=== PATIENT | female | born 1950 | race Caucasian/White ===

== ENCOUNTER 2023-06-18 13:06 | Outpatient (OUT) | payer OTHER, SELFPAY ==
--- NOTE | 2023-06-18 13:13 | XR_ITS ---
[address] [address] Patient Name: KERMIT ALBERT MRN: [id number] date: 1950 Sex: F Assigned Patient Location: [facility] Current Patient Location: [facility] Accession/Order Number: [id number] Exam Date: 06/18/2023 14:21 Report Date: 06/18/2023 14:49 At the request of: AZAM CALDWELL Procedure: XR chest 2V EXAM: XR chest 2V HISTORY: CAD COMPARISON: None. TECHNIQUE: PA and lateral views of the chest. FINDINGS: The cardiomediastinal silhouette is normal. No focal consolidation is identified. There is no pneumothorax. No pleural effusion is noted. The osseous structures are intact. XR/XR chest 2V IMPRESSION: No acute cardiopulmonary process. Electronically authenticated by: ROEL DYER Date: 06/18/2023 14:49
--- NOTE | 2023-06-18 13:13 | ECG_ITS ---
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
[2023-06-18 14:29] LABS: Basophils Percent Auto 0.9 % (0.2-2.0); Eosinophils Absolute Auto 0.1 10^3/uL (0.0-0.7); Eosinophils Percent Auto 1.4 % (0.9-7.0); Hemoglobin 14.1 g/dL (12.0-16.0); Immature Granulocytes Abs Auto 0.01 10^3/uL (0.00-0.03); Immature Granulocytes Pct Auto 0.3 % (0.0-0.5); Lymphocytes Absolute Auto 1.2 10^3/uL (1.2-3.8); Lymphocytes Percent Auto 35.4 % (20.5-60.0); Mean Corpuscular HGB Conc 33.6 g/dL (29.9-35.2); Mean Corpuscular Hemoglobin 30.6 pg (26.7-34.0); Mean Corpuscular Volume 91.1 fL (81.0-99.0); Mean Platelet Volume 10.7 fL (9.5-13.5); Monocytes Absolute Auto 0.3 10^3/uL (0.3-0.8); Monocytes Percent Auto 7.8 % (1.7-12.0); Neutrophils Absolute Auto 1.9 10^3/uL (1.4-6.5); Neutrophils Percent Auto 54.2 % (43.0-75.0); Platelet Count 209 10^3/uL (150-450); Red Blood Count 4.61 10^6/uL (4.20-5.40); Red Cell Distribution Width 12.4 % (11.0-15.0); White Blood Count 3.5 10^3/uL (4.0-11.0)
[2023-06-18 15:29] LABS: INR 0.97; Partial Thromboplastin Time 29.1 sec (22.3-36.2); Prothrombin Time 10.3 sec (9.0-11.6)
[2023-06-18 15:46] LABS: BUN Creatinine Ratio 21.9; Carbon Dioxide 28.2 mmol/L (21.0-32.0); Chloride 106 mmol/L (98-107); Estimated GFR (African America >60 (>=60); Estimated GFR (Non-African Ame >60 (>=60); Glucose 87 mg/dL (74-106); Potassium 4.2 mmol/L (3.5-5.1); Sodium 142 mmol/L (136-145)
== END 2023-06-18 13:07 | disposition home or self-care (01) ==
LOC: PST 13:06
PROVIDERS: Visit Provider Obstetrics & Gynecology
DX: Z01.812 Encounter for preprocedural laboratory examination (principal); Z01.810 Encounter for preprocedural cardiovascular examination; Z01.811 Encounter for preprocedural respiratory examination; R93.89 Abnormal findings on diagnostic imaging of other specified body structures; I25.10 Atherosclerotic heart disease of native coronary artery without angina pectoris
CPT/HCPCS: 36415; 71046; 80048; 85025; 85610; 85730; 93005

== ENCOUNTER 2023-06-30 11:22 | Day surgery (SDC) | payer OTHER, SELFPAY ==
[2023-06-18 13:37] VITALS: BP 154/78; PULSE 64; RESP 18; TEMP 36.4; O2SAT 96; BMI 24.1
[2023-06-30] VITALS (9 sets, daily range): BP systolic 139–170; BP diastolic 71–91; PULSE 60–84; RESP 14–20; TEMP 36.1–36.6; O2SAT 94–96; BMI 23.7
[2023-06-30 12:31] LABS: Basophils Percent Auto 0.5 % (0.2-2.0); Eosinophils Absolute Auto 0.1 10^3/uL (0.0-0.7); Eosinophils Percent Auto 1.2 % (0.9-7.0); Hematocrit 43.1 % (36.0-48.0); Hemoglobin 14.4 g/dL (12.0-16.0); Immature Granulocytes Abs Auto 0.02 10^3/uL (0.00-0.03); Immature Granulocytes Pct Auto 0.5 % (0.0-0.5); Lymphocytes Absolute Auto 1.8 10^3/uL (1.2-3.8); Lymphocytes Percent Auto 41.4 % (20.5-60.0); Mean Corpuscular HGB Conc 33.4 g/dL (29.9-35.2); Mean Corpuscular Hemoglobin 30.4 pg (26.7-34.0); Mean Corpuscular Volume 90.9 fL (81.0-99.0); Mean Platelet Volume 11.2 fL (9.5-13.5); Monocytes Absolute Auto 0.4 10^3/uL (0.3-0.8); Monocytes Percent Auto 8.5 % (1.7-12.0); Neutrophils Percent Auto 47.9 % (43.0-75.0); Platelet Count 246 10^3/uL (150-450); Red Blood Count 4.74 10^6/uL (4.20-5.40); Red Cell Distribution Width 12.3 % (11.0-15.0); White Blood Count 4.2 10^3/uL (4.0-11.0)
[2023-06-30] MEDS: LACTATED RINGER'S SOLUTION 1,000 ML 50 ML IV (12:39)
[2023-06-30] MEDS: LACTATED RINGER'S SOLUTION 1,000 ML 150 ML IV (14:07)
--- NOTE | 2023-06-30 14:19 | PM.ONB ---
Brief Operative Note Date of procedure: 06/30/23 Pre-op diagnosis: thickend lining, pelvic pain, dyspareunia Post-op diagnosis: same Procedure: NAME OF PROCEDURE: [ D&c hysteroscopy with myosure, dx laparoscopy with dayami] PROCEDURE: The patient was taken back to the OR where she was prepped and draped in the normal sterile fashion after being placed in the dorsal lithotomy position, after being placed under general anesthesia without difficulty. a weighted speculum was then placed into the vagina. Pap and endometrial bx were performed without difficultyThe anterior lip was grasped with a single tooth tenaculum. The patient was then sounded to approximatley 9cm. The patient was gently sounded using Hegar dilators and the hysteroscope was passed through the cervix into the uterus where both ostia were seen.The myosure was used to obtain directly visualized endometrial tissue. Ecc was performed. all instruments were removed from the patients vagina. A wet sponge stick was placed into the patient's vagina. Attention was then turned to the patient's abdomen, where a scalpel was used to make a small infraumbilical incision. The S retractors were then used to dissect the underlying layers until the fascia could be seen. The fascia was then grasped with Dell clamps and tented up. A knife was then used to make a small incision to the fascia. The muscle was identified, at that time two sutures of #0 Vicryl on a GI needlewas then used and placed through the fascia. The peritoneum was then identified and entered bluntly. The 10-4 Inocencio was then placed into the patient's abdomen. This was confirmed with direct visualization of the bowel, using the laparoscope. The patient's abdomen was then insufflated using approximately 4 liters of CO2 gas. Survey of the patient's abdomen demonstrated normal appearing ovaries, uterus and tubes. A lt lateral port which was 5mm in size, was then placed laterally after incision was made in the skin under direct visualization. lysis of omental adhesion from anterior abdominal wall was performed, normal appearing ovaries uterus and evidence of bilateral tubal ligation. The abdomen was deinsufflated. All instruments were removed from the patient's abdomen. The fascia was closed using the #0 Vicryl on GI needle. The skin was closed using 4-0 Vicryl subcuticularly. All instruments were removed from the patient's vagina as well. The patient was taken out of the dorsal lithotomy position and placed in the supine position and taken to recovery in stable condition. Sponge, lap and needle counts were correct x2. ??? Anesthesia: BRANT Surgeon: Ryley Marinelli Squaring Shear Operator: Leatha Mendoza Estimated blood loss (mL): 5 Pathology: other (endometrial and endocervical currettings) Condition: stable Disposition: PACU
[2023-06-30] MEDS: HYDROMORPHONE HCL 0.5 MG/0.5 ML SYRINGE IV (14:31)
== END 2023-06-30 15:31 | disposition home or self-care (01) ==
PROVIDERS: Visit Provider Obstetrics & Gynecology
PROC: (CPT 49320; principal; 2023-06-30 12:30)
DX: N94.10 Unspecified dyspareunia (principal); R10.2 Pelvic and perineal pain; R93.89 Abnormal findings on diagnostic imaging of other specified body structures; F41.9 Anxiety disorder, unspecified; Z85.3 Personal history of malignant neoplasm of breast; K21.9 Gastro-esophageal reflux disease without esophagitis; I10 Essential (primary) hypertension; I25.10 Atherosclerotic heart disease of native coronary artery without angina pectoris; E55.9 Vitamin D deficiency, unspecified; Z79.899 Other long term (current) drug therapy
CPT/HCPCS: 49320; 58558; 36415; 85025; 88305; J1170; J2704

== ENCOUNTER 2023-08-11 11:13 | Outpatient (OUT) | payer OTHER, SELFPAY ==
--- NOTE | 2023-08-11 11:29 | XR_ITS ---
[address] [address] Patient Name: KERMIT ALBERT MRN: [id number] date: 1950 Sex: F Assigned Patient Location: [facility] Current Patient Location: [facility] Accession/Order Number: [id number] Exam Date: 08/11/2023 11:20 Report Date: 08/11/2023 16:59 At the request of: AZAM CALDWELL Procedure: XR DEXA axial skeleton EXAMINATION: XR DEXA axial skeleton, 08/11/2023 11:20 AM EDT HISTORY: Post Menopausal State Z78.0 COMPARISON: 2020 TECHNIQUE: Dual-energy X-ray absorptiometry (DEXA) bone density study performed for the axial skeleton. HISTORY: Post Menopausal State Z78.0 FINDINGS: Bone mineral density AP spine L2-L4 measures 0.747 g/sq cm. T score -3.8. WHO classification: Osteoporosis. Total femoral bone mineral density measures 0.678 g/sq cm. T score -2.6. WHO classification: Osteoporosis XR/XR DEXA axial skeleton IMPRESSION: Osteoporosis. High fracture risk Electronically authenticated by: HARMAN LEMONS Date: 08/11/2023 16:59
== END 2023-08-11 11:14 | disposition home or self-care (01) ==
LOC: RAD 11:13
PROVIDERS: Visit Provider Obstetrics & Gynecology
DX: Z78.0 Asymptomatic menopausal state (principal); M81.0 Age-related osteoporosis without current pathological fracture
CPT/HCPCS: 77080

== ENCOUNTER 2024-05-18 20:05 | Outpatient (REF) | payer OTHER, SELFPAY ==
[2024-05-22 11:10] LABS: Age Gdln ACOG Testing Note (.); Pap IG (Image Guided) Note (.)
== END 2024-05-18 20:06 | disposition home or self-care (01) ==
LOC: LAB 20:05
PROVIDERS: Visit Provider Obstetrics & Gynecology
DX: Z01.419 Encounter for gynecological examination (general) (routine) without abnormal findings (principal)
CPT/HCPCS: 88175

== ENCOUNTER 2024-07-12 09:52 | Outpatient (OUT) | payer OTHER, SELFPAY ==
--- NOTE | 2024-07-12 09:55 | US_ITS ---
[address] [address] Patient Name: KERMIT ALBERT MRN: [id number] date: 1950 Sex: F Assigned Patient Location: [place] Current Patient Location: Accession/Order Number: [id number] Exam Date: 07/12/2024 09:56 Report Date: 07/14/2024 05:03 At the request of: ELEONORA FREY Procedure: US pelvis w/ transvaginal EXAMINATION: US pelvis w/ transvaginal HISTORY: Menorrhagia With Regular Cycle N92.0 COMPARISON: No relevant comparison available. TECHNIQUE: Transabdominal and/or transvaginal sonographic examination was performed as indicated by examination type. FINDINGS: UTERUS: Rounded heterogeneous masslike area with a few peripheral calcifications within the cervix, 1.0 x 1.0 x 1.0 cm. No appreciable internal blood flow on color Doppler so this could represent a complex nabothian cyst. Uterus size: 4.4 x 2.5 x 3.6 cm ENDOMETRIUM: Abnormally thickened and slightly heterogeneous. Endometrial thickness: 16 mm RIGHT OVARY: Not seen. No suspicious adnexal findings. LEFT OVARY: Not seen. No suspicious adnexal findings. . CUL-DE-SAC: Unremarkable. No significant free fluid. BLADDER: Unremarkable. OTHER: None. US/US pelvis w/ transvaginal IMPRESSION: 1. Abnormal endometrial thickening; endometrial hyperplasia versus neoplasm. 2. Within the cervix is a 1.0 cm mass versus complex cyst. Appearance favors a mass. Electronically authenticated by: IDALIA GUEVARA Date: 07/14/2024 05:03
--- NOTE | 2024-07-12 10:00 | US_ITS ---
Patient Name: KERMIT ALBERT MR#: [id number] : 1950 Exam Date: 07/12/2024 Ordering Doctor: DIEGO Kebede . RADIOLOGY REPORT PROCEDURE: US BREAST BI COMPLETE COMPARISON: None. INDICATIONS: Breast Cancer Screening, Disorder Of Breast TECHNIQUE: Breast ultrasound was performed, with evaluation focusing only on specific areas of concern. FINDINGS: DIAGNOSTIC CATEGORY 0--INCOMPLETE: NEED ADDITIONAL IMAGING EVALUATION. Identified at the 10 o'clock position of the right breast is increase in size of ill-defined hypoechogenicity now measuring 1.0 x 0.4 x 0.5 cm with acoustic shadowing. Adjacent to this area is what appears to be a normal-size normal morphology lymph node measuring 4.1 mm. Mammogram follow-up is recommended Ultrasound of the left breast demonstrates no focal abnormality RECOMMENDATIONS: ADDITIONAL MAMMOGRAPHIC VIEWS REQUIRED: BILATERAL diagnostic mammogram PLEASE NOTE: A NORMAL ULTRASOUND EXAMINATION DOES NOT EXCLUDE THE POSSIBILITY OF BREAST CANCER. A CLINICALLY SUSPICIOUS PALPABLE LUMP SHOULD BE BIOPSIED. Dictated by: Riccardo Venegas MD on 07/12/2024 at 11:07 Approved by: Riccardo Venegas MD on 07/12/2024 at 11:10
[2024-07-12 11:38] LABS: Basophils Percent Auto 0.4 % (0.2-2.0); Eosinophils Absolute Auto 0.1 10^3/uL (0.0-0.7); Eosinophils Percent Auto 1.8 % (0.9-7.0); Hemoglobin 13.4 g/dL (12.0-16.0); Lymphocytes Absolute Auto 1.7 10^3/uL (1.2-3.8); Lymphocytes Percent Auto 37.5 % (20.5-60.0); Mean Corpuscular HGB Conc 33.5 g/dL (29.9-35.2); Mean Corpuscular Hemoglobin 30.6 pg (26.7-34.0); Mean Corpuscular Volume 91.3 fL (81.0-99.0); Mean Platelet Volume 10.5 fL (9.5-13.5); Monocytes Absolute Auto 0.3 10^3/uL (0.3-0.8); Monocytes Percent Auto 6.1 % (1.7-12.0); Neutrophils Absolute Auto 2.4 10^3/uL (1.4-6.5); Neutrophils Percent Auto 54.2 % (43.0-75.0); Platelet Count 217 10^3/uL (150-450); Red Blood Count 4.38 10^6/uL (4.20-5.40); Red Cell Distribution Width 12.4 % (11.0-15.0); White Blood Count 4.5 10^3/uL (4.0-11.0)
[2024-07-12 11:49] LABS: Estimated Average Glucose 105 mg/dL; Glycohemoglobin A1C 5.3 % (4.5-6.2)
[2024-07-12 12:00] LABS: Partial Thromboplastin Time 31.8 sec (22.3-36.2); Prothrombin Time 10.6 sec (9.0-11.6)
[2024-07-12 12:31] LABS: Free T4 0.81 ng/dL (0.76-1.46)
[2024-07-12 12:37] LABS: Thyroid Stimulating Hormone 2.668 uIU/mL (0.358-3.740)
[2024-07-12 12:40] LABS: HCG Quantitative <1 mIU/mL
== END 2024-07-12 09:53 | disposition home or self-care (01) ==
LOC: US 09:52
PROVIDERS: Visit Provider Physician Assistant
DX: N92.0 Excessive and frequent menstruation with regular cycle (principal); N93.0 Postcoital and contact bleeding; N64.9 Disorder of breast, unspecified; R19.00 Intra-abdominal and pelvic swelling, mass and lump, unspecified site
CPT/HCPCS: 36415; 76641; 76830; 76856; 83036; 84439; 84443; 84702; 85025; 85610; 85730; 86304

== ENCOUNTER 2024-09-10 10:48 | Outpatient (OUT) | payer OTHER, SELFPAY ==
--- NOTE | 2024-09-10 10:53 | XR_ITS ---
The [address] [address] Patient Name: KERMIT ALBERT MRN: [id number] date: 1950 Sex: F Assigned Patient Location: [facility] Current Patient Location: Accession/Order Number: [id number] Exam Date: 09/10/2024 11:38 Report Date: 09/12/2024 06:19 At the request of: AZAM CALDWELL Procedure: XR chest 2V EXAMINATION: XR chest 2V HISTORY: Preop exam COMPARISON: XR chest 06/18/2023 FINDINGS: LUNGS: No significant pulmonary parenchymal abnormalities. VASCULATURE: No increased pulmonary vasculature. PLEURA: No pneumothorax, effusion, or pleural thickening. CARDIAC: No cardiomegaly or cardiac silhouette abnormality. MEDIASTINUM: No visible mass or adenopathy. BONES: Kyphotic curvature thoracic spine. OTHER: Negative. XR/XR chest 2V IMPRESSION: 1. No acute cardiopulmonary process. Stable chest. Electronically authenticated by: IDALIA GUEVARA Date: 09/12/2024 06:19
--- NOTE | 2024-09-10 10:53 | ECG_ITS ---
The [facility] Test Date: 2024-09-10 Pat Name: KERMIT ALBERT Department: Room: - Gender: Female Rippler: : 1950 Requested By: AZAM CALDWELL Order Number: [id number] Reading MD: RAFAEL BUNCH Measurements Intervals [place] Rate: 59 P: 50 [place]: 171 QRS: 30 QRSD: 90 T: 55 QT: 420 QTc: 417 Interpretive Statements SINUS BRADYCARDIA Compared to ECG 06/18/2023 13:58:14 No significant changes Electronically Signed On 09-10-2024 18:34:23 EDT by RAFAEL BUNCH
--- OUTSIDE RECORDS SUMMARY | 2024-09-10 10:53 | XMS_ITS | CCD ---
Author Organization [facility] Care Team Providers Care Database Programmer Analyst Name Role Phone CRIS VALENZUELA Unavailable Unavailable CRIS VALENZUELA Unavailable Unavailable CRIS VALENZUELA Unavailable Unavailable Cristin Roblero Unavailable Unavailable Unavailable Malinda Rubio Primary Care Physician [phone] TYRELL ., DR DELGADO Consulting Unavailabl e KARASIK ., DR DELGADO Attending Unavailabl e KARASIK ., DR DELGADO Admitting Unavailabl e QUINCYK ., DR DELGADO Attending Unavailabl e QUINCYK ., DR DELGADO Admitting Unavailashish TODD, DR DANNY Murphy Primary Care Unavailable KARASIK ., DR DELGADO Consulting Unavailabl e KARBESSIEK ., DR DELGADO Attending Unavailabl e KARBESSIEK ., DR DELGADO Admitting Unavailashish TODD, DR DANNY Murphy Primary Care Unavailable PAOLA, DR IDALIA Smith Consulting Unavailable PEREZ, DR DANNY Murphy Consulting Unavailable KARASIK ., DR DELGADO Attending Unavailabl e KARBESSIEK ., DR DANNY Ericksonitting Unavailashish TODD, DR DANNY Murphy Primary Care Unavailable KARASIK ., DR DELGADO Consulting Unavailabl e PAOLA, DR IDALIA Smith Consulting Unavailable Osbaldo SEWELL Cristin M Primary Care Provider ANIKA De La Rosa Primary Care Provide r MD Jay Jay Mariscal Attending Provider Camryn De La Rosa Unavailable [phone] Ms. Camryn De La Rosa Primary Care Unava ilford Mariscal, Dr. Jay Jay Lewis Attending Kimberley vailable Davey, Dr. Jay Jay Lewis Referring Kimberley vailable Camryn De La Rosa Primary Care Physician Vilma Mcallister Primary Care Physician Ryley Marinelli Attending Provider aggieANIKA Camryn Murry Primary Care Provide r Camryn De La Rosa Primary Care Unavailab Ryley Kennedy Admitting Unavailable Ryley Marinelli Attending Unavailable Camryn De La Rosa Primary Care Unavailab Jay Jay Vicente Admitting Unavailable Jay Jay Mariscal Attending Unavailable Vilma Mcallister Attending Unavailable Shayla Mcallisterbeth Miguel Admitting Unavailable Shayla Mcallisterbetisha Rivera Attending Unavailable Esvin Vilma L Admitting Unavailable Esvin, Vilma L Admitting Unavailable Bhavna Mcallisterzabeth Miguel Attending Unavailable Bhavna Mcallisterzabeth L Attending Unavailable Esvin, Vilma L Admitting Unavailable Bhavna Mcallisterzabeth Miguel Attending Unavailable Esvin, Vilma L Admitting Unavailable Esvin, Vilma L Attending Unavailable TRACI De La Rosa Admitting Kimberley vailable TRACI De La Rosa Attending Kimberley vailable Shayla Mcallisterbeth Miguel Attending Unavailable Esvin, Vilma L Referring Unavailable Esvin, Vilma L Admitting Unavailable Esvin, Vilma L Attending Unavailable Esvin, Vilma L Referring Unavailable Esvin, Vilma L Admitting Unavailable Bhavna Mcallisterzabeth Miguel Attending Unavailable Esvin, Vilma L Attending Unavailable Esvin, Vilma L Attending Unavailable Esvin, Vilma L Referring Unavailable Esvin, Vilma L Admitting Unavailable Scott Tomas V. Attending UnavailTRACI Denny Attending Unav ailable Vilma Mcallister Attending Unavailable TRACI De La Rosa Attending Kimberley vailable TRACI De La Rosa Attending Kimberley vailable Shayla Mcallisterbeth L Attending Unavailable Bhavna Mcallisterzabeth Miguel Attending Unavailable Esvin, Vilma L Attending Unavailable Esvin, Vilma L Attending Unavailable Esvin, Vilma L Attending Unavailable Vilma Mcallister Attending Unavailable Vilma Mcallister Attending Unavailable Vilma Mcallister Attending Unavailable NORMA VARGAS Attending Unavailable RYLEY MARINELLI Attending Unavailable ELEONORA FRYE Attending Unavailable LAWRENCE ROQUE Attending Unavailable RYLEY MARINELLI Attending Unavailable NORMA VARGAS Attending Unavailable Allergies Allergy Classification Reported Allergen(s) Allergy Type Date of Onset Reaction(s) Facility Angiotensin Converting Enzyme (CARMELINA) Inhibitors (2 sources) Lisinopril; Translations: [lisinopril] Drug Allergy Unknown (qualifier value) [facility] Doxycycline (2 sources) Doxycycline; Translations: [doxycycline] Drug Allergy Mycosis (disorder) [facility] hydroCHLOROthiazide (2 sources) hydroCHLOROthiazide; Translations: [hydrochlorothiazide] Drug Allergy Disorder of electrolytes (disorder) [facility] Hydroflumethiazide (1 source) Hydroflumethiazide; Translations: [hydroflumethiazide] Drug Allergy [facility] Rep[facility] NSAIDs (4 sources) Diclofenac; Translations: [diclofenac] Drug Allergy Hypertensive disorder, systemic arterial (disorder) [facility] [place] Propranolol (2 sources) Propranolol; Translations: [propranolol] Drug Allergy hives [facility] Serotonin Reuptake Inhibitors (SSRIs) (4 sources) Citalopram; Translations: [citalopram] Drug Allergy Unknown (qualifier value) [facility] Unclassified (2 sources) No Known Medication Allergies; Translations: [No Known Medication Allergies] Propensity to adverse reactions (disorder) [facility] Repository (7 sources) atorvastatin; Translations: [atorvastatin] Drug Allergy [facility] [employer] 250 DO Work Phone: (20 sources) Citalopram; Translations: [CeleXA TABS] Drug Allergy 021 Unknown (qualifier value), Unknown [facility] [employer] 250 DO Work Phone: (20 sources) Diclofenac; Translations: [diclofenac] Drug Allergy Hypertensive disorder, [facility]: (20 sources) Doxycycline; Translations: [doxycycline] Drug Allergy Mycosis (disorder), Unknown [facility] [employer] 250 DO Work Phone: (20 sources) hydroCHLOROthiazide; Translations: [hydrochlorothiazide] Drug Allergy Disorder of electrolytes (disorder) [facility] [employer] 250 DO Work Phone: (20 sources) Lisinopril; Translations: [lisinopril] Drug Allergy Unknown (qualifier value), Intolerance [facility] [employer] 250 DO Work Phone: (20 sources) Propranolol; Translations: [propranolol] Drug Allergy hives, Unknown Reaction [facility] [employer] 250 DO Work Phone: (2 sources) Diclofenac; Translations: [diclofenac sodium] Drug Allergy Intolerance [facility] (1 source) Thiazides Propensity to adverse reactions to drug Unknown [facility] (3 sources) Citalopram; Translations: [citalopram] Drug Allergy Muscle Pain [facility] (1 source) hydroCHLOROthiazide Drug Allergy [facility] (1 source) Lisinopril Drug Allergy [facility] (1 source) Propranolol Drug Allergy [facility] (1 source) Citalopram; Translations: [Citalopram Hydrobromide] Drug Allergy [facility] Rep[facility] (1 source) Citalopram; Translations: [CeleXA] Drug Allergy [facility] (1 source) Diclofenac; Translations: [Voltaren Topical] Drug Allergy [facility] Rep[facility] (1 source) Hydroflumethiazide; Translations: [hydroflumethiazide] Drug Allergy [facility] Rep[facility] Medications Current Medications Medication Drug Class(es) Dates Sig (Normalized) Sig (Original) Albuterol (Eqv-Ventolin HFA) 90 mcg/inh inhalation aerosol (2 sources) Start: 09-04-2023 take 2 puff(s) by inhalation every six hours Albuterol (Eqv-Ventolin HFA) 90 mcg/inh inhalation aerosol 2 puff(s), Inhalation, q6hr, 18 gm, Refill(s) 0, [facility], 154, cm, 09/04/23 9:44:00 EDT, Height/Length Dosing, 56.1, kg, 09/04/23 9:44:00 EDT, Weight Dosing Start Date: 09/04/23 Status: Ordered ALPRAZolam 0.25 mg oral tablet (20 sources) Benzodiazepine Start: 09-26-2023 take 1 tablet by mouth once daily as needed alprazolam 0.25 mg Tab 0.25 mg = 1 tab(s), Oral, Daily, PRN for insomnia, # 12 tab(s), Refills(s) 0, Pharmacy: [facility], 154, cm, 09/26/23 9:41:00 EDT, Height/Length Dosing, 57.6, kg, 09/26/23 9:41:00 EDT, Weight Dosing Start Date: 09/26/23 Status: Ordered Start: 11-09-2020 End: 12-11-2022 take 1 tablet by mouth once daily as needed ALPRAZolam 0.25 MG Oral Tablet TAKE 1 TABLET DAILY NEEDED. Quantity: 0 Refills: 0 Ordered: 09-Nov-2020 DO Start : 09-Nov-2020 Active Start: 07-29-2019 End: 07-29-2019 take 0.5 mg by mouth three times daily Alprazolam Active 0.5 MG PO Three times daily 0 July 29, 2019 2:10pm Comment on above: Take 0.25 mg by mout h as needed. amLODIPine 5 mg oral tablet (2 sources) Dihydropyridine Calcium Channel Vishnu Start: 9 take 1 tablet by mouth once daily amLODIPine 5 mg Tab 5 mg = 1 tab(s), Oral, Daily, # 30 tab(s), Refills(s) 0, High blood pressure Start Date: 11/15/19 Status: Ordered aspirin 81 mg oral tablet (20 sources) Platelet Aggregation Inhibitor, Nonsteroidal Anti-inflammatory Drug Start: 9 take 1 tablet by mouth once daily aspirin 81 mg oral tablet = 1 tab(s), Oral, Daily, Refills(s) 0 Start Date: 01/26/21 Status: Ordered Aspirin 81 MG Or al Tablet Delayed Release 1 tablet Friday and Friday Quantity: 45 Refills: 3 Ordered: 15-Jul-2023 Jay Jay Mariscal MD Active fill if needed Comment on above: Take 81 mg by mouth once daily. azithromycin 250 mg oral tablet (1 source) Macrolide Antimicrobial Start: End: Zithromax 250 mg Tab = 1 packet(s), Oral, As Directed, as directed on package labeling, X 5 day(s), # 6 tab(s), Refills(s) 0, Pharmacy: [facility], 154, cm, 09/24/22 12:01:00 EDT, Height/Length Dosing, 56.5, kg, 09/24/22 12:01:00 EDT, Weight Dosing Start Date: 09/24/22 Stop Date: 09/29/22 Status: Ordered benzonatate 100 mg oral capsule (1 source) Non-narcotic Antitussive Start: End: take 1 capsule by mouth three times daily Tessalon 100 mg Cap 100 mg = 1 cap(s), Oral, TID, X 7 day(s), # 21 cap(s), Refills(s) 0, Pharmacy: [facility], 154, cm, 12/17/22 11:54:00 EST, Height/Length Dosing, 57, kg, 12/17/22 11:54:00 EST, Weight Dosing Start Date: 12/17/22 Stop Date: 12/24/22 Status: Ordered brompheniramine maleate 0.4 mg/ml / dextromethorphan hydrobromide 2 mg/ml / pseudoephedrine hydrochloride 6 mg/ml oral solution (20 sources) alpha-Adrenergic Agonist, Uncompetitive N-xbovqx-B-aspartate Receptor Antagonist, Sigma-1 Agonist Start: take 5 mL by mouth four times daily for cough and congestion Bromfed DM oral syrup 5 mL, Oral, QID for cough and congestion, 200 mL, Refill(s) 0, [facility], 154, cm, 04/14/24 9:52:00 EDT, Height/Length Dosing, 56, kg, 04/14/24 9:52:00 EDT, Weight Dosing Start Date: 04/14/24 Status: Ordered Elderberry Gummies with Vitamin C and Zinc (5 sources) Start: 024 Elderberry Gummies with Vitamin C and Zinc 1 tablet, Chewed, Daily, Refill(s) 0 Start Date: 05/12/24 Status: Ordered Elderberry preparation (7 sources) Start: 023 elderberry Refill(s) 0 Start Date: 10/30/23 Status: Ordered estradiol 0.1 mg/ml vaginal cream (2 sources) Estrogen Start: 021 Estrace 0.1 mg/g Cream See Instructions, 42.5 gm, Refill(s) 0, 0.5 to 1 gm Vaginal 1-2 x per week at bed time., [facility], 155, cm, 12/12/20 12:23:00 EST, Height/Length Dosing, 58.6, kg, 12/12/20 12:23:00 EST, Weight Dosing Start Date: 12/12/20 Status: Ordered Fish Oils (2 sources) Start: 019 take 1 capsule by mouth twice daily Fish Oil 1000 mg oral capsule 1,000 mg = 1 cap(s), Oral, BID, Refills(s) 0, Prophylaxis Start Date: 04/27/19 Status: Ordered fluconazole 100 mg oral tablet (2 sources) Azole Antifungal Start: 023 Diflucan 100 mg Tab 100 mg = 1 tab(s), Oral, Daily, take once if needed and may repeat if needed, # 2 tab(s), Refills(s) 0, Pharmacy: [facility], 154, cm, 09/04/23 9:44:00 EDT, Height/Length Dosing, 56.1, kg, 09/04/23 9:44:00 EDT, Weight Dosing Start Date: 09/04/23 Status: Ordered Garlic preparation (20 sources) Non-Standardized Food Allergenic Extract Start: 022 Garlic See Instructions, 1 tab daily OTC Start Date: 09/12/22 Status: Ordered H-HTP 100 mg (1 source) Start: H-HTP 100 mg H-HTP 100 mg, See Instructions, 5-HTP 100mg (Neurotransmitter Support). For Depression Start Date: 07/09/24 Status: Ordered hydrOXYzine hydrochloride 50 mg oral tablet (1 source) Antihistamine Start: take 1 tablet by mouth four times daily as needed for anxiety, then take 0.5 tablet by mouth every hour as needed for anxiety hydrOXYzine hydrochloride 50 mg oral tablet 50 mg = 1 tab(s), Oral, QID, PRN for anxiety, Can cut tab in half if needed Take 1 hr prior to bed, # 40 tab(s), Refills(s) 1, Pharmacy: [facility], 154, cm, 08/19/23 11:14:00 EDT, Height/Length Dosing, 58, kg, 08/19/23 11:14:00 EDT, Weigh... Start Date: 08/19/23 Status: Ordered ibuprofen 800 mg oral tablet (10 sources) Nonsteroidal Anti-inflammatory Drug Start: take 1 tablet by mouth three times daily as needed for pain ibuprofen 800 mg Tab 800 mg = 1 tab(s), Oral, TID, PRN for pain, # 90 tab(s), Refills(s) 0, Pharmacy: [facility] 1985 Start Date: 07/09/19 Status: Ordered Iodine (14 sources) Start: 023 iodine Refills(s) 0 Start Date: 10/30/23 Status: Ordered Ivermectin (9 sources) Antiparasitic, Pediculicide Start: take 12 mg by mouth once ivermectin 12 mg, Oral, Once, Refills(s) 0 Start Date: 04/14/24 Status: Ordered Start: 03-01-2021 take 3 tablets by mouth once i vermectin 3 mg oral tablet 9 mg = 3 tab(s), Oral, Once, # 3 tab(s), Refills(s) 0, Pharmacy: [facility] 1985, 154.9, cm, 02/19/21 14:27:00 EDT, Height/Length Dosing, 57, kg, 02/19/21 14:27:00 EDT, Weight Dosing Start Date: 03/01/21 Status: Ordered ketoconazole 10 mg/ml medicated shampoo (8 sources) Azole Antifungal Start: 09-12-2022 ketoconazole topical 1% shampoo 1 christiano, Topical, q3day, 210 mL, Refill(s) 1, [facility], 154, cm, 09/12/22 10:34:00 EDT, Height/Length Dosing, 56.4, kg, 09/12/22 10:34:00 EDT, Weight Dosing Start Date: 09/12/22 Status: Ordered levoFLOXacin 750 mg oral tablet (2 sources) Quinolone Antimicrobial Start: 05-06-2024 End: 05-13-2024 take 1 tablet by mouth once daily Levaquin 750 mg Tab 750 mg = 1 tab(s), Oral, Daily, X 7 day(s), # 7 tab(s), Refills(s) 0, Pharmacy: [facility] 1985, 154, cm, 05/06/24 15:09:00 EDT, Height/Length Dosing, 55.1, kg, 05/06/24 15:22:00 EDT, Weight Dosing Start Date: 05/06/24 Stop Date: 05/13/24 Status: Ordered levothyroxine sodium 0.075 mg oral tablet (2 sources) l-Thyroxine Start: 07-29-2019 take 75 ug by mouth once daily Levothyroxine Active 75 MCG PO Daily July 28, 2019 11:00pm losartan potassium 50 mg oral tablet (16 sources) Angiotensin 2 Receptor Vishnu Start: 10-06-2019 take 1 tablet by mouth twice daily losartan 50 mg Tab 50 mg = 1 tab(s), Oral, BID, # 60 tab(s), Refills(s) 5, Pharmacy: [facility] 1985 Start Date: 10/06/19 Status: Ordered Start: 07-29-2019 take 50 mg by mouth once daily Losartan Active 50 MG PO Daily July 28, 2019 11:00pm Comment on above: Take 50 mg by mouth once daily. magnesium amino acid chelate (16 sources) Start: 023 magnesium amino acids chelate Refills(s) 0 Start Date: 09/04/23 Status: Ordered meclizine hydrochloride 12.5 mg oral tablet (2 sources) Antiemetic Start: 021 take 1 tablet by mouth three times daily as needed for dizziness Antivert 12.5 mg Tab 12.5 mg = 1 tab(s), Oral, TID, PRN for dizziness, # 30 tab(s), Refills(s) 0, Pharmacy: [facility], 155, cm, 12/12/20 12:23:00 EST, Height/Length Dosing, 58.6, kg, 12/12/20 12:23:00 EST, Weight Dosing Start Date: 12/12/20 Status: Ordered methylPREDNISolone 4 mg oral tablet (2 sources) Corticosteroid Start: End: Medrol 4 mg Tab = 1 packet(s), Oral, As Directed, as directed on package labeling, X 6 day(s), # 21 tab(s), Refills(s) 0, Pharmacy: [facility], 154, cm, 04/14/24 9:52:00 EDT, Height/Length Dosing, 56, kg, 04/14/24 9:52:00 EDT, Weight Dosing Start Date: 04/14/24 Stop Date: 04/20/24 Status: Ordered Start: 09-17-2022 End: 09-23-2022 Medrol 4 mg Tab = 1 packet(s ), Oral, As Directed, as directed on package labeling, X 6 day(s), # 21 tab(s), Refills(s) 0, Pharmacy: [facility], 154, cm, 09/12/22 10:34:00 EDT, Height/Length Dosing, 56.4, kg, 09/12/22 10:34:00 EDT, Weight Dosing Start Date: 09/17/22 Stop Date: 09/23/22 Status: Ordered 24 hr metoprolol succinate 50 mg extended release oral tablet (20 sources) beta-Adrenergic Vishnu Start: 07-29-2019 take 1 tablet by mouth once daily metoprolol 50 mg ER Tab 50 mg = 1 tab(s), Oral, Daily, # 30 tab(s), Refills(s) 0, High blood pressure Start Date: 10/06/19 Status: Ordered Comment on above: Take 50 mg by mouth once daily. mupirocin 0.02 mg/mg topical ointment (11 sources) RNA Synthetase Inhibitor Antibacterial Start: 07-09-2024 mupirocin Top 2% Oint 1 christiano, Topical, BID Diabetic, 30 gram, Refill(s) 0, [facility], 154, cm, 07/09/24 9:47:00 EDT, Height/Length Dosing, 54.2, kg, 07/09/24 9:47:00 EDT, Weight Dosing Start Date: 07/09/24 Status: Ordered Start: 10-30-2023 mupirocin Top 2% Oint 1 christiano, Topical, TID, 30 gram, Refill(s) 1, [facility], 154, cm, 10/30/23 9:48:00 EST, Height/Length Dosing, 57.8, kg, 10/30/23 9:48:00 EST, Weight Dosing Start Date: 10/30/23 Status: Ordered Start: 03-22-2021 mupirocin Top 2% Oint 1 christiano, Topical, TID nasal sore., 15 gm, Refill(s) 0, [facility], 154.9, cm, 03/22/21 9:27:00 EDT, Height/Length Dosing, 57.7, kg, 03/22/21 9:27:00 EDT, Weight Dosing Start Date: 03/22/21 Status: Ordered NAC Detox Regulators (13 sources) Start: 01-15-2024 take 500 ug by mouth once daily NAC Detox Regulators NAC Detox Regulators, Oral, Daily, Selenium 500 mcg, Molybdenum 50 mcg, and N-Acetylcysteine 600 mg Start Date: 01/15/24 Status: Ordered nitroglycerin 0.4 mg sublingual tablet (6 sources) Nitrate Vasodilator Start: 07-29-2019 Nitroglycerin Active 0.4 MG SUBLINGUAL Q5M July 28, 2019 11:00pm until response; do not exceed 3 doses per episode omeprazole 40 mg delayed release oral capsule (2 sources) Proton Pump Inhibitor Start: 02-28-2020 take 1 capsule by mouth once daily omeprazole 40 mg Cap-DR 40 mg = 1 cap(s), Oral, Daily, # 30 cap(s), Refills(s) 2, Pharmacy: [facility], 155.2, cm, 02/07/20 13:54:00 EDT, Height/Length Measured, 60.7, kg, 02/07/20 13:54:00 EDT, Weight Measured Start Date: 02/28/20 Status: Ordered predniSONE 20 mg oral tablet (1 source) Start: 12-17-2022 End: 12-22-2022 take 2 tablets by mouth twice daily predniSONE 20 mg Tab 40 mg = 2 tab(s), Oral, BID, X 5 day(s), # 20 tab(s), Refills(s) 0, Pharmacy: [facility], 154, cm, 12/17/22 11:54:00 EST, Height/Length Dosing, 57, kg, 12/17/22 11:54:00 EST, Weight Dosing Start Date: 12/17/22 Stop Date: 12/22/22 Status: Ordered Promethazine (6 sources) Phenothiazine Start: 09-17-2022 take 5 mL by mouth every six hours for cough Promethazine DM oral syrup 5 mL, Oral, q6hr for cough, 120 mL, Refill(s) 0, [facility], 154, cm, 09/12/22 10:34:00 EDT, Height/Length Dosing, 56.4, kg, 09/12/22 10:34:00 EDT, Weight Dosing Start Date: 09/17/22 Status: Ordered raNITIdine 150 mg oral tablet (2 sources) Histamine-2 Receptor Antagonist Start: 07-29-2019 take 150 mg by mouth twice daily Ranitidine Hcl Active 150 MG PO Twice daily July 28, 2019 11:00pm sertraline 50 mg oral tablet (20 sources) Serotonin Reuptake Inhibitor Start: 12-04-2023 take 1 tablet by mouth once daily sertraline 50 mg Tab 50 mg = 1 tab(s), Oral, Daily, # 90 tab(s), Refills(s) 1, Pharmacy: [facility], 154, cm, 10/30/23 9:48:00 EST, Height/Length Dosing, 57.8, kg, 10/30/23 9:48:00 EST, Weight Dosing Start Date: 12/04/23 Status: Ordered Start: 10-10-2021 take 1 tablet by albert th once daily sertraline 50 mg Tab 50 mg = 1 tab(s), Oral, Daily, # 90 tab(s), Refills(s) 1, Pharmacy: [facility], 154, cm, 01/17/23 10:18:00 EST, Height/Length Dosing, 58.7, kg, 01/17/23 10:18:00 EST, Weight Dosing Start Date: 05/21/23 Status: Ordered Start: 07-29-2019 take 100 mg by mouth once daily Sertraline Active 100 MG PO Daily July 28, 2019 11:00pm Comment on above: Take 100 mg by mouth once daily. sodium chloride 0.111 meq/ml nasal spray (10 sources) Start: 01-25-2022 [place] Saline Mist 0.65% nasal spray 2 spray(s), Nasal, QID, 1 EA, Refill(s) 1, [facility], 154, cm, 01/25/22 11:10:00 EST, Height/Length Dosing, 57.2, kg, 01/25/22 11:10:00 EST, Weight Dosing Start Date: 01/25/22 Status: Ordered spacer (16 sources) Start: 09-04-2023 spacer spacer, See Instructions, 1 EA, 1, please dispense an adult mdi spacer chamber, [facility], Supply, 154, cm, 09/04/23 9:44:00 EDT, Height/Length Dosing, 56.1, kg, 09/04/23 9:44:00 EDT, Weight Dosing Start Date: 09/04/23 Status: Ordered thyroid (fdc) 30 mg oral tablet (20 sources) Start: 02-06-2024 take 1 tablet by mouth once daily [place] Thyroid 30 mg Tab 30 mg = 1 tab(s), Oral, Daily, no Generic substitutions please -, # 30 tab(s), Refills(s) 6, Pharmacy: [id number], 154, cm, 02/06/24 10:48:00 EST, Height/Length Dosing, 57.5, kg, 02/06/24 10:48:00 EST, Weight Dosing Start Date: 02/06/24 Status: Ordered Start: 09-26-2023 take 1 tablet by albert th once daily [place] Thyroid 30 mg Tab 30 mg = 1 tab(s), Oral, Daily, # 90 tab(s), Refills(s) 3, Pharmacy: [facility], 154, cm, 09/26/23 9:41:00 EDT, Height/Length Dosing, 57.6, kg, 09/26/23 9:41:00 EDT, Weight Dosing Start Date: 09/26/23 Status: Ordered Start: 11-09-2020 take 1 tablet by albert once daily [place] Thyroid 30 mg Tab 30 mg = 1 tab(s), Oral, Daily, # 30 tab(s), Refills(s) 5, Pharmacy: [facility], 154, cm, 01/17/23 10:18:00 EST, Height/Length Dosing, 58.7, kg, 01/17/23 10:18:00 EST, Weight Dosing Start Date: 05/12/23 Status: Ordered Comment on above: Take 30 mg by mouth once daily. Turmeric Curcumin Oral Capsule (2 sources) Start: 04-27-2019 take 1 capsule by mouth once daily Turmeric Curcumin Oral Capsule Turmeric Curcumin Oral Capsule, 1 tab, Oral, Daily Start Date: 04/27/19 Status: Ordered Ventolin HFA 90 mcg/inh Aerosol-Adpt (20 sources) Start: 12-17-2022 take 2 puff(s) by inhalation four times daily for wheezing Ventolin HFA 90 mcg/inh Aerosol-Adpt 2 puff(s), Inhalation, QID for wheezing, 18 gram, Refill(s) 0, [facility], 154, cm, 12/17/22 11:54:00 EST, Height/Length Dosing, 57, kg, 12/17/22 11:54:00 EST, Weight Dosing Start Date: 12/17/22 Status: Ordered Vitamin C 500 mg oral tablet, chewable (20 sources) Start: 04-27-2019 take 1 tablet by mouth once daily Vitamin C 500 mg oral tablet, chewable 500 mg = 1 tab(s), Chewed, Daily, Refills(s) 0, Prophylaxis Start Date: 04/27/19 Status: Ordered vitamin K2 (16 sources) Start: 09-04-2023 Vitamin K2 Refill(s) 0 Start Date: 09/04/23 Status: Ordered zinc acetate 50 mg oral capsule (20 sources) Start: 09-12-2022 take 1 capsule by mouth once daily zinc acetate 50 mg oral capsule 50 mg = 1 cap(s), Oral, Daily, on an empty stomach 1 hour before or 2 hours after eating Start Date: 09/12/22 Status: Ordered Completed/Discontinued Medications Medication Drug Class(es) Dates Sig (Normalized) Sig (Original) atorvastatin 10 mg oral tablet (5 sources) HMG-CoA Reductase Inhibitor Start: 10-11-2021 take 1 tablet by mouth at bedtime Atorvastatin Calcium 10 MG Oral Tablet TAKE 1 TABLET AT BEDTIME. Quantity: 90 Refills: 3 Ordered: 11-Oct-2021 Jay Jay Mariscal MD Start : 11-Oct-2021 Active Start: 07-29-2019 take 1 tablet by albert th once daily Atorvastatin (Lipitor) 40 mg tablet Active 40 MG PO Daily July 28, 2019 11:00pm famotidine 20 mg oral tablet (1 source) Histamine-2 Receptor Antagonist take 1 tablet by mouth twice daily famotidine (PEPCID) 20 mg tablet Take 20 mg by mouth twice daily. 0 Active Comment on above: Take 20 mg by mouth twice daily. Garlique 400 MG Oral Tablet Delayed Release (1 source) take 1 tablet by mouth once daily Garlique 400 MG Oral Tablet Delayed Release TAKE 1 TABLET DAILY. Quantity: 0 Refills: 0 Ordered: 16-Jul-2022 DO Active Nitric Oxide Foundation (13 sources) Start: 01-15-20 Nitric Oxide [facility] Nitric Oxide Foundation, 2 tab(s), Oral, Daily, Vitamin C 290 mg, Thiamin 90mg, B12 200 mcg, Magnesium 75 mg, Potassium 189 mg, 500mg (postassium nitrate, beet root extract and fermented beet root powder). For Circulatory Support Start Date: 01/15/24 Status: Ordered rosuvastatin calcium 10 mg oral tablet (3 sources) HMG-CoA Reductase Inhibitor Start: 07-15-20 23 take 1 tablet by mouth at bedtime Rosuvastatin Calcium 10 MG Oral Tablet TAKE 1 TABLET AT BEDTIME. Quantity: 90 Refills: 3 Ordered: 15-Jul-2023 Jay Jay Mariscal MD Start : 15-Jul-2023 Active new serratiopeptidase (13 sources) Start: 01-15-20 Serrapeptase 40,000 SPU Serrapeptase 40,000 SPU, Oral, Daily, Calcium 27 mg and Serrapeptase Enzyme 40,000 SPU. support healthy sinuses and breakdown unwanted proteins Start Date: 01/15/24 Status: Ordered ubidecarenone 100 mg / vitamin e 5 unt oral capsule (3 sources) Start: 07-15-20 take 1 capsule by mouth once daily Co Q 10 100 MG Oral Capsule TAKE 1 CAPSULE Daily Quantity: 90 Refills: 3 Ordered: 15-Jul-2023 Jay Jay Mariscal MD Start : 15-Jul-2023 Active valsartan 160 mg oral tablet (20 sources) Angiotensin 2 Receptor Vishnu Start: 02-13-20 take 1 tablet by mouth once daily valsartan 160 mg Tab 90 EA, TAKE 1 TABLET BY MOUTH ONCE DAILY, Refills(s) 0 Start Date: 06/29/23 Status: Ordered Vitamin D 50,000 intl units (1.25 mg) oral capsule (2 sources) Start: 09-17-20 End: 12-16-19 take 1 capsule by mouth every week Vitamin D 50,000 intl units (1.25 mg) oral capsule 50,000 International_Unit = 1 cap(s), Oral, qWeek, X 90 day(s), # 13 cap(s), Refills(s) 0, Pharmacy: [facility], 154, cm, 09/12/22 10:34:00 EDT, Height/Length Dosing, 56.4, kg, 09/12/22 10:34:00 EDT, Weight Dosing Start Date: 09/17/22 Stop Date: 12/16/22 Status: Ordered Vitamin D3 5000 intl units oral tab (4 sources) Start: 04-27-20 take 1 tablet by mouth once daily Vitamin D3 5000 intl units oral tab 5,000 International_Unit = 1 tab(s), Oral, Daily, Refills(s) 0, Prophylaxis Start Date: 04/27/19 Status: Ordered Problems Active Problems Problem Classification Problem Date Documented Date Episodic/Chronic Abdominal hernia (20 sources) Hernia of anterior abdominal wall Resolved: 04-27-2019 10-08-2019 Episodic Acute bronchitis (1 source) Acute infective bronchitis; Translations: [Acute bronchitis due to other specified organisms] Onset: 12-17-2022 Episodic Anxiety disorders (20 sources) Anxiety; Translations: [Anxiety disorder] Onset: 06-29-2023 02-07-2020 Chronic Cancer of breast (20 sources) Intraductal carcinoma in situ of breast; Translations: [Malignant neoplasm of upper-inner quadrant of female breast] Onset: 12-17-2022 01-19-2021 Chronic Cancer of breast (20 sources) History of malignant neoplasm of breast; Translations: [Personal history of malignant neoplasm of breast] Onset: 12-11-2022 01-17-2023 Episodic Chronic obstructive pulmonary disease and bronchiectasis (20 sources) Bronchitis; Translations: [Bronchitis, not specified as acute or chronic] Onset: 09-26-2023 Episodic Conditions associated with dizziness or vertigo (20 sources) Vertigo 12-12-2020 Episodic Coronary atherosclerosis and other heart disease (20 sources) Coronary arteriosclerosis; Translations: [Coronary atherosclerosis of unspecified type of vessel, [place] or graft] Onset: 05-26-2024 02-07-2020 Chronic Comment on above: 40% LAD, cardiac cat heterization 2018; Disorders of lipid metabolism (20 sources) Dyslipidemia; Translations: [Other and unspecified hyperlipidemia] Onset: 07-14-2023 Chronic E Codes: Fall (10 sources) Fall 08-17-2021 Esophageal disorders (10 sources) Gastroesophageal reflux disease 02-07-2020 Chronic Essential hypertension (20 sources) Essential hypertension; Translations: [Unspecified essential hypertension] Onset: 06-29-2023 02-07-2020 Chronic Fluid and electrolyte disorders (20 sources) Hypokalemia 04-27-2019 Episodic Genitourinary symptoms and ill-defined conditions (1 source) Dysuria; Translations: [Dysuria] Onset: 10-30-2023 Episodic Headache; including migraine (15 sources) Migraine without aura, not refractory ; Translations: [Migraine without aura, not intractable, without status migrainosus] Onset: 01-15-2024 Chronic Heart valve disorders (7 sources) Mitral valve regurgitation; Translations: [Mitral valve disorders] Chronic Comment on above: mild by echocardiogr am 2017; Immunizations and screening for infectious disease (6 sources) Encounter for screening for human papillomavirus (HPV); Translations: [Anti-nuclear factor positive] Onset: 04-09-2021 04-09-2021 Episodic Inflammation; infection of eye (except that caused by tuberculosis or sexually transmitteddisease) (10 sources) Allergic conjunctivitis 10-23-2020 Episodic Malaise and fatigue (16 sources) Fatigue; Translations: [Other fatigue] Onset: 05-12-2024 Resolved: 04-27-2019 04-28-2019 Episodic Menopausal disorders (20 sources) Atrophic vaginitis; Translations: [Atrophy of vagina] Onset: 03-05-2023 Resolved: 04-27-2019 04-28-2019 Chronic Miscellaneous mental health disorders (1 source) Insomnia; Translations: [Other insomnia not due to a substance or known physiological condition] Onset: 09-26-2023 Chronic Mood disorders (20 sources) Depression; Translations: [Depressive disorder] Onset: 08-19-2023 08-17-2017 Chronic Mycoses (4 sources) Candidal vulvovaginitis; Translations: [Acute candidiasis of vulva and vagina] Onset: 05-26-2024 Episodic Neoplasms of unspecified nature or uncertain behavior (10 sources) Neoplasm of uncertain behavior of right breast 01-09-2021 Episodic Nonmalignant breast conditions (12 sources) Fibrocystic disease of breast; Translations: [Diffuse cystic mastopathy of right breast] Onset: 01-28-2023 Resolved: 04-27-2019 10-08-2019 Chronic Nonspecific chest pain (3 sources) Chest pain; Translations: [Chest pain, unspecified] Episodic Nutritional deficiencies (20 sources) Vitamin D deficiency; Translations: [Vitamin D deficiency, unspecified] Onset: 12-17-2022 02-07-2020 Chronic Nutritional deficiencies (20 sources) Cobalamin deficiency; Translations: [Vitamin B deficiency] Onset: 01-15-2024 07-19-2019 Episodic Osteoarthritis (1 source) Degenerative joint disease involving multiple joints; Translations: [Secondary multiple arthritis] Onset: 04-09-2021 04-09-2021 Chronic Osteoporosis (20 sources) Osteoporosis; Translations: [Postmenopausal osteoporosis] Onset: 04-09-2021 02-07-2020 Chronic Other and unspecified benign neoplasm (8 sources) History of polyp of colon; Translations: [Personal history of colonic polyps] Onset: 04-14-2024 Episodic Other connective tissue disease (2 sources) Pain of bilateral hands; Translations: [Pain in right hand] Onset: 04-09-2021 04-09-2021 Episodic Other ear and sense organ disorders (1 source) Impacted cerumen of bilateral ears; Translations: [Impacted cerumen, bilateral] Onset: 08-19-2023 Episodic Other ear and sense organ disorders (1 source) Impacted cerumen 08-19-2023 Episodic Other endocrine disorders (10 sources) Disorder of endocrine system 02-07-2020 Episodic Other female genital disorders (1 source) Abnormal uterine bleeding; Translations: [Abnormal uterine and vaginal bleeding, unspecified] Onset: 10-30-2023 Chronic Other female genital disorders (14 sources) Vaginal bleeding 10-30-2023 Chronic Other injuries and conditions due to external causes (10 sources) Injury of coccyx 08-10-2021 Episodic Other lower respiratory disease (10 sources) Cough; Translations: [Cough, unspecified] Onset: 08-19-2023 Episodic Other lower respiratory disease (1 source) Chronic cough; Translations: [Chronic cough] Onset: 01-15-2024 Episodic Other lower respiratory disease (5 sources) Persistent cough 01-15-2024 Episodic Other nervous system disorders (1 source) Anesthesia of skin; Translations: [Anesthesia of skin] Onset: 01-15-2024 Episodic Other nervous system disorders (13 sources) Numbness of hand 01-15-2024 Episodic Other non-traumatic joint disorders (10 sources) Joint pain 11-09-2020 Episodic Other non-traumatic joint disorders (1 source) Pain of left shoulder joint; Translations: [Pain in left shoulder] Onset: 02-06-2024 Episodic Other screening for suspected conditions (not mental disorders or infectious disease) (19 sources) Thallium stress test abnormal; Translations: [Other nonspecific abnormal results of function study of cardiovascular system] Onset: 04-01-2023 Resolved: 04-27-2019 04-28-2019 Episodic Other skin disorders (8 sources) Loss of hair 09-12-2022 Episodic Other skin disorders (1 source) Non-scarring alopecia; Translations: [Nonscarring hair loss, unspecified] Onset: 09-12-2022 Episodic Other upper respiratory disease (10 sources) Allergic rhinitis 10-23-2020 Chronic Other upper respiratory disease (1 source) Disorder of the nose; Translations: [Abscess, furuncle and carbuncle of nose] Onset: 10-30-2023 Episodic Other upper respiratory disease (14 sources) Ulcer of nasal septum 10-30-2023 Episodic Other upper respiratory infections (20 sources) Chronic sinusitis; Translations: [Sinusitis] Onset: 05-12-2024 02-19-2021 Chronic Other upper respiratory infections (20 sources) Acute upper respiratory infection; Translations: [Acute upper respiratory infection, unspecified] Onset: 09-17-2022 Episodic Otitis media and related conditions (6 sources) Otitis media; Translations: [Otitis media, unspecified, left ear] Onset: 05-12-2024 Episodic Pneumonia (except that caused by tuberculosis or sexually transmitted disease) (8 sources) Pneumonia; Translations: [Pneumonia, unspecified organism] Onset: 05-06-2024 Episodic Residual codes; unclassified (14 sources) Body mass index 20-24 - normal; Translations: [Body Mass Index between 19-24, adult] Onset: 09-12-2022 Episodic Residual codes; unclassified (10 sources) Sleep disorder 08-17-2017 Episodic Residual codes; unclassified (1 source) Patient encounter status; Translations: [Other specified health status] Onset: 09-26-2023 Episodic Residual codes; unclassified (16 sources) Insomnia 09-26-2023 Episodic Residual codes; unclassified (1 source) Amnesia; Translations: [Other amnesia] Onset: 01-15-2024 Episodic Residual codes; unclassified (13 sources) Poor short-term memory 01-15-2024 Episodic Residual codes; unclassified (2 sources) Other general symptoms and signs; Translations: [Clinical finding (finding)] Onset: 04-14-2024 Episodic Skin and subcutaneous tissue infections (2 sources) Impetigo; Translations: [Impetigo, unspecified] Onset: 07-09-2024 Episodic Spondylosis; intervertebral disc disorders; other back problems (10 sources) Degeneration of cervical intervertebral disc; Translations: [Other cervical disc degeneration, unspecified cervical region] Onset: 02-06-2024 Chronic Spondylosis; intervertebral disc disorders; other back problems (20 sources) Cervico-occipital neuralgia; Translations: [Low back pain] Onset: 04-09-2021 Resolved: 04-27-2019 02-07-2020 Episodic Thyroid disorders (20 sources) Hypothyroidism; Translations: [Unspecified acquired hypothyroidism] Onset: 06-29-2023 02-07-2020 Chronic Unclassified (2 sources) Encounter for screening for cardiovascular disorders / Z13.6(ICD-9) Onset: 09-08-2017 Unclassified (20 sources) Patient encounter status Resolved: 04-27-2019 04-28-2019 Unclassified (3 sources) Body mass index 20-24 - normal 01-17-2023 Unclassified (9 sources) Pain of left shoulder region 02-06-2024 Unclassified (5 sources) Varicose vein of calf 05-12-2024 Varicose veins of lower extremity (1 source) Varicose veins of lower extremity; Translations: [Asymptomatic varicose veins of unspecified lower extremity] Onset: 05-12-2024 Episodic Viral infection (2 sources) Viral disease; Translations: [Viral infection, unspecified] Onset: 07-09-2024 Episodic Past or Other Problems Problem Classification Problem Date Documented Date Episodic/Chronic Abdominal pain (10 sources) Right lower quadrant pain Resolved: 04-27-2019 04-28-2019 Episodic Cardiac dysrhythmias (10 sources) Palpitations Resolved: 04-27-2019 04-28-2019 Episodic Deficiency and other anemia (10 sources) Anemia Resolved: 05-25-2019 10-08-2019 Episodic Deficiency and other anemia (10 sources) Iron deficiency anemia secondary to inadequate dietary iron intake Resolved: 04-27-2019 10-08-2019 Episodic Diseases of mouth; excluding dental (1 source) Xerostomia; Translations: [Dry mouth, unspecified] Onset: 04-09-2021 04-09-2021 Episodic Nonmalignant breast conditions (7 sources) Lump of upper outer quadrant of breast; Translations: [Mastodynia] Onset: 12-06-2022 01-17-2023 Episodic Other connective tissue disease (10 sources) Foot pain Resolved: 04-27-2019 04-28-2019 Episodic Other eye disorders (10 sources) Dry eyes Resolved: 04-27-2019 10-08-2019 Episodic Other eye disorders (1 source) Tear film insufficiency; Translations: [Dry eye syndrome of bilateral lacrimal glands] Onset: 04-09-2021 04-09-2021 Episodic Other hematologic conditions (1 source) ESR raised; Translations: [Elevated erythrocyte sedimentation rate] Onset: 04-09-2021 04-09-2021 Episodic Other nervous system disorders (11 sources) Paresthesia of hand ; Translations: [Anesthesia of skin] Onset: 04-09-2021 10-23-2020 Episodic Other nervous system disorders (1 source) Paresthesia of foot ; Translations: [Anesthesia of skin] Onset: 04-09-2021 04-09-2021 Episodic Other upper respiratory disease (10 sources) Seasonal allergy Resolved: 04-27-2019 04-28-2019 Chronic Residual codes; unclassified (10 sources) Postmenopausal state Resolved: 04-27-2019 04-28-2019 Episodic Residual codes; unclassified (4 sources) History of chest pain; Translations: [Personal history of other specified diseases] Resolved: 07-16-2022 Episodic Unclassified (1 source) Encounter for screening for cardiovascular disorders; Translations: [Encounter for screening for cardiovascular disorders] Onset: 09-08-2017 Unclassified (7 sources) Never smoked tobacco; Translations: [Never a smoker] Unclassified (20 sources) Onset: 07-13-1969 Resolved: 11-25-1977 08-11-2019 Results Test Name Value Interpretation Reference Range Facil ity Ambulatory Visit Summaryon 0 07-09-2024 Ambulatory Visit Summary Ambulatory Visit Summary KERMIT ROSEN :1950 Visit Date:07/09/2024 Ambulatory Visit Instructions Your Diagnosis Flu-like symptoms Mild recurrent major depression Impetigo Viral illness Your Care Team Attending Physician - Vilma John Primary Care Physician - Vilma John This Is Your Medications List mupirocin topical (mupirocin Top 2% Oint) Contact prescribing physician if questions or concerns Misc Prescription (spacer) Non-Formulary Medication (H-HTP 100 mg) Non-Formulary Medication (NAC Detox Regulators) Non-Formulary Medication (Nitric Oxide Foundation) Non-Formulary Medication (Serrapeptase 40,000 SPU) albuterol (Ventolin HFA 90 mcg/inh Aerosol-Adpt) alprazolam (alprazolam 0.25 mg Tab) ascorbic acid (Vitamin C 500 mg oral tablet, chewable) brompheniramine/dex tromethorphan/PSE (Bromfed DM oral syrup) garlic (Garlic) iodine ivermectin magnesium amino acids chelate menaquinone (Vitamin K2) metoprolol (metoprolol 50 mg ER Tab) multivitamin with minerals (Elderberry Gummies with Vitamin C and Zinc) thyroid desiccated ([place] Thyroid 30 mg Tab) valsartan (valsartan 160 mg Tab) zinc acetate (zinc acetate 50 mg oral capsule) [Image Removed: STOP]Stop taking these medications sertraline (sertraline 50 mg Tab) Procedures Performed Biopsy of breast (02/02/2021), Lumpectomy of right breast (02/02/2021), Dilation and curettage, Tonsillectomy, Tubal ligation, Ultrasonography guided biopsy of right breast. Discharge Vitals Temperature (Temporal Artery) 36.4 ?C Heart Rate (Peripheral) 65 Respiratory Rate 20 Blood Pressure 132/84 Height 154 cm Height 61 in Weight 54.2 kg Weight 119.24 lb BMI 22.85 What to do next Scheduled Follow-Up Appointments Friday 10:00 AM EDT With: Esvin AVILES, Vilma Rivera Where: [facility] [address], [facility] [place] [address]- Friday 2:30 PM EDT With: Where: [facility] [address], [place] [address]- Medications What How Much When Why Instructions New mupirocin topical (mupirocin Top 2% Oint) 1 Application Topical 2 times a day Diabetic Impetigo Pickup at [facility] 1985 Unchanged albuterol (Ventolin HFA 90 mcg/ inh Aerosol-Adpt) 2 Puffs Inhalation 4 times a day as needed for for wheezing Viral bronchitis Contact prescribing physician if questions or concerns Unchanged alprazolam (alprazolam 0.25 mg Tab) 1 Tablets By Mouth Every day as needed for for insomnia Situational insomnia Contact prescribing physician if questions or concerns Unchanged ascorbic acid (Vitamin C 500 mg oral tablet, chewable) 1 Tablets Chewed Every day Contact prescribing physician if questions or concerns Unchanged brompheniramine/ dextromethorphan/ PSE (Bromfed DM oral syrup) 5 Milliliter By Mouth 4 times a day as needed for for cough and congestion Bronchitis Flu-like symptoms Contact prescribing physician if questions or concerns Unchanged garlic (Garlic) See instructions 1 tab daily OTC Contact prescribing physician if questions or concerns Unchanged iodine Contact prescribing physician if questions or concerns Unchanged ivermectin 12 Milligram By Mouth Once Contact prescribing physician if questions or concerns Unchanged magnesium amino acids chelate Contact prescribing physician if questions or concerns Unchanged menaquinone (Vitamin K2) Contact prescribing physician if questions or concerns Unchanged metoprolol (metoprolol 50 mg ER Tab) 1 Tablets By Mouth Every day Contact prescribing physician if questions or concerns Unchanged Misc Prescription (spacer) See instructions Bronchitis Sinusitis BMI 23.0-23.9, adult please dispense an adult mdi spacer chamber Contact prescribing physician if questions or concerns Unchanged multivitamin with minerals (Elderberry Gummies with Vitamin C and Zinc) 1 tablet Chewed Every day Contact prescribing physician if questions or concerns Unchanged Non-Formulary Medication (H-HTP 100 mg) See instructions 5-HTP 100mg (Neurotransmitter Support). For Depression Contact prescribing physician if questions or concerns Unchanged Non-Formulary Medication (NAC Detox Regulators) By Mouth Every day Selenium 500 mcg, Molybdenum 50 mcg, and N-Acetylcysteine 600 mg Contact prescribing physician if questions or concerns Unchanged Non-Formulary Medication (Nitric Oxide Foundation) 2 Tablets By Mouth Every day Vitamin C 290 mg, Thiamin 90mg, B12 200 mcg, Magnesium 75 mg, Potassium 189 mg, 500mg (postassium nitrate, beet root extract and fermented beet root powder). For Circulatory Support Contact prescribing physician if questions or concerns Unchanged Non-Formulary Medication (Serrapeptase 40,000 SPU) By Mouth Every day Calcium 27 mg and Serrapeptase Enzyme 40,000 SPU. support healthy sinuses and breakdown unwanted (more content not included)... Normal [facility] Family Medicine Office/Clini c Noteon 07-09-2024 Family Medicine Office/Clinic Note Family Medicine Office/Clinic Note Chief Complaint Nausea, chills, cough, congestion HPI Staff Reason for visit: Nausea, Chills, Cough, Congestion Onset: 07/05/2024 Body aches: yes Chest congestion: no Chills: yes Cough: yes Ear complaints: yes Patient states she has fluid in her ears Eye itching/watering: yes Fever: no Headache: yes Patient states her scalp hurts Nasal congestion: yes Nasal discharge: yes Patient states she has sores in her nose and produces yellow snot Poor appetite: yes Reduced activity: no Sinus pain/pressure: no Sneezing: yes Sputum production: no Wheezing: no Ill contacts: Unknown Remedies tried: mixed cold/sinus preparations(flu medicine that does not raise your BP) History of Present Illness -I have reviewed and discussed the HPI (staff) with the patient today. -Information was verified and is correct. -Additional information provided if needed. [place] Hot, dry cough, sore throat, yellow crap blowing from nose. Started FRIDAY - aches are improving today, shoulders, sores in her nose. no bleeding,redness in nose. blood shot eyes. No clue who got her sick. NO CHEST PAIN< NO SOB< NO WHEEZING. Has been taking 5 HTP to help with her mood. Wants to take [place] to help with depression. she weaned off the sertraline Denies any suicidal homicidal ideation. Physical Exam Vitals & Measurements T: 36.4 ?C(Temporal Artery) HR: 65(Peripheral) RR: 20 BP: 132/84 SpO2: 100% HT: 61 in HT: 154 cm WT: 54.2 kg WT: 119.24 lb BMI: 22.85 General: alert, no acute distress, _well appearing, _pleasant ENMT: oral mucosa moist, no pharyngeal erythema or exudate, TM normal, no sinus tenderness to palpation , moist mucous membranes, erythema and edema distal nare right opening and injection septum, mild clear to yellow discharge Cardiovascular: regular rate and rhythm, normal peripheral perfusion, noedema Respiratory: no distress, Lungs CTA, respirations non labored Extremities: no deformity, no trauma Neurological: oriented x 4, LOC appropriate for age, CN II-XII intact, motor strength equal & normal bilaterally, sensation equal & normal bilaterally, speech normal Integumentary: intact, warm & dry, no rashes, no open sores Assessment/Plan 1. Flu-like symptoms (R68.89: Other general symptoms and signs) flu and covid tests are negative in office today. symptoms seem to be slowly improving Ordered: Influenza Type A&B POC 48560 Rapid COVID POC 11023 2. Mild recurrent major depression (F33.0: Major depressive disorder, recurrent, mild) no PHQ9 score today, has weaned off Sertatine 50 mg . taking supplements denies SI, HI. no need for therapy at this time patient continues breathing and music techniques. 3. Impetigo (L01.00: Impetigo, unspecified) Mild case will treat with nasal mupirocin topical ointment Monitor closely Ordered: mupirocin topical, 1 christiano, Topical, BID Diabetic, 30 gram, Refill(s) 0, [facility], 154, cm, 07/09/24 9:47:00 EDT, Height/Length Dosing, 54.2, kg, 07/09/24 9:47:00 EDT, Weight Dosing 4. Viral illness (B34.9: Viral infection, unspecified) OTC meds, increasing fluids, BRAT diet URI symptoms and mild diarrhea. worried about next week - first week of school on the [place]. Patient with history of developing pneumonia in the past. Considering antibiotics. If the patient calls on Friday or Friday- I will send in an antibiotic but for now we are going to watch and wait with out any antibiotics Portions of this record may have been created with voice recognition artificial intelligence software, specifically [employer] and or [employer]. Substitutions may have occurred due to the inherent limitations of voice recognition and artificial intelligence software. Total time spent preparing the chart, conducting of the encounter with the patient and family and time spent documenting, reviewing, and ordering tests was 25 minutes. Follow-up No qualifying data available Problem List/Past Medical History Ongoing Atypical migraine Benign essential hypertension Bulging of cervical intervertebral disc Cervical radiculitis Chronic sinusitis with recurrent bronchitis Fatigue Hand numbness Izzy's thyroiditis Hernia, ventral Hx of colonic polyp Hyperlipidemia, mild Hypothyroidism Impetigo Left shoulder pain Mild CAD Mild recurrent major depression Nasal septal ulcer Occipital neuralgia Osteoporosis Otitis media of left ear Personal history of breast cancer Positive YOSELIN (antinuclear antibody) Post-nasal drip Postmenopause atrophic vaginitis Short-term memory loss Situational insomnia Vaginal candidosis Varicose veins of calf Vertigo Viral illness Vitamin D deficiency Wellness examination Historical Anxiety B12 deficiency 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 Normal [facility] [facility] Comment on above: Result Comment: Elec tronically Signed By: Vilma John\.reg\Date and Time Signed: 07/09/24 10:37 EDT Family Medicine Office/Clini c Noteon 05-27-2024 Family Medicine Office/Clinic Note Family Medicine Office/Clinic Note Chief Complaint 6 month follow up-Dysuria, HTN, Hashimotos, Ear discomfort , and possible yeast infection HPI Staff Reason for Visit: 6 month follow up-Dysuria, HTN, Izzy's Note: Patient states she has a yeast infection and is self treating it with Monistat. Patient c/o vaginal itches and burning. Patient c/o bilateral ear discomfort Refills:Sertraline Patient is here for follow up on hypertension. How often are you checking your blood pressure? Couple times a week What are your average readings? Unknown Are you compliant with your diet? yes Do you exercise? yes Are you compliant with your medications or having difficulty affording your medications? no Have you had any ER visits or hospitalizations since last visit:No Have you had any recent cardiopulmonary testing: No Do you have side effects from the medication? None Do you have any of the following symptoms? Chest Pain? no Palpitations? no OSCAR/SOB? no Headache? no Peripheral Edema? no Patient states she had tingling and numbness in her hands this morning but it is not anything new. Light Headedness? yes Patient states she has positional vertigo CHRISTIANO: Deferred (done 14 days ago). PHQ9: Deferred (done 14 days ago). History of Present Illness I have reviewed and discussed the HPI (staff) with the patient today. Information was verified and is correct. Additional information provided if needed. AWV today - Kermit Rosen is a 74-year-old female who presents for follow-up. We just saw each other 14 days ago for her wellness follow-up. We discussed her thyroid issues and hypertension. She complained of a yeast infection and has been self-medicating with Monistat. History of yeast infection/Vaginal candidiasis. The patient has a history of yeast infection and has been experiencing it since her last visit. She self-medicated with Monistat 1-day suppository on 05/24/2024, which provided relief and applied Monistat cream due to experiencing pruritus and burning sensation in the area. She attributes her symptoms due to using antibiotics. She reports improvement in her condition. History of pneumonia. She was previously treated for pneumonia, which has since improved. Her cough and respiratory function have also improved. She suspects that her condition exacerbated in 05/2024 due to her not being treated with antibiotics in 03/2024. She experienced right lung pneumonia 2 times and believes that her right lung pneumonia was never resolved initially. Positive YOSELIN. She has a history of a positive autoimmune marker. She was previously under the care of a thyroid specialist, and she was told at that time that he could treat her arthritis; however, she declined treatment. She prefers not to take medication due to concerns about potential side effects and lack of efficacy. She prefers to self-manage her condition. Nerve-related symptoms/Vitamin B12 levels. She occasionally experiences a nerve shock-like sensation in her body. She has a history of torn cartilage in her ribs and currently experiences muscle spasms in her ribs, depending on her movement. She has received vitamin B12 injections in the past, but it was discontinued. She occasionally experiences fatigue. She experiences severe hand discomfort intermittently which typically resolves as the day progresses. Hypokalemia. She visited the ER in the past due to her potassium levels. She was taking her antihypertensive medication with a diuretic, which caused her hypokalemia. She is more symptomatic to subtle changes. She avoids taking diuretics. Otitis media of left ear. She continues to experience fluid in her left ear, which was previously more severe. She reports that Sudafed, which she used for 3 days has provided some relief. Hypothyroidism. She takes zinc, iodine, and selenium separately. She was not initially aware that her thyroid issues can cause brain fog. Depression. She does not take alprazolam often. She expresses a desire to discontinue her sertraline 50 mg. She discontinued it 2 times in the past and experiences emotional distress approximately a month after discontinuation. She discussed the [employer] program and is currently participating and listening in a musical to improve cognitive function using frequency and vibrations. She was taught how to wean off by her previous doctor. Additional information. She has had renal calculus in the past that caused her to visit the ER. She underwent colonoscopy and was revealed to have 1 polyp. She expresses a desire to strengthen her immune system. Review of Systems The pertinent positive and negative findings are as noted in the HPI. Physical Exam Vitals & Measurements T: 36.7 ?C(Temporal Artery) HR: 62(Peripheral) RR: 18 BP: 132/64 SpO2: 96% HT: 61 in HT: 154 cm WT: 55.0 kg WT: 121 lb BMI: 23.19 Vital Signs Blood pressure is 132/64 mmHg. General: The patient is elderly, pleasant, alert female evaluated (more content not included)... Normal [facility] Comment on above: Result Comment: Elec tronically Signed By: Vilma John\.br\Date and Time Signed: 05/27/24 09:49 EDT\.br\Electronically Co-Signed By: Courtney Rea\.br\Date and Time Co-Signed: 05/26/24 16:16 EDT Family Medicine Office/Clinic Note Family Medicine Office/Clinic Note Chief Complaint Medicare Wellness Visit Review of Systems PHQ Score Initial Depression Screen Score: 0 SCORE Physical Exam Vitals & Measurements HR: 62(Peripheral) RR: 16 BP: 132/64 SpO2: 96% HT: 154 cm HT: 61 in WT: 55 kg WT: 121 lb BMI: 23.19 Assessment/Plan 1. Annual visit for general adult medical examination without abnormal findings (Z00.00: Encounter for general adult medical examination without abnormal findings) Discussed all the current AHRQ USPSTF?s recommendations for preventative services and all current CDC recommended immunizations, relevant risk recommendations and the following patient brochures were given. Reviewed Medicare Prevention Services checklist. CDC-Falls Prevention and home safety screening reviewed. Patient denies any falls in last 12 months, voices no worry about falling. Exhibits no problems with sitting, standing or ambulation. Patient aware with keeping walk way area free of clutter to prevent tripping and/or falling. [place] Advance Directives reviewed. Documents remain at home and present in the chart. Patient denies any problems with ADL?s and Instrumental ADL?s. Cognitive screening completed with memory and clock face drawing. No deficits noted. Immunization record reviewed, discussed Shingrix vaccine with educational handout and availability. COVID vaccines have not been administered. Allergies and medications reviewed and up to date. No concerns with taking medication as prescribed. Reviewed OTC medications, medication list up to date. Blood tests were reviewed: Labs UTD. No concerns with bowel/ bladder. Colonoscopy last completed: 05/30/2020. Mammogram and Dexa Scans ordered per OBGYN Dr. Marley per patient. Reviewed pain symptoms : denies pain. Reviewed all outside providers that patient follows. Last visit summary notes available in chart and/or have been requested. Patient declines any signs or symptoms of depression at this time. 8 minutes spent with screening and documentation. PHQ2 screening score 0. Patient drinks alcohol weekly or less, 1 drink per episode, denies concerns. 12 minutes spent with screening and documentation. Audit score 2. Follow up scheduled with PCP, today. AWV has been scheduled, 05/25/25. Patient qualifies for Chronic Care Management- offered and declined. Medicare provides yearly screening for alcohol and depression concerns. This is completed during our Medicare wellness visit for those who do not have a current diagnosis of depression or concerns with alcohol use. I spent a total of 20 minutes on this date of service which included preparing to see the patient, face to face patient care, completing clinical documentation, obtaining and/or reviewing separately obtained history, counseling and educating the patient with handouts. Explanations were provided with reviewing questionnaires. AUDIT risk assessment screening completed, risk score (2) with patient denying concerns with use. Completed PHQ-2 risk assessment for depression with risk score (0), negative findings. Patient has been reminded to notify the provider if there would be a change or concerns with symptoms with fear, unable to sleep, worrying too much or feeling down and/or sad with lost of interest with daily activities. Will continue to monitor with screening yearly during Medicare wellness visits. 2. 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 Denies concerns, voices no suicidal ideations. Taking Sertraline daily, patient voices effectiveness with this medication. Educational handouts reviewed with signs and symptoms to monitor for and report to PCP. Medications managed with office visits, OPIOD risk with OARRS completed with PCP. 3. Benign essential hypertension (I10: Essential (primary) hypertension) Patient taking medications daily as directed. Important to keep BP <140/90 to prevent increased cardiovascular risks. DASH dietary handout reviewed with importance to lower salt intake, eat more chicken, fish and lean white meats. Follow up with PCP. 4. Hyperlipidemia, mild (E78.5: Hyperlipidemia, unspecified) Patient encouraged to eat a diet that is low in saturated fats. Stressed importance of maintaining a healthy BMI as being overweight does produce more lipids. Monitor alcohol intake and avoid smoking. Risks may also increase with a family history of hyperlipidemia. Patient voices understanding with healthy dietary choices to reduce risk factors associated with CVA. Treating with diet. Will continue to follow up with labs as directed. 5. Hypothyroidism (E03.9: Hypothyroidism, unspecified) Continues taking [place] Thyroid daily as ordered. Voices no sensitivity to cold, extreme hair loss or increased daytime fatigue. Labs and medications followed up with PCP as needed 6. Mild CAD (I25.10: Atherosclerotic heart disease of [place] coronary artery without angina pectoris) Patient follows with cardiolo (more content not included)... Normal [facility] Comment on above: Result Comment: Elec tronically Signed By: Vilma John\.br\Date and Time Signed: 05/27/24 09:46 EDT\.br\Electronically Co-Signed By: Marycarmen Mills LPN\.br\Date and Time Co-Signed: 05/26/24 15:44 EDT Ambulatory Visit Summaryon 0 05-26-2024 Ambulatory Visit Summary Ambulatory Visit Summary KERMIT ROSEN :1950 Visit Date:05/26/2024 Ambulatory Visit Instructions Your Diagnosis Annual visit for general adult medical examination without abnormal findings Mild recurrent major depression Benign essential hypertension Hyperlipidemia, mild Hypothyroidism Mild CAD Your Care Team Attending Physician - Vilma John Primary Care Physician - Vilma John This Is Your Medications List [facility] Prescription (spacer) Non-Formulary Medication (NAC Detox Regulators) Non-Formulary Medication (Nitric Oxide Foundation) Non-Formulary Medication (Serrapeptase 40,000 SPU) albuterol (Ventolin HFA 90 mcg/inh Aerosol-Adpt) alprazolam (alprazolam 0.25 mg Tab) ascorbic acid (Vitamin C 500 mg oral tablet, chewable) brompheniramine/dex tromethorphan/PSE (Bromfed DM oral syrup) garlic (Garlic) iodine ivermectin magnesium amino acids chelate menaquinone (Vitamin K2) metoprolol (metoprolol 50 mg ER Tab) multivitamin with minerals (Elderberry Gummies with Vitamin C and Zinc) sertraline (sertraline 50 mg Tab) thyroid desiccated ([place] Thyroid 30 mg Tab) valsartan (valsartan 160 mg Tab) zinc acetate (zinc acetate 50 mg oral capsule) Procedures Performed Biopsy of breast (02/02/2021), Lumpectomy of right breast (02/02/2021), Dilation and curettage, Tonsillectomy, Tubal ligation, Ultrasonography guided biopsy of right breast. Discharge Vitals Heart Rate (Peripheral) 62 Respiratory Rate 16 Blood Pressure 132/64 Height 154 cm Height 61 in Weight 55 kg Weight 121 lb BMI 23.19 What to do next Scheduled Follow-Up Appointments Friday 10:00 AM EDT With: Vilma John Where: [facility] [address] [place] [address]- \.br\ Medications\.br\ What How Much When Why Instructions\.br\ Changed brompheniramine/ dextromethorphan/ PSE (Bromfed DM oral syrup) 5 Milliliter By Mouth 4 times a day as needed for for cough and congestion Bronchitis Flu-like symptoms\.br\ Unchanged albuterol (Ventolin HFA 90 mcg/ inh Aerosol-Adpt) 2 Puffs Inhalation 4 times a day as needed for for wheezing Viral bronchitis\.br\ Unchanged alprazolam (alprazolam 0.25 mg Tab) 1 Tablets By Mouth Every day as needed for for insomnia Situational insomnia\.br\ Unchanged ascorbic acid (Vitamin C 500 mg oral tablet, chewable) 1 Tablets Chewed Every day\.br\ Unchanged garlic (Garlic) See instructions 1 tab daily OTC \.br\ Unchanged iodine\.br\ Unchanged ivermectin 12 Milligram By Mouth Once\.br\ Unchanged magnesium amino acids chelate\.br\ Unchanged menaquinone (Vitamin K2)\.br\ Unchanged metoprolol (metoprolol 50 mg ER Tab) 1 Tablets By Mouth Every day\.br\ Unchanged Misc Prescription (spacer) See instructions Bronchitis Sinusitis BMI 23.0-23.9, adult please dispense an adult mdi spacer chamber \.br\ Unchanged multivitamin with minerals (Elderberry Gummies with Vitamin C and Zinc) 1 tablet Chewed Every day\.br\ Unchanged Non-Formulary Medication (NAC Detox Regulators) By Mouth Every day Selenium 500 mcg, Molybdenum 50 mcg, and N-Acetylcysteine 600 mg \.br\ Unchanged Non-Formulary Medication (Nitric Oxide Foundation) 2 Tablets By Mouth Every day Vitamin C 290 mg, Thiamin 90mg, B12 200 mcg, Magnesium 75 mg, Potassium 189 mg, 500mg (postassium nitrate, beet root extract and fermented beet root powder). For Circulatory Support \.br\ Unchanged Non-Formulary Medication (Serrapeptase 40,000 SPU) By Mouth Every day Calcium 27 mg and Serrapeptase Enzyme 40,000 SPU. support healthy sinuses and breakdown unwanted proteins \.br\ Unchanged sertraline (sertraline 50 mg Tab) 1 Tablets By Mouth Every day\.br\ Unchanged thyroid desiccated ([place] Thyroid 30 mg Tab) 1 Tablets By Mouth Every day Hypothyroidism no Generic substitutions please - \.br\ Unchanged valsartan (valsartan 160 mg Tab) 90 EA, TAKE 1 TABLET BY MOUTH ONCE DAILY \.br\ Unchanged zinc acetate (zinc acetate 50 mg oral capsule) 1 Capsules By Mouth Every day on an empty stomach 1 hour before or 2 hours after eating \.br\ Allergies\.br\ Citalopram Hydrobromide (Unknown)\.br\ propranolol (hives)\.br\ diclofenac sodium (BP rises)\.br\ CeleXA (Unknown)\.br\ Voltaren Topical (Hypertension)\.br\ doxycycline (Yeast infection)\.br\ hydroCHLOROthiazide (Electrolyte disturbance)\.br\ lisinopril (Unknown)\.br\ Problems\.br\ Ongoing - Any problem that you are currently receiving treatment for.\.br\ Atypical migraine\.br\ Benign essential hypertension\.br\ Bulging of cervical intervertebral disc\.br\ Cervical radiculitis\.br\ Chronic sinusitis with recurrent bronchitis\.br\ Fatigue\.br\ Hand numbness\.br\ Izzy's thyroiditis\.br\ Hernia, ventral\.br\ Hx of colonic polyp\.br\ Hyperlipidemia, mild\.br\ Hypothyroidism\.br\ Left shoulder pain\.br\ Mild CAD\.br\ Mild recurrent major depression\.br\ Nasal septal ulcer\.br\ Occipital neuralgia\.br\ Osteoporosis\.br\ Otitis media of left ear\.br\ Personal history of breast cancer\.br\ Positive YOSELIN (antinuclear antibody)\.br\ Post-nasal drip\.br\ Postmenopause atrophic vaginitis\.br\ Short-term memory loss\.br\ Situational insomnia\.br\ Vaginal candidosis\.br\ Varicose veins of calf\.br\ Vertigo\.br\ Vitamin D deficiency\.br\ Wellness examination\.br\ Historical - Any problem that you are no longer receiving treatment for.\.br\ Anxiety\.br\ B12 deficiency\.br\ Breast cancer of upper-inner quadrant of right female breast\.br\ Bronchitis\.br\ 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 Please share your experience with us by completing your survey. We appreciate your feedback and thank you for choosing us for your care.\.br\ Education Materials\.br\ Fat and Cholesterol Restricted Eating Plan\.br\ Eating a diet that limits fat and cholesterol may help lower your risk for heart disease and other conditions. Your body needs fat and cholesterol for basic functions, but eating too much of these things can be harmful to your health.\.br\ Your health care provider may order lab tests to check your blood fat (lipid) and cholesterol levels. This helps your health care provider understand your risk for certain conditions and whether you need to make diet changes. Work with your health care provider or dietitian to make an eating plan that is right for you.\.br\ Your plan includes:\.br\ ? \.br\ Limit your fat intake to % or less of your total calories a day. This is g of fat per day.\.br\ ? \.br\ Limit your saturated fat intake to % or less of your total calories a day. This is g of saturated fat per day.\.br\ ? \.br\ Limit the amount of cholesterol in your diet to less than mg a day.\.br\ ? \.br\ Eat g of fiber a day.\.br\ What are tips for following this plan?\.br\ General guidelines\.br\ ? \.br\ If you are overweight, work with your health care provider to lose weight safely. Losing just 5?10% of your body weight can improve your overall health and help prevent diseases such as diabetes and heart disease.\.br\ ? \.br\ Avoid:\.br\ ? \.br\ Foods with added sugar.\.br\ ? \.br\ Fried foods.\.br\ ? \.br\ Foods that contain partially hydrogenated oils, including stick margarine, some tub margarines, cookies, crackers, and other baked goods.\.br\ ? \.br\ If you drink alcohol:\.br\ ? \.br\ Limit how much you have to:\.br\ ? \.br\ 0?1 drink a day for women who are not .\.br\ ? \.br\ 0?2 drinks a day for men.\.br\ ? \.br\ Know how much alcohol is in a drink. In the [place] one drink equals one 12 oz bottle of beer (355 mL), one 5 oz glass of wine (148 mL), or one 1? oz glass of hard liquor (44 mL).\.br\ Reading food labels\.br\ ? \.br\ Check food labels for:\.br\ ? \.br\ Trans fats or partially hydrogenated oils. Avoid foods that contain these.\.br\ ? \.br\ High amounts of saturated fat. Choose foods that are low in saturated fat (less than 2 g).\.br\ ? \.br\ The amount of cholesterol in each serving.\.br\ ? \.br\ The amount of fiber in each serving.\.br\ ? \.br\ Choose foods with healthy fats, such as:\.br\ ? \.br\ Monounsaturated and polyunsaturated fats. These include olive and canola oil, flaxseeds, walnuts, almonds, and seeds.\.br\ ? \.br\ Superior-3 fats. These are found in foods such as salmon, mackerel, sardines, tuna, flaxseed oil, and ground flaxseeds.\.br\ ? \.br\ Choose grain products that have whole grains. Look for the word whole as the first word in the ingredient list.\.br\ Cooking\.br\ ? \.br\ Cook foods using methods other than frying. Baking, boiling, grilling, and broiling are some healthy options.\.br\ ? \.br\ Eat more home-cooked food and less restaurant, buffet, and fast food.\.br\ ? \.br\ Avoid cooking using saturated fats.\.br\ ? \.br\ Animal sources of saturated fats include meats, butter, and cream.\.br\ ? \.br\ Plant sources of saturated fats include palm oil, palm kernel oil, and coconut oil.\.br\ [facility] Ambulatory Visit Summary KERMIT ROSEN :1950 Visit Date:05/26/2024 Ambulatory Visit Instructions Your Diagnosis Hypothyroidism Izzy's thyroiditis Vaginal candidosis Benign essential hypertension Hyperlipidemia, mild Vitamin D deficiency Positive YOSELIN (antinuclear antibody) Your Care Team Attending Physician - Vilma John Primary Care Physician - Vilma John This Is Your Medications List metoprolol (metoprolol 50 mg ER Tab) sertraline (sertraline 50 mg Tab) Contact prescribing physician if questions or concerns Misc Prescription (spacer) Non-Formulary Medication (NAC Detox Regulators) Non-Formulary Medication (Nitric Oxide Foundation) Non-Formulary Medication (Serrapeptase 40,000 SPU) albuterol (Ventolin HFA 90 mcg/inh Aerosol-Adpt) alprazolam (alprazolam 0.25 mg Tab) ascorbic acid (Vitamin C 500 mg oral tablet, chewable) brompheniramine/dex tromethorphan/PSE (Bromfed DM oral syrup) garlic (Garlic) iodine ivermectin magnesium amino acids chelate menaquinone (Vitamin K2) multivitamin with minerals (Elderberry Gummies with Vitamin C and Zinc) thyroid desiccated ([place] Thyroid 30 mg Tab) valsartan (valsartan 160 mg Tab) zinc acetate (zinc acetate 50 mg oral capsule) [Image Removed: STOP]Stop taking these medications brompheniramine/dex tromethorphan/PSE (Bromfed DM oral syrup) Procedures Performed Biopsy of breast (02/02/2021), Lumpectomy of right breast (02/02/2021), Dilation and curettage, Tonsillectomy, Tubal ligation, Ultrasonography guided biopsy of right breast. Discharge Vitals Temperature (Temporal Artery) 36.7 ?C Heart Rate (Peripheral) 62 Respiratory Rate 18 Blood Pressure 132/64 Height 154 cm Height 61 in Weight 55.0 kg Weight 121 lb BMI 23.19 What to do next Scheduled Follow-Up Appointments Friday 2:30 PM EDT Where: [facility] Patient Educationon 05-26-20 24 Patient Education Cardiovascular Hypertension, Adult Hypertension is another name for high blood pressure. High blood pressure forces your heart to work harder to pump blood. This can cause problems over time. There are two numbers in a blood pressure reading. There is a top number (systolic) over a bottom number (diastolic). It is best to have a blood pressure that is below 120/80. What are the causes? The cause of this condition is not known. Some other conditions can lead to high blood pressure. What increases the risk? Some lifestyle factors can make you more likely to develop high blood pressure: ? Smoking. ? Not getting enough exercise or physical activity. ? Being overweight. ? Having too much fat, sugar, calories, or salt (sodium) in your diet. ? Drinking too much alcohol. Other risk factors include: ? Having any of these conditions: ? Heart disease. ? Diabetes. ? High cholesterol. ? Kidney disease. ? Obstructive sleep apnea. ? Having a family history of high blood pressure and high cholesterol. ? Age. The risk increases with age. ? Stress. What are the signs or symptoms? High blood pressure may not cause symptoms. Very high blood pressure (hypertensive crisis) may cause: ? Headache. ? Fast or uneven heartbeats (palpitations). ? Shortness of breath. ? Nosebleed. ? Vomiting or feeling like you may vomit (nauseous). ? Changes in how you see. ? Very bad chest pain. ? Feeling dizzy. ? Seizures. How is this treated? ? This condition is treated by making healthy lifestyle changes, such as: ? Eating healthy foods. ? Exercising more. ? Drinking less alcohol. ? Your doctor may prescribe medicine if lifestyle changes do not help enough and if: ? Your top number is above 130. ? Your bottom number is above 80. ? Your personal target blood pressure may vary. Follow these instructions at home: Eating and drinking ? If told, follow the DASH eating plan. To follow this plan: ? Fill one half of your plate at each meal with fruits and vegetables. ? Fill one fourth of your plate at each meal with whole grains. Whole grains include whole-wheat pasta, brown rice, and whole-grain bread. ? Eat or drink low-fat dairy products, such as skim milk or low-fat yogurt. ? Fill one fourth of your plate at each meal with low-fat (lean) proteins. Low-fat proteins include fish, chicken without skin, eggs, beans, and tofu. ? Avoid fatty meat, cured and processed meat, or chicken with skin. ? Avoid pre-made or processed food. ? Limit the amount of salt in your diet to less than 1,500 mg each day. ? Do not drink alcohol if: ? Your doctor tells you not to drink. ? You are , may be , or are planning to become . ? If you drink alcohol: ? Limit how much you have to: ? 0?1 drink a day for women. ? 0?2 drinks a day for men. ? Know how much alcohol is in your drink. In the [place] one drink equals one 12 oz bottle of beer (355 mL), one 5 oz glass of wine (148 mL), or one 1? oz glass of hard liquor (44 mL). Lifestyle ? Work with your doctor to stay at a healthy weight or to lose weight. Ask your doctor what the best weight is for you. ? Get at least 30 minutes of exercise that causes your heart to beat faster (aerobic exercise) most days of the week. This may include walking, swimming, or biking. ? Get at least 30 minutes of exercise that strengthens your muscles (resistance exercise) at least 3 days a week. This may include lifting weights or doing Pilates. ? Do not smoke or use any products that contain nicotine or tobacco. If you need help quitting, ask your doctor. ? Check your blood pressure at home as told by your doctor. ? Keep all follow-up visits. Medicines ? Take [id number] and prescription medicines only as told by your doctor. Follow directions carefully. ? Do not skip doses of blood pressure medicine. The medicine does not work as well if you skip doses. Skipping doses also puts you at risk for problems. ? Ask your doctor about side effects or reactions to medicines that you should watch for. Contact a doctor if: ? You think you are having a reaction to the medicine you are taking. ? You have headaches that keep coming back. ? You feel dizzy. ? You have swelling in your ankles. ? You have trouble with your vision. Get help right away if: ? You get a very bad headache. ? You start to feel mixed up (confused). ? You feel weak or numb. ? You feel faint. ? You have very bad pain in your: ? Chest. ? Belly (abdomen). ? You vomit more than once. ? You have trouble breathing. These symptoms may be an emergency. Get help right away. Call 911. ? Do not wait to see if the symptoms will go away. ? Do not drive yourself to the hospital. Summary ? Hypertension is another name for high blood pressure. ? High blood pressure forces your heart to work harder to pump blood. ? For m (more content not included)... Normal [facility] Patient Education Dyslipidemia Dyslipidemia is an imbalance of waxy, fat-like substances (lipids) in the blood. The body needs lipids in small amounts. Dyslipidemia often involves a high level of cholesterol or triglycerides, which are types of lipids. Common forms of dyslipidemia include: ? High levels of LDL cholesterol. LDL is the type of cholesterol that causes fatty deposits (plaques) to build up in the blood vessels that carry blood away from the heart (arteries). ? Low levels of HDL cholesterol. HDL cholesterol is the type of cholesterol that protects against heart disease. High levels of HDL remove the LDL buildup from arteries. ? High levels of triglycerides. Triglycerides are a fatty substance in the blood that is linked to a buildup of plaques in the arteries. What are the causes? There are two main types of dyslipidemia: primary and secondary. Primary dyslipidemia is caused by changes (mutations) in genes that are passed down through families (inherited). These mutations cause several types of dyslipidemia. Secondary dyslipidemia may be caused by various risk factors that can lead to the disease, such as lifestyle choices and certain medical conditions. What increases the risk? You are more likely to develop this condition if you are an older man or if you are a woman who has gone through menopause. Other risk factors include: ? Having a family history of dyslipidemia. ? Taking certain medicines, including control pills, steroids, some diuretics, and beta-blockers. ? Eating a diet high in saturated fat. ? Smoking cigarettes or excessive alcohol intake. ? Having certain medical conditions such as diabetes, polycystic ovary syndrome (PCOS), kidney disease, liver disease, or hypothyroidism. ? Not exercising regularly. ? Being overweight or obese with too much belly fat. What are the signs or symptoms? In most cases, dyslipidemia does not usually cause any symptoms. In severe cases, very high lipid levels can cause: ? Fatty bumps under the skin (xanthomas). ? A white or ignacio ring around the black center (pupil) of the eye. Very high triglyceride levels can cause inflammation of the pancreas (pancreatitis). How is this diagnosed? Your health care provider may diagnose dyslipidemia based on a routine blood test (fasting blood test). Because most people do not have symptoms of the condition, this blood testing (lipid profile) is done on adults age 20 and older and is repeated every 4-6 years. This test checks: ? Total cholesterol. This measures the total amount of cholesterol in your blood, including LDL cholesterol, HDL cholesterol, and triglycerides. A healthy number is below 200 mg/dL (5.17 mmol/L). ? LDL cholesterol. The target number for LDL cholesterol is different for each person, depending on individual risk factors. A healthy number is usually below 100 mg/dL (2.59 mmol/L). Ask your health care provider what your LDL cholesterol should be. ? HDL cholesterol. An HDL level of 60 mg/dL (1.55 mmol/L) or higher is best because it helps to protect against heart disease. A number below 40 mg/dL (1.03 mmol/L) for men or below 50 mg/dL (1.29 mmol/L) for women increases the risk for heart disease. ? Triglycerides. A healthy triglyceride number is below 150 mg/dL (1.69 mmol/L). If your lipid profile is abnormal, your health care provider may do other blood tests. How is this treated? Treatment depends on the type of dyslipidemia that you have and your other risk factors for heart disease and stroke. Your health care provider will have a target range for your lipid levels based on this information. Treatment for dyslipidemia starts with lifestyle changes, such as diet and exercise. Your health care provider may recommend that you: ? Get regular exercise. ? Make changes to your diet. ? Quit smoking if you smoke. ? Limit your alcohol intake. If diet changes and exercise do not help you reach your goals, your health care provider may also prescribe medicine to lower lipids. The most commonly prescribed type of medicine lowers your LDL cholesterol (statin drug). If you have a high triglyceride level, your provider may prescribe another type of drug (fibrate) or an omega-3 fish oil supplement, or both. Follow these instructions at home: Eating and drinking ? Follow instructions from your health care provider or dietitian about eating or drinking restrictions. ? Eat a healthy diet as told by your health care provider. This can help you reach and maintain a healthy weight, lower your LDL cholesterol, and raise your HDL cholesterol. This may include: ? Limiting your calories, if you are overweight. ? Eating more fruits, vegetables, whole grains, fish, and lean meats. ? Limiting saturated fat, trans fat, and cholesterol. ? Do not drink alcohol if: ? Your health care provider tells you not to drink. ? You are , may be , or are planning to bec (more content not included)... Normal [facility] YOSELIN Individual Abson 024 Centromere protein B Ab Qn (S) <0.2 Invalid Interpretation Code 0.0-0.9 [facility] Comment on above: Performed By: #### 2 [id number] #### [facility] [address] [place] [address] Chromatin Ab Qn <0.2 Invalid Interpretation Code 0.0-0.9 [facility] Comment on above: Performed By: #### 2 [id number] #### [facility] [address] [place] [address] DNA double strand Ab Qn (S) [IU]/mL Invalid Interpretation Code 0-9 [facility] Comment on above: Result Comment: Nega tive <5 Equivocal 5 - 9 Positive >9 Performed By: #### 2 [id number] #### [facility] [address] [place] [address] Loretta-1 extractable nuclear Ab Qn (S) <0.2 Invalid Interpretation Code 0.0-0.9 [facility] Comment on above: Performed By: #### 2 [id number] #### [facility] [address] [place] [address] Ribonucleoprotein extractable nuclear Ab Qn (S) 1.1 AI High 0.0-0.9 [facility] Comment on above: Performed By: #### 2 [id number] #### [facility] [address] [place] [address] SCL-70 extractable nuclear Ab Qn (S) <0.2 Invalid Interpretation Code 0.0-0.9 [facility] Comment on above: Performed By: #### 2 [id number] #### [facility] [address] [place] [address] See below: Comment Invalid Interpretation Code [facility] Comment on above: Result Comment: Auto antibody Disease Association Condition Frequency --------- Antinuclear Antibody, SLE, mixed connective Direct (YOSELIN-D) tissue diseases --------- dsDNA SLE 40 - 60% --------- Chromatin Drug induced SLE 90% SLE 48 - 97% --------- SSA (Ro) SLE 25 - 35% Sjogren's Syndrome 40 - 70% Lupus 100% --------- SSB (La) SLE 10% Sjogren's Syndrome 30% --------- Sm (anti-Willis) SLE 15 - 30% --------- MICROFABRICATION ENGINEER MANAGER Mixed Connective Tissue Disease 95% (U1 nRNP, SLE 30 - 50% anti-ribonucleoprotein) Polymyositis and/or Dermatomyositis 20% --------- Scl-70 (antiDNA Scleroderma (diffuse) 20 - 35% topoisomerase) Crest 13% --------- Loretta-1 Polymyositis and/or Dermatomyositis 20 - 40% --------- Centromere B Scleroderma - Crest variant 80% Performed at: [facility] [address], [place] [id number] PhD Ramila Ackerman Performed By: #### 2 [id number] #### [facility] [address] [place] [address] Sjogrens syndrome-A extractable nuclear Ab Qn (S) <0.2 Invalid Interpretation Code 0.0-0.9 [facility] Comment on above: Performed By: #### 2 [id number] #### [facility] [address] [place] [address] Sjogrens syndrome-B extractable nuclear Ab Qn (S) <0.2 Invalid Interpretation Code 0.0-0.9 [facility] Comment on above: Performed By: #### 2 [id number] #### [facility] [address] [place] [address] Willis extractable nuclear Ab Qn (S) <0.2 Invalid Interpretation Code 0.0-0.9 [facility] Comment on above: Performed By: #### 2 [id number] #### [facility] [address] [place], [place] [id number] YOSELIN w/Reflex if POSon 2023 Nuclear Ab Ql (S) Positive Abnormal Negative [facility] Comment on above: Result Comment: Perf ormed at: [facility] [address] [id number] PhD Ramila Ackerman Performed By: #### 1 [id number] #### [facility] [address] [place], [place] [id number] CH50on 05-20-2024 Complement total hemolytic CH50 Qn >60 Invalid Interpretation Code >41 [facility] Comment on above: Result Comment: Age Male Female 1 - 30 days Not Estab. Not Estab. 31 days - 6 months >32 >20 7 months - 17 years >39 >39 >17 years >41 >41 NOTE: The adult ( >17 years ) reference interval range is used to flag abnormals on this report. If the patient is 17 years old or younger, use the table above to determine out of range values. Performed at: [facility] [address] [id number] PhD Ramila Ackerman Performed By: #### 1 [id number] #### [facility] [address] [place], [place] [address] [place] [address] Coding Summary.on 05-20-2024 Coding Summary. RSWCNved59FKv4sBm+P GhlYWQ+RZ9TDSGrH01y bCUwuH1fU3HPZEuAXld gQVBQTElOSyIgbmFtZT 1kaXNjZXJu IC8+VG3vTSThDpoiyCR lz5G7dSK4E43pij4vKT wnrLX1BMVgGtRbnosmh 9pelIp0UZktRxjjIcCm PCLaiE72JHT5lU53Ac3 4uARrvUQov7ebsPq7Xc BrEMGsFAK6sNqrGEnjt 4OnORHeA69rmJBfv0W9 IGNvbGxhcHNlOyBlbXB 7gH7gQQifzgrug0ixkb ywXra2ps84aMWcu7M8y LL0J4UazoC4QCCinHJz KijnsDVEkA1uewysz8e asduxTvRzQRAkHLc3PY e8SJIjvKlqSoOnQM76C WO8NZGdxkXvL1BgVRNl uTfxIsU1l4U8Os8JH3V SWqdiN2DBQSZZEIzynM Q+HH28yh43N8KjLihaV mq1KKAtDSX7lLG3hF4y HCIbLVjll6X9kBJ8W1U uoaPoyh2bp2yxOQOqGA lcB06ysHVmb9M1GPIgh CB6VARhsPktCxSnrC14 Oyc+DQJgnUaom8TqIdy ud6tsk1qgmBu5NvcyYD OoxrZbpVkoTWH3d6RaO k1uLVWjuBL9qBC8hZ5a BkAwYbU5QUjoC367GrZ rqLJdVvefM91fT4GcqK A+TYVpYhn7YOGrjYghC R3wE1PiMIAvxjochDWp rDdkTY3fLMEgxdweLCA ulC1qJOZnC9s9NcDpQn Z1YBhaN5IjBREaghueE w11eQ6wSwJeLxL3CXvz U9RhrwH3JQVbhOJbDBx oQWX9G31mq7A1OCCpCK ZiBMP0vQC6sH3ccAuup jogbGVmdDsgdmVydGlj TRceYYocU388YTSvlFi nPkNvZGluZyBEYXRlOi AgMDYvMjAvMjAyNDwvd GQ+YIPlXLC7nHjiFRMl jNZyFEgaDm6xuGedrDq cXZ0zMTPxactxBEQrkL 0iDWJkeMDffVzoJZ9nI SChldqby190PsGaZPS2 SZPufZUcZ4JabT1iSnF dDPDnPWFsQ1SitVChXV hkU939VKlaVkU3THIwi wCzI6HdKPJayEljUhW5 n1N1Wz3Hr4IlgbznT3U pxDVaTvHjDzavFBt7L2 RkPjwvdHI+OD85LUQfQ H50CWr1CJK5oWojEBbe UHMaA0WawH5hKwCxQPU kZGRkOyc+PHRhYmxlIH dpZHRoPScxMDAlJyBzd TeiRX3sJx3pYVLzKLCo yYcaiMRwEzQra6psVQX aMNevIY4ngHxvK0NijY H4BOFvx2q4Ol61B16iG 3JvdXA+DJZkwKG9wDH8 mL6zNwJlImE5NVddQ43 4FhKcaYHpNnqan8rvp4 bazDg0MkJ1LAPwekHkv IdcSKV8i7KxZv68U23g IHdpZHRoPSIxNSUiIHZ mxTwpbp5uhQ9eKi3+PG NcpQB9kNI5pN0xJzBfN oR4NXhoY628XpWovITz Jrebe6idx3fcbRm4YfB tJQCsxiCxyOdmGCD7y1 TwIr75E1WccOmps5FlT kw7ai94yXQvy6P0kWY1 U5CuSLIygskekTMjgXt iFH3uOPHuirgsSXAarZ 0xQHZtJ0j8DsExCgT0B CmsN5ApkhV8QHJpjQOa JYWybTPXuU9gawfwv1n jbqyaJjWeAQHpVWv3VE i2ADNftWcaToNpXXG0G pA4ELX5xARdqB5lsThn tmjrtK7tSft+CWT5tEZ dvQHJWC0pSthzqHZ+PH QwGLH8hWmwQZrfQHTxa H0wDONaA7m0CkUkGzS1 GBsoV1WmhhQ0KCWqhMQ nPVIbmMYOnH2qvcigm4 fvzmpiHgEmNHOwCDe4C Il6KNMalNqsOtJyJDB0 KxA0XAK4jSYjhW1eiZw tplillP7kXkh+QmlydG koZBL9XXz9T0BdUef4O JEskLodNT2zoWXnHDer Hw2ynUceiFtbPM1iOCM xylump658MzLfd7zmQE CufWKeUAsfHBA6M70ws 4W9YHYiGIKoMLP3kIC3 wG6shOrepcrfrPUjtMj gdmVydGljYWwtYWxpZ2 82PFWtgJpxUlAdNBl0V 1MkElv8MEDohJngAY7p hYVkHWhqNu0qhBwskKe mTZ2mCVLfkvmsw311Id Jhn9hdHLKqbQLkXFsrC FH8K98ea4V7SWRaDTOb WBI0qFI2xW4diJnppff gbGVmdDsgdmVydGljYW htVUviF881VXRxzErfM yZmeUn3V1OhAfa1EOZr bBhbNF9iaEFrFKubRg9 hlNovdIuiGF9iUGNtqb dzt033KtCcv9unUXOte AInWRgzGEN9B80wo0B8 OEBrGABtKVR1yGZ0zZ4 hbGlnbjogbGVmdDsgdm GjpCuaKHaaENtpJ487D HRvcDsnPlBhdGllbnQg SFiaVDt6U2UuZicseMX +VO87OANpRI59mITdhR Hec8gbmKe6IePzSXCnY MS6dLpbVXzcp2ZwOOFr G39dkGKpu7S5BQWymUo rtWYcTpMcwIH5jQ4qPR yqaozka5fohpjqPevqj 5wnef67oK70A62iIRnb ZHRoPSIzMCUiIHZhbGl qqn0cxX5tKp7+PGNvbC O5wPY2tW4iVJSwZaT2P GsyD742CsMzgBOwVuga g1whr1zhrRl3MfW9RLV oqoTjmSagIQJ2i0LvTv 78Y21dPHfpMSSpLPAnY AYyGXBxkXvird0eyI4r Ii8+TPJdwUE1bYP5lQ7 mKeXmJfG6TUfhF586Fd CokFRsTjocG09iW0Cbc XA+EZCqYmr1PIGucZzd SJ3luIIfPBydFa0lQAX 9PzBxBwPqDLdhW4QySC PihhechhezaOR8TZGvT OXhlW28Vj4aiFoaUYIo nKYEtV8cdxrwc5edmwu hPmDmDDNyOYx6FZi8TU EinGdjHsEvZRS1IjH5A PR7lOIdrS7gjRlwcqvg kG8zL3ToHHIvzkmaHb6 3yL0oNrWyRiV4DIbrEp c+UICRFObiN9PUHqxGN FQgTTwvdGQ+PHRkIHN0 cXgvJTbjGBRruG5lBZZ zY9g1IvTyBkR2EJavJ1 JoKRWmgnblYd80uU5vI oVmNbA9JTadC8KspeQ7 TJWyhMHxSMoxNXN1W57 dy6F7YFMqTFZzKDW6lA I4bU7ozCsteqzktIWii DsgdmVydGljYWwtYWxp F275WRKhyXwoHjMcHkZ aFyS9CBY1H9QrSqg4XF JvpZvmHG1ysDEhQVfiG m1xkDijzMeeEE2eIGPm yebaDBIkzE6lLARwlEP zfRduMC4lORXuhefnz9 64PvYyWLR4FUJsuKAlZ 1EcjU4yKrGhLGLcGIAn W2FshVQbAThkL169KUk iVbP1FDXpecXtQ0OeLL QejYhdFzH4e0S5Ut92C CBZZWFyczwvdGQ+PHRk PGY6rSufAQzbGZYfmC7 sQDTqU6a8FqKqNbF3RR nlT0SnUSOwgtiqVc24y V5vAnVeQxD8TMstJ0Cf yjC1EPQkmPZvKTfsADN 2T06sw2V6FUGoGZAwPL G3rRA2eI6jfNzlhgnoj GVmdDsgdmVydGljYWwt YFkjZ513KOQlkGiyWbK lbWFsZTwvdGQ+PHRkIH B5rDteGJkmNLFnqL6pX QTzJ0q8JnBmTsK7LYsc D6KuZTLdqwcyBi16cB9 xFvQyRiU0HKpqL4Wjda V2FVPuvGBoDQrbPDT0D 09um8G5MPZrXSKjLYA6 zEB0oL6adWyqypojbEF mdDsgdmVydGljYWwtYW fwV706NXQprUngZa48f SIxcXtqblR1F2OdUdas dHI+VG82YCSpDI15fDZ muWSjq4ocyLa1UzEdIQ HbSMZ5sWmmPWsom7TiV VLyT61anRXyq8K8TOLr nBhyfMUwPfEgqYK6zN4 oJOqglprub6gkekiuUv bfb4cani30kR29P10zE HdpZHRoPSIzMCUiIHZh pVusfg9vnK7uGd8+PGN yoSX7zVU5wQ1cXqMdXl L9UNoyO874QuRflXIfN mwcc1ifb3jwiQh3TpWh RLQykpNboGdtRLA0y2R lBj55L38aMJztENOuKQ IsGEZlXZFptVlfgy3ws G9wIi8+SI4ui9hogv72 iT61iZF+DXXsXBP9eBr aNMmwWMGzuW0xXZclXd H8OKWcIsBjpM46uNDsS NwrQj1wuNjzzFwtWW5x DAMvkljbe049MwUws7w tNSQkbJVzWNwiAWD4X0 0jd3B2XUTzJQEwPSP5l WY8tS3gnBizxtnuiCZw dDsgdmVydGljYWwtYWx zM627XOGeeJufUbVmuH BwL5pvmzNIQO0dZimrw GQ+NWZfBVC8jFheUWjr SDVdfR9gHCFxJ5q9YaK jWuG4YRboL9PrrcV9FT OhaGLmZGOlrQXKuS7ug grkc2eyskdfDnWcZAFo MVt5FCr2POLpyGgvMuC aFVX2VnP1DKU2vWSaeW 4jcXlbpnkmdA9sDuz+R klOOjwvdGQ+PHRkIHN0 sGbeSQsiOPJngU2xGQG hA2m9HfQtUlT8JJzuW8 DywmQ4WJZdjAFjAALod OJHkM1vetmnf1rjdtba OjJjAWBfCIr2UCy7YOM sfMflQyXkVTD0XnY7KQ O6zTLeuH7ruFjyghoaf G9wOyc+TVJOOjwvdGQ+ UHOfWLR1hUveDQfvESL nwA6nFNYqW4v3BkIgNq U0HLnnF9TtbsE5PNBjl EXyGSHqlBDDyQ6olnsz l4mindtuGqUvVBEkPOf 1PXl4LRCdsAzqTsVaKD N1DjE0IAJ7mVKpoG3oe AaufcapcC3jPtn+UGF5 NGP6TL80GS89W5UkRxu vdGFibGU+PHRhYmxlIH dpZHRoPScxMDAlJyBzd LpxBU5kMy2zSQBhGALi bGxhcHNlOiBjb (more content not included)... Normal [facility] IgA, Quant.on 05-20-2024 IgA [Mass/Vol] 252 mg/dL Invalid Interpretation Code 64422 [facility] Comment on above: Result Comment: Perf ormed at: [facility] [id number] PhD Ramila Ackerman Performed By: #### 1 [id number] #### [facility] [address] [place] [address] IgE, Quanton 05-20-2024 IgE Qn 30 International_Unit/ mL Invalid Interpretation Code 6495 [facility] Comment on above: Result Comment: Perf ormed at: [address] [id number] MD Zack David Performed By: #### 1 [id number] #### [facility] [address] [place] [address] IgG, Quant.on 05-20-2024 IgG [Mass/Vol] 1137 mg/dL Invalid Interpretation Code [id number] [facility] Comment on above: Result Comment: Perf ormed at: [facility] [address], [place] [id number] PhD Ramila Ackerman Performed By: #### 1 [id number] #### [facility] [address] [place] [address] IgM, Quanton 05-20-2024 IgM [Mass/Vol] 102 mg/dL Invalid Interpretation Code 26-217 [facility] Comment on above: Result Comment: Perf ormed at: [facility] [address] [id number] PhD Ramila Ackerman Performed By: #### 1 [id number] #### [facility] [address] [place] [address] Vitamin D 25 Hydroxyon 05-14 25-hydroxyvitamin D3 [Mass/Vol] 46.2 ng/mL Normal 30.0-100.0 [facility] Comment on above: Performed By: #### 5 [id number] #### [facility] [address] [place] [address] BMPon 05-13-2024 Anion gap [Moles/Vol] 12 mmol/L Normal 6-16 [facility] Comment on above: Performed By: #### 2 [id number] #### [facility] [address] [place] [address] Calcium [Mass/Vol] 9.8 mg/dL Normal 8.9-11.1 [facility] Comment on above: Performed By: #### 2 [id number] #### [facility] [address] [place] [address] Chloride [Moles/Vol] 104 mmol/L Normal 101-111 [facility] Comment on above: Performed By: #### 2 [id number] #### [facility] [address] [place] [address] CO2 [Moles/Vol] 25 mmol/L Normal 21-31 [facility] Comment on above: Performed By: #### 2 [id number] #### [facility] [address] [facility] [place] [address] Creatinine [Mass/Vol] 0.9 mg/dL Normal 0.5-1.3 [facility] Comment on above: Performed By: #### 2 [id number] #### [facility] [address] [place] [address] Glucose [Mass/Vol] 86 mg/dL Normal 55-199 [facility] Comment on above: Performed By: #### 2 [id number] #### [facility] [address] [place] [address] Potassium [Moles/Vol] 4.2 mmol/L Normal 3.5-5.3 [facility] Comment on above: Performed By: #### 2 [id number] #### [facility] [address] [place] [address] Sodium [Moles/Vol] 137 mmol/L Normal 135-145 [facility] Comment on above: Performed By: #### 2 [id number] #### [facility] [address] [place] [address] Urea nitrogen [Mass/Vol] 20 mg/dL Normal 5-21 [facility] Comment on above: Performed By: #### 2 [id number] #### [facility] [address] [place] [address] Urea nitrogen/Creatinine [Mass ratio] 22 No Units High 10-20 [facility] Comment on above: Performed By: #### 2 [id number] #### [facility] [address] [place] [address] CBC w/ Auto Diffon 4 Basophils/100 WBC (Bld) 0.4 % Normal 0.0-2.0 [facility] Comment on above: Performed By: #### 2 [id number] #### [facility] [address] [place] [address] Basophils/Leukocytes Auto (Bld) [Pure # fraction] 0.0 E9/L Normal 0.0-0.2 [facility] Comment on above: Performed By: #### 2 [id number] #### [facility] [address] [place] [address] Eosinophils (Bld) [#/Vol] 0.0 E9/L Normal 0.0-0.5 [facility] Comment on above: Performed By: #### 2 [id number] #### [facility] [address] [place] [address] Eosinophils/100 WBC (Bld) 0.7 % Normal 0.0-8.0 [facility] Comment on above: Performed By: #### 2 [id number] #### [facility] [address] [place] [address] Erythrocyte distribution width (RBC) [Ratio] 12.7 % Normal 10.9-14.2 [facility] Comment on above: Performed By: #### 2 [id number] #### [facility] [address] [place] [address] Hematocrit (Bld) [Volume fraction] 41.2 % Normal 34.0-46.0 [facility] Comment on above: Performed By: #### 2 [id number] #### [facility] [address] [place] [address] Hemoglobin (Bld) [Mass/Vol] 13.9 g/dL Normal 12.0-16.0 [facility] Comment on above: Performed By: #### 2 [id number] #### [facility] [address] [place] [address] Lymphocytes (Bld) [#/Vol] 1.6 E9/L Normal 1.0-4.0 [facility] Comment on above: Performed By: #### 2 [id number] #### [facility] [address] [place] [address] Lymphocytes/100 WBC (Bld) 22.8 % Normal 14.0-50.0 [facility] Comment on above: Performed By: #### 2 [id number] #### [facility] [address] [place] [address] MCH (RBC) [Entitic mass] 30.7 pg Normal 27.0-34.0 [facility] Comment on above: Performed By: #### 2 [id number] #### [facility] [address] [place] [address] MCHC (RBC) [Mass/Vol] 33.8 g/dL Normal 31.4-36.0 [facility] Comment on above: Performed By: #### 2 [id number] #### [facility] [address] [place] [address] MCV (RBC) [Entitic vol] 90.8 fL Normal 80.0-100.0 [facility] Comment on above: Performed By: #### 2 [id number] #### [facility] [address] [place] [address] Monocytes (Bld) [#/Vol] 0.4 E9/L Normal 0.2-1.0 [facility] Comment on above: Performed By: #### 2 [id number] #### [facility] [address] [place] [address] Neutrophils (Bld) [#/Vol] 5.0 E9/L Normal 2.0-7.5 [facility] Comment on above: Performed By: #### 2 [id number] #### [facility] [address] [place] [address] Neutrophils/100 WBC (Bld) 70.3 % Normal 36.0-75.0 [facility] Comment on above: Performed By: #### 2 [id number] #### [facility] [address] [place] [address] Platelet mean volume (Bld) [Entitic vol] 8.6 fL Normal 6.4-10.8 [facility] Comment on above: Performed By: #### 2 [id number] #### [facility] [address] [place] [address] Platelets (Bld) [#/Vol] 299.0 E9/L Normal 150.0-500.0 [facility] Comment on above: Performed By: #### 2 [id number] #### [facility] [address] [place] [address] RBC (Bld) [#/Vol] 4.5 E12/L Normal 4.3-5.9 [facility] Comment on above: Performed By: #### 2 [id number] #### [facility] [address] [place] [address] WBC corrected for nucl RBC Auto (Bld) [#/Vol] 7.1 E9/L Normal 4.0-11.0 [facility] Comment on above: Performed By: #### 2 [id number] #### [facility] [address] [place] [address] CHEMISTRYOrdered By: SYSTEM SYSTEM on 05-13-2024 Anion gap [Moles/Vol] 12 mmol/L Normal 6 - 16 mEq/L Remisol Chem Calcium [Mass/Vol] 9.8 mg/dL Normal 8.9 - 11.1 mg/dL Remisol Chem Chloride [Moles/Vol] 104 mmol/L Normal 101 - 111 mmol/ L Remisol Chem CO2 [Moles/Vol] 25 mmol/L Normal 21 - 31 mmol/L Remis ol Chem Creatinine [Mass/Vol] 0.9 mg/dL Normal 0.5 - 1.3 mg/dL Remisol Chem eGFR 67 mL/min/1.73 m2 Normal >=59mL/min/1.73 m2 Remisol Chem Glucose [Mass/Vol] 86 mg/dL Normal 55 - 199 mg/dL Re misol Chem Potassium [Moles/Vol] 4.2 mmol/L Normal 3.5 - 5.3 mmol/L Remisol Chem Sodium [Moles/Vol] 137 mmol/L Normal 135 - 145 mmol/L Remisol Chem TSH Qn 2.00 m[IU]/L Normal 0.34 - 5.60 mcIU/mL Rem isol Chem Urea nitrogen [Mass/Vol] 20 mg/dL Normal 5 - 21 mg/dL Remisol Chem Urea nitrogen/Creatinine [Mass ratio] 22 mg/mg High 10 - 20 Remisol Chem Consent for Treatmenton 05-01 Consent for Treatment [id number] Normal [facility] Family Medicine Office/Clini c Noteon 05-13-2024 Family Medicine Office/Clinic Note Chief Complaint Discuss Thyroid HPI Staff Reason for visit: Discuss thyroid. History of Present Illness Kermit Rosen is a 74-year-old female who is here to discuss the lack of energy and possible thyroid issues. Chart review. The patient was recently diagnosed with pneumonia and initiated on treatment with Levaquin approximately one week prior to this admission. Laboratory evaluations conducted during this period did not reveal any abnormalities indicative of ongoing infection or complications. She has not undergone a chest x-ray within a recent timeframe, relying instead on clinical assessment for diagnosis of pneumonia. A shoulder x-ray was performed on 03/12/2024, which did not identify any fractures or significant abnormalities. A DEXA scan obtained from [facility] revealed the presence of osteoporosis. Her fracture risk is significantly elevated, as evidenced by a T-score of -3.8, indicating severe bone mineral density loss. The primary reasons for the current hospital visit include the need for laboratory testing and evaluation of persistent fatigue. A comprehensive review of the patient's vital signs has been completed. Oxygenation levels are within normal limits. Chronic bronchitis and otitis media. She has been previously managed for bronchitis with corticosteroids. She experienced symptom exacerbation several weeks post-treatment. She is currently on summer break. Her current symptoms differ from her initial ones and include odynophagia, hoarseness, coughing, and headache. She continues to experience otalgia due to tympanic membrane effusion, a symptom absent from her initial diagnosis. She reports that she has one dose of Levaquin remaining in her treatment regimen. Her current condition is characterized by fatigue, hypersomnia, productive cough, and decreased food intake, contributing to weight loss. She denies experiencing nausea, diarrhea, or vomiting. She persists with complaints of chronic pharyngeal secretions and noticing ear popping when she blows her nose. She reports cough and mild wheezing with occasional use of her prescribed inhaler. She has a history of frequent respiratory infections, having had three in 2022 and the second one in 2023. Despite her symptoms, she maintains adequate sleep. Varicose veins. She reports increased visibility of venous structures in her lower extremities, characterized by a sensation of lumpiness. She has engaged in self-care measures such as massage in an attempt to mitigate discomfort associated with these symptoms. She notes that she has been experiencing spider veins since she was 30 years old without any associated discomfort. She maintains an active lifestyle. She also notes that nitric oxide supplementation is part of her regimen, as she believes it aids in arterial relaxation. 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 Review of Systems PHQ Score Initial Depression Screen Score: 0 SCORE The pertinent positive and negative findings are as noted in the HPI. Physical Exam Vitals & Measurements T: 36.7 ?C(Temporal Artery) HR: 65(Peripheral) RR: 18 BP: 130/78 SpO2: 98% HT: 61 in HT: 154 cm WT: 54.5 kg WT: 119.9 lb BMI: 22.98 Physical exam from 04/14/2024. ENMT: Some mild posterior oropharynx injection in uvula midline. Moist mucous membranes noted. Respiratory: Wheezing and rhonchi noted to the right of the lungs, but otherwise clear to auscultation. General: alert, no acute distress, well-appearing, _pleasant Skin: warm, dry, intact Neck: Trachea midline, no adenopathy, no tenderness Eye: normal conjunctiva, sclera clear, _PERRLA Cardiovascular: regular rate and rhythm, normal peripheral perfusion, no edema ENMT: Some mild posterior oropharynx injection in uvula midline. Moist mucous membranes noted. TMs are clear, normal dentition noted Respiratory: Wheezing and rhonchi noted to the right of the lungs, but otherwise clear to auscultation. Chest wall: no deformity, nontender Neurological: oriented x 4, LOC appropriate for age, CN II-XII intact, motor strength equal & normal bilaterally, sensation equal & normal bilaterally, speech normal General: The patient is a thin female. Skin: warm, dry, intact Head: no trauma, normocephalic Neck: Trachea midline, no adenopathy, no tenderness Eye: normal conjunctiva, sclera clear, _PERRLA ENMT: Injected uvula midline noted in the posterior pharynx. TMs are erythematous with some bulging noted, greater on the left than the right. Cardiovascular: regular rate and rhythm, normal peripheral perfusion, noedema Respiratory: Slight rhonchorous breath sounds on the right side of the lungs. No wheezing is present today. Chest wall: no deformity, nontender Gastrointestinal: soft, non distended, no tenderness, no guarding. Back: Mild kyphosis is noted to the upper thoracic spine and cervical (more content not included)... Normal [facility] Comment on above: Result Comment: Elec tronically Signed By: Vilma John\.br\Date and Time Signed: 05/13/24 17:15 EDT\.br\Electronically Co-Signed By: Tashi Madison\.br\Date and Time Co-Signed: 05/12/24 18:59 EDT HEMATOLOGYOrdered By: SYSTEM SYSTEM on 05-13-2024 Basophils/100 WBC (Bld) 0.4 % Normal 0.0 - 2.0 % Remisol Heme Basophils/Leukocytes Auto (Bld) [Pure # fraction] 0.0 E9/L Normal 0.0 - 0.2 E9/L Remisol Heme Eosinophils (Bld) [#/Vol] 0.0 E9/L Normal 0.0 - 0.5 E9/L Remisol Heme Eosinophils/100 WBC (Bld) 0.7 % Normal 0.0 - 8.0 % Remisol Heme Erythrocyte distribution width (RBC) [Ratio] 12.7 % Normal 10.9 - 14.2 % Remisol Heme Hematocrit (Bld) [Volume fraction] 41.2 % Normal 34.0 - 46.0 % Remisol Heme Hemoglobin (Bld) [Mass/Vol] 13.9 g/dL Normal 12.0 - 16.0 gm/dL Remisol Heme Lymphocytes (Bld) [#/Vol] 1.6 E9/L Normal 1.0 - 4.0 E9/L Remisol Heme Lymphocytes/100 WBC (Bld) 22.8 % Normal 14.0 - 50.0 % Remisol Heme MCH (RBC) [Entitic mass] 30.7 pg Normal 27.0 - 34.0 pg Remisol Heme MCHC (RBC) [Mass/Vol] 33.8 g/dL Normal 31.4 - 36.0 gm/dL Remisol Heme MCV (RBC) [Entitic vol] 90.8 fL Normal 80.0 - 100.0 fL Remisol Heme Monocytes (Bld) [#/Vol] 0.4 E9/L Normal 0.2 - 1.0 E9/L Remisol Heme Monocytes/100 WBC (Bld) 5.8 % Normal 4.0 - 14.0 % Remisol Heme Neutrophils (Bld) [#/Vol] 5.0 E9/L Normal 2.0 - 7.5 E9/L Remisol Heme Neutrophils/100 WBC (Bld) 70.3 % Normal 36.0 - 75.0 % Remisol Heme Platelet mean volume (Bld) [Entitic vol] 8.6 fL Normal 6.4 - 10.8 fL Remisol Heme Platelets (Bld) [#/Vol] 299.0 E9/L Normal 150.0 - 500.0 E9/L Remisol Heme RBC (Bld) [#/Vol] 4.5 E12/L Normal 4.3 - 5.9 E12/L Re misol Heme WBC corrected for nucl RBC Auto (Bld) [#/Vol] 7.1 E9/L Normal 4.0 - 11.0 E9/L Remisol Heme TSH With T4fr Reflexon 05-13 TSH Qn 2.00 m[IU]/L Normal 0.34-5.60 [facility] Comment on above: Performed By: #### 1 [id number] #### [facility] [address] [place] [address] eGFRon 05-13-2024 eGFR 67 mL/min/1.73 m2 Normal >=59 [facility] Comment on above: Order Comment: Order added by Discern Expert. Performed By: #### 1 [id number] #### [facility] [address] [place] [address] Ambulatory Visit Summaryon 0 05-12-2024 Ambulatory Visit Summary KERMIT ROSEN :1950 Visit Date:05/12/2024 Ambulatory Visit Instructions Your Diagnosis Pneumonia Fatigue Chronic sinusitis with recurrent bronchitis Varicose veins of calf Otitis media of left ear Bronchitis, not specified as acute or chronic Your Care Team Attending Physician - Vilma John Primary Care Physician - Vilma John This Is Your Medications List [facility] Prescription (spacer) Non-Formulary Medication (NAC Detox Regulators) Non-Formulary Medication (Nitric Oxide Foundation) Non-Formulary Medication (Serrapeptase 40,000 SPU) albuterol (Ventolin HFA 90 mcg/inh Aerosol-Adpt) alprazolam (alprazolam 0.25 mg Tab) ascorbic acid (Vitamin C 500 mg oral tablet, chewable) brompheniramine/dex tromethorphan/PSE (Bromfed DM oral syrup) brompheniramine/dex tromethorphan/PSE (Bromfed DM oral syrup) garlic (Garlic) iodine ivermectin levofloxacin (Levaquin 750 mg Tab) magnesium amino acids chelate menaquinone (Vitamin K2) metoprolol (metoprolol 50 mg ER Tab) multivitamin with minerals (Elderberry Gummies with Vitamin C and Zinc) sertraline (sertraline 50 mg Tab) thyroid desiccated ([place] Thyroid 30 mg Tab) valsartan (valsartan 160 mg Tab) zinc acetate (zinc acetate 50 mg oral capsule) Procedures Performed Biopsy of breast (02/02/2021), Lumpectomy of right breast (02/02/2021), Dilation and curettage, Tonsillectomy, Tubal ligation, Ultrasonography guided biopsy of right breast. Discharge Vitals Temperature (Temporal Artery) 36.7 ?C Heart Rate (Peripheral) 65 Respiratory Rate 18 Blood Pressure 130/78 Height 154 cm Height 61 in Weight 54.5 kg Weight 119.9 lb BMI 22.98 What to do next Scheduled Follow-Up Appointments Friday 11:20 AM EDT With: Vilma John Where: [facility] Invalid Interpretation Code [address], [place] [address]- \.br\ You Need to Complete the Following\.br\ YOSELIN w/Reflex if POS, Blood, Routine collect, 05/12/24, Order for future visit, Lab Collect, Chronic sinusitis with recurrent bronchitis [facility] Patient Educationon 05-12-20 Patient Education Cardiovascular Varicose Veins Varicose veins are veins that have become enlarged, bulged, and twisted. They most often appear in the legs. What are the causes? This condition is caused by damage to the valves in the vein. These valves help blood return to your heart. When they are damaged and they stop working properly, blood may flow backward and back up in the veins near the skin, causing the veins to get larger and appear twisted. The condition can result from any issue that causes blood to back up, like , prolonged standing, or obesity. What increases the risk? The following factors may make you more likely to develop this condition: ? Being on your feet a lot. ? Being . ? Being overweight. ? Smoking. ? Having had a previous deep vein thrombosis or having a thrombotic disorder. ? Aging. The risk increases with age. ? Having a condition called Klippel?Trenaunay syndrome. What are the signs or symptoms? Symptoms of this condition include: ? Bulging, twisted, and bluish veins. ? A feeling of heaviness in your legs. This may be worse at the end of the day. ? Leg pain. This may be worse at the end of the day. ? Swelling in the leg. ? Changes in skin color over the veins. Swelling or pain in the legs can limit your activities. Your symptoms may get worse when you sit or stand for long periods of time. How is this diagnosed? This condition may be diagnosed based on: ? Your symptoms, family history, activity levels, and lifestyle. ? A physical exam. You may also have tests, including an ultrasound or X-ray. How is this treated? Treatment for this condition may involve: ? Avoiding sitting or standing in one position for long periods of time. ? Wearing compression stockings. These stockings help to prevent blood clots and reduce swelling in the legs. ? Raising (elevating) the legs when resting. ? Losing weight. ? Exercising regularly. If you have persistent symptoms or want to improve the way your varicose veins look, you may choose to have a procedure to close the varicose veins off or to remove them. Nonsurgical treatments to close off the veins include: ? Sclerotherapy. In this treatment, a solution is injected into a vein to close it off. ? Laser treatment. The vein is heated with a laser to close it off. ? Radiofrequency vein ablation. An electrical current produced by radio waves is used to close off the vein. Surgical treatments to remove the veins include: ? Phlebectomy. In this procedure, the veins are removed through small incisions made over the veins. ? Vein ligation and stripping. In this procedure, incisions are made over the veins. The veins are then removed after being tied (ligated) with stitches (sutures). Follow these instructions at home: Medicines ? Take fowf-efr-uoptpab and prescription medicines only as told by your health care provider. ? If you were prescribed an antibiotic medicine, use it as told by your health care provider. Do not stop using the antibiotic even if you start to feel better. Activity ? Walk as much as possible. Walking increases blood flow. This helps blood return to the heart and takes pressure off your veins. ? Do not stand or sit in one position for a long period of time. ? Do not sit with your legs crossed. ? Avoid sitting for a long time without moving. Get up to take short walks every 1?2 hours. This is important to improve blood flow and breathing. Ask for help if you feel weak or unsteady. ? Return to your normal activities as told by your health care provider. Ask your health care provider what activities are safe for you. ? Do exercises as told by your health care provider. General instructions ? Follow any diet instructions given to you by your health care provider. ? Elevate your legs at night to above the level of your heart. ? If you get a cut in the skin over the varicose vein and the vein bleeds: ? Lie down with your leg raised. ? Apply firm pressure to the cut with a clean cloth until the bleeding stops. ? Place a bandage (dressing) on the cut. ? Drink enough fluid to keep your urine pale yellow. ? Do not use any products that contain nicotine or tobacco. These products include cigarettes, chewing tobacco, and vaping devices, such as e-cigarettes. If you need help quitting, ask your health care provider. ? Wear compression stockings as told by your health care provider. Do not wear other kinds of tight clothing around your legs, pelvis, or waist. ? Keep all follow-up visits. This is important. Contact a health care provider if: ? The skin around your varicose veins starts to break down. ? You have more pain, redness, tenderness, or hard swelling over a vein. ? You are uncomfortable because of pain. ? You get a cut in the skin over a varicose vein and it will not stop bleeding. Get help right away if: ? You have chest pain. ? You have trouble breathing. ? Y (more content not included)... Normal [facility] Ambulatory Visit Summaryon 0 05-06-2024 Ambulatory Visit Summary KERMIT ROSEN :1950 Visit Date:05/06/2024 Ambulatory Visit Instructions Your Diagnosis Pneumonia, Pneumonia BMI 23.0-23.9, adult Your Care Team Attending Physician - FABIOLA AVILES, ZHOU Primary Care Physician - Esvin AVILES, Vilma Rivera This Is Your Medications List [facility] Prescription (spacer) Non-Formulary Medication (NAC Detox Regulators) Non-Formulary Medication (Nitric Oxide Foundation) Non-Formulary Medication (Serrapeptase 40,000 SPU) albuterol (Ventolin HFA 90 mcg/inh Aerosol-Adpt) alprazolam (alprazolam 0.25 mg Tab) ascorbic acid (Vitamin C 500 mg oral tablet, chewable) brompheniramine/dex tromethorphan/PSE (Bromfed DM oral syrup) brompheniramine/dex tromethorphan/PSE (Bromfed DM oral syrup) garlic (Garlic) iodine ivermectin levofloxacin (Levaquin 750 mg Tab) magnesium amino acids chelate menaquinone (Vitamin K2) metoprolol (metoprolol 50 mg ER Tab) sertraline (sertraline 50 mg Tab) thyroid desiccated ([place] Thyroid 30 mg Tab) valsartan (valsartan 160 mg Tab) zinc acetate (zinc acetate 50 mg oral capsule) Procedures Performed Biopsy of breast (02/02/2021), Lumpectomy of right breast (02/02/2021), Dilation and curettage, Tonsillectomy, Tubal ligation, Ultrasonography guided biopsy of right breast. Discharge Vitals Temperature (Temporal Artery) 36.8 ?C Heart Rate (Peripheral) 83 Blood Pressure 126/72 Height 154 cm Height 61 in Weight 55.1 kg Weight 121.22 lb BMI 23.23 What to do next Scheduled Follow-Up Appointments Friday 2:40 PM EDT With: Vilma John Where: [facility] Invalid Interpretation Code [address], [place] [address]- \.br\ Friday 1:00 PM EDT \.br\ With:\.br\ Where: [facility] Family Medicine Office/Clini c Noteon 05-06-2024 Family Medicine Office/Clinic Note HPI Staff Kermit Lafleur presents today for acute visit for sore throat, hoarse voice running nose cough and congestion _Respiratory C/O: woke up Friday morning sore throat nose running hoarse voice Duration: _ last friday Body aches: no Chest congestion: no Chills: yes Cough: yes Ear complaints: no Eye itching/watering: no Fever: no Headache: yes Nasal congestion: no Nasal discharge: yes Poor appetite: yes slept alot Reduced activity: yes Sinus pain/pressure: yes Sneezing: no Sputum production: no Wheezing: no Ill contacts: no Remedies tried: _ _ _ does do a decongestant History of Present Illness Kermit is a 74 year old female who presents for an acute visit. She usually sees Venkat Mcallister and she was not available today. She reports she was told a few weeks ago by her PCP she had walking pneumonia. Kermit refused abx tx at that time, and only took a steroid. Today she reports she is no better. She is coughing, and generally feels sick. She reports she usually gets bronchitis a few times a year. I did offer her pulmonary rehab or a mining engineering technologist referral, but she is not yet interested. She has a follow up scheduled with her PCP for next week. The staff HPI was reviewed and is accurate. She is not interested in a chest xray. Strep negative today. Review of Systems PHQ Score Initial Depression Screen Score: 0 SCORE Physical Exam Vitals & Measurements T: 36.8 ?C(Temporal Artery) HR: 83(Peripheral) BP: 126/72 SpO2: 95% HT: 61 in HT: 154 cm WT: 55.1 kg WT: 121.22 lb BMI: 23.23 Lungs: diminished t/o posterior lung alves. Exp wheeze. Scant rhonchi RLL posteriorly. Throat: erythematous, no exudate General: alert, no acute distress ENMT: TM's clear, oral mucosa moist, no pharyngeal erythema or exudate Cardiovascular: regular rate and rhythm, normal peripheral perfusion Extremities: no deformity, no trauma Neurological: oriented x 4, LOC appropriate for age, CN II-XII intact, motor strength equal & normal bilaterally, sensation equal & normal bilaterally, speech normal Assessment/Plan 1. Pneumonia, (J18.9: Pneumonia, unspecified organism)Pneumonia levaquin as prescribed consider pulmonary rehab or pulmonary consult consider cxr if no improvement Ordered: levofloxacin, 750 mg = 1 tab(s), Oral, Daily, X 7 day(s), # 7 tab(s), Refills(s) 0, Pharmacy: [facility], 154, cm, 05/06/24 15:09:00 EDT, Height/Length Dosing, 55.1, kg, 05/06/24 15:22:00 EDT, Weight Dosing 2. BMI 23.0-23.9, adult (Z68.23: Body mass index [BMI] 23.0-23.9, adult) Continue to monitor Ordered: 1126F Pain severity quantified; no pain present Body Mass Index (BMI) documented 3008F Current tobacco non-user 1036F Depression Screening Negative 3352F Influenza immunization status assessed 1030F Most recent diastolic blood pressure <80 mm Hg 3078F Patient screen for fall risk: no falls in last year or 1 fall with no injury in last year 1101F Systolic BP <130 mm Hg (Most Recent) 3074F Follow-up No qualifying data available Problem List/Past Medical History Ongoing Atypical migraine B12 deficiency Benign essential hypertension Bronchitis Bulging of cervical intervertebral disc Cervical radiculitis Hand numbness Izzy's thyroiditis Hernia, ventral Hx of colonic polyp Hyperlipidemia, mild Hypokalemia Hypothyroidism Left shoulder pain Mild CAD Mild recurrent major depression Nasal septal ulcer Occipital neuralgia Osteoporosis Personal history of breast cancer Pneumonia Post-nasal drip Postmenopause atrophic vaginitis Short-term memory loss Situational insomnia Vaginal bleeding problems Vertigo Vitamin D deficiency Wellness examination Historical Anxiety Breast cancer of upper-inner quadrant of right female breast 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 Medications alprazolam 0.25 mg Tab, 0.25 mg= 1 tab(s), Oral, Daily, PRN [place] Thyroid 30 mg Tab, 30 mg= 1 tab(s), Oral, Daily, 6 refills Bromfed DM oral syrup, 5 mL, Oral, QID, PRN Bromfed DM oral syrup, 5 mL, Oral, QID, PRN Garlic, See Instructions iodine ivermectin, 12 mg, Oral, Once Levaquin 750 mg Tab, 750 mg= 1 tab(s), Oral, Daily magnesium amino acids chelate metoprolol 50 mg ER Tab, 50 mg= 1 tab(s), Oral, Daily NAC Detox Regulators, Oral, Daily Nitric Oxide Foundation, 2 tab(s), Oral, Daily Serrapeptase 40,000 SPU, Oral, Daily sertraline 50 mg Tab, 50 mg= 1 tab(s), Oral, Daily, 1 refills spacer, See Instructions, 1 refills valsartan 160 mg Tab Ventolin HFA 90 mcg/inh Aerosol-Adpt, 2 puff(s), Inhalation, QID, PRN Vitamin C 500 mg oral tablet, chewable, 500 mg= 1 tab(s), Chewed, Daily Vitamin K2 zinc (more content not included)... Normal [facility] Comment on above: Result Comment: Elec tronically Signed By: FABIOLA AVILES, ZHOU\.br\Date and Time Signed: 05/06/24 16:22 EDT Family Medicine Office/Clini c Noteon 04-16-2024 Family Medicine Office/Clinic Note Chief Complaint Cough/Wheezing/Enmanuel estion HPI Staff Reason for visit: Congestion, coughing, wheezing Signs and Symptoms Onset: 04/09/24 Body aches: no Chest congestion: yes Chills: yes Nausea: Yes Cough: yes Ear complaints: no Eye itching/watering: no Fever: yes Headache: no Nasal congestion: yes Nasal discharge: yes Poor appetite: yes Reduced activity: yesPatient states she has been kind of weak and tired Sinus pain/pressure: yes Sneezing: yes Sputum production: yes Wheezing: yes 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 The information was verified and is correct. Additional information provided if needed. Kermit Rosen is a 74-year-old female who presents for evaluation of multiple medical concerns. Her blood pressure is slightly elevated today. We are going to discuss that, but she is currently here for cough and congestion. Flu and COVID-19 were done today and were negative in the office. She is complaining of chest congestion and chills that started about 5 days ago. She does report fever, fatigue, poor appetite, nasal congestion, nasal drainage, productive. She is a patient of mine. Cough and Congestion The patient has been experiencing a persistent cough and congestion for the past 5 days. She has exhausted her supply of Elderberry and has been self-administering ivermectin, a medication she obtained from [facility]. This regimen includes daily intake of a zinc supplement and twice a day oil of oregano natural antibiotic supplement, which has significantly reduced her mucus production. She mentions that after taking it for a couple of days, she began to expel yellow drainage. She still has some clear drainage. She continues to experience chest tightness and has been using her inhaler intermittently. She is uncertain about her ears but reports an unusual sensation in her head. 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 She also reports intermittent nausea but denies any episodes of vomiting. Her swallowing function is normal. She has been off work throughout the week and is seeking a letter to excuse her for the remainder of the week. She has taken Tylenol or Motrin for her fever. She has a history of 3 episodes of pneumonia in 2022, with the second episode being diagnosed as bronchitis. A few days ago, she experienced a sudden onset of body heat, sweating, and chills, which resolved spontaneously. She attributes her symptoms to her cough and heaviness. Her strength is improving, but she continues to experience weakness and body aches. She has been sleeping more than usual and has lost 1 to 2 pounds due to a decreased appetite. She denies any diarrhea. She has been using an albuterol inhaler with a spacer, which has been beneficial for her lungs. She does not do better with coughing medication pill and has not been effective for her. Digestive Health The patient is overdue for a colonoscopy, having had one in the past due to a polyp. She reports fluctuating bowel movements. General Health She has a history of breast cancer. Her brother from colon cancer last summer. Most of her family seemed to have some form of cancer. Review of Systems The pertinent positive and negative findings are as noted in the HPI. Physical Exam Vitals & Measurements T: 36.5 ?C(Temporal Artery) HR: 60(Peripheral) RR: 18 BP: 120/80 SpO2: 97% HT: 61 in HT: 154 cm WT: 56.0 kg WT: 123.2 lb BMI: 23.61 ENMT: Some mild posterior oropharynx injection in uvula midline. Moist mucous membranes noted. Respiratory: Wheezing and rhonchi noted to the right of the lungs, but otherwise clear to auscultation. General: alert, no acute distress, wellappearing, _pleasant Skin: warm, dry, intact Neck: Trachea midline, no adenopathy, no tenderness Eye: normal conjunctiva, sclera clear, _PERRLA Cardiovascular: regular rate and rhythm, normal peripheral perfusion, noedema ENMT: Some mild posterior oropharynx injection in uvula midline. Moist mucous membranes noted. TMs are clear, normal dentition noted Respiratory: Wheezing and rhonchi noted to the right of the lungs, but otherwise clear to auscultation. Chest wall: no deformity, nontender Neurological: oriented x 4, LOC appropriate for age, CN II-XII intact, motor strength equal & normal bilaterally, sensation equal & normal bilaterally, speech normal Assessment/Plan 1. Bronchitis (J40: Bronchitis, not specified as acute or chronic) Reviewed with patient that physical exam and symptoms are consistent with a viral infection. Discussed antibiotics unfortunately do not treat viral illnesses, it will take time to run its course. The first 3-5 days of symptoms are typically the worst (fever, body aches, etc), with cold symptoms lasting 7-14 days. Encouraged fluids to keep secretion (more content not included)... Normal [facility] Comment on above: Result Comment: Elec tronically Signed By: Vilma John\.br\Date and Time Signed: 04/16/24 05:17 EDT\.br\Electronically Co-Signed By: Floridalma Soliman\.br\Date and Time Co-Signed: 04/14/24 12:24 EDT Ambulatory Visit Summaryon 0 04-14-2024 Ambulatory Visit Summary KERMIT ROSEN hSaw :1950 Visit Date:04/14/2024 Ambulatory Visit Instructions Your Diagnosis Bronchitis Hx of colonic polyp Flu-like symptoms Family hx of colon cancer Your Care Team Attending Physician - Vilma John Primary Care Physician - Vilma John This Is Your Medications List brompheniramine/dex tromethorphan/PSE (Bromfed DM oral syrup) methylPREDNISolone (Medrol 4 mg Tab) Contact prescribing physician if questions or concerns Misc Prescription (spacer) Non-Formulary Medication (NAC Detox Regulators) Non-Formulary Medication (Nitric Oxide Foundation) Non-Formulary Medication (Serrapeptase 40,000 SPU) albuterol (Ventolin HFA 90 mcg/inh Aerosol-Adpt) alprazolam (alprazolam 0.25 mg Tab) ascorbic acid (Vitamin C 500 mg oral tablet, chewable) brompheniramine/dex tromethorphan/PSE (Bromfed DM oral syrup) garlic (Garlic) iodine ivermectin magnesium amino acids chelate menaquinone (Vitamin K2) metoprolol (metoprolol 50 mg ER Tab) mupirocin topical (mupirocin Top 2% Oint) sertraline (sertraline 50 mg Tab) thyroid desiccated ([place] Thyroid 30 mg Tab) valsartan (valsartan 160 mg Tab) zinc acetate (zinc acetate 50 mg oral capsule) [Image Removed: STOP]Stop taking these medications aspirin (aspirin 81 mg oral tablet) elderberry Procedures Performed Biopsy of breast (02/02/2021), Lumpectomy of right breast (02/02/2021), Dilation and curettage, Tonsillectomy, Tubal ligation, Ultrasonography guided biopsy of right breast. Discharge Vitals Temperature (Temporal Artery) 36.5 ?C Heart Rate (Peripheral) 60 Respiratory Rate 18 Blood Pressure 140/68 Height 154 cm Height 61 in Weight 56.0 kg Weight 123.2 lb BMI 23.61 What to do next Scheduled Follow-Up Appointments Friday 11:20 AM EDT With: Vilma John Where: [facility] [address] [facility], [place] [address]- \.br\ Medications\.br\ What How Much When Why Instructions\.br\ New brompheniramine/ dextromethorphan/ PSE (Bromfed DM oral syrup) 5 Milliliter By Mouth 4 times a day as needed for for cough and congestion Bronchitis Flu-like symptoms Pickup at [facility]\.br\ New methylPREDNISolone (Medrol 4 mg Tab) 1 Packets By Mouth As Directed Bronchitis Flu-like symptoms Duration: 6 Days as directed on package labeling Pickup at [facility] 1985\.br\ Unchanged albuterol (Ventolin HFA 90 mcg/ inh Aerosol-Adpt) 2 Puffs Inhalation 4 times a day as needed for for wheezing Viral bronchitis Contact prescribing physician if questions or concerns \.br\ Unchanged alprazolam (alprazolam 0.25 mg Tab) 1 Tablets By Mouth Every day as needed for for insomnia Situational insomnia Contact prescribing physician if questions or concerns \.br\ Unchanged ascorbic acid (Vitamin C 500 mg oral tablet, chewable) 1 Tablets Chewed Every day Contact prescribing physician if questions or concerns \.br\ Unchanged brompheniramine/ dextromethorphan/ PSE (Bromfed DM oral syrup) 5 Milliliter By Mouth 4 times a day as needed for for cough and congestion Contact prescribing physician if questions or concerns \.br\ Unchanged garlic (Garlic) See instructions 1 tab daily OTC Contact prescribing physician if questions or concerns \.br\ Unchanged iodine Contact prescribing physician if questions or concerns \.br\ Unchanged ivermectin 12 Milligram By Mouth Once Contact prescribing physician if questions or concerns \.br\ Unchanged magnesium amino acids chelate Contact prescribing physician if questions or concerns \.br\ Unchanged menaquinone (Vitamin K2) Contact prescribing physician if questions or concerns \.br\ Unchanged metoprolol (metoprolol 50 mg ER Tab) 1 Tablets By Mouth Every day Contact prescribing physician if questions or concerns \.br\ Unchanged Misc Prescription (spacer) See instructions Bronchitis Sinusitis BMI 23.0-23.9, adult please dispense an adult mdi spacer chamber Contact prescribing physician if questions or concerns \.br\ Unchanged mupirocin topical (mupirocin Top 2% Oint) 1 Application Topical 3 times a day Nasal septal ulcer Contact prescribing physician if questions or concerns \.br\ Unchanged Non-Formulary Medication (NAC Detox Regulators) By Mouth Every day Selenium 500 mcg, Molybdenum 50 mcg, and N-Acetylcysteine 600 mg Contact prescribing physician if questions or concerns \.br\ Unchanged Non-Formulary Medication (Nitric Oxide Foundation) 2 Tablets By Mouth Every day Vitamin C 290 mg, Thiamin 90mg, B12 200 mcg, Magnesium 75 mg, Potassium 189 mg, 500mg (postassium nitrate, beet root extract and fermented beet root powder). For Circulatory Support Contact prescribing physician if questions or concerns \.br\ Unchanged Non-Formulary Medication (Serrapeptase 40,000 SPU) By Mouth Every day Calcium 27 mg and Serrapeptase Enzyme 40,000 SPU. support healthy sinuses and breakdown unwanted proteins Contact prescribing physician if questions or concerns \.br\ Unchanged sertraline (sertraline 50 mg Tab) 1 Tablets By Mouth Every day Contact prescribing physician if questions or concerns \.br\ Unchanged thyroid desiccated ([place] Thyroid 30 mg Tab) 1 Tablets By Mouth Every day Hypothyroidism no Generic substitutions please - Contact prescribing physician if questions or concerns \.br\ Unchanged valsartan (valsartan 160 mg Tab) 90 EA, TAKE 1 TABLET BY MOUTH ONCE DAILY Contact prescribing physician if questions or concerns \.br\ Unchanged zinc acetate (zinc acetate 50 mg oral capsule) 1 Capsules By Mouth Every day on an empty stomach 1 hour before or 2 hours after eating Contact prescribing physician if questions or concerns \.br\ Pharmacy Information\.br\ [facility]: [address] [place], [place] [id number] [phone]\.br\ \.br\ What How Much When Comments\.br\ Stop Taking aspirin (aspirin 81 mg oral tablet) 1 Tablets By Mouth Every day\.br\ Stop Taking elderberry\.br\ Allergies\.br\ Citalopram Hydrobromide (Unknown)\.br\ propranolol (hives)\.br\ diclofenac sodium (BP rises)\.br\ CeleXA (Unknown)\.br\ Voltaren Topical (Hypertension)\.br\ doxycycline (Yeast infection)\.br\ hydroCHLOROthiazide (Electrolyte disturbance)\.br\ lisinopril (Unknown)\.br\ Problems\.br\ Ongoing - Any problem that you are currently receiving treatment for.\.br\ Atypical migraine\.br\ B12 deficiency\.br\ Benign essential hypertension\.br\ Bronchitis\.br\ Bulging of cervical intervertebral disc\.br\ Cervical radiculitis\.br\ Hand numbness\.br\ Izzy's thyroiditis\.br\ Hernia, ventral\.br\ Hx of colonic polyp\.br\ Hyperlipidemia, mild\.br\ Hypokalemia\.br\ Hypothyroidism\.br\ Left shoulder pain\.br\ Mild CAD\.br\ Mild recurrent major depression\.br\ Nasal septal ulcer\.br\ Occipital neuralgia\.br\ Osteoporosis\.br\ Personal history of breast cancer\.br\ Post-nasal drip\.br\ Postmenopause atrophic vaginitis\.br\ Short-term memory loss\.br\ Situational insomnia\.br\ Vaginal bleeding problems\.br\ Vertigo\.br\ Vitamin D deficiency\.br\ Wellness examination\.br\ Historical - Any problem that you are no longer receiving treatment for.\.br\ Anxiety\.br\ Breast cancer of upper-inner quadrant of right female breast\.br\ 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 Please share your experience with us by completing your survey. We appreciate your feedback and thank you for choosing us for your care.\.br\ \.br\ [facility] Patient Educationon 04-14-20 Patient Education Infectious Disease Upper Respiratory Infection, Adult An upper respiratory infection (URI) is a common viral infection of the nose, throat, and upper air passages that lead to the lungs. The most common type of URI is the common cold. URIs usually get better on their own, without medical treatment. What are the causes? A URI is caused by a virus. You may catch a virus by: ? Breathing in droplets from an infected person's cough or sneeze. ? Touching something that has been exposed to the virus (is contaminated) and then touching your mouth, nose, or eyes. What increases the risk? You are more likely to get a URI if: ? You are very young or very old. ? You have close contact with others, such as at work, school, or a health care facility. ? You smoke. ? You have long-term (chronic) heart or lung disease. ? You have a weakened disease-fighting system (immune system). ? You have nasal allergies or asthma. ? You are experiencing a lot of stress. ? You have poor nutrition. What are the signs or symptoms? A URI usually involves some of the following symptoms: ? Runny or stuffy (congested) nose. ? Cough. ? Sneezing. ? Sore throat. ? Headache. ? Fatigue. ? Fever. ? Loss of appetite. ? Pain in your forehead, behind your eyes, and over your cheekbones (sinus pain). ? Muscle aches. ? Redness or irritation of the eyes. ? Pressure in the ears or face. How is this diagnosed? This condition may be diagnosed based on your medical history and symptoms, and a physical exam. Your health care provider may use a swab to take a mucus sample from your nose (nasal swab). This sample can be tested to determine what virus is causing the illness. How is this treated? URIs usually get better on their own within 7?10 days. Medicines cannot cure URIs, but your health care provider may recommend certain medicines to help relieve symptoms, such as: ? Kwzj-ztp-xpmuvji cold medicines. ? Cough suppressants. Coughing is a type of defense against infection that helps to clear the respiratory system, so take these medicines only as recommended by your health care provider. ? Fever-reducing medicines. Follow these instructions at home: Activity ? Rest as needed. ? If you have a fever, stay home from work or school until your fever is gone or until your health care provider says your URI cannot spread to other people (is no longer contagious). Your health care provider may have you wear a face mask to prevent your infection from spreading. Relieving symptoms ? Gargle with a mixture of salt and water 3?4 times a day or as needed. To make salt water, completely dissolve ??1 tsp (3?6 g) of salt in 1 cup (237 mL) of warm water. ? Use a cool-mist humidifier to add moisture to the air. This can help you breathe more easily. Eating and drinking ? Drink enough fluid to keep your urine pale yellow. ? Eat soups and other clear broths. General instructions ? Take ibqx-qtk-rjxbvhj and prescription medicines only as told by your health care provider. These include cold medicines, fever reducers, and cough suppressants. ? Do not use any products that contain nicotine or tobacco. These products include cigarettes, chewing tobacco, and vaping devices, such as e-cigarettes. If you need help quitting, ask your health care provider. ? Stay away from secondhand smoke. ? Stay up to date on all immunizations, including the yearly (annual) flu vaccine. ? Keep all follow-up visits. This is important. How to prevent the spread of infection to others URIs can be contagious. To prevent the infection from spreading: ? Wash your hands with soap and water for at least 20 seconds. If soap and water are not available, use hand internet assessor. ? Avoid touching your mouth, face, eyes, or nose. ? Cough or sneeze into a tissue or your sleeve or elbow instead of into your hand or into the air. Contact a health care provider if: ? You are getting worse instead of better. ? You have a fever or chills. ? Your mucus is brown or red. ? You have yellow or brown discharge coming from your nose. ? You have pain in your face, especially when you bend forward. ? You have swollen neck glands. ? You have pain while swallowing. ? You have white areas in the back of your throat. Get help right away if: ? You have shortness of breath that gets worse. ? You have severe or persistent: ? Headache. ? Ear pain. ? Sinus pain. ? Chest pain. ? You have chronic lung disease along with any of the following: ? Making high-pitched whistling sounds when you breathe, most often when you breathe out (wheezing). ? Prolonged cough (more than 14 days). ? Coughing up blood. ? A change in your usual mucus. ? You have a stiff neck. ? You have changes in your: ? Vision. ? Hearing. ? Thinking. ? Mood. These symptoms may be an emergency. Get help (more content not included)... Normal [facility] Provider Letteron 04-14-2024 Provider Letter April 14, 2024 KERMIT ROSEN [address] [place] [address] : 1950 To Whom It May Concern, Please excuse above patient from work. Date of Illness: From: 04/12/2024 To: 04/06/2024 May Return to Work On: 04/19/2024 Restrictions: None Comments: None Sincerely, [facility] [address] [place] [address], [place] [address] Normal [facility] XR Shoulder Complete Lefton 03-12-2024 XR Shoulder Complete Left Exam Date/Time: 03/10/2024 11:30 EDT Reason for Exam: M25.512;Pain, Non Traumatic Report IMPRESSION: No acute osseous findings. Degenerative changes. EXAMINATION/TECHNIQ UE: XR Shoulder Complete Left HISTORY: Left shoulder pain. COMPARISON: None RESULT: No evidence for acute fracture. No dislocation. Glenohumeral joint space maintained with small osteophytes. Mild degenerative changes of the acromioclavicular joint. Downsloping of the acromion. Visualized lung grossly clear. No other significant abnormality. Ordering Provider: Vilma Mcallister FINAL REPORT Dictated: 03/12/2024 3:17 pm Greg Tierney MD. Signed (Electronic Signature): 03/12/2024 3:17 pm Signed by: Greg Tierney MD Transcribed by: EL Technologist: MICHEL Technical Comments Radiation Dose: Ka,r in mGy = na DAP = na Normal [facility] Consent for Treatmenton 03-01 Consent for Treatment [id number] Normal [facility] Family Medicine Office/Clini c Noteon 02-09-2024 Family Medicine Office/Clinic Note Chief Complaint Discuss labs, MRI, and Thyroid medicaiton HPI Staff Reason for Visit: Patient here to discuss labs, thyroid medication, and MRI results Labs Done: February 03, 2024 Health Maintenance: Breast Cancer Screening Due History of Present Illness Kermit Rosen 74-year-old female who would like to discuss her laboratory results, thyroid medications, and MRI results. Cardiac health. 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 She expressed concerns about negative information she has read regarding statins. Her carotid artery MRI results were discussed today, 02/06/2024. She is currently taking low-dose aspirin and does not have any cardiac stents. She had a 40% blockage in her main artery, approximately 3 to 4 years ago. She frequently consumes potato chips. She purchases nitric oxide supplements when financially feasible. She is currently on statin medication. Hypothyroidism. She is currently taking [place] Thyroid 30 mg, which seems to be effective. She believes that iodine significantly benefits her thyroid function; however, she is experiencing hair loss, which she attributes to the use of generic medication. She was transitioned to the generic version at [facility]. She prefers the branded version. She expresses skepticism about the equivalence of generic and branded medications. Hormones. Her hormonal assays were performed, including progesterone, DHEA, estrogen, and testosterone levels. She is aware that her progesterone level had slightly decreased, prompting her to initiate using progesterone cream. She believes that progesterone overload is not possible. She is postmenopausal. She administers progesterone cream for 21 days, followed by a break of 7 days. Cervical spinal stenosis. She has mild arthritis in the spine, as confirmed by cervical spine MRI. She occasionally experiences hand numbness upon waking. She noted a deep spot on the lower spinal area sometimes bothers her, but today is asymptomatic. She has had neck arthritis in the past. Migraines. She suffers from severe migraines, which can be sporadic, sometimes occurring as frequently as 2 times in a single weekend. She experiences symptoms of cognitive impairment during these episodes, including difficulty with word retrieval and thought processes. She reports being distressed with her symptoms. She notes that the severity of these symptoms seems to have increased compared to previous migraine episodes. She is currently not interested in consulting a neurologist or receiving injectable treatments for her migraines; instead, she is exploring dietary supplements aimed at enhancing brain function and overall nutrition. Left shoulder pain. She reports increased pain in her left shoulder, suspecting it to be arthritis related. She experiences difficulty in lifting her arm due to pain, which subsides after a short period. She has a history of arthritis in her feet, knees, and hands. She is currently not taking any supplements such as chondroitin, due to her extensive medication regimen. She uses a topical analgesic cream she acquired from an Lutheran man, which provides pain relief when applied to her hands. She adheres to a diet believed to alleviate arthritis symptoms. Supplemental information. Her bowel movements are regular. Her ocular and auditory functions are normal, indicating overall good health. Results discussion. All laboratory results were reviewed and discussed during today's consultation. 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 Review of Systems PHQ Score Initial Depression Screen Score: 0 SCORE The pertinent positive and negative findings are as noted in the HPI. Physical Exam Vitals & Measurements T: 36.4 ?C(Temporal Artery) HR: 67(Peripheral) RR: 18 BP: 130/70 SpO2: 98% HT: 61 in HT: 154 cm WT: 57.5 kg WT: 126.5 lb BMI: 24.25 General: Older, pleasant female, thin, no distress. Skin: warm, dry, intact Head: no trauma, normocephalic Neck: Trachea midline, no adenopathy, no tenderness Eye: normal conjunctiva, sclera clear, _PERRLA ENMT: oral mucosa moist, no pharyngeal erythema or exudate, normaldentition Cardiovascular: regular rate and rhythm, normal peripheral perfusion, noedema Respiratory: Lungs CTA, respirations non labored Chest wall: no deformity, nontender Back: No tenderness, Normal ROM, Normal alignment. Extremities: no deformity, no trauma Neurological: oriented x 4, LOC appropriate for age, CN II-XII intact, motor strength equal & normal bilaterally, sensation equal & normal bilaterally, speech normal Psychiatric: cooperative? , affect appropriate for age? , normal? judgement, normal? psychiatric thoughts. Assessment/Plan 1. 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 She will continue sertraline 50 mg once daily. Discussed red flags/when to seek emergency care (more content not included)... Normal [facility] Comment on above: Result Comment: Elec tronically Signed By: Vilma John\.br\Date and Time Signed: 02/09/24 06:29 EDT\.br\Electronically Co-Signed By: Verenice Echols\.br\Date and Time Co-Signed: 02/06/24 14:44 EST Ambulatory Visit Summaryon 0 02-06-2024 Ambulatory Visit Summary KERMIT ROSEN :1950 Visit Date:02/06/2024 Ambulatory Visit Instructions Your Diagnosis Mild recurrent major depression Hypothyroidism Cervical spinal stenosis Bulging of cervical intervertebral disc Atypical migraine Left shoulder pain BMI 24.0-24.9, adult Your Care Team Attending Physician - Vilma John Primary Care Physician - Vilma John This Is Your Medications List thyroid desiccated ([place] Thyroid 30 mg Tab) Contact prescribing physician if questions or concerns Misc Prescription (spacer) Non-Formulary Medication (NAC Detox Regulators) Non-Formulary Medication (Nitric Oxide Foundation) Non-Formulary Medication (Serrapeptase 40,000 SPU) albuterol (Ventolin HFA 90 mcg/inh Aerosol-Adpt) alprazolam (alprazolam 0.25 mg Tab) ascorbic acid (Vitamin C 500 mg oral tablet, chewable) aspirin (aspirin 81 mg oral tablet) brompheniramine/dex tromethorphan/PSE (Bromfed DM oral syrup) elderberry garlic (Garlic) iodine magnesium amino acids chelate menaquinone (Vitamin K2) metoprolol (metoprolol 50 mg ER Tab) mupirocin topical (mupirocin Top 2% Oint) sertraline (sertraline 50 mg Tab) valsartan (valsartan 160 mg Tab) zinc acetate (zinc acetate 50 mg oral capsule) Procedures Performed Biopsy of breast (02/02/2021), Lumpectomy of right breast (02/02/2021), Dilation and curettage, Tonsillectomy, Tubal ligation, Ultrasonography guided biopsy of right breast. Discharge Vitals Temperature (Temporal Artery) 36.4 ?C Heart Rate (Peripheral) 67 Respiratory Rate 18 Blood Pressure 130/70 Height 154 cm Height 61 in Weight 57.5 kg Weight 126.5 lb BMI 24.25 What to do next Scheduled Follow-Up Appointments Friday 11:20 AM EDT With: Vilma John Where: [facility] [address], [address] [place] [address]- \.br\ Medications\.br\ What How Much When Why Instructions\.br\ Changed thyroid desiccated ([place] Thyroid 30 mg Tab) 1 Tablets By Mouth Every day Hypothyroidism no Generic substitutions please - Pickup at [id number]\.br\ Unchanged albuterol (Ventolin HFA 90 mcg/ inh Aerosol-Adpt) 2 Puffs Inhalation 4 times a day as needed for for wheezing Viral bronchitis Contact prescribing physician if questions or concerns \.br\ Unchanged alprazolam (alprazolam 0.25 mg Tab) 1 Tablets By Mouth Every day as needed for for insomnia Situational insomnia Contact prescribing physician if questions or concerns \.br\ Unchanged ascorbic acid (Vitamin C 500 mg oral tablet, chewable) 1 Tablets Chewed Every day Contact prescribing physician if questions or concerns \.br\ Unchanged aspirin (aspirin 81 mg oral tablet) 1 Tablets By Mouth Every day Contact prescribing physician if questions or concerns \.br\ Unchanged brompheniramine/ dextromethorphan/ PSE (Bromfed DM oral syrup) 5 Milliliter By Mouth 4 times a day as needed for for cough and congestion Contact prescribing physician if questions or concerns \.br\ Unchanged elderberry Contact prescribing physician if questions or concerns \.br\ Unchanged garlic (Garlic) See instructions 1 tab daily OTC Contact prescribing physician if questions or concerns \.br\ Unchanged iodine Contact prescribing physician if questions or concerns \.br\ Unchanged magnesium amino acids chelate Contact prescribing physician if questions or concerns \.br\ Unchanged menaquinone (Vitamin K2) Contact prescribing physician if questions or concerns \.br\ Unchanged metoprolol (metoprolol 50 mg ER Tab) 1 Tablets By Mouth Every day Contact prescribing physician if questions or concerns \.br\ Unchanged Misc Prescription (spacer) See instructions Bronchitis Sinusitis BMI 23.0-23.9, adult please dispense an adult mdi spacer chamber Contact prescribing physician if questions or concerns \.br\ Unchanged mupirocin topical (mupirocin Top 2% Oint) 1 Application Topical 3 times a day Nasal septal ulcer Contact prescribing physician if questions or concerns \.br\ Unchanged Non-Formulary Medication (NAC Detox Regulators) By Mouth Every day Selenium 500 mcg, Molybdenum 50 mcg, and N-Acetylcysteine 600 mg Contact prescribing physician if questions or concerns \.br\ Unchanged Non-Formulary Medication (Nitric Oxide Foundation) 2 Tablets By Mouth Every day Vitamin C 290 mg, Thiamin 90mg, B12 200 mcg, Magnesium 75 mg, Potassium 189 mg, 500mg (postassium nitrate, beet root extract and fermented beet root powder). For Circulatory Support Contact prescribing physician if questions or concerns \.br\ Unchanged Non-Formulary Medication (Serrapeptase 40,000 SPU) By Mouth Every day Calcium 27 mg and Serrapeptase Enzyme 40,000 SPU. support healthy sinuses and breakdown unwanted proteins Contact prescribing physician if questions or concerns \.br\ Unchanged sertraline (sertraline 50 mg Tab) 1 Tablets By Mouth Every day Contact prescribing physician if questions or concerns \.br\ Unchanged valsartan (valsartan 160 mg Tab) 90 EA, TAKE 1 TABLET BY MOUTH ONCE DAILY Contact prescribing physician if questions or concerns \.br\ Unchanged zinc acetate (zinc acetate 50 mg oral capsule) 1 Capsules By Mouth Every day on an empty stomach 1 hour before or 2 hours after eating Contact prescribing physician if questions or concerns \.br\ Pharmacy Information\.br\ [facility]: [id number] [place], [place] [id number] [phone]\.br\ Allergies\.br\ Citalopram Hydrobromide (Unknown)\.br\ propranolol (hives)\.br\ diclofenac sodium (BP rises)\.br\ CeleXA (Unknown)\.br\ Voltaren Topical (Hypertension)\.br\ doxycycline (Yeast infection)\.br\ hydroCHLOROthiazide (Electrolyte disturbance)\.br\ lisinopril (Unknown)\.br\ Problems\.br\ Ongoing - Any problem that you are currently receiving treatment for.\.br\ Atypical migraine\.br\ B12 deficiency\.br\ Benign essential hypertension\.br\ Bronchitis\.br\ Bulging of cervical intervertebral disc\.br\ Cervical radiculitis\.br\ Cervical spinal stenosis\.br\ Cough\.br\ Hand numbness\.br\ Izzy's thyroiditis\.br\ Hernia, ventral\.br\ Hyperlipidemia, mild\.br\ Hypokalemia\.br\ Hypothyroidism\.br\ Left shoulder pain\.br\ Mild CAD\.br\ Mild recurrent major depression\.br\ Nasal septal ulcer\.br\ Occipital neuralgia\.br\ Osteoporosis\.br\ Persistent cough\.br\ Personal history of breast cancer\.br\ Post-nasal drip\.br\ Postmenopause atrophic vaginitis\.br\ Short-term memory loss\.br\ Situational insomnia\.br\ Vaginal bleeding problems\.br\ Vertigo\.br\ Vitamin D deficiency\.br\ Wellness examination\.br\ Historical - Any problem that you are no longer receiving treatment for.\.br\ Anxiety\.br\ Breast cancer of upper-inner quadrant of right female breast\.br\ 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 Please share your experience with us by completing your survey. We appreciate your feedback and thank you for choosing us for your care.\.br\ \.br\ [facility] Patient Educationon 02-06-20 Patient Education Endocrinology Hypothyroidism Hypothyroidism is when the thyroid gland does not make enough of certain hormones. This is called an underactive thyroid. The thyroid gland is a small gland located in the lower front part of the neck, just in front of the windpipe (trachea). This gland makes hormones that help control how the body uses food for energy (metabolism) as well as how the heart and brain function. These hormones also play a role in keeping your bones strong. When the thyroid is underactive, it produces too little of the hormones thyroxine (T4) and triiodothyronine (T3). What are the causes? This condition may be caused by: ? Izzy's disease. This is a disease in which the body's disease-fighting system (immune system) attacks the thyroid gland. This is the most common cause. ? Viral infections. ? . ? Certain medicines. ? defects. ? Problems with a gland in the center of the brain (pituitary gland). ? Lack of enough iodine in the diet. Other causes may include: ? Past radiation treatments to the head or neck for cancer. ? Past treatment with radioactive iodine. ? Past exposure to radiation in the environment. ? Past surgical removal of part or all of the thyroid. What increases the risk? You are more likely to develop this condition if: ? You are female. ? You have a family history of thyroid conditions. ? You use a medicine called lithium. ? You take medicines that affect the immune system (immunosuppressants ). What are the signs or symptoms? Common symptoms of this condition include: ? Not being able to tolerate cold. ? Feeling as though you have no energy (lethargy). ? Lack of appetite. ? Constipation. ? Sadness or depression. ? Weight gain that is not explained by a change in diet or exercise habits. ? Menstrual irregularity. ? Dry skin, coarse hair, or brittle nails. Other symptoms may include: ? Muscle pain. ? Slowing of thought processes. ? Poor memory. How is this diagnosed? This condition may be diagnosed based on: ? Your symptoms, your medical history, and a physical exam. ? Blood tests. You may also have imaging tests, such as an ultrasound or MRI. How is this treated? This condition is treated with medicine that replaces the thyroid hormones that your body does not make. After you begin treatment, it may take several weeks for symptoms to go away. Follow these instructions at home: ? Take pnur-kim-kmphqpn and prescription medicines only as told by your health care provider. ? If you start taking any new medicines, tell your health care provider. ? Keep all follow-up visits as told by your health care provider. This is important. ? As your condition improves, your dosage of thyroid hormone medicine may change. ? You will need to have blood tests regularly so that your health care provider can monitor your condition. Contact a health care provider if: ? Your symptoms do not get better with treatment. ? You are taking thyroid hormone replacement medicine and you: ? Sweat a lot. ? Have tremors. ? Feel anxious. ? Lose weight rapidly. ? Cannot tolerate heat. ? Have emotional swings. ? Have diarrhea. ? Feel weak. Get help right away if: ? You have chest pain. ? You have an irregular heartbeat. ? You have a rapid heartbeat. ? You have difficulty breathing. These symptoms may be an emergency. Get help right away. Call 911. ? Do not wait to see if the symptoms will go away. ? Do not drive yourself to the hospital. Summary ? Hypothyroidism is when the thyroid gland does not make enough of certain hormones (it is underactive). ? When the thyroid is underactive, it produces too little of the hormones thyroxine (T4) and triiodothyronine (T3). ? The most common cause is Izzy's disease, a disease in which the body's disease-fighting system (immune system) attacks the thyroid gland. The condition can also be caused by viral infections, medicine, , or past radiation treatment to the head or neck. ? Symptoms may include weight gain, dry skin, constipation, feeling as though you do not have energy, and not being able to tolerate cold. ? This condition is treated with medicine to replace the thyroid hormones that your body does not make. This information is not intended to replace advice given to you by your health care provider. Make sure you discuss any questions you have with your health care provider. Document Revised: 11/19/2022 Document Reviewed: 11/19/2022 en[employer]volv Patient Education ? 2022 [employer]. Mental and Behavioral Health Major Depressive Disorder, Adult Major depressive disorder (MDD) is a mental health condition. It may also be called clinical depression or unipolar depression. MDD causes symptoms of sadness, hopelessness, and loss of interest in things. These symptoms last most of the day, almost every day, for 2 weeks. MDD can also cause physical symptoms. It can i (more content not included)... Normal [facility] CRPon 02-03-2024 CRP [Mass/Vol] mg/L Normal <=1.9 [facility] Comment on above: Performed By: #### 2 [id number], [id number], [id number] ####[facility] [address] [place] [address] Consent for Treatmenton Consent for Treatment [id number]#1.00TIFF Normal [facility] Free T4on 02-03-2024 Free T4 [Mass/Vol] 0.72 ng/dL Normal 0.58-1.64 [facility] Comment on above: Performed By: #### 2 [id number], [id number] #### [facility] [address] [place] [address] Sed Rate Automatedon 024 ESR (Bld) [Velocity] 10 mm/h Normal 0-34 [facility] Comment on above: Performed By: #### 2 [id number], [id number], [id number] ####[facility] [address] [place] [address] Vit B12on 02-03-2024 Cobalamin (Vitamin B12) [Mass/Vol] 318 pg/mL Normal 50-1500 [facility] Comment on above: Performed By: #### 2 [id number], [id number] ####[facility] [address] [place] [address] MRI Brain w/ + w/o Contrasto n 01-23-2024 MRI Brain w/ + w/o Contrast Exam Date/Time: 01/22/2024 18:43 EST Reason for Exam: Headache, new or worsening;Other (please specify) Report IMPRESSION: There are no acute intracranial changes. There are no areas of abnormal enhancement after IV contrast administration. EXAMINATION: MRI Brain w/ + w/o Contrast CLINICAL HISTORY: Headache, new or worsening COMPARISONS: None TECHNIQUE: Multiplanar multisequence images of the brain were obtained before and after IV administration of contrast. Diffusion perfusion imaging was obtained. BRAIN MRI FINDINGS: There are no extra-axial collections. There is no evidence of hemorrhage. There are no areas of perfusion diffusion signal abnormality to suggest ischemia. The susceptibility images do not demonstrate evidence of hemosiderin deposition within the brain parenchyma or the leptomeninges. There is preservation of the ignacio-white matter differentiation. There are numerous foci of T2/FLAIR hyperintensities in the subcortical and periventricular white matter in a symmetric distribution throughout both hemispheres. There are no areas of abnormal enhancement after IV contrast administration. The sulci and ventricles are within normal limits without evidence of hydrocephalus. The midline structures are intact, the corpus callosum is within normal limits. The region of the pineal gland and the sella turcica are unremarkable. There are no space-occupying lesions in the posterior fossa. The basilar cisterns are patent. The craniocervical junction is unremarkable. The visualized portions of the orbits are within normal limits, the globes are intact. The visualized portions of the paranasal sinuses are within normal limits. The calvarium and soft tissues are unremarkable. Report Ordering Provider: Vilma Mcallister FINAL REPORT Dictated: 01/23/2024 8:07 am Orville Mandujano MD, V. Signed (Electronic Signature): 01/23/2024 8:07 am Signed by: Orville Mandujano MD, V. Transcribed by: EL Technologist: SHAKIRA Technical Comments [employer] Contrast amount in ml's: 6 Normal [facility] Consent for Treatmenton 01-02 Consent for Treatment [id number]#1.00TIFF Normal [facility] MRA Neck w/o Contraston 01-02 MRA Neck w/o Contrast Exam Date/Time: 01/21/2024 11:54 EST Reason for Exam: Transient ischemic attack (TIA);Other (please specify) Report IMPRESSION: No evidence for significant stenosis. EXAMINATION: MRA Neck w/o Contrast HISTORY: Headaches, migraines. Possible TIA. TECHNIQUE: Routine MRA of the neck without contrast, with 3-D and 2-D bsky-zx-ctbzrm images. COMPARISON: None RESULT: MRA NECK: Some limitations from motion artifact. Carotid Stenosis: Right Common: No significant stenosis. Right Internal Plaque: Mild to moderate plaque at the bifurcation. Right Internal Carotid Stenosis (% by NASCET Criteria): Less than 50% Left Common: No significant stenosis. Left Internal Carotid Plaque: Mild plaque formation. Left Internal Carotid Stenosis (% by NASCET Criteria): Less than 50%. Cervical Vertebral Arteries: Patency: Bilateral Dominance: Left Ordering Provider: Vilma Mcallister FINAL REPORT Dictated: 01/22/2024 10:13 am Greg Tierney MD Signed (Electronic Signature): 01/22/2024 10:13 am Signed by: Greg Tierney MD Transcribed by: EL Technologist: DEYSI Technical Comments None Normal [facility] MRI Spine Cervical w/o Contr aramis 01-22-2024 MRI Spine Cervical w/o Contrast Exam Date/Time: 01/21/2024 11:55 EST Reason for Exam: Myelopathy, chronic, cervical spine;Other (please specify) Report [facility] [phone] IMPRESSION: Multilevel degenerative changes cervical spine as discussed. EXAMINATION: MRI Spine Cervical w/o Contrast HISTORY: Myelopathy, chronic, cervical spine. TECHNIQUE: Routine cervical spine MR protocol without gadolinium. COMPARISON: Radiographs 07/09/2019. RESULT: CERVICAL: Counting reference: Craniocervical junction. Anatomic Variants: None. Alignment: Exaggerated cervical lordosis. Craniocervical junction: Craniocervical junction is unremarkable. Cord: The cervical spinal cord is within normal limits of signal intensity and morphology. Bone marrow signal/fracture: No evidence for acute or chronic fracture. No destructive osseous process. Cervical soft tissues: The paraspinal soft tissues are unremarkable. C2-C3: Tiny disc bulge. Endplate osteophytes. No significant canal or foraminal narrowing. C3-C4: Broad-based disc bulge. Endplate osteophytes. Facet/uncovertebral degenerative changes. Mild canal narrowing. Mild bilateral foraminal narrowing. C4-C5: Broad-based disc bulge. Endplate osteophytes. Facet/uncovertebral degenerative changes. No significant canal narrowing. Moderate left foraminal narrowing and mild right foraminal narrowing. C5-C6: Broad-based disc bulge. Endplate osteophytes. Facet/uncovertebral degenerative Report changes. No significant canal narrowing. Moderate left foraminal narrowing and mild right foraminal narrowing. C6-C7: Broad-based disc bulge. Endplate osteophytes. Facet/uncovertebral degenerative changes. No significant canal narrowing. Mild bilateral foraminal narrowing. C7-T1: No significant canal or foraminal narrowing. Upper thoracic spine: Visualized upper thoracic canal and foramina without significant narrowing. Ordering Provider: Vilma Mcallister FINAL REPORT Dictated: 01/22/2024 10:24 am Greg Tierney MD Signed (Electronic Signature): 01/22/2024 10:24 am Signed by: Greg Tierney MD Transcribed by: EL Technologist: DEYSI Technical Comments None Normal [facility] RAD - MRI Screening Formon 0 01-22-2024 RAD - MRI Screening Form [id number]#1.00TIFF Normal [facility] CHEMISTRYOrdered By: SYSTEM SYSTEM on 01-21-2024 Creatinine [Mass/Vol] 0.7 mg/dL Normal 0.5 - 1.3 mg/dL Remisol Chem eGFR 91 mL/min/1.73 m2 Normal >=59mL/min/1.73 m2 Remisol Chem Consent for Treatmenton 01-02 Consent for Treatment [id number] 24#1.00TIFF Normal [facility] Creatinineon 01-21-2024 Creatinine [Mass/Vol] 0.7 mg/dL Normal 0.5-1.3 [facility] Comment on above: Performed By: #### 2 [id number], [id number] #### [facility] [address] [place] [address] Physician Orderon 01-21-2024 Physician Order [id number] 162#1.00TIFF Normal [facility] RAD - MRI Screening Formon 0 01-21-2024 RAD - MRI Screening Form [id number]#1.00TIFF Normal [facility] eGFRon 01-21-2024 eGFR 91 mL/min/1.73 m2 Normal >=59 [facility] Comment on above: Order Comment: Order added by Discern Expert. Performed By: #### 2 [id number], [id number] #### [facility] [address] [place] [address] Insurance Correspondenceon 0 01-16-2024 Insurance Correspondence [id number] 93#1.00TIFF Normal [facility] Family Medicine Office/Clini c Noteon 01-15-2024 Family Medicine Office/Clinic Note Chief Complaint Patient c/o migraines. Patient states her brain gets scrambled and she forgets names and does not know what triggers it. History of Present Illness 74-year-old female past medical history significant for coronary artery disease, hypertension, Izzy's thyroiditis, depression disorder, insomnia, anxiety, B12 deficiency, hypokalemia, occipital neuralgia, osteoporosis, vitamin D deficiency, breast cancer status postlumpectomy. Patient recently established care with me on October 30. In August she did have a round of Doxycycline and prednisone, also given not albuterol after previously getting azithromycin., She continued to have some sores in her nose and was given to mupirocin ointment . she had had elevated blood pressure reading back in August, she is on valsartan 160 once a day metoprolol 50 mg. She does follow with Dr. Locke with [facility], she does have history of coronary artery disease as well. She does not check her blood pressure at home she only checks it at the doctor's office or only if she feels bad. She recently had labs done which were unremarkable except for cholesterol was slightly high at 216. migraines started in age 60s - one eye vision changes- then pain follows, and hands go to sleep , typical pattern. has a CT scan years ago , she had gone to the ER. was diagnosed with migraines- never follow up with Neuro- started taking VANCQUISH for headaches, TODAY- headaches- friday or friday she called sister- brain felt scrambled- couldn't find the words and it caused frustration, confusion and forgetfulness has been occasionally happening for a few month, coughing - caused severe headache. then the headache resolved Patient had a natural nerve testing a few years back -it was reported that she had a weak heart reported. .- she had a workup in 2018, stress test and in 2020 additional testing-cardiologis t said that there was nothing wrong with her heart but it was only 40%? Sister had a stroke about 10 years ago. sister also has Carotid artery stenosis 100% right. persistent cough- every winter - bronchial cough- causes incont- seems like it never goes away. frequency recurrent bronchitis. No formal diagnosis of COPD or asthma, no smoking history, it is annoying her she denies any productive sputum or hemoptysis. No current fevers or chills just wanted to mention it -I have reviewed and discussed the HPI (staff) with the patient today. -Information was verified and is correct. -Additional information provided if needed. Review of Systems PHQ Score Initial Depression Screen Score: 0 SCORE Physical Exam Vitals & Measurements T: 36.6 ?C(Temporal Artery) HR: 63(Peripheral) BP: 138/80 SpO2: 961% HT: 61 in HT: 154 cm WT: 57.5 kg WT: 126.5 lb BMI: 24.25 General: alert, no acute distress, well appearing, _pleasant, elderly female, pleasant Skin: warm, dry, intact Head: no trauma, normocephalic Neck: Trachea midline, mild bilateral cervical anterior adenopathy, no tenderness Eye: normal conjunctiva, sclera clear, _PERRLA ENMT: , oral mucosa moist, no pharyngeal erythema or exudate, normal dentition Cardiovascular: regular rate and rhythm, normal peripheral perfusion, no edema Respiratory: Lungs MILD expiratory wheezes, respirations non labored Chest wall: no deformity, non tender Back: No tenderness, Normal ROM, Normal alignment. Extremities: no deformity, no trauma Neurological: oriented x 4, LOC appropriate for age, CN II-XII intact, motor strength equal & normal bilaterally, sensation equal & normal bilaterally, speech normalNIHHS 0 Psychiatric: cooperative? , affect appropriate for age? , normal? judgement, normal? psychiatric thoughts. + slightly anxious today Assessment/Plan 1. Atypical migraine (G43.009: Migraine without aura, not intractable, without status migrainosus) Patient has had typical migraines since the age of 60 after being evaluated by ER No formal neurological additional follow-up or testing. She reports only CAT scan that she states was reported to be normal Patient now having intermittent unilateral vision loss confusion and word finding difficulty that is been more persistent lately, family has encouraged her to follow-up, patient also complaining of pain that is worse with coughing MRI MRA of the head and neck along with cervical spine MRI has been ordered as well -will talk to radiology to clarify Offered medication, patient to continue her herbal supplements - which I have discussed are not on regulated by FDA and difficult to know side effects, Tylenol or Motrin advised Ordered: C-Reactive Protein MRA Neck w/o Contrast MRI Brain w/ + w/o Contrast Sedimentation Rate Automated 2. Short-term memory loss (R41.3: Other amnesia) Acute on chronic over the last 6 months is getting worse Word finding difficulty reported Considering neuro referral but will obtain imaging and follow-up with patient's prior to, As listed in #1, CRP sed ra (more content not included)... Normal [facility] Comment on above: Result Comment: Elec tronically Signed By: Vilma John\.reg\Date and Time Signed: 01/15/24 18:55 EST Patient Educationon 01-15-20 Patient Education ENT Cough, Adult Coughing is a reflex that clears your throat and your airways (respiratory system). Coughing helps to heal and protect your lungs. It is normal to cough occasionally, but a cough that happens with other symptoms or lasts a long time may be a sign of a condition that needs treatment. An acute cough may only last 2?3 weeks, while a chronic cough may last 8 or more weeks. Coughing is commonly caused by: ? Infection of the respiratory systemby viruses or bacteria. ? Breathing in substances that irritate your lungs. ? Allergies. ? Asthma. ? Mucus that runs down the back of your throat (postnasal drip). ? Smoking. ? Acid backing up from the stomach into the esophagus (gastroesophageal reflux). ? Certain medicines. ? Chronic lung problems. ? Other medical conditions such as heart failure or a blood clot in the lung (pulmonary embolism). Follow these instructions at home: Medicines ? Take fjiz-ava-awvgllc and prescription medicines only as told by your health care provider. ? Talk with your health care provider before you take a cough suppressant medicine. Lifestyle ? Avoid cigarette smoke. Do not use any products that contain nicotine or tobacco, such as cigarettes, e-cigarettes, and chewing tobacco. If you need help quitting, ask your health care provider. ? Drink enough fluid to keep your urine pale yellow. ? Avoid caffeine. ? Do not drink alcohol if your health care provider tells you not to drink. General instructions ? Pay close attention to changes in your cough. Tell your health care provider about them. ? Always cover your mouth when you cough. ? Avoid things that make you cough, such as perfume, candles, cleaning products, or campfire or tobacco smoke. ? If the air is dry, use a cool mist vaporizer or humidifier in your bedroom or your home to help loosen secretions. ? If your cough is worse at night, try to sleep in a semi-upright position. ? Rest as needed. ? Keep all follow-up visits as told by your health care provider. This is important. Contact a health care provider if you: ? Have new symptoms. ? Cough up pus. ? Have a cough that does not get better after 2?3 weeks or gets worse. ? Cannot control your cough with cough suppressant medicines and you are losing sleep. ? Have pain that gets worse or pain that is not helped with medicine. ? Have a fever. ? Have unexplained weight loss. ? Have night sweats. Get help right away if: ? You cough up blood. ? You have difficulty breathing. ? Your heartbeat is very fast. These symptoms may represent a serious problem that is an emergency. Do not wait to see if the symptoms will go away. Get medical help right away. Call your local emergency services (911 in the [place] Do not drive yourself to the hospital. Summary ? Coughing is a reflex that clears your throat and your airways. It is normal to cough occasionally, but a cough that happens with other symptoms or lasts a long time may be a sign of a condition that needs treatment. ? Take nqzz-jwz-intncja and prescription medicines only as told by your health care provider. ? Always cover your mouth when you cough. ? Contact a health care provider if you have new symptoms or a cough that does not get better after 2?3 weeks or gets worse. This information is not intended to replace advice given to you by your health care provider. Make sure you discuss any questions you have with your health care provider. Document Revised: 12/06/2019 Document Reviewed: 12/06/2019 [employer] Patient Education ? 2022 [employer]. Gastroenterology Vitamin B12 Deficiency Vitamin B12 deficiency occurs when the body does not have enough of this important vitamin. The body needs this vitamin: ? To make red blood cells. ? To make DNA. This is the genetic material inside cells. ? To help the nerves work properly so they can carry messages from the brain to the body. Vitamin B12 deficiency can cause health problems, such as not having enough red blood cells in the blood (anemia). This can lead to nerve damage if untreated. What are the causes? This condition may be caused by: ? Not eating enough foods that contain vitamin B12. ? Not having enough stomach acid and digestive fluids to properly absorb vitamin B12 from the food that you eat. ? Having certain diseases that make it hard to absorb vitamin B12. These diseases include Crohn's disease, chronic pancreatitis, and cystic fibrosis. ? An autoimmune disorder in which the body does not make enough of a protein (intrinsic factor) within the stomach, resulting in not enough absorption of vitamin B12. ? Having a surgery in which part of the stomach or small intestine is removed. ? Taking certain medicines that make it hard for the body to absorb vitamin B12. These include: ? Heartburn medicines, such as antacids and proton pump inhibitors. ? Some medicines that are used (more content not included)... Normal [facility] Creatinine (Bld) [Mass/Vol]O rdered By: Ryley Marinelli on 11-04-2023 Creatinine [Mass/Vol] 0.8 mg/dL 0.6-1.3 [facility] Comment on above: ER/ESD physician is notified/shown all ISTAT results.Critical values may be confirmed by laboratory testing ifdeemed necessary by ER attending doctor. ISTAT XRay CREon 11-04-2023 Creatinine [Mass/Vol] 0.8 mg/dL Normal 0.6-1.3 [facility] Comment on above: Result Comment: ER/E SD physician is notified/shown all ISTAT results. Critical values may be confirmed by laboratory testing if deemed necessary by ER attending doctor. Performed By: #### I SCRE #### [address] ISTAT GFR > 60.0 Normal [facility] Comment on above: Result Comment: PERF ORMED BY: [place] [address] PATHOLOGIST METAL SPRAYER [employer]OTECTIVE COATING BLAKE SMART M.D. Performed By: #### I SCRE #### [facility] [address] [place] [address] MR breast BI wo/w con CADon 11-04-2023 MR breast BI wo/w con CAD [facility] [place] [address] MRI Report Signed Patient: Kermit Rosen MR#: [id number] : 1950 Acct:[id number] Age/Sex: 73 / F ADM Date: 11/04/23 Loc: Room: [facility] Attending Dr: Ryley Marinelli Copies to: Ryley Marinelli DO Ordering Provider: Ryley Marinelli DO Date of Service: 11/04/23 MR/MR breast BI wo/w con CAD: Z85.3 BILATERAL BREAST MRI WITHOUT AND WITH INTRAVENOUS CONTRAST CLINICAL HISTORY: History of right-sided breast cancer status post lumpectomy in 2020. COMPARISON: Bilateral breast ultrasound performed at [facility] 12/26/2022 TECHNIQUE: Multisequence, multiplanar imaging of the breasts were obtained before and after the use of IV contrast. All imaged data was reviewed using the [employer] system. The postcontrast images were subtracted and CAD mapping of the enhancement kinetics was performed. Kinetic curves were generated. 2D and 3D MIP images were also reviewed. FINDINGS: The breasts are composed of scattered fibroglandular densities with minimal background parenchymal enhancement. Left breast: No suspicious masslike or nonmass-like enhancement. No chest wall abnormality. No suspicious intramammary or axillary lymph nodes. Right breast: A suspicious focus of enhancement is seen with possible angular margin measuring 4.7 mm in the AP, 1.5 mm in transverse and 4.3 mm in the craniocaudal dimensions at the approximately 10:00 position approximately 4 cm from the nipple. A intramammary lymph node is seen involving the lateral aspect of the right breast at the approximately 9:00 position measuring approximately 5 mm in greatest dimension. No chest wall abnormality is seen. No suspicious intramammary or axillary lymph nodes. MR/MR breast BI wo/w con CAD IMPRESSION: NO MRI EVIDENCE OF MALIGNANCY IS SEEN INVOLVING THE LEFT BREAST. A SUSPICIOUS FOCUS OF ENHANCEMENT IS SEEN WITH POSSIBLE ANGULAR MARGIN AT THE 10:00 POSITION OF THE RIGHT BREAST APPROXIMATELY 4 CM FROM THE NIPPLE MEASURING APPROXIMATELY 4.7 MM IN AP, 1.5 MM THE TRANSVERSE AND 4.3 MM IN THE CRANIOCAUDAL DIMENSIONS. FINDING MAY REPRESENT THE MASS SEEN ON ULTRASOUND. ULTRASOUND-GUIDED BIOPSY IS RECOMMENDED WITH MRI AFTER CLIP PLACEMENT TO CONFIRM THE ABNORMALITY ON MRI IS THE ABNORMALITY ON ULTRASOUND. NO MRI EVIDENCE OF LOCAL METASTATIC DISEASE. RESULT CODE: 4b Suspicious Abnormality - Biopsy Intermediate Suspicion FOLLOW UP: BIO Impression dictated by: Edgar Arellano Jr., D.O.11/04/2023 1:37 PM Dictation Location: [place] [address] Transcribed By: [facility] 11/04/23 1337 Dictated By: Edgar Arellano Jr, DO 11/04/23 1327 Signed By: 11/04/23 1337 Normal [facility] No Panel InformationOrdered By: Ryley Marinelli on 11-04-2023 Bedside Estimated GFR (eGFR) > 60.0 [facility] Ambulatory Visit Summaryon 1 12-30-2022 Ambulatory Visit Summary KERMIT ROSEN :1950 Visit Date:10/30/2023 Ambulatory Visit Instructions Your Diagnosis Dysuria Mild recurrent major depression Benign essential hypertension Izzy's thyroiditis Vitamin D deficiency Vaginal bleeding problems Nasal septal ulcer BMI 24.0-24.9, adult Tests Performed Urnls Dip Stick Auto w/o Microscopy POC 73444 Your Care Team Attending Physician - Vilma John Primary Care Physician - Vilma John This Is Your Medications List [facility] Prescription (spacer) albuterol (Ventolin HFA 90 mcg/inh Aerosol-Adpt) alprazolam (alprazolam 0.25 mg Tab) ascorbic acid (Vitamin C 500 mg oral tablet, chewable) aspirin (aspirin 81 mg oral tablet) brompheniramine/dex tromethorphan/PSE (Bromfed DM oral syrup) elderberry garlic (Garlic) iodine magnesium amino acids chelate menaquinone (Vitamin K2) metoprolol (metoprolol 50 mg ER Tab) mupirocin topical (mupirocin Top 2% Oint) sertraline (sertraline 50 mg Tab) thyroid desiccated ([place] Thyroid 30 mg Tab) valsartan (valsartan 160 mg Tab) zinc acetate (zinc acetate 50 mg oral capsule) [Image Removed: STOP]Stop taking these medications fluconazole (Diflucan 100 mg Tab) Procedures Performed Biopsy of breast (02/02/2021), Lumpectomy of right breast (02/02/2021), Dilation and curettage, Tonsillectomy, Tubal ligation, Ultrasonography guided biopsy of right breast. Discharge Vitals Heart Rate (Peripheral) 64 Respiratory Rate 18 Blood Pressure 136/84 Height 154 cm Height 61 in Weight 57.8 kg Weight 127.16 lb BMI 24.37 What to do next You Need to Complete the Following TSH With T4fr Reflex, Blood, Routine collect, 10/30/23, Order for future visit, Lab Collect, Izzy's thyroiditis, Print Label By Order Location Vitamin D 25 Hydroxy, Blood, Routine collect, 10/30/23, Order for future visit, Lab Collect, Vitamin D deficiency, Print Label By Order Location Medications What How Much When Why Instructions New mupirocin topical (mupirocin Top 2% Oint) 1 Application Topical 3 times a day Nasal septal ulcer Refills: 1 Pickup at [facility] Changed albuterol (Ventolin HFA 90 mcg/ inh Aerosol-Adpt) 2 Puffs Inhalation 4 times a day as needed for for wheezing Viral bronchitis Unchanged alprazolam (alprazolam 0.25 mg Tab) 1 Tablets By Mouth Every day as needed for for insomnia Situational insomnia Unchanged ascorbic acid (Vitamin C 500 mg oral tablet, chewable) 1 Tablets Chewed Every day Unchanged aspirin (aspirin 81 mg oral tablet) 1 Tablets By Mouth Every day Unchanged brompheniramine/ dextromethorphan/ PSE (Bromfed DM oral syrup) 5 Milliliter By Mouth 4 times a day as needed for for cough and congestion Unchanged elderberry Unchanged garlic (Garlic) See instructions 1 tab daily OTC Unchanged iodine Unchanged magnesium amino acids chelate Unchanged menaquinone (Vitamin K2) Unchanged metoprolol (metoprolol 50 mg ER Tab) 1 Tablets By Mouth Every day Unchanged Misc Prescription (spacer) See instructions Bronchitis Sinusitis BMI 23.0-23.9, adult please dispense an adult mdi spacer chamber Unchanged sertraline (sertraline 50 mg Tab) 1 Tablets By Mouth Every day Unchanged thyroid desiccated ([place] Thyroid 30 mg Tab) 1 Tablets By Mouth Every day Unchanged valsartan (valsartan 160 mg Tab) 90 EA, TAKE 1 TABLET BY MOUTH ONCE DAILY Unchanged zinc acetate (zinc acetate 50 mg oral capsule) 1 Capsules By Mouth Every day on an empty stomach 1 hour before or 2 hours after eating Pharmacy Information [facility] 1986: [address] [facility] [place], [place] [id number] [phone] What How Much When Why Comments Stop Taking fluconazole (Diflucan 100 mg Tab) 1 Tablets By Mouth Every day Sinusitis take once if needed and may repeat if needed Test Results Urnls Dip Stick Auto w/o Microscopy POC 99903 (10/30/2023) Bilirubin Urine Dipstick - Negative Blood Urine Dipstick - Negative Glucose Urine Dipstick - Negative Ketones Urine Dipstick - Negative Leukocytes Urine Dipstick - Negative Nitrite Urine Dipstick - Negative Protein Urine Dipstick - Negative Specific [place] Urine Dipstick - 1.010 Urine Appearance Urine Dipstick - Clear Urine Color Urine Dipstick - Yellow Urobilinogen Urine Dipstick - Normal 0.2-1 EU/dl pH Urine Dipstick - 7 Allergies Citalopram Hydrobromide (Unknown) propranolol (hives) diclofenac sodium (BP rises) CeleXA (Unknown) Voltaren Topical (Hypertension) doxycycline (Yeast infection) hydroCHLOROthiazide (Electrolyte disturbance) lisinopril (Unknown) Problems Ongoing - Any problem that you are currently receiving treatment for. B12 deficiency Benign essential hypertension Bronchitis Cough Izzy's thyroiditis Hernia, ventral Hypokalemia Hypothyroidism Mild CAD Mild recurrent major depression Nasal septal ulcer Occipital neuralgia Osteoporosis Personal history of b (more content not included)... Normal [facility] Family Medicine Office/Clini c Noteon 10-30-2023 Family Medicine Office/Clinic Note Chief Complaint 1 month f/u and establish care HPI Staff Reason for Visit: 1 month f/u for bronchitis. Pt comes in for 1 month f/u and establish care. Pt would like sores in nose. Pt was recommended mupirocin ointment for her nose. Pt does blow her nose a lot. Pt does not use an nasal sprays. Pt thinks she might have a UTI as well. Cough better/worse: Much Improvement with cough syrup: Yes Depression: PHQ9: 1 CHRISTIANO: N/A Last Labs done: 10/18/2023 Covid Vaccine: No Flu Vaccine: No Smoker: Non smoker Medicare wellness: Due colonoscopy/cologua rd (45-75yo): Due in 5 years Mammogram (qyr 45-54, q2yrs 55-85): Due DEXA (F>65, M>70): Due in 2 years Pt needs an establishing visit with Esvin if she is to continue to be her PCP History of Present Illness Patient is here today for evaluation and overall feeling better, f/u still mild cough, some nasal asking about mupirocin ointment- bloody nose frequently- using neti pot, finished doxy and prednisone and bromphed Medical History: 73 yr old female with a PMHx anxiety, breast cancer, Izzy's, CAD, MDD, osteoporosis, Vit D deficiency Here for follow up for HTN CAD 40%- goes to [facility]- Dr Burgos current medication: metoprolol, valsartan How often you check your blood pressure? just at dr office, only when feel bad- What are your average readings? does not usually check at home- OV look good. Have you had any ER visits or any hospitalizations since last visit? no Are you compliant with your medications and no difficulty affording your medications? yes Do you have side effects from the medication? no Are you compliant with your diet? yes Do you exercise? yes Do you have any of the following symptoms? Chest pain? no Palpitations? no OSCAR/SOB? no Orthopnea? no PND? no Edema? no Have you had any recent cardiopulmonary testing? 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 oral mucosa moist, no pharyngeal erythema or exudate, normal dentition Cardiovascular: regular rate and rhythm, normal peripheral perfusion, no edema Respiratory: Lungs expiratory wheezes and rhonchi, respirations non labored Extremities: no deformity, no trauma Neurological: oriented x 4, LOC appropriate for age, CN II-XII intact, motor strength equal & normal bilaterally, sensation equal & normal bilaterally, speech normal Psychiatric: cooperative? , affect appropriate for age? , normal? judgement, normal? psychiatric thoughts. Assessment/Plan 1. Dysuria (R30.0: Dysuria) UA in the office looks normal. negative for everything, SG 1.010, pH 7.0 encouraged increased water and acidic beverages. Ordered: Urnls Dip Stick Auto w/o Microscopy POC 40144 2. Mild recurrent major depression (F33.0: Major depressive disorder, recurrent, mild) PHQ-9 score:1 today Pt is stable on current dose of sertraline 50 mg once daily PRN BENZO rare use. for anxiety Discussed red flags/when to seek emergency care and suicide support hotlines. Pt verbalized understanding of resources and when to seek emergency care and denies SI/HI at this time. Pt declines therapy at this time. F/U 1 months and PRN. 3. Benign essential hypertension (I10: Essential (primary) hypertension) Medication management per Dr. Cottrell with [facility], BP is stable proved from last visit Counseled pt to continue to monitor BP at home, follow low salt/caffeine diet, increase physical activity as tolerated with goal 150mins/week. Discussed AHA BP guidelines Discussed HTN sx to report including but not limited to SOB, CP, VARGAS, numbness/tingling, vision changes. Pt verbalized understanding. Continue BP meds: aspirin 81 mg, valsartan 160, Milligrams and metoprolol 50 mg extended release once daily 4. 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 Continue [place] Thyroid 30 mg once daily Refill provided for 90 days F/u PRN Ordered: TSH With T4fr Reflex 5. Vitamin D deficiency (E55.9: Vitamin D deficiency, uns (more content not included)... Normal [facility] Comment on above: Result Comment: Elec tronically Signed By: Vilma John\.reg\Date and Time Signed: 10/30/23 11:26 EST Patient Educationon 10-30-20 23 Patient Education Mental and Behavioral Health Major Depressive Disorder, Adult Major depressive disorder (MDD) is a mental health condition. It may also be called clinical depression or unipolar depression. MDD causes symptoms of sadness, hopelessness, and loss of interest in things. These symptoms last most of the day, almost every day, for 2 weeks. MDD can also cause physical symptoms. It can interfere with relationships and with everyday activities, such as work, school, and activities that are usually pleasant. MDD may be mild, moderate, or severe. It may be single-episode MDD, which happens once, or recurrent MDD, which may occur multiple times. What are the causes? The exact cause of this condition is not known. MDD is most likely caused by a combination of things, which may include: ? Your personality traits. ? [place] or conditioned behaviors or thoughts or feelings that reinforce negativity. ? Any alcohol or substance misuse. ? Long-term (chronic) physical or mental health illness. ? Going through a traumatic experience or major life changes. What increases the risk? The following factors may make someone more likely to develop MDD: ? A family history of depression. ? Being a woman. ? Troubled family relationships. ? Abnormally low levels of certain brain chemicals. ? Traumatic or painful events in childhood, especially abuse or loss of a parent. ? A lot of stress from life experiences, such as poor living conditions or discrimination. ? Chronic physical illness or other mental health disorders. What are the signs or symptoms? The main symptoms of MDD usually include: ? Constant depressed or irritable mood. ? A loss of interest in things and activities. Other symptoms include: ? Sleeping or eating too much or too little. ? Unexplained weight gain or weight loss. ? Tiredness or low energy. ? Being agitated, restless, or weak. ? Feeling hopeless, worthless, or guilty. ? Trouble thinking clearly or making decisions. ? Thoughts of suicide or thoughts of harming others. ? Isolating oneself or avoiding other people or activities. ? Trouble completing tasks, work, or any normal obligations. Severe symptoms of this condition may include: ? Psychotic depression.This may include false beliefs, or delusions. It may also include seeing, hearing, tasting, smelling, or feeling things that are not real (hallucinations). ? Chronic depression or persistent depressive disorder. This is low-level depression that lasts for at least 2 years. ? Melancholic depression, or feeling extremely sad and hopeless. ? Catatonic depression, which includes trouble speaking and trouble moving. How is this diagnosed? This condition may be diagnosed based on: ? Your symptoms. ? Your medical and mental health history. You may be asked questions about your lifestyle, including any drug and alcohol use. ? A physical exam. ? Blood tests to rule out other conditions. MDD is confirmed if you have the following symptoms most of the day, nearly every day, in a 2-week period: ? Either a depressed mood or loss of interest. ? At least four other MDD symptoms. How is this treated? This condition is usually treated by mental health professionals, such as psychologists, psychiatrists, and clinical social workers. You may need more than one type of treatment. Treatment may include: ? Psychotherapy, also called talk therapy or counseling. Types of psychotherapy include: ? Cognitive behavioral therapy (CBT). This teaches you to recognize unhealthy feelings, thoughts, and behaviors, and replace them with positive thoughts and actions. ? Interpersonal therapy (IPT). This helps you to improve the way you communicate with others or relate to them. ? Family therapy. This treatment includes members of your family. ? Medicines to treat anxiety and depression. These medicines help to balance the brain chemicals that affect your emotions. ? Lifestyle changes. You may be asked to: ? Limit alcohol use and avoid drug use. ? Get regular exercise. ? Get plenty of sleep. ? Make healthy eating choices. ? Spend more time outdoors. ? Brain stimulation. This may be done if symptoms are very severe and other treatments have not worked. Examples of this treatment are electroconvulsive therapy and transcranial magnetic stimulation. Follow these instructions at home: Activity ? Exercise regularly and spend time outdoors. ? Find activities that you enjoy doing, and make time to do them. ? Find healthy ways to manage stress, such as: ? Meditation or deep breathing. ? Spending time in nature. ? Journaling. ? Return to your normal activities as told by your health care provider. Ask your health care provider what activities are safe for you. Alcohol and drug use ? If you drink alcohol: ? Limit how much you use to: ? 0?1 drink a day for women who are not . ? 0?2 drinks a day for men. ? Be aware of how much alcohol is in your drink. In the (more content not included)... Normal [facility] DHEAon 10-23-2023 DHEA [Mass/Vol] 103 ng/dL Invalid Interpretation Code 402 [facility] Comment on above: Result Comment: This test was developed and its performance characteristics determined by [employer]. It has not been cleared or approved by the Food and Drug Administration. Performed at: [address] [id number] MD Zack David Performed By: #### 2 [id number] ####[facility] [id number] [place] [address] Estrogens Totalon 10-23-2023 Estrogen [Mass/Vol] 64 pg/mL Invalid Interpretation Code 40244 [facility] Comment on above: Result Comment: Prep ubertal < 40 Female Cycle: 1-10 Days 16 - 328 11-20 Days 34 - 501 21-30 Days 48 - 350 Post-Menopausal Performed at: [facility] [id number] MD Zack David Performed By: #### 2 [id number] ####[facility] [id number] [place] [address] Testost Totalon 10-23-2023 Testosterone [Mass/Vol] 9 ng/dL Invalid Interpretation Code [facility] Comment on above: Result Comment: Perf ormed at: [facility] [id number] PhD Ramila Ackerman Performed By: #### 2 172325, 1668375, 29517714, 1504685, 42888439, 48023216, 0244757, 4756015, 4602216 ####[facility] [address] [place] [address] Progesteroneon 10-20-2023 Progesterone [Mass/Vol] 1.40 ng/mL Invalid Interpretation Code [facility] Comment on above: Result Comment: REFE RENCE RANGE Males 0.14-2.06 ng/mL Non- Females Follicular 0.10-0.60 ng/mL Luteal 3.00-17.5 ng/mL Midluteal 3.30-18.6 ng/mL Post-Menopausal 0.10-0.40 ng/mL First Trimester 8.30-66.5 ng/mL Second Trimester 18.9-66.1 ng/mL Third Trimester 35.8-312.4 ng/mL Performed By: #### 2 084483, 3872635, 62773908, 0346261, 45234475, 14387051, 2926760, 9403577, 3096589 ####[facility] [address] [place] [address] Auto Diffon 10-18-2023 Basophils/100 WBC (Bld) 0.6 % Normal 0.0-2.0 [facility] Comment on above: Order Comment: Order Added by Discern Expert. Performed By: #### 2 746043, 5083413, 32084784, 6141585, 96884819, 31403575, 6557771, 6110743, 6437480 ####[address] [place] [address] Basophils/Leukocytes Auto (Bld) [Pure # fraction] 0.0 E9/L Normal 0.0-0.2 [facility] Comment on above: Order Comment: Order Added by Discern Expert. Performed By: #### 2 694501, 9118660, 27761766, 2549574, 42039131, 88510068, 5802736, 8315677, 7505692 ####[address] [place] [address] Eosinophils/100 WBC (Bld) 1.3 % Normal 0.0-8.0 [facility] Comment on above: Order Comment: Order Added by Discern Expert. Performed By: #### 2 591633, 5886390, 10953159, 1184268, 55252361, 45975161, 0699605, 3770278, 9794245 ####[address] [place] [address] Eosinophils/Leukocyt es Auto (Bld) [Pure # fraction] 0.0 E9/L Normal 0.0-0.5 [facility] Comment on above: Order Comment: Order Added by Discern Expert. Performed By: #### 2 798421, 0767668, 71182448, 1619885, 11334339, 01492472, 8071769, 6015985, 3591852 ####[address] [place] [address] Lymphocytes/100 WBC (Bld) 45.5 % Normal 14.0-50.0 [facility] Comment on above: Order Comment: Order Added by Discern Expert. Performed By: #### 2 567934, 0545964, 99042355, 2648475, 06476346, 38591648, 7090520, 5841479, 9874077 ####[address] [place] [address] Lymphocytes/Leukocyt es Auto (Bld) [Pure # fraction] 1.6 E9/L Normal 1.0-4.0 [facility] Comment on above: Order Comment: Order Added by Discern Expert. Performed By: #### 2 828124, 9776853, 73588169, 5935440, 62860871, 79256952, 2866071, 8549864, 0991410 ####[address] [place] [address] Monocytes/100 WBC (Bld) 7.9 % Normal 4.0-14.0 [facility] Comment on above: Order Comment: Order Added by Discern Expert. Performed By: #### 2 124789, 2779254, 04190714, 3169277, 71315378, 63317366, 6089723, 4256221, 2030150 ####[address] [place] [address] Monocytes/Leukocytes Auto (Bld) [Pure # fraction] 0.3 E9/L Normal 0.2-1.0 [facility] Comment on above: Order Comment: Order Added by Discern Expert. Performed By: #### 2 790570, 9473611, 34524156, 0598936, 84579993, 48116434, 8948125, 9392164, 7656691 ####[address] [place] [address] Neutrophils/100 WBC (Bld) 44.7 % Normal 36.0-75.0 [facility] Comment on above: Order Comment: Order Added by Discern Expert. Performed By: #### 2 024645, 7545452, 54233724, 2645125, 40866161, 00372756, 8724603, 6538073, 5269461 ####[facility] [address] [place] [address] Neutrophils/Leukocyt es Auto (Bld) [Pure # fraction] 1.6 E9/L Low 2.0-7.5 [facility] Comment on above: Order Comment: Order Added by Discern Expert. Performed By: #### 2 498401, 8058904, 59226277, 9245644, 14615956, 72355209, 0181350, 6348203, 8881726 ####[address] [place] [address] CBC w/ Auto Diffon 3 Erythrocyte distribution width (RBC) [Ratio] 13.1 % Normal 10.9-14.2 [facility] Comment on above: Performed By: #### 2 417349, 2050533, 08356662, 1661197, 04220284, 54539158, 7621568, 1031378, 7166436 ####[facility] [address] [place] [address] Hematocrit (Bld) [Volume fraction] 43.4 % Normal 34.0-46.0 [facility] Comment on above: Performed By: #### 2 798347, 0199774, 15894216, 7679199, 96887414, 23225664, 3266611, 1831026, 2366567 ####[facility] [address] [place] [address] Hemoglobin (Bld) [Mass/Vol] 14.7 g/dL Normal 12.0-16.0 [facility] Comment on above: Performed By: #### 2 888469, 2294863, 17980678, 3302700, 78663988, 60019600, 4693803, 4071035, 5284079 ####[address] [place] [address] MCH (RBC) [Entitic mass] 30.5 pg Normal 27.0-34.0 [facility] Comment on above: Performed By: #### 2 557471, 2113406, 03856276, 1896359, 47732192, 61183516, 1401855, 2764466, 6283489 ####[address] [place] [address] MCHC (RBC) [Mass/Vol] 33.8 g/dL Normal 31.4-36.0 [facility] Comment on above: Performed By: #### 2 015778, 8590564, 29555145, 5244117, 23748841, 07789233, 5200220, 9059986, 6806485 ####[address] [address] MCV (RBC) [Entitic vol] 90.2 fL Normal 80.0-100.0 [facility] Comment on above: Performed By: #### 2 080161, 3889127, 91864973, 2679629, 66427933, 48225659, 9310557, 0294186, 0278170 ####[address] [address] Platelet mean volume (Bld) [Entitic vol] 9.8 fL Normal 6.4-10.8 [facility] Comment on above: Performed By: #### 2 638251, 2143240, 47563741, 2368289, 35479611, 85568274, 9850125, 0742099, 5766195 ####[address] [address] Platelets (Bld) [#/Vol] 222.0 E9/L Normal 150.0-500.0 [facility] Comment on above: Performed By: #### 2 172240, 3017426, 02562644, 7303658, 93066163, 15058767, 2294604, 5317121, 1142689 ####[address] [place] [address] RBC (Bld) [#/Vol] 4.8 E12/L Normal 4.3-5.9 [facility] Comment on above: Performed By: #### 2 831431, 7428891, 11774951, 3955870, 80700399, 81746915, 5351608, 2723561, 7312519 ####[facility] [address] [place] [address] WBC corrected for nucl RBC Auto (Bld) [#/Vol] 3.6 E9/L Low 4.0-11.0 [facility] Comment on above: Performed By: #### 2 449505, 9354092, 18298743, 8061340, 85769685, 72895312, 6915762, 8647695, 8163352 ####[facility] [address] [place] [address] CHEMISTRYOrdered By: SYSTEM SYSTEM on 10-18-2023 Albumin [Mass/Vol] 3.9 g/dL Normal 3.3 - 5.0 gm/dL F [facility] Remisol Albumin/Globulin [Mass ratio] 1.2 {ratio} Normal 1.1 - 2.2 [facility] ALP [Catalytic activity/Vol] 82 [iU]/d Normal 21 - 98 Int._Unit/L [facility] ALT No additional P-5'-P [Catalytic activity/Vol] 17 [iU]/d Normal 6 - 46 Int._Unit/L [facility] Anion gap [Moles/Vol] 10 mmol/L Normal 6 - 16 mEq/L [facility] AST [Catalytic activity/Vol] 24 [iU]/d Normal 5 - 43 Int._Unit/L [facility] Bilirubin [Mass/Vol] 0.7 mg/dL Normal 0.0 - 1.1 mg/dL [facility] Calcium [Mass/Vol] 9.4 mg/dL Normal 8.9 - 11.1 mg/dL [facility] Chloride [Moles/Vol] 108 mmol/L Normal 101 - 111 mmol/ L [facility] Cholesterol [Mass/Vol] 216 mg/dL High 120 - 200 mg/dL [facility] Cholesterol in HDL [Mass/Vol] 68 mg/dL Invalid Interpretation Code [facility] Comment on above: Interpretive Data: H DL > or equal to 60 mg/dL: Low cardiovascular risk HDL < 40 mg/dL : High cardiovascular risk Cholesterol in LDL [Mass/Vol] 125 mg/dL Normal <=129mg/dL [facility] Cholesterol in VLDL [Mass/Vol] 17 mg/dL Normal 7 - 40 mg/dL [facility] CO2 [Moles/Vol] 26 mmol/L Normal 21 - 31 mmol/L [facility] Creatinine [Mass/Vol] 0.8 mg/dL Normal 0.5 - 1.3 mg/dL [facility] GFR/1.73 sq M.predicted among non-blacks MDRD (S/P/Bld) [Vol rate/Area] 78 mL/min/1.73 m2 Normal >=59mL/min/1.73 m2 [facility] [place] [facility] S Comment on above: Interpretive Data: C hronic kidney disease could be indicated at eGFR's of less than 60 mL/min/1.73m2. Kidney failure is indicated at less than 15 mL/min/1.73m2. Globulin (S) [Mass/Vol] 3.4 g/dL Normal 1.4 - 4.0 gm/dL [facility] [place] Remisol Glucose [Mass/Vol] 101 mg/dL Normal 55 - 199 mg/dL [facility] Comment on above: Interpretive Data: I f this glucose result represents a fasting glucose, interpretation should refer to the following reference range: 55-99 mg/dL Potassium [Moles/Vol] 4.3 mmol/L Normal 3.5 - 5.3 mmol/L [facility] Protein [Mass/Vol] 7.3 g/dL Normal 6.0 - 7.8 gm/dL [facility] [place] Remisol Sodium [Moles/Vol] 140 mmol/L Normal 135 - 145 mmol/L [facility] Triglyceride [Mass/Vol] 83 mg/dL Normal <=149mg/dL [facility] Urea nitrogen [Mass/Vol] 22 mg/dL High 5 - 21 mg/dL [facility] Urea nitrogen/Creatinine [Mass ratio] 28 mg/mg High 10 - 20 [facility] CMPon 10-18-2023 Albumin [Mass/Vol] 3.9 g/dL Normal 3.3-5.0 [facility] Comment on above: Performed By: #### 2 846989, 1849670, 54021359, 5077032, 36202718, 90788920, 6340465, 2505268, 1375880 ####[facility] [address] [place] [address] Albumin/Globulin (S) [Mass conc ratio] 1.2 Normal 1.1-2.2 [facility] Comment on above: Performed By: #### 2 380105, 7636817, 70883349, 3984699, 17705284, 28545454, 2303224, 4065677, 6454104 ####[facility] [address] [place] [address] ALP [Catalytic activity/Vol] 82 Int._Unit/L Normal 21-98 [facility] Comment on above: Performed By: #### 2 861694, 2927347, 15263907, 8151111, 34006375, 14420887, 2341486, 0712901, 7139617 ####[facility] [address] [place] [address] ALT No additional P-5'-P [Catalytic activity/Vol] 17 Int._Unit/L Normal 6-46 [facility] Comment on above: Performed By: #### 2 320063, 9337153, 13981348, 8573482, 93187190, 00171429, 3811596, 0881941, 5601091 ####[facility] [address] [place] [address] Anion gap [Moles/Vol] 10 mmol/L Normal 6-16 [facility] Comment on above: Performed By: #### 2 396689, 6225712, 03868997, 7101746, 18382796, 69950703, 5402512, 8816616, 5034391 ####[facility] [address] [place] [address] AST [Catalytic activity/Vol] 24 Int._Unit/L Normal 5-43 [facility] Comment on above: Performed By: #### 2 138579, 5012988, 84988922, 6665766, 82053001, 89536260, 3674412, 9368827, 3659086 ####[facility] [address] [place] [address] Bilirubin [Mass/Vol] 0.7 mg/dL Normal 0.0-1.1 [facility] Comment on above: Performed By: #### 2 893932, 3762277, 76195568, 4079705, 65495556, 50961476, 3959565, 4389551, 6556377 ####[facility] [address] [place] [address] Calcium [Mass/Vol] 9.4 mg/dL Normal 8.9-11.1 [facility] Comment on above: Performed By: #### 2 360211, 0561148, 81844264, 2762120, 25318097, 71977497, 3407814, 6046172, 5508765 ####[facility] [address] [place] [address] Chloride [Moles/Vol] 108 mmol/L Normal 101-111 [facility] Comment on above: Performed By: #### 2 724310, 6199811, 79087707, 6951592, 81968779, 80898529, 5907013, 1317510, 4460793 ####[facility] [address] [place] [address] CO2 [Moles/Vol] 26 mmol/L Normal 21-31 [facility] Comment on above: Performed By: #### 2 589722, 9371793, 70841328, 4112800, 36260529, 52092590, 9595852, 5173070, 9794357 ####[facility] [address] [place] [address] Creatinine [Mass/Vol] 0.8 mg/dL Normal 0.5-1.3 [facility] Comment on above: Performed By: #### 2 679422, 5011132, 63731327, 3914105, 05934934, 48695019, 4149007, 9408387, 4770281 ####[facility] [address] [place] [address] Globulin (S) [Mass/Vol] 3.4 g/dL Normal 1.4-4.0 [facility] Comment on above: Performed By: #### 2 031557, 6778501, 12988507, 4708923, 41633607, 18404929, 8898923, 4894888, 0761297 ####[facility] [address] [place] [address] Glucose [Mass/Vol] 101 mg/dL Normal 55-199 [facility] Comment on above: Result Comment: If t his glucose result represents a fasting glucose, interpretation should refer to the following reference range: 55-99 mg/dL Performed By: #### 2 060547, 3374021, 14646603, 8644077, 33856118, 36469938, 6566323, 4466845, 1062582 ####[facility] [address] [place] [address] Potassium [Moles/Vol] 4.3 mmol/L Normal 3.5-5.3 [facility] Comment on above: Performed By: #### 2 572194, 2881102, 67654977, 4816257, 85831863, 41170005, 2796016, 9071104, 0662962 ####[facility] [address] [place] [address] Protein [Mass/Vol] 7.3 g/dL Normal 6.0-7.8 [facility] Comment on above: Performed By: #### 2 419754, 4779710, 01696392, 7730371, 32978111, 92411451, 6416336, 0724654, 2241209 ####[facility] [address] [place] [address] Sodium [Moles/Vol] 140 mmol/L Normal 135-145 [facility] Comment on above: Performed By: #### 2 746730, 4925043, 97585644, 9855630, 87231286, 55835213, 9831624, 6592866, 9316863 ####[facility] [address] [place] [address] Urea nitrogen [Mass/Vol] 22 mg/dL High 5-21 [facility] Comment on above: Performed By: #### 2 630077, 4511317, 72493796, 9405946, 99502307, 11494280, 2425034, 7263596, 8808059 ####[facility] [address] [place] [address] Urea nitrogen/Creatinine [Mass ratio] 28 No Units High 10-20 [facility] Comment on above: Performed By: #### 2 804941, 0923859, 02350520, 2659153, 04453357, 27312995, 4776125, 6545168, 9745217 ####[facility] [address] [place] [address] Consent for Treatmenton 10-01 Consent for Treatment [id number] C3#1.00TIFF Normal [facility] HEMATOLOGYOrdered By: SYSTEM SYSTEM on 10-18-2023 Basophils/100 WBC (Bld) 0.6 % Normal 0.0 - 2.0 % [facility] HemeAutoSS Basophils/Leukocytes Auto (Bld) [Pure # fraction] 0.0 E9/L Normal 0.0 - 0.2 E9/L [facility] HemeAutoSS Eosinophils/100 WBC (Bld) 1.3 % Normal 0.0 - 8.0 % [facility] HemeAutoSS Eosinophils/Leukocyt es Auto (Bld) [Pure # fraction] 0.0 E9/L Normal 0.0 - 0.5 E9/L [facility] HemeAutoSS Lymphocytes/100 WBC (Bld) 45.5 % Normal 14.0 - 50.0 % [facility] HemeAutoSS Lymphocytes/Leukocyt es Auto (Bld) [Pure # fraction] 1.6 E9/L Normal 1.0 - 4.0 E9/L [facility] HemeAutoSS Monocytes/100 WBC (Bld) 7.9 % Normal 4.0 - 14.0 % [facility] HemeAutoSS Monocytes/Leukocytes Auto (Bld) [Pure # fraction] 0.3 E9/L Normal 0.2 - 1.0 E9/L [facility] HemeAutoSS Neutrophils/100 WBC (Bld) 44.7 % Normal 36.0 - 75.0 % [facility] HemeAutoSS Neutrophils/Leukocyt es Auto (Bld) [Pure # fraction] 1.6 E9/L Low 2.0 - 7.5 E9/L [facility] HemeAutoSS HEMATOLOGYOrdered By: Oapl Castro on 10-18-2023 Erythrocyte distribution width (RBC) [Ratio] 13.1 % Normal 10.9 - 14.2 % [facility] HemeAutoSS Hematocrit (Bld) [Volume fraction] 43.4 % Normal 34.0 - 46.0 % [facility] HemeAutoSS Hemoglobin (Bld) [Mass/Vol] 14.7 g/dL Normal 12.0 - 16.0 gm/dL [facility] HemeAutoSS MCH (RBC) [Entitic mass] 30.5 pg Normal 27.0 - 34.0 pg [facility]eAutoSS MCHC (RBC) [Mass/Vol] 33.8 g/dL Normal 31.4 - 36.0 gm/dL [facility]eAutoSS MCV (RBC) [Entitic vol] 90.2 fL Normal 80.0 - 100.0 fL [facility]eAutoSS Platelet mean volume (Bld) [Entitic vol] 9.8 fL Normal 6.4 - 10.8 fL [facility] HemeAutoSS Platelets (Bld) [#/Vol] 222.0 E9/L Normal 150.0 - 500.0 E9/L [facility]eAutoSS RBC (Bld) [#/Vol] 4.8 E12/L Normal 4.3 - 5.9 E12/L [facility]eAutoSS WBC corrected for nucl RBC Auto (Bld) [#/Vol] 3.6 E9/L Low 4.0 - 11.0 E9/L [facility] HemeAutoSS Lipid Panelon 10-18-2023 Cholesterol [Mass/Vol] 216 mg/dL High 120-200 [facility] Comment on above: Performed By: #### 2 507884, 2822786, 47126312, 7488184, 02168338, 47528454, 3860975, 8046814, 0545692 ####[facility] [address] [place] [address] Cholesterol in HDL [Mass/Vol] 68 mg/dL Invalid Interpretation Code [facility] Comment on above: Result Comment: HDL > or equal to 60 mg/dL: Low cardiovascular risk HDL < 40 mg/dL : High cardiovascular risk Performed By: #### 2 151736, 3321909, 57020417, 3188159, 12104791, 15764045, 3544522, 0365881, 8640347 ####[facility] [address] [place] [address] Cholesterol in LDL [Mass/Vol] 125 mg/dL Normal <=129 [facility] Comment on above: Performed By: #### 2 224712, 6083681, 27248175, 8102507, 36471567, 46809156, 0059422, 0434894, 9416888 ####[facility] [address] [place] [address] Cholesterol in VLDL [Mass/Vol] 17 mg/dL Normal 7-40 [facility] Comment on above: Performed By: #### 2 169726, 9052002, 09977175, 2180665, 81094937, 69653192, 9061626, 0240600, 1857252 ####[facility] [address] [place] [address] Triglyceride [Mass/Vol] 83 mg/dL Normal <=149 [facility] Comment on above: Performed By: #### 2 292197, 3978316, 33644529, 3402970, 30370109, 20148116, 3014851, 1268171, 9969640 ####[facility] [address] [place] [address] eGFRon 10-18-2023 GFR/1.73 sq M.predicted among non-blacks MDRD (S/P/Bld) [Vol rate/Area] 78 mL/min/1.73 m2 Normal >=59 [facility] Comment on above: Order Comment: Order added by Discern Expert. Result Comment: Corporate Events Director sarah kidney disease could be indicated at eGFR's of less than 60 mL/min/1.73m2. Kidney failure is indicated at less than 15 mL/min/1.73m2. Performed By: #### 2 026934, 6536546, 52632624, 7799177, 63860859, 78238478, 4067861, 7506555, 9646437 ####[facility] [address] [place] [address] Ambulatory Visit Summaryon 1 Ambulatory Visit Summary KERMIT ROSEN :1950 Visit Date:09/26/2023 Ambulatory Visit Instructions Your Diagnosis Bronchitis Benign essential hypertension Mild recurrent major depression Izzy's thyroiditis BMI 24.0-24.9, adult Non-smoker Situational insomnia Wellness examination Your Care Team Attending Physician - Vilma John Primary Care Physician - Vilma John This Is Your Medications List alprazolam (alprazolam 0.25 mg Tab) brompheniramine/dex tromethorphan/PSE (Bromfed DM oral syrup) thyroid desiccated ([place] Thyroid 30 mg Tab) Contact prescribing physician if questions or concerns Misc Prescription (spacer) albuterol (Albuterol (Eqv-Ventolin HFA) 90 mcg/inh inhalation aerosol) albuterol (Ventolin HFA 90 mcg/inh Aerosol-Adpt) ascorbic acid (Vitamin C 500 mg oral tablet, chewable) aspirin (aspirin 81 mg oral tablet) fluconazole (Diflucan 100 mg Tab) garlic (Garlic) magnesium amino acids chelate menaquinone (Vitamin K2) metoprolol (metoprolol 50 mg ER Tab) sertraline (sertraline 50 mg Tab) valsartan (valsartan 160 mg Tab) zinc acetate (zinc acetate 50 mg oral capsule) [Image Removed: STOP]Stop taking these medications hydrOXYzine (hydrOXYzine hydrochloride 50 mg oral tablet) Procedures Performed Biopsy of breast (02/02/2021), Lumpectomy of right breast (02/02/2021), Dilation and curettage, Tonsillectomy, Tubal ligation, Ultrasonography guided biopsy of right breast. Discharge Vitals Heart Rate (Peripheral) 65 Blood Pressure 120/86 Height 154 cm Height 61 in Weight 57.6 kg Weight 126.72 lb BMI 24.29 What to do next You Need to Complete the Following CBC w/ Auto Diff, Blood, Routine collect, 09/26/23, Order for future visit, Lab Collect, Bronchitis Invalid Interpretation Code Mild recurrent major depression [facility] Medicine Office/Clini c Noteon 09-26-2023 Family Medicine Office/Clinic Note Chief Complaint follow up on bronchitis HPI Staff Patient here today for bronchitis follow up. Onset: 1 month Characteristics: developing a cough, OTC tried: doxycycline x7 days, prednisone x5 days, Zpack History of Present Illness Patient of Shannon De La Rosa NP MDD, osteoporosis, Vit D deficiency 73 yr old female with a PMHx anxiety, breast cancer, Izzy's, MDD, osteoporosis, Vit D deficiency, CAD 40%- goes to [facility]- Dr Burgos Patient here today for: follow up from bronchitis -I have reviewed and discussed the HPI (staff) with the patient today. -Information was verified and is correct. -Additional information provided if needed. 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 Patient is new to [place] Patient is here today for evaluation and overall feeling Medical History: Coronary artery disease, hypertension, Izzy thyroiditis, hypothyroidism, major depression disorder, mild, situational insomnia, mild anxiety, B12 deficiency, hormone deficiency, progesterone deficiency?, Hypokalemia, occipital neuralgia, osteoporosis, vitamin D deficiency, vasomotor symptoms and postmenopausal atrophic vaginitis Breast cancer Past Surgical History: Right breast biopsy sentinel node biopsy, lumpectomy, D&C , tonsillectomy, tubal ligation, EGD colonoscopy Past family History: Social History: 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 Mammogram (qyr 45-54, q2yrs 55-85): Lung CA LDCT (55-74 yo + 30 PYH): DEXA (F>65, M>70): not due yet _ OSTEOPORSIS AAA (>65 +100cigs/life or FHx): Specialists: Long Term: BHARGAV Dentist: BHARGAV Psychology/psychiat ry: none Cardiology: Loretta [facility] Review of Systems PHQ Score Initial Depression Screen Score: 0 Physical Exam Vitals & Measurements HR: 65(Peripheral) BP: 120/86 SpO2: 98% HT: 61 in HT: 154 cm WT: 57.6 kg WT: 126.72 lb BMI: 24.29 General: alert, no acute distress, well appearing, _pleasant, older female Skin: warm, dry, intact Head: no trauma, normocephalic Neck: Trachea midline, no adenopathy, no tenderness Eye: normal conjunctiva, sclera clear, _PERRLA ENMT: TM's retraction of the left TM with serous fluid present, no evidence of purulence or erythema, there is no additional sinus tenderness to palpation, oral mucosa moist, no pharyngeal erythema or exudate, normal dentition Cardiovascular: regular rate and rhythm, normal peripheral perfusion, no edema Respiratory: Lungs CTA and rhonchi, respirations non labored Chest wall: no deformity, non tender Back: No tenderness, Normal ROM, Normal alignment. Extremities: no deformity, no trauma Neurological: oriented x 4, LOC appropriate for age, CN II-XII intact, motor strength equal & normal bilaterally, sensation equal & normal bilaterally, speech normal Psychiatric: cooperative? , affect appropriate for age? , normal? judgement, normal? psychiatric thoughts. Assessment/Plan 1. 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 Benign essential hypertension (I10: Essential (primary) hypertension) Medication management per Dr. Cottrell with [facility], BP is stable proved from last visit Counseled pt to continue to monitor BP at home, follow low salt/caffeine diet, increase physical activity as tolerated with goal 150mins/week. Discussed AHA BP guidelines Discussed HTN sx to report including but not limited to SOB, CP, VARGAS, numbness/tingling, vision changes. Pt verbalized understanding. Continue BP meds: aspirin 81 mg, valsartan 160, Milligrams and metoprolol 50 mg extended release once daily Ordered: Body Mass Index (BMI) documented 3008F CBC w/ Auto Diff Comprehensive Metabolic Panel Current tobacco non-user 1036F Depression Screening Negative 3352F Estrogens Total Lipid Panel Mo (more content not included)... Normal [facility] Comment on above: Result Comment: Elec tronically Signed By: Vilma John\.br\Date and Time Signed: 09/26/23 10:45 EDT Medication Consenton 023 Medication Consent [id number] 7#1.00TIFF [facility] Medication Consent [id number] 54#1.00TIFF [facility] Patient Educationon 09-26-20 23 Patient Education Forms Blood Pressure Record Sheet To take your blood pressure, you will need a blood pressure machine. You may be prescribed one, or you can buy a blood pressure machine (blood pressure monitor) at your clinic, drug store, or online. When choosing one, look for these features: ? An automatic monitor that has an arm cuff. ? A cuff that wraps snugly, but not too tightly, around your upper arm. You should be able to fit only one finger between your arm and the cuff. ? A device that stores blood pressure reading results. ? Do not choose a monitor that measures your blood pressure from your wrist or finger. Follow your health care provider's instructions for how to take your blood pressure. To use this form: ? Get one reading in the morning (a.m.) before you take any medicines. ? Get one reading in the evening (p.m.) before supper. ? Take at least two readings with each blood pressure check. This makes sure the results are correct. Wait 1?2 minutes between measurements. ? Write down the results in the spaces on this form. ? Repeat this once a week, or as told by your health care provider. ? Make a follow-up appointment with your health care provider to discuss the results. Blood pressure log Date: ____ ? a.m. __(1st reading) __(2nd reading) ? p.m. __(1st reading) __(2nd reading) Date: ____ ? a.m. __(1st reading) __(2nd reading) ? p.m. __(1st reading) __(2nd reading) Date: ____ ? a.m. __(1st reading) __(2nd reading) ? p.m. __(1st reading) __(2nd reading) Date: ____ ? a.m. __(1st reading) __(2nd reading) ? p.m. __(1st reading) __(2nd reading) Date: ____ ? a.m. __(1st reading) __(2nd reading) ? p.m. __(1st reading) __(2nd reading) This information is not intended to replace advice given to you by your health care provider. Make sure you discuss any questions you have with your health care provider. Document Revised: 08/01/2022 Document Reviewed: 08/01/2022 Elsevier Patient Education ? 2022 [employer]vier Inc[employer] Mental and Behavioral Health Major Depressive Disorder, Adult Major depressive disorder (MDD) is a mental health condition. It may also be called clinical depression or unipolar depression. MDD causes symptoms of sadness, hopelessness, and loss of interest in things. These symptoms last most of the day, almost every day, for 2 weeks. MDD can also cause physical symptoms. It can interfere with relationships and with everyday activities, such as work, school, and activities that are usually pleasant. MDD may be mild, moderate, or severe. It may be single-episode MDD, which happens once, or recurrent MDD, which may occur multiple times. What are the causes? The exact cause of this condition is not known. MDD is most likely caused by a combination of things, which may include: ? Your personality traits. ? [place] or conditioned behaviors or thoughts or feelings that reinforce negativity. ? Any alcohol or substance misuse. ? Long-term (chronic) physical or mental health illness. ? Going through a traumatic experience or major life changes. What increases the risk? The following factors may make someone more likely to develop MDD: ? A family history of depression. ? Being a woman. ? Troubled family relationships. ? Abnormally low levels of certain brain chemicals. ? Traumatic or painful events in childhood, especially abuse or loss of a parent. ? A lot of stress from life experiences, such as poor living conditions or discrimination. ? Chronic physical illness or other mental health disorders. What are the signs or symptoms? The main symptoms of MDD usually include: ? Constant depressed or irritable mood. ? A loss of interest in things and activities. Other symptoms include: ? Sleeping or eating too much or too little. ? Unexplained weight gain or weight loss. ? Tiredness or low energy. ? Being agitated, restless, or weak. ? Feeling hopeless, worthless, or guilty. ? Trouble thinking clearly or making decisions. ? Thoughts of suicide or thoughts of harming others. ? Isolating oneself or avoiding other people or activities. ? Trouble completing tasks, work, or any normal obligations. Severe symptoms of this condition may include: ? Psychotic depression.This may include false beliefs, or delusions. It may also include seeing, hearing, tasting, smelling, or feeling things that are not real (hallucinations). ? Chronic depression or persistent depressive disorder. This is low-level depressio (more content not included)... Normal [facility] Patient Educationon 09-16-20 23 Patient Education Cardiovascular Hypertension, Adult High blood pressure (hypertension) is when the force of blood pumping through the arteries is too strong. The arteries are the blood vessels that carry blood from the heart throughout the body. Hypertension forces the heart to work harder to pump blood and may cause arteries to become narrow or stiff. Untreated or uncontrolled hypertension can lead to a heart attack, heart failure, a stroke, kidney disease, and other problems. A blood pressure reading consists of a higher number over a lower number. Ideally, your blood pressure should be below 120/80. The first ( top ) number is called the systolic pressure. It is a measure of the pressure in your arteries as your heart beats. The second ( bottom ) number is called the diastolic pressure. It is a measure of the pressure in your arteries as the heart relaxes. What are the causes? The exact cause of this condition is not known. There are some conditions that result in high blood pressure. What increases the risk? Certain factors may make you more likely to develop high blood pressure. Some of these risk factors are under your control, including: ? Smoking. ? Not getting enough exercise or physical activity. ? Being overweight. ? Having too much fat, sugar, calories, or salt (sodium) in your diet. ? Drinking too much alcohol. Other risk factors include: ? Having a personal history of heart disease, diabetes, high cholesterol, or kidney disease. ? Stress. ? Having a family history of high blood pressure and high cholesterol. ? Having obstructive sleep apnea. ? Age. The risk increases with age. What are the signs or symptoms? High blood pressure may not cause symptoms. Very high blood pressure (hypertensive crisis) may cause: ? Headache. ? Fast or irregular heartbeats (palpitations). ? Shortness of breath. ? Nosebleed. ? Nausea and vomiting. ? Vision changes. ? Severe chest pain, dizziness, and seizures. How is this diagnosed? This condition is diagnosed by measuring your blood pressure while you are seated, with your arm resting on a flat surface, your legs uncrossed, and your feet flat on the floor. The cuff of the blood pressure monitor will be placed directly against the skin of your upper arm at the level of your heart. Blood pressure should be measured at least twice using the same arm. Certain conditions can cause a difference in blood pressure between your right and left arms. If you have a high blood pressure reading during one visit or you have normal blood pressure with other risk factors, you may be asked to: ? Return on a different day to have your blood pressure checked again. ? Monitor your blood pressure at home for 1 week or longer. If you are diagnosed with hypertension, you may have other blood or imaging tests to help your health care provider understand your overall risk for other conditions. How is this treated? This condition is treated by making healthy lifestyle changes, such as eating healthy foods, exercising more, and reducing your alcohol intake. You may be referred for counseling on a healthy diet and physical activity. Your health care provider may prescribe medicine if lifestyle changes are not enough to get your blood pressure under control and if: ? Your systolic blood pressure is above 130. ? Your diastolic blood pressure is above 80. Your personal target blood pressure may vary depending on your medical conditions, your age, and other factors. Follow these instructions at home: Eating and drinking ? Eat a diet that is high in fiber and potassium, and low in sodium, added sugar, and fat. An example of this eating plan is called the DASH diet. DASH stands for Dietary Approaches to Stop Hypertension. To eat this way: ? Eat plenty of fresh fruits and vegetables. Try to fill one half of your plate at each meal with fruits and vegetables. ? Eat whole grains, such as whole-wheat pasta, brown rice, or whole-grain bread. Fill about one fourth of your plate with whole grains. ? Eat or drink low-fat dairy products, such as skim milk or low-fat yogurt. ? Avoid fatty cuts of meat, processed or cured meats, and poultry with skin. Fill about one fourth of your plate with lean proteins, such as fish, chicken without skin, beans, eggs, or tofu. ? Avoid pre-made and processed foods. These tend to be higher in sodium, added sugar, and fat. ? Reduce your daily sodium intake. Many people with hypertension should eat less than 1,500 mg of sodium a day. ? Do not drink alcohol if: ? Your health care provider tells you not to drink. ? You are , may be , or are planning to become . ? If you drink alcohol: ? Limit how much you have to: ? 0?1 drink a day for women. ? 0?2 drinks a day for men. ? Know how much alcohol is in your drink. In the [place] one drink equals one 12 oz bottle of beer (355 mL), one 5 oz glass of wine (148 mL), or one 1? oz glass (more content not included)... Normal [facility] Ambulatory Visit Summaryon 1 Ambulatory Visit Summary KERMIT ROSEN Shaw :1950 Visit Date:09/04/2023 Ambulatory Visit Instructions Your Diagnosis Bronchitis Sinusitis Benign essential hypertension BMI 23.0-23.9, adult Your Care Team Attending Physician - Vilma John Primary Care Physician - Rj AVILES, Camryn Murry This Is Your Medications List [facility] [place] Prescription (spacer) albuterol (Albuterol (Eqv-Ventolin HFA) 90 mcg/inh inhalation aerosol) albuterol (Ventolin HFA 90 mcg/inh Aerosol-Adpt) ascorbic acid (Vitamin C 500 mg oral tablet, chewable) aspirin (aspirin 81 mg oral tablet) doxycycline (doxycycline monohydrate 100 mg oral tablet) fluconazole (Diflucan 100 mg Tab) garlic (Garlic) hydrOXYzine (hydrOXYzine hydrochloride 50 mg oral tablet) magnesium amino acids chelate menaquinone (Vitamin K2) metoprolol (metoprolol 50 mg ER Tab) predniSONE (predniSONE 20 mg Tab) sertraline (sertraline 50 mg Tab) thyroid desiccated ([place] Thyroid 30 mg Tab) valsartan (valsartan 160 mg Tab) zinc acetate (zinc acetate 50 mg oral capsule) Procedures Performed Biopsy of breast (02/02/2021), Lumpectomy of right breast (02/02/2021), Dilation and curettage, Tonsillectomy, Tubal ligation, Ultrasonography guided biopsy of right breast. Discharge Vitals Heart Rate (Peripheral) 62 Respiratory Rate 18 Blood Pressure 160/88 Height 61 in Height 154 cm Weight 123.42 lb Weight 56.1 kg BMI 23.65 What to do next Scheduled Follow-Up Appointments Friday 11:00 AM EDT With: Camryn Alves Where: [facility] Normal [facility] Family Medicine Office/Clini c Noteon 09-04-2023 Family Medicine Office/Clinic Note Chief Complaint cold symptoms HPI Staff Reason for Visit: cold symptoms. One time visit. PCP Rj. Placed on ZPak. Pt finished the Zpak yesterday How Lon month Symptoms: Sinus congestions, sinus drainage, semi productive cough, chest congestion, wheezing, headache Pain: 0 Feels Like: N/A OTC meds: Butts leaf (herb), Cough drops, At home testing: Depression: PHQ9: 1 CHRISTIANO: 7 Last Labs done: 07/2022 Covid Vaccine: No Flu Vaccine: Refused Smoker: Non Smoker History of Present Illness Patient of Shannon De La Rosa NP 73 yr old female with a PMHx anxiety, breast cancer, Izzy's, CAD, MDD, osteoporosis, Vit D deficiency Patient here today for: cough, ear pressure -I have reviewed and discussed the HPI (staff) with the patient today. -Information was verified and is correct. -Additional information provided if needed. 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 Review of Systems PHQ Score Initial Depression Screen Score: 0 Constitutional: no fever, no chills, no sweats, no weakness Skin: no Jaundice, no rash, no lesions, nopetechiae ENMT: mild ear pain, mild sore throat, no congestion, no hoarseness Respiratory: mild shortness of breath, moderate cough, no orthopnea, moderate wheezing Cardiovascular: no chest pain, no palpitations, no edema Gastrointestinal: no nausea, no vomiting, no diarrhea, no GI bleeding Genitourinary: no dysuria, no hematuria, no discharge, no pain Musculoskeletal: no back pain, no trauma Neurologic: no headache, no dizziness, no numbness, no weakness Psychiatric: no sleeping problems, no irritability, no mood swings/depression. Heme/Lymph: no bleeding tendency, no bruising tendency, no petechiae, no swollen nodes Allergy/Immunologic : no seasonal allergies, no food allergies, no recurrent infections, no impaired immunity Additional ROS info: Except as noted in the above Review of Systems and in the History of Present Illness all other systems have been reviewed and are negative or noncontributory. Physical Exam Vitals & Measurements HR: 62(Peripheral) RR: 18 BP: 160/88 SpO2: 96% HT: 61 in HT: 154 cm WT: 56.1 kg WT: 123.42 lb BMI: 23.65 General: alert, no acute distress, well appearing, _pleasant Skin: warm, dry, intact Head: no trauma, normocephalic Neck: Trachea midline, no adenopathy, no tenderness Eye: normal conjunctiva, sclera clear, _PERRLA ENMT: TM's retraction of the left TM with serous fluid present, no evidence of purulence or erythema, there is sinus tenderness to palpation, oral mucosa moist, no pharyngeal erythema or exudate, normal dentition Cardiovascular: regular rate and rhythm, normal peripheral perfusion, no edema Respiratory: Lungs expiratory wheezes and rhonchi, respirations non labored Chest wall: no deformity, non tender Gastrointestinal: soft, non distended, no tenderness, no guarding. Back: No tenderness, Normal ROM, Normal alignment. Extremities: no deformity, no trauma Neurological: oriented x 4, LOC appropriate for age, CN II-XII intact, motor strength equal & normal bilaterally, sensation equal & normal bilaterally, speech normal Psychiatric: cooperative? , affect appropriate for age? , normal? judgement, normal? psychiatric thoughts. Assessment/Plan 1. Bronchitis (J40: Bronchitis, not specified as acute or chronic) will treat with doxycycline 100 mg BID x 7 days Prednisone x 5 DAYS Reviewed with patient that physical exam and symptoms are consistent with a viral infection. Discussed antibiotics unfortunately do not treat viral illnesses, it will take time to run its course. The first 3-5 days of symptoms are typically the worst (fever, body aches, etc), with cold symptoms lasting 7-14 days. Encouraged fluids to keep secretions thin. Rest. Take Tylenol/Ibuprofen for pain/fevers as needed, may need to alternate. May use Dayquil or similar for symptoms. Recommended using cool-mist humidifier in room, nettipot, coughing/sneezing into elbow, frequent and thorough hand hygiene. Encouraged to seek re-evaluation with PCP if symptoms persist beyond 14 days without any improvement, and if any fevers above 101 develop, as could have a secondary bacterial infection requiring antibiotics. Patient and/or parent verbalized understanding of treatment plan. Work/school note provided ? Congestion: o mucinex recommended ? Sinus pressure: o sudafed (pseudoephedrine)- avoid due to elevated BP ? antitussives otessalon perles (Benzonatate) 100mg TID x 10day orobitussin (Dextromethorphan) (Rx Bromfed cristina 2mg/10mg/30mg per 5 mL (10ml PO q6h PRN) Max: 40 mL/day; Info: do not exceed 24 mg/day brompheniramine, 120 mg/day dextromethorphan, 240 mg/day pseudoephedrine from all sources oMucinex DM (DM-guaifenesin) ER 60-1200mg (contains guaifenesin and dextromethophan) ? wheezing: oPred (more content not included)... Normal [facility] Comment on above: Result Comment: Elec tronically Signed By: Vilma John.reg\Date and Time Signed: 09/04/23 10:33 EDT Patient Educationon 09-04-20 Patient Education Cardiovascular Hypertension, Adult High blood pressure (hypertension) is when the force of blood pumping through the arteries is too strong. The arteries are the blood vessels that carry blood from the heart throughout the body. Hypertension forces the heart to work harder to pump blood and may cause arteries to become narrow or stiff. Untreated or uncontrolled hypertension can lead to a heart attack, heart failure, a stroke, kidney disease, and other problems. A blood pressure reading consists of a higher number over a lower number. Ideally, your blood pressure should be below 120/80. The first ( top ) number is called the systolic pressure. It is a measure of the pressure in your arteries as your heart beats. The second ( bottom ) number is called the diastolic pressure. It is a measure of the pressure in your arteries as the heart relaxes. What are the causes? The exact cause of this condition is not known. There are some conditions that result in high blood pressure. What increases the risk? Certain factors may make you more likely to develop high blood pressure. Some of these risk factors are under your control, including: ? Smoking. ? Not getting enough exercise or physical activity. ? Being overweight. ? Having too much fat, sugar, calories, or salt (sodium) in your diet. ? Drinking too much alcohol. Other risk factors include: ? Having a personal history of heart disease, diabetes, high cholesterol, or kidney disease. ? Stress. ? Having a family history of high blood pressure and high cholesterol. ? Having obstructive sleep apnea. ? Age. The risk increases with age. What are the signs or symptoms? High blood pressure may not cause symptoms. Very high blood pressure (hypertensive crisis) may cause: ? Headache. ? Fast or irregular heartbeats (palpitations). ? Shortness of breath. ? Nosebleed. ? Nausea and vomiting. ? Vision changes. ? Severe chest pain, dizziness, and seizures. How is this diagnosed? This condition is diagnosed by measuring your blood pressure while you are seated, with your arm resting on a flat surface, your legs uncrossed, and your feet flat on the floor. The cuff of the blood pressure monitor will be placed directly against the skin of your upper arm at the level of your heart. Blood pressure should be measured at least twice using the same arm. Certain conditions can cause a difference in blood pressure between your right and left arms. If you have a high blood pressure reading during one visit or you have normal blood pressure with other risk factors, you may be asked to: ? Return on a different day to have your blood pressure checked again. ? Monitor your blood pressure at home for 1 week or longer. If you are diagnosed with hypertension, you may have other blood or imaging tests to help your health care provider understand your overall risk for other conditions. How is this treated? This condition is treated by making healthy lifestyle changes, such as eating healthy foods, exercising more, and reducing your alcohol intake. You may be referred for counseling on a healthy diet and physical activity. Your health care provider may prescribe medicine if lifestyle changes are not enough to get your blood pressure under control and if: ? Your systolic blood pressure is above 130. ? Your diastolic blood pressure is above 80. Your personal target blood pressure may vary depending on your medical conditions, your age, and other factors. Follow these instructions at home: Eating and drinking ? Eat a diet that is high in fiber and potassium, and low in sodium, added sugar, and fat. An example of this eating plan is called the DASH diet. DASH stands for Dietary Approaches to Stop Hypertension. To eat this way: ? Eat plenty of fresh fruits and vegetables. Try to fill one half of your plate at each meal with fruits and vegetables. ? Eat whole grains, such as whole-wheat pasta, brown rice, or whole-grain bread. Fill about one fourth of your plate with whole grains. ? Eat or drink low-fat dairy products, such as skim milk or low-fat yogurt. ? Avoid fatty cuts of meat, processed or cured meats, and poultry with skin. Fill about one fourth of your plate with lean proteins, such as fish, chicken without skin, beans, eggs, or tofu. ? Avoid pre-made and processed foods. These tend to be higher in sodium, added sugar, and fat. ? Reduce your daily sodium intake. Many people with hypertension should eat less than 1,500 mg of sodium a day. ? Do not drink alcohol if: ? Your health care provider tells you not to drink. ? You are , may be , or are planning to become . ? If you drink alcohol: ? Limit how much you have to: ? 0?1 drink a day for women. ? 0?2 drinks a day for men. ? Know how much alcohol is in your drink. In the [place] one drink equals one 12 oz bottle of beer (355 mL), one 5 oz glass of wine (148 mL), or one 1? oz glass (more content not included)... Normal [facility] Consent for Treatmenton 08-02 Consent for Treatment [id number] Normal [facility] XR Chest 2 Viewson XR Chest 2 Views Exam Date/Time: 08/27/2023 12:14 EDT Reason for Exam: R05.9 cough, unspecified;Cough Report IMPRESSION: There are no acute cardiopulmonary changes. CLINICAL HISTORY: Cough, R05.9 cough, unspecified EXAMINATION: XR Chest 2 Views COMPARISON: Chest x-ray from 01/26/2021 FINDINGS: The cardiomediastinal silhouette is unremarkable. The lungs are free of infiltrates effusions or consolidations. There are no acute osseous changes. Ordering Provider: Camryn De La Rosa FINAL REPORT Dictated: 08/27/2023 12:58 pm Orville Mandujano MD, V. Signed (Electronic Signature): 08/27/2023 12:58 pm Signed by: Orville Mandujano MD, V. Transcribed by: EL Technologist: REGI Technical Comments Radiation Dose: Ka,r in mGy = na DAP = na Normal [facility] Family Medicine Office/Clini c Noteon 08-19-2023 Family Medicine Office/Clinic Note Chief Complaint pt here for new to me, 6 month f/u. concerns of cough, onset few weeks. HPI Staff Medicare wellness: due Last routine labs: 07/12/22 smoker status: never Mammogram (qyr 45-54, q2yrs 55-75): due- refused colonoscopy/cologua rd (45-75yo): utd DEXA (F>65, M>70): utd flu vaccine status: due dep- 7 christiano- 13 History of Present Illness Patient is 73-year-old female presenting today for 6-month follow-up of thyroid and vitamin D levels. Patient used to see Malinda Rubio CNP at [place] [facility]. Overall, pt reports feeling ongoing cough. This started about 2 weeks ago. Pt denies productive mucus, fever, SOB, wheezing, congestion, ear fullness. Pt has hx of bronchitis twice last winter. She was started on albuterol for this and keeps it on hand just in case. She has not used it recently. Medical history includes: Pt has hx of MDD and CHRISTIANO Current medications: Sertraline 50 mg once daily and alprazolam 0.25mg qhs PRN. Pt reports taking Xanas only when she's having trouble shutting down her thoughts to sleep. Pt is not in therapy at this time. Pt reports being well controlled and tolerating medication well at this time. Pt denies medication side effects (VARGAS, sexual dysfunction, increased weight, nausea, drowsiness). Pt denies increased fatigue/sleepiness, SI/HI, feelings of worthlessness, appetite changes, anhedonia, depressed mood, racing thoughts, insomnia, agitation, increased worrying, rapid heart rate, SOB at this time. Patient has high blood pressure. Patient denies any CP or SOB, acute injury/trauma, delirium, seizures, vision changes, nausea, vomiting, back pain, VARGAS, dizziness or irritation at this time. Pt denies recent use of tobacco, decongestants/sudaf ed, albuterol, NSAIDs. Pt is taking medications as prescribed and is tolerating well. No med side effects. Currently taking: Valsartan 160 mg once daily, metoprolol 50mg qd Hx of breast cancer (DCIS) of right breast - biopsy done a few months ago, follows by Dr. Ramos in oncology. Pt has MRI approved, [place] [facility] [place]. Patient is hypothyroid Izzy's thyroiditis Compliant with medication. Is taking on an empty stomach. Current medication dose: [place] Thyroid 30mg qd Pt denies sx of memory loss, increased weight, menorrhagia, skin/hair dryness, mental slowness, increased tiredness, intolerance to cold, raised BP, energy loss, depression, slow reflexes or constipation at this time. Osteoporosis?not currently medications. Last DEXA done at [facility]. Will be starting Calcium and Vit D supplements. Review of Systems PHQ Score Initial Depression Screen Score: 2 Physical Exam Vitals & Measurements T: 36.6 ?C(Oral) HR: 71(Peripheral) BP: 132/78 SpO2: 95% HT: 61 in HT: 154 cm WT: 58.0 kg WT: 127.6 lb BMI: 24.46 General: Well developed, well nourished, in no acute distress Eyes: Bilateral PERRLA, conjunctivae and sclerae wnl, EOMs intact, lids without stye, chalazion, ect/extropion, ptosis, xanthelasma, blepharitis. No discharge to inner canthi.Negative for corneal abrasion or foreign bodies. Ears: bilateral external canals intact , no discharge. Bilateral tympanic membrane pearly ignacio and intact, light reflex present. No pain with manipulation of tragus and pinna bilaterally. Hearing grossly normal to conversational speech. Nose: No deformity, discharge, inflammation, or lesions. No congestion, no erythema; pink & moist turbinates; clear rhinorrhea. Mouth: mucous membranes pink, moist and intact. [place] posterior oropharynx, no palatal inflammation, uvula midline, no cobble-stoning, no enlarged tonsils, no tonsillar exudate, no ulcers, no active post nasal drip. tongue midline and wnl. Good dentition. Neck: Neck supple. No lymphadenopathy. Trachea midline. No thyroid, masses, tenderness, or enlargement noted. No bruit. Lungs: Normal respiratory effort and clear to auscultation Cardio: Regular rate and rhythm, normal S1 and S2, no murmur, no rub Abdomen: soft/non-distended. BS normoactive in all 4 quadrants. No peristaltic waves/pulsations/or ganomegaly/suprapub ic bulge/tenderness/ma sses/guarding/rigid ity/bruits/dullness to percussion. Negative Thorpe's/McBurney's /Rovsing's/psoas signs/CVA tenderness. Musculoskeletal: No deformity or scoliosis noted. No vertebral tenderness. Normal range of motion. No vertebral point tenderness. Joints normal. No erythema, edema, effusion, crepitus, or ecchymosis. Straight leg raise negative Extremity: No clubbing, cyanosis, edema, or deformity. Normal ROM with upper and lower extremities, bilaterally. Neurologic: Cranial nerves II-XII grossly intact. motor strength equal & normal bilaterally, sensation equal & normal bilaterally. Gait normal. Skin: No rashes, ulcerations, or suspicious lesions Mental Status: Alert and oriented x3. Normal mood and affect Assessment/Plan 1. Mild recurrent major depression (F33.0: Major depressive disorder, recurrent, mild) PHQ-9 score: 7 continue Sertraline 50 (more content not included)... Normal [facility] Comment on above: Result Comment: Elec tronically Signed By: Rj AVILES, Camryn Murry\.br\Date and Time Signed: 08/19/23 11:47 EDT Pre-Certification Formon Pre-Certification Form [id number] 5E#1.00CD:127 Normal [facility] Dexa Scanson 08-12-2023 Dexa Scans [id number] C#1.00CD:127 Normal [facility] Office Visit (Cardiology)on 07-15-2023 Follow-up visit Diagnoses/Problems Assessed Coronary artery disease, non-occlusive (414.00) (I25.10) 40% LAD, cardiac catheterization 2019 Essential hypertension (401.9) (I10) Mitral valve insufficiency, unspecified etiology (424.0) (I34.0) mild by echocardiogram 2017 Dyslipidemia (272.4) (E78.5) Hypothyroidism (244.9) (E03.9) Body mass index (BMI) of 24.0 to 24.9 in adult (V85.1) (Z68.24) Never a smoker Orders Coronary artery disease, non-occlusive, Dyslipidemia Renew: Aspirin 81 MG Oral Tablet Delayed Release; 1 tablet Friday and Friday ALT - Alanine Aminotransferase, Serum; Status:Active - Retrospective Authorization; Requested for:13Oct2023; AST; Status:Active - Retrospective Authorization; Requested for:13Oct2023; Lipid Panel; Status:Active - Retrospective Authorization; Requested for:13Oct2023; Coronary artery disease, non-occlusive, Dyslipidemia, Essential hypertension, Mitral valve insufficiency, unspecified etiology ALT - Alanine Aminotransferase, Serum; Status:Active; Requested for:10Jul2023; AST; Status:Active; Requested for:10Jul2023; Basic Metabolic Panel; Status:Active; Requested for:10Jul2023; Complete Blood Count; Status:Active; Requested for:10Jul2023; Lipid Panel; Status:Active; Requested for:10Jul2023; Dyslipidemia Start: Co Q 10 100 MG Oral Capsule; TAKE 1 CAPSULE Daily Start: Rosuvastatin Calcium 10 MG Oral Tablet (Crestor); TAKE 1 TABLET AT BEDTIME Essential hypertension Renew: Metoprolol Succinate ER 50 MG Oral Tablet Extended Release 24 Hour; TAKE 1 TABLET DAILY SocHx: Never a smoker Tobacco Use Screening; Status:Complete; Done: [id number] Patient Instructions Please bring all medicines, vitamins, and herbal supplements with you when you come to the office. Prescriptions will not be filled unless you are compliant with your follow up appointments or have a follow up appointment scheduled as per instruction of your physician. Refills should be requested at the time of your visit. Follow up in 1 year. crestor 10 mg Patient will monitor b/p at home Blood Pressure Follow Up In 2 weeks Chief Complaint KERMIT ROSEN is being seen for an annual follow-up of. Patient is in the office for follow-up for the problems noted below. Recent lab data from yesterday were reviewed LDL is up to 35 mg/dL. Other labs were okay. Her pressure is quite elevated in the office today at 170 mmHg in both arms. She has taken valsartan this morning. She told me that she was other doctors office last week and her blood pressure was normal. The patient apparently he is not following low-salt diet. Apart from hypertension physical examination was normal. Assessment/recommen dations 1?mild coronary atherosclerosis with 40% mid anterior descending artery lesion, patient is asymptomatic and remains on aspirin, the patient was convinced today to go on statin therapy based on her recent lab data and she is agreeable to go on rosuvastatin 10 mg daily. 2?hypertension not under control., The patient will come back in few weeks and bring her blood pressure cuff from home to see how the readings are compared to her home readings which are reportedly normal. 3?hypothyroidism on replacement therapy. 4?hyperlipidemia, LDL recently 135 mg/dL. I convinced the patient to go on statin therapy given the fact that she has CAD in the LAD distribution. 10 mg of rosuvastatin was started. 5?mild and insignificant mitral regurgitation by echocardiogram 2018 Surgical History Problems History of Breast biopsy History of Cardiac catheterization 2019 40% LAD History of Complete colonoscopy Managed By: Brayden Guevara DO A History of Dilation and curettage History of Lumpectomy left History of Tonsillectomy History of Tubal ligation Past Medical History Problems History of chest pain (V13.89) (Z87.898) Resolved Date: 16 Jul 2022 Current Meds Medication NameInstruction ALPRAZolam 0.25 MG Oral TabletTAKE 1 TABLET DAILY NEEDED. [place] Thyroid 30 MG Oral TabletTAKE 1 TABLET BY MOUTH EVERY DAY Aspirin 81 MG Oral Tablet Delayed Release1 tablet Friday and Friday Metoprolol Succinate ER 50 MG Oral Tablet Extended Release 24 HourTAKE 1 TABLET DAILY. Nitroglycerin 0.4 MG Sublingual Tablet SublingualPLACE 1 TABLET UNDER THE TONGUE EVERY 5 MINUTES FOR UP TO 3 DOSES NEEDED FOR CHEST PAIN.CALL 911 IF PAIN PERSISTS. Sertraline HCl - 50 MG Oral TabletTAKE 1 TABLET DAILY. Valsartan 160 MG Oral TabletTAKE 1 TABLET DAILY. Allergies Medication diclofenac Adverse Reaction; Hypertension;; Recorded By: Sena Barr; 10/08/2021 8:24:19 AM Diclofenac Sodium TABS lisinopril Adverse Reaction; Cough; Recorded By: Sena Barr; 10/08/2021 8:24:19 AM atorvastatin Adverse Reaction; Recorded By: eSna Barr; 10/08/2021 8:24:19 AM CeleXA TABS Adverse Reaction; Recorded By: Sena Barr; 10/08/2021 8:24:19 AM Intolerance doxycycline Recorded By: Sena Barr; 10/08/2021 (more content not included)... Normal [facility] Tobacco Screening.on 023 Adult depression screening assessment No [facility] [address] DO Work Phone: Fall risk assessment a) No falls within the last year [facility] [address] DO Work Phone: Tobacco use status [facility] b) No [facility] [address] DO Work Phone: Alanine Aminotransferaseon 0 07-14-2023 ALT [Catalytic activity/Vol] 13 U/L Normal [facility] Comment on above: Order Comment: PT FA STED 12 HOURS Performed By: #### A LT, LIPID, CBC, AST, BMP #### [facility] [address] [place] [address] [place] Alanine aminotransferase [En zymatic activity/volume] in Serum or PlasmaOrdered By: Jay Jay Mariscal on 07-14-2023 ALT [Catalytic activity/Vol] 13 U/L [facility] Aspartate Amino Transferaseo n 07-14-2023 AST [Catalytic activity/Vol] 19 U/L Normal [facility] Comment on above: Order Comment: PT FA STED 12 HOURS Performed By: #### A LT, LIPID, CBC, AST, BMP #### [facility] [address] [place] [address] [place] Aspartate aminotransferase [ Enzymatic activity/volume] in Serum or PlasmaOrdered By: Jay Jay Mariscal on 07-14-2023 AST [Catalytic activity/Vol] 19 U/L [facility] Basic Metabolic Panelon 07-01 Anion gap [Moles/Vol] 8.8 mmol/L Normal 6.0-15.0 [facility] Comment on above: Order Comment: PT FA STED 12 HOURS Performed By: #### A LT, LIPID, CBC, AST, BMP #### [facility] [address] [place] [address] [place] Calcium [Mass/Vol] 9.4 mg/dL Normal 8.6-10.3 [facility] Comment on above: Order Comment: PT FA STED 12 HOURS Performed By: #### A LT, LIPID, CBC, AST, BMP #### [facility] [address] [place] [address] [place] Chloride [Moles/Vol] 108 mmol/L High 98-107 [facility] Comment on above: Order Comment: PT FA STED 12 HOURS Performed By: #### A LT, LIPID, CBC, AST, BMP #### [facility] [address] [place] [address] [place] CO2 [Moles/Vol] 28.8 mmol/L Normal 21.0-31.0 [facility] Comment on above: Order Comment: PT FA STED 12 HOURS Performed By: #### A LT, LIPID, CBC, AST, BMP #### [address] Creatinine [Mass/Vol] 0.73 mg/dL Normal 0.60-1.20 [facility] Comment on above: Order Comment: PT FA STED 12 HOURS Performed By: #### A LT, LIPID, CBC, AST, BMP #### [place] [address] [place] GFR/1.73 sq M.predicted MDRD (S/P/Bld) [Vol rate/Area] mL/min/{1.73_m2} Normal [facility] Comment on above: Order Comment: PT FA STED 12 HOURS Performed By: #### A LT, LIPID, CBC, AST, BMP #### [address] Glucose [Mass/Vol] 85 mg/dL Normal 70-100 [facility] Comment on above: Order Comment: PT FA STED 12 HOURS Result Comment: [facility] Glucose Reference Range is dependent on time and content of last meal. Glucose of more than 200 mg/dL in a nonstressed, ambulatory subject supports the diagnosis of Diabetes Mellitus. ADA recommended reference range Performed By: #### A LT, LIPID, CBC, AST, BMP #### [facility] [address] [place] [address] Potassium [Moles/Vol] 4.6 mmol/L Normal 3.5-5.1 [facility] Comment on above: Order Comment: PT FA STED 12 HOURS Performed By: #### A LT, LIPID, CBC, AST, BMP #### [facility] [address] [place] [address] Sodium [Moles/Vol] 141 mmol/L Normal 136-145 [facility] Comment on above: Order Comment: PT FA STED 12 HOURS Performed By: #### A LT, LIPID, CBC, AST, BMP #### [place] [address] [place] Urea nitrogen [Mass/Vol] 16 mg/dL Normal 7-25 [facility] Comment on above: Order Comment: PT FA STED 12 HOURS Performed By: #### A LT, LIPID, CBC, AST, BMP #### [facility] [address] Basophils Auto (Bld) [#/Vol] Ordered By: Jay Jay Mariscal on 07-14-2023 Basophils (Bld) [#/Vol] 0.0 10*3/uL 0.0-0.2 [facility] Basophils/100 WBC Auto (Bld) Ordered By: Jay Jay Mariscal on 07-14-2023 Basophils/100 WBC (Bld) 0.9 % . [facility] Calcium [Mass/volume] in Ser um or PlasmaOrdered By: Jay Jay Mariscal on 07-14-2023 Calcium [Mass/Vol] 9.4 mg/dL 8.6-10.3 [facility] Carbon dioxide, total [Moles /volume] in Serum or PlasmaOrdered By: Jay Jay Mariscal on 07-14-2023 CO2 [Moles/Vol] 28.8 mmol/L 21.0-31.0 [facility] Chloride [Moles/volume] in S rina or PlasmaOrdered By: Jay Jay Mariscal on 07-14-2023 Chloride [Moles/Vol] 108 mmol/L 98-107 [facility] Cholesterol [Mass/volume] in Serum or PlasmaOrdered By: Jay Jay Mariscal on 07-14-2023 Cholesterol [Mass/Vol] 220 mg/dL 140-200 [facility] Comment on above: Chol less than 200 m g/dl low riskChol 201-239 mg/dl borderline riskChol 240 mg/dl and greater high risk Cholesterol in LDL Calc [Mas s/Vol]Ordered By: Jay Jay Mariscal on 07-14-2023 Cholesterol in LDL [Mass/Vol] 135 mg/dL 0-100 [facility] Comment on above: LDL ATP III CLASSIFI CATIONLDL less than 100 mg/dL OptimalLDL 100-129 mg/dL Near or above optimalLDL 130-159 mg/dL Borderline highLDL 160-189 mg/dL HighLDL greater than 189 mg/dL Very high Cholesterol in VLDL Calc [Ma ss/Vol]Ordered By: Jay Jay Mariscal on 07-14-2023 Cholesterol in VLDL [Mass/Vol] 30 mg/dL [facility] Complete Blood Count Auto Di ffon 07-14-2023 Basophils (Bld) [#/Vol] 0.0 10*3/uL Normal 0.0-0.2 [facility] Comment on above: Result Comment: PERF ORMED BY: [place] [address] PATHOLOGIST [employer]KE SMART M.D. Performed By: #### A LT, LIPID, CBC, AST, BMP #### [address] Basophils/100 WBC (Bld) 0.9 % Normal . [facility] Comment on above: Performed By: #### A LT, LIPID, CBC, AST, BMP #### [address] Eosinophils (Bld) [#/Vol] 0.1 10*3/uL Normal 0.0-0.45 [facility] Comment on above: Performed By: #### A LT, LIPID, CBC, AST, BMP #### [address] Eosinophils/100 WBC (Bld) 2.0 % Normal . [facility] Comment on above: Performed By: #### A LT, LIPID, CBC, AST, BMP #### [address] Erythrocyte distribution width (RBC) [Ratio] 13.0 % Normal 11.9-15.3 [facility] Comment on above: Performed By: #### A LT, LIPID, CBC, AST, BMP #### [address] Hematocrit (Bld) [Volume fraction] 40.5 % Normal 34.0-46.4 [facility] Comment on above: Performed By: #### A LT, LIPID, CBC, AST, BMP #### [facility] [address] Hemoglobin (Bld) [Mass/Vol] 13.6 g/dL Normal 11.8-15.4 [facility] Comment on above: Performed By: #### A LT, LIPID, CBC, AST, BMP #### [address] Lymphocytes (Bld) [#/Vol] 1.5 10*3/uL Normal 1.00-4.8 [facility] Comment on above: Performed By: #### A LT, LIPID, CBC, AST, BMP #### [address] Lymphocytes/100 WBC (Bld) 34.3 % Normal . [facility] Comment on above: Performed By: #### A LT, LIPID, CBC, AST, BMP #### [address] MCH (RBC) [Entitic mass] 30.5 pg Normal 24.7-34.3 [facility] Comment on above: Performed By: #### A LT, LIPID, CBC, AST, BMP #### [address] MCV (RBC) [Entitic vol] 90.8 fL Normal 80-100 [facility] Comment on above: Performed By: #### A LT, LIPID, CBC, AST, BMP #### [address] Mean Corpuscular HGB Conc 33.6 g/dL Normal 32.0-35.0 [facility] Comment on above: Performed By: #### A LT, LIPID, CBC, AST, BMP #### [address] Monocytes (Bld) [#/Vol] 0.3 10*3/uL Normal 0.0-0.8 [facility] Comment on above: Performed By: #### A LT, LIPID, CBC, AST, BMP #### [address] Monocytes/100 WBC (Bld) 7.2 % Normal . [facility] Comment on above: Performed By: #### A LT, LIPID, CBC, AST, BMP #### [address] Neutrophils (Bld) [#/Vol] 2.4 10*3/uL Normal 1.8-7.7 [facility] Comment on above: Performed By: #### A LT, LIPID, CBC, AST, BMP #### [address] Neutrophils/100 WBC (Bld) 55.6 % Normal . [facility] Comment on above: Performed By: #### A LT, LIPID, CBC, AST, BMP #### [address] NRBC% 0.1 /100{WBC} Normal 0-0.5 [facility] Comment on above: Performed By: #### A LT, LIPID, CBC, AST, BMP #### [address] Platelet mean volume (Bld) [Entitic vol] 9.3 fL Normal 6.3-10.7 [facility] Comment on above: Performed By: #### A LT, LIPID, CBC, AST, BMP #### [place] [address] [place] Platelets (Bld) [#/Vol] 189 10*3/uL Normal 150-450 [facility] Comment on above: Performed By: #### A LT, LIPID, CBC, AST, BMP #### [place] [address] [place] RBC (Bld) [#/Vol] 4.46 10*6/uL Normal 3.60-5.00 [facility] Comment on above: Performed By: #### A LT, LIPID, CBC, AST, BMP #### [place] [address] [place] WBC (Bld) [#/Vol] 4.3 10*3/uL Normal 3.8-11.6 [facility] Comment on above: Performed By: #### A LT, LIPID, CBC, AST, BMP #### [facility] [address] Creatinine [Mass/volume] in Serum or PlasmaOrdered By: Jay Jay Mariscal on 07-14-2023 Creatinine [Mass/Vol] 0.73 mg/dL 0.60-1.20 [facility] Eosinophils Auto (Bld) [#/Vo l]Ordered By: Jay Jay Mariscal on 07-14-2023 Eosinophils (Bld) [#/Vol] 0.1 10*3/uL 0.0-0.45 [facility] Eosinophils/100 WBC Auto (Bl d)Ordered By: Jay Jay Farmerahim on 07-14-2023 Eosinophils/100 WBC (Bld) 2.0 % . [facility] Erythrocyte distribution wid th Auto (RBC) [Ratio]Ordered By: Goyal Mariscal on 07-14-2023 Erythrocyte distribution width (RBC) [Ratio] 13.0 % 11.9-15.3 [facility] Glucose [Mass/volume] in Ser um or PlasmaOrdered By: Jay Jay Mariscal on 07-14-2023 Glucose [Mass/Vol] 85 mg/dL 70-100 [facility] Comment on above: ADA recommended refe rence rangeRandom Glucose Reference Range is dependent on time and content of last meal. Glucose of more than 200 mg/dL in a nonstressed, ambulatory subject supports the diagnosis of Diabetes Mellitus. Hematocrit Auto (Bld) [Volum e fraction]Ordered By: Jay Jay Mariscal on 07-14-2023 Hematocrit (Bld) [Volume fraction] 40.5 % 34.0-46.4 [facility] Hemoglobin [Mass/volume] in BloodOrdered By: Jay Jay Mariscal on 07-14-2023 Hemoglobin (Bld) [Mass/Vol] 13.6 g/dL 11.8-15.4 [facility] Laboratory - Chemistry and C hemistry - challengeon 07-14-2023 Cholesterol [Mass/Vol] 220\S\220 above high threshold 140-200 [facility]ger 250 DO Work Phone: Comment on above: Chol less than 200 m g/dl low risk Chol 201-239 mg/dl borderline risk Chol 240 mg/dl and greater high risk Cholesterol in LDL [Mass/Vol] 135\S\135 above high threshold 0-100 [facility]u [facility]ger 250 DO Work Phone: Comment on above: LDL ATP III CLASSIFI CATION LDL less than 100 mg/dL Optimal LDL 100-129 mg/dL Near or above optimal LDL 130-159 mg/dL Borderline high LDL 160-189 mg/dL High LDL greater than 189 mg/dL Very high Leukocytes [#/volume] correc naheed for nucleated erythrocytes in Blood by Automated counOrdered By: Jay Jay Mariscal on 07-14-2023 WBC corrected for nucl RBC Auto (Bld) [#/Vol] 4.3 10*3/uL 3.8-11.6 [facility] Lipid Panelon 07-14-2023 Cholesterol [Mass/Vol] 220 mg/dL High 140-200 [facility] Comment on above: Order Comment: PT FA STED 12 HOURS Result Comment: Chol less than 200 mg/dl low risk Chol 201-239 mg/dl borderline risk Chol 240 mg/dl and greater high risk Performed By: #### A LT, LIPID, CBC, AST, BMP #### [facility] [address] [place] [id number] [place] Cholesterol in HDL [Mass/Vol] 54 mg/dL Normal 23-92 [facility] Comment on above: Order Comment: PT FA STED 12 HOURS Result Comment: HDL CHOL ATP-III CLASSIFICATION Cardiovascular Risk HDL > or equal to 60 mg/dL LOW HDL < 40 mg/dL HIGH Performed By: #### A LT, LIPID, CBC, AST, BMP #### [facility] [address] [place] [address] [place] Cholesterol.total/Ch olesterol in HDL [Mass ratio] 4.1 {ratio} Normal <5.0 [facility] Comment on above: Order Comment: PT FA STED 12 HOURS Result Comment: PERF ORMED BY: [place] [address] [place] [address] PATHOLOGIST [employer] BLAKE SMART M.D. Performed By: #### A LT, LIPID, CBC, AST, BMP #### [facility] [address] LDL Cholesterol,Calculat ed 135 mg/dL High 0-100 [facility] Comment on above: Order Comment: PT FA STED 12 HOURS Result Comment: LDL ATP III CLASSIFICATION LDL less than 100 mg/dL Optimal LDL 100-129 mg/dL Near or above optimal LDL 130-159 mg/dL Borderline high LDL 160-189 mg/dL High LDL greater than 189 mg/dL Very high Performed By: #### A LT, LIPID, CBC, AST, BMP #### [facility] [address] Triglyceride w/Reflex 153 mg/dL High 0-149 [facility] Comment on above: Order Comment: PT FA STED 12 HOURS Result Comment: TRIG ATP III CLASSIFICATION TRIG less than 150 mg/dL Normal TRIG 150-199 mg/dL Borderline high TRIG 200-500 mg/dL High TRIG greater than 500 mg/dL Very high Standard traceable to the Center for Disease Conrtrol and Prevention (CDC) test method. Performed By: #### A LT, LIPID, CBC, AST, BMP #### [facility] [address] VLDL CHOLESTEROL 30 mg/dL Normal [facility] Comment on above: Order Comment: PT FA STED 12 HOURS Performed By: #### A LT, LIPID, CBC, AST, BMP #### [facility] [address] Lymphocytes Auto (Bld) [#/Vo l]Ordered By: Jay Jay Mariscal on 07-14-2023 Lymphocytes (Bld) [#/Vol] 1.5 10*3/uL 1.00-4.8 [facility] Lymphocytes/100 WBC Auto (Bl d)Ordered By: Jay Jay Mariscal on 07-14-2023 Lymphocytes/100 WBC (Bld) 34.3 % . [facility] MCH Auto (RBC) [Entitic mass ]Ordered By: Jay Jay Mariscal on 07-14-2023 MCH (RBC) [Entitic mass] 30.5 pg 24.7-34.3 [facility] MCHC Auto (RBC) [Mass/Vol]Or dered By: Jay Jay Mariscal on 07-14-2023 MCHC (RBC) [Mass/Vol] 33.6 g/dL 32.0-35.0 [facility] MCV Auto (RBC) [Entitic vol] Ordered By: Jay Jay Mariscal on 07-14-2023 MCV (RBC) [Entitic vol] 90.8 fL 80-100 [facility] Monocytes Auto (Bld) [#/Vol] Ordered By: Jay Jay Mariscal on 07-14-2023 Monocytes (Bld) [#/Vol] 0.3 10*3/uL 0.0-0.8 [facility] Monocytes/100 WBC Auto (Bld) Ordered By: Jay Jay Mariscal on 07-14-2023 Monocytes/100 WBC (Bld) 7.2 % . [facility] Neutrophils Auto (Bld) [#/Vo l]Ordered By: Jay Jay Mariscal on 07-14-2023 Neutrophils (Bld) [#/Vol] 2.4 10*3/uL 1.8-7.7 [facility] Neutrophils/100 WBC Auto (Bl d)Ordered By: Jay Jay Mariscal on 07-14-2023 Neutrophils/100 WBC (Bld) 55.6 % . [facility] No Panel InformationOrdered By: Jay Jay Mariscal on 07-14-2023 Estimated GFR (CKD-EPI) > 60.0 mL/Min [facility] Creatinine Clearance (Chem N/A [facility] No Panel Informationon 07-14 55.6\S\55.6 Normal . -[facility] Kextil 250 DO Work Phone: 9.3\S\9.3 Normal 6.3-10.7 [facility] Kextil 250 DO Work Phone: [phone]\[phone] Normal 150-450 [facility] [place] 250 DO Work Phone: 13.0\S\13.0 Normal 11.9-15.3 [facility] [place] 250 DO Work Phone: 33.6\S\33.6 Normal 32.0-35.0 [facility] Heart-Sandu roger 250 DO Work Phone: [phone] 30.5\S\30.5 Normal 24.7-34.3 [facility] Heart-Sandu roger 250 DO Work Phone: [phone] 2.4\S\2.4 Normal 1.8-7.7 [facility] Heart-Sandu roger 250 DO Work Phone: [phone] 0.1\S\0.1 Normal 0.0-0.45 [facility] Heart-Sandu roger 250 DO Work Phone: [phone] 0.9\S\0.9 Normal . [facility]-Sandu roger 250 DO Work Phone: [phone] 2.0\S\2.0 Normal . [facility] Heart-Sandu roger 250 DO Work Phone: [phone] 7.2\S\7.2 Normal . [facility] Heart-Sandu roger 250 DO Work Phone: [phone] 34.3\S\34.3 Normal . [facility] Heart-Sandu roger 250 DO Work Phone: [phone] 0.0\S\0.0 Normal 0.0-0.2 [facility] Heart-Tishu roger 250 DO Work Phone: [phone] Comment on above: PERFORMED BY:[facility] [place], [place] [id number] MEDICAL DIRECTORBLAKE SMART M.D. 0.3\S\0.3 Normal 0.0-0.8 [facility] Heart-Sandu roger 250 DO Work Phone: [phone] 1.5\S\1.5 Normal 1.00-4.8 [facility] Heart-Sandu roger 250 DO Work Phone: [phone] 90.8\S\90.8 Normal 80-100 [facility] Heart-Sandu roger 250 DO Work Phone: [phone] 40.5\S\40.5 Normal 34.0-46.4 [facility] Heart-Sandu roger 250 DO Work Phone: [phone] 13.6\S\13.6 Normal 11.8-15.4 [facility] Heart-Sandu roger 250 DO Work Phone: [phone] 4.46\S\4.46 Normal 3.60-5.00 [facility] Heart-Sandu roger 250 DO Work Phone: [phone] 4.3\S\4.3 Normal 3.8-11.6 [facility] Heart-Sandu roger 250 DO Work Phone: [phone] > 60.0 Normal [facility]-HealthTeacher / GoNoodleu roger 250 DO Work Phone: [phone] 8.8\S\8.8 Normal 6.0-15.0 [facility]-HealthTeacher / GoNoodleu roger 250 DO Work Phone: [phone] 9.4\S\9.4 Normal 8.6-10.3 [facility]-HealthTeacher / GoNoodleu roger 250 DO Work Phone: [phone] 28.8\S\28.8 Normal 21.0-31.0 [facility]-HealthTeacher / GoNoodleu roger 250 DO Work Phone: [phone] 108\S\108 above high threshold 98-107 [facility]-HealthTeacher / GoNoodleu roger 250 DO Work Phone: [phone] 4.6\S\4.6 Normal 3.5-5.1 [facility]-HealthTeacher / GoNoodleu roger 250 DO Work Phone: [phone] 141\S\141 Normal 136-145 [facility] Heart-Sandu roger 250 DO Work Phone: [phone] 0.73\S\0.73 Normal 0.60-1.20 [facility]-HealthTeacher / GoNoodleu roger 250 DO Work Phone: [phone] 16\S\16 Normal 7-25 [facility] Heart-Sandu roger 250 DO Work Phone: [phone] 85\S\85 Normal 70-100 [facility] Heart-Sandu roger 250 DO Work Phone: Comment on above: Random Glucose Refer ence Range is dependent on time and content of last meal. Glucose of more than 200 mg/dL in a nonstressed, ambulatory subject supports the diagnosis of Diabetes Mellitus. ADA recommended reference range 19\S\19 Normal 13-39 [facility] CareEron duran 250 DO Work Phone: 13\S\13 Normal 7-52 [facility] CareEron roger 250 DO Work Phone: 4.1\S\4.1 Normal <5.0 [facility] CareEron roger 250 DO Work Phone: Comment on above: PERFORMED BY:[place] [address] [address] [place], [place] [phone] MEDICAL DIRECTORBLAKE SMART M.D. 30\S\30 Normal [facility] Dental CareTish roger Suarez DO Work Phone: [phone]\S\153 above high threshold 0-149 [facility] CareEssentia Healtheran rogermary Suarez DO Work Phone: Comment on above: TRIG ATP III CLASSIF ICATION TRIG less than 150 mg/dL Normal TRIG 150-199 mg/dL Borderline high TRIG 200-500 mg/dL High TRIG greater than 500 mg/dL Very high Standard traceable to the Center for Disease Conrtrol and Prevention (CDC) test method. 54\S\54 Normal 23-92 [facility] CareEron Suarez DO Work Phone: Comment on above: HDL CHOL ATP-III CLA SSIFICATION Cardiovascular Risk HDL > or equal to 60 mg/dL LOW HDL < 40 mg/dL HIGH Nucleated erythrocytes [Pres ence] in Blood by Automated countOrdered By: Jay Jay Mariscal on 07-14-2023 Nucleated RBC Auto Ql (Bld) 0.1 /100{WBC} 0-0.5 [facility] Platelet mean volume Auto (B ld) [Entitic vol]Ordered By: Jay Jay Mariscal on 07-14-2023 Platelet mean volume (Bld) [Entitic vol] 9.3 fL 6.3-10.7 [facility] Platelets Auto (Bld) [#/Vol] Ordered By: Jay Jay Mariscal on 07-14-2023 Platelets (Bld) [#/Vol] 189 10*3/uL 150-450 [facility] Potassium [Moles/volume] in Serum or PlasmaOrdered By: Jay Jay Mariscal on 07-14-2023 Potassium [Moles/Vol] 4.6 mmol/L 3.5-5.1 [facility] RBC Auto (Bld) [#/Vol]Ordere d By: Jay Jay Mariscal on 07-14-2023 RBC (Bld) [#/Vol] 4.46 10*6/uL 3.60-5.00 [facility] Serum or plasma anion gap de terminationOrdered By: Jay Jay Mariscal on 07-14-2023 Anion gap [Moles/Vol] 8.8 mmol/L 6.0-15.0 [facility] Serum or plasma high density lipoprotein (HDL) cholesterol measurementOrdered By: Jay Jay Mariscal on 07-14-2023 Cholesterol in HDL [Mass/Vol] 54 mg/dL 23-92 [facility] Comment on above: HDL CHOL ATP-III CLA SSIFICATION Cardiovascular RiskHDL > or equal to 60 mg/dL LOWHDL < 40 mg/dL HIGH Serum or plasma total choles terol/high density lipoprotein (HDL) cholesterol mass ratOrdered By: Jay Jay Mariscal on 07-14-2023 Cholesterol.total/Ch olesterol in HDL [Mass ratio] 4.1 {ratio} <5.0 [facility] Sodium [Moles/volume] in Ser um or PlasmaOrdered By: Jay Jay Mariscal on 07-14-2023 Sodium [Moles/Vol] 141 mmol/L 136-145 [facility] Triglyceride [Mass/volume] i n Serum or PlasmaOrdered By: Jay Jay Mariscal on 07-14-2023 Triglyceride [Mass/Vol] 153 mg/dL 0-149 [facility] Comment on above: TRIG ATP III CLASSIF ICATIONTRIG less than 150 mg/dL NormalTRIG 150-199 mg/dL Borderline highTRIG 200-500 mg/dL High TRIG greater than 500 mg/dL Very highStandard traceable to the Center for Disease Conrtrol and Prevention (CDC) test method. Urea nitrogen [Mass/volume] in Serum or PlasmaOrdered By: Jay Jay Mariscal on 07-14-2023 Urea nitrogen [Mass/Vol] 16 mg/dL 06-24 [facility] WBC Auto (Bld) [#/Vol]Ordere d By: Goyal Mariscal on 07-14-2023 WBC (Bld) [#/Vol] 4.3 10*3/uL 3.8-11.6 [facility] Pre-Certification Formon Pre-Certification Form [id number] Normal [facility] Patient Educationon 06-29-20 23 Patient Education Cardiovascular Hypertension, Adult High blood pressure (hypertension) is when the force of blood pumping through the arteries is too strong. The arteries are the blood vessels that carry blood from the heart throughout the body. Hypertension forces the heart to work harder to pump blood and may cause arteries to become narrow or stiff. Untreated or uncontrolled hypertension can lead to a heart attack, heart failure, a stroke, kidney disease, and other problems. A blood pressure reading consists of a higher number over a lower number. Ideally, your blood pressure should be below 120/80. The first ( top ) number is called the systolic pressure. It is a measure of the pressure in your arteries as your heart beats. The second ( bottom ) number is called the diastolic pressure. It is a measure of the pressure in your arteries as the heart relaxes. What are the causes? The exact cause of this condition is not known. There are some conditions that result in high blood pressure. What increases the risk? Certain factors may make you more likely to develop high blood pressure. Some of these risk factors are under your control, including: ? Smoking. ? Not getting enough exercise or physical activity. ? Being overweight. ? Having too much fat, sugar, calories, or salt (sodium) in your diet. ? Drinking too much alcohol. Other risk factors include: ? Having a personal history of heart disease, diabetes, high cholesterol, or kidney disease. ? Stress. ? Having a family history of high blood pressure and high cholesterol. ? Having obstructive sleep apnea. ? Age. The risk increases with age. What are the signs or symptoms? High blood pressure may not cause symptoms. Very high blood pressure (hypertensive crisis) may cause: ? Headache. ? Fast or irregular heartbeats (palpitations). ? Shortness of breath. ? Nosebleed. ? Nausea and vomiting. ? Vision changes. ? Severe chest pain, dizziness, and seizures. How is this diagnosed? This condition is diagnosed by measuring your blood pressure while you are seated, with your arm resting on a flat surface, your legs uncrossed, and your feet flat on the floor. The cuff of the blood pressure monitor will be placed directly against the skin of your upper arm at the level of your heart. Blood pressure should be measured at least twice using the same arm. Certain conditions can cause a difference in blood pressure between your right and left arms. If you have a high blood pressure reading during one visit or you have normal blood pressure with other risk factors, you may be asked to: ? Return on a different day to have your blood pressure checked again. ? Monitor your blood pressure at home for 1 week or longer. If you are diagnosed with hypertension, you may have other blood or imaging tests to help your health care provider understand your overall risk for other conditions. How is this treated? This condition is treated by making healthy lifestyle changes, such as eating healthy foods, exercising more, and reducing your alcohol intake. You may be referred for counseling on a healthy diet and physical activity. Your health care provider may prescribe medicine if lifestyle changes are not enough to get your blood pressure under control and if: ? Your systolic blood pressure is above 130. ? Your diastolic blood pressure is above 80. Your personal target blood pressure may vary depending on your medical conditions, your age, and other factors. Follow these instructions at home: Eating and drinking ? Eat a diet that is high in fiber and potassium, and low in sodium, added sugar, and fat. An example of this eating plan is called the DASH diet. DASH stands for Dietary Approaches to Stop Hypertension. To eat this way: ? Eat plenty of fresh fruits and vegetables. Try to fill one half of your plate at each meal with fruits and vegetables. ? Eat whole grains, such as whole-wheat pasta, brown rice, or whole-grain bread. Fill about one fourth of your plate with whole grains. ? Eat or drink low-fat dairy products, such as skim milk or low-fat yogurt. ? Avoid fatty cuts of meat, processed or cured meats, and poultry with skin. Fill about one fourth of your plate with lean proteins, such as fish, chicken without skin, beans, eggs, or tofu. ? Avoid pre-made and processed foods. These tend to be higher in sodium, added sugar, and fat. ? Reduce your daily sodium intake. Many people with hypertension should eat less than 1,500 mg of sodium a day. ? Do not drink alcohol if: ? Your health care provider tells you not to drink. ? You are , may be , or are planning to become . ? If you drink alcohol: ? Limit how much you have to: ? 0?1 drink a day for women. ? 0?2 drinks a day for men. ? Know how much alcohol is in your drink. In the [place] one drink equals one 12 oz bottle of beer (355 mL), one 5 oz glass of wine (148 mL), or one 1? oz glass (more content not included)... Normal [facility] PAP ACOG PANEL 2: 30 to 65on 04-10-2023 . . Normal [facility] Comment on above: Performed By: #### [id number] #### [facility] [address] [address] [address] Mal Cuenca Age Gdln ACOG Testing Comment [facility] Comment on above: Result Comment: <21 or >65 or no age provided Performed By: #### [id number] #### [facility] [address] [address] [address] Mal Cuenca DIAGNOSIS: Comment [facility] Comment on above: Result Comment: UNSA TISFACTORY FOR EVALUATION. Performed By: #### [id number] #### [facility] [address] [address] [address] Mal Cuenca Methodology: Comment [facility] Comment on above: Result Comment: This liquid based ThinPrep(R) pap test was screened with the use of an image guided system. Performed By: #### [id number] #### [facility] [address] [address] [address] Mal Cuenca Note: Comment [facility] Comment on above: Result Comment: The Pap smear is a screening test designed to aid in the detection of premalignant and malignant conditions of the uterine cervix. It is not a diagnostic procedure and should not be used as the sole means of detecting cervical cancer. Both false-positive and false-negative reports do occur. . Performed By: #### [id number] #### [facility] [address] [address] [address] Mal Cuenca Performed by: Comment Normal [facility] Comment on above: Result Comment: Odalis Cook, Buzzsaw Operator Helper (ASCP) Performed By: #### [id number] #### [facility] [address] [place] [address] Dr. Mal Cuenca QC reviewed by: Comment [facility] Comment on above: Result Comment: Marcelo Webb, Supervisory Buzzsaw Operator Helper (ASCP) Performed By: #### [id number] #### [facility] [address] [place] [address] Dr. Mal Cuenca Recommendation: Comment [facility] Comment on above: Result Comment: Sugg est follow up as clinically appropriate. Performed By: #### [id number] #### [facility] [address] [place] [address] Dr. Mal Cuenca Specimen adequacy: Comment [facility] Comment on above: Result Comment: Spec imen processed and examined, but unsatisfactory for evaluation of epithelial abnormality because of excessive lubricant. Performed By: #### [id number] #### [facility] [address] [place] [address] Dr. Mal Cuenca US PELVIS AND TRANSVAGon US PELVIS AND TRANSVAG EXAMINATION: US PELVIS AND TRANSVAG HISTORY: Postmenopausal bleeding COMPARISON: No relevant comparison available. TECHNIQUE: Transabdominal and transvaginal sonographic examination. FINDINGS: UTERUS: Heterogeneous poorly defined lower uterus and cervix. Uterus size: 6.8 x 2.0 x 3.4 cm ENDOMETRIUM: Mildly thickened. Endometrial thickness: 6 mm. RIGHT OVARY: Not seen. LEFT OVARY: Not seen. CUL-DE-SAC: Unremarkable. No significant free fluid. BLADDER: Unremarkable. OTHER: None. IMPRESSION: 1. Poorly defined heterogeneous soft tissue of the lower uterus and cervix without appreciable internal or well-defined external margins. Mass versus inflammatory changes? Electronically authenticated by: IDALIA GUEVARA Date: 2023-03-05 14:11 Normal [facility] CHEMISTRYOrdered By: SYSTEM SYSTEM on 2023 25-hydroxyvitamin D3 [Mass/Vol] 45.7 ng/mL Normal 30.0 - 100.0 ng/mL [facility] Remisol US BREAST ANDREW LIMITEDon - US BREAST ANDREW LIMITED Patient: KERMIT ROSEN Exam Date: 12/06/2022 : 1950 Gender:F Ordering : DR DANNY SANTILLAN . Admission #: [id number] Family : Order #: [id number] CLICK HERE TO VIEW EXAM RADIOLOGY REPORT PROCEDURE: US BREAST BILATERAL LIMITED COMPARISON: US BREAST RIGHT LIMITED, 04/02/2022. US BREAST ANDREW LIMITED, 08/09/2021. INDICATIONS: Pain of breast TECHNIQUE: Breast ultrasound was performed, with evaluation focusing only on specific areas of concern. FINDINGS: DIAGNOSTIC CATEGORY 4--SUSPICIOUS FOR MALIGNANCY. FINDING DOES NOT EXHIBIT CLASSIC FINDINGS OF BREAST CANCER: RIGHT BREAST: Oval, hypoechoic, slightly heterogeneous 6 x 5 x 4 mm nodule within the lateral right breast 10 o'clock, which is taller than it is wide. Color Doppler demonstrates internal blood flow. Given patient's history of right breast cancer, ultrasound-guided tissue sampling is recommended. LEFT BREAST: No significant suspicious finding. RECOMMENDATIONS: ULTRASOUND-GUIDED CORE BIOPSY: RIGHT BREAST PLEASE NOTE: A NORMAL ULTRASOUND EXAMINATION DOES NOT EXCLUDE THE POSSIBILITY OF BREAST CANCER. A CLINICALLY SUSPICIOUS PALPABLE LUMP SHOULD BE BIOPSIED. Dictated by: Idalia Guevara M.D. on 12/06/2022 at 14:38 Approved by: Idalia Guevara M.D. on 12/06/2022 at 14:43 Normal [facility] CHEMISTRYOrdered By: SYSTEM SYSTEM on 09-12-2022 25-hydroxyvitamin D3 [Mass/Vol] 29.5 ng/mL Low 30.0 - 100.0 ng/mL [facility] CHEMISTRYOrdered By: Wm beaulieu on 09-12-2022 Cobalamin (Vitamin B12) [Mass/Vol] pg/mL Normal 50 - 1500 pg/mL [facility] CHEMISTRYOrdered By: SYSTEM SYSTEM on 09-07-2022 TSH Qn 2.20 m[IU]/L Normal 0.34 - 5.60 mcIU/mL [facility] Remisol CHEMISTRYOrdered By: SYSTEM SYSTEM on 07-12-2022 ALT No additional P-5'-P [Catalytic activity/Vol] 17 [iU]/d Normal 6 - 46 Int._Unit/L [facility] Anion gap [Moles/Vol] 9 mmol/L Normal 6 - 16 mEq/L [facility] AST [Catalytic activity/Vol] 21 [iU]/d Normal 5 - 43 Int._Unit/L [facility] Calcium [Mass/Vol] 9.5 mg/dL Normal 8.9 - 11.1 mg/dL [facility] Chloride [Moles/Vol] 103 mmol/L Normal 101 - 111 mmol/ L [facility] Cholesterol in HDL [Mass/Vol] 55 mg/dL Invalid Interpretation Code [facility] Cholesterol in LDL [Mass/Vol] 129 mg/dL Normal <=129mg/dL [facility] Cholesterol in VLDL [Mass/Vol] 31 mg/dL Normal 7 - 40 mg/dL [facility] Creatinine [Mass/Vol] 0.8 mg/dL Normal 0.5 - 1.3 mg/dL [facility] GFR/1.73 sq M.predicted among blacks MDRD (S/P/Bld) [Vol rate/Area] mL/min/1.73 m2 Normal >=59mL/min/1.73 m2 FT Chem S GFR/1.73 sq M.predicted among non-blacks MDRD (S/P/Bld) [Vol rate/Area] mL/min/1.73 m2 Normal >=59mL/min/1.73 m2 FT Chem S Glucose [Mass/Vol] 101 mg/dL Normal 55 - 199 mg/dL [facility] Potassium [Moles/Vol] 4.1 mmol/L Normal 3.5 - 5.3 mmol/L [facility] Sodium [Moles/Vol] 138 mmol/L Normal 135 - 145 mmol/L [facility] Triglyceride [Mass/Vol] 157 mg/dL High <=149mg/dL [facility] Urea nitrogen [Mass/Vol] 19 mg/dL Normal 5 - 21 mg/dL [facility] Urea nitrogen/Creatinine [Mass ratio] 24 mg/mg High 10 - 20 [facility] HEMATOLOGYOrdered By: Opal Castro on 07-12-2022 Hemoglobin (Bld) [Mass/Vol] 14.3 g/dL Normal 12.0 - 16.0 gm/dL FT HemeAutoSS MCH (RBC) [Entitic mass] 31.4 pg Normal 27.0 - 34.0 pg [facility] HemeAutoSS MCHC (RBC) [Mass/Vol] 34.8 g/dL Normal 31.4 - 36.0 gm/dL [facility] HemeAutoSS MCV (RBC) [Entitic vol] 90.3 fL Normal 80.0 - 100.0 fL FT HemeAutoSS Platelets (Bld) [#/Vol] 207.0 E9/L Normal 150.0 - 500.0 E9/L FT HemeAutoSS RBC (Bld) [#/Vol] 4.6 E12/L Normal 4.3 - 5.9 E12/L FT HemeAutoSS WBC corrected for nucl RBC Auto (Bld) [#/Vol] 3.7 E9/L Low 4.0 - 11.0 E9/L FT HemeAutoSS Laboratory - Chemistry and C hemistry - challengeon 07-12-2022 Cholesterol [Mass/Vol] 129 mg/dL Normal <=129 [facility] 600 DO Work Phone: Cholesterol in LDL [Mass/Vol] 31 mg/dL Normal 7-40 [facility] 600 DO Work Phone: Laboratory - Chemistry and C hemistry - challengeOrdered By: SYSTEM SYSTEM on 07-12-2022 Cholesterol [Mass/Vol] 205 mg/dL High 120 - 200 mg/dL [facility] Remisol CO2 [Moles/Vol] 30 mmol/L Normal 21 - 31 mmol/L [facility] Laboratory - Hematology and Cell countsOrdered By: Opal Castro on 07-12-2022 Erythrocyte distribution width (RBC) [Ratio] 13.1 % Normal 10.9 - 14.2 % [facility] HemeAutoSS Hematocrit (Bld) [Volume fraction] 41.1 % Normal 34.0 - 46.0 % [facility] [place] [facility] Platelet mean volume (Bld) [Entitic vol] 8.9 fL Normal 6.4 - 10.8 fL [facility] [place] [facility] No Panel Informationon 07-12 207.0 {E9/L} Normal 150.0-500.0 [facility] 600 DO Work Phone: [phone] 90.3 fL Normal 80.0-100.0 [facility] 600 DO Work Phone: 34.8 {gm/dL} Normal 31.4-36.0 [facility] 600 DO Work Phone: 31.4 pg Normal 27.0-34.0 [facility] julee 600 DO Work Phone: 14.3 {gm/dL} Normal 12.0-16.0 [facility] julee 600 DO Work Phone: 4.6 {E12/L} Normal 4.3-5.9 [facility] 600 DO Work Phone: 3.7 {E9/L} below low threshold 4.0-11.0 [facility] julee 600 DO Work Phone: 9 {mEq/L} Normal 6-16 [facility] julee 600 DO Work Phone: 103 mmol/L Normal 101-111 [facility] 600 DO Work Phone: 4.1 mmol/L Normal 3.5-5.3 [facility] 600 DO Work Phone: 138 mmol/L Normal 135-145 [facility] julee 600 DO Work Phone: 9.5 mg/dL Normal 8.9-11.1 [facility] julee 600 DO Work Phone: [phone] 24 {No_Units} above high threshold 10-20 [facility] 600 DO Work Phone: 0.8 mg/dL Normal 0.5-1.3 [facility] 600 DO Work Phone: 19 mg/dL Normal 5-21 [facility] 600 DO Work Phone: 101 mg/dL Normal 55-199 [facility] 600 DO Work Phone: Comment on above: If this glucose resu lt represents a fasting glucose, interpretation should refer to the following reference range: 55-99 mg/dL >60 Normal >=59 [facility] 600 DO Work Phone: Comment on above: eGFR is race adjuste d. AA=. Chronic kidney disea se could be indicated at eGFR's of less than 60 mL/min/1.73m2. Kidney failure is indicated at less than 15 mL/min/1.73m2. 17 {Int._Unit/L} Normal 6-46 [facility] 600 DO Work Phone: 21 {Int._Unit/L} Normal 5-43 [facility]e 600 DO Work Phone: 157 mg/dL above high threshold <=149 [facility] 600 DO Work Phone: 55 mg/dL [facility] julee 600 DO Work Phone: Comment on above: HDL > or equal to 60 mg/dL: Low cardiovascular riskHDL < 40 mg/dL : High cardiovascular risk PAP ACOG PANEL 2: 30 to 65on 04-23-2022 . . Normal [facility] Comment on above: Performed By: #### [id number] #### [facility] [address] [place] [address] [id number] [address] Mal Cuenca Age Gdln ACOG Testing Comment Normal [facility] Comment on above: Result Comment: <21 or >65 or no age provided Performed By: #### [id number] #### [facility] [address] [place] [address] Dr. Mal Cuenca DIAGNOSIS: Comment Normal [facility] Comment on above: Result Comment: NEGA TIVE FOR INTRAEPITHELIAL LESION OR MALIGNANCY. Performed By: #### [id number] #### [facility] [address] [place] [address] Dr. Mal Cuenca Methodology: Comment Normal [facility] Comment on above: Result Comment: This liquid based ThinPrep(R) pap test was screened with the use of an image guided system. Performed By: #### [id number] #### [facility] [address] [address] [address] Mal Cuenca Note: Comment Normal [facility] Comment on above: Result Comment: The Pap smear is a screening test designed to aid in the detection of premalignant and malignant conditions of the uterine cervix. It is not a diagnostic procedure and should not be used as the sole means of detecting cervical cancer. Both false-positive and false-negative reports do occur. . Performed By: #### [id number] #### [facility] [address] [place] [address] Dr. Mal Cuenca Performed by: Comment Normal [facility] Comment on above: Result Comment: Nora Canales, Buzzsaw Operator Helper (ASCP) Performed By: #### [id number] #### [facility] [address] [place] [address] Dr. Mal Cuenca Specimen adequacy: Comment Normal [facility] Comment on above: Result Comment: Sati sfactory for evaluation. Endocervical and/or squamous metaplastic cells (endocervical component) are present. Performed By: #### [id number] #### [facility] [address] [place] [address] Dr. Mal Cuenca Falls Risk Screeningon 10-11 Fall risk assessment b) One or more falls in the last year [facility] [employer] [address] DO Work Phone: Tobacco use status CPHS b) [facility] [employer] [facility] Work Phone: CNPNon 04-13-2021 CNPN Telephone (CHRIS) ---- KERMIT ROSEN ([id number]) 1950 F Date Time Provider Department 04/13/21 NICO NEWELL During your visit today, we recorded the following information about you: Nico Newell MD 04/13/2021 10:00 AM Signed Please Call patient if MyChart note not read to review results/released to My Chart if tests completed at [facility]: normal labs and no inflammation. Repeat YOSELIN test Negative. Hand xrays shows osteopenia and osteoarthritis. Happy to further review and discuss at follow up office visit. Continue rest of treatment plan per instructions at last office visit. Thank you. 04/09/21 normal esr 2, crp<0.3, negative rf<10, ccp<15, yoselin ifa; 04/09/21 hand xrays-Mild interphalangeal degenerative changes and generalized osteopenia. Gogo Evans MA 04/13/2021 10:02 AM Signed Spoke to pt aware of results and recommendations. Allergies As of Date: 04/13/2021 Noted Allergy Reaction CELEXA (CITALOPRAM) 04/09/2021 16 - Unknown Comments: felt horrible DICLOFENAC SODIUM 04/09/2021 5 - Intolerance Comments: raised blood pressure DOXYCYCLINE 04/09/2021 16 - Unknown HCTZ (THIAZIDES) 04/09/2021 16 - Unknown LISINOPRIL 04/09/2021 5 - Intolerance Date Reviewed: 04/09/2021 Reviewed by: Nico Newell MD - Fully Assessed Reason for Visit: Results [95] Prescriptions as of 04/13/2021 Sig: FAMOTIDINE 20 MG TABLET Take 20 mg by mouth twice abdirahman* TERRAZZO POLISHER THYROID 30 MG TABLET Take 30 mg by mouth once beto* METOPROLOL SUCCINATE ER 50 MG* Take 50 mg by mouth once beto* LOSARTAN 50 MG TABLET Take 50 mg by mouth once beto* ASPIRIN 81 MG TABLET,DELAYED * Take 81 mg by mouth once beto* SERTRALINE 100 MG TABLET Take 100 mg by mouth once abdirahman* ALPRAZOLAM 0.25 MG TABLET Take 0.25 mg by mouth as need* Problem List As Of Date 04/13/2021 Noted Resolved YOSELIN positive [R76.8] 04/09/2021 Elevated sed rate [R70.0] 04/09/2021 Bilateral hand pain [M79.641, M79.642] 04/09/2021 Secondary osteoarthritis of multiple sites [M15*04/09/2021 Postmenopausal osteoporosis of multiple sites [*04/09/2021 Numbness and tingling in both hands [R20.0, R20*04/09/2021 Numbness and tingling of foot [R20.0, R20.2] 04/09/2021 Dry eye syndrome of both eyes [H04.123] 04/09/2021 Dry mouth [R68.2] 04/09/2021 Cervicalgia [M54.2] 04/09/2021 Encounter Status:Closed by GOGO EVANS MA on 04/13/21 Normal [facility] YOSELIN by IFA w/Reflexon 2020 OYSELIN Pattern Negative Normal [facility] Comment on above: Performed By: #### C CP, CRP, WSR, RF, ANAIFR #### [facility] [employer] [address] [place], [place] [id number] YOSELIN Titer Negative Normal Negative [facility] Comment on above: Result Comment: Norm al range : negative at <1:80 serum dilution. Performed By: #### C CP, CRP, WSR, RF, ANAIFR #### [facility] [employer] [address] [place], [place] [id number] Nuclear Ab IF (S) [Titer] Negative Normal Negative [facility] Comment on above: Result Comment: Norm al range : negative at <1:80 serum dilution. Approximately 6% of patients with connective tissue diseases with low positive EIA values are negative by IFA. Recommend follow-up with specific antinuclear antibodies if clinically indicated. Test performed using Indirect Fluorescence Immunoassay technology (IFA) using HEp-2 cells. Performed By: #### C CP, CRP, WSR, RF, ANAIFR #### [facility] [address] [place], [place] [address] C-Reactive Proteinon 021 CRP [Mass/Vol] mg/L Normal <0.9 [facility] Comment on above: Performed By: #### C CP, CRP, WSR, RF, ANAIFR #### [facility] [address] [place], [place] [address] CCP Antibody, IgGon 04-09-20 21 CCP Antibody, IgG <15 Normal <20 [facility] Comment on above: Result Comment: < 20 units: Negative 20-39 units: Weak Positive 40-59 units: Moderate Positive > 60 units: Strong Positive The following results were obtained with the [employer] QUANTA Lite CCP3 IgG MATT. Anti-CCP values obtained with different manufacturers' assay methods may not be used interchangeably. The magnitude of the reported IgG levels cannot be correlated to an endpoint titer. Performed By: #### C CP, CRP, WSR, RF, ANAIFR #### [facility] [address] [place], [place] [id number] CNOVon 04-09-2021 CNOV Office Visit (CHRIS) ---- KERMIT ROSEN ([id number]) 1950 F Date Time Provider Department 04/09/21 2:00 PM NICO NEWELL During your visit today, we recorded the following information about you: Pulse Blood pressure Weight Height 56/minute 146/86 55.3 kg 1.549 m Nico Newell MD 04/09/2021 5:09 PM Signed NEW CONSULT:RHEUMATOLOG Y SERVICE SERVICE DATE: 04/09/2021 SERVICE TIME: 2:09 PM REASON FOR CONSULT: +YOSELIN REQUESTING PHYSICIAN: Cristin Roblero CNP [address] [facility] [facility] [employer] [id number] PRIMARY CARE PHYSICIAN: Cristin Roblero CNP, COMPLIANCE ADMINISTRATOR Patient's Name: Kermit Rosen 1950 [address] [facility] [address] Accompanied by: self This consult was requested for my medical opinion regarding the rheumatologic evaluation of the patient's +YOSELIN problems, and my final recommendations will be communicated to the requesting health care provider by way of the shared medical record for internal providers or letter via the [employer] for external providers. April 09, 2021 SUBJECTIVE Ms. Rosen is a 71 year old female who presents for +YOSELIN eval. ~5-6years hashimotos, low energy, constipation, hairloss(still has) Better with thyroid medication For years dry eyes/lips/mouth, vaginal area 5years neck pain 2-3years of hands numb when sleeping 2-3months of L>R hand pain, worse with activity Better with ice pack Worse in AM 01/2020 +COVID and after 2days in ICU Patient was in quarantine, asymptomatic, + for antibiotics Numbness and tingling R great toe when driving Has spine curvature Weak hands/tingling Has braces Interested in medical marijuana for breast cancer Not interested in arthritis/osteoporo sis medications due to side effect concerns Reports pain 10/10 at it's worse No falls/fx/trauma/ill ness/oral sores/rash/hairloss /jaw pain/dysphagia/epis taxis/hemoptysis. No adverse effects with meds. No other complaints. Patient denies fever, chills, cp, dyspnea, nausea, vomiting, night sweats, scalp tenderness, visual changes, vargas, bowel/bladder changes, weight changes or other complaints. COMPLETE REVIEW OF SYSTEMS: RHEUM. ROS:R dominant Joint pain: yes -L>R hands Joint swelling: yes L thenar area Am stiffness: yes 30minutes Low back pain: yes Dactylitis: no H/o precedent/frequent infection(s): no Enthesopathy/Achill e's/heel/plantar tenderness: no Skin thickening, psoriasis, photosensitivity, purpura: no Nail changes: stress Alpecia, patchy: yes Eye inflammation: glasses SICCA: dry eyes/lips/mouth Oral/nasal/genital ulcers: no GI problems-diarrhea/b leeding/IBD/Gluten intolerence/Dysphag ia: gerd Raynaud's phenomenon/digital ulcers: no Organ inv-Serositis: no Lung disease/ILD: no Myopathy/proximal muscle weakness: no Abnormal Urine or urethritis: no Renal/liver disease: kidney stone PARTNER CCO/PNS/sz/cva/canc er disease: R breast cancer HEME-Cytopenias/LAD /Clots: no Fevers: no Fatigue: yes, sleeps 6-8 hr/night PMR/GCA ROS: negative Patient denies history of Gout or Pseudogout, Psoriasis, Rheumatic Fever, PUD, Liver Disease, Hepatitis , Kidney Disease, DM, CAD, Dyslipidemia, PAD, Sinusitis, Asthma, TB infection or exposure, Pneumonias, Anemia, Seizures, Stroke, MS, Clots, Transfusions, Tattoos and Alcohol dependency. Other ROS:The remainder of the review of systems is negative. All other reviewed and negative other than HPI. PATIENT REPORTS: Cardiac stress test:2018 abnormal stress test, 40% stenosis Breast exam:see above Pap exam: normal, last menses 50y/o, temporarily/now not taking hormones; G3, P3, no miscarriage Colonoscopy: benign colon polyps, hemorrhoids Bone Density:osteoporosi s repeat due this year Not interested in fosamax History of Fractures:no Height Loss:2 IMMUNIZATION HX: Pneumovax yes Flu shot yes Tetanus yes No COVID vaccine Last PPD: no PAST MEDICAL HISTORY: PMH chronic sinusitis allergic rhinitis, anxiety, depression, vaginal atrophy, essential htn, occipital neuralgia, CAD, vertigo,gerd, izzy, DCIS, kidney stone, benign colon polyps, hemorrhoids, s/p R breast lumpectomy 02/02/21 (no chemo/radiation), s/p R sentinel node, s/p tonsillectomy, s/p tubal ligation PAST SURGICAL HISTORY: s/p R breast lumpectomy 02/02/21 (no chemo/radiation), s/p R sentinel node, s/p tonsillectomy, s/p tubal ligation FAMILY HISTORY: raised in foster home, brother-arthritis;6 brothers (3died);children-he althy SOCIAL HISTORY: 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 Active lisinopril Unknown ? Active diclofenac sodium BP rises Mild Active Citalopram Hydrobromi (more content not included)... Normal [facility] Rheumatoid Factoron 04-09-20 21 Rheumatoid Factor <10 Normal <16 [facility] Comment on above: Performed By: #### C CP, CRP, WSR, RF, ANAIFR #### [facility] [employer] [address] [place], [place] [address] Sed Rate Westergrenon 2020 Sed Rate Westergren 2 mm/hr Normal 0-20 [facility] [place] Comment on above: Performed By: #### C CP, CRP, WSR, RF, ANAIFR #### [facility] [address] [place], [place] [address] XR HAND 3V PA/LAT/OBL BILon 04-09-2021 XR HAND 3V PA/LAT/OBL ANDREW * * *Final Report* * * DATE OF EXAM: Apr 09 2021 3:24PM LNX [id number] - XR HAND 3V PA/LAT/OBL ANDREW / PROCEDURE REASON: multiple diagnoses * * * * Physician Interpretation * * * * XR HAND 3V PA/LAT/OBL ANDREW PROVIDED HISTORY: Bilateral hand pain Bilateral hand pain COMPARISON: No previous similar exams are available for comparison TECHNIQUE: 3 views of the bilateral hands RESULT: Mild interphalangeal degenerative changes and generalized osteopenia. Osseous alignment appears intact with no osseous erosion or osseous destructive process seen. No radiopaque foreign bodies are identified. IMPRESSION: Mild interphalangeal degenerative changes and osteopenia. Asset Administrator: PSCB Transcribe Date/Time: Apr 09 2021 6:14P Dictated by : MARCELLO VALLEJO MD This examination was interpreted and the report reviewed and electronically signed by: MARCELLO VALLEJO MD on Apr 09 2021 6:15PM EST [id number] Normal [facility] XR HAND GENERAL 3V PA/LAT/OB L BILATon 04-09-2021 [facility] CREATININEon 11-08-2019 Creatinine [Mass/Vol] 0.78 mg/dL Normal 0.50 - 1.05 [facility] Comment on above: Performed By: #### C REAT #### [address] [address] Creatinine [Mass/Vol] mg/dL Normal >60 [facility] Comment on above: Performed By: #### C REAT #### [address] [address] Result Comment: CALC ULATIONS OF ESTIMATED GFR ARE PERFORMED USING THE MDRD STUDY EQUATION FOR THE IDMS-TRACEABLE CREATININE METHODS. CLIN CHEM 2007;53:766-72 ELECTROLYTE PANELon 11-08-20 19 Anion gap [Moles/Vol] 13 mmol/L Normal 10 - 20 [facility] Comment on above: Performed By: #### E LECT #### [address] [address] Chloride [Moles/Vol] 106 mmol/L Normal 98 - 107 [facility] Comment on above: Performed By: #### E LECT #### [address] [address] HCO3 (Bld) [Moles/Vol] 26 mmol/L Normal 21 - 32 [facility] Comment on above: Performed By: #### E LECT #### [address] [address] Potassium [Moles/Vol] 4.0 mmol/L Normal 3.5 - 5.3 [facility] Comment on above: Performed By: #### E LECT #### [address] [address] Sodium [Moles/Vol] 141 mmol/L Normal 136 - 145 [facility] Comment on above: Performed By: #### E LECT #### [address] [address] UREA NITROGENon 11-08-2019 Urea nitrogen [Mass/Vol] 20 mg/dL Normal 6 - 23 [facility] Comment on above: Performed By: #### U KUSUM #### [address] [place] [address] [place] [address] OVER READ - NCon 09-08-2017 OVER READ - NC DATE OF EXAM: Sep 08 2017 11:01AMCLINICAL HISTORY/ Name: BARRINGTON ROSENY:OVER READ - [place]; 09/08/2017 11:01 amINDICATION:score. Shortness of breath with exertion. Hypertension and hypercholesterolemi a. Family history of heart disease. Screening.COMPARISO N:None. 5ORDERING CLINICIAN:CRIS GIORDANO:Sushil tigamber unenhanced axial images were obtained through the mid chest for calcium score evaluation. Calcium score portion will be interpreted separately. Images are submitted for over-read.FINDINGS: No lymphadenopathy is seen. No pericardial effusion. Included esophageal segment and included portion of the upper abdomen are unremarkable. Bibasilar predominantly dependent mild atelectasis is present. There is a left lower lobe 3 mm pulmonary nodule (image 56 of 59). No pleural effusion or pneumothorax is seen. Mild anterior endplate spurring present in the lower thoracic spine.CONCLUSION: IMPRESSION:Left lower lobe 3 mm pulmonary nodule.This interpretation, provided by the radiologists of [facility], excludes evaluation of the cardiovascular system, which iscovered in a separate report issued by the ordering cardiologists. The radiologists of [facility] have no responsibilityfor evaluating the structures of the cardiovascular system.*Follow-up recommendations according to the Fleischner Society Criteria (Ying Tamayo, Guidelines for management of small pulmonary nodules detected on CT scans: A statement from the [facility], Radiology 237: [phone].):<=4 mm:Low Risk Patient (Minimal or no smoking or other known risk factors for malignancy): No follow-up needed.High Risk Patient (History of smoking or other known riskfactors): follow-up at 12 months; if unchanged, no further follow-up...>4-6 mm:Low Risk Patient (Minimal or no smoking or other known risk factors for malignancy): Initial follow-up CT at 12 months; if unchanged, no further follow-up.High Risk Patient (History of smoking or other known riskfactors): Initial follow-up CT at 6-12 months then at 18-24 months ifno change...>6-8 mm:Low Risk Patient (Minimal or no smoking or other known risk factors for malignancy): Initial follow-up CT at 6-12 months then at 18-24 months if no change.High Risk Patient (History of smoking or other known riskfactors): Initial follow-up CT at 3-6 months then at 9-12 and 24 months if no change...>8 mm:Follow-up CT at ~3, 9, 24 months, or PET and/or biopsy.. Normal [facility] Vital Signs Date Time Vital Sign Value Performing Clinician Faci lity 07-09-2024 09:38-0400 Blood Pressure Location Vilma Mcallistre [facility] 07-09-2024 09:38-0400 Body temperature 97.52 [degF] Vilma Mcallister [facility] 07-09-2024 09:38-0400 Diastolic blood pressure 84 mm[Hg] Vilma Mcallister [facility] 07-09-2024 09:38-0400 Heart rate 65 /min Vilma Mcallister [facility] 07-09-2024 09:38-0400 Respiratory rate 20 /min Vilma Mcallister [facility] 07-09-2024 09:38-0400 SaO2% (BldA) [Mass fraction] 100 % Vilma Mcallister [facility] 07-09-2024 09:38-0400 Systolic blood pressure 132 mm[Hg] Vilma Mcallister [facility] 05-26-2024 11:55-0400 Blood Pressure Location Vilma Mcallister [facility] 05-26-2024 11:55-0400 Body temperature 98.06 [degF] Vilma Mcallister [facility] 05-26-2024 11:55-0400 Diastolic blood pressure 64 mm[Hg] Vilma Mcallister [facility] 05-26-2024 11:55-0400 Heart rate 62 /min Vilma Mcallister [facility] 05-26-2024 11:55-0400 Respiratory rate 18 /min Vilma Mcallister [facility] 05-26-2024 11:55-0400 SaO2% (BldA) [Mass fraction] 96 % Vilma Mcallister [facility] 05-26-2024 11:55-0400 Systolic blood pressure 132 mm[Hg] Vilma Mcallister [facility] 05-26-2024 11:07-0400 Blood Pressure Location Vilma Mcallister [facility] 05-26-2024 11:07-0400 Diastolic blood pressure 64 mm[Hg] Vilma Mcallister [facility] 05-26-2024 11:07-0400 Heart rate 62 /min Vilma Mcallister [facility] 05-26-2024 11:07-0400 Respiratory rate 16 /min Vilma Mcallister [facility] 05-26-2024 11:07-0400 SaO2% (BldA) [Mass fraction] 96 % Vilma Mcallister [facility] 05-26-2024 11:07-0400 Systolic blood pressure 132 mm[Hg] Vilma Mcallister [facility] 05-12-2024 14:51-0400 Blood Pressure Location Vilma Mcallister [facility] 05-12-2024 14:51-0400 Body temperature 98.06 [degF] Vilma Mcallister [facility] 05-12-2024 14:51-0400 Diastolic blood pressure 78 mm[Hg] Vilma Mcallister [facility] 05-12-2024 14:51-0400 Heart rate 65 /min Vilma Mcallister [facility] 05-12-2024 14:51-0400 Respiratory rate 18 /min Vilma Mcallister [facility] 05-12-2024 14:51-0400 SaO2% (BldA) [Mass fraction] 98 % Vilma Mcallister [facility] 05-12-2024 14:51-0400 Systolic blood pressure 130 mm[Hg] Vilma Mcallister [facility] 05-06-2024 15:09-0400 Blood Pressure Location [facility] 05-06-2024 15:09-0400 Body temperature 98.24 [degF] [facility] 05-06-2024 15:09-0400 Diastolic blood pressure 72 mm[Hg] [facility] 05-06-2024 15:09-0400 Heart rate 83 /min [facility] 05-06-2024 15:09-0400 SaO2% (BldA) [Mass fraction] 95 % [facility] 05-06-2024 15:09-0400 Systolic blood pressure 126 mm[Hg] [facility] 04-14-2024 10:30-0400 Diastolic blood pressure 80 mm[Hg] Vilma Mcallister [facility] 04-14-2024 10:30-0400 Mean blood pressure 93 mm[Hg] Vilma Mcallister [facility] 04-14-2024 10:30-0400 Systolic blood pressure 120 mm[Hg] Vilma Mcallister [facility] 04-14-2024 09:37-0400 Blood Pressure Location Vilma Mcallister [facility] 04-14-2024 09:37-0400 Body temperature 97.7 [degF] Vilma Mcallister [facility] 04-14-2024 09:37-0400 Diastolic blood pressure 68 mm[Hg] Vilma Mcallister [facility] 04-14-2024 09:37-0400 Heart rate 60 /min Vilma Mcallister [facility] 04-14-2024 09:37-0400 Respiratory rate 18 /min Vilma Mcallister [facility] 04-14-2024 09:37-0400 SaO2% (BldA) [Mass fraction] 97 % Vilma Mcallister [facility] 04-14-2024 09:37-0400 Systolic blood pressure 140 mm[Hg] Vilma Mcallister [facility] 02-06-2024 10:39-0500 Blood Pressure Location Vilma Mcallister [facility] 02-06-2024 10:39-0500 Body temperature 97.52 [degF] Vilma Mcallister [facility] 02-06-2024 10:39-0500 Diastolic blood pressure 70 mm[Hg] Vilma Mcallister [facility] 02-06-2024 10:39-0500 Heart rate 67 /min Vilma Mcallister [facility] 02-06-2024 10:39-0500 Respiratory rate 18 /min Vilma Mcallister [facility] 02-06-2024 10:39-0500 SaO2% (BldA) [Mass fraction] 98 % Vilma Mcallister [facility] 02-06-2024 10:39-0500 Systolic blood pressure 130 mm[Hg] Vilma Mcallister [facility] 01-15-2024 17:18-0500 Blood Pressure Location Vilma Mcallister [facility] 01-15-2024 17:18-0500 Body temperature 97.88 [degF] Vilma Mcallister [facility] 01-15-2024 17:18-0500 Diastolic blood pressure 80 mm[Hg] Vilma Mcallister [facility] 01-15-2024 17:18-0500 Heart rate 63 /min Vilma Mcallister [facility] 01-15-2024 17:18-0500 SaO2% (BldA) [Mass fraction] 961 % Vilma Mcallister [facility] 01-15-2024 17:18-0500 Systolic blood pressure 138 mm[Hg] Vlima Mcallister [facility] 10-30-2023 09:38-0500 Blood Pressure Location Vilma Mcallister [facility] 10-30-2023 09:38-0500 Diastolic blood pressure 84 mm[Hg] Vilma Mcallister [facility] 10-30-2023 09:38-0500 Heart rate 64 /min Vilma Mcallister [facility] 10-30-2023 09:38-0500 Respiratory rate 18 /min Vilma Mcallister [facility] 10-30-2023 09:38-0500 SaO2% (BldA) [Mass fraction] 98 % Vilma Mcallister [facility] 10-30-2023 09:38-0500 Systolic blood pressure 136 mm[Hg] Vilma Mcallister [facility] 09-26-2023 09:36-0400 Blood Pressure Location Vilma Mcallister [facility] 09-26-2023 09:36-0400 Diastolic blood pressure 86 mm[Hg] Vilma Mcallister [facility] 09-26-2023 09:36-0400 Heart rate 65 /min Vilma Mcallister [facility] 09-26-2023 09:36-0400 SaO2% (BldA) [Mass fraction] 98 % Vilma Mcallister [facility] 09-26-2023 09:36-0400 Systolic blood pressure 120 mm[Hg] Vilma Mcallister [facility] 08-19-2023 11:40-0400 Diastolic blood pressure 78 mm[Hg] Camryn De La Rosa [facility] 08-19-2023 11:40-0400 Mean blood pressure 96 mm[Hg] Camryn Missler [facility] 08-19-2023 11:40-0400 Systolic blood pressure 132 mm[Hg] Camryn Missler [facility] 08-19-2023 10:58-0400 Blood Pressure Location Camrynrachel De La Rosa [facility] 08-19-2023 10:58-0400 Body temperature 97.88 [degF] Camryn Missler [facility] 08-19-2023 10:58-0400 Diastolic blood pressure 88 mm[Hg] Camryn Missler [facility] 08-19-2023 10:58-0400 Heart rate 71 /min Camrynrachel De La Rosa [facility] 08-19-2023 10:58-0400 SaO2% (BldA) [Mass fraction] 95 % Camryn Missler [facility] 08-19-2023 10:58-0400 Systolic blood pressure 160 mm[Hg] Camryn Missler [facility] 07-15-2023 11:07-0400 Diastolic blood pressure 80 mm[Hg] Camryn Tomas Missler Work Phone: [facility] 250 DO Work Phone: 07-15-2023 11:07-0400 Systolic blood pressure 170 mm[Hg] Camryn Tomas Missler Work Phone: [facility] 250 DO Work Phone: 07-15-2023 10:54-0400 Body height 154.94 cm Camryn Tomas Missler Work Phone: [facility] 250 DO Work Phone: 07-15-2023 10:54-0400 Body mass index (BMI) [Ratio] 24.22 kg/m2 Camryn Tomas Missler Work Phone: [facility] 250 DO Work Phone: 07-15-2023 10:54-0400 Body surface area Derived from formula 1.56 m2 Camryn Tomas Missler Work Phone: [facility] 250 DO Work Phone: 07-15-2023 10:54-0400 Body weight 58.15 kg Camryn Tomas Missler Work Phone: [facility] 250 DO Work Phone: 07-15-2023 10:54-0400 Diastolic blood pressure 80 mm[Hg] Camryn Tomas Missler Work Phone: [facility] 250 DO Work Phone: 07-15-2023 10:54-0400 Heart rate 60 /min Camryn Tomas Missler Work Phone: [facility] 250 DO Work Phone: 07-15-2023 10:54-0400 Systolic blood pressure 162 mm[Hg] Camryn G Missler Work Phone: [facility] 250 DO Work Phone: 12-17-2022 11:52-0500 Blood Pressure Location [facility] 12-17-2022 11:52-0500 Body temperature 96.98 [degF] [facility] 12-17-2022 11:52-0500 Diastolic blood pressure 76 mm[Hg] [facility] 12-17-2022 11:52-0500 Heart rate 66 /min [facility] 12-17-2022 11:52-0500 SaO2% (BldA) [Mass fraction] 94 % [facility] 12-17-2022 11:52-0500 Systolic blood pressure 140 mm[Hg] [facility] 09-24-2022 11:59-0400 Blood Pressure Location [facility] 09-24-2022 11:59-0400 Body temperature 98.78 [degF] [facility] 09-24-2022 11:59-0400 Diastolic blood pressure 82 mm[Hg] [facility] 09-24-2022 11:59-0400 Heart rate 63 /min [facility] 09-24-2022 11:59-0400 SaO2% (BldA) [Mass fraction] 94 % [facility] 09-24-2022 11:59-0400 Systolic blood pressure 142 mm[Hg] [facility] 09-12-2022 10:36-0400 Diastolic blood pressure 78 mm[Hg] Malinda Klonk [facility] 09-12-2022 10:36-0400 Mean blood pressure 98 mm[Hg] Malinda Klonk [facility] 09-12-2022 10:36-0400 Systolic blood pressure 138 mm[Hg] Malinda Klonk [facility] 09-12-2022 10:29-0400 Blood Pressure Location Malinda Klonk [facility] 09-12-2022 10:29-0400 Body temperature 99.32 [degF] Malinda Klonk [facility] 09-12-2022 10:29-0400 Diastolic blood pressure 80 mm[Hg] Malinda Klonk [facility] 09-12-2022 10:29-0400 Heart rate 73 /min Malinda Perdueonk [facility] 09-12-2022 10:29-0400 SaO2% (BldA) [Mass fraction] 95 % Malinda Perdueonk [facility] 09-12-2022 10:29-0400 Systolic blood pressure 142 mm[Hg] Malinda Klonk [facility] 10-11-2021 12:20-0500 Diastolic blood pressure 80 mm[Hg] Cristin Murraydon Work Phone: [facility] 250 DO Work Phone: 10-11-2021 12:20-0500 Systolic blood pressure 138 mm[Hg] Cristin Shaw Beldon Work Phone: [facility] 250 DO Work Phone: 10-11-2021 11:52-0500 Body height 154.94 cm Cristin Murraydon Work Phone: [facility] 250 DO Work Phone: 10-11-2021 11:52-0500 Body mass index (BMI) [Ratio] 23.43 kg/m2 Cristin Murraydon Work Phone: [facility] 250 DO Work Phone: 10-11-2021 11:52-0500 Body surface area Derived from formula 1.54 m2 Cristin Murraydon Work Phone: [facility] 250 DO Work Phone: 10-11-2021 11:52-0500 Body weight 56.25 kg Cristin Murraydon Work Phone: [facility] 250 DO Work Phone: 10-11-2021 11:52-0500 Diastolic blood pressure 86 mm[Hg] Cristin Murraydon Work Phone: [facility] DO Work Phone: 10-11-2021 11:52-0500 Heart rate 60 /min Cristin Roblero Work Phone: [facility] 250 DO Work Phone: 10-11-2021 11:52-0500 Systolic blood pressure 152 mm[Hg] Cristin Murraydon Work Phone: [facility] 250 DO Work Phone: Encounters Encounter Date Encounter Type Care Provider Facility Start: 08-25-2024 End: 08-25-2024 ambulatory RYLEY MARINELLI Not Available Start: 07-09-2024 End: 07-09-2024 ambulatory Vilma Mcallister Facility:[facility] Start: 07-09-2024 End: 07-09-2024 Patient encounter procedure Vilma Mcallister [facility] Start: 06-30-2024 End: 06-30-2024 ambulatory ELEONORA FREY Not Available Start: 05-26-2024 End: 05-26-2024 ambulatory Vilma Mcallister Facility:[facility] Start: 05-26-2024 End: 05-26-2024 Patient encounter procedure Vilma Mcallister [facility] Start: 05-26-2024 End: 05-26-2024 Well adult monitoring check done Vilma Mcallister [facility] Start: 05-26-2024 End: 05-26-2024 ambulatory Vilma Mcallister Facility:[facility] Start: 05-26-2024 End: 05-26-2024 Patient encounter procedure Vilma Mcallister [facility] Start: 05-18-2024 End: 05-18-2024 ambulatory RYLEY JAVI Not Available Start: 05-13-2024 End: 05-13-2024 ambulatory Vilma Mcallister Facility[place] [place] Start: 05-13-2024 End: 05-13-2024 Patient encounter procedure Vilma Mcallister [facility] Start: 05-12-2024 End: 05-12-2024 ambulatory Vilma Mcallister Facility:[facility] Start: 05-12-2024 End: 05-12-2024 Patient encounter procedure Vilma Mcallister [facility] Start: 05-06-2024 End: 05-06-2024 ambulatory DISTRIBUTION WAREHOUSE MANAGER-C SY HICKS Facility:[facility] Start: 05-06-2024 End: 05-06-2024 Patient encounter procedure SY HICKS [facility] Start: 04-14-2024 End: 04-14-2024 ambulatory Vilma Mcallister Facility:[facility] Start: 04-14-2024 End: 04-14-2024 Patient encounter procedure Vilma Mcallister [facility] Start: 03-10-2024 End: 03-10-2024 ambulatory Vilma Mcallister Facility:[facility] [place] Start: 03-10-2024 End: 03-10-2024 Patient encounter procedure Vilma Mcallister [facility] Start: 02-06-2024 End: 02-06-2024 ambulatory Vilma Mcallister Facility:[facility] Start: 02-06-2024 End: 02-06-2024 Patient encounter procedure Vilma Mcallister [facility] Start: 02-03-2024 End: 02-03-2024 ambulatory Vilma Mcallister Facility:[facility] [place] Start: 01-22-2024 End: 01-22-2024 ambulatory Vilmatisha Mcallister Facility:[facility] [place] Start: 01-22-2024 End: 01-22-2024 Patient encounter procedure Vilma Miguel Mcallister [facility] Start: 01-21-2024 End: 01-21-2024 ambulatory Vilma Miguel Mcallister Facility:[facility] [place] Start: 01-21-2024 End: 01-21-2024 Patient encounter procedure Vilma Miguel Mcallister [facility] Start: 01-15-2024 End: 01-15-2024 ambulatory Vilma Mcallister Facility:[facility] Start: 01-15-2024 End: 01-15-2024 Patient encounter procedure Vilma Mcallister [facility] Start: 11-27-2023 End: 11-27-2023 ambulatory NORMA R DOLCE Not Available Start: 11-13-2023 End: 11-13-2023 ambulatory NORMA R DOLCE Not Available Start: 11-10-2023 End: 11-10-2023 ambulatory LAWRENCE Zully STANLEYKAYLA Not Available Start: 11-04-2023 End: 11-04-2023 ambulatory Camryn Waldronreid [place]ie Facility:[facility] Start: 11-04-2023 End: 11-04-2023 ambulatory TERRAZZO POLISHER-C Camryn De La Rosa Work Phone: [facility] Work Phone: Start: 11-04-2023 End: 11-04-2023 Patient encounter procedure TERRAZZO POLISHER-C Camryn De La Rosa Work Phone: [facility] [place] Work Phone: Start: 10-30-2023 End: 10-30-2023 ambulatory Vilma Mcallister Facility:[facility] Start: 10-30-2023 End: 10-30-2023 Patient encounter procedure Vilma Mcallister [facility] Start: 10-18-2023 End: 10-18-2023 ambulatory Vilma Mcallister Facility:[facility] [place] Start: 10-18-2023 End: 10-18-2023 Patient encounter procedure Vilma Mcallister [facility] Start: 09-26-2023 End: 09-26-2023 ambulatory Vilma Mcallister Facility:[facility] Start: 09-26-2023 End: 09-26-2023 Patient encounter procedure Vilma Mcallister [facility] Start: 09-26-2023 End: 09-26-2023 Well adult monitoring check done Vilma Mcallister [facility] Start: 09-22-2023 End: 09-22-2023 ambulatory DISTRIBUTION WAREHOUSE MANAGER-C Camrynrachel De La Rosa Facility:[facility] Start: 09-04-2023 End: 09-04-2023 ambulatory Vilma Mcallister Facility:[facility] Start: 08-27-2023 End: 08-27-2023 ambulatory DISTRIBUTION WAREHOUSE MANAGER-C Camrynrachel De La Rosa Facility:[facility] [place] Start: 08-19-2023 End: 08-19-2023 ambulatory DISTRIBUTION WAREHOUSE MANAGER-C Camryn De La Rosa Facility:[facility] Start: 08-19-2023 End: 08-19-2023 Patient encounter procedure Camryn De La Rosa [facility] Start: 08-19-2023 End: 08-19-2023 Well adult monitoring check done Camryn De La Rosa [facility] Start: 08-14-2023 ambulatory Scott V. Spasic Fa cility:[facility] [place] Start: 07-16-2023 Chart Update Camryn Marin Miss marcial Work Phone: [facility] 250 DO Work Phone: Start: 07-15-2023 ambulatory Ms. Camryn De La Rosa Facility: Start: 07-15-2023 Office outpatient vi sit 25 minutes Camryn Tomas De La Rosa Work Phone: [facility] 250 DO Work Phone: Start: 07-14-2023 End: 07-14-2023 ambulatory Camryn De La Rosa Facility:[facility] Start: 07-14-2023 End: 07-14-2023 ambulatory TERRAZZO POLISHER-C Camryn De La Rosa Work Phone: [facility] Work Phone: Start: 07-14-2023 End: 07-14-2023 Patient encounter procedure TERRAZZO POLISHER-C Camryn De La Rosa Work Phone: [facility] [place] Work Phone: Start: 04-01-2023 End: 04-01-[address] DANNY SANTILLAN . Facility:[facility] Start: 03-05-2023 End: 03-06-[address] DANNY SANTILLAN . Facility:[facility] Start: 02-12-2023 Rx Renewal Cristin Roblero Work Phone: [facility] 250 DO Work Phone: Start: 01-28-2023 End: 01-28-2023 Patient encounter procedure Cory JOSHUA [facility] [place] Start: 01-21-2023 End: 01-21-2023 Patient encounter procedure Cory JOSHUA [facility] Start: 2023 End: 2023 Patient encounter procedure Malinda Rubio [facility] Start: 12-17-2022 End: 12-17-2022 Patient encounter procedure Malinda Rubio [facility] [place] Start: 12-06-2022 End: 12-07-[address] DANNY SANTILLAN . Facility:[facility] Start: 09-24-2022 End: 09-24-2022 Patient encounter procedure Malinda Rubio [facility] Start: 09-17-2022 End: 09-17-2022 Off-Site Malinda Rubio [facility] Start: 09-12-2022 End: 09-12-2022 Patient encounter procedure Malinda Rubio [facility] Start: 09-07-2022 End: 09-07-2022 Patient encounter procedure Malinda Rubio [facility] Start: 07-12-2022 Chart Update Cristin Roblero Work Phone: [facility] 600 DO Work Phone: Start: 07-12-2022 End: 07-12-2022 Patient encounter procedure Goyal Mariscal [facility] Start: 04-15-2022 End: 04-15-[address] DANNY SANTILLAN . Facility: Start: 10-11-2021 Office outpatient vi sit 25 minutes Cristin Roblero Work Phone: [facility] [address] [place] Work Phone: Start: 10-11-2021 Patient encounter procedure Cristin Roblero Work Phone: [facility] 250 DO Work Phone: Start: 04-09-2021 End: 04-09-2021 Subsequent hospital visit by physician Dandy [facility] Comment on above: Bilateral hand pain [M79.641, M79.642] Start: 09-08-2017 Ambulatory CRIS VALENZUELA Facility:1 [id number] Procedures Date Procedure Procedure Detail Performing Clinician Start: 11-04-2023 MRI of bilateral garrison asts with contrast ANIKA De La Rosa Work Phone: Start: 04-09-2021 Radex hand minimum 3 views Nico Newell MD Work Phone: Start: 02-02-2021 Biopsy of breast Jay Jay Mariscal Comment on above: sentinel node Start: 02-02-2021 Lumpectomy of right breast Jay Jay Rodriguezim Start: 01-12-2021 Ultrasonography guid ed biopsy of right breast Jay Jay Mariscal Start: 12-01-2014 Total colonoscopy Cristin Roblero Work Phone: Biopsy of breast Cristin Coon on Work Phone: Cardiac catheterization Cristin Roblero Work Phone: Comment on above: 2019 40% LAD; Dilation and curettage Margarito Mrain Rj Work Phone: Dilation and curettage Margarito coats Rj Ligation of fallopian tube S nhi Roblero Work Phone: Ligation of fallopian tube H kaia Marsical Lumpectomy of breast Cristin Squires Terrijermaine Work Phone: Comment on above: left; Tonsillectomy Cristin Roblero Work Phone: Tonsillectomy Jay Jay Mariscal Ultrasonography guid ed biopsy of right breast Cory JOSHUA Plan of Treatment Date Care Activity Detail Author Start: 05-25-2025 ambulatory Ambulatory Facility:[facility] Start: 10-06-2024 ambulatory Ambulatory Facility:[facility] Start: 07-14-2024 FUV, Provider: Jay Jay Mariscal, Status: Pen, Time: 11:00 AM FUV, Provider: Jay Jay Mariscal, Status: Pen, Time: 11:00 AM [facility] 250 DO Work Phone: Start: 08-01-2023 Influenza vaccination INFLUENZA (#1) [facility] Start: 07-29-2023 NURSEVST, Provider: JANETT ALLAN VIDEO CONFERENCE SPECIALIST 1,[id number], Status: Pen, Time: 11:00 AM NURSEVST, Provider: JANETT ALLAN VIDEO CONFERENCE SPECIALIST 1,[id number], Status: Pen, Time: 11:00 AM [facility] 250 DO Work Phone: Start: 07-15-2023 FUV, Provider: Jay Jay Mariscal, Status: Pen, Time: 10:30 AM FUV, Provider: Jay Jay Mariscal, Status: Pen, Time: 10:30 AM [facility] 250 DO Work Phone: Start: 12-01-2022 ADVANCE DIRECTIVE DISCUSSION ADVANCE DIRECTIVE DISCUSSION [facility] Start: 12-01-2022 DEPRESSION ASSESSMENT DEPRESSION ASSESSMENT [facility] Start: 07-16-2022 FUV, Provider: Jay Jay Mariscal, Status: Pen, Time: 11:00 AM FUV, Provider: Jay Jay Mariscal, Status: Pen, Time: 11:00 AM [facility] 250 DO Work Phone: Start: 2015 BONE DENSITY BONE DENSITY [facility] Start: 2015 PNEUMOCOCCAL: 65+ (1 - PCV) PNEUMOCOCCAL: 65+ (1 - PCV) [facility] Start: 2000 SHINGRIX VACCINE (1 of 2) SHINGRIX VACCINE (1 of 2) [facility] Start: 1995 COLOGUARD (FIT-DNA) COLOGUARD (FIT-DNA) [facility] Start: 1995 Colonoscopy COLONOSCOPY [facility] Start: 1995 COLORECTAL CANCER SCREENING COLORECTAL CANCER SCREENING [facility] Start: [address] COLONOGRAPHY [facility] Start: 1995 DIABETES SCREEN DIABETES SCREEN [facility] Start: 1995 FECAL OCCULT BLOOD FECAL OCCULT BLOOD [facility] Start: 1995 LIPID SCREEN LIPID SCREEN [facility] Start: 1995 SIGMOIDOSCOPY SIGMOIDOSCOPY [facility] Start: 1990 Mammography MAMMOGRAM [facility] Start: 1969 Urine microalbumin profile DTAP,TDAP,TD (1 - Tdap) [facility] Start: 1968 HEPATITIS C SCREENING HEPATITIS C SCREENING [facility] Start: 1950 COVID-19 VACCINE (#1) COVID-19 VACCINE (#1) [facility] Immunizations Immunization Date Immunization Notes Care Provider Fa cilimarsha 01-31-2020 pneumococcal conjuga te vaccine, 13 valent Cristin Roblero Work Phone: [facility] 250 DO Work Phone: 09-25-2019 pneumococcal conjuga te vaccine, 13 valent Goyal Mariscal [facility] 09-20-2019 pneumococcal conjuga te vaccine, 13 valent Cristin Roblero Work Phone: [facility] 600 DO Work Phone: 12-01-2018 pneumococcal polysaccharide vaccine, 23 valent Cristin Roblero Work Phone: [facility] 08-31-2015 influenza virus vaccine, unspecified formulation Cristin Roblero Work Phone: [facility] 600 DO Work Phone: 04-02-2013 influenza virus vaccine, unspecified formulation Goyal Mariscal [facility] 05-22-2010 tetanus toxoid, redu latrell diphtheria toxoid, and acellular pertussis vaccine, adsorbed Goyal Mariscal [facility] NEGATED: Highlighted row has not occurred!09-26-2023 influenza virus vaccine, unspecified formulation Vilma Mcallister [facility] NEGATED: Highlighted row has not occurred!08-19-2023 influenza virus vaccine, unspecified formulation Camryn De La Rosa [facility] NEGATED: Highlighted row has not occurred!09-12-2022 influenza virus vaccine, unspecified formulation Malinda Rubio [facility] NEGATED: Highlighted row has not occurred!02-07-2020 influenza virus vaccine, live, attenuated, for intranasal use Jay Jay Mariscal [facility] Payers Date Payer Category Payer Self-pay [id number] 2021 Unknown [id number] 2017 Private Health Insurance [employer]ET[employer] A ETNA MEDICARE SUPPLEMENT [id number] 2017-Present [phone] [address] [address] [place] [address] Indemnity [id number] 2014 Medicare MEDICARE MEDICAR E A AND B [id number] 2014-Present [phone] [address] [address] [place] [address] Medicare [id number] 1959 Unknown [id number] 1950 Unknown [id number] 2.16.840.1.872577.3.579. 2.593 1950 Unknown [id number] 2.16.840.1.573890.3.579. 2.593 1950 Unknown [id number] 2.16.840.1.876355.3.579. 2.593 1950 Unknown [id number] 2.16.840.1.020777.3.579. 2.593 1950 Unknown [id number] 2.16.840.1.120099.3.579. 2.356 1950 Unknown [id number] 2.16.840.1.899342.3.579. 2. 1950 Unknown [id number] 2.16.840.1.183905.3.579. 2 1950 Unknown [id number] 2.16.840.1.653151.3.579. 2 1950 Unknown [id number] 2.16.840.1.662251.3.579. 2 1950 Unknown [id number] 2.16.840.1.966219.3.579. 2 1950 Unknown [id number] 2.16.840.1.091890.3.579. 1950 Unknown [id number] 2.16.840.1.079380.3.579. 1950 Unknown [id number] 2.16.840.1.371349.3.579. 1950 Unknown [id number] 2.16.840.1.121351.3.579. 1950 Unknown [id number] 2.16.840.1.233045.3.579. 2 1950 Unknown [id number] 2.16.840.1.034179.3.579. 2 1950 Unknown [id number] 2.16.840.1.338450.3.579. 2 1950 Unknown [id number] 2.16.840.1.628317.3.579. 2 1950 Unknown [id number] 2.16.840.1.472641.3.579. 2 1950 Unknown [id number] 2.16.840.1.786365.3.579. 2 1950 Unknown [id number] 2.16.840.1.921329.3.579. 1950 Unknown [id number] 2.16.840.1.210375.3.579. 2.727 1950 Unknown [id number] 2.16.840.1.860421.3.579. 2. 1950 Unknown [id number] 2.16.840.1.346909.3.579. 2. 1950 Unknown [id number] 2.16.840.1.362919.3.579. 2. 1950 Unknown [id number] 2.16.840.1.146578.3.579. 2. 1950 Unknown [id number] 2.16.840.1.002599.3.579. 2. 1950 Unknown [id number] 2.16.840.1.947256.3.579. 2. 1950 Unknown [id number] 2.16.840.1.798334.3.579. 2. 1950 Unknown [id number] 2.16.840.1.676668.3.579. 2.1258 1950 Unknown [id number] 2.16.840.1.350165.3.579. 2.1258 1950 Unknown [id number] 2.16.840.1.625952.3.579. 2.1258 1950 Unknown [id number] 2.16.840.1.635849.3.579. 2.1258 1950 Unknown [id number] 2.16.840.1.387493.3.579. 2.1258 1950 Unknown [id number] 2.16.840.1.336791.3.579. 2.1259 Medicare Medicare [id number] Private Health Insurance [employer] [id number] Unknown Unknown [employer] [id number] Unknown [id number] 2.16.840.1.610977.3.579. 2.531 Unknown [id number] 2.16.840.1.880244.3.579. 2.531 Social History Date Type Detail Facility Start: 11-08-2020 End: 04-09-2021 Caffeine use Caffeine use [facility] 250 DO Work Phone: Comment on above: 2 cups of coffee abdirahman ly; occasional; 1 cup of coffee beto y; Start: 01-25-2022 End: 07-09-2024 Tobacco smoking status Never smoked tobacco (finding) [facility] Tobacco smoking status Never [facility] Start: 11-08-2020 End: 04-09-2021 Sex Assigned At Female [facility] Start: 04-09-2021 Tobacco use and exposure Smokeless tobacco non-user [facility] Start: 1950 Sex Assigned At Not on file C [facility] Start: 03-10-2021 End: 04-09-2021 Exposure to SARS-CoV-2 (event) Not sure [facility] Start: 1950 Sex Assigned At Female F [facility] Functional Status Date Assessment Result Facility 07-09-2024 Functional Status N/A [facility] 05-26-2024 Functional Status N/A [facility] 05-12-2024 Functional Status N/A [facility] 05-06-2024 Functional Status N/A [facility] [place] 04-14-2024 Functional Status N/A [facility] 02-06-2024 Functional Status N/A [facility] 01-15-2024 Functional Status N/A [facility] 10-30-2023 Functional Status N/A [facility] 09-26-2023 Functional Status N/A [facility] 08-19-2023 Functional Status N/A [facility] 12-17-2022 Functional Status N/A [facility] 09-24-2022 Functional Status N/A [facility] 09-17-2022 Functional Status Telehealth Patient Pablo [facility] 09-12-2022 Functional Status N/A [facility] Clinical Notes 04-09-2021 to 05-26-2024 LaboratoryRadiologyLaboratoryRadiologyLaboratoryLaboratoryLaboratoryLaboratoryRa diologyLaboratoryRadiologyLaboratoryLaboratoryLaboratoryLaboratoryLaboratoryLabo ratory Note Date & Type Note Facility 05-26-2024 Hospital Discharge instructions Patient Education 05/26/2024 15:45:21 Fat and Cholesterol Restricted Eating Plan Fat and Cholesterol Restricted Eating Plan Eating a diet that limits fat and cholesterol may help lower your risk for heart disease and other conditions. Your body needs fat and cholesterol for basic functions, but eating too much of these things can be harmful to your health. Your health care provider may order lab tests to check your blood fat (lipid) and cholesterol levels. This helps your health care provider understand your risk for certain conditions and whether you need to make diet changes. Work with your health care provider or dietitian to make an eating plan that is right for you. Your plan includes: Limit your fat intake to % or less of your total calories a day. This is g of fat per day. Limit your saturated fat intake to % or less of your total calories a day. This is g of saturated fat per day. Limit the amount of cholesterol in your diet to less than mg a day. Eat g of fiber a day. What are tips for following this plan? General guidelines If you are overweight, work with your health care provider to lose weight safely. Losing just 5 10% of your body weight can improve your overall health and help prevent diseases such as diabetes and heart disease. Avoid: ?Foods with added sugar. ?Fried foods. ?Foods that contain partially hydrogenated oils, including stick margarine, some tub margarines, cookies, crackers, and other baked goods. If you drink alcohol: ?Limit how much you have to: ?0 1 drink a day for women who are not . ? 0 2 drinks a day for men. ?Know how much alcohol is in a drink. In the [place] one drink equals one 12 oz bottle of beer (355 mL), one 5 oz glass of wine (148 mL), or one 1 oz glass of hard liquor (44 mL). Reading food labels Check food labels for: ?Trans fats or partially hydrogenated oils. Avoid foods that contain these. ?High amounts of saturated fat. Choose foods that are low in saturated fat (less than 2 g). ?The amount of cholesterol in each serving. ?The amount of fiber in each serving. Choose foods with healthy fats, such as: ?Monounsaturated and polyunsaturated fats. These include olive and canola oil, flaxseeds, walnuts, almonds, and seeds. ?Superior-3 fats. These are found in foods such as salmon, mackerel, sardines, tuna, flaxseed oil, and ground flaxseeds. Choose grain products that have whole grains. Look for the word whole as the first word in the ingredient list. Cooking Cook foods using methods other than frying. Baking, boiling, grilling, and broiling are some healthy options. Eat more home-cooked food and less restaurant, buffet, and fast food. Avoid cooking using saturated fats. ?Animal sources of saturated fats include meats, butter, and cream. ?Plant sources of saturated fats include palm oil, palm kernel oil, and coconut oil. Meal planning At meals, imagine dividing your plate into fourths: ?Fill one-half of your plate with vegetables, green salads, and fruit. ?Fill one-fourth of your plate with whole grains. ?Fill one-fourth of your plate with lean protein foods. Eat fish that is high in omega-3 fats at least two times a week. Eat more foods that contain fiber, such as whole grains, beans, apples, pears, berries, broccoli, carrots, peas, and barley. These foods help promote healthy cholesterol levels in the blood. What foods should I eat? Fruits All fresh, canned (in natural juice), or frozen fruits. Vegetables Fresh or frozen vegetables (raw, steamed, roasted, or grilled). Green salads. Grains Whole grains, such as whole wheat or whole grain breads, crackers, cereals, and pasta. Unsweetened oatmeal, bulgur, barley, quinoa, or brown rice. [place] or whole wheat flour tortillas. Meats and other proteins Ground beef (85% or leaner), grass-fed beef, or beef trimmed of fat. Skinless chicken or turkey. Ground chicken or turkey. Pork trimmed of fat. All fish and seafood. Egg whites. Dried beans, peas, or lentils. Unsalted nuts or seeds. Unsalted canned beans. Natural nut butters without added sugar and oil. Dairy Low-fat or nonfat dairy products, such as skim or 1% milk, 2% or reduced-fat cheeses, low-fat and fat-free ricotta or cottage cheese, or plain low-fat and nonfat yogurt. Fats and oils Tub margarine without trans fats. Light or reduced-fat mayonnaise and salad dressings. Avocado. [place], canola, sesame, or safflower oils. The items listed above may not be a complete list of foods and beverages you can eat. Contact a dietitian for more information. What foods should I avoid? Fruits Canned fruit in heavy syrup. Fruit in cream or butter sauce. Fried fruit. Vegetables Vegetables cooked in cheese, cream, or butter sauce. Fried vegetables. Grains White bread. White pasta. White rice. Cornbread. Bagels, pastries, and croissants. Crackers and snack foods that contain trans fat and hydrogenated oils. Meats and other proteins Fatty cuts of meat. Ribs, chicken wings, torres, sausage, bologna, salami, chitterlings, fatback, hot dogs, bratwurst, and packaged lunch meats. Liver and organ meats. Whole eggs and egg yolks. Chicken and turkey with skin. Fried meat. Dairy Whole or 2% milk, cream, [id number], and cream cheese. Whole milk cheeses. Whole-fat or sweetened yogurt. Full-fat cheeses. Nondairy creamers and whipped toppings. Processed cheese, cheese spreads, and cheese curds. Fats and oils Butter, stick margarine, lard, shortening, ghee, or torres fat. Coconut, palm kernel, and palm oils. Beverages Alcohol. Sugar-sweetened drinks such as sodas, lemonade, and fruit drinks. Sweets and desserts [place] syrup, sugars, honey, and molasses. Candy. Jam and jelly. Syrup. Sweetened cereals. Cookies, pies, cakes, donuts, muffins, and ice cream. The items listed above may not be a complete list of foods and beverages you should avoid. Contact a dietitian for more information. Summary Your body needs fat and cholesterol for basic functions. However, eating too much of these things can be harmful to your health. Work with your health care provider and dietitian to follow a diet that limits fat and cholesterol. Doing this may help lower your risk for heart disease and other conditions. Choose healthy fats, such as monounsaturated and polyunsaturated fats, and foods high in omega-3 fatty acids. Eat fiber-rich foods, such as whole grains, beans, peas, fruits, and vegetables. Limit or avoid alcohol, fried foods, and foods high in saturated fats, partially hydrogenated oils, and sugar. This information is not intended to replace advice given to you by your health care provider. Make sure you discuss any questions you have with your health care provider. Document Revised: 03/29/2022 Document Reviewed: 03/29/2022 [employer] Patient Education 2022 HDmessaging. 05/26/2024 15:45:13 Hypertension, Adult, Mjvf-ee-Feiz Hypertension, Adult Hypertension is another name for high blood pressure. High blood pressure forces your heart to work harder to pump blood. This can cause problems over time. There are two numbers in a blood pressure reading. There is a top number (systolic) over a bottom number (diastolic). It is best to have a blood pressure that is below 120/80. What are the causes? The cause of this condition is not known. Some other conditions can lead to high blood pressure. What increases the risk? Some lifestyle factors can make you more likely to develop high blood pressure: Smoking. Not getting enough exercise or physical activity. Being overweight. Having too much fat, sugar, calories, or salt (sodium) in your diet. Drinking too much alcohol. Other risk factors include: Having any of these conditions: ?Heart disease. ?Diabetes. ? High cholesterol. ?Kidney disease. ?Obstructive sleep apnea. Having a family history of high blood pressure and high cholesterol. Age. The risk increases with age. Stress. What are the signs or symptoms? High blood pressure may not cause symptoms. Very high blood pressure (hypertensive crisis) may cause: Headache. Fast or uneven heartbeats (palpitations). Shortness of breath. Nosebleed. Vomiting or feeling like you may vomit (nauseous). Changes in how you see. Very bad chest pain. Feeling dizzy. Seizures. How is this treated? This condition is treated by making healthy lifestyle changes, such as: ?Eating healthy foods. ?Exercising more. ?Drinking less alcohol. Your doctor may prescribe medicine if lifestyle changes do not help enough and if: ?Your top number is above 130. ?Your bottom number is above 80. Your personal target blood pressure may vary. Follow these instructions at home: Eating and drinking If told, follow the DASH eating plan. To follow this plan: ?Fill one half of your plate at each meal with fruits and vegetables. ?Fill one fourth of your plate at each meal with whole grains. Whole grains include whole-wheat pasta, brown rice, and whole-grain bread. ?Eat or drink low-fat dairy products, such as skim milk or low-fat yogurt. ?Fill one fourth of your plate at each meal with low-fat (lean) proteins. Low-fat proteins include fish, chicken without skin, eggs, beans, and tofu. ?Avoid fatty meat, cured and processed meat, or chicken with skin. ?Avoid pre-made or processed food. Limit the amount of salt in your diet to less than 1,500 mg each day. Do not drink alcohol if: ?Your doctor tells you not to drink. ?You are , may be , or are planning to become . If you drink alcohol: ?Limit how much you have to: ?0 1 drink a day for women. ?0 2 drinks a day for men. ?Know how much alcohol is in your drink. In the [place] one drink equals one 12 oz bottle of beer (355 mL), one 5 oz glass of wine (148 mL), or one 1 oz glass of hard liquor (44 mL). Lifestyle Work with your doctor to stay at a healthy weight or to lose weight. Ask your doctor what the best weight is for you. Get at least 30 minutes of exercise that causes your heart to beat faster (aerobic exercise) most days of the week. This may include walking, swimming, or biking. Get at least 30 minutes of exercise that strengthens your muscles (resistance exercise) at least 3 days a week. This may include lifting weights or doing Pilates. Do not smoke or use any products that contain nicotine or tobacco. If you need help quitting, ask your doctor. Check your blood pressure at home as told by your doctor. Keep all follow-up visits. Medicines Take qtdw-qfm-yohtqts and prescription medicines only as told by your doctor. Follow directions carefully. Do not skip doses of blood pressure medicine. The medicine does not work as well if you skip doses. Skipping doses also puts you at risk for problems. Ask your doctor about side effects or reactions to medicines that you should watch for. Contact a doctor if: You think you are having a reaction to the medicine you are taking. You have headaches that keep coming back. You feel dizzy. You have swelling in your ankles. You have trouble with your vision. Get help right away if: You get a very bad headache. You start to feel mixed up (confused). You feel weak or numb. You feel faint. You have very bad pain in your: ?Chest. ?Belly (abdomen). You vomit more than once. You have trouble breathing. These symptoms may be an emergency. Get help right away. Call 911. Do not wait to see if the symptoms will go away. Do not drive yourself to the hospital. Summary Hypertension is another name for high blood pressure. High blood pressure forces your heart to work harder to pump blood. For most people, a normal blood pressure is less than 120/80. Making healthy choices can help lower blood pressure. If your blood pressure does not get lower with healthy choices, you may need to take medicine. This information is not intended to replace advice given to you by your health care provider. Make sure you discuss any questions you have with your health care provider. Document Revised: 09/05/2022 Document Reviewed: 09/05/2022 [employer] Patient Education 2022 HDmessaging. 05/26/2024 15:45:09 DASH Eating Plan DASH Eating Plan DASH stands for Dietary Approaches to Stop Hypertension. The DASH eating plan is a healthy eating plan that has been shown to: Reduce high blood pressure (hypertension). Reduce your risk for type 2 diabetes, heart disease, and stroke. Help with weight loss. What are tips for following this plan? Reading food labels Check food labels for the amount of salt (sodium) per serving. Choose foods with less than 5 percent of the Daily Value of sodium. Generally, foods with less than 300 milligrams (mg) of sodium per serving fit into this eating plan. To find whole grains, look for the word whole as the first word in the ingredient list. Shopping Buy products labeled as low-sodium or no salt added. Buy fresh foods. Avoid canned foods and pre-made or frozen meals. Cooking Avoid adding salt when cooking. Use salt-free seasonings or herbs instead of table salt or sea salt. Check with your health care provider or pharmacist before using salt substitutes. Do not spears foods. Cook foods using healthy methods such as baking, boiling, grilling, roasting, and broiling instead. Cook with heart-healthy oils, such as olive, canola, avocado, soybean, or sunflower oil. Meal planning Eat a balanced diet that includes: ?4 or more servings of fruits and 4 or more servings of vegetables each day. Try to fill one-half of your plate with fruits and vegetables. ?6 8 servings of whole grains each day. ?Less than 6 oz (170 g) of lean meat, poultry, or fish each day. A 3-oz (85-g) serving of meat is about the same size as a deck of cards. One egg equals 1 oz (28 g). ?2 3 servings of low-fat dairy each day. One serving is 1 cup (237 mL). ?1 serving of nuts, seeds, or beans 5 times each week. ?2 3 servings of heart-healthy fats. Healthy fats called omega-3 fatty acids are found in foods such as walnuts, flaxseeds, fortified milks, and eggs. These fats are also found in cold-water fish, such as sardines, salmon, and mackerel. Limit how much you eat of: ?Canned or prepackaged foods. ?Food that is high in trans fat, such as some fried foods. ?Food that is high in saturated fat, such as fatty meat. ?Desserts and other sweets, sugary drinks, and other foods with added sugar. ?Full-fat dairy products. Do not salt foods before eating. Do not eat more than 4 egg yolks a week. Try to eat at least 2 vegetarian meals a week. Eat more home-cooked food and less restaurant, buffet, and fast food. Lifestyle When eating at a restaurant, ask that your food be prepared with less salt or no salt, if possible. If you drink alcohol: ?Limit how much you use to: ?0 1 drink a day for women who are not . ?0 2 drinks a day for men. ?Be aware of how much alcohol is in your drink. In the [place] one drink equals one 12 oz bottle of beer (355 mL), one 5 oz glass of wine (148 mL), or one 1 oz glass of hard liquor (44 mL). General information Avoid eating more than 2,300 mg of salt a day. If you have hypertension, you may need to reduce your sodium intake to 1,500 mg a day. Work with your health care provider to maintain a healthy body weight or to lose weight. Ask what an ideal weight is for you. Get at least 30 minutes of exercise that causes your heart to beat faster (aerobic exercise) most days of the week. Activities may include walking, swimming, or biking. Work with your health care provider or dietitian to adjust your eating plan to your individual calorie needs. What foods should I eat? Fruits All fresh, dried, or frozen fruit. Canned fruit in natural juice (without added sugar). Vegetables Fresh or frozen vegetables (raw, steamed, roasted, or grilled). Low-sodium or reduced-sodium tomato and vegetable juice. Low-sodium or reduced-sodium tomato sauce and tomato paste. Low-sodium or reduced-sodium canned vegetables. Grains Whole-grain or whole-wheat bread. Whole-grain or whole-wheat pasta. Brown rice. Oatmeal. Quinoa. Bulgur. Whole-grain and low-sodium cereals. Dian bread. Low-fat, low-sodium crackers. Whole-wheat flour tortillas. Meats and other proteins Skinless chicken or turkey. Ground chicken or turkey. Pork with fat trimmed off. Fish and seafood. Egg whites. Dried beans, peas, or lentils. Unsalted nuts, nut butters, and seeds. Unsalted canned beans. Lean cuts of beef with fat trimmed off. Low-sodium, lean precooked or cured meat, such as sausages or meat loaves. Dairy Low-fat (1%) or fat-free (skim) milk. Reduced-fat, low-fat, or fat-free cheeses. Nonfat, low-sodium ricotta or cottage cheese. Low-fat or nonfat yogurt. Low-fat, low-sodium cheese. Fats and oils Soft margarine without trans fats. Vegetable oil. Reduced-fat, low-fat, or light mayonnaise and salad dressings (reduced-sodium). Canola, safflower, olive, avocado, soybean, and sunflower oils. Avocado. Seasonings and condiments Herbs. Spices. Seasoning mixes without salt. Other foods Unsalted popcorn and pretzels. Fat-free sweets. The items listed above may not be a complete list of foods and beverages you can eat. Contact a dietitian for more information. What foods should I avoid? Fruits Canned fruit in a light or heavy syrup. Fried fruit. Fruit in cream or butter sauce. Vegetables Creamed or fried vegetables. Vegetables in a cheese sauce. Regular canned vegetables (not low-sodium or reduced-sodium). Regular canned tomato sauce and paste (not low-sodium or reduced-sodium). Regular tomato and vegetable juice (not low-sodium or reduced-sodium). Pickles. Olives. Grains Baked goods made with fat, such as croissants, muffins, or some breads. Dry pasta or rice meal packs. Meats and other proteins Fatty cuts of meat. Ribs. Fried meat. [place]. Bologna, salami, and other precooked or cured meats, such as sausages or meat loaves. Fat from the back of a pig (fatback). Bratwurst. Salted nuts and seeds. Canned beans with added salt. Canned or smoked fish. Whole eggs or egg yolks. Chicken or turkey with skin. Dairy Whole or 2% milk, cream, and [id number]-atoo. Whole or full-fat cream cheese. Whole-fat or sweetened yogurt. Full-fat cheese. Nondairy creamers. Whipped toppings. Processed cheese and cheese spreads. Fats and oils Butter. Stick margarine. Lard. Shortening. Ghee. [place] fat. Tropical oils, such as coconut, palm kernel, or palm oil. Seasonings and condiments Onion salt, garlic salt, seasoned salt, table salt, and sea salt. Worcestershire sauce. Tartar sauce. Barbecue sauce. Teriyaki sauce. Soy sauce, including reduced-sodium. Steak sauce. Canned and packaged gravies. Fish sauce. Oyster sauce. Cocktail sauce. Store-bought horseradish. Ketchup. Mustard. Meat flavorings and tenderizers. Bouillon cubes. Hot sauces. Pre-made or packaged marinades. Pre-made or packaged taco seasonings. Relishes. Regular salad dressings. Other foods Salted popcorn and pretzels. The items listed above may not be a complete list of foods and beverages you should avoid. Contact a dietitian for more information. Where to find more information National Heart, Lung, and Blood [place]: www.nhlbi.nih.gov [place] [employer] Association: www.heart.org Academy of Nutrition and Dietetics: www.eatright.org National Kidney Foundation: www.kidney.org Summary The DASH eating plan is a healthy eating plan that has been shown to reduce high blood pressure (hypertension). It may also reduce your risk for type 2 diabetes, heart disease, and stroke. When on the DASH eating plan, aim to eat more fresh fruits and vegetables, whole grains, lean proteins, low-fat dairy, and heart-healthy fats. With the DASH eating plan, you should limit salt (sodium) intake to 2,300 mg a day. If you have hypertension, you may need to reduce your sodium intake to 1,500 mg a day. Work with your health care provider or dietitian to adjust your eating plan to your individual calorie needs. This information is not intended to replace advice given to you by your health care provider. Make sure you discuss any questions you have with your health care provider. Document Revised: 10/20/2020 Document Reviewed: 10/20/2020 Elsevier Patient Education 2022 HDmessaging. 05/26/2024 15:45:06 Major Depressive Disorder, Adult Major Depressive Disorder, Adult Major depressive disorder (MDD) is a mental health condition. It may also be called clinical depression or unipolar depression. MDD causes symptoms of sadness, hopelessness, and loss of interest in things. These symptoms last most of the day, almost every day, for 2 weeks. MDD can also cause physical symptoms. It can interfere with relationships and with everyday activities, such as work, school, and activities that are usually pleasant. MDD may be mild, moderate, or severe. It may be single-episode MDD, which happens once, or recurrent MDD, which may occur multiple times. What are the causes? The exact cause of this condition is not known. MDD is most likely caused by a combination of things, which may include: Your personality traits. [place] or conditioned behaviors or thoughts or feelings that reinforce negativity. Any alcohol or substance misuse. Long-term (chronic) physical or mental health illness. Going through a traumatic experience or major life changes. What increases the risk? The following factors may make someone more likely to develop MDD: A family history of depression. Being a woman. Troubled family relationships. Abnormally low levels of certain brain chemicals. Traumatic or painful events in childhood, especially abuse or loss of a parent. A lot of stress from life experiences, such as poor living conditions or discrimination. Chronic physical illness or other mental health disorders. What are the signs or symptoms? The main symptoms of MDD usually include: Constant depressed or irritable mood. A loss of interest in things and activities. Other symptoms include: Sleeping or eating too much or too little. Unexplained weight gain or weight loss. Tiredness or low energy. Being agitated, restless, or weak. Feeling hopeless, worthless, or guilty. Trouble thinking clearly or making decisions. Thoughts of suicide or thoughts of harming others. Isolating oneself or avoiding other people or activities. Trouble completing tasks, work, or any normal obligations. Severe symptoms of this condition may include: Psychotic depression.This may include false beliefs, or delusions. It may also include seeing, hearing, tasting, smelling, or feeling things that are not real (hallucinations). Chronic depression or persistent depressive disorder. This is low-level depression that lasts for at least 2 years. Melancholic depression, or feeling extremely sad and hopeless. Catatonic depression, which includes trouble speaking and trouble moving. How is this diagnosed? This condition may be diagnosed based on: Your symptoms. Your medical and mental health history. You may be asked questions about your lifestyle, including any drug and alcohol use. A physical exam. Blood tests to rule out other conditions. MDD is confirmed if you have the following symptoms most of the day, nearly every day, in a 2-week period: Either a depressed mood or loss of interest. At least four other MDD symptoms. How is this treated? This condition is usually treated by mental health professionals, such as psychologists, psychiatrists, and clinical social workers. You may need more than one type of treatment. Treatment may include: Psychotherapy, also called talk therapy or counseling. Types of psychotherapy include: ?Cognitive behavioral therapy (CBT). This teaches you to recognize unhealthy feelings, thoughts, and behaviors, and replace them with positive thoughts and actions. ?Interpersonal therapy (IPT). This helps you to improve the way you communicate with others or relate to them. ?Family therapy. This treatment includes members of your family. Medicines to treat anxiety and depression. These medicines help to balance the brain chemicals that affect your emotions. Lifestyle changes. You may be asked to: ?Limit alcohol use and avoid drug use. ?Get regular exercise. ?Get plenty of sleep. ?Make healthy eating choices. ?Spend more time outdoors. Brain stimulation. This may be done if symptoms are very severe and other treatments have not worked. Examples of this treatment are electroconvulsive therapy and transcranial magnetic stimulation. Follow these instructions at home: Activity Exercise regularly and spend time outdoors. Find activities that you enjoy doing, and make time to do them. Find healthy ways to manage stress, such as: ?Meditation or deep breathing. ?Spending time in nature. ?Journaling. Return to your normal activities as told by your health care provider. Ask your health care provider what activities are safe for you. Alcohol and drug use If you drink alcohol: ?Limit how much you use to: ?0 1 drink a day for women who are not . ?0 2 drinks a day for men. ?Be aware of how much alcohol is in your drink. In the [place] one drink equals one 12 oz bottle of beer (355 mL), one 5 oz glass of wine (148 mL), or one 1 oz glass of hard liquor (44 mL). ?Discuss your alcohol use with your health care provider. Alcohol can affect any antidepressant medicines you are taking. Discuss any drug use with your health care provider. General instructions Take gexm-kgz-miffgio and prescription medicines only as told by your health care provider. Eat a healthy diet and get plenty of sleep. Consider joining a support group. Your health care provider may be able to recommend one. Keep all follow-up visits as told by your health care provider. This is important. Where to find more information National [place] on Mental Illness: www.julia.org [place] National [place] of Mental Health: www.nimh.nih.gov Contact a health care provider if: Your symptoms get worse. You develop new symptoms. Get help right away if: You self-harm. You have serious thoughts about hurting yourself or others. You hallucinate. If you ever feel like you may hurt yourself or others, or have thoughts about taking your own life, get help right away. Go to your nearest emergency department or: Call your local emergency services (068 in the [place] Call a suicide crisis helpline, such as the National Suicide Prevention Lifeline at or 753 in the [place] This is open 24 hours a day in the [place] Text the Crisis Text Line at 409545 (in the [place] Summary Major depressive disorder (MDD) is a mental health condition. MDD causes symptoms of sadness, hopelessness, and loss of interest in things. These symptoms last most of the day, almost every day, for 2 weeks. The symptoms of MDD can interfere with relationships and with everyday activities. Treatments and support are available for people who develop MDD. You may need more than one type of treatment. Get help right away if you have serious thoughts about hurting yourself or others. This information is not intended to replace advice given to you by your health care provider. Make sure you discuss any questions you have with your health care provider. Document Revised: 06/12/2022 Document Reviewed: 10/28/2020 [employer] Patient Education 2022 HDmessaging. [facility] 05-26-2024 Hospital Discharge instructions Patient Education 05/26/2024 13:32:09 Preventing Vitamin D Deficiency Preventing Vitamin D Deficiency Vitamin D deficiency is when your body does not have enough vitamin D. Vitamin D is important because it helps your body maintain calcium and phosphorus levels. It plays a soto role in the health of bones and teeth, reduces inflammation, and improves the body's defense system (immune system). Our bodies make vitamin D when our skin is exposed to direct sunlight. However, for many people, this may not be enough vitamin D to meet the body's needs. How can this condition affect me? If vitamin D deficiency is severe, it can cause a condition in which a person's bones become softer than normal. In adults, this condition is called osteomalacia. In children, this condition is called rickets. Vitamin D deficiency can also cause weak or thin bones (osteoporosis) in adults. What can increase my risk? You may be at risk for a vitamin D deficiency if you: Are . Are obese. Are an older adult. Have dark skin. Take certain medicines that affect the way vitamin D is absorbed. Have had a surgery in which a part of the stomach or a part of the small intestine was removed. Other risk factors include: Having a condition that limits your ability to absorb fat, such as Crohn's disease, long-term (chronic) pancreatitis, or cystic fibrosis. Having certain conditions that are passed from parent to child (inherited). Not having access to foods rich in vitamin D. Having limited ability to move and go outside safely. Living in areas that have fewer hours of sunlight. Spending most of your day indoors, or covering your skin all the time when you are outdoors. What actions can I take to reduce my risk of a vitamin D deficiency? Knowing the best sources of vitamin D You can meet your daily vitamin D needs from: Foods. Dietary supplements. Direct exposure to natural sunlight. Infant formula, for infants. Knowing how much vitamin D you need General recommendations for daily vitamin D intake vary by these categories: Infants: 400 international units (IU). Children older than 1 year: 600 international units. Adults: 600 international units. and women: 600 international units. Adults older than 70 years: 800 international units. These are minimum levels of recommended amounts. Your health care provider may recommend a different amount of vitamin D intake based on your specific needs and your overall health. Getting sun exposure Get regular, safe exposure to natural sunlight. Expose your skin to direct sunlight for at least 15 minutes every day. If you have dark skin, you may need to expose your skin for a longer period of time. Protect your skin from too much sun exposure. This helps to prevent skin cancer. Ask your health care provider if regular sun exposure is safe for you. Do not use a tanning bed. Eating and drinking Eat foods that naturally contain vitamin D. These include: ?Beef liver. ?Eggs. The vitamin D is in the yolk. ?Fish, such as salmon or trout. ?Mushrooms that were treated with UV light. Eat or drink products that have vitamin D added to them (are fortified). These may include: ?Cereals. ?Milk, including plant-based alternatives such as almond, soy, or oat milks. ?Pontiac juice. ?Margarine. When choosing foods, check the food label on the package to see: ?How much vitamin D is in the item. ?If the food is fortified with vitamin D. The items listed above may not be a complete list of foods and beverages you can eat and drink. Contact a dietitian for more information. Taking supplements and medicines If you are at risk for vitamin D deficiency, or if you have certain diseases, your health care provider may recommend that you take a vitamin D supplement. Make sure you: Talk with your health care provider before you start taking any vitamin D supplements. You may be more sensitive to the side effects of vitamin D supplements if you are on certain medicines or have certain medical conditions. Tell your health care provider about all medicines you are taking, including vitamins, herbs, eye drops, creams, and evtf-vrz-kpuerdh medicines. Take gudu-kel-olzjgtc and prescription medicines only as told by your health care provider. Take supplements only as told by your health care provider. To increase absorption of your supplement, take it with a meal or snack. Summary Vitamin D plays a soto role in the health of bones and teeth, reduces inflammation, and improves the body's defense system (immune system). A vitamin D deficiency can put you at risk of developing conditions such as rickets or osteoporosis. Our bodies make vitamin D when our skin is exposed to direct sunlight. However, for many people, this may not be enough vitamin D to meet the body's needs. Some foods naturally contain vitamin D, including beef liver, egg yolk, and fish. Eat or drink products that have vitamin D added to them (are fortified). This information is not intended to replace advice given to you by your health care provider. Make sure you discuss any questions you have with your health care provider. Document Revised: 08/23/2022 Document Reviewed: 08/23/2022 [employer] Patient Education 2022 [email or web address]. 05/26/2024 13:32:06 Dyslipidemia Dyslipidemia Dyslipidemia is an imbalance of waxy, fat-like substances (lipids) in the blood. The body needs lipids in small amounts. Dyslipidemia often involves a high level of cholesterol or triglycerides, which are types of lipids. Common forms of dyslipidemia include: High levels of LDL cholesterol. LDL is the type of cholesterol that causes fatty deposits (plaques) to build up in the blood vessels that carry blood away from the heart (arteries). Low levels of HDL cholesterol. HDL cholesterol is the type of cholesterol that protects against heart disease. High levels of HDL remove the LDL buildup from arteries. High levels of triglycerides. Triglycerides are a fatty substance in the blood that is linked to a buildup of plaques in the arteries. What are the causes? There are two main types of dyslipidemia: primary and secondary. Primary dyslipidemia is caused by changes (mutations) in genes that are passed down through families (inherited). These mutations cause several types of dyslipidemia. Secondary dyslipidemia may be caused by various risk factors that can lead to the disease, such as lifestyle choices and certain medical conditions. What increases the risk? You are more likely to develop this condition if you are an older man or if you are a woman who has gone through menopause. Other risk factors include: Having a family history of dyslipidemia. Taking certain medicines, including control pills, steroids, some diuretics, and beta-blockers. Eating a diet high in saturated fat. Smoking cigarettes or excessive alcohol intake. Having certain medical conditions such as diabetes, polycystic ovary syndrome (PCOS), kidney disease, liver disease, or hypothyroidism. Not exercising regularly. Being overweight or obese with too much belly fat. What are the signs or symptoms? In most cases, dyslipidemia does not usually cause any symptoms. In severe cases, very high lipid levels can cause: Fatty bumps under the skin (xanthomas). A white or ignacio ring around the black center (pupil) of the eye. Very high triglyceride levels can cause inflammation of the pancreas (pancreatitis). How is this diagnosed? Your health care provider may diagnose dyslipidemia based on a routine blood test (fasting blood test). Because most people do not have symptoms of the condition, this blood testing (lipid profile) is done on adults age 20 and older and is repeated every 4-6 years. This test checks: Total cholesterol. This measures the total amount of cholesterol in your blood, including LDL cholesterol, HDL cholesterol, and triglycerides. A healthy number is below 200 mg/dL (5.17 mmol/L). LDL cholesterol. The target number for LDL cholesterol is different for each person, depending on individual risk factors. A healthy number is usually below 100 mg/dL (2.59 mmol/L). Ask your health care provider what your LDL cholesterol should be. HDL cholesterol. An HDL level of 60 mg/dL (1.55 mmol/L) or higher is best because it helps to protect against heart disease. A number below 40 mg/dL (1.03 mmol/L) for men or below 50 mg/dL (1.29 mmol/L) for women increases the risk for heart disease. Triglycerides. A healthy triglyceride number is below 150 mg/dL (1.69 mmol/L). If your lipid profile is abnormal, your health care provider may do other blood tests. How is this treated? Treatment depends on the type of dyslipidemia that you have and your other risk factors for heart disease and stroke. Your health care provider will have a target range for your lipid levels based on this information. Treatment for dyslipidemia starts with lifestyle changes, such as diet and exercise. Your health care provider may recommend that you: Get regular exercise. Make changes to your diet. Quit smoking if you smoke. Limit your alcohol intake. If diet changes and exercise do not help you reach your goals, your health care provider may also prescribe medicine to lower lipids. The most commonly prescribed type of medicine lowers your LDL cholesterol (statin drug). If you have a high triglyceride level, your provider may prescribe another type of drug (fibrate) or an omega-3 fish oil supplement, or both. Follow these instructions at home: Eating and drinking Follow instructions from your health care provider or dietitian about eating or drinking restrictions. Eat a healthy diet as told by your health care provider. This can help you reach and maintain a healthy weight, lower your LDL cholesterol, and raise your HDL cholesterol. This may include: ?Limiting your calories, if you are overweight. ?Eating more fruits, vegetables, whole grains, fish, and lean meats. ?Limiting saturated fat, trans fat, and cholesterol. Do not drink alcohol if: ?Your health care provider tells you not to drink. ?You are , may be , or are planning to become . If you drink alcohol: ?Limit how much you have to: ?0 1 drink a day for women. ? 0 2 drinks a day for men. ?Know how much alcohol is in your drink. In the [place] one drink equals one 12 oz bottle of beer (355 mL), one 5 oz glass of wine (148 mL), or one 1 oz glass of hard liquor (44 mL). Activity Get regular exercise. Start an exercise and strength training program as told by your health care provider. Ask your health care provider what activities are safe for you. Your health care provider may recommend: ?30 minutes of aerobic activity 4 6 days a week. Brisk walking is an example of aerobic activity. ?Strength training 2 days a week. General instructions Do not use any products that contain nicotine or tobacco. These products include cigarettes, chewing tobacco, and vaping devices, such as e-cigarettes. If you need help quitting, ask your health care provider. Take cnps-lwk-kpbedev and prescription medicines only as told by your health care provider. This includes supplements. Keep all follow-up visits. This is important. Contact a health care provider if: You are having trouble sticking to your exercise or diet plan. You are struggling to quit smoking or to control your use of alcohol. Summary Dyslipidemia often involves a high level of cholesterol or triglycerides, which are types of lipids. Treatment depends on the type of dyslipidemia that you have and your other risk factors for heart disease and stroke. Treatment for dyslipidemia starts with lifestyle changes, such as diet and exercise. Your health care provider may prescribe medicine to lower lipids. This information is not intended to replace advice given to you by your health care provider. Make sure you discuss any questions you have with your health care provider. Document Revised: 01/21/2022 Document Reviewed: 01/21/2022 [employer] Patient Education 2022 [employer] 05/26/2024 13:32:04 Hypertension, Adult Hypertension, Adult High blood pressure (hypertension) is when the force of blood pumping through the arteries is too strong. The arteries are the blood vessels that carry blood from the heart throughout the body. Hypertension forces the heart to work harder to pump blood and may cause arteries to become narrow or stiff. Untreated or uncontrolled hypertension can lead to a heart attack, heart failure, a stroke, kidney disease, and other problems. A blood pressure reading consists of a higher number over a lower number. Ideally, your blood pressure should be below 120/80. The first ( top ) number is called the systolic pressure. It is a measure of the pressure in your arteries as your heart beats. The second ( bottom ) number is called the diastolic pressure. It is a measure of the pressure in your arteries as the heart relaxes. What are the causes? The exact cause of this condition is not known. There are some conditions that result in high blood pressure. What increases the risk? Certain factors may make you more likely to develop high blood pressure. Some of these risk factors are under your control, including: Smoking. Not getting enough exercise or physical activity. Being overweight. Having too much fat, sugar, calories, or salt (sodium) in your diet. Drinking too much alcohol. Other risk factors include: Having a personal history of heart disease, diabetes, high cholesterol, or kidney disease. Stress. Having a family history of high blood pressure and high cholesterol. Having obstructive sleep apnea. Age. The risk increases with age. What are the signs or symptoms? High blood pressure may not cause symptoms. Very high blood pressure (hypertensive crisis) may cause: Headache. Fast or irregular heartbeats (palpitations). Shortness of breath. Nosebleed. Nausea and vomiting. Vision changes. Severe chest pain, dizziness, and seizures. How is this diagnosed? This condition is diagnosed by measuring your blood pressure while you are seated, with your arm resting on a flat surface, your legs uncrossed, and your feet flat on the floor. The cuff of the blood pressure monitor will be placed directly against the skin of your upper arm at the level of your heart. Blood pressure should be measured at least twice using the same arm. Certain conditions can cause a difference in blood pressure between your right and left arms. If you have a high blood pressure reading during one visit or you have normal blood pressure with other risk factors, you may be asked to: Return on a different day to have your blood pressure checked again. Monitor your blood pressure at home for 1 week or longer. If you are diagnosed with hypertension, you may have other blood or imaging tests to help your health care provider understand your overall risk for other conditions. How is this treated? This condition is treated by making healthy lifestyle changes, such as eating healthy foods, exercising more, and reducing your alcohol intake. You may be referred for counseling on a healthy diet and physical activity. Your health care provider may prescribe medicine if lifestyle changes are not enough to get your blood pressure under control and if: Your systolic blood pressure is above 130. Your diastolic blood pressure is above 80. Your personal target blood pressure may vary depending on your medical conditions, your age, and other factors. Follow these instructions at home: Eating and drinking Eat a diet that is high in fiber and potassium, and low in sodium, added sugar, and fat. An example of this eating plan is called the DASH diet. DASH stands for Dietary Approaches to Stop Hypertension. To eat this way: ?Eat plenty of fresh fruits and vegetables. Try to fill one half of your plate at each meal with fruits and vegetables. ?Eat whole grains, such as whole-wheat pasta, brown rice, or whole-grain bread. Fill about one fourth of your plate with whole grains. ?Eat or drink low-fat dairy products, such as skim milk or low-fat yogurt. ?Avoid fatty cuts of meat, processed or cured meats, and poultry with skin. Fill about one fourth of your plate with lean proteins, such as fish, chicken without skin, beans, eggs, or tofu. ?Avoid pre-made and processed foods. These tend to be higher in sodium, added sugar, and fat. Reduce your daily sodium intake. Many people with hypertension should eat less than 1,500 mg of sodium a day. Do not drink alcohol if: ?Your health care provider tells you not to drink. ?You are , may be , or are planning to become . If you drink alcohol: ?Limit how much you have to: ?0 1 drink a day for women. ?0 2 drinks a day for men. ?Know how much alcohol is in your drink. In the [place] one drink equals one 12 oz bottle of beer (355 mL), one 5 oz glass of wine (148 mL), or one 1 oz glass of hard liquor (44 mL). Lifestyle Work with your health care provider to maintain a healthy body weight or to lose weight. Ask what an ideal weight is for you. Get at least 30 minutes of exercise that causes your heart to beat faster (aerobic exercise) most days of the week. Activities may include walking, swimming, or biking. Include exercise to strengthen your muscles (resistance exercise), such as Pilates or lifting weights, as part of your weekly exercise routine. Try to do these types of exercises for 30 minutes at least 3 days a week. Do not use any products that contain nicotine or tobacco. These products include cigarettes, chewing tobacco, and vaping devices, such as e-cigarettes. If you need help quitting, ask your health care provider. Monitor your blood pressure at home as told by your health care provider. Keep all follow-up visits. This is important. Medicines Take dkgc-zrm-dqctuua and prescription medicines only as told by your health care provider. Follow directions carefully. Blood pressure medicines must be taken as prescribed. Do not skip doses of blood pressure medicine. Doing this puts you at risk for problems and can make the medicine less effective. Ask your health care provider about side effects or reactions to medicines that you should watch for. Contact a health care provider if you: Think you are having a reaction to a medicine you are taking. Have headaches that keep coming back (recurring). Feel dizzy. Have swelling in your ankles. Have trouble with your vision. Get help right away if you: Develop a severe headache or confusion. Have unusual weakness or numbness. Feel faint. Have severe pain in your chest or abdomen. Vomit repeatedly. Have trouble breathing. These symptoms may be an emergency. Get help right away. Call 911. Do not wait to see if the symptoms will go away. Do not drive yourself to the hospital. Summary Hypertension is when the force of blood pumping through your arteries is too strong. If this condition is not controlled, it may put you at risk for serious complications. Your personal target blood pressure may vary depending on your medical conditions, your age, and other factors. For most people, a normal blood pressure is less than 120/80. Hypertension is treated with lifestyle changes, medicines, or a combination of both. Lifestyle changes include losing weight, eating a healthy, low-sodium diet, exercising more, and limiting alcohol. This information is not intended to replace advice given to you by your health care provider. Make sure you discuss any questions you have with your health care provider. Document Revised: 09/24/2022 Document Reviewed: 09/24/2022 [employer] Patient Education 2022 [email or web address]. 05/26/2024 13:32:03 Heart Disease Prevention Heart Disease Prevention Heart disease is the leading cause of in the world. Coronary artery disease is the most common cause of heart disease. This condition results when cholesterol and other substances (plaque) build up inside the franco of the blood vessels that supply your heart muscle (arteries). This buildup in arteries is called atherosclerosis. You can take actions to lower your risk of heart disease. How can heart disease affect me? Heart disease can cause many unpleasant symptoms and complications, such as: Chest pain (angina). Reduced or blocked blood flow to your heart. This can cause: ?Irregular heartbeats (arrhythmias). ?Heart attack. ?Heart failure. What can increase my risk? The following factors may make you more likely to develop this condition: High blood pressure (hypertension). High cholesterol. A diet high in saturated fats or trans fats. Obesity. Diabetes. Having a family history of heart disease. Certain lifestyle factors, including: ?Smoking. ?Lack of physical activity. ?Drinking too much alcohol. What actions can I take to prevent heart disease? Nutrition Follow a heart-healthy eating plan as told by your health care provider. Examples include the DASH eating plan. DASH stands for Dietary Approaches to Stop Hypertension. Generally, it is recommended that you: ?Eat less salt (sodium). Ask your health care provider how much sodium is safe for you. Most people should have less than 2,300 mg each day. ?Limit unhealthy fats, such as saturated and trans fats, in your diet. You can do this by eating low-fat dairy products, eating less red meat, and avoiding processed foods. ?Eat healthy fats (omega-3 fatty acids). These are found in fish, such as mackerel or salmon. ?Eat more fruits and vegetables. You should try to fill one-half of your plate with fruits and vegetables at each meal. ?Eat more whole grains. ?Avoid foods and drinks that have added sugars. Try to limit how much added sugar you have to: ?Less than 25 grams a day for women. ?Less than 36 grams a day for men. Lifestyle Get regular exercise. This is one of the most important things you can do for your health. Generally, it is recommended that you: ?Exercise for at least 30 minutes on most days of the week (150 minutes each week). This should be exercise that causes your heart to beat faster (aerobic exercise). ?Add strength exercises on at least 2 days each week. Do not use any products that contain nicotine or tobacco. These products include cigarettes, chewing tobacco, and vaping devices, such as e-cigarettes. These can damage your heart and blood vessels. If you need help quitting, ask your health care provider. Alcohol use Do not drink alcohol if: ?Your health care provider tells you not to drink. ?You are , may be , or are planning to become . If you drink alcohol: ?Limit how much you have to: ?0 1 drink a day for women. ?0 2 drinks a day for men. ?Know how much alcohol is in your drink. In the [place] one drink equals one 12 oz bottle of beer (355 mL), one 5 oz glass of wine (148 mL), or one 1 oz glass of hard liquor (44 mL). Medicines Take zmql-cwq-eqtghwq and prescription medicines only as told by your health care provider. Work with your health care provider to find out whether it is safe and beneficial for you to take aspirin daily. Make sure that you understand how much to take and what form to take. Depending on your risk factors, your health care provider may prescribe medicines to lower your risk of heart disease or to control related conditions. You may take medicine to: ?Lower cholesterol. ?Control blood pressure. ?Control diabetes. General information Keep your blood pressure under control, as recommended by your health care provider. For most healthy people, the upper number of their blood pressure (systolic) should be no higher than 120, and the lower number (diastolic) no higher than 80. Treatment may be needed if your blood pressure is higher than 130/80. Have your blood pressure checked at least every 2 years. Your health care provider may check your blood pressure more often if you have high blood pressure. After age 20, have your cholesterol checked every 4 6 years. If you have risk factors for heart disease, you may need to have it checked more often. Treatment may be needed if your cholesterol is high. Have your body mass index (BMI) checked every year. Your health care provider can calculate your BMI from your height and weight. Check your waist circumference. It should be: ?No more than 35 inches (89 cm) for women who are not . ?No more than 40 inches (102 cm) for men. Work with your health care provider to lose weight, if needed, or to maintain a healthy weight. Where to find more information: Centers for Disease Control and Prevention: www.cdc.gov/heartdisease [place] [employer]: www.heart.org Summary Heart disease is the leading cause of in the world. Heart disease can cause chest pain, abnormal heart rhythms, heart attack, and heart failure. Some of the risk factors for heart disease include high blood pressure, high cholesterol, and smoking. You can take actions to lower your chances of developing heart disease. Work with your health care provider to reduce your risk by following a heart-healthy diet, being physically active, and controlling your weight, blood pressure, and cholesterol level. This information is not intended to replace advice given to you by your health care provider. Make sure you discuss any questions you have with your health care provider. Document Revised: 07/17/2022 Document Reviewed: 07/17/2022 [employer] Patient Education 2022 HDmessaging. 05/26/2024 13:31:57 Hypothyroidism Hypothyroidism Hypothyroidism is when the thyroid gland does not make enough of certain hormones. This is called an underactive thyroid. The thyroid gland is a small gland located in the lower front part of the neck, just in front of the windpipe (trachea). This gland makes hormones that help control how the body uses food for energy (metabolism) as well as how the heart and brain function. These hormones also play a role in keeping your bones strong. When the thyroid is underactive, it produces too little of the hormones thyroxine (T4) and triiodothyronine (T3). What are the causes? This condition may be caused by: Izzy's disease. This is a disease in which the body's disease-fighting system (immune system) attacks the thyroid gland. This is the most common cause. Viral infections. . Certain medicines. defects. Problems with a gland in the center of the brain (pituitary gland). Lack of enough iodine in the diet. Other causes may include: Past radiation treatments to the head or neck for cancer. Past treatment with radioactive iodine. Past exposure to radiation in the environment. Past surgical removal of part or all of the thyroid. What increases the risk? You are more likely to develop this condition if: You are female. You have a family history of thyroid conditions. You use a medicine called lithium. You take medicines that affect the immune system (immunosuppressants). What are the signs or symptoms? Common symptoms of this condition include: Not being able to tolerate cold. Feeling as though you have no energy (lethargy). Lack of appetite. Constipation. Sadness or depression. Weight gain that is not explained by a change in diet or exercise habits. Menstrual irregularity. Dry skin, coarse hair, or brittle nails. Other symptoms may include: Muscle pain. Slowing of thought processes. Poor memory. How is this diagnosed? This condition may be diagnosed based on: Your symptoms, your medical history, and a physical exam. Blood tests. You may also have imaging tests, such as an ultrasound or MRI. How is this treated? This condition is treated with medicine that replaces the thyroid hormones that your body does not make. After you begin treatment, it may take several weeks for symptoms to go away. Follow these instructions at home: Take awer-bmg-uabiosd and prescription medicines only as told by your health care provider. If you start taking any new medicines, tell your health care provider. Keep all follow-up visits as told by your health care provider. This is important. ?As your condition improves, your dosage of thyroid hormone medicine may change. ?You will need to have blood tests regularly so that your health care provider can monitor your condition. Contact a health care provider if: Your symptoms do not get better with treatment. You are taking thyroid hormone replacement medicine and you: ?Sweat a lot. ?Have tremors. ?Feel anxious. ?Lose weight rapidly. ?Cannot tolerate heat. ?Have emotional swings. ?Have diarrhea. ?Feel weak. Get help right away if: You have chest pain. You have an irregular heartbeat. You have a rapid heartbeat. You have difficulty breathing. These symptoms may be an emergency. Get help right away. Call 911. Do not wait to see if the symptoms will go away. Do not drive yourself to the hospital. Summary Hypothyroidism is when the thyroid gland does not make enough of certain hormones (it is underactive). When the thyroid is underactive, it produces too little of the hormones thyroxine (T4) and triiodothyronine (T3). The most common cause is Izzy's disease, a disease in which the body's disease-fighting system (immune system) attacks the thyroid gland. The condition can also be caused by viral infections, medicine, , or past radiation treatment to the head or neck. Symptoms may include weight gain, dry skin, constipation, feeling as though you do not have energy, and not being able to tolerate cold. This condition is treated with medicine to replace the thyroid hormones that your body does not make. This information is not intended to replace advice given to you by your health care provider. Make sure you discuss any questions you have with your health care provider. Document Revised: 11/19/2022 Document Reviewed: 11/19/2022 [employer] Patient Education 2022 HDmessaging. 05/26/2024 13:18:44 Dyslipidemia Dyslipidemia Dyslipidemia is an imbalance of waxy, fat-like substances (lipids) in the blood. The body needs lipids in small amounts. Dyslipidemia often involves a high level of cholesterol or triglycerides, which are types of lipids. Common forms of dyslipidemia include: High levels of LDL cholesterol. LDL is the type of cholesterol that causes fatty deposits (plaques) to build up in the blood vessels that carry blood away from the heart (arteries). Low levels of HDL cholesterol. HDL cholesterol is the type of cholesterol that protects against heart disease. High levels of HDL remove the LDL buildup from arteries. High levels of triglycerides. Triglycerides are a fatty substance in the blood that is linked to a buildup of plaques in the arteries. What are the causes? There are two main types of dyslipidemia: primary and secondary. Primary dyslipidemia is caused by changes (mutations) in genes that are passed down through families (inherited). These mutations cause several types of dyslipidemia. Secondary dyslipidemia may be caused by various risk factors that can lead to the disease, such as lifestyle choices and certain medical conditions. What increases the risk? You are more likely to develop this condition if you are an older man or if you are a woman who has gone through menopause. Other risk factors include: Having a family history of dyslipidemia. Taking certain medicines, including control pills, steroids, some diuretics, and beta-blockers. Eating a diet high in saturated fat. Smoking cigarettes or excessive alcohol intake. Having certain medical conditions such as diabetes, polycystic ovary syndrome (PCOS), kidney disease, liver disease, or hypothyroidism. Not exercising regularly. Being overweight or obese with too much belly fat. What are the signs or symptoms? In most cases, dyslipidemia does not usually cause any symptoms. In severe cases, very high lipid levels can cause: Fatty bumps under the skin (xanthomas). A white or ignacio ring around the black center (pupil) of the eye. Very high triglyceride levels can cause inflammation of the pancreas (pancreatitis). How is this diagnosed? Your health care provider may diagnose dyslipidemia based on a routine blood test (fasting blood test). Because most people do not have symptoms of the condition, this blood testing (lipid profile) is done on adults age 20 and older and is repeated every 4-6 years. This test checks: Total cholesterol. This measures the total amount of cholesterol in your blood, including LDL cholesterol, HDL cholesterol, and triglycerides. A healthy number is below 200 mg/dL (5.17 mmol/L). LDL cholesterol. The target number for LDL cholesterol is different for each person, depending on individual risk factors. A healthy number is usually below 100 mg/dL (2.59 mmol/L). Ask your health care provider what your LDL cholesterol should be. HDL cholesterol. An HDL level of 60 mg/dL (1.55 mmol/L) or higher is best because it helps to protect against heart disease. A number below 40 mg/dL (1.03 mmol/L) for men or below 50 mg/dL (1.29 mmol/L) for women increases the risk for heart disease. Triglycerides. A healthy triglyceride number is below 150 mg/dL (1.69 mmol/L). If your lipid profile is abnormal, your health care provider may do other blood tests. How is this treated? Treatment depends on the type of dyslipidemia that you have and your other risk factors for heart disease and stroke. Your health care provider will have a target range for your lipid levels based on this information. Treatment for dyslipidemia starts with lifestyle changes, such as diet and exercise. Your health care provider may recommend that you: Get regular exercise. Make changes to your diet. Quit smoking if you smoke. Limit your alcohol intake. If diet changes and exercise do not help you reach your goals, your health care provider may also prescribe medicine to lower lipids. The most commonly prescribed type of medicine lowers your LDL cholesterol (statin drug). If you have a high triglyceride level, your provider may prescribe another type of drug (fibrate) or an omega-3 fish oil supplement, or both. Follow these instructions at home: Eating and drinking Follow instructions from your health care provider or dietitian about eating or drinking restrictions. Eat a healthy diet as told by your health care provider. This can help you reach and maintain a healthy weight, lower your LDL cholesterol, and raise your HDL cholesterol. This may include: ?Limiting your calories, if you are overweight. ?Eating more fruits, vegetables, whole grains, fish, and lean meats. ?Limiting saturated fat, trans fat, and cholesterol. Do not drink alcohol if: ?Your health care provider tells you not to drink. ?You are , may be , or are planning to become . If you drink alcohol: ?Limit how much you have to: ?0 1 drink a day for women. ? 0 2 drinks a day for men. ?Know how much alcohol is in your drink. In the [place] one drink equals one 12 oz bottle of beer (355 mL), one 5 oz glass of wine (148 mL), or one 1 oz glass of hard liquor (44 mL). Activity Get regular exercise. Start an exercise and strength training program as told by your health care provider. Ask your health care provider what activities are safe for you. Your health care provider may recommend: ?30 minutes of aerobic activity 4 6 days a week. Brisk walking is an example of aerobic activity. ?Strength training 2 days a week. General instructions Do not use any products that contain nicotine or tobacco. These products include cigarettes, chewing tobacco, and vaping devices, such as e-cigarettes. If you need help quitting, ask your health care provider. Take xyzo-nfv-xxgikcz and prescription medicines only as told by your health care provider. This includes supplements. Keep all follow-up visits. This is important. Contact a health care provider if: You are having trouble sticking to your exercise or diet plan. You are struggling to quit smoking or to control your use of alcohol. Summary Dyslipidemia often involves a high level of cholesterol or triglycerides, which are types of lipids. Treatment depends on the type of dyslipidemia that you have and your other risk factors for heart disease and stroke. Treatment for dyslipidemia starts with lifestyle changes, such as diet and exercise. Your health care provider may prescribe medicine to lower lipids. This information is not intended to replace advice given to you by your health care provider. Make sure you discuss any questions you have with your health care provider. Document Revised: 01/21/2022 Document Reviewed: 01/21/2022 [employer] Patient Education 2022 HDmessaging. 05/26/2024 13:18:40 Heart Disease Prevention Heart Disease Prevention Heart disease is the leading cause of in the world. Coronary artery disease is the most common cause of heart disease. This condition results when cholesterol and other substances (plaque) build up inside the frnaco of the blood vessels that supply your heart muscle (arteries). This buildup in arteries is called atherosclerosis. You can take actions to lower your risk of heart disease. How can heart disease affect me? Heart disease can cause many unpleasant symptoms and complications, such as: Chest pain (angina). Reduced or blocked blood flow to your heart. This can cause: ?Irregular heartbeats (arrhythmias). ?Heart attack. ?Heart failure. What can increase my risk? The following factors may make you more likely to develop this condition: High blood pressure (hypertension). High cholesterol. A diet high in saturated fats or trans fats. Obesity. Diabetes. Having a family history of heart disease. Certain lifestyle factors, including: ?Smoking. ?Lack of physical activity. ?Drinking too much alcohol. What actions can I take to prevent heart disease? Nutrition Follow a heart-healthy eating plan as told by your health care provider. Examples include the DASH eating plan. DASH stands for Dietary Approaches to Stop Hypertension. Generally, it is recommended that you: ?Eat less salt (sodium). Ask your health care provider how much sodium is safe for you. Most people should have less than 2,300 mg each day. ?Limit unhealthy fats, such as saturated and trans fats, in your diet. You can do this by eating low-fat dairy products, eating less red meat, and avoiding processed foods. ?Eat healthy fats (omega-3 fatty acids). These are found in fish, such as mackerel or salmon. ?Eat more fruits and vegetables. You should try to fill one-half of your plate with fruits and vegetables at each meal. ?Eat more whole grains. ?Avoid foods and drinks that have added sugars. Try to limit how much added sugar you have to: ?Less than 25 grams a day for women. ?Less than 36 grams a day for men. Lifestyle Get regular exercise. This is one of the most important things you can do for your health. Generally, it is recommended that you: ?Exercise for at least 30 minutes on most days of the week (150 minutes each week). This should be exercise that causes your heart to beat faster (aerobic exercise). ?Add strength exercises on at least 2 days each week. Do not use any products that contain nicotine or tobacco. These products include cigarettes, chewing tobacco, and vaping devices, such as e-cigarettes. These can damage your heart and blood vessels. If you need help quitting, ask your health care provider. Alcohol use Do not drink alcohol if: ?Your health care provider tells you not to drink. ?You are , may be , or are planning to become . If you drink alcohol: ?Limit how much you have to: ?0 1 drink a day for women. ?0 2 drinks a day for men. ?Know how much alcohol is in your drink. In the [place] one drink equals one 12 oz bottle of beer (355 mL), one 5 oz glass of wine (148 mL), or one 1 oz glass of hard liquor (44 mL). Medicines Take yfib-owf-lzhgnnw and prescription medicines only as told by your health care provider. Work with your health care provider to find out whether it is safe and beneficial for you to take aspirin daily. Make sure that you understand how much to take and what form to take. Depending on your risk factors, your health care provider may prescribe medicines to lower your risk of heart disease or to control related conditions. You may take medicine to: ?Lower cholesterol. ?Control blood pressure. ?Control diabetes. General information Keep your blood pressure under control, as recommended by your health care provider. For most healthy people, the upper number of their blood pressure (systolic) should be no higher than 120, and the lower number (diastolic) no higher than 80. Treatment may be needed if your blood pressure is higher than 130/80. Have your blood pressure checked at least every 2 years. Your health care provider may check your blood pressure more often if you have high blood pressure. After age 20, have your cholesterol checked every 4 6 years. If you have risk factors for heart disease, you may need to have it checked more often. Treatment may be needed if your cholesterol is high. Have your body mass index (BMI) checked every year. Your health care provider can calculate your BMI from your height and weight. Check your waist circumference. It should be: ?No more than 35 inches (89 cm) for women who are not . ?No more than 40 inches (102 cm) for men. Work with your health care provider to lose weight, if needed, or to maintain a healthy weight. Where to find more information: Centers for Disease Control and Prevention: www.cdc.gov/heartdisease [place] [employer]: www.heart.org Summary Heart disease is the leading cause of in the world. Heart disease can cause chest pain, abnormal heart rhythms, heart attack, and heart failure. Some of the risk factors for heart disease include high blood pressure, high cholesterol, and smoking. You can take actions to lower your chances of developing heart disease. Work with your health care provider to reduce your risk by following a heart-healthy diet, being physically active, and controlling your weight, blood pressure, and cholesterol level. This information is not intended to replace advice given to you by your health care provider. Make sure you discuss any questions you have with your health care provider. Document Revised: 07/17/2022 Document Reviewed: 07/17/2022 [employer] Patient Education 2022 HDmessaging. 05/26/2024 13:18:39 DASH Eating Plan DASH Eating Plan DASH stands for Dietary Approaches to Stop Hypertension. The DASH eating plan is a healthy eating plan that has been shown to: Reduce high blood pressure (hypertension). Reduce your risk for type 2 diabetes, heart disease, and stroke. Help with weight loss. What are tips for following this plan? Reading food labels Check food labels for the amount of salt (sodium) per serving. Choose foods with less than 5 percent of the Daily Value of sodium. Generally, foods with less than 300 milligrams (mg) of sodium per serving fit into this eating plan. To find whole grains, look for the word whole as the first word in the ingredient list. Shopping Buy products labeled as low-sodium or no salt added. Buy fresh foods. Avoid canned foods and pre-made or frozen meals. Cooking Avoid adding salt when cooking. Use salt-free seasonings or herbs instead of table salt or sea salt. Check with your health care provider or pharmacist before using salt substitutes. Do not spears foods. Cook foods using healthy methods such as baking, boiling, grilling, roasting, and broiling instead. Cook with heart-healthy oils, such as olive, canola, avocado, soybean, or sunflower oil. Meal planning Eat a balanced diet that includes: ?4 or more servings of fruits and 4 or more servings of vegetables each day. Try to fill one-half of your plate with fruits and vegetables. ?6 8 servings of whole grains each day. ?Less than 6 oz (170 g) of lean meat, poultry, or fish each day. A 3-oz (85-g) serving of meat is about the same size as a deck of cards. One egg equals 1 oz (28 g). ?2 3 servings of low-fat dairy each day. One serving is 1 cup (237 mL). ?1 serving of nuts, seeds, or beans 5 times each week. ?2 3 servings of heart-healthy fats. Healthy fats called omega-3 fatty acids are found in foods such as walnuts, flaxseeds, fortified milks, and eggs. These fats are also found in cold-water fish, such as sardines, salmon, and mackerel. Limit how much you eat of: ?Canned or prepackaged foods. ?Food that is high in trans fat, such as some fried foods. ?Food that is high in saturated fat, such as fatty meat. ?Desserts and other sweets, sugary drinks, and other foods with added sugar. ?Full-fat dairy products. Do not salt foods before eating. Do not eat more than 4 egg yolks a week. Try to eat at least 2 vegetarian meals a week. Eat more home-cooked food and less restaurant, buffet, and fast food. Lifestyle When eating at a restaurant, ask that your food be prepared with less salt or no salt, if possible. If you drink alcohol: ?Limit how much you use to: ?0 1 drink a day for women who are not . ?0 2 drinks a day for men. ?Be aware of how much alcohol is in your drink. In the [place] one drink equals one 12 oz bottle of beer (355 mL), one 5 oz glass of wine (148 mL), or one 1 oz glass of hard liquor (44 mL). General information Avoid eating more than 2,300 mg of salt a day. If you have hypertension, you may need to reduce your sodium intake to 1,500 mg a day. Work with your health care provider to maintain a healthy body weight or to lose weight. Ask what an ideal weight is for you. Get at least 30 minutes of exercise that causes your heart to beat faster (aerobic exercise) most days of the week. Activities may include walking, swimming, or biking. Work with your health care provider or dietitian to adjust your eating plan to your individual calorie needs. What foods should I eat? Fruits All fresh, dried, or frozen fruit. Canned fruit in natural juice (without added sugar). Vegetables Fresh or frozen vegetables (raw, steamed, roasted, or grilled). Low-sodium or reduced-sodium tomato and vegetable juice. Low-sodium or reduced-sodium tomato sauce and tomato paste. Low-sodium or reduced-sodium canned vegetables. Grains Whole-grain or whole-wheat bread. Whole-grain or whole-wheat pasta. Brown rice. Oatmeal. Quinoa. Bulgur. Whole-grain and low-sodium cereals. Dian bread. Low-fat, low-sodium crackers. Whole-wheat flour tortillas. Meats and other proteins Skinless chicken or turkey. Ground chicken or turkey. Pork with fat trimmed off. Fish and seafood. Egg whites. Dried beans, peas, or lentils. Unsalted nuts, nut butters, and seeds. Unsalted canned beans. Lean cuts of beef with fat trimmed off. Low-sodium, lean precooked or cured meat, such as sausages or meat loaves. Dairy Low-fat (1%) or fat-free (skim) milk. Reduced-fat, low-fat, or fat-free cheeses. Nonfat, low-sodium ricotta or cottage cheese. Low-fat or nonfat yogurt. Low-fat, low-sodium cheese. Fats and oils Soft margarine without trans fats. Vegetable oil. Reduced-fat, low-fat, or light mayonnaise and salad dressings (reduced-sodium). Canola, safflower, olive, avocado, soybean, and sunflower oils. Avocado. Seasonings and condiments Herbs. Spices. Seasoning mixes without salt. Other foods Unsalted popcorn and pretzels. Fat-free sweets. The items listed above may not be a complete list of foods and beverages you can eat. Contact a dietitian for more information. What foods should I avoid? Fruits Canned fruit in a light or heavy syrup. Fried fruit. Fruit in cream or butter sauce. Vegetables Creamed or fried vegetables. Vegetables in a cheese sauce. Regular canned vegetables (not low-sodium or reduced-sodium). Regular canned tomato sauce and paste (not low-sodium or reduced-sodium). Regular tomato and vegetable juice (not low-sodium or reduced-sodium). Pickles. Olives. Grains Baked goods made with fat, such as croissants, muffins, or some breads. Dry pasta or rice meal packs. Meats and other proteins Fatty cuts of meat. Ribs. Fried meat. Torres. Bologna, salami, and other precooked or cured meats, such as sausages or meat loaves. Fat from the back of a pig (fatback). Bratwurst. Salted nuts and seeds. Canned beans with added salt. Canned or smoked fish. Whole eggs or egg yolks. Chicken or turkey with skin. Dairy Whole or 2% milk, cream, and vmgv-fnz-vntq. Whole or full-fat cream cheese. Whole-fat or sweetened yogurt. Full-fat cheese. Nondairy creamers. Whipped toppings. Processed cheese and cheese spreads. Fats and oils Butter. Stick margarine. Lard. Shortening. Ghee. Torres fat. Tropical oils, such as coconut, palm kernel, or palm oil. Seasonings and condiments Onion salt, garlic salt, seasoned salt, table salt, and sea salt. Worcestershire sauce. Tartar sauce. Barbecue sauce. Teriyaki sauce. Soy sauce, including reduced-sodium. Steak sauce. Canned and packaged gravies. Fish sauce. Oyster sauce. Cocktail sauce. Store-bought horseradish. Ketchup. Mustard. Meat flavorings and tenderizers. Bouillon cubes. Hot sauces. Pre-made or packaged marinades. Pre-made or packaged taco seasonings. Relishes. Regular salad dressings. Other foods Salted popcorn and pretzels. The items listed above may not be a complete list of foods and beverages you should avoid. Contact a dietitian for more information. Where to find more information National Heart, Lung, and Blood [place]: www.nhlbi.nih.gov [place] [employer]: www.heart.org Academy of Nutrition and Dietetics: www.eatright.org National Kidney Foundation: www.kidney.org Summary The DASH eating plan is a healthy eating plan that has been shown to reduce high blood pressure (hypertension). It may also reduce your risk for type 2 diabetes, heart disease, and stroke. When on the DASH eating plan, aim to eat more fresh fruits and vegetables, whole grains, lean proteins, low-fat dairy, and heart-healthy fats. With the DASH eating plan, you should limit salt (sodium) intake to 2,300 mg a day. If you have hypertension, you may need to reduce your sodium intake to 1,500 mg a day. Work with your health care provider or dietitian to adjust your eating plan to your individual calorie needs. This information is not intended to replace advice given to you by your health care provider. Make sure you discuss any questions you have with your health care provider. Document Revised: 10/20/2020 Document Reviewed: 10/20/2020 [employer] Patient Education 2022 HDmessaging. 05/26/2024 13:18:36 Genital Yeast Infection, Male Genital Yeast Infection, Male In men, a genital yeast infection is a condition that causes soreness, swelling, and redness (inflammation) of the head of the penis (glans penis). A genital yeast infection can be spread through sexual contact, but it can also develop without sexual contact. If the infection is not treated properly, it is likely to come back. What are the causes? This condition is caused by a change in the normal balance of the yeast and bacteria that live on the skin. This change causes an overgrowth of yeast, which causes the inflammation. Many types of yeast can cause this infection, but Lauryn is the most common. What increases the risk? The following factors may make you more likely to develop this condition: Taking antibiotic medicines. Having diabetes. Being exposed to the infection by a sexual partner. Being uncircumcised. Having a weak body defense system (immune system). Taking steroid medicines for a long time. Having poor hygiene. What are the signs or symptoms? Symptoms of this condition include: Itching of the groin and penis. Dry, red, or cracked skin on the penis. Swelling of the genital area. Pain while urinating or trouble urinating. Thick, bad-smelling discharge on the penis. How is this diagnosed? This condition may be diagnosed based on: Your medical history. A physical exam. You may also have tests, such as: Test of a sample of discharge from the penis. Urine tests. Blood tests. How is this treated? This condition is treated with: Antifungal creams or medicines. Antifungal medicines may be prescribed by your health care provider or they may be available over the counter. Self-care at home. For men who are not circumcised, circumcision may be recommended to control infections that return and are difficult to treat. Follow these instructions at home: Medicines Take or apply ljxj-tbq-zgtjnvr and prescription medicines only as told by your health care provider. Take your antifungal medicine as told by your health care provider. Do not stop taking the medicine even if you start to feel better. Self-care Wash your penis with soap and water every day. If you are not circumcised, pull back the foreskin to wash. Make sure to dry your penis completely after washing. Take sitz baths as told by your health care provider. This may help ease swelling and redness. Wear breathable, cotton underwear. Keep your underwear clean and dry. General instructions Do not have sex until your health care provider has approved. Tell your sexual partner that you have a yeast infection. That person should go for treatment even if no symptoms are present. If you have diabetes, keep your blood sugar levels within your target range. Keep all follow-up visits. This is important. Contact a health care provider if: You have a fever. You have symptoms that go away and then return. You do not get better with treatment. You have symptoms that get worse. You have new symptoms. Get help right away if: Your swelling and inflammation become so severe that you cannot urinate. Summary In men, a genital yeast infection is a condition that causes soreness, swelling, and redness (inflammation) of the head of the penis (glans penis). This condition is caused by a change in the normal balance of the yeast and bacteria that live on the skin. This change causes an overgrowth of yeast, which causes the inflammation. A genital yeast infection usually spreads through sexual contact, but it can develop without sexual contact. For instance, you may be more likely to develop this infection if you take antibiotics or steroids, have diabetes, are not circumcised, have a weak immune system, or have poor hygiene. This condition is treated with antifungal cream or pills along with self-care at home. This information is not intended to replace advice given to you by your health care provider. Make sure you discuss any questions you have with your health care provider. Document Revised: 11/13/2022 Document Reviewed: 11/13/2022 [employer] Patient Education 2022 HDmessaging. 05/26/2024 13:18:33 Hypothyroidism Hypothyroidism Hypothyroidism is when the thyroid gland does not make enough of certain hormones. This is called an underactive thyroid. The thyroid gland is a small gland located in the lower front part of the neck, just in front of the windpipe (trachea). This gland makes hormones that help control how the body uses food for energy (metabolism) as well as how the heart and brain function. These hormones also play a role in keeping your bones strong. When the thyroid is underactive, it produces too little of the hormones thyroxine (T4) and triiodothyronine (T3). What are the causes? This condition may be caused by: Izzy's disease. This is a disease in which the body's disease-fighting system (immune system) attacks the thyroid gland. This is the most common cause. Viral infections. . Certain medicines. defects. Problems with a gland in the center of the brain (pituitary gland). Lack of enough iodine in the diet. Other causes may include: Past radiation treatments to the head or neck for cancer. Past treatment with radioactive iodine. Past exposure to radiation in the environment. Past surgical removal of part or all of the thyroid. What increases the risk? You are more likely to develop this condition if: You are female. You have a family history of thyroid conditions. You use a medicine called lithium. You take medicines that affect the immune system (immunosuppressants). What are the signs or symptoms? Common symptoms of this condition include: Not being able to tolerate cold. Feeling as though you have no energy (lethargy). Lack of appetite. Constipation. Sadness or depression. Weight gain that is not explained by a change in diet or exercise habits. Menstrual irregularity. Dry skin, coarse hair, or brittle nails. Other symptoms may include: Muscle pain. Slowing of thought processes. Poor memory. How is this diagnosed? This condition may be diagnosed based on: Your symptoms, your medical history, and a physical exam. Blood tests. You may also have imaging tests, such as an ultrasound or MRI. How is this treated? This condition is treated with medicine that replaces the thyroid hormones that your body does not make. After you begin treatment, it may take several weeks for symptoms to go away. Follow these instructions at home: Take fhgb-vza-cvndzxd and prescription medicines only as told by your health care provider. If you start taking any new medicines, tell your health care provider. Keep all follow-up visits as told by your health care provider. This is important. ?As your condition improves, your dosage of thyroid hormone medicine may change. ?You will need to have blood tests regularly so that your health care provider can monitor your condition. Contact a health care provider if: Your symptoms do not get better with treatment. You are taking thyroid hormone replacement medicine and you: ?Sweat a lot. ?Have tremors. ?Feel anxious. ?Lose weight rapidly. ?Cannot tolerate heat. ?Have emotional swings. ?Have diarrhea. ?Feel weak. Get help right away if: You have chest pain. You have an irregular heartbeat. You have a rapid heartbeat. You have difficulty breathing. These symptoms may be an emergency. Get help right away. Call 911. Do not wait to see if the symptoms will go away. Do not drive yourself to the hospital. Summary Hypothyroidism is when the thyroid gland does not make enough of certain hormones (it is underactive). When the thyroid is underactive, it produces too little of the hormones thyroxine (T4) and triiodothyronine (T3). The most common cause is Izzy's disease, a disease in which the body's disease-fighting system (immune system) attacks the thyroid gland. The condition can also be caused by viral infections, medicine, , or past radiation treatment to the head or neck. Symptoms may include weight gain, dry skin, constipation, feeling as though you do not have energy, and not being able to tolerate cold. This condition is treated with medicine to replace the thyroid hormones that your body does not make. This information is not intended to replace advice given to you by your health care provider. Make sure you discuss any questions you have with your health care provider. Document Revised: 11/19/2022 Document Reviewed: 11/19/2022 [employer] Patient Education 2022 HDmessaging. Follow Up Care 10/30/2023 10:46:14 With:Vilma John [facility] Address: [address], [address] [facility] [address] [place] [address]- Business (1) When:Within 3 Month(s) Comments:3 mo f/u for htn, hypothyroidism, depression [facility] 05-12-2024 Hospital Discharge instructions Patient Education 05/12/2024 15:56:51 Acute Bronchitis, Adult Acute Bronchitis, Adult Acute bronchitis is sudden inflammation of the main airways (bronchi) that come off the windpipe (trachea) in the lungs. The swelling causes the airways to get smaller and make more mucus than normal. This can make it hard to breathe and can cause coughing or noisy breathing (wheezing). Acute bronchitis may last several weeks. The cough may last longer. Allergies, asthma, and exposure to smoke may make the condition worse. What are the causes? This condition can be caused by germs and by substances that irritate the lungs, including: Cold and flu viruses. The most common cause of this condition is the virus that causes the common cold. Bacteria. This is less common. Breathing in substances that irritate the lungs, including: ?Smoke from cigarettes and other forms of tobacco. ?Dust and pollen. ?Fumes from household cleaning products, gases, or burned fuel. ?Indoor or outdoor air pollution. What increases the risk? The following factors may make you more likely to develop this condition: A weak body's defense system, also called the immune system. A condition that affects your lungs and breathing, such as asthma. What are the signs or symptoms? Common symptoms of this condition include: Coughing. This may bring up clear, yellow, or green mucus from your lungs (sputum). Wheezing. Runny or stuffy nose. Having too much mucus in your lungs (chest congestion). Shortness of breath. Aches and pains, including sore throat or chest. How is this diagnosed? This condition is usually diagnosed based on: Your symptoms and medical history. A physical exam. You may also have other tests, including tests to rule out other conditions, such as pneumonia. These tests include: A test of lung function. Test of a mucus sample to look for the presence of bacteria. Tests to check the oxygen level in your blood. Blood tests. Chest X-ray. How is this treated? Most cases of acute bronchitis clear up over time without treatment. Your health care provider may recommend: Drinking more fluids to help thin your mucus so it is easier to cough up. Taking inhaled medicine (inhaler) to improve air flow in and out of your lungs. Using a vaporizer or a humidifier. These are machines that add water to the air to help you breathe better. Taking a medicine that thins mucus and clears congestion (expectorant). Taking a medicine that prevents or stops coughing (cough suppressant). It is not common to take an antibiotic medicine for this condition. Follow these instructions at home: Take qenj-ofw-sbgthwe and prescription medicines only as told by your health care provider. Use an inhaler, vaporizer, or humidifier as told by your health care provider. Take two teaspoons (10 mL) of honey at bedtime to lessen coughing at night. Drink enough fluid to keep your urine pale yellow. Do not use any products that contain nicotine or tobacco. These products include cigarettes, chewing tobacco, and vaping devices, such as e-cigarettes. If you need help quitting, ask your health care provider. Get plenty of rest. Return to your normal activities as told by your health care provider. Ask your health care provider what activities are safe for you. Keep all follow-up visits. This is important. How is this prevented? To lower your risk of getting this condition again: Wash your hands often with soap and water for at least 20 seconds. If soap and water are not available, use hand internet assessor. Avoid contact with people who have cold symptoms. Try not to touch your mouth, nose, or eyes with your hands. Avoid breathing in smoke or chemical fumes. Breathing smoke or chemical fumes will make your condition worse. Get the flu shot every year. Contact a health care provider if: Your symptoms do not improve after 2 weeks. You have trouble coughing up the mucus. Your cough keeps you awake at night. You have a fever. Get help right away if you: Cough up blood. Feel pain in your chest. Have severe shortness of breath. Faint or keep feeling like you are going to faint. Have a severe headache. Have a fever or chills that get worse. These symptoms may represent a serious problem that is an emergency. Do not wait to see if the symptoms will go away. Get medical help right away. Call your local emergency services (911 in the [place] Do not drive yourself to the hospital. Summary Acute bronchitis is inflammation of the main airways (bronchi) that come off the windpipe (trachea) in the lungs. The swelling causes the airways to get smaller and make more mucus than normal. Drinking more fluids can help thin your mucus so it is easier to cough up. Take vefw-iyd-pgfcoyd and prescription medicines only as told by your health care provider. Do not use any products that contain nicotine or tobacco. These products include cigarettes, chewing tobacco, and vaping devices, such as e-cigarettes. If you need help quitting, ask your health care provider. Contact a health care provider if your symptoms do not improve after 2 weeks. This information is not intended to replace advice given to you by your health care provider. Make sure you discuss any questions you have with your health care provider. Document Revised: 02/27/2023 Document Reviewed: 03/20/2022 [employer] Patient Education 2022 HDmessaging. 05/12/2024 15:56:49 Otitis Media With Effusion, Adult Otitis Media With Effusion, Adult Otitis media with effusion (OME) is inflammation and fluid (effusion) in the middle ear without having an ear infection. The middle ear is the space behind the eardrum. The middle ear is connected to the back of the throat by a narrow tube (eustachian tube). Normally the eustachian tube drains fluid out of the middle ear. A swollen eustachian tube can become blocked and cause fluid to collect in the middle ear. OME often goes away without treatment. Sometimes OME can lead to hearing problems and recurrent acute ear infections (acute otitis media). These conditions may require treatment. What are the causes? OME is caused by a blocked eustachian tube. This can result from: Allergies. Upper respiratory infections. Enlarged adenoids. The adenoids are areas of soft tissue located high in the back of the throat, behind the nose and the roof of the mouth. They are part of the body's natural defense system (immune system). Rapid changes in pressure, like when an airplane is descending or during scuba diving. In some cases, the cause of this condition is not known. What are the signs or symptoms? Common symptoms of this condition include: A feeling of fullness in your ear. Decreased hearing in the affected ear. Fluid draining into the ear canal. Pain in the ear. In some cases, there are no symptoms. How is this diagnosed? A health care provider can diagnose OME based on signs and symptoms of the condition. Your provider will also do a physical exam to check for fluid behind the eardrum. During the exam, your health care provider will use an instrument called an otoscope to look in your ear. Your health care provider may do other tests, such as: A hearing test. A tympanogram. This is a test that shows how well the eardrum moves in response to air pressure in the ear canal. It provides a graph for your health care provider to review. A pneumatic otoscopy. This is a test to check how your eardrum moves in response to changes in pressure. It is done by squeezing a small amount of air into the ear. How is this treated? Treatment for OME depends on the cause of the condition and the severity of symptoms. The first step is often waiting to see if the fluid drains on its own in a few weeks. Home care treatment may include: Cmvv-wed-rxduogs pain relievers. A warm, moist cloth placed over the ear. Severe cases may require a procedure to insert tubes in the ears (tympanostomy tubes) to drain the fluid. Follow these instructions at home: Take wngk-ydt-zukhnmf and prescription medicines only as told by your health care provider. Keep all follow-up visits. Contact a health care provider if: You have pain that gets worse. Hearing in your affected ear gets worse. You have fluid draining from your ear canal. You have dizziness. You develop a fever. Get help right away if: You develop a severe headache. You completely lose hearing in the affected ear. You have bleeding from your ear canal. You have sudden and severe pain in your ear. These symptoms may represent a serious problem that is an emergency. Do not wait to see if the symptoms will go away. Get medical help right away. Call your local emergency services (911 in the [place] Do not drive yourself to the hospital. Summary Otitis media with effusion (OME) is inflammation and fluid (effusion) in the middle ear without having an ear infection. A swollen eustachian tube can become blocked and cause fluid to collect in the middle ear. Treatment for OME depends on the cause of the condition and the severity of symptoms. Many times, treatment is not needed because the fluid drains on its own in a few weeks. Sometimes OME can lead to hearing problems and recurrent acute ear infections (acute otitis media), which may require treatment. This information is not intended to replace advice given to you by your health care provider. Make sure you discuss any questions you have with your health care provider. Document Revised: 03/14/2022 Document Reviewed: 03/14/2022 [employer] Patient Education 2022 HDmessaging. 05/12/2024 15:56:46 Varicose Veins Varicose Veins Varicose veins are veins that have become enlarged, bulged, and twisted. They most often appear in the legs. What are the causes? This condition is caused by damage to the valves in the vein. These valves help blood return to your heart. When they are damaged and they stop working properly, blood may flow backward and back up in the veins near the skin, causing the veins to get larger and appear twisted. The condition can result from any issue that causes blood to back up, like , prolonged standing, or obesity. What increases the risk? The following factors may make you more likely to develop this condition: Being on your feet a lot. Being . Being overweight. Smoking. Having had a previous deep vein thrombosis or having a thrombotic disorder. Aging. The risk increases with age. Having a condition called Klippel Trenaunay syndrome. What are the signs or symptoms? Symptoms of this condition include: Bulging, twisted, and bluish veins. A feeling of heaviness in your legs. This may be worse at the end of the day. Leg pain. This may be worse at the end of the day. Swelling in the leg. Changes in skin color over the veins. Swelling or pain in the legs can limit your activities. Your symptoms may get worse when you sit or stand for long periods of time. How is this diagnosed? This condition may be diagnosed based on: Your symptoms, family history, activity levels, and lifestyle. A physical exam. You may also have tests, including an ultrasound or X-ray. How is this treated? Treatment for this condition may involve: Avoiding sitting or standing in one position for long periods of time. Wearing compression stockings. These stockings help to prevent blood clots and reduce swelling in the legs. Raising (elevating) the legs when resting. Losing weight. Exercising regularly. If you have persistent symptoms or want to improve the way your varicose veins look, you may choose to have a procedure to close the varicose veins off or to remove them. Nonsurgical treatments to close off the veins include: Sclerotherapy. In this treatment, a solution is injected into a vein to close it off. Laser treatment. The vein is heated with a laser to close it off. Radiofrequency vein ablation. An electrical current produced by radio waves is used to close off the vein. Surgical treatments to remove the veins include: Phlebectomy. In this procedure, the veins are removed through small incisions made over the veins. Vein ligation and stripping. In this procedure, incisions are made over the veins. The veins are then removed after being tied (ligated) with stitches (sutures). Follow these instructions at home: Medicines Take aahw-tls-gkwzsaf and prescription medicines only as told by your health care provider. If you were prescribed an antibiotic medicine, use it as told by your health care provider. Do not stop using the antibiotic even if you start to feel better. Activity Walk as much as possible. Walking increases blood flow. This helps blood return to the heart and takes pressure off your veins. Do not stand or sit in one position for a long period of time. Do not sit with your legs crossed. Avoid sitting for a long time without moving. Get up to take short walks every 1 2 hours. This is important to improve blood flow and breathing. Ask for help if you feel weak or unsteady. Return to your normal activities as told by your health care provider. Ask your health care provider what activities are safe for you. Do exercises as told by your health care provider. General instructions Follow any diet instructions given to you by your health care provider. Elevate your legs at night to above the level of your heart. If you get a cut in the skin over the varicose vein and the vein bleeds: ?Lie down with your leg raised. ?Apply firm pressure to the cut with a clean cloth until the bleeding stops. ?Place a bandage (dressing) on the cut. Drink enough fluid to keep your urine pale yellow. Do not use any products that contain nicotine or tobacco. These products include cigarettes, chewing tobacco, and vaping devices, such as e-cigarettes. If you need help quitting, ask your health care provider. Wear compression stockings as told by your health care provider. Do not wear other kinds of tight clothing around your legs, pelvis, or waist. Keep all follow-up visits. This is important. Contact a health care provider if: The skin around your varicose veins starts to break down. You have more pain, redness, tenderness, or hard swelling over a vein. You are uncomfortable because of pain. You get a cut in the skin over a varicose vein and it will not stop bleeding. Get help right away if: You have chest pain. You have trouble breathing. You have severe leg pain. Summary Varicose veins are veins that have become enlarged, bulged, and twisted. They most often appear in the legs. This condition is caused by damage to the valves in the vein. These valves help blood return to your heart. Treatment for this condition includes frequent movements, wearing compression stockings, losing weight, and exercising regularly. In some cases, procedures are done to close off or remove the veins. Nonsurgical treatments to close off the veins include sclerotherapy, laser therapy, and radiofrequency vein ablation. This information is not intended to replace advice given to you by your health care provider. Make sure you discuss any questions you have with your health care provider. Document Revised: 05/01/2022 Document Reviewed: 05/01/2022 [employer] Patient Education 2022 HDmessaging. 05/12/2024 15:56:37 Fatigue Fatigue If you have fatigue, you feel tired all the time and have a lack of energy or a lack of motivation. Fatigue may make it difficult to start or complete tasks because of exhaustion. Occasional or mild fatigue is often a normal response to activity or life. However, long-term (chronic) or extreme fatigue may be a symptom of a medical condition such as: Depression. Not having enough red blood cells or hemoglobin in the blood (anemia). A problem with a small gland located in the lower front part of the neck (thyroid disorder). Rheumatologic conditions. These are problems related to the body's defense system (immune system). Infections, especially certain viral infections. Fatigue can also lead to negative health outcomes over time. Follow these instructions at home: Medicines Take kjnc-uxp-qrrgqmh and prescription medicines only as told by your health care provider. Take a multivitamin if told by your health care provider. Do not use herbal or dietary supplements unless they are approved by your health care provider. Eating and drinking Avoid heavy meals in the evening. Eat a well-balanced diet, which includes lean proteins, whole grains, plenty of fruits and vegetables, and low-fat dairy products. Avoid eating or drinking too many products with caffeine in them. Avoid alcohol. Drink enough fluid to keep your urine pale yellow. Activity Exercise regularly, as told by your health care provider. Use or practice techniques to help you relax, such as yoga, letitia chi, meditation, or massage therapy. Lifestyle Change situations that cause you stress. Try to keep your work and personal schedules in balance. Do not use recreational or illegal drugs. General instructions Monitor your fatigue for any changes. Go to bed and get up at the same time every day. Avoid fatigue by pacing yourself during the day and getting enough sleep at night. Maintain a healthy weight. Contact a health care provider if: Your fatigue does not get better. You have a fever. You suddenly lose or gain weight. You have headaches. You have trouble falling asleep or sleeping through the night. You feel angry, guilty, anxious, or sad. You have swelling in your legs or another part of your body. Get help right away if: You feel confused, feel like you might faint, or faint. Your vision is blurry or you have a severe headache. You have severe pain in your abdomen, your back, or the area between your waist and hips (pelvis). You have chest pain, shortness of breath, or an irregular or fast heartbeat. You are unable to urinate, or you urinate less than normal. You have abnormal bleeding from the rectum, nose, lungs, nipples, or, if you are female, the vagina. You vomit blood. You have thoughts about hurting yourself or others. These symptoms may be an emergency. Get help right away. Call 911. Do not wait to see if the symptoms will go away. Do not drive yourself to the hospital. Get help right away if you feel like you may hurt yourself or others, or have thoughts about taking your own life. Go to your nearest emergency room or: Call 911. Call the National Suicide Prevention Lifeline at or 127. This is open 24 hours a day. Text the Crisis Text Line at 961192. Summary If you have fatigue, you feel tired all the time and have a lack of energy or a lack of motivation. Fatigue may make it difficult to start or complete tasks because of exhaustion. Long-term (chronic) or extreme fatigue may be a symptom of a medical condition. Exercise regularly, as told by your health care provider. Change situations that cause you stress. Try to keep your work and personal schedules in balance. This information is not intended to replace advice given to you by your health care provider. Make sure you discuss any questions you have with your health care provider. Document Revised: 09/09/2022 Document Reviewed: 09/09/2022 [employer] Patient Education 2022 HDmessaging. 05/12/2024 15:56:35 Community-Acquired Pneumonia, Adult Community-Acquired Pneumonia, Adult Pneumonia is a lung infection that causes inflammation and the buildup of mucus and fluids in the lungs. This may cause coughing and difficulty breathing. Community-acquired pneumonia is pneumonia that develops in people who are not, and have not recently been, in a hospital or other health care facility. Usually, pneumonia develops as a result of an illness that is caused by a virus, such as the common cold and the flu (influenza). It can also be caused by bacteria or fungi. While the common cold and influenza can pass from person to person (are contagious), pneumonia itself is not considered contagious. What are the causes? This condition may be caused by: Viruses. Bacteria. Fungi. What increases the risk? The following factors may make you more likely to develop this condition: Being over age 65 or having certain medical conditions, such as: ?A long-term (chronic) disease, such as: chronic obstructive pulmonary disease (COPD), asthma, heart failure, diabetes, or kidney disease. ?A condition that increases the risk of breathing in (aspirating) mucus and other fluids from your mouth and nose. ?A weakened body defense system (immune system). Having had your spleen removed (splenectomy). The spleen is the organ that helps fight germs and infections. Not cleaning your teeth and gums well (poor dental hygiene). Using tobacco products. Traveling to places where germs that cause pneumonia are present or being near certain animals or animal habitats that could have germs that cause pneumonia. What are the signs or symptoms? Symptoms of this condition include: A dry cough or a wet (productive) cough. A fever, sweating, or chills. Chest pain, especially when breathing deeply or coughing. Fast breathing, difficulty breathing, or shortness of breath. Tiredness (fatigue) and muscle aches. How is this diagnosed? This condition may be diagnosed based on your medical history or a physical exam. You may also have tests, including: Imaging, such as a chest X-ray or lung ultrasound. Tests of: ?The level of oxygen and other gases in your blood. ?Mucus from your lungs (sputum). ?Fluid around your lungs (pleural fluid). ?Your urine. How is this treated? Treatment for this condition depends on many factors, such as the cause of your pneumonia, your medicines, and other medical conditions that you have. For most adults, pneumonia may be treated at home. In some cases, treatment must happen in a hospital and may include: Medicines that are given by mouth (orally) or through an IV, including: ?Antibiotic medicines, if bacteria caused the pneumonia. ?Medicines that kill viruses (antiviral medicines), if a virus caused the pneumonia. Oxygen therapy. Severe pneumonia, although rare, may require the following treatments: Mechanical ventilation.This procedure uses a machine to help you breathe if you cannot breathe well on your own or maintain a safe level of blood oxygen. Thoracentesis. This procedure removes any buildup of pleural fluid to help with breathing. Follow these instructions at home: Medicines Take axlw-yam-aeedxem and prescription medicines only as told by your health care provider. Take cough medicine only if you have trouble sleeping. Cough medicine can prevent your body from removing mucus from your lungs. If you were prescribed antibiotics, take them as told by your health care provider. Do not stop taking the antibiotic even if you start to feel better. Lifestyle Do not drink alcohol. Do not use any products that contain nicotine or tobacco. These products include cigarettes, chewing tobacco, and vaping devices, such as e-cigarettes. If you need help quitting, ask your health care provider. Eat a healthy diet. This includes plenty of vegetables, fruits, whole grains, low-fat dairy products, and lean protein. General instructions Rest a lot and get at least 8 hours of sleep each night. Sleep in a partly upright position at night. Place a few pillows under your head or sleep in a reclining chair. Return to your normal activities as told by your health care provider. Ask your health care provider what activities are safe for you. Drink enough fluid to keep your urine pale yellow. This helps to thin the mucus in your lungs. If your throat is sore, gargle with a mixture of salt and water 3 4 times a day or as needed. To make salt water, completely dissolve 1 tsp (3 6 g) of salt in 1 cup (237 mL) of warm water. Keep all follow-up visits. How is this prevented? You can lower your risk of developing community-acquired pneumonia by: Getting the pneumonia vaccine. There are different types and schedules of pneumonia vaccines. Ask your health care provider which option is best for you. Consider getting the pneumonia vaccine if: ?You are older than 65 years of age. ?You are 19 65 years of age and are receiving cancer treatment, have chronic lung disease, or have other medical conditions that affect your immune system. Ask your health care provider if this applies to you. Getting your influenza vaccine every year. Ask your health care provider which type of vaccine is best for you. Getting regular dental checkups. Washing your hands often with soap and water for at least 20 seconds. If soap and water are not available, use hand internet assessor. Contact a health care provider if: You have a fever. You have trouble sleeping because you cannot control your cough with cough medicine. Get help right away if: Your shortness of breath becomes worse. Your chest pain increases. Your sickness becomes worse, especially if you are an older adult or have a weak immune system. You cough up blood. These symptoms may be an emergency. Get help right away. Call 911. Do not wait to see if the symptoms will go away. Do not drive yourself to the hospital. Summary Pneumonia is an infection of the lungs. Community-acquired pneumonia develops in people who have not been in the hospital. It can be caused by bacteria, viruses, or fungi. This condition may be treated with antibiotics or antiviral medicines. Severe pneumonia may require a hospital stay and treatment to help with breathing. This information is not intended to replace advice given to you by your health care provider. Make sure you discuss any questions you have with your health care provider. Document Revised: 01/15/2023 Document Reviewed: 01/15/2023 [employer] Patient Education 2022 HDmessaging. Follow Up Care 05/05/2024 10:40:01 With:Esvin AVILES, ROSA MARIA Hilton, [facility] Address: [address], [address] [address]- When:Within 2 Week(s) Comments:ear check , labs reviewed [facility] 04-14-2024 Hospital Discharge instructions Patient Education 04/14/2024 10:30:43 Upper Respiratory Infection, Adult Upper Respiratory Infection, Adult An upper respiratory infection (URI) is a common viral infection of the nose, throat, and upper air passages that lead to the lungs. The most common type of URI is the common cold. URIs usually get better on their own, without medical treatment. What are the causes? A URI is caused by a virus. You may catch a virus by: Breathing in droplets from an infected person's cough or sneeze. Touching something that has been exposed to the virus (is contaminated) and then touching your mouth, nose, or eyes. What increases the risk? You are more likely to get a URI if: You are very young or very old. You have close contact with others, such as at work, school, or a health care facility. You smoke. You have long-term (chronic) heart or lung disease. You have a weakened disease-fighting system (immune system). You have nasal allergies or asthma. You are experiencing a lot of stress. You have poor nutrition. What are the signs or symptoms? A URI usually involves some of the following symptoms: Runny or stuffy (congested) nose. Cough. Sneezing. Sore throat. Headache. Fatigue. Fever. Loss of appetite. Pain in your forehead, behind your eyes, and over your cheekbones (sinus pain). Muscle aches. Redness or irritation of the eyes. Pressure in the ears or face. How is this diagnosed? This condition may be diagnosed based on your medical history and symptoms, and a physical exam. Your health care provider may use a swab to take a mucus sample from your nose (nasal swab). This sample can be tested to determine what virus is causing the illness. How is this treated? URIs usually get better on their own within 7 10 days. Medicines cannot cure URIs, but your health care provider may recommend certain medicines to help relieve symptoms, such as: Jtia-xob-clmlwik cold medicines. Cough suppressants. Coughing is a type of defense against infection that helps to clear the respiratory system, so take these medicines only as recommended by your health care provider. Fever-reducing medicines. Follow these instructions at home: Activity Rest as needed. If you have a fever, stay home from work or school until your fever is gone or until your health care provider says your URI cannot spread to other people (is no longer contagious). Your health care provider may have you wear a face mask to prevent your infection from spreading. Relieving symptoms Gargle with a mixture of salt and water 3 4 times a day or as needed. To make salt water, completely dissolve 1 tsp (3 6 g) of salt in 1 cup (237 mL) of warm water. Use a cool-mist humidifier to add moisture to the air. This can help you breathe more easily. Eating and drinking Drink enough fluid to keep your urine pale yellow. Eat soups and other clear broths. General instructions Take yepn-cye-khyfbnv and prescription medicines only as told by your health care provider. These include cold medicines, fever reducers, and cough suppressants. Do not use any products that contain nicotine or tobacco. These products include cigarettes, chewing tobacco, and vaping devices, such as e-cigarettes. If you need help quitting, ask your health care provider. Stay away from secondhand smoke. Stay up to date on all immunizations, including the yearly (annual) flu vaccine. Keep all follow-up visits. This is important. How to prevent the spread of infection to others URIs can be contagious. To prevent the infection from spreading: Wash your hands with soap and water for at least 20 seconds. If soap and water are not available, use hand internet assessor. Avoid touching your mouth, face, eyes, or nose. Cough or sneeze into a tissue or your sleeve or elbow instead of into your hand or into the air. Contact a health care provider if: You are getting worse instead of better. You have a fever or chills. Your mucus is brown or red. You have yellow or brown discharge coming from your nose. You have pain in your face, especially when you bend forward. You have swollen neck glands. You have pain while swallowing. You have white areas in the back of your throat. Get help right away if: You have shortness of breath that gets worse. You have severe or persistent: ?Headache. ?Ear pain. ?Sinus pain. ?Chest pain. You have chronic lung disease along with any of the following: ?Making high-pitched whistling sounds when you breathe, most often when you breathe out (wheezing). ?Prolonged cough (more than 14 days). ?Coughing up blood. ?A change in your usual mucus. You have a stiff neck. You have changes in your: ?Vision. ?Hearing. ?Thinking. ?Mood. These symptoms may be an emergency. Get help right away. Call 911. Do not wait to see if the symptoms will go away. Do not drive yourself to the hospital. Summary An upper respiratory infection (URI) is a common infection of the nose, throat, and upper air passages that lead to the lungs. A URI is caused by a virus. URIs usually get better on their own within 7 10 days. Medicines cannot cure URIs, but your health care provider may recommend certain medicines to help relieve symptoms. This information is not intended to replace advice given to you by your health care provider. Make sure you discuss any questions you have with your health care provider. Document Revised: 06/19/2022 Document Reviewed: 06/19/2022 [employer] Patient Education 2022 HDmessaging. 04/14/2024 10:30:41 Acute Bronchitis, Adult Acute Bronchitis, Adult Acute bronchitis is sudden inflammation of the main airways (bronchi) that come off the windpipe (trachea) in the lungs. The swelling causes the airways to get smaller and make more mucus than normal. This can make it hard to breathe and can cause coughing or noisy breathing (wheezing). Acute bronchitis may last several weeks. The cough may last longer. Allergies, asthma, and exposure to smoke may make the condition worse. What are the causes? This condition can be caused by germs and by substances that irritate the lungs, including: Cold and flu viruses. The most common cause of this condition is the virus that causes the common cold. Bacteria. This is less common. Breathing in substances that irritate the lungs, including: ?Smoke from cigarettes and other forms of tobacco. ?Dust and pollen. ?Fumes from household cleaning products, gases, or burned fuel. ?Indoor or outdoor air pollution. What increases the risk? The following factors may make you more likely to develop this condition: A weak body's defense system, also called the immune system. A condition that affects your lungs and breathing, such as asthma. What are the signs or symptoms? Common symptoms of this condition include: Coughing. This may bring up clear, yellow, or green mucus from your lungs (sputum). Wheezing. Runny or stuffy nose. Having too much mucus in your lungs (chest congestion). Shortness of breath. Aches and pains, including sore throat or chest. How is this diagnosed? This condition is usually diagnosed based on: Your symptoms and medical history. A physical exam. You may also have other tests, including tests to rule out other conditions, such as pneumonia. These tests include: A test of lung function. Test of a mucus sample to look for the presence of bacteria. Tests to check the oxygen level in your blood. Blood tests. Chest X-ray. How is this treated? Most cases of acute bronchitis clear up over time without treatment. Your health care provider may recommend: Drinking more fluids to help thin your mucus so it is easier to cough up. Taking inhaled medicine (inhaler) to improve air flow in and out of your lungs. Using a vaporizer or a humidifier. These are machines that add water to the air to help you breathe better. Taking a medicine that thins mucus and clears congestion (expectorant). Taking a medicine that prevents or stops coughing (cough suppressant). It is not common to take an antibiotic medicine for this condition. Follow these instructions at home: Take ljhb-hse-ihweqve and prescription medicines only as told by your health care provider. Use an inhaler, vaporizer, or humidifier as told by your health care provider. Take two teaspoons (10 mL) of honey at bedtime to lessen coughing at night. Drink enough fluid to keep your urine pale yellow. Do not use any products that contain nicotine or tobacco. These products include cigarettes, chewing tobacco, and vaping devices, such as e-cigarettes. If you need help quitting, ask your health care provider. Get plenty of rest. Return to your normal activities as told by your health care provider. Ask your health care provider what activities are safe for you. Keep all follow-up visits. This is important. How is this prevented? To lower your risk of getting this condition again: Wash your hands often with soap and water for at least 20 seconds. If soap and water are not available, use hand internet assessor. Avoid contact with people who have cold symptoms. Try not to touch your mouth, nose, or eyes with your hands. Avoid breathing in smoke or chemical fumes. Breathing smoke or chemical fumes will make your condition worse. Get the flu shot every year. Contact a health care provider if: Your symptoms do not improve after 2 weeks. You have trouble coughing up the mucus. Your cough keeps you awake at night. You have a fever. Get help right away if you: Cough up blood. Feel pain in your chest. Have severe shortness of breath. Faint or keep feeling like you are going to faint. Have a severe headache. Have a fever or chills that get worse. These symptoms may represent a serious problem that is an emergency. Do not wait to see if the symptoms will go away. Get medical help right away. Call your local emergency services (911 in the [place] Do not drive yourself to the hospital. Summary Acute bronchitis is inflammation of the main airways (bronchi) that come off the windpipe (trachea) in the lungs. The swelling causes the airways to get smaller and make more mucus than normal. Drinking more fluids can help thin your mucus so it is easier to cough up. Take yuqd-wkl-dlybgdj and prescription medicines only as told by your health care provider. Do not use any products that contain nicotine or tobacco. These products include cigarettes, chewing tobacco, and vaping devices, such as e-cigarettes. If you need help quitting, ask your health care provider. Contact a health care provider if your symptoms do not improve after 2 weeks. This information is not intended to replace advice given to you by your health care provider. Make sure you discuss any questions you have with your health care provider. Document Revised: 02/27/2023 Document Reviewed: 03/20/2022 [employer] Patient Education 2022 HDmessaging. 04/14/2024 10:30:39 Cancer Screening for Women Cancer Screening for Women A cancer screening is a test or exam that checks for cancer. Your health care provider will recommend specific cancer screenings based on your age, medical history (including risk factors), and family history of cancer. Work with your health care provider to create a cancer screening schedule that protects your health. Who should have screening? All women should be considered for screening of certain cancers, including breast cancer, cervical cancer, colorectal cancer, and skin cancer. Your health care provider may recommend screenings for other types of cancer if: You had cancer before. You have a family member with cancer. You have abnormal genes that could increase the risk of cancer. You have risk factors for certain cancers, such as current or past use of tobacco products, or being overweight. When you should be screened for cancer depends on: Your age. Your medical history and your family's medical history. Certain lifestyle factors, such as smoking or other use of tobacco products. Environmental exposure, such as to asbestos. How is screening done? Breast cancer Breast cancer screening is done with a test that takes images of breast tissue (mammogram). Here are some screening guidelines for women at average risk: When you are age 40 44, you will be given the choice to start having mammograms. When you are age 45 54, you should have a mammogram every year. You may start having mammograms before age 45 if you have risk factors for breast cancer, such as having an immediate family member with breast cancer. At age 55 or older, you should have a mammogram every 1 2 years for as long as you are in good health and have a life expectancy of 10 years or longer. It is important to know what your breasts look and feel like so you can report any changes to your health care provider. Cervical cancer All women at average risk should be considered for screening for cervical cancer starting no later than age 25 and continuing until age 65. Screening should not begin earlier than age 21. You will have tests every 3 5 years, depending on your results and the type of screening test. Talk with your health care provider about which screening test is right for you and how often you should be screened. ?Cervical cancer screening is done with an HPV (human papillomavirus) test to identify the virus that causes cervical cancer. To perform the test, a health care provider takes a swab of cells from yourcervix during a pelvic exam. This test may be performed along with a Pap test. This testchecks for abnormalities in the lowest part of the uterus (cervix). ?If you have had the HPV vaccine, you will still be screened for cervical cancer and follow normal screening recommendations. You do not need to be screened for cervical cancer if any of the following apply to you: You are older than age 65 and you have had normal screening tests in the past 10 years with no serious cervical precancer or cancer in the last 25 years. Your cervix and uterus have been removed, and you have never had cervical cancer or abnormal cells that could become cancer (precancerous cells). Colorectal cancer All adults should have screenings starting at age 45 and continuing until age 75. Your health care provider may recommend screening before age 45. You will have tests every 1 10 years, depending on your results and the type of screening test. People at increased risk should start screening at an earlier age. Talk with your health care provider about which screening test is right for you and how often you should be screened. Colorectal cancer screening looks for cancer or for growths called polyps that often form before cancer starts. Tests to look for cancer or polyps include: Colonoscopy or flexible sigmoidoscopy. For these procedures, a flexible tube with a small camera is inserted into the rectum. CT colonography. This test uses X-rays and a contrast dye to check the colon for polyps. If a polyp is found, you may need to have a colonoscopy so the polyp can be located and removed. Tests to look for cancer in the stool (feces) include: Guaiac-based fecal occult blood test (FOBT). This test can find blood in stool. It can be done at home with a kit. Fecal immunochemical test (FIT). This test can find blood in stool. For this test, you will need to collect stool samples at home. Stool DNA test. This test looks for blood in stool and any changes in DNA that can lead to colon cancer. For this test, you will need to collect a stool sample at home and send it to a lab. Endometrial cancer There is no standard screening test for endometrial cancer, and women at average risk do not routinely need to have this screening. Talk with your health care provider about whether screening is right for you. If it is, this screening is performed through: Endometrial tissue biopsy. This tests a sample of tissue taken from the lining of the uterus. Vaginal ultrasound. If you are at increased risk for endometrial cancer, you may need to have these tests more often than normal. You are at increased risk if: You have a family history of ovarian, uterine, or colon cancer. You are taking tamoxifen, a medicine used to treat breast cancer. You have certain types of colon cancer. If you have reached menopause, it is especially important to talk with your health care provider about any vaginal bleeding or spotting. Screening for endometrial cancer is not recommended for women who do not have symptoms of the cancer, such as vaginal bleeding. Lung cancer Lung cancer screening is done with a CT scan that looks for abnormal changes in the lungs. Discuss lung cancer screening with your health care provider if you are 50 80 years old and if any of the following apply to you: You currently smoke. You used to smoke heavily. You have a smoking history of 1 pack of cigarettes a day for 20 years or 2 packs a day for 10 years. You have quit smoking within the past 15 years. You may need to be screened every year if you smoke heavily or if you used to smoke. Skin cancer Skin cancer screening is done by checking the skin for unusual moles or spots and any changes in existing moles. Your health care provider should check your skin for signs of skin cancer at every physical exam. You should check your skin every month and tell your health care provider right away if anything looks unusual. Women with a rcygcr-wcio-mrlizl risk for skin cancer may want to see a veterans services specialist (partner cco) for an annual body check. What are the benefits of screening? Cancer screening is done to look for cancer in the very early stages, before it spreads and becomes harder to treat and before you would start to notice symptoms. Finding cancer early improves the chances of successful treatment. It may save your life. Where to find more information [place] [employer]: www.cancer.org Centers for Disease Control and Prevention: www.cdc.gov National Cancer [place]: www.cancer.gov U.[place]. Department of Health and Human Services: www.womenshealth.gov Contact a health care provider if: You have concerns about any signs or symptoms of cancer. These may include: Skin problems. You may have: ?Moles of an unusual shape or color. ?Changes in existing moles. ?A sore on your skin that does not heal. Tiredness (fatigue) that does not go away. Losing weight without trying. Blood in your urine or stool. Problems with coughing or breathing. These may include: ?Coughing or trouble breathing that does not go away. ?Coughing up blood. Lumps or other changes in your breasts. Vaginal bleeding, spotting, or changes in your periods. Frequent pain or cramping in your abdomen. Summary Your health care provider will recommend specific cancer screenings based on your age, medical history, and family history of cancer. Work with your health care provider to create a cancer screening schedule that protects your health. Finding cancer early improves the chances of successful treatment. It may save your life. Contact a health care provider if you have concerns about any signs or symptoms of cancer. This information is not intended to replace advice given to you by your health care provider. Make sure you discuss any questions you have with your health care provider. Document Revised: 04/15/2022 Document Reviewed: 10/13/2020 [employer] Patient Education 2022 [email or web address]. Follow Up Care 04/12/2024 08:09:12 With:Vilma John [facility], MED Address: [address], [address] [place] [id number]- When:Within 1 Week(s) [facility] 02-06-2024 Hospital Discharge instructions Patient Education 02/06/2024 11:57:16 Shoulder Pain Shoulder Pain Many things can cause shoulder pain, including: An injury to the shoulder. Overuse of the shoulder. Arthritis. The source of the pain can be: Inflammation. An injury to the shoulder joint. An injury to a tendon, ligament, or bone. Follow these instructions at home: Pay attention to changes in your symptoms. Let your health care provider know about them. Follow these instructions to relieve your pain. If you have a sling: Wear the sling as told by your health care provider. Remove it only as told by your health care provider. Loosen the sling if your fingers tingle, become numb, or turn cold and blue. Keep the sling clean. If the sling is not waterproof: ?Do not let it get wet. Remove it to shower or bathe. Move your arm as little as possible, but keep your hand moving to prevent swelling. Managing pain, stiffness, and swelling If directed, put ice on the painful area: ?Put ice in a plastic bag. ?Place a towel between your skin and the bag. ?Leave the ice on for 20 minutes, 2 3 times per day. Stop applying ice if it does not help with the pain. Squeeze a soft ball or a foam pad as much as possible. This helps to keep the shoulder from swelling. It also helps to strengthen the arm. General instructions Take jtxd-rzd-qgoymku and prescription medicines only as told by your health care provider. Keep all follow-up visits as told by your health care provider. This is important. Contact a health care provider if: Your pain gets worse. Your pain is not relieved with medicines. New pain develops in your arm, hand, or fingers. Get help right away if: Your arm, hand, or fingers: ?Tingle. ?Become numb. ?Become swollen. ?Become painful. ?Turn white or blue. Summary Shoulder pain can be caused by an injury, overuse, or arthritis. Pay attention to changes in your symptoms. Let your health care provider know about them. This condition may be treated with a sling, ice, and pain medicines. Contact your health care provider if the pain gets worse or new pain develops. Get help right away if your arm, hand, or fingers tingle or become numb, swollen, or painful. Keep all follow-up visits as told by your health care provider. This is important. This information is not intended to replace advice given to you by your health care provider. Make sure you discuss any questions you have with your health care provider. Document Revised: 08/02/2022 Document Reviewed: 08/02/2022 [employer] Patient Education 2022 [employer] 02/06/2024 11:57:02 Degenerative Disk Disease Degenerative Disk Disease Degenerative disk disease is a condition caused by changes that occur in the spinal disks as a person ages. Spinal disks are soft and compressible disks located between the bones of your spine (vertebrae). These disks act like shock absorbers. Degenerative disk disease can affect the whole spine. However, the neck and lower back are most often affected. Many changes can occur in the spinal disks with aging, such as: The spinal disks may dry and shrink. Small tears may occur in the tough, outer covering of the disk (annulus). The disk space may become smaller due to loss of water. Abnormal growths in the bone (spurs) may occur. This can put pressure on the nerve roots exiting the spinal canal, causing pain. The spinal canal may become narrowed. What are the causes? This condition may be caused by: Normal degeneration with age. Injuries. Certain activities and sports that cause damage. What increases the risk? The following factors may make you more likely to develop this condition: Being overweight. Having a family history of degenerative disk disease. Smoking and use of products that contain nicotine and tobacco. Sudden injury. Doing work that requires heavy lifting. What are the signs or symptoms? Symptoms of this condition include: Pain that varies in intensity. Some people have no pain, while others have severe pain. The location of the pain depends on the part of your backbone that is affected. You may have: ?Pain in your neck or arm if a disk in your neck area is affected. ?Pain in your back, buttocks, or legs if a disk in your lower back is affected. Pain that becomes worse while bending or reaching up, or with twisting movements. Pain that may start gradually and worsen as time passes. It may also start after a major or minor injury. Numbness or tingling in the arms or legs. How is this diagnosed? This condition may be diagnosed based on: Your symptoms and medical history. A physical exam. Imaging tests, including: ?X-ray of the spine. ?CT scan. ?MRI. How is this treated? This condition may be treated with: Medicines. Injection of steroids into the back. Rehabilitation exercises. These activities aim to strengthen muscles in your back and abdomen to better support your spine. If treatments do not help to relieve your symptoms or you have severe pain, you may need surgery. Follow these instructions at home: Medicines Take yazk-pit-fssnfmm and prescription medicines only as told by your health care provider. Ask your health care provider if the medicine prescribed to you: ?Requires you to avoid driving or using machinery. ?Can cause constipation. You may need to take these actions to prevent or treat constipation: ?Drink enough fluid to keep your urine pale yellow. ?Take qqdw-wpr-fpbhrjv or prescription medicines. ?Eat foods that are high in fiber, such as beans, whole grains, and fresh fruits and vegetables. ?Limit foods that are high in fat and processed sugars, such as fried or sweet foods. Activity Rest as told by your health care provider. Avoid sitting for a long time without moving. Get up to take short walks every 1 2 hours. This is important to improve blood flow and breathing. Ask for help if you feel weak or unsteady. Return to your normal activities as told by your health care provider. Ask your health care provider what activities are safe for you. Perform relaxation exercises as told by your health care provider. Maintain good posture. Do not lift anything that is heavier than 10 lb (4.5 kg), or the limit that you are told, until your health care provider says that it is safe. Follow proper lifting and walking techniques as told by your health care provider. Managing pain, stiffness, and swelling If directed, put ice on the painful area. Icing can help to relieve pain. To do this: ?Put ice in a plastic bag. ?Place a towel between your skin and the bag. ?Leave the ice on for 20 minutes, 2 3 times a day. ?Remove the ice if your skin turns bright red. This is very important. If you cannot feel pain, heat, or cold, you have a greater risk of damage to the area. If directed, apply heat to the painful area as often as told by your health care provider. Heat can reduce the stiffness of your muscles. Use the heat source that your health care provider recommends, such as a moist heat pack or a heating pad. ?Place a towel between your skin and the heat source. ?Leave the heat on for 20 30 minutes. ?Remove the heat if your skin turns bright red. This is especially important if you are unable to feel pain, heat, or cold. You may have a greater risk of getting burned. General instructions Change your sitting, standing, and sleeping habits as told by your health care provider. Avoid sitting in the same position for long periods of time. Change positions frequently. Lose weight or maintain a healthy weight as told by your health care provider. Do not use any products that contain nicotine or tobacco, such as cigarettes, e-cigarettes, and chewing tobacco. If you need help quitting, ask your health care provider. Wear supportive footwear. Keep all follow-up visits. This is important. This may include visits for physical therapy. Contact a health care provider if you: Have pain that does not go away within 1 4 weeks. Lose your appetite. Lose weight without trying. Get help right away if you: Have severe pain. Notice weakness in your arms, hands, or legs. Begin to lose control of your bladder or bowel movements. Have fevers or night sweats. Summary Degenerative disk disease is a condition caused by changes that occur in the spinal disks as a person ages. This condition can affect the whole spine. However, the neck and lower back are most often affected. Take uquz-fof-byniwoe and prescription medicines only as told by your health care provider. This information is not intended to replace advice given to you by your health care provider. Make sure you discuss any questions you have with your health care provider. Document Revised: 03/01/2021 Document Reviewed: 03/01/2021 [employer] Patient Education 2022 [email or web address]. 02/06/2024 11:56:38 Major Depressive Disorder, Adult Major Depressive Disorder, Adult Major depressive disorder (MDD) is a mental health condition. It may also be called clinical depression or unipolar depression. MDD causes symptoms of sadness, hopelessness, and loss of interest in things. These symptoms last most of the day, almost every day, for 2 weeks. MDD can also cause physical symptoms. It can interfere with relationships and with everyday activities, such as work, school, and activities that are usually pleasant. MDD may be mild, moderate, or severe. It may be single-episode MDD, which happens once, or recurrent MDD, which may occur multiple times. What are the causes? The exact cause of this condition is not known. MDD is most likely caused by a combination of things, which may include: Your personality traits. [place] or conditioned behaviors or thoughts or feelings that reinforce negativity. Any alcohol or substance misuse. Long-term (chronic) physical or mental health illness. Going through a traumatic experience or major life changes. What increases the risk? The following factors may make someone more likely to develop MDD: A family history of depression. Being a woman. Troubled family relationships. Abnormally low levels of certain brain chemicals. Traumatic or painful events in childhood, especially abuse or loss of a parent. A lot of stress from life experiences, such as poor living conditions or discrimination. Chronic physical illness or other mental health disorders. What are the signs or symptoms? The main symptoms of MDD usually include: Constant depressed or irritable mood. A loss of interest in things and activities. Other symptoms include: Sleeping or eating too much or too little. Unexplained weight gain or weight loss. Tiredness or low energy. Being agitated, restless, or weak. Feeling hopeless, worthless, or guilty. Trouble thinking clearly or making decisions. Thoughts of suicide or thoughts of harming others. Isolating oneself or avoiding other people or activities. Trouble completing tasks, work, or any normal obligations. Severe symptoms of this condition may include: Psychotic depression.This may include false beliefs, or delusions. It may also include seeing, hearing, tasting, smelling, or feeling things that are not real (hallucinations). Chronic depression or persistent depressive disorder. This is low-level depression that lasts for at least 2 years. Melancholic depression, or feeling extremely sad and hopeless. Catatonic depression, which includes trouble speaking and trouble moving. How is this diagnosed? This condition may be diagnosed based on: Your symptoms. Your medical and mental health history. You may be asked questions about your lifestyle, including any drug and alcohol use. A physical exam. Blood tests to rule out other conditions. MDD is confirmed if you have the following symptoms most of the day, nearly every day, in a 2-week period: Either a depressed mood or loss of interest. At least four other MDD symptoms. How is this treated? This condition is usually treated by mental health professionals, such as psychologists, psychiatrists, and clinical social workers. You may need more than one type of treatment. Treatment may include: Psychotherapy, also called talk therapy or counseling. Types of psychotherapy include: ?Cognitive behavioral therapy (CBT). This teaches you to recognize unhealthy feelings, thoughts, and behaviors, and replace them with positive thoughts and actions. ?Interpersonal therapy (IPT). This helps you to improve the way you communicate with others or relate to them. ?Family therapy. This treatment includes members of your family. Medicines to treat anxiety and depression. These medicines help to balance the brain chemicals that affect your emotions. Lifestyle changes. You may be asked to: ?Limit alcohol use and avoid drug use. ?Get regular exercise. ?Get plenty of sleep. ?Make healthy eating choices. ?Spend more time outdoors. Brain stimulation. This may be done if symptoms are very severe and other treatments have not worked. Examples of this treatment are electroconvulsive therapy and transcranial magnetic stimulation. Follow these instructions at home: Activity Exercise regularly and spend time outdoors. Find activities that you enjoy doing, and make time to do them. Find healthy ways to manage stress, such as: ?Meditation or deep breathing. ?Spending time in nature. ?Journaling. Return to your normal activities as told by your health care provider. Ask your health care provider what activities are safe for you. Alcohol and drug use If you drink alcohol: ?Limit how much you use to: ?0 1 drink a day for women who are not . ?0 2 drinks a day for men. ?Be aware of how much alcohol is in your drink. In the [place] one drink equals one 12 oz bottle of beer (355 mL), one 5 oz glass of wine (148 mL), or one 1 oz glass of hard liquor (44 mL). ?Discuss your alcohol use with your health care provider. Alcohol can affect any antidepressant medicines you are taking. Discuss any drug use with your health care provider. General instructions Take mash-kdz-wgiodgf and prescription medicines only as told by your health care provider. Eat a healthy diet and get plenty of sleep. Consider joining a support group. Your health care provider may be able to recommend one. Keep all follow-up visits as told by your health care provider. This is important. Where to find more information National [place] on Mental Illness: www.julia.org [place] National [place] of Mental Health: www.nimh.nih.gov Contact a health care provider if: Your symptoms get worse. You develop new symptoms. Get help right away if: You self-harm. You have serious thoughts about hurting yourself or others. You hallucinate. If you ever feel like you may hurt yourself or others, or have thoughts about taking your own life, get help right away. Go to your nearest emergency department or: Call your local emergency services (380 in the [place] Call a suicide crisis helpline, such as the National Suicide Prevention Lifeline at or 774 in the [place] This is open 24 hours a day in the [place] Text the Crisis Text Line at 493536 (in the [place] Summary Major depressive disorder (MDD) is a mental health condition. MDD causes symptoms of sadness, hopelessness, and loss of interest in things. These symptoms last most of the day, almost every day, for 2 weeks. The symptoms of MDD can interfere with relationships and with everyday activities. Treatments and support are available for people who develop MDD. You may need more than one type of treatment. Get help right away if you have serious thoughts about hurting yourself or others. This information is not intended to replace advice given to you by your health care provider. Make sure you discuss any questions you have with your health care provider. Document Revised: 06/12/2022 Document Reviewed: 10/28/2020 [employer] Patient Education 2022 [employer]. 02/06/2024 11:56:36 Hypothyroidism Hypothyroidism Hypothyroidism is when the thyroid gland does not make enough of certain hormones. This is called an underactive thyroid. The thyroid gland is a small gland located in the lower front part of the neck, just in front of the windpipe (trachea). This gland makes hormones that help control how the body uses food for energy (metabolism) as well as how the heart and brain function. These hormones also play a role in keeping your bones strong. When the thyroid is underactive, it produces too little of the hormones thyroxine (T4) and triiodothyronine (T3). What are the causes? This condition may be caused by: Izzy's disease. This is a disease in which the body's disease-fighting system (immune system) attacks the thyroid gland. This is the most common cause. Viral infections. . Certain medicines. defects. Problems with a gland in the center of the brain (pituitary gland). Lack of enough iodine in the diet. Other causes may include: Past radiation treatments to the head or neck for cancer. Past treatment with radioactive iodine. Past exposure to radiation in the environment. Past surgical removal of part or all of the thyroid. What increases the risk? You are more likely to develop this condition if: You are female. You have a family history of thyroid conditions. You use a medicine called lithium. You take medicines that affect the immune system (immunosuppressants). What are the signs or symptoms? Common symptoms of this condition include: Not being able to tolerate cold. Feeling as though you have no energy (lethargy). Lack of appetite. Constipation. Sadness or depression. Weight gain that is not explained by a change in diet or exercise habits. Menstrual irregularity. Dry skin, coarse hair, or brittle nails. Other symptoms may include: Muscle pain. Slowing of thought processes. Poor memory. How is this diagnosed? This condition may be diagnosed based on: Your symptoms, your medical history, and a physical exam. Blood tests. You may also have imaging tests, such as an ultrasound or MRI. How is this treated? This condition is treated with medicine that replaces the thyroid hormones that your body does not make. After you begin treatment, it may take several weeks for symptoms to go away. Follow these instructions at home: Take vpop-dcu-ywkripi and prescription medicines only as told by your health care provider. If you start taking any new medicines, tell your health care provider. Keep all follow-up visits as told by your health care provider. This is important. ?As your condition improves, your dosage of thyroid hormone medicine may change. ?You will need to have blood tests regularly so that your health care provider can monitor your condition. Contact a health care provider if: Your symptoms do not get better with treatment. You are taking thyroid hormone replacement medicine and you: ?Sweat a lot. ?Have tremors. ?Feel anxious. ?Lose weight rapidly. ?Cannot tolerate heat. ?Have emotional swings. ?Have diarrhea. ?Feel weak. Get help right away if: You have chest pain. You have an irregular heartbeat. You have a rapid heartbeat. You have difficulty breathing. These symptoms may be an emergency. Get help right away. Call 911. Do not wait to see if the symptoms will go away. Do not drive yourself to the hospital. Summary Hypothyroidism is when the thyroid gland does not make enough of certain hormones (it is underactive). When the thyroid is underactive, it produces too little of the hormones thyroxine (T4) and triiodothyronine (T3). The most common cause is Izzy's disease, a disease in which the body's disease-fighting system (immune system) attacks the thyroid gland. The condition can also be caused by viral infections, medicine, , or past radiation treatment to the head or neck. Symptoms may include weight gain, dry skin, constipation, feeling as though you do not have energy, and not being able to tolerate cold. This condition is treated with medicine to replace the thyroid hormones that your body does not make. This information is not intended to replace advice given to you by your health care provider. Make sure you discuss any questions you have with your health care provider. Document Revised: 11/19/2022 Document Reviewed: 11/19/2022 [employer] Patient Education 2022 [employer]. [facility] 01-15-2024 Hospital Discharge instructions Patient Education 01/15/2024 18:54:24 Major Depressive Disorder, Adult Major Depressive Disorder, Adult Major depressive disorder (MDD) is a mental health condition. It may also be called clinical depression or unipolar depression. MDD causes symptoms of sadness, hopelessness, and loss of interest in things. These symptoms last most of the day, almost every day, for 2 weeks. MDD can also cause physical symptoms. It can interfere with relationships and with everyday activities, such as work, school, and activities that are usually pleasant. MDD may be mild, moderate, or severe. It may be single-episode MDD, which happens once, or recurrent MDD, which may occur multiple times. What are the causes? The exact cause of this condition is not known. MDD is most likely caused by a combination of things, which may include: Your personality traits. [place] or conditioned behaviors or thoughts or feelings that reinforce negativity. Any alcohol or substance misuse. Long-term (chronic) physical or mental health illness. Going through a traumatic experience or major life changes. What increases the risk? The following factors may make someone more likely to develop MDD: A family history of depression. Being a woman. Troubled family relationships. Abnormally low levels of certain brain chemicals. Traumatic or painful events in childhood, especially abuse or loss of a parent. A lot of stress from life experiences, such as poor living conditions or discrimination. Chronic physical illness or other mental health disorders. What are the signs or symptoms? The main symptoms of MDD usually include: Constant depressed or irritable mood. A loss of interest in things and activities. Other symptoms include: Sleeping or eating too much or too little. Unexplained weight gain or weight loss. Tiredness or low energy. Being agitated, restless, or weak. Feeling hopeless, worthless, or guilty. Trouble thinking clearly or making decisions. Thoughts of suicide or thoughts of harming others. Isolating oneself or avoiding other people or activities. Trouble completing tasks, work, or any normal obligations. Severe symptoms of this condition may include: Psychotic depression.This may include false beliefs, or delusions. It may also include seeing, hearing, tasting, smelling, or feeling things that are not real (hallucinations). Chronic depression or persistent depressive disorder. This is low-level depression that lasts for at least 2 years. Melancholic depression, or feeling extremely sad and hopeless. Catatonic depression, which includes trouble speaking and trouble moving. How is this diagnosed? This condition may be diagnosed based on: Your symptoms. Your medical and mental health history. You may be asked questions about your lifestyle, including any drug and alcohol use. A physical exam. Blood tests to rule out other conditions. MDD is confirmed if you have the following symptoms most of the day, nearly every day, in a 2-week period: Either a depressed mood or loss of interest. At least four other MDD symptoms. How is this treated? This condition is usually treated by mental health professionals, such as psychologists, psychiatrists, and clinical social workers. You may need more than one type of treatment. Treatment may include: Psychotherapy, also called talk therapy or counseling. Types of psychotherapy include: ?Cognitive behavioral therapy (CBT). This teaches you to recognize unhealthy feelings, thoughts, and behaviors, and replace them with positive thoughts and actions. ?Interpersonal therapy (IPT). This helps you to improve the way you communicate with others or relate to them. ?Family therapy. This treatment includes members of your family. Medicines to treat anxiety and depression. These medicines help to balance the brain chemicals that affect your emotions. Lifestyle changes. You may be asked to: ?Limit alcohol use and avoid drug use. ?Get regular exercise. ?Get plenty of sleep. ?Make healthy eating choices. ?Spend more time outdoors. Brain stimulation. This may be done if symptoms are very severe and other treatments have not worked. Examples of this treatment are electroconvulsive therapy and transcranial magnetic stimulation. Follow these instructions at home: Activity Exercise regularly and spend time outdoors. Find activities that you enjoy doing, and make time to do them. Find healthy ways to manage stress, such as: ?Meditation or deep breathing. ?Spending time in nature. ?Journaling. Return to your normal activities as told by your health care provider. Ask your health care provider what activities are safe for you. Alcohol and drug use If you drink alcohol: ?Limit how much you use to: ?0 1 drink a day for women who are not . ?0 2 drinks a day for men. ?Be aware of how much alcohol is in your drink. In the [place] one drink equals one 12 oz bottle of beer (355 mL), one 5 oz glass of wine (148 mL), or one 1 oz glass of hard liquor (44 mL). ?Discuss your alcohol use with your health care provider. Alcohol can affect any antidepressant medicines you are taking. Discuss any drug use with your health care provider. General instructions Take xfrw-arq-wbjkstx and prescription medicines only as told by your health care provider. Eat a healthy diet and get plenty of sleep. Consider joining a support group. Your health care provider may be able to recommend one. Keep all follow-up visits as told by your health care provider. This is important. Where to find more information National [place] on Mental Illness: www.julia.org [place] National [place] of Mental Health: www.nimh.nih.gov Contact a health care provider if: Your symptoms get worse. You develop new symptoms. Get help right away if: You self-harm. You have serious thoughts about hurting yourself or others. You hallucinate. If you ever feel like you may hurt yourself or others, or have thoughts about taking your own life, get help right away. Go to your nearest emergency department or: Call your local emergency services (738 in the [place] Call a suicide crisis helpline, such as the National Suicide Prevention Lifeline at or 570 in the [place] This is open 24 hours a day in the [place] Text the Crisis Text Line at 992822 (in the [place] Summary Major depressive disorder (MDD) is a mental health condition. MDD causes symptoms of sadness, hopelessness, and loss of interest in things. These symptoms last most of the day, almost every day, for 2 weeks. The symptoms of MDD can interfere with relationships and with everyday activities. Treatments and support are available for people who develop MDD. You may need more than one type of treatment. Get help right away if you have serious thoughts about hurting yourself or others. This information is not intended to replace advice given to you by your health care provider. Make sure you discuss any questions you have with your health care provider. Document Revised: 06/12/2022 Document Reviewed: 10/28/2020 [employer] Patient Education 2022 [employer] 01/15/2024 18:54:21 Cough, Adult Cough, Adult Coughing is a reflex that clears your throat and your airways (respiratory system). Coughing helps to heal and protect your lungs. It is normal to cough occasionally, but a cough that happens with other symptoms or lasts a long time may be a sign of a condition that needs treatment. An acute cough may only last 2 3 weeks, while a chronic cough may last 8 or more weeks. Coughing is commonly caused by: Infection of the respiratory systemby viruses or bacteria. Breathing in substances that irritate your lungs. Allergies. Asthma. Mucus that runs down the back of your throat (postnasal drip). Smoking. Acid backing up from the stomach into the esophagus (gastroesophageal reflux). Certain medicines. Chronic lung problems. Other medical conditions such as heart failure or a blood clot in the lung (pulmonary embolism). Follow these instructions at home: Medicines Take gzwk-tip-msspvle and prescription medicines only as told by your health care provider. Talk with your health care provider before you take a cough suppressant medicine. Lifestyle Avoid cigarette smoke. Do not use any products that contain nicotine or tobacco, such as cigarettes, e-cigarettes, and chewing tobacco. If you need help quitting, ask your health care provider. Drink enough fluid to keep your urine pale yellow. Avoid caffeine. Do not drink alcohol if your health care provider tells you not to drink. General instructions Pay close attention to changes in your cough. Tell your health care provider about them. Always cover your mouth when you cough. Avoid things that make you cough, such as perfume, candles, cleaning products, or campfire or tobacco smoke. If the air is dry, use a cool mist vaporizer or humidifier in your bedroom or your home to help loosen secretions. If your cough is worse at night, try to sleep in a semi-upright position. Rest as needed. Keep all follow-up visits as told by your health care provider. This is important. Contact a health care provider if you: Have new symptoms. Cough up pus. Have a cough that does not get better after 2 3 weeks or gets worse. Cannot control your cough with cough suppressant medicines and you are losing sleep. Have pain that gets worse or pain that is not helped with medicine. Have a fever. Have unexplained weight loss. Have night sweats. Get help right away if: You cough up blood. You have difficulty breathing. Your heartbeat is very fast. These symptoms may represent a serious problem that is an emergency. Do not wait to see if the symptoms will go away. Get medical help right away. Call your local emergency services (911 in the [place] Do not drive yourself to the hospital. Summary Coughing is a reflex that clears your throat and your airways. It is normal to cough occasionally, but a cough that happens with other symptoms or lasts a long time may be a sign of a condition that needs treatment. Take ecmk-mym-mrcdjax and prescription medicines only as told by your health care provider. Always cover your mouth when you cough. Contact a health care provider if you have new symptoms or a cough that does not get better after 2 3 weeks or gets worse. This information is not intended to replace advice given to you by your health care provider. Make sure you discuss any questions you have with your health care provider. Document Revised: 12/06/2019 Document Reviewed: 12/06/2019 [employer] Patient Education 2022 [email or web address]. 01/15/2024 18:54:18 Vitamin B12 Deficiency Vitamin B12 Deficiency Vitamin B12 deficiency occurs when the body does not have enough of this important vitamin. The body needs this vitamin: To make red blood cells. To make DNA. This is the genetic material inside cells. To help the nerves work properly so they can carry messages from the brain to the body. Vitamin B12 deficiency can cause health problems, such as not having enough red blood cells in the blood (anemia). This can lead to nerve damage if untreated. What are the causes? This condition may be caused by: Not eating enough foods that contain vitamin B12. Not having enough stomach acid and digestive fluids to properly absorb vitamin B12 from the food that you eat. Having certain diseases that make it hard to absorb vitamin B12. These diseases include Crohn's disease, chronic pancreatitis, and cystic fibrosis. An autoimmune disorder in which the body does not make enough of a protein (intrinsic factor) within the stomach, resulting in not enough absorption of vitamin B12. Having a surgery in which part of the stomach or small intestine is removed. Taking certain medicines that make it hard for the body to absorb vitamin B12. These include: ?Heartburn medicines, such as antacids and proton pump inhibitors. ?Some medicines that are used to treat diabetes. What increases the risk? The following factors may make you more likely to develop a vitamin B12 deficiency: Being an older adult. Eating a vegetarian or vegan diet that does not include any foods that come from animals. Eating a poor diet while you are . Taking certain medicines. Having alcoholism. What are the signs or symptoms? In some cases, there are no symptoms of this condition. If the condition leads to anemia or nerve damage, various symptoms may occur, such as: Weakness. Tiredness (fatigue). Loss of appetite. Numbness or tingling in your hands and feet. Redness and burning of the tongue. Depression, confusion, or memory problems. Trouble walking. If anemia is severe, symptoms can include: Shortness of breath. Dizziness. Rapid heart rate. How is this diagnosed? This condition may be diagnosed with a blood test to measure the level of vitamin B12 in your blood. You may also have other tests, including: A group of tests that measure certain characteristics of blood cells (complete blood count, CBC). A blood test to measure intrinsic factor. A procedure where a thin tube with a camera on the end is used to look into your stomach or intestines (endoscopy). Other tests may be needed to discover the cause of the deficiency. How is this treated? Treatment for this condition depends on the cause. This condition may be treated by: Changing your eating and drinking habits, such as: ?Eating more foods that contain vitamin B12. ?Drinking less alcohol or no alcohol. Getting vitamin B12 injections. Taking vitamin B12 supplements by mouth (orally). Your health care provider will tell you which dose is best for you. Follow these instructions at home: Eating and drinking Include foods in your diet that come from animals and contain a lot of vitamin B12. These include: ?Meats and poultry. This includes beef, pork, chicken, turkey, and organ meats, such as liver. ?Seafood. This includes clams, rainbow trout, salmon, tuna, and evangelista. ?Eggs. ?Dairy foods such as milk, yogurt, and cheese. Eat foods that have vitamin B12 added to them (are fortified), such as boqrc-ir-rgx breakfast cereals. Check the label on the package to see if a food is fortified. The items listed above may not be a complete list of foods and beverages you can eat and drink. Contact a dietitian for more information. Alcohol use Do not drink alcohol if: ?Your health care provider tells you not to drink. ?You are , may be , or are planning to become . If you drink alcohol: ?Limit how much you have to: ?0 1 drink a day for women. ?0 2 drinks a day for men. ?Know how much alcohol is in your drink. In the [place] one drink equals one 12 oz bottle of beer (355 mL), one 5 oz glass of wine (148 mL), or one 1 oz glass of hard liquor (44 mL). General instructions Get vitamin B12 injections if told to by your health care provider. Take supplements only as told by your health care provider. Follow the directions carefully. Keep all follow-up visits. This is important. Contact a health care provider if: Your symptoms come back. Your symptoms get worse or do not improve with treatment. Get help right away: You develop shortness of breath. You have a rapid heart rate. You have chest pain. You become dizzy or you faint. These symptoms may be an emergency. Get help right away. Call 911. Do not wait to see if the symptoms will go away. Do not drive yourself to the hospital. Summary Vitamin B12 deficiency occurs when the body does not have enough of this important vitamin. Common causes include not eating enough foods that contain vitamin B12, not being able to absorb vitamin B12 from the food that you eat, having a surgery in which part of the stomach or small intestine is removed, or taking certain medicines. Eat foods that have vitamin B12 in them. Treatment may include making a change in the way you eat and drink, getting vitamin B12 injections, or taking vitamin B12 supplements. This information is not intended to replace advice given to you by your health care provider. Make sure you discuss any questions you have with your health care provider. Document Revised: 07/12/2022 Document Reviewed: 07/12/2022 [employer] Patient Education 2022 [employer] 01/15/2024 18:54:15 Paresthesia Paresthesia Paresthesia is an abnormal burning or prickling sensation. It is usually felt in the hands, arms, legs, or feet. However, it may occur in any part of the body. Usually, paresthesia is not painful. It may feel like: Tingling or numbness. Buzzing. Itching. Paresthesia may occur without any clear cause, or it may be caused by: Breathing too quickly (hyperventilation). Pressure on a nerve. An underlying medical condition. Side effects of a medicine. Nutritional deficiencies. Exposure to toxic chemicals. Most people experience temporary (transient) paresthesia at some time in their lives. For some people, it may be long-lasting (chronic) because of an underlying medical condition. If you have paresthesia that lasts a long time, you need to be evaluated by your health care provider. Follow these instructions at home: Nutrition Eat a healthy diet. This includes: Eating foods that are high in fiber, such as beans, whole grains, and fresh fruits and vegetables. Limiting foods that are high in fat and processed sugars, such as fried or sweet foods. Alcohol use Avoid or limit alcohol. Too much alcohol can cause a vitamin B deficiency, and vitamin B is needed for healthy nerves. Do not drink alcohol if: ?Your health care provider tells you not to drink. ?You are , may be , or are planning to become . If you drink alcohol: ?Limit how much you have to: ?0 1 drink a day for women. ?0 2 drinks a day for men. ?Know how much alcohol is in your drink. In the [place] one drink equals one 12 oz bottle of beer (355 mL), one 5 oz glass of wine (148 mL), or one 1 oz glass of hard liquor (44 mL). General instructions Take dktz-mja-jrcsyhq and prescription medicines only as told by your health care provider. Do not use any products that contain nicotine or tobacco. These products include cigarettes, chewing tobacco, and vaping devices, such as e-cigarettes. If you need help quitting, ask your health care provider. If you have diabetes, work closely with your health care provider to keep your blood sugar under control. If you have numbness in your feet: ?Check every day for signs of injury or infection. Watch for redness, warmth, and swelling. ?Wear padded socks and comfortable shoes. These help protect your feet. Keep all follow-up visits. This is important. Contact a health care provider if you: Have paresthesia that gets worse or does not go away. Have numbness after an injury. Have a burning or prickling feeling that gets worse when you walk. Have pain, cramps, or dizziness, or you faint. Develop a rash. Get help right away if you: Feel muscle weakness. Develop new weakness in an arm or leg. Have trouble walking or moving. Have problems with speech, understanding, or vision. Feel confused. Cannot control your bladder or bowel movements. These symptoms may be an emergency. Get help right away. Call 911. Do not wait to see if the symptoms will go away. Do not drive yourself to the hospital. Summary Paresthesia is an abnormal burning or prickling sensation that is usually felt in the hands, arms, legs, or feet. It may also occur in other parts of the body. Paresthesia may occur without any clear cause, or it may be caused by breathing too quickly (hyperventilation), pressure on a nerve, an underlying medical condition, side effects of a medicine, nutritional deficiencies, or exposure to toxic chemicals. If you have paresthesia that lasts a long time, you need to be evaluated by your health care provider. This information is not intended to replace advice given to you by your health care provider. Make sure you discuss any questions you have with your health care provider. Document Revised: 07/29/2022 Document Reviewed: 07/29/2022 [employer] Patient Education 2022 [employer]. 01/15/2024 18:54:13 Cervical Radiculopathy Cervical Radiculopathy Cervical radiculopathy happens when a nerve in the neck (a cervical nerve) is pinched or bruised. This condition can happen because of an injury to the cervical spine (vertebrae) in the neck, or as part of the normal aging process. Pressure on the cervical nerves can cause pain or numbness that travels from the neck all the way down to the arm and fingers. This condition usually gets better with rest. Treatment may be needed if the condition does not improve. What are the causes? This condition may be caused by: A neck injury. A bulging (herniated) disk. Muscle spasms. Muscle tightness in the neck due to overuse. Arthritis. Breakdown or degeneration in the bones and joints of the spine (spondylosis) due to aging. Bone spurs that may develop near the cervical nerves. What are the signs or symptoms? Symptoms of this condition include: Pain. The pain may travel from the neck to the arm and hand. The pain can be severe or irritating. It may get worse when you move your neck. Numbness or tingling in your arm or hand. Weakness in the affected arm and hand, in severe cases. How is this diagnosed? This condition may be diagnosed based on your symptoms, your medical history, and a physical exam. You may also have tests, including: X-rays. CT scan. MRI. Electromyogram (EMG). Nerve conduction tests. How is this treated? In many cases, treatment is not needed for this condition. With rest, the condition usually gets better over time. If treatment is needed, options may include: Wearing a soft neck collar (cervical collar) for short periods of time. Doing physical therapy to strengthen your neck muscles. Taking medicines. These may include NSAIDs, such as ibuprofen, or oral corticosteroids. Having spinal injections, in severe cases. Having surgery. This may be needed if other treatments do not help. Different types of surgery may be done depending on the cause of this condition. Follow these instructions at home: If you have a cervical collar: Wear it as told by your health care provider. Remove it only as told by your health care provider. Ask your health care provider if you can remove the cervical collar for cleaning and bathing. If you are allowed to remove the collar for cleaning or bathing: ?Follow instructions from your health care provider about how to remove the collar safely. ?Clean the collar by wiping it with mild soap and water and drying it completely. ?Take out any removable pads in the collar every 1 2 days, and wash them by hand with soap and water. Let them air-dry completely before you put them back in the collar. ?Check your skin under the collar for irritation or sores. If you see any, tell your health care provider. Managing pain Take arql-esz-rzsikuy and prescription medicines only as told by your health care provider. If directed, put ice on the affected area. To do this: ?If you have a soft neck collar, remove it as told by your health care provider. ?Put ice in a plastic bag. ?Place a towel between your skin and the bag. ?Leave the ice on for 20 minutes, 2 3 times a day. ?Remove the ice if your skin turns bright red. This is very important. If you cannot feel pain, heat, or cold, you have a greater risk of damage to the area. If applying ice does not help, you can try using heat. Use the heat source that your health care provider recommends, such as a moist heat pack or a heating pad. ?Place a towel between your skin and the heat source. ?Leave the heat on for 20 30 minutes. ?Remove the heat if your skin turns bright red. This is especially important if you are unable to feel pain, heat, or cold. You have a greater risk of getting burned. Try a gentle neck and shoulder massage to help relieve symptoms. Activity Rest as needed. Return to your normal activities as told by your health care provider. Ask your health care provider what activities are safe for you. Do stretching and strengthening exercises as told by your health care provider or your physical therapist. You may have to avoid lifting. Ask your health care provider how much you can safely lift. General instructions Use a flat pillow when you sleep. Do not drive while wearing a cervical collar. If you do not have a cervical collar, ask your health care provider if it is safe to drive while your neck heals. Ask your health care provider if the medicine prescribed to you requires you to avoid driving or using machinery. Do not use any products that contain nicotine or tobacco. These products include cigarettes, chewing tobacco, and vaping devices, such as e-cigarettes. If you need help quitting, ask your health care provider. Keep all follow-up visits. This is important. Contact a health care provider if: Your condition does not improve with treatment. Get help right away if: Your pain gets much worse and is not controlled with medicines. You have weakness or numbness in your hand, arm, face, or leg. You have a high fever. You have a stiff, rigid neck. You lose control of your bowels or your bladder (have incontinence). You have trouble with walking, balance, or speaking. Summary Cervical radiculopathy happens when a nerve in the neck is pinched or bruised. A nerve can get pinched from a bulging disk, arthritis, muscle spasms, or an injury to the neck. Symptoms include pain, tingling, or numbness radiating from the neck to the arm or hand. Weakness can also occur in severe cases. Treatment may include rest, wearing a cervical collar, and physical therapy. Medicines may be prescribed to help with pain. In severe cases, injections or surgery may be needed. This information is not intended to replace advice given to you by your health care provider. Make sure you discuss any questions you have with your health care provider. Document Revised: 05/23/2022 Document Reviewed: 05/23/2022 [employer] Patient Education 2022 [employer] 01/15/2024 18:54:09 Migraine Headache Migraine Headache A migraine headache is an intense, throbbing pain on one side or both sides of the head. Migraine headaches may also cause other symptoms, such as nausea, vomiting, and sensitivity to light and noise. A migraine headache can last from 4 hours to 3 days. Talk with your doctor about what things may bring on (trigger) your migraine headaches. What are the causes? The exact cause of this condition is not known. However, a migraine may be caused when nerves in the brain become irritated and release chemicals that cause inflammation of blood vessels. This inflammation causes pain. This condition may be triggered or caused by: Drinking alcohol. Smoking. Taking medicines, such as: ?Medicine used to treat chest pain (nitroglycerin). ? control pills. ?Estrogen. ?Certain blood pressure medicines. Eating or drinking products that contain nitrates, glutamate, aspartame, or tyramine. Aged cheeses, chocolate, or caffeine may also be triggers. Doing physical activity. Other things that may trigger a migraine headache include: Menstruation. . Hunger. Stress. Lack of sleep or too much sleep. Weather changes. Fatigue. What increases the risk? The following factors may make you more likely to experience migraine headaches: Being a certain age. This condition is more common in people who are 25 55 years old. Being female. Having a family history of migraine headaches. Being . Having a mental health condition, such as depression or anxiety. Being obese. What are the signs or symptoms? The main symptom of this condition is pulsating or throbbing pain. This pain may: Happen in any area of the head, such as on one side or both sides. Interfere with daily activities. Get worse with physical activity. Get worse with exposure to bright lights or loud noises. Other symptoms may include: Nausea. Vomiting. Dizziness. General sensitivity to bright lights, loud noises, or smells. Before you get a migraine headache, you may get warning signs (an aura). An aura may include: Seeing flashing lights or having blind spots. Seeing bright spots, halos, or zigzag lines. Having tunnel vision or blurred vision. Having numbness or a tingling feeling. Having trouble talking. Having muscle weakness. Some people have symptoms after a migraine headache (postdromal phase), such as: Feeling tired. Difficulty concentrating. How is this diagnosed? A migraine headache can be diagnosed based on: Your symptoms. A physical exam. Tests, such as: ?CT scan or an MRI of the head. These imaging tests can help rule out other causes of headaches. ?Taking fluid from the spine (lumbar puncture) and analyzing it (cerebrospinal fluid analysis, or CSF analysis). How is this treated? This condition may be treated with medicines that: Relieve pain. Relieve nausea. Prevent migraine headaches. Treatment for this condition may also include: Acupuncture. Lifestyle changes like avoiding foods that trigger migraine headaches. Biofeedback. Cognitive behavioral therapy. Follow these instructions at home: Medicines Take hwbg-ult-ddunbun and prescription medicines only as told by your health care provider. Ask your health care provider if the medicine prescribed to you: ?Requires you to avoid driving or using heavy machinery. ?Can cause constipation. You may need to take these actions to prevent or treat constipation: ?Drink enough fluid to keep your urine pale yellow. ?Take bqkr-tsf-nrsipbj or prescription medicines. ?Eat foods that are high in fiber, such as beans, whole grains, and fresh fruits and vegetables. ?Limit foods that are high in fat and processed sugars, such as fried or sweet foods. Lifestyle Do not drink alcohol. Do not use any products that contain nicotine or tobacco, such as cigarettes, e-cigarettes, and chewing tobacco. If you need help quitting, ask your health care provider. Get at least 8 hours of sleep every night. Find ways to manage stress, such as meditation, deep breathing, or yoga. General instructions Keep a journal to find out what may trigger your migraine headaches. For example, write down: ?What you eat and drink. ?How much sleep you get. ?Any change to your diet or medicines. If you have a migraine headache: ?Avoid things that make your symptoms worse, such as bright lights. ?It may help to lie down in a dark, quiet room. ?Do not drive or use heavy machinery. ?Ask your health care provider what activities are safe for you while you are experiencing symptoms. Keep all follow-up visits as told by your health care provider. This is important. Contact a health care provider if: You develop symptoms that are different or more severe than your usual migraine headache symptoms. You have more than 15 headache days in one month. Get help right away if: Your migraine headache becomes severe. Your migraine headache lasts longer than 72 hours. You have a fever. You have a stiff neck. You have vision loss. Your muscles feel weak or like you cannot control them. You start to lose your balance often. You have trouble walking. You faint. You have a seizure. Summary A migraine headache is an intense, throbbing pain on one side or both sides of the head. Migraines may also cause other symptoms, such as nausea, vomiting, and sensitivity to light and noise. This condition may be treated with medicines and lifestyle changes. You may also need to avoid certain things that trigger a migraine headache. Keep a journal to find out what may trigger your migraine headaches. Contact your health care provider if you have more than 15 headache days in a month or you develop symptoms that are different or more severe than your usual migraine headache symptoms. This information is not intended to replace advice given to you by your health care provider. Make sure you discuss any questions you have with your health care provider. Document Revised: 03/10/2020 Document Reviewed: 12/30/2019 [employer] Patient Education 2022 [employer]. Follow Up Care 01/12/2024 07:56:41 With:Vilma John FAM, MED Address: [facility] [address], [facility] [place] [id number]- When:Within 1 Month(s) Comments:f/u labs, results from MRI, neurochanges and migraines, persistent cough [facility] 10-30-2023 Hospital Discharge instructions Patient Education 10/30/2023 11:25:52 Postmenopausal Bleeding Postmenopausal Bleeding Postmenopausal bleeding is any bleeding that a woman has after she has entered menopause. Menopause is the end of a woman's fertile years. After menopause, a woman no longer ovulates and does not have menstrual periods. Therefore, she should no longer have bleeding from her vagina. Postmenopausal bleeding may have various causes, including: Menopausal hormone therapy (MHT). Endometrial atrophy. After menopause, low estrogen hormone levels cause the membrane that lines the uterus (endometrium) to become thin. You may have bleeding as the endometrium thins. Endometrial hyperplasia. This condition is caused by excess estrogen hormones and low levels of progesterone hormones. The excess estrogen causes the endometrium to thicken, which can lead to bleeding. In some cases, this can lead to cancer of the uterus. Endometrial cancer. Noncancerous growths (polyps) on the endometrium, the lining of the uterus, or the cervix. Uterine fibroids. These are noncancerous growths in or around the uterus muscle tissue that can cause heavy bleeding. Any type of postmenopausal bleeding, even if it appears to be a typical menstrual period, should be checked by your health care provider. Treatment will depend on the cause of the bleeding. Follow these instructions at home: Pay attention to any changes in your symptoms. Let your health care provider know about them. Avoid using tampons and douches as told by your health care provider. Change your pads regularly. Get regular pelvic exams, including Pap tests, as told by your health care provider. Take iron supplements as told by your health care provider. Take szcm-cli-fkobrrw and prescription medicines only as told by your health care provider. Keep all follow-up visits. This is important. Contact a health care provider if: You have new bleeding from the vagina after menopause. You have pain in your abdomen. Get help right away if: You have a fever or chills. You have severe pain with bleeding. You are passing blood clots. You have heavy bleeding, need more than 1 pad an hour, and have never experienced this before. You have headaches or feel faint or dizzy. Summary Postmenopausal bleeding is any bleeding that a woman has after she has entered into menopause. Postmenopausal bleeding may have various causes. Treatment will depend on the cause of the bleeding. Any type of postmenopausal bleeding, even if it appears to be a typical menstrual period, should be checked by your health care provider. Be sure to pay attention to any changes in your symptoms and keep all follow-up visits. This information is not intended to replace advice given to you by your health care provider. Make sure you discuss any questions you have with your health care provider. Document Revised: 05/03/2021 Document Reviewed: 05/03/2021 [employer] Patient Education 2022 [employer]. 10/30/2023 11:25:43 Preventing Vitamin D Deficiency Preventing Vitamin D Deficiency Vitamin D deficiency is when your body does not have enough vitamin D. Vitamin D is important because it helps your body maintain calcium and phosphorus levels. It plays a soto role in the health of bones and teeth, reduces inflammation, and improves the body's defense system (immune system). Our bodies make vitamin D when our skin is exposed to direct sunlight. However, for many people, this may not be enough vitamin D to meet the body's needs. How can this condition affect me? If vitamin D deficiency is severe, it can cause a condition in which a person's bones become softer than normal. In adults, this condition is called osteomalacia. In children, this condition is called rickets. Vitamin D deficiency can also cause weak or thin bones (osteoporosis) in adults. What can increase my risk? You may be at risk for a vitamin D deficiency if you: Are . Are obese. Are an older adult. Have dark skin. Take certain medicines that affect the way vitamin D is absorbed. Have had a surgery in which a part of the stomach or a part of the small intestine was removed. Other risk factors include: Having a condition that limits your ability to absorb fat, such as Crohn's disease, long-term (chronic) pancreatitis, or cystic fibrosis. Having certain conditions that are passed from parent to child (inherited). Not having access to foods rich in vitamin D. Having limited ability to move and go outside safely. Living in areas that have fewer hours of sunlight. Spending most of your day indoors, or covering your skin all the time when you are outdoors. What actions can I take to reduce my risk of a vitamin D deficiency? Knowing the best sources of vitamin D You can meet your daily vitamin D needs from: Foods. Dietary supplements. Direct exposure to natural sunlight. Infant formula, for infants. Knowing how much vitamin D you need General recommendations for daily vitamin D intake vary by these categories: Infants: 400 international units (IU). Children older than 1 year: 600 international units. Adults: 600 international units. and women: 600 international units. Adults older than 70 years: 800 international units. These are minimum levels of recommended amounts. Your health care provider may recommend a different amount of vitamin D intake based on your specific needs and your overall health. Getting sun exposure Get regular, safe exposure to natural sunlight. Expose your skin to direct sunlight for at least 15 minutes every day. If you have dark skin, you may need to expose your skin for a longer period of time. Protect your skin from too much sun exposure. This helps to prevent skin cancer. Ask your health care provider if regular sun exposure is safe for you. Do not use a tanning bed. Eating and drinking Eat foods that naturally contain vitamin D. These include: ?Beef liver. ?Eggs. The vitamin D is in the yolk. ?Fish, such as salmon or trout. ?Mushrooms that were treated with UV light. Eat or drink products that have vitamin D added to them (are fortified). These may include: ?Cereals. ?Milk, including plant-based alternatives such as almond, soy, or oat milks. ?Pontiac juice. ?Margarine. When choosing foods, check the food label on the package to see: ?How much vitamin D is in the item. ?If the food is fortified with vitamin D. The items listed above may not be a complete list of foods and beverages you can eat and drink. Contact a dietitian for more information. Taking supplements and medicines If you are at risk for vitamin D deficiency, or if you have certain diseases, your health care provider may recommend that you take a vitamin D supplement. Make sure you: Talk with your health care provider before you start taking any vitamin D supplements. You may be more sensitive to the side effects of vitamin D supplements if you are on certain medicines or have certain medical conditions. Tell your health care provider about all medicines you are taking, including vitamins, herbs, eye drops, creams, and ayrg-wtm-wgdygmi medicines. Take ddgs-kzi-lobdoeg and prescription medicines only as told by your health care provider. Take supplements only as told by your health care provider. To increase absorption of your supplement, take it with a meal or snack. Summary Vitamin D plays a soto role in the health of bones and teeth, reduces inflammation, and improves the body's defense system (immune system). A vitamin D deficiency can put you at risk of developing conditions such as rickets or osteoporosis. Our bodies make vitamin D when our skin is exposed to direct sunlight. However, for many people, this may not be enough vitamin D to meet the body's needs. Some foods naturally contain vitamin D, including beef liver, egg yolk, and fish. Eat or drink products that have vitamin D added to them (are fortified). This information is not intended to replace advice given to you by your health care provider. Make sure you discuss any questions you have with your health care provider. Document Revised: 08/23/2022 Document Reviewed: 08/23/2022 [employer] Patient Education 2022 [employer] 10/30/2023 11:25:38 DASH Eating Plan DASH Eating Plan DASH stands for Dietary Approaches to Stop Hypertension. The DASH eating plan is a healthy eating plan that has been shown to: Reduce high blood pressure (hypertension). Reduce your risk for type 2 diabetes, heart disease, and stroke. Help with weight loss. What are tips for following this plan? Reading food labels Check food labels for the amount of salt (sodium) per serving. Choose foods with less than 5 percent of the Daily Value of sodium. Generally, foods with less than 300 milligrams (mg) of sodium per serving fit into this eating plan. To find whole grains, look for the word whole as the first word in the ingredient list. Shopping Buy products labeled as low-sodium or no salt added. Buy fresh foods. Avoid canned foods and pre-made or frozen meals. Cooking Avoid adding salt when cooking. Use salt-free seasonings or herbs instead of table salt or sea salt. Check with your health care provider or pharmacist before using salt substitutes. Do not spears foods. Cook foods using healthy methods such as baking, boiling, grilling, roasting, and broiling instead. Cook with heart-healthy oils, such as olive, canola, avocado, soybean, or sunflower oil. Meal planning Eat a balanced diet that includes: ?4 or more servings of fruits and 4 or more servings of vegetables each day. Try to fill one-half of your plate with fruits and vegetables. ?6 8 servings of whole grains each day. ?Less than 6 oz (170 g) of lean meat, poultry, or fish each day. A 3-oz (85-g) serving of meat is about the same size as a deck of cards. One egg equals 1 oz (28 g). ?2 3 servings of low-fat dairy each day. One serving is 1 cup (237 mL). ?1 serving of nuts, seeds, or beans 5 times each week. ?2 3 servings of heart-healthy fats. Healthy fats called omega-3 fatty acids are found in foods such as walnuts, flaxseeds, fortified milks, and eggs. These fats are also found in cold-water fish, such as sardines, salmon, and mackerel. Limit how much you eat of: ?Canned or prepackaged foods. ?Food that is high in trans fat, such as some fried foods. ?Food that is high in saturated fat, such as fatty meat. ?Desserts and other sweets, sugary drinks, and other foods with added sugar. ?Full-fat dairy products. Do not salt foods before eating. Do not eat more than 4 egg yolks a week. Try to eat at least 2 vegetarian meals a week. Eat more home-cooked food and less restaurant, buffet, and fast food. Lifestyle When eating at a restaurant, ask that your food be prepared with less salt or no salt, if possible. If you drink alcohol: ?Limit how much you use to: ?0 1 drink a day for women who are not . ?0 2 drinks a day for men. ?Be aware of how much alcohol is in your drink. In the [place] one drink equals one 12 oz bottle of beer (355 mL), one 5 oz glass of wine (148 mL), or one 1 oz glass of hard liquor (44 mL). General information Avoid eating more than 2,300 mg of salt a day. If you have hypertension, you may need to reduce your sodium intake to 1,500 mg a day. Work with your health care provider to maintain a healthy body weight or to lose weight. Ask what an ideal weight is for you. Get at least 30 minutes of exercise that causes your heart to beat faster (aerobic exercise) most days of the week. Activities may include walking, swimming, or biking. Work with your health care provider or dietitian to adjust your eating plan to your individual calorie needs. What foods should I eat? Fruits All fresh, dried, or frozen fruit. Canned fruit in natural juice (without added sugar). Vegetables Fresh or frozen vegetables (raw, steamed, roasted, or grilled). Low-sodium or reduced-sodium tomato and vegetable juice. Low-sodium or reduced-sodium tomato sauce and tomato paste. Low-sodium or reduced-sodium canned vegetables. Grains Whole-grain or whole-wheat bread. Whole-grain or whole-wheat pasta. Brown rice. Oatmeal. Quinoa. Bulgur. Whole-grain and low-sodium cereals. Dian bread. Low-fat, low-sodium crackers. Whole-wheat flour tortillas. Meats and other proteins Skinless chicken or turkey. Ground chicken or turkey. Pork with fat trimmed off. Fish and seafood. Egg whites. Dried beans, peas, or lentils. Unsalted nuts, nut butters, and seeds. Unsalted canned beans. Lean cuts of beef with fat trimmed off. Low-sodium, lean precooked or cured meat, such as sausages or meat loaves. Dairy Low-fat (1%) or fat-free (skim) milk. Reduced-fat, low-fat, or fat-free cheeses. Nonfat, low-sodium ricotta or cottage cheese. Low-fat or nonfat yogurt. Low-fat, low-sodium cheese. Fats and oils Soft margarine without trans fats. Vegetable oil. Reduced-fat, low-fat, or light mayonnaise and salad dressings (reduced-sodium). Canola, safflower, olive, avocado, soybean, and sunflower oils. Avocado. Seasonings and condiments Herbs. Spices. Seasoning mixes without salt. Other foods Unsalted popcorn and pretzels. Fat-free sweets. The items listed above may not be a complete list of foods and beverages you can eat. Contact a dietitian for more information. What foods should I avoid? Fruits Canned fruit in a light or heavy syrup. Fried fruit. Fruit in cream or butter sauce. Vegetables Creamed or fried vegetables. Vegetables in a cheese sauce. Regular canned vegetables (not low-sodium or reduced-sodium). Regular canned tomato sauce and paste (not low-sodium or reduced-sodium). Regular tomato and vegetable juice (not low-sodium or reduced-sodium). Pickles. Olives. Grains Baked goods made with fat, such as croissants, muffins, or some breads. Dry pasta or rice meal packs. Meats and other proteins Fatty cuts of meat. Ribs. Fried meat. Torres. Bologna, salami, and other precooked or cured meats, such as sausages or meat loaves. Fat from the back of a pig (fatback). Bratwurst. Salted nuts and seeds. Canned beans with added salt. Canned or smoked fish. Whole eggs or egg yolks. Chicken or turkey with skin. Dairy Whole or 2% milk, cream, and [id number]. Whole or full-fat cream cheese. Whole-fat or sweetened yogurt. Full-fat cheese. Nondairy creamers. Whipped toppings. Processed cheese and cheese spreads. Fats and oils Butter. Stick margarine. Lard. Shortening. Ghee. Torres fat. Tropical oils, such as coconut, palm kernel, or palm oil. Seasonings and condiments Onion salt, garlic salt, seasoned salt, table salt, and sea salt. Worcestershire sauce. Tartar sauce. Barbecue sauce. Teriyaki sauce. Soy sauce, including reduced-sodium. Steak sauce. Canned and packaged gravies. Fish sauce. Oyster sauce. Cocktail sauce. Store-bought horseradish. Ketchup. Mustard. Meat flavorings and tenderizers. Bouillon cubes. Hot sauces. Pre-made or packaged marinades. Pre-made or packaged taco seasonings. Relishes. Regular salad dressings. Other foods Salted popcorn and pretzels. The items listed above may not be a complete list of foods and beverages you should avoid. Contact a dietitian for more information. Where to find more information National Heart, Lung, and Blood [place]: www.nhlbi.nih.gov [place] [employer]: www.heart.org Academy of Nutrition and Dietetics: www.eatright.org National Kidney Foundation: www.kidney.org Summary The DASH eating plan is a healthy eating plan that has been shown to reduce high blood pressure (hypertension). It may also reduce your risk for type 2 diabetes, heart disease, and stroke. When on the DASH eating plan, aim to eat more fresh fruits and vegetables, whole grains, lean proteins, low-fat dairy, and heart-healthy fats. With the DASH eating plan, you should limit salt (sodium) intake to 2,300 mg a day. If you have hypertension, you may need to reduce your sodium intake to 1,500 mg a day. Work with your health care provider or dietitian to adjust your eating plan to your individual calorie needs. This information is not intended to replace advice given to you by your health care provider. Make sure you discuss any questions you have with your health care provider. Document Revised: 10/20/2020 Document Reviewed: 10/20/2020 [employer] Patient Education 2022 [employer] 10/30/2023 11:25:37 Major Depressive Disorder, Adult Major Depressive Disorder, Adult Major depressive disorder (MDD) is a mental health condition. It may also be called clinical depression or unipolar depression. MDD causes symptoms of sadness, hopelessness, and loss of interest in things. These symptoms last most of the day, almost every day, for 2 weeks. MDD can also cause physical symptoms. It can interfere with relationships and with everyday activities, such as work, school, and activities that are usually pleasant. MDD may be mild, moderate, or severe. It may be single-episode MDD, which happens once, or recurrent MDD, which may occur multiple times. What are the causes? The exact cause of this condition is not known. MDD is most likely caused by a combination of things, which may include: Your personality traits. [place] or conditioned behaviors or thoughts or feelings that reinforce negativity. Any alcohol or substance misuse. Long-term (chronic) physical or mental health illness. Going through a traumatic experience or major life changes. What increases the risk? The following factors may make someone more likely to develop MDD: A family history of depression. Being a woman. Troubled family relationships. Abnormally low levels of certain brain chemicals. Traumatic or painful events in childhood, especially abuse or loss of a parent. A lot of stress from life experiences, such as poor living conditions or discrimination. Chronic physical illness or other mental health disorders. What are the signs or symptoms? The main symptoms of MDD usually include: Constant depressed or irritable mood. A loss of interest in things and activities. Other symptoms include: Sleeping or eating too much or too little. Unexplained weight gain or weight loss. Tiredness or low energy. Being agitated, restless, or weak. Feeling hopeless, worthless, or guilty. Trouble thinking clearly or making decisions. Thoughts of suicide or thoughts of harming others. Isolating oneself or avoiding other people or activities. Trouble completing tasks, work, or any normal obligations. Severe symptoms of this condition may include: Psychotic depression.This may include false beliefs, or delusions. It may also include seeing, hearing, tasting, smelling, or feeling things that are not real (hallucinations). Chronic depression or persistent depressive disorder. This is low-level depression that lasts for at least 2 years. Melancholic depression, or feeling extremely sad and hopeless. Catatonic depression, which includes trouble speaking and trouble moving. How is this diagnosed? This condition may be diagnosed based on: Your symptoms. Your medical and mental health history. You may be asked questions about your lifestyle, including any drug and alcohol use. A physical exam. Blood tests to rule out other conditions. MDD is confirmed if you have the following symptoms most of the day, nearly every day, in a 2-week period: Either a depressed mood or loss of interest. At least four other MDD symptoms. How is this treated? This condition is usually treated by mental health professionals, such as psychologists, psychiatrists, and clinical social workers. You may need more than one type of treatment. Treatment may include: Psychotherapy, also called talk therapy or counseling. Types of psychotherapy include: ?Cognitive behavioral therapy (CBT). This teaches you to recognize unhealthy feelings, thoughts, and behaviors, and replace them with positive thoughts and actions. ?Interpersonal therapy (IPT). This helps you to improve the way you communicate with others or relate to them. ?Family therapy. This treatment includes members of your family. Medicines to treat anxiety and depression. These medicines help to balance the brain chemicals that affect your emotions. Lifestyle changes. You may be asked to: ?Limit alcohol use and avoid drug use. ?Get regular exercise. ?Get plenty of sleep. ?Make healthy eating choices. ?Spend more time outdoors. Brain stimulation. This may be done if symptoms are very severe and other treatments have not worked. Examples of this treatment are electroconvulsive therapy and transcranial magnetic stimulation. Follow these instructions at home: Activity Exercise regularly and spend time outdoors. Find activities that you enjoy doing, and make time to do them. Find healthy ways to manage stress, such as: ?Meditation or deep breathing. ?Spending time in nature. ?Journaling. Return to your normal activities as told by your health care provider. Ask your health care provider what activities are safe for you. Alcohol and drug use If you drink alcohol: ?Limit how much you use to: ?0 1 drink a day for women who are not . ?0 2 drinks a day for men. ?Be aware of how much alcohol is in your drink. In the [place] one drink equals one 12 oz bottle of beer (355 mL), one 5 oz glass of wine (148 mL), or one 1 oz glass of hard liquor (44 mL). ?Discuss your alcohol use with your health care provider. Alcohol can affect any antidepressant medicines you are taking. Discuss any drug use with your health care provider. General instructions Take bvtw-ppk-toheoww and prescription medicines only as told by your health care provider. Eat a healthy diet and get plenty of sleep. Consider joining a support group. Your health care provider may be able to recommend one. Keep all follow-up visits as told by your health care provider. This is important. Where to find more information National [place] on Mental Illness: www.julia.org [place] National [place] of Mental Health: www.nimh.nih.gov Contact a health care provider if: Your symptoms get worse. You develop new symptoms. Get help right away if: You self-harm. You have serious thoughts about hurting yourself or others. You hallucinate. If you ever feel like you may hurt yourself or others, or have thoughts about taking your own life, get help right away. Go to your nearest emergency department or: Call your local emergency services (649 in the [place] Call a suicide crisis helpline, such as the National Suicide Prevention Lifeline at or 393 in the [place] This is open 24 hours a day in the [place] Text the Crisis Text Line at 104430 (in the [place] Summary Major depressive disorder (MDD) is a mental health condition. MDD causes symptoms of sadness, hopelessness, and loss of interest in things. These symptoms last most of the day, almost every day, for 2 weeks. The symptoms of MDD can interfere with relationships and with everyday activities. Treatments and support are available for people who develop MDD. You may need more than one type of treatment. Get help right away if you have serious thoughts about hurting yourself or others. This information is not intended to replace advice given to you by your health care provider. Make sure you discuss any questions you have with your health care provider. Document Revised: 06/12/2022 Document Reviewed: 10/28/2020 [employer] Patient Education 2022 [employer]. Follow Up Care 09/26/2023 10:41:21 With:Vilma John FAM, MED [facility] [address] [address]- Business (1) When:02/04/2024 Comments:for f/u [facility] 09-26-2023 Hospital Discharge instructions Patient Education 09/26/2023 10:39:56 Major Depressive Disorder, Adult Major Depressive Disorder, Adult Major depressive disorder (MDD) is a mental health condition. It may also be called clinical depression or unipolar depression. MDD causes symptoms of sadness, hopelessness, and loss of interest in things. These symptoms last most of the day, almost every day, for 2 weeks. MDD can also cause physical symptoms. It can interfere with relationships and with everyday activities, such as work, school, and activities that are usually pleasant. MDD may be mild, moderate, or severe. It may be single-episode MDD, which happens once, or recurrent MDD, which may occur multiple times. What are the causes? The exact cause of this condition is not known. MDD is most likely caused by a combination of things, which may include: Your personality traits. [place] or conditioned behaviors or thoughts or feelings that reinforce negativity. Any alcohol or substance misuse. Long-term (chronic) physical or mental health illness. Going through a traumatic experience or major life changes. What increases the risk? The following factors may make someone more likely to develop MDD: A family history of depression. Being a woman. Troubled family relationships. Abnormally low levels of certain brain chemicals. Traumatic or painful events in childhood, especially abuse or loss of a parent. A lot of stress from life experiences, such as poor living conditions or discrimination. Chronic physical illness or other mental health disorders. What are the signs or symptoms? The main symptoms of MDD usually include: Constant depressed or irritable mood. A loss of interest in things and activities. Other symptoms include: Sleeping or eating too much or too little. Unexplained weight gain or weight loss. Tiredness or low energy. Being agitated, restless, or weak. Feeling hopeless, worthless, or guilty. Trouble thinking clearly or making decisions. Thoughts of suicide or thoughts of harming others. Isolating oneself or avoiding other people or activities. Trouble completing tasks, work, or any normal obligations. Severe symptoms of this condition may include: Psychotic depression.This may include false beliefs, or delusions. It may also include seeing, hearing, tasting, smelling, or feeling things that are not real (hallucinations). Chronic depression or persistent depressive disorder. This is low-level depression that lasts for at least 2 years. Melancholic depression, or feeling extremely sad and hopeless. Catatonic depression, which includes trouble speaking and trouble moving. How is this diagnosed? This condition may be diagnosed based on: Your symptoms. Your medical and mental health history. You may be asked questions about your lifestyle, including any drug and alcohol use. A physical exam. Blood tests to rule out other conditions. MDD is confirmed if you have the following symptoms most of the day, nearly every day, in a 2-week period: Either a depressed mood or loss of interest. At least four other MDD symptoms. How is this treated? This condition is usually treated by mental health professionals, such as psychologists, psychiatrists, and clinical social workers. You may need more than one type of treatment. Treatment may include: Psychotherapy, also called talk therapy or counseling. Types of psychotherapy include: ?Cognitive behavioral therapy (CBT). This teaches you to recognize unhealthy feelings, thoughts, and behaviors, and replace them with positive thoughts and actions. ?Interpersonal therapy (IPT). This helps you to improve the way you communicate with others or relate to them. ?Family therapy. This treatment includes members of your family. Medicines to treat anxiety and depression. These medicines help to balance the brain chemicals that affect your emotions. Lifestyle changes. You may be asked to: ?Limit alcohol use and avoid drug use. ?Get regular exercise. ?Get plenty of sleep. ?Make healthy eating choices. ?Spend more time outdoors. Brain stimulation. This may be done if symptoms are very severe and other treatments have not worked. Examples of this treatment are electroconvulsive therapy and transcranial magnetic stimulation. Follow these instructions at home: Activity Exercise regularly and spend time outdoors. Find activities that you enjoy doing, and make time to do them. Find healthy ways to manage stress, such as: ?Meditation or deep breathing. ?Spending time in nature. ?Journaling. Return to your normal activities as told by your health care provider. Ask your health care provider what activities are safe for you. Alcohol and drug use If you drink alcohol: ?Limit how much you use to: ?0 1 drink a day for women who are not . ?0 2 drinks a day for men. ?Be aware of how much alcohol is in your drink. In the [place] one drink equals one 12 oz bottle of beer (355 mL), one 5 oz glass of wine (148 mL), or one 1 oz glass of hard liquor (44 mL). ?Discuss your alcohol use with your health care provider. Alcohol can affect any antidepressant medicines you are taking. Discuss any drug use with your health care provider. General instructions Take ntjl-whk-jmrhgoa and prescription medicines only as told by your health care provider. Eat a healthy diet and get plenty of sleep. Consider joining a support group. Your health care provider may be able to recommend one. Keep all follow-up visits as told by your health care provider. This is important. Where to find more information National [place] on Mental Illness: www.julia.org [place] National [place] of Mental Health: www.nimh.nih.gov Contact a health care provider if: Your symptoms get worse. You develop new symptoms. Get help right away if: You self-harm. You have serious thoughts about hurting yourself or others. You hallucinate. If you ever feel like you may hurt yourself or others, or have thoughts about taking your own life, get help right away. Go to your nearest emergency department or: Call your local emergency services (192 in the [place] Call a suicide crisis helpline, such as the National Suicide Prevention Lifeline at or 049 in the [place] This is open 24 hours a day in the [place] Text the Crisis Text Line at 884999 (in the [place] Summary Major depressive disorder (MDD) is a mental health condition. MDD causes symptoms of sadness, hopelessness, and loss of interest in things. These symptoms last most of the day, almost every day, for 2 weeks. The symptoms of MDD can interfere with relationships and with everyday activities. Treatments and support are available for people who develop MDD. You may need more than one type of treatment. Get help right away if you have serious thoughts about hurting yourself or others. This information is not intended to replace advice given to you by your health care provider. Make sure you discuss any questions you have with your health care provider. Document Revised: 06/12/2022 Document Reviewed: 10/28/2020 [employer] Patient Education 2022 [employer] 09/26/2023 10:39:53 Insomnia Insomnia Insomnia is a sleep disorder that makes it difficult to fall asleep or stay asleep. Insomnia can cause fatigue, low energy, difficulty concentrating, mood swings, and poor performance at work or school. There are three different ways to classify insomnia: Difficulty falling asleep. Difficulty staying asleep. Waking up too early in the morning. Any type of insomnia can be long-term (chronic) or short-term (acute). Both are common. Short-term insomnia usually lasts for 3 months or less. Chronic insomnia occurs at least three times a week for longer than 3 months. What are the causes? Insomnia may be caused by another condition, situation, or substance, such as: Having certain mental health conditions, such as anxiety and depression. Using caffeine, alcohol, tobacco, or drugs. Having gastrointestinal conditions, such as gastroesophageal reflux disease (GERD). Having certain medical conditions. These include: ?Asthma. ?Alzheimer's disease. ?Stroke. ?Chronic pain. ?An overactive thyroid gland (hyperthyroidism). Other sleep disorders, such as restless legs syndrome and sleep apnea. Menopause. Sometimes, the cause of insomnia may not be known. What increases the risk? Risk factors for insomnia include: Gender. Females are affected more often than males. Age. Insomnia is more common as people get older. Stress and certain medical and mental health conditions. Lack of exercise. Having an irregular work schedule. This may include working night shifts and traveling between different time zones. What are the signs or symptoms? If you have insomnia, the main symptom is having trouble falling asleep or having trouble staying asleep. This may lead to other symptoms, such as: Feeling tired or having low energy. Feeling nervous about going to sleep. Not feeling rested in the morning. Having trouble concentrating. Feeling irritable, anxious, or depressed. How is this diagnosed? This condition may be diagnosed based on: Your symptoms and medical history. Your health care provider may ask about: ?Your sleep habits. ?Any medical conditions you have. ?Your mental health. A physical exam. How is this treated? Treatment for insomnia depends on the cause. Treatment may focus on treating an underlying condition that is causing the insomnia. Treatment may also include: Medicines to help you sleep. Counseling or therapy. Lifestyle adjustments to help you sleep better. Follow these instructions at home: Eating and drinking Limit or avoid alcohol, caffeinated beverages, and products that contain nicotine and tobacco, especially close to bedtime. These can disrupt your sleep. Do not eat a large meal or eat spicy foods right before bedtime. This can lead to digestive discomfort that can make it hard for you to sleep. Sleep habits Keep a sleep diary to help you and your health care provider figure out what could be causing your insomnia. Write down: ?When you sleep. ?When you wake up during the night. ?How well you sleep and how rested you feel the next day. ?Any side effects of medicines you are taking. ?What you eat and drink. Make your bedroom a dark, comfortable place where it is easy to fall asleep. ?Put up shades or blackout curtains to block light from outside. ?Use a white noise machine to block noise. ?Keep the temperature cool. Limit screen use before bedtime. This includes: ?Not watching TV. ?Not using your smartphone, tablet, or computer. Stick to a routine that includes going to bed and waking up at the same times every day and night. This can help you fall asleep faster. Consider making a quiet activity, such as reading, part of your nighttime routine. Try to avoid taking naps during the day so that you sleep better at night. Get out of bed if you are still awake after 15 minutes of trying to sleep. Keep the lights down, but try reading or doing a quiet activity. When you feel sleepy, go back to bed. General instructions Take bmmu-nyr-bemozku and prescription medicines only as told by your health care provider. Exercise regularly as told by your health care provider. However, avoid exercising in the hours right before bedtime. Use relaxation techniques to manage stress. Ask your health care provider to suggest some techniques that may work well for you. These may include: ?Breathing exercises. ?Routines to release muscle tension. ?Visualizing peaceful scenes. Make sure that you drive carefully. Do not drive if you feel very sleepy. Keep all follow-up visits. This is important. Contact a health care provider if: You are tired throughout the day. You have trouble in your daily routine due to sleepiness. You continue to have sleep problems, or your sleep problems get worse. Get help right away if: You have thoughts about hurting yourself or someone else. Get help right away if you feel like you may hurt yourself or others, or have thoughts about taking your own life. Go to your nearest emergency room or: Call 911. Call the National Suicide Prevention Lifeline at or 277. This is open 24 hours a day. Text the Crisis Text Line at 444134. Summary Insomnia is a sleep disorder that makes it difficult to fall asleep or stay asleep. Insomnia can be long-term (chronic) or short-term (acute). Treatment for insomnia depends on the cause. Treatment may focus on treating an underlying condition that is causing the insomnia. Keep a sleep diary to help you and your health care provider figure out what could be causing your insomnia. This information is not intended to replace advice given to you by your health care provider. Make sure you discuss any questions you have with your health care provider. Document Revised: 10/28/2022 Document Reviewed: 10/28/2022 [employer] Patient Education 2022 [employer]. 09/26/2023 10:39:44 Heart Disease Prevention Heart Disease Prevention Heart disease is the leading cause of in the world. Coronary artery disease is the most common cause of heart disease. This condition results when cholesterol and other substances (plaque) build up inside the [place] the blood vessels that supply your heart muscle (arteries). This buildup in arteries is called atherosclerosis. You can take actions to lower your risk of heart disease. How can heart disease affect me? Heart disease can cause many unpleasant symptoms and complications, such as: Chest pain (angina). Reduced or blocked blood flow to your heart. This can cause: ?Irregular heartbeats (arrhythmias). ?Heart attack. ?Heart failure. What can increase my risk? The following factors may make you more likely to develop this condition: High blood pressure (hypertension). High cholesterol. A diet high in saturated fats or trans fats. Obesity. Diabetes. Having a family history of heart disease. Certain lifestyle factors, including: ?Smoking. ?Lack of physical activity. ?Drinking too much alcohol. What actions can I take to prevent heart disease? Nutrition Follow a heart-healthy eating plan as told by your health care provider. Examples include the DASH eating plan. DASH stands for Dietary Approaches to Stop Hypertension. Generally, it is recommended that you: ?Eat less salt (sodium). Ask your health care provider how much sodium is safe for you. Most people should have less than 2,300 mg each day. ?Limit unhealthy fats, such as saturated and trans fats, in your diet. You can do this by eating low-fat dairy products, eating less red meat, and avoiding processed foods. ?Eat healthy fats (omega-3 fatty acids). These are found in fish, such as mackerel or salmon. ?Eat more fruits and vegetables. You should try to fill one-half of your plate with fruits and vegetables at each meal. ?Eat more whole grains. ?Avoid foods and drinks that have added sugars. Try to limit how much added sugar you have to: ?Less than 25 grams a day for women. ?Less than 36 grams a day for men. Lifestyle Get regular exercise. This is one of the most important things you can do for your health. Generally, it is recommended that you: ?Exercise for at least 30 minutes on most days of the week (150 minutes each week). This should be exercise that causes your heart to beat faster (aerobic exercise). ?Add strength exercises on at least 2 days each week. Do not use any products that contain nicotine or tobacco. These products include cigarettes, chewing tobacco, and vaping devices, such as e-cigarettes. These can damage your heart and blood vessels. If you need help quitting, ask your health care provider. Alcohol use Do not drink alcohol if: ?Your health care provider tells you not to drink. ?You are , may be , or are planning to become . If you drink alcohol: ?Limit how much you have to: ?0 1 drink a day for women. ?0 2 drinks a day for men. ?Know how much alcohol is in your drink. In the [place] one drink equals one 12 oz bottle of beer (355 mL), one 5 oz glass of wine (148 mL), or one 1 oz glass of hard liquor (44 mL). Medicines Take xjcw-fdq-cywbbhy and prescription medicines only as told by your health care provider. Work with your health care provider to find out whether it is safe and beneficial for you to take aspirin daily. Make sure that you understand how much to take and what form to take. Depending on your risk factors, your health care provider may prescribe medicines to lower your risk of heart disease or to control related conditions. You may take medicine to: ?Lower cholesterol. ?Control blood pressure. ?Control diabetes. General information Keep your blood pressure under control, as recommended by your health care provider. For most healthy people, the upper number of their blood pressure (systolic) should be no higher than 120, and the lower number (diastolic) no higher than 80. Treatment may be needed if your blood pressure is higher than 130/80. Have your blood pressure checked at least every 2 years. Your health care provider may check your blood pressure more often if you have high blood pressure. After age 20, have your cholesterol checked every 4 6 years. If you have risk factors for heart disease, you may need to have it checked more often. Treatment may be needed if your cholesterol is high. Have your body mass index (BMI) checked every year. Your health care provider can calculate your BMI from your height and weight. Check your waist circumference. It should be: ?No more than 35 inches (89 cm) for women who are not . ?No more than 40 inches (102 cm) for men. Work with your health care provider to lose weight, if needed, or to maintain a healthy weight. Where to find more information: Centers for Disease Control and Prevention: www.cdc.gov/heartdisease [place] [employer]: www.heart.org Summary Heart disease is the leading cause of in the world. Heart disease can cause chest pain, abnormal heart rhythms, heart attack, and heart failure. Some of the risk factors for heart disease include high blood pressure, high cholesterol, and smoking. You can take actions to lower your chances of developing heart disease. Work with your health care provider to reduce your risk by following a heart-healthy diet, being physically active, and controlling your weight, blood pressure, and cholesterol level. This information is not intended to replace advice given to you by your health care provider. Make sure you discuss any questions you have with your health care provider. Document Revised: 07/17/2022 Document Reviewed: 07/17/2022 [employer] Patient Education 2022 [employer]. 09/26/2023 10:39:43 Form - Blood Pressure Record Sheet Blood Pressure Record Sheet To take your blood pressure, you will need a blood pressure machine. You may be prescribed one, or you can buy a blood pressure machine (blood pressure monitor) at your clinic, drug store, or online. When choosing one, look for these features: An automatic monitor that has an arm cuff. A cuff that wraps snugly, but not too tightly, around your upper arm. You should be able to fit only one finger between your arm and the cuff. A device that stores blood pressure reading results. Do not choose a monitor that measures your blood pressure from your wrist or finger. Follow your health care provider's instructions for how to take your blood pressure. To use this form: Get one reading in the morning (a.m.) before you take any medicines. Get one reading in the evening (p.m.) before supper. Take at least two readings with each blood pressure check. This makes sure the results are correct. Wait 1 2 minutes between measurements. Write down the results in the spaces on this form. Repeat this once a week, or as told by your health care provider. Make a follow-up appointment with your health care provider to discuss the results. Blood pressure log Date: a.m. (1st reading) (2nd reading) p.m. (1st reading) (2nd reading) Date: a.m. (1st reading) (2nd reading) p.m. (1st reading) (2nd reading) Date: a.m. (1st reading) (2nd reading) p.m. (1st reading) (2nd reading) Date: a.m. (1st reading) (2nd reading) p.m. (1st reading) (2nd reading) Date: a.m. (1st reading) (2nd reading) p.m. (1st reading) (2nd reading) This information is not intended to replace advice given to you by your health care provider. Make sure you discuss any questions you have with your health care provider. Document Revised: 08/01/2022 Document Reviewed: 08/01/2022 [employer] Patient Education 2022 [employer] 09/26/2023 10:39:42 DASH Eating Plan DASH Eating Plan DASH stands for Dietary Approaches to Stop Hypertension. The DASH eating plan is a healthy eating plan that has been shown to: Reduce high blood pressure (hypertension). Reduce your risk for type 2 diabetes, heart disease, and stroke. Help with weight loss. What are tips for following this plan? Reading food labels Check food labels for the amount of salt (sodium) per serving. Choose foods with less than 5 percent of the Daily Value of sodium. Generally, foods with less than 300 milligrams (mg) of sodium per serving fit into this eating plan. To find whole grains, look for the word whole as the first word in the ingredient list. Shopping Buy products labeled as low-sodium or no salt added. Buy fresh foods. Avoid canned foods and pre-made or frozen meals. Cooking Avoid adding salt when cooking. Use salt-free seasonings or herbs instead of table salt or sea salt. Check with your health care provider or pharmacist before using salt substitutes. Do not spears foods. Cook foods using healthy methods such as baking, boiling, grilling, roasting, and broiling instead. Cook with heart-healthy oils, such as olive, canola, avocado, soybean, or sunflower oil. Meal planning Eat a balanced diet that includes: ?4 or more servings of fruits and 4 or more servings of vegetables each day. Try to fill one-half of your plate with fruits and vegetables. ?6 8 servings of whole grains each day. ?Less than 6 oz (170 g) of lean meat, poultry, or fish each day. A 3-oz (85-g) serving of meat is about the same size as a deck of cards. One egg equals 1 oz (28 g). ?2 3 servings of low-fat dairy each day. One serving is 1 cup (237 mL). ?1 serving of nuts, seeds, or beans 5 times each week. ?2 3 servings of heart-healthy fats. Healthy fats called omega-3 fatty acids are found in foods such as walnuts, flaxseeds, fortified milks, and eggs. These fats are also found in cold-water fish, such as sardines, salmon, and mackerel. Limit how much you eat of: ?Canned or prepackaged foods. ?Food that is high in trans fat, such as some fried foods. ?Food that is high in saturated fat, such as fatty meat. ?Desserts and other sweets, sugary drinks, and other foods with added sugar. ?Full-fat dairy products. Do not salt foods before eating. Do not eat more than 4 egg yolks a week. Try to eat at least 2 vegetarian meals a week. Eat more home-cooked food and less restaurant, buffet, and fast food. Lifestyle When eating at a restaurant, ask that your food be prepared with less salt or no salt, if possible. If you drink alcohol: ?Limit how much you use to: ?0 1 drink a day for women who are not . ?0 2 drinks a day for men. ?Be aware of how much alcohol is in your drink. In the [place] one drink equals one 12 oz bottle of beer (355 mL), one 5 oz glass of wine (148 mL), or one 1 oz glass of hard liquor (44 mL). General information Avoid eating more than 2,300 mg of salt a day. If you have hypertension, you may need to reduce your sodium intake to 1,500 mg a day. Work with your health care provider to maintain a healthy body weight or to lose weight. Ask what an ideal weight is for you. Get at least 30 minutes of exercise that causes your heart to beat faster (aerobic exercise) most days of the week. Activities may include walking, swimming, or biking. Work with your health care provider or dietitian to adjust your eating plan to your individual calorie needs. What foods should I eat? Fruits All fresh, dried, or frozen fruit. Canned fruit in natural juice (without added sugar). Vegetables Fresh or frozen vegetables (raw, steamed, roasted, or grilled). Low-sodium or reduced-sodium tomato and vegetable juice. Low-sodium or reduced-sodium tomato sauce and tomato paste. Low-sodium or reduced-sodium canned vegetables. Grains Whole-grain or whole-wheat bread. Whole-grain or whole-wheat pasta. Brown rice. Oatmeal. Quinoa. Bulgur. Whole-grain and low-sodium cereals. Dian bread. Low-fat, low-sodium crackers. Whole-wheat flour tortillas. Meats and other proteins Skinless chicken or turkey. Ground chicken or turkey. Pork with fat trimmed off. Fish and seafood. Egg whites. Dried beans, peas, or lentils. Unsalted nuts, nut butters, and seeds. Unsalted canned beans. Lean cuts of beef with fat trimmed off. Low-sodium, lean precooked or cured meat, such as sausages or meat loaves. Dairy Low-fat (1%) or fat-free (skim) milk. Reduced-fat, low-fat, or fat-free cheeses. Nonfat, low-sodium ricotta or cottage cheese. Low-fat or nonfat yogurt. Low-fat, low-sodium cheese. Fats and oils Soft margarine without trans fats. Vegetable oil. Reduced-fat, low-fat, or light mayonnaise and salad dressings (reduced-sodium). Canola, safflower, olive, avocado, soybean, and sunflower oils. Avocado. Seasonings and condiments Herbs. Spices. Seasoning mixes without salt. Other foods Unsalted popcorn and pretzels. Fat-free sweets. The items listed above may not be a complete list of foods and beverages you can eat. Contact a dietitian for more information. What foods should I avoid? Fruits Canned fruit in a light or heavy syrup. Fried fruit. Fruit in cream or butter sauce. Vegetables Creamed or fried vegetables. Vegetables in a cheese sauce. Regular canned vegetables (not low-sodium or reduced-sodium). Regular canned tomato sauce and paste (not low-sodium or reduced-sodium). Regular tomato and vegetable juice (not low-sodium or reduced-sodium). Pickles. Olives. Grains Baked goods made with fat, such as croissants, muffins, or some breads. Dry pasta or rice meal packs. Meats and other proteins Fatty cuts of meat. Ribs. Fried meat. Torres. Bologna, salami, and other precooked or cured meats, such as sausages or meat loaves. Fat from the back of a pig (fatback). Bratwurst. Salted nuts and seeds. Canned beans with added salt. Canned or smoked fish. Whole eggs or egg yolks. Chicken or turkey with skin. Dairy Whole or 2% milk, cream, and fdrh-cqk-oqht. Whole or full-fat cream cheese. Whole-fat or sweetened yogurt. Full-fat cheese. Nondairy creamers. Whipped toppings. Processed cheese and cheese spreads. Fats and oils Butter. Stick margarine. Lard. Shortening. Ghee. Torres fat. Tropical oils, such as coconut, palm kernel, or palm oil. Seasonings and condiments Onion salt, garlic salt, seasoned salt, table salt, and sea salt. Worcestershire sauce. Tartar sauce. Barbecue sauce. Teriyaki sauce. Soy sauce, including reduced-sodium. Steak sauce. Canned and packaged gravies. Fish sauce. Oyster sauce. Cocktail sauce. Store-bought horseradish. Ketchup. Mustard. Meat flavorings and tenderizers. Bouillon cubes. Hot sauces. Pre-made or packaged marinades. Pre-made or packaged taco seasonings. Relishes. Regular salad dressings. Other foods Salted popcorn and pretzels. The items listed above may not be a complete list of foods and beverages you should avoid. Contact a dietitian for more information. Where to find more information National Heart, Lung, and Blood [place]: www.nhlbi.nih.gov [place] [employer]: www.heart.org Academy of Nutrition and Dietetics: www.eatright.org National Kidney Foundation: www.kidney.org Summary The DASH eating plan is a healthy eating plan that has been shown to reduce high blood pressure (hypertension). It may also reduce your risk for type 2 diabetes, heart disease, and stroke. When on the DASH eating plan, aim to eat more fresh fruits and vegetables, whole grains, lean proteins, low-fat dairy, and heart-healthy fats. With the DASH eating plan, you should limit salt (sodium) intake to 2,300 mg a day. If you have hypertension, you may need to reduce your sodium intake to 1,500 mg a day. Work with your health care provider or dietitian to adjust your eating plan to your individual calorie needs. This information is not intended to replace advice given to you by your health care provider. Make sure you discuss any questions you have with your health care provider. Document Revised: 10/20/2020 Document Reviewed: 10/20/2020 [employer] Patient Education 2022 [employer]. 09/26/2023 10:39:41 Acute Bronchitis, Adult Acute Bronchitis, Adult Acute bronchitis is sudden inflammation of the main airways (bronchi) that come off the windpipe (trachea) in the lungs. The swelling causes the airways to get smaller and make more mucus than normal. This can make it hard to breathe and can cause coughing or noisy breathing (wheezing). Acute bronchitis may last several weeks. The cough may last longer. Allergies, asthma, and exposure to smoke may make the condition worse. What are the causes? This condition can be caused by germs and by substances that irritate the lungs, including: Cold and flu viruses. The most common cause of this condition is the virus that causes the common cold. Bacteria. This is less common. Breathing in substances that irritate the lungs, including: ?Smoke from cigarettes and other forms of tobacco. ?Dust and pollen. ?Fumes from household cleaning products, gases, or burned fuel. ?Indoor or outdoor air pollution. What increases the risk? The following factors may make you more likely to develop this condition: A weak body's defense system, also called the immune system. A condition that affects your lungs and breathing, such as asthma. What are the signs or symptoms? Common symptoms of this condition include: Coughing. This may bring up clear, yellow, or green mucus from your lungs (sputum). Wheezing. Runny or stuffy nose. Having too much mucus in your lungs (chest congestion). Shortness of breath. Aches and pains, including sore throat or chest. How is this diagnosed? This condition is usually diagnosed based on: Your symptoms and medical history. A physical exam. You may also have other tests, including tests to rule out other conditions, such as pneumonia. These tests include: A test of lung function. Test of a mucus sample to look for the presence of bacteria. Tests to check the oxygen level in your blood. Blood tests. Chest X-ray. How is this treated? Most cases of acute bronchitis clear up over time without treatment. Your health care provider may recommend: Drinking more fluids to help thin your mucus so it is easier to cough up. Taking inhaled medicine (inhaler) to improve air flow in and out of your lungs. Using a vaporizer or a humidifier. These are machines that add water to the air to help you breathe better. Taking a medicine that thins mucus and clears congestion (expectorant). Taking a medicine that prevents or stops coughing (cough suppressant). It is notcommon to take an antibiotic medicine for this condition. Follow these instructions at home: Take oxjc-ltk-eolmkvq and prescription medicines only as told by your health care provider. Use an inhaler, vaporizer, or humidifier as told by your health care provider. Take two teaspoons (10 mL) of honey at bedtime to lessen coughing at night. Drink enough fluid to keep your urine pale yellow. Do not use any products that contain nicotine or tobacco. These products include cigarettes, chewing tobacco, and vaping devices, such as e-cigarettes. If you need help quitting, ask your health care provider. Get plenty of rest. Return to your normal activities as told by your health care provider. Ask your health care provider what activities are safe for you. Keep all follow-up visits. This is important. How is this prevented? To lower your risk of getting this condition again: Wash your hands often with soap and water for at least 20 seconds. If soap and water are not available, use hand internet assessor. Avoid contact with people who have cold symptoms. Try not to touch your mouth, nose, or eyes with your hands. Avoid breathing in smoke or chemical fumes. Breathing smoke or chemical fumes will make your condition worse. Get the flu shot every year. Contact a health care provider if: Your symptoms do not improve after 2 weeks. You have trouble coughing up the mucus. Your cough keeps you awake at night. You have a fever. Get help right away if you: Cough up blood. Feel pain in your chest. Have severe shortness of breath. Faint or keep feeling like you are going to faint. Have a severe headache. Have a fever or chills that get worse. These symptoms may represent a serious problem that is an emergency. Do not wait to see if the symptoms will go away. Get medical help right away. Call your local emergency services (911 in the [place] Do not drive yourself to the hospital. Summary Acute bronchitis is inflammation of the main airways (bronchi) that come off the windpipe (trachea) in the lungs. The swelling causes the airways to get smaller and make more mucus than normal. Drinking more fluids can help thin your mucus so it is easier to cough up. Take fldp-ncb-vjcbzff and prescription medicines only as told by your health care provider. Do not use any products that contain nicotine or tobacco. These products include cigarettes, chewing tobacco, and vaping devices, such as e-cigarettes. If you need help quitting, ask your health care provider. Contact a health care provider if your symptoms do not improve after 2 weeks. This information is not intended to replace advice given to you by your health care provider. Make sure you discuss any questions you have with your health care provider. Document Revised: 03/20/2022 Document Reviewed: 03/20/2022 [employer] Patient Education 2022 [employer]. Follow Up Care 09/19/2023 09:43:18 With:Vilma John [facility], MED Address: [address], [address] [facility] [address] [place] [address]- When:Within 1 Month(s) Comments:Discussed labs, annual wellness [facility] 06-29-2023 Hospital Discharge instructions Patient Education 06/29/2023 16:49:31 Hypertension, Adult Hypertension, Adult High blood pressure (hypertension) is when the force of blood pumping through the arteries is too strong. The arteries are the blood vessels that carry blood from the heart throughout the body. Hypertension forces the heart to work harder to pump blood and may cause arteries to become narrow or stiff. Untreated or uncontrolled hypertension can lead to a heart attack, heart failure, a stroke, kidney disease, and other problems. A blood pressure reading consists of a higher number over a lower number. Ideally, your blood pressure should be below 120/80. The first ( top ) number is called the systolic pressure. It is a measure of the pressure in your arteries as your heart beats. The second ( bottom ) number is called the diastolic pressure. It is a measure of the pressure in your arteries as the heart relaxes. What are the causes? The exact cause of this condition is not known. There are some conditions that result in high blood pressure. What increases the risk? Certain factors may make you more likely to develop high blood pressure. Some of these risk factors are under your control, including: Smoking. Not getting enough exercise or physical activity. Being overweight. Having too much fat, sugar, calories, or salt (sodium) in your diet. Drinking too much alcohol. Other risk factors include: Having a personal history of heart disease, diabetes, high cholesterol, or kidney disease. Stress. Having a family history of high blood pressure and high cholesterol. Having obstructive sleep apnea. Age. The risk increases with age. What are the signs or symptoms? High blood pressure may not cause symptoms. Very high blood pressure (hypertensive crisis) may cause: Headache. Fast or irregular heartbeats (palpitations). Shortness of breath. Nosebleed. Nausea and vomiting. Vision changes. Severe chest pain, dizziness, and seizures. How is this diagnosed? This condition is diagnosed by measuring your blood pressure while you are seated, with your arm resting on a flat surface, your legs uncrossed, and your feet flat on the floor. The cuff of the blood pressure monitor will be placed directly against the skin of your upper arm at the level of your heart. Blood pressure should be measured at least twice using the same arm. Certain conditions can cause a difference in blood pressure between your right and left arms. If you have a high blood pressure reading during one visit or you have normal blood pressure with other risk factors, you may be asked to: Return on a different day to have your blood pressure checked again. Monitor your blood pressure at home for 1 week or longer. If you are diagnosed with hypertension, you may have other blood or imaging tests to help your health care provider understand your overall risk for other conditions. How is this treated? This condition is treated by making healthy lifestyle changes, such as eating healthy foods, exercising more, and reducing your alcohol intake. You may be referred for counseling on a healthy diet and physical activity. Your health care provider may prescribe medicine if lifestyle changes are not enough to get your blood pressure under control and if: Your systolic blood pressure is above 130. Your diastolic blood pressure is above 80. Your personal target blood pressure may vary depending on your medical conditions, your age, and other factors. Follow these instructions at home: Eating and drinking Eat a diet that is high in fiber and potassium, and low in sodium, added sugar, and fat. An example of this eating plan is called the DASH diet. DASH stands for Dietary Approaches to Stop Hypertension. To eat this way: ?Eat plenty of fresh fruits and vegetables. Try to fill one half of your plate at each meal with fruits and vegetables. ?Eat whole grains, such as whole-wheat pasta, brown rice, or whole-grain bread. Fill about one fourth of your plate with whole grains. ?Eat or drink low-fat dairy products, such as skim milk or low-fat yogurt. ?Avoid fatty cuts of meat, processed or cured meats, and poultry with skin. Fill about one fourth of your plate with lean proteins, such as fish, chicken without skin, beans, eggs, or tofu. ?Avoid pre-made and processed foods. These tend to be higher in sodium, added sugar, and fat. Reduce your daily sodium intake. Many people with hypertension should eat less than 1,500 mg of sodium a day. Do not drink alcohol if: ?Your health care provider tells you not to drink. ?You are , may be , or are planning to become . If you drink alcohol: ?Limit how much you have to: ?0 1 drink a day for women. ?0 2 drinks a day for men. ?Know how much alcohol is in your drink. In the [place] one drink equals one 12 oz bottle of beer (355 mL), one 5 oz glass of wine (148 mL), or one 1 oz glass of hard liquor (44 mL). Lifestyle Work with your health care provider to maintain a healthy body weight or to lose weight. Ask what an ideal weight is for you. Get at least 30 minutes of exercise that causes your heart to beat faster (aerobic exercise) most days of the week. Activities may include walking, swimming, or biking. Include exercise to strengthen your muscles (resistance exercise), such as Pilates or lifting weights, as part of your weekly exercise routine. Try to do these types of exercises for 30 minutes at least 3 days a week. Do not use any products that contain nicotine or tobacco. These products include cigarettes, chewing tobacco, and vaping devices, such as e-cigarettes. If you need help quitting, ask your health care provider. Monitor your blood pressure at home as told by your health care provider. Keep all follow-up visits. This is important. Medicines Take htux-zqj-gkxbbcu and prescription medicines only as told by your health care provider. Follow directions carefully. Blood pressure medicines must be taken as prescribed. Do not skip doses of blood pressure medicine. Doing this puts you at risk for problems and can make the medicine less effective. Ask your health care provider about side effects or reactions to medicines that you should watch for. Contact a health care provider if you: Think you are having a reaction to a medicine you are taking. Have headaches that keep coming back (recurring). Feel dizzy. Have swelling in your ankles. Have trouble with your vision. Get help right away if you: Develop a severe headache or confusion. Have unusual weakness or numbness. Feel faint. Have severe pain in your chest or abdomen. Vomit repeatedly. Have trouble breathing. These symptoms may be an emergency. Get help right away. Call 911. Do not wait to see if the symptoms will go away. Do not drive yourself to the hospital. Summary Hypertension is when the force of blood pumping through your arteries is too strong. If this condition is not controlled, it may put you at risk for serious complications. Your personal target blood pressure may vary depending on your medical conditions, your age, and other factors. For most people, a normal blood pressure is less than 120/80. Hypertension is treated with lifestyle changes, medicines, or a combination of both. Lifestyle changes include losing weight, eating a healthy, low-sodium diet, exercising more, and limiting alcohol. This information is not intended to replace advice given to you by your health care provider. Make sure you discuss any questions you have with your health care provider. Document Revised: 09/24/2022 Document Reviewed: 09/24/2022 [employer] Patient Education 2022 [employer]. 06/29/2023 16:49:29 Health Maintenance, Female Health Maintenance, Female Adopting a healthy lifestyle and getting preventive care are important in promoting health and wellness. Ask your health care provider about: The right schedule for you to have regular tests and exams. Things you can do on your own to prevent diseases and keep yourself healthy. What should I know about diet, weight, and exercise? Eat a healthy diet Eat a diet that includes plenty of vegetables, fruits, low-fat dairy products, and lean protein. Do not eat a lot of foods that are high in solid fats, added sugars, or sodium. Maintain a healthy weight Body mass index (BMI) is used to identify weight problems. It estimates body fat based on height and weight. Your health care provider can help determine your BMI and help you achieve or maintain a healthy weight. Get regular exercise Get regular exercise. This is one of the most important things you can do for your health. Most adults should: Exercise for at least 150 minutes each week. The exercise should increase your heart rate and make you sweat (moderate-intensity exercise). Do strengthening exercises at least twice a week. This is in addition to the moderate-intensity exercise. Spend less time sitting. Even light physical activity can be beneficial. Watch cholesterol and blood lipids Have your blood tested for lipids and cholesterol at 20 years of age, then have this test every 5 years. Have your cholesterol levels checked more often if: Your lipid or cholesterol levels are high. You are older than 40 years of age. You are at high risk for heart disease. What should I know about cancer screening? Depending on your health history and family history, you may need to have cancer screening at various ages. This may include screening for: Breast cancer. Cervical cancer. Colorectal cancer. Skin cancer. Lung cancer. What should I know about heart disease, diabetes, and high blood pressure? Blood pressure and heart disease High blood pressure causes heart disease and increases the risk of stroke. This is more likely to develop in people who have high blood pressure readings or are overweight. Have your blood pressure checked: ?Every 3 5 years if you are 18 39 years of age. ?Every year if you are 40 years old or older. Diabetes Have regular diabetes screenings. This checks your fasting blood sugar level. Have the screening done: Once every three years after age 40 if you are at a normal weight and have a low risk for diabetes. More often and at a younger age if you are overweight or have a high risk for diabetes. What should I know about preventing infection? Hepatitis B If you have a higher risk for hepatitis B, you should be screened for this virus. Talk with your health care provider to find out if you are at risk for hepatitis B infection. Hepatitis C Testing is recommended for: Everyone born from 1945 through 1965. Anyone with known risk factors for hepatitis C. Sexually transmitted infections (STIs) Get screened for STIs, including gonorrhea and chlamydia, if: ?You are sexually active and are younger than 24 years of age. ?You are older than 24 years of age and your health care provider tells you that you are at risk for this type of infection. ?Your sexual activity has changed since you were last screened, and you are at increased risk for chlamydia or gonorrhea. Ask your health care provider if you are at risk. Ask your health care provider about whether you are at high risk for HIV. Your health care provider may recommend a prescription medicine to help prevent HIV infection. If you choose to take medicine to prevent HIV, you should first get tested for HIV. You should then be tested every 3 months for as long as you are taking the medicine. If you are about to stop having your period (premenopausal) and you may become , seek counseling before you get . Take 400 to 800 micrograms (mcg) of folic acid every day if you become . Ask for control (contraception) if you want to prevent . Osteoporosis and menopause Osteoporosis is a disease in which the bones lose minerals and strength with aging. This can result in bone fractures. If you are 65 years old or older, or if you are at risk for osteoporosis and fractures, ask your health care provider if you should: Be screened for bone loss. Take a calcium or vitamin D supplement to lower your risk of fractures. Be given hormone replacement therapy (HRT) to treat symptoms of menopause. Follow these instructions at home: Alcohol use Do not drink alcohol if: ?Your health care provider tells you not to drink. ?You are , may be , or are planning to become . If you drink alcohol: ?Limit how much you have to: ?0 1 drink a day. ?Know how much alcohol is in your drink. In the [place] one drink equals one 12 oz bottle of beer (355 mL), one 5 oz glass of wine (148 mL), or one 1 oz glass of hard liquor (44 mL). Lifestyle Do not use any products that contain nicotine or tobacco. These products include cigarettes, chewing tobacco, and vaping devices, such as e-cigarettes. If you need help quitting, ask your health care provider. Do not use street drugs. Do not share needles. Ask your health care provider for help if you need support or information about quitting drugs. General instructions Schedule regular health, dental, and eye exams. Stay current with your vaccines. Tell your health care provider if: ?You often feel depressed. ?You have ever been abused or do not feel safe at home. Summary Adopting a healthy lifestyle and getting preventive care are important in promoting health and wellness. Follow your health care provider's instructions about healthy diet, exercising, and getting tested or screened for diseases. Follow your health care provider's instructions on monitoring your cholesterol and blood pressure. This information is not intended to replace advice given to you by your health care provider. Make sure you discuss any questions you have with your health care provider. Document Revised: 04/08/2022 Document Reviewed: 04/08/2022 [employer] Patient Education 2022 [employer] 06/29/2023 16:49:28 Health Maintenance After Age 65 Health Maintenance After Age 65 After age 65, you are at a higher risk for certain long-term diseases and infections as well as injuries from falls. Falls are a major cause of broken bones and head injuries in people who are older than age 65. Getting regular preventive care can help to keep you healthy and well. Preventive care includes getting regular testing and making lifestyle changes as recommended by your health care provider. Talk with your health care provider about: Which screenings and tests you should have. A screening is a test that checks for a disease when you have no symptoms. A diet and exercise plan that is right for you. What should I know about screenings and tests to prevent falls? Screening and testing are the best ways to find a health problem early. Early diagnosis and treatment give you the best chance of managing medical conditions that are common after age 65. Certain conditions and lifestyle choices may make you more likely to have a fall. Your health care provider may recommend: Regular vision checks. Poor vision and conditions such as cataracts can make you more likely to have a fall. If you wear glasses, make sure to get your prescription updated if your vision changes. Medicine review. Work with your health care provider to regularly review all of the medicines you are taking, including akgz-ewt-xjlpzoo medicines. Ask your health care provider about any side effects that may make you more likely to have a fall. Tell your health care provider if any medicines that you take make you feel dizzy or sleepy. Strength and balance checks. Your health care provider may recommend certain tests to check your strength and balance while standing, walking, or changing positions. Foot health exam. Foot pain and numbness, as well as not wearing proper footwear, can make you more likely to have a fall. Screenings, including: ?Osteoporosis screening. Osteoporosis is a condition that causes the bones to get weaker and break more easily. ?Blood pressure screening. Blood pressure changes and medicines to control blood pressure can make you feel dizzy. ?Depression screening. You may be more likely to have a fall if you have a fear of falling, feel depressed, or feel unable to do activities that you used to do. ?Alcohol use screening. Using too much alcohol can affect your balance and may make you more likely to have a fall. Follow these instructions at home: Lifestyle Do not drink alcohol if: ?Your health care provider tells you not to drink. If you drink alcohol: ?Limit how much you have to: ?0 1 drink a day for women. ?0 2 drinks a day for men. ?Know how much alcohol is in your drink. In the [place] one drink equals one 12 oz bottle of beer (355 mL), one 5 oz glass of wine (148 mL), or one 1 oz glass of hard liquor (44 mL). Do not use any products that contain nicotine or tobacco. These products include cigarettes, chewing tobacco, and vaping devices, such as e-cigarettes. If you need help quitting, ask your health care provider. Activity Follow a regular exercise program to stay fit. This will help you maintain your balance. Ask your health care provider what types of exercise are appropriate for you. If you need a cane or walker, use it as recommended by your health care provider. Wear supportive shoes that have nonskid soles. Safety Remove any tripping hazards, such as rugs, cords, and clutter. Install safety equipment such as grab bars in bathrooms and safety rails on stairs. Keep rooms and walkways well-lit. General instructions Talk with your health care provider about your risks for falling. Tell your health care provider if: ?You fall. Be sure to tell your health care provider about all falls, even ones that seem minor. ?You feel dizzy, tiredness (fatigue), or off-balance. Take jdvq-tsl-sqinfbi and prescription medicines only as told by your health care provider. These include supplements. Eat a healthy diet and maintain a healthy weight. A healthy diet includes low-fat dairy products, low-fat (lean) meats, and fiber from whole grains, beans, and lots of fruits and vegetables. Stay current with your vaccines. Schedule regular health, dental, and eye exams. Summary Having a healthy lifestyle and getting preventive care can help to protect your health and wellness after age 65. Screening and testing are the best way to find a health problem early and help you avoid having a fall. Early diagnosis and treatment give you the best chance for managing medical conditions that are more common for people who are older than age 65. Falls are a major cause of broken bones and head injuries in people who are older than age 65. Take precautions to prevent a fall at home. Work with your health care provider to learn what changes you can make to improve your health and wellness and to prevent falls. This information is not intended to replace advice given to you by your health care provider. Make sure you discuss any questions you have with your health care provider. Document Revised: 04/08/2022 Document Reviewed: 04/08/2022 [employer] Patient Education 2022 [employer]. Follow Up Care 05/20/2023 09:31:12 With:Camryn Alves Address: [address], [place] [address]- When:Within 1 Month(s) Comments:f/u CHRISTIANO, med recheck: hydroxyzine. recheck BP With:Camryn Alves Address: [address], [facility] [place] [address]- When:Within 6 Month(s) Comments:[facility] 12-17-2022 Evaluation + Plan note Future Scheduled TestsVitamin D 25 Hydroxy 12/17/22 [facility] [place] 08-02-2021 Evaluation + Plan note Future Scheduled TestsUS Breast Unilateral Rt Complete 08/02/21 [facility] 04-09-2021 Note HNO ID: [id number] Author: RT Quintin(R) Service: ? Author Type: Seafood Preparer Type: Progress Notes Filed: 04/09/2021 3:21 PM Note Text: Radiology Service Progress Note PATIENT NAME: Kermit Rosen DATE OF SERVICE: April 09, 2021 TIME: 3:21 PM PATIENT IDENTITY VERIFICATION COMPLETED USING TWO (2) IDENTIFIERS: Name and Date of confirmed by patient verbally. FALL SCREENING: Has the patient had 2 falls in the last year or 1 fall with injury or currently using an Ambulatory Assistive Device (Walker, Cane, Wheelchair, Crutches, etc.)? No PATIENT GENDER DATA: Female. status: : No status: NO. PATIENT RELEVANT IMPLANT DATA REVIEWED: Yes RADIOLOGY DEPARTMENT: General X-ray: Exam(s) Completed: Upper Extremity X-Ray(s): Hand, bilateral PERIPHERAL IV DATA: Not applicable SIGNED BY: RT Quintin(R) April 09, 2021 3:21 PM [facility] 04-09-2021 Note HNO ID: [id number] Author: Nico Newell MD Service: ? Author Type: Physician Type: Progress Notes Filed: 04/09/2021 5:09 PM Note Text: NEW CONSULT:RHEUMATOLOGY SERVICE SERVICE DATE: 04/09/2021 SERVICE TIME: 2:09 PM REASON FOR CONSULT: +YOSELIN REQUESTING PHYSICIAN: Cristin Roblero CNP [address] [facility] [employer] [address] PRIMARY CARE PHYSICIAN: Cristin Roblero CNP, COMPLIANCE ADMINISTRATOR Patient's Name: Kermit Rosen 1950 [address] [facility] [address] Accompanied by: self This consult was requested for my medical opinion regarding the rheumatologic evaluation of the patient's +YOSELIN problems, and my final recommendations will be communicated to the requesting health care provider by way of the shared medical record for internal providers or letter via the [employer] for external providers. April 09, 2021 SUBJECTIVE Ms. Rosen is a 71 year old female who presents for +YOSELIN eval. ~5-6years hashimotos, low energy, constipation, hairloss(still has) Better with thyroid medication For years dry eyes/lips/mouth, vaginal area 5years neck pain 2-3years of hands numb when sleeping 2-3months of L>R hand pain, worse with activity Better with ice pack Worse in AM 01/2020 +COVID and after 2days in ICU Patient was in quarantine, asymptomatic, + for antibiotics Numbness and tingling R great toe when driving Has spine curvature Weak hands/tingling Has braces Interested in medical marijuana for breast cancer Not interested in arthritis/osteoporosis medications due to side effect concerns Reports pain 10 at it's worse No falls/fx/trauma/illness/oral sores/rash/hairloss/jaw pain/dysphagia/epistaxis/hemoptysi s. No adverse effects with meds. No other complaints. Patient denies fever, chills, cp, dyspnea, nausea, vomiting, night sweats, scalp tenderness, visual changes, vargas, bowel/bladder changes, weight changes or other complaints. COMPLETE REVIEW OF SYSTEMS: RHEUM. ROS:R dominant Joint pain: yes -L>R hands Joint swelling: yes L thenar area Am stiffness: yes 30minutes Low back pain: yes Dactylitis: no H/o precedent/frequent infection(s): no Enthesopathy/Jericho's/heel/planta r tenderness: no Skin thickening, psoriasis, photosensitivity, purpura: no Nail changes: stress Alpecia, patchy: yes Eye inflammation: glasses SICCA: dry eyes/lips/mouth Oral/nasal/genital ulcers: no GI problems-diarrhea/bleeding/IBD/Glu ten intolerence/Dysphagia: gerd Raynaud's phenomenon/digital ulcers: no Organ inv-Serositis: no Lung disease/ILD: no Myopathy/proximal muscle weakness: no Abnormal Urine or urethritis: no Renal/liver disease: kidney stone PARTNER CCO/PNS/sz/cva/cancer disease: R breast cancer HEME-Cytopenias/LAD/Clots: no Fevers: no Fatigue: yes, sleeps 6-8 hr/night PMR/GCA ROS: negative Patient denies history of Gout or Pseudogout, Psoriasis, Rheumatic Fever, PUD, Liver Disease, Hepatitis , Kidney Disease, DM, CAD, Dyslipidemia, PAD, Sinusitis, Asthma, TB infection or exposure, Pneumonias, Anemia, Seizures, Stroke, MS, Clots, Transfusions, Tattoos and Alcohol dependency. Other ROS:The remainder of the review of systems is negative. All other reviewed and negative other than HPI. PATIENT REPORTS: Cardiac stress test:2018 abnormal stress test, 40% stenosis Breast exam:see above Pap exam: normal, last menses 50y/o, temporarily/now not taking hormones; G3, P3, no miscarriage Colonoscopy: benign colon polyps, hemorrhoids Bone Density:osteoporosis repeat due this year Not interested in fosamax History of Fractures:no Height Loss:2 IMMUNIZATION HX: Pneumovax yes Flu shot yes Tetanus yes No COVID vaccine Last PPD: no PAST MEDICAL HISTORY: PMH chronic sinusitis allergic rhinitis, anxiety, depression, vaginal atrophy, essential htn, occipital neuralgia, CAD, vertigo,gerd, izzy, DCIS, kidney stone, benign colon polyps, hemorrhoids, s/p R breast lumpectomy 02/02/21 (no chemo/radiation), s/p R sentinel node, s/p tonsillectomy, s/p tubal ligation PAST SURGICAL HISTORY: s/p R breast lumpectomy 02/02/21 (no chemo/radiation), s/p R sentinel node, s/p tonsillectomy, s/p tubal ligation FAMILY HISTORY: raised in foster home, brother-arthritis;6brothers (3died);children-healthy SOCIAL HISTORY: Job retired x 14years Smoking no etoh once a week wine No gout MEDICATIONS: reviewed medlist April 09, 2021 Calcium no Vitamin D 2000 International Units daily with food CURRENT ALLERGIES: reviewed today propranolol hives Moderate Active doxycycline Yeast infection ? Active lisinopril Unknown ? Active diclofenac sodium BP rises Mild Active Citalopram Hydrobromide Unknown Moderate Active CeleXA Unknown ? Active hydroCHLOROthiazide Electrolyte disturbance TESTS:All Diagnostic tests reviewed for today's visit: Outside 02/22/21 normal tsh 2.94, vitamin b12-592, vitamin D 54.2; PHYSICAL EXAM:reviewed vitals (more content not included)... [facility] Evaluation + Plan note Future Appointments Appointment Date:09/12/2022 10:20:00 AM Scheduled Provider:Malinda Rubio NP Location:[facility] Appointment Type: Open Diagnostic Tests PendingT3 Free 09/07/22Estradiol Level 09/07/22Estrogens Total 09/07/22Testosterone F&T 09/07/22Progesterone Level 09/07/22DHEA 09/07/22DHEAS 09/07/22 [facility] Evaluation + Plan note Future Appointments Appointment Date:01/28/2023 10:20:00 AM Scheduled Provider:Cory JOSHUA MD Location:[facility] Appointment Type: Post Op 15 [facility] Evaluation + Plan note Future Appointments Appointment Date:09/22/2023 11:00:00 AM Scheduled Provider:Camryn Alves Location:[facility] Appointment Type: Open Future Scheduled TestsTSH With T4fr Reflex 08/19/23Vitamin D 25 Hydroxy 08/19/23CBC w/ Auto Diff 08/19/23Comprehensive Metabolic Panel 08/19/23Lipid Panel 08/19/23XR Chest 2 Views 08/19/23 [facility] Evaluation + Plan note Future Appointments Appointment Date:10/29/2023 10:00:00 AM Scheduled Provider:Vilma John Location:[facility] Appointment Type: Open Future Scheduled TestsDHEA 09/26/23Estrogens Total 09/26/23TSH With T4fr Reflex 08/19/23Vitamin D 25 Hydroxy 08/19/23CBC w/ Auto Diff 08/19/23CBC w/ Auto Diff 09/26/23Comprehensive Metabolic Panel 08/19/23Comprehensive Metabolic Panel 09/26/23Lipid Panel 08/19/23Lipid Panel 09/26/23Progesterone Level 09/26/23Testosterone Level Total 09/26/23 [facility] Evaluation + Plan note Future Appointments Appointment Date:10/29/2023 10:00:00 AM Scheduled Provider:Vilma John Location:[facility] Appointment Type: Open Diagnostic Tests PendingProgesterone Level 10/18/23Estrogens Total 10/18/23Testosterone Level Total 10/18/23DHEA 10/18/23 Future Scheduled TestsTSH With T4fr Reflex 08/19/23Vitamin D 25 Hydroxy 08/19/23CBC w/ Auto Diff 08/19/23Comprehensive Metabolic Panel 08/19/23Lipid Panel 08/19/23 [facility] Evaluation + Plan note Future Appointments Appointment Date:05/26/2024 11:20:00 AM Scheduled Provider:Vilma John Location:[facility] Appointment Type: Open Appointment Date:05/26/2024 01:00:00 PM Scheduled Provider: Location:[facility] Appointment Type: Medicare Wellness Subsequent Future Scheduled TestsTSH With T4fr Reflex 10/30/23TSH With T4fr Reflex 08/19/23Vitamin D 25 Hydroxy 10/30/23Vitamin D 25 Hydroxy 08/19/23CBC w/ Auto Diff 08/19/23Comprehensive Metabolic Panel 08/19/23Lipid Panel 08/19/23 [facility] Evaluation + Plan note Future Appointments Appointment Date:05/26/2024 11:20:00 AM Scheduled Provider:Vilma John Location:[facility] Appointment Type: Open Appointment Date:05/26/2024 01:00:00 PM Scheduled Provider: Location:[facility] Appointment Type: Medicare Wellness Subsequent Future Scheduled TestsSedimentation Rate Automated 01/15/24TSH With T4fr Reflex 10/30/23TSH With T4fr Reflex 08/19/23Vitamin D 25 Hydroxy 10/30/23Vitamin D 25 Hydroxy 08/19/23CBC w/ Auto Diff 08/19/23C-Reactive Protein 01/15/24Free T4 01/15/24Vitamin B12 Level 01/15/24MRA Neck w/o Contrast 01/15/24MRI Brain w/ + w/o Contrast 01/15/24MRI Spine Cervical w/o Contrast 01/15/24 [facility] Evaluation + Plan note Future Appointments Appointment Date:01/22/2024 06:00:00 PM Scheduled [facility] () Appointment Date:05/26/2024 11:20:00 AM Scheduled Provider:Vilma John Location:[facility] Appointment Type: Open Appointment Date:05/26/2024 01:00:00 PM Scheduled Provider: Location:[facility] Appointment Type:FM Medicare Wellness Subsequent Future Scheduled TestsSedimentation Rate Automated 01/15/24TSH With T4fr Reflex 10/30/23TSH With T4fr Reflex 08/19/23Vitamin D 25 Hydroxy 10/30/23Vitamin D 25 Hydroxy 08/19/23CBC w/ Auto Diff 08/19/23C-Reactive Protein 01/15/24Free T4 01/15/24Vitamin B12 Level 01/15/24MRI Brain w/ + w/o Contrast 01/22/24 [facility] Evaluation + Plan note Future Appointments Appointment Date:05/26/2024 11:20:00 AM Scheduled Provider[facility] Type: Open Appointment Date:05/26/2024 01:00:00 PM Scheduled Provider: Location:[facility] Appointment Type: Medicare Wellness Subsequent Future Scheduled TestsSedimentation Rate Automated 01/15/24TSH With T4fr Reflex 10/30/23TSH With T4fr Reflex 08/19/23Vitamin D 25 Hydroxy 10/30/23Vitamin D 25 Hydroxy 08/19/23CBC w/ Auto Diff 08/19/23C-Reactive Protein 01/15/24Free T4 01/15/24Vitamin B12 Level 01/15/24 [facility] Evaluation + Plan note Future Appointments Appointment Date:05/26/2024 11:20:00 AM Scheduled Provider:Vilma John [place] [place] [facility] Appointment Type: Open Appointment Date:05/26/2024 01:00:00 PM Scheduled Provider: Location:[facility] Appointment Type: Medicare Wellness Subsequent Future Scheduled TestsTSH With T4fr Reflex 10/30/23TSH With T4fr Reflex 08/19/23Vitamin D 25 Hydroxy 10/30/23Vitamin D 25 Hydroxy 08/19/23CBC w/ Auto Diff 08/19/23 [facility] Evaluation + Plan note Future Appointments Appointment Date:05/12/2024 02:40:00 PM Scheduled Provider:Vilma John [place] [place] [facility] Appointment Type: Open Appointment Date:05/26/2024 11:20:00 AM Scheduled Provider:Vilma John Location[place] [place] [facility] Appointment Type: Open Appointment Date:05/26/2024 01:00:00 PM Scheduled Provider: Location:[facility] Appointment Type: Medicare Wellness Subsequent Future Scheduled TestsTSH With T4fr Reflex 10/30/23TSH With T4fr Reflex 08/19/23Vitamin D 25 Hydroxy 10/30/23Vitamin D 25 Hydroxy 08/19/23CBC w/ Auto Diff 08/19/23 [facility] Evaluation + Plan note Future Appointments Appointment Date:05/26/2024 11:20:00 AM Scheduled Provider:Vilma John Location[place] [place] [facility] Appointment Type: Open Appointment Date:05/26/2024 01:00:00 PM Scheduled Provider: Location:[facility] Appointment Type: Medicare Wellness Subsequent Future Scheduled TestsIgE, Quant 05/12/24Complement Total (CH50) 05/12/24ANA w/Reflex if POS 05/12/24IgA, Quant. 05/12/24IgG, Quant. 05/12/24IgM, Quant 05/12/24TSH With T4fr Reflex 08/19/23TSH With T4fr Reflex 05/12/24Vitamin D 25 Hydroxy 08/19/23Vitamin D 25 Hydroxy 05/12/24Basic Metabolic Panel 05/12/24CBC w/ Auto Diff 08/19/23CBC w/ Auto Diff 05/12/24 [facility] Evaluation + Plan note Future Appointments Appointment Date:05/26/2024 11:20:00 AM Scheduled Provider:Vilma John Location:[facility] Appointment Type: Open Appointment Date:05/26/2024 01:00:00 PM Scheduled Provider: Location:[facility] Appointment Type:FM Medicare Wellness Subsequent Diagnostic Tests PendingVitamin D 25 Hydroxy 05/13/24IgA, Quant. 05/13/24IgG, Quant. 05/13/24IgM, Quant 05/13/24IgE, Quant 05/13/24ANA w/Reflex if POS 05/13/24Complement Total (CH50) 05/13/24 Future Scheduled TestsTSH With T4fr Reflex 08/19/23Vitamin D 25 Hydroxy 08/19/23CBC w/ Auto Diff 08/19/23 [facility] Evaluation + Plan note Future Appointments Appointment Date:08/25/2024 10:00:00 AM Scheduled Provider:Vilma John Location:[facility] Appointment Type: Open Appointment Date:05/25/2025 02:30:00 PM Scheduled Provider: Location:[facility] Appointment Type:FM Medicare Wellness Subsequent Future Scheduled TestsTSH With T4fr Reflex 08/19/23Vitamin D 25 Hydroxy 08/19/23CBC w/ Auto Diff 08/19/23 [facility] Evaluation note Diagnosis Bilateral hand pain Pain in limb [facility] noteNo assessment information availableVeterans [facility] Administration Work Phone: Hospital course Narrative No data available for this section [facility] No data available for this section [facility] No data available for this section [facility] Summary Purpose Family History No Family History Records FoundUnknown Family Member Name Dates Details Family history of cardiac ar rhythmia: Brother(V17.49, Z82.49) Status:Active Family history of chronic ob structive pulmonary disease: Brother(V17.6, Z82.5) Status:Active S/P CABG (coronary artery by pass graft): Brother(V45.81, Z95.1) Comments:x3; Status:Active Family history of malignant neoplasm: Mother, Brother(V16.9, Z80.9) Status:Active Family history of cerebral a neurysm: Father(V17.1, Z82.49) Status:Active Family history of cerebrovas cular accident (CVA): Sister(V17.1, Z82.3) Status:Active Unknown Family Member Name Dates Details Family history of cardiac ar rhythmia: Brother(V17.49, Z82.49) Status:Active Family history of chronic ob structive pulmonary disease: Brother(V17.6, Z82.5) Status:Active S/P CABG (coronary artery by pass graft): Brother(V45.81, Z95.1) Comments:x3; Status:Active Family history of malignant neoplasm: Mother, Brother(V16.9, Z80.9) Status:Active Family history of cerebral a neurysm: Father(V17.1, Z82.49) Status:Active Family history of cerebrovas cular accident (CVA): Sister(V17.1, Z82.3) Status:Active Unknown Family Member Name Dates Details Family history of cardiac ar rhythmia: Brother(V17.49, Z82.49) Status:Active Family history of chronic ob structive pulmonary disease: Brother(V17.6, Z82.5) Status:Active S/P CABG (coronary artery by pass graft): Brother(V45.81, Z95.1) Comments:x3; Status:Active Family history of malignant neoplasm: Mother, Brother(V16.9, Z80.9) Status:Active Family history of cerebral a neurysm: Father(V17.1, Z82.49) Status:Active Family history of cerebrovas cular accident (CVA): Sister(V17.1, Z82.3) Status:Active Unknown Family Member Name Dates Details Family history of cardiac ar rhythmia: Brother(V17.49, Z82.49) Status:Active Family history of chronic ob structive pulmonary disease: Brother(V17.6, Z82.5) Status:Active S/P CABG (coronary artery by pass graft): Brother(V45.81, Z95.1) Comments:x3; Status:Active Family history of malignant neoplasm: Mother, Brother(V16.9, Z80.9) Status:Active Family history of cerebral a neurysm: Father(V17.1, Z82.49) Status:Active Family history of cerebrovas cular accident (CVA): Sister(V17.1, Z82.3) Status:Active Unknown Family Member Name Dates Details Family history of cardiac ar rhythmia: Brother(V17.49, Z82.49) Status:Active Family history of chronic ob structive pulmonary disease: Brother(V17.6, Z82.5) Status:Active S/P CABG (coronary artery by pass graft): Brother(V45.81, Z95.1) Comments:x3; Status:Active Family history of malignant neoplasm: Mother, Brother(V16.9, Z80.9) Status:Active Family history of cerebral a neurysm: Father(V17.1, Z82.49) Status:Active Family history of cerebrovas cular accident (CVA): Sister(V17.1, Z82.3) Status:Active Family history of malignant neoplasm of colon: Brother(V16.0, Z80.0) Status:Active Family history of malignant melanoma: Brother(V16.8, Z80.8) Status:Active Unknown Family Member Name Dates Details Family history of cardiac ar rhythmia: Brother(V17.49, Z82.49) Status:Active Family history of chronic ob structive pulmonary disease: Brother(V17.6, Z82.5) Status:Active S/P CABG (coronary artery by pass graft): Brother(V45.81, Z95.1) Comments:x3; Status:Active Family history of malignant neoplasm: Mother, Brother(V16.9, Z80.9) Status:Active Family history of cerebral a neurysm: Father(V17.1, Z82.49) Status:Active Family history of cerebrovas cular accident (CVA): Sister(V17.1, Z82.3) Status:Active Family history of malignant neoplasm of colon: Brother(V16.0, Z80.0) Status:Active Family history of malignant melanoma: Brother(V16.8, Z80.8) Status:Active Unknown Family Member Name Dates Details Family history of cardiac ar rhythmia: Brother(V17.49, Z82.49) Status:Active Family history of chronic ob structive pulmonary disease: Brother(V17.6, Z82.5) Status:Active S/P CABG (coronary artery by pass graft): Brother(V45.81, Z95.1) Comments:x3; Status:Active Family history of malignant neoplasm: Mother, Brother(V16.9, Z80.9) Status:Active Family history of cerebral a neurysm: Father(V17.1, Z82.49) Status:Active Family history of cerebrovas cular accident (CVA): Sister(V17.1, Z82.3) Status:Active Family history of malignant neoplasm of colon: Brother(V16.0, Z80.0) Status:Active Family history of malignant melanoma: Brother(V16.8, Z80.8) Status:Active Advance Directives No Advanced Directives Records Found Advance Directive Response Recorded Date/ Time Advance Directives Yes July 06 4:29pm Advance Directive Response Recorded Date/ Time Advance Directives Yes July 06 3:29pm Chief Complaint KERMIT ROSEN is being seen for a 9 month follow-up of.* KERMIT ROSEN is being seen for a 9 month follow-up of. * Patient is in the office for follow-up for mild coronary disease confirmed by cardiac catheterization 2018 with 40% LAD lesion. She has hyperlipidemia and hypertension medical therapy. Since her lastvisit she stopped taking Lipitor since she read on the Internet that statins general bad for people. I have spent enough time educating the patient's about how long she is in that regard. Again she agreed to go back on atorvastatin. I did explain to the patient details the potential side effect versus the benefits of statin. Her blood pressures under control medical therapy. She reports no palpitations chest pain shortness of breath orthopnea PND. * Assessment/recommendations * 1 mild coronary atherosclerosis with 40% mid anterior descending artery lesion, the patient agreed to go back on Lipitor 10 mg daily plus aspirin after detailed discussions about the merit of statin therapy in the presence of CAD. * 2 hypertension under control., Present medical therapy will be left unchanged, medications were refilled * 3 hypothyroidism on replacement therapy. * 4 hyperlipidemia, patient will go back on Lipitor 10 mg daily and will follow lipid profile periodically * 6 patient had COVID-19 infection last year with no complications * 7 mild and insignificant mitral regurgitation by echocardiogram 2018 * Patient come back to see me in 9 months * KERMIT ROSEN is being seen for an annual follow-up of. * Patient is in the office for follow-up for the problems noted below. Recent lab data from yesterdaywere reviewed LDL is up to 35 mg/dL. Other labs were okay. Her pressure is quite elevated in the office today at 170 mmHg in both arms. She has taken valsartan this morning. She told me that she was other doctors office last week and her blood pressure was normal. The patient apparently he is not following low-salt diet. Apart from hypertension physical examination was normal. * Assessment/recommendations * 1 mild coronary atherosclerosis with 40% mid anterior descending artery lesion, patient is asymptomatic and remains on aspirin, the patient was convinced today to go on statin therapy based on her recent lab data and she is agreeable to go on rosuvastatin 10 mg daily. * 2 hypertension not under control., The patient will come back in few weeks and bring her blood pressure cuff from home to see how the readings are compared to her home readings which are reportedly normal. * 3 hypothyroidism on replacement therapy. * 4 hyperlipidemia, LDL recently 135 mg/dL. I convinced the patient to go on statin therapy given thefact that she has CAD in the LAD distribution. 10 mg of rosuvastatin was started. * 5 mild and insignificant mitral regurgitation by echocardiogram 2018 * KERMIT ROSEN is being seen for an annual follow-up of. * Patient is in the office for follow-up for the problems noted below. Recent lab data from yesterdaywere reviewed LDL is up to 35 mg/dL. Other labs were okay. Her pressure is quite elevated in the office today at 170 mmHg in both arms. She has taken valsartan this morning. She told me that she was other doctors office last week and her blood pressure was normal. The patient apparently he is not following low-salt diet. Apart from hypertension physical examination was normal. * Assessment/recommendations * 1 mild coronary atherosclerosis with 40% mid anterior descending artery lesion, patient is asymptomatic and remains on aspirin, the patient was convinced today to go on statin therapy based on her recent lab data and she is agreeable to go on rosuvastatin 10 mg daily. * 2 hypertension not under control., The patient will come back in few weeks and bring her blood pressure cuff from home to see how the readings are compared to her home readings which are reportedly normal. * 3 hypothyroidism on replacement therapy. * 4 hyperlipidemia, LDL recently 135 mg/dL. I convinced the patient to go on statin therapy given thefact that she has CAD in the LAD distribution. 10 mg of rosuvastatin was started. * 5 mild and insignificant mitral regurgitation by echocardiogram 2018 Chief Complaint and Reason for Visit Chief Complaint e78.5 i10 i25.10 i34 .0 Chief Complaint Z85.3 Additional Source Comments INFORMATION SOURCE (unrecogn ized section and content) DATE CREATED AUTHOR 05/26/2018 [facility] DATE CREATED AUTHOR AUTHOR'S ORGANIZ ATION 11/11/2019 [facility] DATE CREATED AUTHOR AUTHOR'S ORGANIZ ATION 2022 [facility] DATE CREATED AUTHOR AUTHOR'S ORGANIZ ATION 04/11/2023 [facility] DATE CREATED AUTHOR AUTHOR'S ORGANIZ ATION 07/16/2023 [facility] DATE CREATED AUTHOR AUTHOR'S ORGANIZ ATION 07/16/2023 [facility] DATE CREATED AUTHOR AUTHOR'S ORGANIZ ATION 11/12/2023 [facility] DATE CREATED AUTHOR AUTHOR'S ORGANIZ ATION 05/15/2024 [facility] DATE CREATED AUTHOR AUTHOR'S ORGANIZ ATION 05/16/2024 [facility] DATE CREATED AUTHOR AUTHOR'S ORGANIZ ATION 05/21/2024 [facility] DATE CREATED AUTHOR AUTHOR'S ORGANIZ ATION 05/27/2024 [facility] DATE CREATED AUTHOR AUTHOR'S ORGANIZ ATION 08/23/2024 [facility] DATE CREATED AUTHOR AUTHOR'S ORGANIZ ATION 08/27/2024 [facility] Care Team (unrecognized sect ion and content) Database Programmer Analyst Relationship Specialty Start Date End Date Cristin Roblero, DONATO [address] [place] [address] PCP - General Family Medicine 11/20/20 Team Status: Active Member Role Status Dates Camryn De La Rosa TERRAZZO POLISHER-C Primary Care Provider Act franc Team Status: Inactive Member Role Status Dates Camryn De La Rosa NP-C Primary Care Provider Act franc Jay Jay Mariscal MD Attending Provider Active Team Status: Inactive Member Role Status Dates Ryley Marinelli Attending Provider Active Camryn De La Rosa TERRAZZO POLISHER-C Primary Care Provider Act franc Source Comments (unrecognize d section and content) In the event this informatio n is protected by the Federal Confidentiality of Alcohol and Drug Abuse Patient Records regulations: The Federal rules restrict any use of the information to criminally investigate or prosecute any alcohol or drug abuse patient.[facility] Goals (unrecognized section and content) Goals may be documented in a n alternate section FOR RECORDS PERTAINING TO PATIENTS WHO ARE OR HAVE BEEN ENROLLED IN A CHEMICAL DEPENDENCY/SUBSTANCEABUSE PROGRAM, SOME INFORMATION MAY BE OMITTED. This clinical summary was aggregated from multiple sources. Caution should be exercised in using it in the provision of clinical care. This summary normalizes information from multiple sources, and as a consequence, information in this document may materially change the coding, format and clinical context of patient data. In addition, data may be omitted in some cases. CLINICAL DECISIONS SHOULD BE BASED ON THE PRIMARY CLINICAL RECORDS. [facility]. provides no warranty or guarantee of the accuracy or completeness of information in this document.
[2024-09-10 11:51] LABS: Anion Gap 12.7; BUN Creatinine Ratio 26.4; Calcium 9.2 mg/dL (8.5-10.1); Chloride 103 mmol/L (98-107); Estimated GFR (African America >60 (>=60 mL/min/1.73m^2); Estimated GFR (Non-African Ame >60 (>=60 mL/min/1.73m^2); Glucose 141 mg/dL (74-106); Potassium 3.7 mmol/L (3.5-5.1); Sodium 137 mmol/L (136-145)
[2024-09-10 12:07] LABS: Basophils Percent Auto 0.4 % (0.2-2.0); Eosinophils Absolute Auto 0.1 10^3/uL (0.0-0.7); Eosinophils Percent Auto 1.4 % (0.9-7.0); Hematocrit 42.1 % (36.0-48.0); Hemoglobin 13.8 g/dL (12.0-16.0); Immature Granulocytes Abs Auto 0.01 10^3/uL (0.00-0.03); Immature Granulocytes Pct Auto 0.2 % (0.0-0.5); Lymphocytes Absolute Auto 1.7 10^3/uL (1.2-3.8); Mean Corpuscular HGB Conc 32.8 g/dL (29.9-35.2); Mean Corpuscular Hemoglobin 29.9 pg (26.7-34.0); Mean Corpuscular Volume 91.1 fL (81.0-99.0); Mean Platelet Volume 11.3 fL (9.5-13.5); Monocytes Absolute Auto 0.3 10^3/uL (0.3-0.8); Monocytes Percent Auto 5.8 % (1.7-12.0); Neutrophils Absolute Auto 3.1 10^3/uL (1.4-6.5); Neutrophils Percent Auto 60.2 % (43.0-75.0); Platelet Count 227 10^3/uL (150-450); Red Blood Count 4.62 10^6/uL (4.20-5.40); Red Cell Distribution Width 12.6 % (11.0-15.0); White Blood Count 5.2 10^3/uL (4.0-11.0)
[2024-09-10 12:12] LABS: INR 1.02; Prothrombin Time 10.8 sec (9.0-11.6)
[2024-09-10 12:13] LABS: Partial Thromboplastin Time 30.7 sec (22.3-36.2)
== END 2024-09-10 10:49 | disposition home or self-care (01) ==
LOC: PST 10:49
PROVIDERS: Visit Provider Obstetrics & Gynecology
DX: Z01.810 Encounter for preprocedural cardiovascular examination (principal); Z01.812 Encounter for preprocedural laboratory examination
CPT/HCPCS: 71046; 80048; 85025; 85610; 85730; 93005

== ENCOUNTER 2024-10-29 12:27 | Outpatient (OUT) | payer OTHER, SELFPAY ==
--- OUTSIDE RECORDS SUMMARY | 2024-10-29 12:31 | XMS_ITS | CCD ---
Author Organization [facility] Team Providers Care Comfort Filler Name Role Phone CRIS VALENZUELA Unavailable Unavailable VALENZUELA, CRIS Unavailable Unavailable CRIS VALENZUELA Unavailable Unavailable TerriLidia deana Shaw Unavailable Unavailable Unavailable Malinda Rubio Primary Care Physician TYRELL ., DR DELGADO Consulting Unavailabl e KARASIK ., DR DELGADO Attending Unavailabl e KARASIK ., DR DELGADO Admitting Unavailabl e KARASIK ., DR DELGADO Attending Unavailabl e KARASIK ., DR DELGADO Admitting Unavailabl e PEREZ, DR DANNY Murphy Primary Care Unavailable KARASIK ., DR DELGADO Consulting Unavailabl e KARASIK ., DR DELGADO Attending Unavailabl e KARASIK ., DR DANNY Ericksonitting Unavailabl e PEERZ, DR DANNY Murphy Primary Care Unavailable MANUELEBANTONIETTA, DR IDALIA Smith Consulting Unavailable PEREZ, DR DANNY Murphy Consulting Unavailable KARASIK ., DR DELGADO Attending Unavailabl e KARASIK ., DR DANNY Lopez Unavailabl e PEREZ, DR DANNY Murphy Primary Care Unavailable KARASIK ., DR DELGADO Consulting Unavailabl e PAOLA, DR IDALIA Smith Consulting Unavailable Beljermaine SEWELL Cristin Shaw Primary Care Provider [phone] ANIKA De La Rosa Primary Care Provide r MD Jay Jay Mariscal Attending Provider [phone] Camryn De La Rosa Unavailable Ms. Camryn De La Rosa Primary Care Unava ilford Mariscal, Dr. Jay Jay Lewis Attending Kimberley vailable Davey, Dr. Jay Jay Lewis Referring Kimberley vailable Camryn De La Rosa Primary Care Physician [phone] Vilma Mcallister Primary Care Physician [phone] Ryley Marinelli Attending Provider ANIKA De La Rosa Primary Care Provide r Vilma Mcallister Attending Unavailable Esvin, Vilma L Admitting Unavailable Esvin, Vilma L Attending Unavailable Esvin, Vilma L Admitting Unavailable Esvin, Vilma L Admitting Unavailable Esvin, Vilma L Attending Unavailable Esvin, Vilma L Attending Unavailable Esvin, Vilma L Admitting Unavailable Esvin, Vilma L Attending Unavailable Esvin, Vilma L Admitting Unavailable Esvin, Vilma L Attending Unavailable TRACI De La Rosa Admitting Kimberley vailable TRACI De La Rosa Attending Kimberley vailable Esvin, Vilma L Attending Unavailable Esvin, Vilma [...] V. Attending UnavailTRACI Denny Attending Unav ailable Bhavna Mcallisterzabeth L Attending Unavailable TRACI De L aRosa Attending Kimberley vailable TRACI De La Rosa Attending Kimberley vailable Esvin, Vilma L Attending Unavailable Esvin, Vilma L Attending Unavailable Esvin, Vilma L Attending Unavailable Esvin, Vilma L Attending Unavailable Esvin, Vilma L Attending Unavailable NORMA VARGAS Attending Unavailable RYLEY MARINELLI Attending Unavailable ELEONORA FREY Attending Unavailable LAWRENCE ROQUE Attending Unavailable RYLEY MARINELLI Attending Unavailable NORMA VARGAS Attending Unavailable Vilma Mcallister NP Unavailable Camryn De La Rosa Primary Care Unavailab Ryley Kennedy Attending Unavailable Ryley Marinelli Admitting Unavailable Unavailable Primary Care Provider UnavailJAY JAY Taylor Attending Unavailable CAMRYN DE LA ROSA Primary Care Unavailable Vilma Mcallister Attending Unavailable Vilma Mcallister Attending Unavailable Vilma Mcallister Referring Unavailable Singh Sellers Attending Unavailable Vilma Mcallister Attending Unavailable Vilma Mcallister Attending Unavailable Vilma Mcallister Attending Unavailable Allergies Allergy Classification Reported Allergen(s) Allergy Type Date of Onset Reaction(s) Facility Angiotensin Converting Enzyme (CARMELINA) Inhibitors (2 sources) Lisinopril; Translations: [lisinopril] Drug Allergy Unknown (qualifier value) [facility] Doxycycline (2 sources) Doxycycline; Translations: [doxycycline] Drug Allergy Mycosis (disorder) [facility] hydroCHLOROthiazide (2 sources) hydroCHLOROthiazide; Translations: [hydrochlorothiazide] Drug Allergy Disorder of electrolytes (disorder) [facility] Hydroflumethiazide (1 source) Hydroflumethiazide; Translations: [hydroflumethiazide] Drug Allergy [facility] NSAIDs (4 sources) Diclofenac; Translations: [diclofenac] Drug Allergy Hypertensive disorder, systemic arterial (disorder) [facility] [place] Propranolol (2 sources) Propranolol; Translations: [propranolol] Drug Allergy hives [facility] Serotonin Reuptake Inhibitors (SSRIs) (4 sources) Citalopram; Translations: [citalopram] Drug Allergy Unknown (qualifier value) [facility] Unclassified (2 sources) No Known Medication Allergies; Translations: [No Known Medication Allergies] Propensity to adverse reactions (disorder) [facility] (9 sources) atorvastatin; Translations: [atorvastatin] Drug Allergy 023 Unknown [facility] (20 sources) Citalopram; Translations: [CeleXA TABS] Drug Allergy 019 Unknown (qualifier value), Unknown [facility] roger 250 DO Work Phone: (20 sources) Diclofenac; Translations: [diclofenac] Drug Allergy 023 Hypertensive disorder, systemic arterial (disorder), Unknown [facility] [employer]BA[employer] 250 DO Work Phone: (20 sources) Doxycycline; Translations: [doxycycline] Drug Allergy 021 Mycosis (disorder), Unknown [facility] ROBAUTO 250 DO Work Phone: (20 sources) hydroCHLOROthiazide; Translations: [hydrochlorothiazide] Drug Allergy 019 Disorder of electrolytes (disorder), Unknown [facility] [employer] DO Work Phone: (20 sources) Lisinopril; Translations: [lisinopril] Drug Allergy 019 Unknown (qualifier value), Intolerance, Cough [facility] [employer] DO Work Phone: (20 sources) Propranolol; Translations: [propranolol] Drug [facility] [address] [facility] [employer] DO Work Phone: (3 sources) Diclofenac; Translations: [diclofenac sodium] Drug Allergy Intolerance [facility] (1 source) Thiazides Propensity to adverse reactions to drug Unknown [facility] (4 sources) Citalopram; Translations: [citalopram] Drug Allergy 019 Muscle Pain [facility] (1 source) atorvastatin Drug Allergy 023 [facility] Work Phone: (1 source) benzonatate Drug Allergy 024 [facility] (1 source) benzyl benzoate Drug Allergy 023 [facility] (1 source) hydroCHLOROthiazide Drug Allergy [facility] (1 source) Lisinopril Propensity to adverse reactions Cough [facility] (1 source) Octacosanol Drug Allergy 024 [facility] (1 source) Other Propensity to adverse reactions 021 [facility] (1 source) hydroCHLOROthiazide Drug Allergy [facility] (1 source) Lisinopril Drug Allergy [facility] (1 source) Propranolol Drug Allergy 019 [facility] (1 source) Citalopram; Translations: [Citalopram Hydrobromide] Drug Allergy [facility] (1 source) Citalopram; Translations: [CeleXA] Drug Allergy [facility] (1 source) Diclofenac; Translations: [Voltaren Topical] Drug Allergy [facility] (1 source) Hydroflumethiazide; Translations: [hydroflumethiazide] Drug Allergy [facility] Medications Current Medications Medication Drug Class(es) Dates Sig (Normalized) Sig (Original) [id number] 200 actuat albuterol 0.09 mg/actuat metered dose inhaler (1 source) beta2-Adrenergic Agonist albuterol HFA 90 mcg/act inhaler Active Albuterol (Eqv-Ventolin HFA) 90 mcg/inh inhalation aerosol (2 sources) Start: 09-04-2023 take 2 puff(s) by inhalation every six hours Albuterol (Eqv-Ventolin HFA) 90 mcg/inh inhalation aerosol 2 puff(s), Inhalation, q6hr, 18 gm, Refill(s) 0, [facility], 154, cm, 09/04/23 9:44:00 EDT, Height/Length Dosing, 56.1, kg, 09/04/23 9:44:00 EDT, Weight Dosing Start Date: 09/04/23 Status: Ordered ALPRAZolam 0.25 mg oral tablet (20 sources) Benzodiazepine Start: 11-09-2020 End: 10-11-2024 take 1 tablet by mouth once daily as needed alprazolam 0.25 mg Tab 0.25 mg = 1 tab(s), Oral, Daily, PRN for insomnia, # 12 tab(s), Refills(s) 0, Pharmacy: [facility], 154, cm, 09/26/23 9:41:00 EDT, Height/Length Dosing, 57.6, kg, 09/26/23 9:41:00 EDT, Weight Dosing Start Date: 09/26/23 Status: Ordered Start: 07-29-2019 End: 07-29-2019 take 0.5 mg [...] blood pressure Start Date: 11/15/19 Status: Ordered amoxicillin 875 mg / clavulanate 125 mg oral tablet (1 source) Penicillin-class Antibacterial Start: 4 End: take 1 tablet by mouth every twelve hours Augmentin 875 mg-125 mg Tab 1 tab(s), Oral, q12hr for 10 day(s), 20 tab(s), Refill(s) 0, [facility], 154, cm, 10/15/24 10:15:00 EST, Height/Length Dosing, 55.6, kg, 10/15/24 10:15:00 EST, Weight Dosing Start Date: 10/15/24 Stop Date: 10/25/24 Status: Ordered aspirin 81 mg oral tablet (20 sources) Platelet Aggregation Inhibitor, Nonsteroidal Anti-inflammatory Drug Start: 9 take 1 tablet by mouth once daily aspirin 81 mg oral tablet = 1 tab(s), Oral, Daily, Refills(s) 0 Start Date: 01/26/21 Status: Ordered take 1 tablet by mouth three lexa es weekly aspirin 81 mg EC tablet Take 1 tablet (81 mg) by mouth 3 times a week. Active aspirin 81 MG EC tablet 1 (one) time each day at the same time. Active Comment on above: Take 81 mg by mouth once daily. azithromycin 250 mg oral tablet (2 sources) Macrolide Antimicrobial Start: 10-15-2024 End: 10-20-2024 Zithromax Z-Dionicio 250 mg oral tablet = 1 packet(s), Oral, As Directed, as directed on package labeling, X 5 day(s), # 6 tab(s), Refills(s) 0, Pharmacy: [facility], 154, cm, 10/15/24 10:15:00 EST, Height/Length Dosing, 55.6, kg, 10/15/24 10:15:00 EST, Weight Dosing Start Date: 10/15/24 Stop Date: 10/20/24 Status: Ordered Start: 09-24-2022 End: 09-29-2022 Zithromax 250 mg Tab = 1 pac ket(s), Oral, As Directed, as directed on package labeling, X 5 day(s), # 6 tab(s), Refills(s) 0, Pharmacy: [facility], 154, cm, 09/24/22 12:01:00 EDT, Height/Length Dosing, 56.5, kg, 09/24/22 12:01:00 EDT, Weight Dosing Start Date: 09/24/22 Stop Date: 09/29/22 Status: Ordered benzonatate 100 mg oral capsule (2 sources) Non-narcotic Antitussive Start: 10-15-2024 End: 10-25-2024 take 1 capsule by mouth three times daily benzonatate 100 mg Cap 100 mg = 1 cap(s), Oral, TID, X 10 day(s), # 30 cap(s), Refills(s) 0, Pharmacy: [facility], 154, cm, 10/15/24 10:15:00 EST, Height/Length Dosing, 55.6, kg, 10/15/24 10:15:00 EST, Weight Dosing Start Date: 10/15/24 Stop Date: 10/25/24 Status: Ordered Start: 12-17-2022 End: 12-24-2022 take 1 capsule by mouth three times daily Tessalon 100 mg Cap 100 mg = 1 cap(s), Oral, TID, X 7 day(s), # 21 cap(s), Refills(s) 0, Pharmacy: [facility], 154, cm, 12/17/22 11:54:00 EST, Height/Length Dosing, 57, kg, 12/17/22 11:54:00 EST, Weight Dosing Start Date: 12/17/22 Stop Date: 12/24/22 Status: Ordered brompheniramine maleate 0.4 mg/ml / dextromethorphan hydrobromide 2 mg/ml / pseudoephedrine hydrochloride 6 mg/ml oral solution (20 sources) alpha-Adrenergic Agonist, Uncompetitive J-vgqdog-Q-aspartate Receptor Antagonist, Sigma-1 Agonist Start: 09-26-2023 take 5 mL by mouth four times daily for cough and congestion Bromfed DM oral syrup 5 mL, Oral, QID for cough and congestion, 200 mL, Refill(s) 0, [facility], 154, cm, 04/14/24 9:52:00 EDT, Height/Length Dosing, 56, kg, 04/14/24 9:52:00 EDT, Weight Dosing Start Date: 04/14/24 Status: Ordered Elderberry Gummies with Vitamin C and Zinc (7 sources) Start: 05-12-2024 Elderberry Gummies with Vitamin C and Zinc 1 tablet, Chewed, Daily, Refill(s) 0 Start Date: 05/12/24 Status: Ordered Elderberry preparation (8 sources) Start: 10-30-2023 Elderberry 500 MG capsule Refill(s) 0 10/30/2023 Active Start: 10-30-2023 elderberry Ref ill(s) 0 Start Date: 10/30/23 Status: Ordered estradiol 0.1 mg/ml vaginal cream (2 sources) Estrogen Start: 12-12-2020 Estrace 0.1 mg /g Cream See Instructions, 42.5 gm, Refill(s) 0, 0.5 to 1 gm Vaginal 1-2 x per week at bed time., [facility], 155, cm, 12/12/20 12:23:00 EST, Height/Length Dosing, 58.6, kg, 12/12/20 12:23:00 EST, Weight Dosing Start Date: 12/12/20 Status: Ordered Fish Oils (2 sources) Start: 04-27-2019 take 1 capsule by mouth twice daily Fish Oil 1000 mg oral capsule 1,000 mg = 1 cap(s), Oral, BID, Refills(s) 0, Prophylaxis Start Date: 04/27/19 Status: Ordered fluconazole 150 mg oral tablet (3 sources) Azole Antifungal Start: 10-15-2024 take 1 tablet by mouth once Diflucan 150 mg Tab 150 mg = 1 tab(s), Oral, Once, # 1 tab(s), Refills(s) 1, Pharmacy: [facility], 154, cm, 10/15/24 10:15:00 EST, Height/Length Dosing, 55.6, kg, 10/15/24 10:15:00 EST, Weight Dosing Start Date: 10/15/24 Status: Ordered Start: 09-04-2023 Diflucan 100 m g Tab 100 mg = 1 tab(s), Oral, Daily, take once if needed and may repeat if needed, # 2 tab(s), Refills(s) 0, Pharmacy: [facility], 154, cm, 09/04/23 9:44:00 EDT, Height/Length Dosing, 56.1, kg, 09/04/23 9:44:00 EDT, Weight Dosing Start Date: 09/04/23 Status: Ordered Garlic preparation (20 sources) Non-Standardized Food Allergenic Extract Start: 09-12-2022 Garlic See Instructions, 1 tab daily OTC Start Date: 09/12/22 Status: Ordered H-HTP 100 mg (3 sources) Start: 07-09-2024 H-HTP 100 mg H-HTP 100 mg, See Instructions, 5-HTP 100mg (Neurotransmitter Support). For Depression Start Date: 07/09/24 Status: Ordered hydrOXYzine hydrochloride 50 mg oral tablet (1 source) Antihistamine Start: 08-19-2023 take 1 tablet by mouth four times daily as needed for anxiety, then take 0.5 tablet by mouth every hour as needed for anxiety hydrOXYzine hydrochloride 50 mg oral tablet 50 mg = 1 tab(s), Oral, QID, PRN for anxiety, Can cut tab in half if needed Take 1 hr prior to bed, # 40 tab(s), Refills(s) 1, Pharmacy: [facility], 154, cm, 08/19/23 11:14:00 EDT, Height/Length Dosing, 58, kg, 08/19/23 11:14:00 EDT, Weigh... Start Date: 08/19/23 Status: Ordered ibuprofen 800 mg oral tablet (10 sources) Nonsteroidal Anti-inflammatory Drug Start: 07-09-2019 take 1 tablet by mouth three times daily as needed for pain ibuprofen 800 mg Tab 800 mg = 1 tab(s), Oral, TID, PRN for pain, # 90 tab(s), Refills(s) 0, Pharmacy: [facility] 1985 Start Date: 07/09/19 Status: Ordered Iodine (16 sources) Start: 10-30-2023 iodine Refills(s) 0 Start Date: 10/30/23 Status: Ordered Ivermectin (11 sources) Antiparasitic, Pediculicide Start: 04-14-2024 take 12 mg by mouth once ivermectin 12 mg, Oral, Once, Refills(s) 0 Start Date: 04/14/24 Status: Ordered Start: 03-01-2021 take 3 tablets by mouth once i vermectin 3 mg oral tablet 9 mg = 3 tab(s), Oral, Once, # 3 tab(s), Refills(s) 0, Pharmacy: [facility], 154.9, cm, 02/19/21 14:27:00 EDT, Height/Length Dosing, 57, kg, 02/19/21 14:27:00 EDT, Weight Dosing Start Date: 03/01/21 Status: Ordered ketoconazole 10 mg/ml medicated shampoo (8 sources) Azole Antifungal Start: 09-12-2022 ketoconazole topical 1% shampoo 1 christiano, Topical, q3day, 210 mL, Refill(s) 1, [facility], 154, cm, 09/12/22 10:34:00 EDT, Height/Length Dosing, 56.4, kg, 09/12/22 10:34:00 EDT, Weight Dosing Start Date: 09/12/22 Status: Ordered levoFLOXacin 750 mg oral tablet (2 sources) Quinolone Antimicrobial Start: 05-06-2024 End: 05-13-2024 take 1 tablet by mouth once daily Levaquin 750 mg Tab 750 mg = 1 tab(s), Oral, Daily, X 7 day(s), # 7 tab(s), Refills(s) 0, Pharmacy: [facility] 1985, 154, cm, 05/06/24 15:09:00 EDT, Height/Length [...] BID, # 60 tab(s), Refills(s) 5, Pharmacy: [facility] Start Date: 10/06/19 Status: Ordered Start: 07-29-2019 take 50 mg by mouth once daily Losartan Active 50 MG PO Daily July 28, 2019 11:00pm Comment on above: Take 50 mg by mouth once daily. magnesium amino acid chelate (18 sources) Start: magnesium amino acids chelate Refills(s) 0 Start Date: 09/04/23 Status: Ordered meclizine hydrochloride 12.5 mg oral tablet (2 sources) Antiemetic Start: take 1 tablet by mouth three times daily as needed for dizziness Antivert 12.5 mg Tab 12.5 mg = 1 tab(s), Oral, TID, PRN for dizziness, # 30 tab(s), Refills(s) 0, Pharmacy: [facility], 155, cm, 12/12/20 12:23:00 EST, Height/Length Dosing, 58.6, kg, 12/12/20 12:23:00 EST, Weight Dosing Start Date: 12/12/20 Status: Ordered methylPREDNISolone 4 mg oral tablet (2 sources) Corticosteroid Start: End: Medrol 4 mg Tab = 1 packet(s), Oral, As Directed, as directed on package labeling, X 6 day(s), # 21 tab(s), Refills(s) 0, Pharmacy: [facility], 154, cm, 04/14/24 9:52:00 EDT, Height/Length Dosing, 56, kg, 04/14/24 9:52:00 EDT, Weight Dosing Start Date: 04/14/24 Stop Date: 04/20/24 Status: Ordered Start: 09-17-2022 End: 09-23-2022 Medrol 4 mg Tab = 1 packet(s ), Oral, As Directed, as directed on package labeling, X 6 day(s), # 21 tab(s), Refills(s) 0, Pharmacy: [facility] 1985, 154, cm, 09/12/22 10:34:00 EDT, Height/Length [...] blood pressure Start Date: 10/06/19 Status: Ordered take 1 tablet by albert th every twenty-four hours in the morning metoprolol succinate XL (Toprol-XL) 50 M G 24 hr tablet Take 50 mg by mouth in the morning. Active Comment on above: Take 50 mg by mouth once daily. mupirocin 0.02 mg/mg topical ointment (13 sources) RNA Synthetase Inhibitor Antibacterial Start: 07-09-2024 mupirocin Top 2% Oint 1 christiano, Topical, BID Diabetic, 30 gram, Refill(s) 0, [facility], 154, cm, 07/09/24 9:47:00 EDT, Height/Length Dosing, 54.2, kg, 07/09/24 9:47:00 EDT, Weight Dosing Start Date: 07/09/24 Status: Ordered Start: 10-30-2023 mupirocin Top 2% Oint 1 christiano, Topical, TID, 30 gram, Refill(s) 1, [facility] 1985, 154, cm, 10/30/23 9:48:00 EST, Height/Length Dosing, 57.8, kg, 10/30/23 9:48:00 EST, Weight Dosing Start Date: 10/30/23 Status: Ordered Start: 03-22-2021 mupirocin Top 2% Oint 1 christiano, Topical, TID nasal sore., 15 gm, Refill(s) 0, [facility] 1985, 154.9, cm, 03/22/21 9:27:00 EDT, Height/Length Dosing, 57.7, kg, 03/22/21 9:27:00 EDT, Weight Dosing Start Date: 03/22/21 Status: Ordered NAC Detox Regulators (15 sources) Start: 01-15-2024 take 500 ug by mouth once daily NAC Detox Regulators NAC Detox Regulators, Oral, Daily, Selenium 500 mcg, Molybdenum 50 mcg, and N-Acetylcysteine 600 mg Start Date: 01/15/24 Status: Ordered nitroglycerin 0.4 mg sublingual tablet (8 sources) Nitrate Vasodilator Start: 07-29-2019 Nitroglycerin Active 0.4 MG SUBLINGUAL Q5M July 28, 2019 11:00pm until response; do not exceed 3 doses per episode omeprazole 40 mg delayed release oral capsule (2 sources) Proton Pump Inhibitor Start: 02-28-2020 take 1 capsule by mouth once daily omeprazole 40 mg Cap-DR 40 mg = 1 cap(s), Oral, Daily, # 30 cap(s), Refills(s) 2, Pharmacy: [facility], 155.2, cm, 02/07/20 13:54:00 EDT, Height/Length Measured, 60.7, kg, 02/07/20 13:54:00 EDT, Weight Measured Start Date: 02/28/20 Status: Ordered Oxytocin-Sodium Chloride 15-0.9 UT/250ML-% solution (1 source) Oxytocin-Sodium Chloride 15-0.9 UT/250ML-% solution Infuse into a venous catheter. Active predniSONE 10 mg oral tablet (2 sources) Start: 10-15-2024 predniSONE 10 mg Tab See Instructions, - Oral As Directed 4 tabs x 2 days, 3 tabs 2 days, 2 tabs x 2 days then 1 tab x 2 days with food, # 16 tab(s), Refills(s) 0, Pharmacy: [facility], 154, cm, 10/15/24 10:15:00 EST, Height/Length Dosing, 55.6, kg, 10/15/24 10:15:00 EST, Weight Dosing Start Date: 10/15/24 Status: Ordered Start: 12-17-2022 End: 12-22-2022 take 2 tablets by mouth twice daily predniSONE 20 mg Tab 40 mg = 2 tab(s), Oral, BID, X 5 day(s), # 20 tab(s), Refills(s) 0, Pharmacy: [facility], 154, cm, 12/17/22 11:54:00 EST, Height/Length Dosing, 57, kg, 12/17/22 11:54:00 EST, Weight Dosing Start Date: 12/17/22 Stop Date: 12/22/22 Status: Ordered progesterone 100 mg vaginal insert (1 source) Progesterone progesterone (Endometrin) 100 MG vaginal insert Insert 100 mg into the vagina in the morning and 100 mg before bedtime. Active Promethazine (6 sources) Phenothiazine Start: 09-17-20 take 5 mL by mouth every six hours for cough Promethazine DM oral syrup 5 mL, Oral, q6hr for cough, 120 mL, Refill(s) 0, [facility], 154, cm, 09/12/22 10:34:00 EDT, Height/Length Dosing, 56.4, kg, 09/12/22 10:34:00 EDT, Weight Dosing Start Date: 09/17/22 Status: Ordered raNITIdine 150 mg oral tablet (2 sources) Histamine-2 Receptor Antagonist Start: 07-29-20 take 150 mg by mouth twice daily Ranitidine Hcl Active 150 MG PO Twice daily July 28, 2019 11:00pm sertraline 50 mg oral tablet (20 sources) Serotonin Reuptake Inhibitor Start: 10-15-20 take 1 tablet by mouth once daily sertraline 50 mg Tab 50 mg = 1 tab(s), Oral, Daily, # 90 tab(s), Refills(s) 3 Start Date: 10/15/24 Status: Ordered Start: 10-10-2021 take 1 tablet by albert once daily sertraline (Zoloft) 50 MG tablet Take 50 mg by mouth Daily 06/09/2024 Active Start: 07-29-2019 take 100 mg by mouth once beto y Sertraline Active 100 MG PO Daily July 28, 2019 11:00pm sertraline (Zolo ft) 100 MG tablet Take 50 mg by mouth in the morning. Active Comment on above: Take 100 mg by mouth once daily. sodium chloride 0.111 meq/ml nasal spray (10 sources) Start: 01-25-2022 [place] Saline Mist 0.65% nasal spray 2 spray(s), Nasal, QID, 1 EA, Refill(s) 1, [facility], 154, cm, 01/25/22 11:10:00 EST, Height/Length Dosing, 57.2, kg, 01/25/22 11:10:00 EST, Weight Dosing Start Date: 01/25/22 Status: Ordered spacer (18 sources) Start: 09-04-2023 spacer spacer, See Instructions, 1 EA, 1, please dispense an adult mdi spacer chamber, [facility], Supply, 154, cm, 09/04/23 9:44:00 EDT, Height/Length Dosing, 56.1, kg, 09/04/23 9:44:00 EDT, Weight Dosing Start Date: 09/04/23 Status: Ordered thyroid ([facility]) 30 mg oral tablet (20 sources) Start: 11-09-2020 End: 10-10-2025 take 1 tablet by mouth once daily [place] Thyroid 30 mg Tab 30 mg = 1 tab(s), Oral, Daily, no Generic substitutions please -, X 90 day(s), # 90 tab(s), Refills(s) 3, Pharmacy: [facility], 154, cm, 10/15/24 10:15:00 EST, Height/Length Dosing, 55.6, kg, 10/15/24 10:15:00 EST, Weight Dosing Start Date: 10/15/24 Stop Date: 10/10/25 Status: Ordered Comment on above: Take 30 mg by mouth once daily. Turmeric Curcumin Oral Capsule (2 sources) Start: 04-27-2019 take 1 capsule by mouth once daily Turmeric Curcumin Oral Capsule Turmeric Curcumin Oral Capsule, 1 tab, Oral, Daily Start Date: 04/27/19 Status: Ordered Ventolin HFA 90 mcg/inh Aerosol-Adpt (20 sources) Start: 10-15-2024 take 2 puff(s) by inhalation four times daily for wheezing Ventolin HFA 90 mcg/inh Aerosol-Adpt 2 puff(s), Inhalation, QID for wheezing, 18 gram, Refill(s) 1, [facility], 154, cm, 10/15/24 10:15:00 EST, Height/Length Dosing, 55.6, kg, 10/15/24 10:15:00 EST, Weight Dosing Start Date: 10/15/24 Status: Ordered Start: 12-17-2022 take 2 puff(s) by in halation four times daily for wheezing Ventolin HFA 90 mcg/inh Aerosol-Adpt 2 puff(s), Inhalation, QID for wheezing, 18 gram, Refill(s) 0, [facility], 154, cm, 12/17/22 11:54:00 EST, Height/Length Dosing, 57, kg, 12/17/22 11:54:00 EST, Weight Dosing Start Date: 12/17/22 Status: Ordered Vitamin C 500 mg oral tablet, chewable (20 sources) Start: 04-27-2019 take 1 tablet by mouth once daily Vitamin C 500 mg oral tablet, chewable 500 mg = 1 tab(s), Chewed, Daily, Refills(s) 0, Prophylaxis Start Date: 04/27/19 Status: Ordered vitamin K2 (18 sources) Start: 09-04-2023 Vitamin K2 Ref ill(s) 0 Start Date: 09/04/23 Status: Ordered zinc [...] Ordered: 16-Jul-2022 DO Active Nitric Oxide Foundation (15 sources) Start: 01-15-20 Nitric Oxide Foundation Nitric Oxide Foundation, 2 tab(s), Oral, Daily, Vitamin C 290 mg, Thiamin 90mg, B12 200 mcg, Magnesium 75 mg, Potassium 189 mg, 500mg (postassium nitrate, beet root extract and fermented beet root powder). For Circulatory Support Start Date: 01/15/24 Status: Ordered rosuvastatin calcium 10 mg oral tablet (4 sources) HMG-CoA Reductase Inhibitor Start: 07-15-20 End: 10-11-20 take 1 tablet by mouth at bedtime Rosuvastatin Calcium 10 MG Oral Tablet TAKE 1 TABLET AT BEDTIME. Quantity: 90 Refills: 3 Ordered: 15-Jul-2023 Jay Jay Mariscal MD Start : 15-Jul-2023 Active new serratiopeptidase (15 sources) Start: 01-15-20 Serrapeptase 40,000 SPU Serrapeptase 40,000 SPU, Oral, Daily, Calcium 27 mg and Serrapeptase Enzyme 40,000 SPU. support healthy sinuses and breakdown unwanted proteins Start Date: 01/15/24 Status: Ordered ubidecarenone 100 mg oral capsule (1 source) End: 10-11-20 take 1 capsule by mouth once daily coenzyme Q-10 (Co Q-10) 100 mg capsule Take 1 capsule (100 mg) by mouth once daily. 10/11/2024 Discontinued (Therapy completed) ubidecarenone 100 mg / vitamin e 5 unt oral capsule (4 sources) Start: 07-15-20 take 1 capsule by mouth once daily Co Q 10 100 MG Oral Capsule TAKE 1 CAPSULE Daily Quantity: 90 Refills: 3 Ordered: 15-Jul-2023 Jay Jay Mariscal MD Start : 15-Jul-2023 Active take 1 capsule by mouth in the [facility] coenzyme Q-10 100 MG capsule Take 100 mg by mouth in the morning. Active valsartan 160 mg oral tablet (20 sources) Angiotensin 2 Receptor Vishnu Start: 02-12-2023 End: 02-01-2025 take 1 tablet by mouth once daily valsartan 160 mg Tab 90 EA, TAKE 1 TABLET BY MOUTH ONCE DAILY, Refills(s) 0 Start Date: 06/29/23 Status: Ordered Vitamin D 50,000 intl units (1.25 mg) oral capsule (2 sources) Start: 09-17-2022 End: 12-16-2022 take 1 capsule by mouth every week Vitamin D 50,000 intl units (1.25 mg) oral capsule 50,000 International_Unit = 1 cap(s), Oral, qWeek, X 90 day(s), # 13 cap(s), Refills(s) 0, Pharmacy: [facility], 154, cm, 09/12/22 10:34:00 EDT, Height/Length Dosing, 56.4, kg, 09/12/22 10:34:00 EDT, Weight Dosing Start Date: 09/17/22 Stop Date: 12/16/22 Status: Ordered Vitamin D3 5000 intl units oral tab (4 sources) Start: 04-27-2019 take 1 tablet by mouth once daily Vitamin D3 5000 intl units oral tab 5,000 International_Unit = 1 tab(s), Oral, Daily, Refills(s) 0, Prophylaxis Start Date: 04/27/19 Status: Ordered Problems Active Problems Problem Classification Problem Date Documented Date Episodic/Chronic Abdominal hernia (20 sources) Hernia of anterior abdominal wall Resolved: 9 10-08-2019 Episodic Acute bronchitis (2 sources) Acute infective bronchitis; Translations: [Acute bronchitis due to other specified organisms] Onset: 3 Episodic Anxiety disorders (20 sources) Anxiety; Translations: [Anxiety disorder] Onset: 3 02-07-2020 Chronic Cancer of breast (20 sources) Intraductal carcinoma in situ of breast; Translations: [Malignant neoplasm of upper-inner quadrant of female breast] Onset: 3 01-19-2021 Chronic Cancer of breast (20 sources) History of malignant neoplasm of breast; Translations: [Personal history of malignant neoplasm of breast] Onset: 3 01-17-2023 Episodic Cataract (1 source) Bilateral age-related nuclear cataracts; Translations: [Age-related nuclear cataract, bilateral] Onset: 3 11-10-2023 Chronic Chronic obstructive pulmonary disease and bronchiectasis (20 sources) Bronchitis; Translations: [Bronchitis, not specified as acute or chronic] Onset: 3 Episodic Conditions associated with dizziness or vertigo (20 sources) Vertigo; Translations: [Dizziness and giddiness] Onset: 3 12-12-2020 Episodic Coronary atherosclerosis and other heart disease (20 sources) Coronary arteriosclerosis; Translations: [Coronary atherosclerosis of unspecified type of vessel, [place] or graft] Onset: 3 02-07-2020 Chronic Comment on above: 40% LAD, cardiac cat heterization 2018; Disorders of lipid metabolism (20 sources) Dyslipidemia; Translations: [Other and unspecified hyperlipidemia] Onset: 3 Chronic E Codes: Fall (10 sources) Fall 08-17-2021 Esophageal disorders (11 sources) Gastroesophageal reflux disease; Translations: [Gastro-esophageal reflux disease without esophagitis] Onset: 3 02-07-2020 Chronic Essential hypertension (20 sources) Essential hypertension; Translations: [Unspecified essential hypertension] Onset: 3 02-07-2020 Chronic Fluid and electrolyte disorders (20 sources) Hypokalemia; Translations: [Hypokalemia] Onset: 3 04-27-2019 Episodic Genitourinary symptoms and ill-defined conditions (1 source) Dysuria; Translations: [Dysuria] Onset: 3 Episodic Headache; including migraine (17 sources) Migraine without aura, not refractory ; Translations: [Migraine without aura, not intractable, without status migrainosus] Onset: 4 Chronic Heart valve disorders (11 sources) Mitral valve regurgitation; Translations: [Mitral valve disorders] Onset: 3 10-11-2024 Chronic Comment on above: mild by echocardiogr am 2018; Immunizations and screening for infectious disease (9 sources) Encounter for screening for human papillomavirus (HPV); Translations: [Anti-nuclear factor positive] Onset: 1 04-09-2021 Episodic Inflammation; infection of eye (except that caused by tuberculosis or sexually transmitteddisease) (1 source) Keratoconjunctivitis sicca; Translations: [Keratoconjunctivitis sicca, not specified as Sjogren's, bilateral] Onset: 3 11-10-2023 Chronic Malaise and fatigue (20 sources) Fatigue; Translations: [Other fatigue] Onset: 4 Resolved: 9 04-28-2019 Episodic Menopausal disorders (20 sources) Atrophic vaginitis; Translations: [Atrophy of vagina] Onset: 3 Resolved: 9 04-28-2019 Chronic Miscellaneous mental health disorders (1 source) Insomnia; Translations: [Other insomnia not due to a substance or known physiological condition] Onset: 3 Chronic Mood disorders (20 sources) Depression; Translations: [Depressive disorder] Onset: 3 08-17-2017 Chronic Mycoses (6 sources) Candidal vulvovaginitis; Translations: [Acute candidiasis of vulva and vagina] Onset: 4 Episodic Neoplasms of unspecified nature or uncertain behavior (10 sources) Neoplasm of uncertain behavior of right breast 01-09-2021 Episodic Nonmalignant breast conditions (13 sources) Fibrocystic disease of breast; Translations: [Diffuse cystic mastopathy of right breast] Onset: 3 Resolved: 9 10-08-2019 Chronic Nonspecific chest pain (3 sources) Chest pain; Translations: [Chest pain, unspecified] Episodic Nutritional deficiencies (20 sources) Vitamin D deficiency; Translations: [Vitamin D deficiency, unspecified] Onset: 3 02-07-2020 Chronic Nutritional deficiencies (20 sources) Cobalamin deficiency; Translations: [Vitamin B deficiency] Onset: 3 07-19-2019 Episodic Osteoarthritis (4 sources) Degenerative joint disease involving multiple joints; Translations: [Secondary multiple arthritis] Onset: 1 04-09-2021 Chronic Osteoporosis (20 sources) Osteoporosis; Translations: [Postmenopausal osteoporosis] Onset: 1 02-07-2020 Chronic Other and unspecified benign neoplasm (10 sources) History of polyp of colon; Translations: [Personal history of colonic polyps] Onset: 4 Episodic Other ear and sense organ disorders (1 source) Sensorineural hearing loss, bilateral; Translations: [Sensorineural hearing loss, bilateral] Onset: 3 06-04-2023 Chronic Other ear and sense organ disorders (1 source) Bilateral hearing loss; Translations: [Sensorineural hearing loss, unilateral, left ear, with restricted hearing on the contralateral side] Onset: 3 06-04-2023 Chronic Other ear and sense organ disorders (1 source) Impacted cerumen of bilateral ears; Translations: [Impacted cerumen, bilateral] Onset: 3 Episodic Other ear and sense organ disorders (1 source) Impacted cerumen 08-19-2023 Episodic Other female genital disorders (1 source) Abnormal uterine bleeding; Translations: [Abnormal uterine and vaginal bleeding, unspecified] Onset: 3 Chronic Other female genital disorders (16 sources) Vaginal bleeding 10-30-2023 Chronic Other female genital disorders (1 source) Abnormal vaginal bleeding; Translations: [Abnormal uterine and vaginal bleeding, unspecified] Onset: 3 06-04-2023 Chronic Other injuries and conditions due to external causes (10 sources) Injury of coccyx 08-10-2021 Episodic Other lower respiratory disease (11 sources) Cough; Translations: [Cough, unspecified] Onset: 3 Episodic Other lower respiratory disease (1 source) Chronic cough; Translations: [Chronic cough] Onset: 4 Episodic Other lower respiratory disease (5 sources) Persistent cough 01-15-2024 Episodic Other nervous system disorders (1 source) Anesthesia of skin; Translations: [Anesthesia of skin] Onset: 4 Episodic Other nervous system disorders (15 sources) Numbness of hand 01-15-2024 Episodic Other non-traumatic joint disorders (1 source) Pain of left shoulder joint; Translations: [Pain in left shoulder] Onset: 4 Episodic Other screening for suspected conditions (not mental disorders or infectious disease) (1 source) Endometrium thickened; Translations: [Abnormal findings on diagnostic imaging of other specified body structures] Onset: 3 06-04-2023 Chronic Other screening for suspected conditions (not mental disorders or infectious disease) (19 sources) Thallium stress test abnormal; Translations: [Other nonspecific abnormal results of function study of cardiovascular system] Onset: 3 Resolved: 9 04-28-2019 Episodic Other skin disorders (1 source) Non-scarring alopecia; Translations: [Nonscarring hair loss, unspecified] Onset: 2 Episodic Other upper respiratory disease (11 sources) Allergic rhinitis; Translations: [Allergic rhinitis, unspecified] Onset: 3 10-23-2020 Chronic Other upper respiratory disease (1 source) Disorder of the nose; Translations: [Abscess, furuncle and carbuncle of nose] Onset: 3 Episodic Other upper respiratory disease (16 sources) Ulcer of nasal septum 10-30-2023 Episodic Other upper respiratory infections (20 sources) Chronic sinusitis; Translations: [Sinusitis] Onset: 3 02-19-2021 Chronic Other upper respiratory infections (20 sources) Acute upper respiratory infection; Translations: [Acute upper respiratory infection, unspecified] Onset: 2 Episodic Otitis media and related conditions (8 sources) Otitis media; Translations: [Otitis media, unspecified, left ear] Onset: 4 Episodic Pneumonia (except that caused by tuberculosis or sexually transmitted disease) (12 sources) Pneumonia; Translations: [Pneumonia, unspecified organism] Onset: 4 Episodic Residual codes; unclassified (17 sources) Body mass index 20-24 - normal; Translations: [Body Mass Index between 19-24, adult] Onset: 2 Episodic Residual codes; unclassified (10 sources) Sleep disorder 08-17-2017 Episodic Residual codes; unclassified (1 source) Patient encounter status; Translations: [Other specified health status] Onset: 3 Episodic Residual codes; unclassified (18 sources) Insomnia 09-26-2023 Episodic Residual codes; unclassified (1 source) Amnesia; Translations: [Other amnesia] Onset: 4 Episodic Residual codes; unclassified (15 sources) Poor short-term memory 01-15-2024 Episodic Residual codes; unclassified (2 sources) Other general symptoms and signs; Translations: [Clinical finding (finding)] Onset: 4 Episodic Residual codes; unclassified (2 sources) Never smoked tobacco; Translations: [Other specified health status] Onset: 4 10-11-2024 Episodic Residual codes; unclassified (2 sources) Body mass index (BMI) 23.0-23.9, adult; Translations: [Body mass index (BMI) 23.0-23.9, adult] Onset: 4 Episodic Residual codes; unclassified (2 sources) Other specified health status; Translations: [Other specified health status] Onset: 4 Episodic Skin and subcutaneous tissue infections (4 sources) Impetigo; Translations: [Impetigo, unspecified] Onset: 4 Episodic Spondylosis; intervertebral disc disorders; other back problems (12 sources) Degeneration of cervical intervertebral disc; Translations: [Other cervical disc degeneration, unspecified cervical region] Onset: 4 Chronic Spondylosis; intervertebral disc disorders; other back problems (20 sources) Cervico-occipital neuralgia; Translations: [Low back pain] Onset: 1 Resolved: 9 02-07-2020 Episodic Thyroid disorders (20 sources) Hypothyroidism; Translations: [Unspecified acquired hypothyroidism] Onset: 3 02-07-2020 Chronic Unclassified (2 sources) Encounter for screening for cardiovascular disorders / Z13.6(ICD-9) Onset: 7 Unclassified (20 sources) Patient encounter status Resolved: 9 04-28-2019 Unclassified (3 sources) Body mass index 20-24 - normal 01-17-2023 Unclassified (11 sources) Pain of left shoulder region 02-06-2024 Unclassified (7 sources) Varicose vein of calf 05-12-2024 Varicose veins of lower extremity (1 source) Varicose veins of lower extremity; Translations: [Asymptomatic varicose veins of unspecified lower extremity] Onset: 4 Episodic Viral infection (5 sources) Viral disease; Translations: [Viral infection, unspecified] Onset: 3 Episodic Past or Other Problems Problem Classification [...] 10-08-2019 Episodic Diseases of mouth; excluding dental (2 sources) Xerostomia; Translations: [Dry mouth, unspecified] Onset: 04-09-2021 04-09-2021 Episodic E Codes: Fall (1 source) Fall; Translations: [Unspecified fall, initial encounter] Onset: 06-04-2023 06-04-2023 Episodic Inflammation; infection of eye (except that caused by tuberculosis or sexually transmitteddisease) (11 sources) Allergic conjunctivitis; Translations: [Blepharitis of upper and lower eyelids of bilateral eyes] Onset: 11-10-2023 10-23-2020 Episodic Nonmalignant breast conditions (9 sources) Lump of upper outer quadrant of breast; Translations: [Mastodynia] Onset: 12-06-2022 01-17-2023 Episodic Other connective tissue disease (10 sources) Foot pain Resolved: 04-27-2019 04-28-2019 Episodic Other connective tissue disease (3 sources) Pain of bilateral hands; Translations: [Pain in right hand] Onset: 04-09-2021 04-09-2021 Episodic Other endocrine disorders (11 sources) Disorder of endocrine system; Translations: [Endocrine disorder, unspecified] Onset: 06-04-2023 02-07-2020 Episodic Other eye disorders (10 sources) Dry eyes Resolved: 04-27-2019 10-08-2019 Episodic Other eye disorders (2 sources) Tear film insufficiency; Translations: [Dry eye syndrome of bilateral lacrimal glands] Onset: 04-09-2021 04-09-2021 Episodic Other hematologic conditions (2 sources) ESR raised; Translations: [Elevated erythrocyte sedimentation rate] Onset: 04-09-2021 04-09-2021 Episodic Other nervous system disorders (12 sources) Paresthesia of hand ; Translations: [Anesthesia of skin] Onset: 04-09-2021 10-23-2020 Episodic Other nervous system disorders (2 sources) Paresthesia of foot ; Translations: [Anesthesia of skin] Onset: 04-09-2021 04-09-2021 Episodic Other non-traumatic joint disorders (11 sources) Joint pain; Translations: [Pain in unspecified joint] Onset: 06-04-2023 11-09-2020 Episodic Other skin disorders (9 sources) Loss of hair; Translations: [Nonscarring hair loss, unspecified] Onset: 06-04-2023 09-12-2022 Episodic Other upper respiratory disease (10 [...] (20 sources) Onset: 07-13-1969 Resolved: 11-25-1977 08-11-2019 Unclassified (1 source) Onset: 10-11-2024 10-11-2024 Results Test Name Value Interpretation Reference Range Facil ity Ambulatory Visit Summaryon 1 12-15-2023 Ambulatory Visit Summary Ambulatory Visit Summary KERMIT ROSEN :1950 Visit Date:10/15/2024 Ambulatory Visit Instructions Your Diagnosis Cough Fatigue Weak Pneumonia involving right lung Chronic sinusitis with recurrent bronchitis Izzy's thyroiditis Bronchitis, not specified as acute or chronic Family history of colonic polyps Hypothyroidism Screening for colon cancer Viral bronchitis Yeast infection of the vagina Your Care Team Attending Physician - Vilma John Primary Care Physician - Vilma John This Is Your Medications List albuterol (Ventolin HFA 90 mcg/inh Aerosol-Adpt) amoxicillin-clavula carmen (Augmentin 875 mg-125 mg Tab) azithromycin (Zithromax Z-Dionicio 250 mg oral tablet) benzonatate (benzonatate 100 mg Cap) fluconazole (Diflucan 150 mg Tab) predniSONE (predniSONE 10 mg Tab) thyroid desiccated ([place] Thyroid 30 mg Tab) Contact prescribing physician if questions or concerns Misc Prescription (spacer) Non-Formulary Medication (H-HTP 100 mg) Non-Formulary Medication (NAC Detox Regulators) Non-Formulary Medication (Nitric Oxide Foundation) Non-Formulary Medication (Serrapeptase 40,000 SPU) ascorbic acid (Vitamin C 500 mg oral tablet, chewable) garlic (Garlic) iodine ivermectin magnesium amino acids chelate menaquinone (Vitamin K2) metoprolol (metoprolol 50 mg ER Tab) multivitamin with minerals (Elderberry Gummies with Vitamin C and Zinc) mupirocin topical (mupirocin Top 2% Oint) sertraline (sertraline 50 mg Tab) valsartan (valsartan 160 mg Tab) zinc acetate (zinc acetate 50 mg oral capsule) Procedures Performed Biopsy of breast (02/02/2021), Lumpectomy of right breast (02/02/2021), Ultrasonography guided biopsy of right breast (01/12/2021), Dilation and curettage, Tonsillectomy, Tubal ligation, Ultrasonography guided biopsy of right breast. Discharge Vitals Temperature (Oral) 38.0 ???C Heart Rate (Peripheral) 83 Respiratory Rate 16 Blood Pressure 118/62 Height 154 cm Height 61 in Weight 55.6 kg Weight 122.577 lb BMI 23.44 What to do next Scheduled Follow-Up Appointments Friday 1:40 PM EST With: Vilma John Where: [facility] [address], [place] [address]- Friday 2:30 PM EDT With: Where: [facility] [address], [place] [address]- You Need to Schedule the Following Appointments Follow Up with Vilma John, [facility], [facility] When: In 2 weeks Comments: lung follow up Where: [address], [facility] [address] [address]- Medications What How Much When Why Instructions New amoxicillin-clavula carmen (Augmentin 875 mg-125 mg Tab) 1 Tablets By Mouth Every 12 hours Duration: 10 Days Pickup at [facility] 1985 New azithromycin (Zithromax Z-Dionicio 250 mg oral tablet) 1 Packets By Mouth As Directed Pneumonia involving right lung Chronic sinusitis with recurrent bronchitis Duration: 5 Days as directed on package labeling Pickup at [facility] 1985 New benzonatate (benzonatate 100 mg Cap) 1 Capsules By Mouth 3 times a day Pneumonia involving right lung Duration: 10 Days Pickup at [facility] 1985 New fluconazole (Diflucan 150 mg Tab) 1 Tablets By Mouth Once Yeast infection of the vagina Refills: 1 Pickup at [facility] 1985 New predniSONE (predniSONE 10 mg Tab) See instructions Bronchitis, not specified as acute or chronic Pneumonia involving right lung - Oral As Directed 4 tabs x 2 days, 3 tabs 2 days, 2 tabs x 2 days then 1 tab x 2 days with food Pickup at [facility] 1985 Unchanged albuterol (Ventolin HFA 90 mcg/ inh Aerosol-Adpt) 2 Puffs Inhalation 4 times a day as needed for for wheezing Viral bronchitis Pickup at [facility] 1985 Unchanged thyroid desiccated (Hurlock Thyroid 30 mg Tab) 1 Tablets By Mouth Every day Izzy's thyroiditis Hypothyroidism Duration: 90 Days no Generic substitutions please - Pickup at [facility] 1985 Unchanged ascorbic acid (Vitamin C 500 mg [...] Prescription (spacer) See instructions Bronchitis Sinusitis BMI 23.0 (more content not included)... Normal [facility] Medicine Office/Clini c Noteon 10-15-2024 Family Medicine Office/Clinic Note Family Medicine Office/Clinic Note Chief Complaint Patient states she's had a cough, weak, shaking, chills, fatigue since Friday. HPI Staff Patient here for cough, fatigue, weakness since Friday. Has concerns of pneumonia History of Present Illness Patient with cough for over a week, congestion and fever developing,. No hemoptysis. Mild nausea reported, no nausea vomiting or diarrhea. Patient has had pneumonia in the right before. She reports a productive cough that is developed in the last 2 days. She does report possible sick contacts last week but no known COVID or flu exposure. Patient does not have asthma or COPD but does struggle with chronic sinusitis and bronchitis. Patient is not a smoker. Patient's O2 sat is noted to be 93% today. Normally she is 100% oxygen. She denies any shortness of breath but reports significant fatigue over the last 3 days. Review of Systems PHQ Score Initial Depression Screen Score: 1 SCORE Physical Exam Vitals & Measurements T: 38.0 ???C(Oral) HR: 83(Peripheral) RR: 16 BP: 118/62 SpO2: 93% HT: 61 in HT: 154 cm WT: 55.6 kg WT: 122.577 lb BMI: 23.44 General: alert, no acute distress, well appearing, _pleasant thin elderly female appears ill today evaluated in room 2 Skin: warm, dry, intact, slightly pale today and warm to touch Head: no trauma, normocephalic Neck: Trachea midline, no adenopathy, no tenderness Eye: normal conjunctiva, sclera clear, _PERRLA ENMT: TM's clear but slightly injected, oral mucosa moist, no pharyngeal erythema or exudate, normal dentition Cardiovascular: regular rate and rhythm, normal peripheral perfusion, no edema Respiratory: Lungs rhonchi and decreased breath sounds and wheezing noted to the right posterior lung alves, respirations non labored Chest wall: no deformity, non tender Back: No tenderness, Normal ROM, Normal alignment. Slight kyphosis noted Extremities: no deformity, no trauma Neurological: oriented x 4, LOC appropriate for age, CN II-XII intact, motor strength equal & normal bilaterally, sensation equal & normal bilaterally, speech normal Psychiatric: cooperative? , affect appropriate for age? , normal? judgement, normal? psychiatric thoughts. Assessment/Plan 1. Cough (R05.9: Cough, unspecified) COVID and flu test were both negative in the office today Ordered: Influenza Type A&B POC 88493 Rapid COVID POC 18819 2. Fatigue (R53.83: Other fatigue) Patient did have a fever. Encouraged [id number] medication electrolyte fluid replacement and fever control with Tylenol Motrin at home Ordered: Influenza Type A&B POC 34837 Rapid COVID POC 25306 3. Weak (R53.1: Weakness) Ordered: Influenza Type A&B POC 80231 Rapid COVID POC 94106 4. Pneumonia involving right lung (J18.9: Pneumonia, unspecified organism) Will treat the patient for community-acquired atypical pneumonia today with Augmentin 875 twice daily x 10 days and azithromycin 500 mg on day 1 and 250 mg on days 2 through 5. Will also give patient benzonatate 100 mg as needed for coughing and prednisone due to expiratory wheezing. She has an inhaler at home and a refill will be sent to the pharmacy. Strongly encouraged close follow-up in 2 weeks. Considered a chest x-ray but will treat based on symptoms and physical exam. 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 Ordered: azithromycin, = 1 packet(s), Oral, As Directed, as directed on package labeling, X 5 day(s), # 6 tab(s), Refills(s) 0, [facility], [facility], cm, 10/15/24 10:15:00 EST, Height/Length Dosing, 55.6, kg, 10/15/24 10:15:00 EST, Weight Dosing benzonatate, 100 mg = 1 cap(s), Oral, TID, X 10 day(s), # 30 cap(s), Refills(s) 0, [facility], cm, 10/15/24 10:15:00 EST, Height/Length Dosing, 55.6, kg, 10/15/24 10:15:00 EST, Weight Dosing predniSONE, See Instructions, - Oral As Directed 4 tabs x 2 days, 3 tabs 2 days, 2 tabs x 2 days then 1 tab x 2 days with food, # 16 tab(s), Refills(s) 0, [facility], [facility], cm, 10/15/24 10:15:00 EST, Height/Length Dosing, 55.6, kg, 10/15/24... 5. Chronic sinusitis with recurrent bronchitis (J32.9: Chronic sinusitis, unspecified) Encouraged nasal saline rinsing recurrent and as needed albuterol Ordered: azithromycin, = 1 packet(s), Oral, As Directed, as directed on package labeling, X 5 day(s), # 6 tab(s), Refills(s) 0, [facility] [facility], [facility], cm, 10/15/24 10:15:00 EST, Height/Length Dosing, 55.6, kg, 10/15/24 10:15:00 EST, Weight Dosing 6. 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 [facility] Comment on above: Result Comment: Elec tronically Signed By: Esvin AVILES, Vilma Rivera\.br\Date and Time Signed: 10/15/24 11:08 EST Provider Letteron 10-15-2024 Provider Letter Provider Letter October 15, 2024 KERMIT ROSEN [address] [place] [address] : 1950 To Whom It May Concern, Please excuse above patient from work. Date of Illness: From: 2023 To: 2023 May Return to Work On: 2023 if fever free for 24hrs and symptoms manageable. Comments: Please the office if there are any questions. Thank You. Sincerely, TRACI Louis [facility] [address] [place] [address], [place] [address] [facility] ALL BASIC METABOLIC PANELon 09-10-2024 Anion gap [Moles/Vol] 12.7 mmol/L [facility] Calcium [Mass/Vol] 9.2 mg/dL 8.5 - 10.1 mg/dL [facility] Chloride [Moles/Vol] 103 mmol/L 98 - 107 mmol/L [facility] CO2 [Moles/Vol] 25.0 mmol/L 21.0 - 32.0 mmol/L [facility] Creatinine [Mass/Vol] 0.87 mg/dL 0.55 - 1.02 mg/dL [facility] GFR/1.73 sq M.predicted CKD-EPI (S/P/Bld) [Vol rate/Area] >60 >=60 mL/min/1.73m 2 [facility] Glucose [Mass/Vol] 141 mg/dL High 74 - 106 mg/dL NO [facility] Interpretation and review of laboratory results Abnormal [facility] Potassium [Moles/Vol] 3.7 mmol/L 3.5 - 5.1 mmol/L [facility] Sodium [Moles/Vol] 137 mmol/L 136 - 145 mmol/L [facility] TBH EGFR-NON AF ZIMBABWEAN >60 >=60 mL/min/1.73m 2 [facility] Urea nitrogen [Mass/Vol] 23.0 mg/dL High 7.0 - 18.0 mg/dL [facility] Urea nitrogen/Creatinine [Mass ratio] 26.4 mg/mg [facility] Ambulatory Visit Summaryon 0 07-09-2024 Ambulatory Visit [...] with Vitamin C and Zinc) thyroid desiccated (Hurlock Thyroid 30 mg Tab) valsartan (valsartan 160 [...] EDT With: Esvin AVILES, Vilma Rivera Where: [facility] [address], [place] [address]- Friday 2:30 PM EDT With: Where: [facility] [address], [place] [address]- Medications What How Much When Why Instructions New mupirocin topical (mupirocin Top 2% Oint) 1 Application Topical 2 times a day Diabetic Impetigo Pickup at [facility] 1985 Unchanged albuterol (Ventolin HFA 90 mcg/ [...] breakdown unwanted (more content not included)... Normal [facility] Family Medicine Office/Clini c Noteon 07-09-2024 Family [...] is correct. -Additional information provided if needed. [place] Hot, dry cough, sore throat, yellow crap [...] slowly improving Ordered: Influenza Type A&B POC 59518 Rapid COVID POC 91062 2. 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 Substitutions may have occurred due to the [...] right breast (more content not included)... Normal [facility] Comment on above: Result Comment: Elec tronically Signed By: Vilma John\.reg\Date and Time Signed: 07/09/24 10:37 EDT Family Medicine Office/Clini c Noteon 06-27-2024 Family Medicine Office/Clinic Note Family Medicine Office/Clinic [...] female evaluated (more content not included)... Normal [facility] Comment on above: Result Comment: Elec tronically [...] of clutter to prevent tripping and/or falling. [place] Advance Directives reviewed. Documents remain at home [...] 5. Hypothyroidism (E03.9: Hypothyroidism, unspecified) Continues taking Hurlock Thyroid daily as ordered. Voices no sensitivity to cold, extreme hair loss or increased daytime fatigue. Labs and medications followed up with PCP as needed 6. Mild CAD (I25.10: Atherosclerotic heart disease of [place] coronary artery without angina pectoris) Patient follows with cardiolo (more content not included)... Normal [facility] Comment on above: Result Comment: Elec tronically Signed By: Vilma John\.br\Date and Time Signed: 05/27/24 09:46 EDT\.br\Electronically Co-Signed By: Marycarmen Mills LPN\.br\Date and Time Co-Signed: 05/26/24 15:44 EDT Ambulatory Visit Summaryon 0 05-26-2024 Ambulatory Visit Summary Ambulatory Visit Summary BETYKERMIT Allen Shaw :1950 Visit Date:05/26/2024 Ambulatory Visit Instructions Your Diagnosis Annual visit for general adult medical examination without abnormal findings Mild recurrent major depression Benign essential hypertension Hyperlipidemia, mild Hypothyroidism Mild CAD Your Care Team Attending Physician - Vilma John Primary Care Physician - Vilma John This Is Your Medications List [facility] Prescription (spacer) Non-Formulary Medication (NAC Detox Regulators) [...] sertraline (sertraline 50 mg Tab) thyroid desiccated (Hurlock Thyroid 30 mg Tab) valsartan (valsartan 160 [...] 10:00 AM EDT With: Vilma John Where: [facility] Normal [address], [place] [address]- \.br\ Medications\.br\ What How Much When Why [...] By Mouth Every day\.br\ Unchanged thyroid desiccated (Hurlock Thyroid 30 mg Tab) 1 Tablets By [...] flaxseeds, walnuts, almonds, and seeds.\.br\ ? \.br\ [place]-3 fats. These are found in foods such [...] oil, palm kernel oil, and coconut oil.\.br\ [facility] Ambulatory Visit Summary KERMIT ROSEN :1950 Visit [...] with Vitamin C and Zinc) thyroid desiccated (Hurlock Thyroid 30 mg Tab) valsartan (valsartan 160 [...] Follow-Up Appointments Friday 2:30 PM EDT Where: [facility] Normal [facility] Patient Educationon 05-26-20 Patient Education Cardiovascular Hypertension, Adult Hypertension is [...] Keep all follow-up visits. Medicines ? Take xqjv-rtm-dmedpnv and prescription medicines only as told by [...] For m (more content not included)... Normal [facility] Patient Education Dyslipidemia Dyslipidemia is an imbalance [...] to bec (more content not included)... Normal [facility] YOSELIN Individual Abson 024 Centromere protein B Ab Qn (S) <0.2 Invalid Interpretation Code 0.0-0.9 [facility] Comment on above: Performed By: #### 2 [id number] #### [facility] [address] [place] [address] Chromatin Ab Qn <0.2 Invalid Interpretation Code 0.0-0.9 [facility] Comment on above: Performed By: #### 2 [id number] #### [facility] [address] [place] [address] DNA double strand Ab Qn (S) [IU]/mL Invalid Interpretation Code 0-9 [facility] Comment on above: Result Comment: Nega tive <5 Equivocal 5 - 9 Positive >9 Performed By: #### 2 [id number] #### [facility] [address] [place] [address] Loretta-1 extractable nuclear Ab Qn (S) <0.2 Invalid Interpretation Code 0.0-0.9 [facility] Comment on above: Performed By: #### 2 [id number] #### [facility] [address] [place] [address] Ribonucleoprotein extractable nuclear Ab Qn (S) 1.1 AI High 0.0-0.9 [facility] Comment on above: Performed By: #### 2 [id number] #### [facility] [address] [place] [address] SCL-70 extractable nuclear Ab Qn (S) <0.2 Invalid Interpretation Code 0.0-0.9 [facility] Comment on above: Performed By: #### 2 [id number] #### [facility] [address] [place] [address] See below: Comment Invalid Interpretation Code [facility] Comment on above: Result Comment: Auto antibody [...] Sm (anti-Willis) SLE 15 - 30% --------- SHEEP STICKER Mixed Connective Tissue Disease 95% (U1 nRNP, SLE 30 - 50% anti-ribonucleoprotein) Polymyositis and/or Dermatomyositis 20% --------- Scl-70 (antiDNA Scleroderma (diffuse) 20 - 35% topoisomerase) Crest 13% --------- Loretta-1 Polymyositis and/or Dermatomyositis 20 - 40% --------- Centromere B Scleroderma - Crest variant 80% Performed at: [facility] [id number] PhD Ramila Ackerman Performed By: #### 2 [id number] #### [facility] [address] [place] [address] Sjogrens syndrome-A extractable nuclear Ab Qn (S) <0.2 Invalid Interpretation Code 0.0-0.9 [facility] Comment on above: Performed By: #### 2 [id number] #### [facility] [address] [place] [address] Sjogrens syndrome-B extractable nuclear Ab Qn (S) <0.2 Invalid Interpretation Code 0.0-0.9 [facility] Comment on above: Performed By: #### 2 [id number] #### [facility] [address] [place] [address] Willis extractable nuclear Ab Qn (S) <0.2 Invalid Interpretation Code 0.0-0.9 [facility] Comment on above: Performed By: #### 2 [id number] #### [facility] [address] [place] [address] YOSELIN w/Reflex if POSon 2023 Nuclear Ab Ql (S) Positive Abnormal Negative [facility] Comment on above: Result Comment: Perf ormed at: [facility] [id number] PhD Ramila Ackerman Performed By: #### 1 [id number] #### [facility] [address] [place] [address] CH50on 05-20-2024 Complement total hemolytic CH50 Qn >60 Invalid Interpretation Code >41 [facility] Comment on above: Result Comment: Age Male [...] determine out of range values. Performed at: [facility] [id number] [place], [place] [id number] PhD Ramila Ackerman Performed By: #### 1 [id number] #### [facility] [address] [place] [address] Coding Summary.on 05-20-2024 Coding Summary. JZELHicd08MLe9vGv+P GhlYWQ+DR2XSMXyI48k jYEseB4yH3WWIZrAMxd gQVBQTElOSyIgbmFtZT 1kaXNjZXJu IC8+AP8cYJJcNifhpAH bv9A9bZT8B59udi6gXB nbrWC8AZGxUgUcwqfun 8sejLn2TRznTmckXrDf RXIuqL11CLC0eW50Yl9 0oLEyfOVzh4oqwZn5Tu TqDJLsRYU5mSazYWsfe 4YtWWFjV25teEGex9Q2 IGNvbGxhcHNlOyBlbXB 5eL2sXNduajmmg9vozy hfVle6yu09vLHam6P9j KP2T7SomeR3OYNimVPr IytzyNWZiT6eyeqbo1k rwbgzKqNmZSZaMEa9YB j5ARKwrGuhNvHgMQ59E ZJ5PLUfcnQdD3RnGBMz rMcoNjF4h5R7Di7ZN0E FAiggO1AMYFKKDCimpB Q+KO11eh98W6NzQkxhS sf9CPIxXQK3jEV5gX8e HROpRMaei2I8oAB0T4R mdeOwnh2hd9tiKJNaRP jkE61wgFSfq0F8OIHge KF5GWKqoJmlCgWoaZ56 Oyc+RAUueWqgj9McTex kx4uif8mjpDf0RezmSS DlvmOrkYddKRR1t1WoE r9vENGiuAP4mBP5wC5t MySpOnW3KGvmC541MaY bnPMjSkutC17cL0OcwJ A+ANUaTxc0FACwgMdgX R9sY7CvRNXkemfpzJDm sTmwMZ0fTKCebhonVXX uiK2iGTYpL2k7MiWyBf U5MLboJ1LmJASqrzoaA y49iE5mRhAwCmN3WOtr E8ExnyP3OVOpeAOxYUu sCVM1E28js8X8CSKgEW QwZJG5dND9qQ5wbZgsy jogbGVmdDsgdmVydGlj SSoxPFgrZ865XRYreKl nPkNvZGluZyBEYXRlOi AgMDYvMjAvMjAyNDwvd GQ+DXCeIHN0bNmmWQWp sKRtWMhwIa9uzBdvoEq dUH4gVAXrcuusEKMgaH 3eFZSsfSEglGemDN6cS KQczevse059ZuEcLHH2 ABMisBCsS5LahK0rGzX gNRGyGNUiV0DziNPrIT dqO943ITciCvY3RGLcx zFhL5BbETHuvCtbVjO2 t8O1Pi9Zx2VabdhtT2O xkRJuKsBqWmwjSBp7V9 RkPjwvdHI+ZH22EBJzG S93PDx3ALM3vRwqJRgb ELYdC3LdnR8cGoMxSNO kZGRkOyc+PHRhYmxlIH dpZHRoPScxMDAlJyBzd XwvWB6lFu8sHMVlPYIv zMaclRGmIwPei1exJMS oEPfgTI1ihFgvB4SjwW R8WJIbt3z9Ey25F61uI 3JvdXA+QVUwtSK8dXT8 sB9lGbFzZdS0PGjdV57 4KbYcpTMrJrvjg1izk0 kyaEz8UbQ9HSTileHpa OujEBF8g1VpUg00M77a IHdpZHRoPSIxNSUiIHZ etBgvpc3kqH4iWs6+PG FvqSR6iQG4qO7iGfFnX yA6YUgsV153GgYdfHPr Yrsth0jss2vivGk2NzI rGDEeqmHojDogRBA1g4 LnFg39W9KrqPlxx4OoU wj0pz15kQBwy3Q4xCK7 R0HsBZJvfllpuCWmiQp tCH8sJLKyqclpHMPpiR 2sVJRyI9r7DoWpYdO5J IoqD0RqnzV7NCQjqWVk YJQdgCRPqE1ddqnsf9q jrctqQxSsXRAlGFy2DW g4RKMigUcnJdKwMWB3Z gC6XRD5jNSouJ5mdNwc oymdbL8jSog+OAU9sIN mrECYMN3tVfkvnEL+PH PcVBX2gNzxDHagVNFlu U6xJFXpQ7s4FxMqHaS7 LZjaO8JfovX9YMPmxUG zJORilEJPtD1jnvaoi9 pazfsaYsJwQTMuFRp0A Ik5KMNmrHofIlQkWVF8 RfQ8VSL7tRWqnK2pnYu maamxoH8mFjd+QmlydG xfUBO3UTm8T2XpHpv5V SKxpEsqKD5pdCGoQChf Wm1amQfreUbfXZ0cFLM yuxvwu291QvCuo3cpWV FauZVgXGblQTZ0D51lr 9Z8BFZoDMWiFDI7aST7 eD8mgHbdcgtofEIklAe gdmVydGljYWwtYWxpZ2 23ORUkrJrtGzBlDEu3X 5VvHhu5VUStpMfiKA8v tYJjQNqdIs5pxUsycQj xMY6qFQVmdgwtl823Xr Xxp3yaGKHfvQIbVYlfM LI2Y29uj7I6RCZyIRDa GNI3tAH0lL0glSdfwup gbGVmdDsgdmVydGljYW dxPVlhT626EPYxrKskL pJhrJs5O5HeCkk0OSMg rXorXB4xaEAlKOttEr4 txWpifPvqTO1zPEOlsw yhn481FoXpg3wxGLVfp EYaETcjAWD0J04jn6R7 NNOwPEOkVCD5qYG6wZ4 hbGlnbjogbGVmdDsgdm GllLdzTAbnPZdvU091J HRvcDsnPlBhdGllbnQg AEhjZLm3A5QlRjwuyVH +QJ15XWJxLY28jCQkhN Vdg0hztPf1IaIyRDWhS UX6wFmzRIjkt7SkGERv O99xqJQot0J8HTUkdHa loWWePzVqkRB4rM0rPW ixceihc9qmhfgnAqaca 6tnvq67zH91N65vUVpl ZHRoPSIzMCUiIHZhbGl evk7wiQ4lVg0+PGNvbC E9dZN0fQ2iNBUeIuF6F NumD922YzDcrMFsAcwb g4nuo4lzwQk3ByQ4BVF vtlGceDjfAKF6m1LdNu 21X22xXWsjZZKnZHObB BIhMFDegZlzmh5bvH6t Ii8+VYQrkOS1gYI7kW3 yUbGlAiT5LJdpC589Xz JpnFJcEdvbB21jR6Idw XA+EIQtHdq5ITWnpSen ZK5vxXSwCXllWj9aWNU 6YiNhHrWiJCnxF8ZfJH KucrcvwxvbgEL1LNIcI MWptT47Zk9jeRzlDFMc fFRVjO3zxiwab7geicw uMbGrFVYlPPu4KPq4YH TndAiwHoIlTMN3MiV6B YS8aSQihL5diAqxsgwn jW4fE5FcGYJctlxjSe2 0oF0fBfDaCwJ5FJdzLw c+KISOLRcfE7ALKxpQX FQgTTwvdGQ+PHRkIHN0 xGybUSrfWXPwqD2oATH lS2r0RsUpFhU9ACyaZ5 HlQSKkguygNd82iZ5dP mCzEpA1DUtnP1RgdqO9 THWsdODiWZioUFS2R64 xp7Z4XWEaGVZsLWK4gT W5oG7ccQcquyohzIDpt DsgdmVydGljYWwtYWxp A767DFBmmWvrDsZbNlX iLdF1OGB6Y8QrEcp4OB TecFyiPX6ciOFbAFafG m4hoIbmjTyhOY3uBJDt teqfFERguN5eLOMmeKX iuDmxDV3dKNBtbeyqy6 04AjGcEAT8TMQydDDxF 2MchC6hBwRxDQTmXUZr D6FmdXWoDCvfE554LJx lMkW9HSQvbcOyK1JvPA EhbZbhGxB4m4B5Ed63H CBZZWFyczwvdGQ+PHRk GVO0mDkeHFuoLXJfmS4 gFECxT1h7VtUcKsX8EU fnV7WiLLRcuqgoAs66q P8vUnOnZrV9ZJpxF0Wk ueL0ADHciMKxIDcsFKO 0N30vd4U9SHEsYUEzSP D6cZJ0lO6vgHjrxlowi GVmdDsgdmVydGljYWwt FIdvI355YCByzTqlPpO lbWFsZTwvdGQ+PHRkIH B5xYayLWwfXSHjsO1iU CZtJ9k2PmCsXlO5NOoi C4RaSIVrfchiQs55mU6 yUrXwXbN4LIljS3Yetl I3FVYltUGeOMudZAW0N 16zl8R0KIJwTQDnEBF7 lPC6bT6ffTxfjxgwnIA mdDsgdmVydGljYWwtYW hbS369RFUxdOpfBt24z KWecYntlrG1K8QeNbkg dHI+MU51YYXuKU68vJF noMNds5czkJv2KvOfQM OdJKS7tHcoSGmgn1ElX DTjY46slEUlo4H8TWGa wNufbQIcIbMraKA2pR8 tJNhqkjoyv4vmicalYp ine8smqf30xJ31O10sL HdpZHRoPSIzMCUiIHZh fZcrlp2ocX4bRz7+PGN spCJ9sST3lO1bWrRgSt G7HRfcR542DiKuzQIcS slut3ndo7txbPs0ByXx KAMqreFyeIrwXQN4t9A hYj83X07iZSoiSVJoYI HtOFQiMXXwwUrpxe5ah G9wIi8+HF8nk5cajm21 gQ31uXA+ZLHtZOM2nVt sYNzkIVHkwR8pXTprMi T6ESPkEoCttO32cQPiO RpoKo9duXfodTkeKB0k XGHcdwqea389JvTbn2b gUSUoxEMlVBbjRYR1A8 8bf9I6RNMoWDQwPNB2i AX6dC7oxEqnbkdlzHBr dDsgdmVydGljYWwtYWx mI606EGEagAiqPiMwgP HvT9sjreBJFK3kXjmzj GQ+JMBwMCD5kAzyYNmw QZDaoD7lDSSiV9h7UsT eEhP9ZGccM9LzmmO3FK ScgGOoQKApeYGDpS2ky kgvt0fvvowiRlXdJYZe MCb5EBe5XDEoqWpyUwO qAXF4BoY9QST1dXOudE 0juUvqwoxliR4jYin+R klOOjwvdGQ+PHRkIHN0 kWzfDDbqJHYrrK3tYVC sZ1f2UwBfJdU2QQxeD6 SjwgQ8BNBrxNFdULIny DBXdS0zhelcw3heaphs JsHfZNWsQGg7CBt4UVR zuFibTzFfGGR1HpF8KY E9uMEgpV1owAdmndnpr G9wOyc+TVJOOjwvdGQ+ VTDsENU3tHpzBFqfFXR whD7hNLXwY3a8TnSoIr R1IIgpJ4LpdqS7RNHql ZFkTVAmcCAYgY5folea u0swmuzaYwPoCGOhAEy 7JEp3DFAcvJqkGsUsIV R0LjG0QOA5jLWtgM8fn BxloyzvpB0eOup+UGF5 QWP2MA90PJ35Z5VtZju vdGFibGU+PHRhYmxlIH dpZHRoPScxMDAlJyBzd MlzNF3jEv8kSSYmNTHl bGxhcHNlOiBjb (more content not included)... Normal [facility] IgA, Quant.on 05-20-2024 IgA [Mass/Vol] 252 mg/dL Invalid Interpretation Code 31-094 [facility] Comment on above: Result Comment: Perf ormed at: [address] [phone] [id number] PhD Ramila Ackerman Performed By: #### 1 [id number] #### [facility] [address] [place] [address] IgE, Quanton 05-20-2024 IgE Qn 30 International_Unit/ mL Invalid Interpretation Code 1-920 [facility] Comment on above: Result Comment: Perf ormed at: [facility] [address] [place], [place] [id number] MD Zack David Performed By: #### 1 [id number] #### [facility] [address] [place] [address] IgG, Quant.on 05-20-2024 IgG [Mass/Vol] 1137 mg/dL Invalid Interpretation Code 060-9703 [facility] Comment on above: Result Comment: Perf ormed at: [facility] [address] [place], [place] [id number] PhD Ramila Ackerman Performed By: #### 1 [id number] #### [facility] [address] [place] [address] IgM, Quanton 05-20-2024 IgM [Mass/Vol] 102 mg/dL Invalid Interpretation Code [facility] Comment on above: Result Comment: Perf ormed at: [facility] [address] [id number] PhD Ramila Ackerman Performed By: #### 1 [id number] #### [facility] [address] [place] [address] Vitamin D 25 Hydroxyon 05-14 25-hydroxyvitamin D3 [Mass/Vol] 46.2 ng/mL Normal 30.0-100.0 [facility] Comment on above: Performed By: #### 5 [id number] #### [facility] [address] [place] [address] BMPon 05-13-2024 Anion gap [Moles/Vol] 12 mmol/L Normal 6-16 [facility] Comment on above: Performed By: #### 2 [id number] #### [facility] [address] [place] [address] Calcium [Mass/Vol] 9.8 mg/dL Normal 8.9-11.1 [facility] Comment on above: Performed By: #### 2 [id number] #### [facility] [address] [place] [address] Chloride [Moles/Vol] 104 mmol/L Normal 101-111 [facility] Comment on above: Performed By: #### 2 [id number] #### [facility] [address] [place] [address] CO2 [Moles/Vol] 25 mmol/L Normal 21-31 [facility] Comment on above: Performed By: #### 2 [id number] #### [facility] [address] [place] [address] Creatinine [Mass/Vol] 0.9 mg/dL Normal 0.5-1.3 [facility] Comment on above: Performed By: #### 2 [id number] #### [facility] [address] [place] [address] Glucose [Mass/Vol] 86 mg/dL Normal 55-199 [facility] Comment on above: Performed By: #### 2 [id number] #### [facility] [address] [place] [address] Potassium [Moles/Vol] 4.2 mmol/L Normal 3.5-5.3 [facility] Comment on above: Performed By: #### 2 [id number] #### [facility] [address] [place] [address] Sodium [Moles/Vol] 137 mmol/L Normal 135-145 [facility] Comment on above: Performed By: #### 2 [id number] #### [facility] [address] [place] [address] Urea nitrogen [Mass/Vol] 20 mg/dL Normal 5-21 [facility] Comment on above: Performed By: #### 2 [id number] #### [facility] [address] [place] [address] Urea nitrogen/Creatinine [Mass ratio] 22 No Units High 10-20 [facility] Comment on above: Performed By: #### 2 [id number] #### [facility] [address] [place] [address] CBC w/ Auto Diffon 4 Basophils/100 WBC (Bld) 0.4 % Normal 0.0-2.0 [facility] Comment on above: Performed By: #### 2 [id number] #### [facility] [address] [place] [address] Basophils/Leukocytes Auto (Bld) [Pure # fraction] 0.0 E9/L Normal 0.0-0.2 [facility] Comment on above: Performed By: #### 2 [id number] #### [facility] [address] [place] [address] Eosinophils (Bld) [#/Vol] 0.0 E9/L Normal 0.0-0.5 [facility] Comment on above: Performed By: #### 2 [id number] #### [facility] [address] [place] [address] Eosinophils/100 WBC (Bld) 0.7 % Normal 0.0-8.0 [facility] Comment on above: Performed By: #### 2 [id number] #### [facility] [address] [place] [address] Erythrocyte distribution width (RBC) [Ratio] 12.7 % Normal 10.9-14.2 [facility] Comment on above: Performed By: #### 2 [id number] #### [facility] [address] [place] [address] Hematocrit (Bld) [Volume fraction] 41.2 % Normal 34.0-46.0 [facility] Comment on above: Performed By: #### 2 [id number] #### [facility] [address] [place] [address] Hemoglobin (Bld) [Mass/Vol] 13.9 g/dL Normal 12.0-16.0 [facility] Comment on above: Performed By: #### 2 [id number] #### [facility] [address] [place] [address] Lymphocytes (Bld) [#/Vol] 1.6 E9/L Normal 1.0-4.0 [facility] Comment on above: Performed By: #### 2 [id number] #### [facility] [address] [place] [address] Lymphocytes/100 WBC (Bld) 22.8 % Normal 14.0-50.0 [facility] Comment on above: Performed By: #### 2 [id number] #### [facility] [address] [place] [address] MCH (RBC) [Entitic mass] 30.7 pg Normal 27.0-34.0 [facility] Comment on above: Performed By: #### 2 [id number] #### [facility] [address] [place] [address] MCHC (RBC) [Mass/Vol] 33.8 g/dL Normal 31.4-36.0 [facility] Comment on above: Performed By: #### 2 [id number] #### [facility] [address] [place] [address] MCV (RBC) [Entitic vol] 90.8 fL Normal 80.0-100.0 [facility] Comment on above: Performed By: #### 2 [id number] #### [facility] [address] [place] [address] Monocytes (Bld) [#/Vol] 0.4 E9/L Normal 0.2-1.0 [facility] Comment on above: Performed By: #### 2 [id number] #### [facility] [address] [place] [address] Neutrophils (Bld) [#/Vol] 5.0 E9/L Normal 2.0-7.5 [facility] Comment on above: Performed By: #### 2 [id number] #### [facility] [address] [place] [id number] Neutrophils/100 WBC (Bld) 70.3 % Normal 36.0-75.0 [facility] Comment on above: Performed By: #### 2 [id number] #### [facility] [address] [place] [id number] Platelet mean volume (Bld) [Entitic vol] 8.6 fL Normal 6.4-10.8 [facility] Comment on above: Performed By: #### 2 [id number] #### [facility] [address] [place] [address] Platelets (Bld) [#/Vol] 299.0 E9/L Normal 150.0-500.0 [facility] Comment on above: Performed By: #### 2 [id number] #### [facility] [address] [place] [address] RBC (Bld) [#/Vol] 4.5 E12/L Normal 4.3-5.9 [facility] Comment on above: Performed By: #### 2 [id number] #### [facility] [address] [place] [address] WBC corrected for nucl RBC Auto (Bld) [#/Vol] 7.1 E9/L Normal 4.0-11.0 [facility] Comment on above: Performed By: #### 2 [id number] #### [facility] [address] [place] [address] CHEMISTRYOrdered By: SYSTEM SYSTEM on 05-13-2024 Anion [...] for Treatmenton 05-01 Consent for Treatment [id number] DB#[id number] Normal [facility] Office/Clini c Noteon 05-13-2024 Family [...] significant abnormalities. A DEXA scan obtained from [place] revealed the presence of osteoporosis. Her fracture [...] aids in arterial relaxation. 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 Normal [facility] Comment on above: Result Comment: Elec tronically Signed By: Vilma John\.reg\Date and Time Signed: 05/13/24 17:15 EDT\.br\Electronically Co-Signed [...] 05-13 TSH Qn 2.00 m[IU]/L Normal 0.34-5.60 [facility] Comment on above: Performed By: #### 1 [id number] #### [facility] [address] [place] [address] eGFRon 05-13-2024 eGFR 67 mL/min/1.73 m2 Normal >=59 [facility] Comment on above: Order Comment: Order added by Discern Expert. Performed By: #### 1 [id number] #### [facility] [address] [place] [address] Ambulatory Visit Summaryon 0 05-12-2024 Ambulatory Visit Summary KERMIT ROSEN :1950 Visit Date:05/12/2024 Ambulatory Visit Instructions Your Diagnosis Pneumonia Fatigue Chronic sinusitis with recurrent bronchitis Varicose veins of calf Otitis media of left ear Bronchitis, not specified as acute or chronic Your Care Team Attending Physician - Vilma John Primary Care Physician - Vilma John This Is Your Medications List [facility] Prescription (spacer) Non-Formulary Medication (NAC Detox Regulators) [...] sertraline (sertraline 50 mg Tab) thyroid desiccated (Hurlock Thyroid 30 mg Tab) valsartan (valsartan 160 [...] 11:20 AM EDT With: Vilma John Where: [facility] Invalid Interpretation Code [address], [place] [address]- \.br\ You Need to Complete the Following\.br\ YOSELIN w/Reflex if POS, Blood, Routine collect, 05/12/24, Order for future visit, Lab Collect, Chronic sinusitis with recurrent bronchitis [facility] Patient Educationon 05-12-20 Patient Education Cardiovascular Varicose [...] these instructions at home: Medicines ? Take gmhm-qrc-jeczfph and prescription medicines only as told by [...] ? Y (more content not included)... Normal [facility] Ambulatory Visit Summaryon 0 05-06-2024 Ambulatory Visit Summary BETYKERMIT Allen Shaw :1950 Visit Date:05/06/2024 Ambulatory Visit Instructions Your Diagnosis Pneumonia, Pneumonia BMI 23.0-23.9, adult Your Care Team Attending Physician - ZHOU FONTANEZ Primary Care Physician - Vilma John This Is Your Medications List Misc Prescription (spacer) Non-Formulary Medication (NAC Detox [...] sertraline (sertraline 50 mg Tab) thyroid desiccated (Hurlock Thyroid 30 mg Tab) valsartan (valsartan 160 [...] 2:40 PM EDT With: Vilma John Where: [facility] Invalid Interpretation Code [address], [facility] [place] [address]- \.br\ Friday 1:00 PM EDT \.br\ With:\.br\ Where: [facility] Family Medicine Office/Clini c Noteon 05-06-2024 Family [...] did offer her pulmonary rehab or a wire hanger referral, but she is not yet interested. [...] day(s), # 7 tab(s), Refills(s) 0, Pharmacy: [facility], 154, cm, 05/06/24 15:09:00 EDT, [...] 0.25 mg= 1 tab(s), Oral, Daily, PRN Hurlock Thyroid 30 mg Tab, 30 mg= 1 [...] K2 zinc (more content not included)... Normal [facility] Comment on above: Result Comment: Elec tronically [...] keep secretion (more content not included)... Normal [facility] Comment on above: Result Comment: Elec tronically Signed By: Vilma John\.br\Date and Time Signed: 04/16/24 05:17 EDT\.br\Electronically Co-Signed By: Floridalma Soliman\.br\Date and Time Co-Signed: 04/14/24 12:24 EDT Ambulatory Visit Summaryon 0 04-14-2024 Ambulatory Visit Summary KERMIT ROSEN :1950 Visit Date:04/14/2024 Ambulatory Visit Instructions Your [...] sertraline (sertraline 50 mg Tab) thyroid desiccated (Hurlock Thyroid 30 mg Tab) valsartan (valsartan 160 [...] 11:20 AM EDT With: Vilma John Where: [facility] Normal [address], [place] [address]- \.br\ Medications\.br\ What How Much When Why Instructions\.br\ New brompheniramine/ dextromethorphan/ PSE (Bromfed DM oral syrup) 5 Milliliter By Mouth 4 times a day as needed for for cough and congestion Bronchitis Flu-like symptoms Pickup at [facility] 1985\.br\ New methylPREDNISolone (Medrol 4 mg Tab) 1 Packets By Mouth As Directed Bronchitis Flu-like symptoms Duration: 6 Days as directed on package labeling Pickup at [facility] 1985\.br\ Unchanged albuterol (Ventolin HFA 90 mcg/ [...] questions or concerns \.br\ Unchanged thyroid desiccated (Hurlock Thyroid 30 mg Tab) 1 Tablets By [...] if questions or concerns \.br\ Pharmacy Information\.br\ [facility]: [address] [place], [place] [address] [phone]\.br\ \.br\ What How Much When Comments\.br\ Stop [...] for choosing us for your care.\.br\ \.br\ [facility] Patient Educationon 04-14-20 Patient Education Infectious Disease [...] to help relieve symptoms, such as: ? Tqnk-nrg-jtwniez cold medicines. ? Cough suppressants. Coughing is [...] other clear broths. General instructions ? Take kmme-jkg-ubirdkg and prescription medicines only as told by [...] and water are not available, use hand technical publications manager. ? Avoid touching your mouth, face, eyes, [...] Get help (more content not included)... Normal [facility] Provider Letteron 04-14-2024 Provider Letter April 14, 2024 [address] [place] [address] : 1950 To Whom It May Concern, Please excuse above patient from work. Date of Illness: From: 04/12/2024 To: 04/06/2024 May Return to Work On: 04/19/2024 Restrictions: None Comments: None Sincerely, [address], [place] [address] Normal [facility] XR Shoulder Complete Lefton 03-12-2024 XR Shoulder [...] mGy = na DAP = na Normal [facility] Consent for Treatmenton 03-01 Consent for Treatment [id number] B4#1.00TIFF Normal [facility] Family Medicine Office/Clini c Noteon 02-09-2024 Family Medicine Office/Clinic Note Chief Complaint Discuss labs, MRI, and Thyroid medicaiton [facility] Staff Reason for Visit: Patient here to discuss labs, thyroid medication, and MRI results Labs Done: February 03, 2024 Health Maintenance: Breast Cancer Screening Due History of Present Illness Kermit Rosen 74-year-old female who would like to discuss her laboratory results, thyroid medications, and MRI results. Cardiac health. 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 Hypothyroidism. She is currently taking Hurlock Thyroid 30 mg, which seems to be effective. She believes that iodine significantly benefits her thyroid function; however, she is experiencing hair loss, which she attributes to the use of generic medication. She was transitioned to the generic version at [facility]. She prefers the branded version. She expresses [...] topical analgesic cream she acquired from an Noe man, which provides pain relief when applied [...] emergency care (more content not included)... Normal [facility] Comment on above: Result Comment: Elec tronically [...] This Is Your Medications List thyroid desiccated (Hurlock Thyroid 30 mg Tab) Contact prescribing physician [...] 11:20 AM EDT With: Vilma John Where: [facility] Normal [address], [place] [address]- \.br\ Medications\.br\ What How Much When Why Instructions\.br\ Changed thyroid desiccated (Hurlock Thyroid 30 mg Tab) 1 Tablets By Mouth Every day Hypothyroidism no Generic substitutions please - Pickup at [facility]\.br\ Unchanged albuterol (Ventolin HFA 90 [...] if questions or concerns \.br\ Pharmacy Information\.br\ [facility]: [address] [place] [id number] [phone]\.br\ Allergies\.br\ Citalopram Hydrobromide (Unknown)\.br\ propranolol (hives)\.br\ diclofenac [...] for choosing us for your care.\.br\ \.br\ [facility] Patient Educationon 02-06-20 Patient Education Endocrinology Hypothyroidism [...] Follow these instructions at home: ? Take lpjp-hlm-mvenjoy and prescription medicines only as told by [...] provider. Document Revised: 11/19/2022 Document Reviewed: 11/19/2022 [employer] Patient Education ? 2022 [employer]. Mental and Behavioral Health Major Depressive Disorder, [...] can i (more content not included)... Normal [facility] CRPon 02-03-2024 CRP [Mass/Vol] mg/L Normal <=1.9 [facility] Comment on above: Performed By: #### 2 [id number], 0882343, 5984887, [id number] ####[facility] [address] [place] [address] Consent for Treatmenton Consent for Treatment [id number] 9E#1.00TIFF Normal [facility] Free T4on 02-03-2024 Free T4 [Mass/Vol] 0.72 ng/dL Normal 0.58-1.64 [facility] Comment on above: Performed By: #### 2 726395, 6139328, 5261307, [id number] #### [facility] [address] [place] [address] Sed Rate Automatedon 024 ESR (Bld) [Velocity] 10 mm/h Normal 0-34 [facility] Comment on above: Performed By: #### 2 659820, 5640306, 5334659, [id number] ####[facility] [address] [place] [address] Vit B12on 02-03-2024 Cobalamin (Vitamin B12) [Mass/Vol] 318 pg/mL Normal 50-1500 [facility] Comment on above: Performed By: #### 2 716408, 2393207, 7662764, [id number] ####[facility] [address] [place] [address] MRI Brain w/ + w/o Contrasto n [...] Mcallister FINAL REPORT Dictated: 01/23/2024 8:07 am Delbert RAY, Orville Holley Signed (Electronic Signature): 01/23/2024 8:07 am Signed by: Orville Mandujano MD, V. Transcribed by: EL Technologist: SHAKIRA Technical Comments [employer] Contrast amount in ml's: 6 Normal [facility] Consent for Treatmenton 01-02 Consent for Treatment [id number] 9B#1.00TIFF Normal [facility] MRA Neck w/o Contraston 01-02 MRA Neck w/o Contrast Exam Date/Time: 01/21/2024 11:54 EST Reason for Exam: Transient ischemic attack (TIA);Other (please specify) Report IMPRESSION: No evidence for significant stenosis. EXAMINATION: MRA Neck w/o Contrast HISTORY: Headaches, migraines. Possible TIA. TECHNIQUE: Routine MRA of the neck without contrast, with 3-D and 2-D sipx-qz-kkjjpb images. COMPARISON: None RESULT: MRA NECK: Some [...] EL Technologist: DEYSI Technical Comments None Normal [facility] MRI Spine Cervical w/o Contr aramis 01-22-2024 MRI Spine Cervical w/o Contrast Exam Date/Time: 01/21/2024 11:55 EST Reason for Exam: Myelopathy, chronic, cervical spine;Other (please specify) Report [facility] [phone] IMPRESSION: Multilevel degenerative changes cervical spine as [...] EL Technologist: DEYSI Technical Comments None Normal [facility] RAD - MRI Screening Formon 0 01-22-2024 RAD - MRI Screening Form [id number] 711#1.00TIFF Normal [facility] CHEMISTRYOrdered By: SYSTEM SYSTEM on 01-21-2024 Creatinine [Mass/Vol] 0.7 mg/dL Normal 0.5 - 1.3 mg/dL Remisol Chem eGFR 91 mL/min/1.73 m2 Normal >=59mL/min/1.73 m2 Remisol Chem Consent for Treatmenton 02-2 1-2024 Consent for Treatment [id number] 24#1.00TIFF Normal [facility] Creatinineon 01-21-2024 Creatinine [Mass/Vol] 0.7 mg/dL Normal 0.5-1.3 [facility] Comment on above: Performed By: #### 2 [id number], [id number] #### [facility] [address] [place] [address] Physician Orderon 01-21-2024 Physician Order [id number] 162#1.00TIFF Normal [facility] RAD - MRI Screening Formon 0 01-21-2024 RAD - MRI Screening Form [id number] 846#1.00TIFF Normal [facility] eGFRon 01-21-2024 eGFR 91 mL/min/1.73 m2 Normal >=59 [facility] Comment on above: Order Comment: Order added by Discern Expert. Performed By: #### 2 [id number], [id number] #### [facility] [address] [place] [address] Insurance Correspondenceon 0 01-16-2024 Insurance Correspondence [id number] 93#1.00TIFF Normal [facility] Family Medicine Office/Clini c Noteon 01-15-2024 Family [...] She does follow with Dr. Locke with [facility], she does have history of coronary artery [...] sed ra (more content not included)... Normal [facility] Comment on above: Result Comment: Elec tronically [...] these instructions at home: Medicines ? Take wnsu-ebp-xdtvbge and prescription medicines only as told by [...] a condition that needs treatment. ? Take keso-gbu-ujlrbkh and prescription medicines only as told by [...] provider. Document Revised: 12/06/2019 Document Reviewed: 12/06/2019 ElseFix[employer] Patient Education ? 2022 [employer]alaDo. Gastroenterology Vitamin B12 Deficiency Vitamin B12 deficiency [...] are used (more content not included)... Normal [facility] ISTAT XRay CREon 11-04-2023 ISTAT GFR > 60.0 Normal [facility] Comment on above: Result Comment: PERF ORMED BY: [place] [address] PATHOLOGIST POLICE CAPTAIN SENIOR BLAKE SMART M.D. Performed By: #### I SCRE #### [address] MR breast BI wo/w con CADon 11-04-2023 MR breast BI wo/w con CAD [facility] [place] [address] [place] [address] MRI Report Signed Patient: Kermit Rosen MR#: [id number] : 1950 Acct:[id number] Age/Sex: 73 / F ADM Date: 11/04/23 Loc: Room: Type: [facility] Attending Dr: Ryley Marinelli Copies to: Ryley Marinelli DO Ordering Provider: Ryley Marinelli DO Date of Service: 11/04/23 MR/MR breast BI wo/w con CAD: Z85.3 BILATERAL BREAST MRI WITHOUT AND WITH INTRAVENOUS CONTRAST CLINICAL HISTORY: History of right-sided breast cancer status post lumpectomy in 2020. COMPARISON: Bilateral breast ultrasound performed at [facility] 12/26/2022 TECHNIQUE: Multisequence, multiplanar imaging of the breasts were obtained before and after the use of IV contrast. All imaged data was reviewed using the [employer] system. The postcontrast images were subtracted and [...] Arellano Jr., D.O.11/04/2023 1:37 PM Dictation Location: [place] [address] Transcribed By: [facility] 11/04/23 1337 Dictated By: Edgar Arellano Jr, DO 11/04/23 1327 Signed By: 11/04/23 1337 Normal [facility] No Panel InformationOrdered By: Ryley Marinelli on 11-04-2023 Bedside Estimated GFR (eGFR) > 60.0 [facility] Whole blood creatinine measu rementOrdered By: Ryley Marinelli on 11-04-2023 Creatinine [Mass/Vol] 0.8 mg/dL Normal 0.6-1.3 [facility] Comment on above: ER/ESD physician is notified/shown all ISTAT results.Critical values may be confirmed by laboratory testing ifdeemed necessary by ER attending doctor. Result Comment: ER/E SD physician is notified/shown all ISTAT results. Critical values may be confirmed by laboratory testing if deemed necessary by ER attending doctor. Performed By: #### I SCRE #### [facility] [address] [place] [address] Ambulatory Visit Summaryon 1 12-30-2022 Ambulatory Visit Summary BETYKERMIT Allen Shaw :1950 Visit Date:10/30/2023 Ambulatory Visit Instructions Your Diagnosis Dysuria Mild recurrent major depression Benign essential hypertension Izzy's thyroiditis Vitamin D deficiency Vaginal bleeding problems Nasal septal ulcer BMI 24.0-24.9, adult Tests Performed Urnls Dip Stick Auto w/o Microscopy POC 73810 Your Care Team Attending Physician - Vilma John Primary Care Physician - Vilma John This Is Your Medications List [facility] Prescription (spacer) albuterol (Ventolin HFA 90 mcg/inh [...] sertraline (sertraline 50 mg Tab) thyroid desiccated (Hurlock Thyroid 30 mg Tab) valsartan (valsartan 160 [...] Nasal septal ulcer Refills: 1 Pickup at [facility] Changed albuterol (Ventolin HFA 90 [...] By Mouth Every day Unchanged thyroid desiccated (Hurlock Thyroid 30 mg Tab) 1 Tablets By Mouth Every day Unchanged valsartan (valsartan 160 mg Tab) 90 EA, TAKE 1 TABLET BY MOUTH ONCE DAILY Unchanged zinc acetate (zinc acetate 50 mg oral capsule) 1 Capsules By Mouth Every day on an empty stomach 1 hour before or 2 hours after eating Pharmacy Information [facility]: [address] [place], [place] [id number] [phone] What How Much When Why Comments Stop Taking fluconazole (Diflucan 100 mg Tab) 1 Tablets By Mouth Every day Sinusitis take once if needed and may repeat if needed Test Results Urnls Dip Stick Auto w/o Microscopy POC 06419 (10/30/2023) Bilirubin Urine Dipstick - Negative Blood Urine Dipstick - Negative Glucose Urine Dipstick - Negative Ketones Urine Dipstick - Negative Leukocytes Urine Dipstick - Negative Nitrite Urine Dipstick - Negative Protein Urine Dipstick - Negative Specific [place] Urine Dipstick - 1.010 Urine Appearance Urine [...] of b (more content not included)... Normal [facility] Family Medicine Office/Clini c Noteon 10-30-2023 Family [...] up for HTN CAD 40%- goes to [facility]- Dr Burgos current medication: metoprolol, valsartan How [...] Urnls Dip Stick Auto w/o Microscopy POC 74138 2. Mild recurrent major depression (F33.0: Major [...] hypertension) Medication management per Dr. Cottrell with [facility], BP is stable proved from last visit [...] will need rechecked prior next visit. Continue Hurlock Thyroid 30 mg once daily Refill provided for 90 days F/u PRN Ordered: TSH With T4fr Reflex 5. Vitamin D deficiency (E55.9: Vitamin D deficiency, uns (more content not included)... Normal [facility] Comment on above: Result Comment: Elec tronically [...] may include: ? Your personality traits. ? Conrad or conditioned behaviors or thoughts or feelings [...] In the (more content not included)... Normal [facility] DHEAon 10-23-2023 DHEA [Mass/Vol] 103 ng/dL Invalid Interpretation Code 402 [facility] Comment on above: Result Comment: This test was developed and its performance characteristics determined by [employer]. It has not been cleared or approved by the Food and Drug Administration. Performed at: [facility] [address] [place], [place] [id number] MD Zack David Performed By: #### 2 506009, 3852104, 30902752, 9973790, 65307587, 18890929, 3186456, 1901991, 7465946 ####[facility] [address] [place] [address] Estrogens Totalon 10-23-2023 Estrogen [Mass/Vol] 64 pg/mL Invalid Interpretation Code [facility] Comment on above: Result Comment: Prep ubertal < 40 Female Cycle: 1-10 Days 16 - 328 11-20 Days 34 - 501 21-30 Days 48 - 350 Post-Menopausal Performed at: [facility] [address] [place], [place] [id number] MD Zack David Performed By: #### 2 454784, 1889059, 55289350, 5384663, 26342438, 29130742, 0220902, 8720093, 2515687 ####[facility] [address] [place] [address] Testost Totalon 10-23-2023 Testosterone [Mass/Vol] 9 ng/dL Invalid Interpretation Code [facility] Comment on above: Result Comment: Perf ormed at: [facility] [id number] PhD Ramila Ackerman Performed By: #### 2 623804, 3238144, 47296864, 9684267, 62899296, 42284318, 8867634, 5215881, 3302201 ####[facility] [address] [place] [address] Progesteroneon 10-20-2023 Progesterone [Mass/Vol] 1.40 ng/mL Invalid Interpretation Code [facility] Comment on above: Result Comment: REFE RENCE RANGE Males 0.14-2.06 ng/mL Non- Females Follicular 0.10-0.60 ng/mL Luteal 3.00-17.5 ng/mL Midluteal 3.30-18.6 ng/mL Post-Menopausal 0.10-0.40 ng/mL First Trimester 8.30-66.5 ng/mL Second Trimester 18.9-66.1 ng/mL Third Trimester 35.8-312.4 ng/mL Performed By: #### 2 015445, 1282841, 46381284, 2366800, 39505047, 02966041, 8940289, 1314697, 7387275 ####[facility] [address] [place] [address] Auto Diffon 10-18-2023 Basophils/100 WBC (Bld) 0.6 % Normal 0.0-2.0 [facility] Comment on above: Order Comment: Order Added by Discern Expert. Performed By: #### 2 283784, 3770349, 63229587, 4995392, 58966244, 23711967, 4420848, 1534897, 1402699 ####[facility] [address] [place] [address] Basophils/Leukocytes Auto (Bld) [Pure # fraction] 0.0 E9/L Normal 0.0-0.2 [facility] Comment on above: Order Comment: Order Added by Discern Expert. Performed By: #### 2 278488, 0101527, 81853201, 2183238, 79740309, 09861402, 7800189, 7028902, 0387125 ####[facility] [address] [place] [address] Eosinophils/100 WBC (Bld) 1.3 % Normal 0.0-8.0 [facility] Comment on above: Order Comment: Order Added by Discern Expert. Performed By: #### 2 706342, 1769440, 97720095, 9436739, 39926471, 34672366, 4381165, 5750517, 3964622 ####[facility] [address] [place] [address] Eosinophils/Leukocyt es Auto (Bld) [Pure # fraction] 0.0 E9/L Normal 0.0-0.5 [facility] Comment on above: Order Comment: Order Added by Amos Expert. Performed By: #### 2 089166, 2548332, 48040705, 6255927, 53889248, 75098853, 8032627, 3627709, 9845877 ####[facility] [address] [place] [address] Lymphocytes/100 WBC (Bld) 45.5 % Normal 14.0-50.0 [facility] Comment on above: Order Comment: Order Added by Discern Expert. Performed By: #### 2 048274, 4647874, 71649001, 2027910, 20320526, 15430221, 7805653, 3403841, 1351651 ####[facility] [address] [place] [address] Lymphocytes/Leukocyt es Auto (Bld) [Pure # fraction] 1.6 E9/L Normal 1.0-4.0 [facility] Comment on above: Order Comment: Order Added by Amos Expert. Performed By: #### 2 479193, 9845228, 64894877, 6364347, 09983871, 43671015, 3126128, 0283770, 2686689 ####[address] [address] Monocytes/100 WBC (Bld) 7.9 % Normal 4.0-14.0 [facility] Comment on above: Order Comment: Order Added by Amos Expert. Performed By: #### 2 964332, 9764073, 15120041, 8396058, 66551842, 28628218, 0186407, 6973337, 3817080 ####[facility] [address] [place] [address] Monocytes/Leukocytes Auto (Bld) [Pure # fraction] 0.3 E9/L Normal 0.2-1.0 [facility] Comment on above: Order Comment: Order Added by Amos Expert. Performed By: #### 2 772832, 5701785, 50095537, 1732078, 08041700, 13134954, 1282786, 1568868, 7432912 ####[facility] [address] [place] [address] Neutrophils/100 WBC (Bld) 44.7 % Normal 36.0-75.0 [facility] Comment on above: Order Comment: Order Added by Discern Expert. Performed By: #### 2 256440, 4969200, 41691499, 9292003, 23004287, 05576455, 6298167, 2026763, 2819223 ####[place] [address] [place] [address] Neutrophils/Leukocyt es Auto (Bld) [Pure # fraction] 1.6 E9/L Low 2.0-7.5 [facility] Comment on above: Order Comment: Order Added by Discern Expert. Performed By: #### 2 403116, 8201261, 60747340, 9106154, 54332217, 17477865, 6926428, 9943147, 1057192 ####[address] [address] CBC w/ Auto Diffon 3 Erythrocyte distribution width (RBC) [Ratio] 13.1 % Normal 10.9-14.2 [facility] Comment on above: Performed By: #### 2 130243, 1653612, 25959727, 2090406, 37541583, 30864832, 2100951, 3980013, 6989530 ####[address] [place] [address] Hematocrit (Bld) [Volume fraction] 43.4 % Normal 34.0-46.0 [facility] Comment on above: Performed By: #### 2 768367, 8078069, 76171566, 2073320, 24765127, 06013169, 6453128, 2808433, 5798668 ####[address] [place] [address] Hemoglobin (Bld) [Mass/Vol] 14.7 g/dL Normal 12.0-16.0 [facility] Comment on above: Performed By: #### 2 316380, 4843791, 45509774, 6019912, 76007101, 89604154, 8867267, 5401771, 9886583 ####[address] [place] [address] MCH (RBC) [Entitic mass] 30.5 pg Normal 27.0-34.0 [facility] Comment on above: Performed By: #### 2 920248, 3425672, 23017619, 9784542, 94853555, 99688204, 7965842, 2031433, 6279449 ####[address] [address] MCHC (RBC) [Mass/Vol] 33.8 g/dL Normal 31.4-36.0 [facility] Comment on above: Performed By: #### 2 799305, 6393928, 46924730, 6607949, 06925306, 70818064, 6127533, 5237263, 5493961 ####[address] [address] MCV (RBC) [Entitic vol] 90.2 fL Normal 80.0-100.0 [facility] Comment on above: Performed By: #### 2 428433, 6761886, 34787937, 5918088, 42394883, 13115247, 9422057, 1842702, 9228079 ####[address] [address] Platelet mean volume (Bld) [Entitic vol] 9.8 fL Normal 6.4-10.8 [facility] Comment on above: Performed By: #### 2 952020, 8308875, 82175120, 6465620, 37061018, 94885232, 8772980, 9198381, 1138751 ####[address] [address] Platelets (Bld) [#/Vol] 222.0 E9/L Normal 150.0-500.0 [facility] Comment on above: Performed By: #### 2 359567, 2646119, 60495043, 5976953, 10507643, 96642502, 2669266, 9527367, 7834494 ####[facility] [address] [place] [address] RBC (Bld) [#/Vol] 4.8 E12/L Normal 4.3-5.9 [facility] Comment on above: Performed By: #### 2 767366, 1605412, 43363838, 0963060, 76922053, 32803810, 1538964, 9753088, 8687915 ####[facility] [address] [place] [address] WBC corrected for nucl RBC Auto (Bld) [#/Vol] 3.6 E9/L Low 4.0-11.0 [facility] Comment on above: Performed By: #### 2 015064, 2608041, 28301896, 2947503, 74152608, 61950566, 9276603, 7866991, 2412251 ####[facility] [address] [place] [address] CHEMISTRYOrdered By: SYSTEM SYSTEM on 10-18-2023 Albumin [Mass/Vol] 3.9 g/dL Normal 3.3 - 5.0 gm/dL [facility]isol Albumin/Globulin [Mass ratio] 1.2 {ratio} Normal [...] mmol/L Normal 101 - 111 mmol/ L FT Remisol Cholesterol [Mass/Vol] 216 mg/dL High 120 [...] rate/Area] 78 mL/min/1.73 m2 Normal >=59mL/min/1.73 m2 [facility] Chem S Comment on above: Interpretive Data: C hronic kidney disease could be indicated at eGFR's of less than 60 mL/min/1.73m2. Kidney failure is indicated at less than 15 mL/min/1.73m2. Globulin (S) [Mass/Vol] 3.4 g/dL Normal 1.4 - 4.0 gm/dL [facility] Glucose [Mass/Vol] 101 mg/dL Normal 55 - 199 mg/dL [facility] Comment on above: Interpretive Data: I f this glucose result represents a fasting glucose, interpretation should refer to the following reference range: 55-99 mg/dL Potassium [Moles/Vol] 4.3 mmol/L Normal 3.5 - 5.3 mmol/L [facility] Protein [Mass/Vol] 7.3 g/dL Normal 6.0 - 7.8 gm/dL [facility] Sodium [Moles/Vol] 140 mmol/L Normal 135 - 145 mmol/L [facility] Triglyceride [Mass/Vol] 83 mg/dL Normal <=149mg/dL [facility] Urea nitrogen [Mass/Vol] 22 mg/dL High 5 - 21 mg/dL [facility] Urea nitrogen/Creatinine [Mass ratio] 28 mg/mg High 10 - 20 [facility] Remisol CMPon 10-18-2023 Albumin [Mass/Vol] 3.9 g/dL Normal 3.3-5.0 [facility] Comment on above: Performed By: #### 2 183513, 7763240, 98669382, 0015041, 69561547, 33110796, 4181873, 5847103, 8128637 ####[facility] [address] [place] [address] Albumin/Globulin (S) [Mass conc ratio] 1.2 Normal 1.1-2.2 [facility] Comment on above: Performed By: #### 2 680140, 1604920, 73097481, 7080291, 19453992, 25617805, 5829568, 1909318, 2138369 ####[facility] [address] [place] [address] ALP [Catalytic activity/Vol] 82 Int._Unit/L Normal 21-98 [facility] Comment on above: Performed By: #### 2 780378, 5068516, 60898852, 7258065, 12549860, 00509474, 3206848, 7266738, 9129042 ####[facility] [address] [place] [address] ALT No additional P-5'-P [Catalytic activity/Vol] 17 Int._Unit/L Normal 6-46 [facility] Comment on above: Performed By: #### 2 508490, 5256896, 41117423, 1177478, 02107509, 36628100, 4299529, 1221236, 7088149 ####[facility] [address] [place] [address] Anion gap [Moles/Vol] 10 mmol/L Normal 6-16 [facility] Comment on above: Performed By: #### 2 615347, 4858237, 27484046, 6262873, 04363891, 97663439, 7906749, 3322681, 0350050 ####[facility] [address] [place] [address] AST [Catalytic activity/Vol] 24 Int._Unit/L Normal 5-43 [facility] Comment on above: Performed By: #### 2 982991, 0279335, 59782165, 0159640, 75814014, 47010563, 5481369, 4577442, 7926128 ####[facility] [address] [place] [address] Bilirubin [Mass/Vol] 0.7 mg/dL Normal 0.0-1.1 [facility] Comment on above: Performed By: #### 2 727240, 5446820, 69504728, 2232168, 24249194, 47620284, 8708560, 8353753, 5296906 ####[address] [place] [address] Calcium [Mass/Vol] 9.4 mg/dL Normal 8.9-11.1 [facility] Comment on above: Performed By: #### 2 708321, 2019503, 36502145, 5222610, 14105784, 20819054, 7461987, 0764097, 7294431 ####[facility] [address] [place] [address] Chloride [Moles/Vol] 108 mmol/L Normal 101-111 [facility] Comment on above: Performed By: #### 2 129986, 4771804, 98718224, 8552200, 99242027, 53069681, 6881914, 6750312, 9888793 ####[facility] [address] [place] [address] CO2 [Moles/Vol] 26 mmol/L Normal 21-31 [facility] Comment on above: Performed By: #### 2 774025, 9468811, 67466789, 2162315, 04437765, 30643133, 3105600, 9503559, 1629225 ####[address] [place] [address] Creatinine [Mass/Vol] 0.8 mg/dL Normal 0.5-1.3 [facility] Comment on above: Performed By: #### 2 926724, 8186775, 13837337, 5626612, 32116686, 80198025, 4570796, 0423498, 3284392 ####[facility] [address] [place] [address] Globulin (S) [Mass/Vol] 3.4 g/dL Normal 1.4-4.0 [facility] Comment on above: Performed By: #### 2 454488, 4265126, 44328388, 9294489, 22082582, 39678117, 3254393, 4972895, 1971162 ####[facility] [address] [place] [address] Glucose [Mass/Vol] 101 mg/dL Normal 55-199 [facility] Comment on above: Result Comment: If t his glucose result represents a fasting glucose, interpretation should refer to the following reference range: 55-99 mg/dL Performed By: #### 2 277962, 9705221, 87792874, 5789586, 17975723, 70194458, 8234235, 5235094, 4206120 ####[facility] [address] [place] [address] Potassium [Moles/Vol] 4.3 mmol/L Normal 3.5-5.3 [facility] Comment on above: Performed By: #### 2 070286, 3668565, 63981193, 4069641, 19408769, 20239802, 4731323, 3693341, 9210411 ####[facility] [address] [place] [address] Protein [Mass/Vol] 7.3 g/dL Normal 6.0-7.8 [facility] Comment on above: Performed By: #### 2 286409, 8732325, 65562479, 4882736, 70442146, 24100703, 1634012, 0601570, 8220028 ####[facility] [address] [place] [address] Sodium [Moles/Vol] 140 mmol/L Normal 135-145 [facility] Comment on above: Performed By: #### 2 527220, 6587025, 07930031, 1557528, 50968905, 55616718, 1729656, 3387241, 6367825 ####[facility] [address] [place] [address] Urea nitrogen [Mass/Vol] 22 mg/dL High 5-21 [facility] Comment on above: Performed By: #### 2 091345, 9196195, 98420954, 6595070, 64083282, 53085337, 1204965, 7454822, 3219220 ####[facility] [address] [place] [address] Urea nitrogen/Creatinine [Mass ratio] 28 No Units High 10-20 [facility] Comment on above: Performed By: #### 2 941302, 3995426, 61604249, 3439131, 53273974, 72349056, 9968752, 2487609, 6442685 ####[facility] [address] [place] [address] Consent for Treatmenton 10-01 Consent for Treatment [id number] C3#1.00TIFF Normal [facility] HEMATOLOGYOrdered By: SYSTEM SYSTEM on 10-18-2023 Basophils/100 [...] - 7.5 E9/L FT HemeAutoSS HEMATOLOGYOrdered By: Opal Castro on 10-18-2023 Erythrocyte distribution width (RBC) [Ratio] 13.1 % Normal 10.9 - 14.2 % FT HemeAutoSS Hematocrit (Bld) [Volume fraction] 43.4 % [...] 222.0 E9/L Normal 150.0 - 500.0 E9/L FT HemeAutoSS RBC (Bld) [#/Vol] 4.8 E12/L Normal 4.3 - 5.9 E12/L FT HemeAutoSS WBC corrected for nucl RBC Auto (Bld) [#/Vol] 3.6 E9/L Low 4.0 - 11.0 E9/L FT HemeAutoSS Lipid Panelon 10-18-2023 Cholesterol [Mass/Vol] 216 mg/dL High 120-200 [facility] Comment on above: Performed By: #### 2 585919, 8616550, 93658272, 6545002, 70246840, 48327256, 0647400, 0841325, 5125627 ####[facility] [address] [place] [address] Cholesterol in HDL [Mass/Vol] 68 mg/dL Invalid Interpretation Code [facility] Comment on above: Result Comment: HDL > or equal to 60 mg/dL: Low cardiovascular risk HDL < 40 mg/dL : High cardiovascular risk Performed By: #### 2 682187, 7333087, 82642851, 2255486, 00469576, 47001746, 7864750, 1246766, 9177004 ####[facility] [address] [place] [address] Cholesterol in LDL [Mass/Vol] 125 mg/dL Normal <=129 [facility] Comment on above: Performed By: #### 2 682319, 5226765, 64724829, 7562684, 60583183, 73478091, 7318559, 4964938, 0709767 ####[facility] [address] [place] [address] Cholesterol in VLDL [Mass/Vol] 17 mg/dL Normal 7-40 [facility] Comment on above: Performed By: #### 2 308291, 7808257, 81234336, 5490375, 50288730, 72415884, 7612109, 7636361, 5990831 ####[facility] [address] [place] [address] Triglyceride [Mass/Vol] 83 mg/dL Normal <=149 [facility] Comment on above: Performed By: #### 2 675379, 8647036, 23569068, 1897216, 06780887, 20564656, 4090828, 2036798, 2663049 ####[facility] [address] [place] [address] eGFRon 10-18-2023 GFR/1.73 sq M.predicted among non-blacks MDRD (S/P/Bld) [Vol rate/Area] 78 mL/min/1.73 m2 Normal >=59 [facility] Comment on above: Order Comment: Order added by Discern Expert. Result Comment: Nurse Orthopedic sarha kidney disease could be indicated at eGFR's of less than 60 mL/min/1.73m2. Kidney failure is indicated at less than 15 mL/min/1.73m2. Performed By: #### 2 474924, 8837145, 31416233, 8187783, 23952793, 60314071, 7343581, 3212079, 0777073 ####[facility] [address] [place] [address] Ambulatory Visit Summaryon 1 Ambulatory Visit Summary [...] tromethorphan/PSE (Bromfed DM oral syrup) thyroid desiccated (Hurlock Thyroid 30 mg Tab) Contact prescribing physician [...] Invalid Interpretation Code Mild recurrent major depression [facility] Medicine Office/Clini c Noteon 09-26-2023 Family Medicine Office/Clinic Note Chief Complaint follow up on bronchitis HPI Staff Patient here today for bronchitis follow up. 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 Mammogram (qyr 45-54, q2yrs 55-85): Lung CA LDCT (55-74 yo + 30 PYH): DEXA (F>65, M>70): not due yet _ OSTEOPORSIS AAA (>65 +100cigs/life or FHx): Specialists: Business Services Coordinator: BHARGAV Dentist: BHARGAV Psychology/psychiat ry: none Cardiology: [place] [facility] Review of Systems PHQ Score Initial Depression [...] hypertension) Medication management per Dr. Cottrell with [facility], BP is stable proved from last visit [...] Panel Mo (more content not included)... Normal [facility] Comment on above: Result Comment: Elec tronically Signed By: Vilma John\.br\Date and Time Signed: 09/26/23 10:45 EDT Medication Consenton 023 Medication Consent [id number] 7#1.00TIFF [facility] Medication Consent [id number] 54#1.00TIFF [facility] Patient Educationon 09-26-20 23 Patient Education Forms [...] Reviewed: 08/01/2022 Elsevier Patient Education ? 2022 [employer] Mental and Behavioral Health Major Depressive [...] may include: ? Your personality traits. ? Conrad or conditioned behaviors or thoughts or feelings [...] low-level depressio (more content not included)... Normal [facility] Patient Educationon 09-16-20 Patient Education Cardiovascular Hypertension, Adult High blood [...] oz glass (more content not included)... Normal [facility] Ambulatory Visit Summaryon 1 Ambulatory Visit Summary BETYMIKEY AllenDARVIN Squires :1950 Visit Date:09/04/2023 Ambulatory Visit Instructions Your Diagnosis Bronchitis Sinusitis Benign essential hypertension BMI 23.0-23.9, adult Your Care Team Attending Physician - Vilma John Primary Care Physician - Rj AVILES, Camryn Murry This Is Your Medications List [facility] Prescription (spacer) albuterol (Albuterol (Eqv-Ventolin HFA) 90 [...] sertraline (sertraline 50 mg Tab) thyroid desiccated (Hurlock Thyroid 30 mg Tab) valsartan (valsartan 160 [...] 11:00 AM EDT With: Camryn Alves Where: [facility] Primary Care Normal [facility] Family Medicine Office/Clini c Noteon 09-04-2023 Family [...] Present Illness Patient of Shannon De La Rosa, KSENIA 73 yr old female with a PMHx [...] wheezing: oPred (more content not included)... Normal [facility] Comment on above: Result Comment: Elec tronically Signed By: Vilma John\.br\Date and Time Signed: 09/04/23 10:33 EDT Patient [...] 1? oz glass (more content not included)... [facility] Consent for Treatmenton 08-02 Consent for Treatment [id number] D1#1.00CD:127 [facility] XR Chest 2 Viewson XR Chest [...] in mGy = na DAP = na [facility] Family Medicine Office/Clini c Noteon 08-19-2023 [...] used to see Malinda Rubio CNP at [place] office. Overall, pt reports feeling ongoing cough. [...] oncology. Pt has MRI approved, will call [facility] to get appt scheduled. Patient is hypothyroid Izzy's thyroiditis Compliant with medication. Is taking on an empty stomach. Current medication dose: Hurlock Thyroid 30mg qd Pt denies sx of memory loss, increased weight, menorrhagia, skin/hair dryness, mental slowness, increased tiredness, intolerance to cold, raised BP, energy loss, depression, slow reflexes or constipation at this time. Osteoporosis?not currently medications. Last DEXA done at [place]. Will be starting Calcium and Vit D [...] Mouth: mucous membranes pink, moist and intact. Ulen posterior oropharynx, no palatal inflammation, uvula midline, [...] Sertraline 50 (more content not included)... Normal [facility] Comment on above: Result Comment: Elec tronically Signed By: Rj AVILES, Camryn Murry\.br\Date and Time Signed: 08/19/23 11:47 EDT Pre-Certification Formon Pre-Certification Form [id number] 5E#1.00CD:127 Normal [facility] Dexa Scanson 08-12-2023 Dexa Scans [id number] C#1.00CD:127 Normal [facility] Office Visit (Cardiology)on 07-15-2023 Follow-up visit Diagnoses/Problems Assessed Coronary artery disease, non-occlusive (414.00) (I25.10) 40% LAD, cardiac catheterization 2018 Essential hypertension (401.9) (I10) Mitral valve insufficiency, unspecified etiology (424.0) (I34.0) mild by echocardiogram 2018 Dyslipidemia (272.4) (E78.5) Hypothyroidism (244.9) (E03.9) Body [...] a smoker Tobacco Use Screening; Status:Complete; Done: [id number] Patient Instructions Please bring all medicines, vitamins, [...] LAD History of Complete colonoscopy Managed By: Ismael LAY Brayden A History of Dilation and curettage History of Lumpectomy left History of Tonsillectomy History of Tubal ligation Past Medical History Problems History of chest pain (V13.89) (Z87.898) Resolved Date: 16 Jul 2022 Current Meds Medication NameInstruction ALPRAZolam 0.25 MG Oral TabletTAKE 1 TABLET DAILY NEEDED. Hurlock Thyroid 30 MG Oral TabletTAKE 1 TABLET [...] 8:24:19 AM atorvastatin Adverse Reaction; Recorded By: Sena Barr; 10/08/2021 8:24:19 AM CeleXA TABS Adverse Reaction; Recorded By: Sena Barr; 10/08/2021 8:24:19 AM Intolerance doxycycline Recorded By: Sena Barr; 10/08/2021 (more content not included)... Normal [facility] Tobacco Screening.on 023 Adult depression screening assessment No [facility] [address] DO Work Phone: Fall risk assessment a) No falls within the last year [facility] [address] DO Work Phone: Tobacco use status [facility]PHS b) No [facility] Heart-Sandu roger 250 DO Work Phone: Alanine aminotransferase [En zymatic activity/volume] in Serum or PlasmaOrdered By: Jay Jay Mariscal on 07-14-2023 ALT [Catalytic activity/Vol] 13 U/L 7-52 [facility] Aspartate aminotransferase [ Enzymatic activity/volume] in Serum or PlasmaOrdered By: Jay Jay Mariscal on 07-14-2023 AST [Catalytic activity/Vol] 19 U/L 13-39 [facility] Basophils Auto (Bld) [#/Vol] Ordered By: Jay Jay Mariscal on 07-14-2023 Basophils (Bld) [#/Vol] 0.0 10*3/uL 0.0-0.2 [facility] Basophils/100 WBC Auto (Bld) Ordered By: Jay Jay Mariscal on 07-14-2023 Basophils/100 WBC (Bld) 0.9 % . [facility] Calcium [Mass/volume] in Ser um or PlasmaOrdered By: Jay Jay Mariscal on 07-14-2023 Calcium [Mass/Vol] 9.4 mg/dL 8.6-10.3 [facility] Carbon dioxide, total [Moles /volume] in Serum or PlasmaOrdered By: Jay Jay Mariscal on 07-14-2023 CO2 [Moles/Vol] 28.8 mmol/L 21.0-31.0 [facility] Chloride [Moles/volume] in S rina or PlasmaOrdered By: Jay Jay Mariscal on 07-14-2023 Chloride [Moles/Vol] 108 mmol/L 98-107 [facility] Cholesterol [Mass/volume] in Serum or PlasmaOrdered By: Jay Jay Mariscal on 07-14-2023 Cholesterol [Mass/Vol] 220 mg/dL 140-200 [facility] Comment on above: Chol less than 200 m g/dl low riskChol 201-239 mg/dl borderline riskChol 240 mg/dl and greater high risk Cholesterol in LDL Calc [Mas s/Vol]Ordered By: Jay Jay Mariscal on 07-14-2023 Cholesterol in LDL [Mass/Vol] 135 mg/dL 0-100 [facility] Comment on above: LDL ATP III CLASSIFI CATIONLDL less than 100 mg/dL OptimalLDL 100-129 mg/dL Near or above optimalLDL 130-159 mg/dL Borderline highLDL 160-189 mg/dL HighLDL greater than 189 mg/dL Very high Cholesterol in VLDL Calc [Ma ss/Vol]Ordered By: Jay Jay Mariscal on 07-14-2023 Cholesterol in VLDL [Mass/Vol] 30 mg/dL [facility] Creatinine [Mass/volume] in Serum or PlasmaOrdered By: Jay Jay Mariscal on 07-14-2023 Creatinine [Mass/Vol] 0.73 mg/dL 0.60-1.20 [facility] Eosinophils Auto (Bld) [#/Vo l]Ordered By: Jay Jay Mariscal on 07-14-2023 Eosinophils (Bld) [#/Vol] 0.1 10*3/uL 0.0-0.45 [facility] Eosinophils/100 WBC Auto (Bl d)Ordered By: Jay Jay Mariscal on 07-14-2023 Eosinophils/100 WBC (Bld) 2.0 % . [facility] Erythrocyte distribution wid th Auto (RBC) [Ratio]Ordered By: Jay Jay Mariscal on 07-14-2023 Erythrocyte distribution width (RBC) [Ratio] 13.0 % 11.9-15.3 [facility] Glucose [Mass/volume] in Ser um or PlasmaOrdered By: Jay Jay Mariscal on 07-14-2023 Glucose [Mass/Vol] 85 mg/dL 70-100 [facility] Comment on above: ADA recommended refe rence rangeRandom Glucose Reference Range is dependent on time and content of last meal. Glucose of more than 200 mg/dL in a nonstressed, ambulatory subject supports the diagnosis of Diabetes Mellitus. Hematocrit Auto (Bld) [Volum e fraction]Ordered By: Jay Jay Mariscal on 07-14-2023 Hematocrit (Bld) [Volume fraction] 40.5 % 34.0-46.4 [facility] Hemoglobin [Mass/volume] in BloodOrdered By: Jay Jay Mariscal on 07-14-2023 Hemoglobin (Bld) [Mass/Vol] 13.6 g/dL 11.8-15.4 [facility] Laboratory - Chemistry and C hemistry - challengeon 07-14-2023 Cholesterol [Mass/Vol] 220\S\220 above high threshold 140-200 [facility] Projektino ro[address] 250 DO Work Phone: Comment on above: Chol less than 200 m g/dl low risk Chol 201-239 mg/dl borderline risk Chol 240 mg/dl and greater high risk Cholesterol in LDL [Mass/Vol] 135\S\135 above high threshold 0-100 [facility] [address] DO Work Phone: Comment on above: [...] RBC Auto (Bld) [#/Vol] 4.3 10*3/uL 3.8-11.6 [facility] Lymphocytes Auto (Bld) [#/Vo l]Ordered By: Jay Jay Mariscal on 07-14-2023 Lymphocytes (Bld) [#/Vol] 1.5 10*3/uL 1.00-4.8 [facility] Lymphocytes/100 WBC Auto (Bl d)Ordered By: Jay Jay Mariscal on 07-14-2023 Lymphocytes/100 WBC (Bld) 34.3 % . [facility] MCH Auto (RBC) [Entitic mass ]Ordered By: Jay Jay Mariscal on 07-14-2023 MCH (RBC) [Entitic mass] 30.5 pg 24.7-34.3 [facility] MCHC Auto (RBC) [Mass/Vol]Or dered By: Jay Jay Mariscal on 07-14-2023 MCHC (RBC) [Mass/Vol] 33.6 g/dL 32.0-35.0 [facility] MCV Auto (RBC) [Entitic vol] Ordered By: Jay Jay Mariscal on 07-14-2023 MCV (RBC) [Entitic vol] 90.8 fL 80-100 [facility] Monocytes Auto (Bld) [#/Vol] Ordered By: Jay Jay Mariscal on 07-14-2023 Monocytes (Bld) [#/Vol] 0.3 10*3/uL 0.0-0.8 [facility] Monocytes/100 WBC Auto (Bld) Ordered By: Jay Jay Mariscal on 07-14-2023 Monocytes/100 WBC (Bld) 7.2 % . [facility] Neutrophils Auto (Bld) [#/Vo l]Ordered By: Jay Jay Mariscal on 07-14-2023 Neutrophils (Bld) [#/Vol] 2.4 10*3/uL 1.8-7.7 [facility] Neutrophils/100 WBC Auto (Bl d)Ordered By: Jay Jay Mariscal on 07-14-2023 Neutrophils/100 WBC (Bld) 55.6 % . [facility] No Panel InformationOrdered By: Jay Jay Mariscal on 07-14-2023 Estimated GFR (CKD-EPI) > 60.0 mL/Min [facility] Pharmacy Creatinine Clearance (Chem N/A [facility] [place] No Panel Informationon 07-14 55.6\S\55.6 Normal . [facility] ROBAUTO 250 DO Work Phone: 9.3\S\9.3 Normal 6.3-10.7 [facility] [employer] 250 DO Work Phone: [phone] 189\S\189 Normal 150-450 [facility] ROBAUTO 250 DO Work Phone: [phone] 13.0\S\13.0 Normal 11.9-15.3 [facility] [employer]u roger 250 DO Work Phone: [phone] 33.6\S\33.6 Normal 32.0-35.0 [facility] [employer]u roger 250 DO Work Phone: [phone] 30.5\S\30.5 Normal 24.7-34.3 [facility] ROBAUTO 250 DO Work Phone: 2.4\S\2.4 Normal 1.8-7.7 [facility]-Sandu roger 250 DO Work Phone: [phone] 0.1\S\0.1 Normal 0.0-0.45 [facility] Heart-Sandu roger 250 DO Work Phone: [phone] 0.9\S\0.9 Normal . [facility] Heart-Sandu roger 250 DO Work Phone: [phone] 2.0\S\2.0 Normal . [facility] Heart-Sandu roger 250 DO Work Phone: [phone] 7.2\S\7.2 Normal . [facility] Heart-Sandu roger 250 DO Work Phone: [phone] 34.3\S\34.3 Normal . [facility] Heart-Sandu roger 250 DO Work Phone: [phone] 0.0\S\0.0 Normal 0.0-0.2 [facility] Heart-Eron roger 250 DO Work Phone: [phone] Comment on above: PERFORMED BY:[facility] [place], [place] [id number] MEDICAL DIRECTORBLAKE SMART M.D. 0.3\S\0.3 Normal 0.0-0.8 -[facility] Heart-Tishu roger 250 DO Work Phone: [phone] 1.5\S\1.5 Normal 1.00-4.8 [facility] Heart-Tishu roger 250 DO Work Phone: [phone] 90.8\S\90.8 Normal 80-100 [facility] Heart-Sandu roger 250 DO Work Phone: [phone] 40.5\S\40.5 Normal 34.0-46.4 -[facility] Heart-Sandu roger 250 DO Work Phone: [phone] 13.6\S\13.6 Normal 11.8-15.4 [facility] Heart-Sandu roger 250 DO Work Phone: [phone] 4.46\S\4.46 Normal 3.60-5.00 [facility] Heart-Tishu roger 250 DO Work Phone: [phone] 4.3\S\4.3 Normal 3.8-11.6 [facility] Demi roger 250 DO Work Phone: > [phone] Normal [facility] Demi roger 250 DO Work Phone: [phone] 8.8\S\8.8 Normal 6.0-15.0 [facility] Demi roger 250 DO Work Phone: [phone] 9.4\S\9.4 Normal 8.6-10.3 [facility] MarleyAthleteTraxEron roger 250 DO Work Phone: 28.8\S\28.8 Normal 21.0-31.0 [facility] Demi roger 250 DO Work Phone: 108\S\108 above high threshold 98-107 [facility] Demi roger 250 DO Work Phone: 4.6\S\4.6 Normal 3.5-5.1 [facility] Demi roger 250 DO Work Phone: 141\S\141 Normal 136-145 [facility] Demi duran 250 DO Work Phone: 0.73\S\0.73 Normal 0.60-1.20 [facility] Demi roger 250 DO Work Phone: 16\S\16 Normal 7-25 [facility] Demi roger 250 DO Work Phone: 85\S\85 Normal 70-100 [facility] En[employer] SoftwareHelen roger 250 DO Work Phone: Comment on above: Random Glucose Refer ence Range is dependent on time and content of last meal. Glucose of more than 200 mg/dL in a nonstressed, ambulatory subject supports the diagnosis of Diabetes Mellitus. ADA recommended reference range 19\S\19 Normal 13-39 -[facility] Demi roger 250 DO Work Phone: 13\S\13 Normal 7-52 [facility] Heart-LaunchLab roger 250 DO Work Phone: 4.1\S\4.1 Normal <5.0 [facility] roger 250 DO Work Phone: Comment on above: PERFORMED BY:[facility]HAVenkatAMBREENSOU[place], [place] [id number] MEDICAL DIRECTORBLAKE SMART M.D. 30\S\30 Normal [facility]AthleteTraxSt[facility] roger 250 DO Work Phone: 153\S\153 above high threshold 0-149 [facility] 250 DO Work Phone: Comment on above: TRIG ATP III CLASSIF ICATION TRIG less than 150 mg/dL Normal TRIG 150-199 mg/dL Borderline high TRIG 200-500 mg/dL High TRIG greater than 500 mg/dL Very high Standard traceable to the Center for Disease Conrtrol and Prevention (CDC) test method. 54\S\54 Normal 23-92 [facility] roger 250 DO Work Phone: Comment on above: HDL CHOL ATP-III CLA SSIFICATION Cardiovascular Risk HDL > or equal to 60 mg/dL LOW HDL < 40 mg/dL HIGH Nucleated erythrocytes [Pres ence] in Blood by Automated countOrdered By: Jay Jay Mariscal on 07-14-2023 Nucleated RBC Auto Ql (Bld) 0.1 /100{WBC} 0-0.5 [facility] Platelet mean volume Auto (B ld) [Entitic vol]Ordered By: Jay Jay Mariscal on 07-14-2023 Platelet mean volume (Bld) [Entitic vol] 9.3 fL 6.3-10.7 [facility] Platelets Auto (Bld) [#/Vol] Ordered By: Jay Jay Mariscal on 07-14-2023 Platelets (Bld) [#/Vol] 189 10*3/uL 150-450 [facility] Potassium [Moles/volume] in Serum or PlasmaOrdered By: Jay Jay Mariscal on 07-14-2023 Potassium [Moles/Vol] 4.6 mmol/L 3.5-5.1 [facility] RBC Auto (Bld) [#/Vol]Ordere d By: Jay Jay Mariscal on 07-14-2023 RBC (Bld) [#/Vol] 4.46 10*6/uL 3.60-5.00 [facility] Serum or plasma anion gap de terminationOrdered By: Jay Jay Mariscal on 07-14-2023 Anion gap [Moles/Vol] 8.8 mmol/L 6.0-15.0 [facility] Serum or plasma high density lipoprotein (HDL) cholesterol measurementOrdered By: Jay Jay Mariscal on 07-14-2023 Cholesterol in HDL [Mass/Vol] 54 mg/dL 23- [facility] Comment on above: HDL CHOL ATP-III CLA SSIFICATION Cardiovascular RiskHDL > or equal to 60 mg/dL LOWHDL < 40 mg/dL HIGH Serum or plasma total choles terol/high density lipoprotein (HDL) cholesterol mass ratOrdered By: Jay Jay Mariscal on 07-14-2023 Cholesterol.total/Ch olesterol in HDL [Mass ratio] 4.1 {ratio} <5.0 [facility] Sodium [Moles/volume] in Ser um or PlasmaOrdered By: Jay Jay Mariscal on 07-14-2023 Sodium [Moles/Vol] 141 mmol/L 136-145 [facility] Triglyceride [Mass/volume] i n Serum or PlasmaOrdered By: Jay Jay Mariscal on 07-14-2023 Triglyceride [Mass/Vol] 153 mg/dL 0-149 [facility] Comment on above: TRIG ATP III CLASSIF ICATIONTRIG less than 150 mg/dL NormalTRIG 150-199 mg/dL Borderline highTRIG 200-500 mg/dL High TRIG greater than 500 mg/dL Very highStandard traceable to the Center for Disease Conrtrol and Prevention (CDC) test method. Urea nitrogen [Mass/volume] in Serum or PlasmaOrdered By: Jay Jay Mariscal on 07-14-2023 Urea nitrogen [Mass/Vol] 16 mg/dL 7-25 [facility] WBC Auto (Bld) [#/Vol]Ordere d By: Jay Jay Mariscal on 07-14-2023 WBC (Bld) [#/Vol] 4.3 10*3/uL 3.8-11.6 [facility] Pre-Certification Formon Pre-Certification Form [phone] [id number]:127 Normal [facility] Patient Educationon 06-29-20 23 Patient Education Cardiovascular [...] oz glass (more content not included)... Normal [facility] PAP ACOG PANEL 2: 30 to 65on 04-10-2023 . . Normal [facility] Comment on above: Performed By: #### [id number] #### [facility] [address] [place] [address] Dr. Mal Cuenca Age Gdln ACOG Testing Comment [facility] Comment on above: Result Comment: <21 or >65 or no age provided Performed By: #### 4 [id number] #### [facility] [address] [address] [address] Mal Cuenca DIAGNOSIS: Comment [facility] Comment on above: Result Comment: UNSA TISFACTORY FOR EVALUATION. Performed By: #### 4 [id number] #### [facility] [address] [place] [address] Dr. Mal Cuenca Methodology: Comment [facility] Comment on above: Result Comment: This liquid based ThinPrep(R) pap test was screened with the use of an image guided system. Performed By: #### 4 [id number] #### [facility] [address] [address] [address] Mal Cuenca Note: Comment [facility] Comment on above: Result Comment: The Pap smear is a screening test designed to aid in the detection of premalignant and malignant conditions of the uterine cervix. It is not a diagnostic procedure and should not be used as the sole means of detecting cervical cancer. Both false-positive and false-negative reports do occur. . Performed By: #### 4 [id number] #### [facility] [address] [address] [address] Mal Cuenca Performed by: Comment Normal [facility] Comment on above: Result Comment: Odalis Cook, Cured Meat Packing Supervisor (ASCP) Performed By: #### 4 [id number] #### [facility] [address] [address] [address] Mal Cuenca QC reviewed by: Comment Normal [facility] Comment on above: Result Comment: Marcelo Webb, Supervisory Cured Meat Packing Supervisor (ASCP) Performed By: #### 4 [id number] #### [facility] [address] [address] [address] Mal Cuenca Recommendation: Comment Normal [facility] Comment on above: Result Comment: Sugg est follow up as clinically appropriate. Performed By: #### 4 [id number] #### [facility] [address] [place] [address] Dr. Mal Cuenca Specimen adequacy: Comment Normal [facility] Comment on above: Result Comment: Spec imen processed and examined, but unsatisfactory for evaluation of epithelial abnormality because of excessive lubricant. Performed By: #### 4 [id number] #### [facility] [address] [place] [address] Dr. Mal Cuenca US PELVIS AND TRANSVAGon [...] by: IDALIA GUEVARA Date: 2023-03-05 14:11 Normal [facility] CHEMISTRYOrdered By: SYSTEM SYSTEM on 2023 25-hydroxyvitamin D3 [Mass/Vol] 45.7 ng/mL Normal 30.0 - 100.0 ng/mL [facility] Remisol US BREAST ANDREW LIMITEDon 01-0 US BREAST ANDREW LIMITED Patient: KERMIT ROSEN Exam Date: 12/06/2022 : 1950 Gender:F Ordering : DR DANNY SANTILLAN . Admission #: [id number] Family : Order #: [id number] CLICK HERE TO VIEW EXAM RADIOLOGY REPORT [...] Guevara M.D. on 12/06/2022 at 14:43 Normal [facility] CHEMISTRYOrdered By: SYSTEM SYSTEM on 09-12-2022 25-hydroxyvitamin [...] 17 [iU]/d Normal 6 - 46 Int._Unit/L [facility] Anion gap [Moles/Vol] 9 mmol/L Normal 6 - 16 mEq/L [facility] AST [Catalytic activity/Vol] 21 [iU]/d Normal 5 - 43 Int._Unit/L [facility] Calcium [Mass/Vol] 9.5 mg/dL Normal 8.9 - 11.1 mg/dL [facility] Chloride [Moles/Vol] 103 mmol/L Normal 101 - 111 mmol/ L [facility] Cholesterol in HDL [Mass/Vol] 55 mg/dL Invalid Interpretation Code [facility] Cholesterol in LDL [Mass/Vol] 129 mg/dL Normal <=129mg/dL [facility] Cholesterol in VLDL [Mass/Vol] 31 mg/dL Normal 7 - 40 mg/dL [facility] Creatinine [Mass/Vol] 0.8 mg/dL Normal 0.5 - 1.3 mg/dL [facility] GFR/1.73 sq M.predicted among blacks MDRD (S/P/Bld) [Vol rate/Area] mL/min/1.73 m2 Normal >=59mL/min/1.73 m2 [facility] Chem S GFR/1.73 sq M.predicted among non-blacks MDRD (S/P/Bld) [Vol rate/Area] mL/min/1.73 m2 Normal >=59mL/min/1.73 m2 [facility] Chem S Glucose [Mass/Vol] 101 mg/dL Normal 55 - 199 mg/dL [facility] Potassium [Moles/Vol] 4.1 mmol/L Normal 3.5 - 5.3 mmol/L [facility] Sodium [Moles/Vol] 138 mmol/L Normal 135 - 145 mmol/L [facility] Triglyceride [Mass/Vol] 157 mg/dL High <=149mg/dL [facility] Urea nitrogen [Mass/Vol] 19 mg/dL Normal 5 - 21 mg/dL [facility] Urea nitrogen/Creatinine [Mass ratio] 24 mg/mg High 10 - 20 [facility] HEMATOLOGYOrdered By: Opal Castro on 07-12-2022 Hemoglobin (Bld) [Mass/Vol] 14.3 g/dL Normal 12.0 - 16.0 gm/dL [facility] HemeAutoSS MCH (RBC) [Entitic mass] 31.4 pg Normal 27.0 - 34.0 pg [facility] HemeAutoSS MCHC (RBC) [Mass/Vol] 34.8 g/dL Normal 31.4 - 36.0 gm/dL [facility] HemeAutoSS MCV (RBC) [Entitic vol] 90.3 fL Normal 80.0 - 100.0 fL [facility] HemeAutoSS Platelets (Bld) [#/Vol] 207.0 E9/L Normal 150.0 - 500.0 E9/L [facility] HemeAutoSS RBC (Bld) [#/Vol] 4.6 E12/L Normal 4.3 - 5.9 E12/L [facility] HemeAutoSS WBC corrected for nucl RBC Auto (Bld) [#/Vol] 3.7 E9/L Low 4.0 - 11.0 E9/L [facility] HemeAutoSS Laboratory - Chemistry and C hemistry - challengeon 07-12-2022 Cholesterol [Mass/Vol] 129 mg/dL Normal <=129 [facility] YaData 600 DO Work Phone: Cholesterol in LDL [Mass/Vol] 31 mg/dL Normal 7-40 [facility] [employer] 600 DO Work Phone: Laboratory - Chemistry [...] 41.1 % Normal 34.0 - 46.0 % [facility] HemeAutoSS Platelet mean volume (Bld) [Entitic vol] 8.9 fL Normal 6.4 - 10.8 fL [facility] HemeAutoSS No Panel Informationon 07-12 207.0 {E9/L} Normal 150.0-500.0 [facility] [employer] 600 DO Work Phone: 90.3 fL Normal 80.0-100.0 [facility] Casey ladd 600 DO Work Phone: 34.8 {gm/dL} Normal 31.4-36.0 [facility] Casey lk 600 DO Work Phone: [phone] 31.4 pg Normal 27.0-34.0 [facility] 600 DO Work Phone: [phone] 14.3 {gm/dL} Normal 12.0-16.0 [facility] 600 DO Work Phone: [phone] 4.6 {E12/L} Normal 4.3-5.9 [facility] 600 DO Work Phone: [phone] 3.7 {E9/L} below low threshold 4.0-11.0 [facility] 600 DO Work Phone: 9 {mEq/L} Normal 6-16 [facility] Casey ladd 600 DO Work Phone: 103 mmol/L Normal 101-111 [facility] 600 DO Work Phone: 4.1 mmol/L Normal 3.5-5.3 [facility] 600 DO Work Phone: 138 mmol/L Normal 135-145 [facility] 600 DO Work Phone: 9.5 mg/dL Normal 8.9-11.1 [facility] 600 DO Work Phone: 24 {No_Units} above high threshold 10-20 [facility] 600 DO Work Phone: 0.8 mg/dL Normal 0.5-1.3 [facility] 600 DO Work Phone: 19 mg/dL Normal 5-21 [facility] 600 DO Work Phone: 101 mg/dL Normal 55-199 [facility] julee 600 DO Work Phone: Comment on above: If this glucose resu lt represents a fasting glucose, interpretation should refer to the following reference range: 55-99 mg/dL >60 Normal >=59 [facility] julee 600 DO Work Phone: Comment on above: eGFR is race adjuste d. AA=. Chronic kidney disea se could be indicated at eGFR's of less than 60 mL/min/1.73m2. Kidney failure is indicated at less than 15 mL/min/1.73m2. 17 {Int._Unit/L} Normal 6-46 [facility] julee 600 DO Work Phone: 21 {Int._Unit/L} Normal 5-43 [facility] 600 DO Work Phone: 157 mg/dL above high threshold <=149 [facility] 600 DO Work Phone: 55 mg/dL [facility] 600 DO Work Phone: Comment on above: HDL > or equal to 60 mg/dL: Low cardiovascular riskHDL < 40 mg/dL : High cardiovascular risk PAP ACOG PANEL 2: 30 to 65on 04-23-2022 . . [facility] Comment on above: Performed By: #### [id number] #### [facility] [address] [address] [address] Mal Cuenca Age Gdln ACOG Testing Comment [facility] Comment on above: Result Comment: <21 or >65 or no age provided Performed By: #### 4 [id number] #### [facility] [address] [address] [address] Mal Cuenca DIAGNOSIS: Comment [facility] Comment on above: Result Comment: NEGA TIVE FOR INTRAEPITHELIAL LESION OR MALIGNANCY. Performed By: #### 4 [id number] #### [facility] [address] [address] [address] Mal Cuenca Methodology: Comment [facility] Comment on above: Result Comment: This liquid based ThinPrep(R) pap test was screened with the use of an image guided system. Performed By: #### 4 [id number] #### [facility] [address] [place] [address] Dr. Mal Cuenca Note: Comment Normal [facility] Comment on above: Result Comment: The Pap smear is a screening test designed to aid in the detection of premalignant and malignant conditions of the uterine cervix. It is not a diagnostic procedure and should not be used as the sole means of detecting cervical cancer. Both false-positive and false-negative reports do occur. . Performed By: #### 4 [id number] #### [facility] [address] [place] [address] Dr. Mal Cuenca Performed by: Comment Normal [facility] Comment on above: Result Comment: Nora Canales, Cured Meat Packing Supervisor (ASCP) Performed By: #### 4 [id number] #### [facility] [address] [place] [address] Dr. Mal Cuenca Specimen adequacy: Comment Normal [facility] Comment on above: Result Comment: Sati sfactory for evaluation. Endocervical and/or squamous metaplastic cells (endocervical component) are present. Performed By: #### 4 [id number] #### [facility] [address] [place] [address] Dr. Mal Cuenca Falls Risk Screeningon 10-11 Fall risk assessment b) One or more falls in the last year [facility] [employer] DO Work Phone: Tobacco use status [facility] b) No [facility] ROBAUTO 250 DO Work Phone: CNPNon 04-13-2021 CNPN Telephone (CHRIS) ---- KERMIT ROSEN ([id number]) 1950 F Date Time Provider Department 04/13/21 [...] Take 20 mg by mouth twice abdirahman* WEB MASTER THYROID 30 MG TABLET Take 30 mg [...] by GOGO EVANS MA on 04/13/21 Normal [facility] YOSELIN by IFA w/Reflexon 2020 YOSELIN Pattern Negative Normal [facility] Comment on above: Performed By: #### C CP, CRP, WSR, RF, ANAIFR #### [facility] exsulin [facility] [address] YOSELIN Titer Negative Normal Negative [facility] Comment on above: Result Comment: Norm al range : negative at <1:80 serum dilution. Performed By: #### C CP, CRP, WSR, RF, ANAIFR #### [facility] exsulin [address] [address] Nuclear Ab IF (S) [Titer] Negative Normal Negative [facility] Comment on above: Result Comment: Norm al range : negative at <1:80 serum dilution. Approximately 6% of patients with connective tissue diseases with low positive EIA values are negative by IFA. Recommend follow-up with specific antinuclear antibodies if clinically indicated. Test performed using Indirect Fluorescence Immunoassay technology (IFA) using HEp-2 cells. Performed By: #### C CP, CRP, WSR, RF, ANAIFR #### [facility] exsulin [address] [id number] C-Reactive Proteinon 021 CRP [Mass/Vol] mg/L Normal <0.9 [facility] Comment on above: Performed By: #### C CP, CRP, WSR, RF, ANAIFR #### [facility] [address] [place], [place] [address] CCP Antibody, IgGon 04-09-20 21 CCP Antibody, IgG <15 Normal <20 [facility] [place] Comment on above: Result Comment: < 20 units: Negative 20-39 units: Weak Positive 40-59 units: Moderate Positive > 60 units: Strong Positive The following results were obtained with the [employer] QUANTA Lite CCP3 IgG MATT. Anti-CCP values obtained with different manufacturers' assay methods may not be used interchangeably. The magnitude of the reported IgG levels cannot be correlated to an endpoint titer. Performed By: #### C CP, CRP, WSR, RF, ANAIFR #### [facility] [address] [place], [place] [address] CNOVon 04-09-2021 CNOV Office Visit (CHRIS) ---- KERMIT ROSEN ([id number]) 1950 F Date Time Provider Department 04/09/21 2:00 PM NICO NEWELL During your visit today, we recorded the following information about you: Pulse Blood pressure Weight Height 56/minute 146/86 55.3 kg 1.549 m Nico Newell MD 04/09/2021 5:09 PM Signed NEW CONSULT:RHEUMATOLOG Y SERVICE SERVICE DATE: 04/09/2021 SERVICE TIME: 2:09 PM REASON FOR CONSULT: +YOSELIN REQUESTING PHYSICIAN: Cristin Roblero CNP [address] [facility] [address] PRIMARY CARE PHYSICIAN: Cristin Roblero CNP, EQUIPMENT OPERATOR Patient's Name: Kermit Rosen 1950 [address] [facility] [address] Accompanied by: self This consult was requested for my medical opinion regarding the rheumatologic evaluation of the patient's +YOSELIN problems, and my final recommendations will be communicated to the requesting health care provider by way of the shared medical record for internal providers or letter via the [employer] for external providers. 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 Normal [facility] Rheumatoid Factoron 05-10-20 21 Rheumatoid Factor <10 Normal <16 [facility] [place] Comment on above: Performed By: #### C CP, CRP, WSR, RF, ANAIFR #### [facility] [address] [place], [place] [address] Sed Rate Westergrenon 2020 Sed Rate Westergren 2 mm/hr Normal 0-20 [facility] Comment on above: Performed By: #### C CP, CRP, WSR, RF, ANAIFR #### [facility] [address] [place], [place] [address] XR HAND 3V PA/LAT/OBL BILon 04-09-2021 XR [...] IMPRESSION: Mild interphalangeal degenerative changes and osteopenia. Double Cutter: VANNESA Transcribe Date/Time: Apr 09 2021 6:14P Dictated by : MARCELLO VALLEJO MD This examination was interpreted and the report reviewed and electronically signed by: MARCELLO VALLEJO MD on Apr 09 2021 6:15PM EST [id number] ACN Normal [facility] XR HAND GENERAL 3V PA/LAT/OB L BILATon 04-09-2021 [facility] CREATININEon 11-08-2019 Creatinine [Mass/Vol] 0.78 mg/dL Normal 0.50 - 1.05 [facility] Comment on above: Performed By: #### C REAT #### [facility] [address] [place] [address] Creatinine [Mass/Vol] mg/dL Normal >60 [facility] Comment on above: Performed By: #### C REAT #### [address] [address] Result Comment: CALC ULATIONS OF ESTIMATED GFR ARE PERFORMED USING THE MDRD STUDY EQUATION FOR THE IDMS-TRACEABLE CREATININE METHODS. CLIN CHEM 2007;53:766-72 ELECTROLYTE PANELon 11-08-20 19 Anion gap [Moles/Vol] 13 mmol/L Normal 10 - 20 [facility] Comment on above: Performed By: #### E LECT #### [address] [address] Chloride [Moles/Vol] 106 mmol/L Normal 98 - 107 [facility] Comment on above: Performed By: #### E LECT #### [address] [address] HCO3 (Bld) [Moles/Vol] 26 mmol/L Normal 21 - 32 [facility] Comment on above: Performed By: #### E LECT #### [address] [address] Potassium [Moles/Vol] 4.0 mmol/L Normal 3.5 - 5.3 [facility] Comment on above: Performed By: #### E LECT #### [address] [address] Sodium [Moles/Vol] 141 mmol/L Normal 136 - 145 [facility] Comment on above: Performed By: #### E LECT #### [address] [address] UREA NITROGENon 11-08-2019 Urea nitrogen [Mass/Vol] 20 mg/dL Normal 6 - 23 [facility] Comment on above: Performed By: #### U KUSUM #### [address] [address] OVER READ - NCon 09-08-2017 OVER READ - NC DATE OF EXAM: Sep 08 2017 11:01AMCLINICAL HISTORY/ Name: KERMIT ROSENSTBAOY:OVER READ - [place]; 09/08/2017 11:01 amINDICATION:score. Shortness of breath with exertion. Hypertension and hypercholesterolemi a. Family history of heart disease. Screening.COMPARISO N:None. 5ORDERING CLINICIAN:CRIS GIORDANO:Con tiguous unenhanced axial images were obtained through the [...] nodule.This interpretation, provided by the radiologists of [facility], excludes evaluation of the cardiovascular system, which iscovered in a separate report issued by the ordering cardiologists. The radiologists of [facility] have no responsibilityfor evaluating the structures of the cardiovascular system.*Follow-up recommendations according to the Fleischner Society Criteria (Ying Tamayo, Guidelines for management of small pulmonary nodules detected on CT scans: A statement from the [facility] 237: [id number].):<=4 mm:Low Risk Patient (Minimal or no smoking [...] 24 months, or PET and/or biopsy.. Normal [facility] Healthcare Vital Signs Date Time Vital Sign Value Performing Clinician Lanii scott 10-15-2024 10:04-0500 Blood Pressure Location Vilma Mcallister [facility] 10-15-2024 10:04-0500 Body temperature 100.4 [degF] Vilma Mcallister [facility] 10-15-2024 10:04-0500 Diastolic blood pressure 62 mm[Hg] Vilma Mcallister [facility] 10-15-2024 10:04-0500 Heart rate 83 /min Vilma Mcallister [facility] 10-15-2024 10:04-0500 Respiratory rate 16 /min Vilma Mcallister [facility] 10-15-2024 10:04-0500 SaO2% (BldA) [Mass fraction] 93 % Vilma Mcallister [facility] 10-15-2024 10:04-0500 Systolic blood pressure 118 mm[Hg] Vilma Mcallister [facility] 10-11-2024 13:32-0500 Body height 154.9 cm Jay Jay Mariscal MD Work Phone: [facility] 10-11-2024 13:32-0500 Body mass index (BMI) [Ratio] 23.13 kg/m2 Jay Jay Mariscal MD Work Phone: [facility] 10-11-2024 13:32-0500 Body weight 55.52 kg Jay Jay Mariscal MD Work Phone: [facility] 10-11-2024 13:32-0500 Diastolic blood pressure 68 mm[Hg] Jay Jay Mariscal MD Work Phone: [facility] 10-11-2024 13:32-0500 Heart rate 76 /min Jay Jay Mariscal MD Work Phone: [facility] 10-11-2024 13:32-0500 Systolic blood pressure 116 mm[Hg] Jay Jay Mariscal MD Work Phone: [facility] 07-09-2024 09:38-0400 Blood Pressure Location Vilma Mcallister [facility] 07-09-2024 09:38-0400 Body temperature 97.52 [degF] Vilma Mcallister [facility] 07-09-2024 09:38-0400 Diastolic blood pressure 84 mm[Hg] Vilma Mcallister [facility] 07-09-2024 09:38-0400 Heart rate 65 /min Vilma Mcallister [facility] 07-09-2024 09:38-0400 Respiratory rate 20 /min Vilma Mcallister [facility] 07-09-2024 09:38-0400 SaO2% (BldA) [Mass fraction] 100 % Vilma Mcallister [facility] 07-09-2024 09:38-0400 Systolic blood pressure 132 mm[Hg] Vilma Mcallister [facility] 05-26-2024 11:55-0400 Blood Pressure Location Vilma Mcallister [facility] 05-26-2024 11:55-0400 Body temperature 98.06 [degF] Vilma Mcallister [facility] 05-26-2024 11:55-0400 Diastolic blood pressure 64 mm[Hg] Vilma Mcallister [facility] 05-26-2024 11:55-0400 Heart rate 62 /min Vilma Mcallister [facility] 05-26-2024 11:55-0400 Respiratory rate 18 /min Vilma Mcallister [facility] 05-26-2024 11:55-0400 SaO2% (BldA) [Mass fraction] 96 % Vilma Mcallister [facility] 05-26-2024 11:55-0400 Systolic blood pressure 132 mm[Hg] Vilma Mcallister [facility] 05-26-2024 11:07-0400 Blood Pressure Location Vilma Mcallister [facility] 05-26-2024 11:07-0400 Diastolic blood pressure 64 mm[Hg] Vilma Mcallister [facility] 05-26-2024 11:07-0400 Heart rate 62 /min Vilma Mcallister [facility] 05-26-2024 11:07-0400 Respiratory rate 16 /min Vilma Mcallister [facility] 05-26-2024 11:07-0400 SaO2% (BldA) [Mass fraction] 96 % Vilma Mcallister [facility] 05-26-2024 11:07-0400 Systolic blood pressure 132 mm[Hg] Vilma Mcallister [facility] 05-12-2024 14:51-0400 Blood Pressure Location Vilma Mcallister [facility] 05-12-2024 14:51-0400 Body temperature 98.06 [degF] Vilma Mcallister [facility] 05-12-2024 14:51-0400 Diastolic blood pressure 78 mm[Hg] Vilma Mcallister [facility] 05-12-2024 14:51-0400 Heart rate 65 /min Vilma Mcallister [facility] 05-12-2024 14:51-0400 Respiratory rate 18 /min Vilmadarrin Mcallister [facility] 05-12-2024 14:51-0400 SaO2% (BldA) [Mass fraction] 98 % Vilma Mcallister [facility] 05-12-2024 14:51-0400 Systolic blood pressure 130 mm[Hg] Vilma Mcallister [facility] 05-06-2024 15:09-0400 Blood Pressure Location SY HICKS [...] Systolic blood pressure 126 mm[Hg] SY HICKS [facility] [place] 04-14-2024 10:30-0400 Diastolic blood pressure 80 mm[Hg] Vilma Mcallister [facility] 04-14-2024 10:30-0400 Mean blood pressure 93 mm[Hg] Vilma Mcallister [facility] 04-14-2024 10:30-0400 Systolic blood pressure 120 mm[Hg] Vilma Mcallister [facility] 04-14-2024 09:37-0400 Blood Pressure Location Vilma Mcallister [facility] 04-14-2024 09:37-0400 Body temperature 97.7 [degF] Vilma Mcallister [facility] 04-14-2024 09:37-0400 Diastolic blood pressure 68 mm[Hg] Vilma Mcallister [facility] 04-14-2024 09:37-0400 Heart rate 60 /min Vilma Mcallister [facility] 04-14-2024 09:37-0400 Respiratory rate 18 /min Vilma Mcallister [facility] 04-14-2024 09:37-0400 SaO2% (BldA) [Mass fraction] 97 % Vilma Mcallister [facility] 04-14-2024 09:37-0400 Systolic blood pressure 140 mm[Hg] Vilma Mcallister [facility] 02-06-2024 10:39-0500 Blood Pressure Location Vilma Mcallister [facility] 02-06-2024 10:39-0500 Body temperature 97.52 [degF] Vilma Mcallister [facility] 02-06-2024 10:39-0500 Diastolic blood pressure 70 mm[Hg] Vilma Mcallister [facility] 02-06-2024 10:39-0500 Heart rate 67 /min Vilma Mcallister [facility] 02-06-2024 10:39-0500 Respiratory rate 18 /min Vilma Mcallister [facility] 02-06-2024 10:39-0500 SaO2% (BldA) [Mass fraction] 98 % Vilma Mcallister [facility] 02-06-2024 10:39-0500 Systolic blood pressure 130 mm[Hg] Vilma Mcallister [facility] 01-15-2024 17:18-0500 Blood Pressure Location Vilma Mcallister [facility] 01-15-2024 17:18-0500 Body temperature 97.88 [degF] Vilma Mcallister [facility] 01-15-2024 17:18-0500 Diastolic blood pressure 80 mm[Hg] Vilma Mcallister [facility] 01-15-2024 17:18-0500 Heart rate 63 /min Vilma Mcallister [facility] 01-15-2024 17:18-0500 SaO2% (BldA) [Mass fraction] 961 % Vilma Mcallister [facility] 01-15-2024 17:18-0500 Systolic blood pressure 138 mm[Hg] Vilma Mcallister [facility] 10-30-2023 09:38-0500 Blood Pressure Location Vilma Mcallister [facility] 10-30-2023 09:38-0500 Diastolic blood pressure 84 mm[Hg] Vilma Mcallister [facility] 10-30-2023 09:38-0500 Heart rate 64 /min Vilma Mcallister [facility] 10-30-2023 09:38-0500 Respiratory rate 18 /min Vilma Mcallister [facility] 10-30-2023 09:38-0500 SaO2% (BldA) [Mass fraction] 98 % Vilma Mcallister [facility] 10-30-2023 09:38-0500 Systolic blood pressure 136 mm[Hg] Vilma Mcallister [facility] 09-26-2023 09:36-0400 Blood Pressure Location Vilma Mcallister [facility] 09-26-2023 09:36-0400 Diastolic blood pressure 86 mm[Hg] Vilma Mcallister [facility] 09-26-2023 09:36-0400 Heart rate 65 /min Vilma Mcallister [facility] 09-26-2023 09:36-0400 SaO2% (BldA) [Mass fraction] 98 % Vilma Mcallister [facility] 09-26-2023 09:36-0400 Systolic blood pressure 120 mm[Hg] Vilma Mcallister [facility] 08-19-2023 11:40-0400 Diastolic blood pressure 78 mm[Hg] Camrynrachel Kwokler [facility] 08-19-2023 11:40-0400 Mean blood pressure 96 mm[Hg] Camryn Missler [facility] 08-19-2023 11:40-0400 Systolic blood pressure 132 mm[Hg] Camrynrachel Kwokler [facility] 08-19-2023 10:58-0400 Blood Pressure Location Camrynrachel Kwokler [facility] 08-19-2023 10:58-0400 Body temperature 97.88 [degF] Camryn Kwokler [facility] 08-19-2023 10:58-0400 Diastolic blood pressure 88 mm[Hg] Camryn Kwokler [facility] 08-19-2023 10:58-0400 Heart rate 71 /min Camryn Kwokler [facility] 08-19-2023 10:58-0400 SaO2% (BldA) [Mass fraction] 95 % Camryn Kwokler [facility] 08-19-2023 10:58-0400 Systolic blood pressure 160 mm[Hg] Camrynrachel Kwokler [facility] 07-15-2023 11:07-0400 Diastolic blood pressure 80 mm[Hg] Camryn G Missler Work Phone: [facility] [employer] 250 DO Work Phone: 07-15-2023 11:07-0400 Systolic blood pressure 170 mm[Hg] Camryn G Missler Work Phone: [facility] [employer] 250 DO Work Phone: 07-15-2023 10:54-0400 Body height 154.94 cm Camryn Kwokler Work Phone: [facility] 250 DO Work Phone: 07-15-2023 10:54-0400 Body mass index (BMI) [Ratio] 24.22 kg/m2 Camryn Marin Missler Work Phone: [facility] 250 DO Work Phone: 07-15-2023 10:54-0400 Body surface area Derived from formula 1.56 m2 Camryn Kwokler Work Phone: [facility] 250 DO Work Phone: 07-15-2023 10:54-0400 Body weight 58.15 kg Camrynrachel Kwokler Work Phone: [facility] 250 DO Work Phone: 07-15-2023 10:54-0400 Diastolic blood pressure 80 mm[Hg] Camryn G Missler Work Phone: [facility] 250 DO Work Phone: 07-15-2023 10:54-0400 Heart rate 60 /min Camrynrachel Kwokler Work Phone: [facility] 250 DO Work Phone: 07-15-2023 10:54-0400 Systolic blood pressure 162 mm[Hg] Camryn G Missler Work Phone: [facility] 250 DO Work Phone: 12-17-2022 11:52-0500 Blood [...] 12-17-2022 11:52-0500 Systolic blood pressure 140 mm[Hg] Malinda Klonk [facility] 09-24-2022 11:59-0400 Blood [...] Diastolic blood pressure 78 mm[Hg] [facility] 09-12-2022 10:36-0400 Mean blood pressure 98 mm[Hg] Malinda Klonk [facility] 09-12-2022 10:36-0400 Systolic blood pressure 138 mm[Hg] Malinda Klonk [facility] 09-12-2022 10:29-0400 Blood Pressure Location Malinda Klonk [facility] 09-12-2022 10:29-0400 Body temperature 99.32 [degF] Malinda Klonk [facility] 09-12-2022 10:29-0400 Diastolic blood pressure 80 mm[Hg] Malinda Klonk [facility] 09-12-2022 10:29-0400 Heart rate 73 /min Malinda Perdueonk [facility] 09-12-2022 10:29-0400 SaO2% (BldA) [Mass fraction] 95 % Malinda Perdueonk [facility] 09-12-2022 10:29-0400 Systolic blood pressure 142 mm[Hg] Malinda Klonk [facility] 10-11-2021 12:20-0500 Diastolic blood pressure 80 mm[Hg] Cristin Murraydon Work Phone: [facility] 250 DO Work Phone: 10-11-2021 12:20-0500 Systolic blood pressure 138 mm[Hg] Cristin Squires Beldon Work Phone: [facility] 250 DO Work Phone: 10-11-2021 11:52-0500 Body height 154.94 cm Cristin Murraydon Work Phone: [facility] 250 DO Work Phone: 10-11-2021 11:52-0500 Body mass index (BMI) [Ratio] 23.43 kg/m2 Cristin Roblero Work Phone: [facility] 250 DO Work Phone: 10-11-2021 11:52-0500 Body surface area Derived from formula 1.54 m2 Cristin Roblero Work Phone: [facility] 250 DO Work Phone: 10-11-2021 11:52-0500 Body weight 56.25 kg Cristin Roblero Work Phone: [facility] 250 DO Work Phone: 10-11-2021 11:52-0500 Diastolic blood pressure 86 mm[Hg] Cristin Roblero Work Phone: [facility] 250 DO Work Phone: 10-11-2021 11:52-0500 Heart rate 60 /min Cristin Roblero Work Phone: [facility] 250 DO Work Phone: 10-11-2021 11:52-0500 Systolic blood pressure 152 mm[Hg] Cristin Roblero Work Phone: [facility] DO Work Phone: Encounters Encounter Date Encounter Type Care Provider Facility Start: 05-25-2025 brian Mcallister [facility]il [facility]y:[facility] Start: 11-12-2024 ambulatory Vilma Mcallister Facil ity:ALTAGRAC[facility] Start: 11-03-2024 ambulatory Vilma Mcallister [facility] Start: 10-15-2024 End: 10-15-2024 ambulatory Vilma Mcallister [facility] Start: 10-15-2024 End: 10-15-2024 Patient encounter procedure Vilma Mcallister [facility] Start: 10-11-2024 End: 10-11-2024 Office outpatient visit 25 minutes Jay Jay Mariscal MD Work Phone: [facility] Comment on above: Coronary artery dise ase, non-occlusive; Dyslipidemia; Essential hypertension; Mitral valve insufficiency, unspecified etiology; Hypothyroidism, unspecified type; BMI 23.0-23.9, adult; Never smoked tobacco Start: 10-11-2024 End: 10-11-2024 ambulatory JAY JAY Squires [facility] Start: 10-06-2024 End: 10-06-2024 ambulatory Vilma Mcallister [facility] Start: 10-06-2024 End: 10-06-2024 Patient encounter procedure Vilma Mcallister [facility] Start: 09-10-2024 End: 09-10-2024 Clinisync Result Encounter Ryley Isis DO Work Phone: [facility] Unsolicited Start: 09-10-2024 End: 09-10-2024 Clinisync Result Encounter Ryley Isis DO Work Phone: [facility] Unsolicited Start: 08-25-2024 End: 08-25-2024 ambulatory RYLEY ISIS Not Available Start: 07-09-2024 End: 07-09-2024 ambulatory Vilma Mcallister Facility:[facility] Start: 07-09-2024 End: 07-09-2024 Patient encounter procedure Vilma Mcallister [facility] Start: 06-30-2024 End: 06-30-2024 ambulatory ELEONORA FREY Not Available Start: 05-26-2024 End: 05-26-2024 ambulatory Vilma Mcallister [facility] Start: 05-26-2024 End: 05-26-2024 Patient encounter procedure Vilma Mcallister [facility] Start: 05-26-2024 End: 05-26-2024 Well adult monitoring check done Vilma Mcallister [facility] Start: 05-26-2024 End: 05-26-2024 ambulatory Vilma Mcallister [facility] Start: 05-26-2024 End: 05-26-2024 Patient encounter procedure Vilma Mcallister [facility] Start: 05-18-2024 End: 05-18-2024 ambulatory RYLEY MARINELLI Not Available Start: 05-13-2024 End: 05-13-2024 ambulatory Vilma Mcallister Facility:[facility] Start: 05-13-2024 End: 05-13-2024 Patient encounter procedure Vilma Mcallister [facility] Start: 05-12-2024 End: 05-12-2024 ambulatory Vilma Mcallister Facility:[facility] Start: 05-12-2024 End: 05-12-2024 Patient encounter procedure Vilma Mcallister [facility] Start: 05-06-2024 End: 05-06-2024 ambulatory DENTAL TREATMENT COORDINATOR-C SY HICKS Facility:[facility] Start: 05-06-2024 End: 05-06-2024 Patient encounter procedure SY HICKS [facility] [place] Start: 04-14-2024 End: 04-14-2024 ambulatory Vilma Mcallister Facility:[facility] Start: 04-14-2024 End: 04-14-2024 Patient encounter procedure Vilma Mcallister [facility] Start: 03-10-2024 End: 03-10-2024 ambulatory Vilma Mcallister Facility:[facility] Start: 03-10-2024 End: 03-10-2024 Patient encounter procedure Vilma Mcallister [facility] Start: 02-06-2024 End: 02-06-2024 ambulatory Vilma Mcallister Facility:[facility] Start: 02-06-2024 End: 02-06-2024 Patient encounter procedure Vilma Mcallister [facility] Start: 02-03-2024 End: 02-03-2024 ambulatory Vilma Mcallister Facility:[facility] Start: 01-22-2024 End: 01-22-2024 ambulatory Vilma Mcallister Facility:[facility] Start: 01-22-2024 End: 01-22-2024 Patient encounter procedure Vilma Mcallister [facility] Start: 01-21-2024 End: 01-21-2024 ambulatory Vilma Mcallister Facility:[facility] Start: 01-21-2024 End: 01-21-2024 Patient encounter procedure Vilma Mcallister [facility] Start: 01-15-2024 End: 01-15-2024 ambulatory Vilma Mcallister Facility:[facility] Start: 01-15-2024 End: 01-15-2024 Patient encounter procedure Vilma Mcallister [facility] Start: 11-27-2023 End: 11-27-2023 ambulatory NORMA R DOLCE Not Available Start: 11-13-2023 End: 11-13-2023 ambulatory NORMA R DOLCE Not Available Start: 11-10-2023 End: 11-10-2023 ambulatory LAWRENCE ROQUE Not Available Start: 11-04-2023 End: 11-04-2023 Patient encounter procedure WEB MASTER-C Camryn aggie Work Phone: [facility] [place] Work Phone: Start: 11-04-2023 End: 11-04-2023 ambulatory WEB MASTER-C Camrynrachel De La Rosa Work Phone: [facility] Work Phone: Start: 10-30-2023 End: 10-30-2023 ambulatory Vilma Mcallister Facility:[facility] Start: 10-30-2023 End: 10-30-2023 Patient encounter procedure Vilma Mcallisetr [facility] Start: 10-18-2023 End: 10-18-2023 ambulatory Vilma Mcallister Facility:[facility] Start: 10-18-2023 End: 10-18-2023 Patient encounter procedure Vilma Mcallister [facility] Start: 09-26-2023 End: 09-26-2023 ambulatory Vilma Mcallister Facility:[facility] Start: 09-26-2023 End: 09-26-2023 Patient encounter procedure Vilma Mcallister [facility] Start: 09-26-2023 End: 09-26-2023 Well adult monitoring check done Vilma Mcallister [facility] Start: 09-22-2023 End: 09-22-2023 ambulatory DENTAL TREATMENT COORDINATOR-C Camryn De La Rosa Facility:[facility] Start: 09-04-2023 End: 09-04-2023 ambulatory Vilma Mcallister Facility:[facility] Start: 08-27-2023 End: 08-27-2023 ambulatory DENTAL TREATMENT COORDINATOR-C Camryn De La Rosa Facility:[facility] Start: 08-19-2023 End: 08-19-2023 ambulatory DENTAL TREATMENT COORDINATOR-C Camryn De La Rosa Facility:[facility] Start: 08-19-2023 End: 08-19-2023 Patient encounter procedure Camryn De La Rosa [facility] Start: 08-19-2023 End: 08-19-2023 Well adult monitoring check done Camryn De La Rosa [facility] Start: 08-14-2023 ambulatory Scott V. Spasic Fa cility:[facility] Start: 07-16-2023 Chart Update Camryn marcial Work Phone: [facility] 250 DO Work Phone: Start: 07-15-2023 ambulatory Ms. Camryn De La Rosa Facility: Start: 07-15-2023 Office outpatient vi sit 25 minutes Camryn De La Rosa Work Phone: [facility] 250 DO Work Phone: Start: 07-14-2023 End: 07-14-2023 ambulatory WEB MASTER-C Camryn De La Rosa Work Phone: [facility] Work Phone: Start: 07-14-2023 End: 07-14-2023 Patient encounter procedure WEB MASTER-C Camryn De La Rosa Work Phone: [facility] [place] Work Phone: Start: 04-01-2023 End: 04-01-[address] DANNY SANTILLAN . Facility:[facility] Start: 03-05-2023 End: 03-06-[address] DANNY SANTILLAN . Facility:[facility] Start: 02-12-2023 Rx Renewal Cristin Squires Terrijermaine Work Phone: [facility] 250 DO Work Phone: Start: 01-28-2023 End: 01-28-2023 Patient encounter procedure Cory Sarah TRES [facility] [place] Start: 01-21-2023 End: 01-21-2023 Patient encounter procedure Cory Sarah TRES [facility] Start: 2023 End: 2023 Patient encounter procedure Malinda Rubio [facility] Start: 12-17-2022 End: 12-17-2022 Patient encounter procedure Malinda Rubio [facility] Start: 12-06-2022 End: 12-07-[address] DANNY SANTILLAN . Facility: Start: 09-24-2022 End: 09-24-2022 Patient encounter procedure Malinda Rubio [facility] Start: 09-17-2022 End: 09-17-2022 Off-Site Malinda Rubio [facility] Start: 09-12-2022 End: 09-12-2022 Patient encounter procedure Malinda Rubio [facility] Start: 09-07-2022 End: 09-07-2022 Patient encounter procedure Malinda Sarah Ironbalbircarol [facility] Start: 07-12-2022 Chart Update Cristin Roblero Work Phone: [facility] 600 DO Work Phone: Start: 07-12-2022 End: 07-12-2022 Patient encounter procedure Jay Jay Mariscal [facility] Start: 04-15-2022 End: 04-15-[address] DANNY SANTILLAN . Facility: Start: 10-11-2021 Office outpatient vi sit 25 minutes Cristin Roblero Work Phone: [facility] [address] [place] Work Phone: Start: 10-11-2021 Patient encounter procedure Cristin Roblero Work Phone: [facility] 250 DO Work Phone: Start: 04-09-2021 End: 04-09-2021 Subsequent hospital visit by physician Dandy [facility] Comment on above: Bilateral hand pain [M79.641, M79.642] Start: 09-08-2017 Ambulatory CRIS VALENZUELA Facility:1 637 Procedures Date Procedure Procedure Detail Performing Clinician Start: 09-10-2024 ALL BASIC METABOLIC PANEL Ryley Marinelli DO Work Phone: Start: 11-04-2023 MRI of bilateral garrison asts with contrast WEB MASTERJhon De La Rosa Work Phone: Start: 04-09-2021 Radex hand minimum 3 views Nico Newell MD Work Phone: Start: 02-02-2021 Biopsy of breast Jay Jay Mariscal Comment on above: sentinel node Start: 02-02-2021 Lumpectomy of right breast Jay Jay Mariscal Start: 01-12-2021 Ultrasonography guid ed biopsy of right breast Jay Jay Mariscal Start: 12-01-2014 Total colonoscopy Cristin Roblero Work Phone: Biopsy of breast Cristin Coon on Work Phone: Cardiac catheterization Cristin Roblero Work Phone: Comment on above: 2019 40% LAD; Dilation and curettage Margarito nn G Missler Work Phone: Dilation and curettage Margarito nn Missler Ligation of fallopian tube S nhi Roblero Work Phone: Ligation of fallopian tube H kaia Mariscal Lumpectomy of breast Cristin Roblero Work Phone: Comment on above: left; Tonsillectomy Cristin Roblero Work Phone: Tonsillectomy Jay Jay Mariscal Ultrasonography guid ed biopsy of right breast Cory JOSHUA Plan of Treatment Date Care Activity Detail Author Start: 10-11-2025 End: 10-11-2025 Patient encounter procedure 10/11/2025 10:30 AM EST Office Visit [facility] [address] [facility] [address] [place] [address] Jay Jay Mariscal MD [address] [facility] [address] [place] [address] [facility] Start: 05-23-2025 End: 05-23-2025 Patient encounter procedure 05/23/2025 1:00 PM EDT Office Visit [facility] [address] [place] [address] Ryley Marinelli DO [address] [place] [address] [facility] Start: 11-17-2024 End: 11-17-2024 Patient encounter procedure 11/17/2024 9:30 AM EST Office Visit [facility] [address] [place] [id number] Lawrence Roque DO [address] [place] [address] [facility] Start: 09-17-2024 End: 09-17-2024 Patient encounter procedure 09/17/2024 9:30 AM EDT Procedure Visit [facility] EXT DEP Ryley Marinelli, DO [address] [facility] [place] [address] [facility] EX[facility] Start: 08-01-2024 COVID-19 Vaccine ( season) COVID-19 Vaccine ( season) [facility] Start: 08-01-2024 Influenza vaccination Influenza Vaccine (#1) [facility] Start: 07-14-2024 FUV, Provider: Jay Jay Mariscal, Status: Pen, Time: 11:00 AM FUV, Provider: Jay Jay Mariscal, Status: Pen, Time: 11:00 AM [facility] 250 DO Work Phone: Start: 08-01-2023 Influenza vaccination INFLUENZA (#1) [facility] Start: 07-29-2023 NURSEVST, Provider: JANETT ALLAN TEST ENGINEERING TECHNICIAN 1,[id number], Status: Pen, Time: 11:00 AM NURSEVST, Provider: JANETT ALLAN TEST ENGINEERING TECHNICIAN 1,[id number], Status: Pen, Time: 11:00 AM [facility] 250 DO Work Phone: Start: 07-15-2023 FUV, Provider: Jay Jay Mariscal, Status: Pen, Time: 10:30 AM FUV, Provider: Jay Jay Mariscal, Status: Pen, Time: 10:30 AM [facility] [employer] 250 DO Work Phone: Start: 12-01-2022 ADVANCE DIRECTIVE DISCUSSION ADVANCE DIRECTIVE DISCUSSION [facility] Start: 12-01-2022 DEPRESSION ASSESSMENT DEPRESSION ASSESSMENT [facility] Start: 07-16-2022 FUV, Provider: Jay Jay Mariscal, Status: Pen, Time: 11:00 AM FUV, Provider: Jay Jay Mariscal, Status: Skyler, Time: [facility]:[address] [facility]: Start: 05-22-2020 DTaP/Tdap/Td Vaccines (2 - Td or Tdap) DTaP/Tdap/Td Vaccines (2 - Td or Tdap) [facility] Start: 2015 BONE DENSITY BONE DENSITY [facility] Start: 2015 PNEUMOCOCCAL: 65+ (1 - PCV) PNEUMOCOCCAL: 65+ (1 - PCV) [facility] Start: 2010 RSV High Risk: (Elderly (60+) or Population) (1 - Risk 60-74 years 1-dose series) RSV High Risk: (Elderly (60+) or Population) (1 - Risk 60-74 years 1-dose series) [facility] Start: 2000 SHINGRIX VACCINE (1 of 2) SHINGRIX VACCINE (1 of 2) [facility] Start: 2000 Zoster Vaccines (1 of 2) Zoster Vaccines (1 of 2) [facility] Start: 1995 [...] Start: 1990 Mammography MAMMOGRAM [facility] Start: 1990 Screening for malignant neoplasm of breast Mammogram [facility] Start: 1969 Urine microalbumin profile DTAP,TDAP,TD (1 - Tdap) [facility] Start: 1968 HEPATITIS C SCREENING HEPATITIS C SCREENING [facility] Start: 1968 Hepatitis C screening Hepatitis C Screening [facility] Start: 1950 COVID-19 VACCINE (#1) COVID-19 VACCINE (#1) [facility] Start: 1950 Lipid panel Lipid Panel [facility] Start: 1950 Medicare Annual Wellness Visit Medicare Annual Wellness Visit (AWV) [facility] Start: 1950 Screening for malignant neoplasm of colon [facility] Start: 1950 Screening for osteoporosis Bone Density Scan [facility] Start: 1950 Thyroid stimulating hormone measurement TSH Level [facility] Immunizations Immunization Date Immunization Notes Care Provider Fa cility 01-31-2020 pneumococcal conjuga te vaccine, 13 valent Cristin Roblero Work Phone: [facility] 250 DO Work Phone: 09-25-2019 pneumococcal conjuga te vaccine, 13 valent Goyal Mariscal [facility] 09-20-2019 pneumococcal conjuga te vaccine, 13 valent Cristin Roblero Work Phone: [facility] 600 DO Work Phone: 12-01-2018 pneumococcal polysaccharide vaccine, 23 valent Cristin Roblero Work Phone: [facility] 08-31-2015 influenza virus vaccine, unspecified formulation Cristin Roblero Work Phone: [facility] 600 DO Work Phone: 04-02-2013 influenza virus vaccine, unspecified formulation Goyal Mariscal [facility] 05-22-2010 tetanus toxoid, redu latrell diphtheria toxoid, and acellular pertussis vaccine, adsorbed Goyal Mariscal [facility] NEGATED: Highlighted row has not occurred!09-26-2023 influenza virus vaccine, unspecified formulation Vilma Esvin [facility] NEGATED: Highlighted row has not occurred!08-19-2023 influenza virus vaccine, unspecified formulation Camryn De La Rosa [facility] NEGATED: Highlighted row has not occurred!09-12-2022 influenza virus vaccine, unspecified formulation Malinda Rubio [facility] NEGATED: Highlighted row has not occurred!02-07-2020 influenza virus vaccine, live, attenuated, for intranasal use Jay Jay Rodriguezim [facility] Payers Date Payer Category Payer Self-pay [id number] 2022 Medicare (Managed Care) [employer] Member Subscriber Plan / Payer (Effective 2022-Present) Name: Kermit Rosen Member ID: [id number] Relation to Subscriber: Self Name: Kermit Rosen Subscriber ID: [id number] Payer ID: Not on file Group ID: Not on file Type: Not on file Address: [address] [place] [address] [id number] 2022 Unknown 2021 Unknown [id number] 2017 Private Health Insurance [employer] A ETNA MEDICARE SUPPLEMENT [id number] 2017-Present [phone] [address] [address] [place] [address] Indemnity [id number] 2014 Medicare MEDICARE MEDICAR E A AND B [id number] 2014-Present [phone] [place] [address] Medicare [id number] 1959 Unknown [id number] 1950 Unknown [id number] 2.16.840.1.051185.3.579. 2.593 1950 Unknown [id number] 2.16.840.1.037321.3.579. 2.593 1950 Unknown [id number] 2.16.840.1.246058.3.579. 2.593 1950 Unknown [id number] 2.16.840.1.714858.3.579. 2.593 1950 Unknown [id number] 2.16.840.1.633627.3.579. 2.356 1950 Unknown [id number] 2.16.840.1.360714.3.579. 2.727 1950 Unknown [id number] 2.16.840.1.651699.3.579. 2.727 1950 Unknown [id number] 2.16.840.1.871475.3.579. 2.727 1950 Unknown [id number] 2.16.840.1.324306.3.579. 2.727 1950 Unknown [id number] 2.16.840.1.752715.3.579. 2.727 1950 Unknown [id number] 2.16.840.1.779754.3.579. 2.727 1950 Unknown [id number] 2.16.840.1.572465.3.579. 2.727 1950 Unknown [id number] 2.16.840.1.383172.3.579. 2.727 1950 Unknown [id number] 2.16.840.1.267968.3.579. 2.727 1950 Unknown [id number] 2.16.840.1.014306.3.579. 2. 1950 Unknown [id number] 2.16.840.1.443323.3.579. 2. 1950 Unknown [id number] 2.16.840.1.253145.3.579. 2 1950 Unknown [id number] 2.16.840.1.482977.3.579. 2 1950 Unknown [id number] 2.16.840.1.324114.3.579. 2 1950 Unknown [id number] 2.16.840.1.653734.3.579. 2 1950 Unknown [id number] 2.16.840.1.131807.3.579. 2 1950 Unknown [id number] 2.16.840.1.289085.3.579. 2 1950 Unknown [id number] 2.16.840.1.939589.3.579. 2 1950 Unknown [id number] 2.16.840.1.613618.3.579. 2 1950 Unknown [id number] 2.16.840.1.653531.3.579. 2 1950 Unknown [id number] 2.16.840.1.697999.3.579. 2 1950 Unknown [id number] 2.16.840.1.142652.3.579. 2.1258 1950 Unknown [id number] 2.16.840.1.897518.3.579. 2.1258 1950 Unknown [id number] 2.16.840.1.924900.3.579. 2.1258 1950 Unknown [id number] 2.16.840.1.028371.3.579. 2.1258 1950 Unknown [id number] 2.16.840.1.554933.3.579. 2.1259 1950 Unknown [id number] 2.16.840.1.564078.3.579. 2.1259 1950 Unknown [id number] 2.16.840.1.414557.3.579. 2.1244 1950 Unknown [id number] 2.16.840.1.466434.3.579. 2.727 1950 Unknown [id number] 2.16.840.1.935159.3.579. 2.727 1950 Unknown [id number] 2.16.840.1.286850.3.579. 2.7 1950 Unknown [id number] 2.16.840.1.524917.3.579. 2.727 1950 Unknown [id number] 2.16.840.1.612446.3.579. 2.727 1950 Unknown [id number] 2.16.840.1.202031.3.579. 2.727 Medicare Medicare [id number] Private Health Insurance [employer] [id number] Unknown [employer] [id number] Unknown [id number] 2.16.840.1.613565.3.579. 2.531 Social History Date Type Detail Facility Start: 04-09-2021 End: 10-11-2024 [facility] Work [facility]: Comment on above: 2 cups of coffee abdirahman ly; occasional; 1 cup of coffee beto y; Start: 01-25-2022 End: 10-15-2024 Tobacco smoking status Never smoked tobacco (finding) [facility] Tobacco smoking status Never [facility] Start: 04-09-2021 End: 10-11-2024 Sex Assigned At Female [facility] Start: 04-09-2021 End: 10-11-2024 Tobacco use and exposure Smokeless tobacco non-user [facility] Start: 1950 Sex Assigned At Not on file [facility] Start: 03-10-2021 End: 10-11-2024 Exposure to SARS-CoV-2 (event) Not sure [facility] Start: 1950 Sex Assigned At Female K[facility] Start: 08-25-2024 Alcoholic beverage intake Current drinker of alcohol (finding) [facility] Start: 06-05-2023 Alcohol Comment Alcohol: 1 or 2 drinks, 2 to 4 times a month; Caffeine: 1-2 cups/day [facility] Start: 10-11-2024 Alcoholic beverage intake Ex-drinker (finding) [facility] Work Phone: Functional Status Date Assessment Result Facility 10-15-2024 Functional Status N/A [facility] 07-09-2024 Functional Status N/A [facility] 05-26-2024 Functional Status N/A [facility] 05-12-2024 Functional Status N/A [facility] 05-06-2024 Functional Status N/A [facility] 04-14-2024 Functional Status N/A [facility] 02-06-2024 Functional Status N/A [facility] 01-15-2024 Functional Status N/A [facility] 10-30-2023 Functional Status N/A [facility] 09-26-2023 Functional Status N/A [facility] 08-19-2023 Functional Status N/A [facility] 12-17-2022 Functional Status N/A [facility] 09-24-2022 Functional Status N/A [facility] 09-17-2022 Functional Status Telehealth Patient Fish [facility] [place] 09-12-2022 Functional Status N/A [facility] Clinical Notes 04-09-2021 to 10-15-2024 Jay Jay Mariscal MD - 10/11/2024 1:30 PM ESTPatient InstructionsLaboratoryRadiologyLaboratoryRadiologyLaboratoryLaboratoryLaboratory LaboratoryRadiologyLaboratoryRadiologyLaboratoryLaboratory Note Date & Type Note Facility 10-15-2024 Hospital Discharge instructions Patient Education 10/15/2024 11:08:31 Acute Bronchitis, Adult Acute Bronchitis, Adult Acute [...] condition. Follow these instructions at home: Take bmyx-xha-xxbyxow and prescription medicines only as told by [...] and water are not available, use hand technical publications manager. Avoid contact with people who have cold [...] it is easier to cough up. Take akqq-gio-xqyjyul and prescription medicines only as told by [...] provider. Document Revised: 02/27/2023 Document Reviewed: 03/20/2022 [employer] Patient Education 2023 [employer]. 10/15/2024 11:08:26 Postnasal Drip Postnasal Drip Postnasal drip is the feeling of mucus going down the back of your throat. Mucus is a slimy substance that moistens and cleans your nose and throat, as well as the air pockets in face bones near your forehead and cheeks (sinuses). Small amounts of mucus pass from your nose and sinuses down the back of your throat all the time. This is normal. When you produce too much mucus or the mucus gets too thick, you can feel it. Some common causes of postnasal drip include: Having more mucus because of: ?A cold or the flu. ?Allergies. ?Cold air. ?Certain medicines. ?Gastroesophageal reflux. Having more mucus that is thicker because of: ?A sinus or nasal infection. ?Dry air. ?A food allergy. Follow these instructions at home: Relieving discomfort Gargle with a mixture of salt and water 3 4 times a day or as needed. To make salt water, completely dissolve 1 tsp (3 6 g) of salt in 1 cup (237 mL) of warm water. If the air in your home is dry, use a humidifier to add moisture to the air. Use a saline spray or a container (neti pot) to flush out the nose (nasal irrigation). These methods can help clear away mucus and keep the nasal passages moist. General instructions Take oqvr-xsd-dktqwlk and prescription medicines only as told by your health care provider. Follow instructions from your health care provider about eating or drinking restrictions. You may need to avoid caffeine. Avoid things that you know you are allergic to (allergens), like dust, mold, pollen, pets, or certain foods. Drink enough fluid to keep your urine pale yellow. Keep all follow-up visits. This is important. Contact a health care provider if: You have a fever. You have a sore throat or difficulty swallowing. You have a headache. You have sinus or ear pain. You have a cough that does not go away. The mucus from your nose becomes thick and is green or yellow in color. You have cold or flu symptoms that last more than 10 days. Summary Postnasal drip is the feeling of mucus going down the back of your throat. Use nasal irrigation or a nasal spray to help clear away mucus and keep the nasal passages moist. Avoid things that you know you are allergic to (allergens), like dust, mold, pollen, pets, or certain foods. This information is not intended to replace advice given to you by your health care provider. Make sure you discuss any questions you have with your health care provider. Document Revised: 10/17/2022 Document Reviewed: 10/17/2022 [employer] Patient Education 2023 [employer]. 10/15/2024 11:08:23 Aspiration Pneumonia, Adult Aspiration Pneumonia, Adult Aspiration pneumonia is an infection that occurs after you breathe a large amount of food, liquid, stomach acid, or saliva into your lungs (pulmonary aspiration). This can cause inflammation and infection in the lungs. It can also make you cough and make it hard to breathe. This condition is serious and can be life-threatening. What are the causes? This condition may be caused by: Breathing the bacteria in food, liquid, stomach acid, or saliva into your lungs. Breathing material such as blood or a foreign body into your lungs. This can cause an infection even if the material does not originally have bacteria on it. What increases the risk? You are more likely to get aspiration pneumonia if you have a condition that makes it hard to breathe, swallow, cough, or gag, such as: A breathing disorder. This includes chronic obstructive pulmonary disease (COPD). A brain (neurologic) disorder. This may be a stroke, seizures, Parkinson's disease, dementia, amyotrophic lateral sclerosis (ALS), or a brain injury. Gastroesophageal reflux disease (GERD). Esophageal narrowing. This is a narrowing of the tube that carries food to the stomach. You may also be more likely to get this condition if: You are older than age 60 and frail. You are given anesthesia for a procedure. You drink too much alcohol and pass out. If you pass out and vomit, the vomit can be inhaled into your lungs. You take medicines to help you sleep. These include tranquilizers and sedatives. You take poor care of your mouth and teeth. You do not get enough nutrients (are malnourished). You have a weak disease-fighting system (immune system). What are the signs or symptoms? The main sign of this condition is an episode of choking or coughing while eating or drinking. Other symptoms may include: A cough that does not go away. Trouble breathing. This may include shortness of breath. It may also involve high-pitched whistling sounds when you breathe, most often when you breathe out (wheezing). Fever. Chest pain. Being more tired than usual (fatigue). This condition may also be silent. This means that you may not have any symptoms. How is this diagnosed? This condition may be diagnosed based on a physical exam. You may also have tests, such as: Blood tests. Chest X-ray. Sputum culture. This is when mucus (sputum) is taken from the lungs or from the tubes that carry air to the lungs (bronchi). The sputum is tested for bacteria. Oximetry. This is when a sensor or clip is put on an area such as a finger, earlobe, or toe. It measures the level of oxygen in your blood. Swallowing study. This test looks at how food is swallowed. It is done to see whether food goes into your windpipe (trachea) or esophagus. Bronchoscopy. This test uses a flexible tube (bronchoscope) to see inside your lungs. How is this treated? This condition may be treated with: Medicines. Antibiotics will be given to kill the bacteria that are causing the pneumonia. Other medicines may also be used to reduce fever, pain, or inflammation. Breathing assistance and oxygen therapy. You may need to be given oxygen, or you may need breathing support from a machine (ventilator). Thoracentesis. This is a procedure to remove fluid that has built up in the space between the linings of the chest wall and the lungs. Changes in diet. If you get this condition often, you may need to have a feeding tube placed. This can help give you the nutrients you need. Follow these instructions at home: Medicines Take umvs-izd-sqzykvp and prescription medicines as told by your health care provider. Finish your antibiotics even if you start to feel better. Take cough medicine only if you are losing sleep. Cough medicine can stop your body from being able to remove mucus from your lungs. General instructions Follow instructions from your health care provider about what you may eat and drink. You may need to: ?Avoid certain food textures. ?Thicken your liquids. This can lower your risk of getting this condition again. Sleep in a semi-upright position at night. Try to sleep in a reclining chair. You may also place a few pillows under your head in bed. Do not use any products that contain nicotine or tobacco. These products include cigarettes, chewing tobacco, and vaping devices, such as e-cigarettes. If you need help quitting, ask your health care provider. Return to your normal activities as told by your health care provider. Ask your health care provider what activities are safe for you. Keep all follow-up visits. Your health care provider may need to see how you are healing. Contact a health care provider if: You have a fever. You cough or choke when you eat or drink. You keep having signs or symptoms of this condition. Get help right away if: You have trouble breathing that gets worse. You have chest pain. These symptoms may be an emergency. Get help right away. Call 911. Do not wait to see if symptoms will go away. Do not drive yourself to the hospital. This information is not intended to replace advice given to you by your health care provider. Make sure you discuss any questions you have with your health care provider. Document Revised: 04/30/2023 Document Reviewed: 04/30/2023 [employer] Patient Education 2023 [employer]. Follow Up Care 10/12/2024 16:59:27 With:Esvin AVILES, ROSA MARIA Hilton, [facility] Address: [address], [address] [facility] [address] [place] [address]- When:Within 2 Week(s) Comments:lung follow up [facility] 10-15-2024 Note Patient Education ENT Postnasal Drip Postnasal drip is the feeling of mucus going down the back of your throat. Mucus is a slimy substance that moistens and cleans your nose and throat, as well as the air pockets in face bones near your forehead and cheeks (sinuses). Small amounts of mucus pass from your nose and sinuses down the back of your throat all the time. This is normal. When you produce too much mucus or the mucus gets too thick, you can feel it. Some common causes of postnasal drip include: ??? Having more mucus because of: ? A cold or the flu. ? Allergies. ? Cold air. ? Certain medicines. ? Gastroesophageal reflux. ??? Having more mucus that is thicker because of: ? A sinus or nasal infection. ? Dry air. ? A food allergy. Follow these instructions at home: Relieving discomfort ??? Gargle with a mixture of salt and water 3?4 times a day or as needed. To make salt water, completely dissolve ??1 tsp (3?6 g) of salt in 1 cup (237 mL) of warm water. ??? If the air in your home is dry, use a humidifier to add moisture to the air. ??? Use a saline spray or a container (neti pot) to flush out the nose (nasal irrigation). These methods can help clear away mucus and keep the nasal passages moist. General instructions ??? Take vsnw-col-tawgxcf and prescription medicines only as told by your health care provider. ??? Follow instructions from your health care provider about eating or drinking restrictions. You may need to avoid caffeine. ??? Avoid things that you know you are allergic to (allergens), like dust, mold, pollen, pets, or certain foods. ??? Drink enough fluid to keep your urine pale yellow. ??? Keep all follow-up visits. This is important. Contact a health care provider if: ??? You have a fever. ??? You have a sore throat or difficulty swallowing. ??? You have a headache. ??? You have sinus or ear pain. ??? You have a cough that does not go away. ??? The mucus from your nose becomes thick and is green or yellow in color. ??? You have cold or flu symptoms that last more than 10 days. Summary ??? Postnasal drip is the feeling of mucus going down the back of your throat. ??? Use nasal irrigation or a nasal spray to help clear away mucus and keep the nasal passages moist. ??? Avoid things that you know you are allergic to (allergens), like dust, mold, pollen, pets, or certain foods. This information is not intended to replace advice given to you by your health care provider. Make sure you discuss any questions you have with your health care provider. Document Revised: 10/17/2022 Document Reviewed: 10/17/2022 [employer] Patient Education ? 2023 [employer]. Neurology Aspiration Pneumonia, Adult Aspiration pneumonia is an infection that occurs after you breathe a large amount of food, liquid, stomach acid, or saliva into your lungs (pulmonary aspiration). This can cause inflammation and infection in the lungs. It can also make you cough and make it hard to breathe. This condition is serious and can be life-threatening. What are the causes? This condition may be caused by: ??? Breathing the bacteria in food, liquid, stomach acid, or saliva into your lungs. ??? Breathing material such as blood or a foreign body into your lungs. This can cause an infection even if the material does not originally have bacteria on it. What increases the risk? You are more likely to get aspiration pneumonia if you have a condition that makes it hard to breathe, swallow, cough, or gag, such as: ??? A breathing disorder. This includes chronic obstructive pulmonary disease (COPD). ??? A brain (neurologic) disorder. This may be a stroke, seizures, Parkinson's disease, dementia, amyotrophic lateral sclerosis (ALS), or a brain injury. ??? Gastroesophageal reflux disease (GERD). ??? Esophageal narrowing. This is a narrowing of the tube that carries food to the stomach. You may also be more likely to get this condition if: ??? You are older than age 60 and frail. ??? You are given anesthesia for a procedure. ??? You drink too much alcohol and pass out. If you pass out and vomit, the vomit can be inhaled into your lungs. ??? You take medicines to help you sleep. These include tranquilizers and sedatives. ??? You take poor care of your mouth and teeth. ??? You do not get enough nutrients (are malnourished). ??? You have a weak disease-fighting system (immune system). What are the signs or symptoms? The main sign of this condition is an episode of choking or coughing while eating or drinking. Other symptoms may include: ??? A cough that does not go away. ??? Trouble breathing. This may include shortness of breath. It may also involve high-pitched whistling sounds when you breathe, most often when you breathe out (wheezing). ??? Fever. ??? Chest pain. ??? Being more tired than usual (fatigue). This condition may also be silent. (more content not included)... [facility] 10-11-2024 History of Present illness Narrative Cj Rosen is a 74 y.o. female Chief Complaint Annual Exam HPI Patient is in the office for follow-up for the problems noted below along with a need for cardiac clearance prior to D&C surgery scheduled in few weeks at [facility]. Her blood pressure is under excellent control. She denies any palpitations or chest pain. She is not taking statin as I have previously recommended since she says she does not believe in this line of treatment. I tried to make my case for her to take the medicine based on the scientific data rehab but she insists on not taking it. She understand there is a risk interaction. She is taking the aspirin well. Examination was unremarkable today. Assessment/recommendations 1-mild coronary atherosclerosis with 40% mid anterior descending artery lesion, patient is asymptomatic and remains on aspirin, patient refused to go on statin. She does not do cardiac testing in preparation for the upcoming surgery scheduled at [place] for D&C. She is acceptable risk and the surgery could be carried out without any further cardiac testing 2-essential hypertension under control with no changes needed 3-hypothyroidism on replacement therapy. 4-hyperlipidemia, refuses to take medications 5-mild and insignificant mitral regurgitation by echocardiogram 2017 Review of Systems All other systems reviewed and are negative. Vitals: 10/11/24 1332 BP: 116/68 BP Location: Right arm Patient Position: Sitting Pulse: 76 Weight: 55.5 kg (122 lb 6.4 oz) Height: 1.549 m (5' 1 ) Objective Physical Exam Constitutional: Appearance: Normal appearance. HENT: Nose: Nose normal. Neck: Vascular: No carotid bruit. Cardiovascular: Rate and Rhythm: Normal rate. Pulses: Normal pulses. Heart sounds: Normal heart sounds. Pulmonary: Effort: Pulmonary effort is normal. Abdominal: General: Bowel sounds are normal. Palpations: Abdomen is soft. Musculoskeletal: General: Normal range of motion. Cervical back: Normal range of motion. Right lower leg: No edema. Left lower leg: No edema. Skin: General: Skin is warm and dry. Neurological: General: No focal deficit present. Mental Status: She is alert. Psychiatric: Mood and Affect: Mood normal. Behavior: Behavior normal. Thought Content: Thought content normal. Judgment: Judgment normal. Allergies Atorvastatin, Citalopram, Diclofenac, Doxycycline, Hydrochlorothiazide, Lisinopril, and Propranolol Current Medications Current Outpatient Medications: aspirin 81 mg EC tablet, Take 1 tablet (81 mg) by mouth 3 times a week., Disp: , Rfl: metoprolol succinate XL (Toprol-XL) 50 mg 24 hr tablet, Take 1 tablet by mouth once daily, Disp: 90 tablet, Rfl: 3 nitroglycerin (Nitrostat) 0.4 mg SL tablet, Place 1 tablet (0.4 mg) under the tongue every 5 minutes if needed for chest pain., Disp: , Rfl: sertraline (Zoloft) 50 mg tablet, Take 1 tablet (50 mg) by mouth once daily., Disp: , Rfl: thyroid, pork, ([place] Thyroid) 30 mg tablet, Take 1 tablet (30 mg) by mouth once daily in the morning. Take before meals., Disp: , Rfl: valsartan (Diovan) 160 mg tablet, Take 1 tablet (160 mg) by mouth once daily., Disp: 90 tablet, Rfl: 3 Assessment/Plan 1. Coronary artery disease, non-occlusive Follow Up In Cardiology 2. Dyslipidemia 3. Essential hypertension 4. Mitral valve insufficiency, unspecified etiology 5. Hypothyroidism, unspecified type 6. BMI 23.0-23.9, adult 7. Never smoked tobacco Patient is cleared from a cardiac standpoint for upcoming procedure. Scribe Attestation By signing my name below, I, Pennie Platt RN , Scribe attest that this documentation has been prepared under the direction and in the presence of Jay Jay Mariscal MD. Provider Attestation - Scribe documentation All medical record entries made by the Scribe were at my direction and personally dictated by me. I have reviewed the chart and agree that the record accurately reflects my personal performance of the history, physical exam, discussion and plan. documented in this encounter [facility] Work Phone: 10-11-2024 Instructions Pennie Lan RN - 10/11/2024 1:30 PM EST Please bring all medicines, vitamins, and herbal supplements with you when you come to the office. Prescriptions will not be filled unless you are compliant with your follow up appointments or have a follow up appointment scheduled as per instruction of your physician. Refills should be requested at the time of your visit. You are cleared for upcoming procedure with Dr Marinelli documented in this encounter [facility] Work Phone: 05-26-2024 Hospital Discharge instructions Patient Education 05/26/2024 [...] canola oil, flaxseeds, walnuts, almonds, and seeds. ?[place]-3 fats. These are found in foods such [...] oatmeal, bulgur, barley, quinoa, or brown rice. Mead or whole wheat flour tortillas. Meats and [...] or reduced-fat mayonnaise and salad dressings. Avocado. [place], canola, sesame, or safflower oils. The items [...] meat. Dairy Whole or 2% milk, cream, uycl-mhl-wbfs, and cream cheese. Whole milk cheeses. Whole-fat or sweetened yogurt. Full-fat cheeses. Nondairy creamers and whipped toppings. Processed cheese, cheese spreads, and cheese curds. Fats and oils Butter, stick margarine, lard, shortening, ghee, or torres fat. Coconut, palm kernel, and palm oils. Beverages Alcohol. Sugar-sweetened drinks such as sodas, lemonade, and fruit drinks. Sweets and desserts Mead syrup, sugars, honey, and molasses. Candy. Jam [...] provider. Document Revised: 03/29/2022 Document Reviewed: 03/29/2022 [employer] Patient Education 2022 [employer]. 05/26/2024 15:45:13 Hypertension, Adult, Zbxd-uz-Vxnm Hypertension, Adult Hypertension is another name for [...] doctor. Keep all follow-up visits. Medicines Take srzr-qwu-xdlumer and prescription medicines only as told by [...] provider. Document Revised: 09/05/2022 Document Reviewed: 09/05/2022 [employer] Patient Education 2022 [employer]. 05/26/2024 15:45:09 DASH Eating Plan DASH Eating [...] Dairy Whole or 2% milk, cream, and sgij-yar-dvkg. Whole or full-fat cream cheese. Whole-fat or [...] more information National Heart, Lung, and Blood [place]: www.nhlbi.nih.gov [place] Heart Association: www.heart.org Academy of Nutrition and [...] provider. Document Revised: 10/20/2020 Document Reviewed: 10/20/2020 [employer] Patient Education 2022 [employer]. 05/26/2024 15:45:06 Major Depressive Disorder, Adult Major [...] things, which may include: Your personality traits. Conrad or conditioned behaviors or thoughts or feelings [...] your health care provider. General instructions Take oizb-udb-xjrjmnu and prescription medicines only as told by your health care provider. Eat a healthy diet and get plenty of sleep. Consider joining a support group. Your health care provider may be able to recommend one. Keep all follow-up visits as told by your health care provider. This is important. Where to find more information National [place] on Mental Illness: www.julia.org [place]. National [place] of Mental Health: www.nimh.nih.gov Contact a health [...] department or: Call your local emergency services (987 in the [place] Call a suicide crisis helpline, such as the National Suicide Prevention Lifeline at or 422 in the [place] This is open 24 hours a day in the [place] Text the Crisis Text Line at 576425 (in the [place] Summary Major depressive disorder [...] provider. Document Revised: 06/12/2022 Document Reviewed: 10/28/2020 [employer] Patient Education 2022 [employer]. [facility] 05-26-2024 Hospital Discharge instructions Patient [...] such as almond, soy, or oat milks. ?[place] juice. ?Margarine. When choosing foods, check the [...] including vitamins, herbs, eye drops, creams, and glas-tpo-lzziyya medicines. Take ggys-wjx-zxviqgx and prescription medicines only as told by [...] provider. Document Revised: 08/23/2022 Document Reviewed: 08/23/2022 [employer] Patient Education 2022 [employer]. 05/26/2024 13:32:06 Dyslipidemia Dyslipidemia Dyslipidemia is an [...] quitting, ask your health care provider. Take hlgd-abg-titbjjn and prescription medicines only as told by [...] provider. Document Revised: 01/21/2022 Document Reviewed: 01/21/2022 [employer] Patient Education 2022 [employer]. 05/26/2024 13:32:04 Hypertension, Adult Hypertension, Adult High [...] follow-up visits. This is important. Medicines Take ojtw-tmg-dubpdel and prescription medicines only as told by [...] provider. Document Revised: 09/24/2022 Document Reviewed: 09/24/2022 [employer] Patient Education 2022 [employer]. 05/26/2024 13:32:03 Heart Disease Prevention Heart Disease [...] of hard liquor (44 mL). Medicines Take aqhy-nbr-kiyzezq and prescription medicines only as told by [...] Centers for Disease Control and Prevention: www.cdc.gov/heartdisease [place] Heart Association: www.heart.org Summary Heart disease is [...] provider. Document Revised: 07/17/2022 Document Reviewed: 07/17/2022 [employer] Patient Education 2022 [employer] 05/26/2024 13:31:57 Hypothyroidism Hypothyroidism Hypothyroidism is when [...] away. Follow these instructions at home: Take ewkd-lng-aswdcjz and prescription medicines only as told by [...] provider. Document Revised: 11/19/2022 Document Reviewed: 11/19/2022 [employer] Patient Education 2022 [employer]. 05/26/2024 13:18:44 Dyslipidemia Dyslipidemia Dyslipidemia is an [...] quitting, ask your health care provider. Take makl-vfp-ebruewz and prescription medicines only as told by [...] provider. Document Revised: 01/21/2022 Document Reviewed: 01/21/2022 [employer] Patient Education 2022 [employer]. 05/26/2024 13:18:40 Heart Disease Prevention Heart Disease [...] of hard liquor (44 mL). Medicines Take fnfg-cmy-midyaxr and prescription medicines only as told by [...] Centers for Disease Control and Prevention: www.cdc.gov/heartdisease [place] Heart Association: www.heart.org Summary Heart disease is [...] provider. Document Revised: 07/17/2022 Document Reviewed: 07/17/2022 [employer] Patient Education 2022 [employer]. 05/26/2024 13:18:39 DASH Eating Plan DASH Eating [...] Dairy Whole or 2% milk, cream, and fzug-hpj-fnih. Whole or full-fat cream cheese. Whole-fat or [...] more information National Heart, Lung, and Blood [place]: www.nhlbi.nih.gov [place] Heart Association: www.heart.org Academy of Nutrition and [...] provider. Document Revised: 10/20/2020 Document Reviewed: 10/20/2020 [employer] Patient Education 2022 [employer] 05/26/2024 13:18:36 Genital Yeast Infection, Male Genital [...] instructions at home: Medicines Take or apply ijsk-rzw-auxmsbk and prescription medicines only as told by [...] provider. Document Revised: 11/13/2022 Document Reviewed: 11/13/2022 [employer] Patient Education 2022 [employer]. 05/26/2024 13:18:33 Hypothyroidism Hypothyroidism Hypothyroidism is when [...] away. Follow these instructions at home: Take ewjg-zig-igyhymd and prescription medicines only as told by [...] provider. Document Revised: 11/19/2022 Document Reviewed: 11/19/2022 [employer] Patient Education 2022 [employer]. Follow Up Care 10/30/2023 10:46:14 With:Vilma John FAM, MED Address: [address] [place] [address] Business (1) When:Within 3 Month(s) Comments:3 mo f/u for htn, hypothyroidism, depression [facility] 05-12-2024 Hospital Discharge instructions Patient [...] condition. Follow these instructions at home: Take abnm-pjv-tqvcvwn and prescription medicines only as told by [...] and water are not available, use hand technical publications manager. Avoid contact with people who have cold [...] it is easier to cough up. Take mden-kmj-uvzckiw and prescription medicines only as told by [...] provider. Document Revised: 02/27/2023 Document Reviewed: 03/20/2022 [employer] Patient Education 2022 [employer] 05/12/2024 15:56:49 Otitis Media With Effusion, Adult [...] few weeks. Home care treatment may include: Moan-ofp-aojiqia pain relievers. A warm, moist cloth placed over the ear. Severe cases may require a procedure to insert tubes in the ears (tympanostomy tubes) to drain the fluid. Follow these instructions at home: Take ktze-quy-ccfepca and prescription medicines only as told by [...] provider. Document Revised: 03/14/2022 Document Reviewed: 03/14/2022 [employer] Patient Education 2022 [employer] 05/12/2024 15:56:46 Varicose Veins Varicose Veins Varicose [...] Follow these instructions at home: Medicines Take tajf-lhj-fasrjlo and prescription medicines only as told by [...] provider. Document Revised: 05/01/2022 Document Reviewed: 05/01/2022 [employer] Patient Education 2022 [employer]. 05/12/2024 15:56:37 Fatigue Fatigue If you have [...] Follow these instructions at home: Medicines Take kcro-dsp-jgqdzlq and prescription medicines only as told by [...] the National Suicide Prevention Lifeline at or 457. This is open 24 hours a day. Text the Crisis Text Line at 881715. Summary If you have fatigue, you feel [...] provider. Document Revised: 09/09/2022 Document Reviewed: 09/09/2022 [employer] Patient Education 2022 [employer]. 05/12/2024 15:56:35 Community-Acquired Pneumonia, Adult Community-Acquired Pneumonia, [...] Follow these instructions at home: Medicines Take nxwk-hnp-exlqhbz and prescription medicines only as told by [...] and water are not available, use hand technical publications manager. Contact a health care provider if: You [...] provider. Document Revised: 01/15/2023 Document Reviewed: 01/15/2023 [employer] Patient Education 2022 [employer]. Follow Up Care 05/05/2024 10:40:01 With:Vilma John FAM, MED Address: [address], [facility] A [address] [address]- When:Within 2 Week(s) Comments:ear check , labs reviewed [facility] 04-14-2024 Hospital Discharge instructions Patient [...] medicines to help relieve symptoms, such as: Prro-lfv-sbprdzi cold medicines. Cough suppressants. Coughing is a [...] and other clear broths. General instructions Take ropx-zal-yuaigpo and prescription medicines only as told by [...] and water are not available, use hand technical publications manager. Avoid touching your mouth, face, eyes, or [...] provider. Document Revised: 06/19/2022 Document Reviewed: 06/19/2022 [employer] Patient Education 2022 [employer]. 04/14/2024 10:30:41 Acute Bronchitis, Adult Acute Bronchitis, [...] condition. Follow these instructions at home: Take qdhd-vzb-nroaoel and prescription medicines only as told by [...] and water are not available, use hand technical publications manager. Avoid contact with people who have cold [...] it is easier to cough up. Take ljyc-jlc-huspkxa and prescription medicines only as told by [...] provider. Document Revised: 02/27/2023 Document Reviewed: 03/20/2022 [employer] Patient Education 2022 [employer]. 04/14/2024 10:30:39 Cancer Screening for Women Cancer [...] if anything looks unusual. Women with a nxefrk-zodw-rttnbw risk for skin cancer may want to see a human resources specialist (gem carver) for an annual body check. What are the benefits of screening? Cancer screening is done to look for cancer in the very early stages, before it spreads and becomes harder to treat and before you would start to notice symptoms. Finding cancer early improves the chances of successful treatment. It may save your life. Where to find more information [place] Cancer Society: www.cancer.org Centers for Disease Control and Prevention: www.cdc.gov National Cancer [place]: www.cancer.gov U.S. Department of Health and Human [...] provider. Document Revised: 04/15/2022 Document Reviewed: 10/13/2020 [employer] Patient Education 2022 [employer]. Follow Up Care 04/12/2024 08:09:12 With:Vilma John FAM, [facility] Address: [address] [place], [place] [id number]- When:Within 1 Week(s) [facility] 02-06-2024 Hospital Discharge instructions Patient [...] to strengthen the arm. General instructions Take bmwv-rra-mrovbsz and prescription medicines only as told by [...] provider. Document Revised: 08/02/2022 Document Reviewed: 08/02/2022 [employer] Patient Education 2022 [employer]. 02/06/2024 11:57:02 Degenerative Disk Disease Degenerative Disk [...] Follow these instructions at home: Medicines Take gusc-xio-ndsjivd and prescription medicines only as told by your health care provider. Ask your health care provider if the medicine prescribed to you: ?Requires you to avoid driving or using machinery. ?Can cause constipation. You may need to take these actions to prevent or treat constipation: ?Drink enough fluid to keep your urine pale yellow. ?Take nuln-fqk-synjclc or prescription medicines. ?Eat foods that are [...] lower back are most often affected. Take xizm-cfz-zrqdnej and prescription medicines only as told by your health care provider. This information is not intended to replace advice given to you by your health care provider. Make sure you discuss any questions you have with your health care provider. Document Revised: 03/01/2021 Document Reviewed: 03/01/2021 [employer] Patient Education 2022 [employer]. 02/06/2024 11:56:38 Major Depressive Disorder, Adult Major [...] things, which may include: Your personality traits. Conrad or conditioned behaviors or thoughts or feelings [...] your health care provider. General instructions Take zecf-myo-jnzkelj and prescription medicines only as told by your health care provider. Eat a healthy diet and get plenty of sleep. Consider joining a support group. Your health care provider may be able to recommend one. Keep all follow-up visits as told by your health care provider. This is important. Where to find more information [place] on Mental Illness: www.julia.org U.[place]. National [place] of Mental Health: www.nimh.nih.gov Contact a health [...] department or: Call your local emergency services (294 in the [place] Call a suicide crisis helpline, such as the National Suicide Prevention Lifeline at or 942 in the [place]. This is open 24 hours a day in the [place] Text the Crisis Text Line at 203328 (in the [place].S[place] Summary Major depressive disorder [...] provider. Document Revised: 06/12/2022 Document Reviewed: 10/28/2020 [employer] Patient Education 2022 [employer]. 02/06/2024 11:56:36 Hypothyroidism Hypothyroidism Hypothyroidism is when [...] away. Follow these instructions at home: Take rsko-ohj-rrcxsfy and prescription medicines only as told by [...] provider. Document Revised: 11/19/2022 Document Reviewed: 11/19/2022 [employer] [facility] [address] [facility] Hospital Discharge instructions [...] things, which may include: Your personality traits. Conrad or conditioned behaviors or thoughts or feelings [...] your health care provider. General instructions Take jpzh-tzm-iyojmhv and prescription medicines only as told by your health care provider. Eat a healthy diet and get plenty of sleep. Consider joining a support group. Your health care provider may be able to recommend one. Keep all follow-up visits as told by your health care provider. This is important. Where to find more information [place] on Mental Illness: www.julia.org [place]. National [place] of Mental Health: www.nimh.nih.gov Contact a health [...] department or: Call your local emergency services (324 in the [place] Call a suicide crisis helpline, such as the National Suicide Prevention Lifeline at or 551 in the [place]. This is open 24 hours a day in the [place] Text the Crisis Text Line at 723898 (in the [place].S.). Summary Major depressive disorder [...] provider. Document Revised: 06/12/2022 Document Reviewed: 10/28/2020 [employer] Patient Education 2022 [employer]. 01/15/2024 18:54:21 Cough, Adult Cough, Adult Coughing [...] Follow these instructions at home: Medicines Take jpiw-vdq-jwbezwk and prescription medicines only as told by [...] of a condition that needs treatment. Take llyo-xsh-itkxmeo and prescription medicines only as told by [...] provider. Document Revised: 12/06/2019 Document Reviewed: 12/06/2019 [employer] Patient Education 2022 [employer]. 01/15/2024 18:54:18 Vitamin B12 Deficiency Vitamin B12 [...] added to them (are fortified), such as xiqbc-ns-fah breakfast cereals. Check the label on the [...] provider. Document Revised: 07/12/2022 Document Reviewed: 07/12/2022 [employer] Patient Education 2022 [employer]. 01/15/2024 18:54:15 Paresthesia Paresthesia Paresthesia is an [...] hard liquor (44 mL). General instructions Take qibh-pzm-hjejnbn and prescription medicines only as told by [...] provider. Document Revised: 07/29/2022 Document Reviewed: 07/29/2022 [employer] Patient Education 2022 [employer]. 01/15/2024 18:54:13 Cervical Radiculopathy Cervical Radiculopathy Cervical [...] your health care provider. Managing pain Take zaka-him-ibbyqwu and prescription medicines only as told by [...] provider. Document Revised: 05/23/2022 Document Reviewed: 05/23/2022 [employer] Patient Education 2022 [employer]. 01/15/2024 18:54:09 Migraine Headache Migraine Headache A [...] Follow these instructions at home: Medicines Take upqt-uoa-dngludw and prescription medicines only as told by your health care provider. Ask your health care provider if the medicine prescribed to you: ?Requires you to avoid driving or using heavy machinery. ?Can cause constipation. You may need to take these actions to prevent or treat constipation: ?Drink enough fluid to keep your urine pale yellow. ?Take tnum-xhh-hczfbwn or prescription medicines. ?Eat foods that are [...] provider. Document Revised: 03/10/2020 Document Reviewed: 12/30/2019 [employer] Patient Education 2022 [employer]. Follow Up Care 01/12/2024 07:56:41 With:Vilma John FAM, [facility] [address] [facility] [address] [address]- When:Within 1 Month(s) Comments:f/u labs, results from MRI, neurochanges and migraines, persistent cough [facility] 10-30-2023 Hospital Discharge instructions Patient [...] told by your health care provider. Take fguw-bxq-ueilwpp and prescription medicines only as told by [...] provider. Document Revised: 05/03/2021 Document Reviewed: 05/03/2021 [employer] Patient Education 2022 [employer]. 10/30/2023 11:25:43 Preventing Vitamin D Deficiency Preventing [...] such as almond, soy, or oat milks. ?[place] juice. ?Margarine. When choosing foods, check the [...] including vitamins, herbs, eye drops, creams, and qaqc-pkv-scftbhs medicines. Take qkis-axl-gezxrjb and prescription medicines only as told by [...] provider. Document Revised: 08/23/2022 Document Reviewed: 08/23/2022 [employer] Patient Education 2022 [employer]. 10/30/2023 11:25:38 DASH Eating Plan DASH Eating [...] Dairy Whole or 2% milk, cream, and ejyu-vgx-czoa. Whole or full-fat cream cheese. Whole-fat or [...] more information National Heart, Lung, and Blood [place]: www.nhlbi.nih.gov [place] Heart Association: www.heart.org Academy of Nutrition and [...] provider. Document Revised: 10/20/2020 Document Reviewed: 10/20/2020 [employer] Patient Education 2022 [employer]. 10/30/2023 11:25:37 Major Depressive Disorder, Adult Major [...] things, which may include: Your personality traits. Conrad or conditioned behaviors or thoughts or feelings [...] your health care provider. General instructions Take ifst-zro-drjzquj and prescription medicines only as told by your health care provider. Eat a healthy diet and get plenty of sleep. Consider joining a support group. Your health care provider may be able to recommend one. Keep all follow-up visits as told by your health care provider. This is important. Where to find more information National [place] on Mental Illness: www.julia.org [place]. National [place] of Mental Health: www.nimh.nih.gov Contact a health [...] department or: Call your local emergency services (055 in the [place] Call a suicide crisis helpline, such as the National Suicide Prevention Lifeline at or 285 in the [place] This is open 24 hours a day in the [place] Text the Crisis Text Line at 646459 (in the [place] Summary Major depressive disorder [...] provider. Document Revised: 06/12/2022 Document Reviewed: 10/28/2020 [employer] Patient Education 2022 [employer]. Follow Up Care 09/26/2023 10:41:21 With:Vilma John FAM, [facility] Address: [address], [facility] A [facility] [address] [place] [address]- Business (1) When:02/04/2024 Comments:for f/u [facility] 09-26-2023 Hospital Discharge instructions Patient [...] things, which may include: Your personality traits. Conrad or conditioned behaviors or thoughts or feelings [...] your health care provider. General instructions Take qdrw-ybu-ulihyfo and prescription medicines only as told by your health care provider. Eat a healthy diet and get plenty of sleep. Consider joining a support group. Your health care provider may be able to recommend one. Keep all follow-up visits as told by your health care provider. This is important. Where to find more information National [place] on Mental Illness: www.julia.org [place] National [place] of Mental Health: www.nimh.nih.gov Contact a health [...] department or: Call your local emergency services (270 in the [place] Call a suicide crisis helpline, such as the National Suicide Prevention Lifeline at or 373 in the [place] This is open 24 hours a day in the [place] Text the Crisis Text Line at 829052 (in the [place] Summary Major depressive disorder [...] provider. Document Revised: 06/12/2022 Document Reviewed: 10/28/2020 [employer] Patient Education 2022 [employer]. 09/26/2023 10:39:53 Insomnia Insomnia Insomnia is a [...] go back to bed. General instructions Take tqkv-tki-ryyubzv and prescription medicines only as told by [...] the National Suicide Prevention Lifeline at or 160. This is open 24 hours a day. Text the Crisis Text Line at 819971. Summary Insomnia is a sleep disorder that [...] provider. Document Revised: 10/28/2022 Document Reviewed: 10/28/2022 [employer] Patient Education 2022 [employer]. 09/26/2023 10:39:44 Heart Disease Prevention Heart Disease [...] of hard liquor (44 mL). Medicines Take gxnl-zvx-jjhyius and prescription medicines only as told by [...] Centers for Disease Control and Prevention: www.cdc.gov/heartdisease [place] Heart Association: www.heart.org Summary Heart disease is [...] provider. Document Revised: 07/17/2022 Document Reviewed: 07/17/2022 [employer] Patient Education 2022 [employer] 09/26/2023 10:39:43 Form - Blood Pressure Record [...] provider. Document Revised: 08/01/2022 Document Reviewed: 08/01/2022 [employer] Patient Education 2022 [employer]. 09/26/2023 10:39:42 DASH Eating Plan DASH Eating [...] Dairy Whole or 2% milk, cream, and qbwt-ulz-ayyj. Whole or full-fat cream cheese. Whole-fat or [...] more information National Heart, Lung, and Blood [place]: www.nhlbi.nih.gov [place] Heart Association: www.heart.org Academy of Nutrition and [...] provider. Document Revised: 10/20/2020 Document Reviewed: 10/20/2020 [employer] Patient Education 2022 [employer]. 09/26/2023 10:39:41 Acute Bronchitis, Adult Acute Bronchitis, [...] condition. Follow these instructions at home: Take vlhy-tia-sujvtem and prescription medicines only as told by [...] and water are not available, use hand technical publications manager. Avoid contact with people who have cold [...] it is easier to cough up. Take dryi-sff-wuocwdt and prescription medicines only as told by [...] provider. Document Revised: 03/20/2022 Document Reviewed: 03/20/2022 [employer] Patient Education 2022 [employer]. Follow Up Care 09/19/2023 09:43:18 With:Vilma John FAM, [facility] Address: [address], [facility] [address] [place] [id number]- When:Within 1 Month(s) Comments:Discussed labs, annual wellness [facility] 06-29-2023 Hospital Discharge instructions Patient [...] follow-up visits. This is important. Medicines Take nsnd-eei-cybnhft and prescription medicines only as told by [...] provider. Document Revised: 09/24/2022 Document Reviewed: 09/24/2022 [employer] Patient Education 2022 [employer]. 06/29/2023 16:49:29 Health Maintenance, Female Health Maintenance, [...] provider. Document Revised: 04/08/2022 Document Reviewed: 04/08/2022 [employer] Patient Education 2022 [employer]. 06/29/2023 16:49:28 Health Maintenance After Age 65 [...] of the medicines you are taking, including zimk-sba-kxhlqjc medicines. Ask your health care provider about [...] feel dizzy, tiredness (fatigue), or off-balance. Take giot-klu-fnbqdcm and prescription medicines only as told by [...] provider. Document Revised: 04/08/2022 Document Reviewed: 04/08/2022 [employer] Patient Education 2022 [employer]. Follow Up Care 05/20/2023 09:31:12 With:Camryn Alves Address: [address] [place] [address]- When:Within 1 Month(s) Comments:f/u CHRISTIANO, med recheck: hydroxyzine. recheck BP With:Camryn Alves Address: [facility] [place] [address]- When:Within 6 Month(s) Comments:[facility] 12-17-2022 Evaluation + Plan note Future Scheduled TestsVitamin D 25 Hydroxy 12/17/22 [facility] [place] 08-02-2021 Evaluation + Plan note Future Scheduled TestsUS Breast Unilateral Rt Complete 08/02/21 [facility] 04-09-2021 Note HNO ID: [id number] Author: Cristin La, RT(R) Service: ? Author Type: Barrel Planer Type: Progress Notes Filed: 04/09/2021 3:21 PM [...] RT Quintin(R) April 09, 2021 3:21 PM [facility] 04-09-2021 Note HNO ID: [id number] Author: Nico Newell MD Service: ? Author Type: Physician Type: Progress Notes Filed: 04/09/2021 5:09 PM Note Text: NEW CONSULT:RHEUMATOLOGY SERVICE SERVICE DATE: 04/09/2021 SERVICE TIME: 2:09 PM REASON FOR CONSULT: +YOSELIN REQUESTING PHYSICIAN: Cristin Roblero CNP [address] [facility] [address] PRIMARY CARE PHYSICIAN: Cristin Roblero CNP, EQUIPMENT OPERATOR Patient's Name: Kermit Rosen 1950 [address] [facility] [address] Accompanied by: self This consult was requested for my medical opinion regarding the rheumatologic evaluation of the patient's +YOSELIN problems, and my final recommendations will be communicated to the requesting health care provider by way of the shared medical record for internal providers or letter via the [employer] for external providers. 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 [facility] Evaluation + Plan note Future Appointments Appointment Date:09/12/2022 10:20:00 AM Scheduled Provider:Malinda Rubio NP Location:[facility] Appointment Type: Open Diagnostic Tests PendingT3 Free 09/07/22Estradiol Level 09/07/22Estrogens Total 09/07/22Testosterone F&T 09/07/22Progesterone Level 09/07/22DHEA 09/07/22DHEAS 09/07/22 [facility] Evaluation + Plan note Future Appointments Appointment Date:01/28/2023 10:20:00 AM Scheduled Provider:Cory JOSHUA MD Location:[facility] Appointment Type:GS Post Op 15 [facility] Evaluation + Plan note Future Appointments Appointment Date:09/22/2023 11:00:00 AM Scheduled Provider:Camryn Alves Location:[facility] Appointment Type:FM Open Future Scheduled TestsTSH With T4fr Reflex 08/19/23Vitamin D 25 Hydroxy 08/19/23CBC w/ Auto Diff 08/19/23Comprehensive Metabolic Panel 08/19/23Lipid Panel 08/19/23XR Chest 2 Views 08/19/23 [facility] Evaluation + Plan note Future Appointments Appointment Date:10/29/2023 10:00:00 AM Scheduled Provider:Vilma John Location:[facility] Appointment Type: Open Future Scheduled TestsDHEA 09/26/23Estrogens Total 09/26/23TSH With T4fr Reflex 08/19/23Vitamin D 25 Hydroxy 08/19/23CBC w/ Auto Diff 08/19/23CBC w/ Auto Diff 09/26/23Comprehensive Metabolic Panel 08/19/23Comprehensive Metabolic Panel 09/26/23Lipid Panel 08/19/23Lipid Panel 09/26/23Progesterone Level 09/26/23Testosterone Level Total 09/26/23 [facility] Evaluation + Plan note Future Appointments Appointment Date:10/29/2023 10:00:00 AM Scheduled Provider:Vilma John Location:[facility] Appointment Type:FM Open Diagnostic Tests PendingProgesterone Level 10/18/23Estrogens Total 10/18/23Testosterone Level Total 10/18/23DHEA 10/18/23 Future Scheduled TestsTSH With T4fr Reflex 08/19/23Vitamin D 25 Hydroxy 08/19/23CBC w/ Auto Diff 08/19/23Comprehensive Metabolic Panel 08/19/23Lipid Panel 08/19/23 [facility] Evaluation + Plan note Future Appointments Appointment Date:05/26/2024 11:20:00 AM Scheduled Provider:Vilma John Location:[facility] Appointment Type: Open Appointment Date:05/26/2024 01:00:00 PM Scheduled Provider: Location:[facility] Appointment Type: Medicare Wellness Subsequent Future Scheduled TestsTSH With T4fr Reflex 10/30/23TSH With T4fr Reflex 08/19/23Vitamin D 25 Hydroxy 10/30/23Vitamin D 25 Hydroxy 08/19/23CBC w/ Auto Diff 08/19/23Comprehensive Metabolic Panel 08/19/23Lipid Panel 08/19/23 [facility] Evaluation + Plan note Future Appointments Appointment Date:05/26/2024 11:20:00 AM Scheduled Provider:Vilma John Location:[facility] Appointment Type: Open Appointment Date:05/26/2024 01:00:00 PM Scheduled Provider: Location:[facility] Appointment Type: Medicare Wellness Subsequent Future Scheduled TestsSedimentation Rate Automated 01/15/24TSH With T4fr Reflex 10/30/23TSH With T4fr Reflex 08/19/23Vitamin D 25 Hydroxy 10/30/23Vitamin D 25 Hydroxy 08/19/23CBC w/ Auto Diff 08/19/23C-Reactive Protein 01/15/24Free T4 01/15/24Vitamin B12 Level 01/15/24MRA Neck w/o Contrast 01/15/24MRI Brain w/ + w/o Contrast 01/15/24MRI Spine Cervical w/o Contrast 01/15/24 [facility] Evaluation + Plan note Future Appointments Appointment Date:01/22/2024 06:00:00 PM Scheduled Provider: [facility] Brain (FT) Appointment Date:05/26/2024 11:20:00 AM Scheduled Provider:Vilma John Location:[facility] Appointment Type:FM Open Appointment Date:05/26/2024 01:00:00 PM Scheduled Provider: Location:[facility] Appointment Type: Medicare Wellness Subsequent Future Scheduled TestsSedimentation Rate Automated 01/15/24TSH With T4fr Reflex 10/30/23TSH With T4fr Reflex 08/19/23Vitamin D 25 Hydroxy 10/30/23Vitamin D 25 Hydroxy 08/19/23CBC w/ Auto Diff 08/19/23C-Reactive Protein 01/15/24Free T4 01/15/24Vitamin B12 Level 01/15/24MRI Brain w/ + w/o Contrast 01/22/24 [facility] Evaluation + Plan note Future Appointments Appointment Date:05/26/2024 11:20:00 AM Scheduled Provider:Vilma John Location:[facility] Appointment Type: Open Appointment Date:05/26/2024 01:00:00 PM Scheduled Provider: Location:[facility] Appointment Type: Medicare Wellness Subsequent Future Scheduled TestsSedimentation Rate Automated 01/15/24TSH With T4fr Reflex 10/30/23TSH With T4fr Reflex 08/19/23Vitamin D 25 Hydroxy 10/30/23Vitamin D 25 Hydroxy 23CBC w/ Auto Diff 08/19/23C-Reactive Protein 01/15/24Free T4 01/15/24Vitamin B12 Level 01/15/24 [facility] Evaluation + Plan note Future Appointments Appointment Date:05/26/2024 11:20:00 AM Scheduled Provider:[facility]ilma John [facility] Type: Open Appointment Date:05/26/2024 01:00:00 PM Scheduled Provider: Location:[facility] Appointment Type: Medicare Wellness Subsequent Future Scheduled TestsTSH With T4fr Reflex 10/30/23TSH With T4fr Reflex 23Vitamin D 25 Hydroxy 23Vitamin D 25 Hydroxy 19/23CBC w/ Auto Diff 08/19/23 [facility] Evaluation + Plan note Future Appointments Appointment Date:05/12/2024 02:40:00 PM Scheduled Provider:Vilma John [facility] Appoint[facility] Type: Open Appointment Date:05/26/2024 11:20:00 AM Scheduled Provider:Vilma John Location:[facility] Appointment Type: Open Appointment Date:05/26/2024 01:00:00 PM Scheduled Provider: Location:[facility] Appointment Type: Medicare Wellness Subsequent Future Scheduled TestsTSH With T4fr Reflex 10/30/23TSH With T4fr Reflex 08/19/23Vitamin D 25 Hydroxy 10/30/23Vitamin D 25 Hydroxy 08/19/23CBC w/ Auto Diff 08/19/23 [facility] [place] Evaluation + Plan note Future Appointments Appointment Date:05/26/2024 11:20:00 AM Scheduled Provider:Vilma John Location:[facility] Appointment Type: Open Appointment Date:05/26/2024 01:00:00 PM Scheduled Provider: Location:[facility] Appointment Type: Medicare Wellness Subsequent Future Scheduled TestsIgE, Quant 05/12/24Complement Total (CH50) 05/12/24ANA w/Reflex if POS 05/12/24IgA, Quant. 05/12/24IgG, Quant. 05/12/24IgM, Quant 05/12/24TSH With T4fr Reflex 08/19/23TSH With T4fr Reflex 05/12/24Vitamin D 25 Hydroxy 08/19/23Vitamin D 25 Hydroxy 05/12/24Basic Metabolic Panel 05/12/24CBC w/ Auto Diff 08/19/23CBC w/ Auto Diff 05/12/24 [facility] Evaluation + Plan note Future Appointments Appointment Date:05/26/2024 11:20:00 AM Scheduled Provider:Vilma John Location:[facility] Appointment Type: Open Appointment Date:05/26/2024 01:00:00 PM Scheduled Provider: Location:[facility] Appointment Type:FM Medicare Wellness Subsequent Diagnostic Tests PendingVitamin D 25 Hydroxy 05/13/24IgA, Quant. 05/13/24IgG, Quant. 05/13/24IgM, Quant 05/13/24IgE, Quant 05/13/24ANA w/Reflex if POS 05/13/24Complement Total (CH50) 05/13/24 Future Scheduled TestsTSH With T4fr Reflex 08/19/23Vitamin D 25 Hydroxy 08/19/23CBC w/ Auto Diff 08/19/23 [facility] Evaluation + Plan note Future Appointments Appointment Date:08/25/2024 10:00:00 AM Scheduled Provider:Vilma John Location:[facility] Appointment Type:FM Open Appointment Date:05/25/2025 02:30:00 PM Scheduled Provider: Location:[facility] Appointment Type:FM Medicare Wellness Subsequent Future Scheduled TestsTSH With T4fr Reflex 08/19/23Vitamin D 25 Hydroxy 08/19/23CBC w/ Auto Diff 08/19/23 [facility] Evaluation + Plan note Future Appointments Appointment Date:05/25/2025 02:30:00 PM Scheduled Provider: Location:[facility] Appointment Type:FM Medicare Wellness Subsequent [facility] Evaluation + Plan note Future Appointments Appointment Date:11/03/2024 01:40:00 PM Scheduled Provider:Vilma John Location:[facility] Appointment Type:FM Open Appointment Date:05/25/2025 02:30:00 PM Scheduled Provider: Location:[facility] Appointment Type: Medicare Wellness Subsequent [facility] Evaluation note Diagnosis Bilateral hand pain Pain in limb [facility] note[facility] information availableB[facility] Work Phone: Evaluation note* Diagnosis Coronary artery disease, non-occlusive Coronary atherosclerosis of unspecified type of vessel, [place] or graft Dyslipidemia Other and unspecified hyperlipidemia Essential hypertension Unspecified essential hypertension Mitral valve insufficiency, unspecified etiology Hypothyroidism, unspecified type BMI 23.0-23.9, adult Never smoked tobacco documented in this encounter [facility] Work Phone: Hospital course Narrative No data available for this section [facility] No data available for this section [facility] No data available for this section [facility] Summary Purpose Family History No Family [...] mild and insignificant mitral regurgitation by echocardiogram 2017 * KERMIT ROSEN is being seen for [...] mild and insignificant mitral regurgitation by echocardiogram 2017 Chief Complaint and Reason for Visit Chief Complaint e78.5 i10 i25.10 i34 .0 Chief Complaint Z85.3 Additional Source Comments INFORMATION SOURCE (unrecogn ized section and content) DATE CREATED AUTHOR 05/26/2018 [facility] DATE CREATED AUTHOR AUTHOR'S ORGANIZ ATION 11/11/2019 [facility] DATE CREATED AUTHOR AUTHOR'S ORGANIZ ATION 2022 [facility] DATE CREATED AUTHOR AUTHOR'S ORGANIZ ATION 04/11/2023 [facility] DATE CREATED AUTHOR AUTHOR'S ORGANIZ ATION 07/16/[address] [facility] DATE CREATED AUTHOR AUTHOR'S ORGANIZ ATION 07/16/2023 [facility] DATE CREATED AUTHOR AUTHOR'S ORGANIZ ATION 05/15/2024 [facility] DATE CREATED AUTHOR AUTHOR'S ORGANIZ ATION 05/16/2024 [facility] DATE CREATED AUTHOR AUTHOR'S ORGANIZ ATION 05/21/2024 [facility] DATE CREATED AUTHOR AUTHOR'S ORGANIZ ATION 05/27/2024 [facility] DATE CREATED AUTHOR AUTHOR'S ORGANIZ ATION 08/27/2024 [facility] DATE CREATED AUTHOR AUTHOR'S ORGANIZ ATION 09/16/2024 [facility] DATE CREATED AUTHOR AUTHOR'S ORGANIZ ATION 10/12/2024 [facility] tals Ambulatory DATE CREATED AUTHOR AUTHOR'S ORGANIZ ATION 10/20/2024 Ry Rosario [facility] Care Team (unrecognized sect ion and content) Comfort Filler Relationship Specialty Start Date End Date Cristin Roblero EQUIPMENT OPERATOR [address] [place] [address] PCP - General Family Medicine 11/20/20 Team Status: Active Member Role Status Dates Camryn De La Rosa , WEB MASTER-C Primary Care Provider Act franc Team Status: Inactive Member Role Status Dates Camryn De La Rosa NP-C Primary Care Provider Act franc Jay Jay Mariscal MD Attending Provider Active Team Status: Inactive Member Role Status Dates Ryley Marinelli Attending Provider Active Camryn De La Rosa WEB MASTER-C Primary Care Provider Act franc Comfort Filler Relationship Specialty Start Date End Date Vilma Mcallister NP [address] [place] [address] Referring Physician Family Medicine 11/13/23 Source Comments (unrecognize d section and content) In the event this informatio n is protected by the Federal Confidentiality of Alcohol and Drug Abuse Patient Records regulations: The Federal rules restrict any use of the information to criminally investigate or prosecute any alcohol or drug abuse patient.[facility] Goals (unrecognized section and content) Goals may be documented in a n alternate section Reason for Visit (unrecogniz ed section and content) Reason Comments Annual Exam FOR RECORDS PERTAINING TO PATIENTS WHO ARE [...] BE BASED ON THE PRIMARY CLINICAL RECORDS. [facility] [employer] [facility]. provides no warranty or guarantee of the accuracy or completeness of information in this document.
--- NOTE | 2024-10-29 13:04 | XR_ITS ---
The [address] [address] Patient Name: KERMIT ALBERT MRN: [id number] date: 1950 Sex: F Assigned Patient Location: [facility] Current Patient Location: [facility] Accession/Order Number: [id number] Exam Date: 10/29/2024 13:40 Report Date: 10/29/2024 15:19 At the request of: AZAM CALDWELL Procedure: XR chest 2V EXAM: XR chest 2V HISTORY: Preop exam COMPARISON: 09/10/2024 TECHNIQUE: Upright PA and lateral chest x-ray FINDINGS: The heart is not enlarged and the vasculature is not distended. No acute infiltrate, effusion or pneumothorax is identified. Focal eventration of the right hemidiaphragm is noted. Flattening of the hemidiaphragms suggest COPD. The osseous structures are grossly intact. XR/XR chest 2V IMPRESSION: No acute infiltrate or evidence of cardiac decompensation. The overall appearance of the chest is essentially unchanged. Electronically authenticated by: CORWIN LEMA Date: 10/29/2024 15:19
[2024-10-29 13:18] LABS: Basophils Percent Auto 0.5 % (0.2-2.0); Eosinophils Percent Auto 0.7 % (0.9-7.0); Hematocrit 38.9 % (36.0-48.0); Hemoglobin 13.1 g/dL (12.0-16.0); Immature Granulocytes Abs Auto 0.01 10^3/uL (0.00-0.03); Immature Granulocytes Pct Auto 0.2 % (0.0-0.5); Lymphocytes Absolute Auto 1.7 10^3/uL (1.2-3.8); Lymphocytes Percent Auto 30.4 % (20.5-60.0); Mean Corpuscular HGB Conc 33.7 g/dL (29.9-35.2); Mean Corpuscular Hemoglobin 30.5 pg (26.7-34.0); Mean Corpuscular Volume 90.5 fL (81.0-99.0); Mean Platelet Volume 10.6 fL (9.5-13.5); Monocytes Absolute Auto 0.5 10^3/uL (0.3-0.8); Monocytes Percent Auto 8.7 % (1.7-12.0); Neutrophils Absolute Auto 3.4 10^3/uL (1.4-6.5); Neutrophils Percent Auto 59.5 % (43.0-75.0); Platelet Count 249 10^3/uL (150-450); Red Cell Distribution Width 12.9 % (11.0-15.0); White Blood Count 5.7 10^3/uL (4.0-11.0)
--- NOTE | 2024-10-29 13:22 | P.GSHP_ITS ---
History of Present Illness History of Present Illness Chief complaint: thickened endometrium Narrative: Presents to preadmission testing after evaluation with noted endometrial thickening she desires to move forward with surgical management and undergo fractional D&C and hysteroscopy with possible MyoSure scheduled with Dr. Ryley Marinelli on November 05, 2024 [facility] Medical History (Updated 10/29/24 @ 12:56 by Cha Hickey) Pneumonia (10/15/24) ?J18.9 - Pneumonia, unspecified organism (ICD-10) Pneumonia (05/2024) ?J18.9 - Pneumonia, unspecified organism (ICD-10) Dyslipidemia ?E78.5 - Hyperlipidemia, unspecified (ICD-10) Mitral valve insufficiency ?I34.0 - Nonrheumatic mitral (valve) insufficiency (ICD-10) Endometrial mass ?N94.89 - Other specified conditions associated with female genital organs and menstrual cycle (ICD-10) Rectocele ?N81.6 - Rectocele (ICD-10) Osteoporosis ?M81.0 - Age-related osteoporosis without current pathological fracture (ICD- 10) Vertigo ?R42 - Dizziness and giddiness (ICD-10) GERD (gastroesophageal reflux disease) ?K21.9 - Gastro-esophageal reflux disease without esophagitis (ICD-10) Abnormal uterine bleeding ?N93.9 - Abnormal uterine and vaginal bleeding, unspecified (ICD-10) Breast cancer ?C50.919 - Malignant neoplasm of unspecified site of unspecified female breast (ICD-10) Arthritis ?M19.90 - Unspecified osteoarthritis, unspecified site (ICD-10) History of blood transfusion ?Z92.89 - Personal history of other medical treatment (ICD-10) Anemia ?D64.9 - Anemia, unspecified (ICD-10) Sleep disorder ?G47.9 - Sleep disorder, unspecified (ICD-10) Anxiety ?F41.9 - Anxiety disorder, unspecified (ICD-10) COVID-19 ?U07.1 - COVID-19 (ICD-10) Bronchitis ?J40 - Bronchitis, not specified as acute or chronic (ICD-10) Migraine ?G43.909 - Migraine, unspecified, not intractable, without status migrainosus (ICD-10) Kidney stones ?N20.0 - Calculus of kidney (ICD-10) Dyspnea on exertion ?R06.09 - Other forms of dyspnea (ICD-10) Coronary artery disease ?I25.10 - Atherosclerotic heart disease of [place] coronary artery without angina pectoris (ICD-10) Hypertension ?I10 - Essential (primary) hypertension (ICD-10) Hypothyroidism ?E03.9 - Hypothyroidism, unspecified (ICD-10) Thickened endometrium ?R93.89 - Abnormal findings on diagnostic imaging of other specified body structures (ICD-10) Surgical History (Updated 09/10/24 @ 10:45 by Opal Hunt NP) H/O dilation and curettage (06/30/23) ?Z98.890 - Other specified postprocedural states (ICD-10) History of cardiac catheterization ?Z98.890 - Other specified postprocedural states (ICD-10) History of colonoscopy ?Z98.890 - Other specified postprocedural states (ICD-10) History of tonsillectomy ?Z90.89 - Acquired absence of other organs (ICD-10) History of tubal ligation ?Z98.51 - Tubal ligation status (ICD-10) S/P breast lumpectomy ?Z98.890 - Other specified postprocedural states (ICD-10) History of breast biopsy ?Z98.890 - Other specified postprocedural states (ICD-10) Family History (Updated 10/29/24 @ 12:56 by Cha Hickey) Other Family history of breast cancer Family history of colon cancer Family history of diabetes mellitus Family history of heart disease Family history of hypertension Family history of myocardial infarction Family history of stroke Social History (Updated 06/18/23 @ 13:36 by Opal Hunt NP) Within the past year, how often did you have a drink containing alcohol: monthly or less Smoking status: Never smoker Non-prescribed substance use: denies use Highest level of school completed/degree received: high school graduate Meds Home Medications and Allergies Home Medications ?Medication ?Instructions ?Recorded ?Confirmed ?Type aspirin 81 mg tablet,delayed 81 mg PO DAILY 06/18/23 09/10/24 History release (Adult Aspirin Regimen) metoprolol succinate 50 mg 50 mg PO QPM 06/18/23 09/10/24 History tablet,extended release 24 hr nitroglycerin 0.4 mg sublingual 0.4 mg sublingual Q5M PRN chest 06/18/23 09/10/24 History tablet pain sertraline 50 mg tablet 50 mg PO QPM 06/18/23 09/10/24 History thyroid (pork) 30 mg tablet ([employer] LEAD 30 mg PO QDAY 06/18/23 09/10/24 History Thyroid) valsartan 160 mg tablet 160 mg PO QDAY 06/18/23 09/10/24 History nitric oxide PO 09/10/24 History Allergies Allergy/AdvReac Type Severity Reaction Status Date / Time benzonatate Allergy Unknown Verified 10/29/24 12:49 citalopram (From Celexa) Allergy Unknown Verified 10/29/24 12:49 diclofenac Allergy Hypertensio Verified 10/29/24 12:49 n doxycycline Allergy Unknown Verified 10/29/24 12:49 hydrochlorothiazide Allergy hypokalemia Verified 10/29/24 12:49 lisinopril Allergy unknown Verified 10/29/24 12:49 propranolol Allergy Unknown Verified 10/29/24 12:49 Assessment and Plan Assessment and Plan (1) Endometrial mass: Plan Scheduled procedure with Dr. Ryley Marinelli fractional D&C hysteroscopy with pos sible MyoSure scheduled on 11/05/2024
--- NOTE | 2024-10-29 13:30 | PM.PRESUREVA ---
History of Present Illness History of Present Illness Chief complaint: thickened endometrium [facility] Medical History (Updated 10/29/24 @ 12:56 by Cha Hickey) Pneumonia (10/15/24) ?J18.9 - Pneumonia, unspecified organism (ICD-10) Pneumonia (05/2024) ?J18.9 - Pneumonia, unspecified organism (ICD-10) Dyslipidemia ?E78.5 - Hyperlipidemia, unspecified (ICD-10) Mitral valve insufficiency ?I34.0 - Nonrheumatic mitral (valve) insufficiency (ICD-10) Endometrial mass ?N94.89 - Other specified conditions associated with female genital organs and menstrual cycle (ICD-10) Rectocele ?N81.6 - Rectocele (ICD-10) Osteoporosis ?M81.0 - Age-related osteoporosis without current pathological fracture (ICD-10) Vertigo ?R42 - Dizziness and giddiness (ICD-10) GERD (gastroesophageal reflux disease) ?K21.9 - Gastro-esophageal reflux disease without esophagitis (ICD-10) Abnormal uterine bleeding ?N93.9 - Abnormal uterine and vaginal bleeding, unspecified (ICD-10) Breast cancer ?C50.919 - Malignant neoplasm of unspecified site of unspecified female breast (ICD-10) Arthritis ?M19.90 - Unspecified osteoarthritis, unspecified site (ICD-10) History of blood transfusion ?Z92.89 - Personal history of other medical treatment (ICD-10) Anemia ?D64.9 - Anemia, unspecified (ICD-10) Sleep disorder ?G47.9 - Sleep disorder, unspecified (ICD-10) Anxiety ?F41.9 - Anxiety disorder, unspecified (ICD-10) COVID-19 ?U07.1 - COVID-19 (ICD-10) Bronchitis ?J40 - Bronchitis, not specified as acute or chronic (ICD-10) Migraine ?G43.909 - Migraine, unspecified, not intractable, without status migrainosus (ICD-10) Kidney stones ?N20.0 - Calculus of kidney (ICD-10) Dyspnea on exertion ?R06.09 - Other forms of dyspnea (ICD-10) Coronary artery disease ?I25.10 - Atherosclerotic heart disease of [place] coronary artery without angina pectoris (ICD-10) Hypertension ?I10 - Essential (primary) hypertension (ICD-10) Hypothyroidism ?E03.9 - Hypothyroidism, unspecified (ICD-10) Thickened endometrium ?R93.89 - Abnormal findings on diagnostic imaging of other specified body structures (ICD-10) Surgical History (Updated 09/10/24 @ 10:45 by Opal Hunt NP) H/O dilation and curettage (06/30/23) ?Z98.890 - Other specified postprocedural states (ICD-10) History of cardiac catheterization ?Z98.890 - Other specified postprocedural states (ICD-10) History of colonoscopy ?Z98.890 - Other specified postprocedural states (ICD-10) History of tonsillectomy ?Z90.89 - Acquired absence of other organs (ICD-10) History of tubal ligation ?Z98.51 - Tubal ligation status (ICD-10) S/P breast lumpectomy ?Z98.890 - Other specified postprocedural states (ICD-10) History of breast biopsy ?Z98.890 - Other specified postprocedural states (ICD-10) Family History (Updated 10/29/24 @ 12:56 by Cha Hickey) Other Family history of breast cancer Family history of colon cancer Family history of diabetes mellitus Family history of heart disease Family history of hypertension Family history of myocardial infarction Family history of stroke Social History (Updated 06/18/23 @ 13:36 by Opal Hunt NP) Within the past year, how often did you have a drink containing alcohol: monthly or less Smoking status: Never smoker Non-prescribed substance use: denies use Highest level of school completed/degree received: high school graduate Meds Home Medications and Allergies Home Medications ?Medication ?Instructions ?Recorded ?Confirmed ?Type aspirin 81 mg tablet,delayed 81 mg PO DAILY 06/18/23 09/10/24 History release (Adult Aspirin Regimen) metoprolol succinate 50 mg 50 mg PO QPM 06/18/23 09/10/24 History tablet,extended release 24 hr nitroglycerin 0.4 mg sublingual 0.4 mg sublingual Q5M PRN chest 06/18/23 09/10/24 History tablet pain sertraline 50 mg tablet 50 mg PO QPM 06/18/23 09/10/24 History thyroid (pork) 30 mg tablet ([employer] 30 mg PO QDAY 06/18/23 09/10/24 History Thyroid) valsartan 160 mg tablet 160 mg PO QDAY 06/18/23 09/10/24 History nitric oxide PO 09/10/24 History Allergies Allergy/AdvReac Type Severity Reaction Status Date / Time benzonatate Allergy Unknown Verified 10/29/24 12:49 citalopram (From Celexa) Allergy Unknown Verified 10/29/24 12:49 diclofenac Allergy Hypertensio Verified 10/29/24 12:49 n doxycycline Allergy Unknown Verified 10/29/24 12:49 hydrochlorothiazide Allergy hypokalemia Verified 10/29/24 12:49 lisinopril Allergy unknown Verified 10/29/24 12:49 propranolol Allergy Unknown Verified 10/29/24 12:49 Assessment and Plan Assessment and Plan (1) Endometrial mass: Plan Scheduled procedure with Dr. Ryley Marinelli fractional D&C hysteroscopy with possible MyoSure scheduled on 11/05/2024
[2024-10-29 13:39] LABS: Prothrombin Time 10.6 sec (9.0-11.6)
[2024-10-29 13:58] LABS: BUN Creatinine Ratio 24.4; Carbon Dioxide 25.5 mmol/L (21.0-32.0); Chloride 109 mmol/L (98-107); Estimated GFR (African America >60 (>=60 mL/min/1.73m^2); Estimated GFR (Non-African Ame >60 (>=60 mL/min/1.73m^2); Glucose 80 mg/dL (74-106); Potassium 4.5 mmol/L (3.5-5.1); Sodium 142 mmol/L (136-145)
== END 2024-10-29 12:28 | disposition home or self-care (01) ==
LOC: PST 12:28
PROVIDERS: Visit Provider Obstetrics & Gynecology
DX: Z01.810 Encounter for preprocedural cardiovascular examination (principal); Z01.812 Encounter for preprocedural laboratory examination; Z01.818 Encounter for other preprocedural examination; R93.89 Abnormal findings on diagnostic imaging of other specified body structures; N94.89 Other specified conditions associated with female genital organs and menstrual cycle
CPT/HCPCS: 71046; 80048; 85025; 85610; 85730; G0463

== ENCOUNTER 2024-11-05 07:48 | Day surgery (SDC) | payer OTHER, SELFPAY ==
[2024-09-10 11:32] VITALS: BP 169/77; PULSE 60; TEMP 36.4; O2SAT 96; BMI 23.0
[2024-10-29 12:43] VITALS: BP 173/76; PULSE 58; TEMP 36.2; O2SAT 100; BMI 23.1
[2024-11-05 07:59] LABS: Basophils Percent Auto 0.6 % (0.2-2.0); Eosinophils Absolute Auto 0.1 10^3/uL (0.0-0.7); Eosinophils Percent Auto 1.7 % (0.9-7.0); Hematocrit 40.6 % (36.0-48.0); Hemoglobin 13.5 g/dL (12.0-16.0); Immature Granulocytes Abs Auto 0.01 10^3/uL (0.00-0.03); Immature Granulocytes Pct Auto 0.3 % (0.0-0.5); Lymphocytes Absolute Auto 1.2 10^3/uL (1.2-3.8); Lymphocytes Percent Auto 35.5 % (20.5-60.0); Mean Corpuscular HGB Conc 33.3 g/dL (29.9-35.2); Mean Corpuscular Hemoglobin 30.8 pg (26.7-34.0); Mean Corpuscular Volume 92.7 fL (81.0-99.0); Mean Platelet Volume 10.7 fL (9.5-13.5); Monocytes Absolute Auto 0.4 10^3/uL (0.3-0.8); Monocytes Percent Auto 11.6 % (1.7-12.0); Neutrophils Absolute Auto 1.7 10^3/uL (1.4-6.5); Neutrophils Percent Auto 50.3 % (43.0-75.0); Platelet Count 176 10^3/uL (150-450); Red Blood Count 4.38 10^6/uL (4.20-5.40); Red Cell Distribution Width 12.9 % (11.0-15.0); White Blood Count 3.5 10^3/uL (4.0-11.0)
--- OUTSIDE RECORDS SUMMARY | 2024-11-05 08:07 | XMS_ITS | CCD ---
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 Role Phone CRIS VALENZUELA Unavailable Unavailable BIANCA, CRIS Unavailable Unavailable CRIS VALENZUELA Unavailable Unavailable [...] KARASIK ., DR DANNY Ericksonitting Unavailabl e PEREZ, DR DANNY Murphy Primary Care Unavailable ZIEBANTONIETTA, DR IDALIA Smith Consulting Unavailable PEREZ, DR DANNY Murphy Consulting Unavailable KARASIK ., DR DELGADO Attending Unavailabl e KARASIK ., DR DELGADO Admitting Unavailabl e PEREZ, DR DANNY Murphy Primary Care Unavailable KARASIK ., DR DELGADO Consulting Unavailabl e PAOLA, DR IDALIA Smith Consulting Unavailable Osbaldo SEWELLCristin Primary Care Provider ANIKA De La Rosa Primary Care Provide r MD Jay Jay Mariscal Attending Provider [phone] Camryn De La Rosa Unavailable Ms. Camryn De La Rosa Primary Care Unava ilford Mariscal, Dr. Jay Jay Lewis Attending Kimberley vailable Davey, Dr. Jay Jay Lewis Referring Kimberley vailable Camryn De La Rosa Primary Care Physician Renee Mcallisterth Miguel Primary Care Physician [phone] Ryley Marinelli Attending Provider ANIKA De La Rosa Primary Care Provide r Bhavna Mcallisterzabeth L Attending Unavailable Esvin, Vilma [...] V. Attending UnavailTRACI Denny Attending Unav ailable Esvin, Vilma L Attending Unavailable TRACI De La Rosa Attending [...] Provider UnavailJAY JAY Taylor Attending Unavailable CAMRYN MARCIAL Primary Care Unavailable Vilma Mcallister Attending Unavailable Vilma Mcallister Attending Unavailable Vilma Mcallister Referring Unavailable Singh Sellers Attending Unavailable Vilma Mcallister Attending Unavailable Vilma Mcallister Attending Unavailable Vilma Mcallister Attending Unavailable Allergies Allergy Classification Reported Allergen(s) Allergy Type Date of Onset Reaction(s) Facility Angiotensin Converting Enzyme (CARMELINA) Inhibitors (2 sources) Lisinopril; Translations: [lisinopril] Drug Allergy Unknown (qualifier value) [facility] Doxycycline (2 sources) Doxycycline; Translations: [doxycycline] Drug Allergy Mycosis (disorder) [facility] hydroCHLOROthiazide (2 sources) hydroCHLOROthiazide; Translations: [hydrochlorothiazide] Drug Allergy Disorder of electrolytes (disorder) [facility] Hydroflumethiazide (1 source) Hydroflumethiazide; Translations: [hydroflumethiazide] Drug Allergy [facility] NSAIDs (4 sources) Diclofenac; Translations: [diclofenac] Drug Allergy Hypertensive disorder, systemic arterial (disorder) [facility] Propranolol (2 sources) Propranolol; Translations: [propranolol] Drug Allergy hives [facility] Serotonin Reuptake Inhibitors (SSRIs) (4 sources) Citalopram; Translations: [citalopram] Drug Allergy Unknown (qualifier value) [facility] Unclassified (2 sources) No Known Medication Allergies; Translations: [No Known Medication Allergies] Propensity to adverse reactions (disorder) [facility] (9 sources) atorvastatin; Translations: [atorvastatin] Drug Allergy 023 Unknown [facility] (20 sources) Citalopram; Translations: [CeleXA TABS] Drug Allergy 019 Unknown (qualifier value), Unknown [facility] DO Work Phone: (20 sources) Diclofenac; Translations: [diclofenac] Drug Allergy 05-24-2 023 Hypertensive disorder, systemic arterial (disorder), Unknown [facility] roger 250 DO Work Phone: (20 sources) Doxycycline; Translations: [doxycycline] Drug Allergy 021 [facility]osis (disorder[facility] Work Phone: (20 sources) hydroCHLOROthiazide; Translations: [hydrochlorothiazide] Drug Allergy Disorder of electrolytes (disorder), Unknown [facility] roger 250 DO Work Phone: (20 sources) Lisinopril; Translations: [lisinopril] Drug Allergy Unknown (qualifier value), Intolerance, Cough [facility] roger 250 DO Work Phone: (20 sources) Propranolol; Translations: [propranolol] Drug Allergy Unknown [facility] Zebtab DO Work Phone: (4 sources) Diclofenac; Translations: [diclofenac sodium] Drug Allergy Intolerance [facility] (1 source) Thiazides Propensity to adverse reactions to drug Unknown [facility] (4 sources) Citalopram; Translations: [citalopram] Drug Allergy Muscle Pain [facility] (2 sources) atorvastatin Drug Allergy [facility] Work Phone: (2 sources) benzonatate Drug Allergy [facility] (2 sources) benzyl benzoate Drug Allergy [facility] (2 sources) hydroCHLOROthiazide Drug Allergy [facility] (2 sources) Lisinopril Propensity to adverse reactions Cough [facility] (2 sources) Octacosanol Drug Allergy [facility] (2 sources) Other Propensity to adverse reactions [facility] (1 source) hydroCHLOROthiazide Drug Allergy [facility] (1 source) Lisinopril Drug Allergy [facility] (1 source) Propranolol Drug Allergy [facility] (1 source) Citalopram; Translations: [Citalopram Hydrobromide] Drug Allergy [facility] (1 source) Citalopram; Translations: [CeleXA] Drug Allergy [facility] (1 source) Diclofenac; Translations: [Voltaren Topical] Drug Allergy [facility] (1 source) Hydroflumethiazide; Translations: [hydroflumethiazide] Drug Allergy [facility] Medications Current Medications Medication Drug Class(es) Dates Sig (Normalized) Sig (Original) [id number] 200 actuat albuterol 0.09 mg/actuat metered dose inhaler (2 sources) beta2-Adrenergic Agonist albuterol HFA 90 mcg/act inhaler Active Albuterol (Eqv-Ventolin HFA) 90 mcg/inh inhalation aerosol (2 sources) Start: 09-04-2023 take 2 puff(s) by inhalation every six hours Albuterol (Eqv-Ventolin HFA) 90 mcg/inh inhalation aerosol 2 puff(s), Inhalation, q6hr, 18 gm, Refill(s) 0, [facility], 154, cm, 09/04/23 9:44:00 EDT, Height/Length Dosing, 56.1, kg, 09/04/23 9:44:00 EDT, Weight Dosing Start Date: 09/04/23 Status: Ordered ALPRAZolam 0.25 mg oral tablet (20 sources) Benzodiazepine Start: 11-09-2020 End: 10-11-2024 take 1 tablet by mouth once daily as needed alprazolam 0.25 mg Tab 0.25 mg = 1 tab(s), Oral, Daily, PRN for insomnia, # 12 tab(s), Refills(s) 0, Pharmacy: [facility], 154, cm, 09/26/23 9:41:00 EDT, [...] oral tablet (1 source) Penicillin-class Antibacterial Start: End: take 1 tablet by mouth every twelve hours Augmentin 875 mg-125 mg Tab 1 tab(s), Oral, q12hr for 10 day(s), 20 tab(s), Refill(s) 0, [facility], 154, cm, 10/15/24 10:15:00 EST, Height/Length Dosing, 55.6, kg, 10/15/24 10:15:00 EST, Weight Dosing Start Date: 10/15/24 Stop Date: 10/25/24 Status: Ordered aspirin 81 mg oral tablet (20 sources) Platelet Aggregation Inhibitor, Nonsteroidal Anti-inflammatory Drug Start: 9 take 1 tablet by mouth once daily aspirin 81 mg oral tablet = 1 tab(s), Oral, Daily, Refills(s) 0 Start Date: 01/26/21 Status: Ordered aspirin 81 MG EC tablet 1 (one) time each day at the same time. Active take 1 tablet by mouth three lexa es weekly aspirin 81 mg EC tablet Take 1 tablet (81 mg) by mouth 3 times a week. Active Comment on above: Take 81 mg by mouth once daily. azithromycin 250 mg oral tablet (2 sources) Macrolide Antimicrobial Start: 10-15-2024 End: 10-20-2024 Zithromax Z-Dionicio 250 mg oral tablet = 1 packet(s), Oral, As Directed, as directed on package labeling, X 5 day(s), # 6 tab(s), Refills(s) 0, Pharmacy: [facility], 154, cm, 10/15/24 10:15:00 EST, Height/Length Dosing, 55.6, kg, 10/15/24 10:15:00 EST, Weight Dosing Start Date: 10/15/24 Stop Date: 10/20/24 Status: Ordered Start: 09-24-2022 End: 09-29-2022 Zithromax 250 mg Tab = 1 pac ket(s), Oral, As Directed, as directed on package labeling, X 5 day(s), # 6 tab(s), Refills(s) 0, Pharmacy: [facility], 154, cm, 09/24/22 12:01:00 EDT, [...] day(s), # 30 cap(s), Refills(s) 0, Pharmacy: [facility], 154, cm, 10/15/24 10:15:00 EST, Height/Length Dosing, 55.6, kg, 10/15/24 10:15:00 EST, Weight Dosing Start Date: 10/15/24 Stop Date: 10/25/24 Status: Ordered Start: 12-17-2022 End: 12-24-2022 take 1 capsule by mouth three times daily Tessalon 100 mg Cap 100 mg = 1 cap(s), Oral, TID, X 7 day(s), # 21 cap(s), Refills(s) 0, Pharmacy: [facility], 154, cm, 12/17/22 11:54:00 EST, Height/Length Dosing, 57, kg, 12/17/22 11:54:00 EST, Weight Dosing Start Date: 12/17/22 Stop Date: 12/24/22 Status: Ordered brompheniramine maleate 0.4 mg/ml / dextromethorphan hydrobromide 2 mg/ml / pseudoephedrine hydrochloride 6 mg/ml oral solution (20 sources) alpha-Adrenergic Agonist, Uncompetitive M-pzwpei-V-aspartate Receptor Antagonist, Sigma-1 Agonist Start: 09-26-2023 take 5 mL by mouth four times daily for cough and congestion Bromfed DM oral syrup 5 mL, Oral, QID for cough and congestion, 200 mL, Refill(s) 0, [facility], 154, cm, 04/14/24 9:52:00 EDT, Height/Length Dosing, 56, kg, 04/14/24 9:52:00 EDT, Weight Dosing Start Date: 04/14/24 Status: Ordered Elderberry Gummies with Vitamin C and Zinc (7 sources) Start: 05-12-2024 Elderberry Gummies with Vitamin C and Zinc 1 tablet, Chewed, Daily, Refill(s) 0 Start Date: 05/12/24 Status: Ordered Elderberry preparation (9 sources) Start: 10-30-2023 Elderberry 500 MG capsule Refill(s) 0 10/30/2023 Active Start: 10-30-2023 elderberry Ref ill(s) 0 Start Date: 10/30/23 Status: Ordered estradiol 0.1 mg/ml vaginal cream (2 sources) Estrogen Start: 12-12-2020 Estrace 0.1 mg /g Cream See Instructions, 42.5 gm, Refill(s) 0, 0.5 to 1 gm Vaginal 1-2 x per week at bed time., [facility], 155, cm, 12/12/20 12:23:00 EST, [...] Once, # 1 tab(s), Refills(s) 1, Pharmacy: [facility], 154, cm, 10/15/24 10:15:00 EST, Height/Length Dosing, 55.6, kg, 10/15/24 10:15:00 EST, Weight Dosing Start Date: 10/15/24 Status: Ordered Start: 09-04-2023 Diflucan 100 m g Tab 100 mg = 1 tab(s), Oral, Daily, take once if needed and may repeat if needed, # 2 tab(s), Refills(s) 0, Pharmacy: [facility], 154, cm, 09/04/23 9:44:00 EDT, [...] bed, # 40 tab(s), Refills(s) 1, Pharmacy: [facility], 154, cm, 08/19/23 11:14:00 EDT, [...] pain, # 90 tab(s), Refills(s) 0, Pharmacy: [facility] Start Date: 07/09/19 Status: Ordered [...] Once, # 3 tab(s), Refills(s) 0, Pharmacy: [facility], 154.9, cm, 02/19/21 14:27:00 EDT, Height/Length Dosing, 57, kg, 02/19/21 14:27:00 EDT, Weight Dosing Start Date: 03/01/21 Status: Ordered ketoconazole 10 mg/ml medicated shampoo (8 sources) Azole Antifungal Start: 09-12-2022 ketoconazole topical 1% shampoo 1 christiano, Topical, q3day, 210 mL, Refill(s) 1, [facility], 154, cm, 09/12/22 10:34:00 EDT, Height/Length Dosing, 56.4, kg, 09/12/22 10:34:00 EDT, Weight Dosing Start Date: 09/12/22 Status: Ordered levoFLOXacin 750 mg oral tablet (2 sources) Quinolone Antimicrobial Start: 05-06-2024 End: 05-13-2024 take 1 tablet by mouth once daily Levaquin 750 mg Tab 750 mg = 1 tab(s), Oral, Daily, X 7 day(s), # 7 tab(s), Refills(s) 0, Pharmacy: [facility], 154, cm, 05/06/24 15:09:00 EDT, [...] BID, # 60 tab(s), Refills(s) 5, Pharmacy: [facility] Start Date: 10/06/19 Status: Ordered Start: 07-29-2019 take 50 mg by mouth once daily Losartan Active 50 MG PO Daily July 28, 2019 11:00pm Comment on above: Take 50 mg by mouth once daily. magnesium amino acid chelate (18 sources) Start: 023 magnesium amino acids chelate Refills(s) 0 Start Date: 09/04/23 Status: Ordered meclizine hydrochloride 12.5 mg oral tablet (2 sources) Antiemetic Start: take 1 tablet by mouth three times daily as needed for dizziness Antivert 12.5 mg Tab 12.5 mg = 1 tab(s), Oral, TID, PRN for dizziness, # 30 tab(s), Refills(s) 0, Pharmacy: [facility], 155, cm, 12/12/20 12:23:00 EST, Height/Length Dosing, 58.6, kg, 12/12/20 12:23:00 EST, Weight Dosing Start Date: 12/12/20 Status: Ordered methylPREDNISolone 4 mg oral tablet (2 sources) Corticosteroid Start: End: Medrol 4 mg Tab = 1 packet(s), Oral, As Directed, as directed on package labeling, X 6 day(s), # 21 tab(s), Refills(s) 0, Pharmacy: [facility], 154, cm, 04/14/24 9:52:00 EDT, Height/Length Dosing, 56, kg, 04/14/24 9:52:00 EDT, Weight Dosing Start Date: 04/14/24 Stop Date: 04/20/24 Status: Ordered Start: 09-17-2022 End: 09-23-2022 Medrol 4 mg Tab = 1 packet(s ), Oral, As Directed, as directed on package labeling, X 6 day(s), # 21 tab(s), Refills(s) 0, Pharmacy: [facility], 154, cm, 09/12/22 10:34:00 EDT, Height/Length [...] Topical, BID Diabetic, 30 gram, Refill(s) 0, [facility], 154, cm, 07/09/24 9:47:00 EDT, Height/Length Dosing, 54.2, kg, 07/09/24 9:47:00 EDT, Weight Dosing Start Date: 07/09/24 Status: Ordered Start: 10-30-2023 mupirocin Top 2% Oint 1 christiano, Topical, TID, 30 gram, Refill(s) 1, [facility], 154, cm, 10/30/23 9:48:00 EST, Height/Length Dosing, 57.8, kg, 10/30/23 9:48:00 EST, Weight Dosing Start Date: 10/30/23 Status: Ordered Start: 03-22-2021 mupirocin Top 2% Oint 1 christiano, Topical, TID nasal sore., 15 gm, Refill(s) 0, [facility], 154.9, cm, 03/22/21 9:27:00 EDT, Height/Length Dosing, 57.7, kg, 03/22/21 9:27:00 EDT, Weight Dosing Start Date: 03/22/21 Status: Ordered NAC Detox Regulators (15 sources) Start: 01-15-2024 take 500 ug by mouth once daily NAC Detox Regulators NAC Detox Regulators, Oral, Daily, Selenium 500 mcg, Molybdenum 50 mcg, and N-Acetylcysteine 600 mg Start Date: 01/15/24 Status: Ordered nitroglycerin 0.4 mg sublingual tablet (9 sources) Nitrate Vasodilator Start: 07-29-2019 Nitroglycerin Active 0.4 MG SUBLINGUAL Q5M July 28, 2019 11:00pm until response; do not exceed 3 doses per episode omeprazole 40 mg delayed release oral capsule (2 sources) Proton Pump Inhibitor Start: 02-28-2020 take 1 capsule by mouth once daily omeprazole 40 mg Cap-DR 40 mg = 1 cap(s), Oral, Daily, # 30 cap(s), Refills(s) 2, Pharmacy: [facility], 155.2, cm, 02/07/20 13:54:00 EDT, Height/Length Measured, 60.7, kg, 02/07/20 13:54:00 EDT, Weight Measured Start Date: 02/28/20 Status: Ordered Oxytocin-Sodium Chloride 15-0.9 UT/250ML-% solution (2 sources) Oxytocin-Sodium Chloride 15-0.9 UT/250ML-% solution Infuse into a venous catheter. Active predniSONE 10 mg oral tablet (2 sources) Start: 10-15-2024 predniSONE 10 mg Tab See Instructions, - Oral As Directed 4 tabs x 2 days, 3 tabs 2 days, 2 tabs x 2 days then 1 tab x 2 days with food, # 16 tab(s), Refills(s) 0, Pharmacy: [facility], 154, cm, 10/15/24 10:15:00 EST, Height/Length Dosing, 55.6, kg, 10/15/24 10:15:00 EST, Weight Dosing Start Date: 10/15/24 Status: Ordered Start: 12-17-2022 End: 12-22-2022 take 2 tablets by mouth twice daily predniSONE 20 mg Tab 40 mg = 2 tab(s), Oral, BID, X 5 day(s), # 20 tab(s), Refills(s) 0, Pharmacy: [facility], 154, cm, 12/17/22 11:54:00 EST, Height/Length Dosing, 57, kg, 12/17/22 11:54:00 EST, Weight Dosing Start Date: 12/17/22 Stop Date: 12/22/22 Status: Ordered progesterone 100 mg vaginal insert (2 sources) Progesterone progesterone (Endometrin) 100 MG vaginal insert Insert 100 mg into the vagina in the morning and 100 mg before bedtime. Active Promethazine (6 sources) Phenothiazine Start: 09-17-20 take 5 mL by mouth every six hours for cough Promethazine DM oral syrup 5 mL, Oral, q6hr for cough, 120 mL, Refill(s) 0, [facility], 154, cm, 09/12/22 10:34:00 EDT, Height/Length Dosing, 56.4, kg, 09/12/22 10:34:00 EDT, Weight Dosing Start Date: 09/17/22 Status: Ordered raNITIdine 150 mg oral tablet (2 sources) Histamine-2 Receptor Antagonist Start: 07-29-20 19 take 150 mg by mouth twice daily Ranitidine Hcl Active 150 MG PO Twice daily July 28, 2019 11:00pm sertraline 50 mg oral tablet (20 sources) Serotonin Reuptake Inhibitor Start: 10-10-20 21 take 1 tablet by mouth once daily sertraline 50 mg Tab 50 mg = 1 tab(s), Oral, Daily, # 90 tab(s), Refills(s) 3 Start Date: 10/15/24 Status: Ordered Start: 07-29-2019 take 100 mg by mouth once beto y Sertraline Active 100 MG PO Daily July 28, 2019 11:00pm sertraline (Zolo ft) 100 MG tablet Take 50 mg by mouth in the morning. Active Comment on above: Take 100 mg by mouth once daily. sodium chloride 0.111 meq/ml nasal spray (10 sources) Start: 01-25-2022 [place]art Saline Mist 0.65% nasal spray 2 spray(s), Nasal, QID, 1 EA, Refill(s) 1, [facility], 154, cm, 01/25/22 11:10:00 EST, Height/Length Dosing, 57.2, kg, 01/25/22 11:10:00 EST, Weight Dosing Start Date: 01/25/22 Status: Ordered spacer (18 sources) Start: 09-04-2023 spacer spacer, See Instructions, 1 EA, 1, please dispense an adult mdi spacer chamber, [facility], Supply, 154, cm, 09/04/23 9:44:00 EDT, Height/Length Dosing, 56.1, kg, 09/04/23 9:44:00 EDT, Weight Dosing Start Date: 09/04/23 Status: Ordered thyroid (custodial) 30 mg oral tablet (20 sources) Start: 11-09-2020 End: 10-10-2025 take 1 tablet by mouth once daily [place] Thyroid 30 mg Tab 30 mg = 1 tab(s), Oral, Daily, no Generic substitutions please -, X 90 day(s), # 90 tab(s), Refills(s) 3, Pharmacy: [facility], 154, cm, 10/15/24 10:15:00 EST, [...] QID for wheezing, 18 gram, Refill(s) 1, [facility], 154, cm, 10/15/24 10:15:00 EST, Height/Length Dosing, 55.6, kg, 10/15/24 10:15:00 EST, Weight Dosing Start Date: 10/15/24 Status: Ordered Start: 12-17-2022 take 2 puff(s) by in halation four times daily for wheezing Ventolin HFA 90 mcg/inh Aerosol-Adpt 2 puff(s), Inhalation, QID for wheezing, 18 gram, Refill(s) 0, [facility], 154, cm, 12/17/22 11:54:00 EST, [...] Start: 07-29-2019 take 1 tablet by albert once daily Atorvastatin (Lipitor) 40 mg tablet [...] Foundation (15 sources) Start: 01-15-20 Nitric Oxide [facility] Nitric Oxide Foundation, 2 tab(s), Oral, Daily, [...] / vitamin e 5 unt oral capsule (5 sources) Start: 07-15-20 take 1 capsule by [...] day(s), # 13 cap(s), Refills(s) 0, Pharmacy: [facility], 154, cm, 09/12/22 10:34:00 EDT, [...] of female breast] Onset: 3 01-19-2021 Chronic Cataract (2 sources) Bilateral age-related nuclear cataracts; Translations: [Age-related nuclear cataract, bilateral] Onset: 3 11-10-2023 Chronic Chronic obstructive pulmonary disease and bronchiectasis (20 sources) Bronchitis; Translations: [Bronchitis, not specified as acute or chronic] Onset: 3 Episodic Coronary atherosclerosis and other heart disease (20 sources) Coronary arteriosclerosis; Translations: [Coronary atherosclerosis of unspecified type of vessel, [place] or graft] Onset: 3 02-07-2020 Chronic Comment on above: 40% LAD, cardiac cat heterization 2019; Disorders of lipid metabolism (20 sources) Dyslipidemia; Translations: [Other and unspecified hyperlipidemia] Onset: 3 Chronic E Codes: Fall (10 sources) Fall 08-17-2021 Esophageal disorders (12 sources) Gastroesophageal reflux disease; Translations: [Gastro-esophageal reflux disease without esophagitis] Onset: 3 02-07-2020 Chronic Essential hypertension (20 sources) Essential hypertension; Translations: [Unspecified essential hypertension] Onset: 3 02-07-2020 Chronic Genitourinary symptoms and ill-defined conditions (1 source) Dysuria; Translations: [Dysuria] Onset: 3 Episodic Headache; including migraine (17 sources) Migraine without aura, not refractory ; Translations: [Migraine without aura, not intractable, without status migrainosus] Onset: 4 Chronic Heart valve disorders (11 sources) Mitral valve regurgitation; Translations: [Mitral valve disorders] Onset: 3 10-11-2024 Chronic Comment on above: mild by echocardiogr am 2018; Inflammation; infection of eye (except that caused by tuberculosis or sexually transmitteddisease) (2 sources) Keratoconjunctivitis sicca; Translations: [Keratoconjunctivitis sicca, not specified [...] right breast 01-09-2021 Episodic Nonmalignant breast conditions (14 sources) Fibrocystic disease of breast; Translations: [Diffuse cystic mastopathy of right breast] Onset: 3 Resolved: 9 10-08-2019 Chronic Nonspecific chest pain (3 sources) Chest pain; Translations: [Chest pain, unspecified] Episodic Nutritional deficiencies (20 sources) Vitamin D deficiency; Translations: [Vitamin D deficiency, unspecified] Onset: 3 02-07-2020 Chronic Osteoarthritis (7 sources) Degenerative joint disease involving multiple joints; Translations: [Secondary multiple arthritis] Onset: 1 04-09-2021 Chronic Osteoporosis (20 sources) Osteoporosis; Translations: [Postmenopausal osteoporosis] Onset: 1 02-07-2020 Chronic Other and unspecified benign neoplasm (10 sources) History of polyp of colon; Translations: [Personal history of colonic polyps] Onset: 4 Episodic Other ear and sense organ disorders (2 sources) Sensorineural hearing loss, bilateral; Translations: [Sensorineural hearing loss, bilateral] Onset: 3 06-04-2023 Chronic Other ear and sense organ disorders (2 sources) Bilateral hearing loss; Translations: [Sensorineural hearing loss, [...] bleeding 10-30-2023 Chronic Other female genital disorders (2 sources) Abnormal vaginal bleeding; Translations: [Abnormal uterine and [...] conditions (not mental disorders or infectious disease) (2 sources) Endometrium thickened; Translations: [Abnormal findings on diagnostic [...] Onset: 2 Episodic Other upper respiratory disease (12 sources) Allergic rhinitis; Translations: [Allergic rhinitis, unspecified] Onset: 3 10-23-2020 Chronic Other upper respiratory disease (1 source) Disorder of the nose; Translations: [Abscess, furuncle and carbuncle of nose] Onset: 3 Episodic Other upper respiratory disease (16 sources) Ulcer of nasal septum 10-30-2023 Episodic Other upper respiratory infections (20 sources) Chronic sinusitis; Translations: [Sinusitis] Onset: 3 02-19-2021 Chronic Otitis media and related conditions (8 sources) Otitis media; Translations: [Otitis media, unspecified, left ear] Onset: 4 Episodic Pneumonia (except that caused by tuberculosis or sexually transmitted disease) (12 sources) Pneumonia; Translations: [Pneumonia, unspecified organism] Onset: 4 Episodic Residual codes; unclassified (10 sources) Sleep [...] degeneration, unspecified cervical region] Onset: 4 Chronic Thyroid disorders (20 sources) Hypothyroidism; Translations: [Unspecified [...] varicose veins of unspecified lower extremity] Onset: Episodic Past or Other Problems Problem Classification Problem Date Documented Date Episodic/Chronic Abdominal pain (10 sources) Right lower quadrant pain Resolved: 04-27-2019 04-28-2019 Episodic Cancer of breast (20 sources) History of malignant neoplasm of breast; Translations: [Personal history of malignant neoplasm of breast] Onset: 12-11-2022 01-17-2023 Episodic Cardiac dysrhythmias (10 sources) Palpitations Resolved: 04-27-2019 04-28-2019 Episodic Conditions associated with dizziness or vertigo (20 sources) Vertigo; Translations: [Dizziness and giddiness] Onset: 06-04-2023 12-12-2020 Episodic Deficiency and other anemia (10 sources) Anemia Resolved: 05-25-2019 10-08-2019 Episodic Deficiency and other anemia (10 sources) Iron deficiency anemia secondary to inadequate dietary iron intake Resolved: 04-27-2019 10-08-2019 Episodic Diseases of mouth; excluding dental (3 sources) Xerostomia; Translations: [Dry mouth, unspecified] Onset: 04-09-2021 04-09-2021 Episodic E Codes: Fall (2 sources) Fall; Translations: [Unspecified fall, initial encounter] Onset: 06-04-2023 06-04-2023 Episodic Fluid and electrolyte disorders (20 sources) Hypokalemia; Translations: [Hypokalemia] Onset: 06-04-2023 04-27-2019 Episodic Immunizations and screening for infectious disease (10 sources) Encounter for screening for human papillomavirus (HPV); Translations: [Anti-nuclear factor positive] Onset: 04-09-2021 04-09-2021 Episodic Inflammation; infection of eye (except that caused by tuberculosis or sexually transmitteddisease) (12 sources) Allergic conjunctivitis; Translations: [Blepharitis of upper and lower eyelids of bilateral eyes] Onset: 11-10-2023 10-23-2020 Episodic Nonmalignant breast conditions (11 sources) Lump of upper outer quadrant of breast; Translations: [Mastodynia] Onset: 12-06-2022 01-17-2023 Episodic Nutritional deficiencies (20 sources) Cobalamin deficiency; Translations: [Vitamin B deficiency] Onset: 06-04-2023 07-19-2019 Episodic Other connective tissue disease (10 sources) Foot pain Resolved: 04-27-2019 04-28-2019 Episodic Other connective tissue disease (4 sources) Pain of bilateral hands; Translations: [Pain in right hand] Onset: 04-09-2021 04-09-2021 Episodic Other endocrine disorders (12 sources) Disorder of endocrine system; Translations: [Endocrine disorder, unspecified] Onset: 06-04-2023 02-07-2020 Episodic Other eye disorders (10 sources) Dry eyes Resolved: 04-27-2019 10-08-2019 Episodic Other eye disorders (3 sources) Tear film insufficiency; Translations: [Dry eye syndrome of bilateral lacrimal glands] Onset: 04-09-2021 04-09-2021 Episodic Other hematologic conditions (3 sources) ESR raised; Translations: [Elevated erythrocyte sedimentation rate] Onset: 04-09-2021 04-09-2021 Episodic Other nervous system disorders (13 sources) Paresthesia of hand ; Translations: [Anesthesia of skin] Onset: 04-09-2021 10-23-2020 Episodic Other nervous system disorders (3 sources) Paresthesia of foot ; Translations: [Anesthesia of skin] Onset: 04-09-2021 04-09-2021 Episodic Other non-traumatic joint disorders (12 sources) Joint pain; Translations: [Pain in unspecified joint] Onset: 06-04-2023 11-09-2020 Episodic Other skin disorders (10 sources) Loss of hair; Translations: [Nonscarring hair loss, unspecified] Onset: 06-04-2023 09-12-2022 Episodic Other upper respiratory disease (10 sources) Seasonal allergy Resolved: 04-27-2019 04-28-2019 Chronic Other upper respiratory infections (20 sources) Acute upper respiratory infection; Translations: [Acute upper respiratory infection, unspecified] Onset: 09-17-2022 Episodic Residual codes; unclassified (18 sources) Body mass index 20-24 - normal; Translations: [Body Mass Index between 19-24, adult] Onset: 09-12-2022 Episodic Residual codes; unclassified (10 sources) Postmenopausal state Resolved: 04-27-2019 04-28-2019 Episodic Residual codes; unclassified (4 sources) History of chest pain; Translations: [Personal history of other specified diseases] Resolved: 07-16-2022 Episodic Spondylosis; intervertebral disc disorders; other back problems (20 sources) Cervico-occipital neuralgia; Translations: [Low back pain] Onset: 04-09-2021 Resolved: 04-27-2019 02-07-2020 Episodic Unclassified (1 source) Encounter for screening for cardiovascular disorders; Translations: [Encounter for screening for cardiovascular disorders] Onset: 09-08-2017 Unclassified (7 sources) Never smoked tobacco; Translations: [Never a smoker] Unclassified (20 sources) Onset: 07-13-1969 Resolved: 11-25-1977 08-11-2019 Unclassified (1 source) Onset: 10-11-2024 10-11-2024 Viral infection (6 sources) Viral disease; Translations: [Viral infection, unspecified] Onset: 06-04-2023 Episodic Results Test Name Value Interpretation Reference Range Facil ity ALL CBC WITH AUTO DIFFon BASOPHILS ABSOLUTE AUTO 0 [facility] Basophils/100 WBC (Bld) 0.5 % 0.2 - 2.0 % [facility] Eosinophils/100 WBC (Bld) 0.7 % Low 0.9 - 7.0 % [facility] Erythrocyte distribution width (RBC) [Ratio] 12.9 % 11.0 - 15.0 % [facility] Hematocrit (Bld) [Volume fraction] 38.9 % 36.0 - 48.0 % [facility] Hemoglobin (Bld) [Mass/Vol] 13.1 g/dL 12.0 - 16.0 g/dL [facility] IMMATURE GRANULOCYTES ABS AUTO 0.01 [facility] Immature granulocytes/100 WBC (Bld) 0.2 % 0.0 - 0.5 % [facility] Interpretation and review of laboratory results Abnormal [facility] LYMPHOCYTES ABSOLUTE AUTO 1.7 [facility] Lymphocytes/100 WBC (Bld) 30.4 % 20.5 - 60.0 % [facility] MCH (RBC) [Entitic mass] 30.5 pg 26.7 - 34.0 pg [facility] MCHC (RBC) [Mass/Vol] 33.7 g/dL 29.9 - 35.2 g/dL [facility] MCV (RBC) [Entitic vol] 90.5 fL 81.0 - 99.0 fL [facility] MONOCYTES ABSOLUTE AUTO 0.5 [facility] Monocytes/100 WBC (Bld) 8.7 % 1.7 - 12.0 % [facility] NEUTROPHILS ABSOLUTE [facility]O [facility] Neutrophils/100 WBC (Bld) 59.5 % 43.0 - 75.0 % [facility] Platelet mean volume (Bld) [Entitic vol] 10.6 fL 9.5 - 13.5 fL [facility] TBH EO # 0 [facility] TB PLT [address] [facility] RBC [address] [facility] WBC 5.7 [facility] Ambulatory Visit Summaryon 1 12-15-2023 Ambulatory Visit [...] - Vilma John Primary Care Physician - Esvin AVILES, Vilma Rivera This Is Your Medications List albuterol (Ventolin HFA 90 mcg/inh Aerosol-Adpt) amoxicillin-clavula carmen (Augmentin 875 mg-125 mg Tab) azithromycin (Zithromax Z-Dionicio 250 mg oral tablet) benzonatate (benzonatate 100 mg Cap) fluconazole (Diflucan 150 mg Tab) predniSONE (predniSONE 10 mg Tab) thyroid desiccated ([place] Thyroid 30 mg Tab) Contact prescribing physician [...] 1:40 PM EST With: Vilma John Where: [facility] [address], [place] [address]- Friday 2:30 PM EDT With: Where: [facility] [address], [place] [address]- You Need to Schedule the Following Appointments Follow Up with Vilma John, [facility], MED When: In 2 weeks Comments: lung follow up Where: [address], [address] [address]- Medications What How Much When Why Instructions New amoxicillin-clavula carmen (Augmentin 875 mg-125 mg Tab) 1 Tablets By Mouth Every 12 hours Duration: 10 Days Pickup at [facility] 1985 New azithromycin (Zithromax Z-Dionicio 250 mg oral tablet) 1 Packets By Mouth As Directed Pneumonia involving right lung Chronic sinusitis with recurrent bronchitis Duration: 5 Days as directed on package labeling Pickup at [facility] 1985 New benzonatate (benzonatate 100 mg Cap) 1 Capsules By Mouth 3 times a day Pneumonia involving right lung Duration: 10 Days Pickup at [facility] 1985 New fluconazole (Diflucan 150 mg Tab) 1 Tablets By Mouth Once Yeast infection of the vagina Refills: 1 Pickup at [facility] 1985 New predniSONE (predniSONE 10 mg Tab) See instructions Bronchitis, not specified as acute or chronic Pneumonia involving right lung - Oral As Directed 4 tabs x 2 days, 3 tabs 2 days, 2 tabs x 2 days then 1 tab x 2 days with food Pickup at [facility] 1985 Unchanged albuterol (Ventolin HFA 90 mcg/ inh Aerosol-Adpt) 2 Puffs Inhalation 4 times a day as needed for for wheezing Viral bronchitis Pickup at [facility] 1985 Unchanged thyroid desiccated ([place] Thyroid 30 mg Tab) 1 Tablets By Mouth Every day Izzy's thyroiditis Hypothyroidism Duration: 90 Days no Generic substitutions please - Pickup at [facility] 1985 Unchanged ascorbic acid (Vitamin C 500 [...] BMI 23.0 (more content not included)... [facility]/Clini c Noteon 10-15-2024 Family [...] office today Ordered: Influenza Type A&B POC 32666 Rapid COVID POC 82352 2. Fatigue (R53.83: Other fatigue) Patient did have a fever. Encouraged oslr-ozd-lognoao medication electrolyte fluid replacement and fever control with Tylenol Motrin at home Ordered: Influenza Type A&B POC 29043 Rapid COVID POC 95662 3. Weak (R53.1: Weakness) Ordered: Influenza Type A&B POC 88173 Rapid COVID POC 57220 4. Pneumonia involving right lung (J18.9: Pneumonia, [...] day(s), # 6 tab(s), Refills(s) 0, Pharmacy: [facility] 1985, 154, cm, 10/15/24 10:15:00 EST, Height/Length Dosing, 55.6, kg, 10/15/24 10:15:00 EST, Weight Dosing benzonatate, 100 mg = 1 cap(s), Oral, TID, X 10 day(s), # 30 cap(s), Refills(s) 0, Pharmacy: [facility] 1985, 154, cm, 10/15/24 10:15:00 EST, Height/Length Dosing, 55.6, kg, 10/15/24 10:15:00 EST, Weight Dosing predniSONE, See Instructions, - Oral As Directed 4 tabs x 2 days, 3 tabs 2 days, 2 tabs x 2 days then 1 tab x 2 days with food, # 16 tab(s), Refills(s) 0, Pharmacy: [facility] 1985, 154, cm, 10/15/24 10:15:00 EST, Height/Length Dosing, 55.6, kg, 10/15/24... 5. Chronic sinusitis with recurrent bronchitis (J32.9: Chronic sinusitis, unspecified) Encouraged nasal saline rinsing recurrent and as needed albuterol Ordered: azithromycin, = 1 packet(s), Oral, As Directed, as directed on package labeling, X 5 day(s), # 6 tab(s), Refills(s) 0, Pharmacy: [facility] 1985, 154, cm, 10/15/24 10:15:00 EST, Height/Length Dosing, 55.6, kg, 10/15/24 10:15:00 EST, Weight Dosing 6. 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 [facility] Comment on above: Result Comment: Elec tronically Signed By: Esvin AVILES, Vilma Rivera\.br\Date and Time Signed: 10/15/24 11:08 EST Provider Letteron 10-15-2024 Provider Letter Provider Letter October 15, 2024 MIKEYDARVIN BETY [address] [place] [address] : 1950 To Whom It May Concern, Please excuse above patient from work. Date of Illness: From: 2023 To: 2023 May Return to Work On: 2023 if fever free for 24hrs and symptoms manageable. Comments: Please the office if there are any questions. Thank You. Sincerely, [facility] [place] [facility] [address] [place] [address], [place] [address] [facility] ALL BASIC METABOLIC PANELon 09-10-2024 Anion gap [Moles/Vol] 12.7 mmol/L [facility] Calcium [Mass/Vol] 9.2 mg/dL 8.5 - 10.1 mg/dL [facility] Chloride [Moles/Vol] 103 mmol/L 98 - 107 mmol/L [facility] CO2 [Moles/Vol] 25.0 mmol/L 21.0 - 32.0 mmol/L [facility] Creatinine [Mass/Vol] 0.87 mg/dL 0.55 - 1.02 mg/dL [facility] GFR/1.73 sq M.predicted CKD-EPI (S/P/Bld) [Vol rate/Area] >60 >=60 mL/min/1.73m 2 [facility] Glucose [Mass/Vol] 141 mg/dL High 74 - 106 mg/dL [facility] Interpretation and review of laboratory results Abnormal [facility] Potassium [Moles/Vol] 3.7 mmol/L 3.5 - 5.1 mmol/L [facility] Sodium [Moles/Vol] 137 mmol/L 136 - 145 mmol/L [facility] TBH EGFR-NON AF BHUTANESE >60 >=60 mL/min/1.73m 2 [facility] Urea nitrogen [Mass/Vol] 23.0 mg/dL High 7.0 - 18.0 mg/dL [facility] Urea nitrogen/Creatinine [Mass ratio] 26.4 mg/mg [facility] Ambulatory Visit Summaryon 0 07-09-2024 Ambulatory Visit [...] with Vitamin C and Zinc) thyroid desiccated ([place] Thyroid 30 mg Tab) valsartan (valsartan 160 [...] EDT With: Esvin AVILES, Vilma Rivera Where: [facility] [address] [place] [address]- Friday 2:30 PM EDT With: Where: [facility] [address] [facility], [facility] [place] [address]- Medications What How Much When Why Instructions New mupirocin topical (mupirocin Top 2% Oint) 1 Application Topical 2 times a day Diabetic Impetigo Pickup at [facility] Unchanged albuterol (Ventolin HFA 90 mcg/ [...] breakdown unwanted (more content not included)... [facility]/Clini c Noteon 07-09-2024 [...] is correct. -Additional information provided if needed. [place] Hot, dry cough, sore throat, yellow crap [...] slowly improving Ordered: Influenza Type A&B POC 33316 Rapid COVID POC 46724 2. 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 Substitutions may have occurred due to the [...] right breast (more content not included)... [facility] Comment on above: Result Comment: Elec [...] a month after discontinuation. She discussed the [employer] program and is currently participating and [...] female evaluated (more content not included)... [facility] Comment on above: Result Comment: Elec tronically Signed By: Vilma John\.br\Date and Time Signed: 05/27/24 09:49 EDT\.br\Electronically Co-Signed By: Courtney Rea.br\Date and Time Co-Signed: 05/26/24 16:16 EDT Family [...] of clutter to prevent tripping and/or falling. [place] Advance Directives reviewed. Documents remain at home [...] 5. Hypothyroidism (E03.9: Hypothyroidism, unspecified) Continues taking [place] Thyroid daily as ordered. Voices no sensitivity to cold, extreme hair loss or increased daytime fatigue. Labs and medications followed up with PCP as needed 6. Mild CAD (I25.10: Atherosclerotic heart disease of [place] coronary artery without angina pectoris) Patient follows with cardiolo (more content not included)... [facility] Comment on above: Result Comment: Elec tronically [...] Vilma John This Is Your Medications List [facility] Prescription (spacer) Non-Formulary Medication (NAC Detox Regulators) [...] sertraline (sertraline 50 mg Tab) thyroid desiccated ([place] Thyroid 30 mg Tab) valsartan (valsartan 160 [...] What to do next Scheduled Follow-Up Appointments Friday:00 AM EDT With: Vilma John Where: [facility] Normal [address], [place] [address]- \.br\ Medications\.br\ What How Much When Why [...] By Mouth Every day\.br\ Unchanged thyroid desiccated ([place] Thyroid 30 mg Tab) 1 Tablets By [...] flaxseeds, walnuts, almonds, and seeds.\.br\ ? \.br\ Genesee-3 fats. These are found in foods such [...] oil, palm kernel oil, and coconut oil.\.br\ [facility] KERMIT ROSEN :1950 [...] with Vitamin C and Zinc) thyroid desiccated ([place] Thyroid 30 mg Tab) valsartan (valsartan 160 [...] Follow-Up Appointments Friday 2:30 PM EDT Where: [facility] Patient Educationon 05-26-20 24 Patient Education [...] Keep all follow-up visits. Medicines ? Take giej-ytn-expicca and prescription medicines only as told by [...] For m (more content not included)... [facility] Patient Education Dyslipidemia Dyslipidemia is an [...] to bec (more content not included)... [facility] YOSELIN Individual Abson 024 Centromere protein B Ab Qn (S) <0.2 Invalid Interpretation Code 0.0-0.9 [facility] Comment on above: Performed By: #### 2 [id number] #### [facility] [address] [place] [address] Chromatin Ab Qn <0.2 Invalid Interpretation Code 0.0-0.9 [facility] Comment on above: Performed By: #### 2 [id number] #### [facility] [address] [place] [address] DNA double strand Ab Qn (S) [IU]/mL Invalid Interpretation Code 0-9 [facility] Comment on above: Result Comment: Nega tive <5 Equivocal 5 - 9 Positive >9 Performed By: #### 2 [id number] #### [facility] [address] [place] [address] Loretta-1 extractable nuclear Ab Qn (S) <0.2 Invalid Interpretation Code 0.0-0.9 [facility] Comment on above: Performed By: #### 2 [id number] #### [facility] [address] [place] [address] Ribonucleoprotein extractable nuclear Ab Qn (S) 1.1 AI High 0.0-0.9 [facility] Comment on above: Performed By: #### 2 [id number] #### [facility] [address] [place] [address] SCL-70 extractable nuclear Ab Qn (S) <0.2 Invalid Interpretation Code 0.0-0.9 [facility] Comment on above: Performed By: #### 2 [id number] #### [facility] [address] [place] [address] See below: Comment Invalid Interpretation Code [facility] Comment on above: Result Comment: Auto [...] Sm (anti-Willis) SLE 15 - 30% --------- CONDENSER WINDER Mixed Connective Tissue Disease 95% (U1 nRNP, SLE 30 - 50% anti-ribonucleoprotein) Polymyositis and/or Dermatomyositis 20% --------- Scl-70 (antiDNA Scleroderma (diffuse) 20 - 35% topoisomerase) Crest 13% --------- Loretta-1 Polymyositis and/or Dermatomyositis 20 - 40% --------- Centromere B Scleroderma - Crest variant 80% Performed at: [facility] [address], [place] [id number] PhD Ramila Ackerman Performed By: #### 2 [id number] #### [facility] [address] [address] Sjogrens syndrome-A extractable nuclear Ab Qn (S) <0.2 Invalid Interpretation Code 0.0-0.9 [facility] Comment on above: Performed By: #### 2 [id number] #### [facility] [address] [place] [address] Sjogrens syndrome-B extractable nuclear Ab Qn (S) <0.2 Invalid Interpretation Code 0.0-0.9 [facility] Comment on above: Performed By: #### 2 [id number] #### [facility] [address] [place] [address] Willis extractable nuclear Ab Qn (S) <0.2 Invalid Interpretation Code 0.0-0.9 [facility] Comment on above: Performed By: #### 2 [id number] #### [facility] [address] [place] [address] YOSELIN w/Reflex if POSon 2023 Nuclear Ab Ql (S) Positive Abnormal Negative [facility] Comment on above: Result Comment: Perf ormed at: [facility] [address] [id number] PhD Ramila Ackerman Performed By: #### 1 [id number] #### [facility] [address] [place], [place] [id number] CH50on 05-20-2024 Complement total hemolytic CH50 Qn >60 Invalid Interpretation Code >41 [facility] Comment on above: Result Comment: Age [...] determine out of range values. Performed at: [facility] [address] [id number] PhD Ramila Ackerman Performed By: #### 1 [id number] #### [facility] [address] [place] [address] Coding Summary.on 05-20-2024 Coding Summary. TOPDLfuu25SSv5xJc+P GhlYWQ+WC5QZEMuX06w tYUfrF1pF1HKLEgDNcz gQVBQTElOSyIgbmFtZT 1kaXNjZXJu IC8+VC3hZAXzKybsyBX wc1V8tYF7A02vir9rYI tkfHK9MKVjMoJmqekvz 1kriMk7DIsfMmjpRsVh TSJrlV70NAQ6pN17Gl0 6rGTyfJSjw3hchRn4Jw WmEMMcXMV0mZezHSphq 5CzGTJrQ11ayCZjf8U1 IGNvbGxhcHNlOyBlbXB 9qO5yUIwuvkakm3zzsg uyYiu7nc62oHRno3G4f UF8E4CbmiA4OEWnbIKl UualoVNFlD8idwukp0u dmdogGrIvBNTfGKi3HL w9GCLgrQmdQzMkKE03H UY6XPCmttKbM0NgDQGv fWjxMtS2x9L1Sd6HO6H EEbdyI0HDZAORXYleiS Q+DI31iy73U1RqYsbtF zb7WKFcRBY7wEB3nG4e ZTPrSPijx3G3kEG5F6X qkxLfgc6su5daDGEoBK tdS36ufHUuf8O1TRLgz MK4YCNyrTbuZsVxnB59 Oyc+ZALplKjhj6LhJml bd8tkt8rvfEx0PorvZC KnzfEuiHycZRI0v1XvF s6zVHDmvMF6zZS5zO9p LqTsAwX9YPfaX743QzX vkKIxRtpjC19mE0WziN A+CKHnHih5YYUbnRgiE I2pD5BnZORnwmaojZTl nKpjUJ9oWOGuwxnxDLS qmV2bBAKnP6n8LxRoCt K1SLfxS7NrDVYydzhaN y07dW7pSpWaCyU8QQuj P2LidrU4ZTPicUAbGNg cTIO0M76ao4N1LYLvPI VdZJK1aUV2bC1caGjya jogbGVmdDsgdmVydGlj BJlbXLtlX213ZFIuzMy nPkNvZGluZyBEYXRlOi AgMDYvMjAvMjAyNDwvd GQ+KCRlSXX2qBkpZTIh bDKkFPuxDu5gdAqcyBs oWB7lQWSbzwpvCSVsfB 0lWCKmoJRryQerOE5dX OCxeptna653PtHmWXS2 YQObuPBhS5KbqV6oWzR iODXbXXWqO4AssAWzKD vkI285OFmzCxF4ODCuj jLjV5QdSMGmvGliPkO1 x5E9Xj9Cw4WdezmrJ4L zpSYuXyJuAebeMLo8Y5 RkPjwvdHI+YF22XBFuG S79UNy4HUM7eUiiYBsq CBBvR2YwsJ8wWpKdSHQ kZGRkOyc+PHRhYmxlIH dpZHRoPScxMDAlJyBzd RtpHZ7nSg8zHKVvFOIo sPbmqTCcJmJpk3blHJI oDWqgVG8wrUyjM9SlqA I0XEGif7n4Zu06W13dX 3JvdXA+MCIfyNS3tZI0 kF9aGkQdAeR5NEdnV61 1VrXecNKkVuhia4fqr1 cbaFp0FmZ7MVCifiBcs HsgLCH5a4WdWi70Z64n IHdpZHRoPSIxNSUiIHZ euYuhfz8xsA1iUm2+PG VqzWT5wVI1rC7zAcQyG uF4SFguY206CkYrbLFp Rlkpa3moa0omfBh0CqY zDERkzuLayZjaZQP3s7 AfGa28Q5QolOfxq1DxI pc3ex40yTHcj6U3vJB5 C1JzYFGxcmanyPJzrWs wLK3jUQOdziyoUZNmmX 1lXSPsS9e9VdZsRtC8N YtjI6PccrL7UNPecQZm XRRqiJQKpK4aqkley6g oknypOcBiEJZnDGk7NE f7PCYktCjzIcBtAPG3T wB8YTF3tQQjmZ1ilOtv stmyyV1yRuz+IUA0bVL cmLVYKW0aFcoupVU+PH WqBVV0gXxyWFnnQGIct Y1nUYKnO3a1AeFtRmB0 XIanJ9AusaE4OLWebZN oCASuuLVPjO6knbbar9 bqthaxTiRaHIUjCMp8Y Rv8TABloTaqMtFdPCG6 IxQ7QWZ0cYWqyG4znWl umtmrhZ8cErn+QmlydG clFMN7ZCp0L1DxGpi8U ASgwGtaLF8yuZNwKYws Ba8mhWtvmEpfMH5gLQR utabfw929CrIxw2hxUI AxiPOdLSrmTSS7H09ou 1N2JQPsVRKpIOW7jHQ5 dX0fmPjtjarlhVDthDl gdmVydGljYWwtYWxpZ2 34PCBjeXuqGaIhPTz8Y 1MwEfs8TWMdvRiaZO1p iVNtDHunUd3urKoaaTo aPO8rWCRavxjfy304Is Mmd3vnKCSkxFCiMHbkK BR1W05fu0D2DFBxUOUb PEI8oXP0iR9tjDloqkg gbGVmdDsgdmVydGljYW epODisH456SEFybTfpM rGyaVp0T3PuHjp3WGFd pMizRZ9yrYEfYOagSo8 ubFszbMlmGP2kNBBukh rqq669GsNjr7ekWGYao YExGJjfUDH6L61ml9T7 LFNeODLtPUA4rMF8aC4 hbGlnbjogbGVmdDsgdm PhjEgrCIabTNbmK632J HRvcDsnPlBhdGllbnQg CPcpVHo1T5EqDamylAF +MG64MFBjLF71uRVtnX Gvc5pwoRj4DhHbSWXcL CF6aNasNOeqf6BuLTUr Z74qiQOce8R0HFJprAa nqXFcIuKroGU0kE9eUO eyfuxfa1gtxdjqWkaxy 1dtjm07zV82N60zAPrr ZHRoPSIzMCUiIHZhbGl lye1waN7yXm6+PGNvbC D0mHF0cV6gPYIvJyQ7F TpdL680OhIqeVLzTmrr o5mlx0snpUr4ZtG6IFP rhbZdjZrtVHE6h0GsJm 64O71vZTnxUUUvTVRgH UDuQXHcnMoicx4wjT9b Ii8+TFWfrKK9bXH4vD8 gXxDmLhS2KZyhP273Lu BluPPfBdqyA23jE7Zmh XA+WQXqUmh2FVCpoCqu DN9caIRyMEspOw4fXKK 7ObBcSaLzGCxcO6KnOP XcqskwxhcdcRP4NFSmB DEhyJ85Kf8bdFkjEEHy vDFLoC3rahobt1hsnds fTzHaQVXeDPl5VFu9BD GevLykMqSrAEV9OnX2K UB6zVFqaA7ceAlwjknv xX6uT3XiUUGeyxjkSm0 5eN2tBsDxZwG9LUwlBj c+DDUMKPxaY1XOOrcBK FQgTTwvdGQ+PHRkIHN0 nDgvEMzhCURqeY1hDDV cP2f3RyLhHgR3BRfyB4 OdLMOsispuFc76iH2aI bCsLkG1RYnlO7IqiuB5 FREpdFFhISzyLBM0Z91 mr9U9JXXxZJUuUWJ9uX Q0pP5msHpavhoweFNpl DsgdmVydGljYWwtYWxp J695OICipTxjFiHnAuI aYjN1SWK4M5FoOrk7EZ CxdQohBO6abMHoUAcsU s8kuCcuqUvoGE9cREWr agbyKKGakG3mYFDweTW owMpjOA8xGYMivxrjb0 09BbZaZKD1AQGdcGEbA 4VynN4zRyBvDPKxQCLj Y9CjaYLdOBhhM846PBq gRuY4MXUuztWsV3TcPW AlvQutKzP4x1G4Pd24S CBZZWFyczwvdGQ+PHRk JQE8lYinBVayXKAdjE4 hTGLwB1m9ExCdMyF6BM kyW4BdFPBbsjfpYy43k W4lSpTdXqB9NBvqM1Qj fhT3EHFbzUPtYZzhILP 0I67zv4Y0NICaBZJuKF H9qLP8zH0hrHnkaytxu GVmdDsgdmVydGljYWwt JXykU263REYogLezJgP lbWFsZTwvdGQ+PHRkIH O4nUeqKXnwYBUzoA8dB CZdP3d8PwDfAiN3ZKff M4WuNWIrjmitAv00wO5 hGsTsYiF7TYqvM8Sxyq J5EXEtwBDlKXwdNJY9M 97yo4X0JDXbFPWcHHT9 uRY1uL6dyMbqhwljaBU mdDsgdmVydGljYWwtYW cjK123NWWikObbEh70y RNuqMgwxtV3P6RaNror dHI+PA71URNvWZ58xOD yfHJqb8yhcNx4ReUkDR GgGHY2fQseNMfpo2DpS KEjL34tfCBob0F0KXZe vPjekXLhGrVdyNT1rS7 iIGnyniqpo3ltoprnXo epj1payu91kE15Z86jN HdpZHRoPSIzMCUiIHZh tKzbvp2msA8kIl4+PGN vdDL8eOX4rZ4eYiNqDc E3URnyW615NxGmyLYdI zdbp2oax4lgvSp4GvQu YDPgvnYfeOhxNDI8a2R xAo27D56vCNxmVMDtON SdVRQxORYaoDnoxi8hk G9wIi8+YH7yn3ihjg66 aS50cSO+VXWiJGP1uEe eDZwjTCVmhP0zMOtoTv Y4HTQjQlEwaC58cGBvQ NfrHv8kpUyzfGttZV8x SNOotbiid652FjKci9y oALKcvRGhLTzmOFE8P3 0qa2E9BZJwRIFrEMO5b QC4xF1edExezaddcYIh dDsgdmVydGljYWwtYWx dX973YNKcqUhaLnZncG XmN5wdsuSJCG4tRtbdb GQ+FUFzYUO8oVqbODgn HPUutF2wVLVoY4s3JmI wKeT6QQvmE1OautN4EB KxgVVaGXTfgWVNhG9hj xldb3lrrktoRbKpCVCm YHz1RAp2TGZvlXqrSaW xCBS7XnU9VKP0wSIbmO 9ilPgyuvoxuD2fGjj+R klOOjwvdGQ+PHRkIHN0 tRksHKppDXNryR0eZJD jV6n7MlDuWqL8UBeqR2 UucqT9CYZlcTWiCYUde YFBoC4beypmo9eoosfq BgRePHXjHPf6XZi3KXH tqIroKiDjIRT8OmC2NV Z9yMMzoS7ypLgvenaky G9wOyc+TVJOOjwvdGQ+ DYQoFLO3fFexEKpeVMZ kjD6uDEYeO7a2EwWuKz Y2PMmsE8QbwkG2EMNbg TIoNJAzcSAHgR1clztm t9ffczqbOiLiNYTsPXl 0THa7XUDxlMbvGcCiXY G7XoX6AGT6xMCveQ9zb NmdthimlQ8dEuc+UGF5 ZDZ9OL87FY18Q0VyUkx vdGFibGU+PHRhYmxlIH dpZHRoPScxMDAlJyBzd WsyWO4sKd8eIOOmTSGn bGxhcHNlOiBjb (more content not included)... [facility] IgA, Quant.on 05-20-2024 IgA [Mass/Vol] 252 mg/dL Invalid Interpretation Code 64422 [facility] Comment on above: Result Comment: Perf ormed at: [address] [id number] PhD Ramila Ackerman Performed By: #### 1 [id number] #### [facility] [address] [place] [address] IgE, Quanton 05-20-2024 IgE Qn 30 International_Unit/ mL Invalid Interpretation Code 6495 [facility] Comment on above: Result Comment: Perf ormed at: [facility] [address] [place], [place] [id number] MD Zack David Performed By: #### 1 [id number] #### [facility] [address] [place] [address] IgG, Quant.on 05-20-2024 IgG [Mass/Vol] 1137 mg/dL Invalid Interpretation Code 331-6425 [facility] Comment on above: Result Comment: Perf ormed at: [place] [id number] [place], [place] [id number] PhD Ramila Ackerman Performed By: #### 1 [id number] #### [facility] [address] [place] [address] IgM, Quanton 05-20-2024 IgM [Mass/Vol] 102 mg/dL Invalid Interpretation Code 26-217 [facility] Comment on above: Result Comment: Perf ormed at: [employer] [id number] PhD Ramila Ackerman Performed By: #### 1 [id number] #### [facility] [address] [place] [address] Vitamin D 25 Hydroxyon 05-14 25-hydroxyvitamin D3 [Mass/Vol] 46.2 ng/mL Normal 30.0-100.0 [facility] Comment on above: Performed By: #### 5 [id number] #### [facility] [address] [place] [address] BMPon 05-13-2024 Anion gap [Moles/Vol] 12 mmol/L Normal 6-16 [facility] Comment on above: Performed By: #### 2 [id number] #### [facility] [address] [place] [address] Calcium [Mass/Vol] 9.8 mg/dL Normal 8.9-11.1 [facility] Comment on above: Performed By: #### 2 738252 #### [facility] [address] [place] [address] Chloride [Moles/Vol] 104 mmol/L Normal 101-111 [facility] Comment on above: Performed By: #### 2 067962 #### [facility] [address] [place] [address] CO2 [Moles/Vol] 25 mmol/L Normal 21-31 [facility] Comment on above: Performed By: #### 2 [id number] #### [facility] [address] [place] [address] Creatinine [Mass/Vol] 0.9 mg/dL Normal 0.5-1.3 [facility] Comment on above: Performed By: #### 2 118697 #### [facility] [address] [facility] [place] [address] Glucose [Mass/Vol] 86 mg/dL Normal 55-199 [facility] Comment on above: Performed By: #### 2 747375 #### [facility] [address] [place] [address] Potassium [Moles/Vol] 4.2 mmol/L Normal 3.5-5.3 [facility] Comment on above: Performed By: #### 2 840844 #### [facility] [address] [place] [address] Sodium [Moles/Vol] 137 mmol/L Normal 135-145 [facility] Comment on above: Performed By: #### 2 424689 #### [facility] [address] [place] [address] Urea nitrogen [Mass/Vol] 20 mg/dL Normal 5-21 [facility] Comment on above: Performed By: #### 2 946746 #### [facility] [address] [place] [address] Urea nitrogen/Creatinine [Mass ratio] 22 No Units High 10-20 [facility] Comment on above: Performed By: #### 2 152626 #### [facility] [address] [place] [address] CBC w/ Auto Diffon 4 Basophils/100 WBC (Bld) 0.4 % Normal 0.0-2.0 [facility] Comment on above: Performed By: #### 2 817643 #### [facility] [address] [place] [address] Basophils/Leukocytes Auto (Bld) [Pure # fraction] 0.0 E9/L Normal 0.0-0.2 [facility] Comment on above: Performed By: #### 2 265121 #### [facility] [address] [place] [address] Eosinophils (Bld) [#/Vol] 0.0 E9/L Normal 0.0-0.5 [facility] Comment on above: Performed By: #### 2 249173 #### [facility] [address] [place] [address] Eosinophils/100 WBC (Bld) 0.7 % Normal 0.0-8.0 [facility] Comment on above: Performed By: #### 2 017492 #### [facility] [address] [place] [address] Erythrocyte distribution width (RBC) [Ratio] 12.7 % Normal 10.9-14.2 [facility] Comment on above: Performed By: #### 2 274629 #### [facility] [address] [place] [address] Hematocrit (Bld) [Volume fraction] 41.2 % Normal 34.0-46.0 [facility] Comment on above: Performed By: #### 2 862812 #### [facility] [address] [place] [address] Hemoglobin (Bld) [Mass/Vol] 13.9 g/dL Normal 12.0-16.0 [facility] Comment on above: Performed By: #### 2 920216 #### [facility] [address] [place] [address] Lymphocytes (Bld) [#/Vol] 1.6 E9/L Normal 1.0-4.0 [facility] Comment on above: Performed By: #### 2 946243 #### [facility] [address] [place] [address] Lymphocytes/100 WBC (Bld) 22.8 % Normal 14.0-50.0 [facility] Comment on above: Performed By: #### 2 083323 #### [facility] [address] [place] [address] MCH (RBC) [Entitic mass] 30.7 pg Normal 27.0-34.0 [facility] Comment on above: Performed By: #### 2 802244 #### [facility] [address] [place] [address] MCHC (RBC) [Mass/Vol] 33.8 g/dL Normal 31.4-36.0 [facility] Comment on above: Performed By: #### 2 515764 #### [facility] [address] [place] [address] MCV (RBC) [Entitic vol] 90.8 fL Normal 80.0-100.0 [facility] Comment on above: Performed By: #### 2 180303 #### [facility] [address] [place] [address] Monocytes (Bld) [#/Vol] 0.4 E9/L Normal 0.2-1.0 [facility] Comment on above: Performed By: #### 2 138413 #### [facility] [address] [place] [address] Neutrophils (Bld) [#/Vol] 5.0 E9/L Normal 2.0-7.5 [facility] Comment on above: Performed By: #### 2 213822 #### [facility] [address] [place] [address] Neutrophils/100 WBC (Bld) 70.3 % Normal 36.0-75.0 [facility] Comment on above: Performed By: #### 2 083700 #### [facility] [address] [place] [address] Platelet mean volume (Bld) [Entitic vol] 8.6 fL Normal 6.4-10.8 [facility] Comment on above: Performed By: #### 2 579327 #### [facility] [address] [place] [address] Platelets (Bld) [#/Vol] 299.0 E9/L Normal 150.0-500.0 [facility] Comment on above: Performed By: #### 2 274436 #### [facility] [address] [place] [address] RBC (Bld) [#/Vol] 4.5 E12/L Normal 4.3-5.9 [facility] Comment on above: Performed By: #### 2 491195 #### [facility] [address] [place] [address] WBC corrected for nucl RBC Auto (Bld) [#/Vol] 7.1 E9/L Normal 4.0-11.0 [facility] Comment on above: Performed By: #### 2 567284 #### [facility] [address] [place] [address] CHEMISTRYOrdered By: SYSTEM SYSTEM on 05-13-2024 Anion [...] for Treatmenton 05-01 Consent for Treatment [id number] DB#1.00TIFF Normal [facility] Family Medicine Office/Clini c Noteon 05-13-2024 [...] significant abnormalities. A DEXA scan obtained from [place] revealed the presence of osteoporosis. Her fracture [...] aids in arterial relaxation. 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 [facility] Comment on above: Result Comment: Elec [...] 05-13 TSH Qn 2.00 m[IU]/L Normal 0.34-5.60 [facility] Comment on above: Performed By: #### 1 [id number] #### [facility] [address] [place] [address] eGFRon 05-13-2024 eGFR 67 mL/min/1.73 m2 Normal >=59 [facility] Comment on above: Order Comment: Order added by Discern Expert. Performed By: #### 1 [id number] #### [facility] [address] [place] [address] Ambulatory Visit Summaryon 0 05-12-2024 Ambulatory Visit Summary KERMIT ROSEN :1950 Visit Date:05/12/2024 Ambulatory Visit Instructions Your Diagnosis Pneumonia Fatigue Chronic sinusitis with recurrent bronchitis Varicose veins of calf Otitis media of left ear Bronchitis, not specified as acute or chronic Your Care Team Attending Physician - Vilma John Primary Care Physician - Vilma John This Is Your Medications List [facility] Prescription (spacer) Non-Formulary Medication (NAC Detox Regulators) [...] sertraline (sertraline 50 mg Tab) thyroid desiccated ([place] Thyroid 30 mg Tab) valsartan (valsartan 160 [...] Follow-Up Appointments Friday 11:20 AM EDT With: Esvin AVILES, Vilma Rivera Where: [facility] Invalid Interpretation Code [address], [place] [address]- \.br\ You Need to Complete the Following\.br\ YOSELIN w/Reflex if POS, Blood, Routine collect, 05/12/24, Order for future visit, Lab Collect, Chronic sinusitis with recurrent bronchitis [facility] Patient Educationon 05-12-20 Patient Education Cardiovascular [...] these instructions at home: Medicines ? Take fghx-twp-sqqgqpr and prescription medicines only as told by [...] ? Y (more content not included)... [facility] Ambulatory Visit Summaryon 0 05-06-2024 Ambulatory Visit Summary KERMIT ROSEN :1950 Visit Date:05/06/2024 Ambulatory Visit Instructions Your Diagnosis Pneumonia, Pneumonia BMI 23.0-23.9, adult Your Care Team Attending Physician - FABIOLA AVILES, ZHOU Primary Care Physician - Esvin AVILES, Vilma Rivera This Is Your Medications List [facility] Prescription (spacer) Non-Formulary Medication (NAC Detox Regulators) [...] sertraline (sertraline 50 mg Tab) thyroid desiccated ([place] Thyroid 30 mg Tab) valsartan (valsartan 160 [...] 2:40 PM EDT With: Vilma John Where: [facility] Invalid Interpretation Code [address], [facility] [place] [address]- \.br\ Friday 1:00 PM EDT \.br\ With:\.br\ Where: [facility] Office/Clini c Noteon 05-06-2024 Family Medicine Office/Clinic Note HPI Staff Kermit aLfleur presents today for acute visit for sore [...] did offer her pulmonary rehab or a eddy current inspector referral, but she is not yet interested. [...] day(s), # 7 tab(s), Refills(s) 0, Pharmacy: [facility], 154, cm, 05/06/24 15:09:00 EDT, [...] 0.25 mg= 1 tab(s), Oral, Daily, PRN [place] Thyroid 30 mg Tab, 30 mg= 1 [...] K2 zinc (more content not included)... [facility] Comment on above: Result Comment: Elec [...] keep secretion (more content not included)... [facility] Comment on above: Result Comment: Elec tronically Signed By: Vilma John\.br\Date and Time Signed: 04/16/24 05:17 EDT\.br\Electronically Co-Signed By: Floridalma Soilman\.br\Date and Time Co-Signed: 04/14/24 12:24 EDT Ambulatory [...] sertraline (sertraline 50 mg Tab) thyroid desiccated ([place] Thyroid 30 mg Tab) valsartan (valsartan 160 [...] 11:20 AM EDT With: Vilma John Where: [facility] Normal [address], [place] [address]- \.br\ Medications\.br\ What How Much When Why Instructions\.br\ New brompheniramine/ dextromethorphan/ PSE (Bromfed DM oral syrup) 5 Milliliter By Mouth 4 times a day as needed for for cough and congestion Bronchitis Flu-like symptoms Pickup at [facility] 1985\.br\ New methylPREDNISolone (Medrol 4 mg Tab) 1 Packets By Mouth As Directed Bronchitis Flu-like symptoms Duration: 6 Days as directed on package labeling Pickup at [facility] 1985\.br\ Unchanged albuterol (Ventolin HFA 90 mcg/ [...] questions or concerns \.br\ Unchanged thyroid desiccated ([place] Thyroid 30 mg Tab) 1 Tablets By [...] if questions or concerns \.br\ Pharmacy Information\.br\ [facility]: [address] [facility] [place], [place] [id number] [phone]\.br\ \.br\ What How Much When Comments\.br\ Stop [...] for choosing us for your care.\.br\ \.br\ [facility] Patient Educationon 04-14-20 Patient Education Infectious [...] to help relieve symptoms, such as: ? Bfai-tih-nzcpzqn cold medicines. ? Cough suppressants. Coughing is [...] other clear broths. General instructions ? Take qaiv-oom-vrjvhtn and prescription medicines only as told by [...] and water are not available, use hand supervisor doping. ? Avoid touching your mouth, face, eyes, [...] emergency. Get help (more content not included)... [facility] Provider Letteron 04-14-2024 Provider Letter April 14, 2024 KERMIT ROSEN [address] [place] [address] : 1950 To Whom It May Concern, Please excuse above patient from work. Date of Illness: From: 04/12/2024 To: 04/06/2024 May Return to Work On: 04/19/2024 Restrictions: None Comments: None Sincerely, [facility] [address] [place] [address], [place] [address] [facility] XR Shoulder Complete Lefton 03-12-2024 XR Shoulder [...] mGy = na DAP = na [facility] Consent for Treatmenton 03-01 Consent for Treatment [id number] B4#1.00TIFF Normal [facility] Family Medicine Office/Clini c Noteon 02-09-2024 [...] and MRI results. Cardiac health. The patient's resolution analyst, Dr Mariscal, has advised on continuing her [...] statin medication. Hypothyroidism. She is currently taking [place] Thyroid 30 mg, which seems to be effective. She believes that iodine significantly benefits her thyroid function; however, she is experiencing hair loss, which she attributes to the use of generic medication. She was transitioned to the generic version at [facility]. She prefers the branded version. She expresses [...] emergency care (more content not included)... [facility] Comment on above: Result Comment: Elec [...] This Is Your Medications List thyroid desiccated ([place] Thyroid 30 mg Tab) Contact prescribing physician [...] 11:20 AM EDT With: Vilma John Where: [facility] Normal [address], [address] [place] [id number]- \.br\ Medications\.br\ What How Much When Why Instructions\.br\ Changed thyroid desiccated ([place] Thyroid 30 mg Tab) 1 Tablets By Mouth Every day Hypothyroidism no Generic substitutions please - Pickup at [facility]\.br\ Unchanged albuterol (Ventolin HFA 90 [...] if questions or concerns \.br\ Pharmacy Information\.br\ [facility]: [address] [place] [phone]\.br\ Allergies\.br\ Citalopram Hydrobromide (Unknown)\.br\ propranolol (hives)\.br\ diclofenac [...] for choosing us for your care.\.br\ \.br\ [facility] Patient Educationon 02-06-20 24 Patient Education Endocrinology Hypothyroidism Hypothyroidism is when [...] Follow these instructions at home: ? Take yqvg-mxg-qbfeode and prescription medicines only as told by [...] provider. Document Revised: 11/19/2022 Document Reviewed: 11/19/2022 [employer] Patient Education ? 2022 [employer]. Mental [facility] Behavioral [facility] Major Depressive Disorder, [...] can i (more content not included)... [facility] CRPon 02-03-2024 CRP [Mass/Vol] mg/L Normal <=1.9 [facility] Comment on above: Performed By: #### 2 241305, [id number], [id number], [id number] ####[facility] [address] [place] [address] Consent for Treatmenton Consent for Treatment [id number] 9E#1.00TIFF [facility] Free T4on 02-03-2024 Free T4 [Mass/Vol] 0.72 ng/dL Normal 0.58-1.64 [facility] Comment on above: Performed By: #### 2 553089, 7863242, [id number], [id number] #### [facility] [address] [place] [address] Sed Rate Automatedon 024 ESR (Bld) [Velocity] 10 mm/h Normal 0-34 [facility] Comment on above: Performed By: #### 2 784244, 1548931, [id number], [id number] ####[facility] [address] [place] [address] Vit B12on 02-03-2024 Cobalamin (Vitamin B12) [Mass/Vol] 318 pg/mL Normal 50-1500 [facility] Comment on above: Performed By: #### 2 181713, 8387909, [id number], [id number] ####[facility] [address] [place] [address] MRI Brain w/ + w/o Contrasto n [...] Vueway Contrast amount in ml's: 6 [facility] Consent for Treatmenton 01-02 Consent for Treatment [id number] 9B#1.00TIFF [facility] MRA Neck w/o Contraston 01-02 MRA Neck w/o Contrast Exam Date/Time: 01/21/2024 11:54 EST Reason for Exam: Transient ischemic attack (TIA);Other (please specify) Report IMPRESSION: No evidence for significant stenosis. EXAMINATION: MRA Neck w/o Contrast HISTORY: Headaches, migraines. Possible TIA. TECHNIQUE: Routine MRA of the neck without contrast, with 3-D and 2-D ysus-ak-qboodi images. COMPARISON: None RESULT: MRA NECK: Some [...] EL Technologist: DEYSI Technical Comments None [facility] MRI Spine Cervical w/o Contr aramis 01-22-2024 MRI Spine Cervical w/o Contrast Exam Date/Time: 01/21/2024 11:55 EST Reason for Exam: Myelopathy, chronic, cervical spine;Other (please specify) Report [facility] [phone] IMPRESSION: Multilevel degenerative changes cervical spine as [...] EL Technologist: DEYSI Technical Comments None [facility] RAD - MRI Screening Formon 0 01-22-2024 RAD - MRI Screening Form [id number] 711#1.00TIFF [facility] CHEMISTRYOrdered By: SYSTEM SYSTEM on 01-21-2024 Creatinine [Mass/Vol] 0.7 mg/dL Normal 0.5 - 1.3 mg/dL Remisol Chem eGFR 91 mL/min/1.73 m2 Normal >=59mL/min/1.73 m2 Remisol Chem Consent for Treatmenton 01-02 Consent for Treatment [id number] 24#1.00TIFF [facility] Creatinineon 01-21-2024 Creatinine [Mass/Vol] 0.7 mg/dL Normal 0.5-1.3 [facility] Comment on above: Performed By: #### 2 975807, [id number] #### [facility] [address] [place] [address] Physician Orderon 01-21-2024 Physician Order [id number] 162#1.00TIFF [facility] RAD - MRI Screening Formon 0 01-21-2024 RAD - MRI Screening Form [id number] 846#1.00TIFF [facility] eGFRon 01-21-2024 eGFR 91 mL/min/1.73 m2 Normal >=59 [facility] Comment on above: Order Comment: Order added by Discern Expert. Performed By: #### 2 [id number], [id number] #### [facility] [address] [place] [address] Insurance Correspondenceon 0 01-16-2024 Insurance Correspondence [id number] 93#1.00TIFF Normal [facility] Family Medicine Office/Clini c Noteon 01-15-2024 [...] status postlumpectomy. Patient recently established care with sd on October 30. In August she did [...] 50 mg. She does follow with Dr. Lcoke with [facility], she does have history of coronary artery [...] sed ra (more content not included)... [facility] Comment on above: Result Comment: Elec tronically Signed By: Vilma John\.br\Date and Time Signed: 01/15/24 18:55 EST Patient Educationon 01-15-20 24 Patient Education ENT Cough, Adult Coughing is [...] these instructions at home: Medicines ? Take ymnt-fkz-vkfihhn and prescription medicines only as told by [...] a condition that needs treatment. ? Take hrvp-wkh-mcbzsfx and prescription medicines only as told by [...] provider. Document Revised: 12/06/2019 Document Reviewed: 12/06/2019 [employer] Patient Education ? 2022 [employer]. Gastroenterology Vitamin B12 Deficiency Vitamin B12 deficiency [...] are used (more content not included)... [facility] ISTAT XRay CREon 11-04-2023 ISTAT GFR > 60.0 Normal [facility] Comment on above: Result Comment: PERF ORMED BY: [place] [address] PATHOLOGIST PRIMER INSERTING MACHINE OPERATOR BLAKE SMART M.D. Performed By: #### I SCRE #### [address] MR breast BI wo/w con CADon 11-04-2023 MR breast BI wo/w con CAD [facility] [place] [address] [place], [place] [id number] MRI Report Signed Patient: Kermit Rosen MR#: [id number] : 1950 Acct:[id number] Age/Sex: 73 / F ADM Date: 11/04/23 Loc: MR Room: Type: [facility] Attending Dr: Ryley Marinelli Copies to: Ryley Marinelli DO Ordering Provider: Ryley Marinelli DO Date of Service: 11/04/23 MR/MR breast BI wo/w con CAD: Z85.3 BILATERAL BREAST MRI WITHOUT AND WITH INTRAVENOUS CONTRAST CLINICAL HISTORY: History of right-sided breast cancer status post lumpectomy in 2020. COMPARISON: Bilateral breast ultrasound performed at [facility] 12/26/2022 TECHNIQUE: Multisequence, multiplanar imaging of the breasts were obtained before and after the use of IV contrast. All imaged data was reviewed using the Tel[employer] system. The postcontrast images were subtracted and [...] BIO Impression dictated by: Edgar Arellano Jr., D.OJuanita11/04/2023 1:37 PM Dictation Location: [place] [address] Transcribed By: WHITNEY 11/04/23 1337 Dictated By: Edgar Arellano Jr, DO 11/04/23 1327 Signed By: 11/04/23 1337 Normal [facility] No Panel InformationOrdered By: Ryley Marinelli on 11-04-2023 Bedside Estimated GFR (eGFR) > 60.0 [facility] Whole blood creatinine measu rementOrdered By: Ryley Marinelli on 11-04-2023 Creatinine [Mass/Vol] 0.8 mg/dL Normal 0.6-1.3 [facility] Comment on above: ER/ESD physician is notified/shown all ISTAT results.Critical values may be confirmed by laboratory testing ifdeemed necessary by ER attending doctor. Result Comment: ER/E SD physician is notified/shown all ISTAT results. Critical values may be confirmed by laboratory testing if deemed necessary by ER attending doctor. Performed By: #### I SCRE #### [address] Ambulatory Visit Summaryon 1 12-30-2022 Ambulatory Visit Summary KERMIT ROSEN :1950 Visit Date:10/30/2023 Ambulatory Visit Instructions Your Diagnosis Dysuria Mild recurrent major depression Benign essential hypertension Izzy's thyroiditis Vitamin D deficiency Vaginal bleeding problems Nasal septal ulcer BMI 24.0-24.9, adult Tests Performed Urnls Dip Stick Auto w/o Microscopy POC 34330 Your Care Team Attending Physician - Vilma John Primary Care Physician - Vilma John This Is Your Medications List Misc Prescription (spacer) albuterol (Ventolin HFA 90 mcg/inh [...] sertraline (sertraline 50 mg Tab) thyroid desiccated ([place] Thyroid 30 mg Tab) valsartan (valsartan 160 [...] Nasal septal ulcer Refills: 1 Pickup at [facility] Changed albuterol (Ventolin HFA 90 [...] By Mouth Every day Unchanged thyroid desiccated ([place] Thyroid 30 mg Tab) 1 Tablets By Mouth Every day Unchanged valsartan (valsartan 160 mg Tab) 90 EA, TAKE 1 TABLET BY MOUTH ONCE DAILY Unchanged zinc acetate (zinc acetate 50 mg oral capsule) 1 Capsules By Mouth Every day on an empty stomach 1 hour before or 2 hours after eating Pharmacy Information [facility]: [address] [facility] [place], [place] [phone] What How Much When Why Comments Stop Taking fluconazole (Diflucan 100 mg Tab) 1 Tablets By Mouth Every day Sinusitis take once if needed and may repeat if needed Test Results Urnls Dip Stick Auto w/o Microscopy POC 43409 (10/30/2023) Bilirubin Urine Dipstick - Negative Blood Urine Dipstick - Negative Glucose Urine Dipstick - Negative Ketones Urine Dipstick - Negative Leukocytes Urine Dipstick - Negative Nitrite Urine Dipstick - Negative Protein Urine Dipstick - Negative Specific [place] Urine Dipstick - 1.010 Urine Appearance Urine [...] of b (more content not included)... [facility]/Clini c Noteon 10-30-2023 [...] up for HTN CAD 40%- goes to [facility]- Dr Burgos current medication: metoprolol, valsartan [...] Urnls Dip Stick Auto w/o Microscopy POC 03404 2. Mild recurrent major depression (F33.0: Major [...] hypertension) Medication management per Dr. Cottrell with [facility], BP is stable proved from last visit [...] will need rechecked prior next visit. Continue [place] Thyroid 30 mg once daily Refill provided for 90 days F/u PRN Ordered: TSH With T4fr Reflex 5. Vitamin D deficiency (E55.9: Vitamin D deficiency, uns (more content not included)... [facility] Comment on above: Result Comment: Elec tronically Signed By: Vilma John\.br\Date and Time Signed: 10/30/23 11:26 EST Patient [...] may include: ? Your personality traits. ? [place] or conditioned behaviors or thoughts or feelings [...] In the (more content not included)... [facility] DHEAon 10-23-2023 DHEA [Mass/Vol] 103 ng/dL Invalid Interpretation Code 21-402 [facility] Comment on above: Result Comment: This test was developed and its performance characteristics determined by [employer]. It has not been cleared or approved by the Food and Drug Administration. Performed at: [address] [id number] MD Zack David Performed By: #### 2 944057, 5291918, 81043850, 7722141, 80663610, 74282851, 8096882, 2908538, 3047818 ####[facility] [address] [place] [address] Estrogens Totalon 10-23-2023 Estrogen [Mass/Vol] 64 pg/mL Invalid Interpretation Code 40244 [facility] Comment on above: Result Comment: Prep ubertal < 40 Female Cycle: 1-10 Days 16 - 328 11-20 Days 34 - 501 21-30 Days 48 - 350 Post-Menopausal 40 - 244 Performed at: [facility] [address] [id number] MD Zack David Performed By: #### 2 454408, 8271751, 23086104, 9456735, 96541092, 29803155, 6774022, 6519161, 7772195 ####[facility] [address] [place] [address] Testost Totalon 10-23-2023 Testosterone [Mass/Vol] 9 ng/dL Invalid Interpretation Code [facility] Comment on above: Result Comment: Perf ormed at: [facility] [id number] PhD Ramila Ackerman Performed By: #### 2 886915, 8113440, 59314433, 0490600, 95528231, 92489328, 0350649, 1745063, 2221002 ####[facility] [address] [place] [address] Progesteroneon 10-20-2023 Progesterone [Mass/Vol] 1.40 ng/mL Invalid Interpretation Code [facility] Comment on above: Result Comment: REFE RENCE RANGE Males 0.14-2.06 ng/mL Non- Females Follicular 0.10-0.60 ng/mL Luteal 3.00-17.5 ng/mL Midluteal 3.30-18.6 ng/mL Post-Menopausal 0.10-0.40 ng/mL First Trimester 8.30-66.5 ng/mL Second Trimester 18.9-66.1 ng/mL Third Trimester 35.8-312.4 ng/mL Performed By: #### 2 251284, 7475108, 03508866, 4967552, 41059558, 23850540, 6299898, 0642253, 3658097 ####[facility] [address] [place] [address] Auto Diffon 10-18-2023 Basophils/100 WBC (Bld) 0.6 % Normal 0.0-2.0 [facility] Comment on above: Order Comment: Order Added by Discern Expert. Performed By: #### 2 741239, 2952924, 83800651, 1170743, 47056578, 82094007, 1597890, 9765001, 3174345 ####[address] [place] [address] Basophils/Leukocytes Auto (Bld) [Pure # fraction] 0.0 E9/L Normal 0.0-0.2 [facility] Comment on above: Order Comment: Order Added by Discern Expert. Performed By: #### 2 364988, 8759981, 14340957, 8431955, 41584616, 61410516, 3447133, 3420302, 6382467 ####[address] [address] Eosinophils/100 WBC (Bld) 1.3 % Normal 0.0-8.0 [facility] Comment on above: Order Comment: Order Added by Discern Expert. Performed By: #### 2 362764, 3395336, 00764386, 9356024, 80542330, 27056924, 5410732, 4396413, 6305062 ####[address] [place] [address] Eosinophils/Leukocyt es Auto (Bld) [Pure # fraction] 0.0 E9/L Normal 0.0-0.5 [facility] Comment on above: Order Comment: Order Added by Discern Expert. Performed By: #### 2 115555, 3807237, 50178082, 7958883, 01670772, 79707446, 2143535, 3004489, 7430218 ####[address] [place] [address] Lymphocytes/100 WBC (Bld) 45.5 % Normal 14.0-50.0 [facility] Comment on above: Order Comment: Order Added by Discern Expert. Performed By: #### 2 970564, 0646301, 53045697, 7948127, 28402064, 29180457, 4191989, 2182708, 8835006 ####[address] [place] [address] Lymphocytes/Leukocyt es Auto (Bld) [Pure # fraction] 1.6 E9/L Normal 1.0-4.0 [facility] Comment on above: Order Comment: Order Added by Discern Expert. Performed By: #### 2 298157, 4802301, 99100149, 7251617, 23218546, 68920019, 2473740, 8546206, 1415892 ####[address] [place] [address] Monocytes/100 WBC (Bld) 7.9 % Normal 4.0-14.0 [facility] Comment on above: Order Comment: Order Added by Amos Expert. Performed By: #### 2 296161, 6795081, 55773271, 7218056, 23855109, 56835995, 5544356, 5326816, 1140326 ####[address] [place] [address] Monocytes/Leukocytes Auto (Bld) [Pure # fraction] 0.3 E9/L Normal 0.2-1.0 [facility] Comment on above: Order Comment: Order Added by Amos Expert. Performed By: #### 2 982006, 5422399, 12559291, 0472361, 87895023, 75491188, 3134085, 6376073, 7600222 ####[facility] [address] [place] [address] Neutrophils/100 WBC (Bld) 44.7 % Normal 36.0-75.0 [facility] Comment on above: Order Comment: Order Added by Discern Expert. Performed By: #### 2 673769, 1165474, 37523085, 2607173, 83087883, 06264591, 1987214, 7861074, 6126665 ####[facility] [address] [place] [address] Neutrophils/Leukocyt es Auto (Bld) [Pure # fraction] 1.6 E9/L Low 2.0-7.5 [facility] Comment on above: Order Comment: Order Added by Discern Expert. Performed By: #### 2 514031, 4002507, 01644621, 6889570, 23536443, 24630682, 1442279, 2627204, 4910912 ####[facility] [address] [place] [address] CBC w/ Auto Diffon 3 Erythrocyte distribution width (RBC) [Ratio] 13.1 % Normal 10.9-14.2 [facility] Comment on above: Performed By: #### 2 818944, 3515107, 82938915, 3084185, 91977149, 21664642, 7072886, 8649380, 6995420 ####[address] [address] Hematocrit (Bld) [Volume fraction] 43.4 % Normal 34.0-46.0 [facility] Comment on above: Performed By: #### 2 148583, 8200648, 33963055, 6832538, 33582384, 62394039, 2249531, 7741135, 3340078 ####[address] [place] [address] Hemoglobin (Bld) [Mass/Vol] 14.7 g/dL Normal 12.0-16.0 [facility] Comment on above: Performed By: #### 2 942661, 1238588, 26855135, 5056446, 76258623, 84685901, 7678231, 4838208, 8227645 ####[address] [place] [address] MCH (RBC) [Entitic mass] 30.5 pg Normal 27.0-34.0 [facility] Comment on above: Performed By: #### 2 026249, 0336183, 72030144, 1466401, 11766777, 85918687, 1879550, 1079459, 8528268 ####[facility] [address] [place] [address] MCHC (RBC) [Mass/Vol] 33.8 g/dL Normal 31.4-36.0 [facility] Comment on above: Performed By: #### 2 794225, 5157024, 02966928, 1321350, 82768849, 27911812, 2762189, 8348200, 1485405 ####[address] [place] [address] MCV (RBC) [Entitic vol] 90.2 fL Normal 80.0-100.0 [facility] Comment on above: Performed By: #### 2 161316, 6116324, 29555367, 9743846, 50722150, 95328294, 8019480, 8243792, 9021393 ####[address] [address] Platelet mean volume (Bld) [Entitic vol] 9.8 fL Normal 6.4-10.8 [facility] Comment on above: Performed By: #### 2 546508, 0868309, 02210029, 7013309, 62550363, 31834020, 4693412, 0948756, 8241946 ####[address] [address] Platelets (Bld) [#/Vol] 222.0 E9/L Normal 150.0-500.0 [facility] Comment on above: Performed By: #### 2 629051, 6278091, 87688706, 7822874, 09410449, 70983765, 3550319, 0252259, 1281091 ####[address] [address] RBC (Bld) [#/Vol] 4.8 E12/L Normal 4.3-5.9 [facility] Comment on above: Performed By: #### 2 685817, 3071400, 08115495, 3400029, 87257451, 35988890, 4461781, 2104078, 0512526 ####[facility] [address] [place] [address] WBC corrected for nucl RBC Auto (Bld) [#/Vol] 3.6 E9/L Low 4.0-11.0 [facility] Comment on above: Performed By: #### 2 407555, 0062329, 32872930, 1027170, 82358058, 79821068, 1554161, 5700963, 0062593 ####[facility] [address] [place] [address] CHEMISTRYOrdered By: SYSTEM SYSTEM on 10-18-2023 Albumin [...] 216 mg/dL High 120 - 200 mg/dL [facility] Cholesterol in HDL [Mass/Vol] 68 mg/dL Invalid Interpretation Code [facility] Comment on above: Interpretive Data: H DL > or equal to 60 mg/dL: Low cardiovascular risk HDL < 40 mg/dL : High cardiovascular risk Cholesterol in LDL [Mass/Vol] 125 mg/dL Normal <=129mg/dL [facility] Cholesterol in VLDL [Mass/Vol] 17 mg/dL Normal 7 - 40 mg/dL [facility] CO2 [Moles/Vol] 26 mmol/L Normal 21 - 31 mmol/L [facility] Creatinine [Mass/Vol] 0.8 mg/dL Normal 0.5 - 1.3 mg/dL [facility] GFR/1.73 sq M.predicted among non-blacks MDRD (S/P/Bld) [Vol rate/Area] 78 mL/min/1.73 m2 Normal >=59mL/min/1.73 m2 [facility] S Comment on above: Interpretive Data: C hronic kidney disease could be indicated at eGFR's of less than 60 mL/min/1.73m2. Kidney failure is indicated at less than 15 mL/min/1.73m2. Globulin (S) [Mass/Vol] 3.4 g/dL Normal 1.4 - 4.0 gm/dL [facility] Glucose [Mass/Vol] 101 mg/dL Normal 55 - 199 mg/dL [facility] Comment on above: Interpretive Data: I f this glucose result represents a fasting glucose, interpretation should refer to the following reference range: 55-99 mg/dL Potassium [Moles/Vol] 4.3 mmol/L Normal 3.5 - 5.3 mmol/L [facility] Protein [Mass/Vol] 7.3 g/dL Normal 6.0 - 7.8 gm/dL [facility] Sodium [Moles/Vol] 140 mmol/L Normal 135 - 145 mmol/L [facility] Triglyceride [Mass/Vol] 83 mg/dL Normal <=149mg/dL [facility] Urea nitrogen [Mass/Vol] 22 mg/dL High 5 - 21 mg/dL [facility] Urea nitrogen/Creatinine [Mass ratio] 28 mg/mg High 10 - 20 [facility] CMPon 10-18-2023 Albumin [Mass/Vol] 3.9 g/dL Normal 3.3-5.0 [facility] Comment on above: Performed By: #### 2 152313, 0684318, 15171733, 0859232, 29621394, 34956855, 6906344, 1124038, 3047043 ####[facility] [address] [place] [address] Albumin/Globulin (S) [Mass conc ratio] 1.2 Normal 1.1-2.2 [facility] Comment on above: Performed By: #### 2 449562, 0330477, 74905054, 5657927, 04644409, 46608321, 3228090, 9310573, 9910853 ####[facility] [address] [place] [address] ALP [Catalytic activity/Vol] 82 Int._Unit/L Normal 21-98 [facility] Comment on above: Performed By: #### 2 322898, 7039942, 53080998, 5777001, 45496348, 40827496, 0030897, 0845832, 4038473 ####[facility] [address] [place] [address] ALT No additional P-5'-P [Catalytic activity/Vol] 17 Int._Unit/L Normal 6-46 [facility] Comment on above: Performed By: #### 2 423117, 4429084, 68991294, 6918745, 56034584, 15993834, 8348455, 7941576, 8724864 ####[facility] [address] [place] [address] Anion gap [Moles/Vol] 10 mmol/L Normal 6-16 [facility] Comment on above: Performed By: #### 2 342032, 4189238, 96899321, 8384849, 32565195, 73240591, 3615317, 3942634, 7649161 ####[facility] [address] [place] [address] AST [Catalytic activity/Vol] 24 Int._Unit/L Normal 5-43 [facility] Comment on above: Performed By: #### 2 772388, 6960567, 30545138, 3689885, 04875626, 87869573, 5326232, 3426137, 8492844 ####[address] [place] [address] Bilirubin [Mass/Vol] 0.7 mg/dL Normal 0.0-1.1 [facility] Comment on above: Performed By: #### 2 497966, 6354524, 81609187, 2663478, 27131933, 02102295, 5644006, 4097289, 4504316 ####[facility] [address] [place] [address] Calcium [Mass/Vol] 9.4 mg/dL Normal 8.9-11.1 [facility] Comment on above: Performed By: #### 2 982796, 6390336, 24267282, 0164068, 74271392, 55036281, 2671549, 2286366, 7775827 ####[facility] [address] [place] [address] Chloride [Moles/Vol] 108 mmol/L Normal 101-111 [facility] Comment on above: Performed By: #### 2 303246, 1327724, 61505831, 6612194, 21801563, 63067431, 9761600, 1675318, 9606165 ####[facility] [address] [place] [address] CO2 [Moles/Vol] 26 mmol/L Normal 21-31 [facility] Comment on above: Performed By: #### 2 950258, 7484107, 52248700, 3329957, 20178774, 55317492, 0807497, 0509561, 9112392 ####[facility] [address] [place] [address] Creatinine [Mass/Vol] 0.8 mg/dL Normal 0.5-1.3 [facility] Comment on above: Performed By: #### 2 416949, 6843620, 16510672, 1235791, 90756587, 37850783, 2409965, 2896525, 3919325 ####[facility] [address] [place] [address] Globulin (S) [Mass/Vol] 3.4 g/dL Normal 1.4-4.0 [facility] Comment on above: Performed By: #### 2 132062, 8723984, 79772484, 3109625, 07630221, 42945909, 5582409, 0585778, 7493949 ####[facility] [address] [place] [address] Glucose [Mass/Vol] 101 mg/dL Normal 55-199 [facility] Comment on above: Result Comment: If t his glucose result represents a fasting glucose, interpretation should refer to the following reference range: 55-99 mg/dL Performed By: #### 2 373823, 5544445, 81397850, 3062161, 01487413, 26942743, 8272829, 1973519, 8845438 ####[facility] [address] [place] [address] Potassium [Moles/Vol] 4.3 mmol/L Normal 3.5-5.3 [facility] Comment on above: Performed By: #### 2 425109, 4137244, 82680501, 1399923, 80174044, 24738217, 4900976, 8933682, 1558292 ####[facility] [address] [place] [address] Protein [Mass/Vol] 7.3 g/dL Normal 6.0-7.8 [facility] Comment on above: Performed By: #### 2 279520, 5495922, 26665919, 0420492, 57007884, 99451119, 0136592, 3357367, 7367877 ####[facility] [address] [place] [address] Sodium [Moles/Vol] 140 mmol/L Normal 135-145 [facility] Comment on above: Performed By: #### 2 491809, 5582393, 97511498, 9188781, 24733547, 58214849, 6689272, 1348567, 7090276 ####[facility] [address] [place] [address] Urea nitrogen [Mass/Vol] 22 mg/dL High 5-21 [facility] Comment on above: Performed By: #### 2 342937, 4885282, 96404506, 6760863, 00510448, 10787467, 3361506, 4196085, 2231181 ####[facility] [address] [place] [address] Urea nitrogen/Creatinine [Mass ratio] 28 No Units High 10-20 [facility] Comment on above: Performed By: #### 2 916266, 4741204, 38580064, 6959022, 29687242, 36534279, 6331069, 1190489, 4443391 ####[facility] [address] [place] [address] Consent for Treatmenton 10-01 Consent for Treatment [id number] C3#1.00TIFF [facility] HEMATOLOGYOrdered By: SYSTEM SYSTEM on 10-18-2023 [...] 1.6 E9/L Low 2.0 - 7.5 E9/L [facility] HemeAutoSS HEMATOLOGYOrdered By: Opal Castro on 10-18-2023 Erythrocyte distribution width (RBC) [Ratio] 13.1 % Normal 10.9 - 14.2 % FT [facility]eAutoSS Hematocrit (Bld) [Volume fraction] 43.4 % Normal 34.0 - 46.0 % FT [facility] Hemoglobin (Bld) [Mass/Vol] 14.7 g/dL Normal 12.0 - 16.0 gm/dL FT [facility] MCH (RBC) [Entitic mass] 30.5 pg Normal 27.0 - 34.0 pg FT [facility] MCHC (RBC) [Mass/Vol] 33.8 g/dL Normal 31.4 - 36.0 gm/dL FT [facility] MCV (RBC) [Entitic vol] 90.2 fL Normal 80.0 - 100.0 fL FT [facility] Platelet mean volume (Bld) [Entitic vol] 9.8 fL Normal 6.4 - 10.8 fL [facility] Platelets (Bld) [#/Vol] 222.0 E9/L Normal 150.0 - 500.0 E9/L [facility] RBC (Bld) [#/Vol] 4.8 E12/L Normal 4.3 - 5.9 E12/L FT [facility] WBC corrected for nucl RBC Auto (Bld) [#/Vol] 3.6 E9/L Low 4.0 - 11.0 E9/L [facility] Lipid Panelon 10-18-2023 Cholesterol [Mass/Vol] 216 mg/dL High 120-200 [facility] Comment on above: Performed By: #### 2 405642, 7185282, 83812974, 3566874, 69605170, 39196772, 4415213, 3458023, 0754321 ####[facility] [address] [place] [address] Cholesterol in HDL [Mass/Vol] 68 mg/dL Invalid Interpretation Code [facility] Comment on above: Result Comment: HDL > or equal to 60 mg/dL: Low cardiovascular risk HDL < 40 mg/dL : High cardiovascular risk Performed By: #### 2 983858, 8623773, 93604568, 8328060, 19805298, 23006120, 7227527, 5340908, 3278111 ####[facility] [address] [place] [address] Cholesterol in LDL [Mass/Vol] 125 mg/dL Normal <=129 [facility] Comment on above: Performed By: #### 2 194033, 9067256, 47631762, 9649694, 96071474, 80330975, 2280131, 8137450, 2604756 ####[facility] [address] [place] [address] Cholesterol in VLDL [Mass/Vol] 17 mg/dL Normal 7-40 [facility] Comment on above: Performed By: #### 2 930623, 6288816, 60756816, 5925891, 67391138, 24086912, 7395767, 1623664, 9929337 ####[facility] [address] [place] [address] Triglyceride [Mass/Vol] 83 mg/dL Normal <=149 [facility] Comment on above: Performed By: #### 2 909979, 2049878, 31786938, 6495542, 01626361, 47072727, 0904997, 3735246, 1816758 ####[facility] [address] [place] [address] eGFRon 10-18-2023 GFR/1.73 sq M.predicted among non-blacks MDRD (S/P/Bld) [Vol rate/Area] 78 mL/min/1.73 m2 Normal >=59 [facility] Comment on above: Order Comment: Order added by Discern Expert. Result Comment: [employer] Driver sarah kidney disease could be indicated at eGFR's of less than 60 mL/min/1.73m2. Kidney failure is indicated at less than 15 mL/min/1.73m2. Performed By: #### 2 842585, 4503481, 14152608, 7344898, 73919051, 72181251, 9665738, 5834944, 3129505 ####[facility] [address] [place] [address] Ambulatory Visit Summaryon 1 Ambulatory Visit Summary [...] tromethorphan/PSE (Bromfed DM oral syrup) thyroid desiccated ([place] Thyroid 30 mg Tab) Contact prescribing physician [...] Invalid Interpretation Code Mild recurrent major depression [facility] Medicine Office/Clini c Noteon 09-26-2023 Family Medicine Office/Clinic Note Chief Complaint follow up on bronchitis HPI Staff Patient here today for bronchitis follow up. Onset: 1 month Characteristics: developing a cough, OTC tried: doxycycline x7 days, prednisone x5 days, Zpack History of Present Illness Patient of Shannon [place], KSENIA MDD, osteoporosis, Vit D deficiency 73 yr old female with a PMHx anxiety, breast cancer, Izzy's, MDD, osteoporosis, Vit D deficiency, CAD 40%- goes to [facility]- Dr Burgos Patient here today for: [...] colonoscopy Past family History: Social History: Occupation: [employer] Family life: x3, Diet: Fair rn pain management likes herbal remedies Caffeine- sometimes Exercise: Alcohol use: Drug use: Smoking status: Health Maintenance: Routine labs: ordered today Pap (21-64yo): aged out colonoscopy/cologua rd (45-75yo): ? Mammogram (qyr 45-54, q2yrs 55-85): Lung CA LDCT (55-74 yo + 30 PYH): DEXA (F>65, M>70): not due yet _ OSTEOPORSIS AAA (>65 +100cigs/life or FHx): Specialists: Diagrammer: BHARGAV Dentist: BHARGAV Psychology/psychiat ry: none Cardiology: [facility] Review of Systems PHQ Score Initial Depression [...] hypertension) Medication management per Dr. Cottrell with [facility], BP is stable proved from last visit [...] Panel Mo (more content not included)... [facility] Comment on above: Result Comment: Elec tronically Signed By: Vilma John\.br\Date and Time Signed: 09/26/23 10:45 EDT Medication Consenton 023 Medication Consent [id number] 7#1.00TIFF [facility] Medication Consent [id number] 54#1.00TIFF [facility] Patient Educationon 09-26-20 23 Patient Education Forms [...] provider. Document Revised: 08/01/2022 Document Reviewed: 08/01/2022 [employer] Patient Education ? 2022 [employer] [facility] Major Depressive [...] may include: ? Your personality traits. ? [place] or conditioned behaviors or thoughts or feelings [...] low-level depressio (more content not included)... [facility] Patient Educationon 09-16- Patient Education Cardiovascular Hypertension, Adult High blood [...] oz glass (more content not included)... [facility] Ambulatory Visit Summaryon 1 Ambulatory Visit Summary BETYMIKEYDARVIN Squires :1950 Visit Date:09/04/2023 Ambulatory Visit Instructions Your Diagnosis Bronchitis Sinusitis Benign essential hypertension BMI 23.0-23.9, adult Your Care Team Attending Physician - Vilma John Primary Care Physician - Rj AVILES, Camryn Murry This Is Your Medications List [facility] Prescription (spacer) albuterol (Albuterol (Eqv-Ventolin HFA) 90 [...] sertraline (sertraline 50 mg Tab) thyroid desiccated ([place] Thyroid 30 mg Tab) valsartan (valsartan 160 [...] Follow-Up Appointments Friday 11:00 AM EDT With: Rj AVILES, Camryn Murry Where: [facility] Primary Care [facility] Family Medicine Office/Clini c Noteon 09-04-2023 [...] wheezing: oPred (more content not included)... [facility] Comment on above: Result Comment: Elec tronically Signed By: Vilma John\.reg\Date and Time Signed: 09/04/23 10:33 EDT Patient [...] oz glass (more content not included)... [facility] Consent for Treatmenton 08-02 Consent for Treatment [id number] D1#1.00CD:127 [facility] XR Chest 2 Viewson XR Chest [...] mGy = na DAP = na [facility] Family Medicine Office/Clini c Noteon 08-19-2023 Family Medicine Office/Clinic Note Chief Complaint pt here for new to sd, 6 month f/u. concerns of cough, onset few weeks. [facility] Staff Medicare wellness: due Last routine labs: 07/12/22 smoker status: never Mammogram (qyr 45-54, q2yrs 55-75): due- refused colonoscopy/cologua rd (45-75yo): utd DEXA (F>65, M>70): utd flu vaccine status: due dep- 7 christiano- 13 History of Present Illness Patient is 73-year-old female presenting today for 6-month follow-up of thyroid and vitamin D levels. Patient used to see Malinda Rubio CNP at [place] office. Overall, pt reports feeling ongoing cough. [...] oncology. Pt has MRI approved, will call [facility] to get appt scheduled. Patient is hypothyroid Izzy's thyroiditis Compliant with medication. Is taking on an empty stomach. Current medication dose: [place] Thyroid 30mg qd Pt denies sx of memory loss, increased weight, menorrhagia, skin/hair dryness, mental slowness, increased tiredness, intolerance to cold, raised BP, energy loss, depression, slow reflexes or constipation at this time. Osteoporosis?not currently medications. Last DEXA done at [place]. Will be starting Calcium and Vit D [...] Mouth: mucous membranes pink, moist and intact. [place] posterior oropharynx, no palatal inflammation, uvula midline, [...] Sertraline 50 (more content not included)... [facility] Comment on above: Result Comment: Elec tronically Signed By: Rj AVILES, Camryn Murry\.reg\Date and Time Signed: 08/19/23 11:47 EDT Pre-Certification Formon Pre-Certification Form [id number] 5E#1.00CD:127 [facility] Dexa Scanson 08-12-2023 Dexa Scans [id number] C#1.00CD:127 [facility] Office Visit (Cardiology)on 07-15-2023 Follow-up visit [...] a smoker Tobacco Use Screening; Status:Complete; Done: [id number] Patient Instructions Please bring all medicines, vitamins, [...] 5?mild and insignificant mitral regurgitation by echocardiogram 2017 Surgical History Problems History of Breast biopsy [...] MG Oral TabletTAKE 1 TABLET DAILY NEEDED. [place] Thyroid 30 MG Oral TabletTAKE 1 TABLET [...] Barr; 10/08/2021 (more content not included)... Normal [facility] Tobacco Screening.on 023 Adult depression screening assessment No [facility] [employer] 250 DO Work Phone: Fall risk assessment a) No falls within the last year [facility] [employer] 250 DO Work Phone: Tobacco use status CPHS b) No [facility] [employer] 250 DO Work Phone: Alanine aminotransferase [En zymatic activity/volume] in Serum or PlasmaOrdered By: Jay Jay Mariscal on 07-14-2023 ALT [Catalytic activity/Vol] 13 U/L 7-52 [facility] Aspartate aminotransferase [ Enzymatic activity/volume] in Serum or PlasmaOrdered By: Jay Jay Mariscal on 07-14-2023 AST [Catalytic activity/Vol] 19 U/L 13-39 [facility] Basophils Auto (Bld) [#/Vol] Ordered By: Jay Jay Mariscal on 07-14-2023 Basophils (Bld) [#/Vol] 0.0 10*3/uL 0.0-0.2 [facility] Basophils/100 WBC Auto (Bld) Ordered By: Jay Jay Mariscal on 07-14-2023 Basophils/100 WBC (Bld) 0.9 % . [facility] Calcium [Mass/volume] in Ser um or PlasmaOrdered By: Jay Jay Mariscal on 07-14-2023 Calcium [Mass/Vol] 9.4 mg/dL 8.6-10.3 [facility] Carbon dioxide, total [Moles /volume] in Serum or PlasmaOrdered By: Jay Jay Mariscal on 07-14-2023 CO2 [Moles/Vol] 28.8 mmol/L 21.0-31.0 [facility] Chloride [Moles/volume] in S rina or PlasmaOrdered By: Jay Jay Mariscal on 07-14-2023 Chloride [Moles/Vol] 108 mmol/L 98-107 [facility] Cholesterol [Mass/volume] in Serum or PlasmaOrdered By: Jay Jay Mariscal on 07-14-2023 Cholesterol [Mass/Vol] 220 mg/dL 140-200 [facility] Comment on above: Chol less than 200 m g/dl low riskChol 201-239 mg/dl borderline riskChol 240 mg/dl and greater high risk Cholesterol in LDL Calc [Mas s/Vol]Ordered By: Jay Jay Mariscal on 07-14-2023 Cholesterol in LDL [Mass/Vol] 135 mg/dL 0-100 [facility] Comment on above: LDL ATP III CLASSIFI CATIONLDL less than 100 mg/dL OptimalLDL 100-129 mg/dL Near or above optimalLDL 130-159 mg/dL Borderline highLDL 160-189 mg/dL HighLDL greater than 189 mg/dL Very high Cholesterol in VLDL Calc [Ma ss/Vol]Ordered By: Jay Jay Mariscal on 07-14-2023 Cholesterol in VLDL [Mass/Vol] 30 mg/dL [facility] Creatinine [Mass/volume] in Serum or PlasmaOrdered By: Jay Jay Mariscal 07-14-2023 Creatinine [Mass/Vol] 0.73 mg/dL 0.60-1.20 [facility] Eosinophils Auto (Bld) [#/Vo l]Ordered By: Jay Jay Mariscal on 07-14-2023 Eosinophils (Bld) [#/Vol] 0.1 10*3/uL 0.0-0.45 [facility] Eosinophils/100 WBC Auto (Bl d)Ordered By: Jay Jay Mariscal on 07-14-2023 Eosinophils/100 WBC (Bld) 2.0 % . [facility] Erythrocyte distribution wid th Auto (RBC) [Ratio]Ordered By: Jay Jay Mariscal on 07-14-2023 Erythrocyte distribution width (RBC) [Ratio] 13.0 % 11.9-15.3 [facility] Glucose [Mass/volume] in Ser um or PlasmaOrdered By: Jay Jay Mariscal on 07-14-2023 Glucose [Mass/Vol] 85 mg/dL 70-100 [facility] Comment on above: ADA recommended refe rence rangeRandom Glucose Reference Range is dependent on time and content of last meal. Glucose of more than 200 mg/dL in a nonstressed, ambulatory subject supports the diagnosis of Diabetes Mellitus. Hematocrit Auto (Bld) [Volum e fraction]Ordered By: Jay Jay Mariscal on 07-14-2023 Hematocrit (Bld) [Volume fraction] 40.5 % 34.0-46.4 [facility] Hemoglobin [Mass/volume] in BloodOrdered By: Jay Jay Mariscal on 07-14-2023 Hemoglobin (Bld) [Mass/Vol] 13.6 g/dL 11.8-15.4 [facility] Laboratory - Chemistry and C hemistry - challengeon 07-14-2023 Cholesterol [Mass/Vol] 220\S\220 above high threshold 140-200 [facility] [employer] 250 DO Work Phone: Comment on above: Chol less than 200 m g/dl low risk Chol 201-239 mg/dl borderline risk Chol 240 mg/dl and greater high risk Cholesterol in LDL [Mass/Vol] 135\S\135 above high threshold 0-100 [facility] Libersy roger 250 DO Work Phone: Comment on [...] RBC Auto (Bld) [#/Vol] 4.3 10*3/uL 3.8-11.6 [facility] Lymphocytes Auto (Bld) [#/Vo l]Ordered By: Jay Jay Mariscal on 07-14-2023 Lymphocytes (Bld) [#/Vol] 1.5 10*3/uL 1.00-4.8 [facility] Lymphocytes/100 WBC Auto (Bl d)Ordered By: Jay Jay Mariscal on 07-14-2023 Lymphocytes/100 WBC (Bld) 34.3 % . [facility] MCH Auto (RBC) [Entitic mass ]Ordered By: Jay Jay Mariscal on 07-14-2023 MCH (RBC) [Entitic mass] 30.5 pg 24.7-34.3 [facility] MCHC Auto (RBC) [Mass/Vol]Or dered By: Jay Jay Mariscal on 07-14-2023 MCHC (RBC) [Mass/Vol] 33.6 g/dL 32.0-35.0 [facility] MCV Auto (RBC) [Entitic vol] Ordered By: Jay Jay Mariscal on 07-14-2023 MCV (RBC) [Entitic vol] 90.8 fL 80-100 [facility] Monocytes Auto (Bld) [#/Vol] Ordered By: JayJ ay Mariscal on 07-14-2023 Monocytes (Bld) [#/Vol] 0.3 10*3/uL 0.0-0.8 [facility] Monocytes/100 WBC Auto (Bld) Ordered By: Jay Jay Mariscal on 07-14-2023 Monocytes/100 WBC (Bld) 7.2 % . [facility] Neutrophils Auto (Bld) [#/Vo l]Ordered By: Jay Jay Mariscal on 07-14-2023 Neutrophils (Bld) [#/Vol] 2.4 10*3/uL 1.8-7.7 [facility] Neutrophils/100 WBC Auto (Bl d)Ordered By: Jay Jay Mariscal on 07-14-2023 Neutrophils/100 WBC (Bld) 55.6 % . [facility] No Panel InformationOrdered By: Jay Jay Mariscal on 07-14-2023 Estimated GFR (CKD-EPI) > 60.0 mL/Min [facility] Creatinine Clearance (Chem N/A [facility] No Panel Informationon 07-14 55.6\S\55.[address] [facility] roger 250 DO Work Phone: [phone] 9.3\S\9.3 Normal 6.3-10.7 [facility] roger 250 DO Work Phone: [phone] 189\S\189 Normal 150-450 [facility] roger 250 DO Work Phone: 13.0\S\13.0 Normal 11.9-15.3 -[facility] roger 250 DO Work Phone: [phone] 33.6\S\33.6 Normal 32.0-35.0 [facility] 250 DO Work Phone: [phone] 30.5\S\30.5 Normal 24.7-34.3 [facility] 250 DO Work Phone: 2.4\S\2.4 Normal 1.8-7.7 [facility] 250 DO Work Phone: [phone] 0.1\S\0.1 Normal 0.0-0.45 -[facility] 250 DO Work Phone: [phone] 0.9\S\0.[address] [facility] 250 DO Work Phone: [phone] 2.0\S\2.[address] [facility] 250 DO Work Phone: [phone] 7.2\S\7.[address] [facility] 250 DO Work Phone: [phone] 34.3\S\34.[address] [facility] 250 DO Work Phone: [phone] 0.0\S\0.0 Normal 0.0-0.2 [facility] 250 DO Work Phone: [phone] Comment on above: PERFORMED BY:[facility] [place], [place] [id number] MEDICAL DIRECTORBLAKE SMART M.D. 0.3\S\0.3 Normal 0.0-0.8 [facility] 250 DO Work Phone: [phone] 1.5\S\1.5 Normal 1.00-4.8 [facility] 250 DO Work Phone: [phone] 90.8\S\90.8 Normal 80-100 [facility] 250 DO Work Phone: [phone] 40.5\S\40.5 Normal 34.0-46.4 [facility] 250 DO Work Phone: [phone] 13.6\S\13.6 Normal 11.8-15.4 [facility] 250 DO Work Phone: [phone] 4.46\S\4.46 Normal 3.60-5.00 [facility] 250 DO Work Phone: [phone] 4.3\S\4.3 Normal 3.8-11.6 [facility] 250 DO Work Phone: [phone] > 60.[address] [facility] 250 DO Work Phone: [phone] 8.8\S\8.8 Normal 6.0-15.0 [facility] 250 DO Work Phone: 9.4\S\9.4 Normal 8.6-10.3 -[facility] Demi duran 250 DO Work Phone: 28.8\S\28.8 Normal 21.0-31.0 [facility] Demi duran 250 DO Work Phone: 108\S\108 above high threshold 98-107 -[facility] Demi duran 250 DO Work Phone: 4.6\S\4.6 Normal 3.5-5.1 -[facility] Demi duran 250 DO Work Phone: 141\S\141 Normal 136-145 [facility] Demi duran 250 DO Work Phone: 0.73\S\0.73 Normal 0.60-1.20 [facility] Demi duran 250 DO Work Phone: 16\S\16 Normal 7-25 [facility] Demi duran 250 DO Work Phone: 85\S\85 Normal 70-100 [facility] Demi duran 250 DO Work Phone: Comment on above: Random Glucose Refer ence Range is dependent on time and content of last meal. Glucose of more than 200 mg/dL in a nonstressed, ambulatory subject supports the diagnosis of Diabetes Mellitus. ADA recommended reference range 19\S\19 Normal 13-39 [facility] Demi duran 250 DO Work Phone: 13\S\13 Normal 7-52 [facility] Demi duran 250 DO Work Phone: 4.1\S\4.1 Normal <5.0 [facility] Demi duran 250 DO Work Phone: Comment on above: PERFORMED BY:[place] [address] [place] [phone] MEDICAL DIRECTORBLAKE SMART M.D. 30\S\[address] [facility] [employer] 250 DO Work Phone: 153\S\153 above high threshold 0-149 [facility] [employer] 250 DO Work Phone: Comment on above: TRIG ATP III CLASSIF ICATION TRIG less than 150 mg/dL Normal TRIG 150-199 mg/dL Borderline high TRIG 200-500 mg/dL High TRIG greater than 500 mg/dL Very high Standard traceable to the Center for Disease Conrtrol and Prevention (CDC) test method. 54\S\54 Normal 23-92 [facility] [employer] 250 DO Work Phone: Comment on above: HDL CHOL ATP-III CLA SSIFICATION Cardiovascular Risk HDL > or equal to 60 mg/dL LOW HDL < 40 mg/dL HIGH Nucleated erythrocytes [Pres ence] in Blood by Automated countOrdered By: Jay Jay Mariscal on 07-14-2023 Nucleated RBC Auto Ql (Bld) 0.1 /100{WBC} 0-0.5 [facility] Platelet mean volume Auto (B ld) [Entitic vol]Ordered By: Jay Jay Mariscal on 07-14-2023 Platelet mean volume (Bld) [Entitic vol] 9.3 fL 6.3-10.7 [facility] Platelets Auto (Bld) [#/Vol] Ordered By: Jay Jay Mariscal on 07-14-2023 Platelets (Bld) [#/Vol] 189 10*3/uL 150-450 [facility] Potassium [Moles/volume] in Serum or PlasmaOrdered By: Jay Jay Mariscal on 07-14-2023 Potassium [Moles/Vol] 4.6 mmol/L 3.5-5.1 [facility] RBC Auto (Bld) [#/Vol]Ordere d By: Jay Jay Mariscal on 07-14-2023 RBC (Bld) [#/Vol] 4.46 10*6/uL 3.60-5.00 [facility] Serum or plasma anion gap de terminationOrdered By: Jay Jay Mariscal on 07-14-2023 Anion gap [Moles/Vol] 8.8 mmol/L 6.0-15.0 [facility] Serum or plasma high density lipoprotein (HDL) cholesterol measurementOrdered By: Jay Jay Mariscal on 07-14-2023 Cholesterol in HDL [Mass/Vol] 54 mg/dL 23- [facility] Comment on above: HDL CHOL ATP-III CLA SSIFICATION Cardiovascular RiskHDL > or equal to 60 mg/dL LOWHDL < 40 mg/dL HIGH Serum or plasma total choles terol/high density lipoprotein (HDL) cholesterol mass ratOrdered By: Jay Jay Mariscal on 07-14-2023 Cholesterol.total/Ch olesterol in HDL [Mass ratio] 4.1 {ratio} <5.0 [facility] Sodium [Moles/volume] in Ser um or PlasmaOrdered By: Jay Jay Mariscal on 07-14-2023 Sodium [Moles/Vol] 141 mmol/L 136-145 [facility] Triglyceride [Mass/volume] i n Serum or PlasmaOrdered By: Jay Jay Mariscal on 07-14-2023 Triglyceride [Mass/Vol] 153 mg/dL 0-149 [facility] Comment on above: TRIG ATP III CLASSIF ICATIONTRIG less than 150 mg/dL NormalTRIG 150-199 mg/dL Borderline highTRIG 200-500 mg/dL High TRIG greater than 500 mg/dL Very highStandard traceable to the Center for Disease Conrtrol and Prevention (CDC) test method. Urea nitrogen [Mass/volume] in Serum or PlasmaOrdered By: Jay Jay Mariscal on 07-14-2023 Urea nitrogen [Mass/Vol] 16 mg/dL 7- [facility] WBC Auto (Bld) [#/Vol]Ordere d By: Jay Jay Mariscal on 07-14-2023 WBC (Bld) [#/Vol] 4.3 10*3/uL 3.8-11.6 [facility] Pre-Certification Formon Pre-Certification Form [phone] [id number] [id number]:127 [facility] Patient Educationon 06-29-20 Patient Education Cardiovascular Hypertension, Adult High blood [...] oz glass (more content not included)... Normal [facility] PAP ACOG PANEL 2: 30 to 65on 04-10-2023 . . Normal [facility] Comment on above: Performed By: #### [id number] #### [facility] [address] [place] [address] Dr. Mal Cuenca Age Gdln ACOG Testing Comment Normal [facility] Comment on above: Result Comment: <21 or >65 or no age provided Performed By: #### [id number] #### [facility] [address] [place] [address] Dr. Mal Cuenca DIAGNOSIS: Comment [facility] Comment on above: Result Comment: [place]SA TISFACTORY FOR EVALUATION. Performed By: #### 4 [id number] #### [facility] [address] [place] [address] Dr. Mal Cuenca Methodology: Comment [facility] Comment on above: Result Comment: This liquid based ThinPrep(R) pap test was screened with the use of an image guided system. Performed By: #### 4 [id number] #### [facility] [address] [place] [address] Dr. Mal Cuenca Note: Comment [facility] Comment on above: Result Comment: The Pap smear is a screening test designed to aid in the detection of premalignant and malignant conditions of the uterine cervix. It is not a diagnostic procedure and should not be used as the sole means of detecting cervical cancer. Both false-positive and false-negative reports do occur. . Performed By: #### [id number] #### [facility] [address] [place] [address] Dr. Mal Cuenca Performed by: Comment [facility] Comment on above: Result Comment: Odalis Cook, Carriage Dogger (ASCP) Performed By: #### 4 [id number] #### [facility] [address] [place] [address] Dr. Mal Cuenca QC reviewed by: Comment [facility] Comment on above: Result Comment: Marcelo Webb, Supervisory Carriage Dogger (ASCP) Performed By: #### 4 [id number] #### [facility] [address] [address] [address] Mal Cuenca Recommendation: Comment Normal [facility] Comment on above: Result Comment: Sugg est follow up as clinically appropriate. Performed By: #### 4 [id number] #### [facility] [address] [address] [address] Mal Cuenca Specimen adequacy: Comment Normal [facility] Comment on above: Result Comment: Spec imen processed and examined, but unsatisfactory for evaluation of epithelial abnormality because of excessive lubricant. Performed By: #### 4 [id number] #### [facility] [address] [address] [address] Mal Cuenca US PELVIS AND TRANSVAGon [...] by: IDALIA GUEVARA Date: 2023-03-05 14:11 Normal [facility] CHEMISTRYOrdered By: SYSTEM SYSTEM on 2023 25-hydroxyvitamin D3 [Mass/Vol] 45.7 ng/mL Normal 30.0 - 100.0 ng/mL [facility]isol US BREAST ANDREW LIMITEDon - US BREAST ANDRWE LIMITED Patient: KERMIT ROSEN Exam Date: 12/06/2022 : 1950 Gender:F Ordering : DR DANNY SANTILLAN . Admission #: [id number] Family : Order #: [id number] CLICK HERE TO VIEW EXAM RADIOLOGY REPORT [...] Guevara M.D. on 12/06/2022 at 14:43 Normal [facility] CHEMISTRYOrdered By: SYSTEM SYSTEM on 09-12-2022 [...] [Vol rate/Area] mL/min/1.73 m2 Normal >=59mL/min/1.73 m2 [facility] Chem S Glucose [Mass/Vol] 101 mg/dL Normal 55 - 199 mg/dL [facility] Potassium [Moles/Vol] 4.1 mmol/L Normal 3.5 - 5.3 mmol/L [facility] Sodium [Moles/Vol] 138 mmol/L Normal 135 - 145 mmol/L [facility] Triglyceride [Mass/Vol] 157 mg/dL High <=149mg/dL [facility] Urea nitrogen [Mass/Vol] 19 mg/dL Normal 5 - 21 mg/dL [facility] Urea nitrogen/Creatinine [Mass ratio] 24 mg/mg High 10 - 20 [facility] HEMATOLOGYOrdered By: Opal Castro on 07-12-2022 Hemoglobin (Bld) [Mass/Vol] 14.3 g/dL Normal 12.0 - 16.0 gm/dL [facility] HemeAutoSS MCH (RBC) [Entitic mass] 31.4 pg Normal 27.0 - 34.0 pg [facility] MCHC (RBC) [Mass/Vol] 34.8 g/dL Normal 31.4 - 36.0 gm/dL [facility] MCV (RBC) [Entitic vol] 90.3 fL Normal 80.0 - 100.0 fL [facility] Platelets (Bld) [#/Vol] 207.0 E9/L Normal 150.0 - 500.0 E9/L [facility] RBC (Bld) [#/Vol] 4.6 E12/L Normal 4.3 - 5.9 E12/L [facility] WBC corrected for nucl RBC Auto (Bld) [#/Vol] 3.7 E9/L Low 4.0 - 11.0 E9/L [facility] Laboratory - Chemistry and C hemistry - challengeon 07-12-2022 Cholesterol [Mass/Vol] 129 mg/dL Normal <=129 [facility] 600 DO Work Phone: Cholesterol in LDL [Mass/Vol] 31 mg/dL Normal 7-40 [facility] 600 DO Work Phone: Laboratory - Chemistry and C hemistry - challengeOrdered By: SYSTEM SYSTEM on 07-12-2022 Cholesterol [Mass/Vol] 205 mg/dL High 120 - 200 mg/dL [facility] CO2 [Moles/Vol] 30 mmol/L Normal 21 - 31 mmol/L [facility] Remisol Laboratory - Hematology and Cell countsOrdered By: Opal Castro on 07-12-2022 Erythrocyte distribution width (RBC) [Ratio] 13.1 % Normal 10.9 - 14.2 % [facility] Hematocrit (Bld) [Volume fraction] 41.1 % Normal 34.0 - 46.0 % [facility] Platelet mean volume (Bld) [Entitic vol] 8.9 fL Normal 6.4 - 10.8 fL [facility] No Panel Informationon 07-12 207.0 {E9/L} Normal 150.0-500.0 [facility] 600 DO Work Phone: 90.3 fL Normal 80.0-100.0 [facility] 600 DO Work Phone: 34.8 {gm/dL} Normal 31.4-36.0 [facility] 600 DO Work Phone: 31.4 pg Normal 27.0-34.0 [facility] 600 DO Work Phone: 14.3 {gm/dL} Normal 12.0-16.0 [facility] Casey ladd 600 DO Work Phone: 4.6 {E12/L} Normal 4.3-5.9 [facility] Casey ladd 600 DO Work Phone: [phone] 3.7 {E9/L} below low threshold 4.0-11.0 [facility] Casey ladd 600 DO Work Phone: 9 {mEq/L} Normal 6-16 [facility] Casey ladd 600 DO Work Phone: [phone] 103 mmol/L Normal 101-111 [facility] Casey ladd 600 DO Work Phone: 4.1 mmol/L Normal 3.5-5.3 [facility] Casey ladd 600 DO Work Phone: 138 mmol/L Normal 135-145 [facility] Casey ladd 600 DO Work Phone: 9.5 mg/dL Normal 8.9-11.1 [facility] MarleyAlia ladd 600 DO Work Phone: 24 {No_Units} above high threshold 10-20 [facility] Casey ladd 600 DO Work Phone: 0.8 mg/dL Normal 0.5-1.3 [facility] Casey ladd 600 DO Work Phone: 19 mg/dL Normal 5-21 [facility] MarleyAlia ladd 600 DO Work Phone: 101 mg/dL Normal 55-199 [facility] MarleyAlia ladd 600 DO Work Phone: Comment on above: If this glucose resu lt represents a fasting glucose, interpretation should refer to the following reference range: 55-99 mg/dL >60 Normal >=59 [facility] Casey ladd 600 DO Work Phone: Comment on above: eGFR is race adjuste d. AA=. Chronic kidney disea se could be indicated at eGFR's of less than 60 mL/min/1.73m2. Kidney failure is indicated at less than 15 mL/min/1.73m2. 17 {Int._Unit/L} Normal 6-46 -[facility] lk 600 DO Work Phone: 21 {Int._Unit/L} Normal 5-43 [facility] lk 600 DO Work Phone: 157 mg/dL above high threshold <=149 [facility] lk 600 DO Work Phone: 55 mg/dL [facility] lk 600 DO Work Phone: Comment on above: HDL > or equal to 60 mg/dL: Low cardiovascular riskHDL < 40 mg/dL : High cardiovascular risk PAP ACOG PANEL 2: 30 to 65on 04-23-2022 . . [facility] Comment on above: Performed By: #### [id number] #### [facility] [address] [place] [address] Dr. Mal Cuenca Age Gdln ACOG Testing Comment [facility] Comment on above: Result Comment: <21 or >65 or no age provided Performed By: #### 4 [id number] #### [facility] [address] [place] [address] Dr. Mal Cuenca DIAGNOSIS: Comment [facility] Comment on above: Result Comment: NEGA TIVE FOR INTRAEPITHELIAL LESION OR MALIGNANCY. Performed By: #### 4 [id number] #### [facility] [address] [place] [address] Dr. Mal Cuenca Methodology: Comment [facility] Comment on above: Result Comment: This liquid based ThinPrep(R) pap test was screened with the use of an image guided system. Performed By: #### 4 [id number] #### [facility] [address] [place] [address] Dr. Mal Cuenca Note: Comment [facility] Comment on above: Result Comment: The Pap smear is a screening test designed to aid in the detection of premalignant and malignant conditions of the uterine cervix. It is not a diagnostic procedure and should not be used as the sole means of detecting cervical cancer. Both false-positive and false-negative reports do occur. . Performed By: #### 4 [id number] #### [facility] [address] [place] [address] Dr. Mal Cuenca Performed by: Comment [facility] Comment on above: Result Comment: Nora Canales, Carriage Dogger (ASCP) Performed By: #### 4 [id number] #### [facility] [address] [place] [address] Dr. Mal Cuenca Specimen adequacy: Comment Normal [facility] Comment on above: Result Comment: Sati sfactory for evaluation. Endocervical and/or squamous metaplastic cells (endocervical component) are present. Performed By: #### 4 [id number] #### [facility] [address] [place] [address] Dr. Mal Cuenca Falls Risk Screeningon 10-11 Fall risk assessment b) One or more falls in the last year [facility] [employer] 250 DO Work Phone: Tobacco use status CP b) No -[facility] [employer] 250 DO Work Phone: CNPNon 04-13-2021 CNPN Telephone ([facility]) ---- KERMIT ROSEN ([id number]) 1950 F Date Time Provider Department 04/13/21 NICO NEWELL During your visit today, we recorded the following information about you: Nico Newell MD 04/13/2021 10:00 AM Signed Please Call patient if MyChart note not read to review results/released to My Chart if tests completed at [facility]: normal labs and no inflammation. Repeat YOSELIN [...] Take 20 mg by mouth twice abdirahman* CATERER HELPER THYROID 30 MG TABLET Take 30 mg [...] by GOGO EVANS MA on 04/13/21 Normal [facility] YOSELIN by IFA w/Reflexon 2020 YOSELIN Pattern Negative Normal [facility] Comment on above: Performed By: #### C CP, CRP, WSR, RF, ANAIFR #### [id number] [place], [place] [address] YOSELIN Titer Negative Normal Negative [facility] Comment on above: Result Comment: Norm al range : negative at <1:80 serum dilution. Performed By: #### C CP, CRP, WSR, RF, ANAIFR #### [address] [place], [place] [address] Nuclear Ab IF (S) [Titer] Negative Normal Negative [facility] Comment on above: Result Comment: Norm al range : negative at <1:80 serum dilution. Approximately 6% of patients with connective tissue diseases with low positive EIA values are negative by IFA. Recommend follow-up with specific antinuclear antibodies if clinically indicated. Test performed using Indirect Fluorescence Immunoassay technology (IFA) using HEp-2 cells. Performed By: #### C CP, CRP, WSR, RF, ANAIFR #### [place] [facility] [address] [place], [place] [address] C-Reactive Proteinon 021 CRP [Mass/Vol] mg/L Normal <0.9 [facility] Comment on above: Performed By: #### C CP, CRP, WSR, RF, ANAIFR #### [place] [facility] [address] [place], [place] [address] CCP Antibody, IgGon 04-09-20 21 CCP Antibody, IgG <15 Normal <20 [facility] Comment on above: Result Comment: < 20 units: Negative 20-39 units: Weak Positive 40-59 units: Moderate Positive > 60 units: Strong Positive The following results were obtained with the Heart [employer] QUANTA Lite CCP3 IgG MATT. Anti-CCP values obtained with different manufacturers' assay methods may not be used interchangeably. The magnitude of the reported IgG levels cannot be correlated to an endpoint titer. Performed By: #### C CP, CRP, WSR, RF, ANAIFR #### [facility] [address] [place], [place] [address] CNOVon 04-09-2021 CNOV Office Visit (CHRIS) ---- KERMIT ROSEN ([id number]) 1950 F Date Time Provider Department 04/09/21 [...] Cristin Roblero CNP [address] [facility] [address] PRIMARY CARE PHYSICIAN: Cristin Roblero CNP, EDUCATIONAL CONSULTANT Patient's Name: Kermit Rosen 1950 [address] [facility] [address] Accompanied by: self This consult was requested for my medical opinion regarding the rheumatologic evaluation of the patient's +YOSELIN problems, and my final recommendations will be communicated to the requesting health care provider by way of the shared medical record for internal providers or letter via the [employer] for external providers. April 09, [...] or urethritis: no Renal/liver disease: kidney stone CUPOLA TAPPER/PNS/sz/cva/canc er disease: R breast cancer HEME-Cytopenias/LAD /Clots: [...] Citalopram Hydrobromi (more content not included)... Normal [facility] Rheumatoid Factoron 04-09-20 21 Rheumatoid Factor <10 Normal <16 [facility] Comment on above: Performed By: #### C CP, CRP, WSR, RF, ANAIFR #### [facility] [address] [place], [place] [address] Sed Rate Westergrenon 2020 Sed Rate Westergren 2 mm/hr Normal 0-20 [facility] Comment on above: Performed By: #### C CP, CRP, WSR, RF, ANAIFR #### [facility] [address] [place], [place] [address] XR HAND 3V PA/LAT/OBL BILon 04-09-2021 XR [...] IMPRESSION: Mild interphalangeal degenerative changes and osteopenia. Mineral Technologist: VANNESA Transcribe Date/Time: Apr 09 2021 6:14P Dictated by : MARCELLO VALLEJO MD This examination was interpreted and the report reviewed and electronically signed by: MARCELLO VALLEJO MD on Apr 09 2021 6:15PM EST [id number] ACN Normal [facility] XR HAND GENERAL 3V PA/LAT/OB L BILATon 04-09-2021 [facility] CREATININEon 11-08-2019 Creatinine [Mass/Vol] 0.78 mg/dL Normal 0.50 - 1.05 [facility] Comment on above: Performed By: #### C REAT #### [address] [address] Creatinine [Mass/Vol] mg/dL Normal >60 [facility] Comment on above: Performed By: #### C REAT #### [address] [address] Result Comment: CALC ULATIONS OF ESTIMATED GFR ARE PERFORMED USING THE MDRD STUDY EQUATION FOR THE IDMS-TRACEABLE CREATININE METHODS. CLIN CHEM 2007;53:766-72 ELECTROLYTE PANELon 11-08-20 19 Anion gap [Moles/Vol] 13 mmol/L Normal 10 - 20 [facility] Comment on above: Performed By: #### E LECT #### [address] [address] Chloride [Moles/Vol] 106 mmol/L Normal 98 - 107 [facility] Comment on above: Performed By: #### E LECT #### [address] [address] HCO3 (Bld) [Moles/Vol] 26 mmol/L Normal 21 - 32 [facility] Comment on above: Performed By: #### E LECT #### [address] [address] Potassium [Moles/Vol] 4.0 mmol/L Normal 3.5 - 5.3 [facility] Comment on above: Performed By: #### E LECT #### [address] [address] Sodium [Moles/Vol] 141 mmol/L Normal 136 - 145 [facility] Comment on above: Performed By: #### E LECT #### [address] [address] UREA NITROGENon 11-08-2019 Urea nitrogen [Mass/Vol] 20 mg/dL Normal 6 - 23 [facility] Comment on above: Performed By: #### U KUSUM #### [address] [address] OVER READ - NCon 09-08-2017 OVER READ - NC DATE OF EXAM: Sep 08 2017 11:01AMCLINICAL HISTORY/ Name: KERMIT ROSENSTUDY:OVER READ - NC; 09/08/2017 11:01 amINDICATION:score. Shortness [...] nodule.This interpretation, provided by the radiologists of [facility], excludes evaluation of the cardiovascular system, which iscovered in a separate report issued by the ordering cardiologists. The radiologists of [facility] have no responsibilityfor evaluating the structures of the cardiovascular system.*Follow-up recommendations according to the Fleischner Society Criteria (Ying Tamayo, Guidelines for management of small pulmonary nodules detected on CT scans: A statement from the [facility], Radiology 237: [phone].):<=4 mm:Low Risk Patient (Minimal or no smoking [...] 24 months, or PET and/or biopsy.. Normal [facility] Vital Signs Date Time Vital Sign Value Performing Clinician Levi chavez 10-15-2024 10:04-0500 Blood Pressure Location Vilma Mcallister [facility] 10-15-2024 10:04-0500 Body temperature 100.4 [degF] Vilma Mcallister [facility] 10-15-2024 10:04-0500 Diastolic blood pressure 62 mm[Hg] Vilma Mcallister [facility] 10-15-2024 10:04-0500 Heart rate 83 /min Vilma Mcallister [facility] 10-15-2024 10:04-0500 Respiratory rate 16 /min Vilma Mcallister [facility] 10-15-2024 10:04-0500 SaO2% (BldA) [Mass fraction] 93 % Vilma Mcallister [facility] 10-15-2024 10:04-0500 Systolic blood pressure 118 mm[Hg] Vilma Mcallister [facility] 10-11-2024 13:32-0500 Body height 154.9 cm Jay Jay Mariscal MD Work Phone: [facility] 10-11-2024 13:32-0500 Body mass index (BMI) [Ratio] 23.13 kg/m2 Jay Jay Mariscal MD Work Phone: [facility] 10-11-2024 13:32-0500 Body weight 55.52 kg Jay Jay Mariscal MD Work Phone: [facility] 10-11-2024 13:32-0500 Diastolic blood pressure 68 mm[Hg] Jay Jay Mariscal MD Work Phone: [facility] 10-11-2024 13:32-0500 Heart rate 76 /min Jay Jay Mariscal MD Work Phone: [facility] 10-11-2024 13:32-0500 Systolic blood pressure 116 mm[Hg] Jay Jay Mariscal MD Work Phone: [facility] 07-09-2024 09:38-0400 Blood Pressure Location Vilma Mcallister [facility] 07-09-2024 09:38-0400 Body temperature 97.52 [degF] Vilma Mcallister [facility] 07-09-2024 09:38-0400 Diastolic blood pressure 84 mm[Hg] Vilma Mcallister [facility] 07-09-2024 09:38-0400 Heart rate 65 /min Vilma Mcallister [facility] 07-09-2024 09:38-0400 Respiratory rate 20 /min Vilma Mcallister [facility] 07-09-2024 09:38-0400 SaO2% (BldA) [Mass fraction] 100 % iVlma Mcallister [facility] 07-09-2024 09:38-0400 Systolic blood pressure 132 mm[Hg] Vilma Mcallister [facility] 05-26-2024 11:55-0400 Blood Pressure Location Vilma Mcallister [facility] 05-26-2024 11:55-0400 Body temperature 98.06 [degF] Vilma Mcallister [facility] 05-26-2024 11:55-0400 Diastolic blood pressure 64 mm[Hg] Vilma Mcallister [facility] 05-26-2024 11:55-0400 Heart rate 62 /min Vilma Mcallister [facility] 05-26-2024 11:55-0400 Respiratory rate 18 /min Vilma Mcallister [facility] 05-26-2024 11:55-0400 SaO2% (BldA) [Mass fraction] 96 % Vilma Mcallister [facility] 05-26-2024 11:55-0400 Systolic blood pressure 132 mm[Hg] Vilma Mcallister [facility] 05-26-2024 11:07-0400 Blood Pressure Location Vilma Mcallister [facility] 05-26-2024 11:07-0400 Diastolic blood pressure 64 mm[Hg] Vlima Mcallister [facility] 05-26-2024 11:07-0400 Heart rate 62 /min Vilma Mcallister [facility] 05-26-2024 11:07-0400 Respiratory rate 16 /min Vilma Mcallister [facility] 05-26-2024 11:07-0400 SaO2% (BldA) [Mass fraction] 96 % Vilma Mcallister [facility] 05-26-2024 11:07-0400 Systolic blood pressure 132 mm[Hg] Vilma Mcallister [facility] 05-12-2024 14:51-0400 Blood Pressure Location Vilma Mcallister [facility] 05-12-2024 14:51-0400 Body temperature 98.06 [degF] Vilma Mcallister [facility] 05-12-2024 14:51-0400 Diastolic blood pressure 78 mm[Hg] Vilma Mcallister [facility] 05-12-2024 14:51-0400 Heart rate 65 /min Vilma Mcallister [facility] 05-12-2024 14:51-0400 Respiratory rate 18 /min Vilma Mcallister [facility] 05-12-2024 14:51-0400 SaO2% (BldA) [Mass fraction] 98 % Vilma Mcallister [facility] 05-12-2024 14:51-0400 Systolic blood pressure 130 mm[Hg] Vilma Mcallister [facility] 05-06-2024 15:09-0400 Blood Pressure Location SY HICKS [facility] 05-06-2024 15:09-0400 Body temperature 98.24 [degF] SY HICKS [facility] 05-06-2024 15:09-0400 Diastolic blood pressure 72 mm[Hg] SY HICKS [facility] 05-06-2024 15:09-0400 Heart rate 83 /min SY HICKS [facility] 05-06-2024 15:09-0400 SaO2% (BldA) [Mass fraction] 95 % SY HICKS [facility] 05-06-2024 15:09-0400 Systolic blood pressure 126 mm[Hg] SY HICKS [facility] 04-14-2024 10:30-0400 Diastolic blood pressure 80 mm[Hg] Vilma Mcallister [facility] 04-14-2024 10:30-0400 Mean blood pressure 93 mm[Hg] Vilma Mcallister [facility] 04-14-2024 10:30-0400 Systolic blood pressure 120 mm[Hg] Vilma Mcallister [facility] 04-14-2024 09:37-0400 Blood Pressure Location Vilma Mcallister [facility] 04-14-2024 09:37-0400 Body temperature 97.7 [degF] Vilma Mcallister [facility] 04-14-2024 09:37-0400 Diastolic blood pressure 68 mm[Hg] Vilma Mcallister [facility] 04-14-2024 09:37-0400 Heart rate 60 /min Vilma Mcallister [facility] 04-14-2024 09:37-0400 Respiratory rate 18 /min Vilma Mcallister [facility] 04-14-2024 09:37-0400 SaO2% (BldA) [Mass fraction] 97 % Vilma Mcallister [facility] 04-14-2024 09:37-0400 Systolic blood pressure 140 mm[Hg] Vilma Mcallister [facility] 02-06-2024 10:39-0500 Blood Pressure Location Vilma Mcallister [facility] 02-06-2024 10:39-0500 Body temperature 97.52 [degF] Vilma Mcallister [facility] 02-06-2024 10:39-0500 Diastolic blood pressure 70 mm[Hg] Vilma Mcallister [facility] 02-06-2024 10:39-0500 Heart rate 67 /min Vilma Mcallister [facility] 02-06-2024 10:39-0500 Respiratory rate 18 /min Vilma Mcallister [facility] 02-06-2024 10:39-0500 SaO2% (BldA) [Mass fraction] 98 % Vilma Mcallister [facility] 02-06-2024 10:39-0500 Systolic blood pressure 130 mm[Hg] Vilma Mcallister [facility] 01-15-2024 17:18-0500 Blood Pressure Location Vilma Mcallister [facility] 01-15-2024 17:18-0500 Body temperature 97.88 [degF] Vilma Mcallister [facility] 01-15-2024 17:18-0500 Diastolic blood pressure 80 mm[Hg] Vilma Mcallister [facility] 01-15-2024 17:18-0500 Heart rate 63 /min Vilma Mcallister [facility] 01-15-2024 17:18-0500 SaO2% (BldA) [Mass fraction] 961 % Vilma Mcallister [facility] 01-15-2024 17:18-0500 Systolic blood pressure 138 mm[Hg] Vilma Mcallister [facility] 10-30-2023 09:38-0500 Blood Pressure Location Vilma Mcallister [facility] 10-30-2023 09:38-0500 Diastolic blood pressure 84 mm[Hg] Vilma Mcallister [facility] 10-30-2023 09:38-0500 Heart rate 64 /min Vilma Mcallister [facility] 10-30-2023 09:38-0500 Respiratory rate 18 /min Vilma Mcallister [facility] 10-30-2023 09:38-0500 SaO2% (BldA) [Mass fraction] 98 % Vilma Mcallister [facility] 10-30-2023 09:38-0500 Systolic blood pressure 136 mm[Hg] Vilma Mcallister [facility] 09-26-2023 09:36-0400 Blood Pressure Location Vilma Mcallister [facility] 09-26-2023 09:36-0400 Diastolic blood pressure 86 mm[Hg] Vilma Mcallister [facility] 09-26-2023 09:36-0400 Heart rate 65 /min Vilma Mcallister [facility] 09-26-2023 09:36-0400 SaO2% (BldA) [Mass fraction] 98 % Vilma Mcallister [facility] 09-26-2023 09:36-0400 Systolic blood pressure 120 mm[Hg] Vilma Mcallister [facility] 08-19-2023 11:40-0400 Diastolic blood pressure 78 mm[Hg] Camryn De La Rosa [facility] 08-19-2023 11:40-0400 Mean blood pressure 96 mm[Hg] Camryn De La Rosa [facility] 08-19-2023 11:40-0400 Systolic blood pressure 132 mm[Hg] Camryn De La Rosa [facility] 08-19-2023 10:58-0400 Blood Pressure Location Camryn De La Rosa [facility] 08-19-2023 10:58-0400 Body temperature 97.88 [degF] Camryn De La Rosa [facility] 08-19-2023 10:58-0400 Diastolic blood pressure 88 mm[Hg] Camryn De La Rosa [facility] 08-19-2023 10:58-0400 Heart rate 71 /min Camryn De La Rosa [facility] 08-19-2023 10:58-0400 SaO2% (BldA) [Mass fraction] 95 % Camryn De La Rosa [facility] 08-19-2023 10:58-0400 Systolic blood pressure 160 mm[Hg] Camryn De La Rosa [facility] 07-15-2023 11:07-0400 Diastolic blood pressure 80 mm[Hg] Camryn De La Rosa Work Phone: [facility] [employer] 250 DO Work Phone: 07-15-2023 11:07-0400 Systolic blood pressure 170 mm[Hg] Camryn De La Rosa Work Phone: [facility] [employer] 250 DO Work Phone: 07-15-2023 10:54-0400 Body height 154.94 cm Camryn De La Rosa Work Phone: [facility] [employer] 250 DO Work Phone: 07-15-2023 10:54-0400 Body mass index (BMI) [Ratio] 24.22 kg/m2 Camryn G Missler Work Phone: [facility] [facility] [place] 250 DO Work Phone: 07-15-2023 10:54-0400 Body surface area Derived from formula 1.56 m2 Camryn G Missler Work Phone: [facility] [place] 250 DO Work Phone: 07-15-2023 10:54-0400 Body weight 58.15 kg Camryn Tomas Missler Work Phone: [facility] [place] 250 DO Work Phone: 07-15-2023 10:54-0400 Diastolic blood pressure 80 mm[Hg] Camryn G Missler Work Phone: [facility] [place] 250 DO Work Phone: 07-15-2023 10:54-0400 Heart rate 60 /min Camrynjorge l Kwokler Work Phone: [facility] [place] 250 DO Work Phone: 07-15-2023 10:54-0400 Systolic blood pressure 162 mm[Hg] Camrynjorge l Kwokler Work Phone: [facility] [place] 250 DO Work Phone: 12-17-2022 11:52-0500 Blood Pressure Location Malinda Klonk [facility] 12-17-2022 11:52-0500 Body temperature 96.98 [degF] Malinda Klonk [facility] 12-17-2022 11:52-0500 Diastolic blood pressure 76 mm[Hg] Malinda Klonk [facility] 12-17-2022 11:52-0500 Heart rate 66 /min Malinda Klonk [facility] 12-17-2022 11:52-0500 SaO2% (BldA) [Mass fraction] 94 % Malinda Klonk [facility] 12-17-2022 11:52-0500 Systolic blood pressure 140 mm[Hg] Malinda Klonk [facility] 09-24-2022 11:59-0400 Blood Pressure Location Malinda Klonk [facility] 09-24-2022 11:59-0400 Body temperature 98.78 [degF] Malinda Klonk [facility] 09-24-2022 11:59-0400 Diastolic blood pressure 82 mm[Hg] Malinda Klonk [facility] 09-24-2022 11:59-0400 Heart rate 63 /min Malinda Klonk [facility] 09-24-2022 11:59-0400 SaO2% (BldA) [Mass fraction] 94 % Malinda Klonk [facility] 09-24-2022 11:59-0400 Systolic blood pressure 142 mm[Hg] Malinda Klonk [facility] 09-12-2022 10:36-0400 Diastolic blood pressure 78 mm[Hg] Malinda Klonk [facility] 09-12-2022 10:36-0400 Mean blood pressure 98 mm[Hg] Malinda Klonk [facility] 09-12-2022 10:36-0400 Systolic blood pressure 138 mm[Hg] Malinda Klonk [facility] 09-12-2022 10:29-0400 Blood Pressure Location Malinda Klonk [facility] 09-12-2022 10:29-0400 Body temperature 99.32 [degF] Malinda Rubio [facility] 09-12-2022 10:29-0400 Diastolic blood pressure 80 mm[Hg] Malinda Rubio [facility] 09-12-2022 10:29-0400 Heart rate 73 /min Malinda Rubio [facility] 09-12-2022 10:29-0400 SaO2% (BldA) [Mass fraction] 95 % Malinda Rubio [facility] 09-12-2022 10:29-0400 Systolic blood pressure 142 mm[Hg] Malinda Rubio [facility] 10-11-2021 12:20-0500 Diastolic blood pressure 80 mm[Hg] Cristin Roblero Work Phone: [facility] [place] 250 DO Work Phone: 10-11-2021 12:20-0500 Systolic blood pressure 138 mm[Hg] Cristin Roblero Work Phone: [facility] [place] 250 DO Work Phone: 10-11-2021 11:52-0500 Body height 154.94 cm Cristin Roblero Work Phone: [facility] [place] 250 DO Work Phone: 10-11-2021 11:52-0500 Body mass index (BMI) [Ratio] 23.43 kg/m2 Cristin Roblero Work Phone: [facility] [facility] [place] 250 DO Work Phone: 10-11-2021 11:52-0500 Body surface area Derived from formula 1.54 m2 Cristin Roblero Work Phone: [facility] 250 DO Work Phone: 10-11-2021 11:52-0500 Body weight 56.25 kg Cristin Roblero Work Phone: [facility] 250 DO Work Phone: 10-11-2021 11:52-0500 Diastolic blood pressure 86 mm[Hg] Cristin Roblero Work Phone: [facility] [place] 250 DO Work Phone: 10-11-2021 11:52-0500 Heart rate 60 /min Cristin Roblero Work Phone: [facility] [place] 250 DO Work Phone: 10-11-2021 11:52-0500 Systolic blood pressure 152 mm[Hg] Cristin Roblero Work Phone: [facility] [place] 250 DO Work Phone: Encounters Encounter Date Encounter Type Care Provider Facility Start: 05-25-2025 ambulatory Vilma Mcallister Facil [facility] Start: 11-12-2024 ambulatory Vilma Mcallister [facility]il [facility] Start: 11-03-2024 ambulatory Vilma Mcallister Facil ity:[facility] Start: 10-29-2024 End: 10-29-2024 Clinisync Result Encounter Ryley Wallo DO Work Phone: [facility] External Department Unsolicited Start: 10-29-2024 End: 10-29-2024 Clinisync Result Encounter Ryley Wallo DO Work Phone: [facility] External [facility] Unsolicited Start: 10-15-2024 End: 10-15-2024 ambulatory Vilma Mcallister Facility:[facility] Start: 10-15-2024 End: 10-15-2024 Patient encounter procedure Vilma Mcallister [facility] Start: 10-11-2024 End: 10-11-2024 Office outpatient visit 25 minutes Jay Jay Mariscal MD Work Phone: [facility] Comment on above: Coronary artery dise ase, non-occlusive; Dyslipidemia; Essential hypertension; Mitral valve insufficiency, unspecified etiology; Hypothyroidism, unspecified type; BMI 23.0-23.9, adult; Never smoked tobacco Start: 10-11-2024 End: 10-11-2024 ambulatory JAY JAY Squires [facility] Start: 10-06-2024 End: 10-06-2024 ambulatory Vilma Mcallister Facility:[facility] Start: 10-06-2024 End: 10-06-2024 Patient encounter procedure Vilma Mcallister [facility] Start: 09-10-2024 End: 09-10-2024 Clinisync Result Encounter Ryley Isis DO Work Phone: [facility] External Department Unsolicited Start: 09-10-2024 End: 09-10-2024 Clinisync Result Encounter Ryley Isis DO Work Phone: [facility] External Department Unsolicited Start: 08-25-2024 End: 08-25-2024 ambulatory RYLEY ISIS Not Available Start: 07-09-2024 End: 07-09-2024 ambulatory Vilma Mcallister Facility:[facility] Start: 07-09-2024 End: 07-09-2024 Patient encounter procedure Vilma Mcallister [facility] Start: 06-30-2024 End: 06-30-2024 ambulatory ELEONORA FREY Not Available Start: 05-26-2024 End: 05-26-2024 ambulatory Vilma Mcallister Facility:[facility] Start: 05-26-2024 End: 05-26-2024 Patient encounter procedure Vilma Mcallister [facility] Start: 05-26-2024 End: 05-26-2024 Well adult monitoring check done Vilma Mcallister [facility] Start: 05-26-2024 End: 05-26-2024 ambulatory Vilma Mcallister Facility:[facility] Start: 05-26-2024 End: 05-26-2024 Patient encounter procedure Vilma Mcallister [facility] Start: 05-18-2024 End: 05-18-2024 ambulatory RYLEY GARCIAZIO Not Available Start: 05-13-2024 End: 05-13-2024 ambulatory Vilma Mcallister [facility] Start: 05-13-2024 End: 05-13-2024 Patient encounter procedure Vilma Mcallister [facility] Start: 05-12-2024 End: 05-12-2024 ambulatory Vilma Mcallister Facility:[facility] Start: 05-12-2024 End: 05-12-2024 Patient encounter procedure Vilma Mcallister [facility] Start: 05-06-2024 End: 05-06-2024 ambulatory POLISHING PAD MOUNTER-C SY HICKS Facility: [place] [facility] Start: 05-06-2024 End: 05-06-2024 Patient encounter procedure SY HICKS [facility] [place] Start: 04-14-2024 End: 04-14-2024 ambulatory Vilma Mcallister Facility:[facility] Start: 04-14-2024 End: 04-14-2024 Patient encounter procedure Vilma Mcallister [facility] Start: 03-10-2024 End: 03-10-2024 ambulatory Vilma Mcallister [facility] Start: 03-10-2024 End: 03-10-2024 Patient encounter procedure Vilma Mcallister [facility] Start: 02-06-2024 End: 02-06-2024 ambulatory Vilma Mcallister Facility:[facility] Start: 02-06-2024 End: 02-06-2024 Patient encounter procedure Vilma Mcallister [facility] Start: 02-03-2024 End: 02-03-2024 ambulatory Vilma Mcallister Facility:[facility] Start: 01-22-2024 End: 01-22-2024 ambulatory Vilma Mcallister Facility:[facility] Start: 01-22-2024 End: 01-22-2024 Patient encounter procedure Vilma Mcallister [facility] Start: 01-21-2024 End: 01-21-2024 ambulatory Vilma Mcallister Facility:[facility] Start: 01-21-2024 End: 01-21-2024 Patient encounter procedure Vilma Mcallister [facility] Start: 01-15-2024 End: 01-15-2024 ambulatory Vilma Mcallister Facility:[facility] Start: 01-15-2024 End: 01-15-2024 Patient encounter procedure Vilma Mcallister [facility] Start: 11-27-2023 End: 11-27-2023 ambulatory NORMA R DOLCE Not Available Start: 11-13-2023 End: 11-13-2023 ambulatory NORMA R DOLCE Not Available Start: 11-10-2023 End: 11-10-2023 ambulatory LAWRENCE Zully ROQUE Not Available Start: 11-04-2023 End: 11-04-2023 Patient encounter procedure CATERER HELPER-C Camryn Missaggie Work Phone: [facility] [place] Work Phone: Start: 11-04-2023 End: 11-04-2023 ambulatory CATERER HELPER-C Camrynrachel Kwokaggie Work Phone: [facility] Work Phone: Start: 10-30-2023 End: 10-30-2023 ambulatory Vilma Mcallister Facility:[facility] Start: 10-30-2023 End: 10-30-2023 Patient encounter procedure Vilma Mcallister [facility] Start: 10-18-2023 End: 10-18-2023 ambulatory Vilma Mcallister Facility:[facility] Start: 10-18-2023 End: 10-18-2023 Patient encounter procedure Vilma Mcallister [facility] Start: 09-26-2023 End: 09-26-2023 ambulatory Vilma Mcallister Facility:[facility] Start: 09-26-2023 End: 09-26-2023 Patient encounter procedure Vilma Mcallister [facility] Start: 09-26-2023 End: 09-26-2023 Well adult monitoring check done Vilma Mcallister [facility] Start: 09-22-2023 End: 09-22-2023 ambulatory POLISHING PAD MOUNTER-C Camryn De La Rosa Facility:[facility] Start: 09-04-2023 End: 09-04-2023 ambulatory Vilma Mcallister Facility:[facility] Start: 08-27-2023 End: 08-27-2023 ambulatory POLISHING PAD MOUNTER-C Camryn De La Rosa Facility[facility] Start: 08-19-2023 End: 08-19-2023 ambulatory POLISHING PAD MOUNTER-C Camryn De La Rosa Facility:[facility] Start: 08-19-2023 End: 08-19-2023 Patient encounter procedure Camryn De La Rosa [facility] Start: 08-19-2023 End: 08-19-2023 Well adult monitoring check done Camryn De La Rosa [facility] Start: 08-14-2023 ambulatory Scott Mayur. Spasic Fa cility:[facility] [place] Start: 07-16-2023 Chart Update Camryn marcial Work Phone: [facility] 250 DO Work Phone: Start: 07-15-2023 ambulatory Ms. Camryn De La Rosa Facility: Start: 07-15-2023 Office outpatient vi sit 25 minutes Camryn De La Rosa Work Phone: [facility] [place] 250 DO Work Phone: Start: 07-14-2023 End: 07-14-2023 ambulatory CATERER HELPER-C Camryn De La Rosa Work Phone: [facility] Work Phone: Start: 07-14-2023 End: 07-14-2023 Patient encounter procedure CATERER HELPER-C Camryn De La Rosa Work Phone: [facility] [place] Work Phone: Start: 04-01-2023 End: 04-01-[address] DANNY SANTILLAN . Facility: Start: 03-05-2023 End: 03-06-[address] DANNY SANTILLAN . Facility:[facility] Start: 02-12-2023 Rx Renewal Cristin Roblero Work Phone: -[facility] 250 DO Work Phone: Start: 01-28-2023 End: 01-28-2023 Patient encounter procedure Cory CARRIONMiguel [facility] [place] Start: 01-21-2023 End: 01-21-2023 Patient encounter procedure Cory JOSHUA [facility] Start: 2023 End: 2023 Patient encounter procedure Malinda Rubio [facility] Start: 12-17-2022 End: 12-17-2022 Patient encounter procedure Malinda Rubio [facility] Start: 12-06-2022 End: 12-07-[address] DANNY SANTILLAN . Facility:[facility] Start: 09-24-2022 End: 09-24-2022 Patient encounter procedure Malinda Rubio [facility] Start: 09-17-2022 End: 09-17-2022 Off-Site Malinda Rubio [facility] Start: 09-12-2022 End: 09-12-2022 Patient encounter procedure Malinda Rubio [facility] Start: 09-07-2022 End: 09-07-2022 Patient encounter procedure Malinda Rubio [facility] Start: 07-12-2022 Chart Update Cristin Roblero Work Phone: [facility] 600 DO Work Phone: Start: 07-12-2022 End: 07-12-2022 Patient encounter procedure Jay Jay Mariscal [facility] Start: 04-15-2022 End: 04-15-[address] DANNY SANTILLAN . Facility: Start: 10-11-2021 Office outpatient vi sit 25 minutes Cristin Roblero Work Phone: [facility] [place] 250[address] [place] Work Phone: Start: 10-11-2021 Patient encounter procedure Cristin Roblero Work Phone: [facility] [place] 250 DO Work Phone: Start: 04-09-2021 End: 04-09-2021 Subsequent hospital visit by physician Xr [facility] Comment on above: Bilateral hand pain [M79.641, M79.642] Start: 09-08-2017 Ambulatory CRIS VALENZUELA Facility:1 637 Procedures Date Procedure Procedure Detail Performing Clinician Start: 10-29-2024 ALL CBC WITH AUTO DIFF Ryley Isis DO Work Phone: Start: 09-10-2024 ALL BASIC METABOLIC PANEL Ryley Isis DO Work Phone: Start: 11-04-2023 MRI of bilateral garrison asts with contrast CATERER HELPERJhon De La Rosa Work Phone: Start: 04-09-2021 [...] Margarito nn Missler Ligation of fallopian tube Katherine Roblero Work Phone: Ligation of fallopian tube H kaia Mariscal Lumpectomy of breast Cristin Roblero Work Phone: Comment on above: left; Tonsillectomy Cristin Roblero Work Phone: Tonsillectomy Jay Jay Mariscal Ultrasonography guid ed biopsy of right breast Cory JOSHUA Plan of Treatment Date Care Activity Detail Author Start: 10-11-2025 End: 10-11-2025 Patient encounter procedure 10/11/2025 10:30 AM EST Office Visit [facility] [address] [facility] [address] [place] [address] Jay Jay Mariscal MD [address] [facility] [address] [place] [address] [facility] Start: 05-23-2025 End: 05-23-2025 Patient encounter procedure 05/23/2025 1:00 PM EDT Office Visit [facility] [address] [place] [address] Ryley Marinelli, DO [address] [place] [address] [facility] Start: 11-17-2024 End: 11-17-2024 Patient encounter procedure 11/17/2024 9:30 AM EST Office Visit [facility] [address] [place] [id number] Lawrence Roque DO [address] [place] [address] [facility] Start: 09-17-2024 End: 09-17-2024 Patient encounter procedure 09/17/2024 9:30 AM EDT Procedure Visit [facility] Ryley Marinelli, DO [address] [facility] [place] [address] [place] [address] [facility] Start: 08-01-2024 COVID-19 Vaccine ( season) COVID-19 Vaccine ( season) [facility] Start: 08-01-2024 Influenza vaccination Influenza Vaccine (#1) [facility] Start: 07-14-2024 FUV, Provider: Jay Jay Mariscal, Status: Pen, Time: 11:00 AM FUV, Provider: Jay Jay Mariscal, Status: Pen, Time: 11:00 AM [place] [address] DO Work Phone: Start: 08-01-2023 Influenza vaccination INFLUENZA (#1) [facility] Start: 07-29-2023 NURSEVST, Provider: JANETT ALLAN KITCHEN FOOD SERVER 1,[id number], Status: Pen, Time: 11:00 AM NURSEVST, Provider: JANETT ALLAN KITCHEN FOOD SERVER 1,[id number], Status: Pen, Time: 11:00 AM [facility] 250 DO Work Phone: Start: 07-15-2023 FUV, Provider: Jay Jay Mariscal, Status: Pen, Time: 10:30 AM FUV, Provider: Jay Jay Mariscal, Status: Pen, Time: 10:[address] [facility] 250 DO Work Phone: Start: 12-01-2022 ADVANCE DIRECTIVE DISCUSSION ADVANCE DIRECTIVE DISCUSSION [facility] Start: 12-01-2022 DEPRESSION ASSESSMENT DEPRESSION ASSESSMENT [facility] Start: 07-16-2022 FUV, Provider: Jay Jay Mariscal, Status: Pen, Time: 11:00 AM FUV, Provider: Jay Jay Mariscal, Status: Pen, Time: 11:00 AM [facility] Work Phone: Start: 05-22-2020 DTaP/Tdap/Td Vaccines (2 - Td or Tdap) DTaP/Tdap/Td Vaccines (2 - Td or Tdap) [facility] Start: [address] BONE D[address] [facility] Start: 2015 PNEUMOCOCCAL: 65+ (1 - PCV) PNEUMOCOCCAL: 65+ (1 - PCV) [facility] Start: 2010 RSV High Risk: (Elderly (60+) or Population) (1 - Risk 60-74 years 1-dose series) RSV High Risk: (Elderly (60+) or Population) (1 - Risk 60-74 years 1-dose series) [facility] Start: 2000 SHINGRIX VACCINE (1 of 2) SHINGRIX VACCINE (1 of 2) [facility] Start: 2000 Zoster Vaccines (1 of 2) Zoster Vaccines (1 of 2) [facility] Start: 1995 COLOGUARD (FIT-DNA) COLOGUARD (FIT-DNA) [facility] Start: [address] [facility] Start: 1995 COLORECTAL CANCER SCREENING COLORECTAL CANCER SCREENING [facility] Start: [address] [facility] Start: 1995 DIABETES SCREEN DIABETES SCREEN [facility] Start: 1995 FECAL OCCULT BLOOD FECAL OCCULT BLOOD [facility] Start: 1995 LIPID SCREEN LIPID SCREEN [facility] Start: [address] [facility] Start: [address] [facility] Start: 1990 Screening for malignant neoplasm of breast Mammogram [facility] Start: 1969 Urine microalbumin profile DTAP,TDAP,TD (1 - Tdap) [facility] Start: 1968 HEPATITIS C SCREENING HEPATITIS C SCREENING [facility] Start: 1968 Hepatitis C screening Hepatitis C Screening [facility] Start: 1950 COVID-19 VACCINE (#1) COVID-19 VACCINE (#1) [facility] Start: 1950 Lipid panel Lipid Panel [facility] Start: 1950 Medicare Annual Wellness Visit Medicare Annual Wellness Visit (AWV) [facility] Start: 1950 Screening for malignant neoplasm of colon [facility] Start: 1950 Screening for osteoporosis Bone Density Scan [facility] Start: 1950 Thyroid stimulating hormone measurement TSH Level [facility] Immunizations Immunization Date Immunization Notes Care Provider Fa cility 01-31-2020 pneumococcal conjuga te vaccine, 13 valent Cristin Roblero Work Phone: [facility] 250 DO Work Phone: 09-25-2019 pneumococcal conjuga te vaccine, 13 valent Jay Jay Prolebrity [facility] 09-20-2019 pneumococcal conjuga te vaccine, 13 valent Cristin Roblero Work Phone: [facility] 600 DO Work Phone: 12-01-2018 pneumococcal polysaccharide vaccine, 23 valent Cristin Roblero Work Phone: [facility] 08-31-2015 influenza virus vaccine, unspecified formulation Cristin Roblero Work Phone: [facility] 600 DO Work Phone: 04-02-2013 influenza virus vaccine, unspecified formulation Goyal Prolebrity [facility] 05-22-2010 tetanus toxoid, redu latrell diphtheria toxoid, and acellular pertussis vaccine, adsorbed Goyal Mariscal [facility] NEGATED: Highlighted row has not occurred!09-26-2023 influenza virus vaccine, unspecified formulation Vilma Esvin [facility] NEGATED: Highlighted row has not occurred!08-19-2023 influenza virus vaccine, unspecified formulation Camryn De La Rosa [facility] NEGATED: Highlighted row has not occurred!09-12-2022 influenza virus vaccine, unspecified formulation Malinda Rubio [facility] NEGATED: Highlighted row has not occurred!02-07-2020 influenza virus vaccine, live, attenuated, for intranasal use Jay Jay Mariscal [facility] Payers Date Payer Category Payer Self-pay [id number] 2022 Medicare (Managed Care) 1.2. [id number] 2022 Unknown 2021 Unknown [id number] 2017 Private Health Insurance AETNA A ETNA MEDICARE SUPPLEMENT [id number] 2017-Present [phone] [address] [address] [place] [address] Indemnity [id number] 2014 Medicare MEDICARE MEDICAR E A AND B [id number] 2014-Present [phone] [address] [address] [place] [address] Medicare [id number] 1959 Unknown [id number] 1950 Unknown [id number] 2.16.840.1.232504.3.579. 2.593 1950 Unknown [id number] 2.16.840.1.323039.3.579. 2.593 1950 Unknown [id number] 2.16.840.1.291483.3.579. 2.593 1950 Unknown [id number] 2.16.840.1.535301.3.579. 2.593 1950 Unknown [id number] 2.16.840.1.940569.3.579. 2.356 1950 Unknown [id number] 2.16.840.1.048229.3.579. 2.727 1950 Unknown [id number] 2.16.840.1.006093.3.579. 2727 1950 Unknown [id number] 2.16.840.1.532917.3.579. 2727 1950 Unknown [id number] 2.16.840.1.548940.3.579. 272 1950 Unknown [id number] 2.16.840.1.480107.3.579. 2727 1950 Unknown [id number] 2.16.840.1.038704.3.579. 2727 1950 Unknown [id number] 2.16.840.1.994997.3.579. 2727 1950 Unknown [id number] 2.16.840.1.111071.3.579. 272 1950 Unknown [id number] 2.16.840.1.491557.3.579. 2.727 1950 Unknown [id number] 2.16.840.1.877397.3.579. 272 1950 Unknown [id number] 2.16.840.1.230527.3.579. 2727 1950 Unknown [id number] 2.16.840.1.989288.3.579. 2727 1950 Unknown [id number] 2.16.840.1.093117.3.579. 2. 1950 Unknown [id number] 2.16.840.1.760288.3.579. 2. 1950 Unknown [id number] 2.16.840.1.699475.3.579. 2. 1950 Unknown [id number] 2.16.840.1.021414.3.579. 2. 1950 Unknown [id number] 2.16.840.1.679633.3.579. 2. 1950 Unknown [id number] 2.16.840.1.759618.3.579. 2. 1950 Unknown [id number] 2.16.840.1.347225.3.579. 2. 1950 Unknown [id number] 2.16.840.1.896208.3.579. 2. 1950 Unknown [id number] 2.16.840.1.821736.3.579. 2. 1950 Unknown [id number] 2.16.840.1.588450.3.579. 2.1258 1950 Unknown [id number] 2.16.840.1.365671.3.579. 2.1258 1950 Unknown [id number] 2.16.840.1.479220.3.579. 2.1258 1950 Unknown [id number] 2.16.840.1.837993.3.579. 2.1258 1950 Unknown [id number] 2.16.840.1.030793.3.579. 2.1258 1950 Unknown [id number] 2.16.840.1.751732.3.579. 2.1258 1950 Unknown [id number] 2.16.840.1.965702.3.579. 2.1244 1950 Unknown [id number] 2.16.840.1.899097.3.579. 2.727 1950 Unknown [id number] 2.16.840.1.597515.3.579. 2.727 1950 Unknown [id number] 2.16.840.1.412483.3.579. 2.727 1950 Unknown [id number] 2.16.840.1.610100.3.579. 2.727 1950 Unknown [id number] 2.16.840.1.420358.3.579. 2.727 1950 Unknown [id number] 2.16.840.1.272486.3.579. 2.727 Medicare Medicare [id number] Private Health Insurance [employer] [id number] Unknown [employer] [id number] Unknown [id number] 2.16.840.1.332017.3.579. 2.531 Social History Date Type Detail Facility Start: 04-09-2021 End: 06-10-2023 Caffeine use Caffeine use [place] [address] DO Work Phone: Comment on above: 2 cups of coffee abdirahman ly; occasional; 1 cup of coffee beto y; Start: 01-25-2022 End: 06-05-2023 Tobacco smoking status Never smoked tobacco (finding) [facility] Tobacco smoking status Never [facility] Start: 04-09-2021 End: 06-10-2023 Sex Assigned At Female [facility] Start: 04-09-2021 End: 10-11-2024 Tobacco use and exposure Smokeless tobacco non-user [facility] Start: 1950 Sex Assigned At Not on file C [facility] Start: 03-10-2021 End: 10-11-2024 Exposure to SARS-CoV-2 (event) Not sure [facility] Start: 1950 Sex Assigned At Female F [facility] Start: 08-25-2024 Alcoholic beverage intake Current drinker of alcohol (finding) [facility] Start: 06-05-2023 Alcohol Comment Alcohol: 1 or 2 drinks, 2 to 4 times a month; Caffeine: 1-2 cups/day [facility] Start: 10-11-2024 Alcoholic beverage intake Ex-drinker (finding) [facility] Work Phone: Functional Status Date Assessment Result Facility 10-15-2024 Functional Status N/A [facility] 07-09-2024 Functional Status N/A [facility] 05-26-2024 Functional Status N/A [facility] 05-12-2024 Functional Status N/A [facility] 05-06-2024 Functional Status N/A [facility] 04-14-2024 Functional Status N/A [facility] 02-06-2024 Functional Status N/A [facility] 01-15-2024 Functional Status N/A [facility] 10-30-2023 Functional Status N/A [facility] 09-26-2023 Functional Status N/A [facility] 08-19-2023 Functional Status N/A [facility] 12-17-2022 Functional Status N/A [facility] 09-24-2022 Functional Status N/A [facility] 09-17-2022 Functional Status Telehealth Patient Pablo [facility] 09-12-2022 Functional Status N/A [facility] Clinical Notes 04-09-2021 to 10-15-2024 [...] condition. Follow these instructions at home: Take roxd-psy-tuxbtnh and prescription medicines only as told by [...] and water are not available, use hand supervisor doping. Avoid contact with people who have cold [...] it is easier to cough up. Take qnse-ync-mcycrfz and prescription medicines only as told by [...] provider. Document Revised: 02/27/2023 Document Reviewed: 03/20/2022 Looking for Gamers Patient Education 2023 [employer]. 10/15/2024 11:08:26 Postnasal Drip Postnasal Drip Postnasal [...] the nasal passages moist. General instructions Take sdql-czb-ffrftzt and prescription medicines only as told by [...] provider. Document Revised: 10/17/2022 Document Reviewed: 10/17/2022 Looking for Gamers Patient Education 2023 [employer]. 10/15/2024 11:08:23 Aspiration Pneumonia, Adult Aspiration Pneumonia, [...] Follow these instructions at home: Medicines Take ppvn-crc-irtywoe and prescription medicines as told by your [...] provider. Document Revised: 04/30/2023 Document Reviewed: 04/30/2023 Looking for Gamers Patient Education 2023 [employer]. Follow Up Care 10/12/2024 16:59:27 With:Esvin AVILES, ROSA MARIA Hilton, MED Address: Rosalina Montoya, [facility] A [address] [address]- When:Within 2 Week(s) Comments:lung follow up [facility] 10-15-2024 Note Patient Education ENT [...] nasal passages moist. General instructions ??? Take kcay-ieo-qfiefzy and prescription medicines only as told by [...] provider. Document Revised: 10/17/2022 Document Reviewed: 10/17/2022 Looking for Gamers Patient Education ? 2023 [employer]. Neurology Aspiration Pneumonia, Adult Aspiration pneumonia is [...] also be silent. (more content not included)... [facility] History of Present illness Narrative Cj Rosen is a 74 y.o. female Chief Complaint Annual Exam HPI Patient is in the office for follow-up for the problems noted below along with a need for cardiac clearance prior to D&C surgery scheduled in few weeks at [facility]. Her blood pressure is under excellent control. [...] preparation for the upcoming surgery scheduled at [place] for D&C. She is acceptable risk and the surgery could be carried out without any further cardiac testing 2-essential hypertension under control with no changes needed 3-hypothyroidism on replacement therapy. 4-hyperlipidemia, refuses to take medications 5-mild and insignificant mitral regurgitation by echocardiogram 2018 Review of Systems All other systems reviewed [...] once daily., Disp: , Rfl: thyroid, pork, ([place] Thyroid) 30 mg tablet, Take 1 tablet [...] Scribe Attestation By signing my name below, Pennie Luis RN , Scribe attest that this documentation [...] discussion and plan. documented in this encounter [facility] Work Phone: 10-11-2024 Instructions Pennie Lan [...] with Dr Marinelli documented in this encounter [facility] Work Phone: 05-26-2024 Hospital Discharge instructions [...] canola oil, flaxseeds, walnuts, almonds, and seeds. ?[place]-3 fats. These are found in foods such [...] oatmeal, bulgur, barley, quinoa, or brown rice. [place] or whole wheat flour tortillas. Meats and [...] or reduced-fat mayonnaise and salad dressings. Avocado. [place], canola, sesame, or safflower oils. The items [...] meat. Dairy Whole or 2% milk, cream, ruos-zjt-sptk, and cream cheese. Whole milk cheeses. Whole-fat or sweetened yogurt. Full-fat cheeses. Nondairy creamers and whipped toppings. Processed cheese, cheese spreads, and cheese curds. Fats and oils Butter, stick margarine, lard, shortening, ghee, or torres fat. Coconut, palm kernel, and palm oils. Beverages Alcohol. Sugar-sweetened drinks such as sodas, lemonade, and fruit drinks. Sweets and desserts [place] syrup, sugars, honey, and molasses. Candy. Jam [...] provider. Document Revised: 03/29/2022 Document Reviewed: 03/29/2022 Looking for Gamers Patient Education 2022 [employer]. 05/26/2024 15:45:13 Hypertension, Adult, Opyp-uv-Tigr Hypertension, Adult Hypertension is another name for [...] doctor. Keep all follow-up visits. Medicines Take rupn-eyb-qppykxs and prescription medicines only as told by [...] provider. Document Revised: 09/05/2022 Document Reviewed: 09/05/2022 Looking for Gamers Patient Education 2022 [employer]. 05/26/2024 15:45:09 DASH Eating Plan DASH Eating [...] Dairy Whole or 2% milk, cream, and sklw-bvz-fxzt. Whole or full-fat cream cheese. Whole-fat or [...] more information National Heart, Lung, and Blood [place]: www.nhlbi.nih.gov [place] Heart Association: www.heart.org Academy of Nutrition and [...] provider. Document Revised: 10/20/2020 Document Reviewed: 10/20/2020 Looking for Gamers Patient Education 2022 [employer]. 05/26/2024 15:45:06 Major Depressive Disorder, Adult Major [...] things, which may include: Your personality traits. [place] or conditioned behaviors or thoughts or feelings [...] your health care provider. General instructions Take pzal-sde-dmdqhox and prescription medicines only as told by your health care provider. Eat a healthy diet and get plenty of sleep. Consider joining a support group. Your health care provider may be able to recommend one. Keep all follow-up visits as told by your health care provider. This is important. Where to find more information National [place] on Mental Illness: www.julia.org [place]. National [place] of Mental Health: www.nimh.nih.gov Contact a health [...] department or: Call your local emergency services (243 in the [place] Call a suicide crisis helpline, such as the National Suicide Prevention Lifeline at or 773 in the [place]. This is open 24 hours a day in the [place] Text the Crisis Text Line at 899648 (in the [place] Summary Major depressive disorder [...] provider. Document Revised: 06/12/2022 Document Reviewed: 10/28/2020 Looking for Gamers Patient Education 2022 [employer]. [facility] 05-26-2024 Hospital Discharge instructions [...] Dietary supplements. Direct exposure to natural sunlight. formula, for infants. Knowing how much vitamin [...] such as almond, soy, or oat milks. ?[place] juice. ?Margarine. When choosing foods, check the [...] including vitamins, herbs, eye drops, creams, and olwg-qxu-jlbsnyt medicines. Take xrvx-qna-btzuqzr and prescription medicines only as told by [...] provider. Document Revised: 08/23/2022 Document Reviewed: 08/23/2022 Looking for Gamers Patient Education 2022 [employer]. 05/26/2024 13:32:06 Dyslipidemia Dyslipidemia Dyslipidemia is an [...] quitting, ask your health care provider. Take msvq-fso-jwjtwho and prescription medicines only as told by [...] provider. Document Revised: 01/21/2022 Document Reviewed: 01/21/2022 Looking for Gamers Patient Education 2022 [employer]. 05/26/2024 13:32:04 Hypertension, Adult Hypertension, Adult High [...] follow-up visits. This is important. Medicines Take akhe-lee-oyzbpxs and prescription medicines only as told by [...] provider. Document Revised: 09/24/2022 Document Reviewed: 09/24/2022 Looking for Gamers Patient Education 2022 [employer]. 05/26/2024 13:32:03 Heart Disease Prevention Heart Disease [...] of hard liquor (44 mL). Medicines Take kjyh-ciz-oaywcnx and prescription medicines only as told by [...] Centers for Disease Control and Prevention: www.cdc.gov/heartdisease [place] Heart Association: www.heart.org Summary Heart disease is [...] provider. Document Revised: 07/17/2022 Document Reviewed: 07/17/2022 Looking for Gamers Patient Education 2022 [employer]. 05/26/2024 13:31:57 Hypothyroidism Hypothyroidism Hypothyroidism is when [...] away. Follow these instructions at home: Take vdty-mhp-ahnuzyp and prescription medicines only as told by [...] provider. Document Revised: 11/19/2022 Document Reviewed: 11/19/2022 Looking for Gamers Patient Education 2022 [employer]. 05/26/2024 13:18:44 Dyslipidemia Dyslipidemia Dyslipidemia is an [...] quitting, ask your health care provider. Take pmnx-lxh-lvmzwsf and prescription medicines only as told by [...] provider. Document Revised: 01/21/2022 Document Reviewed: 01/21/2022 Looking for Gamers Patient Education 2022 [employer]. 05/26/2024 13:18:40 Heart Disease Prevention Heart Disease [...] of hard liquor (44 mL). Medicines Take ozta-enb-gvtshsw and prescription medicines only as told by [...] Centers for Disease Control and Prevention: www.cdc.gov/heartdisease [place] Heart Association: www.heart.org Summary Heart disease is [...] provider. Document Revised: 07/17/2022 Document Reviewed: 07/17/2022 Looking for Gamers Patient Education 2022 [employer]. 05/26/2024 13:18:39 DASH Eating Plan DASH Eating [...] Dairy Whole or 2% milk, cream, and mjhu-knp-gtju. Whole or full-fat cream cheese. Whole-fat or [...] more information National Heart, Lung, and Blood [place]: www.nhlbi.nih.gov [place] Heart Association: www.heart.org Academy of Nutrition and [...] provider. Document Revised: 10/20/2020 Document Reviewed: 10/20/2020 [employer] Patient Education 2022 [employer]. 05/26/2024 13:18:36 Genital Yeast Infection, Male Genital [...] instructions at home: Medicines Take or apply kkvn-bxo-gmlrkeq and prescription medicines only as told by [...] provider. Document Revised: 11/13/2022 Document Reviewed: 11/13/2022 [employer] Patient Education 2022 [employer]. 05/26/2024 13:18:33 Hypothyroidism Hypothyroidism Hypothyroidism is when [...] away. Follow these instructions at home: Take sxmr-yfr-iclxwng and prescription medicines only as told by [...] provider. Document Revised: 11/19/2022 Document Reviewed: 11/19/2022 [employer] Patient Education 2022 [employer]. Follow Up Care 10/30/2023 10:46:14 With:Vilma John FAM, [facility] Address: Rosalina Montoya, [address] [address]- Business (1) When:Within 3 Month(s) Comments:3 mo f/u for htn, hypothyroidism, depression [facility] 05-12-2024 Hospital Discharge instructions [...] condition. Follow these instructions at home: Take czvs-hbb-xblkysy and prescription medicines only as told by [...] and water are not available, use hand supervisor doping. Avoid contact with people who have cold [...] it is easier to cough up. Take nnmt-wkn-ipodhgb and prescription medicines only as told by [...] provider. Document Revised: 02/27/2023 Document Reviewed: 03/20/2022 [employer] Patient Education 2022 [employer]. 05/12/2024 15:56:49 Otitis Media With Effusion, Adult [...] few weeks. Home care treatment may include: Ftfv-xkv-cwqntel pain relievers. A warm, moist cloth placed over the ear. Severe cases may require a procedure to insert tubes in the ears (tympanostomy tubes) to drain the fluid. Follow these instructions at home: Take gkmz-yys-eqifcza and prescription medicines only as told by [...] provider. Document Revised: 03/14/2022 Document Reviewed: 03/14/2022 [employer] Patient Education 2022 [employer]. 05/12/2024 15:56:46 Varicose Veins Varicose Veins Varicose [...] Follow these instructions at home: Medicines Take sokh-reu-goztrmm and prescription medicines only as told by [...] provider. Document Revised: 05/01/2022 Document Reviewed: 05/01/2022 [employer] Patient Education 2022 [employer]. 05/12/2024 15:56:37 Fatigue Fatigue If you have [...] Follow these instructions at home: Medicines Take jdbn-uyp-inbjusb and prescription medicines only as told by [...] the National Suicide Prevention Lifeline at or 133. This is open 24 hours a day. Text the Crisis Text Line at 163067. Summary If you have fatigue, you feel [...] provider. Document Revised: 09/09/2022 Document Reviewed: 09/09/2022 [employer] Patient Education 2022 [employer]. 05/12/2024 15:56:35 Community-Acquired Pneumonia, Adult Community-Acquired Pneumonia, [...] Follow these instructions at home: Medicines Take ewnh-gsv-bpokkyj and prescription medicines only as told by [...] and water are not available, use hand supervisor doping. Contact a health care provider if: You [...] provider. Document Revised: 01/15/2023 Document Reviewed: 01/15/2023 [employer] Patient Education 2022 [employer]. Follow Up Care 05/05/2024 10:40:01 With:Vilma John [facility], [facility] Address: [facility] [address]oya, [address] [address]- When:Within 2 Week(s) Comments:ear check , labs reviewed [facility] 04-14-2024 Hospital Discharge instructions [...] medicines to help relieve symptoms, such as: Zfgr-njk-twmrxrp cold medicines. Cough suppressants. Coughing is a [...] and other clear broths. General instructions Take cusr-ecv-fxqtdql and prescription medicines only as told by [...] and water are not available, use hand supervisor doping. Avoid touching your mouth, face, eyes, or [...] provider. Document Revised: 06/19/2022 Document Reviewed: 06/19/2022 [employer] Patient Education 2022 [employer]. 04/14/2024 10:30:41 Acute Bronchitis, Adult Acute Bronchitis, [...] condition. Follow these instructions at home: Take rkqq-psd-eoskkrt and prescription medicines only as told by [...] and water are not available, use hand supervisor doping. Avoid contact with people who have cold [...] it is easier to cough up. Take rsbd-ifi-jzbegjj and prescription medicines only as told by [...] provider. Document Revised: 02/27/2023 Document Reviewed: 03/20/2022 [employer] Patient Education 2022 [employer]. 04/14/2024 10:30:39 Cancer Screening for Women Cancer [...] if anything looks unusual. Women with a hvbqrv-umlo-unkrfm risk for skin cancer may want to see a hair specialist (vending machine filler) for an annual body check. What are the benefits of screening? Cancer screening is done to look for cancer in the very early stages, before it spreads and becomes harder to treat and before you would start to notice symptoms. Finding cancer early improves the chances of successful treatment. It may save your life. Where to find more information [place] Cancer Society: www.cancer.org Centers for Disease Control and Prevention: www.cdc.gov National Cancer [place]: www.cancer.gov U.S. Department of Health and Human [...] provider. Document Revised: 04/15/2022 Document Reviewed: 10/13/2020 [employer] Patient Education 2022 [employer]. Follow Up Care 04/12/2024 08:09:12 With:Vilma John FAM, [facility] Address: [address], [facility] [place] [id number]- When:Within 1 Week(s) [facility] 02-06-2024 Hospital Discharge instructions [...] to strengthen the arm. General instructions Take jbev-jkc-oyehwkk and prescription medicines only as told by [...] provider. Document Revised: 08/02/2022 Document Reviewed: 08/02/2022 [employer] Patient Education 2022 [employer]. 02/06/2024 11:57:02 Degenerative Disk Disease Degenerative Disk [...] Follow these instructions at home: Medicines Take barz-him-jaseldb and prescription medicines only as told by your health care provider. Ask your health care provider if the medicine prescribed to you: ?Requires you to avoid driving or using machinery. ?Can cause constipation. You may need to take these actions to prevent or treat constipation: ?Drink enough fluid to keep your urine pale yellow. ?Take ffio-qtc-kelmpyt or prescription medicines. ?Eat foods that are [...] lower back are most often affected. Take taox-piy-nimnlsp and prescription medicines only as told by your health care provider. This information is not intended to replace advice given to you by your health care provider. Make sure you discuss any questions you have with your health care provider. Document Revised: 03/01/2021 Document Reviewed: 03/01/2021 [employer] Patient Education 2022 [employer]. 02/06/2024 11:56:38 Major Depressive Disorder, Adult Major [...] things, which may include: Your personality traits. [place] or conditioned behaviors or thoughts or feelings [...] your health care provider. General instructions Take msrt-tmo-yemkert and prescription medicines only as told by your health care provider. Eat a healthy diet and get plenty of sleep. Consider joining a support group. Your health care provider may be able to recommend one. Keep all follow-up visits as told by your health care provider. This is important. Where to find more information National [place] on Mental Illness: www.julia.org [place]. National [place] of Mental Health: www.nimh.nih.gov Contact a health [...] department or: Call your local emergency services (248 in the [place].S[place] Call a suicide crisis helpline, such as the National Suicide Prevention Lifeline at or 549 in the [place].S. This is open 24 hours a day in the [place]. Text the Crisis Text Line at 561469 (in the [place].S.). Summary Major depressive disorder [...] provider. Document Revised: 06/12/2022 Document Reviewed: 10/28/2020 [employer] Patient Education 2022 [employer]. 02/06/2024 11:56:36 Hypothyroidism Hypothyroidism Hypothyroidism is when [...] away. Follow these instructions at home: Take otth-lrk-ertucqa and prescription medicines only as told by [...] provider. Document Revised: 11/19/2022 Document Reviewed: 11/19/2022 Elsevier Patient Education 2022 [employer]. [facility] 01-15-2024 Hospital Discharge instructions [...] things, which may include: Your personality traits. [place] or conditioned behaviors or thoughts or feelings [...] your health care provider. General instructions Take hmvy-qcm-htmxopv and prescription medicines only as told by your health care provider. Eat a healthy diet and get plenty of sleep. Consider joining a support group. Your health care provider may be able to recommend one. Keep all follow-up visits as told by your health care provider. This is important. Where to find more information National [place] on Mental Illness: www.julia.org U.S. National [place] of Mental Health: www.nimh.nih.gov Contact a health [...] department or: Call your local emergency services (267 in the [place].S[place] Call a suicide crisis helpline, such as the National Suicide Prevention Lifeline at or 015 in the U.S. This is open 24 hours a day in the U.S. Text the Crisis Text Line at 575298 (in the [place].S.). Summary Major depressive disorder [...] provider. Document Revised: 06/12/2022 Document Reviewed: 10/28/2020 Elsevier Patient Education 2022 [employer]. 01/15/2024 18:54:21 Cough, Adult Cough, Adult Coughing [...] Follow these instructions at home: Medicines Take neqv-ahb-gluuenl and prescription medicines only as told by [...] of a condition that needs treatment. Take jlby-epv-dwkdgra and prescription medicines only as told by [...] provider. Document Revised: 12/06/2019 Document Reviewed: 12/06/2019 [employer] Patient Education 2022 [employer]. 01/15/2024 18:54:18 Vitamin B12 Deficiency Vitamin B12 [...] added to them (are fortified), such as bwejz-vl-xfi breakfast cereals. Check the label on the [...] provider. Document Revised: 07/12/2022 Document Reviewed: 07/12/2022 [employer] Patient Education 2022 [employer] 01/15/2024 18:54:15 Paresthesia Paresthesia Paresthesia is [...] hard liquor (44 mL). General instructions Take jvex-doc-xwytnrb and prescription medicines only as told by [...] provider. Document Revised: 07/29/2022 Document Reviewed: 07/29/2022 [employer] Patient Education 2022 [employer]. 01/15/2024 18:54:13 Cervical Radiculopathy Cervical Radiculopathy Cervical [...] your health care provider. Managing pain Take amhr-zkv-sfbcgjd and prescription medicines only as told by [...] provider. Document Revised: 05/23/2022 Document Reviewed: 05/23/2022 [employer] Patient Education 2022 [employer]. 01/15/2024 18:54:09 Migraine Headache Migraine Headache A [...] Follow these instructions at home: Medicines Take firf-iot-zlskdlu and prescription medicines only as told by your health care provider. Ask your health care provider if the medicine prescribed to you: ?Requires you to avoid driving or using heavy machinery. ?Can cause constipation. You may need to take these actions to prevent or treat constipation: ?Drink enough fluid to keep your urine pale yellow. ?Take lbcm-guh-udqrmct or prescription medicines. ?Eat foods that are [...] provider. Document Revised: 03/10/2020 Document Reviewed: 12/30/2019 [employer] Patient Education 2022 [employer]. Follow Up Care 01/12/2024 07:56:41 With:Esvin AVILES, Vilma Rivera [facility], [facility] Address[facility] [place] [id number]- When:Within 1 Month(s) Comments:f/u labs, results from MRI, neurochanges and migraines, persistent cough [facility] 10-30-2023 Hospital Discharge instructions [...] told by your health care provider. Take gtqo-nex-hsetmbz and prescription medicines only as told by [...] provider. Document Revised: 05/03/2021 Document Reviewed: 05/03/2021 [employer] Patient Education 2022 [employer]. 10/30/2023 11:25:43 Preventing Vitamin D Deficiency Preventing [...] such as almond, soy, or oat milks. ?[place] juice. ?Margarine. When choosing foods, check the [...] including vitamins, herbs, eye drops, creams, and twya-bdm-sfjcsjh medicines. Take vqdg-sxi-jvfwhcv and prescription medicines only as told by [...] provider. Document Revised: 08/23/2022 Document Reviewed: 08/23/2022 [employer] Patient Education 2022 [employer]. 10/30/2023 11:25:38 DASH Eating Plan DASH Eating [...] Dairy Whole or 2% milk, cream, and sunt-rls-pzkx. Whole or full-fat cream cheese. Whole-fat or [...] more information National Heart, Lung, and Blood [place]: www.nhlbi.nih.gov [place] Heart Association: www.heart.org Academy of Nutrition and [...] provider. Document Revised: 10/20/2020 Document Reviewed: 10/20/2020 [employer] Patient Education 2022 [employer]. 10/30/2023 11:25:37 Major Depressive Disorder, Adult Major [...] things, which may include: Your personality traits. [place] or conditioned behaviors or thoughts or feelings [...] your health care provider. General instructions Take sjjv-rgv-lswptnb and prescription medicines only as told by your health care provider. Eat a healthy diet and get plenty of sleep. Consider joining a support group. Your health care provider may be able to recommend one. Keep all follow-up visits as told by your health care provider. This is important. Where to find more information National [place] on Mental Illness: www.julia.org U.S. National [place] of Mental Health: www.nimh.nih.gov Contact a health [...] department or: Call your local emergency services (909 in the [place] Call a suicide crisis helpline, such as the National Suicide Prevention Lifeline at or 356 in the U.S. This is open 24 hours a day in the [place]. Text the Crisis Text Line at 322992 (in the [place].S.). Summary Major depressive disorder [...] provider. Document Revised: 06/12/2022 Document Reviewed: 10/28/2020 [employer] Patient Education 2022 [employer] Follow Up Care 09/26/2023 10:41:21 With:Vilma John [facility], [facility] Address: Rosalina Montoya, [address] [facility] [address] [place] [address]- Business (1) When:02/04/2024 Comments:for f/u [facility] 09-26-2023 Hospital Discharge instructions [...] things, which may include: Your personality traits. [place] or conditioned behaviors or thoughts or feelings [...] your health care provider. General instructions Take pxnw-mau-eidktgp and prescription medicines only as told by your health care provider. Eat a healthy diet and get plenty of sleep. Consider joining a support group. Your health care provider may be able to recommend one. Keep all follow-up visits as told by your health care provider. This is important. Where to find more information National [place] on Mental Illness: www.julia.org U.S. National [place] of Mental Health: www.nimh.nih.gov Contact a health [...] department or: Call your local emergency services (951 in the [place] Call a suicide crisis helpline, such as the National Suicide Prevention Lifeline at or 915 in the U.S. This is open 24 hours a day in the [place]. Text the Crisis Text Line at 645210 (in the [place].S.). Summary Major depressive disorder [...] provider. Document Revised: 06/12/2022 Document Reviewed: 10/28/2020 [employer] Patient Education 2022 [employer]. 09/26/2023 10:39:53 Insomnia Insomnia Insomnia is a [...] go back to bed. General instructions Take naev-okk-tijpsee and prescription medicines only as told by [...] the National Suicide Prevention Lifeline at or 027. This is open 24 hours a day. Text the Crisis Text Line at 167195. Summary Insomnia is a sleep disorder that [...] provider. Document Revised: 10/28/2022 Document Reviewed: 10/28/2022 [employer] Patient Education 2022 [employer]. 09/26/2023 10:39:44 Heart Disease Prevention Heart Disease [...] of hard liquor (44 mL). Medicines Take mopz-eas-mfdymfx and prescription medicines only as told by [...] Centers for Disease Control and Prevention: www.cdc.gov/heartdisease [place] Heart Association: www.heart.org Summary Heart disease is [...] provider. Document Revised: 07/17/2022 Document Reviewed: 07/17/2022 [employer] Patient Education 2022 [employer]. 09/26/2023 10:39:43 Form - Blood Pressure Record [...] 08/01/2022 Document Reviewed: 08/01/2022 Elsevier Patient Education 2022 Elsevier Inc. 09/26/2023 10:39:42 DASH Eating Plan DASH [...] Dairy Whole or 2% milk, cream, and ajfr-tgr-velr. Whole or full-fat cream cheese. Whole-fat or [...] more information National Heart, Lung, and Blood [place]: www.nhlbi.nih.gov [place] Heart Association: www.heart.org Academy of Nutrition and [...] provider. Document Revised: 10/20/2020 Document Reviewed: 10/20/2020 [employer] Patient Education 2022 [employer]. 09/26/2023 10:39:41 Acute Bronchitis, Adult Acute Bronchitis, [...] condition. Follow these instructions at home: Take spiv-mwc-pqxfwzm and prescription medicines only as told by [...] and water are not available, use hand supervisor doping. Avoid contact with people who have cold [...] it is easier to cough up. Take iqhx-rkl-zckjbkt and prescription medicines only as told by [...] provider. Document Revised: 03/20/2022 Document Reviewed: 03/20/2022 [employer] Patient Education 2022 [employer]. Follow Up Care 09/19/2023 09:43:18 With:Esvin AVILES, ROSA MARIA Hilton, [facility] Address: [facility] [place] [address], [facility] [address] [address]- When:Within 1 Month(s) Comments:Discussed labs, annual wellness [facility] 06-29-2023 Hospital Discharge instructions [...] follow-up visits. This is important. Medicines Take osch-yco-znxucpf and prescription medicines only as told by [...] provider. Document Revised: 09/24/2022 Document Reviewed: 09/24/2022 [employer] Patient Education 2022 [employer]. 06/29/2023 16:49:29 Health Maintenance, Female Health Maintenance, [...] provider. Document Revised: 04/08/2022 Document Reviewed: 04/08/2022 [employer] Patient Education 2022 [employer]. 06/29/2023 16:49:28 Health Maintenance After Age 65 [...] of the medicines you are taking, including zrev-nma-lsagobc medicines. Ask your health care provider about [...] feel dizzy, tiredness (fatigue), or off-balance. Take ajgb-xbf-tcfzyod and prescription medicines only as told by [...] provider. Document Revised: 04/08/2022 Document Reviewed: 04/08/2022 [employer] Patient Education 2022 [employer]. Follow Up Care 05/20/2023 09:31:12 With:Camryn Alves Address: [address], [facility] [place] [address]- When:Within 1 Month(s) Comments:f/u CHRISTIANO, med recheck: hydroxyzine. recheck BP With:Camryn Alves Address: [facility] [address], [facility] [place] [address]- When:Within 6 Month(s) Comments:[facility] 12-17-2022 Evaluation + Plan note Future Scheduled TestsVitamin D 25 Hydroxy 12/17/22 [facility] [place] 08-02-2021 Evaluation + Plan note Future Scheduled TestsUS Breast Unilateral Rt Complete 08/02/21 [facility] 04-09-2021 Note HNO ID: [id number] Author: Cristin La, RT(R) Service: ? Author Type: Dental Instrument Maker Type: Progress Notes Filed: 04/09/2021 3:21 PM [...] RT Quintin(R) April 09, 2021 3:21 PM [facility] 04-09-2021 Note HNO ID: [id number] Author: Nico Newell MD Service: ? Author Type: Physician Type: Progress Notes Filed: 04/09/2021 5:09 PM Note Text: NEW CONSULT:RHEUMATOLOGY SERVICE SERVICE DATE: 04/09/2021 SERVICE TIME: 2:09 PM REASON FOR CONSULT: +YOSELIN REQUESTING PHYSICIAN: Cristin Roblero CNP [address] [facility] [address] PRIMARY CARE PHYSICIAN: Cristin Roblero CNP, EDUCATIONAL CONSULTANT Patient's Name: Kermit Rosen 1950 [address] [facility] [address] Accompanied by: self This consult was requested for my medical opinion regarding the rheumatologic evaluation of the patient's +YOSELIN problems, and my final recommendations will be communicated to the requesting health care provider by way of the shared medical record for internal providers or letter via the [employer] for external providers. April 09, [...] yes Dactylitis: no H/o precedent/frequent infection(s): no Enthesopathy/[place]'s/heel/planta r tenderness: no Skin thickening, psoriasis, photosensitivity, purpura: no Nail changes: stress Alpecia, patchy: yes Eye inflammation: glasses SICCA: dry eyes/lips/mouth Oral/nasal/genital ulcers: no GI problems-diarrhea/bleeding/IBD/Glu ten intolerence/Dysphagia: gerd Raynaud's phenomenon/digital ulcers: no Organ inv-Serositis: no Lung disease/ILD: no Myopathy/proximal muscle weakness: no Abnormal Urine or urethritis: no Renal/liver disease: kidney stone CUPOLA TAPPER/PNS/sz/cva/cancer disease: R breast cancer HEME-Cytopenias/LAD/Clots: no Fevers: [...] PHYSICAL EXAM:reviewed vitals (more content not included)... [facility] Evaluation + Plan note Future Appointments Appointment Date:09/12/2022 10:20:00 AM Scheduled Provider:Malinda Rubio NP Location:[facility] Appointment Type:FM Open Diagnostic Tests PendingT3 Free 09/07/22Estradiol Level 09/07/22Estrogens Total 09/07/22Testosterone F&T 09/07/22Progesterone Level 09/07/22DHEA 09/07/22DHEAS 09/07/22 [facility] Evaluation + Plan note Future Appointments Appointment Date:01/28/2023 10:20:00 AM Scheduled Provider:Cory JOSHUA MD Location:[facility] Appointment Type: Post Op 15 [facility] Evaluation + Plan note Future Appointments Appointment Date:09/22/2023 11:00:00 AM Scheduled Provider:Camryn Alves Location:[facility] Appointment Type: Open Future Scheduled TestsTSH With T4fr Reflex 08/19/23Vitamin D 25 Hydroxy 08/19/23CBC w/ Auto Diff 08/19/23Comprehensive Metabolic Panel 08/19/23Lipid Panel 08/19/23XR Chest 2 Views 08/19/23 [facility] Evaluation + Plan note Future Appointments Appointment Date:10/29/2023 10:00:00 AM Scheduled Provider:Vilma John Location:[facility] Appointment Type:FM Open Future Scheduled TestsDHEA 09/26/23Estrogens Total 09/26/23TSH With T4fr Reflex 08/19/23Vitamin D 25 Hydroxy 08/19/23CBC w/ Auto Diff 08/19/23CBC w/ Auto Diff 09/26/23Comprehensive Metabolic Panel 08/19/23Comprehensive Metabolic Panel 09/26/23Lipid Panel 08/19/23Lipid Panel 09/26/23Progesterone Level 09/26/23Testosterone Level Total 09/26/23 [facility] Evaluation + Plan note Future Appointments Appointment Date:10/29/2023 10:00:00 AM Scheduled Provider:Vilma John Location:[facility] Appointment Type: Open Diagnostic Tests PendingProgesterone Level 10/18/23Estrogens Total 10/18/23Testosterone Level Total 10/18/23DHEA 10/18/23 Future Scheduled TestsTSH With T4fr Reflex 08/19/23Vitamin D 25 Hydroxy 08/19/23CBC w/ Auto Diff 08/19/23Comprehensive Metabolic Panel 08/19/23Lipid Panel 08/19/23 [facility] Evaluation + Plan note Future Appointments Appointment Date:05/26/2024 11:20:00 AM Scheduled Provider:Vilma John Location:[facility] Appointment Type:FM Open Appointment Date:05/26/2024 01:00:00 PM Scheduled Provider: Location:[facility] Appointment Type: Medicare Wellness Subsequent Future Scheduled TestsTSH With T4fr Reflex 10/30/23TSH With T4fr Reflex 08/19/23Vitamin D 25 Hydroxy 10/30/23Vitamin D 25 Hydroxy 08/19/23CBC w/ Auto Diff 08/19/23Comprehensive Metabolic Panel 08/19/23Lipid Panel 08/19/23 [facility] Evaluation + Plan note Future Appointments Appointment Date:05/26/2024 11:20:00 AM Scheduled Provider:Vilma John Location:[facility] Appointment Type: Open Appointment Date:05/26/2024 01:00:00 PM Scheduled Provider: Location:[facility] Appointment Type: Medicare Wellness Subsequent Future Scheduled TestsSedimentation Rate Automated 01/15/TSH With T4fr Reflex 10/30/23TSH With T4fr Reflex 08/19/23Vitamin D 25 Hydroxy 10/30/23Vitamin D 25 Hydroxy 08/19/23CBC w/ Auto Diff 08/19/23C-Reactive Protein 01/15/24Free T4 01/15/24Vitamin B12 Level 01/15/24MRA Neck w/o Contrast 01/15/24MRI Brain w/ + w/o Contrast 01/15/24MRI Spine Cervical w/o Contrast 01/15/24 [facility] Primary [facility] Evaluation + Plan note Future Appointments Appointment Date:01/22/2024 06:00:00 PM Scheduled Provider: [facility] () Appointment Date:05/26/2024 11:20:00 AM Scheduled Provider:Vilma John Location:[facility] Appointment Type: Open Appointment Date:05/26/2024 01:00:00 PM Scheduled Provider: Location:[facility] Appointment Type: Medicare Wellness Subsequent Future Scheduled TestsSedimentation Rate Automated 01/15/24TSH With T4fr Reflex 10/30/23TSH With T4fr Reflex 08/19/23Vitamin D 25 Hydroxy 10/30/23Vitamin D 25 Hydroxy 08/19/23CBC w/ Auto Diff 08/19/23C-Reactive Protein 01/15/24Free T4 01/15/24Vitamin B12 Level 01/15/24MRI Brain w/ + w/o Contrast 01/22/24 [facility] Evaluation + Plan note Future Appointments Appointment Date:05/26/2024 11:20:00 AM Scheduled Provider:Vilma John [facility] App[facility] Type: Open Appointment Date:05/26/2024 01:00:00 PM Scheduled Provider: Location:[facility] Appointment Type: Medicare Wellness Subsequent Future Scheduled TestsSedimentation Rate Automated 01/15/24TSH With T4fr Reflex 10/30/23TSH With T4fr Reflex 08/19/23Vitamin D 25 Hydroxy 10/30/23Vitamin D 25 Hydroxy 08/19/23CBC w/ Auto Diff 08/19/23C-Reactive Protein 01/15/24Free T4 01/15/24Vitamin B12 Level 01/15/24 [facility] Evaluation + Plan note Future Appointments Appointment Date:05/26/2024 11:20:00 AM Scheduled Provider:Vilma John Location:[facility] Appointment Type: Open Appointment Date:05/26/2024 01:00:00 PM Scheduled Provider: Location:[facility] Appointment Type: Medicare Wellness Subsequent Future Scheduled TestsTSH With T4fr Reflex 10/30/23TSH With T4fr Reflex 08/19/23Vitamin D 25 Hydroxy 10/30/23Vitamin D 25 Hydroxy 08/19/23CBC w/ Auto Diff 08/19/23 [facility] Primary Care Evaluation + Plan note Future Appointments Appointment Date:05/12/2024 02:40:00 PM Scheduled Provider:Vilma John Location:[facility] Appointment Type: Open Appointment Date:05/26/2024 11:20:00 AM Scheduled Provider:Vilma John Location:[facility] Appointment Type: Open Appointment Date:05/26/2024 01:00:00 PM Scheduled Provider: Location:[facility] Appointment Type: Medicare Wellness Subsequent Future Scheduled TestsTSH With T4fr Reflex 10/30/23TSH With T4fr Reflex 9/19/23Vitamin D 25 Hydroxy 10/30/23Vitamin D 25 Hydroxy 08/19/23CBC w/ Auto Diff 08/19/23 [facility] [place] Evaluation + Plan note Future Appointments Appointment Date:05/26/2024 11:20:00 AM Scheduled Provider:Vilma John Location:[facility] Appointment Type: Open Appointment Date:05/26/2024 01:00:00 PM Scheduled Provider: Location:[facility] Appointment Type: Medicare Wellness Subsequent Future Scheduled TestsIgE, Quant 05/12/24Complement Total (CH50) 05/12/24ANA w/Reflex if POS 05/12/24IgA, Quant. 05/12/24IgG, Quant. 05/12/24IgM, Quant 05/12/24TSH With T4fr Reflex 08/19/23TSH With T4fr Reflex 05/12/24Vitamin D 25 Hydroxy 08/19/23Vitamin D 25 Hydroxy 05/12/24Basic Metabolic Panel 05/12/24CBC w/ Auto Diff 08/19/23CBC w/ Auto Diff 05/12/24 [facility] Primary [facility] Evaluation + Plan note Future Appointments Appointment Date:05/26/2024 11:20:00 AM Scheduled Provider:Vilma John Location:[facility] Appointment Type: Open Appointment Date:05/26/2024 01:00:00 PM Scheduled Provider: Location:[facility] Appointment Type:FM Medicare Wellness Subsequent Diagnostic Tests PendingVitamin D 25 Hydroxy 05/13/24IgA, Quant. 05/13/24IgG, Quant. 05/13/24IgM, Quant 05/13/24IgE, Quant 05/13/24ANA w/Reflex if POS 05/13/24Complement Total (CH50) 05/13/24 Future Scheduled TestsTSH With T4fr Reflex 08/19/23Vitamin D 25 Hydroxy 08/19/23CBC w/ Auto Diff 08/19/23 [facility] Evaluation + Plan note Future Appointments Appointment Date:08/25/2024 10:00:00 AM Scheduled Provider:[facility] John [facility] Type: Open Appointment Date:05/25/2025 02:30:00 PM Scheduled Provider: [facility] Type: Medicare Wellness Subsequent Future Scheduled TestsTSH With T4fr Reflex 08/19/23Vitamin D 25 Hydroxy 08/19/23CBC w/ Auto Diff 08/19/23 [facility] Primary [facility] Evaluation + Plan note Future Appointments Appointment Date:05/25/2025 02:30:00 PM Scheduled Provider: [facility] Type: Medicare Wellness Subsequent [facility] Evaluation + Plan note Future Appointments Appointment Date:11/03/2024 01:40:00 PM Scheduled Provider:Vilma John [facility] Appointment Type: Open Appointment Date:05/25/2025 02:30:00 PM Scheduled Provider: [facility] Appointment Type: Medicare Wellness Subsequent [facility] Primary [facility] Evaluation note Diagnosis Bilateral hand pain Pain in limb [facility] noteNo assessment information available[facility] Work Phone: Evaluation note* Diagnosis Coronary artery disease, non-occlusive Coronary atherosclerosis of unspecified type of vessel, [place] or graft Dyslipidemia Other and unspecified hyperlipidemia Essential hypertension Unspecified essential hypertension Mitral valve insufficiency, unspecified etiology Hypothyroidism, unspecified type BMI 23.0-23.9, adult Never smoked tobacco documented in this encounter [facility] Work Phone: Hospital course Narrative No data available for this section [facility] No data available for this section [facility] No data available for this section [facility] Summary Purpose Family History Unknown Family Member Name Dates Details Family [...] malignant melanoma: Brother(V16.8, Z80.8) Status:Active Advance Directives Advance Directive Response Recorded Date/ Time Advance [...] section and content) DATE CREATED AUTHOR 05/26/2018 [facility] DATE CREATED AUTHOR AUTHOR'S ORGANIZ ATION 11/11/2019 [facility] DATE CREATED AUTHOR AUTHOR'S ORGANIZ ATION 2022 [facility] DATE CREATED AUTHOR AUTHOR'S ORGANIZ ATION 04/11/2023 [facility] DATE CREATED AUTHOR AUTHOR'S ORGANIZ ATION 07/16/2023 [facility] DATE CREATED AUTHOR AUTHOR'S ORGANIZ ATION 07/16/2023 [employer] DATE CREATED AUTHOR AUTHOR'S ORGANIZ ATION 05/15/2024 [facility] DATE CREATED AUTHOR AUTHOR'S ORGANIZ ATION 05/16/2024 [facility] DATE CREATED AUTHOR AUTHOR'S ORGANIZ ATION 05/21/2024 [facility] DATE CREATED AUTHOR AUTHOR'S ORGANIZ ATION 05/27/2024 [facility] DATE CREATED AUTHOR AUTHOR'S ORGANIZ ATION 08/27/2024 [facility] DATE CREATED AUTHOR AUTHOR'S ORGANIZ ATION 09/16/[address] 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 Relationship Specialty Start Date End Date Cristin Roblero, EDUCATIONAL CONSULTANT [address] [place] [address] PCP - General Family Medicine 11/20/20 Team Status: Active Member Role Status Dates Camryn Kwokaggie , CATERER HELPER-C Primary Care Provider Act franc Team Status: Inactive Member Role Status Dates Camryn De La Rosa CATERER HELPER-C Primary Care Provider Act franc Jay Jya Mariscal MD Attending Provider Active Team Status: Inactive Member Role Status Dates Ryley Marinelli Attending Provider Active Camryn De La Rosa , CATERER HELPER-C Primary Care Provider Act franc 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 Relationship Specialty Start Date End Date Vilma Mcallister NP [address] [place] [address] Referring Physician Family Medicine 11/13/23 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 Goals (unrecognized section and content) Goals [...] BE BASED ON THE PRIMARY CLINICAL RECORDS. [employer] [facility]. provides no warranty or guarantee of the accuracy or completeness of information in this document.
[2024-11-05 08:21] VITALS: BP 158/76; PULSE 63; TEMP 36.6; O2SAT 97; BMI 23.1
[2024-11-05] MEDS: LACTATED RINGER'S SOLUTION 1,000 ML 50 ML IV (08:33)
--- NOTE | 2024-11-05 10:41 | PM.ONB ---
Brief Operative Note Date of procedure: 11/05/24 Pre-op diagnosis general: thickened endometrium Post-op diagnosis: same as pre-op Procedure: NAME OF PROCEDURE: [ D&c hysteroscopy with myosure] PROCEDURE: The patient was taken back to the Operating Room where she was prepped and draped in normal sterile fashion after being placed under general anesthesia without difficulty. She was also placed in the dorsal lithotomy position. A weighted speculum was placed in the patient?s vagina. The anterior lip of the cervix was identified and grasped with a single tooth tenaculum. The patient?s uterus was then sounded roughly to [? 8] cm. The patient was then gently dilated using Hegar dilators. The hysteroscope was passed through the patient?s cervix into the uterus. Both ostia were identified. fluffy appearing endometrium. No gross evidence of malignancy, no gross evidence of polyps or fibroids. The myosure apparatus was placed through the scope, The myosure was engaged and endometrial curretting were removed along with endometrial polyp, The hysteroscope was then removed from the uterus. The endometrial curettings were sent out to pathology. The single tooth tenaculum was then removed from the patient's anterior lip of the cervix where excellent hemostasis was noted. All instruments were removed from the patient?s vagina. The patient tolerated the procedure well. Sponge, lap and needle counts were correct times two. The patient was taken to the Recovery Room in stable condition.Room in stable condition. Anesthesia: MAC Surgeon: Ryley Marinelli Estimated blood loss (mL): 5 Pathology: other (endometrial currettings) Condition: stable Disposition: PACU Urinary Catheter Management Urinary Catheter Management Urethral: Cath placed during this visit: no
[2024-11-05 10:50] VITALS: BP 148/73; PULSE 69; TEMP 36.4; O2SAT 95
[2024-11-05 11:05] VITALS: BP 154/77; PULSE 56; TEMP 36.4; O2SAT 98
[2024-11-05 11:20] VITALS: BP 168/82; PULSE 64; TEMP 36.4; O2SAT 96
[2024-11-05 11:50] VITALS: BP 166/81; PULSE 59; O2SAT 97
[2024-11-05 12:20] VITALS: BP 167/76; PULSE 61; TEMP 36.4; O2SAT 96
== END 2024-11-05 12:28 | disposition home or self-care (01) ==
PROVIDERS: Visit Provider Obstetrics & Gynecology
PROC: (CPT 58558; principal; 2024-11-05 09:25)
DX: R93.89 Abnormal findings on diagnostic imaging of other specified body structures (principal); N94.89 Other specified conditions associated with female genital organs and menstrual cycle; R53.83 Other fatigue; Z87.01 Personal history of pneumonia (recurrent); N80.03 Adenomyosis of the uterus; E78.5 Hyperlipidemia, unspecified; I10 Essential (primary) hypertension; I25.10 Atherosclerotic heart disease of native coronary artery without angina pectoris; K21.9 Gastro-esophageal reflux disease without esophagitis; E03.9 Hypothyroidism, unspecified
CPT/HCPCS: 58558; 36415; 85025; 88305; J1100; J1885; J2250; J2405; J2704; J3010

== ENCOUNTER 2024-11-25 15:08 | Outpatient (OUT) | payer OTHER, SELFPAY ==
--- NOTE | 2024-11-25 15:10 | MM_ITS ---
Patient Name: KERMIT ALBERT MR#: [id number] : 1950 Exam Date: 11/25/2024 Ordering Doctor: DR Ryley Marinelli . RADIOLOGY REPORT PROCEDURE: MM TOMOSYNTHESIS DIAGNOSTIC BI COMPARISON: US BREAST BI COMPLETE, 07/12/2024. MAMMO POST HOOKWIRE RIGHT, 02/02/2021. MM TOMOSYNTHESIS DIAGNOSTIC RT, 01/03/2021. INDICATIONS: Abnormal Mammogram Calculator Name NCI Breast Cancer Risk Assessment Tool 5 Year Breast Cancer Risk Not Reported. Lifetime Breast Cancer Risk Not Reported. Personal Breast Cancer No Personal Ovarian Cancer No Treatments None Family Cancers None LOCATION: [facility] BREAST COMPOSITION: There are scattered areas of fibroglandular density. FINDINGS: DIAGNOSTIC CATEGORY 3--PROBABLY BENIGN FINDING. THE FOLLOWING FINDING(S) HAS A HIGH PROBABILITY OF A BENIGN ETIOLOGY: RIGHT BREAST: Suspected biopsy marker and post biopsy scarring within posterior upper-outer quadrant which correlates to findings on prior ultrasound study; neoplasm is felt less likely. (Please correlate with patient history). LEFT BREAST: No significant suspicious finding. RECOMMENDATIONS: SHORT TERM FOLLOW-UP DIAGNOSTIC MAMMOGRAM RIGHT BREAST IN 6 MONTHS. PLEASE NOTE: A NORMAL MAMMOGRAM DOES NOT EXCLUDE THE POSSIBILITY OF BREAST CANCER. A CLINICALLY SUSPICIOUS PALPABLE LUMP SHOULD BE BIOPSIED. Dictated by: Guanakito Vásquez M.D. on 11/25/2024 at 15:42 Approved by: Guanakito Vásquez M.D. on 11/25/2024 at 15:53
--- OUTSIDE RECORDS SUMMARY | 2024-11-25 15:24 | XMS_ITS | CCD ---
Author Organization [facility] Care Team Providers Care Apron Operator Name Role Phone CRIS VALENZUELA Unavailable Unavailable BIANCA, CRIS Unavailable Unavailable CRIS VALENZUELA Unavailable Unavailable Lidia Robleroa Shaw Unavailable Unavailable Unavailable Malinda Rubio Primary Care Physician [phone] TYRELL ., DR DELGADO Consulting Unavailabl e [...] KARASIK ., DR DELGADO Consulting Unavailabl e [place]ON[place]ET[place], DR IDALIA Smith Consulting Unavailable Osbaldo SEWELLCristin Primary Care Provider ANIKA De La Rosa Primary Care Provide r MD Jay Jay Pisano Attending Provider Camryn De La Rosa Unavailable Ms. Camryn De La Rosa Primary Care Unava ilford Pisano, Dr. Jay Jay Lewis Attending Kimberley vailable Davey, Dr. Jay Jay Lewis Referring Kimberley vailable Camryn De La Rosa Primary Care Physician Vilma Mcallister Primary Care Physician [phone] Ryley Marinelli Attending Provider ANIKA De La Rosa Primary Care Provide r Shayla Mcallisterbeth L Attending Unavailable Esvin, Vilma L Admitting [...] Attending Unavailable Esvin, Vilma L Attending Unavailable Esvin Vilma MCCORMACK Unavailable Unavailable Primary Care Provider UnavailJAY JAY Taylor Attending Unavailable CAMRYN DE LA ROSA Primary Care Unavailable Ryley Marinelli Attending Unavailable Ryley Marinelli Admitting Unavailable Esvin, Vilma L Attending Unavailable Vilma Mcallister Attending Unavailable Vilma Mcallister Referring Unavailable Singh Sellers Attending Unavailable Vilma Mcallister Attending Unavailable Vilma Mcallister Attending Unavailable Vilma Mcallister Attending Unavailable Reggie Martinez MD Primary Care Provider NORMA VARGAS Attending Unavailable RYLEY MARINELLI Attending Unavailable TANIYA FREY Attending Unavailable RYLEY MARINELLI Attending Unavailable TANIYA FREY Attending Unavailable NORMA VARGAS Attending Unavailable Allergies Allergy Classification Reported Allergen(s) Allergy Type Date of Onset Reaction(s) Facility Angiotensin Converting Enzyme (CARMELINA) Inhibitors (2 sources) Lisinopril; Translations: [lisinopril] Drug Allergy Unknown (qualifier value) [facility] Doxycycline (2 sources) Doxycycline; Translations: [doxycycline] Drug Allergy Mycosis (disorder) [facility] hydroCHLOROthiazide (2 sources) hydroCHLOROthiazide; Translations: [hydrochlorothiazide] Drug Allergy Disorder of electrolytes (disorder) [facility] Hydroflumethiazide (1 source) Hydroflumethiazide; Translations: [hydroflumethiazide] Drug Allergy [facility] Repository NSAIDs (4 sources) Diclofenac; Translations: [diclofenac] Drug Allergy Hypertensive disorder, systemic arterial (disorder) [facility] Propranolol (2 sources) Propranolol; Translations: [propranolol] Drug Allergy hives [facility] Serotonin Reuptake Inhibitors (SSRIs) (4 sources) Citalopram; Translations: [citalopram] Drug Allergy Unknown (qualifier value) [facility] Unclassified (2 sources) No Known Medication Allergies; Translations: [No Known Medication Allergies] Propensity to adverse reactions (disorder) [facility] Repository (9 sources) atorvastatin; Translations: [atorvastatin] Drug Allergy 023 Unknown [facility] (20 sources) Citalopram; Translations: [CeleXA TABS] Drug Allergy 019 Unknown (qualifier value), Unknown [facility] roger 250 DO Work Phone: (20 sources) Diclofenac; Translations: [diclofenac] Drug Allergy 023 Hypertensive disorder, systemic arterial (disorder), Unknown [facility] roger 250 DO Work Phone: (20 sources) Doxycycline; Translations: [doxycycline] Drug Allergy 021 Mycosis (disorder), Unknown [facility]ger [facility] DO Work Phone: (20 sources) hydroCHLOROthiazide; Translations: [hydrochlorothiazide] Drug Allergy 019 Disorder of electrolytes (disorder), Unknown [facility] roger 250 DO Work Phone: (20 sources) Lisinopril; Translations: [lisinopril] Drug Allergy Unknown (qualifier value), Intolerance, Cough [facility] roger 250 DO Work Phone: (20 sources) Propranolol; Translations: [propranolol] Drug Allergy 019 Unknown [facility] [employer] DO Work Phone: (12 sources) Diclofenac; Translations: [diclofenac sodium] Drug Allergy Intolerance [facility] (1 source) Thiazides Propensity to adverse reactions to drug Unknown [facility] (4 sources) Citalopram; Translations: [CITALOPRAM] Drug Allergy Muscle Pain [facility] (10 sources) atorvastatin Drug Allergy [facility] Healthcare Work Phone: (10 sources) benzonatate Drug Allergy [facility] Healthcare (11 sources) benzyl benzoate Drug Allergy [facility] Healthcare (11 sources) hydroCHLOROthiazide Drug Allergy [facility] Healthcare (11 sources) Lisinopril Propensity to adverse reactions Cough [facility] (10 sources) Octacosanol Drug Allergy [facility] Healthcare (10 sources) Other Propensity to adverse reactions [facility] Healthcare (1 source) hydroCHLOROthiazide Drug Allergy [facility] Repository (1 source) Lisinopril Drug Allergy [facility] Repository (1 source) Propranolol Drug Allergy [facility] Repository (1 source) Citalopram; Translations: [Citalopram Hydrobromide] Drug Allergy [facility] Rep[facility] (1 source) Citalopram; Translations: [CeleXA] Drug Allergy [facility] (1 source) Diclofenac; Translations: [Voltaren Topical] Drug Allergy [facility] (1 source) Hydroflumethiazide; Translations: [hydroflumethiazide] Drug Allergy [facility] Medications Current Medications Medication Drug Class(es) Dates Sig (Normalized) Sig (Original) [id number] 200 actuat albuterol 0.09 mg/actuat metered dose inhaler (10 sources) beta2-Adrenergic Agonist albuterol HFA 90 mcg/act inhaler Active Albuterol (Eqv-Ventolin HFA) 90 mcg/inh inhalation aerosol (2 sources) Start: 09-04-2023 take 2 puff(s) by inhalation every six hours Albuterol (Eqv-Ventolin HFA) 90 mcg/inh inhalation aerosol 2 puff(s), Inhalation, q6hr, 18 gm, Refill(s) 0, [facility], 154, cm, 09/04/23 9:44:00 EDT, Height/Length Dosing, 56.1, kg, 09/04/23 9:44:00 EDT, Weight Dosing Start Date: 09/04/23 Status: Ordered ALPRAZolam 0.25 mg oral tablet (20 sources) Benzodiazepine Start: 11-09-2020 End: 10-11-2024 take 1 tablet by mouth once daily as needed alprazolam 0.25 mg Tab 0.25 mg = 1 tab(s), Oral, Daily, PRN for insomnia, # 12 tab(s), Refills(s) 0, Pharmacy: [facility], 154, cm, 09/26/23 9:41:00 [...] for 10 day(s), 20 tab(s), Refill(s) 0, [facility], 154, cm, 10/15/24 10:15:00 [...] day(s), # 6 tab(s), Refills(s) 0, Pharmacy: [facility], 154, cm, 10/15/24 10:15:00 EST, Height/Length Dosing, 55.6, kg, 10/15/24 10:15:00 EST, Weight Dosing Start Date: 10/15/24 Stop Date: 10/20/24 Status: Ordered Start: 09-24-2022 End: 09-29-2022 Zithromax 250 mg Tab = 1 pac ket(s), Oral, As Directed, as directed on package labeling, X 5 day(s), # 6 tab(s), Refills(s) 0, Pharmacy: [facility], 154, cm, 09/24/22 12:01:00 [...] day(s), # 30 cap(s), Refills(s) 0, Pharmacy: [facility], 154, cm, 10/15/24 10:15:00 EST, Height/Length Dosing, 55.6, kg, 10/15/24 10:15:00 EST, Weight Dosing Start Date: 10/15/24 Stop Date: 10/25/24 Status: Ordered Start: 12-17-2022 End: 12-24-2022 take 1 capsule by mouth three times daily Tessalon 100 mg Cap 100 mg = 1 cap(s), Oral, TID, X 7 day(s), # 21 cap(s), Refills(s) 0, Pharmacy: [facility], 154, cm, 12/17/22 11:54:00 EST, Height/Length Dosing, 57, kg, 12/17/22 11:54:00 EST, Weight Dosing Start Date: 12/17/22 Stop Date: 12/24/22 Status: Ordered brompheniramine maleate 0.4 mg/ml / dextromethorphan hydrobromide 2 mg/ml / pseudoephedrine hydrochloride 6 mg/ml oral solution (20 sources) alpha-Adrenergic Agonist, Uncompetitive M-faecsf-A-aspartate Receptor Antagonist, Sigma-1 Agonist Start: 09-26-2023 take 5 mL by mouth four times daily for cough and congestion Bromfed DM oral syrup 5 mL, Oral, QID for cough and congestion, 200 mL, Refill(s) 0, [facility], 154, cm, 04/14/24 9:52:00 EDT, Height/Length Dosing, 56, kg, 04/14/24 9:52:00 EDT, Weight Dosing Start Date: 04/14/24 Status: Ordered Elderberry Gummies with Vitamin C and Zinc (8 sources) Start: 05-12-2024 Elderberry Gummies with Vitamin C and Zinc 1 tablet, Chewed, Daily, Refill(s) 0 Start Date: 05/12/24 Status: Ordered Elderberry preparation (17 sources) Start: 10-30-2023 Elderberry 500 MG capsule Refill(s) 0 10/30/2023 Active Start: 10-30-2023 elderberry Ref ill(s) 0 Start Date: 10/30/23 Status: Ordered estradiol 0.1 mg/ml vaginal cream (2 sources) Estrogen Start: 12-12-2020 Estrace 0.1 mg /g Cream See Instructions, 42.5 gm, Refill(s) 0, 0.5 to 1 gm Vaginal 1-2 x per week at bed time., [facility], 155, cm, 12/12/20 12:23:00 EST, Height/Length Dosing, 58.6, kg, 12/12/20 12:23:00 EST, Weight Dosing Start Date: 12/12/20 Status: Ordered Fish Oils (2 sources) Start: 04-27-2019 take 1 capsule by mouth twice daily Fish Oil 1000 mg oral capsule 1,000 mg = 1 cap(s), Oral, BID, Refills(s) 0, Prophylaxis Start Date: 04/27/19 Status: Ordered fluconazole 150 mg oral tablet (4 sources) Azole Antifungal Start: 11-04-2024 take 1 tablet by mouth once Diflucan 150 mg Tab 150 mg = 1 tab(s), Oral, Once, # 1 tab(s), Refills(s) 1, Pharmacy: [facility], 154, cm, 10/15/24 10:15:00 EST, Height/Length Dosing, 55.6, kg, 10/15/24 10:15:00 EST, Weight Dosing Start Date: 11/04/24 Status: Ordered Start: 10-15-2024 take 1 tablet by mouth once Di flucan 150 mg Tab 150 mg = 1 tab(s), Oral, Once, # 1 tab(s), Refills(s) 1, Pharmacy: [facility], 154, cm, 10/15/24 10:15:00 EST, Height/Length Dosing, 55.6, kg, 10/15/24 10:15:00 EST, Weight Dosing Start Date: 10/15/24 Status: Ordered Start: 09-04-2023 Diflucan 100 m g Tab 100 mg = 1 tab(s), Oral, Daily, take once if needed and may repeat if needed, # 2 tab(s), Refills(s) 0, Pharmacy: [facility], 154, cm, 09/04/23 9:44:00 EDT, Height/Length Dosing, 56.1, kg, 09/04/23 9:44:00 EDT, Weight Dosing Start Date: 09/04/23 Status: Ordered Garlic preparation (20 sources) Non-Standardized Food Allergenic Extract Start: 09-12-2022 Garlic See Instructions, 1 tab daily OTC Start Date: 09/12/22 Status: Ordered H-HTP 100 mg (4 sources) Start: 07-09-2024 H-HTP 100 mg H-HTP [...] bed, # 40 tab(s), Refills(s) 1, Pharmacy: [facility], 154, cm, 08/19/23 11:14:00 [...] pain, # 90 tab(s), Refills(s) 0, Pharmacy: [facility] Start Date: 07/09/19 Status: Ordered Iodine (17 sources) Start: 10-30-2023 iodine Refills(s) 0 Start Date: 10/30/23 Status: Ordered Ivermectin (12 sources) Antiparasitic, Pediculicide Start: 04-14-2024 take 12 mg by mouth once ivermectin 12 mg, Oral, Once, Refills(s) 0 Start Date: 04/14/24 Status: Ordered Start: 03-01-2021 take 3 tablets by mouth once i vermectin 3 mg oral tablet 9 mg = 3 tab(s), Oral, Once, # 3 tab(s), Refills(s) 0, Pharmacy: [facility], 154.9, cm, 02/19/21 14:27:00 EDT, Height/Length Dosing, 57, kg, 02/19/21 14:27:00 EDT, Weight Dosing Start Date: 03/01/21 Status: Ordered ketoconazole 10 mg/ml medicated shampoo (8 sources) Azole Antifungal Start: 09-12-2022 ketoconazole topical 1% shampoo 1 christiano, Topical, q3day, 210 mL, Refill(s) 1, [facility], 154, cm, 09/12/22 10:34:00 EDT, Height/Length Dosing, 56.4, kg, 09/12/22 10:34:00 EDT, Weight Dosing Start Date: 09/12/22 Status: Ordered levoFLOXacin 750 mg oral tablet (2 sources) Quinolone Antimicrobial Start: 05-06-2024 End: 05-13-2024 take 1 tablet by mouth once daily Levaquin 750 mg Tab 750 mg = 1 tab(s), Oral, Daily, X 7 day(s), # 7 tab(s), Refills(s) 0, Pharmacy: [facility], 154, cm, 05/06/24 15:09:00 [...] BID, # 60 tab(s), Refills(s) 5, Pharmacy: [facility] Start Date: 10/06/19 Status: Ordered Start: 07-29-2019 take 50 mg by mouth once daily Losartan Active 50 MG PO Daily July 28, 2019 11:00pm Comment on above: Take 50 mg by mouth once daily. magnesium amino acid chelate (19 sources) Start: 023 magnesium amino acids chelate Refills(s) 0 Start Date: 09/04/23 Status: Ordered meclizine hydrochloride 12.5 mg oral tablet (2 sources) Antiemetic Start: 021 take 1 tablet by mouth three times daily as needed for dizziness Antivert 12.5 mg Tab 12.5 mg = 1 tab(s), Oral, TID, PRN for dizziness, # 30 tab(s), Refills(s) 0, Pharmacy: [facility], 155, cm, 12/12/20 12:23:00 EST, Height/Length Dosing, 58.6, kg, 12/12/20 12:23:00 EST, Weight Dosing Start Date: 12/12/20 Status: Ordered methylPREDNISolone 4 mg oral tablet (2 sources) Corticosteroid Start: End: 024 Medrol 4 mg Tab = 1 packet(s), Oral, As Directed, as directed on package labeling, X 6 day(s), # 21 tab(s), Refills(s) 0, Pharmacy: [facility], 154, cm, 04/14/24 9:52:00 EDT, Height/Length Dosing, 56, kg, 04/14/24 9:52:00 EDT, Weight Dosing Start Date: 04/14/24 Stop Date: 04/20/24 Status: Ordered Start: 09-17-2022 End: 09-23-2022 Medrol 4 mg Tab = 1 packet(s ), Oral, As Directed, as directed on package labeling, X 6 day(s), # 21 tab(s), Refills(s) 0, Pharmacy: [facility], 154, cm, 09/12/22 10:34:00 [...] once daily. mupirocin 0.02 mg/mg topical ointment (14 sources) RNA Synthetase Inhibitor Antibacterial Start: 07-09-2024 mupirocin Top 2% Oint 1 christiano, Topical, BID Diabetic, 30 gram, Refill(s) 0, [facility], 154, cm, 07/09/24 9:47:00 EDT, Height/Length Dosing, 54.2, kg, 07/09/24 9:47:00 EDT, Weight Dosing Start Date: 07/09/24 Status: Ordered Start: 10-30-2023 mupirocin Top 2% Oint 1 christiano, Topical, TID, 30 gram, Refill(s) 1, [facility], 154, cm, 10/30/23 9:48:00 EST, Height/Length Dosing, 57.8, kg, 10/30/23 9:48:00 EST, Weight Dosing Start Date: 10/30/23 Status: Ordered Start: 03-22-2021 mupirocin Top 2% Oint 1 christiano, Topical, TID nasal sore., 15 gm, Refill(s) 0, [facility], 154.9, cm, 03/22/21 9:27:00 EDT, Height/Length Dosing, 57.7, kg, 03/22/21 9:27:00 EDT, Weight Dosing Start Date: 03/22/21 Status: Ordered NAC Detox Regulators (16 sources) Start: 01-15-2024 take 500 ug by mouth once daily NAC Detox Regulators NAC Detox Regulators, Oral, Daily, Selenium 500 mcg, Molybdenum 50 mcg, and N-Acetylcysteine 600 mg Start Date: 01/15/24 Status: Ordered nitroglycerin 0.4 mg sublingual tablet (17 sources) Nitrate Vasodilator Start: 07-29-2019 Nitroglycerin Active 0.4 MG SUBLINGUAL Q5M July 28, 2019 11:00pm until response; do not exceed 3 doses per episode omeprazole 40 mg delayed release oral capsule (2 sources) Proton Pump Inhibitor Start: 02-28-2020 take 1 capsule by mouth once daily omeprazole 40 mg Cap-DR 40 mg = 1 cap(s), Oral, Daily, # 30 cap(s), Refills(s) 2, Pharmacy: [facility], 155.2, cm, 02/07/20 13:54:00 EDT, Height/Length Measured, 60.7, kg, 02/07/20 13:54:00 EDT, Weight Measured Start Date: 02/28/20 Status: Ordered Oxytocin-Sodium Chloride 15-0.9 UT/250ML-% solution (11 sources) Oxytocin-Sodium Chloride 15-0.9 UT/250ML-% solution Infuse into a venous catheter. Active predniSONE 10 mg oral tablet (2 sources) Start: 10-15-2024 predniSONE 10 mg Tab See Instructions, - Oral As Directed 4 tabs x 2 days, 3 tabs 2 days, 2 tabs x 2 days then 1 tab x 2 days with food, # 16 tab(s), Refills(s) 0, Pharmacy: [facility], 154, cm, 10/15/24 10:15:00 EST, Height/Length Dosing, 55.6, kg, 10/15/24 10:15:00 EST, Weight Dosing Start Date: 10/15/24 Status: Ordered Start: 12-17-2022 End: 12-22-2022 take 2 tablets by mouth twice daily predniSONE 20 mg Tab 40 mg = 2 tab(s), Oral, BID, X 5 day(s), # 20 tab(s), Refills(s) 0, Pharmacy: [facility], 154, cm, 12/17/22 11:54:00 EST, Height/Length Dosing, 57, kg, 12/17/22 11:54:00 EST, Weight Dosing Start Date: 12/17/22 Stop Date: 12/22/22 Status: Ordered progesterone 100 mg vaginal insert (11 sources) Progesterone progesterone (Endometrin) 100 MG vaginal insert Insert 100 mg into the vagina in the morning and 100 mg before bedtime. Active Promethazine (6 sources) Phenothiazine Start: 09-17-20 take 5 mL by mouth every six hours for cough Promethazine DM oral syrup 5 mL, Oral, q6hr for cough, 120 mL, Refill(s) 0, [facility], 154, cm, 09/12/22 10:34:00 [...] 1 tablet by mouth once daily sertraline (Zoloft) 50 MG tablet [...] meq/ml nasal spray (10 sources) Start: 01-25-2022 Apison Saline Mist 0.65% nasal spray 2 spray(s), Nasal, QID, 1 EA, Refill(s) 1, [facility], 154, cm, 01/25/22 11:10:00 EST, Height/Length Dosing, 57.2, kg, 01/25/22 11:10:00 EST, Weight Dosing Start Date: 01/25/22 Status: Ordered spacer (19 sources) Start: 09-04-2023 spacer spacer, See Instructions, 1 EA, 1, please dispense an adult mdi spacer chamber, [facility], Supply, 154, cm, 09/04/23 9:44:00 EDT, Height/Length Dosing, 56.1, kg, 09/04/23 9:44:00 EDT, Weight Dosing Start Date: 09/04/23 Status: Ordered thyroid (long-term) 30 mg oral tablet (20 sources) Start: 11-09-2020 End: 10-10-2025 take 1 tablet by mouth once daily [place] Thyroid 30 mg Tab 30 mg = 1 tab(s), Oral, Daily, no Generic substitutions please -, X 90 day(s), # 90 tab(s), Refills(s) 3, Pharmacy: [facility], 154, cm, 10/15/24 10:15:00 EST, Height/Length Dosing, [...] QID for wheezing, 18 gram, Refill(s) 1, [facility], 154, cm, 10/15/24 10:15:00 EST, Height/Length Dosing, 55.6, kg, 10/15/24 10:15:00 EST, Weight Dosing Start Date: 10/15/24 Status: Ordered Start: 12-17-2022 take 2 puff(s) by in halation four times daily for wheezing Ventolin HFA 90 mcg/inh Aerosol-Adpt 2 puff(s), Inhalation, QID for wheezing, 18 gram, Refill(s) 0, [facility], 154, cm, 12/17/22 11:54:00 [...] Start Date: 04/27/19 Status: Ordered vitamin K2 (19 sources) Start: 09-04-2023 Vitamin K2 Ref ill(s) [...] 90 Refills: 3 Ordered: 11-Oct-2021 Jay Jay Pisano MD Start : 11-Oct-2021 Active Start: 07-29-2019 [...] Ordered: 16-Jul-2022 DO Active Nitric Oxide Foundation (16 sources) Start: 01-15-20 Nitric Oxide Foundation Nitric [...] 90 Refills: 3 Ordered: 15-Jul-2023 Jay Jay Pisano MD Start : 15-Jul-2023 Active new serratiopeptidase (16 sources) Start: 01-15-20 Serrapeptase 40,000 SPU Serrapeptase [...] / vitamin e 5 unt oral capsule (13 sources) Start: 07-15-20 take 1 capsule by mouth once daily Co Q 10 100 MG Oral Capsule TAKE 1 CAPSULE Daily Quantity: 90 Refills: 3 Ordered: 15-Jul-2023 Jay Jay Pisano MD Start : 15-Jul-2023 Active take 1 [...] day(s), # 13 cap(s), Refills(s) 0, Pharmacy: [facility], 154, cm, 09/12/22 10:34:00 [...] (20 sources) Hernia of anterior abdominal wall Resolved : 04-27-20 19 10-08-2019 Episodic Acute bronchitis (2 sources) Acute infective bronchitis; Translations: [Acute bronchitis due to other specified organisms] Onset: 12-17-19 Episodic Anxiety disorders (20 sources) Anxiety; Translations: [Anxiety disorder] Onset: 06-04-20 23 02-07-2020 Chronic Cancer of breast (20 sources) Intraductal carcinoma in situ of breast; Translations: [Malignant neoplasm of upper-inner quadrant of female breast] Onset: 12-17-19 23 01-19-2021 Chronic Cataract (11 sources) Bilateral age-related nuclear cataracts; Translations: [Age-related nuclear cataract, bilateral] Onset: 11-10-20 23 11-10-2023 Chronic Chronic obstructive pulmonary disease and bronchiectasis (20 sources) Bronchitis; Translations: [Bronchitis, not specified as acute or chronic] Onset: 09-26-20 Episodic Coronary atherosclerosis and other heart disease (20 sources) Coronary arteriosclerosis; Translations: [Coronary atherosclerosis of unspecified type of vessel, [place] or graft] Onset: 06-04-2002-07-2020 Chronic Comment on above: 40% LAD, cardiac cat heterization 2018; Disorders of lipid metabolism (20 sources) Dyslipidemia; Translations: [Other and unspecified hyperlipidemia] Onset: 10-09-20 Chronic E Codes: Fall (10 sources) Fall 08-17-2021 Esophageal disorders (20 sources) Gastroesophageal reflux disease; Translations: [Gastro-esophageal reflux disease without esophagitis] Onset: 06-04-2002-07-2020 Chronic Essential hypertension (20 sources) Essential hypertension; Translations: [Unspecified essential hypertension] Onset: 06-04-2002-07-2020 Chronic Genitourinary symptoms and ill-defined conditions (1 source) Dysuria; Translations: [Dysuria] Onset: 10-30-20 Episodic Headache; including migraine (18 sources) Migraine without aura, not refractory ; Translations: [Migraine without aura, not intractable, without status migrainosus] Onset: 01-15-20 Chronic Heart valve disorders (11 sources) Mitral valve regurgitation; Translations: [Mitral valve disorders] Onset: 10-09-2010-11-2024 Chronic Comment on above: mild by echocardiogr am 2017; Inflammation; infection of eye (except that caused by tuberculosis or sexually transmitteddisease) (11 sources) Keratoconjunctivitis sicca; Translations: [Keratoconjunctivitis sicca, not specified as Sjogren's, bilateral] Onset: 11-10-2011-10-2023 Chronic Malaise and fatigue (20 sources) Fatigue; Translations: [Other fatigue] Onset: 05-12-20 Resolved : 04-27-2004-28-2019 Episodic Menopausal disorders (20 sources) Atrophic vaginitis; Translations: [Atrophy of vagina] Onset: 03-05-20 Resolved : 04-27-2004-28-2019 Chronic Miscellaneous mental health disorders (1 source) Insomnia; Translations: [Other insomnia not due to a substance or known physiological condition] Onset: 09-26-20 Chronic Mood disorders (20 sources) Depression; Translations: [Depressive disorder] Onset: 06-04-20 23 08-17-2017 Chronic Mycoses (7 sources) Candidal vulvovaginitis; Translations: [Acute candidiasis of vulva and vagina] Onset: 05-26-20 Episodic Neoplasms of unspecified nature or uncertain behavior (12 sources) Neoplasm of uncertain behavior of right breast; Translations: [Neoplasm of uncertain behavior of skin] 01-09-2021 Episodic Nonmalignant breast conditions (20 sources) Fibrocystic disease of breast; Translations: [Diffuse cystic mastopathy of right breast] Onset: 01-28-20 Resolved : 04-27-20 19 10-08-2019 Chronic Nonspecific chest pain (3 sources) Chest pain; Translations: [Chest pain, unspecified] Episodic Nutritional deficiencies (20 sources) Vitamin D deficiency; Translations: [Vitamin D deficiency, unspecified] Onset: 12-17-1902-07-2020 Chronic Osteoarthritis (20 sources) Degenerative joint disease involving multiple joints; Translations: [Secondary multiple arthritis] Onset: 04-09-20 21 04-09-2021 Chronic Osteoporosis (20 sources) Osteoporosis; Translations: [Postmenopausal osteoporosis] Onset: 04-09-20 21 02-07-2020 Chronic Other aftercare (2 sources) Postoperative visit; Translations: [Encounter for other specified surgical aftercare] 11-17-2024 Episodic Other and unspecified benign neoplasm (11 sources) History of polyp of colon; Translations: [Personal history of colonic polyps] Onset: 04-14-20 Episodic Other and unspecified benign neoplasm (1 source) Polyp of colon; Translations: [Polyp of colon] Onset: 11-12-20 24 Episodic Other connective tissue disease (2 sources) Pain in right foot; Translations: [Pain in right foot] 11-18-2024 Episodic Other connective tissue disease (2 sources) Pain in left foot; Translations: [Pain in left foot] 11-18-2024 Episodic Other ear and sense organ disorders (11 sources) Sensorineural hearing loss, bilateral; Translations: [Sensorineural hearing loss, bilateral] Onset: 06-04-2006-04-2023 Chronic Other ear and sense organ disorders (11 sources) Bilateral hearing loss; Translations: [Sensorineural hearing loss, unilateral, left ear, with restricted hearing on the contralateral side] Onset: 06-04-2006-04-2023 Chronic Other ear and sense organ disorders (1 source) Impacted cerumen of bilateral ears; Translations: [Impacted cerumen, bilateral] Onset: 08-19-20 Episodic Other ear and sense organ disorders (1 source) Impacted cerumen 08-19-2023 Episodic Other female genital disorders (1 source) Abnormal uterine bleeding; Translations: [Abnormal uterine and vaginal bleeding, unspecified] Onset: 10-30-20 Chronic Other female genital disorders (17 sources) Vaginal bleeding 10-30-2023 Chronic Other female genital disorders (11 sources) Abnormal vaginal bleeding; Translations: [Abnormal uterine and vaginal bleeding, unspecified] Onset: 06-04-2006-04-2023 Chronic Other female genital disorders (1 source) Lesion of endometrium; Translations: [Other specified conditions associated with female genital organs and menstrual cycle] 08-25-2024 Episodic Other gastrointestinal disorders (1 source) Hyperplastic polyp of intestine 11-12-2024 Episodic Other injuries and conditions due to external causes (10 sources) Injury of coccyx 08-10-2021 Episodic Other lower respiratory disease (11 sources) Cough; Translations: [Cough, unspecified] Onset: 08-19-20 Episodic Other lower respiratory disease (1 source) Chronic cough; Translations: [Chronic cough] Onset: 01-15-20 Episodic Other lower respiratory disease (5 sources) Persistent cough 01-15-2024 Episodic Other nervous system disorders (1 source) Anesthesia of skin; Translations: [Anesthesia of skin] Onset: 01-15-20 Episodic Other nervous system disorders (16 sources) Numbness of hand 01-15-2024 Episodic Other non-traumatic joint disorders (1 source) Pain of left shoulder joint; Translations: [Pain in left shoulder] Onset: 02-06-20 Episodic Other screening for suspected conditions (not mental disorders or infectious disease) (12 sources) Endometrium thickened; Translations: [Abnormal findings on diagnostic imaging of other specified body structures] Onset: 06-04-2006-04-2023 Chronic Other screening for suspected conditions (not mental disorders or infectious disease) (19 sources) Thallium stress test abnormal; Translations: [Other nonspecific abnormal results of function study of cardiovascular system] Onset: 04-01-20 Resolved : 04-27-20 19 04-28-2019 Episodic Other skin disorders (1 source) Non-scarring alopecia; Translations: [Nonscarring hair loss, unspecified] Onset: 09-12-20 Episodic Other upper respiratory disease (20 sources) Allergic rhinitis; Translations: [Allergic rhinitis, unspecified] Onset: 06-04-2010-23-2020 Chronic Other upper respiratory disease (1 source) Disorder of the nose; Translations: [Abscess, furuncle and carbuncle of nose] Onset: 10-30-20 Episodic Other upper respiratory disease (17 sources) Ulcer of nasal septum 10-30-2023 Episodic Other upper respiratory infections (20 sources) Chronic sinusitis; Translations: [Sinusitis] Onset: 06-04-2002-19-2021 Chronic Otitis media and related conditions (9 sources) Otitis media; Translations: [Otitis media, unspecified, left ear] Onset: 05-12-20 Episodic Pneumonia (except that caused by tuberculosis or sexually transmitted disease) (14 sources) Pneumonia; Translations: [Pneumonia, unspecified organism] Onset: 05-06-20 Episodic Residual codes; unclassified (10 sources) Sleep disorder 08-17-2017 Episodic Residual codes; unclassified (1 source) Patient encounter status; Translations: [Other specified health status] Onset: 09-26-20 Episodic Residual codes; unclassified (19 sources) Insomnia 09-26-2023 Episodic Residual codes; unclassified (1 source) Amnesia; Translations: [Other amnesia] Onset: 01-15-20 Episodic Residual codes; unclassified (16 sources) Poor short-term memory 01-15-2024 Episodic Residual codes; unclassified (2 sources) Other general symptoms and signs; Translations: [Clinical finding (finding)] Onset: 04-14-20 Episodic Residual codes; unclassified (2 sources) Never smoked tobacco; Translations: [Other specified health status] Onset: 10-11-2010-11-2024 Episodic Residual codes; unclassified (2 sources) Body mass index (BMI) 23.0-23.9, adult; Translations: [Body mass index (BMI) 23.0-23.9, adult] Onset: 10-11-20 Episodic Residual codes; unclassified (2 sources) Other specified health status; Translations: [Other specified health status] Onset: 10-11-20 Episodic Residual codes; unclassified (1 source) Family history of malignant neoplasm of digestive organ; Translations: [Family history of malignant neoplasm of digestive organs] Onset: 11-12-20 Episodic Residual codes; unclassified (1 source) Family history of cancer of colon 11-12-2024 Episodic Skin and subcutaneous tissue infections (5 sources) Impetigo; Translations: [Impetigo, unspecified] Onset: 07-09-20 Episodic Spondylosis; intervertebral disc disorders; other back problems (13 sources) Degeneration of cervical intervertebral disc; Translations: [Other cervical disc degeneration, unspecified cervical region] Onset: 02-06-20 Chronic Thyroid disorders (20 sources) Hypothyroidism; Translations: [Unspecified acquired hypothyroidism] Onset: 06-04-2002-07-2020 Chronic Unclassified (2 sources) Encounter for screening for cardiovascular disorders / Z13.6(ICD-9) Onset: 09-08-20 Unclassified (20 sources) Patient encounter status Resolved : 04-27-2004-28-2019 Unclassified (3 sources) Body mass index 20-24 - normal 01-17-2023 Unclassified (12 sources) Pain of left shoulder region 02-06-2024 Unclassified (8 sources) Varicose vein of calf 05-12-2024 Varicose veins of lower extremity (1 source) Varicose veins of lower extremity; Translations: [Asymptomatic varicose veins of unspecified lower extremity] Onset: 05-12-20 Episodic Viral infection (18 sources) Viral disease; Translations: [Viral infection, unspecified] Onset: 06-04-20 Episodic Past or Other Problems Problem Classification [...] 10-08-2019 Episodic Diseases of mouth; excluding dental (12 sources) Xerostomia; Translations: [Dry mouth, unspecified] Onset: 04-09-2021 04-09-2021 Episodic E Codes: Fall (11 sources) Fall; Translations: [Unspecified fall, initial encounter] Onset: 06-04-2023 06-04-2023 Episodic Fluid and electrolyte disorders (20 sources) Hypokalemia; Translations: [Hypokalemia] Onset: 06-04-2023 04-27-2019 Episodic Immunizations and screening for infectious disease (20 sources) Encounter for screening for human papillomavirus (HPV); Translations: [Anti-nuclear factor positive] Onset: 04-09-2021 04-09-2021 Episodic Inflammation; infection of eye (except that caused by tuberculosis or sexually transmitteddisease) (20 sources) Allergic conjunctivitis; Translations: [Blepharitis of upper and lower eyelids of bilateral eyes] Onset: 11-10-2023 10-23-2020 Episodic Nonmalignant breast conditions (20 sources) Lump of upper outer quadrant of breast; Translations: [Mastodynia] Onset: 12-06-2022 01-17-2023 Episodic Nutritional deficiencies (20 sources) Cobalamin deficiency; Translations: [Vitamin B deficiency] Onset: 06-04-2023 07-19-2019 Episodic Other connective tissue disease (10 sources) Foot pain Resolved: 04-27-2019 04-28-2019 Episodic Other connective tissue disease (13 sources) Pain of bilateral hands; Translations: [Pain in right hand] Onset: 04-09-2021 04-09-2021 Episodic Other endocrine disorders (20 sources) Disorder of endocrine system; Translations: [Endocrine disorder, unspecified] Onset: 06-04-2023 02-07-2020 Episodic Other eye disorders (10 sources) Dry eyes Resolved: 04-27-2019 10-08-2019 Episodic Other eye disorders (12 sources) Tear film insufficiency; Translations: [Dry eye syndrome of bilateral lacrimal glands] Onset: 04-09-2021 04-09-2021 Episodic Other hematologic conditions (12 sources) ESR raised; Translations: [Elevated erythrocyte sedimentation rate] Onset: 04-09-2021 04-09-2021 Episodic Other nervous system disorders (20 sources) Paresthesia of hand ; Translations: [Anesthesia of skin] Onset: 04-09-2021 10-23-2020 Episodic Other nervous system disorders (12 sources) Paresthesia of foot ; Translations: [Anesthesia of skin] Onset: 04-09-2021 04-09-2021 Episodic Other non-traumatic joint disorders (20 sources) Joint pain; Translations: [Pain in unspecified joint] Onset: 06-04-2023 11-09-2020 Episodic Other skin disorders (19 sources) Loss of hair; Translations: [Nonscarring hair loss, unspecified] Onset: 06-04-2023 09-12-2022 Episodic Other upper respiratory disease (10 sources) Seasonal allergy Resolved: 04-27-2019 04-28-2019 Chronic Other upper respiratory infections (20 sources) Acute upper respiratory infection; Translations: [Acute upper respiratory infection, unspecified] Onset: 09-17-2022 Episodic Residual codes; unclassified (20 sources) Body mass index 20-24 - normal; [...] Test Name Value Interpretation Reference Range [facility] General Surgery Office/Clini c Noteon 12-13-2024 General Surgery Office/Clinic Note General Surgery Office/Clinic Note Chief Complaint Family history of colon cancer, personal history of hyperplastic polyp HPI Staff Kermit is a 74 y.o. female here for surveillance colonoscopy Last colonoscopy done 05/2020-hyperplastic polyp Family history of colon cancer- Brother of colon cancer in 70s Denies rectal pain/abdominal pain/rectal bleeding/black stools/constipation History of Present Illness 74-year-old female with history of hyperplastic polyp measuring 5 mm found in the descending colon during colonoscopy performed by [facility] in 2019 is referred back to us for surveillance colonoscopy. Patient does have a family history of colon cancer through her brother and her son was recently diagnosed with a colon mass which required resection for bleeding. The surgeries performed in [place]. The patient herself denies melena hematochezia change in bowel habits heart attack stroke or blood thinner use Review of Systems PHQ Score Initial Depression Screen Score: 1 SCORE Physical Exam Vitals & Measurements HR: 59(Peripheral) BP: 181/82 HT: 61 in HT: 154 cm No acute distress regular rhythm abdomen soft nontender nondistended Assessment/Plan 1. 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 Hyperplastic polyp of descending colon (K63.5: Polyp of colon) See above Ordered: E&M of New Patient Moderate 45-59 Min 35341 Hospital-based Procedure Pre-Surgery Testing per Anesthesia Portions of this record may have been created with voice recognition artificial intelligence software, specifically Tinselvision, Everplans and or Cell[employer]. Substitutions may have occurred due to the inherent limitations of voice recognition and artificial intelligence software. Follow-up No qualifying data available Problem List/Past Medical History Ongoing Atypical migraine Benign essential hypertension Bulging of cervical intervertebral disc Cervical radiculitis Chronic sinusitis with recurrent bronchitis Family history of colon cancer Fatigue Hand numbness Izzy's thyroiditis Hernia, ventral Hx of colonic polyp Hyperlipidemia, mild Hyperplastic polyp of descending colon Hypothyroidism Impetigo Left shoulder pain Mild CAD Mild recurrent major depression Nasal septal ulcer Occipital neuralgia Osteoporosis Otitis media of left ear Personal history of breast cancer Pneumonia involving right lung Positive YOSELIN (antinuclear antibody) Post-nasal drip Postmenopause atrophic vaginitis Short-term memory loss Situational insomnia Vaginal candidosis Varicose veins of calf Vertigo Viral illness Vitamin D deficiency Wellness examination Historical Anxiety B12 deficiency 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 Medications [place] Thyroid 30 mg Tab, 30 mg= 1 tab(s), Oral, Daily, 3 refills Diflucan 150 mg Tab, 150 mg= 1 tab(s), Oral, Once, 1 refills Elderberry Gummies with Vitamin C and Zinc, 1 tablet, Chewed, Daily Garlic, See Instructions H-HTP 100 mg, See Instructions iodine ivermectin, 12 mg, Oral, Once magnesium amino acids chelate metoprolol 50 mg ER Tab, 50 mg= 1 tab(s), Oral, Daily mupirocin Top 2% Oint, 1 christiano, Topical, BID Diabetic NAC Detox Regulators, Oral, Daily Nitric Oxide Foundation, 2 tab(s), Oral, Daily Serrapeptase 40,000 SPU, Oral, Daily sertraline 50 mg Tab, 50 mg= 1 tab(s), Oral, Daily spacer, See Instructions, 1 refills valsartan 160 mg Tab Ventolin HFA 90 mcg/inh Aerosol-Adpt, 2 puff(s), Inhalation, QID, PRN, 1 refills Vitamin C 500 mg oral tablet, chewable, 500 mg= 1 tab(s), Chewed, Daily Vitamin K2 zinc acetate 50 mg oral capsule, 50 mg= 1 cap(s), Oral, Daily Allergies Citalopram Hydrobromide (Unknown) propranolol (hives) diclofenac sodium (BP rises) CeleXA (Unknown) Voltaren Topical (Hypertension) doxycycline (Yeast infection) hydroCHLOROthiazide (Electrolyte disturbance) lisinopril (Unknown) Social History Alcohol - Low Risk, 06/01/2019 Current. Wine, Liquor. 1-2 times per week., 10/15/2024 Exercise - Does not exercise, 02/07/2020 Substance Abuse - Denies Substance Abuse, 06/01/2019 Household substa (more content not included)... Normal [facility] Comment on above: Result Comment: Elec tronically Signed By: Marlo RAY, Singh Hilliard\Date and Time Signed: 11/12/24 11:07 EST ALL CBC WITH AUTO DIFFon BASOPHILS ABSOLUTE AUTO 0 [facility] Basophils/100 WBC (Bld) 0.6 % 0.2 - 2.0 % [facility] Eosinophils/100 WBC (Bld) 1.7 % 0.9 - 7.0 % [facility] Erythrocyte distribution width (RBC) [Ratio] 12.9 % 11.0 - 15.0 % [facility] Hematocrit (Bld) [Volume fraction] 40.6 % 36.0 - 48.0 % [facility] Hemoglobin (Bld) [Mass/Vol] 13.5 g/dL 12.0 - 16.0 g/dL [facility] IMMATURE GRANULOCYTES ABS AUTO 0.01 [facility] Immature granulocytes/100 WBC (Bld) 0.3 % 0.0 - 0.5 % [facility] Interpretation and review of laboratory results Abnormal [facility] LYMPHOC[facility]TES ABSOLUTE AUTO 1.2 [facility] Lymphocytes/100 WBC (Bld) 35.5 % 20.5 - 60.0 % [facility] MCH (RBC) [Entitic mass] 30.8 pg 26.7 - 34.0 pg [facility] MCHC (RBC) [Mass/Vol] 33.3 g/dL 29.9 - 35.2 g/dL [facility] MCV (RBC) [Entitic vol] 92.7 fL 81.0 - 99.0 fL [facility] MONOCYTES ABSOLUTE AUTO 0.4 [facility] Monocytes/100 WBC (Bld) 11.6 % 1.7 - 12.0 % [facility] NEUTROPHILS ABSOLUTE AUTO 1.7 [facility] Neutrophils/100 WBC (Bld) 50.3 % 43.0 - 75.0 % [facility] Platelet mean volume (Bld) [Entitic vol] 10.7 fL 9.5 - 13.5 fL [facility] EO # 0.1 [facility] PLT 176 [facility] RBC 4.38 [facility] WBC 3.5 Low [facility] 11-05-2024 L Specimen: [id number] Received: 11/05/24 Status: KARLO Melany Num: [id number] Spec Type: Surgical Subm Dr: Ryley Marinelli Tissues: A Endometrium - Curettings (ENDOMETRIAL CURETTINGS) Procedures: Tamara TAM/Megan Richardson Age/ Patient Sex Location Account Attending Physician Kermit Rosen 74/F LABELL [id number] Ryley Marinelli SPEC NUM: [id number] RECD: 11/05/24 STATUS: KARLO MELANY NUM: [id number] LAURA: 11/05/24 [facility] [address]: Ryley Marinelli ENTERED: 11/05/24 [facility] DR: Lore,Lab SPEC TYPE: Surgical DEPT: LANCE CRAWFORD ENTERED BY: [id number] RECV BY: [id number] ORDERED: HE/2, Gross/Micro L4 ORDERED: HE/2, Gross/Micro L4 Pathological Diagnosis Endometrial curettings: -Multiple small strips of endomyometrial tissue of at least inactive type endometrial lining containing occasional small cystic glands, otherwise without obvious hyperplasia, atypia, or other features of endometrial polyp identified -Focal adenomyosis are however noticed in at least 3?4 strips, otherwise also cannot completely exclude the possibility of the underlying polypoid submucosal leiomyoma and/or adenomyoma Clinical Information Thickened endometrium, endometrial mass Gross Description Part A is received in formalin labeled with the patients name, date of , and endometrial curettings is an aspiration device with ignacio-gibson to pink, delicate tissue fragments, 1.8 x 1.1 x 0.2 cm in aggregate. The specimen is filtered and entirely submitted in a single cassette. (1, ns, [id number]) MAURI Specimen: [id number] Received: 11/05/24 Status: KARLO Melany Num: [id number] Spec Type: Surgical Subm Dr: Ryley Marinelli Tissues: A Endometrium - Curettings (ENDOMETRIAL CURETTINGS) Procedures: HE/2, Gross/Micro L4 Patient: Kermit Rosen [id number] (Continued) Specimen: [id number] Received: 11/05/24 (Continued) Signed (signatur e on file) Anne Marie Cuenca MD 11/08/24 1349 Specimen: [id number] Received: 11/05/24 Status: KARLO Jerome Num: [id number] Spec Type: Surgical Subm Dr: Ryley Marinelli Tissues: A Endometrium - Curettings (ENDOMETRIAL CURETTINGS) Procedures: Tamara TAM/Megan L4 Patient: Kermit Rosen [id number] (Continued) Specimen: [id number] Received: 11/05/24 (Continued) Microscopic Description Microscopic examinations are performed supporting the above interpretation CPT Codes 02015 Specimen: [id number] Received: 11/05/24 Status: KARLO Jerome Num: [id number] Spec Type: Surgical Subm Dr: Ryley Marinelli Tissues: A Endometrium - Curettings (ENDOMETRIAL CURETTINGS) Procedures: HE/Tamara Stark/Megan L4 Patient: Kermit Rosen [id number] (Continued) Signed (signatur e on file) Amador-Sage Cuenca MD 11/08/24 1349 Normal [facility] ALL CBC WITH AUTO DIFFon BASOPHILS ABSOLUTE AUTO 0 [facility] Basophils/100 WBC (Bld) 0.5 % 0.2 - 2.0 % [facility] Eosinophils/100 WBC (Bld) 0.7 % Low 0.9 - 7.0 % [facility] Erythrocyte distribution width (RBC) [Ratio] 12.9 % 11.0 - 15.0 % [facility] Hematocrit (Bld) [Volume fraction] 38.9 % 36.0 - 48.0 % [facility] Hemoglobin (Bld) [Mass/Vol] 13.1 g/dL 12.0 - 16.0 g/dL [facility] IMMATURE GRANULOCYTES ABS AUTO 0.01 [facility] Immature granulocytes/100 WBC (Bld) 0.2 % 0.0 - 0.5 % [facility] Interpretation and review of laboratory results Abnormal [facility] LYMPHOCYTES ABSOLUTE AUTO 1.7 [facility] Lymphocytes/100 WBC (Bld) 30.4 % 20.5 - 60.0 % [facility] MCH (RBC) [Entitic mass] 30.5 pg 26.7 - 34.0 pg [facility] MCHC (RBC) [Mass/Vol] 33.7 g/dL 29.9 - 35.2 g/dL [facility] MCV (RBC) [Entitic vol] 90.5 fL 81.0 - 99.0 fL [facility] MONOCYTES ABSOLUTE AUTO 0.5 [facility] Monocytes/100 WBC (Bld) 8.7 % 1.7 - 12.0 % [facility] NEUTROPHILS ABSOLUTE AUTO 3.4 [facility] Neutrophils/100 WBC (Bld) 59.5 % 43.0 - 75.0 % [facility] Platelet mean volume (Bld) [Entitic vol] 10.6 fL 9.5 - 13.5 fL [facility] TBH EO # 0 [facility] TB PLT 249 [facility] RBC 4.3 [facility] TB WBC 5.7 [facility] Ambulatory Visit Summaryon 1 12-15-2023 Ambulatory [...] predniSONE (predniSONE 10 mg Tab) thyroid desiccated ([place] Thyroid 30 mg Tab) Contact prescribing physician [...] 1:40 PM EST With: Vilma John Where: [facility] [address] [place] [address]- Friday 2:30 PM EDT With: Where: [facility] [address] [place] [address]- You Need to Schedule the Following Appointments Follow Up with Vilma John, [facility] When: In 2 weeks Comments: lung follow up Where: [address] [facility] [address] [place] [address]- Medications What How Much When Why Instructions New amoxicillin-clavula carmen (Augmentin 875 mg-125 mg Tab) 1 Tablets By Mouth Every 12 hours Duration: [address] [facility] [address] New azithromycin (Zithromax Z-Dionicio 250 mg oral tablet) 1 Packets By Mouth As Directed Pneumonia involving right lung Chronic sinusitis with recurrent bronchitis Duration: 5 Days as directed on package labeling Pickup at [facility] 1985 New benzonatate (benzonatate 100 mg Cap) 1 Capsules By Mouth 3 times a day Pneumonia involving right lung Duration: [address] [facility] 1985 New fluconazole (Diflucan 150 mg Tab) 1 Tablets By Mouth Once Yeast infection of the vagina Refills: [address] [facility] 1985 New predniSONE (predniSONE 10 mg Tab) See instructions Bronchitis, not specified as acute or chronic Pneumonia involving right lung - Oral As Directed 4 tabs x 2 days, 3 tabs 2 days, 2 tabs x 2 days then 1 tab x 2 days with food Pickup at [facility] 1985 Unchanged albuterol (Ventolin HFA 90 mcg/ inh Aerosol-Adpt) 2 Puffs Inhalation 4 times a day as needed for for wheezing Viral bronchitis Pickup at [facility] 1985 Unchanged thyroid desiccated ([place] Thyroid 30 mg Tab) 1 Tablets By Mouth Every day Izzy's thyroiditis Hypothyroidism Duration: 90 Days no Generic substitutions please - Pickup at [facility] 1985 Unchanged ascorbic acid (Vitamin C 500 [...] BMI 23.0 (more content not included)... Normal [facility] Family Medicine Office/Clini c Noteon 10-15-2024 [...] office today Ordered: Influenza Type A&B POC 24091 Rapid COVID POC 76041 2. Fatigue (R53.83: Other fatigue) Patient did have a fever. Encouraged mlbx-ill-hyfntax medication electrolyte fluid replacement and fever control with Tylenol Motrin at home Ordered: Influenza Type A&B POC 69475 Rapid COVID POC 42635 3. Weak (R53.1: Weakness) Ordered: Influenza Type A&B POC 31974 Rapid COVID POC 13839 4. Pneumonia involving right lung (J18.9: Pneumonia, [...] day(s), # 6 tab(s), Refills(s) 0, Pharmacy: [facility] 1985, 154, cm, 10/15/24 10:15:00 EST, Height/Length Dosing, 55.6, kg, 10/15/24 10:15:00 EST, Weight Dosing benzonatate, 100 mg = 1 cap(s), Oral, TID, X 10 day(s), # 30 cap(s), Refills(s) 0, Pharmacy: [facility] 1985, 154, cm, 10/15/24 10:15:00 EST, Height/Length Dosing, 55.6, kg, 10/15/24 10:15:00 EST, Weight Dosing predniSONE, See Instructions, - Oral As Directed 4 tabs x 2 days, 3 tabs 2 days, 2 tabs x 2 days then 1 tab x 2 days with food, # 16 tab(s), Refills(s) 0, Pharmacy: [facility] 1985, 154, cm, 10/15/24 10:15:00 EST, Height/Length Dosing, 55.6, kg, 10/15/24... 5. Chronic sinusitis with recurrent bronchitis (J32.9: Chronic sinusitis, unspecified) Encouraged nasal saline rinsing recurrent and as needed albuterol Ordered: azithromycin, = 1 packet(s), Oral, As Directed, as directed on package labeling, X 5 day(s), # 6 tab(s), Refills(s) 0, Pharmacy: [facility], 154, cm, 10/15/24 10:15:00 EST, Height/Length Dosing, 55.6, kg, 10/15/24 10:15:00 EST, Weight Dosing 6. 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E06.3: Autoimmune thyroiditis) Refill of [place] Thyroid sent to the pharmacy today Ordered: thyroid desiccated, 30 mg = 1 tab(s), Oral, Daily, no Generic substitutions please -, X 90 day(s), # 90 tab(s), Refills(s) 3, Pharmacy: [facility] 1985, 154, cm, 10/15/24 10:15:00 EST, Height/Length Dosing, 55.6, kg, 10/15/24 10:15:00 EST, Weight Dosing Bronchitis, not specified as acu (more content not included)... Normal [facility] Comment on above: Result Comment: Elec tronically Signed By: Esvin AVILES, Vilma Rivera\.br\Date and Time Signed: 10/15/24 11:08 EST Provider Letteron 10-15-2024 Provider Letter Provider Letter October 15, [address] [place] [address] : 1950 To Whom It May Concern, Please excuse above patient from work. Date of Illness: From: 2023 To: 2023 May Return to Work On: 2023 if fever free for 24hrs and symptoms manageable. Comments: Please the office if there are any questions. Thank You. Sincerely, [facility] [address] [place] [address], [place] [address] Normal [facility] ALL BASIC METABOLIC PANELon 09-10-2024 Anion gap [Moles/Vol] 12.7 mmol/L [facility] Calcium [Mass/Vol] 9.2 mg/dL 8.5 - 10.1 mg/dL [facility] Chloride [Moles/Vol] 103 mmol/L 98 - 107 mmol/L [facility] CO2 [Moles/Vol] 25.0 mmol/L 21.0 - 32.0 mmol/L [facility] Creatinine [Mass/Vol] 0.87 mg/dL 0.55 - 1.02 mg/dL [facility] GFR/1.73 sq M.predicted CKD-EPI (S/P/Bld) [Vol rate/Area] >60 >=60 mL/min/1.73m 2 [facility] Glucose [Mass/Vol] 141 mg/dL High 74 - 106 mg/dL [facility] Interpretation and review of laboratory results Abnormal [facility] Potassium [Moles/Vol] 3.7 mmol/L 3.5 - 5.1 mmol/L [facility] Sodium [Moles/Vol] 137 mmol/L 136 - 145 mmol/L [facility] EGFR-NON AF NAURUAN >60 >=60 mL/min/1.73m 2 [facility] Urea nitrogen [Mass/Vol] 23.0 mg/dL High 7.0 - 18.0 mg/dL [facility] Urea nitrogen/Creatinine [Mass ratio] 26.4 mg/mg [facility] Ambulatory Visit Summaryon 0 07-09-2024 Ambulatory Visit [...] with Vitamin C and Zinc) thyroid desiccated ([place] Thyroid 30 mg Tab) valsartan (valsartan 160 [...] EDT With: Esvin AVILES, Vilma Rivera Where: [facility] [address], [facility] [place] [address]- Friday 2:30 PM EDT With: Where: [facility] [address], [facility] [place] [address]- Medications What How Much When Why Instructions New mupirocin topical (mupirocin Top 2% Oint) 1 Application Topical 2 times a day Diabetic Impetigo Pickup at [facility] Unchanged albuterol (Ventolin HFA 90 [...] breakdown unwanted (more content not included)... Normal [facility] Family Medicine Office/Clini c Noteon 07-09-2024 [...] is correct. -Additional information provided if needed. [place] Hot, dry cough, sore throat, yellow crap [...] slowly improving Ordered: Influenza Type A&B POC 27420 Rapid COVID POC 34487 2. Mild recurrent major depression (F33.0: Major [...] Topical, BID Diabetic, 30 gram, Refill(s) 0, [facility], 154, cm, 07/09/24 9:47:00 [...] with voice recognition artificial intelligence software, specifically Tinselvision, Everplans and or Cellcrypt. Substitutions may have occurred due to the [...] right breast (more content not included)... Normal [facility] Comment [...] a month after discontinuation. She discussed the Service Seeking program and is currently participating and listening [...] female evaluated (more content not included)... Normal [facility] Comment on above: Result Comment: Elec tronically Signed By: Vilma John.br\Date and Time Signed: 05/27/24 09:49 EDT\.br\Electronically Co-Signed [...] of clutter to prevent tripping and/or falling. [place] Advance Directives reviewed. Documents remain at home [...] 5. Hypothyroidism (E03.9: Hypothyroidism, unspecified) Continues taking [place] Thyroid daily as ordered. Voices no sensitivity to cold, extreme hair loss or increased daytime fatigue. Labs and medications followed up with PCP as needed 6. 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 Normal [facility] Comment [...] Vilma John This Is Your Medications List [facility] Prescription (spacer) Non-Formulary Medication (NAC Detox Regulators) [...] sertraline (sertraline 50 mg Tab) thyroid desiccated ([place] Thyroid 30 mg Tab) valsartan (valsartan 160 [...] 10:00 AM EDT With: Vilma John Where: [facility] Normal [address], [place] [address]- \.br\ Medications\.br\ What How Much When Why [...] By Mouth Every day\.br\ Unchanged thyroid desiccated ([place] Thyroid 30 mg Tab) 1 Tablets By [...] flaxseeds, walnuts, almonds, and seeds.\.br\ ? \.br\ [place]-3 fats. These are found in foods such [...] oil, palm kernel oil, and coconut oil.\.br\ [facility] Ambulatory Visit Summary KERMIT ROSEN :1950 [...] with Vitamin C and Zinc) thyroid desiccated ([place] Thyroid 30 mg Tab) valsartan (valsartan 160 [...] Follow-Up Appointments Friday 2:30 PM EDT Where: [facility] Normal [facility] Patient Educationon 05-26-20 24 Patient Education [...] Keep all follow-up visits. Medicines ? Take utvk-dqs-ganbsai and prescription medicines only as told by [...] For m (more content not included)... Normal [facility] Patient Education Dyslipidemia Dyslipidemia is an [...] to bec (more content not included)... Normal [facility] YOSELIN Individual Abson 024 Centromere protein B Ab Qn (S) <0.2 Invalid Interpretation Code 0.0-0.9 [facility] Comment on above: Performed By: #### 2 [id number] #### [facility] [address] [place] [address] Chromatin Ab Qn <0.2 Invalid Interpretation Code 0.0-0.9 [facility] Comment on above: Performed By: #### 2 [id number] #### [facility] [address] [place] [address] DNA double strand Ab Qn (S) [IU]/mL Invalid Interpretation Code 0-9 [facility] Comment on above: Result Comment: Nega tive <5 Equivocal 5 - 9 Positive >9 Performed By: #### 2 [id number] #### [facility] [address] [place] [address] Loretta-1 extractable nuclear Ab Qn (S) <0.2 Invalid Interpretation Code 0.0-0.9 [facility] Comment on above: Performed By: #### 2 [id number] #### [facility] [address] [place] [address] Ribonucleoprotein extractable nuclear Ab Qn (S) 1.1 AI High 0.0-0.9 [facility] Comment on above: Performed By: #### 2 [id number] #### [facility] [address] [place] [address] SCL-70 extractable nuclear Ab Qn (S) <0.2 Invalid Interpretation Code 0.0-0.9 [facility] Comment on above: Performed By: #### 2 [id number] #### [facility] [place] [address] See below: Comment Invalid Interpretation Code [facility] Comment on above: Result Comment: Auto [...] Sm (anti-Willis) SLE 15 - 30% --------- 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 Mixed Connective Tissue Disease 95% (U1 nRNP, SLE 30 - 50% anti-ribonucleoprotein) Polymyositis and/or Dermatomyositis 20% --------- Scl-70 (antiDNA Scleroderma (diffuse) 20 - 35% topoisomerase) Crest 13% --------- Loretta-1 Polymyositis and/or Dermatomyositis 20 - 40% --------- Centromere B Scleroderma - Crest variant 80% Performed at: [facility] [id number] [place], [place] [id number] PhD Ramila Ackerman Performed By: #### 2 [id number] #### [facility] [address] [place] [address] Sjogrens syndrome-A extractable nuclear Ab Qn (S) <0.2 Invalid Interpretation Code 0.0-0.9 [facility] Comment on above: Performed By: #### 2 [id number] #### [facility] [address] [place] [address] Sjogrens syndrome-B extractable nuclear Ab Qn (S) <0.2 Invalid Interpretation Code 0.0-0.9 [facility] Comment on above: Performed By: #### 2 [id number] #### [facility] [address] [place] [address] Willis extractable nuclear Ab Qn (S) <0.2 Invalid Interpretation Code 0.0-0.9 [facility] Comment on above: Performed By: #### 2 [id number] #### [facility] [address] [place] [address] YOSELIN w/Reflex if POSon 2023 Nuclear Ab Ql (S) Positive Abnormal Negative [facility] Comment on above: Result Comment: Perf ormed at: [address] [id number] PhD Ramila Ackerman Performed By: #### 1 [id number] #### [facility] [address] [place] [address] CH50on 05-20-2024 Complement total hemolytic CH50 Qn >60 Invalid Interpretation Code >41 [facility] Comment on above: Result Comment: Age [...] determine out of range values. Performed at: [facility] [id number] PhD Ramila Ackerman Performed By: #### 1 [id number] #### [facility] [address] [place] [address] Coding Summary.on 05-20-2024 Coding Summary. TNAOJdwz79LCf8iHd+P GhlYWQ+EO8UGGXzN32h eVGhiX2rP1KUCRkOPxo gQVBQTElOSyIgbmFtZT 1kaXNjZXJu IC8+TR4cAOLbWulpjSO fo8D1iDJ9S79oyt5oCI bksJG3VBMrFwAkyhhyn 6nnsNi9BBdbCvzeExZe GHAywH52KMJ5qW61Wq2 3kLTgtBEvy6dnnOn9Af QvIEUhVVO6uVowDQxfc 1VhRIPqU83gpBAmf8B7 IGNvbGxhcHNlOyBlbXB 2nA9tWPzswakdt3gaox ipGhk7ox78mXPqh4U3j UJ1X1QalfQ4DIAljAFg PmaypEMSiX7qnzprt3q moxdlGrZdSIYcIEj9GT v6WHVojRpmLqNxBO19B WT8NZHwpbIgO6AwZFPi jGhpZkB3p5L0Ha2IP1G YYfgoD0CIDBPGLUntwC Q+DG54ys68L9DxBzvpE hs8WXXwUPB9eAJ7lX8h IEJhPJixl2Q8zUS2R3F ahcMreu0wd8xjIIKwWP waA61vyMYvs8R6GOFwa WQ9VYQipCdySrPdqJ05 Oyc+BGAagNbbj7MoLra pe8uft6vjdIf1IvviPS NytiYpaRomCAJ4x9ElM o2oDGEtnCO6iDN1rK5r VwPpGtY8RDgjB430MyC utYVrAuviY09eH9SwfN A+GZBpQgy8IFRsuDbhQ S4pN3DqAXXzuwljaJXu sFcwQK5vWVAzylneVKY juI6bWNJoT8l9LbUyBt Y5CMtfF2WbRFZpxfdpJ c22jF9dOhIdJfX5QWkx B1BmfiM3ERRraGBhGBv lZTN8Y00ar3S1JFBiAG XoBPB8jXB7qK7jwTvoq jogbGVmdDsgdmVydGlj TKxsVFhtA382LODvySp nPkNvZGluZyBEYXRlOi AgMDYvMjAvMjAyNDwvd GQ+GIOhLSE8mZacYESk vUTuIOvcCr1ngAclzJs xGG3aMGHvndhmUBVwbR 1eQSNaaQVqiIauKV7iH FCkhjonu349ZeIwDSQ6 XPKvuGJwE5IjzG1pPdN fGJPqGCOiP2JpzRDeBM nuT368GDscLxM6FZVqh nFyO7MpPVIbeHvvKxZ9 v9F1Eq1Mx6GdizwoW2E ssIXzMzXwOfpdVOw8E8 RkPjwvdHI+UD50WIPcW Z83FUx3LXB3wUgmEPvl XHFkX7FyzS0iZoEhQCH kZGRkOyc+PHRhYmxlIH dpZHRoPScxMDAlJyBzd VtpNW5lYv3lEADmYNJb wGfhvQQnErWnm7glKFP fCEawGY0nrRrjC0GmvE B0JJDaj8l7Ie70T54uD 3JvdXA+AIQvpAE2eVU0 dF1xXsGpFwF3KItyO91 2VxQalYRtOdadc5jwl4 kmcUu3HbJ9UMPdjaJbp XfxWEV9b6ExXe54P05p IHdpZHRoPSIxNSUiIHZ qeNnvfw8dfV1qAb3+PG PrdLI8tVI2vM1bNvFuT yB5HZnbB906ToVowUGr Wodlc2lgr1gijWx6RgH eSSMwafCzvBpxXXM3t2 WuUc28P1IlaXdae7WxV bg8yd83zWLyn1E8rLB6 P3AxNEFlilpsdPWysOj aEK4dDXPwkugcGYTeqJ 4zTRKeH2b8SgJxCmW8J BadU0SyaaQ7VDIviRNg VOJgeVKBeL6uojcfy9d odtwrJeXtUUVqIVg8CL w7WXIwbXwdZeCvSUE9J vL5HJO6pQNtfH0syEhr dlqbjW4zIvc+HZP6gOU btTZTGM3nDpfoqGV+PH XeACL6hGvuPYfeWROni U2pNSYdD5h8HrEyXwC2 GUpnE6BcupB6ZGUvaXW kQLLkeCCWaB0qxbqcn2 znzssuIbVfBXVpUJm3C Zp6MWFfmAomQkCkVSF1 FlJ4GAY8wDGhiV4xdCi qisgseQ4gYpr+QmlydG soGAT6ALk1L7OjBvi5C OHdjBjhER1mmAIrUIaq Zq1dfGzssVxmKH5rBSQ zscgzo779ZnCii9okZL PfzDYxOBbiUYY3A38dc 1M6UZWzWRBcNNB9eVR6 xE4xmRltwesmiUTgvQv gdmVydGljYWwtYWxpZ2 56WSCvrEkmDcJrVSy1L 7WwNea5NFPapIgwQA1s vWTnXQhxPp6llEofaLp tEP8nFNCviufat781Fg Qoc9hxADQpfGCkVZhiY ZS4H90cs8H4CPWwVPKh JCY4fZN8eE0ozGijyib gbGVmdDsgdmVydGljYW ukFAnxW353OWGkxXamG hEcnIv8W2GvMxx9WCEy vBmjNY0tgMJkGOckKd3 gxKfzdQxrNO1wWGGlgi jpn474BnQjc3ftJGAor OEjVQmdCSA5X03ln8M7 ICYoKSSkISY4hVR5uR9 hbGlnbjogbGVmdDsgdm XxzMfnVGcoFVsyM263K HRvcDsnPlBhdGllbnQg VEfbZFh0T7UgSuzwcSX +OI15NVIzPZ07nHTxuQ Mtq5ntqYp7FmSwDEIyD XB9yUlpRCtjd8LwOSNi R74bjXEkr0L2GJOnzDm gzUXzGvLbaWU4fG0bLH uhivpth6outckcGowug 0jzna39wE11W60uZZfz ZHRoPSIzMCUiIHZhbGl yuh8pbS4wTw8+PGNvbC K2vOF9rA2mJIUhVaK4X NlkU795GoMzjRObZhbz r1vkb6ydsTv5AyS5RPJ wqaBaeFjsAIJ1w8NkKv 42I36gAIzdHMOjLDSsK UIxMWTtlDviji0exX7k Ii8+YTAsxYC8wUJ2eS6 tNlTsEdX2CBbnF271Kr TcdLVvFuchR68hO3Ggc XA+EFIgYau3DQIcrCxe QD8edFZtAWgwLp7oOOP 8NsLdYfDsBLeeN2HhNO RwmawzrzmfyPW2OZCcD BVdxM20Gz0jyLvaZHTx aWEUxI0lbltsq3mysei aWkCnNSQbYAn3XJa5FE EvdZoiKiIoMTX8IfT0M KN1yBDbjG2mwGsjzine fX1kB0TsVTOschutWk8 8dC4rZiOqGjQ5TSquOr c+QJCZFJlnA1ZPSnjLG FQgTTwvdGQ+PHRkIHN0 oZbkISklCYGcvG2yHIL gF5k1JuVtRhG0FEpiH6 HlEQWaccaeYd55lA2kO aOiWcC1GRgiA3NbawS6 YNZbbGJrVOqfJYZ3H24 nk2E1JZBzOMNlWTD4yX U1fA3pkSkmoglvtGYii DsgdmVydGljYWwtYWxp K190UICclVuxIzYpMzR gEqK1INN0I8KdWne2CZ JmnHinSH4ubYHqDLwoK h9ypRxseXhwFG6rIEGy dhqgYSLqzK7qSHEulPW yaRfkUJ8lMGVclsqwf2 87HfWrGWB9KSZllOBzV 9EevF2rUbGqCFVpQPTg C9OztEEuNPysL023OYf sMqN6ROLdhtUbJ1WpJE TwvYkvNeG0h8C3Nm25I CBZZWFyczwvdGQ+PHRk DMB1pFhqIJnoQZBdgK2 bPBZqF5y4QyIgBdR5OL ljH9EqEUXsfgzlGu07n Z1zOjLmPrY2TMhpI9Fs jjL8HNBiqYGrHPwaLHA 8L00il6T2SSHhIFHgRB Z8uXL9yX8ltLkrydyce GVmdDsgdmVydGljYWwt RVooA488RJLafEvbRxR lbWFsZTwvdGQ+PHRkIH N5sZiyWQusRZIpnN9rY XRrU5k4FnVuDvD5XPfz F8YqRQMgcinkIt52sU9 hHvJnHsM4NIxgM2Saxk Q8UGDhlLUcEMypGZR7O 87gk5B6ZMSpALEwPLK0 oTZ9wP0bpOhfzakmsLL mdDsgdmVydGljYWwtYW zlY360BCZdhMyiDc63s PAibPyndlL4I3AhPqns dHI+WF41ANUaYW79tIX rzROga3kedQo2KlTiBX BiDCN7gUfyNEjyb3IpN VDrF03blUYyy2Q2SUXs yBzqkJYaRdLneTA5gS2 oUGjxepfdn7slaedpMz rif0wrsd10fJ66S26aH HdpZHRoPSIzMCUiIHZh gWintf6ruS8yPn9+PGN qiFO0oYN5yM8kHaXiFc H0MSsxE517NeGoqOVwT lrkm8dsp4itwCn4WsHj VQNwyiUwzNpjXKW7i2O tWm67L23mTLkxGWTxQD HiDUSaVKDzkZgccf9cx G9wIi8+CI5bp7fnfc09 qS23rEO+LFFdZQB2nGq xAIxkTUAvoT0mLLeuEs J9AEAhLdCvlX46hJWoH ErsSr3tzSxrvIehND1c QKRrdyuol137VpVci0f rYPXuoRNpUJutIRF4P3 8sf4N2EJAzGMPfCEE9s ET0rC2orFrwdsabyZNz dDsgdmVydGljYWwtYWx vX082CDQtgUrzMlLwcH PdG1uanaFHBH7lAlhzh GQ+XZPgNAE6nDxvAQda SVHowP5jNESlM7g6PiL kBfC3PZwhY8QgnoX4ZD MmcVOaBOFbsHURcZ6wr gbuc3hxofymAlUiZEYh KEw8EFr5RFLcpLloYfC gEOB1TzM0IAB8rSClbD 0inKnzjmtcyD7aOua+R klOOjwvdGQ+PHRkIHN0 rQfvIKcoSYXafO1rAJC uH0t0RhLtQrR4CVeaE8 JtvxL2FHHgtKNxLSCha IZPsC6nfyuuo9blordq CdDrCTMeGJe5FLv0XJB xlMyeAvFbFGT3YpN6BP O0rZNivE0fqDgspbgxm G9wOyc+TVJOOjwvdGQ+ EVLnPLO5lJinZDwlWTI aqB9yNXKoC3p9WbFkMn S5IBtzO4RivmW2BIZzz OIgYKHrrJLUiW9ewxpu m9jpahccQeQvUGYiGMd 4LEz0IQGreEczAuReWJ X1EsQ2GOR3lCVcaF6lu CoxhfvymW6jYwr+UGF5 ZQK8LT95DG20Y0UiEcx vdGFibGU+PHRhYmxlIH dpZHRoPScxMDAlJyBzd VbyLT4jVs2lRIXdFWXv bGxhcHNlOiBjb (more content not included)... Normal [facility] IgA, Quant.on 05-20-2024 IgA [Mass/Vol] 252 mg/dL Invalid Interpretation Code 64422 [facility] Comment on above: Result Comment: Perf ormed at: [address] [id number] PhD Ramila Ackerman Performed By: #### 1 [id number] #### [facility] [address] [place] [address] IgE, Quanton 05-20-2024 IgE Qn 30 International_Unit/ mL Invalid Interpretation Code 6-495 [facility] Comment on above: Result Comment: Perf ormed at: [address] [id number] MD Zack David Performed By: #### 1 [id number] #### [facility] [address] [place] [address] IgG, Quant.on 05-20-2024 IgG [Mass/Vol] 1137 mg/dL Invalid Interpretation Code 120-5329 [facility] Comment on above: Result Comment: Perf ormed at: [address] [id number] PhD Ramila Ackerman Performed By: #### 1 [id number] #### [facility] [address] [place] [address] IgM, Quanton 05-20-2024 IgM [Mass/Vol] 102 mg/dL Invalid Interpretation Code 26-217 [facility] Comment on above: Result Comment: Perf ormed at: [facility] [address] [place], [place] [id number] PhD Ramila Ackerman Performed By: #### 1 [id number] #### [facility] [address] [place] [address] Vitamin D 25 Hydroxyon 05-14 25-hydroxyvitamin D3 [Mass/Vol] 46.2 ng/mL Normal 30.0-100.0 [facility] Comment on above: Performed By: #### 5 [id number] #### [facility] [address] [place] [address] BMPon 05-13-2024 Anion gap [Moles/Vol] 12 mmol/L Normal 6-16 [facility] Comment on above: Performed By: #### 2 [id number] #### [facility] [address] [place] [address] Calcium [Mass/Vol] 9.8 mg/dL Normal 8.9-11.1 [facility] Comment on above: Performed By: #### 2 [id number] #### [facility] [address] [place] [address] Chloride [Moles/Vol] 104 mmol/L Normal 101-111 [facility] Comment on above: Performed By: #### 2 [id number] #### [facility] [address] [place] [address] CO2 [Moles/Vol] 25 mmol/L Normal 21-31 [facility] Comment on above: Performed By: #### 2 [id number] #### [facility] [address] [place] [address] Creatinine [Mass/Vol] 0.9 mg/dL Normal 0.5-1.3 [facility] Comment on above: Performed By: #### 2 [id number] #### [facility] [address] [place] [address] Glucose [Mass/Vol] 86 mg/dL Normal 55-199 [facility] Comment on above: Performed By: #### 2 [id number] #### [facility] [address] [place] [address] Potassium [Moles/Vol] 4.2 mmol/L Normal 3.5-5.3 [facility] Comment on above: Performed By: #### 2 [id number] #### [facility] [address] [place] [address] Sodium [Moles/Vol] 137 mmol/L Normal 135-145 [facility] Comment on above: Performed By: #### 2 [id number] #### [facility] [address] [place] [address] Urea nitrogen [Mass/Vol] 20 mg/dL Normal 5-21 [facility] Comment on above: Performed By: #### 2 [id number] #### [facility] [address] [place] [address] Urea nitrogen/Creatinine [Mass ratio] 22 No Units High 10-20 [facility] Comment on above: Performed By: #### 2 [id number] #### [facility] [address] [place] [address] CBC w/ Auto Diffon 4 Basophils/100 WBC (Bld) 0.4 % Normal 0.0-2.0 [facility] Comment on above: Performed By: #### 2 [id number] #### [facility] [address] [place] [address] Basophils/Leukocytes Auto (Bld) [Pure # fraction] 0.0 E9/L Normal 0.0-0.2 [facility] Comment on above: Performed By: #### 2 [id number] #### [facility] [address] [place] [address] Eosinophils (Bld) [#/Vol] 0.0 E9/L Normal 0.0-0.5 [facility] Comment on above: Performed By: #### 2 [id number] #### [facility] [address] [place] [address] Eosinophils/100 WBC (Bld) 0.7 % Normal 0.0-8.0 [facility] Comment on above: Performed By: #### 2 [id number] #### [facility] [address] [place] [address] Erythrocyte distribution width (RBC) [Ratio] 12.7 % Normal 10.9-14.2 [facility] Comment on above: Performed By: #### 2 [id number] #### [facility] [address] [place] [address] Hematocrit (Bld) [Volume fraction] 41.2 % Normal 34.0-46.0 [facility] Comment on above: Performed By: #### 2 [id number] #### [facility] [address] [place] [address] Hemoglobin (Bld) [Mass/Vol] 13.9 g/dL Normal 12.0-16.0 [facility] Comment on above: Performed By: #### 2 [id number] #### [facility] [address] [place] [address] Lymphocytes (Bld) [#/Vol] 1.6 E9/L Normal 1.0-4.0 [facility] Comment on above: Performed By: #### 2 [id number] #### [facility] [address] [place] [address] Lymphocytes/100 WBC (Bld) 22.8 % Normal 14.0-50.0 [facility] Comment on above: Performed By: #### 2 [id number] #### [facility] [address] [place] [address] MCH (RBC) [Entitic mass] 30.7 pg Normal 27.0-34.0 [facility] Comment on above: Performed By: #### 2 [id number] #### [facility] [address] [place] [address] MCHC (RBC) [Mass/Vol] 33.8 g/dL Normal 31.4-36.0 [facility] Comment on above: Performed By: #### 2 [id number] #### [facility] [address] [place] [address] MCV (RBC) [Entitic vol] 90.8 fL Normal 80.0-100.0 [facility] Comment on above: Performed By: #### 2 [id number] #### [facility] [address] [place] [address] Monocytes (Bld) [#/Vol] 0.4 E9/L Normal 0.2-1.0 [facility] Comment on above: Performed By: #### 2 [id number] #### [facility] [address] [place] [address] Neutrophils (Bld) [#/Vol] 5.0 E9/L Normal 2.0-7.5 [facility] Comment on above: Performed By: #### 2 [id number] #### [facility] [address] [place] [address] Neutrophils/100 WBC (Bld) 70.3 % Normal 36.0-75.0 [facility] Comment on above: Performed By: #### 2 [id number] #### [facility] [address] [place] [address] Platelet mean volume (Bld) [Entitic vol] 8.6 fL Normal 6.4-10.8 [facility] Comment on above: Performed By: #### 2 [id number] #### [facility] [address] [place] [address] Platelets (Bld) [#/Vol] 299.0 E9/L Normal 150.0-500.0 [facility] Comment on above: Performed By: #### 2 [id number] #### [facility] [address] [place] [address] RBC (Bld) [#/Vol] 4.5 E12/L Normal 4.3-5.9 [facility] Comment on above: Performed By: #### 2 [id number] #### [facility] [address] [place] [address] WBC corrected for nucl RBC Auto (Bld) [#/Vol] 7.1 E9/L Normal 4.0-11.0 [facility] Comment on above: Performed By: #### 2 [id number] #### [facility] [address] [place] [address] CHEMISTRYOrdered By: SYSTEM SYSTEM on 05-13-2024 Anion [...] for Treatmenton 05-01 Consent for Treatment [id number] DB#[id number] Normal [facility] Family Medicine Office/Clini c Noteon 05-13-2024 [...] significant abnormalities. A DEXA scan obtained from [place] revealed the presence of osteoporosis. Her fracture [...] aids in arterial relaxation. 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 Normal [facility] Comment [...] 05-13 TSH Qn 2.00 m[IU]/L Normal 0.34-5.60 [facility] Comment on above: Performed By: #### 1 [id number] #### [facility] Laboratory [address] [place] [address] eGFRon 05-13-2024 eGFR 67 mL/min/1.73 m2 Normal >=59 [facility] Comment on above: Order Comment: Order added by Discern Expert. Performed By: #### 1 [id number] #### [facility] Laboratory [address] [place] [address] Ambulatory Visit Summaryon 0 05-12-2024 Ambulatory Visit Summary KERMIT ROSEN :1950 Visit Date:05/12/2024 Ambulatory Visit Instructions Your Diagnosis Pneumonia Fatigue Chronic sinusitis with recurrent bronchitis Varicose veins of calf Otitis media of left ear Bronchitis, not specified as acute or chronic Your Care Team Attending Physician - Vilma John Primary Care Physician - Esvin AVILES, Vilma Rivera This Is Your Medications List [facility] Prescription (spacer) Non-Formulary Medication (NAC Detox Regulators) [...] sertraline (sertraline 50 mg Tab) thyroid desiccated ([place] Thyroid 30 mg Tab) valsartan (valsartan 160 [...] 11:20 AM EDT With: Vilma John Where: [facility] Invalid Interpretation Code [address], [place] [address]- \.br\ You Need to Complete the Following\.br\ YOSELIN w/Reflex if POS, Blood, Routine collect, 05/12/24, Order for future visit, Lab Collect, Chronic sinusitis with recurrent bronchitis [facility] Patient Educationon 05-12-20 Patient Education Cardiovascular [...] these instructions at home: Medicines ? Take qqyp-brz-xpwalcu and prescription medicines only as told by [...] ? Y (more content not included)... Normal [facility] Ambulatory Visit Summaryon 0 05-06-2024 Ambulatory Visit Summary KERMIT ROSEN :1950 Visit Date:05/06/2024 Ambulatory Visit Instructions Your Diagnosis Pneumonia, Pneumonia BMI 23.0-23.9, adult Your Care Team Attending Physician - FABIOLA AVILES, ZHOU Primary Care Physician - Esvin AVILES, Vilma Rivera This Is Your Medications List [facility] Prescription (spacer) Non-Formulary Medication (NAC Detox Regulators) [...] sertraline (sertraline 50 mg Tab) thyroid desiccated ([place] Thyroid 30 mg Tab) valsartan (valsartan 160 [...] 2:40 PM EDT With: Vilma John Where: [facility] Invalid Interpretation Code [address], [place] [address]- \.br\ Friday 1:00 PM EDT \.br\ With:\.br\ Where: [facility] Family Medicine Office/Clini c Noteon 05-06-2024 [...] did offer her pulmonary rehab or a pre sales technical engineer referral, but she is not yet interested. [...] day(s), # 7 tab(s), Refills(s) 0, Pharmacy: [facility], 154, cm, 05/06/24 15:09:00 [...] 0.25 mg= 1 tab(s), Oral, Daily, PRN [place] Thyroid 30 mg Tab, 30 mg= 1 [...] K2 zinc (more content not included)... Normal [facility] Comment on above: Result Comment: Elec tronically Signed By: ZHOU FONTANEZ\.reg\Date and Time Signed: 05/06/24 16:22 EDT Family [...] keep secretion (more content not included)... Normal [facility] Comment on above: Result Comment: Elec tronically Signed By: Vilma John\.br\Date and Time Signed: 04/16/24 05:17 EDT\.br\Electronically Co-Signed By: Floridalma Soliman\.br\Date and Time Co-Signed: 04/14/24 12:24 EDT Ambulatory Visit Summaryon 0 04-14-2024 Ambulatory Visit Summary KERMIT ROSEN Shaw :1950 Visit Date:04/14/2024 Ambulatory Visit Instructions Your [...] sertraline (sertraline 50 mg Tab) thyroid desiccated ([place] Thyroid 30 mg Tab) valsartan (valsartan 160 [...] 11:20 AM EDT With: Vilma John Where: [facility] Normal [address], [place] [address]- \.br\ Medications\.br\ What How Much When Why Instructions\.br\ New brompheniramine/ dextromethorphan/ PSE (Bromfed DM oral syrup) 5 Milliliter By Mouth 4 times a day as needed for for cough and congestion Bronchitis Flu-like symptoms Pickup at [facility] 1985\.br\ New methylPREDNISolone (Medrol 4 mg Tab) 1 Packets By Mouth As Directed Bronchitis Flu-like symptoms Duration: 6 Days as directed on package labeling Pickup at [facility] 1985\.br\ Unchanged albuterol (Ventolin HFA 90 [...] questions or concerns \.br\ Unchanged thyroid desiccated ([place] Thyroid 30 mg Tab) 1 Tablets By [...] if questions or concerns \.br\ Pharmacy Information\.br\ [facility] 1986: [address] [facility] [place], [place] [id number] [phone]\.br\ \.br\ What How Much When Comments\.br\ Stop [...] for choosing us for your care.\.br\ \.br\ [facility] Patient Educationon 04-14-20 24 Patient Education Infectious Disease Upper Respiratory Infection, [...] to help relieve symptoms, such as: ? Hubb-zkb-zdrmrvz cold medicines. ? Cough suppressants. Coughing is [...] other clear broths. General instructions ? Take gatk-yak-yneipon and prescription medicines only as told by [...] and water are not available, use hand front end web developer. ? Avoid touching your mouth, face, eyes, [...] Get help (more content not included)... Normal [facility] Provider Letteron 04-14-2024 Provider Letter April 14, 2024 KERMIT ROSEN [facility]ly [facility] [place] [address] : 1950 To Whom It May Concern, Please excuse above patient from work. Date of Illness: From: 04/12/2024 To: 04/06/2024 May Return to Work On: 04/19/2024 Restrictions: None Comments: None Sincerely, [facility] [address] [place] [address], [place] [address] Normal [facility] XR Shoulder Complete Lefton 03-12-2024 XR [...] mGy = na DAP = na Normal [facility] Consent for Treatmenton 03-01 Consent for Treatment [id number] B4#1.00TIFF Normal [facility] Family Medicine Office/Clini c Noteon 02-09-2024 Family Medicine Office/Clinic Note Chief Complaint Discuss labs, MRI, and Thyroid medicaiton [facility] Staff Reason for Visit: Patient here to discuss labs, thyroid medication, and MRI results Labs Done: February 03, 2024 Health Maintenance: Breast Cancer Screening Due History of Present Illness Kermit Rosen 74-year-old female who would like to discuss her laboratory results, thyroid medications, and MRI results. Cardiac health. The patient's bench hand, Dr Pisano, has advised on continuing her statin therapy. [...] statin medication. Hypothyroidism. She is currently taking [place] Thyroid 30 mg, which seems to be effective. She believes that iodine significantly benefits her thyroid function; however, she is experiencing hair loss, which she attributes to the use of generic medication. She was transitioned to the generic version at [facility]. She prefers the branded version. She [...] topical analgesic cream she acquired from an [place] man, which provides pain relief when applied [...] emergency care (more content not included)... Normal [facility] Comment [...] This Is Your Medications List thyroid desiccated ([place] Thyroid 30 mg Tab) Contact prescribing physician [...] 11:20 AM EDT With: Vilma John Where: [facility] Normal [address] [address] [facility] [place] [address]- \.br\ Medications\.br\ What How Much When Why Instructions\.br\ Changed thyroid desiccated ([place] Thyroid 30 mg Tab) 1 Tablets By Mouth Every day Hypothyroidism no Generic substitutions please - Pickup at [facility]\.br\ Unchanged albuterol (Ventolin HFA [...] if questions or concerns \.br\ Pharmacy Information\.br\ [facility]: [address] [phone]\.br\ Allergies\.br\ Citalopram Hydrobromide (Unknown)\.br\ propranolol (hives)\.br\ diclofenac [...] for choosing us for your care.\.br\ \.br\ [facility] Patient Educationon 02-06-20 24 Patient Education [...] Follow these instructions at home: ? Take jidl-yis-rjxukqy and prescription medicines only as told by [...] provider. Document Revised: 11/19/2022 Document Reviewed: 11/19/2022 [employer] Patient Education ? 2022 Get Me Listed. Mental and Behavioral Health Major Depressive Disorder, [...] can i (more content not included)... Normal [facility] CRPon 02-03-2024 CRP [Mass/Vol] mg/L Normal <=1.9 [facility] Comment on above: Performed By: #### 2 [id number], [id number], 0450128, [id number] ####[facility] [address] [place] [address] Consent for Treatmenton Consent for Treatment [id number] 9E#1.00TIFF Normal [facility] Free T4on 02-03-2024 Free T4 [Mass/Vol] 0.72 ng/dL Normal 0.58-1.64 [facility] Comment on above: Performed By: #### 2 943926, 3783102, 8408431, [id number] #### [facility] Laboratory [address] [place] [address] Sed Rate Automatedon 024 ESR (Bld) [Velocity] 10 mm/h Normal 0-34 [facility] Comment on above: Performed By: #### 2 820909, 6305004, 2635230, [id number] ####[facility] [address] [place] [address] Vit B12on 02-03-2024 Cobalamin (Vitamin B12) [Mass/Vol] 318 pg/mL Normal 50-1500 [facility] Comment on above: Performed By: #### 2 953003, 5551967, 9685437, [id number] ####[facility] [address] [place] [address] MRI Brain w/ + w/o Contrasto n [...] Vueway Contrast amount in ml's: 6 Normal [facility] Consent for Treatmenton 01-02 Consent for Treatment [id number] [id number] Normal [facility] MRA Neck w/o Contraston 01-02 MRA Neck w/o Contrast Exam Date/Time: 01/21/2024 11:54 EST Reason for Exam: Transient ischemic attack (TIA);Other (please specify) Report IMPRESSION: No evidence for significant stenosis. EXAMINATION: MRA Neck w/o Contrast HISTORY: Headaches, migraines. Possible TIA. TECHNIQUE: Routine MRA of the neck without contrast, with 3-D and 2-D fcln-un-ejlxoa images. COMPARISON: None RESULT: MRA NECK: Some [...] EL Technologist: DEYSI Technical Comments None Normal [facility] MRI Spine Cervical w/o Contr aramis 01-22-2024 MRI Spine Cervical w/o Contrast Exam Date/Time: 01/21/2024 11:55 EST Reason for Exam: Myelopathy, chronic, cervical spine;Other (please specify) Report [facility] [phone] IMPRESSION: Multilevel degenerative changes cervical spine as [...] EL Technologist: DEYSI Technical Comments None Normal [facility] RAD - MRI Screening Formon 0 01-22-2024 RAD - MRI Screening Form [id number]#1.00TIFF Normal [facility] CHEMISTRYOrdered By: SYSTEM SYSTEM on 01-21-2024 Creatinine [Mass/Vol] 0.7 mg/dL Normal 0.5 - 1.3 mg/dL Remisol Chem eGFR 91 mL/min/1.73 m2 Normal >=59mL/min/1.73 m2 Remisol Chem Consent for Treatmenton 01-02 Consent for Treatment [id number] 24#1.00TIFF Normal [facility] Creatinineon 01-21-2024 Creatinine [Mass/Vol] 0.7 mg/dL Normal 0.5-1.3 [facility] Comment on above: Performed By: #### 2 310853, [id number] #### [facility] Laboratory [address] [place] [address] Physician Orderon 01-21-2024 Physician Order [id number] 162#1.00TIFF Normal [facility] RAD - MRI Screening Formon 0 01-21-2024 RAD - MRI Screening Form [id number] 846#1.00TIFF Normal [facility] eGFRon 01-21-2024 eGFR 91 mL/min/1.73 m2 Normal >=59 [facility] Comment on above: Order Comment: Order added by Discern Expert. Performed By: #### 2 940483, [id number] #### [facility] [address] [place] [address] Insurance Correspondenceon 0 01-16-2024 Insurance Correspondence [id number] 93#1.00TIFF Normal [facility] Family Medicine Office/Clini c Noteon 01-15-2024 [...] She does follow with Dr. Locke with [facility], she does have history of coronary artery [...] sed ra (more content not included)... Normal [facility] Comment [...] these instructions at home: Medicines ? Take exha-mlf-oaqnata and prescription medicines only as told by [...] a condition that needs treatment. ? Take koqj-qet-lhkowia and prescription medicines only as told by [...] provider. Document Revised: 12/06/2019 Document Reviewed: 12/06/2019 Elsevier Patient Education ? 2022 Get Me Listed. Gastroenterology Vitamin B12 Deficiency Vitamin B12 deficiency [...] are used (more content not included)... Normal [facility] Creatinine (Bld) [Mass/Vol]O rdered By: Ryley Marinelli on 11-04-2023 Creatinine [Mass/Vol] 0.8 mg/dL 0.6-1.3 [facility] Comment on above: ER/ESD physician is notified/shown all ISTAT results.Critical values may be confirmed by laboratory testing ifdeemed necessary by ER attending doctor. No Panel InformationOrdered By: Ryley Marinelli on 11-04-2023 Bedside Estimated GFR (eGFR) > 60.0 [facility] Ambulatory Visit Summaryon 1 12-30-2022 Ambulatory Visit Summary KERMIT ROSEN :1950 Visit Date:10/30/2023 Ambulatory Visit Instructions Your Diagnosis Dysuria Mild recurrent major depression Benign essential hypertension Izzy's thyroiditis Vitamin D deficiency Vaginal bleeding problems Nasal septal ulcer BMI 24.0-24.9, adult Tests Performed Urnls Dip Stick Auto w/o Microscopy POC 52404 Your Care Team Attending Physician - Vilma John Primary Care Physician - Vilma John [facility] (sp[facility]) albuterol (Ventolin HFA 90 mcg/inh [...] sertraline (sertraline 50 mg Tab) thyroid desiccated ([place] Thyroid 30 mg Tab) valsartan (valsartan 160 [...] Nasal septal ulcer Refills: 1 Pickup at [facility] 1985 Changed albuterol (Ventolin HFA [...] By Mouth Every day Unchanged thyroid desiccated ([place] Thyroid 30 mg Tab) 1 Tablets By Mouth Every day Unchanged valsartan (valsartan 160 mg Tab) 90 EA, TAKE 1 TABLET BY MOUTH ONCE DAILY Unchanged zinc acetate (zinc acetate 50 mg oral capsule) 1 Capsules By Mouth Every day on an empty stomach 1 hour before or 2 hours after eating Pharmacy Information [facility]: [address] [place], [place] [phone] What How Much When Why Comments Stop Taking fluconazole (Diflucan 100 mg Tab) 1 Tablets By Mouth Every day Sinusitis take once if needed and may repeat if needed Test Results Urnls Dip Stick Auto w/o Microscopy POC 19304 (10/30/2023) Bilirubin Urine Dipstick - Negative Blood Urine Dipstick - Negative Glucose Urine Dipstick - Negative Ketones Urine Dipstick - Negative Leukocytes Urine Dipstick - Negative Nitrite Urine Dipstick - Negative Protein Urine Dipstick - Negative Specific [place] Urine Dipstick - 1.010 Urine Appearance Urine [...] of b (more content not included)... Normal [facility] Family Medicine Office/Clini c Noteon 10-30-2023 [...] up for HTN CAD 40%- goes to [facility]- Dr Burgos current medication: metoprolol, valsartan [...] Urnls Dip Stick Auto w/o Microscopy POC 05141 2. Mild recurrent major depression (F33.0: Major [...] hypertension) Medication management per Dr. Cottrell with [facility], BP is stable proved from last visit [...] will need rechecked prior next visit. Continue [place] Thyroid 30 mg once daily Refill provided for 90 days F/u PRN Ordered: TSH With T4fr Reflex 5. Vitamin D deficiency (E55.9: Vitamin D deficiency, uns (more content not included)... Normal [facility] Comment on above: Result Comment: Elec tronically Signed By: Vilma John\.reg\Date and Time Signed: 10/30/23 11:26 EST Patient Educationon 10-30-20 Patient Education Mental and Behavioral Health Major [...] may include: ? Your personality traits. ? [place] or conditioned behaviors or thoughts or feelings [...] In the (more content not included)... Normal [facility] DHEAon 10-23-2023 DHEA [Mass/Vol] 103 ng/dL Invalid Interpretation Code 402 [facility] Comment on above: Result Comment: This test was developed and its performance characteristics determined by [employer]. It has not been cleared or approved by the Food and Drug Administration. Performed at: [facility] [id number] MD Zack David Performed By: #### 2 178625, 4202446, 24860455, 9721861, 19972044, 51304401, 7450955, 3973979, 0380647 ####[facility] [address] [place] [address] Estrogens Totalon 10-23-2023 Estrogen [Mass/Vol] 64 pg/mL Invalid Interpretation Code [facility] Comment on above: Result Comment: Prep ubertal < 40 Female Cycle: 1-10 Days 16 - 328 11-20 Days 34 - 501 21-30 Days 48 - 350 Post-Menopausal Performed at: [facility] [id number] MD Zack David Performed By: #### 2 698988, 1783667, 72371800, 4372271, 09735071, 23057378, 9801242, 1333190, 0096490 ####[facility] [address] [place] [address] Testost Totalon 10-23-2023 Testosterone [Mass/Vol] 9 ng/dL Invalid Interpretation Code [facility] Comment on above: Result Comment: Perf ormed at: [facility] [id number] PhD Ramila Ackerman Performed By: #### 2 460664, 2689074, 71976919, 3869380, 31296867, 45602132, 1663855, 4788238, 5055818 ####[facility] [address] [place] [address] Progesteroneon 10-20-2023 Progesterone [Mass/Vol] 1.40 ng/mL Invalid Interpretation Code [facility] Comment on above: Result Comment: REFE RENCE RANGE Males 0.14-2.06 ng/mL Non- Females Follicular 0.10-0.60 ng/mL Luteal 3.00-17.5 ng/mL Midluteal 3.30-18.6 ng/mL Post-Menopausal 0.10-0.40 ng/mL First Trimester 8.30-66.5 ng/mL Second Trimester 18.9-66.1 ng/mL Third Trimester 35.8-312.4 ng/mL Performed By: #### 2 893598, 2898018, 54997592, 4593284, 30250122, 63964923, 4166024, 4380573, 9505660 ####[facility] [address] [place] [address] Auto Diffon 10-18-2023 Basophils/100 WBC (Bld) 0.6 % Normal 0.0-2.0 [facility] Comment on above: Order Comment: Order Added by Discern Expert. Performed By: #### 2 652339, 2208379, 05937954, 3562438, 88999382, 44562094, 9189352, 9199685, 3210111 ####[address] [place] [address] Basophils/Leukocytes Auto (Bld) [Pure # fraction] 0.0 E9/L Normal 0.0-0.2 [facility] Comment on above: Order Comment: Order Added by Discern Expert. Performed By: #### 2 750675, 1457966, 41769598, 8211897, 63253574, 29268212, 8265813, 7312435, 8142590 ####[facility] [address] [place] [address] Eosinophils/100 WBC (Bld) 1.3 % Normal 0.0-8.0 [facility] Comment on above: Order Comment: Order Added by Discern Expert. Performed By: #### 2 999341, 1058906, 90397242, 4456196, 21098611, 79393924, 1427539, 3124340, 4111318 ####[facility] [address] [place] [address] Eosinophils/Leukocyt es Auto (Bld) [Pure # fraction] 0.0 E9/L Normal 0.0-0.5 [facility] Comment on above: Order Comment: Order Added by Amos Expert. Performed By: #### 2 258592, 4529306, 09087720, 2527731, 80930142, 33348409, 2392955, 6525759, 3918267 ####[facility] [address] [place] [address] Lymphocytes/100 WBC (Bld) 45.5 % Normal 14.0-50.0 [facility] Comment on above: Order Comment: Order Added by Discern Expert. Performed By: #### 2 899827, 9611111, 98303261, 6848423, 16043886, 69347691, 0719930, 5105407, 3734435 ####[facility] [address] [place] [address] Lymphocytes/Leukocyt es Auto (Bld) [Pure # fraction] 1.6 E9/L Normal 1.0-4.0 [facility] Comment on above: Order Comment: Order Added by Amos Expert. Performed By: #### 2 881489, 7717249, 60399791, 3323669, 84772743, 51085132, 0913400, 8530638, 0357435 ####[facility] [address] [place] [address] Monocytes/100 WBC (Bld) 7.9 % Normal 4.0-14.0 [facility] Comment on above: Order Comment: Order Added by Amos Expert. Performed By: #### 2 204830, 9701453, 91633810, 6357210, 00816674, 36708131, 2617386, 1529260, 2888888 ####[facility] [address] [place] [address] Monocytes/Leukocytes Auto (Bld) [Pure # fraction] 0.3 E9/L Normal 0.2-1.0 [facility] Comment on above: Order Comment: Order Added by Amos Expert. Performed By: #### 2 296980, 0361169, 29510433, 7336093, 89754018, 16724659, 3804568, 2826707, 8859842 ####[facility] [address] [place] [address] Neutrophils/100 WBC (Bld) 44.7 % Normal 36.0-75.0 [facility] Comment on above: Order Comment: Order Added by Discern Expert. Performed By: #### 2 923489, 9760984, 48053804, 1974533, 00984190, 73523004, 8032897, 3038471, 0747119 ####[address] [place] [address] Neutrophils/Leukocyt es Auto (Bld) [Pure # fraction] 1.6 E9/L Low 2.0-7.5 [facility] Comment on above: Order Comment: Order Added by Discern Expert. Performed By: #### 2 208475, 3428644, 19120470, 7438401, 98452525, 35549968, 0504905, 7758883, 5296835 ####[address] [address] CBC w/ Auto Diffon 3 Erythrocyte distribution width (RBC) [Ratio] 13.1 % Normal 10.9-14.2 [facility] Comment on above: Performed By: #### 2 953132, 1844666, 15788110, 3110159, 73105756, 15100732, 6556628, 0479553, 8390325 ####[address] [place] [address] Hematocrit (Bld) [Volume fraction] 43.4 % Normal 34.0-46.0 [facility] Comment on above: Performed By: #### 2 232318, 3205476, 93544755, 4073568, 23317611, 39212297, 9166410, 4866720, 6252555 ####[address] [place] [address] Hemoglobin (Bld) [Mass/Vol] 14.7 g/dL Normal 12.0-16.0 [facility] Comment on above: Performed By: #### 2 650050, 2250493, 64074180, 5166680, 36181641, 54412516, 0821772, 3906670, 2283722 ####[address] [place] [address] MCH (RBC) [Entitic mass] 30.5 pg Normal 27.0-34.0 [facility] Comment on above: Performed By: #### 2 808722, 0176935, 44051137, 0180107, 41127930, 12430595, 3550076, 1220699, 0740791 ####[address] [address] MCHC (RBC) [Mass/Vol] 33.8 g/dL Normal 31.4-36.0 [facility] Comment on above: Performed By: #### 2 107900, 3059075, 42944104, 7283584, 86005250, 64089783, 7002258, 0695290, 5776309 ####[address] [address] MCV (RBC) [Entitic vol] 90.2 fL Normal 80.0-100.0 [facility] Comment on above: Performed By: #### 2 314495, 3948017, 58321266, 5488240, 73770591, 01635113, 3884924, 7011696, 8794106 ####[address] [place] [address] Platelet mean volume (Bld) [Entitic vol] 9.8 fL Normal 6.4-10.8 [facility] Comment on above: Performed By: #### 2 196101, 4008499, 32495618, 4619115, 23853882, 79771741, 1873488, 3583518, 2242240 ####[address] [address] Platelets (Bld) [#/Vol] 222.0 E9/L Normal 150.0-500.0 [facility] Comment on above: Performed By: #### 2 341102, 4550531, 38750860, 2088783, 48057867, 26449296, 0725159, 7969405, 6692811 ####[facility] [address] [place] [address] RBC (Bld) [#/Vol] 4.8 E12/L Normal 4.3-5.9 [facility] Comment on above: Performed By: #### 2 029459, 1367145, 00433446, 3019877, 23260148, 81520895, 6655857, 4687226, 6220394 ####[facility] [address] [place] [address] WBC corrected for nucl RBC Auto (Bld) [#/Vol] 3.6 E9/L Low 4.0-11.0 [facility] Comment on above: Performed By: #### 2 839360, 6086547, 97828133, 9700137, 33221168, 91001739, 7337930, 1592580, 5434279 ####[facility] [address] [place] [address] CHEMISTRYOrdered By: SYSTEM SYSTEM on 10-18-2023 Albumin [...] rate/Area] 78 mL/min/1.73 m2 Normal >=59mL/min/1.73 m2 [facility] Chem S Comment on above: Interpretive Data: [...] 22 mg/dL High 5 - 21 mg/dL [facility] Remisol Urea nitrogen/Creatinine [Mass ratio] 28 mg/mg High 10 - 20 [facility] Remisol CMPon 10-18-2023 Albumin [Mass/Vol] 3.9 g/dL Normal 3.3-5.0 [facility] Comment on above: Performed By: #### 2 599228, 9305397, 57596079, 7466759, 30798038, 84918068, 8582305, 4279351, 5719865 ####[facility] [address] [place] [address] Albumin/Globulin (S) [Mass conc ratio] 1.2 Normal 1.1-2.2 [facility] Comment on above: Performed By: #### 2 474181, 7661015, 75349797, 8053307, 56415190, 69768502, 4239946, 9109955, 8142698 ####[facility] [address] [place] [address] ALP [Catalytic activity/Vol] 82 Int._Unit/L Normal 21-98 [facility] Comment on above: Performed By: #### 2 359438, 4182340, 14873102, 5384943, 07900240, 48409726, 7847885, 1652985, 5662624 ####[facility] [address] [place] [address] ALT No additional P-5'-P [Catalytic activity/Vol] 17 Int._Unit/L Normal 6-46 [facility] Comment on above: Performed By: #### 2 435783, 2455656, 07084041, 5417138, 74869565, 26457483, 2960313, 2901030, 4501643 ####[facility] [address] [place] [address] Anion gap [Moles/Vol] 10 mmol/L Normal 6-16 [facility] Comment on above: Performed By: #### 2 311200, 2344507, 30798651, 4097972, 34749383, 15936575, 9736221, 2879620, 1687697 ####[facility] [address] [place] [address] AST [Catalytic activity/Vol] 24 Int._Unit/L Normal 5-43 [facility] Comment on above: Performed By: #### 2 223231, 7651438, 72532656, 8702735, 30936002, 78977054, 7431486, 1071336, 3039270 ####[facility] [address] [place] [address] Bilirubin [Mass/Vol] 0.7 mg/dL Normal 0.0-1.1 [facility] Comment on above: Performed By: #### 2 470050, 8601685, 48664739, 0239094, 75455418, 50005217, 5641376, 1195052, 3755642 ####[facility] [address] [place] [address] Calcium [Mass/Vol] 9.4 mg/dL Normal 8.9-11.1 [facility] Comment on above: Performed By: #### 2 695070, 6956822, 86166656, 6197819, 37133787, 90348166, 2003634, 3148383, 5226163 ####[facility] [address] [place] [address] Chloride [Moles/Vol] 108 mmol/L Normal 101-111 [facility] Comment on above: Performed By: #### 2 766813, 1532876, 15239624, 7936475, 60449049, 00035554, 3688620, 9457038, 9093733 ####[facility] [address] [place] [address] CO2 [Moles/Vol] 26 mmol/L Normal 21-31 [facility] Comment on above: Performed By: #### 2 749702, 5706143, 05496453, 5157125, 98260204, 39171100, 1961189, 8582115, 6281779 ####[facility] [address] [place] [address] Creatinine [Mass/Vol] 0.8 mg/dL Normal 0.5-1.3 [facility] Comment on above: Performed By: #### 2 442727, 5398671, 19717413, 7645050, 74767903, 56250524, 6176256, 6009900, 7517583 ####[facility] [address] [place] [address] Globulin (S) [Mass/Vol] 3.4 g/dL Normal 1.4-4.0 [facility] Comment on above: Performed By: #### 2 281441, 9469444, 97973667, 3687101, 01930936, 99985875, 5082320, 9030951, 1524653 ####[facility] [address] [place] [address] Glucose [Mass/Vol] 101 mg/dL Normal 55-199 [facility] Comment on above: Result Comment: If t his glucose result represents a fasting glucose, interpretation should refer to the following reference range: 55-99 mg/dL Performed By: #### 2 829511, 5585476, 12491726, 1576593, 02942771, 21433924, 0478087, 6486998, 3018281 ####[facility] [address] [place] [address] Potassium [Moles/Vol] 4.3 mmol/L Normal 3.5-5.3 [facility] Comment on above: Performed By: #### 2 232877, 2398832, 51218117, 7201990, 47875125, 32338937, 7379769, 3929609, 1157131 ####[facility] [address] [place] [address] Protein [Mass/Vol] 7.3 g/dL Normal 6.0-7.8 [facility] Comment on above: Performed By: #### 2 872122, 5528129, 21565190, 6331326, 72842009, 79810087, 2236806, 8967057, 6200473 ####[facility] [address] [place] [address] Sodium [Moles/Vol] 140 mmol/L Normal 135-145 [facility] Comment on above: Performed By: #### 2 786405, 3495096, 04891824, 0561290, 79973675, 59022094, 8349652, 2648340, 1515849 ####[facility] [address] [place] [address] Urea nitrogen [Mass/Vol] 22 mg/dL High 5-21 [facility] Comment on above: Performed By: #### 2 001161, 4952384, 65931349, 2138975, 56918686, 09346450, 1637535, 8120582, 1488445 ####[facility] [address] [place] [address] Urea nitrogen/Creatinine [Mass ratio] 28 No Units High 10-20 [facility] Comment on above: Performed By: #### 2 121903, 7357232, 82434769, 4377601, 12446366, 46290390, 5966215, 9670888, 5960030 ####[facility] [address] [place] [address] Consent for Treatmenton 10-01 Consent for Treatment [id number] C3#1.00TIFF Normal [facility] HEMATOLOGYOrdered By: SYSTEM SYSTEM on 10-18-2023 [...] 10-18-2023 Cholesterol [Mass/Vol] 216 mg/dL High 120-200 [facility] Comment on above: Performed By: #### 2 000714, 9033194, 77900882, 9080420, 89383980, 78117939, 5243542, 8304261, 0488854 ####[facility] [address] [place] [address] Cholesterol in HDL [Mass/Vol] 68 mg/dL Invalid Interpretation Code [facility] Comment on above: Result Comment: HDL > or equal to 60 mg/dL: Low cardiovascular risk HDL < 40 mg/dL : High cardiovascular risk Performed By: #### 2 995898, 0934736, 16621068, 6203203, 48967836, 96959052, 4474144, 7366516, 9478137 ####[facility] [address] [place] [address] Cholesterol in LDL [Mass/Vol] 125 mg/dL Normal <=129 [facility] Comment on above: Performed By: #### 2 822785, 1024223, 69709559, 2984982, 36707072, 73775635, 2116226, 0656753, 1939743 ####[facility] [address] [place] [address] Cholesterol in VLDL [Mass/Vol] 17 mg/dL Normal 7-40 [facility] Comment on above: Performed By: #### 2 683200, 5074628, 64054515, 6540486, 92603556, 90681923, 1580650, 5536694, 6261484 ####[facility] [address] [place] [address] Triglyceride [Mass/Vol] 83 mg/dL Normal <=149 [facility] Comment on above: Performed By: #### 2 844345, 5794562, 04044042, 8389415, 25848562, 47882525, 5082551, 4529505, 9149654 ####[facility] [address] [place] [address] eGFRon 10-18-2023 GFR/1.73 sq M.predicted among non-blacks MDRD (S/P/Bld) [Vol rate/Area] 78 mL/min/1.73 m2 Normal >=59 [facility] Comment on above: Order Comment: Order added by Discern Expert. 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 Kidney failure is indicated at less than 15 mL/min/1.73m2. Performed By: #### 2 340370, 9378929, 19673761, 2972604, 50578666, 52145404, 5297389, 0300977, 9584674 ####[facility] [address] [place] [address] Ambulatory Visit Summaryon 1 Ambulatory Visit Summary EKRMIT ROSEN Shaw :1950 Visit Date:09/26/2023 Ambulatory Visit Instructions Your Diagnosis Bronchitis Benign essential hypertension Mild recurrent major depression Izzy's thyroiditis BMI 24.0-24.9, adult Non-smoker Situational insomnia Wellness examination Your Care Team Attending Physician - Vilma John Primary Care Physician - Vilma John This Is Your Medications List alprazolam (alprazolam 0.25 mg Tab) brompheniramine/dex tromethorphan/PSE (Bromfed DM oral syrup) thyroid desiccated ([place] Thyroid 30 mg Tab) Contact prescribing physician [...] Invalid Interpretation Code Mild recurrent major depression [facility] Medicine Office/Clini c Noteon 09-26-2023 Family [...] Vit D deficiency, CAD 40%- goes to [facility]- Dr Burgos Patient here today for: [...] 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 Cottrell with [facility], BP is stable proved from last visit [...] Panel Mo (more content not included)... Normal [facility] Comment on above: Result Comment: Elec tronically Signed By: Vilma John\.br\Date and Time Signed: 09/26/23 10:45 EDT Medication Consenton 023 Medication Consent [id number] 7#1.00TIFF [facility] Medication Consent [id number] 54#1.00TIFF [facility] Patient Educationon 09-26-20 23 Patient Education [...] Reviewed: 08/01/2022 Elsevier Patient Education ? 2022 [employer] Mental and Behavioral Health Major Depressive [...] may include: ? Your personality traits. ? [place] or conditioned behaviors or thoughts or feelings [...] low-level depressio (more content not included)... Normal [facility] Patient Educationon 09-16-20 Patient Education Cardiovascular Hypertension, [...] oz glass (more content not included)... Normal [facility] Ambulatory Visit Summaryon 1 Ambulatory Visit Summary KERMIT ROSEN :1950 Visit Date:09/04/2023 Ambulatory Visit Instructions Your Diagnosis Bronchitis Sinusitis Benign essential hypertension BMI 23.0-23.9, adult Your Care Team Attending Physician - Vilma John Primary Care Physician - Rj AVILES, Camryn Murry This Is Your Medications List [facility] Prescription (spacer) albuterol (Albuterol (Eqv-Ventolin HFA) 90 [...] sertraline (sertraline 50 mg Tab) thyroid desiccated ([place] Thyroid 30 mg Tab) valsartan (valsartan 160 [...] 11:00 AM EDT With: Camryn Alves Where: [facility] Primary Care Normal [facility] Family Medicine Office/Clini c Noteon 09-04-2023 [...] wheezing: oPred (more content not included)... Normal [facility] Comment on above: Result Comment: [...] 1? oz glass (more content not included)... [facility] Consent for Treatmenton 08-02 Consent for Treatment [id number] D1#1.00CD:127 [facility] XR Chest 2 Viewson XR Chest [...] mGy = na DAP = na Normal [facility] Family [...] used to see Malinda Rubio CNP at [place] office. Overall, pt reports feeling ongoing cough. [...] oncology. Pt has MRI approved, will call [facility] to get appt scheduled. Patient is hypothyroid Izzy's thyroiditis Compliant with medication. Is taking on an empty stomach. Current medication dose: [place] Thyroid 30mg qd Pt denies sx of memory loss, increased weight, menorrhagia, skin/hair dryness, mental slowness, increased tiredness, intolerance to cold, raised BP, energy loss, depression, slow reflexes or constipation at this time. Osteoporosis?not currently medications. Last DEXA done at [place]. Will be starting Calcium and Vit D [...] Mouth: mucous membranes pink, moist and intact. [place] posterior oropharynx, no palatal inflammation, uvula midline, [...] Sertraline 50 (more content not included)... Normal [facility] Comment on above: Result Comment: Elec tronically Signed By: Rj AVILES, Camryn Murry\.br\Date and Time Signed: 08/19/23 11:47 EDT Pre-Certification Formon Pre-Certification Form [id number] 5E#1.00CD:127 Normal [facility] Dexa Scanson 08-12-2023 Dexa Scans [id number] C#1.00CD:127 Normal [facility] Office Visit (Cardiology)on 07-15-2023 Follow-up visit [...] a smoker Tobacco Use Screening; Status:Complete; Done: 15Jul2023 Patient Instructions Please bring all medicines, vitamins, [...] MG Oral TabletTAKE 1 TABLET DAILY NEEDED. [place] Thyroid 30 MG Oral TabletTAKE 1 TABLET [...] Barr; 10/08/2021 (more content not included)... Normal [employer] Tobacco Screening.on 023 Adult depression screening assessment No [facility] [employer] DO Work Phone: Fall risk assessment a) No falls within the last year [facility] [employer] 250 DO Work Phone: Tobacco use status CPHS b) No [facility] Heart-Sandu roger 250 DO Work Phone: Alanine aminotransferase [En zymatic activity/volume] in Serum or PlasmaOrdered By: Jay Jay iPsano on 07-14-2023 ALT [Catalytic activity/Vol] 13 U/L 7-52 [facility] Aspartate aminotransferase [ Enzymatic activity/volume] in Serum or PlasmaOrdered By: Jay Jay Pisano on 07-14-2023 AST [Catalytic activity/Vol] 19 U/L 13-39 [facility] Basophils Auto (Bld) [#/Vol] Ordered By: Jay Jay Pisano on 07-14-2023 Basophils (Bld) [#/Vol] 0.0 10*3/uL 0.0-0.2 [facility] Basophils/100 WBC Auto (Bld) Ordered By: Jay Jay Pisano on 07-14-2023 Basophils/100 WBC (Bld) 0.9 % . [facility] Calcium [Mass/volume] in Ser um or PlasmaOrdered By: Jay Jay Pisano on 07-14-2023 Calcium [Mass/Vol] 9.4 mg/dL 8.6-10.3 [facility] Carbon dioxide, total [Moles /volume] in Serum or PlasmaOrdered By: Jay Jay Pisano on 07-14-2023 CO2 [Moles/Vol] 28.8 mmol/L 21.0-31.0 [facility] Chloride [Moles/volume] in S rina or PlasmaOrdered By: Jay Jay Pisano on 07-14-2023 Chloride [Moles/Vol] 108 mmol/L 98-107 [facility] Cholesterol [Mass/volume] in Serum or PlasmaOrdered By: Jay Jay Pisano on 07-14-2023 Cholesterol [Mass/Vol] 220 mg/dL 140-200 [facility] Comment on above: Chol less than 200 m g/dl low riskChol 201-239 mg/dl borderline riskChol 240 mg/dl and greater high risk Cholesterol in LDL Calc [Mas s/Vol]Ordered By: Jay Jay Pisano on 07-14-2023 Cholesterol in LDL [Mass/Vol] 135 mg/dL 0-100 [facility] Comment on above: LDL ATP III CLASSIFI CATIONLDL less than 100 mg/dL OptimalLDL 100-129 mg/dL Near or above optimalLDL 130-159 mg/dL Borderline highLDL 160-189 mg/dL HighLDL greater than 189 mg/dL Very high Cholesterol in VLDL Calc [Ma ss/Vol]Ordered By: Jay Jay Pisano on 07-14-2023 Cholesterol in VLDL [Mass/Vol] 30 mg/dL [facility] Creatinine [Mass/volume] in Serum or PlasmaOrdered By: Jay Jay Pisano on 07-14-2023 Creatinine [Mass/Vol] 0.73 mg/dL 0.60-1.20 [facility] Eosinophils Auto (Bld) [#/Vo l]Ordered By: Jay Jay Pisano on 07-14-2023 Eosinophils (Bld) [#/Vol] 0.1 10*3/uL 0.0-0.45 [facility] Eosinophils/100 WBC Auto (Bl d)Ordered By: Jay Jay Pisano on 07-14-2023 Eosinophils/100 WBC (Bld) 2.0 % . [facility] Erythrocyte distribution wid th Auto (RBC) [Ratio]Ordered By: Jay Jay Pisano on 07-14-2023 Erythrocyte distribution width (RBC) [Ratio] 13.0 % 11.9-15.3 [facility] Glucose [Mass/volume] in Ser um or PlasmaOrdered By: Jay Jay Pisano on 07-14-2023 Glucose [Mass/Vol] 85 mg/dL 70-100 [facility] Comment on above: ADA recommended refe rence rangeRandom Glucose Reference Range is dependent on time and content of last meal. Glucose of more than 200 mg/dL in a nonstressed, ambulatory subject supports the diagnosis of Diabetes Mellitus. Hematocrit Auto (Bld) [Volum e fraction]Ordered By: Jay Jay Pisano on 07-14-2023 Hematocrit (Bld) [Volume fraction] 40.5 % 34.0-46.4 [facility] Hemoglobin [Mass/volume] in BloodOrdered By: Jay Jay Pisano 07-14-2023 Hemoglobin (Bld) [Mass/Vol] 13.6 g/dL 11.8-15.4 [facility] Laboratory - Chemistry and C hemistry - challengeon 07-14-2023 Cholesterol [Mass/Vol] 220\S\220 above high threshold 140-200 [facility] General Blood roger 250 DO Work Phone: Comment on above: Chol less than 200 m g/dl low risk Chol 201-239 mg/dl borderline risk Chol 240 mg/dl and greater high risk Cholesterol in LDL [Mass/Vol] 135\S\135 above high threshold 0-100 [facility] General Blood roger 250 DO Work Phone: Comment on above: LDL ATP III CLASSIFI CATION LDL less than 100 mg/dL Optimal LDL 100-129 mg/dL Near or above optimal LDL 130-159 mg/dL Borderline high LDL 160-189 mg/dL High LDL greater than 189 mg/dL Very high Leukocytes [#/volume] correc naheed for nucleated erythrocytes in Blood by Automated counOrdered By: Jay Jay Pisano on 07-14-2023 WBC corrected for nucl RBC Auto (Bld) [#/Vol] 4.3 10*3/uL 3.8-11.6 [facility] Lymphocytes Auto (Bld) [#/Vo l]Ordered By: Jay Jay Pisano on 07-14-2023 Lymphocytes (Bld) [#/Vol] 1.5 10*3/uL 1.00-4.8 [facility] Lymphocytes/100 WBC Auto (Bl d)Ordered By: Jay Jay Pisano on 07-14-2023 Lymphocytes/100 WBC (Bld) 34.3 % . [facility] MCH Auto (RBC) [Entitic mass ]Ordered By: Jay Jay Pisano on 07-14-2023 MCH (RBC) [Entitic mass] 30.5 pg 24.7-34.3 [facility] MCHC Auto (RBC) [Mass/Vol]Or dered By: Jay Jay Pisano on 07-14-2023 MCHC (RBC) [Mass/Vol] 33.6 g/dL 32.0-35.0 [facility] MCV Auto (RBC) [Entitic vol] Ordered By: Jay Jay Pisano on 07-14-2023 MCV (RBC) [Entitic vol] 90.8 fL 80-100 [facility] Monocytes Auto (Bld) [#/Vol] Ordered By: Jay Jay Pisano on 07-14-2023 Monocytes (Bld) [#/Vol] 0.3 10*3/uL 0.0-0.8 [facility] Monocytes/100 WBC Auto (Bld) Ordered By: Jay Jay Pisano on 07-14-2023 Monocytes/100 WBC (Bld) 7.2 % . [facility] Neutrophils Auto (Bld) [#/Vo l]Ordered By: Jay Jay Pisano on 07-14-2023 Neutrophils (Bld) [#/Vol] 2.4 10*3/uL 1.8-7.7 [facility] Neutrophils/100 WBC Auto (Bl d)Ordered By: Jay Jay Pisano on 07-14-2023 Neutrophils/100 WBC (Bld) 55.6 % . [facility] No Panel InformationOrdered By: Jay Jay Pisano on 07-14-2023 Estimated GFR (CKD-EPI) > 60.0 mL/Min [facility] Creatinine Clearance (Chem N/A [facility] No Panel Informationon 07-14 55.6\S\55.6 Normal . [facility] [employer] 250 DO Work Phone: 9.3\S\9.3 Normal 6.3-10.7 [facility] [employer] 250 DO Work Phone: [phone] Normal 150-450 [facility] [employer] 250 DO Work Phone: 13.0\S\13.0 Normal 11.9-15.3 [facility] [employer] 250 DO Work Phone: 33.6\S\33.6 Normal 32.0-35.0 [facility] [employer] 250 DO Work Phone: 30.5\S\30.5 Normal 24.7-34.3 [facility] [employer] 250 DO Work Phone: 2.4\S\2.4 Normal 1.8-7.7 [facility] Heart-Sandu roger 250 DO Work Phone: [phone] 0.1\S\0.1 Normal 0.0-0.45 [facility] Heart-Sandu roger 250 DO Work Phone: [phone] 0.9\S\0.9 Normal . [facility] Heart-Sandu roger 250 DO Work Phone: [phone] 2.0\S\2.0 Normal . [facility] Heart-Sandu roger 250 DO Work Phone: 7.2\S\7.2 Normal . [facility] Heart-Sandu roger 250 DO Work Phone: [phone] 34.3\S\34.3 Normal . [facility] Heart-Sandu roger 250 DO Work Phone: [phone] 0.0\S\0.0 Normal 0.0-0.2 [facility] Heart-Sandu roger 250 DO Work Phone: [phone] Comment on above: PERFORMED BY:[facility] [place], [place] [phone] MEDICAL DIRECTORBLAKE SMART M.D. 0.3\S\0.3 Normal 0.0-0.8 [facility] Heart-Sandu roger 250 DO Work Phone: [phone] 1.5\S\1.5 Normal 1.00-4.8 [facility] Heart-Sandu roger 250 DO Work Phone: [phone] 90.8\S\90.8 Normal 80-100 [facility]-Sandu roger 250 DO Work Phone: [phone] 40.5\S\40.5 Normal 34.0-46.4 [facility]-Sandu roger 250 DO Work Phone: [phone] 13.6\S\13.6 Normal 11.8-15.4 [facility] Heart-Sandu roger 250 DO Work Phone: [phone] 4.46\S\4.46 Normal 3.60-5.00 [facility] Demi roger 250 DO Work Phone: [phone] 4.3\S\4.3 Normal 3.8-11.6 [facility] Demi roger 250 DO Work Phone: > [phone] Normal [facility] Demi duran 250 DO Work Phone: [phone] 8.8\S\8.8 Normal 6.0-15.0 [facility] Demi roger 250 DO Work Phone: 9.4\S\9.4 Normal 8.6-10.3 [facility] Demi roger 250 DO Work Phone: [phone] 28.8\S\28.8 Normal 21.0-31.0 [facility] Demi roger 250 DO Work Phone: 108\S\108 above high threshold 98-107 [facility] Demi duran 250 DO Work Phone: [phone] 4.6\S\4.6 Normal 3.5-5.1 [facility] Demi roger 250 DO Work Phone: [phone] 141\S\141 Normal 136-145 [facility] Demi duran 250 DO Work Phone: 0.73\S\0.73 Normal 0.60-1.20 [facility] Demi roger 250 DO Work Phone: 16\S\16 Normal 7-25 [facility] Demi duran 250 DO Work Phone: 85\S\85 Normal 70-100 [facility] Demi duran 250 DO Work Phone: Comment on above: Random Glucose Refer ence Range is dependent on time and content of last meal. Glucose of more than 200 mg/dL in a nonstressed, ambulatory subject supports the diagnosis of Diabetes Mellitus. ADA recommended reference range 19\S\19 Normal 13-39 -[facility] Demi roger 250 DO Work Phone: 13\S\13 Normal 7-52 [facility] [employer] roger 250 DO Work Phone: 4.1\S\4.1 Normal <5.0 [facility] roger 250 DO Work Phone: Comment on above: PERFORMED BY:[place] [id number] [place], [place] [id number] MEDICAL DIRECTORBLAKE SMART M.D. 30\S\30 Normal [facility] roger 250 DO Work Phone: 153\S\153 above high threshold 0-149 [facility] roger 250 DO Work Phone: Comment on above: TRIG ATP III CLASSIF ICATION TRIG less than 150 mg/dL Normal TRIG 150-199 mg/dL Borderline high TRIG 200-500 mg/dL High TRIG greater than 500 mg/dL Very high Standard traceable to the Center for Disease Conrtrol and Prevention (CDC) test method. 54\S\54 Normal 23-92 [facility] roger 250 DO Work Phone: Comment on above: HDL CHOL ATP-III CLA SSIFICATION Cardiovascular Risk HDL > or equal to 60 mg/dL LOW HDL < 40 mg/dL HIGH Nucleated erythrocytes [Pres ence] in Blood by Automated countOrdered By: Jay Jay Pisano on 07-14-2023 Nucleated RBC Auto Ql (Bld) 0.1 /100{WBC} 0-0.5 [facility] Platelet mean volume Auto (B ld) [Entitic vol]Ordered By: JayJ ay Pisano on 07-14-2023 Platelet mean volume (Bld) [Entitic vol] 9.3 fL 6.3-10.7 [facility] Platelets Auto (Bld) [#/Vol] Ordered By: Jay Jay Pisano on 07-14-2023 Platelets (Bld) [#/Vol] 189 10*3/uL 150-450 [facility] Potassium [Moles/volume] in Serum or PlasmaOrdered By: Jay Jay Pisano on 07-14-2023 Potassium [Moles/Vol] 4.6 mmol/L 3.5-5.1 [facility] RBC Auto (Bld) [#/Vol]Ordere d By: Jay Jay Pisano on 07-14-2023 RBC (Bld) [#/Vol] 4.46 10*6/uL 3.60-5.00 [facility] Serum or plasma anion gap de terminationOrdered By: Jay Jay Pisano on 07-14-2023 Anion gap [Moles/Vol] 8.8 mmol/L 6.0-15.0 [facility] Serum or plasma high density lipoprotein (HDL) cholesterol measurementOrdered By: Jay Jay Pisano on 07-14-2023 Cholesterol in HDL [Mass/Vol] 54 mg/dL 23- [facility] Comment on above: HDL CHOL ATP-III CLA SSIFICATION Cardiovascular RiskHDL > or equal to 60 mg/dL LOWHDL < 40 mg/dL HIGH Serum or plasma total choles terol/high density lipoprotein (HDL) cholesterol mass ratOrdered By: Jay Jay Pisano on 07-14-2023 Cholesterol.total/Ch olesterol in HDL [Mass ratio] 4.1 {ratio} <5.0 [facility] Sodium [Moles/volume] in Ser um or PlasmaOrdered By: Jay Jay Pisano on 07-14-2023 Sodium [Moles/Vol] 141 mmol/L 136-145 [facility] Triglyceride [Mass/volume] i n Serum or PlasmaOrdered By: Jay Jay Pisano on 07-14-2023 Triglyceride [Mass/Vol] 153 mg/dL 0-149 [facility] Comment on above: TRIG ATP III CLASSIF ICATIONTRIG less than 150 mg/dL NormalTRIG 150-199 mg/dL Borderline highTRIG 200-500 mg/dL High TRIG greater than 500 mg/dL Very highStandard traceable to the Center for Disease Conrtrol and Prevention (CDC) test method. Urea nitrogen [Mass/volume] in Serum or PlasmaOrdered By: Jay Jay Pisano on 07-14-2023 Urea nitrogen [Mass/Vol] 16 mg/dL 7-25 [facility] WBC Auto (Bld) [#/Vol]Ordere d By: Jay Jay Pisano on 07-14-2023 WBC (Bld) [#/Vol] 4.3 10*3/uL 3.8-11.6 [facility] Pre-Certification Formon Pre-Certification Form [phone] [id number]:127 Normal [facility] Patient Educationon 06-29-20 23 Patient Education [...] oz glass (more content not included)... Normal [facility] PAP ACOG PANEL 2: 30 to 65on 04-10-2023 . . Normal [facility] Comment on above: Performed By: #### [id number] #### [facility] [address] [place] [address] Dr. Mal Cuenca Age Gdln ACOG Testing Comment [facility] Comment on above: Result Comment: <21 or >65 or no age provided Performed By: #### [id number] #### [facility] [address] [place] [address] Dr. Mal Cuenca DIAGNOSIS: Comment [facility] Comment on above: Result Comment: UNSA TISFACTORY FOR EVALUATION. Performed By: #### [id number] #### [facility] [address] [place] [address] Dr. Mal Cuenca Methodology: Comment [facility] Comment on above: Result Comment: This liquid based ThinPrep(R) pap test was screened with the use of an image guided system. Performed By: #### 4 [id number] #### [facility] [address] [place] [address] Dr. Mal Cuenca Note: Comment [facility] Comment on above: Result Comment: The Pap smear is a screening test designed to aid in the detection of premalignant and malignant conditions of the uterine cervix. It is not a diagnostic procedure and should not be used as the sole means of detecting cervical cancer. Both false-positive and false-negative reports do occur. . Performed By: #### [id number] #### [facility] [address] [address] [address] Mal Cuenca Performed by: Comment Normal [facility] Comment on above: Result Comment: Odalis Cook, Chief Radiology (ASCP) Performed By: #### 4 [id number] #### [facility] [address] [address] [address] Mal Cuenca QC reviewed by: Comment Normal [facility] Comment on above: Result Comment: Marcelo Webb, Supervisory Chief Radiology (ASCP) Performed By: #### 4 [id number] #### [facility] [address] [address] [address] Mal Cuenca Recommendation: Comment Normal [facility] Comment on above: Result Comment: Sugg est follow up as clinically appropriate. Performed By: #### 4 [id number] #### [facility] [address] [place] [address] Dr. Mal Cuenca Specimen adequacy: Comment Normal [facility] Comment on above: Result Comment: Spec imen processed and examined, but unsatisfactory for evaluation of epithelial abnormality because of excessive lubricant. Performed By: #### 4 [id number] #### [facility] [address] [place] [address] Dr. Mal Cuenca US PELVIS AND TRANSVAGon [...] by: IDALIA GUEVARA Date: 2023-03-05 14:11 Normal [facility] CHEMISTRYOrdered By: SYSTEM SYSTEM on 2023 25-hydroxyvitamin D3 [Mass/Vol] 45.7 ng/mL Normal 30.0 - 100.0 ng/mL [facility] Remisol US BREAST ANDREW LIMITEDon 01-0 US BREAST ANDREW LIMITED Patient: KERMIT ROSEN Exam Date: 12/06/2022 : 1950 Gender:F Ordering : DR DANNY SANTILLAN . Admission #: [id number] Family : Order #: [id number] CLICK HERE TO VIEW EXAM RADIOLOGY REPORT [...] Guevara M.D. on 12/06/2022 at 14:43 Normal [facility] CHEMISTRYOrdered By: SYSTEM SYSTEM on 09-12-2022 25-hydroxyvitamin [...] [Vol rate/Area] mL/min/1.73 m2 Normal >=59mL/min/1.73 m2 [facility] Chem S GFR/1.73 sq M.predicted among non-blacks MDRD (S/P/Bld) [Vol rate/Area] mL/min/1.73 m2 Normal >=59mL/min/1.73 m2 [facility] Chem S Glucose [Mass/Vol] 101 mg/dL Normal [...] 14.3 g/dL Normal 12.0 - 16.0 gm/dL [facility] HemeAutoSS MCH (RBC) [Entitic mass] 31.4 pg [...] 07-12-2022 Cholesterol [Mass/Vol] 129 mg/dL Normal <=129 [facility] [employer] 600 DO Work Phone: Cholesterol in LDL [Mass/Vol] 31 mg/dL Normal 7-40 [facility] [employer] 600 DO Work Phone: Laboratory - Chemistry and C hemistry - challengeOrdered By: SYSTEM SYSTEM on 07-12-2022 Cholesterol [Mass/Vol] 205 mg/dL High 120 - 200 mg/dL [facility] Remisol CO2 [Moles/Vol] 30 mmol/L Normal 21 - 31 mmol/L [facility] Remisol Laboratory - Hematology and Cell countsOrdered By: Opal Castro on 07-12-2022 Erythrocyte distribution width (RBC) [Ratio] 13.1 % Normal 10.9 - 14.2 % [facility] HemeAutoSS Hematocrit (Bld) [Volume fraction] 41.1 % Normal 34.0 - 46.0 % [facility] HemeAutoSS Platelet mean volume (Bld) [Entitic vol] 8.9 fL Normal 6.4 - 10.8 fL [facility] HemeAutoSS No Panel Informationon 07-12 207.0 {E9/L} Normal 150.0-500.0 [facility] [employer] 600 DO Work Phone: 90.3 fL Normal 80.0-100.0 [facility] 600 [facility] Work Phone: 34.8 {gm/dL} Normal 31.4-36.0 [facility] 600 DO Work Phone: [phone] 31.4 pg Normal 27.0-34.0 [facility] DO Work Phone: 14.3 {gm/dL} Normal 12.0-16.0 [facility] DO Work Phone: [phone] 4.6 {E12/L} Normal 4.3-5.9 [facility] DO Work Phone: 3.7 {E9/L} below low threshold 4.0-11.0 [facility] 600 DO Work Phone: 9 {mEq/L} Normal 6-16 [facility] 600 DO Work Phone: 103 mmol/L Normal 101-111 [facility] 600 DO Work Phone: 4.1 mmol/L Normal 3.5-5.3 [facility] DO Work Phone: 138 mmol/L Normal 135-145 [facility] DO Work Phone: 9.5 mg/dL Normal 8.9-11.1 [facility] 600 DO Work Phone: 24 {No_Units} above high threshold 10-20 [facility] 600 DO Work Phone: 0.8 mg/dL Normal 0.5-1.3 [facility] 600 DO Work Phone: 19 mg/dL Normal 5-21 [facility] julee 600 DO Work Phone: 101 mg/dL Normal 55-199 [facility] 600 DO Work Phone: Comment on above: If this glucose resu lt represents a fasting glucose, interpretation should refer to the following reference range: 55-99 mg/dL >60 Normal >=59 [facility] lk 600 DO Work Phone: Comment on above: eGFR is race adjuste d. AA=. Chronic kidney disea se could be indicated at eGFR's of less than 60 mL/min/1.73m2. Kidney failure is indicated at less than 15 mL/min/1.73m2. 17 {Int._Unit/L} Normal 6-46 [facility] 600 DO Work Phone: 21 {Int._Unit/L} Normal 5-43 [facility] 600 DO Work Phone: 157 mg/dL above high threshold <=149 [facility] 600 DO Work Phone: 55 mg/dL [facility] 600 DO Work Phone: Comment on above: HDL > or equal to 60 mg/dL: Low cardiovascular riskHDL < 40 mg/dL : High cardiovascular risk PAP ACOG PANEL 2: 30 to 65on 04-23-2022 . . Normal [facility] Comment on above: Performed By: #### [id number] #### [facility] [address] [address] [address] Mal Cuenca Age Gdln ACOG Testing Comment [facility] Comment on above: Result Comment: <21 or >65 or no age provided Performed By: #### 4 [id number] #### [facility] [address] [address] [address] Mal Cuenca DIAGNOSIS: Comment [facility] Comment on above: Result Comment: NEGA TIVE FOR INTRAEPITHELIAL LESION OR MALIGNANCY. Performed By: #### 4 [id number] #### [facility] [address] [address] [address] Mal Cuenca Methodology: Comment [facility] Comment on above: Result Comment: This liquid based ThinPrep(R) pap test was screened with the use of an image guided system. Performed By: #### 4 [id number] #### [facility] [address] [place] [address] Dr. Mal Cuenca Note: Comment Normal [facility] Comment on above: Result Comment: The Pap smear is a screening test designed to aid in the detection of premalignant and malignant conditions of the uterine cervix. It is not a diagnostic procedure and should not be used as the sole means of detecting cervical cancer. Both false-positive and false-negative reports do occur. . Performed By: #### 4 [id number] #### [facility] [address] [place] [address] Dr. Mal Cuenca Performed by: Comment Normal [facility] Comment on above: Result Comment: Nora Canales, Chief Radiology (ASCP) Performed By: #### 4 [id number] #### [facility] [address] [place] [address] Dr. Mal Cuenca Specimen adequacy: Comment Normal [facility] Comment on above: Result Comment: Sati sfactory for evaluation. Endocervical and/or squamous metaplastic cells (endocervical component) are present. Performed By: #### 4 [id number] #### [facility] [address] [place] [address] Dr. Mal Cuenca Falls Risk Screening 10-11 Fall risk assessment b) One or more falls in the last year [facility] [employer] DO Work Phone: Tobacco use status [facility] b) No [facility] [employer] 250 DO Work Phone: CNPNon 04-13-2021 CNPN Telephone (CHRIS) ---- KERMIT ROSEN ([id number]) 1950 F Date Time Provider Department 04/13/21 [...] Take 20 mg by mouth twice abdirahman* [employer] THYROID 30 MG TABLET Take 30 mg [...] by GOGO EVANS MA on 04/13/21 Normal [facility] YOSELIN by IFA w/Reflexon 2020 YOSELIN Pattern Negative Normal [facility] Comment on above: Performed By: #### C CP, CRP, WSR, RF, ANAIFR #### [address] [address] [place] [address] YOSELIN Titer Negative Normal Negative [facility] Comment on above: Result Comment: Norm al range : negative at <1:80 serum dilution. Performed By: #### C CP, CRP, WSR, RF, ANAIFR #### [facility] [address] [place], [place] [id number] Nuclear Ab IF (S) [Titer] Negative Normal Negative [facility] Comment on above: Result Comment: Norm al range : negative at <1:80 serum dilution. Approximately 6% of patients with connective tissue diseases with low positive EIA values are negative by IFA. Recommend follow-up with specific antinuclear antibodies if clinically indicated. Test performed using Indirect Fluorescence Immunoassay technology (IFA) using HEp-2 cells. Performed By: #### C CP, CRP, WSR, RF, ANAIFR #### [facility] [employer] [address] [id number] C-Reactive Proteinon 021 CRP [Mass/Vol] mg/L Normal <0.9 [facility] Comment on above: Performed By: #### C CP, CRP, WSR, RF, ANAIFR #### [facility] [address] [place], [place] [address] CCP Antibody, IgGon 04-09-20 21 CCP Antibody, IgG <15 Normal <20 [facility] Comment on above: Result Comment: < 20 units: Negative 20-39 units: Weak Positive 40-59 units: Moderate Positive > 60 units: Strong Positive The following results were obtained with the [employer] QUANTA Lite CCP3 IgG MATT. Anti-CCP values obtained with different manufacturers' assay methods may not be used interchangeably. The magnitude of the reported IgG levels cannot be correlated to an endpoint titer. Performed By: #### C CP, CRP, WSR, RF, ANAIFR #### [facility] [address] [place], [place] [address] CNOVon 04-09-2021 CNOV Office Visit (CHRIS) ---- BETYKERMIT Allen ([id number]) 1950 F Date Time Provider Department 04/09/21 [...] Cristin Roblero CNP [address] [facility] [address] PRIMARY CARE PHYSICIAN: Cristin Roblero CNP, CUSTODIAL MANAGER Patient's Name: Kermit Rosen 1950 [address] [facility] [address] Accompanied by: self This consult was requested for my medical opinion regarding the rheumatologic evaluation of the patient's +YOSELIN problems, and my final recommendations will be communicated to the requesting health care provider by way of the shared medical record for internal providers or letter via the [employer] for external providers. April 09, [...] or urethritis: no Renal/liver disease: kidney stone [employer] T[employer] BUILDER/PNS/sz/cva/canc er disease: R breast cancer HEME-Cytopenias/LAD /Clots: [...] Citalopram Hydrobromi (more content not included)... Normal [facility] Rheumatoid Factoron 04-09-20 21 Rheumatoid Factor <10 Normal <16 [facility] Comment on above: Performed By: #### C CP, CRP, WSR, RF, ANAIFR #### [facility] [address] [place], [place] [address] Sed Rate Westergrenon 2020 Sed Rate Westergren 2 mm/hr Normal 0-20 [facility] Comment on above: Performed By: #### C CP, CRP, WSR, RF, ANAIFR #### [facility] [address] [place], [place] [address] XR HAND 3V PA/LAT/OBL BILon 04-09-2021 XR [...] IMPRESSION: Mild interphalangeal degenerative changes and osteopenia. Glass Vial Filler: VANNESA Transcribe Date/Time: Apr 09 2021 6:14P Dictated by : MARCELLO VALLEJO MD This examination was interpreted and the report reviewed and electronically signed by: MARCELLO VALLEJO MD on Apr 09 2021 6:15PM EST [id number] ACN Normal [facility] XR HAND GENERAL 3V PA/LAT/OB L BILATon 04-09-2021 [facility] CREATININEon 11-08-2019 Creatinine [Mass/Vol] 0.78 mg/dL Normal 0.50 - 1.05 [facility] Comment on above: Performed By: #### C REAT #### [facility] [address] [place] [address] Creatinine [Mass/Vol] mg/dL Normal >60 [facility] Comment on above: Performed By: #### C REAT #### [address] [address] Result Comment: CALC ULATIONS OF ESTIMATED GFR ARE PERFORMED USING THE MDRD STUDY EQUATION FOR THE IDMS-TRACEABLE CREATININE METHODS. CLIN CHEM 2007;53:766-72 ELECTROLYTE PANELon 11-08-20 19 Anion gap [Moles/Vol] 13 mmol/L Normal 10 - 20 [facility] Comment on above: Performed By: #### E LECT #### [address] [address] Chloride [Moles/Vol] 106 mmol/L Normal 98 - 107 [facility] Comment on above: Performed By: #### E LECT #### [address] [address] HCO3 (Bld) [Moles/Vol] 26 mmol/L Normal 21 - 32 [facility] Comment on above: Performed By: #### E LECT #### [address] [address] Potassium [Moles/Vol] 4.0 mmol/L Normal 3.5 - 5.3 [facility] Comment on above: Performed By: #### E LECT #### [address] [address] Sodium [Moles/Vol] 141 mmol/L Normal 136 - 145 [facility] Comment on above: Performed By: #### E LECT #### [address] [address] UREA NITROGENon 11-08-2019 Urea nitrogen [Mass/Vol] 20 mg/dL Normal 6 - 23 [facility] Comment on above: Performed By: #### U KUSUM #### [address] [address] OVER READ - NCon 09-08-2017 OVER READ [...] nodule.This interpretation, provided by the radiologists of [facility], excludes evaluation of the cardiovascular system, which iscovered in a separate report issued by the ordering cardiologists. The radiologists of [facility] have no responsibilityfor evaluating the structures of the cardiovascular system.*Follow-up recommendations according to the Fleischner Society Criteria (Ying Tamayo, Guidelines for management of small pulmonary nodules detected on CT scans: A statement from the [facility], Rad[facility] 237: [phone].):<=4 mm:Low Risk Patient (Minimal or no smoking [...] 24 months, or PET and/or biopsy.. Normal [facility] Healthcare Vital Signs Date Time Vital Sign Value Performing Clinician Levi chavez 11-18-2024 17:10-0500 Body height 154.9 cm Norma Dolce DPM FACFAS Work Phone: [facility] 11-18-2024 17:10-0500 Body mass index (BMI) [Ratio] 23.62 kg/m2 Norma Dolce DPM FACFAS Work Phone: [facility] 11-18-2024 17:10-0500 Body weight 56.7 kg Norma Dolce DPM FACFAS Work Phone: [facility] 11-18-2024 17:10-0500 Diastolic blood pressure 77 mm[Hg] Norma Dolce DPM FACFAS Work Phone: [facility] 11-18-2024 17:10-0500 Heart rate 72 /min Norma Dolce DPM FACFAS Work Phone: [facility] 11-18-2024 17:10-0500 Systolic blood pressure 126 mm[Hg] Norma Dolce DPM FACFAS Work Phone: [facility] 11-17-2024 10:36-0500 Body mass index (BMI) [Ratio] 23.62 kg/m2 Taniya CORTEZ Work Phone: [facility] 11-17-2024 10:36-0500 Body weight 56.7 kg Taniya CORTEZ Work Phone: [facility] 11-17-2024 10:36-0500 Diastolic blood pressure 78 mm[Hg] Taniya CORTEZ Work Phone: [facility] 11-17-2024 10:36-0500 Systolic blood pressure 124 mm[Hg] Taniya CORTEZ Work Phone: [facility] 11-12-2024 10:47-0500 Diastolic blood pressure 82 mm[Hg] Singh Sellers [facility] 11-12-2024 10:47-0500 Heart rate 59 /min Singh Sellers [facility] 11-12-2024 10:47-0500 Systolic blood pressure 181 mm[Hg] Singh Sellers [facility] 10-15-2024 10:04-0500 Blood Pressure Location Vilma Mcallister [facility] 10-15-2024 10:04-0500 Body temperature 100.4 [degF] Vilma Mcallister [facility] 10-15-2024 10:04-0500 Diastolic blood pressure 62 mm[Hg] Vilma Mcallister [facility] 10-15-2024 10:04-0500 Heart rate 83 /min Vilma Mcallister [facility] 10-15-2024 10:04-0500 Respiratory rate 16 /min Vilma Mcallister [facility] 10-15-2024 10:04-0500 SaO2% (BldA) [Mass fraction] 93 % Vilma Mcallister [facility] 10-15-2024 10:04-0500 Systolic blood pressure 118 mm[Hg] Vilma Mcallister [facility] 10-11-2024 13:32-0500 Body height 154.9 cm Jay Jay Pisano MD Work Phone: [facility] 10-11-2024 13:32-0500 Body mass index (BMI) [Ratio] 23.13 kg/m2 Jay Jay Pisano MD Work Phone: [facility] 10-11-2024 13:32-0500 Body weight 55.52 kg Jay Jay Pisano MD Work Phone: [facility] 10-11-2024 13:32-0500 Diastolic blood pressure 68 mm[Hg] Jay Jay Pisano MD Work Phone: [facility] 10-11-2024 13:32-0500 Heart rate 76 /min Jay Jay Pisano MD Work Phone: [facility] 10-11-2024 13:32-0500 Systolic blood pressure 116 mm[Hg] Jay Jay Pisano MD Work Phone: [facility] 08-25-2024 11:06-0400 Body mass index (BMI) [Ratio] 23.24 kg/m2 Ryley Isis DO Work Phone: [facility] 08-25-2024 11:06-0400 Body weight 55.79 kg Ryley Isis DO Work Phone: [facility] 08-25-2024 11:06-0400 Diastolic blood pressure 78 mm[Hg] Ryley Isis DO Work Phone: [facility] 08-25-2024 11:06-0400 Systolic blood pressure 124 mm[Hg] Ryley Isis DO Work Phone: [facility] 07-09-2024 09:38-0400 Blood Pressure Location Vilma Mcallister [facility] 07-09-2024 09:38-0400 Body temperature 97.52 [degF] Vilma Mcallister [facility] 07-09-2024 09:38-0400 Diastolic blood pressure 84 mm[Hg] Vilma Mcallister [facility] 07-09-2024 09:38-0400 Heart rate 65 /min Vilma Mcallister [facility] 07-09-2024 09:38-0400 Respiratory rate 20 /min Vilma Mcallister [facility] 07-09-2024 09:38-0400 SaO2% (BldA) [Mass fraction] 100 % Vilma Mcallister [facility] 07-09-2024 09:38-0400 Systolic blood pressure 132 mm[Hg] Vilma Mcallister [facility] 05-26-2024 11:55-0400 Blood Pressure Location Vilma Mcallister [facility] 05-26-2024 11:55-0400 Body temperature 98.06 [degF] Vilma Mcallister [facility] 05-26-2024 11:55-0400 Diastolic blood pressure 64 mm[Hg] Vilma Mcallister [facility] 05-26-2024 11:55-0400 Heart rate 62 /min Vilma Mcallister [facility] 05-26-2024 11:55-0400 Respiratory rate 18 /min Vilma Mcallister [facility] 05-26-2024 11:55-0400 SaO2% (BldA) [Mass fraction] 96 % Vilma Mcallister [facility] 05-26-2024 11:55-0400 Systolic blood pressure 132 mm[Hg] Vilma Mcallister [facility] 05-26-2024 11:07-0400 Blood Pressure Location Vilma Mcallister [facility] 05-26-2024 11:07-0400 Diastolic blood pressure 64 mm[Hg] Vilma Mcallister [facility] 05-26-2024 11:07-0400 Heart rate 62 /min Vilma Mcallister [facility] 05-26-2024 11:07-0400 Respiratory rate 16 /min Vilma Mcallister [facility] 05-26-2024 11:07-0400 SaO2% (BldA) [Mass fraction] 96 % Vilma Mcallister [facility] 05-26-2024 11:07-0400 Systolic blood pressure 132 mm[Hg] Vilma Mcallister [facility] 05-12-2024 14:51-0400 Blood Pressure Location Vilma Mcallister [facility] 05-12-2024 14:51-0400 Body temperature 98.06 [degF] Vilma Mcallister [facility] 05-12-2024 14:51-0400 Diastolic blood pressure 78 mm[Hg] Vilma Mcallister [facility] 05-12-2024 14:51-0400 Heart rate 65 /min Vilma Mcallister [facility] 05-12-2024 14:51-0400 Respiratory rate 18 /min Vilma Mcallister [facility] 05-12-2024 14:51-0400 SaO2% (BldA) [Mass fraction] 98 % Vilma Mcallister [facility] 05-12-2024 14:51-0400 Systolic blood pressure 130 mm[Hg] Vilma Mcallister [facility] 05-06-2024 15:09-0400 Blood Pressure Location SY HICKS [facility] 05-06-2024 15:09-0400 Body temperature 98.24 [degF] SY HICKS [facility] 05-06-2024 15:09-0400 Diastolic blood pressure 72 mm[Hg] SY HICKS [facility] 05-06-2024 15:09-0400 Heart rate 83 /min SY HICKS [facility] 05-06-2024 15:09-0400 SaO2% (BldA) [Mass fraction] 95 % SY HICKS [facility] 05-06-2024 15:09-0400 Systolic blood pressure 126 mm[Hg] SY HICKS [facility] 04-14-2024 10:30-0400 Diastolic blood pressure 80 mm[Hg] Vilma Mcallister [facility] 04-14-2024 10:30-0400 Mean blood pressure 93 mm[Hg] Vilma Mcallister [facility] 04-14-2024 10:30-0400 Systolic blood pressure 120 mm[Hg] Vilma Mcallister [facility] 04-14-2024 09:37-0400 Blood Pressure Location Vilma Mcallister [facility] 04-14-2024 09:37-0400 Body temperature 97.7 [degF] Vilma Mcallister [facility] 04-14-2024 09:37-0400 Diastolic blood pressure 68 mm[Hg] Vilma Mcallister [facility] 04-14-2024 09:37-0400 Heart rate 60 /min Vilma Mcallister [facility] 04-14-2024 09:37-0400 Respiratory rate 18 /min Vilma Mcallister [facility] 04-14-2024 09:37-0400 SaO2% (BldA) [Mass fraction] 97 % Vilma Mcallister [facility] 04-14-2024 09:37-0400 Systolic blood pressure 140 mm[Hg] Vilma Mcallister [facility] 02-06-2024 10:39-0500 Blood Pressure Location Vilma Mcallister [facility] 02-06-2024 10:39-0500 Body temperature 97.52 [degF] Vilma Mcallister [facility] 02-06-2024 10:39-0500 Diastolic blood pressure 70 mm[Hg] Vilma Mcallister [facility] 02-06-2024 10:39-0500 Heart rate 67 /min Vilma Mcallister [facility] 02-06-2024 10:39-0500 Respiratory rate 18 /min Vilma Mcallister [facility] 02-06-2024 10:39-0500 SaO2% (BldA) [Mass fraction] 98 % Vilma Mcallister [facility] 02-06-2024 10:39-0500 Systolic blood pressure 130 mm[Hg] Vilma Mcallister [facility] 01-15-2024 17:18-0500 Blood Pressure Location Vilma Mcallister [facility] 01-15-2024 17:18-0500 Body temperature 97.88 [degF] Vilma Mcallister [facility] 01-15-2024 17:18-0500 Diastolic blood pressure 80 mm[Hg] Vilma Mcallister [facility] 01-15-2024 17:18-0500 Heart rate 63 /min Vilma Mcallister [facility] 01-15-2024 17:18-0500 SaO2% (BldA) [Mass fraction] 961 % Vilma Mcallister [facility] 01-15-2024 17:18-0500 Systolic blood pressure 138 mm[Hg] Vilma Mcallister [facility] 10-30-2023 09:38-0500 Blood Pressure Location Vilma Mcallister [facility] 10-30-2023 09:38-0500 Diastolic blood pressure 84 mm[Hg] Vilma Mcallister [facility] 10-30-2023 09:38-0500 Heart rate 64 /min Vilma Mcallister [facility] 10-30-2023 09:38-0500 Respiratory rate 18 /min Vilma Mcallister [facility] 10-30-2023 09:38-0500 SaO2% (BldA) [Mass fraction] 98 % Vilma Mcallister [facility] 10-30-2023 09:38-0500 Systolic blood pressure 136 mm[Hg] Vilma Mcallister [facility] 09-26-2023 09:36-0400 Blood Pressure Location Vilma Mcallister [facility] 09-26-2023 09:36-0400 Diastolic blood pressure 86 mm[Hg] Vilma Mcallister [facility] 09-26-2023 09:36-0400 Heart rate 65 /min Vilma Mcallister [facility] 09-26-2023 09:36-0400 SaO2% (BldA) [Mass fraction] 98 % Vilmadarrin Mcallister [facility] 09-26-2023 09:36-0400 Systolic blood pressure 120 mm[Hg] Vilma Mcallister [facility] 08-19-2023 11:40-0400 Diastolic blood pressure 78 mm[Hg] Camryn De La Rosa [facility] 08-19-2023 11:40-0400 Mean blood pressure 96 mm[Hg] Camryn Missler [facility] 08-19-2023 11:40-0400 Systolic blood pressure 132 mm[Hg] Camryn Missler [facility] 08-19-2023 10:58-0400 Blood Pressure Location Camryn Missler [facility] 08-19-2023 10:58-0400 Body temperature 97.88 [degF] Camryn Missler [facility] 08-19-2023 10:58-0400 Diastolic blood pressure 88 mm[Hg] Camryn Missler [facility] 08-19-2023 10:58-0400 Heart rate 71 /min Camryn De La Rosa [facility] 08-19-2023 10:58-0400 SaO2% (BldA) [Mass fraction] 95 % Camryn De La Rosa [facility] 08-19-2023 10:58-0400 Systolic blood pressure 160 mm[Hg] Camryn De La Rosa [facility] 07-15-2023 11:07-0400 Diastolic blood pressure 80 mm[Hg] Camryn Kwokler Work Phone: [facility] DO Work Phone: 07-15-2023 11:07-0400 Systolic blood pressure 170 mm[Hg] Camryn Kwokler Work Phone: [facility] DO Work Phone: 07-15-2023 10:54-0400 Body height 154.94 cm Camryn Kwokler Work Phone: [facility] [address] DO Work Phone: 07-15-2023 10:54-0400 Body mass index (BMI) [Ratio] 24.22 kg/m2 Camryn Kwokler Work Phone: [facility] [address] DO Work Phone: 07-15-2023 10:54-0400 Body surface area Derived from formula 1.56 m2 Camryn Kwokler Work Phone: [facility] [address] DO Work Phone: 07-15-2023 10:54-0400 Body weight 58.15 kg Camryn Marin Missler Work Phone: [facility] DO Work Phone: 07-15-2023 10:54-0400 Diastolic blood pressure 80 mm[Hg] Camryn Kwokler Work Phone: [facility] DO Work Phone: 07-15-2023 10:54-0400 Heart rate 60 /min Camryn Kwokler Work Phone: [facility] DO Work Phone: 07-15-2023 10:54-0400 Systolic blood pressure 162 mm[Hg] Camryn Kwokler Work Phone: [facility] DO Work Phone: 12-17-2022 11:52-0500 Blood Pressure Location Malinda Klonk [facility] 12-17-2022 11:52-0500 Body temperature 96.98 [degF] Malinda Klonk [facility] 12-17-2022 11:52-0500 Diastolic blood pressure 76 mm[Hg] Malinda Klonk [facility] 12-17-2022 11:52-0500 Heart rate 66 /min Malinda Klonk [facility] 12-17-2022 11:52-0500 SaO2% (BldA) [Mass fraction] 94 % Malinda Klonk [facility] 12-17-2022 11:52-0500 Systolic blood pressure 140 mm[Hg] Malinda Klonk [facility] 09-24-2022 11:59-0400 Blood Pressure Location Malinda Klonk [facility] 09-24-2022 11:59-0400 Body temperature 98.78 [degF] Malinda Klonk [facility] 09-24-2022 11:59-0400 Diastolic blood pressure 82 mm[Hg] Malinda Klonk [facility] 09-24-2022 11:59-0400 Heart rate 63 /min Malinda Klonk [facility] 09-24-2022 11:59-0400 SaO2% (BldA) [Mass fraction] 94 % Malinda Klonk [facility] 09-24-2022 11:59-0400 Systolic blood pressure 142 mm[Hg] Malinda Klonk [facility] 09-12-2022 10:36-0400 Diastolic blood pressure 78 mm[Hg] Malinda Klonk [facility] 09-12-2022 10:36-0400 Mean blood pressure 98 mm[Hg] Malinda Klonk [facility] 09-12-2022 10:36-0400 Systolic blood pressure 138 mm[Hg] Malinda Klonk [facility] 09-12-2022 10:29-0400 Blood Pressure Location Malinda Klonk [facility] 09-12-2022 10:29-0400 Body temperature 99.32 [degF] Malinda Klonk [facility] 09-12-2022 10:29-0400 Diastolic blood pressure 80 mm[Hg] Malinda Klonk [facility] 09-12-2022 10:29-0400 Heart rate 73 /min Malinda Klonk [facility] 09-12-2022 10:29-0400 SaO2% (BldA) [Mass fraction] 95 % Malinda Klonk [facility] 09-12-2022 10:29-0400 Systolic blood pressure 142 mm[Hg] Malinda Rubio [facility] 10-11-2021 12:20-0500 Diastolic blood pressure 80 mm[Hg] Cristin Squires [place] Work Phone: [facility] DO Work Phone: 10-11-2021 12:20-0500 Systolic blood pressure 138 mm[Hg] Cristin Squires [place] Work Phone: [facility] DO Work Phone: 10-11-2021 11:52-0500 Body height 154.94 cm Cristin Murraydon Work Phone: [facility] DO Work Phone: 10-11-2021 11:52-0500 Body mass index (BMI) [Ratio] 23.43 kg/m2 Cristin Squires [place] Work Phone: [facility] DO Work Phone: 10-11-2021 11:52-0500 Body surface area Derived from formula 1.54 m2 Cristin Murraydon Work Phone: [facility] DO Work Phone: 10-11-2021 11:52-0500 Body weight 56.25 kg Cristin Murraydon Work Phone: [facility] DO Work Phone: 10-11-2021 11:52-0500 Diastolic blood pressure 86 mm[Hg] Cristin Squires [place] Work Phone: [facility] DO Work Phone: 10-11-2021 11:52-0500 Heart rate 60 /min Cristin M Beldon Work Phone: [facility] DO Work Phone: 10-11-2021 11:52-0500 Systolic blood pressure 152 mm[Hg] Cristin Roblero Work Phone: [facility] DO Work Phone: Encounters Encounter Date Encounter Type Care Provider Facility Start: 11-18-2024 End: 11-18-2024 Office outpatient visit 15 minutes Norma R Dolce DPM FACFAS Work Phone: [facility] Comment on above: Neoplasm of uncertai n behavior of skin (Primary Dx); Plantar verruca; Pain in right foot; Pain in left foot Start: 11-18-2024 End: 11-18-2024 ambulatory NORMA R DOLCE Not Available Start: 11-18-2024 End: 11-18-2024 Bamboo flowsheet Norma R Dolce DPM FACFAS Work Phone: [facility] Start: 11-18-2024 End: 11-18-2024 Bamboo flowsheet Norma R Dolce DPM FACFAS Work Phone: [facility] Start: 11-17-2024 End: 11-17-2024 Bamboo flowsheet Taniya CORTEZ Work Phone: [facility] Start: 11-17-2024 End: 11-17-2024 Bamboo flowsheet Taniya CORTEZ Work Phone: [facility] Start: 11-17-2024 End: 11-17-2024 Postop follow up visit related to original px Taniya CORTEZ Work Phone: [facility] Comment on above: Postoperative visit; S/P D&C (status post dilation and curettage) Start: 11-17-2024 End: 11-17-2024 ambulatory TANIYA FREY Not Available Start: 11-12-2024 End: 11-12-2024 ambulatory Vilma Mcallister Facility:[facility] Start: 11-12-2024 End: 11-12-2024 Patient encounter procedure Singh Sellers [facility] [place] Start: 11-05-2024 End: 11-05-2024 Clinisync Result Encounter Ryley Isis DO Work Phone: [facility] Unsolicited Start: 11-05-2024 End: 11-05-2024 Clinisync Result Encounter Ryley Isis DO Work Phone: [facility] Unsolicited Start: 11-05-2024 End: 11-05-2024 ambulatory Ryley Isis Facility:[facility] Start: 11-03-2024 ambulatory Vilma Philippe ity:[facility] Start: 10-29-2024 End: 10-29-2024 Clinisync Result Encounter Ryley Isis DO Work Phone: [facility] Unsolicited Start: 10-29-2024 End: 10-29-2024 Clinisync Result Encounter Ryley Isis DO Work Phone: [facility] Unsolicited Start: 10-15-2024 End: 10-15-2024 ambulatory Vilma Mcallister Facility:[facility] Start: 10-15-2024 End: 10-15-2024 Patient encounter procedure Vilma Mcallister [facility] Start: 10-11-2024 End: 10-11-2024 Office outpatient visit 25 minutes Jay Jay Pisano MD Work Phone: [facility] Comment on above: Coronary artery dise ase, non-occlusive; Dyslipidemia; Essential hypertension; Mitral valve insufficiency, unspecified etiology; Hypothyroidism, unspecified type; BMI 23.0-23.9, adult; Never smoked tobacco Start: 10-11-2024 End: 10-11-2024 ambulatory JAY JAY PISANO [facility] Start: 10-06-2024 End: 10-06-2024 ambulatory Vilma Mcallister Facility:[place] Start: 10-06-2024 End: 10-06-2024 Patient encounter procedure Vilma Mcallister [facility] Start: 09-10-2024 End: 09-10-2024 Clinisync Result Encounter Ryley Isis DO Work Phone: [facility] Unsolicited Start: 09-10-2024 End: 09-10-2024 Clinisync Result Encounter Ryley Isis DO Work Phone: [facility] Unsolicited Start: 08-25-2024 End: 08-25-2024 Bamboo flowsheet Ryley Isis DO Work Phone: [facility] Start: 08-25-2024 End: 08-25-2024 Bamboo flowsheet Ryley Isis DO Work Phone: [facility] Start: 08-25-2024 End: 08-25-2024 Office outpatient visit 15 minutes Ryley Isis DO Work Phone: [facility] Comment on above: Pre-op examination; Thickened endometrium; Endometrial mass Start: 08-25-2024 End: 08-25-2024 Preprocedural examination done Ryley Isis DO Work Phone: [facility] Start: 08-25-2024 End: 08-25-2024 ambulatory YRLEY ISIS Not Available Start: 07-09-2024 End: 07-09-2024 ambulatory Vilma Mcallister Facility:[facility] Start: 07-09-2024 End: 07-09-2024 Patient encounter procedure Vilma Mcallister [facility] Start: 06-30-2024 End: 06-30-2024 ambulatory TANIYA FREY Not Available Start: 05-26-2024 End: 05-26-2024 ambulatory Vilma Mcallister Facility:[place] Start: 05-26-2024 End: 05-26-2024 Patient encounter procedure Vilma Mcallister [facility] Start: 05-26-2024 End: 05-26-2024 Well adult monitoring check done Vilma Mcallister [facility] Start: 05-26-2024 End: 05-26-2024 ambulatory Vilma Mcallister Facility:[facility] Start: 05-26-2024 End: 05-26-2024 Patient encounter procedure Vilma Mcallister [facility] Start: 05-18-2024 End: 05-18-2024 ambulatory RYLEY ISIS Not Available Start: 05-13-2024 End: 05-13-2024 ambulatory Vilma Mcallister Facility:[facility] Start: 05-13-2024 End: 05-13-2024 Patient encounter procedure Vilma Mcallister [facility] Start: 05-12-2024 End: 05-12-2024 ambulatory Vilma Mcallister Facility:[place] Start: 05-12-2024 End: 05-12-2024 Patient encounter procedure Vilma Mcallister [facility] Start: 05-06-2024 End: 05-06-2024 ambulatory LINING CLEANER-C SY HICKS Facility:[facility] Start: 05-06-2024 End: 05-06-2024 Patient encounter procedure SY HICKS [facility] [place] Start: 04-14-2024 End: 04-14-2024 ambulatory Vilma Mcallister Facility:[facility] Start: 04-14-2024 End: 04-14-2024 Patient encounter procedure Vilma Mcallister [facility] Start: 03-10-2024 End: 03-10-2024 ambulatory Vilma Mcallister Facility:[facility] Start: 03-10-2024 End: 03-10-2024 Patient encounter procedure Vilma Mcallister [facility] Start: 02-06-2024 End: 02-06-2024 ambulatory Vilma Mcallister Facility:[facility] Start: 02-06-2024 End: 02-06-2024 Patient encounter procedure Vilma Mcallister [facility] Start: 02-03-2024 End: 02-03-2024 ambulatory Vilma Mcallister Facility:[facility] Start: 01-22-2024 End: 01-22-2024 ambulatory Vilma Mcallister Facility:[facility] Start: 01-22-2024 End: 01-22-2024 Patient encounter procedure Vilma Mcallister [facility] Start: 01-21-2024 End: 01-21-2024 ambulatory Vilma Mcallister Facility:[facility] Start: 01-21-2024 End: 01-21-2024 Patient encounter procedure Vilma Mcallister [facility] Start: 01-15-2024 End: 01-15-2024 ambulatory Vilma Mcallister Facility:[facility] Start: 01-15-2024 End: 01-15-2024 Patient encounter procedure Vilma Mcallister [facility] Start: 11-27-2023 End: 11-27-2023 ambulatory NORMA VARGAS Not Available Start: 11-04-2023 End: 11-04-2023 ambulatory [employer] FOUNDER AND CHAIRMAN-C Camryn De La Rosa Work Phone: [facility] Work Phone: Start: 11-04-2023 End: 11-04-2023 Patient encounter procedure [employer] FOUNDER AND CHAIRMAN-C Camryn De La Rosa Work Phone: [facility] [place] Work Phone: Start: 10-30-2023 End: 10-30-2023 ambulatory Vilma Mcallister Facility:[facility] Start: 10-30-2023 End: 10-30-2023 Patient encounter procedure Vilma Mcallitser [facility] Start: 10-18-2023 End: 10-18-2023 ambulatory Vilma Mcallister Facility:[facility] Start: 10-18-2023 End: 10-18-2023 Patient encounter procedure Vilma Mcallister [facility] Start: 09-26-2023 End: 09-26-2023 ambulatory Vilma Mcallister Facility:[facility] Start: 09-26-2023 End: 09-26-2023 Patient encounter procedure Vilma Mcallister [facility] Start: 09-26-2023 End: 09-26-2023 Well adult monitoring check done Vilma Mcallister [facility] Start: 09-22-2023 End: 09-22-2023 ambulatory LINING CLEANER-C Camrynrachel De La Rosa Facility:[facility] Start: 09-04-2023 End: 09-04-2023 ambulatory Vilma Mcallister Facility:[facility] Start: 08-27-2023 End: 08-27-2023 ambulatory LINING CLEANER-C Camryn De La Rosa Facility:[facility] Start: 08-19-2023 End: 08-19-2023 ambulatory LINING CLEANER-C Camryn De La Rosa Facility:[facility] Start: 08-19-2023 End: 08-19-2023 Patient encounter procedure Camryn De La Rosa [facility] Start: 08-19-2023 End: 08-19-2023 Well adult monitoring check done Camryn De La Rosa [facility] Start: 08-14-2023 ambulatory Scott Mayur. Spasic Fa cility:[facility] [place] Start: 07-16-2023 Chart Update Camryn marcial Work Phone: [facility] DO Work Phone: Start: 07-15-2023 ambulatory Ms. Camryn De La Rosa Facility: Start: 07-15-2023 Office outpatient vi sit 25 minutes Camryn De La Rosa Work Phone: [facility] DO Work Phone: Start: 07-14-2023 End: 07-14-2023 ambulatory [employer] FOUNDER AND CHAIRMAN-C Camryn De La Rosa Work Phone: [facility] Work Phone: Start: 07-14-2023 End: 07-14-2023 Patient encounter procedure CO FOUNDER AND CHAIRMAN-C Camryn De La Rosa Work Phone: [facility] [place] Work Phone: Start: 04-01-2023 End: 04-01-[address] DANNY SANTILLAN . Facility:[facility] Start: 03-05-2023 End: 03-06-[address] DANNY SANTILLAN . Facility:[facility] Start: 02-12-2023 Rx Renewal Cristin Roblero Work Phone: [facility] DO Work Phone: Start: 01-28-2023 End: 01-28-2023 Patient encounter procedure Cory JOSHUA [facility] [place] Start: 01-21-2023 End: 01-21-2023 Patient encounter procedure Cory JOSHUA [facility] Start: 2023 End: 2023 Patient encounter procedure Malinda Rubio [facility] Start: 12-17-2022 End: 12-17-2022 Patient encounter procedure Malinda Rubio [facility] Start: 12-06-2022 End: 12-07-[address] DANNY SANTILLAN . Facility:[facility] Start: 09-24-2022 End: 09-24-2022 Patient encounter procedure Malinda Rubio [facility] Start: 09-17-2022 End: 09-17-2022 Off-Site Malinda Rubio [facility] Start: 09-12-2022 End: 09-12-2022 Patient encounter procedure Malinda Rubio [facility] Start: 09-07-2022 End: 09-07-2022 Patient encounter procedure Malinda Rubio [facility] Start: 07-12-2022 Chart Update Cristin Roblero Work Phone: [facility] [facility] DO Work Phone: Start: 07-12-2022 End: 07-12-2022 Patient encounter procedure Goyaldoris Pisano [facility] Start: 04-15-2022 End: 04-15-[address] DANNY SANTILLAN . Facility: Start: 10-11-2021 Office outpatient vi sit 25 minutes Cristin Roblero Work Phone: [facility] [address] [place] Work Phone: Start: 10-11-2021 Patient encounter procedure Cristin Roblero Work Phone: [facility] DO Work Phone: Start: 04-09-2021 End: 04-09-2021 Subsequent hospital visit by physician Xr [facility] Comment on above: Bilateral hand pain [M79.641, M79.642] Start: 09-08-2017 Ambulatory CRIS VALENZUELA Facility:1 [id number] Procedures Date Procedure Procedure Detail Performing Clinician Start: 11-05-2024 ALL CBC WITH AUTO DIFF Ryley Isis DO Work Phone: Start: 10-29-2024 ALL CBC WITH AUTO DIFF Ryley Isis DO Work Phone: Start: 09-10-2024 ALL BASIC METABOLIC PANEL Ryley Isis DO Work Phone: Start: 11-04-2023 MRI of bilateral garrison asts with contrast ANIKA De La Rosa Work Phone: Start: 04-09-2021 Radex hand minimum 3 views Nico Newell MD Work Phone: Start: 02-02-2021 Biopsy of breast Goyal Davey Comment on above: sentinel node Start: 02-02-2021 Lumpectomy of right breast Jay Jay Pisano Start: 01-12-2021 Ultrasonography guid ed biopsy of right breast Jay Jay Pisano Start: 12-01-2014 Total colonoscopy Cristin Roblero Work Phone: Biopsy of breast Cristin Coon on Work Phone: Cardiac catheterization Cristin Roblero Work Phone: Comment on above: 2018 40% LAD; Dilation and curettage Margarito coats G Rj Work Phone: Dilation and curettage Margarito coats Rj H/O: surgery S/P D&C (status post dilation and curettage) Taniya CORTEZ Work Phone: Ligation of fallopian tube Katherine Roblero Work Phone: Ligation of fallopian tube H kaai Pisano Lumpectomy of breast Cristin Roblero Work Phone: Comment on above: left; Tonsillectomy Cristin Roblero Work Phone: Tonsillectomy Jay Jay Pisano Ultrasonography guid ed biopsy of right breast Cory JOSHUA Plan of Treatment Date Care Activity Detail Author Start: 10-11-2025 End: 10-11-2025 Patient encounter procedure 10/11/2025 10:30 AM EST Office Visit [facility] [address] [address] [place] [address] Jay Jay Pisano MD [address] [facility] 2, [address] [place] [address] [facility] Start: 05-25-2025 ambulatory Ambulatory Facility:Ida [facility]ong Start: 05-23-2025 End: 05-23-2025 Patient encounter procedure 05/23/2025 1:00 PM EDT Office Visit [facility] [address] [place] [id number] Ryley Marinelli DO [address] [place] [address] [facility] Start: 05-19-2025 End: 05-19-2025 Patient encounter procedure 05/19/2025 4:30 PM EDT Office Visit [facility] [address] [facility] [place] [address] Norma Vargas, DPM FACFAS [address] [place] [address] [facility] NMA POD Start: 01-18-2025 End: 01-18-2025 Patient encounter procedure 01/18/2025 10:15 AM EST Office Visit [facility] NB OPHT [address] [place] [phone] Rajinder Christina, DO [address] [place] [address] [facility] Start: 11-19-2024 End: 11-19-2024 Patient encounter procedure 11/19/2024 10:30 AM EST Office Visit [facility] OP[facility] [address] [place] [id number] Rajinder Christina DO [address] [place] [address] [facility] Start: 11-18-2024 End: 11-18-2024 Patient encounter procedure [facility] NMA POD Comment on above: Arrived Start: 11-17-2024 End: 11-17-2024 Patient encounter procedure [facility] NB OPHT Comment on above: Arrived Start: 09-17-2024 End: 09-17-2024 Patient encounter procedure 09/17/2024 9:30 AM EDT Procedure Visit [facility] EXT DEP Ryley Marinelli, DO [address] [place] [address] [facility] EXT DEP Start: 08-25-2024 End: 08-25-2024 Patient encounter procedure 08/25/2024 11:00 AM EDT Consult [facility] [address] [place] [id number] Ryley Marinelli, DO [address] [place] [address] Arrived [facility] OB Comment on above: Arrived Start: 08-01-2024 COVID-19 Vaccine ( season) COVID-19 Vaccine ( season) [facility] Start: 08-01-2024 Influenza vaccination Influenza Vacc ine (#1) [facility] Start: 07-14-2024 FUV, Provider: Jay Jay Pisano, Status: Pen, Time: 11:00 AM FUV, Provider: Jay Jay Pisano, Status: Pen, Time: 11:00 AM [facility] 250 DO Work Phone: Start: 08-01-2023 Influenza vaccination INFLUENZA (#1) [facility] Start: 07-29-2023 NURSEVST, Provider: JANETT ALLAN TOE TRIMMER 1,[id number], Status: Pen, Time: 11:00 AM NURSEVST, Provider: JANETT ALLAN TOE TRIMMER 1,[id number], Status: Pen, Time: 11:00 AM [facility] 250 DO Work Phone: Start: 07-15-2023 FUV, Provider: Jay Jay Pisano, Status: Pen, Time: 10:30 AM FUV, Provider: Jay Jay Pisano, Status: Pen, [facility]: 10:30 AM [facility] Start: 12-01-2022 ADVANCE DIRECTIVE DISCUSSION ADVANCE DIRECTIVE DISCUSSION [facility] Start: 12-01-2022 DEPRESSION ASSESSMENT DEPRESSION ASS ESSMENT [facility] Start: 07-16-2022 FUV, Provider: Jay Jay Pisano, Status: Pen, Time: 11:00 AM FUV, Provider: Jay Jay Pisano, Status: Pen, Time: 11:00 AM [facility] Su[facility] DO Work Phone: Start: 05-22-2020 DTaP/Tdap/Td Vaccine s (2 - Td or Tdap) DTaP/Tdap/Td Vaccines (2 - Td or Tdap) [facility] Start: 2015 BONE DENSITY BONE DENSITY [facility] Start: 2015 PNEUMOCOCCAL: 65+ (1 - PCV) PNEUMOCOCCAL: 65+ (1 - PCV) [facility] Start: 2010 RSV High Risk: (Elde rly (60+) or Population) (1 - Risk 60-74 years 1-dose series) RSV High Risk: (Elderly (60+) or Population) (1 - Risk 60-74 years 1-dose series) [facility] Start: 2000 SHINGRIX VACCINE (1 of 2) SHINGRIX VACCINE (1 of 2) [facility] Start: 2000 Zoster Vaccines (1 of 2) Zoste r Vaccines (1 of 2) [facility] Start: 1995 COLOGUARD (FIT-DNA) COLOGUARD (FIT-D NA) [facility] Start: 1995 Colonoscopy COLONOSCOPY [facility] Start: 1995 COLORECTAL CANCER SCREENING COLORECTAL CANCER SCREENING [facility] Start: [address] COLONOGRAPHY [facility] Start: 1995 DIABETES SCREEN DIABETES SCREEN [facility] Start: 1995 FECAL OCCULT BLOOD FECAL OCCULT BLOO D [facility] Start: 1995 LIPID SCREEN LIPID SCREEN [facility] Start: 1995 SIGMOIDOSCOPY SIGMOIDOSCOPY [facility] Start: 1990 Mammography MAMMOGRAM [facility] Start: 1990 Screening for malign ant neoplasm of breast Mammogram [facility] Start: 1969 Urine microalbumin profile DTAP,TDAP,TD (1 - Tdap) [facility] Start: 1968 HEPATITIS C SCREENING HEPATITIS C [facility] Start: 1968 Hepatitis C screening Hepatitis C [facility] Start: 1950 COVID-19 VACCINE (#1) COVID-19 VACCI NE (#1) [facility] Start: 1950 Lipid panel Lipid Panel [facility] Start: 1950 Medicare Annual Well ness Visit Medicare Annual Wellness Visit (AWV) [facility] Start: 1950 Screening for malign ant neoplasm of colon [facility] Start: 1950 Screening for osteoporosis Bone Density Scan [facility] Start: 1950 Thyroid stimulating hormone measurement TSH Level [facility] Immunizations Immunization Date Immunization Notes Care Provider Fa capo 01-31-2020 pneumococcal conjuga te vaccine, 13 valent Cristin Roblero Work Phone: [facility] 250 DO Work Phone: 09-25-2019 pneumococcal conjuga te vaccine, 13 valent Jay Jay Pisano [facility] 09-20-2019 pneumococcal conjuga te vaccine, 13 valent Cristin Roblero Work Phone: [facility] 600 DO Work Phone: 12-01-2018 pneumococcal polysaccharide vaccine, 23 valent Cristin Roblero Work Phone: [facility] 08-31-2015 influenza virus vaccine, unspecified formulation Cristin Roblero Work Phone: [facility] 600 DO Work Phone: 04-02-2013 influenza virus vaccine, unspecified formulation Goyal Pisano [facility] 05-22-2010 tetanus toxoid, redu latrell diphtheria toxoid, and acellular pertussis vaccine, adsorbed Goyal Pisano [facility] NEGATED: Highlighted row has not occurred!09-26-2023 influenza virus vaccine, unspecified formulation Vilma Mcallister [facility] NEGATED: Highlighted row has not occurred!08-19-2023 influenza virus vaccine, unspecified formulation Camryn De La Rosa [facility] NEGATED: Highlighted row has not occurred!09-12-2022 influenza virus vaccine, unspecified formulation Malinda Rubio [facility] NEGATED: Highlighted row has not occurred!02-07-2020 influenza virus vaccine, live, attenuated, for intranasal use Jay Jay Rodriguezim [facility] Payers Date Payer Category Payer Self-pay [id number] 2022 Medicare (Managed Care) 1.2. [id number] 2022 Unknown 2021 Unknown [id number] 2017 Private Health Insurance [employer] A ETNA MEDICARE SUPPLEMENT [id number] 2017-Present [phone] [address] [address] [place] [address] Indemnity [id number] 2014 Medicare MEDICARE MEDICAR E A AND B [id number] 2014-Present [phone] [address] [address] [place] [address] Medicare [id number] 1959 Unknown [id number] 1950 Unknown [id number] 2.16.840.1.372922.3.579. 2.593 1950 Unknown [id number] 2.16.840.1.233514.3.579. 2.593 1950 Unknown [id number] 2.16.840.1.574280.3.579. 2.593 1950 Unknown [id number] 2.16.840.1.556865.3.579. 2.593 1950 Unknown [id number] 2.16.840.1.721650.3.579. 2.356 1950 Unknown [id number] 2.16.840.1.992687.3.579. 2.727 1950 Unknown [id number] 2.16.840.1.410643.3.579. 2.727 1950 Unknown [id number] 2.16.840.1.889512.3.579. 2.727 1950 Unknown [id number] 2.16.840.1.921777.3.579. 2727 1950 Unknown [id number] 2.16.840.1.882770.3.579. 2.727 1950 Unknown [id number] 2.16.840.1.800991.3.579. 2.727 1950 Unknown [id number] 2.16.840.1.584232.3.579. 2.727 1950 Unknown [id number] 2.16.840.1.906354.3.579. 2.727 1950 Unknown [id number] 2.16.840.1.875988.3.579. 2.727 1950 Unknown [id number] 2.16.840.1.999472.3.579. 2.727 1950 Unknown [id number] 2.16.840.1.618024.3.579. 2.727 1950 Unknown [id number] 2.16.840.1.231409.3.579. 2.727 1950 Unknown [id number] 2.16.840.1.359243.3.579. 2. 1950 Unknown [id number] 2.16.840.1.699607.3.579. 2 1950 Unknown [id number] 2.16.840.1.955373.3.579. 2 1950 Unknown [id number] 2.16.840.1.021636.3.579. 2 1950 Unknown [id number] 2.16.840.1.352907.3.579. 2 1950 Unknown [id number] 2.16.840.1.016107.3.579. 1950 Unknown [id number] 2.16.840.1.677387.3.579. 1950 Unknown [id number] 2.16.840.1.342786.3.579. 2 1950 Unknown [id number] 2.16.840.1.173013.3.579. 1950 Unknown [id number] 2.16.840.1.476737.3.579. 2.4 1950 Unknown [id number] 2.16.840.1.247083.3.579. 2 1950 Unknown [id number] 2.16.840.1.747520.3.579. 2 1950 Unknown [id number] 2.16.840.1.894837.3.579. 2 1950 Unknown [id number] 2.16.840.1.842254.3.579. 2 1950 Unknown [id number] 2.16.840.1.993299.3.579. 2 1950 Unknown [id number] 2.16.840.1.730800.3.579. 2 1950 Unknown [id number] 2.16.840.1.456754.3.579. 2.1259 1950 Unknown [id number] 2.16.840.1.667106.3.579. 2.9 1950 Unknown [id number] 2.16.840.1.209804.3.579. 2.9 1950 Unknown [id number] 2.16.840.1.896654.3.579. 2.9 1950 Unknown [id number] 2.16.840.1.123154.3.579. 2.9 1950 Unknown [id number] 2.16.840.1.594677.3.579. 2.1259 Medicare Medicare [id number] Private Health Insurance [employer] [id number] Unknown [employer] [id number] Unknown [id number] 2.16.840.1.169962.3.579. 2.531 Social History Date Type Detail Facility Start: 04-09-2021 End: 06-10-2023 Caffeine use Caffeine use [place] [address] DO Work Phone: Comment on above: 2 cups of coffee abdirahman ly; occasional; 1 cup of coffee beto y; Start: 01-25-2022 End: 06-05-2023 Tobacco smoking status Never smoked tobacco (finding) [facility] Tobacco smoking status Never Omari [facility] Start: 04-09-2021 End: 06-10-2023 Sex Assigned At Female [facility] Start: 04-09-2021 End: 10-11-2024 Tobacco use and exposure Smokeless tobacco non-user [facility] Start: 1950 Sex Assigned At Not on file [facility] Start: 03-10-2021 End: 10-11-2024 Exposure to SARS-CoV-2 (event) Not sure [facility] Start: 1950 Sex Assigned At Female F [facility] Start: 08-25-2024 End: 11-18-2024 Alcoholic beverage intake Current drinker of alcohol (finding) [facility] Start: 06-05-2023 Alcohol Comment Alcohol: 1 or 2 drinks, 2 to 4 times a month; Caffeine: 1-2 cups/day [facility] Start: 10-11-2024 Alcoholic beverage intake Ex-drinker (finding) [facility] Work Phone: Functional Status Date Assessment Result Facility 10-15-2024 Functional Status N/A [facility] 07-09-2024 Functional Status N/A [facility] 05-26-2024 Functional Status N/A [facility] 05-12-2024 Functional Status N/A [facility] 05-06-2024 Functional Status N/A [facility] 04-14-2024 Functional Status N/A [facility] 02-06-2024 Functional Status N/A [facility] 01-15-2024 Functional Status N/A [facility] 10-30-2023 Functional Status N/A [facility] 09-26-2023 Functional Status N/A [facility] 08-19-2023 Functional Status N/A [facility] 12-17-2022 Functional Status N/A [facility] 09-24-2022 Functional Status N/A [facility] 09-17-2022 Functional Status Telehealth Patient Pablo [facility] 09-12-2022 Functional Status N/A [facility] Clinical Notes 04-09-2021 to 11-18-2024 Norma Vargas DPM FACFAS - 11/18/2024 5:10 PM DIEGO Pickett - 11/17/2024 10:20 AM Krista Pisano MD - 10/11/2024 1:30 PM ESTPatient Mitesh De Santiago - 08/25/2024 11:00 AM EDT Note Date & Type Note Facility 11-18-2024 History of Present illness Narrative Images from the original note were not included. Patient: Kermit Rosen : 1950 PCP: Reggie Martinez MD SUBJECTIVE This is a 74 y.o. female that presents today with a chief complaint of a painful lesion plantar aspect of the foot. They state the lesion has been slow growing and has multipled. The area is painful and causes marked limitation in ambulation secondary to the pain. They have attempted jxvk-wja-[id number] anti-inflammatory medications as well as zjwg-scd-wxainhh wart treatment to no avail. Allergies: Allergies Allergen Reactions Citalopram Other Reaction(s): Muscle Pain, Unknown, Unknown felt horrible Propranolol Other Reaction(s): hives, Unknown, Unknown Reaction Atorvastatin Other Reaction(s): Unknown Benzonatate Other Reaction(s): Unknown Benzyl Benzonate [Benzyl Benzoate] Diclofenac Other Reaction(s): Hypertension, Unknown Doxycycline Other Reaction(s): Unknown, Unknown, Yeast infection Hydrochlorothiazide Other Reaction(s): Electrolyte disturbance, Unknown, Unknown Reaction Lisinopril Cough Other Reaction(s): Intolerance, Unknown, Unknown Reaction Octacosanol Other Reaction(s): Unknown Other Other Reaction(s): Unknown Diclofenac Sodium Other Reaction(s): BP rises Other Reaction(s): BP rises, Intolerance raised blood pressure Past Medical History: Past Medical History: Diagnosis Date Abnormal uterine bleeding (AUB) Anxiety BMI 23.0-23.9, adult Breast cancer in female (CMS/HCC) Breast cancer screening Chronic GERD Dizziness and giddiness Dry eyes Encounter for gynecological examination (general) (routine) without abnormal findings History of lumpectomy of right breast Hypertension (CMS/HCC) Iron deficiency anemia Mild CAD (CMS/HCC) OC (onychocryptosis) Occipital neuralgia OM (onychomycosis) Osteoporosis (CMS/HCC) Pain in breast Plantar verruca Post menopausal syndrome Rectocele Thickened endometrium Thickened endometrium Vaginal atrophy Ventral hernia Verruca plantaris Vitamin D deficiency Medications: Current Outpatient Medications: albuterol HFA 90 mcg/act inhaler, , Disp: , Rfl: [place] Thyroid 30 MG tablet, 1 (one) time each day at the same time., Disp: , Rfl: aspirin 81 MG EC tablet, 1 (one) time each day at the same time., Disp: , Rfl: coenzyme Q-10 100 MG capsule, Take 100 mg by mouth in the morning., Disp: , Rfl: Elderberry 500 MG capsule, Refill(s) 0, Disp: , Rfl: metoprolol succinate XL (Toprol-XL) 50 MG 24 hr tablet, Take 50 mg by mouth in the morning., Disp: , Rfl: nitroglycerin (Nitrostat) 0.4 MG SL tablet, Place 0.4 mg under the tongue, Disp: , Rfl: Oxytocin-Sodium Chloride 15-0.9 UT/250ML-% solution, Infuse into a venous catheter., Disp: , Rfl: progesterone (Endometrin) 100 MG vaginal insert, Insert 100 mg into the vagina in the morning and 100 mg before bedtime., Disp: , Rfl: sertraline (Zoloft) 100 MG tablet, Take 50 mg by mouth in the morning., Disp: , Rfl: sertraline (Zoloft) 50 MG tablet, Take 50 mg by mouth Daily, Disp: , Rfl: thyroid ([place] Thyroid) 30 MG tablet, , Disp: , Rfl: valsartan (Diovan) 160 MG tablet, 1 (one) time each day at the same time., Disp: , Rfl: Review of systems: Constitutional: Denies fever, chills, nausea, vomiting GI: Denies abdominal pain, cramping, loose stool, gastric ulcers Musculoskeletal: Denies low back pain, knee pain, systemic arthritis Neurologic: Denies burning, tingling, transient paralysis OBJECTIVE Physical Examination: DERM: Positive hair growth to b/l feet with good skin turgor noted. Negative openings in skin. There is pinpoint bleeding noted upon debridement. Pain with lateral compression. No skin lines running through the lesion. The lesions are multiple and sporadic. VASC: DP /PT were palpable bilateral. Capillary refill time < 3 seconds Digits 1-5 bilateral NEURO: [facility] 5.07 monofilament was intact B/L. Vibratory sensation was intact B/L Musculoskeletal: Muscle strength was +5 over 5 all intrinsic and extrinsic muscles tested. Radiographs: AP/MO/LAT: Diagnostic ultrasound: ASSESSMENT 1. Plantar verruca 2. Neoplasm of uncertain behavior of skin 3. Pain in right foot 4. Pain in left foot PLAN Patient was educated on the etiology of the plantar neoplasm. We discussed surgical versus conservative options. From a surgical standpoint we discussed excision with pathological examination versus Chemo -lytic treatment. Today I debrided the lesions to the level of pinpoint bleeding. I applied an application of 60 percent salicylic acid to the lesions. Covered with an occlusive dressing. REANNA Syed documented in this encounter [facility] 11-17-2024 History of Present illness Narrative Reason for Appointment: Patient ID: Kermit Rosen is a 74 y.o. female who presents for Post-op Visit (Pt present today for post operative visit. Pt had a D&C on 11/05/2024.) Patient presents today for 1 Week Post Op Follow Up appointment. MEDICATIONS Current Outpatient Medications Medication Instructions albuterol HFA 90 mcg/act inhaler [place] Thyroid 30 MG tablet Every 24 hours aspirin 81 MG EC tablet Every 24 hours coenzyme Q-10 100 mg, Oral, Daily RT Elderberry 500 MG capsule Refill(s) 0 metoprolol succinate XL (TOPROL-XL) 50 mg, Oral, Daily RT nitroglycerin (NITROSTAT) 0.4 mg, Sublingual Oxytocin-Sodium Chloride 15-0.9 UT/250ML-% solution Intravenous progesterone (ENDOMETRIN) 100 mg, Vaginal, 2 times daily sertraline (ZOLOFT) 50 mg, Oral, Daily RT sertraline (ZOLOFT) 50 mg, Oral, Daily thyroid ([place] Thyroid) 30 MG tablet valsartan (Diovan) 160 MG tablet Every 24 hours ALLERGIES Allergies Allergen Reactions Citalopram Other Reaction(s): Muscle Pain, Unknown, Unknown felt horrible Propranolol Other Reaction(s): hives, Unknown, Unknown Reaction Atorvastatin Other Reaction(s): Unknown Benzonatate Other Reaction(s): Unknown Benzyl Benzonate [Benzyl Benzoate] Diclofenac Other Reaction(s): Hypertension, Unknown Doxycycline Other Reaction(s): Unknown, Unknown, Yeast infection Hydrochlorothiazide Other Reaction(s): Electrolyte disturbance, Unknown, Unknown Reaction Lisinopril Cough Other Reaction(s): Intolerance, Unknown, Unknown Reaction Octacosanol Other Reaction(s): Unknown Other Other Reaction(s): Unknown Diclofenac Sodium Other Reaction(s): BP rises Other Reaction(s): BP rises, Intolerance raised blood pressure PROBLEMS Active Ambulatory Problems Diagnosis Date Noted Abnormal vaginal bleeding 06/04/2023 Allergic rhinitis 06/04/2023 YOSELIN positive 04/09/2021 Anxiety 06/04/2023 Arthralgia 06/04/2023 Arthritis of foot, left 06/04/2023 Arthritis of foot, right 06/04/2023 Vitamin D deficiency 06/04/2023 Vertigo 06/04/2023 Verruca plantaris 06/04/2023 URI with cough and congestion 06/04/2023 Thickened endometrium 06/04/2023 Sore throat 06/04/2023 Sensorineural hearing loss (SNHL), bilateral 06/04/2023 Sensorineural hearing loss (SNHL) of left ear with restricted hearing of right ear 06/04/2023 Secondary osteoarthritis of multiple sites 04/09/2021 Postmenopausal osteoporosis of multiple sites ([facility]/HCC) 04/09/2021 Postmenopausal bleeding 06/04/2023 Personal history of breast cancer 06/04/2023 Pain of breast 06/04/2023 Osteoporosis ([facility] 06/04/2023 Occipital neuralgia 06/04/2023 Numbness and tingling of foot 04/09/2021 Numbness and tingling in both hands 04/09/2021 Moderate episode of recurrent major depressive disorder ([facility]) 06/04/2023 Mild CAD ([facility]) 06/04/2023 Hypothyroid ([facility]) 06/04/2023 Hypokalemia 06/04/2023 Hormone imbalance 06/04/2023 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[facility]) 06/04/2023 Hair loss 06/04/2023 Fibrocystic changes of right breast 06/04/2023 Fall 06/04/2023 DCIS (ductal carcinoma in situ) 06/04/2023 Dry mouth 04/09/2021 Dry eye syndrome of both eyes 04/09/2021 Chronic sinusitis 06/04/2023 Chronic GERD 06/04/2023 Cervicalgia 04/09/2021 Breast lump in upper outer quadrant 06/04/2023 Breast cancer of upper-inner quadrant of right female breast ([facility]/HCC) 06/04/2023 BMI 24.0-24.9, adult 06/04/2023 Bilateral hand pain 04/09/2021 Benign essential hypertension (CMS/HCC) 06/04/2023 Atrophy of vagina 06/04/2023 B12 deficiency 06/04/2023 Elevated sed rate 04/09/2021 Keratoconjunctivitis sicca of both eyes not specified as Sjogren's 11/10/2023 Age-related nuclear cataract of both eyes 11/10/2023 Blepharitis of upper and lower eyelids of both eyes 11/10/2023 Resolved Ambulatory Problems Diagnosis Date Noted No Resolved Ambulatory Problems Past Medical History: Diagnosis Date Abnormal uterine bleeding (AUB) BMI 23.0-23.9, adult Breast cancer in female ([facility]) Breast cancer screening Dizziness and giddiness Dry eyes Encounter for gynecological examination (general) (routine) without abnormal findings History of lumpectomy of right breast Hypertension (CMS/HCC) Iron deficiency anemia OC (onychocryptosis) OM (onychomycosis) Pain in breast Plantar verruca Post menopausal syndrome Rectocele Vaginal atrophy Ventral hernia HISTORY PAST MEDICAL HISTORY SOCIAL HISTORY Past Medical History: Diagnosis Date Abnormal uterine bleeding (AUB) Anxiety BMI 23.0-23.9, adult Breast cancer in female ([facility]) Breast cancer screening Chronic GERD Dizziness and giddiness Dry eyes Encounter for gynecological examination (general) (routine) without abnormal findings History of lumpectomy of right breast Hypertension (CMS/HCC) Iron deficiency anemia Mild CAD (CMS/HCC) OC (onychocryptosis) Occipital neuralgia OM (onychomycosis) Osteoporosis (CMS/HCC) Pain in breast Plantar verruca Post menopausal syndrome Rectocele Thickened endometrium Thickened endometrium Vaginal atrophy Ventral hernia Verruca plantaris Vitamin D deficiency Social History Tobacco Use Smoking status: Never Smokeless tobacco: Not on file Substance Use Topics Alcohol use: Yes Comment: Alcohol: 1 or 2 drinks, 2 to 4 times a month; Caffeine: 1-2 cups/day Drug use: Never FAMILY HISTORY Family History Problem Relation Name Age of Onset Cancer Mother Brain Aneurysm Father Colon cancer Brother Diabetes Sibling Hypertension Sibling Hyperlipidemia Sibling Heart disease Sibling Stroke Sibling Cancer Sibling SURGICAL HISTORY Past Surgical History: Procedure Laterality Date BREAST BIOPSY Right BREAST LUMPECTOMY Right [place] Node DILATION AND CURETTAGE OF UTERUS 06/30/2023 DILATION AND CURETTAGE OF UTERUS 11/05/2024 hysteroscopy w/myosure HYSTEROSCOPY 06/30/2023 w/myosure, dx lap with dayami LASER LAPAROSCOPY 06/30/2023 TUBAL LIGATION REVIEW OF SYSTEMS Review of Systems: Review of Systems Constitutional: Negative. HENT: Negative. Eyes: Negative. Respiratory: Negative. Cardiovascular: Negative. Gastrointestinal: Negative. Genitourinary: Negative. Musculoskeletal: Negative. Skin: Negative. Neurological: Negative. All other systems reviewed and are negative. Hematological: Negative. Endocrine: Negative. Allergic/Immunologic: Negative. OBJECTIVE Objective: Physical Exam Constitutional: Appearance: Normal appearance. She is normal weight. HENT: Head: Normocephalic. Cardiovascular: Rate and Rhythm: Normal rate. Pulses: Normal pulses. Pulmonary: Effort: Pulmonary effort is normal. Breath sounds: Normal breath sounds. Abdominal: Palpations: Abdomen is soft. Musculoskeletal: General: Normal range of motion. Neurological: General: No focal deficit present. Mental Status: She is alert and oriented to person, place, and time. Psychiatric: Mood and Affect: Mood normal. Behavior: Behavior normal. Thought Content: Thought content normal. Judgment: Judgment normal. Vitals and nursing note reviewed. Vitals: Estimated body mass index is 23.24 kg/m as calculated from the following: Height as of 05/18/24: 5' 1 . Weight as of 08/25/24: 123 lb. BP: No LMP recorded. Patient is postmenopausal. ASSESSMENT & PLAN ICD-10-CM 1. Postoperative visit Z48.89 2. S/P D&C (status post dilation and curettage) Z98.890 Post Op Follow Up: Patient presents today for a postop follow up after having a D&C Hysteroscopy performed at [facility] with Dr. Marinelli. Pathology results was reviewed with the patient in great detail and all restrictions have been lifted. Follow Up: Patient is to return to the office for annual exam unless needed otherwise. Documented by Jeri Diego MA on behalf of: DIEGO Leon documented in this encounter [facility] 10-15-2024 Hospital Discharge instructions Patient Education 10/15/2024 [...] condition. Follow these instructions at home: Take dber-oug-lngtyxb and prescription medicines only as told by [...] and water are not available, use hand front end web developer. Avoid contact with people who have cold [...] it is easier to cough up. Take odzy-tgl-bneuzpy and prescription medicines only as told by [...] provider. Document Revised: 02/27/2023 Document Reviewed: 03/20/2022 [employer] Patient Education 2023 Get Me Listed. 10/15/2024 11:08:26 Postnasal Drip Postnasal Drip Postnasal [...] the nasal passages moist. General instructions Take pvnk-ypp-kacwfeh and prescription medicines only as told by [...] provider. Document Revised: 10/17/2022 Document Reviewed: 10/17/2022 [employer] Patient Education 2023 Get Me Listed. 10/15/2024 11:08:23 Aspiration Pneumonia, Adult Aspiration Pneumonia, [...] Follow these instructions at home: Medicines Take ugbs-hfk-pvkxfgt and prescription medicines as told by your [...] provider. Document Revised: 04/30/2023 Document Reviewed: 04/30/2023 [employer] Patient Education 2023 Get Me Listed. Follow Up Care 10/12/2024 16:59:27 With:Vilma John FAM, MED Address: [address] [place] [address], [facility] [place] [phone]- When:Within 2 Week(s) Comments:lung follow up [facility] 10-15-2024 Note Patient Education [...] nasal passages moist. General instructions ??? Take favu-ijl-fckzzry and prescription medicines only as told by [...] provider. Document Revised: 10/17/2022 Document Reviewed: 10/17/2022 [employer] Patient Education ? 2023 Get Me Listed. Neurology Aspiration Pneumonia, Adult Aspiration pneumonia is [...] also be silent. (more content not included)... [facility] 10-11-2024 History of Present illness Narrative Cj Rosen is a 74 y.o. female Chief Complaint Annual Exam HPI Patient is in the office for follow-up for the problems noted below along with a need for cardiac clearance prior to D&C surgery scheduled in few weeks at [facility]. Her blood pressure is under excellent control. [...] preparation for the upcoming surgery scheduled at [place] for D&C. She is acceptable risk and [...] once daily., Disp: , Rfl: thyroid, pork, ([place] Thyroid) 30 mg tablet, Take 1 tablet [...] my name below, Pennie Luis RN , Fernieibjonatan attest that this documentation has been prepared under the direction and in the presence of Jay Jay Pisano MD. Provider Attestation - Scribe documentation All medical record entries made by the Scribe were at my direction and personally dictated by me. I have reviewed the chart and agree that the record accurately reflects my personal performance of the history, physical exam, discussion and plan. documented in this encounter [facility] Work Phone: 10-11-2024 Instructions Pennie Lan RN [...] with Dr Marinelli documented in this encounter [facility] Work Phone: 08-25-2024 History of Present illness Narrative Reason for Appointment: Patient ID: Kermit Rosen is a 74 y.o. female who presents for Pre-op Visit Patient presents today for Pre Op appointment. Patient is scheduled to undergo Fractional D&C Hysteroscopy, possible Myosure on 09/17/[address] Marinelli at [facility]. MEDICATIONS Current Outpatient Medications Medication Instructions albuterol HFA 90 mcg/act inhaler [place] Thyroid 30 MG tablet Every 24 hours aspirin 81 MG EC tablet Every 24 hours coenzyme Q-10 100 mg, Oral, Daily RT Elderberry 500 MG capsule Refill(s) 0 metoprolol succinate XL (TOPROL-XL) 50 mg, Oral, Daily RT nitroglycerin (NITROSTAT) 0.4 mg, Sublingual Oxytocin-Sodium Chloride 15-0.9 UT/250ML-% solution Intravenous progesterone (ENDOMETRIN) 100 mg, Vaginal, 2 times daily sertraline (ZOLOFT) 50 mg, Oral, Daily RT sertraline (ZOLOFT) 50 mg, Oral, Daily thyroid ([place] Thyroid) 30 MG tablet valsartan (Diovan) 160 MG tablet Every 24 hours ALLERGIES Allergies Allergen Reactions Citalopram Other Reaction(s): Muscle Pain, Unknown, Unknown felt horrible Propranolol Other Reaction(s): hives, Unknown, Unknown Reaction Atorvastatin Other Reaction(s): Unknown Benzonatate Other Reaction(s): Unknown Benzyl Benzonate [Benzyl Benzoate] Diclofenac Other Reaction(s): Hypertension, Unknown Doxycycline Other Reaction(s): Unknown, Unknown, Yeast infection Hydrochlorothiazide Other Reaction(s): Electrolyte disturbance, Unknown, Unknown Reaction Lisinopril Cough Other Reaction(s): Intolerance, Unknown, Unknown Reaction Octacosanol Other Reaction(s): Unknown Other Other Reaction(s): Unknown Diclofenac Sodium Other Reaction(s): BP rises Other Reaction(s): BP rises, Intolerance raised blood pressure PROBLEMS Active Ambulatory Problems Diagnosis Date Noted Abnormal vaginal bleeding 06/04/2023 Allergic rhinitis 06/04/2023 YOSELIN positive 04/09/2021 Anxiety 06/04/2023 Arthralgia 06/04/2023 Arthritis of foot, left 06/04/2023 Arthritis of foot, right 06/04/2023 Vitamin D deficiency 06/04/2023 Vertigo 06/04/2023 Verruca plantaris 06/04/2023 URI with cough and congestion 06/04/2023 Thickened endometrium 06/04/2023 Sore throat 06/04/2023 Sensorineural hearing loss (SNHL), bilateral 06/04/2023 Sensorineural hearing loss (SNHL) of left ear with restricted hearing of right ear 06/04/2023 Secondary osteoarthritis of multiple sites 04/09/2021 Postmenopausal osteoporosis of multiple sites ([facility]/HCC) 04/09/2021 Postmenopausal bleeding 06/04/2023 Personal history of breast cancer 06/04/2023 Pain of breast 06/04/2023 Osteoporosis ([facility]/HCC) 06/04/2023 Occipital neuralgia 06/04/2023 Numbness and tingling of foot 04/09/2021 Numbness and tingling in both hands 04/09/2021 Moderate episode of recurrent major depressive disorder (HCC) ([facility]) 06/04/2023 Mild CAD ([facility]) 06/04/2023 Hypothyroid ([facility]/HCC) 06/04/2023 Hypokalemia 06/04/2023 Hormone imbalance 06/04/2023 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CMS/HCC) 06/04/2023 Hair loss 06/04/2023 Fibrocystic changes of right breast 06/04/2023 Fall 06/04/2023 DCIS (ductal carcinoma in situ) 06/04/2023 Dry mouth 04/09/2021 Dry eye syndrome of both eyes 04/09/2021 Chronic sinusitis 06/04/2023 Chronic GERD 06/04/2023 Cervicalgia 04/09/2021 Breast lump in upper outer quadrant 06/04/2023 Breast cancer of upper-inner quadrant of right female breast ([facility]) 06/04/2023 BMI 24.0-24.9, adult 06/04/2023 Bilateral hand pain 04/09/2021 Benign essential hypertension ([facility]) 06/04/2023 Atrophy of vagina 06/04/2023 B12 deficiency 06/04/2023 Elevated sed rate 04/09/2021 Keratoconjunctivitis sicca of both eyes not specified as Sjogren's 11/10/2023 Age-related nuclear cataract of both eyes 11/10/2023 Blepharitis of upper and lower eyelids of both eyes 11/10/2023 Resolved Ambulatory Problems Diagnosis Date Noted No Resolved Ambulatory Problems Past Medical History: Diagnosis Date Abnormal uterine bleeding (AUB) BMI 23.0-23.9, adult Breast cancer in female ([facility]) Breast cancer screening Dizziness and giddiness Dry eyes Encounter for gynecological examination (general) (routine) without abnormal findings History of lumpectomy of right breast Hypertension ([facility]) Iron deficiency anemia OC (onychocryptosis) OM (onychomycosis) Pain in breast Plantar verruca Post menopausal syndrome Rectocele Vaginal atrophy Ventral hernia HISTORY PAST MEDICAL HISTORY SOCIAL HISTORY Past Medical History: Diagnosis Date Abnormal uterine bleeding (AUB) Anxiety BMI 23.0-23.9, adult Breast cancer in female ([facility]) Breast cancer screening Chronic GERD Dizziness and giddiness Dry eyes Encounter for gynecological examination (general) (routine) without abnormal findings History of lumpectomy of right breast Hypertension ([facility]/HCC) Iron deficiency anemia Mild CAD ([facility]) OC (onychocryptosis) Occipital neuralgia OM (onychomycosis) Osteoporosis (CMS/HCC) Pain in breast Plantar verruca Post menopausal syndrome Rectocele Thickened endometrium Thickened endometrium Vaginal atrophy Ventral hernia Verruca plantaris Vitamin D deficiency Social History Tobacco Use Smoking status: Never Smokeless tobacco: Not on file Substance Use Topics Alcohol use: Yes Comment: Alcohol: 1 or 2 drinks, 2 to 4 times a month; Caffeine: 1-2 cups/day Drug use: Never FAMILY HISTORY Family History Problem Relation Name Age of Onset Cancer Mother Brain Aneurysm Father Colon cancer Brother Diabetes Sibling Hypertension Sibling Hyperlipidemia Sibling Heart disease Sibling Stroke Sibling Cancer Sibling SURGICAL HISTORY Past Surgical History: Procedure Laterality Date BREAST BIOPSY Right BREAST LUMPECTOMY Right [place] Node DILATION AND CURETTAGE OF UTERUS 06/30/2023 HYSTEROSCOPY 06/30/2023 w/myosure, dx lap with dayami LASER LAPAROSCOPY 06/30/2023 TUBAL LIGATION REVIEW OF SYSTEMS Review of Systems: Review of Systems OBJECTIVE Objective: OBGyn Exam Vitals: Estimated body mass index is 23.24 kg/m as calculated from the following: Height as of 05/18/24: 5' 1 . Weight as of this encounter: 123 lb. BP: 124/78 No LMP recorded. Patient is postmenopausal. ASSESSMENT & PLAN ICD-10-CM 1. Pre-op examination Z01.818 2. Thickened endometrium R93.89 3. Endometrial mass N94.89 Pre Op: Patient is doing well but has complaints of endometrial thickening. I have discussed conservative management vs. surgical management with the patient in detail and patient desires surgical management at this time. Patient will undergo Fractional D&C Hysteroscopy, possible Myosure on 09/17/2024. Surgical consents were signed, mmc was reviewed, and patient is to proceed to [facility]. Follow Up: Patient is to follow up between 1-2 weeks post operative to assess proper healing and recovery from procedure. Documented by Eli Gaitan LPN on behalf of: Ryley Marinelli DO documented in this encounter [facility] 05-26-2024 Hospital Discharge instructions Patient Education 05/26/2024 [...] canola oil, flaxseeds, walnuts, almonds, and seeds. ?[place]-3 fats. These are found in foods such [...] oatmeal, bulgur, barley, quinoa, or brown rice. [place] or whole wheat flour tortillas. Meats and [...] or reduced-fat mayonnaise and salad dressings. Avocado. [place], canola, sesame, or safflower oils. The items [...] meat. Dairy Whole or 2% milk, cream, qook-kls-aumv, and cream cheese. Whole milk cheeses. Whole-fat or sweetened yogurt. Full-fat cheeses. Nondairy creamers and whipped toppings. Processed cheese, cheese spreads, and cheese curds. Fats and oils Butter, stick margarine, lard, shortening, ghee, or torres fat. Coconut, palm kernel, and palm oils. Beverages Alcohol. Sugar-sweetened drinks such as sodas, lemonade, and fruit drinks. Sweets and desserts [place] syrup, sugars, honey, and molasses. Candy. Jam [...] provider. Document Revised: 03/29/2022 Document Reviewed: 03/29/2022 [employer] Patient Education 2022 Get Me Listed. 05/26/2024 15:45:13 Hypertension, Adult, Kjxc-ad-Tyod Hypertension, Adult Hypertension is another name for [...] doctor. Keep all follow-up visits. Medicines Take bcax-mtv-qpfyjgb and prescription medicines only as told by [...] provider. Document Revised: 09/05/2022 Document Reviewed: 09/05/2022 [employer] Patient Education 2022 Get Me Listed. 05/26/2024 15:45:09 DASH Eating Plan DASH Eating [...] Dairy Whole or 2% milk, cream, and ilxy-ssz-ngrd. Whole or full-fat cream cheese. Whole-fat or [...] more information National Heart, Lung, and Blood [place]: www.nhlbi.nih.gov [place] Heart Association: www.heart.org Academy of Nutrition and [...] provider. Document Revised: 10/20/2020 Document Reviewed: 10/20/2020 [employer] Patient Education 2022 Get Me Listed. 05/26/2024 15:45:06 Major Depressive Disorder, Adult Major [...] things, which may include: Your personality traits. [place] or conditioned behaviors or thoughts or feelings [...] your health care provider. General instructions Take vzlm-zyn-zfarmyw and prescription medicines only as told by your health care provider. Eat a healthy diet and get plenty of sleep. Consider joining a support group. Your health care provider may be able to recommend one. Keep all follow-up visits as told by your health care provider. This is important. Where to find more information National [place] on Mental Illness: www.julia.org [place] National [place] of Mental Health: www.nimh.nih.gov Contact a health [...] department or: Call your local emergency services (911 in the [place] Call a suicide crisis helpline, such as the National Suicide Prevention Lifeline at or 104 in the [place] This is open 24 hours a day in the [place] Text the Crisis Text Line at 320872 (in the [place] Summary Major depressive disorder [...] provider. Document Revised: 06/12/2022 Document Reviewed: 10/28/2020 [employer] Patient Education 2022 Get Me Listed. [facility] 05-26-2024 Hospital Discharge instructions [...] such as almond, soy, or oat milks. ?[place] juice. ?Margarine. When choosing foods, check the [...] including vitamins, herbs, eye drops, creams, and jgba-cpu-fyyoeuh medicines. Take qcit-cdj-xrnnzus and prescription medicines only as told by [...] provider. Document Revised: 08/23/2022 Document Reviewed: 08/23/2022 [employer] Patient Education 2022 Get Me Listed. 05/26/2024 13:32:06 Dyslipidemia Dyslipidemia Dyslipidemia is an [...] quitting, ask your health care provider. Take ekug-fpq-cqzwvii and prescription medicines only as told by [...] provider. Document Revised: 01/21/2022 Document Reviewed: 01/21/2022 [employer] Patient Education 2022 Get Me Listed. 05/26/2024 13:32:04 Hypertension, Adult Hypertension, Adult High [...] follow-up visits. This is important. Medicines Take gqjo-brr-fhchhrs and prescription medicines only as told by [...] provider. Document Revised: 09/24/2022 Document Reviewed: 09/24/2022 [employer] Patient Education 2022 Get Me Listed. 05/26/2024 13:32:03 Heart Disease Prevention Heart Disease [...] of hard liquor (44 mL). Medicines Take dunc-dbp-dvflogt and prescription medicines only as told by [...] Centers for Disease Control and Prevention: www.cdc.gov/heartdisease [place] Heart Association: www.heart.org Summary Heart disease is [...] provider. Document Revised: 07/17/2022 Document Reviewed: 07/17/2022 [employer] Patient Education 2022 Get Me Listed. 05/26/2024 13:31:57 Hypothyroidism Hypothyroidism Hypothyroidism is when [...] away. Follow these instructions at home: Take imzk-dnl-sntheqp and prescription medicines only as told by [...] provider. Document Revised: 11/19/2022 Document Reviewed: 11/19/2022 [employer] Patient Education 2022 Get Me Listed. 05/26/2024 13:18:44 Dyslipidemia Dyslipidemia Dyslipidemia is an [...] quitting, ask your health care provider. Take daew-auk-ipdfmem and prescription medicines only as told by [...] provider. Document Revised: 01/21/2022 Document Reviewed: 01/21/2022 [employer] Patient Education 2022 Get Me Listed. 05/26/2024 13:18:40 Heart Disease Prevention Heart Disease [...] of hard liquor (44 mL). Medicines Take yccu-cpm-fglluhe and prescription medicines only as told by [...] Centers for Disease Control and Prevention: www.cdc.gov/heartdisease [place] Heart Association: www.heart.org Summary Heart disease is [...] provider. Document Revised: 07/17/2022 Document Reviewed: 07/17/2022 [employer] Patient Education 2022 Get Me Listed. 05/26/2024 13:18:39 DASH Eating Plan DASH Eating [...] Dairy Whole or 2% milk, cream, and hssi-cvb-ngnn. Whole or full-fat cream cheese. Whole-fat or [...] more information National Heart, Lung, and Blood [place]: www.nhlbi.nih.gov [place] Heart Association: www.heart.org Academy of Nutrition and [...] provider. Document Revised: 10/20/2020 Document Reviewed: 10/20/2020 [employer] Patient Education 2022 Get Me Listed. 05/26/2024 13:18:36 Genital Yeast Infection, Male Genital [...] instructions at home: Medicines Take or apply cies-tdm-zdtirqm and prescription medicines only as told by [...] provider. Document Revised: 11/13/2022 Document Reviewed: 11/13/2022 [employer] Patient Education 2022 Get Me Listed. 05/26/2024 13:18:33 Hypothyroidism Hypothyroidism Hypothyroidism is when [...] away. Follow these instructions at home: Take pdtt-vuw-yxbhxcu and prescription medicines only as told by [...] provider. Document Revised: 11/19/2022 Document Reviewed: 11/19/2022 [employer] Patient Education 2022 Get Me Listed. Follow Up Care 10/30/2023 10:46:14 With:Vilma John [facility] Address[facility] [place] [phone]- Business (1) When:Within 3 Month(s) Comments:3 mo f/u for htn, hypothyroidism, depression [facility] 05-12-2024 Hospital Discharge instructions [...] condition. Follow these instructions at home: Take ircw-jxe-txppiwt and prescription medicines only as told by [...] and water are not available, use hand front end web developer. Avoid contact with people who have cold [...] it is easier to cough up. Take gtkt-uee-pcpsvdv and prescription medicines only as told by [...] provider. Document Revised: 02/27/2023 Document Reviewed: 03/20/2022 [employer] Patient Education 2022 Get Me Listed. 05/12/2024 15:56:49 Otitis Media With Effusion, Adult [...] few weeks. Home care treatment may include: Slqv-lew-cowsbxy pain relievers. A warm, moist cloth placed over the ear. Severe cases may require a procedure to insert tubes in the ears (tympanostomy tubes) to drain the fluid. Follow these instructions at home: Take bkas-zdu-vszszbb and prescription medicines only as told by [...] provider. Document Revised: 03/14/2022 Document Reviewed: 03/14/2022 [employer] Patient Education 2022 [employer] 05/12/2024 15:56:46 Varicose Veins Varicose Veins [...] Follow these instructions at home: Medicines Take etyw-hts-nzqayts and prescription medicines only as told by [...] provider. Document Revised: 05/01/2022 Document Reviewed: 05/01/2022 [employer] Patient Education 2022 Get Me Listed. 05/12/2024 15:56:37 Fatigue Fatigue If you have [...] Follow these instructions at home: Medicines Take fsnx-vev-lefybtg and prescription medicines only as told by [...] the National Suicide Prevention Lifeline at or 004. This is open 24 hours a day. Text the Crisis Text Line at 904424. Summary If you have fatigue, you feel [...] provider. Document Revised: 09/09/2022 Document Reviewed: 09/09/2022 [employer] Patient Education 2022 [employer] 05/12/2024 15:56:35 Community-Acquired Pneumonia, Adult Community-Acquired Pneumonia, [...] Follow these instructions at home: Medicines Take yugw-dps-rbsccir and prescription medicines only as told by [...] and water are not available, use hand front end web developer. Contact a health care provider if: You [...] provider. Document Revised: 01/15/2023 Document Reviewed: 01/15/2023 [employer] Patient Education 2022 Get Me Listed. Follow Up Care 05/05/2024 10:40:01 With:Vilma John FAM, [facility] Address: [address] [place] [address], [facility] [place] [phone] When:Within 2 Week(s) Comments:ear check , labs reviewed [facility] 04-14-2024 Hospital Discharge instructions [...] medicines to help relieve symptoms, such as: Usmz-tpe-rmxwmci cold medicines. Cough suppressants. Coughing is a [...] and other clear broths. General instructions Take kzej-tsu-vpvtzpy and prescription medicines only as told by [...] and water are not available, use hand front end web developer. Avoid touching your mouth, face, eyes, or [...] provider. Document Revised: 06/19/2022 Document Reviewed: 06/19/2022 [employer] Patient Education 2022 Get Me Listed. 04/14/2024 10:30:41 Acute Bronchitis, Adult Acute Bronchitis, [...] condition. Follow these instructions at home: Take edkz-khb-yfyzddw and prescription medicines only as told by [...] and water are not available, use hand front end web developer. Avoid contact with people who have cold [...] it is easier to cough up. Take tcxd-zus-dinhdhl and prescription medicines only as told by [...] provider. Document Revised: 02/27/2023 Document Reviewed: 03/20/2022 [employer] Patient Education 2022 [employer] 04/14/2024 10:30:39 Cancer Screening for Women Cancer [...] if anything looks unusual. Women with a tynean-vhpk-duskrg risk for skin cancer may want to see a clinical specialist medical device (flue lining dipper) for an annual body check. What are the benefits of screening? Cancer screening is done to look for cancer in the very early stages, before it spreads and becomes harder to treat and before you would start to notice symptoms. Finding cancer early improves the chances of successful treatment. It may save your life. Where to find more information [place] Cancer Society: www.cancer.org Centers for Disease Control and Prevention: www.cdc.gov National Cancer [place]: www.cancer.gov U.S. Department of Health and Human [...] provider. Document Revised: 04/15/2022 Document Reviewed: 10/13/2020 [employer] Patient Education 2022 Get Me Listed. Follow Up Care 04/12/2024 08:09:12 With:Vilma John FAM, MED Address: [address], [facility] [address] [address] When:Within 1 Week(s) [facility] 02-06-2024 Hospital Discharge instructions [...] to strengthen the arm. General instructions Take deoa-sam-tcrjags and prescription medicines only as told by [...] provider. Document Revised: 08/02/2022 Document Reviewed: 08/02/2022 [employer] Patient Education 2022 [employer] 02/06/2024 11:57:02 Degenerative Disk Disease Degenerative [...] Follow these instructions at home: Medicines Take mmsg-itj-chlgsvb and prescription medicines only as told by your health care provider. Ask your health care provider if the medicine prescribed to you: ?Requires you to avoid driving or using machinery. ?Can cause constipation. You may need to take these actions to prevent or treat constipation: ?Drink enough fluid to keep your urine pale yellow. ?Take zmmy-fft-mcoigui or prescription medicines. ?Eat foods that are [...] lower back are most often affected. Take bici-trc-ndzskmg and prescription medicines only as told by your health care provider. This information is not intended to replace advice given to you by your health care provider. Make sure you discuss any questions you have with your health care provider. Document Revised: 03/01/2021 Document Reviewed: 03/01/2021 [employer] Patient Education 2022 Get Me Listed. 02/06/2024 11:56:38 Major Depressive Disorder, Adult Major [...] things, which may include: Your personality traits. [place] or conditioned behaviors or thoughts or feelings [...] your health care provider. General instructions Take bsur-mbw-ymetsgz and prescription medicines only as told by your health care provider. Eat a healthy diet and get plenty of sleep. Consider joining a support group. Your health care provider may be able to recommend one. Keep all follow-up visits as told by your health care provider. This is important. Where to find more information National [place] on Mental Illness: www.julia.org [place] National [place] of Mental Health: www.nimh.nih.gov Contact a health [...] department or: Call your local emergency services (359 in the [place] Call a suicide crisis helpline, such as the National Suicide Prevention Lifeline at or 075 in the [place] This is open 24 hours a day in the [place] Text the Crisis Text Line at 682383 (in the [place] Summary Major depressive disorder [...] provider. Document Revised: 06/12/2022 Document Reviewed: 10/28/2020 [employer] Patient Education 2022 [employer] 02/06/2024 11:56:36 Hypothyroidism Hypothyroidism Hypothyroidism is when [...] away. Follow these instructions at home: Take lmar-cvk-vvokuqh and prescription medicines only as told by [...] provider. Document Revised: 11/19/2022 Document Reviewed: 11/19/2022 [employer] Patient Education 2022 Get Me Listed. [facility] 01-15-2024 Hospital Discharge instructions [...] things, which may include: Your personality traits. [place] or conditioned behaviors or thoughts or feelings [...] your health care provider. General instructions Take prjt-gzu-betdfnz and prescription medicines only as told by your health care provider. Eat a healthy diet and get plenty of sleep. Consider joining a support group. Your health care provider may be able to recommend one. Keep all follow-up visits as told by your health care provider. This is important. Where to find more information National [place] on Mental Illness: www.julia.org [place] National [place] of Mental Health: www.nimh.nih.gov Contact a health [...] department or: Call your local emergency services (301 in the [place] Call a suicide crisis helpline, such as the National Suicide Prevention Lifeline at or 533 in the [place] This is open 24 hours a day in the [place] Text the Crisis Text Line at 802023 (in the [place] Summary Major depressive disorder [...] provider. Document Revised: 06/12/2022 Document Reviewed: 10/28/2020 [employer] Patient Education 2022 Get Me Listed. 01/15/2024 18:54:21 Cough, Adult Cough, Adult Coughing [...] Follow these instructions at home: Medicines Take onpj-rus-vsguoer and prescription medicines only as told by [...] of a condition that needs treatment. Take qnxs-mqv-kbrjwcl and prescription medicines only as told by [...] provider. Document Revised: 12/06/2019 Document Reviewed: 12/06/2019 [employer] Patient Education 2022 Get Me Listed. 01/15/2024 18:54:18 Vitamin B12 Deficiency Vitamin B12 [...] added to them (are fortified), such as lblcf-uw-pbt breakfast cereals. Check the label on the [...] provider. Document Revised: 07/12/2022 Document Reviewed: 07/12/2022 [employer] Patient Education 2022 Get Me Listed. 01/15/2024 18:54:15 Paresthesia Paresthesia Paresthesia is an [...] hard liquor (44 mL). General instructions Take mgvl-ifi-rhbdvjj and prescription medicines only as told by [...] provider. Document Revised: 07/29/2022 Document Reviewed: 07/29/2022 [employer] Patient Education 2022 [employer] 01/15/2024 18:54:13 Cervical Radiculopathy Cervical Radiculopathy Cervical [...] your health care provider. Managing pain Take scug-man-xktypmd and prescription medicines only as told by [...] provider. Document Revised: 05/23/2022 Document Reviewed: 05/23/2022 [employer] Patient Education 2022 Get Me Listed. 01/15/2024 18:54:09 Migraine Headache Migraine Headache A [...] Follow these instructions at home: Medicines Take ntle-hzm-gzddann and prescription medicines only as told by your health care provider. Ask your health care provider if the medicine prescribed to you: ?Requires you to avoid driving or using heavy machinery. ?Can cause constipation. You may need to take these actions to prevent or treat constipation: ?Drink enough fluid to keep your urine pale yellow. ?Take dtvt-ume-texepdu or prescription medicines. ?Eat foods that are [...] provider. Document Revised: 03/10/2020 Document Reviewed: 12/30/2019 [employer] Patient Education 2022 Get Me Listed. Follow Up Care 01/12/2024 07:56:41 With:Vilma John FAM, MED Address: [address] [place] [address], [facility] A [address] [address]- When:Within 1 Month(s) Comments:f/u labs, results from MRI, neurochanges and migraines, persistent cough [facility] 10-30-2023 Hospital Discharge instructions [...] told by your health care provider. Take pako-sex-sjsdyez and prescription medicines only as told by [...] provider. Document Revised: 05/03/2021 Document Reviewed: 05/03/2021 [employer] Patient Education 2022 Get Me Listed. 10/30/2023 11:25:43 Preventing Vitamin D Deficiency Preventing [...] such as almond, soy, or oat milks. ?[place] juice. ?Margarine. When choosing foods, check the [...] including vitamins, herbs, eye drops, creams, and ukum-npc-lnczcak medicines. Take srqk-iev-ecubfck and prescription medicines only as told by [...] provider. Document Revised: 08/23/2022 Document Reviewed: 08/23/2022 [employer] Patient Education 2022 Get Me Listed. 10/30/2023 11:25:38 DASH Eating Plan DASH Eating [...] Dairy Whole or 2% milk, cream, and nzzx-zqr-lltw. Whole or full-fat cream cheese. Whole-fat or sweetened yogurt. Full-fat cheese. Nondairy creamers. Whipped toppings. Processed cheese and cheese spreads. Fats and oils Butter. Stick margarine. Lard. Shortening. Ghee. Torres fat. Tropical oils, such as coconut, palm kernel, or palm oil. Seasonings and condiments Onion salt, garlic salt, seasoned salt, table salt, and sea salt. [facility] sauce. Tartar sauce. Barbecue sauce. Teriyaki sauce. [...] more information National Heart, Lung, and Blood [place]: www.nhlbi.nih.gov [place] Heart Association: www.heart.org Academy of Nutrition and [...] provider. Document Revised: 10/20/2020 Document Reviewed: 10/20/2020 [employer] Patient Education 2022 Get Me Listed. 10/30/2023 11:25:37 Major Depressive Disorder, Adult Major [...] things, which may include: Your personality traits. [place] or conditioned behaviors or thoughts or feelings [...] your health care provider. General instructions Take bbhb-mix-woymmkc and prescription medicines only as told by your health care provider. Eat a healthy diet and get plenty of sleep. Consider joining a support group. Your health care provider may be able to recommend one. Keep all follow-up visits as told by your health care provider. This is important. Where to find more information National [place] on Mental Illness: www.julia.org [place] National [place] of Mental Health: www.nimh.nih.gov Contact a health [...] department or: Call your local emergency services (314 in the [place] Call a suicide crisis helpline, such as the National Suicide Prevention Lifeline at or 843 in the [place]. This is open 24 hours a day in the [place] Text the Crisis Text Line at 574511 (in the [place].S.). Summary Major depressive disorder [...] provider. Document Revised: 06/12/2022 Document Reviewed: 10/28/2020 [employer] Patient Education 2022 Get Me Listed. Follow Up Care 09/26/2023 10:41:21 With:Vilma John FAM, MED Address: [address] [place], [place] [address] Business (1) When:02/04/2024 Comments:for f/u [facility] 09-26-2023 Hospital Discharge instructions [...] things, which may include: Your personality traits. [place] or conditioned behaviors or thoughts or feelings [...] your health care provider. General instructions Take ixfl-duf-xeqktkw and prescription medicines only as told by your health care provider. Eat a healthy diet and get plenty of sleep. Consider joining a support group. Your health care provider may be able to recommend one. Keep all follow-up visits as told by your health care provider. This is important. Where to find more information National [place] on Mental Illness: www.julia.org [place] National [place] of Mental Health: www.nimh.nih.gov Contact a health [...] department or: Call your local emergency services (091 in the [place] Call a suicide crisis helpline, such as the National Suicide Prevention Lifeline at or 461 in the [place] This is open 24 hours a day in the [place] Text the Crisis Text Line at 778857 (in the [place].S.). Summary Major depressive disorder [...] provider. Document Revised: 06/12/2022 Document Reviewed: 10/28/2020 [employer] Patient Education 2022 Get Me Listed. 09/26/2023 10:39:53 Insomnia Insomnia Insomnia is a [...] go back to bed. General instructions Take cdsz-sdz-dyuzlsj and prescription medicines only as told by [...] the National Suicide Prevention Lifeline at or 598. This is open 24 hours a day. Text the Crisis Text Line at 997568. Summary Insomnia is a sleep disorder that [...] provider. Document Revised: 10/28/2022 Document Reviewed: 10/28/2022 [employer] Patient Education 2022 [employer] 09/26/2023 10:39:44 Heart Disease Prevention Heart Disease [...] of hard liquor (44 mL). Medicines Take mksi-aii-gbhdcle and prescription medicines only as told by [...] Centers for Disease Control and Prevention: www.cdc.gov/heartdisease [place] Heart Association: www.heart.org Summary Heart disease is [...] provider. Document Revised: 07/17/2022 Document Reviewed: 07/17/2022 [employer] Patient Education 2022 Get Me Listed. 09/26/2023 10:39:43 Form - Blood Pressure Record [...] provider. Document Revised: 08/01/2022 Document Reviewed: 08/01/2022 [employer] Patient Education 2022 Get Me Listed. 09/26/2023 10:39:42 DASH Eating Plan DASH Eating [...] Dairy Whole or 2% milk, cream, and xozt-spz-fcsf. Whole or full-fat cream cheese. Whole-fat or [...] more information National Heart, Lung, and Blood [place]: www.nhlbi.nih.gov [place] Heart Association: www.heart.org Academy of Nutrition and [...] provider. Document Revised: 10/20/2020 Document Reviewed: 10/20/2020 [employer] Patient Education 2022 Get Me Listed. 09/26/2023 10:39:41 Acute Bronchitis, Adult Acute Bronchitis, [...] condition. Follow these instructions at home: Take avob-cns-nftnhpx and prescription medicines only as told by [...] and water are not available, use hand front end web developer. Avoid contact with people who have cold [...] it is easier to cough up. Take byoz-hgp-xwpnevi and prescription medicines only as told by [...] provider. Document Revised: 03/20/2022 Document Reviewed: 03/20/2022 [employer] Patient Education 2022 Get Me Listed. Follow Up Care 09/19/2023 09:43:18 With:Vilma John [facility] Address: [address] [place], [place] [address]- When:Within 1 Month(s) Comments:Discussed labs, annual wellness [facility] 06-29-2023 Hospital Discharge instructions [...] follow-up visits. This is important. Medicines Take lime-tdt-rfjzuvj and prescription medicines only as told by [...] provider. Document Revised: 09/24/2022 Document Reviewed: 09/24/2022 [employer] Patient Education 2022 Get Me Listed. 06/29/2023 16:49:29 Health Maintenance, Female Health Maintenance, [...] provider. Document Revised: 04/08/2022 Document Reviewed: 04/08/2022 [employer] Patient Education 2022 Get Me Listed. 06/29/2023 16:49:28 Health Maintenance After Age 65 [...] of the medicines you are taking, including gpvn-gly-wiebkwt medicines. Ask your health care provider about [...] feel dizzy, tiredness (fatigue), or off-balance. Take oikb-dli-lxcomzd and prescription medicines only as told by [...] provider. Document Revised: 04/08/2022 Document Reviewed: 04/08/2022 [employer] Patient Education 2022 Get Me Listed. Follow Up Care 05/20/2023 09:31:12 With:Camryn Alves Address: [facility] [employer], [facility] [place] [address]- When:Within 1 Month(s) Comments:f/u CHRISTIANO, med recheck: hydroxyzine. recheck BP With:Camryn Alves Address: [facility] [employer], [facility] [place] [address]- When:Within 6 Month(s) Comments:[facility] 12-17-2022 Evaluation + Plan note Future Scheduled TestsVitamin D 25 Hydroxy 12/17/22 [facility] [place] 08-02-2021 Evaluation + Plan note Future Scheduled TestsUS Breast Unilateral Rt Complete 08/02/21 [facility] 04-09-2021 Note HNO ID: [id number] Author: RT Quintin(R) Service: ? Author Type: Marking Devices Assembler Type: Progress Notes Filed: 04/09/2021 3:21 PM [...] RT Quintin(R) April 09, 2021 3:21 PM [facility] 04-09-2021 Note HNO ID: [id number] Author: Nico Newell MD Service: ? Author Type: Physician Type: Progress Notes Filed: 04/09/2021 5:09 PM Note Text: NEW CONSULT:RHEUMATOLOGY SERVICE SERVICE DATE: 04/09/2021 SERVICE TIME: 2:09 PM REASON FOR CONSULT: +YOSELIN REQUESTING PHYSICIAN: Cristin Roblero CNP [address] [facility] [address] PRIMARY CARE PHYSICIAN: Cristin Roblero CNP, CUSTODIAL MANAGER Patient's Name: Kermit Rosen [address] [facility] [address] Accompanied by: self This consult was requested for my medical opinion regarding the rheumatologic evaluation of the patient's +YOSELIN problems, and my final recommendations will be communicated to the requesting health care provider by way of the shared medical record for internal providers or letter via the [employer] Service for external providers. April 09, [...] Reports pain 09/09 at it's worse No falls/fx/trauma/illness/oral sores/rash/hairloss/jaw pain/dysphagia/epistaxis/hemoptysi [...] yes Dactylitis: no H/o precedent/frequent infection(s): no Enthesopathy/Widen's/heel/planta r tenderness: no Skin thickening, psoriasis, photosensitivity, purpura: no Nail changes: stress Alpecia, patchy: yes Eye inflammation: glasses SICCA: dry eyes/lips/mouth Oral/nasal/genital ulcers: no GI problems-diarrhea/bleeding/IBD/Glu ten intolerence/Dysphagia: gerd Raynaud's phenomenon/digital ulcers: no Organ inv-Serositis: no Lung disease/ILD: no Myopathy/proximal muscle weakness: no Abnormal Urine or urethritis: no Renal/liver disease: kidney stone 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 [facility] Evaluation + Plan note Future Appointments Appointment Date:09/12/2022 10:20:00 AM Scheduled Provider:Malinda Rubio NP Location:[facility] Appointment Type:FM Open Diagnostic Tests PendingT3 Free 09/07/22Estradiol Level 09/07/22Estrogens Total 09/07/22Testosterone F&T 09/07/22Progesterone Level 09/07/22DHEA 09/07/22DHEAS 09/07/22 [facility] Evaluation + Plan note Future Appointments Appointment Date:01/28/2023 10:20:00 AM Scheduled Provider:Cory JOSHUA MD Location:[facility] Appointment Type:GS Post Op 15 [facility] Evaluation + Plan note Future Appointments Appointment Date:09/22/2023 11:00:00 AM Scheduled Provider:Camryn Alves Location:[facility] Appointment Type:FM Open Future Scheduled TestsTSH With T4fr Reflex 08/19/23Vitamin D 25 Hydroxy 08/19/23CBC w/ Auto Diff 08/19/23Comprehensive Metabolic Panel 08/19/23Lipid Panel 08/19/23XR Chest 2 Views 08/19/23 [facility] Evaluation + Plan note Future Appointments Appointment Date:10/29/2023 10:00:00 AM Scheduled Provider:Vilma John Location:[facility] Appointment Type:FM Open Future Scheduled TestsDHEA 09/26/23Estrogens Total 09/26/23TSH With T4fr Reflex 08/19/23Vitamin D 25 Hydroxy 08/19/23CBC w/ Auto Diff 08/19/23CBC w/ Auto Diff 09/26/23Comprehensive Metabolic Panel 08/19/23Comprehensive Metabolic Panel 09/26/23Lipid Panel 08/19/23Lipid Panel 09/26/23Progesterone Level 09/26/23Testosterone Level Total 09/26/23 [facility] Evaluation + Plan note Future Appointments Appointment Date:10/29/2023 10:00:00 AM Scheduled Provider:Vilma John Location:[facility] Appointment Type:FM Open Diagnostic Tests PendingProgesterone Level 10/18/23Estrogens Total 10/18/23Testosterone Level Total 10/18/23DHEA 10/18/23 Future Scheduled TestsTSH With T4fr Reflex 08/19/23Vitamin D 25 Hydroxy 08/19/23CBC w/ Auto Diff 08/19/23Comprehensive Metabolic Panel 08/19/23Lipid Panel 08/19/23 [facility] Evaluation + Plan note Future Appointments Appointment Date:05/26/2024 11:20:00 AM Scheduled Provider:Vilma John Location:[facility] Appointment Type: Open Appointment Date:05/26/2024 01:00:00 PM Scheduled Provider: Location:[facility] Appointment Type: Medicare Wellness Subsequent Future Scheduled TestsTSH With T4fr Reflex 10/30/23TSH With T4fr Reflex 08/19/23Vitamin D 25 Hydroxy 10/30/23Vitamin D 25 Hydroxy 08/19/23CBC w/ Auto Diff 08/19/23Comprehensive Metabolic Panel 08/19/23Lipid Panel 08/19/23 [facility] Evaluation + Plan note Future Appointments Appointment Date:05/26/2024 11:20:00 AM Scheduled Provider:Vilma John Location:[facility] Appointment Type: Open Appointment Date:05/26/2024 01:00:00 PM Scheduled Provider: Location:[facility] Appointment Type: Medicare Wellness Subsequent Future Scheduled TestsSedimentation Rate Automated 01/15/24TSH With T4fr Reflex 10/30/23TSH With T4fr Reflex 08/19/23Vitamin D 25 Hydroxy 10/30/23Vitamin D 25 Hydroxy 08/19/23CBC w/ Auto Diff 08/19/23C-Reactive Protein 01/15/24Free T4 01/15/24Vitamin B12 Level 01/15/24MRA Neck w/o Contrast 01/15/24MRI Brain w/ + w/o Contrast 01/15/24MRI Spine Cervical w/o Contrast 01/15/24 [facility] Evaluation + Plan note Future Appointments Appointment Date:01/22/2024 06:00:00 PM Scheduled Provider: Location:[facility] Appointment Type:MRI Brain ([facility]) Appointment Date:05/26/2024 11:20:00 AM Scheduled Provider:Vilma John Location:[facility] Appointment Type: Open Appointment Date:05/26/2024 01:00:00 PM Scheduled Provider: Location:[facility] Appointment Type: Medicare Wellness Subsequent Future Scheduled TestsSedimentation Rate Automated 2/15/24TSH With T4fr Reflex 10/30/23TSH With T4fr Reflex 08/19/23Vitamin D 25 Hydroxy 10/30/23Vitamin D 25 Hydroxy //23CBC w/ Auto Diff 08/19/23C-Reactive Protein 01/15/24Free T4 01/15/24Vitamin B12 Level 01/15/24MRI Brain w/ + w/o Contrast 01/22/24 [facility] Evaluation + Plan note Future Appointments Appointment Date:05/26/2024 11:20:00 AM Scheduled Provider:Vilma John Location:[facility] Appointment Type: Open Appointment Date:05/26/2024 01:00:00 PM Scheduled Provider: Location:[facility] Appointment Type: Medicare Wellness Subsequent Future Scheduled TestsSedimentation Rate Automated 01/15/24TSH With T4fr Reflex 10/30/23TSH With T4fr Reflex 08/19/Vitamin D 25 Hydroxy 10/30/23Vitamin D 25 Hydroxy 08/19/23CBC w/ Auto Diff 08/19/23C-Reactive Protein 01/15/24Free T4 01/15/24Vitamin B12 Level 01/15/24 [facility] Evaluation + Plan note Future Appointments Appointment Date:05/26/2024 11:20:00 AM Scheduled Provider:Vilma John Location:[facility] Appointment Type: Open Appointment Date:05/26/2024 01:00:00 PM Scheduled Provider: Location:[facility] Appointment Type: Medicare Wellness Subsequent Future Scheduled TestsTSH With T4fr Reflex 10/30/TSH With T4fr Reflex //23Vitamin D 25 Hydroxy 3023Vitamin D 25 Hydroxy 9/19/23CBC w/ Auto Diff 08/19/23 [facility] Evaluation + Plan note Future Appointments Appointment Date:05/12/2024 02:40:00 PM Scheduled Provider:Vilma John Location:[facility] Appointment Type: Open Appointment Date:05/26/2024 11:20:00 AM Scheduled Provider:Vilma John Location:[facility] Appointment Type: Open Appointment Date:05/26/2024 01:00:00 PM Scheduled Provider: Location:[facility] Appointment Type: Medicare Wellness Subsequent Future Scheduled TestsTSH With T4fr Reflex 10/30/23TSH With T4fr Reflex 08/19/23Vitamin D 25 Hydroxy 10/30/23Vitamin D 25 Hydroxy 08/19/23CBC w/ Auto Diff 08/19/23 [facility] [place] Evaluation + Plan note Future Appointments Appointment Date:05/26/2024 11:20:00 AM Scheduled Provider:Vilma John Location:[facility] Appointment Type: Open Appointment Date:05/26/2024 01:00:00 PM Scheduled Provider: Location:[facility] Appointment Type: Medicare Wellness Subsequent Future Scheduled TestsIgE, Quant 05/12/24Complement Total (CH50) 05/12/24ANA w/Reflex if POS 05/12/24IgA, Quant. 05/12/24IgG, Quant. 05/12/24IgM, Quant 05/12/24TSH With T4fr Reflex 08/19/23TSH With T4fr Reflex 05/12/24Vitamin D 25 Hydroxy 08/19/23Vitamin D 25 Hydroxy 05/12/24Basic Metabolic Panel 05/12/24CBC w/ Auto Diff 08/19/23CBC w/ Auto Diff 05/12/24 [facility] Evaluation + Plan note Future Appointments Appointment Date:05/26/2024 11:20:00 AM Scheduled Provider:Vilma John Location:[facility] Appointment Type:FM Open Appointment Date:05/26/2024 01:00:00 PM Scheduled Provider: Location:[facility] Appointment Type: Medicare Wellness Subsequent Diagnostic Tests PendingVitamin D 25 Hydroxy 05/13/24IgA, Quant. 05/13/24IgG, Quant. 05/13/24IgM, Quant 05/13/24IgE, Quant 05/13/24ANA w/Reflex if POS 05/13/24Complement Total (CH50) 05/13/24 Future Scheduled TestsTSH With T4fr Reflex 08/19/23Vitamin D 25 Hydroxy 08/19/23CBC w/ Auto Diff 08/19/23 [facility] Evaluation + Plan note Future Appointments Appointment Date:08/25/2024 10:00:00 AM Scheduled Provider:Vilma John Location:[facility] Appointment Type: Open Appointment Date:05/25/2025 02:30:00 PM Scheduled Provider: Location:[facility] Appointment Type: Medicare Wellness Subsequent Future Scheduled TestsTSH With T4fr Reflex 08/19/23Vitamin D 25 Hydroxy 08/19/23CBC w/ Auto Diff 08/19/23 [facility] Evaluation + Plan note Future Appointments Appointment Date:05/25/2025 02:30:00 PM Scheduled Provider: [facility] Type: Medicare Wellness Subsequent [facility] Evaluation + Plan note Future Appointments Appointment Date:11/03/2024 01:40:00 PM Scheduled Provider:Vilma John Location:[facility] Appointment Type: Open Appointment Date:05/25/2025 02:30:00 PM Scheduled Provider: Location:[facility] Appointment Type: Medicare Wellness Subsequent [facility] Evaluation + Plan note Future Appointments Appointment Date:05/16/2025 08:00:00 AM Scheduled Provider: Location:[facility] Appointment Type:Surgery FT Appointment Date:05/25/2025 02:30:00 PM Scheduled Provider: Location:[facility] Appointment Type:FM Medicare Wellness Subsequent [facility] General Surgery [place] Evaluation note Diagnosis Bilateral hand pain Pain in limb [facility] Work Phone: Evaluation note* Diagnosis Coronary artery disease, non-occlusive Coronary atherosclerosis of unspecified type of vessel, [place] or graft Dyslipidemia Other and unspecified hyperlipidemia Essential hypertension Unspecified essential hypertension Mitral valve insufficiency, unspecified etiology Hypothyroidism, unspecified type BMI 23.0-23.9, adult Never smoked tobacco documented in this encounter [facility] Work Phone: Evaluation note* Diagnosis Postoperative visit S/P D&C (status post dilation and curettage) Other postprocedural status documented in this encounter [facility]* Diagnosis Pre-op examination Thickened endometrium Nonspecific (abnormal) findings on radiological and other examination of genitourinary organs Endometrial mass documented in this encounter [facility]* Diagnosis 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 Plantar verruca Pain in right foot Pain in soft tissues of limb Pain in left foot Pain in soft tissues of limb [facility] No data available for this section [facility] No data available for this section [facility] No data available for this section [facility] Summary Purpose Family History No Family [...] section and content) DATE CREATED AUTHOR 05/26/2018 [facility] DATE CREATED AUTHOR AUTHOR'S ORGANIZ ATION 11/11/2019 [facility] DATE CREATED AUTHOR AUTHOR'S ORGANIZ ATION 2022 [facility] DATE CREATED AUTHOR AUTHOR'S ORGANIZ ATION 04/11/2023 [facility] DATE CREATED AUTHOR AUTHOR'S ORGANIZ ATION 07/16/2023 [facility] DATE CREATED AUTHOR AUTHOR'S ORGANIZ ATION 07/16/2023 [facility] DATE CREATED AUTHOR AUTHOR'S ORGANIZ ATION 05/15/2024 Raza Tate [facility] DATE CREATED AUTHOR AUTHOR'S ORGANIZ ATION 05/16/2024 Arza Abraham [facility] DATE CREATED AUTHOR AUTHOR'S ORGANIZ ATION 05/21/2024 Raza Abraham [facility] DATE CREATED AUTHOR AUTHOR'S ORGANIZ ATION 05/27/2024 Raza Tate [facility] DATE CREATED AUTHOR AUTHOR'S ORGANIZ ATION 10/12/2024 [facility] DATE CREATED AUTHOR AUTHOR'S ORGANIZ ATION 11/11/[address] [facility] DATE CREATED AUTHOR AUTHOR'S ORGANIZ ATION 11/14/2024 Tennyson Abraham [facility] DATE CREATED AUTHOR AUTHOR'S ORGANIZ ATION 11/20/2024 [facility] dical Specialists EPIC Care Team (unrecognized sect ion and content) Apron Operator Relationship Specialty Start Date End Date Cristin Roblero, DONAT[address] [place] [address] PCP - General Family Medicine 11/20/20 Team Status: Active Member Role Status Dates Camryn De La Rosa NP-C Primary Care Provider Act franc Team Status: Inactive Member Role Status Dates Camryn De La Rosa NP-C Primary Care Provider Act franc Jay Jay Pisano MD Attending Provider Active Team Status: Inactive Member Role Status Dates Ryley Marinelli Attending Provider Active Camryn De La Rosa , [employer]-C Primary Care Provider Act franc Apron Operator Relationship Specialty Start Date End Date Vilma Mcallister NP [address], [place] [address] Referring Physician Family Medicine 11/13/23 Apron Operator Relationship Specialty Start Date End Date Vilma Mcallister NP [address], [place] [address] Referring Physician Family Medicine 11/13/23 Apron Operator Relationship Specialty Start Date End Date Vilma Mcallister NP [address], [place] [address] Referring Physician Family Medicine 11/13/23 Apron Operator Relationship Specialty Start Date End Date Vilma Mcallister NP [address], [place] [address] Referring Physician Family Medicine 11/13/23 Apron Operator Relationship Specialty Start Date End Date Vilma Mcallister NP [address], [place] [address] Referring Physician Family Medicine 11/13/23 Apron Operator Relationship Specialty Start Date End Date Reggie Martinez MD [address] [place] [address] PCP - General Family Medicine 11/18/24 Vilma Mcallister NP [address], [place] [address] Referring Physician Family Medicine 11/13/23 Apron Operator Relationship Specialty Start Date End Date Reggie Martinez MD [address] [place] [address] PCP - General Family Medicine 11/18/24 Vilma Mcallister NP [address] [place] [address] Referring Physician Family Medicine 11/13/23 Source Comments (unrecognize d section and content) In the event this informatio n is protected by the Federal Confidentiality of Alcohol and Drug Abuse Patient Records regulations: The Federal rules restrict any use of the information to criminally investigate or prosecute any alcohol or drug abuse patient.[facility] Goals (unrecognized section and content) Goals may be documented in a n alternate section Reason for Visit (unrecogniz ed section and content) Reason Comments Annual Exam Reason Comments Post-op Visit Pt present today for post operative visit. Pt had a D&C on 11/05/2024. Reason Comments Pre-op Visit Reason Comments Plantar Warts F/U lesions FOR RECORDS PERTAINING TO PATIENTS WHO ARE [...] BE BASED ON THE PRIMARY CLINICAL RECORDS. [employer] provides no warranty or guarantee of the accuracy or completeness of information in this document.
== END 2024-11-25 15:09 | disposition home or self-care (01) ==
LOC: MAMMO 15:08
PROVIDERS: Visit Provider Obstetrics & Gynecology
DX: R92.8 Other abnormal and inconclusive findings on diagnostic imaging of breast (principal)
CPT/HCPCS: 77066; G0279

== ENCOUNTER 2025-08-18 19:33 | Outpatient (REF) | payer OTHER, SELFPAY ==
--- OUTSIDE RECORDS SUMMARY | 2025-08-18 11:30 | XMS_ITS | Encounter Summary ---
Author Organization [facility] Address [address] [place] [address] Care Team Providers Care Mma Fighter Name Role Phone Vilma Mcallister NP Unavailable [phone] Reggie Martinez MD Primary Care Provider Reason for Visit * Reason Comments Well Women Visit Encounter Details Date Type Department Care Team (Latest Contact Info) Description 08/18/2025 11:30 AM EDT Procedure Visit JODIE JIAN [address] [place] [id number] Taniya Kebede PA [address] [place], [facility] Well woman exam with routine gynecological exam; Postmenopausal state; Complex ovarian cyst Social History Tobacco Use Types Packs/Day Years Used Date Smoking Tobacco: Never Alcohol Use Standard Drinks/Week Comments Yes 0 (1 standard drink = 0.6 oz pure alcohol) Alcohol: 1 or 2 drinks, 2 to 4 times a month; Caffeine: 1-2 cups/day PHQ-2 Answer Date Recorded Patient Health Questionnaire-2 Score 0 06/10/2023 Comments No Sex and Gender Information Value Date Recorded Sex Assigned at Not on file Legal Sex Female 8:11 PM EDT Gender Identity Not on file Sexual Orientation Not on file documented as of this encounter Last Filed Vital Signs Vital Sign Reading Time Taken Comments Blood Pressure 142/72 08/18/2025 11:51 AM EDT Pulse - - Temperature - - Respiratory Rate - - Oxygen Saturation - - Inhaled Oxygen Concentration - - Weight 54.8 kg (120 lb 12 oz) 08/18/2025 11:51 A M EDT Height - - Body Mass Index 22.82 07/21/2025 2:10 PM EDT documented in this encounter Progress Notes * DIEGO Leon - 08/18/2025 11:30 AM EDT Reason for Appointment: Patient ID: Elio Rosen is a 75 y.o. female who presents for Well Women Visit Patient presents today for Annual Exam. MEDICATIONS Current Outpatient Medications Medication Instructions albuterol HFA 90 mcg/act inhaler [facility] Thyroid 30 MG tablet Every 24 hours aspirin 81 MG EC tablet Every 24 hours coenzyme Q-10 100 mg, Daily RT Elderberry 500 MG capsule metoprolol succinate XL (TOPROL-XL) 50 mg, Daily RT nitroglycerin (NITROSTAT) 0.4 mg Oxytocin-Sodium Chloride 15-0.9 UT/250ML-% solution Infuse into a venous catheter progesterone (ENDOMETRIN) 100 mg, 2 times daily sertraline (ZOLOFT) 50 mg, Daily valsartan (Diovan) 160 MG tablet Every 24 [...] sites 04/09/2021 Postmenopausal osteoporosis of multiple sites 04/09/2021 Postmenopausal bleeding 06/04/2023 Personal history of breast cancer 06/04/2023 Pain of breast 06/04/2023 Osteoporosis 06/04/2023 Occipital neuralgia 06/04/2023 Numbness and tingling of foot 04/09/2021 Numbness and tingling in both hands 04/09/2021 Moderate episode of recurrent major depressive disorder (HCC) 06/04/2023 Mild CAD 06/04/2023 Hypothyroid 06/04/2023 Hypokalemia 06/04/2023 Hormone imbalance 06/04/2023 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 Hair loss 06/04/2023 Fibrocystic changes of right breast 06/04/2023 Fall 06/04/2023 DCIS (ductal carcinoma in situ) 06/04/2023 Dry mouth 04/09/2021 Dry eye syndrome of both eyes 04/09/2021 Chronic sinusitis 06/04/2023 Chronic GERD 06/04/2023 Cervicalgia 04/09/2021 Breast lump in upper outer quadrant 06/04/2023 Breast cancer of upper-inner quadrant of right female breast (HCC) 06/04/2023 BMI 24.0-24.9, adult 06/04/2023 Bilateral hand pain 04/09/2021 Benign essential hypertension 06/04/2023 Atrophy of vagina 06/04/2023 B12 deficiency 06/04/2023 Elevated sed rate 04/09/2021 Keratoconjunctivitis sicca of both eyes not specified as Sjogren's 11/10/2023 Age-related nuclear cataract of both eyes 11/10/2023 Blepharitis of upper and lower eyelids of both eyes 11/10/2023 Personal history of malignant neoplasm of breast 06/30/2025 Abnormal mammogram 06/30/2025 Resolved Ambulatory Problems Diagnosis Date Noted No Resolved Ambulatory Problems Past Medical History: Diagnosis Date Abnormal uterine bleeding (AUB) BMI 23.0-23.9, adult Breast cancer in female ([facility]) Breast cancer screening Dizziness and giddiness Dry eyes Encounter for gynecological examination (general) (routine) without abnormal findings History of lumpectomy of right breast Hypertension Iron deficiency anemia OC (onychocryptosis) OM (onychomycosis) Pain in breast Plantar verruca Post menopausal syndrome Rectocele Vaginal atrophy Ventral hernia HISTORY PAST MEDICAL HISTORY SOCIAL HISTORY Past Medical History: Diagnosis Date Abnormal uterine bleeding (AUB) Anxiety BMI 23.0-23.9, adult Breast cancer in female ([facility]) Breast cancer screening Chronic GERD Dizziness and giddiness Dry eyes Encounter for gynecological examination (general) (routine) without abnormal findings History of lumpectomy of right breast Hypertension Iron deficiency anemia Mild CAD OC (onychocryptosis) Occipital neuralgia OM (onychomycosis) Osteoporosis Pain in breast Plantar verruca Post menopausal [...] Heart disease Sibling Stroke Sibling Cancer Sibling Breast cancer Sibling SURGICAL HISTORY Past Surgical History: Procedure Laterality Date BREAST BIOPSY Right BREAST LUMPECTOMY Right [place] Node DILATION AND CURETTAGE OF UTERUS 06/30/2023 [...] Exam Constitutional: Appearance: Normal appearance. She is well-developed. Genitourinary: Vulva normal. Cardiovascular: Rate and Rhythm: Normal rate and regular rhythm. Pulmonary: Effort: Pulmonary effort is normal. Breath sounds: Normal breath sounds. Abdominal: General: Bowel sounds are normal. There is no distension. Palpations: Abdomen is soft. Tenderness: There is no abdominal tenderness. There is no guarding or rebound. Musculoskeletal: General: No swelling. Normal range of motion. Right lower leg: No edema. Left lower leg: No edema. Neurological: Mental Status: She is alert and oriented to person, place, and time. Skin: General: Skin is warm and dry. Psychiatric: Mood and Affect: Mood normal. Behavior: Behavior normal. Vitals and nursing note reviewed. Exam conducted with a clipper machine operator present. Vitals: Estimated body mass index is 22.82 kg/m?? as calculated from the following: Height as of 07/21/25: 5' 1 . Weight as of this encounter: 120 lb 12 oz. BP: 142/72 No LMP recorded. Patient is postmenopausal. ASSESSMENT & PLAN ICD-10-CM 1. Well woman exam with routine gynecological exam Z01.419 THIN PREP TIS PAP AND HR HPV DNA 2. Postmenopausal state Z78.0 DEXA bone density 3. Complex ovarian cyst N83.299 Orders Placed This Encounter Procedures DEXA bone density Annual Wellness Exam: Patient presents today for routine annual exam. Patient states she has complaints of vaginal bleeding with intercourse. Patients vitals were reviewed and within normal limits. Growth and development is noted to be appropriate for age. No mental health concerns was expressed. Pap Smear: Speculum was inserted into the vagina and pap was obtained without difficulty. HPV testing was performed per age guideline. Patient was advised that pap results could take anywhere from 7 to 10 days to receive and our office will reach out to the patient with those once we have them. Patient can also view results via [employer]. I reinforced importance of condom use for STI prevention. Patient declined cultures to be performed with today's visit. Breast Exam: Upon examination, clinical breast exam was noted to be normal and screening mammogram was ordered and given to patient to have obtained. Patient was counseled on breast self-awareness, including the importance of knowing what is normal for her own breasts and promptly reporting any changes such as new lumps, skin dimpling, nipple discharge, or pain. Screening mammogram was recommended annually. Discussed signs and symptoms of breast cancer and when to seek medical attention. Answered all patient questions. DEXA Counseling: DEXA scan ordered and given to the patient to have performed for osteoporosis screening per guidelines. Patient counseled on bone health, including the importance of calcium and vitamin D intake, weight-bearing exercise, fall prevention, and avoiding tobacco and excessive alcohol. Discussed purposeof DEXA in assessing fracture risk and monitoring bone density. Patient advised results will be reviewed upon completion and next steps discussed as needed. Patient has history of estrogen receptive breast CA. She continues to have vaginal pain and bleeding with intercourse. Patient has had 2 D&C s for the bleeding which were negative. Patient continues to use oxytocin cream from [facility] but she states they have removed all other hormones due to breast ca. We discussed the use of coconut oil daily to help with her vaginal dryness and bleeding. Weexplained using a hormone cream is not advised. Follow Up: Patient is to return to our office in one year for annual exam unless needed otherwise. Documented by DIEGO Leon on behalf of: DIEGO eLon documented in this encounter Plan of Treatment Upcoming Encounters Date Type Department Care Team (Late st Contact Info) Description 08/21/2026 1:00 PM EDT Procedure Visit [facility] [address] [place] [id number] Taniya Kebede PA [address] [place] [address] Scheduled Orders Name Type Priority Associated Diagnoses Orde r Schedule DEXA bone density Imaging Routine Postmenopausal state Expected: 08/18/2025 (Approximate), Expires: 08/18/2026 THIN PREP TIS PAP AND HR HPV DNA Pathology and Cytology Routine Well woman exam with routine gynecological exam Ordered: 08/18/2025 documented as of this encounter Visit Diagnoses Diagnosis Well woman exam with routine gynecological exam Routine gynecological examination Postmenopausal state Asymptomatic postmenopausal status (age-related) (natural) Complex ovarian cyst documented in this encounter Care Teams Mma Fighter Relationship Specialty Start Date End Date Reggie Martinez MD [address] [place] [address] PCP - General Family Medicine 11/18/24 Vilma Mcallister NP [address] [place] [address] Referring Physician Family Medicine 11/13/23 documented as of this encounter
--- OUTSIDE RECORDS SUMMARY | 2025-08-18 19:36 | XMS_ITS | Encounter Summary ---
Author Organization [facility] Address [address] [place] [address] Care Team Providers Care Director Of Quality Improvement Name Role Phone Vilma Mcallister NP Unavailable [phone] Reggie Martinez MD Primary Care Provider Encounter Details Date Type Department Care Team (Late Contact Info) Description 09/13/2024 Abstract [facility] [address] [address] Ryley Marinelli DO [address] [facility] [facility] [address] Angus Torrez, [id number] Social History Tobacco Use Types Packs/Day Years [...] on file documented as of this encounter Plan of Treatment Upcoming Encounters Date Type Department Care Team (Late Contact Info) Description 08/21/2026 1:00 PM EDT Procedure Visit JODIE JAIN [address] [address] Taniya Kebede PA [address] [facility] [address] documented as of this encounter Visit Diagnoses Not on filedocumented in this encounter Care Teams Director Of Quality Improvement Relationship Specialty Start Date End Date Reggie Martinez MD [address] [place] [address] PCP - General Family Medicine 11/18/24 Vilma Mcallister NP [address] [place] [address] Referring Physician Family Medicine 11/13/23 documented as of this encounter
--- OUTSIDE RECORDS SUMMARY | 2025-08-18 19:36 | XMS_ITS | Encounter Summary ---
Author Organization [facility] Address [address] [place] [address] Care Team Providers Care Language Tutor Name Role Phone Vilma Mcallister NP Unavailable [phone] Reggie Martinez MD Primary Care Provider [phone] Encounter Details Date Type Department Care Team (Late st Contact Info) Description 06/15/2025 Results Follow-Up JODIE [facility]rez [facility] [address] [place] [address] Syeda Gay LPN [address] [place] [address] Right diagnostic mammogram with tomosynthesis Social History Tobacco Use Types Packs/Day Years [...] on file documented as of this encounter Miscellaneous Notes * Result Encounter Note - Syeda Gay LPN - 06/15/2025 9:36 AM EDT Per [facility] breast bedrock, pt is scheduled to see a physician tomorrow and they will schedule herfor her biopsy then. documented in this encounter Plan of Treatment Upcoming Encounters Date Type Department Care Team (Late st Contact Info) Description 08/21/2026 1:00 PM EDT Procedure Visit [facility] [address] [address] Taniya Kebede PA [address] [place] [address] documented as of this encounter Visit Diagnoses Not on filedocumented in this encounter Care Teams Language Tutor Relationship Specialty Start Date End Date Reggie Martinez MD [address] [place] [address] PCP - General Family Medicine 11/18/24 Vilma Mcallister NP [address] [place] [address] Referring Physician Family Medicine 11/13/23 documented as of this encounter
--- OUTSIDE RECORDS SUMMARY | 2025-08-18 19:36 | XMS_ITS | Encounter Summary ---
Author Organization [facility] Address [address] [place] [address] Care Team Providers Care Risk Control Consultant Name Role Phone Vilma Mcallister NP Unavailable [phone] Reggie Martinez MD Primary Care Provider [phone] Encounter Details Date Type Department Care Team (Late Contact Info) Description 10/12/2024 Abstract [facility] [address] [place] [address] Ryley Marinelli DO [address] [facility] [address] Angus Torrez, [facility]11 Social History Tobacco Use Types Packs/Day Years [...] PM EDT Procedure Visit JODIE JAIN [address] [place] [address] Taniya Kebede PA [address] [place] [address] documented as of this encounter Visit Diagnoses Not on filedocumented in this encounter Care Teams Risk Control Consultant Relationship Specialty Start Date End Date Reggie Martinez MD [address] [place] [address] PCP - General Family Medicine 11/18/24 Vilma Mcallister NP [address] [place] [address] Referring Physician Family Medicine 11/13/23 documented as of this encounter
--- OUTSIDE RECORDS SUMMARY | 2025-08-18 19:36 | XMS_ITS | Clinical Summary ---
Author Organization [facility] Address [address] [place] [address] Phone Care Team Providers Care Clinical Research Physician Name Role Phone Unavailable Primary Care Provider Unavailabl e Allergies Active Allergy Reactions Criticality Noted Date Comments Atorvastatin Unknown 10/09/2023 Citalopram Unknown 10/09/2023 Diclofenac Unknown 10/09/2023 Doxycycline Unknown 10/09/2023 Hydrochlorothiazide Unknown 10/09/2023 Lisinopril Cough 10/09/2023 Propranolol Unknown 10/09/2023 Medications aspirin 81 mg EC tablet Take 1 tablet (81 mg) by mouth 3 times a week. Active nitroglycerin (Nitrostat) 0.[address] 1 tablet (0.4 mg) under the tongue every 5 minutes if needed for chest pain. Active sertraline (Zoloft) 50 mg tablet Take 1 tablet (50 mg) by mouth once daily. 1 Active thyroid, pork, (Tovey Thyroid) 30 mg tablet Take 1 tablet (30 mg) by mouth once daily in the morning. Take before meals. 0 Active metoprolol succinate XL (Toprol-XL) 50 mg 24 hr tabletIndications :Essential hypertension Take 1 tablet by mouth once daily 90 tablet 3 4 Active valsartan (Diovan) 160 mg tabletIndications :Essential hypertension Take 1 tablet (160 mg) by mouth once daily. 90 tablet 3 5 12/31/19 26 Active Active Problems Problem Noted Date Diagnosed Date BMI 23.0-23.9, adult 10/11/2024 Never smoked tobacco 10/11/2024 Coronary artery disease, non-occlusive Dyslipidemia 10/09/2023 Essential hypertension 10/09/2023 Hypothyroidism 10/09/2023 Mitral valve insufficiency 10/09/2023 Immunizations Immunization Administration Dates Next Due Influenza, Unspecified 08/31/2015 Family History Medical History Relation Name Comments Arrhythmia Brother COPD Brother Cancer Brother Colon cancer Brother bypass graft Brother Cerebral aneurysm Father Cancer Mother Stroke Sister Relation Name Status Comments Brother Father Mother Sister Social History Tobacco Use Types Packs/Day Years Used Date Smoking Tobacco: Never Smokeless Tobacco: Never Alcohol Use Standard Drinks/Week Comments Not Currently 0 (1 standard drink = 0.6 oz pur e alcohol) Comments Unknown Sex and Gender Information Value Date Recorded Sex Assigned at Not on file Legal Sex Female 4:38 PM EST Gender Identity Not on file Sexual Orientation Not on file Last Filed Vital Signs Vital Sign Reading Time Taken Comments Blood Pressure 116/68 10/11/2024 1:32 PM EST Pulse 76 10/11/2024 1:32 PM EST Temperature - - Respiratory Rate - - Oxygen Saturation - - Inhaled Oxygen Concentration - - Weight 55.5 kg (122 lb 6.4 oz) 10/11/2024 1:32 P M EST Height 154.9 cm (5' 1 ) 10/11/2024 1:32 PM EST Body Mass Index 23.13 10/11/2024 1:32 PM EST Plan of Treatment Upcoming Encounters Date Type Department Care Team (Late st Contact Info) Description 10/11/2025 10:30 AM EST Office Visit [facility] [address] [address] [place] [address] Jay Jay Mariscal MD [address] [facility] [address] [place] [address] Health Maintenance Due Date Last Done Comments CT Colonography 1950 Colonoscopy 1950 Colorectal Cancer Screening 1950 FIT-DNA (Cologuard) 1950 FIT 1950 Lipid Panel 1950 Medicare Annual Wellness Visit (AWV) 1950 Sigmoidoscopy 1950 TSH Level 1950 MMR Vaccines (1 of 1 - Standard series) 1951 Hepatitis C Screening 1968 Zoster Vaccines (1 of 2) 2000 Bone Density Scan 2015 DTaP/Tdap/Td Vaccines (2 - Td or Tdap) 05/22/2020 05/22/2010 RSV High Risk: (Elderly (60+) or Population) (1 - 1-dose 75+ series) 2025 COVID-19 Vaccine (1 - season) 2025 Influenza Vaccine (#1) 2025 08/31/2015, 2012 Pneumococcal Vaccine Completed 01/31/2020, 09/25/2019, 09/20/2019, Additional history exists HIB Vaccines Aged Out No longer eligi ble based on patient's age to complete this topic HPV Vaccines Aged Out No longer eligi ble based on patient's age to complete this topic Hepatitis A Vaccines Aged Out No long er eligible based on patient's age to complete this topic Hepatitis B Vaccines Aged Out No long er eligible based on patient's age to complete this topic IPV Vaccines Aged Out No longer eligi ble based on patient's age to complete this topic Meningococcal Vaccine Aged Out No cari radha eligible based on patient's age to complete this topic Rotavirus Vaccines Aged Out No longer eligible based on patient's age to complete this topic Insurance [employer] Member Subscriber Plan / Payer (Ef fective 2022-Present) Name:Elio Rosen Member ID:[id number] Relation to Subscriber:Self Name:Elio Rosen Subscriber ID:[id number] Payer ID:[id number] (NAIC) Group ID:Not on file Type:Not on file Address[id number] [id number] [employer] Member Subscriber Plan / Payer (Ef fective 2022-Present) Name:Elio Rosen Member ID:[id number] Relation to Subscriber:Self Name:Elio Rosen Subscriber ID:[id number] Payer ID:[id number] (NAIC) Group ID:Not on file Type:Not on file Address: [facility] [address] [id number]
--- OUTSIDE RECORDS SUMMARY | 2025-08-18 19:36 | XMS_ITS | Encounter Summary ---
Author Organization [facility] Address [address] [place] [address] Care Team Providers Care Continuous Improvement Analyst Name Role Phone Vilma Mcallister NP Unavailable [phone] Reggie Martinez MD Primary Care Provider Encounter Details Date Type Department Care Team (Late Contact Info) Description 10/14/2024 Abstract [facility] [address] [place] [address] Ryley Marinelli DO [address] [facility] [address] Angus Torrez, [facility] Social History Tobacco Use Types Packs/Day Years [...] PM EDT Procedure Visit JODIE JAIN [address] [place] [address] Taniya Kebede PA [address] [place] [address] documented as of this encounter Visit Diagnoses Not on filedocumented in this encounter Care Teams Continuous Improvement Analyst Relationship Specialty Start Date End Date Reggie Martinez MD [address] [place] [address] PCP - General Family Medicine 11/18/24 Vilma Mcallister NP [address] [place] [address] Referring Physician Family Medicine 11/13/23 documented as of this encounter
--- OUTSIDE RECORDS SUMMARY | 2025-08-18 19:36 | XMS_ITS | Clinical Summary ---
Author Organization [facility] Healthcare Address [address] [place] [address] Care Team Providers Care Returned Item Clerk Name Role Phone Vilma Mcallister NP Unavailable [phone] Reggie Martinez MD Primary Care Provider [phone] Allergies Active Allergy Reactions Criticality Noted Date Comments Atorvastatin 10/09/2023 Other Reaction(s): Unknown Benzonatate 08/25/2024 Other Reaction(s): Unknown Benzyl Benzoate 04/23/2023 Citalopram Medium 07/29/2019 Other Reaction(s): Muscle Pain, Unknown, Unknown felt horrible Diclofenac 04/23/2023 Other Reaction(s): Hypertension, Unknown Diclofenac Sodium Low 04/09/2021 Other Reaction(s): BP rises Other Reaction(s): BP rises, Intolerance raised blood pressure Doxycycline 04/09/2021 Other Reaction(s): Unknown, Unknown, Yeast infection Hydrochlorothiazide 07/29/2019 Other Reaction(s): Electrolyte disturbance, Unknown, Unknown Reaction Lisinopril Cough 07/29/2019 Other Reaction(s): Intolerance, Unknown, Unknown Reaction Octacosanol 08/25/2024 Other Reaction(s): Unknown Other 04/09/2021 Other Reaction(s): Unknown Propranolol Medium 07/29/2019 Other Reaction(s): hives, Unknown, Unknown Reaction Medications aspirin 81 MG EC tablet 1 (one) time each day at the same time Active metoprolol succinate XL (Toprol-XL) 50 MG 24 hr tablet Take 50 mg by mouth in the morning. Active Ames Thyroid 30 MG tablet 1 (one) time each day at the same time Active valsartan (Diovan) 160 MG tablet 1 (one) time each day at the same time Active Oxytocin-Sodium Chloride 15-0.9 UT/250ML-% solution Infuse into a venous catheter Active progesterone (Endometrin) 100 MG vaginal insert Insert 100 mg into the vagina in the morning and 100 mg before bedtime. Active sertraline (Zoloft) 50 MG tablet Take 50 mg by mouth Daily 06/09/2024 Active Elderberry 500 MG capsule 10/30/2023 Active albuterol HFA 90 mcg/act inhaler Active coenzyme Q-10 100 MG capsule Take 100 mg by mouth in the morning. Active nitroglycerin (Nitrostat) 0.[address] 0.4 mg under the tongue Active Active Problems Problem Noted Date Diagnosed Date Personal history of malignant neoplasm of breast 06/30/2025 Abnormal mammogram 06/30/2025 Keratoconjunctivitis sicca o f both eyes not specified as Sjogren's 11/10/2023 Age-related nuclear cataract of both eyes 2022 Blepharitis of upper and lower eyelids of both e yes 11/10/2023 Abnormal vaginal bleeding 06/04/2023 Allergic rhinitis 06/04/2023 Anxiety 06/04/2023 Arthralgia 06/04/2023 Arthritis of foot, left 06/04/2023 Arthritis of foot, right 06/04/2023 Vitamin D deficiency 06/04/2023 Vertigo 06/04/2023 Verruca plantaris 06/04/2023 URI with cough and congestion 06/04/2023 Thickened endometrium 06/04/2023 Sore throat 06/04/2023 Sensorineural hearing loss (SNHL), bilateral 03/2023 Sensorineural hearing loss ( SNHL) of left ear with restricted hearing of right ear 06/04/2023 Postmenopausal bleeding 06/04/2023 Personal history of breast cancer 06/04/2023 Pain of breast 06/04/2023 Osteoporosis 06/04/2023 Occipital neuralgia 06/04/2023 Moderate episode of recurrent major depressive d isorder 06/04/2023 Mild CAD 06/04/2023 Hypothyroid 06/04/2023 Hypokalemia 06/04/2023 Hormone imbalance 06/04/2023 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 Hair loss 06/04/2023 Fibrocystic changes of right breast 06/04/2023 Fall 06/04/2023 DCIS (ductal carcinoma in situ) 06/04/2023 Chronic sinusitis 06/04/2023 Chronic GERD 06/04/2023 Breast lump in upper outer quadrant 06/04/2023 Breast cancer of upper-inner quadrant of right female breast 06/04/2023 BMI 24.0-24.9, adult 06/04/2023 Benign essential hypertension 06/04/2023 Atrophy of vagina 06/04/2023 B12 deficiency 06/04/2023 YOSELIN positive 04/09/2021 Secondary osteoarthritis of multiple sites 04/09 Postmenopausal osteoporosis of multiple sites Numbness and tingling of foot 04/09/2021 Numbness and tingling in both hands 04/09/2021 Dry mouth 04/09/2021 Dry eye syndrome of both eyes 04/09/2021 Cervicalgia 04/09/2021 Bilateral hand pain 04/09/2021 Elevated sed rate 04/09/2021 Encounters Date Type Department Care Team Description 08/18/2025 11:30 AM EDT Procedure Visit [facility] [address] [place] [address] Taniya Kebede PA Well woman exam with routine gynecological exam; Postmenopausal state; Complex ovarian cyst 08/18/2025 Bamboo flowsheet [facility] [address] [address] Taniya Kebede PA 07/21/2025 2:00 PM EDT Office Visit [facility] [address] [place] [address] DolGladys mathewsm R, DPM FACFAS Neoplasm of uncertain behavior of skin (Primary Dx); Plantar verruca; Pain in right foot; Pain in left foot 07/21/2025 [facility] [address] [place] [address] DolGladys mathewsm R, DPM FACFAS 06/30/2025 2:00 PM EDT [facility] [address] [facility] [address] [place] [id number] Guillermo Ro, DO Personal history of malignant neoplasm of breast (Primary Dx); Abnormal mammogram 06/30/2025 Travel 06/27/2025 Travel 06/27/2025 Orders Only [facility] [address] [place] [address] [address] [place] [id number] Guillermo Ro, DO 06/23/2025 Abstract [facility]P Guillermo Ro, DO 06/23/2025 External Result Encounter [facility] External Department Unsolicited Guillermo Ro, DO 06/15/2025 Results Follow-Up [facility] [address] [facility] [place] [address] Syeda Gay LPN Right diagnostic mammogram with tomosynthesis 06/15/2025 Telephone [facility] [address] [facility] [place] [address] Christine Quintero LPN 06/14/2025 External Result Encounter [facility] External Department Unsolicited Ryley Marinelli, DO 06/01/2025 Telephone [facility] [address] [facility] [place] [address] Ryley Marinelli, DO 05/27/2025 Refill [facility] [address] [facility] [place] [address] Jeri Diego MA 05/19/2025 Telephone [facility] [address] [place] [address] Juan Marshall, DPM FACFAS from Last 3 Months Family History Medical History Relation Name Comments Colon cancer Brother Brain Aneurysm Father Cancer Mother Breast cancer Sibling Cancer Sibling Diabetes Sibling Heart disease Sibling Hyperlipidemia Sibling Hypertension Sibling Stroke Sibling Relation Name Status Comments Brother 6 brothers Father Mother Sibling Sister 2 sisters Social History Tobacco Use Types Packs/Day Years Used Date Smoking Tobacco: Never Tobacco Cessation:Counseling Given: Yes Alcohol Use Standard Drinks/Week Comments Yes 0 [...] Pressure 142/72 08/18/2025 11:51 AM EDT Pulse 72 11/18/2024 5:10 PM EST Temperature - - Respiratory Rate - - Oxygen Saturation - - Inhaled Oxygen Concentration - - Weight 54.8 kg (120 lb 12 oz) 08/18/2025 11:51 A M EDT Height 154.9 cm (5' 1 ) 07/21/2025 2:10 PM EDT Body Mass Index 22.82 07/21/2025 2:10 PM EDT Plan of Treatment Upcoming Encounters Date Type Department Care Team (Late st Contact Info) Description 08/21/2026 1:00 PM EDT Procedure Visit [facility] [address] [place] [address] Taniya Kebede PA [address] [place] [address] Procedures Procedure Name Priority Date/Time Associated Diagnosis Comments GENERAL PATHOLOGY Routine 06/24/2025 8:5 7 AM EDT US BREAST BIOPSY, 1ST LESION RIGHT 06/23/2025 1:19 PM EDT BI MAMMOGRAM DIAGNOSTIC TOMOSYNTHESIS RIGHT 06/14/2025 4:15 PM EDT from Last 3 Months Results * GENERAL PATHOLOGY (06/24/2025 8:57 AM EDT) us Guillermo Ro DO [facility] Final Res ult * US BREAST BIOPSY, 1ST LESION RIGHT (06/23/2025 1:19 PM EDT) Anatomical Region Laterality Modality Radiographic Sunitha ging 06/23/2025 1:19 PM EDT Impressions 06/23/2025 1:57 PM EDT STATUS POST ULTRASOUND GUIDED VACUUM-ASSISTED CORE BIOPSIES OF THE RIGHT BREAST. RESULT CODE: NL Impression dictated by: Adriana Navarrete Jr.OJuanita 06/23/2025 1:55 PM Dictation Location: [facility] Tech: Mansi Loredo; Kerry Villanueva Transcribed By: WHITNEY 06/23/25 1355 Dictated By: Edgar Arellano Jr, DO 06/23/25 1319 Signed By: <Electronically signed by Edgar Arellano Jr, DO in OV> 06/23/25 1355 Narrative 06/23/2025 1:57 PM EDT [facility] [address] [place] [address] Ultrasound Report Signed with Addenda Patient: Elio Rosen MR#: [id number] 050 : 1950 Acct:[id number] Age/Sex: 75 / F ADM Date: 06/23/25 Loc: [facility] Room: Type: [facility] Attending Dr: Guillermo Ro DO Ordering Provider: Guillermo Ro DO Date of Service: 06/23/25 US/US biopsy RT 1st lesion guid: N63.11 ([id number]) MM/MM post biopsy RT w/CAD: N63.11 Copies to: Guillermo Ro DO ADDENDUM 1 Addendum for pathology correlation. Ultrasound guided biopsy right breast mass 10:00 position 6 cm from the nipple: Benign breast tissue and fibroadipose tissue. No evidence of malignancy. Findings are benign and discordant with imaging. Surgical excision should be contemplated. If no intervention is performed, diagnostic mammography and ultrasound of the right breast in 6 months is recommended. Impression dictated by: Adriana Navarrete Jr.OJuanita 06/28/2025 2:43 PM Dictation Location: [place] [address] Addendum Dictated By: Edgar Arellano Jr, DO Addendum Signed By: <Electronically signed by Edgar Arellano Jr, DO in OV> 06/28/251442 Addendum Cosigned By: DD/ TD/TT: 06/28/25 ULTRASOUND GUIDED VACUUM-ASSISTED HOLOGIC ATEC SYSTEM CORE BIOPSIES OF THE RIGHT BREAST: CLINICAL DATA: Mass right breast PROCEDURE: The risks, benefits and alternatives to an ultrasound guided vacuum-assisted Hologic ATEC system core biopsy procedure were discussed with the patient and written informed consent was obtained. Ultrasonographic survey of the 10:00 position of the right breast was performed by pet technologist . Additional scanning of the right axilla demonstrates no suspicious lymph nodes. The patient's overlying skin was anesthetized with 1% lidocaine. The deeper soft tissues up to and around the mass were anesthetized with lidocaine mixed with epinephrine. Following this, multiple core biopsies of the right breast mass were performed using a 12-gauge Placed vacuum-assisted core biopsy needle under ultrasound guidance. Multiple core biopsy specimens were obtained. A metallic SS buckle post biopsy marker was then placed. Post procedure mammograms were performed. The patient tolerated the procedure well without immediate postprocedural complication. POSTPROCEDURE MAMMOGRAMS: Craniocaudal and true lateral views of the right breast were performed using low dose digital technique. The postbiopsy marker is seen at the biopsy site without evidence of migration. US/US biopsy RT 1st lesion guid Procedure Note Edgar Arellano Jr., DO - 06/28/2025 [place] [address] Ultrasound Report Signed with Addenda Patient: Elio Rosen MMR#: [id number] 050 : 1950Acct:[id number] Age/Sex: 75 / FADM Date: 06/23/25 Loc: [facility] Room:Type: [facility] Attending Dr: Guillermo Ro DO Ordering Provider: Guillermo Ro DO Date of Service: 06/23/25 US/US biopsy RT 1st lesion guid: N63.11 ([id number]) MM/MM post biopsy RT w/CAD: N63.11 Copies to: Guillermo Ro DO ADDENDUM 1 Addendum for pathology correlation. Ultrasound guided biopsy right breast mass 10:00 position 6 cm from thenipple: Benign breast tissue and fibroadipose tissue. No evidence of malignancy. Findings are benign and discordant with imaging. Surgical excision shouldbe contemplated. If no intervention is performed, diagnostic mammography and ultrasound of theright breast in 6 months is recommended. Impression dictated by: Edgar Arellano Jr., D.O. 06/28/2025 2:43 PM Dictation Location: [facility]- Addendum Dictated By: Edgar Arellano Jr, DO Addendum Signed By: <Electronically signed by Jr Collins DO in OV> 06/28/251442 Addendum Cosigned By: DD/ TD/TT: 06/28/25 ULTRASOUND GUIDED VACUUM-ASSISTED HOLOGIC ATEC SYSTEM CORE BIOPSIES OF THERIGHT BREAST: CLINICAL DATA: Mass right breast PROCEDURE: The risks, benefits and alternatives to an ultrasound guidedvacuum-assisted Hologic ATEC system core biopsy procedure were discussed with the patient and writteninformed consent was obtained. Ultrasonographic survey of the 10:00 position of the right breast wasperformed by pet technologist . Additional scanning of the right axilla demonstrates nosuspicious lymph nodes. The patient's overlying skin was anesthetized with 1% lidocaine. Thedeeper soft tissues up to and around the mass were anesthetized with lidocaine mixed with epinephrine.Following this, multiple core biopsies of the right breast mass were performed using a 12-gaugeSuros vacuum-assisted core biopsy needle under ultrasound guidance. Multiple core biopsy specimenswere obtained. A metallic SS buckle post biopsy marker was then placed. Post procedure mammogramswere performed. The patient tolerated the procedure well without immediate postproceduralcomplication. POSTPROCEDURE MAMMOGRAMS: Craniocaudal and true lateral views of the rightbreast were performed using low dose digital technique. The postbiopsy marker is seen at the biopsy site without evidence ofmigration. US/US biopsy RT 1st lesion guid IMPRESSION: STATUS POST ULTRASOUND GUIDED VACUUM-ASSISTED CORE BIOPSIES OF THE RIGHTBREAST. RESULT CODE: NL Impression dictated by: Edgar Arellano Jr., D.O. 06/23/2025 1:55 PM Dictation Location: [facility] Tech: Mansi LoredoLou Payne Kay Transcribed By: WHITNEY 06/23/25 1355 Dictated By: Edgar Arellano Jr, DO 06/23/25 1319 Signed By: <Electronically signed by Edgar Arellano Jr, DO inOV> 06/23/25 1355 Guillermo Ro DO IMG XR PROCEDURES Edited Result - Final * Right diagnostic mammogram with tomosynthesis (06/14/2025 4:15 PM EDT) Anatomical Region Laterality Modality Breast Right Mammography 06/14/2025 4:15 PM EDT Impressions 06/14/2025 4:25 PM EDT Redemonstration of lobulated taller than wide spiculated hypoechoic shadowing mass of the right breast. Concern for malignancy. Ultrasound-guided biopsy of the lesion recommended. Findings discussed with patient. RESULT CODE: 4 Suspicious Abnormality - Biopsy Considered DENSITY CODE: 2 (approximately 25-50% glandular) There are scattered areas of fibroglandular density. FOLLOW UP: BIO THE FALSE-NEGATIVE RATE OF MAMMOGRAPHY IS APPROXIMATELY 10%. IMAGING OF A PALPABLE ABNORMALITY MUST BE BASED ON CLINICAL GROUNDS. PATIENT WAS ENTERED INTO A REMINDER SYSTEM WITH A TARGET DUE DATE FOR THE NEXT MAMMOGRAM. Impression dictated by: Jerardo Munoz M.D. 06/14/2025 4:23 PM Dictation Location: [facility] Tech: Meme Wilson Transcribed By: WHITNEY 06/14/25 1623 Dictated By: Jerardo Munoz DO 06/14/25 1615 Signed By: <Electronically signed by Jerardo Munoz DO in OV> 06/14/25 1623 Narrative 06/14/2025 4:25 PM [place] [address] Ultrasound Report Signed Patient: Elio Rosen MR#: [id number] 050 : 1950 Acct:[id number] Age/Sex: 75 / F ADM Date: 06/14/25 Loc: [place] Room: Type: [facility] Attending Dr: Ryley Marinelli DO Ordering Provider: Ryley Marinelli Date of Service: 06/14/25 MM/MM diagnostic mammo RT w/CAD: R92.8 ([id number]) US/US breast RT limited: R92.8 Copies to: Ryley Marinelli RIGHT Diagnostic Full Field digital mammogram with 3-D imaging. Full field digital CC and MLO imaging performed. CAD utilized. COMPARISON: 11/25/2024 HISTORY: Annual screening BREAST COMPOSITION: Scattered fibroglandular densities of the breast parenchyma identified BREAST CALCIFICATIONS: Benign calcifications present. VASCULAR CALCIFICATIONS: None ARCHITECTURAL DISTORTION: None BREAST NODULE: A lobular spiculated nodule of the right breast redemonstrated. Adjacent biopsy clip redemonstrated. AXILLARY LYMPH NODES: Normal POSTSURGICAL CHANGES: Right lumpectomy changes with axillary lymph node clips redemonstrated. Targeted right breast ultrasound performed. Comparison 07/12/2024 there is identification of a lobular taller than wide hypoechoic shadowing lesion measuring 4 x 6 x 6 mm. The lesion is at the 10:00 position 6 cm from the nipple. Adjacent clip confirmed with mammogram. Structure anterior to to the area is rounded measuring 3 x 3 x 8 mm. This is unchanged. US/US breast RT limited Procedure Note Radiology, Radiologist, MD - 06/14/2025 [facility] [address] [place] [address] Ultrasound Report Signed Patient: Elio Rosen MMR#: [id number] 050 : 1950Acct:[id number] Age/Sex: 75 / FADM Date: 06/14/25 Loc: [place] Room:Type: [facility] Attending Dr: Ryley Marinelli DO Ordering Provider: Ryley Marinelli Date of Service: 06/14/25 MM/MM diagnostic mammo RT w/CAD: R92.8 ([id number]) US/US breast RT limited: R92.8 Copies to: Ryley Marinelli RIGHT Diagnostic Full Field digital mammogram with 3-D imaging. Full field digital CC and MLO imaging performed. CAD utilized. COMPARISON: 11/25/2024 HISTORY: Annual screening BREAST COMPOSITION: Scattered fibroglandular densities of the breastparenchyma identified BREAST CALCIFICATIONS: Benign calcifications present. VASCULAR CALCIFICATIONS: None ARCHITECTURAL DISTORTION: None BREAST NODULE: A lobular spiculated nodule of the right breastredemonstrated. Adjacent biopsy clip redemonstrated. AXILLARY LYMPH NODES: Normal POSTSURGICAL CHANGES: Right lumpectomy changes with axillary lymph nodeclips redemonstrated. Targeted right breast ultrasound performed. Comparison 07/12/2024 there isidentification of a lobular taller than wide hypoechoic shadowing lesion measuring 4 x 6 x 6mm. The lesion is at the 10:00 position 6 cm from the nipple. Adjacent clip confirmed withmammogram. Structure anterior to to the area is rounded measuring 3 x 3 x 8 mm. This is unchanged. US/US breast RT limited IMPRESSION: Redemonstration of lobulated taller than wide spiculated hypoechoicshadowing mass of the right breast. Concern for malignancy. Ultrasound-guided biopsy of thelesion recommended. Findings discussed with patient. RESULT CODE: 4 Suspicious Abnormality - Biopsy Considered DENSITY CODE: 2 (approximately 25-50% glandular) There are scattered areasof fibroglandular density. FOLLOW UP: BIO THE FALSE-NEGATIVE RATE OF MAMMOGRAPHY IS APPROXIMATELY 10%. IMAGING OF A PALPABLE ABNORMALITY MUST BE BASED ON CLINICAL GROUNDS. PATIENT WAS ENTERED INTO A REMINDER SYSTEM WITH A TARGET DUE DATE FOR THENEXT MAMMOGRAM. Impression dictated by: Jerardo Munoz M.D. 06/14/2025 4:23 PM Dictation Location: [facility] Tech: Meme CardozaLou Carmen Katie Transcribed By: WHITNEY 06/14/25 1623 Dictated By: Jerardo Munoz DO 06/14/25 1615 Signed By: <Electronically signed by Jerardo Munoz DO in OV> 06/14/25 1623 Ryley Marinelli DO IMG BI PROCEDURES Final Result from Last 3 Months Insurance [employer] Member Subscriber Plan / Payer (Ef fective 2022-Present) Name:Elio Rosen Member ID:[id number] Relation to Subscriber:Self Name:Elio Rosen Subscriber ID:[id number] Payer ID:Not on file Group ID:[id number] Type:Not on file Address: [facility] [id number] [place] [address] Care Teams Returned Item Clerk Relationship Specialty Start Date End Date Reggie Martinez MD [address] [place] [address] PCP - General Family Medicine 11/18/24 Vilma Mcallister NP [address] [place] [address] Referring Physician Family Medicine 11/13/23
--- OUTSIDE RECORDS SUMMARY | 2025-08-18 19:36 | XMS_ITS | Encounter Summary ---
Author Organization [facility] Address [address] [place] [address] Care Team Providers Care Advice Line Rn Name Role Phone Vilma Mcallister NP Unavailable [phone] Reggie Martinez MD Primary Care Provider [phone] Encounter Details Date Type Department Care Team (Late Contact Info) Description 12/10/2024 Abstract [facility] [address] [address] Ryley Marinelli DO [address] Angus Torrez, [facility] Social History Tobacco Use Types Packs/Day Years [...] PM EDT Procedure Visit [facility] [address] [address] Taniya Kebede PA [address] [place] [address] documented as of this encounter Visit Diagnoses Not on filedocumented in this encounter Care Teams Advice Line Rn Relationship Specialty Start Date End Date Reggie Martinez MD [address] [place] [address] PCP - General Family Medicine 11/18/24 Vilma Mcallister NP [address] [place] [address] Referring Physician Family Medicine 11/13/23 documented as of this encounter
--- OUTSIDE RECORDS SUMMARY | 2025-08-18 19:36 | XMS_ITS | Encounter Summary ---
Author Organization [facility] Address [address] [place] [address] Care Team Providers Care Ware Server Name Role Phone Vilma Mcallister NP Unavailable [phone] Reggie Martinez MD Primary Care Provider Encounter Details Date Type Department Care Team (Late Contact Info) Description 05/19/2024 Abstract [facility] [address] [place] [address] Ryley Marinelli DO [address] Angus Torrez, [facility] Social History Tobacco Use Types Packs/Day Years [...] PM EDT Procedure Visit [facility] [address] [place] [address] Taniya Kebede PA [address] [place] [address] documented as of this encounter Visit Diagnoses Not on filedocumented in this encounter Care Teams Ware Server Relationship Specialty Start Date End Date Reggie Martinez MD [address] [place] [address] PCP - General Family Medicine 11/18/24 Vilma Mcallister NP [address] [place] [address] Referring Physician Family Medicine 11/13/23 documented as of this encounter
--- OUTSIDE RECORDS SUMMARY | 2025-08-18 19:36 | XMS_ITS | Encounter Summary ---
Author Organization [facility] Address [address] [place] [address] Care Team Providers Care Location Worker Name Role Phone Vilma Mcallister NP Unavailable [phone] Reggie Martinez MD Primary Care Provider [phone] Encounter Details Date Type Department Care Team (Late Contact Info) Description 11/05/2024 Abstract [facility] [address] [facility] [address] Ryley Marinelli DO [address] [facility] [address] [facility] [address] Angus Torrez, [facility] Social History Tobacco Use Types Packs/Day [...] PM EDT Procedure Visit [facility] [address] [facility] [address] Taniya Kebede PA [address] [facility] [address] [place] [address] documented as of this encounter Visit Diagnoses Not on filedocumented in this encounter Care Teams Location Worker Relationship Specialty Start Date End Date Reggie Martinez MD [address] [place] [address] PCP - General Family Medicine 11/18/24 Vilma Mcallister NP [address] [place] [address] Referring Physician Family Medicine 11/13/23 documented as of this encounter
--- OUTSIDE RECORDS SUMMARY | 2025-08-18 19:36 | XMS_ITS | Encounter Summary ---
Author Organization [facility] Address [address] [place] [address] Care Team Providers Care Automobile Mechanic Helper Name Role Phone Vilma Mcallister NP Unavailable [phone] Reggie Martinez MD Primary Care Provider [phone] Encounter Details Date Type Department Care Team (Late Contact Info) Description 08/18/2025 Bamboo flowsheet JODIE JAIN [address] [place] [address] Taniya Kebede PA [address] [facility] [address] [place], [place] [address] Social History Tobacco Use Types Packs/Day Years [...] PM EDT Procedure Visit JODIE JAIN [address] [facility] [place] [address] Taniya Kebede PA [address] [facility] [address] [place], [facility] documented as of this encounter Visit Diagnoses Not on filedocumented in this encounter Care Teams Automobile Mechanic Helper Relationship Specialty Start Date End Date Reggie Martinez MD [address] [place] [address] PCP - General Family Medicine 11/18/24 Vilma Mcallister NP [address] [place] [address] Referring Physician Family Medicine 11/13/23 documented as of this encounter
--- OUTSIDE RECORDS SUMMARY | 2025-08-18 19:36 | XMS_ITS | Encounter Summary ---
Author Organization [facility] Address [address] [place] [address] Care Team Providers Care Casting Sorter Name Role Phone Vilma Mcallister NP Unavailable [phone] Reggie Martinez MD Primary Care Provider [phone] Encounter Details Date Type Department Care Team (Late st Contact Info) Description 06/23/2025 External Result Encounter [facility] External Department Unsolicited Guillermo Ro H, DO [address] [facility] [address] [place] [address] Social History Tobacco Use Types Packs/Day Years [...] 1:00 PM EDT Procedure Visit [facility] Lore JAIN [address] [facility] [phone] Taniya Kebede PA [address] [place] [address] documented as of this encounter Procedures Procedure Name Priority Date/Time Associated Diagnosis Comments US BREAST BIOPSY, 1ST LESION RIGHT 06/23/2025 1:19 PM EDT documented in this encounter Results * US BREAST BIOPSY, 1ST LESION RIGHT (06/23/2025 1:19 PM EDT) Anatomical Region Laterality Modality Radiographic Sunitha ging 06/23/2025 1:1 9 PM EDT Impressions 06/23/2025 1:57 PM EDT STATUS POST ULTRASOUND GUIDED VACUUM-ASSISTED CORE BIOPSIES OF THE RIGHT BREAST. RESULT CODE: NL Impression dictated by: Edgar Arellano Jr., D.O. 06/23/2025 1:55 PM Dictation Location: [facility] Tech: Mansi Loredo; Kerry Villanueva Transcribed By: WHITNEY 06/23/25 1355 Dictated By: Edgar Arellano Jr, DO 06/23/25 1319 Signed By: <Electronically signed by Edgar Arellano Jr, DO in OV> 06/23/25 1355 Narrative 06/23/2025 1:57 PM EDT [facility] [place] [address] Ultrasound Report Signed with Addenda Patient: Elio Rosen MR#: [id number] 050 : 1950 Acct:[id number] Age/Sex: 75 / F ADM Date: 06/23/25 Loc: [facility] Room: Type: [facility] Attending Dr: Guillermo Ro DO Ordering Provider: Guillermo Ro DO Date of Service: 06/23/25 US/US biopsy RT 1st lesion guid: N63.11 ([id number]) MM/MM post biopsy RT w/CAD: N63.11 Copies [...] recommended. Impression dictated by: Edgar Arellano Jr., D.OJuanita 06/28/2025 2:43 PM Dictation Location: [facility] Addendum Dictated By: Edgar Arellano Jr, DO Addendum Signed By: <Electronically signed by Edgar Arellano Jr, DO in OV> 06/28/25 144 Addendum Cosigned By: DD/ TD/TT: 06/28/25 ULTRASOUND [...] of the right breast was performed by electroencephalogram technologist . Additional scanning of the right axilla demonstrates no suspicious lymph nodes. The patient's overlying skin was anesthetized with 1% lidocaine. The deeper soft tissues up to and around the mass were anesthetized with lidocaine mixed with epinephrine. Following this, multiple core biopsies of the right breast mass were performed using a 12-gauge [employer] vacuum-assisted core biopsy needle under ultrasound guidance. [...] Note Edgar Arellano Jr., DO - 06/28/2025 [facility] [place] [address] Ultrasound Report Signed with Addenda Patient: Elio Rosen [facility]#: [id number] 050 : 1950Acct:[id number] Age/Sex: 75 / FADM Date: 06/23/25 Loc: [facility] Room:Type: [facility] Attending Dr: Guillermo Ro DO Ordering Provider: Guillermo Ro DO Date of Service: 06/23/25 US/US biopsy RT 1st lesion guid: N63.11 ([id number]) MM/MM post biopsy RT w/CAD: N63.11 Copies [...] recommended. Impression dictated by: Edgar Arellano Jr., D.OJuanita 06/28/2025 2:43 PM Dictation Location: [place] [address] Addendum Dictated By: Edgar Arellano Jr, DO Addendum Signed By: <Electronically signed by Jr Collins DO in OV> 06/28/25 144 Addendum Cosigned By: DD/ TD/TT: 06/28/25 ULTRASOUND GUIDED VACUUM-ASSISTED HOLOGIC ATEC SYSTEM CORE BIOPSIES OF THERIGHT BREAST: CLINICAL DATA: Mass right breast PROCEDURE: The risks, benefits and alternatives to an ultrasound guidedvacuum-assisted Hologic ATEC system core biopsy procedure were discussed with the patient and writteninformed consent was obtained. Ultrasonographic survey of the 10:00 position of the right breast wasperformed by electroencephalogram technologist . Additional scanning of the right [...] Jr., D.O. 06/23/2025 1:55 PM Dictation Location: [facility] Tech: Mansi Loredo; Kerry Villanueva Transcribed By: PWS 06/23/25 1355 Dictated By: Edgar Arellano Jr, DO 06/23/25 1319 Signed By: <Electronically signed by Edgar Arellano Jr, DO inOV> 06/23/25 1355 us Guillermo Ro DO IMG XR PROCEDURES Edited Result - Final documented in this encounter Visit Diagnoses Not on filedocumented in this encounter Care Teams Casting Sorter Relationship Specialty Start Date End Date Reggie Martinez MD [address] [place] [address] PCP - General Family Medicine 11/18/24 Vilma Mcallister NP [address] [place] [address] Referring Physician Family Medicine 11/13/23 documented as of this encounter
--- OUTSIDE RECORDS SUMMARY | 2025-08-18 19:36 | XMS_ITS | Encounter Summary ---
Author Organization [facility] Address [address] [place] [address] Care Team Providers Care Recruiter Name Role Phone Vilma Mcallister NP Unavailable [phone] Reggie Martinez MD Primary Care Provider [phone] Encounter Details Date Type Department Care Team (Late Contact Info) Description 06/27/2025 Orders Only [facility] [address] [facility] [address] [place] [phone] Guillermo Ro, DO 7[address] [facility] 150 [place] [address] Social History Tobacco Use Types Packs/Day Years [...] Description 08/21/2026 1:00 PM EDT Procedure Visit NOMKatherine JAIN [address] [facility] [place] [phone] Taniya Kebede PA [address] [facility] [address] [place], [place] [address] documented as of this encounter Procedures Procedure Name Priority Date/Time Associated Diagnosis Comments GENERAL PATHOLOGY Routine 06/24/2025 8:57 AM EDT documented in this encounter Results * GENERAL PATHOLOGY (06/24/2025 8:57 AM EDT) Guillermo Ro DO [facility] Final Res ult documented in this encounter Visit Diagnoses Not on filedocumented in this encounter Care Teams Recruiter Relationship Specialty Start Date End Date Reggie Martinez MD [address] [place] [address] PCP - General Family Medicine 11/18/24 Vilma Mcallister NP [address] [place] [address] Referring Physician Family Medicine 11/13/23 documented as of this encounter
--- OUTSIDE RECORDS SUMMARY | 2025-08-18 19:36 | XMS_ITS | Encounter Summary ---
Author Organization [facility] Address [address] [place] [address] Care Team Providers Care Enrollment Processor Name Role Phone Vilma Mcallister NP Unavailable [phone] Reggie Martinez MD Primary Care Provider [phone] Encounter Details Date Type Department Care Team (Late st Contact Info) Description 09/12/2024 Clinisync Result Encounter [facility]S External Department Unsolicited Azam Marinelli DO [address] [facility] [address] Angus Torrez, [facility]11 Social History Tobacco Use Types Packs/Day Years [...] PM EDT Procedure Visit JODIE JAIN [address] [facility] [place] [address] Taniya Kebede PA [address] [facility] [place] [address] documented as of this encounter Procedures Procedure Name Priority Date/Time Associated Diagnosis Comments XR CHEST 2V 09/12/2024 6:19 AM EDT documented in this encounter Results * XR CHEST 2V (09/12/2024 6:19 AM EDT) Anatomical Region Laterality Modality Other 09/12/2024 6:19 AM EDT Narrative 09/12/2024 6:22 [place] [address] XRay Report Signed Patient: KERMIT ROSEN MR#: [id number] : 1950 Acct:[id number] Age/Sex: 74 / F ADM Date: 09/10/24 Loc: [facility] Attending Dr: Azam Marinelli D.O. Ordering Physician: Azam Marinelli D.O. Date of Service: 09/10/24 Procedure(s): XR chest 2V Accession Number(s): [id number] cc: Azam Marinelli D.O.; Physician,Non-Staff M.DJuanita [place] [address] Patient Name: KERMIT ROSEN MRN: [id number] date: 1950 Sex: F Assigned Patient Location: [facility] Current Patient Location: Accession/Order Number: [id number] Exam Date: 09/10/2024 11:38 Report Date: 09/12/2024 06:19 At the request of: AZAM MARINELLI Procedure: XR chest 2V EXAMINATION: XR chest 2V HISTORY: Preop exam COMPARISON: XR chest 06/18/2023 FINDINGS: LUNGS: No significant pulmonary parenchymal abnormalities. VASCULATURE: No increased pulmonary vasculature. PLEURA: No pneumothorax, effusion, or pleural thickening. CARDIAC: No cardiomegaly or cardiac silhouette abnormality. MEDIASTINUM: No visible mass or adenopathy. BONES: Kyphotic curvature thoracic spine. OTHER: Negative. XR/XR chest 2V IMPRESSION: 1. No acute cardiopulmonary process. Stable chest. Electronically authenticated by: GUANAKITO VÁSQUEZ Date: 09/12/2024 06:19 Dictated By: Guanakito Vásquez M.D. Signed By: 09/12/24621 DD/ 8 TD/TT: J2Ee Engineer: Procedure Note Radiology, Radiologist, - 09/12/2024 [place] [address] XRay Report Signed Patient: KERMIT ROSEN MMR#: [id number] : 1950Acct:[id number] Age/Sex: 74 / FADM Date: 09/10/24 Loc: [facility] Attending Dr: Azam Marinelli D.O. Ordering Physician: Azam Marinelli D.O. Date of Service: 09/10/24 Procedure(s): XR chest 2V Accession Number(s): [id number] cc: Azam Marinelli D.O.; Physician,Non-Staff [place] [address] Patient Name: KERMIT ROSEN MRN: [id number] date: 1950 Sex: F Assigned Patient Location: [facility] Current Patient Location: Accession/Order Number: [id number] Exam Date: 09/10/2024 11:38 Report Date: 09/12/2024 06:19 At the request of: AZAM MARINELLI Procedure: XR chest 2V EXAMINATION: XR chest 2V HISTORY: Preop exam COMPARISON: XR chest 06/18/2023 FINDINGS: LUNGS: No significant pulmonary parenchymal abnormalities. VASCULATURE: No increased pulmonary vasculature. PLEURA: No pneumothorax, effusion, or pleural thickening. CARDIAC: No cardiomegaly or cardiac silhouette abnormality. MEDIASTINUM: No visible mass or adenopathy. BONES: Kyphotic curvature thoracic spine. OTHER: Negative. XR/XR chest 2V IMPRESSION: 1. No acute cardiopulmonary process. Stable chest. Electronically authenticated by: GUANAKITO VÁSQUEZ Date: 09/12/2024 06:19 Dictated By: Guanakito Vásquez M.D. Signed By:09/12/24621 DD/ 8 TD/TT: J2Ee Engineer: us Azam Marinelli DO [facility] Final Result documented in this encounter Visit Diagnoses Not on filedocumented in this encounter Care Teams Enrollment Processor Relationship Specialty Start Date End Date Reggie Martinez MD [address] [place] [address] PCP - General Family Medicine 11/18/24 Vilma Mcallister NP [address] [place] [address] Referring Physician Family Medicine 11/13/23 documented as of this encounter
--- OUTSIDE RECORDS SUMMARY | 2025-08-18 19:36 | XMS_ITS | Encounter Summary ---
Author Organization [facility] Address [address] [place] [address] Care Team Providers Care File System Installer Name Role Phone Vilma Mcallister NP Unavailable [phone] Reggie Martinez MD Primary Care Provider [phone] Encounter Details Date Type Department Care Team (Late Contact Info) Description 02/22/2025 Abstract NOMKatherine JAIN [address] [facility] [address] Ryley Marinelli DO [address] [facility] [address] Angus Torrez, [facility]11 Social History Tobacco Use Types Packs/Day [...] JAIN [address] [facility] [address] Taniya Kebede PA [address] [facility] [place] [address] documented as of this encounter Visit Diagnoses Not on filedocumented in this encounter Care Teams File System Installer Relationship Specialty Start Date End Date Reggie Martinez MD [address] [place] [address] PCP - General Family Medicine 11/18/24 Vilma Mcallister NP [address] [place] [address] Referring Physician Family Medicine 11/13/23 documented as of this encounter
--- OUTSIDE RECORDS SUMMARY | 2025-08-18 19:36 | XMS_ITS | Encounter Summary ---
Author Organization [facility] Address [address] [place] [address] Care Team Providers Care Dark Room Attendant Name Role Phone Vilma Mcallister NP Unavailable [phone] Reggie Martinez MD Primary Care Provider [phone] Encounter Details Date Type Department Care Team (Late Contact Info) Description 06/14/2025 External Result Encounter [facility] External Department Unsolicited Ryley Marinelli DO [address] [facility] [address] Angus Torrez, [facility]11 Social History Tobacco Use Types Packs/Day [...] EDT Procedure Visit NOMS Lore JAIN [address] [facility] [place] [address] Taniya Kebede PA [address] [facility] [place] [address] documented as of this encounter Procedures Procedure Name Priority Date/Time Associated Diagnosis Comments BI MAMMOGRAM DIAGNOSTIC TOMOSYNTHESIS RIGHT 06/14/2025 4:15 PM EDT documented in this encounter Results * Right diagnostic mammogram with tomosynthesis (06/14/2025 [...] Munoz M.D. 06/14/2025 4:23 PM Dictation Location: [facility] Tech: Meme CardozaLou Wilson Transcribed By: WHITNEY 06/14/25 1623 Dictated By: Jerardo Munoz DO 06/14/251614 Signed By: <Electronically signed by Jerardo Munoz DO in OV> 06/14/25 1623 Narrative 06/14/2025 4:25 PM EDT [facility] Main [place] [address] [place] [address] Ultrasound Report Signed Patient: Elio Rosen MR#: [id number] 050 : 1950 Acct:[id number] Age/Sex: 75 / F ADM Date: 06/14/25 Loc: [place] Room: Type: [facility] Attending Dr: Ryley Marinelli DO Ordering Provider: Ryley Marinelli Date of Service: 06/14/25 MM/MM diagnostic mammo RT w/CAD: R92.8 ([id number]) US/US breast RT limited: R92.8 Copies to: [...] Procedure Note Radiology, Radiologist, MD - 06/14/2025 [facility] Main [place] [address] [place] [address] Ultrasound Report Signed Patient: Elio Rosen MMR#: [id number] 050 : 1950Acct:[id number] Age/Sex: 75 / FADM Date: 06/14/25 Loc: [place] Room:Type: [facility] Attending Dr: Ryley Marinelli DO Ordering Provider: Ryley Marinelli Date of Service: 06/14/25 MM/MM diagnostic mammo RT w/CAD: R92.8 ([id number]) US/US breast RT limited: R92.8 Copies to: [...] Munoz M.D. 06/14/2025 4:23 PM Dictation Location: [facility] Tech: Meme CardozaLou Carmen Katie Transcribed By: PWS 06/14/25 1623 Dictated By: Jerardo Munoz DO 06/14/25 1615 Signed By: <Electronically signed by Jerardo Munoz DO in OV> 06/14/25 1623 us Ryley Isis DO IMG BI PROCEDURES Final Result documented in this encounter Visit Diagnoses Not on filedocumented in this encounter Care Teams Dark Room Attendant Relationship Specialty Start Date End Date Reggie Martinez MD [address] [place] [address] PCP - General Family Medicine 11/18/24 Vilma Mcallister NP [address] [place] [address] Referring Physician Family Medicine 11/13/23 documented as of this encounter
--- OUTSIDE RECORDS SUMMARY | 2025-08-18 19:36 | XMS_ITS | Encounter Summary ---
Author Organization [facility] Address [address] [place] [address] Care Team Providers Care Instructor Hairspring Name Role Phone Vilma Mcallister NP Unavailable [phone] Reggie Martinez MD Primary Care Provider [phone] Encounter Details Date Type Department Care Team (Late Contact Info) Description 05/25/2024 Orders Only JODIE JAIN [address] [place] [address] [place] [address] Patricia Ernandez LPN [address] [facility] [address] [facility]11 Social History Tobacco Use Types Packs/Day Years [...] PM EDT Procedure Visit NOMKatherine JAIN [address] [facility] [place] [address] Taniya Kebede PA [address] [facility] [address] documented as of this encounter Procedures Procedure Name Priority Date/Time Associated Diagnosis Comments PAP SMEAR Routine 05/18/2024 12:00 AM EDT documented in this encounter Results * Pap Smear (05/18/2024 12:00 AM EDT) Swab Cervical swab / Unknown us Isis Nurse [facility] B[facility] Ob LAB CYTOLOGY ORDERABLES Final Result EXTERNAL LAB documented in this encounter Visit Diagnoses Not on filedocumented in this encounter Care Teams Instructor Hairspring Relationship Specialty Start Date End Date Reggie Martinez MD [address] [facility] [place] [address] PCP - General Family Medicine 11/18/24 Vilma Mcallister NP [address] [place] [address] Referring Physician Family Medicine 11/13/23 documented as of this encounter
--- OUTSIDE RECORDS SUMMARY | 2025-08-18 19:36 | XMS_ITS | Encounter Summary ---
Author Organization [facility] Address [address] [place] [address] Care Team Providers Care Medical Dermatologist Name Role Phone Vilma Mcallister NP Unavailable [phone] Reggie Martinez MD Primary Care Provider [phone] Encounter Details Date Type Department Care Team (Late Contact Info) Description 10/15/2024 Abstract NOMKatherine JAIN [address] [facility] [place] [address] Ryley Marinelli DO [address] [facility] [address] Angus Torrez, [facility]11 Social History Tobacco Use Types Packs/Day Years [...] PM EDT Procedure Visit JODIE JAIN [address] [facility] [address] Taniya Kebede PA [address] [facility] [place] [address] documented as of this encounter Visit Diagnoses Not on filedocumented in this encounter Care Teams Medical Dermatologist Relationship Specialty Start Date End Date Reggie aMrtinez MD [address] [place] [address] PCP - General Family Medicine 11/18/24 Vilma Mcallister NP [address] [place] [address] Referring Physician Family Medicine 11/13/23 documented as of this encounter
--- OUTSIDE RECORDS SUMMARY | 2025-08-18 19:36 | XMS_ITS | Encounter Summary ---
Author Organization [facility] Address [address] [place] [address] Care Team Providers Care Riveter Portable Machine Name Role Phone Vilma Mcallister NP Unavailable [phone] Reggie Martinez MD Primary Care Provider [phone] Encounter Details Date Type Department Care Team (Latest Contact Info) Description 06/23/2025 Abstract [facility] EXT Guillermo Nazario, DO [address] [facility] 150 [place] [address] Social History Tobacco Use Types [...] EDT Procedure Visit NOMS Lore JAIN [address] [facility] [address] Taniya Kebede PA [address] [facility] [place] [address] documented as of this encounter Visit Diagnoses Not on filedocumented in this encounter Care Teams Riveter Portable Machine Relationship Specialty Start Date End Date Reggie Martinez MD [address] [place] [address] PCP - General Family Medicine 11/18/24 Vilma Mcallister NP [address] [place] [address] Referring Physician Family Medicine 11/13/23 documented as of this encounter
--- OUTSIDE RECORDS SUMMARY | 2025-08-18 19:36 | XMS_ITS | Encounter Summary ---
Author Organization [facility] Address [address] [place] [address] Care Team Providers Care Electrical Prospector Name Role Phone Vilma Mcallister NP Unavailable [phone] Reggie Martinez MD Primary Care Provider [phone] Encounter Details Date Type Department Care Team (Late Contact Info) Description 03/25/2024 Abstract NOMKatherine JAIN [address] [facility] [place] [address] Patricia Ernandez LPN [address] [facility] [address] [facility] Social History Tobacco Use Types Packs/Day Years Used Date Smoking Tobacco: Never Alcohol Use Standard Drinks/Week Comments Yes 0 (1 standard drink = 0.6 oz pure alcohol) Alcohol: 1 or 2 drinks, 2 to 4 times a month; Caffeine: 1-2 cups/day PHQ-2 Answer Date Recorded Patient Health Questionnaire-2 Score 0 06/10/2023 Comments Unknown Sex and Gender Information Value Date Recorded Sex Assigned at Not on file Legal Sex Female 8:11 PM EDT Gender Identity Not on file Sexual Orientation Not on file documented as of this encounter Plan of Treatment Upcoming Encounters Date Type Department Care Team (Late Contact Info) Description 08/21/2026 1:00 PM EDT Procedure Visit JODIE JAIN [address] [facility] [place] [address] Taniya Kebede PA [address] [facility] [place] [address] documented as of this encounter Visit Diagnoses Not on filedocumented in this encounter Care Teams Electrical Prospector Relationship Specialty Start Date End Date Reggie Martinez MD [address] [place] [address] PCP - General Family Medicine 11/18/24 Vilma Mcallister NP [address] [place] [address] Referring Physician Family Medicine 11/13/23 documented as of this encounter
--- OUTSIDE RECORDS SUMMARY | 2025-08-18 19:36 | XMS_ITS | Encounter Summary ---
Author Organization [facility] Address [address] [place] [address] Care Team Providers Care Chief Medical Director Name Role Phone Cristin Roblero CNP Primary Care Provider [phone] Source Comments In the event this information is protected by the Federal Confidentiality of Alcohol and Drug AbusePatient Records regulations: The Federal rules restrict any use of the information to criminally investigate or prosecute any alcohol or drug abuse patient.[facility] Encounter Details Date Type Department Care Team (Late st Contact Info) Description 04/13/2021 Patient Msg Rheumatology [address] [place] [address] Socorro Rooney MD [address] [place] [address] results Social History Tobacco Use Types Packs/Day Years Used Date Smoking Tobacco: Never Smokeless Tobacco: Never Area Deprivation Index Answer Date Placido rded National Score (1-100), lower number is lower ri sk Not on file 11/08/2020 State Score (1-10), lower number is lower risk N ot on file 11/08/2020 Data from: https://www.neighborhoodatlas.medicine.[facility].edu/. Last address used for calculation Not on file 11/08/2020 Comments No Sex and Gender Information Value Date Recorded Sex Assigned at Not on file Legal Sex Female 12:28 PM EDT Gender Identity Not on file Sexual Orientation Not on file COVID-19 Exposure Response Date Recorded In the last month, have you been in contact with someone who was confirmed or suspected to have Coronavirus / COVID-19? No / Unsure 04/09/2021 2:20 PM EDT documented as of this encounter Plan of Treatment Upcoming Encounters Date Type Department Care Team (Late st Contact Info) Description 10/31/2025 10:30 AM EST Appointment Gastroenterology [address] [place] [address] Janelle Presley MD [address] [place] [address] Colon polyps*Please call the office to Reschedule* documented as of this encounter Visit Diagnoses Not on filedocumented in this encounter Care Teams Chief Medical Director Relationship Specialty Start Date End Date Cristin Roblero CNP [address] [place] [address] PCP - General Family Medicine 11/20/20 documented as of this encounter
--- OUTSIDE RECORDS SUMMARY | 2025-08-18 19:36 | XMS_ITS | Encounter Summary ---
Author Organization [facility] Address [address] [place] [address] Care Team Providers Care Short Piece Handler Name Role Phone Vilma Mcallister NP Unavailable [phone] Reggie Martinez MD Primary Care Provider [phone] Encounter Details Date Type Department Care Team (Late st Contact Info) Description 10/29/2024 Clinisync Result Encounter [facility] External Department Unsolicited Azam Marinelli DO [address] [facility] [address] Angus Torrez, [facility]11 Social History Tobacco Use Types Packs/Day Years [...] PM EDT Procedure Visit JODIE JAIN [address] [facility] [place] [address] Taniya Kebede PA [address] [facility] [address] documented as of this encounter Procedures Procedure Name Priority Date/Time Associated Diagnosis Comments XR CHEST 2V 10/29/2024 3:19 PM EST documented in this encounter Results * XR CHEST 2V (10/29/2024 3:19 PM EST) Anatomical Region Laterality Modality Other 10/29/2024 3:19 PM EST Narrative 10/29/2024 3:22 [place] [address] XRay Report Signed Patient: KERMIT ROSEN MR#: [id number] : 1950 Acct:[id number] Age/Sex: 74 / F ADM Date: 10/29/24 Loc: [facility] Attending Dr: Azam Marinelli D.O. Ordering Physician: Azam Marinelli D.O. Date of Service: 10/29/24 Procedure(s): XR chest 2V Accession Number(s): [id number] cc: Azam Marinelli D.O.; Physician,Non-Staff M.DJuanita The [place] [address] Patient Name: KERMIT ROSEN MRN: [facility]:[id number] date: 1950 Sex: F Assigned Patient Location: [facility] Current Patient Location: [facility] Accession/Order Number: [id number] Exam Date: 10/29/2024 13:40 Report Date: 10/29/2024 15:19 At the request of: AZAM MARINELLI Procedure: XR chest 2V EXAM: XR chest 2V HISTORY: Preop exam COMPARISON: 09/10/2024 TECHNIQUE: Upright PA and lateral chest x-ray FINDINGS: The heart is not enlarged and the vasculature is not distended. No acute infiltrate, effusion or pneumothorax is identified. Focal eventration of the right hemidiaphragm is noted. Flattening of the hemidiaphragms suggest COPD. The osseous structures are grossly intact. XR/XR chest 2V IMPRESSION: No acute infiltrate or evidence of cardiac decompensation. The overall appearance of the chest is essentially unchanged. Electronically authenticated by: CORWIN GRIFFIN Date: 10/29/2024 15:19 Dictated By: Corwin Griffin M.D. Signed By: 10/29/241521 DD/ 18 TD/TT: Research Consultant: Procedure Note Radiology, Radiologist, - 10/29/2024 [place] [address] XRay Report Signed Patient: KERMIT ROSEN MMR#: [id number] : 1950Acct:[id number] Age/Sex: 74 / FADM Date: 10/29/24 Loc: [facility] Attending Dr: Azam Marinelli D.O. Ordering Physician: Azam Marinelli D.O. Date of Service: 10/29/24 Procedure(s): XR chest 2V Accession Number(s): [id number] cc: Azam Marinelli D.O.; Physician,Non-Staff Beck The [place] [address] Patient Name: KERMIT ROSEN MRN: [id number] date: 1950 Sex: F Assigned Patient Location: [facility] Current Patient Location: [facility] Accession/Order Number: [id number] Exam Date: 10/29/2024 13:40 Report Date: 10/29/2024 15:19 At the request of: AZAM MARINELLI Procedure: XR chest 2V EXAM: XR chest 2V HISTORY: Preop exam COMPARISON: 09/10/2024 TECHNIQUE: Upright PA and lateral chest x-ray FINDINGS: The heart is not enlarged and the vasculature is not distended.No acute infiltrate, effusion or pneumothorax is identified. Focaleventration of the right hemidiaphragm is noted. Flattening of the hemidiaphragms suggest COPD. The osseous structures are grossly intact. XR/XR chest 2V IMPRESSION: No acute infiltrate or evidence of cardiac decompensation. The overall appearance of the chest is essentially unchanged. Electronically authenticated by: CORWIN GRIFFIN Date: 10/29/2024 15:19 Dictated By: Corwin Griffin M.D. Signed By:10/29/241521 DD/ 18 TD/TT: Research Consultant: us Azam Isis DO [facility] Final Result documented in this encounter Visit Diagnoses Not on filedocumented in this encounter Care Teams Short Piece Handler Relationship Specialty Start Date End Date Reggie Martinez MD [address] [place] [address] PCP - General Family Medicine 11/18/24 Vilma Mcallister NP [address] [place] [address] Referring Physician Family Medicine 11/13/23 documented as of this encounter
--- OUTSIDE RECORDS SUMMARY | 2025-08-18 19:37 | XMS_ITS | Encounter Summary ---
Author Organization [facility] Address [address] [place] [address] Care Team Providers Care Dairy Products Maker Name Role Phone Vilma Mcallister NP Unavailable [phone] Reggie Martinez MD Primary Care Provider [phone] Encounter Details Date Type Department Care Team (Late st Contact Info) Description 07/14/2024 Clinisync Result Encounter [facility] External Department Unsolicited Taniya Frey PA [address] [facility] [address] [place], [place] [id number] Social History Tobacco Use Types Packs/Day Years [...] Encounter Note - Syeda Gay LPN - 07/14/2024 5:09 AM EDT Pt has Telehealth with Dr. Marinelli today documented in this encounter Plan of Treatment Upcoming Encounters Date Type Department Care Team (Late st Contact Info) Description 08/21/2026 1:00 PM EDT Procedure Visit [facility] Lore JAIN [address] [facility] [place] [address] Taniya Frey PA [address] [facility] [address] [place], [facility]11 documented as of this encounter Procedures Procedure Name Priority Date/Time Associated Diagnosis Comments US PELVIS W/ TRANSVAGINAL 07/14/2024 5:03 AM EDT documented in this encounter Results * US PELVIS W/ TRANSVAGINAL (07/14/2024 5:03 AM EDT) Anatomical Region Laterality Modality Other 07/14/2024 5:03 AM EDT Narrative 07/14/2024 5:06 AM EDT [address] [address] Ultrasound Report Signed Patient: KERMIT ROSEN MR#: [id number] : 1950 Acct:[id number] Age/Sex: 74 / F ADM Date: 07/12/24 Loc: US Attending Dr: Taniya Frey Ordering Physician: Taniya Frey Date of Service: 07/12/24 Procedure(s): US pelvis w/ transvaginal Accession Number(s): [id number] cc: Taniya Frey; Physician,Non-Staff M.Adriana [address] [address] Patient Name: KERMIT ROSEN MRN: [id number] date: 1950 Sex: F Assigned Patient Location: [place] Current Patient Location: Accession/Order Number: [id number] Exam Date: 07/12/2024 09:56 Report Date: 07/14/2024 05:03 At the request of: TANIYA FREY Procedure: US pelvis w/ transvaginal EXAMINATION: US pelvis w/ transvaginal HISTORY: Menorrhagia With Regular Cycle N92.0 COMPARISON: No relevant comparison available. TECHNIQUE: Transabdominal and/or transvaginal sonographic examination was performed as indicated by examination type. FINDINGS: UTERUS: Rounded heterogeneous masslike area with a few peripheral calcifications within the cervix, 1.0 x 1.0 x 1.0 cm. No appreciable internal blood flow on color Doppler so this could represent a complex nabothian cyst. Uterus size: 4.4 x 2.5 x 3.6 cm ENDOMETRIUM: Abnormally thickened and slightly heterogeneous. Endometrial thickness: 16 mm RIGHT OVARY: Not seen. No suspicious adnexal findings. LEFT OVARY: Not seen. No suspicious adnexal findings. . CUL-DE-SAC: Unremarkable. No significant free fluid. BLADDER: Unremarkable. OTHER: None. US/US pelvis w/ transvaginal IMPRESSION: 1. Abnormal endometrial thickening; endometrial hyperplasia versus neoplasm. 2. Within the cervix is a 1.0 cm mass versus complex cyst. Appearance favors a mass. Electronically authenticated by: GUANAKITO VÁSQUEZ Date: 07/14/2024 05:03 Dictated By: Guanakito Vásquez M.D. Signed By: 07/14/24 050 DD/ 050 TD/TT: Assembler Dc Field Yoke: Procedure Note Radiology, Radiologist, MD - 07/14/2024 [place] [address] Ultrasound Report Signed Patient: KERMIT ROSEN MMR#: [id number] : 1950Acct:[id number] Age/Sex: 74 / FADM Date: 07/12/24 Loc: US Attending Dr: Taniya Frey Ordering Physician: Taniya Frey Date of Service: 07/12/24 Procedure(s): US pelvis w/ transvaginal Accession Number(s): [id number] cc: Taniya Frey; Physician,Non-Staff MDana The [address] [address] Patient Name: KERMIT ROSEN MRN: [id number] date: 1950 Sex: F Assigned Patient Location: US Current Patient Location: Accession/Order Number: [id number] Exam Date: 07/12/2024 09:56 Report Date: 07/14/2024 05:03 At the request of: TANIYA FREY Procedure: US pelvis w/ transvaginal EXAMINATION: US pelvis w/ transvaginal HISTORY: Menorrhagia With Regular Cycle N92.0 COMPARISON: No relevant comparison available. TECHNIQUE: Transabdominal and/or transvaginal sonographic examination was performed as indicated by examination type. FINDINGS: UTERUS: Rounded heterogeneous masslike area with a few peripheral calcifications within the cervix, 1.0 x 1.0 x 1.0 cm. No appreciableinternal blood flow on color Doppler so this could represent a complex nabothiancyst. Uterus size: 4.4 x 2.5 x 3.6 cm ENDOMETRIUM: Abnormally thickened and slightly heterogeneous. Endometrial thickness: 16 mm RIGHT OVARY: Not seen. No suspicious adnexal findings. LEFT OVARY: Not seen. No suspicious adnexal findings. . CUL-DE-SAC: Unremarkable. No significant free fluid. BLADDER: Unremarkable. OTHER: None. US/US pelvis w/ transvaginal IMPRESSION: 1. Abnormal endometrial thickening; endometrial hyperplasia versusneoplasm. 2. Within the cervix is a 1.0 cm mass versus complex cyst. Appearancefavors a mass. Electronically authenticated by: GUANAKITO VÁSQUEZ Date: 07/14/2024 05:03 Dictated By: Guanakito Vásquez M.D. Signed By:07/14/24 0506 DD/ 050 TD/TT: Assembler Dc Field Yoke: us Taniya CORTEZ [facility] Final Result documented in this encounter Visit Diagnoses Not on filedocumented in this encounter Care Teams Dairy Products Maker Relationship Specialty Start Date End Date Reggie Martinez MD [address] [place] [address] PCP - General Family Medicine 11/18/24 Vilma Mcallister NP [address] [place] [address] Referring Physician Family Medicine 11/13/23 documented as of this encounter
--- OUTSIDE RECORDS SUMMARY | 2025-08-18 19:37 | XMS_ITS | Encounter Summary ---
Author Organization [facility] Address [address] [place] [address] Care Team Providers Care Golf Club Repairer Name Role Phone Vilma Mcallister NP Unavailable [phone] Reggie Martinez MD Primary Care Provider [phone] Encounter Details Date Type Department Care Team (Late st Contact Info) Description 09/10/2024 Clinisync Result Encounter [facility]S External Department Unsolicited Azam Marinelli DO [address] [facility] [address] Angus Torrez, [facility]11 Social History Tobacco Use Types Packs/Day [...] PM EDT Procedure Visit JODIE JAIN [address] [facility] [address] Taniya Kebede PA [address] [facility] [place] [address] documented as of this encounter Procedures Procedure Name Priority Date/Time Associated Diagnosis Comments ECG 12-LEAD 09/10/2024 11:27 AM EDT documented in this encounter Results * ECG 12-LEAD (09/10/2024 11:27 AM EDT) Anatomical Region Laterality Modality Other 09/10/2024 11:2 7 AM EDT Narrative 09/10/2024 6:34 [place] [address] Electrocardiograph Report Signed Patient: KERMIT ROSEN MR#: [id number] : 1950 Acct:[id number] Age/Sex: 74 / F ADM Date: 09/10/24 Loc: PST Attending Dr: Azam Marinelli D.O. Ordering Physician: Azam Marinelli D.O. Date of Service: 09/10/24 Procedure(s): ECG 12 lead Accession Number(s): [id number] cc: The [facility] Test Date: 2024-09-10 Pat Name: KERMIT ROSEN Department: Room: - Gender: Female Proof Machine Operator: : 1950 Requested By: AZAM MARINELLI Order Number: [id number] Reading MD: ANTOINE BUNCH Measurements Intervals [place] Rate: 59 P: 50 UT: 171 QRS: 30 QRSD: 90 T: 55 QT: 420 QTc: 417 Interpretive Statements SINUS BRADYCARDIA Compared to ECG 06/18/2023 13:58:14 No significant changes Electronically Signed On 09-10-2024 18:34:23 EDT by ANTOINE BUNCH Dictated By: Antoine Bunch D.O. Signed By: 09/10/24 1834 DD/ 1127 TD/TT: Purchasing Coordinator: Procedure Note Radiology, Radiologist, - 09/10/2024 The [place] [id number] Electrocardiograph Report Signed Patient: KERMIT ROSEN MMR#: [id number] : 1950Acct:[id number] Age/Sex: 74 / FADM Date: 09/10/24 Loc: PST Attending Dr: Azam Marinelli D.O. Ordering Physician: Azam Marinelli D.O. 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 Signed By:09/10/24 1834 DD/ 1127 TD/TT: Purchasing Coordinator: us Azam Marinelli DO [facility] Final Result documented in this encounter Visit Diagnoses Not on filedocumented in this encounter Care Teams Golf Club Repairer Relationship Specialty Start Date End Date Reggie Martinez MD [address] [place] [address] PCP - General Family Medicine 11/18/24 Vilma Mcallister NP [address] [place] [address] Referring Physician Family Medicine 11/13/23 documented as of this encounter
--- OUTSIDE RECORDS SUMMARY | 2025-08-18 19:37 | XMS_ITS | Encounter Summary ---
Author Organization [facility] Address [address] [place] [address] Care Team Providers Care Home Stager Name Role Phone Vilma Mcallister NP Unavailable [phone] Reggie Martinez MD Primary Care Provider [phone] Encounter Details Date Type Department Care Team (Late Contact Info) Description 12/10/2024 Abstract NOMKatherine JAIN [address] [facility] [place] [address] Christine Quintero LPN Social History Tobacco Use Types Packs/Day Years [...] PM EDT Procedure Visit NOMKatherine JAIN [address] [place] [address] Taniya Kebede PA [address] [place], [place] [address] [place], [facility]11 documented as of this encounter Visit Diagnoses Not on filedocumented in this encounter Care Teams Home Stager Relationship Specialty Start Date End Date Reggie Martinez MD [address] [place] [address] PCP - General Family Medicine 11/18/24 Vilma Mcallister NP [address] [place] [address] Referring Physician Family Medicine 11/13/23 documented as of this encounter
--- OUTSIDE RECORDS SUMMARY | 2025-08-18 19:37 | XMS_ITS | Encounter Summary ---
Author Organization [facility] Address [address] [place] [address] Care Team Providers Care Photographic Equipment Assembler Name Role Phone Vilma Mcallister NP Unavailable [phone] Reggie Martinez MD Primary Care Provider [phone] Encounter Details Date Type Department Care Team (Late Contact Info) Description 11/05/2024 Abstract NOMKatherine JAIN [address] [facility] [place] [address] Ryley Marinelli DO [address] [facility] [address] Angus Torrez, [facility]11 Social History Tobacco Use Types Packs/Day [...] PM EDT Procedure Visit JODIE JAIN [address] [facility] [place] [address] Taniya Kebede PA [address] [facility] [place] [address] documented as of this encounter Visit Diagnoses Not on filedocumented in this encounter Care Teams Photographic Equipment Assembler Relationship Specialty Start Date End Date Reggie Martinez MD [address] [place] [address] PCP - General Family Medicine 11/18/24 Vilma Mcallister NP [address] [place] [address] Referring Physician Family Medicine 11/13/23 documented as of this encounter
--- OUTSIDE RECORDS SUMMARY | 2025-08-18 19:37 | XMS_ITS | Encounter Summary ---
Author Organization [facility] Address [address] [place] [address] Care Team Providers Care Polytechnic Teacher Name Role Phone Vilma Mcallister NP Unavailable [phone] Reggie Martinez MD Primary Care Provider [phone] Encounter Details Date Type Department Care Team (Late Contact Info) Description 07/12/2024 Clinisync Result Encounter NOMS External Department Unsolicited Taniya Kebede PA [address] [place], [facility]11 Social History Tobacco Use Types Packs/Day [...] EDT Procedure Visit [facility] Lore JAIN [address] [place] [id number] Taniya Kebede PA [address] [place] [address] documented as of this encounter Procedures Procedure Name Priority Date/Time Associated Diagnosis Comments TBH PREG QUANT HCG Routine 07/12/2024 11 :30 AM EDT SRMCOH PROTHROMBIN TIME INR W/O COUM Routine 07/12/2024 11:30 AM EDT MLR HEMOGLOBIN A1C Routine 07/12/2024 11 :30 AM EDT [facility] APTT Routine 07/12/2024 11:30 AM EDT ALL THYROXINE (T4) FREE Routine 07/12/2024 11:30 AM EDT ALL THYROID STIM HORMONE Routine 07/12/2024 11:30 AM EDT ALL CBC WITH AUTO DIFF Routine 07/12/2024 11:30 AM EDT ALL CA 125 Routine 07/12/2024 11:30 AM EDT BI US BREAST COMPLETE BILATERAL 07/12/2024 11:10 AM EDT documented in this encounter Results * ALL CA 125 (07/12/2024 11:30 AM EDT) CANCER ANTIGEN (CA) 125 11.0 0.0 - 38.1 U/mL [facility] Comment: [facility] Electrochemiluminescence Immunoassay (ECLIA) Values obtained with different assay methods or kits cannot be used interchangeably. Results cannot be interpreted as absolute evidence of the presence or absence of malignant disease. Performed at: - Lab[address] [id number] Strategy Associate: Tyron Mcgrath PhD, Phone: [phone] 07/12/2024 11:3 0 AM EDT 07/12/2024 11:32 AM EDT Narrative CLINISYNC - 07/13/2024 4:07 AM EDT us Taniya AHN Final Result [facility]IN[facility] TB[facility] * TBH PREG QUANT HCG (07/12/2024 11:30 AM EDT) HCG QUANTITATIVE <1 mIU/mL TBH Comment: 5-50 0.2-1 WEEK 50-500 1-2 WEEKS 100-5,000 2-3 WEEKS 500-10,000 3-4 WEEKS 1,000-50,000 4-5 WEEKS 10,000-100,000 5-6 WEEKS 15,000-200,000 6-8 WEEKS 10,000-100,000 2-3 MONTHS 07/12/2024 11:3 0 AM EDT 07/12/2024 11:32 AM EDT Narrative CLINISYNC - 07/12/2024 12:40 PM EDT us Taniya AHN Final Result Performing Organization Address [facility] de Phone Number CL[facility]NC [facility] * ALL THYROID STIM HORMONE (07/12/2024 11:30 AM EDT) THYROID STIMULATING HORMONE 2.668 0.358 - 3.740 uIU/mL TBH 07/12/2024 11:3 0 AM EDT 07/12/2024 11:32 AM EDT Narrative CLINISYNC - 07/12/2024 12:40 PM EDT Taniya AHN Final Result Performing Organization Address [facility] de Phone Number [facility] * ALL THYROXINE (T4) FREE (07/12/2024 11:30 AM EDT) FREE T4 0.81 0.76 - 1.46 ng/dL TBH 07/12/2024 11:3 0 AM EDT 07/12/2024 11:32 AM EDT Narrative CLINISYNC - 07/12/2024 12:32 PM EDT us Taniya AHN Final Result Performing Organization Address [facility] de Phone Number [facility] * [facility] APTT (07/12/2024 11:30 AM EDT) PARTIAL THROMBOPLASTIN TIME 31.8 22.3 - 36.2 sec TB 07/12/2024 11:3 0 AM EDT 07/12/2024 11:32 AM EDT Narrative CLINISYNC - 07/12/2024 12:03 PM EDT us Taniya AHN Final Result Performing Organization Address [facility] de Phone Number [facility] * [facility] PROTHROMBIN TIME INR W/O COUM (07/12/2024 11:30 AM EDT) PROTHROMBIN TIME 10.6 9.0 - 11.6 sec [facility] INR 1.00 TBH Comment: DESIRED INR: 2.0-3.0 CONDITIONS NOT LISTED BELOW 2.5-3.5 FOR PROSTHETIC HEART VALVE REPLACEMENT 2.5-3.5 RECURRENT THROMBOSIS 07/12/2024 11:3 0 AM EDT 07/12/2024 11:32 AM EDT Narrative CLINISYNC - 07/12/2024 12:03 PM EDT us Taniya AHN Final Result Performing Organization Address [facility] de Phone Number [facility] * MLR HEMOGLOBIN A1C (07/12/2024 11:30 AM EDT) GLYCOHEMOGLOBIN A1C 5.3 4.5 - 6.2 % TB Comment: ADA RECOMMENDED LIMIT 4.0 - 6.0 ADA THERAPEUTIC TARGET < 7.0 ACTION SUGGESTED > 7.0 ESTIMATED AVERAGE GLUCOSE 105 mg/dL TB 07/12/2024 11:3 0 AM EDT 07/12/2024 11:32 AM EDT Narrative CLINISYNC - 07/12/2024 11:56 AM EDT us Taniya AHN Final Result Performing Organization Address City/[facility] de Phone Number [facility] * ALL CBC WITH AUTO DIFF (07/12/2024 11:30 AM EDT) [facility] TB WBC 4.5 4.0 - 11.0 10 3/uL TBH TBH RBC 4.38 4.20 - 5.40 10 6/uL TBH TBH HGB 13.4 12.0 - 16.0 g/dL TBH TBH HCT 40.0 36.0 - 48.0 % TBH TBH MCV 91.3 81.0 - 99.0 fL TBH TBH MCH 30.6 26.7 - 34.0 pg TBH TBH MCHC 33.5 29.9 - 35.2 g/dL TBH TBH RDW 12.4 11.0 - 15.0 % TBH TBH PLT 217 150 - 450 10 3/uL TBH TBH MPV 10.5 9.5 - 13.5 fL TBH NEUTROPHILS PERCENT AUTO 54.2 43.0 - 75.0 % TBH LYMPHOCYTES PERCENT AUTO 37.5 20.5 - 60.0 % TBH MONOCYTES PERCENT AUTO 6.1 1.7 - 12.0 % TBH TBH EO % 1.8 0.9 - 7.0 % TBH BASOPHILS PERCENT AUTO 0.4 0.2 - 2.0 % TBH IMMATURE GRANULOCYTES PCT AUTO 0.0 0.0 - 0.5 % TBH NEUTROPHILS ABSOLUTE AUTO 2.4 1.4 - 6.5 10 3/uL TBH LYMPHOCYTES ABSOLUTE AUTO 1.7 1.2 - 3.8 10 3/uL TBH MONOCYTES ABSOLUTE AUTO 0.3 0.3 - 0.8 10 3/uL TBH TBH EO # 0.1 0.0 - 0.7 10 3/uL TBH BASOPHILS ABSOLUTE AUTO 0.0 0.0 - 0.1 10 3/uL TBH IMMATURE GRANULOCYTES ABS AUTO 0.00 0.00 - 0.03 10 3/uL TBH 07/12/2024 11:3 0 AM EDT 07/12/2024 11:32 AM EDT Narrative CLINISYNC - 07/12/2024 11:52 AM EDT Taniya CORTEZ CLINISYNC Final Result CLINISYNC TBH * Bilateral breast US complete (07/12/2024 11:10 AM EDT) Anatomical Region Laterality Modality Breast Bilateral Ultrasound 07/12/2024 11:1 0 AM EDT Narrative 07/12/2024 11:11 [place] [address] Ultrasound Report Signed Patient: KERMIT ROSEN MR#: [id number] : 1950 Acct:[id number] Age/Sex: 74 / F ADM Date: 07/12/24 Loc: US Attending Dr: Taniya Kebede Ordering Physician: Taniya Kebede Date of Service: 07/12/24 Procedure(s): US breast BI complete Accession Number(s): [id number] cc: Taniya Kebede; Physician,Non-Staff M.DJuanita Patient Name: KERMIT ROSEN MR#: [id number] : 1950 Exam Date: 07/12/2024 Ordering Doctor: DIEGO Kebede . RADIOLOGY REPORT PROCEDURE: US BREAST BI COMPLETE COMPARISON: None. INDICATIONS: Breast Cancer Screening, Disorder Of Breast TECHNIQUE: Breast ultrasound was performed, with evaluation focusing only on specific areas of concern. FINDINGS: DIAGNOSTIC CATEGORY 0--INCOMPLETE: NEED ADDITIONAL IMAGING EVALUATION. Identified at the 10 o'clock position of the right breast is increase in size of ill-defined hypoechogenicity now measuring 1.0 x 0.4 x 0.5 cm with acoustic shadowing. Adjacent to this area is what appears to be a normal-size normal morphology lymph node measuring 4.1 mm. Mammogram follow-up is recommended Ultrasound of the left breast demonstrates no focal abnormality RECOMMENDATIONS: ADDITIONAL MAMMOGRAPHIC VIEWS REQUIRED: BILATERAL diagnostic mammogram PLEASE NOTE: A NORMAL ULTRASOUND EXAMINATION DOES NOT EXCLUDE THE POSSIBILITY OF BREAST CANCER. A CLINICALLY SUSPICIOUS PALPABLE LUMP SHOULD BE BIOPSIED. Dictated by: Riccardo Venegas MD on 07/12/2024 at 11:07 Approved by: Riccardo Venegas MD on 07/12/2024 at 11:10 Dictated By: Riccardo Venegas M.D. Signed By: 07/12/24 1111 DD/ 1110 TD/TT: Clock Smith: Procedure Note Radiology, Radiologist, - 07/12/2024 [place] [address] Ultrasound Report Signed Patient: KERMIT ROSEN MMR#: [id number] : 1950Acct:[id number] Age/Sex: 74 / FADM Date: 07/12/24 Loc: US Attending Dr: Taniya Kebede Ordering Physician: Taniya Kebede Date of Service: 07/12/24 Procedure(s): US breast BI complete Accession Number(s): [id number] cc: Taniya Kebede; Physician,Non-Staff M.DJuanita Patient Name: KERMIT ROSEN MR#: [id number] : 1950 Exam Date: 07/12/2024 Ordering Doctor: DIEGO Kebede . RADIOLOGY REPORT PROCEDURE: US BREAST BI COMPLETE COMPARISON: None. INDICATIONS: Breast Cancer Screening, Disorder Of Breast TECHNIQUE: Breast ultrasound was performed, with evaluation focusingonly on specific areas of concern. FINDINGS: DIAGNOSTIC CATEGORY 0--INCOMPLETE: NEED ADDITIONAL IMAGING EVALUATION. Identified at the 10 o'clock position of the right breast is increase insize of ill-defined hypoechogenicity now measuring 1.0 x 0.4 x 0.5 cm withacoustic shadowing. Adjacent to this area is what appears to be a normal-sizenormal morphology lymph node measuring 4.1 mm. Mammogram follow-up isrecommended Ultrasound of the left breast demonstrates no focal abnormality RECOMMENDATIONS: ADDITIONAL MAMMOGRAPHIC VIEWS REQUIRED: BILATERAL diagnostic mammogram PLEASE NOTE: A NORMAL ULTRASOUND EXAMINATION DOES NOT EXCLUDE THEPOSSIBILITY OF BREAST CANCER. A CLINICALLY SUSPICIOUS PALPABLE LUMP SHOULD BEBIOPSIED. Dictated by: Riccardo Venegas MD on 07/12/2024 at 11:07 Approved by: Riccardo Venegas MD on 07/12/2024 at 11:10 Dictated By: Riccardo Venegas M.D. Signed By:07/12/24 1111 DD/ 1110 TD/TT: Clock Smith: us Taniya CORTEZ IMG US PROCEDURES Final Result documented in this encounter Visit Diagnoses Not on filedocumented in this encounter Care Teams Polytechnic Teacher Relationship Specialty Start Date End Date Reggie Martinez MD [address] [place] [address] PCP - General Family Medicine 11/18/24 Vilma Mcallister NP [address] [place] [address] Referring Physician Family Medicine 11/13/23 documented as of this encounter
--- OUTSIDE RECORDS SUMMARY | 2025-08-18 19:37 | XMS_ITS | Encounter Summary ---
Author Organization [facility] Address [address] [place] [address] Care Team Providers Care Cigar Head Puncher Name Role Phone Vilma Mcallister NP Unavailable [phone] Reggie Martinez MD Primary Care Provider [phone] Encounter Details Date Type Department Care Team (Late Contact Info) Description 11/25/2024 Clinisync Result Encounter NOMS External Department Unsolicited Ryley Marinelli DO [address] Angus Torrez, [facility]11 Social History Tobacco Use Types Packs/Day [...] PM EDT Procedure Visit NOMKatherine JAIN [address] [place] [address] Taniya Kebede PA [address] [place] [address] documented as of this encounter Procedures Procedure Name Priority Date/Time Associated Diagnosis Comments MM TOMOSYNTHESIS DIAGNOSTIC BI 11/25/2024 3:53 PM EST documented in this encounter Results * MM TOMOSYNTHESIS DIAGNOSTIC BI (11/25/2024 3:53 PM EST) Anatomical Region Laterality Modality Other 11/25/2024 3:53 PM EST Narrative 11/25/2024 3:54 [place] [address] Mammography Report Signed Patient: KERMIT ROSEN MR#: [id number] : 1950 Acct:[id number] Age/Sex: 74 / F ADM Date: 11/25/24 Loc: MAMMO Attending Dr: Ryley Marinelli D.O. Ordering Physician: Ryley Marinelli D.O. Results: Date of Service: 11/25/24 Follow Up: Procedure(s): MM tomosynthesis diagnostic BI Accession Number(s): [id number] cc: Ryley Marinelli D.O.; Physician,Non-Staff Beck Patient Name: KERMIT ROSEN MR#: [id number] : 1950 Exam Date: 11/25/2024 Ordering Doctor: DR Ryley Marinelli . RADIOLOGY REPORT PROCEDURE: MM TOMOSYNTHESIS DIAGNOSTIC BI COMPARISON: US BREAST BI COMPLETE, 07/12/2024. MAMMO POST HOOKWIRE RIGHT, 02/02/2021. MM TOMOSYNTHESIS DIAGNOSTIC RT, 01/03/2021. INDICATIONS: Abnormal Mammogram Calculator Name NCI Breast Cancer Risk Assessment Tool 5 Year Breast Cancer Risk Not Reported. Lifetime Breast Cancer Risk Not Reported. Personal Breast Cancer No Personal Ovarian Cancer No Treatments None Family Cancers None LOCATION: [facility] BREAST COMPOSITION: There are scattered areas of fibroglandular density. FINDINGS: DIAGNOSTIC CATEGORY 3--PROBABLY BENIGN FINDING. THE FOLLOWING FINDING(S) HAS A HIGH PROBABILITY OF A BENIGN ETIOLOGY: RIGHT BREAST: Suspected biopsy marker and post biopsy scarring within posterior upper-outer quadrant which correlates to findings on prior ultrasound study; neoplasm is felt less likely. (Please correlate with patient history). LEFT BREAST: No significant suspicious finding. RECOMMENDATIONS: SHORT TERM FOLLOW-UP DIAGNOSTIC MAMMOGRAM RIGHT BREAST IN 6 MONTHS. PLEASE NOTE: A NORMAL MAMMOGRAM DOES NOT EXCLUDE THE POSSIBILITY OF BREAST CANCER. A CLINICALLY SUSPICIOUS PALPABLE LUMP SHOULD BE BIOPSIED. Dictated by: Guanakito Vásquez M.D. on 11/25/2024 at 15:42 Approved by: Guanakito Vásquez M.D. on 11/25/2024 at 15:53 Dictated By: Guanakito Vásquez M.D. Signed By: 11/25/24 1554 DD/ 155 TD/TT: Network Administrator: Procedure Note Radiology, Radiologist, MD - 11/25/2024 [place] [address] Mammography Report Signed Patient: KERMIT ROSEN MMR#: [id number] : 1950Acct:[id number] Age/Sex: 74 / FADM Date: 11/25/24 Loc: MAMMO Attending Dr: Ryley Marinelli D.O. Ordering Physician: Ryley Marinelli D.O.Results: Date of Service: 11/25/24Follow Up: Procedure(s): MM tomosynthesis diagnostic BI Accession Number(s): [id number] cc: Ryley Marinelli D.O.; Physician,Non-Staff Beck Patient Name: KERMIT ROSEN MR#: [id number] : 1950 Exam Date: 11/25/2024 Ordering Doctor: DR Ryley Marinelli . RADIOLOGY REPORT PROCEDURE: MM TOMOSYNTHESIS DIAGNOSTIC BI COMPARISON: US BREAST BI COMPLETE, 07/12/2024. MAMMO POST HOOKWIRERIGHT, 02/02/2021. MM TOMOSYNTHESIS DIAGNOSTIC RT, 01/03/2021. INDICATIONS: Abnormal Mammogram Calculator Name NCI Breast Cancer Risk Assessment Tool 5 Year Breast Cancer Risk Not Reported. Lifetime Breast Cancer Risk Not Reported. Personal Breast Cancer No Personal Ovarian Cancer No Treatments None Family Cancers None LOCATION: [facility] BREAST COMPOSITION: There are scattered areas of fibroglandulardensity. FINDINGS: DIAGNOSTIC CATEGORY 3--PROBABLY BENIGN FINDING. THE FOLLOWING FINDING(S)HAS A HIGH PROBABILITY OF A BENIGN ETIOLOGY: RIGHT BREAST: Suspected biopsy marker and post biopsy scarring within posterior upper-outer quadrant which correlates to findings on prior ultrasound study; neoplasm is felt less likely. (Please correlate with patient history). LEFT BREAST: No significant suspicious finding. RECOMMENDATIONS: SHORT TERM FOLLOW-UP DIAGNOSTIC MAMMOGRAM RIGHT BREAST IN 6 MONTHS. PLEASE NOTE: A NORMAL MAMMOGRAM DOES NOT EXCLUDE THE POSSIBILITY OFBREAST CANCER. A CLINICALLY SUSPICIOUS PALPABLE LUMP SHOULD BE BIOPSIED. Dictated by: Guanakito Vásquez M.D. on 11/25/2024 at 15:42 Approved by: Guanakito Vásquez M.D. on 11/25/2024 at 15:53 Dictated By: Guanakito Vásquez M.D. Signed By:11/25/24 1554 DD/ 155 TD/TT: Network Administrator: us Ryley Isis DO [facility] Final Result documented in this encounter Visit Diagnoses Not on filedocumented in this encounter Care Teams Cigar Head Puncher Relationship Specialty Start Date End Date Reggie Martinez MD [address] [place] [address] PCP - General Family Medicine 11/18/24 Vilma Mcallister NP [address] [place] [address] Referring Physician Family Medicine 11/13/23 documented as of this encounter
--- OUTSIDE RECORDS SUMMARY | 2025-08-18 19:37 | XMS_ITS | Encounter Summary ---
Author Organization [facility] Address [address] [place] [address] Care Team Providers Care Ballistician Name Role Phone Vilma Mcallister NP Unavailable [phone] Reggie Martinez MD Primary Care Provider Encounter Details Date Type Department Care Team (Late Contact Info) Description 08/11/2023 Clinisync Result Encounter NOMS External Department Unsolicited Azam Marinelli DO [address] [facility] [address] Angus Torrez, [facility]11 Social History Tobacco Use Types Packs/Day Years [...] PM EDT Procedure Visit NOMKatherine JAIN [address] [address] Taniya Kebede PA [address] [place] [address] documented as of this encounter Procedures Procedure Name Priority Date/Time Associated Diagnosis Comments XR DEXA AXIAL SKELETON 08/11/2023 4:59 PM EDT documented in this encounter Results * XR DEXA AXIAL SKELETON (08/11/2023 4:59 PM EDT) Anatomical Region Laterality Modality Other 08/11/2023 4:59 PM EDT Narrative 08/11/2023 4:59 [place] [address] XRay Report Signed Patient: Kermit Rosen MR#: [id number] : 1950 Acct:[id number] Age/Sex: 73 / F ADM Date: 08/11/23 Loc: OLIVA Attending Dr: Azam Marinelli D.O. Ordering Physician: Azam Marinelli D.O. Date of Service: 08/11/23 Procedure(s): XR DEXA axial skeleton Accession Number(s): [id number] cc: Azam Marinelli D.O.; Physician,Non-Staff M.DJuanita [facility] [place] [id number] Patient Name: KERMIT ROSEN MRN: [id number] date: 1950 Sex: F Assigned Patient Location: [facility] Current Patient Location: [facility] Accession/Order Number: [id number] Exam Date: 08/11/2023 11:20 Report Date: 08/11/2023 16:59 At the request of: AZAM MARINELLI Procedure: XR DEXA axial skeleton EXAMINATION: XR DEXA axial skeleton, 08/11/2023 11:20 AM EDT HISTORY: Post Menopausal State Z78.0 COMPARISON: 2020 TECHNIQUE: Dual-energy X-ray absorptiometry (DEXA) bone density study performed for the axial skeleton. HISTORY: Post Menopausal State Z78.0 FINDINGS: Bone mineral density AP spine L2-L4 measures 0.747 g/sq cm. T score -3.8. WHO classification: Osteoporosis. Total femoral bone mineral density measures 0.678 g/sq cm. T score -2.6. WHO classification: Osteoporosis XR/XR DEXA axial skeleton IMPRESSION: Osteoporosis. High fracture risk Electronically authenticated by: HARMAN LEMONS Date: 08/11/2023 16:59 Dictated By: Harman Lemons M.D. Signed By: 08/11/23 6593 DD/ 632 TD/TT: Doughnut Dough Mixer: Procedure Note Radiology, Radiologist, - 08/22/2023 [place] [address] XRay Report Signed Patient: Kerimt Rosen MMR#: [id number] : 1950Acct:[id number] Age/Sex: 73 / FADM Date: 08/11/23 Loc: OLIVA Attending Dr: Azam Marinelli D.O. Ordering Physician: Azam Marinelli D.O. Date of Service: 08/11/23 Procedure(s): XR DEXA axial skeleton Accession Number(s): [id number] cc: Azam Marinelli D.O.; Physician,Non-Staff Beck [facility] [place] [address] Patient Name: KERMIT ROSEN MRN: [id number] date: 1950 Sex: F Assigned Patient Location: [facility] Current Patient Location: [facility] Accession/Order Number: [id number] Exam Date: 08/11/2023 11:20 Report Date: 08/11/2023 16:59 At the request of: AZAM MARINELLI Procedure: XR DEXA axial skeleton EXAMINATION: XR DEXA axial skeleton, 08/11/2023 11:20 AM EDT HISTORY: Post Menopausal State Z78.0 COMPARISON: 2020 TECHNIQUE: Dual-energy X-ray absorptiometry (DEXA) bone density study performed for the axial skeleton. HISTORY: Post Menopausal State Z78.0 FINDINGS: Bone mineral density AP spine L2-L4 measures 0.747 g/sq cm. T score -3.8.WHO classification: Osteoporosis. Total femoral bone mineral density measures 0.678 g/sq cm. T score -2.6.WHO classification: Osteoporosis XR/XR DEXA axial skeleton IMPRESSION: Osteoporosis. High fracture risk Electronically authenticated by: HARMAN LEMONS Date: 08/11/2023 16:59 Dictated By: Harman Lemons M.D. Signed By:08/11/23 1703 DD/ 9769 TD/TT: Doughnut Dough Mixer: us Azam Isis DO [facility] Final Result documented in this encounter Visit Diagnoses Not on filedocumented in this encounter Care Teams Ballistician Relationship Specialty Start Date End Date Reggie Martinez MD [address] [place] [address] PCP - General Family Medicine 11/18/24 Vilma Mcallister NP [address] [place] [address] Referring Physician Family Medicine 11/13/23 documented as of this encounter
--- OUTSIDE RECORDS SUMMARY | 2025-08-18 19:37 | XMS_ITS | Encounter Summary ---
Author Organization [facility] Address [address] [place] [address] Care Team Providers Care Retanned Leather Roller Name Role Phone Vilma Mcallister NP Unavailable [phone] Reggie Martinez MD Primary Care Provider [phone] Encounter Details Date Type Department Care Team (Late Contact Info) Description 07/11/2023 Abstract NOMKatherine JAIN [address] [place] [address] Taniya Kebede PA [address] [place] [address] Dr [place], [place] [address] Social History Tobacco Use Types Packs/Day Years [...] PM EDT Procedure Visit JODIE JAIN [address] [place] [address] Taniya Kebede, PA [address] [place] [address] Dr [place], [facility] documented as of this encounter Visit Diagnoses Not on filedocumented in this encounter Care Teams Retanned Leather Roller Relationship Specialty Start Date End Date Reggie Martinez MD [address] [place] [address] PCP - General Family Medicine 11/18/24 Vilma Mcallister NP [address] [place] [address] Referring Physician Family Medicine 11/13/23 documented as of this encounter
--- OUTSIDE RECORDS SUMMARY | 2025-08-18 19:37 | XMS_ITS | Encounter Summary ---
Author Organization [facility] Address [address] [place] [address] Care Team Providers Care Rivet Passer Name Role Phone Cristin Roblero CNP Primary Care Provider [phone] Source Comments In the event this information is protected by the Federal Confidentiality of Alcohol and Drug AbusePatient Records regulations: The Federal rules restrict any use of the information to criminally investigate or prosecute any alcohol or drug abuse patient.[facility] Encounter Details Date Type Department Care Team (Late st Contact Info) Description 07/08/2025 Patient Msg Colorectal Surgery [address] [place] [id number] Provider, [facility] Colonoscopy Prep Instructions Social History Tobacco Use Types Packs/Day Years Used Date Smoking Tobacco: Never Smokeless Tobacco: Never Area Deprivation Index Answer Date Placido rded National Score (1-100), lower number is lower ri sk Not on file 11/08/2020 State Score (1-10), lower number is lower risk N ot on file 11/08/2020 Data from: https://www.neighborhoodatlas.medicine.[facility].edu/. Last address used for calculation Not on [...] 10:30 AM EST Appointment Gastroenterology [address] [place] [address] Janelle Presley MD [address] [place] [address] Colon polyps*Please call the office to Reschedule* documented as of this encounter Visit Diagnoses Not on filedocumented in this encounter Care Teams Rivet Passer Relationship Specialty Start Date End Date Cristin Roblero CNP [address] [place] [address] PCP - General Family Medicine 11/20/20 documented as of this encounter
--- OUTSIDE RECORDS SUMMARY | 2025-08-18 19:37 | XMS_ITS | Clinical Summary ---
Author Organization [facility] Address [address] [place] [address] Care Team Providers Care Security Specialist Name Role Phone Cristin Roblero DONATO Primary Care Provider [phone]- [phone] Allergies Active Allergy Reactions Criticality Noted Date Comments Citalopram Unknown 04/09/2021 felt horrible Diclofenac Sodium Intolerance 04/09/2021 raised blood pressure Doxycycline Unknown 04/09/2021 Thiazides Unknown 04/09/2021 Lisinopril Intolerance 04/09/2021 Medications famotidine (PEPCID) 20 mg tablet Take 20 mg by mouth twice daily. Active GAMMA OPERATOR THYROID 30 mg tablet Take 30 mg by mouth once daily. Active metoprolol succinate ER (TOPROL XL) 50 mg 24 hr tablet Take 50 mg by mouth once daily. Active losartan (COZAAR) 50 mg tablet Take 50 mg by mouth once daily. Active aspirin, enteric coated (ASPIRIN, ENTERIC COATED) 81 mg EC tablet Take 81 mg by mouth once daily. Active sertraline (ZOLOFT) 100 mg tablet Take 100 mg by mouth once daily. Active ALPRAZolam (XANAX) 0.25 mg tablet Take 0.25 mg by mouth as needed. Active peg 3350-Electrolyt es (GOLYTELY) 236-22.74-6.74 -5.86 gram suspension Refer to printed prep instructions from your provider. 4000 mL Active Active Problems Problem Noted Date Diagnosed Date YOSELIN positive 04/09/2021 Elevated sed rate 04/09/2021 Bilateral hand pain 04/09/2021 Secondary osteoarthritis of multiple sites 04/09 Postmenopausal osteoporosis of multiple sites Numbness and tingling in both hands 04/09/2021 Numbness and tingling of foot 04/09/2021 Dry eye syndrome of both eyes 04/09/2021 Dry mouth 04/09/2021 Cervicalgia 04/09/2021 Encounters Date Type Department Care Team Description 07/08/2025 Patient Msg Colorectal Surgery [address] [place] [address] Provider, [facility] Colonoscopy Prep Instructions 07/08/2025 Orders Only Colorectal Surgery [address] [place] [id number] Janelle Presley MD Polyp of colon, unspecified part of colon, unspecified type (Primary Dx) 07/05/2025 Telephone Colorectal Surgery [address] [place] [id number] Janelle Presley MD 05/24/2025 Telephone Colorectal Surgery [address] [place] [id number] Janelle Presley MD Referral Request; ESD from Last 3 Months Social History Tobacco Use Types Packs/Day Years Used Date Smoking Tobacco: Never Smokeless Tobacco: Never Area Deprivation Index Answer Date Placido rded National Score (1-100), lower number is lower ri sk Not on file 11/08/2020 State Score (1-10), lower number is lower risk N ot on file 11/08/2020 Data from: https://www.neighborhoodatlas.medicine.[facility].edu/. Last address used for calculation Not on file 11/08/2020 Comments No Sex and Gender Information Value Date Recorded Sex Assigned at Not on file Legal Sex Female 12:28 PM EDT Gender Identity Not on file Sexual Orientation Not on file Last Filed Vital Signs Vital Sign Reading Time Taken Comments Blood Pressure 146/86 04/09/2021 2:25 PM EDT Pulse 56 04/09/2021 2:25 PM EDT Temperature - - Respiratory Rate - - Oxygen Saturation - - Inhaled Oxygen Concentration - - Weight 55.3 kg (122 lb) 04/09/2021 2:25 PM EDT Height 154.9 cm (5' 1 ) 04/09/2021 2:25 PM EDT Body Mass Index 23.05 04/09/2021 2:25 PM EDT Plan of Treatment Upcoming Encounters Date Type Department Care Team (Late st Contact Info) Description 10/31/2025 10:30 AM EST Appointment Gastroenterology [address] [place] [address] Janelle Presley MD [address] [place] [address] Colon polyps*Please call the office to Reschedule* Health Maintenance Due Date Last Done Comments Anxiety Screening 1968 Depression Screening 1968 Hepatitis C Screening 1968 CT Colonography 1995 Cologuard (FIT-DNA) 1995 Colonoscopy 1995 Colorectal Cancer Screening 1995 Diabetes Screening 1995 Fecal Occult Blood 1995 Lipid Screening 1995 Sigmoidoscopy 1995 Shingrix Vaccine (1 of 2) 2000 Bone Density Screening 2015 DTaP,Tdap,Td Vaccine (2 - Td or Tdap) 05/22/2020 Advance Directive Discussion 12/01/2024 RSV Vaccine (1 - 1-dose 75+ series) 2025 Influenza Vaccine (#1) 2025 04/02/2013 Pneumococcal Vaccine: 50+ Completed 2019, 09/25/2019, 12/01/2018 Insurance [facility] Member Subscriber Plan / Payer (Ef fective 2024-Present) Name:Elio Rosen Member ID:[id number] Relation to Subscriber:Self Name:Elio Rosen Subscriber ID:[id number] Payer ID:Not on file Group ID:Not on file Type:HMO Address: [facility] [id number] [place] [address] Care Teams Security Specialist Relationship Specialty Start Date End Date Cristin Roblero CNP [address] [place] [address] PCP - General Family Medicine 12/21/20
--- OUTSIDE RECORDS SUMMARY | 2025-08-18 19:37 | XMS_ITS | Encounter Summary ---
Author Organization [facility] Address [address] [place], [place] [id number] Care Team Providers Care Photonic Laboratory Technician Name Role Phone Cristin Roblero CNP Primary Care Provider [phone]- [phone] Source Comments In the event this information is protected by the Federal Confidentiality of Alcohol and Drug AbusePatient Records regulations: The Federal rules restrict any use of the information to criminally investigate or prosecute any alcohol or drug abuse patient.[facility] Encounter Details Date Type Department Care Team (Late st Contact Info) Description 07/05/2025 Telephone Colorectal Surgery [address] [place] [phone] Janelle Presley MD [address] [facility] [address] [place] [phone] Social History Tobacco Use Types Packs/Day Years Used Date Smoking Tobacco: Never Smokeless Tobacco: Never Area Deprivation Index Answer Date Placido rded National Score (1-100), lower number is lower ri sk Not on file 11/08/2020 State Score (1-10), lower number is lower risk N ot on file 11/08/2020 Data from: https://www.neighborhoodatlas.medicine.[facility].edu/. Last address used for calculation Not on file 11/08/2020 Comments No Sex and Gender Information Value Date Recorded Sex Assigned at Not on file Legal Sex Female 12:28 PM EDT Gender Identity Not on file Sexual Orientation Not on file documented as of this encounter Miscellaneous Notes * Telephone Encounter - Elena Franks - 07/05/2025 10:01 AM EDT ELS Phone Encounter Date 07/05/2025 Time 1001 Physician Sakina Notes: Confirm date and time Did the patient answer/called in/left a vm: answered Person taking this note: BL documented in this encounter Plan of Treatment Upcoming Encounters Date Type Department Care Team (Late st Contact Info) Description 10/31/2025 10:30 AM EST Appointment Gastroenterology [address] [place] [address] Janelle Presley MD [address] [place] [address] Colon polyps*Please call the office to Reschedule* documented as of this encounter Visit Diagnoses Not on filedocumented in this encounter Care Teams Photonic Laboratory Technician Relationship Specialty Start Date End Date Cristin Roblero CNP [address] [place] [address] PCP - General Family Medicine 11/20/20 documented as of this encounter
--- OUTSIDE RECORDS SUMMARY | 2025-08-18 19:38 | XMS_ITS | CCD ---
Author Organization [facility] [employer] Care Team Providers Care Transportation Agent Name Role Phone CRIS VALENZUELA Unavailable Unavailable [...] Consulting Unavailable Osbaldo SEWELLCristin Primary Care Provider [phone] ANIKA De La Rosa Primary Care Provide r MD Jay Jay Pisano Attending Provider [phone] Cmaryn De La Rosa Unavailable [phone] Ms. Camryn De La Rosa Primary Care Unava ilford Pisano, Dr. Jay Jay Lewis Attending Kimberley vailable Davey, Dr. Jay Jay Lewis Referring Kimberley vailable Camryn De La Rosa Primary Care Physician Vilma Mcallister Primary Care Physician Ryley Marinelli Attending Provider ANIKA De La Rosa Primary Care Provide r Vilma Mcallister Attending Unavailable Vilma Mcallister Admitting Unavailable Vilma Mcallister NP Unavailable [phone] Unavailable Primary Care Provider UnavailReggie Mills MD Primary Care Provider [phone] Vilma Mcallister Primary Care Physician SY WICK Primary Care Physician [phone] JAY JAY PISANO Attending Unavailable CAMRYN DE LA ROSA Primary Care Unavailable SY WICK Admitting Unavailashish e SY WICK Attending UnavailSY Denny Referring UnavailSingh Stinson Admitting Unavailable Singh Sellers Attending Unavailable Singh Sellers Referring Unavailable Osbaldo SEWELL Cristin Mix Primary Care Provider [phone] Singh SPENCER Attending Unavailable TRACI WICK Attending Unav ailTRACI Bautista Attending Unav ailable TRACI WICK Attending Unav ailable Ryley Marinelli DO Attending Provider [phone] NON STAFF Primary Care Provider UnavailBravo Lou DO Attending Provider [phone] Vilma Mcallister Attending Unavailable SY WICK Referring Unavailashish e SY WICK Admitting Unavailashish e SY WICK Attending Unavailabl e SY WICK Attending Unavailashish e SY WICK Referring Unavailashish e SY WICK Admitting Unavailashish e SY WICK Attending UnavailSY Denny Admitting UnavailSY Denny Attending UnavailSY Denny Attending Unavailabl e Jia, Bravo Admitting Unavailable Itlizeth, Bravo Attending Unavailable NON STAFF Primary Care Unavailable Ryley Marinelli Attending Unavailable NON STAFF Primary Care Unavailable Isis, Ryley Admitting Unavailable Itlizeth, Bravo Admitting Unavailable Itlizeth, Bravo Attending Unavailable NON STAFF Primary Care Unavailable Rlyey Marinelli Admitting Unavailable Ryley Marinelli Attending Unavailable TRACI WICK Admitting Unav ailable TRACI WICK Attending Unav ailForrest Valdez Attending Unavailable Severino Huerta Attending Unavailable TRACI WICK Attending Unav ailable TRACI WICK Attending Unav ailDONATO Ac Attending UnavailVilma Abrams Attending Unavailable Vilma Mcallister Attending Unavailable Vilma Mcallister Attending Unavailable Vilma Mcallister Attending Unavailable Vilma Mcallister Attending Unavailable Vilma Mcallister Referring Unavailable Singh Sellers Attending Unavailable TRACI WICK Referring Unav ailable TRACI WICK Admitting Unav ailable RTACI WICK Attending Unav ailable TRACI WICK Attending Unav ailable TRACI IWCK Admitting Unav ailable TRACI WICK Attending Unav ailable BRAVO DASILVA Attending Unavailable NORMA VARGAS Attending Unavailable RYLEY MARINELLI Attending Unavailable TANIYA KEBEDE Attending Unavailable NORMA VARGAS Attending Unavailable Allergies Allergy Classification Reported Allergen(s) Allergy Type Date of Onset Reaction(s) Facility Angiotensin Converting Enzyme (CARMELINA) Inhibitors (1 source) Lisinopril; Translations: [lisinopril] Drug Allergy Unknown (qualifier value) [facility] Doxycycline (1 source) Doxycycline; Translations: [doxycycline] Drug Allergy Mycosis (disorder) [facility] hydroCHLOROthiazide (1 source) hydroCHLOROthiazide; Translations: [hydrochlorothiazide] Drug Allergy Disorder of electrolytes (disorder) [facility] NSAIDs (2 sources) Diclofenac; Translations: [diclofenac] Drug Allergy Hypertensive disorder, systemic arterial (disorder) [facility] [place] Propranolol (1 source) Propranolol; Translations: [propranolol] Drug Allergy hives [facility] Serotonin Reuptake Inhibitors (SSRIs) (2 sources) Citalopram; Translations: [citalopram] Drug Allergy Unknown (qualifier value) [facility] (9 sources) atorvastatin; Translations: [atorvastatin] Drug Allergy 023 Unknown [facility] (20 sources) Citalopram; Translations: [CeleXA TABS] Drug Allergy 019 Unknown (qualifier value), Unknown [facility] TVu roger 250 DO Work Phone: (20 sources) Diclofenac; Translations: [diclofenac] Drug Allergy 023 Hypertensive disorder, systemic arterial (disorder), Unknown [facility] roger 250 DO Work Phone: [phone] (20 sources) Doxycycline; Translations: [doxycycline] Drug Allergy 021 Mycosis (disorder), Unknown [facility] roger 250 DO Work Phone: [phone] (20 sources) hydroCHLOROthiazide; Translations: [hydrochlorothiazide] Drug Allergy 019 Disorder of electrolytes (disorder), Unknown [facility]ger 250 DO Work Phone: (20 sources) Lisinopril; Translations: [lisinopril] Drug Allergy 019 Unknown (qualifier value), Intolerance, Cough [facility] roger 250 DO Work Phone: (20 sources) Propranolol; Translations: [propranolol] Drug Allergy 08-29-2 019 Unknown [facility]ger 250 DO Work Phone: (20 sources) Diclofenac; Translations: [diclofenac sodium] Drug Allergy Intolerance [facility] (1 source) Thiazides Propensity to adverse reactions to drug Unknown [facility] (7 sources) Citalopram; Translations: [CITALOPRAM] Drug Allergy Muscle Pain [facility] (17 sources) atorvastatin Drug Allergy [facility] Work Phone: (17 sources) benzonatate Drug Allergy [facility] (18 sources) benzyl benzoate Drug Allergy [facility] (18 sources) hydroCHLOROthiazide Drug Allergy [facility] (18 sources) Lisinopril Propensity to adverse reactions Cough [facility] (17 sources) Octacosanol Drug Allergy [facility] (17 sources) Other Propensity to adverse reactions [facility] (5 sources) Citalopram; Translations: [Citalopram Hydrobromide] Drug Allergy [facility] (5 sources) Citalopram; Translations: [CeleXA] Drug Allergy [facility] (5 sources) Diclofenac; Translations: [Voltaren Topical] Drug Allergy [facility] (5 sources) Hydroflumethiazide; Translations: [hydroflumethiazide] Drug Allergy [facility] (5 sources) No Known Medication Allergies; Translations: [No Known Medication Allergies] Propensity to adverse reactions (disorder) [facility] (1 source) Thiazides Propensity to adverse reactions to drug Unknown [facility] (3 sources) Sutab; Translations: [Sutab] Propensity to adverse reactions (disorder) [facility] (1 source) hydroCHLOROthiazide Drug Allergy [facility] (1 source) Lisinopril Drug Allergy [facility] (1 source) Propranolol Drug Allergy [facility] Medications Current Medications Medication Drug Class(es) Dates Sig (Normalized) Sig (Original) [id number] 200 actuat albuterol 0.09 mg/actuat metered dose inhaler (17 sources) beta2-Adrenergic Agonist albuterol HFA 90 mcg/act inhaler Active Albuterol (Eqv-Ventolin HFA) 90 mcg/inh inhalation aerosol (2 sources) Start: 09-04-2023 take 2 puff(s) by inhalation every six hours Albuterol (Eqv-Ventolin HFA) 90 mcg/inh inhalation aerosol 2 puff(s), Inhalation, q6hr, 18 gm, Refill(s) 0, [facility], 154, cm, 09/04/23 9:44:00 EDT, Height/Length Dosing, 56.1, kg, 09/04/23 9:44:00 EDT, Weight Dosing Start Date: 09/04/23 Status: Ordered ALPRAZolam 0.25 mg oral tablet (20 sources) Benzodiazepine Start: 11-09-2020 End: 10-11-2024 take 1 tablet by mouth once daily as needed alprazolam 0.25 mg Tab 0.25 mg = 1 tab(s), Oral, Daily, PRN for insomnia, # 12 tab(s), Refills(s) 0, Pharmacy: [facility], 154, cm, 09/26/23 9:41:00 EDT, Height/Length Dosing, 57.6, kg, 09/26/23 9:41:00 EDT, Weight Dosing Start Date: 09/26/23 Status: Ordered Start: 07-29-2019 End: 07-29-2019 take 1 tablet by mouth three times daily Comment on above: Take 0.25 mg by [...] (1 source) Penicillin-class Antibacterial Start: 4 End: 4 take 1 tablet by mouth every twelve hours Augmentin 875 mg-125 mg Tab 1 tab(s), Oral, q12hr for 10 day(s), 20 tab(s), Refill(s) 0, [facility], 154, cm, 10/15/24 10:15:00 EST, Height/Length Dosing, 55.6, kg, 10/15/24 10:15:00 EST, Weight Dosing Start Date: 10/15/24 Stop Date: 10/25/24 Status: Ordered aspirin 81 mg chewable tablet (20 sources) Platelet Aggregation Inhibitor, Nonsteroidal Anti-inflammatory Drug Start: take 1 tablet by mouth once daily Start: 07-29-2019 take 1 tablet by albert th once daily aspirin 81 mg oral tablet = 1 tab(s), Oral, Daily, Refills(s) 0 Start Date: 01/26/21 Status: Ordered aspirin 81 MG EC tablet 1 (one) time each day at the same time Active take 1 tablet by albert th three times weekly aspirin 81 mg EC tablet Take [...] tab(s), Refills(s) 0, Pharmacy: [facility] 1986, 154, cm, 09/24/22 12:01:00 EDT, Height/Length Dosing, 56.5, kg, 09/24/22 12:01:00 EDT, Weight Dosing Start Date: 09/24/22 Stop Date: 09/29/22 Status: Ordered benzonatate 100 mg oral capsule (2 sources) Non-narcotic Antitussive Start: 10-15-2024 End: 10-25-2024 take 1 capsule by mouth three times daily benzonatate 100 mg Cap 100 mg = 1 cap(s), Oral, TID, X 10 day(s), # 30 cap(s), Refills(s) 0, Pharmacy: [facility], 154, cm, 10/15/24 10:15:00 EST, Height/Length Dosing, 55.6, kg, 10/15/24 10:15:00 EST, Weight Dosing Start Date: 10/15/24 Stop Date: 10/25/24 Status: Ordered Start: 12-17-2022 End: 12-24-2022 take 1 capsule by mouth three times daily Tessalon 100 mg Cap 100 mg = 1 cap(s), Oral, TID, X 7 day(s), # 21 cap(s), Refills(s) 0, Pharmacy: [facility], 154, cm, 12/17/22 11:54:00 EST, Height/Length Dosing, 57, kg, 12/17/22 11:54:00 EST, Weight Dosing Start Date: 12/17/22 Stop Date: 12/24/22 Status: Ordered brompheniramine maleate 0.4 mg/ml / dextromethorphan hydrobromide 2 mg/ml / pseudoephedrine hydrochloride 6 mg/ml oral solution (20 sources) alpha-Adrenergic Agonist, Uncompetitive Q-qdmnfs-V-aspartate Receptor Antagonist, Sigma-1 Agonist Start: 09-26-2023 take 5 mL by mouth four times daily for cough and congestion Bromfed DM oral syrup 5 mL, Oral, QID for cough and congestion, 200 mL, Refill(s) 0, [facility], 154, cm, 04/14/24 9:52:00 EDT, Height/Length Dosing, 56, kg, 04/14/24 9:52:00 EDT, Weight Dosing Start Date: 04/14/24 Status: Ordered cyclobenzaprine hydrochloride 5 mg oral tablet (7 sources) Muscle Relaxant Start: 01-19-2025 take 1 tablet by mouth three times daily cyclobenzaprine 5 mg Tab 5 mg = 1 tab(s), Oral, TID, # 30 tab(s), Refills(s) 1, Pharmacy: [facility] 1986, 154, cm, 01/19/25 13:51:00 EST, Height/Length Dosing, 57.2, kg, 01/19/25 13:51:00 EST, Weight Dosing Start Date: 01/19/25 Status: Ordered Quantity: 30.0 Unit: tab(s) Repeat number: 2 Indications: Other muscle spasm; Elderberry Gummies with Vitamin C and Zinc (18 sources) Start: 05-12-2024 Elderberry Gummies with Vitamin C and Zinc 1 tablet, Chewed, Daily, Refill(s) 0, Prophylaxis Start Date: 05/12/24 Status: Ordered Repeat number: 1 Start: 05-12-2024 Elderberry Gum mies with Vitamin C and Zinc 1 tablet, Chewed, Daily, Refill(s) 0 Start Date: 05/12/24 Status: Ordered Repeat number: 1 Start: 05-12-2024 Elderberry Gum mies with Vitamin C and Zinc 1 tablet, Chewed, Daily, Refill(s) 0 Start Date: 05/12/24 Status: Ordered Elderberry preparation (20 sources) Start: 10-30-2023 Elderberry 500 MG capsule 10/30/2023 Active Start: 10-30-2023 Elderberry 500 MG capsule Refill(s) 0 10/30/2023 Active Start: 10-30-2023 elderberry Ref ill(s) 0 Start Date: 10/30/23 Status: Ordered estradiol 0.1 mg/ml vaginal cream (2 sources) Estrogen Start: 12-12-2020 Estrace 0.1 mg /g Cream See Instructions, 42.5 gm, Refill(s) 0, 0.5 to 1 gm Vaginal 1-2 x per week at bed time., [facility], 155, cm, 12/12/20 12:23:00 EST, Height/Length Dosing, 58.6, kg, 12/12/20 12:23:00 EST, Weight Dosing Start Date: 12/12/20 Status: Ordered famotidine 20 mg oral tablet (2 sources) Histamine-2 Receptor Antagonist take 1 tablet by mouth twice daily famotidine (PEPCID) 20 mg tablet Take 20 mg by mouth twice daily. Active Comment on above: Take 20 mg by mouth twice daily. Fish Oils (2 sources) Start: 04-27-2019 take 1 capsule by mouth twice daily Fish Oil 1000 mg oral capsule 1,000 mg = 1 cap(s), Oral, BID, Refills(s) 0, Prophylaxis Start Date: 04/27/19 Status: Ordered fluconazole 150 mg oral tablet (5 sources) Azole Antifungal Start: 11-04-2024 take 1 tablet by mouth once Diflucan 150 mg Tab 150 mg = 1 tab(s), Oral, Once, # 1 tab(s), Refills(s) 1, Pharmacy: [facility], 154, cm, 10/15/24 10:15:00 EST, Height/Length Dosing, 55.6, kg, 10/15/24 10:15:00 EST, Weight Dosing Start Date: 11/04/24 Status: Ordered Start: 10-15-2024 take 1 tablet by mouth once Di flucan 150 mg Tab 150 mg = 1 tab(s), Oral, Once, # 1 tab(s), Refills(s) 1, Pharmacy: [facility], 154, cm, 10/15/24 10:15:00 EST, Height/Length Dosing, 55.6, kg, 10/15/24 10:15:00 EST, Weight Dosing Start Date: 10/15/24 Status: Ordered Start: 09-04-2023 Diflucan 100 m g Tab 100 mg = 1 tab(s), Oral, Daily, take once if needed and may repeat if needed, # 2 tab(s), Refills(s) 0, Pharmacy: [facility], 154, cm, 09/04/23 9:44:00 EDT, Height/Length Dosing, 56.1, kg, 09/04/23 9:44:00 EDT, Weight Dosing Start Date: 09/04/23 Status: Ordered Garlic preparation (20 sources) Non-Standardized Food Allergenic Extract Start: 09-12-2022 Garlic See Instructions, 1 tab daily OTC Start Date: 09/12/22 Status: Ordered Repeat number: 1 Start: 09-12-2022 Garlic See Ins tructions, 1 tab daily OTC Start Date: 09/12/22 Status: Ordered H-HTP 100 mg (10 sources) Start: 07-09-2024 H-HTP 100 mg H-HTP 100 mg, See Instructions, 5-HTP 100mg (Neurotransmitter Support). For Depression Start Date: 07/09/24 Status: Ordered hydrOXYzine hydrochloride 25 mg oral tablet (5 sources) Antihistamine Start: 05-03-2025 take 1 tablet by mouth four times daily hydrOXYzine hydrochloride 25 mg Tab 25 mg = 1 tab(s), Oral, QID, # 30 tab(s), Refills(s) 1, Pharmacy: [facility], 154, cm, 05/03/25 13:19:00 EDT, Height/Length Dosing, 55.5, kg, 05/03/25 13:19:00 EDT, Weight Dosing Start Date: 05/03/25 Status: Ordered Quantity: 30.0 Unit: tab(s) Repeat number: 2 Indications: Other skin changes; Anxiety disorder, unspecified; Start: 08-19-2023 take 1 tablet by albert th four times daily as needed for anxiety, then take 0.5 tablet by mouth every hour as needed for anxiety hydrOXYzine hydrochloride 50 mg oral tablet 50 mg = 1 tab(s), Oral, QID, PRN for anxiety, Can cut tab in half if needed Take 1 hr prior to bed, # 40 tab(s), Refills(s) 1, Pharmacy: [facility], 154, cm, 08/19/23 11:14:00 EDT, [...] pain, # 90 tab(s), Refills(s) 0, Pharmacy: [facility] Start Date: 07/09/19 Status: Ordered Iodine (20 sources) Start: 10-30-2023 iodine Oral, Daily, Refills(s) 0, Prophylaxis Start Date: 10/30/23 Status: Ordered Repeat number: 1 Start: 10-30-2023 iodine Refills (s) 0 Start Date: 10/30/23 Status: Ordered Repeat number: 1 Start: 10-30-2023 iodine Refills (s) 0 Start Date: 10/30/23 Status: Ordered Ivermectin (13 sources) Antiparasitic, Pediculicide Start: 04-14-2024 take 12 mg by mouth once ivermectin 12 mg, Oral, Once, Refills(s) 0 Start Date: 04/14/24 Status: Ordered Start: 03-01-2021 take 3 tablets by mouth once i vermectin 3 mg oral tablet 9 mg = 3 tab(s), Oral, Once, # 3 tab(s), Refills(s) 0, Pharmacy: [facility] 1986, 154.9, cm, 02/19/21 14:27:00 EDT, Height/Length Dosing, 57, kg, 02/19/21 14:27:00 EDT, Weight Dosing Start Date: 03/01/21 Status: Ordered ketoconazole 10 mg/ml medicated shampoo (8 sources) Azole Antifungal Start: 09-12-2022 ketoconazole topical 1% shampoo 1 christiano, Topical, q3day, 210 mL, Refill(s) 1, [facility], 154, cm, 09/12/22 10:34:00 EDT, Height/Length Dosing, 56.4, kg, 09/12/22 10:34:00 EDT, Weight Dosing Start Date: 09/12/22 Status: Ordered levoFLOXacin 750 mg oral tablet (2 sources) Quinolone Antimicrobial Start: 05-06-2024 End: 05-13-2024 take 1 tablet by mouth once daily Levaquin 750 mg Tab 750 mg = 1 tab(s), Oral, Daily, X 7 day(s), # 7 tab(s), Refills(s) 0, Pharmacy: [facility] 1985, 154, cm, 05/06/24 15:09:00 EDT, Height/Length Dosing, 55.1, kg, 05/06/24 15:22:00 EDT, Weight Dosing Start Date: 05/06/24 Stop Date: 05/13/24 Status: Ordered levothyroxine sodium 0.075 mg oral tablet (5 sources) l-Thyroxine Start: 07-29-2019 take 1 tablet by mouth once daily lidocaine 0.05 mg/mg medicated patch (7 sources) Antiarrhythmic, Amide Local Anesthetic Start: 01-06-2025 lidocaine Top 5% film Patch 1 patch(es), Topical, Daily, 30 patch(es), Refill(s) 3, apply 12 hours on and 12 hours off daily, [facility], 154, cm, 01/19/25 13:51:00 EST, Height/Length Dosing, 57.2, kg, 01/19/25 13:51:00 EST, Weight Dosing Start Date: 01/19/25 Status: Ordered losartan potassium 50 mg oral tablet (20 sources) Angiotensin 2 Receptor Vishnu Start: 10-06-2019 take 1 tablet by mouth twice daily losartan 50 mg Tab 50 mg = 1 tab(s), Oral, BID, # 60 tab(s), Refills(s) 5, Pharmacy: [facility] Start Date: 10/06/19 Status: Ordered Start: 07-29-2019 take 1 tablet by mouth once da rah Comment on above: Take 50 mg by mouth once daily. magnesium amino acid chelate (20 sources) Start: 09-04-2023 magnesium amino acids chelate Oral, Daily, Refills(s) 0, Prophylaxis Start Date: 09/04/23 Status: Ordered Repeat number: 1 Start: 09-04-2023 magnesium simms o acids chelate Refills(s) 0 Start Date: 09/04/23 Status: Ordered Repeat number: 1 Start: 09-04-2023 magnesium simms o acids chelate Refills(s) 0 Start Date: 09/04/23 Status: Ordered meclizine hydrochloride 12.5 mg oral tablet (2 sources) Antiemetic Start: 12-12-2020 take 1 tablet by mouth three times daily as needed for dizziness Antivert 12.5 mg Tab 12.5 mg = 1 tab(s), Oral, TID, PRN for dizziness, # 30 tab(s), Refills(s) 0, Pharmacy: [facility], 155, cm, 12/12/20 12:23:00 EST, Height/Length Dosing, 58.6, kg, 12/12/20 12:23:00 EST, Weight Dosing Start Date: 12/12/20 Status: Ordered methylPREDNISolone 4 mg oral tablet (5 sources) Corticosteroid Start: 05-25-2025 End: 05-31-2025 Medrol 4 mg Tab = 1 packet(s), Oral, As Directed, as directed on package labeling, X 6 day(s), # 21 tab(s), Refills(s) 0, Pharmacy: [facility], 154, cm, 05/25/25 12:04:00 EDT, Height/Length Dosing, 54.1, kg, 05/25/25 12:04:00 EDT, Weight Dosing Start Date: 05/25/25 Stop Date: 05/31/25 Status: Ordered Quantity: 21.0 Unit: tab(s) Repeat number: 1 Indications: Allergy, unspecified, initial encounter; Start: 01-19-2025 End: 01-25-2025 Medrol 4 mg Tab = 1 packet(s ), Oral, As Directed, as directed on package labeling, X 6 day(s), # 21 tab(s), Refills(s) 0, Pharmacy: [facility], 154, cm, 01/19/25 13:51:00 EST, Height/Length Dosing, 57.2, kg, 01/19/25 13:51:00 EST, Weight Dosing Start Date: 01/19/25 Stop Date: 01/25/25 Status: Ordered Start: 12-14-2024 End: 12-20-2024 Medrol Dosepack 4 mg Tab = 1 packet(s), Oral, As Directed, as directed on package labeling, X 6 day(s), # 21 tab(s), Refills(s) 0, Pharmacy: [facility], 154, cm, 12/14/24 13:12:00 EST, Height/Length Dosing, 56, kg, 12/14/24 13:12:00 EST, Weight Dosing Start Date: 12/14/24 Stop Date: 12/20/24 Status: Ordered Start: 04-14-2024 End: 04-20-2024 Medrol 4 mg Tab = 1 packet(s ), Oral, As Directed, as directed on package labeling, X 6 day(s), # 21 tab(s), Refills(s) 0, Pharmacy: [facility], 154, cm, 04/14/24 9:52:00 EDT, Height/Length Dosing, 56, kg, 04/14/24 9:52:00 EDT, Weight Dosing Start Date: 04/14/24 Stop Date: 04/20/24 Status: Ordered Start: 09-17-2022 End: 09-23-2022 Medrol 4 mg Tab = 1 packet(s ), Oral, As Directed, as directed on package labeling, X 6 day(s), # 21 tab(s), Refills(s) 0, Pharmacy: [facility], 154, cm, 09/12/22 10:34:00 EDT, Height/Length Dosing, 56.4, kg, 09/12/22 10:34:00 EDT, Weight Dosing Start Date: 09/17/22 Stop Date: 09/23/22 Status: Ordered 24 hr metoprolol succinate 50 mg extended release oral tablet (20 sources) beta-Adrenergic Vishnu Start: 07-29-2019 take 1 tablet by mouth once daily take 1 tablet by albert th every twenty-four hours in the morning metoprolol succinate XL (Toprol-XL) 50 M G 24 hr tablet Take 50 mg by mouth in the morning. Active Comment on above: Take 50 mg by mouth once daily. montelukast 10 mg oral tablet (5 sources) Leukotriene Receptor Antagonist Start: 5 take 1 tablet by mouth once daily in the evening Singulair 10 mg Tab 10 mg = 1 tab(s), Oral, qPM, # 30 tab(s), Refills(s) 11, Pharmacy: [facility], 154, cm, 12/29/24 11:45:00 EST, Height/Length Dosing, 56.8, kg, 12/29/24 11:45:00 EST, Weight Dosing Start Date: 12/29/24 Status: Ordered mupirocin 0.02 mg/mg topical ointment (15 sources) RNA Synthetase Inhibitor Antibacterial Start: 4 mupirocin Top 2% Oint 1 christiano, Topical, BID Diabetic, 30 gram, Refill(s) 0, [facility], 154, cm, 07/09/24 9:47:00 EDT, Height/Length Dosing, 54.2, kg, 07/09/24 9:47:00 EDT, Weight Dosing Start Date: 07/09/24 Status: Ordered Start: 10-30-2023 mupirocin Top 2% Oint 1 christiano, Topical, TID, 30 gram, Refill(s) 1, [facility], 154, cm, 10/30/23 9:48:00 EST, Height/Length Dosing, 57.8, kg, 10/30/23 9:48:00 EST, Weight Dosing Start Date: 10/30/23 Status: Ordered Start: 03-22-2021 mupirocin Top 2% Oint 1 christiano, Topical, TID nasal sore., 15 gm, Refill(s) 0, [facility], 154.9, cm, 03/22/21 9:27:00 EDT, Height/Length Dosing, 57.7, kg, 03/22/21 9:27:00 EDT, Weight Dosing Start Date: 03/22/21 Status: Ordered NAC Detox Regulators (20 sources) Start: 01-15-2024 take 500 ug by mouth once daily NAC Detox Regulators NAC Detox Regulators, Oral, Daily, Selenium 500 mcg, Molybdenum 50 mcg, and N-Acetylcysteine 600 mg Start Date: 01/15/24 Status: Ordered Repeat number: 1 Start: 01-15-2024 take 500 ug by mouth once daily NAC Detox Regulators NAC Detox Regulators, Oral, Daily, Selenium 500 mcg, Molybdenum 50 mcg, and N-Acetylcysteine 600 mg Start Date: 01/15/24 Status: Ordered naproxen 500 mg oral tablet (1 source) Nonsteroidal Anti-inflammatory Drug Start: 01-06-2025 take 1 tablet by mouth twice daily as needed for pain naproxen 500 mg Tab 500 mg = 1 tab(s), Oral, BID, PRN for pain, # 20 tab(s), Refills(s) 0, Pharmacy: [facility], 154, cm, 01/06/25 7:16:00 EST, Height/Length Dosing, 57.2, kg, 01/06/25 7:16:00 EST, Weight Dosing Start Date: 01/06/25 Status: Ordered Nitric Oxide Foundation (20 sources) Start: 01-15-2024 Nitric Oxide Foundation Nitric Oxide Foundation, 2 tab(s), Oral, Daily, Vitamin C 290 mg, Thiamin 90mg, B12 200 mcg, Magnesium 75 mg, Potassium 189 mg, 500mg (postassium nitrate, beet root extract and fermented beet root powder). For Circulatory Support Start Date: 01/15/24 Status: Ordered Repeat number: 1 Start: 01-15-2024 Nitric Oxide [facility] Nitric Oxide [facility], 2 tab(s), Oral, Daily, Vitamin C 290 mg, Thiamin 90mg, B12 200 mcg, Magnesium 75 mg, Potassium 189 mg, 500mg (postassium nitrate, beet root extract and fermented beet root powder). For Circulatory Support Start Date: 01/15/24 Status: Ordered nitroglycerin 0.4 mg sublingual tablet (20 sources) Nitrate Vasodilator Start: 07-29-2019 omeprazole 40 mg delayed release oral capsule (2 sources) Proton Pump Inhibitor Start: 02-28-2020 take 1 capsule by mouth once daily omeprazole 40 mg Cap-DR 40 mg = 1 cap(s), Oral, Daily, # 30 cap(s), Refills(s) 2, Pharmacy: [facility], 155.2, cm, 02/07/20 13:54:00 EDT, Height/Length Measured, 60.7, kg, 02/07/20 13:54:00 EDT, Weight Measured Start Date: 02/28/20 Status: Ordered oxyCODONE hydrochloride 5 mg oral capsule (1 source) Opioid Agonist Start: 01-06-2025 End: 01-09-2025 oxyCODONE 5 mg Cap 5 mg = 1 cap(s), Oral, q6hr, PRN Pain 8-10, X 3 day(s), # 12 cap(s), Refills(s) 0, Pharmacy: [facility], 154, cm, 01/06/25 7:16:00 EST, Height/Length Dosing, 57.2, kg, 01/06/25 7:16:00 EST, Weight Dosing Start Date: 01/06/25 Stop Date: 01/09/25 Status: Ordered Oxytocin-Sodium Chloride 15-0.9 UT/250ML-% solution (18 sources) Oxytocin-Sodium Chloride 15-0.9 UT/250ML-% solution Infuse into a venous catheter Active Oxytocin-Sodium Chloride 15-0.9 UT/250ML-% solution Infuse into a venous catheter. Active predniSONE 10 mg oral tablet (2 sources) Start: 10-15-2024 predniSONE 10 mg Tab See Instructions, - Oral As Directed 4 tabs x 2 days, 3 tabs 2 days, 2 tabs x 2 days then 1 tab x 2 days with food, # 16 tab(s), Refills(s) 0, Pharmacy: [facility], 154, cm, 10/15/24 10:15:00 EST, Height/Length Dosing, 55.6, kg, 10/15/24 10:15:00 EST, Weight Dosing Start Date: 10/15/24 Status: Ordered Start: 12-17-2022 End: 12-22-2022 take 2 tablets by mouth twice daily predniSONE 20 mg Tab 40 mg = 2 tab(s), Oral, BID, X 5 day(s), # 20 tab(s), Refills(s) 0, Pharmacy: [facility], 154, cm, 12/17/22 11:54:00 EST, Height/Length Dosing, 57, kg, 12/17/22 11:54:00 EST, Weight Dosing Start Date: 12/17/22 Stop Date: 12/22/22 Status: Ordered progesterone 100 mg vaginal insert (18 sources) Progesterone progesterone (Endometrin) 100 MG vaginal insert Insert 100 mg into the vagina in the morning and 100 mg before bedtime. Active Promethazine (6 sources) Phenothiazine Start: 09-17-20 take 5 mL by mouth every six hours for cough Promethazine DM oral syrup 5 mL, Oral, q6hr for cough, 120 mL, Refill(s) 0, [facility], 154, cm, 09/12/22 10:34:00 EDT, Height/Length Dosing, 56.4, kg, 09/12/22 10:34:00 EDT, Weight Dosing Start Date: 09/17/22 Status: Ordered raNITIdine 150 mg oral tablet (5 sources) Histamine-2 Receptor Antagonist Start: 07-29-20 19 take 1 tablet by mouth twice daily sertraline 50 mg oral tablet (20 sources) Serotonin Reuptake Inhibitor Start: 10-10-20 21 take 1 tablet by mouth once daily sertraline (Zoloft) 50 MG tablet Take 50 mg by mouth Daily 06/09/2024 Active Start: 07-29-2019 take 1 tablet by albert th once daily End: 06-30-2025 sertraline (Zoloft) 100 MG t ablet Take 50 mg by mouth in the morning. 06/30/2025 Discontinued (Duplicate order) Comment on above: Take 100 mg by mouth once daily. sodium chloride 0.111 meq/ml nasal spray (10 sources) Start: [place] Saline Mist 0.65% nasal spray 2 spray(s), Nasal, QID, 1 EA, Refill(s) 1, [facility], 154, cm, 01/25/22 11:10:00 EST, Height/Length Dosing, 57.2, kg, 01/25/22 11:10:00 EST, Weight Dosing Start Date: 01/25/22 Status: Ordered spacer (20 sources) Start: spacer spacer, See Instructions, 1 EA, 1, please dispense an adult mdi spacer chamber, [facility], Supply, 154, cm, 09/04/23 9:44:00 EDT, Height/Length Dosing, 56.1, kg, 09/04/23 9:44:00 EDT, Weight Dosing Start Date: 09/04/23 Status: Ordered thyroid ([facility]) 30 mg oral tablet (20 sources) Start: End: take 1 tablet by mouth once daily Martell Thyroid 30 mg Tab 30 mg = 1 tab(s), Oral, Daily, no Generic substitutions please -, X 90 day(s), # 90 tab(s), Refills(s) 3, Pharmacy: [facility], 154, cm, 10/15/24 10:15:00 EST, Height/Length Dosing, 55.6, kg, 10/15/24 10:15:00 EST, Weight Dosing Start Date: 10/15/24 Stop Date: 10/10/25 Status: Ordered Quantity: 90.0 Unit: tab(s) Repeat number: 4 Indications: Autoimmune thyroiditis; Hypothyroidism, unspecified; Comment on above: Take 30 mg by mouth once daily. triamcinolone acetonide 1 mg/ml topical cream (4 sources) Corticosteroid Start: triamcinolone Top 0.1% Crm 15 gram 1 christiano, Topical, TID, 30 gram, Refill(s) 0, [facility], [facility], cm, 05/03/25 13:19:00 EDT, Height/Length Dosing, 55.5, kg, 05/03/25 13:19:00 EDT, Weight Dosing Start Date: 05/03/25 Status: Ordered Quantity: 30.0 Unit: g Repeat number: 1 Indications: Other skin changes; Turmeric Curcumin Oral Capsule (2 sources) Start: 019 take 1 capsule by mouth once daily Turmeric Curcumin Oral Capsule Turmeric Curcumin Oral Capsule, 1 tab, Oral, Daily Start Date: 04/27/19 Status: Ordered valsartan 160 mg oral tablet (20 sources) Angiotensin 2 Receptor Vishnu Start: 023 End: 025 take 1 tablet by mouth once daily valsartan 160 mg Tab 160 mg = 1 tab(s), Oral, Daily, Refills(s) 0, High blood pressure Start Date: 06/29/23 Status: Ordered Repeat number: 1 Ventolin HFA 90 mcg/inh Aerosol-Adpt (20 sources) Start: 024 take 2 puff(s) by inhalation four times daily for wheezing Ventolin HFA 90 mcg/inh Aerosol-Adpt 2 puff(s), Inhalation, QID for wheezing, 18 gram, Refill(s) 1, [facility], [facility], cm, 10/15/24 10:15:00 EST, Height/Length Dosing, 55.6, kg, 10/15/24 10:15:00 EST, Weight Dosing Start Date: 10/15/24 Status: Ordered Start: 12-17-2022 take 2 puff(s) by in halation four times daily for wheezing Ventolin HFA 90 mcg/inh Aerosol-Adpt 2 puff(s), Inhalation, QID for wheezing, 18 gram, Refill(s) 0, [facility], [facility], cm, 12/17/22 11:54:00 EST, Height/Length Dosing, 57, kg, 12/17/22 11:54:00 EST, Weight Dosing Start Date: 12/17/22 Status: Ordered Vitamin C 500 mg oral tablet, chewable (20 sources) Start: 04-27-2019 take 1 tablet by mouth once daily Vitamin C 500 mg oral tablet, chewable 500 mg = 1 tab(s), Chewed, Daily, Refills(s) 0, Prophylaxis Start Date: 04/27/19 Status: Ordered Repeat number: 1 Start: 04-27-2019 take 1 tablet by albert th once daily Vitamin C 500 mg oral tablet, chewable 500 mg = 1 tab(s), Chewed, Daily, Refills(s) 0, Prophylaxis Start Date: 04/27/19 Status: Ordered vitamin K2 (20 sources) Start: 09-04-2023 take 100 ug by mouth once daily Vitamin K2 100 mcg, Oral, Daily, Refill(s) 0, Prophylaxis Start Date: 09/04/23 Status: Ordered Repeat number: 1 Start: 09-04-2023 Vitamin K2 Ref ill(s) 0 Start Date: 09/04/23 Status: Ordered Repeat number: 1 Start: 09-04-2023 Vitamin K2 Ref ill(s) 0 Start Date: 09/04/23 Status: Ordered zinc acetate 50 mg oral capsule (20 sources) Start: 09-12-2022 take 1 capsule by mouth once daily zinc acetate 50 mg oral capsule 50 mg = 1 cap(s), Oral, Daily, on an empty stomach 1 hour before or 2 hours after eating, Prophylaxis Start Date: 09/12/22 Status: Ordered Repeat number: 1 Completed/Discontinued Medications Medication Drug Class(es) Dates Sig (Normalized) Sig (Original) atorvastatin 10 mg oral tablet (8 sources) HMG-CoA Reductase Inhibitor Start: 10-11-2021 take 1 tablet by mouth at bedtime Atorvastatin Calcium 10 MG Oral Tablet TAKE 1 TABLET AT BEDTIME. Quantity: 90 Refills: 3 Ordered: 11-Oct-2021 Jay Jay Pisano MD Start : 11-Oct-2021 Active Start: 07-29-2019 take 1 tablet by mouth once da rah Garlique 400 MG Oral Tablet Delayed Release (1 source) take 1 tablet by mouth once daily Garlique 400 MG Oral Tablet Delayed Release TAKE 1 TABLET DAILY. Quantity: 0 Refills: 0 Ordered: 16-Jul-2022 DO Active rosuvastatin calcium 10 mg oral tablet (4 sources) HMG-CoA Reductase Inhibitor Start: 07-15-20 End: 10-11-20 24 take 1 tablet by mouth at bedtime Rosuvastatin Calcium 10 MG Oral Tablet TAKE 1 TABLET AT BEDTIME. Quantity: 90 Refills: 3 Ordered: 15-Jul-2023 Jay Jay Pisano MD Start : 15-Jul-2023 Active new serratiopeptidase (20 sources) Start: 01-15-20 Serrapeptase 40,000 SPU Serrapeptase [...] / vitamin e 5 unt oral capsule (20 sources) Start: 07-15-20 take 1 capsule by mouth once daily Co Q 10 100 MG Oral Capsule TAKE 1 CAPSULE Daily Quantity: 90 Refills: 3 Ordered: 15-Jul-2023 Jay Jay Pisano MD Start : 15-Jul-2023 Active take 1 capsule by mouth in the m [facility]ning coenzyme Q-10 100 MG capsule Take 100 mg by mouth in the morning. Active Vitamin D 50,000 intl units (1.25 mg) oral capsule (2 sources) Start: 09-17-2022 End: 12-16-2022 take 1 capsule by mouth every week Vitamin D 50,000 intl units (1.25 mg) oral capsule 50,000 International_Unit = 1 cap(s), Oral, qWeek, X 90 day(s), # 13 cap(s), Refills(s) 0, Pharmacy: [facility], 154, cm, 09/12/22 10:34:00 EDT, [...] Hernia of anterior abdominal wall Resolved : 04-27-2010-08-2019 Episodic Abdominal pain (19 sources) Right lower quadrant pain; Translations: [Abdominal pain] Onset: 01-19-20 Resolved : 04-27-2004-28-2019 Episodic Acute bronchitis (2 sources) Acute infective bronchitis; Translations: [Acute bronchitis due to other specified organisms] Onset: 12-17-19 Episodic Allergic reactions (13 sources) Allergic disposition; Translations: [Allergy, unspecified, initial encounter] Onset: 12-29-19 Episodic Anal and rectal conditions (1 source) Rectal polyp 05-23-2025 Episodic Anxiety disorders (20 sources) Anxiety; Translations: [Anxiety disorder] Onset: 06-04-2002-07-2020 Chronic Cancer of breast (20 sources) Intraductal carcinoma in situ of breast; Translations: [Malignant neoplasm of upper-inner quadrant of female breast] Onset: 12-17-1901-19-2021 Chronic Cancer of breast (20 sources) History of malignant neoplasm of breast; Translations: [Personal history of malignant neoplasm of breast] Onset: 12-11-1901-17-2023 Episodic Cataract (18 sources) Bilateral age-related nuclear cataracts; Translations: [Age-related nuclear cataract, bilateral] Onset: 11-10-2011-10-2023 Chronic Chronic obstructive pulmonary disease and bronchiectasis (20 sources) Bronchitis; Translations: [Bronchitis, not specified as acute or chronic] Onset: 09-26-20 Episodic Coronary atherosclerosis and other heart disease (20 sources) Coronary arteriosclerosis; Translations: [Coronary atherosclerosis of unspecified type of vessel, [place] or graft] Onset: 06-04-2002-07-2020 Chronic Comment on [...] [Dysuria] Onset: 10-30-20 Episodic Headache; including migraine (20 sources) Migraine without aura, not refractory ; Translations: [Migraine without aura, not intractable, without status migrainosus] Onset: 01-15-20 Chronic Heart valve disorders (11 sources) Mitral valve regurgitation; Translations: [Mitral valve disorders] Onset: 10-09-2010-11-2024 Chronic Comment on above: mild by echocardiogr am 2018; Inflammation; infection of eye (except that caused by tuberculosis or sexually transmitteddisease) (18 sources) Keratoconjunctivitis sicca; Translations: [Keratoconjunctivitis sicca, not [...] (20 sources) Depression; Translations: [Depressive disorder] Onset: 06-04-2008-17-2017 Chronic Mycoses (18 sources) Candidal vulvovaginitis; Translations: [Acute candidiasis of vulva and vagina] Onset: 05-26-20 Episodic Neoplasms of unspecified nature or uncertain behavior (14 sources) Neoplasm of uncertain behavior of right breast; Translations: [Neoplasm of uncertain behavior of skin] 01-09-2021 Episodic Nonmalignant breast conditions (20 sources) Fibrocystic disease of breast; Translations: [Diffuse cystic mastopathy of right breast] Onset: 01-28-20 Resolved : 04-27-202019 Chronic Nonspecific chest pain (8 sources) Chest pain; Translations: [Chest pain, unspecified] 02-03-2025 Episodic Nutritional deficiencies (20 sources) Vitamin D deficiency; Translations: [Vitamin D deficiency, unspecified] Onset: 12-17-1902-07-2020 Chronic Osteoarthritis (20 sources) Degenerative joint disease involving multiple joints; Translations: [Secondary multiple arthritis] Onset: 04-09-2004-09-2021 Chronic Osteoporosis (20 sources) Osteoporosis; Translations: [Postmenopausal osteoporosis] Onset: 04-09-20 21 02-07-2020 Chronic Other aftercare (2 sources) Postoperative visit; Translations: [Encounter for other specified surgical aftercare] 11-17-2024 Episodic Other and unspecified benign neoplasm (20 sources) History of polyp of colon; Translations: [Personal history of colonic polyps] Onset: 04-14-20 Episodic Other and unspecified benign neoplasm (1 source) Polyp of colon; Translations: [Polyp of colon] Onset: 11-12-20 Episodic Other connective tissue disease (4 sources) Pain in right foot; Translations: [Pain in right foot] 11-18-2024 Episodic Other connective tissue disease (4 sources) Pain in left foot; Translations: [Pain in left foot] 11-18-2024 Episodic Other connective tissue disease (9 sources) Spasm; Translations: [Other muscle spasm] Onset: 01-19-20 Episodic Other ear and sense organ disorders (18 sources) Sensorineural hearing loss, bilateral; Translations: [Sensorineural hearing loss, bilateral] Onset: 06-04-2006-04-2023 Chronic Other ear and sense organ disorders (18 sources) Bilateral hearing loss; Translations: [Sensorineural hearing [...] Onset: 10-30-20 Chronic Other female genital disorders (20 sources) Vaginal bleeding 10-30-2023 Chronic Other female genital disorders (18 sources) Abnormal vaginal bleeding; Translations: [Abnormal uterine and vaginal bleeding, unspecified] Onset: 06-04-2006-04-2023 Chronic Other female genital disorders (1 source) Lesion of endometrium; Translations: [Other specified conditions associated with female genital organs and menstrual cycle] 08-25-2024 Episodic Other fractures (2 sources) Closed fracture of multiple ribs; Translations: [Multiple fractures of ribs, unspecified side, initial encounter for closed fracture] Onset: 01-06-20 Episodic Other fractures (8 sources) Fracture of multiple ribs 01-19-2025 Episod ic Other gastrointestinal disorders (12 sources) Hyperplastic polyp of intestine 11-12-2024 Episodic Other inflammatory condition of skin (4 sources) Itching 05-03-2025 Episodic Other inflammatory condition of skin (1 source) Pruritus of skin; Translations: [Pruritus, unspecified] Onset: 05-03-20 Episodic Other injuries and conditions due to external causes (10 sources) Injury of coccyx 08-10-2021 Episodic Other lower respiratory disease (11 sources) Cough; Translations: [Cough, unspecified] Onset: 08-19-20 Episodic Other lower respiratory disease (1 source) Chronic cough; Translations: [Chronic cough] Onset: 01-15-20 Episodic Other lower respiratory disease (5 sources) Persistent cough 01-15-2024 Episodic Other lower respiratory disease (1 source) Pleuritic pain; Translations: [Pleurodynia] Onset: 01-06-20 Episodic Other lower respiratory disease (4 sources) Dyspnea 03-22-2025 Episodic Other nervous system disorders (1 source) Anesthesia of skin; Translations: [Anesthesia of skin] Onset: 01-15-20 Episodic Other nervous system disorders (20 sources) Numbness of hand 01-15-2024 Episodic Other non-traumatic joint disorders (1 source) Pain of left shoulder joint; Translations: [Pain in left shoulder] Onset: 02-06-20 Episodic Other screening for suspected conditions (not mental disorders or infectious disease) (19 sources) Endometrium thickened; Translations: [Abnormal findings on diagnostic imaging of other specified body structures] Onset: 07-05-20 23 07-05-2023 Chronic Other screening for suspected conditions (not mental disorders or infectious disease) (20 sources) Thallium stress test abnormal; Translations: [Other nonspecific abnormal results of function study of cardiovascular system] Onset: 04-01-20 Resolved : 04-27-2004-28-2019 Episodic Other skin disorders (1 source) Non-scarring alopecia; Translations: [Nonscarring hair loss, unspecified] Onset: 09-12-20 Episodic Other upper respiratory disease (20 sources) Allergic rhinitis; Translations: [Allergic rhinitis, unspecified] Onset: 06-04-2010-23-2020 Chronic Other upper respiratory disease (1 source) Disorder of the nose; Translations: [Abscess, furuncle and carbuncle of nose] Onset: 10-30-20 Episodic Other upper respiratory disease (20 sources) Ulcer of nasal septum 10-30-2023 Episodic Other upper respiratory infections (20 sources) Chronic sinusitis; Translations: [Sinusitis] Onset: 06-04-2002-19-2021 Chronic Otitis media and related conditions (20 sources) Otitis media; Translations: [Otitis media, unspecified, left ear] Onset: 05-12-20 Episodic Ovarian cyst (1 source) Complex ovarian cyst; Translations: [Other ovarian cyst, unspecified side] 08-18-2025 Episodic Pneumonia (except that caused by tuberculosis or sexually transmitted disease) (20 sources) Pneumonia; Translations: [Pneumonia, unspecified organism] Onset: 05-06-20 Episodic Residual codes; unclassified (11 sources) Postmenopausal state; Translations: [Asymptomatic menopausal state] Resolved : 04-27-2004-28-2019 Episodic Residual codes; unclassified (10 sources) Sleep disorder 08-17-2017 Episodic Residual codes; unclassified (2 sources) Patient encounter status; Translations: [Other specified health status] Onset: 09-26-20 Episodic Residual codes; unclassified (20 sources) Insomnia 09-26-2023 Episodic Residual codes; unclassified (1 source) Amnesia; Translations: [Other amnesia] Onset: 01-15-20 Episodic Residual codes; unclassified (20 sources) Poor short-term memory 01-15-2024 Episodic Residual codes; unclassified (2 sources) Other general symptoms and signs; Translations: [Clinical finding (finding)] Onset: 04-14-20 Episodic Residual codes; unclassified (2 sources) Never smoked tobacco; Translations: [Other specified health status] Onset: 10-11-2010-11-2024 Episodic Residual codes; unclassified (1 source) Family history of malignant neoplasm of digestive organ; Translations: [Family history of malignant neoplasm of digestive organs] Onset: 11-12-20 Episodic Residual codes; unclassified (12 sources) Family history of cancer of colon 11-12-2024 Episodic Skin and subcutaneous tissue infections (16 sources) Impetigo; Translations: [Impetigo, unspecified] Onset: 07-09-20 Episodic Spondylosis; intervertebral disc disorders; other back problems (20 sources) Degeneration of cervical intervertebral disc; Translations: [Other cervical disc degeneration, unspecified cervical region] Onset: 02-06-20 Chronic Superficial injury; contusion (1 source) Abrasion, elbow area; Translations: [Abrasion of unspecified elbow, initial encounter] Onset: 01-06-20 Episodic Thyroid disorders (20 sources) Hypothyroidism; Translations: [Unspecified acquired hypothyroidism] Onset: 06-04-2002-07-2020 Chronic Unclassified (2 sources) Encounter for screening for cardiovascular disorders / Z13.6(ICD-9) Onset: 09-08-20 Unclassified (20 sources) Patient encounter status Resolved : 04-27-2004-28-2019 Unclassified (3 sources) Body mass index 20-24 - normal 01-17-2023 Unclassified (20 sources) Pain of left shoulder region 02-06-2024 Unclassified (19 sources) Varicose vein of calf 05-12-2024 Varicose veins of lower extremity (1 source) Varicose veins of lower extremity; Translations: [Asymptomatic varicose veins of unspecified lower extremity] Onset: 05-12-20 Episodic Past or Other Problems Problem Classification Problem Date Documented Date Episodic/Chronic Cardiac dysrhythmias (10 sources) Palpitations Resolved: 04-27-2019 04-28-2019 Episodic Conditions associated with dizziness or vertigo (20 sources) Vertigo; Translations: [Dizziness and giddiness] Onset: 06-04-2023 12-12-2020 Episodic Deficiency and other anemia (10 sources) Anemia Resolved: 05-25-2019 10-08-2019 Episodic Deficiency and other anemia (10 sources) Iron deficiency anemia secondary to inadequate dietary iron intake Resolved: 04-27-2019 10-08-2019 Episodic Diseases of mouth; excluding dental (20 sources) Xerostomia; Translations: [Dry mouth, unspecified] Onset: 04-09-2021 04-09-2021 Episodic E Codes: Fall (19 sources) Fall; Translations: [Unspecified fall, initial encounter] [...] 04-27-2019 04-28-2019 Episodic Other connective tissue disease (20 sources) Pain of bilateral hands; Translations: [Pain in right hand] Onset: 04-09-2021 04-09-2021 Episodic Other endocrine disorders (20 sources) Disorder of endocrine system; Translations: [Endocrine disorder, unspecified] Onset: 06-04-2023 02-07-2020 Episodic Other eye disorders (10 sources) Dry eyes Resolved: 04-27-2019 10-08-2019 Episodic Other eye disorders (20 sources) Tear film insufficiency; Translations: [Dry eye syndrome of bilateral lacrimal glands] Onset: 04-09-2021 04-09-2021 Episodic Other hematologic conditions (20 sources) ESR raised; Translations: [Elevated erythrocyte sedimentation rate] Onset: 04-09-2021 04-09-2021 Episodic Other nervous system disorders (20 sources) Paresthesia of hand ; Translations: [Anesthesia of skin] Onset: 04-09-2021 10-23-2020 Episodic Other nervous system disorders (20 sources) Paresthesia of foot ; Translations: [Anesthesia of skin] Onset: 04-09-2021 04-09-2021 Episodic Other non-traumatic joint disorders (20 sources) Joint pain; Translations: [Pain in unspecified joint] Onset: 06-04-2023 11-09-2020 Episodic Other skin disorders (20 sources) Loss of hair; Translations: [Nonscarring hair [...] adult] Onset: 09-12-2022 Episodic Residual codes; unclassified (4 sources) History of chest pain; Translations: [Personal history of other specified diseases] Resolved: 07-16-2022 Episodic Residual codes; unclassified (2 sources) Body mass index (BMI) 23.0-23.9, adult; Translations: [Body mass index (BMI) 23.0-23.9, adult] Onset: 10-11-2024 Episodic Residual codes; unclassified (2 sources) Other specified health status; Translations: [Other specified health status] Onset: 10-11-2024 Episodic Spondylosis; intervertebral disc disorders; other back [...] (1 source) Onset: 10-11-2024 10-11-2024 Viral infection (20 sources) Viral disease; Translations: [Viral infection, unspecified] Onset: 06-04-2023 Episodic Results Test Name Value Interpretation Reference Range Facility [facility] 06-23-2025 L - -------- Specimen: [id number] Received: 06/23/25 Status: KARLO Gonsalvesheather Num: [id number] Spec Type: Surgical Subm Dr: Edgar Arellano Jr, Tissues: A BREAST CORE NO CALCS (RIGHT BREAST) Procedures: Tamara FLOERS/Megan L4 -------- Age/ Patient Sex Location Account Attending Physician -------- Kermit Rosen 75/F BHARATI [id number] Bravo Dasilva DO -------- SPEC NUM: [id number] RECD: 06/23/25 STATUS: KARLO MOSLEY NUM: [id number] LAURA: 06/23/25-[address]: Edgar Arellano Jr, DO ENTERED: 06/23/25-1402 [facility] DR: Bravo Dasilva DO SPEC TYPE: Surgical DEPT: S ENTERED BY: [id number] RECV BY: [id number] ORDERED: HE/4, Gross/Micro L4 ORDERED: HE/4, Gross/Micro L4 Pathological Diagnosis Right breast, mass/tissue at 10:00, 6 cm FN, ultrasound-guided core needle biopsy: - Benign breast tissue and fibroadipose tissue. - No evidence of malignancy identified. - See Comment. Comment: Clinical and radiologic correlation is required in order to ensure that the target lesion has been sampled. Clinical Information Right breast mass 10:00, 6 cm from nipple Gross Description Received in formalin labeled with the patients name, date of , and R breast are 4 pale berry to yellow gibson, delicate needle core biopsy segments, 1.3-2 cm in length with detached fragments of fibrofatty tissue, 1.5 x 0.7 x 0.2 cm in aggregate. The cores are entirely submitted in Cassette A1 with the fragmented fibrofatty tissue filtered, and entirely submitted in Cassette A2.. Fixation time: Time tissue removed from patient: 1336 Time specimen placed in formalin: 1339 Cold ischemic time: 3 minutes -------- Specimen: [id number] Received: 06/23/25 Status: KARLO Gonsalvesheather Num: [id number] Spec Type: Surgical Subm Dr: Edgar Arellano Jr, DO Tissues: A BREAST CORE NO CALCS (RIGHT BREAST) Procedures: HE/4, Gross/Micro L4 -------- Patient: Kermit Rosen [id number] (Continued) -------- Specimen: [id number] Received: 06/23/25 (Continued) Gross Description (Continued) Signed (signature on file) Cholo Flood MD 06/24/25 1134 -------- Specimen: [id number] Received: 06/23/25 Status: KARLO Mosley Num: [id number] Spec Type: Surgical Subm Dr: Edgar Arellano Jr, DO Tissues: A BREAST CORE NO CALCS (RIGHT BREAST) Procedures: CHANDRA/Daniel, Tamara/Megan L4 -------- Patient: Kermit Rosen [id number] (Continued) -------- Specimen: [id number] Received: 06/23/25 (Continued) Gross Description (Continued) Total fixation time: 6 hours and 30 minutes (2, ns, [id number] A) Vanessa Microscopic Description Microscopic examination is performed. CPT Codes 93247 -------- -------- Specimen: [id number] Received: 06/23/25 Status: KARLO Mosley Num: [id number] Spec Type: Surgical Subm Dr: Edgar Arellano Jr, DO Tissues: A BREAST CORE NO CALCS (RIGHT BREAST) Procedures: CHANDRA/Daniel, Gross/Micro L4 -------- Patient: Kermit Rosen [id number] (Continued) -------- Signed (signature on file) Cholo Flood MD 06/24/25 1134 Normal [facility] US biopsy RT 1st lesion guid on 06-23-2025 US biopsy [place] 1st [place] [address] Ultrasound Report Signed with Addenda Patient: Kermit Rosen MR#: [id number] : 1950 Acct:[id number] Age/Sex: 75 / F ADM Date: 06/23/25 Loc: [facility] Room: Type: [facility] Attending Dr: Bravo Dasilva DO Ordering Provider: Bravo Dasilva DO Date of Service: 06/23/25 US/US biopsy RT 1st lesion guid: N63.11 ([id number]) MM/MM post biopsy RT w/CAD: N63.11 Copies to: Bravo Dasilva DO ADDENDUM 1 Addendum for pathology correlation. [...] Jr., D.OJuanita 06/28/2025 2:43 PM Dictation Location: [place] [address] Addendum Dictated By: Edgar Arellano Jr, DO Addendum Signed By: 07/29/25 1443 Addendum Cosigned By: DD/ TD/TT: 06/28/25 ULTRASOUND [...] of the right breast was performed by applied technologist . Additional scanning of the right axilla demonstrates no suspicious lymph nodes. The patient's overlying skin was anesthetized with 1% lidocaine. The deeper soft tissues up to and around the mass were anesthetized with lidocaine mixed with epinephrine. Following this, multiple core biopsies of the right breast mass were performed using a 12-gauge Flytivity vacuum-assisted core biopsy needle under ultrasound guidance. [...] migration. US/US biopsy RT 1st lesion guid IMPRESSION: STATUS POST ULTRASOUND GUIDED VACUUM-ASSISTED CORE BIOPSIES OF THE RIGHT BREAST. RESULT CODE: NL Impression dictated by: Edgar Arellano Jr., D.OJuanita 06/23/2025 1:55 PM Dictation Location: [facility] Tech: Mansi Villanueva Transcribed By: WHITNEY 06/23/25 1355 Dictated By: Edgar Arellano Jr, DO 06/23/25 1319 Signed By: 06/23/25 1355 Normal [facility] MM diagnostic mammo RT w/CAD on 06-14-2025 MM diagnostic mammo RT w/CAD [facility] [place] [address] Ultrasound Report Signed Patient: Kermit Rosen MR#: [id number] : 1950 Acct:[id number] Age/Sex: 75 / F ADM Date: 06/14/25 Loc: [place] Room: Type: [facility] Attending Dr: Ryley Marinelli DO Ordering Provider: Ryley Marinelli Date of Service: 06/14/25 MM/MM diagnostic mammo RT w/CAD: R92.8 ([id number]) US/US breast RT limited: R92.8 Copies to: Ryley Wallo RIGHT Diagnostic Full Field digital mammogram with [...] Meme CardozaLou Wilson Transcribed By: WHITNEY 06/14/25 6416 Dictated By: Jerardo Munoz DO 06/14/25 1615 Signed By: 06/14/25 1623 Normal [facility] Ambulatory Visit Summaryon 0 05-25-2025 Ambulatory Visit Summary Ambulatory Visit Summary KERMIT ROSEN :1950 Visit Date:05/25/2025 Ambulatory Visit Instructions Your Diagnosis Allergic reaction, Allergic reaction YOSELIN positive Your Care Team Attending Physician - ZHOU FONTANEZ Primary Care Physician - ZHOU FONTANEZ This Is Your Medications List Non-Formulary Medication (NAC Detox Regulators) Non-Formulary Medication (Nitric Oxide Foundation) ascorbic acid (Vitamin C 500 mg oral tablet, chewable) aspirin (aspirin 81 mg Chew Tab) cyclobenzaprine (cyclobenzaprine 5 mg Tab) garlic (Garlic) hydrOXYzine (hydrOXYzine hydrochloride 25 mg Tab) iodine magnesium amino acids chelate menaquinone (Vitamin K2) methylPREDNISolone (Medrol 4 mg Tab) metoprolol (metoprolol 50 mg ER Tab) multivitamin with minerals (Elderberry Gummies with Vitamin C and Zinc) sertraline (sertraline 50 mg Tab) thyroid desiccated (Martell Thyroid 30 mg Tab) triamcinolone topical (triamcinolone Top 0.1% Crm 15 gram) valsartan (valsartan 160 mg Tab) zinc acetate (zinc acetate 50 mg oral capsule) Procedures Performed Colonoscopy (05/16/2025), Biopsy of breast (02/02/2021), Lumpectomy of right breast (02/02/2021), Dilation and curettage, Tonsillectomy, Tubal ligation, Ultrasonography guided biopsy of right breast. Discharge Vitals Heart Rate (Peripheral) 63 Blood Pressure 120/70 Height 154 cm Height 61 in Weight 54.1 kg Weight 119.27 lb BMI 22.81 What to do next Scheduled Follow-Up Appointments Friday 3:30 PM EDT Where: [facility] [address] [place] [address], [place] [address]- Someone Will Contact You Regarding These Appointments [facility] [place]ulatory Referral, [facility], 05/25/25 12:17:00 EDT, Allergic reaction YOSELIN positive Medications What How Much When Why Instructions New methylPREDNISolone (Medrol 4 mg Tab) 1 Packets By Mouth As Directed Allergic reaction Duration: 6 Days as directed on package labeling Pickup at [facility] Unchanged ascorbic acid (Vitamin C 500 mg oral tablet, chewable) 1 Tablets Chewed Every day Unchanged aspirin (aspirin 81 mg Chew Tab) 1 Tablets Chewed Friday Unchanged cyclobenzaprine (cyclobenzaprine 5 mg Tab) 1 Tablets By Mouth 3 times a day Muscle spasm Unchanged garlic (Garlic) See instructions 1 tab daily OTC Unchanged hydrOXYzine (hydrOXYzine hydrochloride 25 mg Tab) 1 Tablets By Mouth 4 times a day Skin irritation Anxiety Unchanged iodine By Mouth Every day Unchanged magnesium amino acids chelate By Mouth Every day Unchanged menaquinone (Vitamin K2) 100 Microgram By Mouth Every day Unchanged metoprolol (metoprolol 50 mg ER Tab) 1 Tablets By Mouth Every day Unchanged multivitamin with minerals (Elderberry Gummies with Vitamin C and Zinc) 1 tablet Chewed Every day Unchanged Non-Formulary Medication (NAC Detox Regulators) By Mouth Every day Selenium 500 mcg, Molybdenum 50 mcg, and N-Acetylcysteine 600 mg Unchanged Non-Formulary Medication (Nitric Oxide Foundation) 2 Tablets By Mouth Every day Vitamin C 290 mg, Thiamin 90mg, B12 200 mcg, Magnesium 75 mg, Potassium 189 mg, 500mg (postassium nitrate, beet root extract and fermented beet root powder). For Circulatory Support Unchanged sertraline (sertraline 50 mg Tab) 1 Tablets By Mouth Every day Unchanged thyroid desiccated (Martell Thyroid 30 mg Tab) 1 Tablets By Mouth Every day Marie's thyroiditis Hypothyroidism Duration: 90 Days no Generic substitutions please - Unchanged triamcinolone topical (triamcinolone Top 0.1% Crm 15 gram) 1 Application Topical 3 times a day Skin irritation Unchanged valsartan (valsartan 160 mg Tab) 1 Tablets By Mouth Every day Unchanged zinc acetate (zinc acetate 50 mg oral capsule) 1 Capsules By Mouth Every day on an empty stomach 1 hour before or 2 hours after eating Pharmacy Information [facility]: [address] [place] [id number] [phone] Allergies Citalopram Hydrobromide (Unknown) propranolol (hives) diclofenac sodium (BP rises) CeleXA (Unknown) Voltaren Topical (Hypertension) doxycycline (Yeast infection) hydroCHLOROthiazide (Electrolyte disturbance) lisinopril (Unknown) Problems Ongoing - Any problem that you are currently receiving treatment for. Abdominal pain Allergic reaction Allergies Anxiety Atypical migraine Benign essential hypertension Broken ribs Bulging of cervical intervertebral disc Cervical radiculitis Cervical spine pain Chest pain Chronic sinusitis with recurrent bronchitis Family history of colon cancer Fatigue Hand numbness Marie's thyroiditis Hernia, ventral Hx of colonic polyp Hyperlipidemia, mild Hyperplastic polyp of descending colon Hypothyroidism Impetigo Itching Left shoulder pain Mild CAD Mild recurrent major depression Muscle spasm Nasal (more content not included)... Normal [facility] Family Medicine Office/Clini c Noteon 05-25-2025 Family Medicine Office/Clinic Note Family Medicine Office/Clinic Note Chief Complaint Allergic reaction HPI Staff complaints of allergic reaction -Sutab was what given for the prep states when she took the first one gave her a headache second one she threw up. -Has bumps on her face, and head also has been working in the yard getting old leaves out of the garden so isn't sure if its from the mold. History of Present Illness Lori is a 75 year old female who presents for an allergic reaction. She was working outside cleaning up the yard and then she started having itching on her forehead and legs and her eye lids have been swelling in the monring ever since then. I am going to give her a steroid. Staff HPI reviewed and accurate. Review of Systems PHQ Score Initial Depression Screen Score: 0 SCORE Physical Exam Vitals & Measurements HR: 63(Peripheral) BP: 120/70 SpO2: 97% HT: 154 cm HT: 61 in WT: 54.1 kg WT: 119.27 lb BMI: 22.81 rash on forehead Assessment/Plan 1. Allergic reaction, (T78.40XA: Allergy, unspecified, initial encounter)Allergic reaction medrol dose pack fu as needed Ordered: methylPREDNISolone, = 1 packet(s), Oral, As Directed, as directed on package labeling, X 6 day(s), # 21 tab(s), Refills(s) 0, Pharmacy: [facility], 154, cm, 05/25/25 12:04:00 EDT, Height/Length Dosing, 54.1, kg, 05/25/25 12:04:00 EDT, Weight Dosing Follow-up No qualifying data available Problem List/Past Medical History Ongoing Abdominal pain Allergic reaction Allergies Anxiety Atypical migraine Benign essential hypertension Broken ribs Bulging of cervical intervertebral disc Cervical radiculitis Cervical spine pain Chest pain Chronic sinusitis with recurrent bronchitis Family history of colon cancer Fatigue Hand numbness Marie's thyroiditis Hernia, ventral Hx of colonic polyp Hyperlipidemia, mild Hyperplastic polyp of descending colon Hypothyroidism Impetigo Itching Left shoulder pain Mild CAD Mild recurrent major depression Muscle spasm Nasal septal ulcer Occipital neuralgia Osteoporosis Otitis media of left ear Personal history of breast cancer Pneumonia involving right lung Positive YOSELIN (antinuclear antibody) Post-nasal drip Postmenopause atrophic vaginitis Sessile rectal polyp Short-term memory loss Shortness of breath Situational insomnia Vaginal candidosis Varicose veins of calf Vertigo Viral illness Vitamin D deficiency Wellness examination Historical B12 deficiency Breast cancer of upper-inner quadrant of right female breast Bronchitis 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 Medications Martell Thyroid 30 mg Tab, 30 mg= 1 tab(s), Oral, Daily, 3 refills aspirin 81 mg Chew Tab, 81 mg= 1 tab(s), Chewed, MonWedFri cyclobenzaprine 5 mg Tab, 5 mg= 1 tab(s), Oral, TID, 1 refills Elderberry Gummies with Vitamin C and Zinc, 1 tablet, Chewed, Daily Garlic, See Instructions hydrOXYzine hydrochloride 25 mg Tab, 25 mg= 1 tab(s), Oral, QID, 1 refills iodine, Oral, Daily magnesium amino acids chelate, Oral, Daily Medrol 4 mg Tab, 1 packet(s), Oral, As Directed metoprolol 50 mg ER Tab, 50 mg= 1 tab(s), Oral, Daily NAC Detox Regulators, Oral, Daily Nitric Oxide Foundation, 2 tab(s), Oral, Daily sertraline 50 mg Tab, 50 mg= 1 tab(s), Oral, Daily triamcinolone Top 0.1% Crm 15 gram, 1 christiaon, Topical, TID valsartan 160 mg Tab, 160 mg= 1 tab(s), Oral, Daily Vitamin C 500 mg oral tablet, chewable, 500 mg= 1 tab(s), Chewed, Daily Vitamin K2, 100 mcg, Oral, Daily zinc acetate 50 mg oral capsule, 50 [...] Abuse - Denies Substance Abuse, 06/01/2019 Household substance abuse concerns: No., 12/17/2022 Tobacco - Denies Tobacco Use, 07/06/2019 Never (less than 100 in lifetime) Tobacco Use:. Never Smokeless Tobacco Use:. Household tobacco concerns: No., 05/25/2025 Family History Acute myocardial infarction: Brother, Brother, Brother and Brother. Alcoholism: Brother and Brother. Brain aneurysm: Father. Cancer - unknown origin: Mother and Brother. Colon cancer stage 4: Brother. Diabetes mellitus type 2: Sister and Brother. Hyperlipidemia: Brother and Brother. Hypertension: Brother (more content not included)... Normal [facility] Comment on above: Result Comment: Elec tronically Signed By: ZHOU FONTANEZ\.reg\Date and Time Signed: 05/25/25 12:15 EDT Pamela 05-24-2025 BUCK Telephone (QUIQUE) KERMIT ROSEN ([id number]) 1950 F Date Time Provider Department 05/24/25 Janelle TAPIA During your visit today, we recorded the following information about you: Augustine Chung 05/24/2025 11:26 AM Signed Kermit Shaw Rosen ws referred to Dr. Tapia for ESD procedure. Records received and scanned to chart. Colored pics will be sent to . Spoke with Ms. Rosen and explained the process. She was transferred to registration to update her insurance. Allergies As of Date: 05/24/2025 Noted Allergy Reaction CELEXA (CITALOPRAM) 04/09/2021 16 - Unknown Comments: felt horrible DICLOFENAC SODIUM 04/09/2021 5 - Intolerance Comments: raised blood pressure DOXYCYCLINE 04/09/2021 16 - Unknown HCTZ (THIAZIDES) 04/09/2021 16 - Unknown LISINOPRIL 04/09/2021 5 - Intolerance Date Reviewed: 04/09/2021 Reviewed by: Socorro Rooney MD - Fully Assessed Reason for Visit: Referral Request [124] ESD [Other] Prescriptions as of 05/24/2025 - famotidine (PEPCID) 20 mg tablet Take 20 mg by mouth twice daily. - INSTANT PRINTER OPERATOR THYROID 30 mg tablet Take 30 mg by mouth once daily. - metoprolol succinate ER (TOPROL XL) 50 mg 24 hr tablet Take 50 mg by mouth once daily. - losartan (COZAAR) 50 mg tablet Take 50 mg by mouth once daily. - aspirin, enteric coated (ASPIRIN, ENTERIC COATED) 81 mg EC tablet Take 81 mg by mouth once daily. - sertraline (ZOLOFT) 100 mg tablet Take 100 mg by mouth once daily. - ALPRAZolam (XANAX) 0.25 mg tablet Take 0.25 mg by mouth as needed. Problem List As Of Date 05/24/2025 Noted Resolved YOSELIN positive [R76.8] 04/09/2021 Elevated sed rate [R70.0] 04/09/2021 Bilateral hand pain [M79.641, M79.642] 04/09/2021 Secondary osteoarthritis of multiple sites [M15*04/09/2021 Postmenopausal osteoporosis of multiple sites [*04/09/2021 Numbness and tingling in both hands [R20.0, R20*04/09/2021 Numbness and tingling of foot [R20.0, R20.2] 04/09/2021 Dry eye syndrome of both eyes [H04.123] 04/09/2021 Dry mouth [R68.2] 04/09/2021 Cervicalgia [M54.2] 04/09/2021 Encounter Status:Closed by AUGUSTINE CHUNG on 05/24/25 [facility] 05-24-2025 Reminders Reminders From: Sabine Willis MA To: N - Clinical; Sent: 05/24/2025 10:47:45 EDT Show up: 04/15/2030 10:47:00 EDT Subject: Colonoscopy recall 5 years Reminder/Recall Last colonoscopy: 05/16/25 Repeat: 5 years Reason: Family Hx and polyps (referred to the [facility] for sessile polyp) Normal [facility] Surgical Pathology Reporton 05-18-2025 Surgical Pathology Report [address] [address]- Surgical Pathology Report Collected Date/Time: 05/16/2025 08:18 EDT Pathologist: Bang RAY PhD, Mal Rivera Received Date/Time: 05/16/2025 10:20 EDT Marlo RAY, Singh Sellers MD, Singh Arcos Surgical Pathology Report - 05/18/2025 12:09 EDT - Auth (Verified) Final Diagnosis POLYP, ASCENDING COLON, POLYPECTOMY: - COLONIC MUCOSA WITH FOCAL HYPERPLASTIC CHANGES AND LYMPHOID AGGREGATES. (Electronic Signature) Mal Cuenca MD PhD 05/18/2025 12:09 Clinical Information Family history of colon cancer Pre-Op Diagnosis: Family history of colon cancer Procedure: Colonoscopy Post-Op Diagnosis: 1. One polyp measuring 3 mm in the ascending colon removed with cold snare 2. A 5 cm sessile polyp located in the rectum at 10 cm; due to its location behind a fold as well as its sessile nature will refer to [facility] advanced endoscopy for EMR versus ESD. Specimen(s) Received Ascending colon polyp Gross Description Received in formalin labeled with patient name, number, and ascending colon polyp is a single elongated fragment of gibson/pink tissue measuring 1.4 x 0.3 x 0.1 cm. Specimen is entirely submitted in one cassette. (DC) DC:[facility] Microscopic Description Microscopic examination performed unless gross only specified. Quality was accessed and acceptable. This report was transcribed using voice recognition technology and might contain unintended computerized brainer errors. Normal [facility] Comment on above: Performed By: #### [id number] #### [facility] [address] [place] [address] Main OR Intraoperative Recor don 05-17-2025 Main OR Intraoperative Record Main OR Intraoperative Record IntraOp Document Type FT Summary Primary Physician: Singh Sellers MD Finalized Date/Time: 05/17/25 11:24:52 Pt. Name: BETYKERMITO.B./Sex: 1950 Female Med Rec #: [id number] Physician: Singh Sellers MD Financial #: [id number] Pt. Type: O Room/Bed: / Admit/Disch: 05/16/25 06:54:33 - 05/16/25 23:59:59 Institution: Case Times FT Entry 1 Patient Times In Room 05/16/25 08:03:00 Out Room 05/16/25 08:29:00 Procedure Times Start 05/16/25 08:09:00 Stop 05/16/25 08:24:00 Anesthesia Times Start 05/16/25 08:03:00 Stop 05/16/25 08:29:00 Time at [facility] 05/16/25 08:12:00 Last Modified By: Mariya Dickens RN 05/16/25 08:29:42 Case Attendance FT Entry 1 Entry 2 Entry 3 Case Attendee Adele TUCKER, Leonel Vail, Neymar Alvarez Role Performed LABORATORY VETERINARIAN Staff - Other Scrub - Primary Time In 05/16/25 08:03:00 05/16/25 08:03:00 05/16/25 08:03:00 Time Out 05/16/25 08:29:00 05/16/25 08:29:00 05/16/25 08:29:00 Procedure COLONOSCOPY(.) COLONOSCOPY(.) COLONOSCOPY(.) Comments Dr. Anand supervising help in room case Last Modified By: Maninder MIR, Mariya Dickens RN, Mariya Hightower RN 05/16/25 08:29:42 05/16/25 08:29:42 05/16/25 08:29:42 Entry 4 Entry 5 Entry 6 Case Attendee Florinda DOMINGUEZ, Ailyn Sellers MD, Singh Dickens RN, Mariya Squires Role Performed Staff - Other Surgeon - Primary Oil Inspector - Primary Time In 05/16/25 08:03:00 05/16/25 08:03:00 05/16/25 08:03:00 Time Out 05/16/25 08:29:00 05/16/25 08:29:00 05/16/25 08:29:00 Procedure COLONOSCOPY(.) COLONOSCOPY(.) COLONOSCOPY(.) Comments help in room Last Modified By: Maninder MIR, Mariya Dickens RN, Mariya Hightower RN 05/16/25 08:29:42 05/16/25 08:29:42 05/16/25 08:29:42 Perioperative Protocols FT Pre-Care Text: Implements protective measures prior to operative or invasive procedure, confirms identity before the operative or invasive procedure, verifies operative procedure, surgical site, and laterality Entry 1 Procedure(s) COLONOSCOPY(.) Patient Identity Birthday, ID Band Verified (select at Check, Patient least 2): Participation Consents / H and P Anesthesia Consent, Operative Site N/A Verified H&P, Surgery/Procedure Marking Verified Consent Surgical Site No Laterality Verified n/a Verified Procedure Verified Yes Correct Patient Yes Position Verified Availability Equipment, Medication Prep Dry n/a Verified (If Applicable) PreOp Antibiotic No Time Out Leonel Angulo CRNA, Given Participants Mee Vail Sparks, Micala E, Schafer CST, Marlo Godwin MD, Maninder Mccallum RN, Kristin N Time Out Complete 05/16/25 08:05:00 Outcomes Met? Yes Last Modified By: Mariya Dickens RN 05/16/25 08:06:03 Post-Care Text: The patient is free from signs and symptoms of injury caused by extraneous objects Allergy Information FT Pre-Care Text: Verifies allergies Entry 1 Allergies Reviewed? Yes Allergies Reviewed Self/Patient With Outcomes Met? Yes Last Modified By: Mariya Dickens RN 05/16/25 08:06:08 Post-Care Text: The patient received appropriate medication(s) safely administered during the perioperative period Surgical Procedures FT Entry 1 Procedure Description Procedure COLONOSCOPY Modifiers . Surgeon Description Colonoscopy with ascending colon polypectomy. Primary Procedure Yes Primary Surgeon Singh Sellers MD Start 05/16/25 08:09:00 Stop 05/16/25 08:24:00 Anesthesia Type General Surgical Service General Wound Class 2 - Clean-Contaminated Last Modified By: Mariya Dickens RN 05/16/25 08:24:52 General Case Data FT Pre-Care Text: Classifies surgical wound, implements aseptic technique, initiates traffic control Entry 1 Case Information OR ENDO 1 FT Case Level Level 2 Wound Class 2 - Clean-Contaminated Specialty General ASA Class 3 Preop Diagnosis Family history of colon Postop Same As Preop No cancer Postop Diagnosis Thrombosed hemmorhoid, Outcomes Met? Yes diverticulosis, ascending colon polyp, large 5cm rectal polyp not removed Last Modified By: Mariya Dickens RN 05/16/25 08:26:43 Post-Care Text: The patient is free from signs and symptoms of infection Skin Assessment (Pre Procedure) FT Pre-Care Text: Implements protective measures to prevent skin/ tissue injury due to thermal or mechanical sources Evaluates for signs and symptoms of physical injury to skin and tissue Entry 1 Skin Integrity Dry, Warm Skin Abnormality No Outcomes Met? Yes Last Modified By: Mariya Dickens RN 05/16/25 08:06:46 Post-Care Text: The patient is free from signs and symptoms of injury caused by extraneous objects Patient Positioning FT Pre-Care Text: Identifies physical alterations that require additional precautions for procedure-specific positioning, verifies presence of prosthetics or corrective devices, positi (more content not included)... Normal [facility] Discharge Instructionson Discharge Instructions Discharge Instructions KERMIT ROSEN :1950 Visit Date:05/16/2025 Inpatient Discharge Instructions Your Care Team Admitting Physician - Singh Sellres MD Referring Physician - Singh Sellers MD Reason for Your Visit FAMILY HISTORY OF COLON CANCER, HYPERPLASTIC POLYP OF DESENDING COLON Tests Performed Pathology Tissue Exam -- Results Pending -- Please visit your patient portal for your results or contact your primary care physician. This Is Your Medications List Non-Formulary Medication (NAC Detox Regulators) Non-Formulary Medication (Nitric Oxide Foundation) ascorbic acid (Vitamin C 500 mg oral tablet, chewable) aspirin (aspirin 81 mg Chew Tab) cyclobenzaprine (cyclobenzaprine 5 mg Tab) garlic (Garlic) hydrOXYzine (hydrOXYzine hydrochloride 25 mg Tab) iodine magnesium amino acids chelate menaquinone (Vitamin K2) metoprolol (metoprolol 50 mg ER Tab) multivitamin with minerals (Elderberry Gummies with Vitamin C and Zinc) sertraline (sertraline 50 mg Tab) thyroid desiccated (Martell Thyroid 30 mg Tab) triamcinolone topical (triamcinolone Top 0.1% Crm 15 gram) valsartan (valsartan 160 mg Tab) zinc acetate (zinc acetate 50 mg oral capsule) What to do next Instructions From Your Doctor No qualifying data available. Previously Scheduled Follow-Up Appointments Friday 3:30 PM EDT Where: [facility] [address], [facility] [place], [place] [address]- New Follow Up Appointments after Discharge Follow Up with Marlo RAY, TY Mccallum When: Within 1 to 2 weeks, only if needed Comments: Call for any problems. Where: [address], [address] [place] [address]- [phone] Medications What How Much When Why Instructions Next Dose Unchanged ascorbic acid (Vitamin C 500 mg oral tablet, chewable) 1 Tablets Chewed Every day Unchanged aspirin (aspirin 81 mg Chew Tab) 1 Tablets Chewed Friday Unchanged cyclobenzaprine (cyclobenzaprine 5 mg Tab) 1 Tablets By Mouth 3 times a day Muscle spasm Unchanged garlic (Garlic) See instructions 1 tab daily OTC Unchanged hydrOXYzine (hydrOXYzine hydrochloride 25 mg Tab) 1 Tablets By Mouth 4 times a day Skin irritation Anxiety Unchanged iodine By Mouth Every day Unchanged magnesium amino acids chelate By Mouth Every day Unchanged menaquinone (Vitamin K2) 100 Microgram By Mouth Every day Unchanged metoprolol (metoprolol 50 mg ER Tab) 1 Tablets By Mouth Every day Unchanged multivitamin with minerals (Elderberry Gummies with Vitamin C and Zinc) 1 tablet Chewed Every day Unchanged Non-Formulary Medication (NAC Detox Regulators) By Mouth Every day Selenium 500 mcg, Molybdenum 50 mcg, and N-Acetylcysteine 600 mg Unchanged Non-Formulary Medication (Nitric Oxide Foundation) 2 Tablets By Mouth Every day Vitamin C 290 mg, Thiamin 90mg, B12 200 mcg, Magnesium 75 mg, Potassium 189 mg, 500mg (postassium nitrate, beet root extract and fermented beet root powder). For Circulatory Support Unchanged sertraline (sertraline 50 mg Tab) 1 Tablets By Mouth Every day Unchanged thyroid desiccated (Martell Thyroid 30 mg Tab) 1 Tablets By Mouth Every day Marie's thyroiditis Hypothyroidism Duration: 90 Days no Generic substitutions please - Unchanged triamcinolone topical (triamcinolone Top 0.1% Crm 15 gram) 1 Application Topical 3 times a day Skin irritation Unchanged valsartan (valsartan 160 mg Tab) 1 Tablets By Mouth Every day Unchanged zinc acetate (zinc acetate 50 mg oral capsule) 1 Capsules By Mouth Every day on an empty stomach 1 hour before or 2 hours after eating Test Results No qualifying data available. Allergies Citalopram Hydrobromide (Unknown) propranolol (hives) diclofenac sodium (BP rises) CeleXA (Unknown) Voltaren Topical (Hypertension) doxycycline (Yeast infection) hydroCHLOROthiazide (Electrolyte disturbance) lisinopril (Unknown) Problems Ongoing - Any problem that you are currently receiving treatment for. Abdominal pain Allergies Anxiety Atypical migraine Benign essential hypertension Broken ribs Bulging of cervical intervertebral disc Cervical radiculitis Cervical spine pain Chest pain Chronic sinusitis with recurrent bronchitis Family history of colon cancer Fatigue Hand numbness Marie's thyroiditis Hernia, ventral Hx of colonic polyp Hyperlipidemia, mild Hyperplastic polyp of descending colon Hypothyroidism Impetigo Itching Left shoulder pain Mild CAD Mild recurrent major depression Muscle spasm Nasal septal ulcer Occipital neuralgia Osteoporosis Otitis media of left ear Personal history of breast cancer Pneumonia involving right lung Positive YOSELIN (antinuclear antibody) Post-nasal drip Postmenopause atrophic vaginitis Short-term memory loss Shortness of breath Situational insomnia Vaginal candidosis Varicose veins of calf Vert (more content not included)... Normal [facility] Comment on above: Result Comment: Elec tronically Signed By: Saira Bush I\.reg\Date and Time Signed: 05/16/25 08:43 EDT Main OR PACU I Recordon 05-01 Main OR PACU I Record Main OR PACU I Rec ord PACU Phase I Document Type FT Summary Primary Physician: Singh Sellers MD Finalized Date/Time: 05/16/25 09:13:28 Pt. Name: KERMIT ROSEN Shaw Dixon./Sex: 1950 Female Med Rec #: [id number] Physician: Singh Sellers MD Financial #: [id number] Pt. Type: O Room/Bed: / Admit/Disch: 05/16/25 06:54:33 - Institution: Case Times PACU I FT Pre-Care Text: Identifies barriers to communication and implements measures to provide psychological support Develops individualized plan of care, and ensures continuity of care Maintains patient's dignity and privacy, and maintains patient confidentiality Identifies and reports philosophical, cultural, and spiritual beliefs and values Identifies individual values and wishes concerning care Implements aseptic technique, and administers prescribed antibiotic therapy and immunizing agents as ordered Evaluates postoperative tissue perfusion Implements thermoregulation measures, and monitors body temperature Evaluates postoperative respiratory status Evaluates postoperative cardiac status Evaluates postoperative neurological status Assesses pain control, collaborated in initiating patient-controlled analgesia and implements alternative methods of pain control Verifies allergies, administers prescribed medications and solutions, evaluates response to medications Entry 1 In PACU I 05/16/25 08:31:00 Discharge from PACU 05/16/25 09:01:00 I Outcomes Met? Yes Last Modified By: Saira Bush I 05/16/25 09:13:15 Post-Care Text: The patient demonstrates knowledge of the expected response to the operative or invasive procedure The patient's care is consistent with the individualized perioperative plan of care The patient's right to privacy is maintained The patient's value system, lifestyle, ethnicity, and culture are considered, respected, and incorporated into the perioperative plan of care The patient participates in decisions affecting his or her perioperative plan of care The patient is free from signs and symptoms of infection The patient has wound/tissue perfusion consistent with or improved from baseline levels established preoperatively The patient is at or returning to normothermia at the conclusion of the immediate postoperative period The patient's respiratory function is consistent with or improved from baseline levels established preoperatively The patient's cardiovascular status is consistent with or improved from baseline levels established preoperatively The patient's cardiovascular status is consistent with or improved from baseline levels established preoperatively The patient demonstrates and/or reports adequate pain control throughout the perioperative period The patient received appropriate medication(s), safely administered during the perioperative period Acuity Level PACU I FT Entry 1 Start Time 05/16/25 08:31:00 Stop Time 05/16/25 09:01:00 Acuity Level Acuity Level I Last Modified By: Saira Bush I 05/16/25 09:13:24 Finalized By: Saira Bush I Document Signatures Signed By: Saira Bush I 05/16/25 09:13 Normal [facility] Main OR Preoperative Recordo n 05-16-2025 Main OR Preoperative Record Main OR Preoperative Record Holding Area Document Type FT Summary Primary Physician: Singh Sellers MD Finalized Date/Time: 05/16/25 07:17:42 Pt. Name: KERMIT ROSENO.B./Sex: 1950 Female Med Rec #: [id number] Physician: Singh Sellers MD Financial #: [id number] Pt. Type: O Room/Bed: / Admit/Disch: 05/16/25 06:54:33 - Institution: Case Times Holding FT Pre-Care Text: Verifies consent for planned procedure, identifies individual values and wishes concerning care, includes family members in perioperative teaching Secures patient's records' belongings, and valuables, maintains patient's dignity and privacy, and maintains patient confidentiality Entry 1 In Holding 05/16/25 07:09:00 Outcomes Met? Yes Last Modified By: Opal Diaz RN 05/16/25 07:16:32 Post-Care Text: The patient participates in decisions affecting his or her perioperative plan of care The patient's right to privacy is maintained Surgery Checklist FT Entry 1 Patient Birthday, ID Band Procedure History and Physical, Identification: Check, Patient Verification: Surgical Consent, With Participation Patient NPO after Midnight: No Date/Time: 05/16/25 04:00:00 Personal Items: Glasses, Jewelry Personal Items watch, earrings Comment: Limitations: vision Complaints of Pain: No Pain Comment: denies Operative Site n/a Marking: Availability Equipment Verified: Does Patient Smoke No Patient states Yes Comment - Adult eladio-friend postop adult Supervision supervision available Case Cancelled in No Holding Area see comments below for reason Last Modified By: Opal Diaz RN 05/16/25 07:17:39 General Comments: Pt. NPO since bowel prep finished at 0400/AW RN Finalized By: Opal Diaz RN Document Signatures Signed By: Opal Diaz RN 05/16/25 07:17 Normal [facility] Operative Reporton Operative Report Operative Report Patient: KERMIT ROSEN Age: 75 years Sex: Female : 1950 Associated Diagnoses: None Author: Singh Selelrs MD Pre-Procedure Procedure Date 05/16/2025 11:23:00 . Procedure Type: Colonoscopy with removal of tumor(s), polyp(s), or other lesion(s) by snare technique. Procedure provider Performed by Singh Sellers MD. Current history and physical Documented on chart. Colonoscopy ([id number]) on 05/16/2025 at 75 Years. Lumpectomy of right breast (2797096153) on 02/02/2021 at 71 Years. Biopsy of breast ([id number]) on 02/02/2021 at 71 Years. Comments: 02/02/2021 16:37 MARTY John RN, [place] sentinel node Ultrasonography guided biopsy of right breast ([id number]) on 01/12/2021 at 71 Years. Tonsillectomy (303560149). Tubal ligation (286426705). Ultrasonography guided biopsy of right breast (0885815468). Dilation and curettage (55647489).. Past Medical History Active Hypothyroidism ([id number]) Postmenopause atrophic vaginitis (87367621) Hernia, ventral (8879134366) Anxiety (58338869) Resolved (579280374): Onset on 03/04/1977 at 27 years. Resolved on 11/25/1977 at 27 years. ([id number]): Onset on 04/27/1974 at 24 years. Resolved on 02/01/1975 at 25 years. ([id number]): Onset on 07/13/1969 at 19 years. Resolved on 04/19/1970 at 20 years. Hypokalemia (23043669): Resolved. B12 deficiency (809035061): Resolved. Breast cancer of upper-inner quadrant of right female breast (915708034): Resolved. 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 Bronchitis (43582132): Resolved. Vaginal bleeding problems (1760571336): Resolved. Pneumonia (341333082): Resolved.. Family History Hypertension Brother Brother Cancer - unknown origin Mother () Brother () Diabetes mellitus type 2 Brother () Sister Alcoholism Brother () Brother () Stroke Sister Acute myocardial infarction Brother () Brother () Brother () Brother Hyperlipidemia Brother Brother Brain aneurysm Father () Colon cancer stage 4 Brother () . Procedure History Colonoscopy ([id number]) on 05/16/2025 at 75 Years. Lumpectomy of right breast (3728020932) on 02/02/2021 at 71 Years. Biopsy of breast ([id number]) on 02/02/2021 at 71 Years. Comments: 02/02/2021 16:37 MARTY John RN, [place] sentinel node Ultrasonography guided biopsy of right breast ([id number]) on 01/12/2021 at 71 Years. Tonsillectomy (641097775). Tubal ligation (988133022). Ultrasonography guided biopsy of right breast (9390050616). Dilation and curettage (11910291).. Colorectal neoplasm risk assessment High risk Family history colon cancer. . Informed Consent After discussing the rationale, risks and benefits, and alternatives to this procedure, the patient provided signed consent for the procedure. Pre-procedure diagnosis: Family history of colon cancer. Medications (Selected) Inpatient Medications Ordered Sodium Chloride 0.9% IV Francisca 1000 mL 1,000 mL: 1,000 mL, IV, 20 mL/hr, Routine, Start date 05/16/25 6:38:00 EDT, 50 hour(s), Total volume (mL): 1,000, 55.5 kg, 1.54, m2 Prescriptions Prescribed Martell Thyroid 30 mg Tab: 30 mg = 1 tab(s), Oral, Daily, no Generic substitutions please -, X 90 day(s), # 90 tab(s), Refills(s) 3, Pharmacy: [facility], 154, cm, 10/15/24 10:15:00 EST, Height/Length Dosing, 55.6, kg, 10/15/24 10:15:00 EST, Weight Dosing cyclobenzaprine 5 mg Tab: 5 mg = 1 tab(s), Oral, TID, # 30 tab(s), Refills(s) 1, Pharmacy: [facility], 154, cm, 01/19/25 13:51:00 EST, Height/Length Dosing, 57.2, kg, 01/19/25 13:51:00 EST, Weight Dosing hydrOXYzine hydrochloride 25 mg Tab: 25 mg = 1 tab(s), Oral, QID, # 30 tab(s), Refills(s) 1, Pharmacy: [facility], 154, cm, 05/03/25 13:19:00 EDT, Height/Length Dosing, 55.5, kg, 05/03/25 13:19:00 EDT, Weight Dosing triamcinolone Top 0.1% Crm 15 gram: 1 christiaon, Topical, TID, 30 gram, Refill(s) 0, [facility], 154, cm, 05/03/25 13:19:00 EDT, Height/Length Dosing, 55.5, kg, 05/03/25 13:19:00 EDT, Weight Dosing Documented Medications Documented Elderberry Gummies with Vitamin C and Zinc: 1 tablet, Chewed, Daily, Refill(s) 0, Prophylaxis Garlic: See Instructions, 1 tab daily OTC NAC Detox Regulators: NAC Detox Regulators, Oral, Daily, Selenium 500 mcg, Molybdenum 50 mcg, and N-Acetylcysteine 600 mg Nitric Oxide Foundation: Nitric Oxide Foundation, 2 tab(s), Oral, Daily, Vitamin C 290 mg, Thiamin 90mg, B12 200 mcg, Magnesium 75 mg, Potassium 189 mg, 500mg (postassium nitrate, beet root extract and fermented beet root powder). For Circulatory Support Vitamin C 500 mg oral tablet, chewable: 500 mg = 1 tab(s), Chewed, Daily, Refills(s) 0, Prophylaxis Vitamin K2: 100 mcg, Oral, Daily, Refill(s) 0, Prophylaxis aspirin 81 mg Chew Tab: 81 (more content not included)... 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 FINDINGS: Biplanar images were obtained. The right lobe measures 3.7 cm x 1.7 cm x 1.2 cm with a volume of 3.9 cm3. The left lobe measures 4.2 cm x 1.4 cm x 1.3 cm with a volume of 3.9 cm3. The isthmus measures 0.3 cm. The thyroid gland is normal in size. Right Lobe: A TIRADS 3 nodule of the superior right lobe measures 0.7 x 0.6 x 0.8 cm. This appears minimally enlarged when compared to prior examination. Left Lobe: Unremarkable. ACR recommendations: TIRADS Level 1: Benign: No FNA TIRADS level 2: Not suspicious: No FNA TIRADS level 3: Mildly suspicious: FNA if greater than or equal to 2.5 cm; follow if greater than or equal to 1.5 cm at 1, 3, and 5 years. TIRADS level 4: Moderately suspicious: FNA if greater than or equal to 1.5 cm; follow-up greater than or equal to 1 cm at 1, 2, 3, and 5 years. TIRADS level 5: Highly suspicious: FNA of greater than or equal to 1 cm; follow-up greater than or equal to 0.5 cm annually until 5 years. Please note that description of thyroid nodules in this report is based on the 2017 Thyroid Imaging, Reporting and Data System (TI- RADS) established by the [place] [employer] to help provide guidance regarding management of thyroid nodules Report based on their appearance. These are offered in an attempt to assist the referring physician in their decision process and help address the current over diagnosis of thyroid cancer. These guidelines are considered recommendations and guidance and do not represent rules or absolute standards of care. Ordering Provider: SY WICK FINAL REPORT Dictated: 05/11/2025 2:26 pm Bry Gonzalez DO Signed (Electronic Signature): 05/11/2025 2:26 pm Signed by: Bry Gonzalez DO Transcribed by: EL Technologist: SRB Normal [facility] CBC w/ Auto Diffon 5 Basophil Absolute 0.0 E9/L Normal 0.0-0.2 [facility] Comment on above: Performed By: #### 2 [id number] #### [facility] [address] [place] [address] Basophils/100 WBC (Bld) 0.6 % Normal 0.0-2.0 F [facility] Comment on above: Performed By: #### 2 [id number] #### [facility] [address] [place] [address] Eos Absolute 0.1 E9/L Normal 0.0-0.5 [facility] Comment on above: Performed By: #### 2 [id number] #### [facility] [address] [place] [address] Eosinophils/100 WBC (Bld) 1.1 % Normal 0.0-8.0 [facility] Comment on above: Performed By: #### 2 [id number] #### [facility] [address] [place] [address] Erythrocyte distribution width (RBC) [Ratio] 13.6 % Normal 10.9-14.2 [facility] Comment on above: Performed By: #### 2 [id number] #### [facility] [address] [place] [address] Hematocrit (Bld) [Volume fraction] 41.2 % Normal 34.0-46.0 [facility] Comment on above: Performed By: #### 2 [id number] #### [facility] [address] [place] [address] Hemoglobin (Bld) [Mass/Vol] 14.2 g/dL Normal 12.0-16.0 [facility] Comment on above: Performed By: #### 2 [id number] #### [facility] [address] [place] [address] Lymph Absolute 1.8 E9/L Normal 1.0-4.0 [facility] Comment on above: Performed By: #### 2 [id number] #### [facility] [address] [place] [address] Lymphocytes/100 WBC (Bld) 31.9 % Normal 14.0-50.0 [facility] Comment on above: Performed By: #### 2 [id number] #### [facility] [address] [place] [address] MCH (RBC) [Entitic mass] 31.1 pg Normal 27.0-34.0 [facility] Comment on above: Performed By: #### 2 [id number] #### [facility] [address] [place] [address] MCHC (RBC) [Mass/Vol] 34.5 g/dL Normal 31.4-36.0 [facility] Comment on above: Performed By: #### 2 [id number] #### [facility] [address] [place] [address] MCV (RBC) [Entitic vol] 90.2 fL Normal 80.0-100.0 F [facility] Comment on above: Performed By: #### 2 680525 #### [facility] [address] [place] [address] Preble Absolute 0.3 E9/L Normal 0.2-1.0 [facility] Comment on above: Performed By: #### 2 119014 #### [facility] [address] [place] [address] Monocytes/100 WBC (Bld) 6.2 % Normal 4.0-14.0 [facility] Comment on above: Performed By: #### 2 [id number] #### [facility] [address] [place] [address] Neutro Absolute 3.3 E9/L Normal 2.0-7.5 [facility] Comment on above: Performed By: #### 2 722325 #### [facility] [address] [place] [address] Neutro Auto 60.2 % Normal 36.0-75.0 [facility] Comment on above: Performed By: #### 2 [id number] #### [facility] [address] [place] [address] Platelet 225.0 E9/L Normal 150.0-500.0 [facility] Comment on above: Performed By: #### 2 178559 #### [facility] [address] [place] [address] Platelet mean volume (Bld) [Entitic vol] 9.5 fL Normal 6.4-10.8 [facility] Comment on above: Performed By: #### 2 [id number] #### [facility] [address] [place] [address] RBC 4.6 E12/L Normal 4.3-5.9 [facility] Comment on above: Performed By: #### 2 989805 #### [facility] [address] [place] [address] WBC 5.5 E9/L Normal 4.0-11.0 [facility] Comment on above: Performed By: #### 2 346134 #### [facility] [address] [place] [address] CHEMISTRYOrdered By: SYSTEM SYSTEM on 05-10-2025 Albumin [Mass/Vol] 4.3 g/dL Normal 3.3 - 5.0 gm/dL Remisol Chem Albumin/Globulin [Mass ratio] 1.5 {ratio} Normal 1.1 - 2.2 Remisol Chem ALP [Catalytic activity/Vol] 70 [iU]/d Normal 21 - 98 Int._Unit/L Remisol Chem ALT No additional P-5'-P [Catalytic activity/Vol] 13 [iU]/d Normal 6 - 46 Int._Unit/L Remisol Chem Anion gap [Moles/Vol] 12 mmol/L Normal 6 - 16 mEq/L R emisol Chem AST [Catalytic activity/Vol] 21 [iU]/d Normal 5 - 43 Int._Unit/L Remisol Chem Bilirubin [Mass/Vol] 0.5 mg/dL Normal 0.0 - 1 .1 mg/dL Remisol Chem Calcium [Mass/Vol] 9.3 mg/dL Normal 8.9 - 11. 1 mg/dL Remisol Chem Chloride [Moles/Vol] 106 mmol/L Normal 101 - 1 11 mmol/L Remisol Chem CO2 [Moles/Vol] 24 mmol/L Normal 21 - 31 mmol/L Remisol Chem Creatinine [Mass/Vol] 0.7 mg/dL Normal 0.5 - 1.3 mg/dL Remisol Chem Free T4 [Mass/Vol] 0.74 ng/dL Normal 0.58 - 1. 64 ng/dL Remisol Chem GFR/1.73 sq M.predicted MDRD (S/P/Bld) [Vol rate/Area] 90 mL/min/1.73 m2 Normal >=59mL/min/1 .73 m2 Remisol Chem Globulin (S) [Mass/Vol] 2.9 g/dL Normal 1.4 - 4.0 gm/dL Remisol Chem Glucose [Mass/Vol] 83 mg/dL Normal 55 - 199 mg/dL Remisol Chem Potassium [Moles/Vol] 3.9 mmol/L Normal 3.5 - 5.3 mmol/L Remisol Chem Protein [Mass/Vol] 7.2 g/dL Normal 6.0 - 7.8 gm/dL Remisol Chem Sodium [Moles/Vol] 138 mmol/L Normal 135 - 145 mmol/L Remisol Chem T3RU 39.6 % Normal 32.0 - 48.4 % Remisol Chem T4 [Mass/Vol] 7.7 ug/dL Normal 4.6 - 9.1 mcg/dL Remisol Chem TSH Qn 2.43 m[IU]/L Normal 0.34 - 5.60 mcIU/mL Remisol Chem Urea nitrogen [Mass/Vol] 20 mg/dL Normal 5 - 21 mg/dL Remisol Chem Urea nitrogen/Creatinine [Mass ratio] 29 mg/mg High 10 - 20 Remisol Chem CMPon 05-10-2025 Albumin [Mass/Vol] 4.3 g/dL Normal 3.3-5.0 [facility] Comment on above: Performed By: #### 2 [id number] #### [facility] [address] [place] [address] Albumin/Globulin [Mass ratio] 1.5 {ratio} Normal 1.1-2.2 [facility] Comment on above: Performed By: #### 2 [id number] #### [facility] [address] [place] [address] Alk Phos 70 Int._Unit/L Normal 21-98 [facility] Comment on above: Performed By: #### 2 [id number] #### [facility] [address] [place] [address] ALT 13 Int._Unit/L Normal 6-46 [facility] Comment on above: Performed By: #### 2 [id number] #### [facility] [address] [place] [address] Anion gap [Moles/Vol] 12 mmol/L Normal 6-16 [facility] Comment on above: Performed By: #### 2 [id number] #### [facility] [address] [place] [address] AST 21 Int._Unit/L Normal 5-43 [facility] Comment on above: Performed By: #### 2 [id number] #### [facility] [address] [place] [address] Bili Total 0.5 mg/dL Normal 0.0-1.1 [facility] Comment on above: Performed By: #### 2 [id number] #### [facility] [address] [place] [address] BUN/Creat Ratio 29 No Units High 10-20 [facility] Comment on above: Performed By: #### 2 [id number] #### [facility] [address] [place] [address] Calcium [Mass/Vol] 9.3 mg/dL Normal 8.9-11.1 [facility] Comment on above: Performed By: #### 2 [id number] #### [facility] [address] [place] [address] Chloride [Moles/Vol] 106 mmol/L Normal 101-111 [facility] Comment on above: Performed By: #### 2 292479 #### [facility] [address] [place] [address] CO2 [Moles/Vol] 24 mmol/L Normal 21-31 [facility] Comment on above: Performed By: #### 2 248058 #### [facility] [address] [place] [address] Creatinine [Mass/Vol] 0.7 mg/dL Normal 0.5-1.3 [facility] Comment on above: Performed By: #### 2 072194 #### [facility] [address] [place] [address] Globulin (S) [Mass/Vol] 2.9 g/dL Normal 1.4-4.0 [facility] Comment on above: Performed By: #### 2 [id number] #### [facility] [address] [place] [address] Glucose [Mass/Vol] 83 mg/dL Normal 55-199 [facility] Comment on above: Performed By: #### 2 [id number] #### [facility] [address] [place] [address] Potassium [Moles/Vol] 3.9 mmol/L Normal 3.5-5.3 [facility] Comment on above: Performed By: #### 2 381656 #### [facility] [address] [place] [address] Protein [Mass/Vol] 7.2 g/dL Normal 6.0-7.8 [facility] Comment on above: Performed By: #### 2 576078 #### [facility] [address] [place] [address] Sodium [Moles/Vol] 138 mmol/L Normal 135-145 [facility] Comment on above: Performed By: #### 2 [id number] #### [facility] [address] [place] [address] Urea nitrogen [Mass/Vol] 20 mg/dL Normal 5-21 [facility] Comment on above: Performed By: #### 2 [id number] #### [facility] [address] [place] [address] Free T4on 05-10-2025 Free T4 [Mass/Vol] 0.74 ng/dL Normal 0.58-1.64 [facility] Comment on above: Performed By: #### 2 [id number] #### [facility] [address] [place] [address] HEMATOLOGYOrdered By: SYSTEM SYSTEM on 05-10-2025 Basophils/100 WBC (Bld) 0.6 % Normal 0.0 - 2.0 % Remisol Heme Basophils/Leukocytes Auto (Bld) [Pure # fraction] 0.0 E9/L Normal 0.0 - 0.2 E9/L Remisol Heme Eosinophils (Bld) [#/Vol] 0.1 E9/L Normal 0.0 - 0.5 E9/L Remisol Heme Eosinophils/100 WBC (Bld) 1.1 % Normal 0.0 - 8.0 % Remisol Heme Erythrocyte distribution width (RBC) [Ratio] 13.6 % Normal 10.9 - 14.2 % Remisol Heme Hematocrit (Bld) [Volume fraction] 41.2 % Normal 34.0 - 46.0 % Remisol Heme Hemoglobin (Bld) [Mass/Vol] 14.2 g/dL Normal 12.0 - 16.0 gm/dL Remisol Heme Lymphocytes (Bld) [#/Vol] 1.8 E9/L Normal 1.0 - 4.0 E9/L Remisol Heme Lymphocytes/100 WBC (Bld) 31.9 % Normal 14.0 - 50.0 % Remisol Heme MCH (RBC) [Entitic mass] 31.1 pg Normal 27.0 - 34.0 pg Remisol Heme MCHC (RBC) [Mass/Vol] 34.5 g/dL Normal 31.4 - 36.0 gm/dL Remisol Heme MCV (RBC) [Entitic vol] 90.2 fL Normal 80.0 - 100.0 fL Remisol Heme Monocytes (Bld) [#/Vol] 0.3 E9/L Normal 0.2 - 1.0 E9/L Remisol Heme Monocytes/100 WBC (Bld) 6.2 % Normal 4.0 - 14.0 % Remisol Heme Neutrophils (Bld) [#/Vol] 3.3 E9/L Normal 2.0 - 7.5 E9/L Remisol Heme Neutrophils/100 WBC (Bld) 60.2 % Normal 36.0 - 75.0 % Remisol Heme Platelet mean volume (Bld) [Entitic vol] 9.5 fL Normal 6.4 - 10.8 fL Remisol Heme Platelets (Bld) [#/Vol] 225.0 E9/L Normal 150. 0 - 500.0 E9/L Remisol Heme RBC (Bld) [#/Vol] 4.6 E12/L Normal 4.3 - 5.9 E12/L Remisol Heme WBC corrected for nucl RBC Auto (Bld) [#/Vol] 5.5 E9/L Normal 4.0 - 11.0 E9/L Remisol Heme T3 Uptakeon 05-10-2025 T3 Uptake 39.6 % Normal 32.0-48.4 [facility] Comment on above: Performed By: #### 2 [id number] #### [facility] [address] [place] [address] T4 Totalon 05-10-2025 T4 7.7 microgram/dL Normal 4.6-9.1 [facility] Comment on above: Performed By: #### 1 [id number] #### [facility] [address] [place] [address] TSH With T4fr Reflexon 05-10 TSH Qn 2.43 m[IU]/L Normal 0.34-5.60 [facility] Comment on above: Performed By: #### 1 [id number] #### [facility] [address] [place] [address] eGFRon 05-10-2025 eGFR 90 mL/min/1.73 m2 Normal >=59 [facility] Comment on above: Performed By: #### 1 [id number] #### [facility] [address] [place] [address] Ambulatory Visit Summaryon 0 05-03-2025 Ambulatory Visit Summary Ambulatory Visit Summary KERMIT ROSEN Shaw :1950 Visit Date:05/03/2025 Ambulatory Visit Instructions Your Diagnosis Marie's thyroiditis Itching Anxiety, Anxiety Skin irritation Your Care Team Attending Physician - ZHOU FONTANEZ Primary Care Physician - ZHOU FONTANEZ This Is Your Medications List hydrOXYzine (hydrOXYzine hydrochloride 25 mg Tab) triamcinolone topical (triamcinolone Top 0.1% Crm 15 gram) Contact prescribing physician if questions or concerns Non-Formulary Medication (NAC Detox Regulators) Non-Formulary Medication (Nitric Oxide Foundation) ascorbic acid (Vitamin C 500 mg oral tablet, chewable) aspirin (aspirin 81 mg Chew Tab) cyclobenzaprine (cyclobenzaprine 5 mg Tab) garlic (Garlic) iodine magnesium amino acids chelate menaquinone (Vitamin K2) metoprolol (metoprolol 50 mg ER Tab) multivitamin with minerals (Elderberry Gummies with Vitamin C and Zinc) sertraline (sertraline 50 mg Tab) thyroid desiccated (Martell Thyroid 30 mg Tab) valsartan (valsartan 160 mg Tab) zinc acetate (zinc acetate 50 mg oral capsule) [Image Removed: STOP]Stop taking these medications Misc Prescription (spacer) Non-Formulary Medication (H-HTP 100 mg) Non-Formulary Medication (Serrapeptase 40,000 SPU) lidocaine topical (Lidoderm 5% Patch) lidocaine topical (lidocaine Top 5% film Patch) meloxicam (Mobic 15 mg Tab) montelukast (Singulair 10 mg Tab) nitroglycerin (nitroglycerin 0.4 mg sublingual Tab) Procedures Performed Biopsy of breast (02/02/2021), Lumpectomy of right breast (02/02/2021), Dilation and curettage, Tonsillectomy, Tubal ligation, Ultrasonography guided biopsy of right breast. Discharge Vitals Heart Rate (Peripheral) 67 Blood Pressure 126/70 Height 154 cm Height 61 in Weight 55.5 kg Weight 122.356 lb BMI 23.4 What to do next Scheduled Follow-Up Appointments Friday 8:00 AM EDT Where: [facility] Surgical Services Friday 3:30 PM EDT Where: [facility] [address] [place] [address], [place] [address]- You Need to Complete the Following CBC w/ Auto Diff, Blood, Routine collect, 05/03/25, Order for future visit, Lab Collect, Hypothyroid, Print Label By Order Location Comprehensive Metabolic Panel, Blood, Routine collect, 05/03/25, Order for future visit, Lab Collect, Hypothyroid, Print Label By Order Location Free T4, Blood, Routine collect, 05/03/25, Order for future visit, Lab Collect, Hypothyroid, Print Label By Order Location T3 Free, Blood, Routine collect, 05/03/25, Order for future visit, Lab Collect, Hypothyroid, Print Label By Order Location T3 Uptake, Blood, Routine collect, 05/03/25, Order for future visit, Lab Collect, Hypothyroid, Print Label By Order Location T4 Total, Blood, Routine collect, 05/03/25, Order for future visit, Lab Collect, Hypothyroid, Print Label By Order Location TSH With T4fr Reflex, Blood, Routine collect, 05/03/25, Order for future visit, Lab Collect, Hypothyroid, Print Label By Order Location US Thyroid, 05/03/25, Routine, Order for future visit, Transport Mode: Wheelchair, Reason: Marie's disease, No, Hypothyroid, pp_set_radiology_subs pecialty, [facility] Medications What How Much When Why Instructions New hydrOXYzine (hydrOXYzine hydrochloride 25 mg Tab) 1 Tablets By Mouth 4 times a day Skin irritation Anxiety Refills: [address] [facility] [address] New triamcinolone topical (triamcinolone Top 0.1% Crm 15 gram) 1 Application Topical 3 times a day Skin irritation Pickup at [facility] 1985 Unchanged ascorbic acid (Vitamin C 500 mg oral tablet, chewable) 1 Tablets Chewed Every day Contact prescribing physician if questions or concerns Unchanged aspirin (aspirin 81 mg Chew Tab) Chewed Every day Contact prescribing physician if questions or concerns Unchanged cyclobenzaprine (cyclobenzaprine 5 mg Tab) 1 Tablets By Mouth 3 times a day Muscle spasm Contact prescribing physician if questions or concerns [...] Contact prescribing physician if questions or concerns Unchang (more content not included)... Normal [facility] Family Medicine Office/Clini c Noteon 05-03-2025 Family Medicine Office/Clinic Note Family Medicine Office/Clinic Note Chief Complaint Thyroid issue HPI Staff Pt is here to discuss her thyroid and would like to have lab work done. -Pt states all winter she has been so cold, not sure if its old age or her thyroid issues was unsure when she last was tested. -Has an itch across her shoulder blades where she fell. Pt read that itching was a sign of cancer and wants to get her WBC checked. -Feels like left side of her neck has a lump that is bigger then the right side. History of Present Illness Kermit is a 75 year old female who presents for an acute visit - she has several complaints today. She has been on thyroid medication for many years. I did go back in her chart to see exactly what the time line was with her thyroid issues. It looks like she was on a natural supplement for her thyroid prior to 2018 which she is no longer taking. Her TSH was elevated in 2019 at 6.23 - she was apparently on levothyroxine at one point in time and then went to a naturla supplement, but then started having some cardiac issues and hair loss, TSH was rechecked and revealed to be 6.23 at that time. Her PCP at that time was Katherine Roblero and she [facility]. She has [place] thyroid study and US's done all prior to 2019 which were all normal in the chart. She is complaining of hair loss - she feels like her hair is constantly falling out and she used to have very long and thick hair and with age her hair has thinned. She denies bald spots. She is reporting constantly feeling cold and having to wear multiple layers even today which is a 90 degree summer day and she is wearing jeans and a long sleeved shirt. When she was originally diagnosed with hypothyroid she reports she was very fatigued. She is again fatigued, but she reports she is very active and nothing like she was when her thyroid was untreated. She would like repeat labs done today. Her most recent TSH was in January 2025 and it was normal at 2.33. Despite this lab work, she is feeling symptoms of low thyroid. I am going to get an US and labs to reeval. She also reports the left side of her neck looks larger than the right and she feels like the left side of the neck is larger/swollen (no tenderness) and she can see her heart beating in her neck. Again, labs and US ordered. She is complaining of itching across her upper back and using her back licensed psychiatric technician more often. She had an old script for hydroxyzine for anxiety and she still has anxiety and given the itching, I am going to give her a refill for PRN use. She reports she was on Ativan for many years but Rj didn't want to prescribe it and stopped the med and started hydroxyzine. Staff HPI reviewed and med list reviewed today. Review of Systems PHQ Score Initial Depression Screen Score: 0 SCORE Physical Exam Vitals & Measurements HR: 67(Peripheral) BP: 126/70 SpO2: 100% HT: 61 in HT: 154 cm WT: 122.356 lb WT: 55.5 kg BMI: 23.4 neck: left of midline slightly larger than right. No palpable masses. General: alert, no acute distress ENMT: TM's clear, oral mucosa moist, no pharyngeal erythema or exudate Cardiovascular: regular rate and rhythm, normal peripheral perfusion Respiratory: Lungs CTA, respirations non labored Extremities: no deformity, no trauma Neurological: oriented x 4, LOC appropriate for age, CN II-XII intact, motor strength equal & normal bilaterally, sensation equal & normal bilaterally, speech normal Assessment/Plan 1. 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 Itching (L29.9: Pruritus, unspecified) start triamcinolone cr to area as needed refill hydroxyzine and use PRN itching/anxiety 3. Anxiety, (F41.9: Anxiety disorder, unspecified)Anxiety refill hydroxyzine for now Ordered: hydrOXYzine, 25 mg = 1 tab(s), Oral, QID, # 30 tab(s), Refills(s) 1, Pharmacy: [facility] 1985, 154, cm, 05/03/25 13:19:00 EDT, Height/Length Dosing, 55.5, kg, 05/03/25 13:19:00 EDT, Weight Dosing Skin irritation (R23.8: Other skin changes) Ordered: hydrOXYzine, 25 mg = 1 tab(s), Oral, QID, # 30 tab(s), Refills(s) 1, Pharmacy: [facility] 1985, 154, cm, 05/03/25 13:19:00 EDT, Height/Length Dosing, 55.5, kg, 05/03/25 13:19:00 EDT, Weight Dosing triamcinolone topical, 1 christiano, Topical, TID, 30 gram, Refill(s) 0, [facility] 1985, 154, cm, 05/03/25 13:19:00 EDT, Height/Length Dosing, 55.5, kg, 05/03/25 13:19:00 EDT, Weight Dosing Orders: CBC w/ Auto Diff Comprehensive Metabolic Panel Free T4 T3 Free T3 Uptake T4 Total TSH With T4fr Reflex US Thyroid Follow-up No qualifying data available Problem List/Past Medical History Ongoing Abdominal pain Allergies Anxiety Atypical migraine Benign essential hypertension Broken ribs Bulging of cervical intervertebral disc Cervical radiculitis Cervical spine pain Chest pain Chronic sinusitis with recu (more content not included)... Normal [facility] Comment on above: Result Comment: Elec tronically Signed By: ZHOU FONTANEZ\.br\Date and Time Signed: 05/03/25 14:08 EDT Ambulatory Visit Summaryon 0 03-22-2025 Ambulatory Visit Summary Ambulatory Visit Summary KERMIT ROSEN :1950 Visit Date:03/22/2025 Ambulatory Visit Instructions Your Diagnosis Shortness of breath, SOB (shortness of breath) Cervical spine pain Your Care Team Attending Physician - ZHOU FONTANEZ Primary Care Physician - ZHOU FONTANEZ This Is [facility]) Non-Formulary Medication (H-HTP 100 mg) Non-Formulary Medication (NAC Detox Regulators) Non-Formulary Medication (Nitric Oxide Foundation) Non-Formulary Medication (Serrapeptase 40,000 SPU) ascorbic acid (Vitamin C 500 mg oral tablet, chewable) aspirin (aspirin 81 mg Chew Tab) cyclobenzaprine (cyclobenzaprine 5 mg Tab) garlic (Garlic) iodine lidocaine topical (Lidoderm 5% Patch) lidocaine topical (lidocaine Top 5% film Patch) magnesium amino acids chelate meloxicam (Mobic 15 mg Tab) menaquinone (Vitamin K2) metoprolol (metoprolol 50 mg ER Tab) montelukast (Singulair 10 mg Tab) multivitamin with minerals (Elderberry Gummies with Vitamin C and Zinc) nitroglycerin (nitroglycerin 0.4 mg sublingual Tab) sertraline (sertraline 50 mg Tab) thyroid desiccated (Martell Thyroid 30 mg Tab) valsartan (valsartan 160 mg Tab) zinc acetate (zinc acetate 50 mg oral capsule) Procedures Performed Biopsy of breast (02/02/2021), Lumpectomy of right breast (02/02/2021), Dilation and curettage, Tonsillectomy, Tubal ligation, Ultrasonography guided biopsy of right breast. Discharge Vitals Heart Rate (Peripheral) 72 Blood Pressure 138/90 Height 154 cm Height 61 in Weight 56.2 kg Weight 123.9 lb BMI 23.7 What to do next Scheduled Follow-Up Appointments Friday 8:00 AM EDT Where: [facility] Services Friday 2:30 PM EDT Where: [facility] [address], [place] [address]- Medications What How Much When Why Instructions New meloxicam (Mobic 15 mg Tab) 1 Tablets By Mouth Every day Cervical spine pain Refills: 5 Pickup at [facility] Unchanged ascorbic acid (Vitamin C 500 mg oral tablet, chewable) 1 Tablets Chewed Every day Unchanged aspirin (aspirin 81 mg Chew Tab) Chewed Every day Unchanged cyclobenzaprine (cyclobenzaprine 5 mg Tab) 1 Tablets By Mouth 3 times a day Muscle spasm Unchanged garlic (Garlic) See instructions 1 tab daily OTC Unchanged iodine Unchanged lidocaine topical (lidocaine Top 5% film Patch) 1 Patches Topical Every day Muscle spasm apply 12 hours on and 12 hours off daily Unchanged lidocaine topical (Lidoderm 5% Patch) 1 Patches Topical Every day apply 12 hours on and 12 hours off daily Unchanged magnesium amino acids chelate Unchanged menaquinone (Vitamin K2) Unchanged metoprolol (metoprolol 50 mg ER Tab) 1 Tablets By Mouth Every day Unchanged Misc Prescription (spacer) See instructions Bronchitis Sinusitis BMI 23.0-23.9, adult please dispense an adult mdi spacer chamber Unchanged montelukast (Singulair 10 mg Tab) 1 Tablets By Mouth Once a day (in the evening) Allergies Unchanged multivitamin with minerals (Elderberry Gummies with Vitamin C and Zinc) 1 tablet Chewed Every day Unchanged nitroglycerin (nitroglycerin 0.4 mg sublingual Tab) 1 Tablets Sublingual Every 5 minutes as needed for for chest pain Chest pain Unchanged Non-Formulary Medication (H-HTP 100 mg) See instructions 5-HTP 100mg (Neurotransmitter Support). For Depression Unchanged Non-Formulary Medication (NAC Detox Regulators) By Mouth Every day Selenium 500 mcg, Molybdenum 50 mcg, and N-Acetylcysteine 600 mg Unchanged Non-Formulary Medication (Nitric Oxide Foundation) 2 Tablets By Mouth Every day Vitamin C 290 mg, Thiamin 90mg, B12 200 mcg, Magnesium 75 mg, Potassium 189 mg, 500mg (postassium nitrate, beet root extract and fermented beet root powder). For Circulatory Support Unchanged Non-Formulary Medication (Serrapeptase 40,000 SPU) By Mouth Every day Calcium 27 mg and Serrapeptase Enzyme 40,000 SPU. support healthy sinuses and breakdown unwanted proteins Unchanged sertraline (sertraline 50 mg Tab) 1 Tablets By Mouth Every day Unchanged thyroid desiccated (Martell Thyroid 30 mg Tab) 1 Tablets By Mouth Every day Marie's thyroiditis Hypothyroidism Duration: 90 Days no Generic substitutions please - Unchanged valsartan (valsartan 160 mg Tab) 90 EA, TAKE 1 TABLET BY MOUTH ONCE DAILY Unchanged zinc acetate (zinc acetate 50 mg oral capsule) 1 Capsules By Mouth Every day on an empty stomach 1 hour before or 2 hours after eating Pharmacy Information [facility]: [address] [place] [id number] [phone] Allergies Citalopram Hydrobromide (Unknown) propranolol (hives) diclofenac sodium (BP rises) CeleXA (Unknown) Voltaren Topical (Hypertension) doxycycline (Yeast infection) hydroCHLOROthiazide (Electrolyte disturbance) lisinopril (Unknown) Problems Ongoing - (more content not included)... Normal [facility] Family Medicine Office/Clini c Noteon 03-22-2025 Family Medicine Office/Clinic Note Family Medicine Office/Clinic Note Chief Complaint SOB HPI Staff Pt is here to discuss other options for SOB. Pt would like a referral to pulmonology. -Pt states she still having issues with back pain ever since she fell History of Present Illness Kermit is a 75 year old female who presents for SOB. She is experiencing SOB with exertion - such as yard work, walking, and basic ADLs. When she is sitting she is fine, but when she gets worked up she feels like she cannot catch her breath. She had bronchitis and pneumonia within the last 6-8 months. She fell in January 2025 and broke 3 ribs on the right hand side - she feels like the ribs are better and she is not experiencing rib pain. Ever since the fall, she feels more SOB and her upper back is aching and quite bothersome. 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 She is planning to see her chiropractor Adriana Willis soon for an eval. She is using muscle relaxers for her back pain and this is usually helpful but they cause constipation. She is not yet interested in going to pain management. I did review her MRI of the cervical spine from 2023 and she does have some areas of mild-mod narrowing and degenerative changes. She is not interested in PT at this time either. Review of Systems PHQ Score Initial Depression Screen Score: 1 SCORE Physical Exam Vitals & Measurements HR: 72(Peripheral) BP: 138/90 SpO2: 98% HT: 61 in HT: 154 cm WT: 123.9 lb WT: 56.2 kg BMI: 23.7 lungs: diminished, clear cervical spine: some paraspinal muscle tightness and kyphosis. Assessment/Plan 1. Shortness of breath, (R06.02: Shortness of breath)SOB (shortness of breath) referral to pulm instructed to get pulse ox and monitor the O2 at home [place] [facility] [place] 2. Cervical spine pain (M54.2: Cervicalgia) consider PT start mobic 15mg daily consider pain management continue muscle relaxer as needed Ordered: meloxicam, 15 mg = 1 tab(s), Oral, Daily, # 30 tab(s), Refills(s) 5, Pharmacy: [facility], 154, cm, 03/22/25 11:53:00 EDT, Height/Length Dosing, 56.2, kg, 03/22/25 11:53:00 EDT, Weight Dosing Follow-up No qualifying data available Problem List/Past Medical History Ongoing Abdominal pain Allergies Atypical migraine Benign essential hypertension Broken ribs Bulging of cervical intervertebral disc Cervical radiculitis Cervical spine pain Chest pain Chronic sinusitis with recurrent bronchitis Family history of colon cancer Fatigue Hand numbness Marie's thyroiditis Hernia, ventral Hx of colonic polyp Hyperlipidemia, mild Hyperplastic polyp of descending colon Hypothyroidism Impetigo Left shoulder pain Mild CAD Mild recurrent major depression Muscle spasm Nasal septal ulcer Occipital neuralgia Osteoporosis Otitis media of left ear Personal history of breast cancer Pneumonia involving right lung Positive YOSELIN (antinuclear antibody) Post-nasal drip Postmenopause atrophic vaginitis Short-term memory loss Shortness of breath Situational insomnia Vaginal candidosis Varicose veins of [...] Ultrasonography guided biopsy of right breast. Medications Martell Thyroid 30 mg Tab, 30 mg= 1 tab(s), Oral, Daily, 3 refills aspirin 81 mg Chew Tab, Chewed, Daily cyclobenzaprine 5 mg Tab, 5 mg= 1 tab(s), Oral, TID, 1 refills Elderberry Gummies with Vitamin C and Zinc, 1 tablet, Chewed, Daily Garlic, See Instructions H-HTP 100 mg, See Instructions iodine lidocaine Top 5% film Patch, 1 patch(es), Topical, Daily, 3 refills Lidoderm 5% Patch, 1 patch(es), Topical, Daily magnesium amino acids chelate metoprolol 50 mg ER Tab, 50 mg= 1 tab(s), Oral, Daily Mobic 15 mg Tab, 15 mg= 1 tab(s), Oral, Daily, 5 refills NAC Detox Regulators, Oral, Daily Nitric Oxide Foundation, 2 tab(s), Oral, Daily nitroglycerin 0.4 mg sublingual Tab, 0.4 mg= 1 tab(s), SubLingual, q5min, PRN, 1 refills Serrapeptase 40,000 SPU, Oral, Daily sertraline 50 mg Tab, 50 mg= 1 tab(s), Oral, Daily Singulair 10 mg Tab, 10 mg= 1 tab(s), Oral, qPM, 11 refills spacer, See Instructions, 1 refills valsartan 160 mg Tab Vitamin C 500 mg oral tablet, chewable, 500 mg= 1 tab(s), Chewed, Daily Vitamin K2 zinc acetate 50 mg oral capsule, 50 mg= 1 cap(s), Oral, Daily Allergies Citalopram Hydrobromide (Unknown) propranolol (hives) diclofenac sodium (BP rises) CeleXA (Unknown) Voltaren (more content not included)... Normal [facility] Comment on above: Result Comment: Elec tronically Signed By: FABIOLA AVILES, ZHOU\.br\Date and Time Signed: 03/22/25 12:29 EDT NM Myocardial Spect Rest/Str ess 1 Dayon 02-18-2025 NM Myocardial Spect Rest/Stress 1 Day Exam Date/Time: 02/16/2025 11:26 EDT Reason for Exam: R07.9;Chest pain Report [address] [address] Nuclear Stress Report Name: KERMIT ROSEN Study Date: 02/16/2025 09:24 AM Patient Location: [facility] Ambulatory(s[place] [facility] [place] 1950 (M/d/yyyy) Gender: Female Age: 75 yrs Ethnicity: T Reason For Study: R07.9;Chest pain Ordering Physician: SY WICK Referring Physician: SY WICK Protocol 41765 Pharmacologic Lexiscan stress with Isotope. Study Protocol: One day rest/stress acquisition. Rest Dose Tc99m Cardiolite was administered. Rest Dose: 9.6 mCi IV. Stress Dose Stress Protocol: Lexiscan. Stress Dose: 28.3 mCi IV. Stress Parameters Normal blood pressure response. Stress Symptoms: Dyspnea. ECG Rest Normal ECG. ECG Peak No significant changes from baseline. No ST-T wave changes from baseline. Arrhythmia No arrhythmias. Image Quality Rest Images: Diagnostic in quality. Stress Images: Diagnostic in quality. SPECT Perfusion Normal rest and stress perfusion. Left Ventricle Normal global and regional wall motion in all territories. Report Interpretation Summary Normal global and regional wall motion in all territories. Normal rest and stress perfusion. TID 0.93 FINAL REPORT Dictated: 02/16/2025 9:24 am Juan Morales MD Signed (Electronic Signature): 02/18/2025 4:46 pm Signed by: Juan Morales MD Transcribed by: UNRULY Technologist: OBEY Normal [facility] DHEAon 02-04-2025 DHEA [Mass/Vol] <20 Low 21-402 [facility] Comment on above: Result Comment: This test was developed and its performance characteristics determined by [facility]. It has not been cleared or approved by the Food and Drug Administration. Performed at: [facility] [id number] MD Zack David Performed By: #### 1 [id number] #### [facility] [address] [place] [address] Estrogens Totalon 02-04-2025 Estrogen [Mass/Vol] 86 pg/mL Invalid Interpretation Code 40-244 [facility] Comment on above: Result Comment: Prep ubertal < 40 Female Cycle: 1-10 Days 16 - 328 11-20 Days 34 - 501 21-30 Days 48 - 350 Post-Menopausal 40 - 244 Performed at: [facility] [id number] MD Zack David Performed By: #### 1 [id number] #### [facility] [address] [place] [address] Testost Totalon 02-04-2025 Testosterone [Mass/Vol] ng/dL Low 3-67 F [facility] Comment on above: Result Comment: Perf ormed at: [facility] [id number] PhD Ramila Ackerman Performed By: #### 2 [id number] #### [facility] [address] [place] [address] Ambulatory Visit Summaryon 0 02-03-2025 Ambulatory Visit Summary Ambulatory Visit Summary BETYMIKEYDARVIN Squires :1950 Visit Date:02/03/2025 Ambulatory Visit Instructions Your Diagnosis Chest pain Broken ribs Non-smoker BMI 24.0-24.9, adult Your Care Team Attending Physician - ZHOU FONTANEZ Primary Care Physician - ZHOU FONTANEZ This Is Your Medications List [facility] Prescription (spacer) Non-Formulary Medication (H-HTP 100 mg) Non-Formulary Medication (NAC Detox Regulators) Non-Formulary Medication (Nitric Oxide Foundation) Non-Formulary Medication (Serrapeptase 40,000 SPU) ascorbic acid (Vitamin C 500 mg oral tablet, chewable) aspirin (aspirin 81 mg Chew Tab) cyclobenzaprine (cyclobenzaprine 5 mg Tab) garlic (Garlic) iodine lidocaine topical (Lidoderm 5% Patch) lidocaine topical (lidocaine Top 5% film Patch) magnesium amino acids chelate menaquinone (Vitamin K2) metoprolol (metoprolol 50 mg ER Tab) montelukast (Singulair 10 mg Tab) multivitamin with minerals (Elderberry Gummies with Vitamin C and Zinc) nitroglycerin (nitroglycerin 0.4 mg sublingual Tab) sertraline (sertraline 50 mg Tab) thyroid desiccated (Martell Thyroid 30 mg Tab) valsartan (valsartan 160 mg Tab) zinc acetate (zinc acetate 50 mg oral capsule) Procedures Performed Biopsy of breast (02/02/2021), Lumpectomy of right breast (02/02/2021), Dilation and curettage, Tonsillectomy, Tubal ligation, Ultrasonography guided biopsy of right breast. Discharge Vitals Heart Rate (Peripheral) 74 Blood Pressure 118/68 Height 154 cm Height 61 in Weight 57.8 kg Weight 127.427 lb BMI 24.37 What to do next Scheduled Follow-Up Appointments Friday 8:00 AM EDT Where: [facility] Surgical Services Friday 2:30 PM EDT Where: [facility] [address] [place] [address], [place] [address]- You Need to Complete the Following EC Stress Echo Complete, Transthoracic, 02/03/25, Routine, Order for future visit, Transport Mode: Wheelchair, Reason: Chest pain, Chest pain, pp_set_radiology_subs pecialty, [facility] Myocardial Spect Rest/Stress 1 Day, 02/03/25, Routine, Order for Future Visit, Transport Mode: Wheelchair, Reason: Chest pain, No, pp_set_radiology_subs pecialty, [facility] Medications What How Much When Why Instructions Unchanged ascorbic acid (Vitamin C 500 mg oral tablet, chewable) 1 Tablets Chewed Every day Unchanged aspirin (aspirin 81 mg Chew Tab) Chewed Every day Unchanged cyclobenzaprine (cyclobenzaprine 5 mg Tab) 1 Tablets By Mouth 3 times a day Muscle spasm Unchanged garlic (Garlic) See instructions 1 tab daily OTC Unchanged iodine Unchanged lidocaine topical (lidocaine Top 5% film Patch) 1 Patches Topical Every day Muscle spasm apply 12 hours on and 12 hours off daily Unchanged lidocaine topical (Lidoderm 5% Patch) 1 Patches Topical Every day apply 12 hours on and 12 hours off daily Unchanged magnesium amino acids chelate Unchanged menaquinone (Vitamin K2) Unchanged metoprolol (metoprolol 50 mg ER Tab) 1 Tablets By Mouth Every day Unchanged Misc Prescription (spacer) See instructions Bronchitis Sinusitis BMI 23.0-23.9, adult please dispense an adult mdi spacer chamber Unchanged montelukast (Singulair 10 mg Tab) 1 Tablets By Mouth Once a day (in the evening) Allergies Unchanged multivitamin with minerals (Elderberry Gummies with Vitamin C and Zinc) 1 tablet Chewed Every day Unchanged nitroglycerin (nitroglycerin 0.4 mg sublingual Tab) 1 Tablets Sublingual Every 5 minutes as needed for for chest pain Chest pain Unchanged Non-Formulary Medication (H-HTP 100 mg) See instructions 5-HTP 100mg (Neurotransmitter Support). For Depression Unchanged Non-Formulary Medication (NAC Detox Regulators) By Mouth Every day Selenium 500 mcg, Molybdenum 50 mcg, and N-Acetylcysteine 600 mg Unchanged Non-Formulary Medication (Nitric Oxide Foundation) 2 Tablets By Mouth Every day Vitamin C 290 mg, Thiamin 90mg, B12 200 mcg, Magnesium 75 mg, Potassium 189 mg, 500mg (postassium nitrate, beet root extract and fermented beet root powder). For Circulatory Support Unchanged Non-Formulary Medication (Serrapeptase 40,000 SPU) By Mouth Every day Calcium 27 mg and Serrapeptase Enzyme 40,000 SPU. support healthy sinuses and breakdown unwanted proteins Unchanged sertraline (sertraline 50 mg Tab) 1 Tablets By Mouth Every day Unchanged thyroid desiccated (Martell Thyroid 30 mg Tab) 1 Tablets By Mouth Every day Marie's thyroiditis Hypothyroidism Duration: 90 Days no Generic substitutions please - Unchanged valsartan (valsartan 160 mg Tab) 90 EA, TAKE 1 TABLET BY MOUTH ONCE DAILY Unchanged zinc acetate (zinc acetate 50 mg oral capsule) 1 Capsules By Mouth Every day on an empty stomach 1 hour before or 2 hours after eating Allergies Citalopram Hydrobromide (Unknown) propranolol (hives) diclofenac sodium (BP rises) CeleXA (more content not included)... Normal [facility] Family Medicine Office/Clini c Noteon 02-03-2025 Family Medicine Office/Clinic Note Family Medicine Office/Clinic Note Chief Complaint Shoulder blade pain HPI Staff Pt was here on 01/19 for an ER f/u due to falling on the ice on 01/06. Pt also had an addition CT done because felt like something was missed CT was normal. Given prednisone and muscle relaxer to help with pain. -burning and aching in shoulder blades History of Present Illness Kermit is a 75 year old female who presents for a follow up. She broke her ribs recently, and the last time I saw her she was complaining of abdominal pain and she was worried a rib had damaged an organ. I did an abdominal CT which was completely benign except broken ribs. Today she is complaining of pain in her back between the shoulder blades. She is having intermittent burning and intense pain between the shoulder blades. She does have a history of chest pain and she sees Dr Pisano who manages per BP. Dr Pisano wanted her on a statin, however, she is refusing statin therapy. She had a stress test in 2021 and a cath which showed a 40% blockage somewhere (couldn't find the documents for review) - all according to patient. She was on oxycodone per the ED but she stopped taking it and does not need more. She is concerned about her pain being related to her heart. I am willing to order a stress test, and I would like her to follow with cardiology. She is refusing PT, but she will take her muscle relaxer as needed. Staff HPI reviewed and accurate. Review of Systems PHQ Score Initial Depression Screen Score: 0 SCORE Physical Exam Vitals & Measurements HR: 74(Peripheral) BP: 118/68 SpO2: 98% HT: 61 in HT: 154 cm WT: 57.8 kg WT: 127.427 lb BMI: 24.37 paraspinal muscle spasm to upper back Assessment/Plan 1. Chest pain (R07.9: Chest pain, unspecified) stress test ordered fu with Dr Pisano Ordered: EC Stress Echo Complete, Transthoracic NM Myocardial Spect Rest/Stress 1 Day 2. Broken ribs (S22.49XA: Multiple fractures of ribs, unspecified side, initial encounter for closed fracture) continue to monitor tizanidine as needed 3. Non-smoker (Z78.9: Other specified health status) stable 4. BMI 24.0-24.9, adult (Z68.24: Body mass index [BMI] 24.0-24.9, adult) stable Ordered: Body Mass Index (BMI) documented 3008F Current tobacco non-user 1036F Depression Screening Negative 3352F Fall Risk Screen 2 or more w/injury 1100F Influenza immunization status assessed 1030F Most recent diastolic blood pressure <80 mm Hg 3078F Systolic BP <130 mm Hg (Most Recent) 3074F Follow-up No qualifying data available Problem List/Past Medical History Ongoing Abdominal pain Allergies Atypical migraine Benign essential hypertension Broken ribs Bulging of cervical intervertebral disc Cervical radiculitis Chest pain Chronic sinusitis with recurrent bronchitis Family history of colon cancer Fatigue Hand numbness Marie's thyroiditis Hernia, ventral Hx of colonic polyp Hyperlipidemia, mild Hyperplastic polyp of descending colon Hypothyroidism Impetigo Left shoulder pain Mild CAD Mild recurrent major depression Muscle spasm Nasal septal ulcer Occipital neuralgia Osteoporosis Otitis [...] Ultrasonography guided biopsy of right breast. Medications Martell Thyroid 30 mg Tab, 30 mg= 1 tab(s), Oral, Daily, 3 refills aspirin 81 mg Chew Tab, Chewed, Daily cyclobenzaprine 5 mg Tab, 5 mg= 1 tab(s), Oral, TID, 1 refills Elderberry Gummies with Vitamin C and Zinc, 1 tablet, Chewed, Daily Garlic, See Instructions H-HTP 100 mg, See Instructions iodine lidocaine Top 5% film Patch, 1 patch(es), Topical, Daily, 3 refills Lidoderm 5% Patch, 1 patch(es), Topical, Daily magnesium amino acids chelate metoprolol 50 mg ER Tab, 50 mg= 1 tab(s), Oral, Daily NAC Detox Regulators, Oral, Daily Nitric Oxide Foundation, 2 tab(s), Oral, Daily nitroglycerin 0.4 mg sublingual Tab, 0.4 mg= 1 tab(s), SubLingual, q5min, PRN, 1 refills Serrapeptase 40,000 SPU, Oral, Daily sertraline 50 mg Tab, 50 mg= 1 tab(s), Oral, Daily Singulair 10 mg Tab, 10 mg= 1 tab(s), Oral, qPM, 11 refills spacer, See Instructions, 1 refills valsartan 160 mg Tab Vitamin C 500 mg oral tablet, chewable, 500 mg= 1 t (more content not included)... [facility] Comment on above: Result Comment: Elec tronically Signed By: FABIOLA AVILES, ZHOU\.br\Date and Time Signed: 02/03/25 13:36 EST Provider Letteron 02-03-2025 Provider Letter Provider Letter [address] [facility] [address] [place] [address] February 03, 2025 KERMIT ROSEN [address] [place] [address] : 1950 To Whom It May Concern, Please excuse above patient from work. Date of Illness: From: 01/06/2025 To: 02/21/2025 May Return to Work On: 02/21/2025 Restrictions: none Comments: none Sincerely, Sy Wick NP [facility] CT Abdomen/Pelvis w/ Contras ton 02-02-2025 CT Abdomen/Pelvis w/ Contrast Exam Date/Time: 02/02/2025 12:32 EST Reason for Exam: s22.49XA;Pain Report IMPRESSION: No acute process in the abdomen/pelvis. HISTORY: Fall. Broken ribs. Abdominal pain. TECHNIQUE: CT of the abdomen and pelvis was performed using standard technique with intravenous contrast, scanning from just above the dome of the diaphragm to the symphysis pubis. Including delayed images through the kidneys. Including sagittal and coronal reconstructions on both phases. Unless otherwise stated, incidental findings identified in this report do not require routine follow-up imaging. All CT scans at this facility use dose modulation, iterative reconstruction, and/or weight based dosing when appropriate to reduce radiation dose to as low as reasonably achievable. COMPARISON: CT 08/17/2018. CT chest 01/06/2025. RESULT: Liver: No mass or lesion. Biliary: Gallbladder unremarkable. No biliary ductal dilation. Pancreas: No mass or duct dilation. Spleen: No mass or splenomegaly. Adrenals: No mass. Kidneys: No calculus or hydronephrosis. No suspicious renal lesions. Delayed phase images unremarkable. GI tract: No bowel dilation. Diverticulosis without evidence for acute diverticulitis. Majority of the colon is decompressed and not well evaluated. Enteric contrast reaches the rectal region. Lymph nodes: No abdominal or pelvic lymphadenopathy. Mesentery/Peritoneum/ Retroperitoneum: No ascites or mass. Vasculature: The celiac axis and SMA are patent. The portal vein and branches, splenic vein, SMV, and hepatic veins are patent. Moderate arterial atherosclerotic disease without aneurysm. Pelvis: No significant free fluid. Bladder decompressed. Bones: Right lower rib fractures as below. Degenerative changes. Underlying decreased Report bone mineral density. Soft tissues: Unremarkable. Lower thorax: Partially imaged fractures of some right lower ribs, present and better evaluated on the prior CT chest from 01/06/2025. Tech Comments: GFR (mL/min/1/73m2) >60 Contrast: Isovue 300 Contrast amount in ml's: 100.00 Oral contrast amount in ml's: 900.00 Ordering Provider: SY WICK FINAL REPORT Dictated: 02/02/2025 12:41 pm Greg Tierney MD Signed (Electronic Signature): 02/02/2025 12:41 pm Signed by: Greg Tierney MD Transcribed by: EL Technologist: Normal [facility] CBC w/ Auto Diffon Basophils/100 WBC (Bld) 0.6 % Normal 0.0-2.0 [facility] Comment on above: Performed By: #### 2 [id number] #### [facility] [address] [place] [address] Basophils/Leukocytes Auto (Bld) [Pure # fraction] 0.0 E9/L Normal 0.0-0.2 [facility] Comment on above: Performed By: #### 2 [id number] #### [facility] [address] [place] [address] Eosinophils (Bld) [#/Vol] 0.0 E9/L Normal 0.0-0.5 [facility] Comment on above: Performed By: #### 2 [id number] #### [facility] [address] [place] [address] Eosinophils/100 WBC (Bld) 0.1 % Normal 0.0-8.0 [facility] Comment on above: Performed By: #### 2 [id number] #### [facility] [address] [place] [address] Erythrocyte distribution width (RBC) [Ratio] 13.3 % Normal 10.9-14.2 [facility] Comment on above: Performed By: #### 2 [id number] #### [facility] [address] [place] [address] Hematocrit (Bld) [Volume fraction] 41.8 % Normal 34.0-46.0 [facility] Comment on above: Performed By: #### 2 [id number] #### [facility] [address] [place] [address] Hemoglobin (Bld) [Mass/Vol] 14.2 g/dL Normal 12.0-16.0 [facility] Comment on above: Performed By: #### 2 [id number] #### [facility] [address] [place] [address] Lymphocytes (Bld) [#/Vol] 1.7 E9/L Normal 1.0-4.0 [facility] Comment on above: Performed By: #### 2 [id number] #### [facility] [address] [place] [address] Lymphocytes/100 WBC (Bld) 26.7 % Normal 14.0-50.0 [facility] Comment on above: Performed By: #### 2 [id number] #### [facility] [address] [place] [address] MCH (RBC) [Entitic mass] 30.9 pg Normal 27.0-34.0 [facility] Comment on above: Performed By: #### 2 [id number] #### [facility] [address] [place] [address] MCHC (RBC) [Mass/Vol] 34.1 g/dL Normal 31.4-36.0 [facility] Comment on above: Performed By: #### 2 [id number] #### [facility] [address] [place] [address] MCV (RBC) [Entitic vol] 90.6 fL Normal 80.0-100.0 [facility] Comment on above: Performed By: #### 2 [id number] #### [facility] [address] [place] [address] Monocytes (Bld) [#/Vol] 0.4 E9/L Normal 0.2-1.0 [facility] Comment on above: Performed By: #### 2 [id number] #### [facility] [address] [place] [address] Neutrophils (Bld) [#/Vol] 4.3 E9/L Normal 2.0-7.5 [facility] Comment on above: Performed By: #### 2 [id number] #### [facility] [address] [place] [address] Neutrophils/100 WBC (Bld) 66.2 % Normal 36.0-75.0 [facility] Comment on above: Performed By: #### 2 [id number] #### [facility] [address] [place] [address] Platelet mean volume (Bld) [Entitic vol] 9.1 fL Normal 6.4-10.8 [facility] Comment on above: Performed By: #### 2 [id number] #### [facility] [address] [place] [address] Platelets (Bld) [#/Vol] 285.0 E9/L Normal 150.0-500.0 [facility] Comment on above: Performed By: #### 2 [id number] #### [facility] [address] [place] [address] RBC (Bld) [#/Vol] 4.6 E12/L Normal 4.3-5.9 [facility] Comment on above: Performed By: #### 2 [id number] #### [facility] [address] [place] [address] WBC corrected for nucl RBC Auto (Bld) [#/Vol] 6.5 E9/L Normal 4.0-11.0 [facility] Comment on above: Performed By: #### 2 [id number] #### [facility] [address] [place] [address] CHEMISTRYOrdered By: SYSTEM SYSTEM on 01-28-2025 25-hydroxyvitamin D3 [Mass/Vol] 61.5 ng/mL Normal 30.0 - 100.0 ng/mL [facility] Albumin [Mass/Vol] 4.4 g/dL Normal 3.3 - 5.0 gm/dL [facility] Albumin/Globulin [Mass ratio] 1.6 {ratio} Normal 1.1 - 2.2 [facility] ALP [Catalytic activity/Vol] 101 [iU]/d High 21 - 98 Int._Unit/L [facility] ALT No additional P-5'-P [Catalytic activity/Vol] 12 [iU]/d Normal 6 - 46 Int._Unit/L [facility] Anion gap [Moles/Vol] 10 mmol/L Normal 6 - 16 mEq/L R [facility] Chem AST [Catalytic activity/Vol] 18 [iU]/d Normal 5 - 43 Int._Unit/L [facility] Bilirubin [Mass/Vol] 0.6 mg/dL Normal 0.0 - 1 .1 mg/dL [facility] Calcium [Mass/Vol] 10.0 mg/dL Normal 8.9 - 11. 1 mg/dL [facility] Chloride [Moles/Vol] 107 mmol/L Normal 101 - 1 11 mmol/L [facility] Cholesterol [Mass/Vol] 206 mg/dL High 120 - 200 mg/dL [facility] Cholesterol in HDL [Mass/Vol] 64 mg/dL Invalid Interpretation Code [facility] Comment on above: Result Comment: '>= 60 LOW RISK' '<= 40 HIGH RISK' Cholesterol in LDL [Mass/Vol] 132 mg/dL High <=129mg/dL [facility] Cholesterol in VLDL [Mass/Vol] 20 mg/dL Normal 7 - 40 mg/dL [facility] CO2 [Moles/Vol] 28 mmol/L Normal 21 - 31 mmol/L [facility] Creatinine [Mass/Vol] 0.6 mg/dL Normal 0.5 - 1.3 mg/dL [facility] eGFR 93 mL/min/1.73 m2 Normal >=59mL/min /1 .73 m2 [facility] Globulin (S) [Mass/Vol] 2.8 g/dL Normal 1.4 - 4.0 gm/dL [facility] Glucose [Mass/Vol] 99 mg/dL Normal 55 - 199 mg/dL [facility] Potassium [Moles/Vol] 4.5 mmol/L Normal 3.5 - 5.3 mmol/L [facility] Progesterone Lvl 0.82 ng/mL Invalid Interpretation Code [facility] Comment on above: Result Comment: 'F N ON FOLLICULAR = 0.10 - 0.60' 'LUTEAL = 3.00 - 17.5' 'MIDLUTEAL = 3.30 - 18.6' 'POST-MENOPAUSE = 0.10 - 0.40' '-FIRST TRIMESTER = 8.30 - 66.5' 'SECOND TRIMESTER = 18.9 - 66.1' 'THIRD TRIMESTER = 35.8 - 312.4' 'MALES = 0.14 - 2.06' Protein [Mass/Vol] 7.2 g/dL Normal 6.0 - 7.8 gm/dL [facility] Sodium [Moles/Vol] 140 mmol/L Normal 135 - 145 mmol/L [facility] Triglyceride [Mass/Vol] 98 mg/dL Normal <=149mg/dL R [facility] TSH Qn 2.33 m[IU]/L Normal 0.34 - 5.60 mcIU/mL [facility] Urea nitrogen [Mass/Vol] 24 mg/dL High 5 - 21 mg/dL [facility] Urea nitrogen/Creatinine [Mass ratio] 40 mg/mg High 10 - 20 [facility] CMPon 01-28-2025 Albumin [Mass/Vol] 4.4 g/dL Normal 3.3-5.0 [facility] Comment on above: Performed By: #### 2 [id number] #### [facility] [address] [place] [address] Albumin/Globulin (S) [Mass conc ratio] 1.6 Normal 1.1-2.2 [facility] Comment on above: Performed By: #### 2 [id number] #### [facility] [address] [place] [address] ALP [Catalytic activity/Vol] 101 Int._Unit/L High 21-98 [facility] Comment on above: Performed By: #### 2 [id number] #### [facility] [address] [place] [address] ALT No additional P-5'-P [Catalytic activity/Vol] 12 Int._Unit/L Normal 6-46 [facility] Comment on above: Performed By: #### 2 [id number] #### [facility] [address] [place] [address] Anion gap [Moles/Vol] 10 mmol/L Normal 6-16 [facility] Comment on above: Performed By: #### 2 [id number] #### [facility] [address] [place] [address] AST [Catalytic activity/Vol] 18 Int._Unit/L Normal 5-43 [facility] Comment on above: Performed By: #### 2 533303 #### [facility] [address] [place] [address] Bilirubin [Mass/Vol] 0.6 mg/dL Normal 0.0-1.1 [facility] Comment on above: Performed By: #### 2 [id number] #### [facility] [address] [place] [address] Calcium [Mass/Vol] 10.0 mg/dL Normal 8.9-11.1 [facility] Comment on above: Performed By: #### 2 [id number] #### [facility] [address] [place] [address] Chloride [Moles/Vol] 107 mmol/L Normal 101-111 [facility] Comment on above: Performed By: #### 2 [id number] #### [facility] [address] [place] [address] CO2 [Moles/Vol] 28 mmol/L Normal 21-31 [facility] Comment on above: Performed By: #### 2 [id number] #### [facility] [address] [place] [address] Creatinine [Mass/Vol] 0.6 mg/dL Normal 0.5-1.3 [facility] Comment on above: Performed By: #### 2 626687 #### [facility] [address] [place] [address] Globulin (S) [Mass/Vol] 2.8 g/dL Normal 1.4-4.0 F [facility] Comment on above: Performed By: #### 2 [id number] #### [facility] [address] [place] [address] Glucose [Mass/Vol] 99 mg/dL Normal 55-199 [facility] Comment on above: Performed By: #### 2 [id number] #### [facility] [address] [place] [address] Potassium [Moles/Vol] 4.5 mmol/L Normal 3.5-5.3 [facility] Comment on above: Performed By: #### 2 062953 #### [facility] [address] [place] [address] Protein [Mass/Vol] 7.2 g/dL Normal 6.0-7.8 [facility] Comment on above: Performed By: #### 2 [id number] #### [facility] [address] [place] [address] Sodium [Moles/Vol] 140 mmol/L Normal 135-145 [facility] Comment on above: Performed By: #### 2 [id number] #### [facility] [address] [place] [address] Urea nitrogen [Mass/Vol] 24 mg/dL High 5-21 [facility] Comment on above: Performed By: #### 2 [id number] #### [facility] [address] [place] [address] Urea nitrogen/Creatinine [Mass ratio] 40 No Units High 10-20 [facility] Comment on above: Performed By: #### 2 [id number] #### [facility] [address] [place] [address] HEMATOLOGYOrdered By: SYSTEM SYSTEM on 01-28-2025 Basophils/100 WBC (Bld) 0.6 % Normal 0.0 - 2.0 % [facility] Basophils/Leukocytes Auto (Bld) [Pure # fraction] 0.0 E9/L Normal 0.0 - 0.2 E9/L [facility] Eosinophils (Bld) [#/Vol] 0.0 E9/L Normal 0.0 - 0.5 E9/L [facility] Eosinophils/100 WBC (Bld) 0.1 % Normal 0.0 - 8.0 % [facility] Erythrocyte distribution width (RBC) [Ratio] 13.3 % Normal 10.9 - 14.2 % [facility] Hematocrit (Bld) [Volume fraction] 41.8 % Normal 34.0 - 46.0 % [facility] Hemoglobin (Bld) [Mass/Vol] 14.2 g/dL Normal 12.0 - 16.0 gm/dL [facility] Lymphocytes (Bld) [#/Vol] 1.7 E9/L Normal 1.0 - 4.0 E9/L [facility] Lymphocytes/100 WBC (Bld) 26.7 % Normal 14.0 - 50.0 % [facility] MCH (RBC) [Entitic mass] 30.9 pg Normal 27.0 - 34.0 pg [facility] MCHC (RBC) [Mass/Vol] 34.1 g/dL Normal 31.4 - 36.0 gm/dL [facility] MCV (RBC) [Entitic vol] 90.6 fL Normal 80.0 - 100.0 fL [facility] Monocytes (Bld) [#/Vol] 0.4 E9/L Normal 0.2 - 1.0 E9/L [facility] Monocytes/100 WBC (Bld) 6.4 % Normal 4.0 - 14.0 % [facility] Neutrophils (Bld) [#/Vol] 4.3 E9/L Normal 2.0 - 7.5 E9/L [facility] Neutrophils/100 WBC (Bld) 66.2 % Normal 36.0 - 75.0 % [facility] Platelet mean volume (Bld) [Entitic vol] 9.1 fL Normal 6.4 - 10.8 fL [facility] Platelets (Bld) [#/Vol] 285.0 E9/L Normal 150. 0 - 500.0 E9/L [facility] RBC (Bld) [#/Vol] 4.6 E12/L Normal 4.3 - 5.9 E12/L [facility] WBC corrected for nucl RBC Auto (Bld) [#/Vol] 6.5 E9/L Normal 4.0 - 11.0 E9/L [facility] Lipid Panelon 01-28-2025 Cholesterol [Mass/Vol] 206 mg/dL High 120-200 [facility] Comment on above: Performed By: #### 2 [id number] #### [facility] [address] [place] [address] Cholesterol in HDL [Mass/Vol] 64 mg/dL Invalid Interpretation Code [facility] Comment on above: Result Comment: '>= 60 LOW RISK' '<= 40 HIGH RISK' Performed By: #### 2 [id number] #### [facility] [address] [place] [address] Cholesterol in LDL [Mass/Vol] 132 mg/dL High <=129 [facility] Comment on above: Performed By: #### 2 [id number] #### [facility] Laboratory [address] [place] [address] Cholesterol in VLDL [Mass/Vol] 20 mg/dL Normal 7-40 [facility] Comment on above: Performed By: #### 2 [id number] #### [facility] [address] [place] [address] Triglyceride [Mass/Vol] 98 mg/dL Normal <=149 [facility] Comment on above: Performed By: #### 2 [id number] #### [facility] [address] [place] [address] Progesteroneon 01-28-2025 Progesterone Lvl 0.82 ng/mL Invalid Interpretation Code [facility] Comment on above: Result Comment: 'F N ON FOLLICULAR = 0.10 - 0.60' 'LUTEAL = 3.00 - 17.5' 'MIDLUTEAL = 3.30 - 18.6' 'POST-MENOPAUSE = 0.10 - 0.40' '-FIRST TRIMESTER = 8.30 - 66.5' 'SECOND TRIMESTER = 18.9 - 66.1' 'THIRD TRIMESTER = 35.8 - 312.4' 'MALES = 0.14 - 2.06' Performed By: #### 2 [id number] #### [facility] [address] [place] [address] TSH With T4fr Reflexon 01-28 TSH Qn 2.33 m[IU]/L Normal 0.34-5.60 [facility] Comment on above: Performed By: #### 1 [id number] #### [facility] [address] [place] [address] Vitamin D 25 Hydroxyon 01-28 25-hydroxyvitamin D3 [Mass/Vol] 61.5 ng/mL Normal 30.0-100.0 [facility] Comment on above: Performed By: #### 5 [id number] #### [facility] [address] [place] [address] eGFRon 01-28-2025 eGFR 93 mL/min/1.73 m2 Normal >=59 [facility] Comment on above: Performed By: #### 1 [id number] #### [facility] Laboratory [address] [place] [address] Family Medicine Office/Clini c Noteon 01-19-2025 Family Medicine Office/Clinic Note Family Medicine Office/Clinic Note Chief Complaint ER f/u HPI Staff ER [place]up: [place] [place]:01/06 Symptoms the patient presented with: upper back, shoulder, bilateral rib pain Symptom onset/injury onset: slipped and fell on the ice Testing Performed:xray, CT Current concerns: Pt states the first time she sneezed with her ribs broke she felt like something on the right side in her back pushed up to abdomen was wondering if she can get imaging done because feels like something isn't right. History of Present Illness Kermit is 75 year old female who presents s/p ED visit. She fell outside at her house and ended up breaking her 07/10/11 ribs on the right side. She was on Oxycodone for a few days for the pain and has since stopped. She continues with some rib pain - I applied some KT tape in the office to help lightly splint the area. She is going to get some KT tape OTC for her ribs PRN. I sent in a medrol dose pack and a muscle relaxer for her intermittent pain. Additionally, she sneezed recently and then started with right lower quad abdominal pain. She is worried something was missed because they didn't do abdominal imaging in the ED. I ordered an abd CT to assess for trauma. Staff HPI reviewed and accurate. Review of Systems PHQ Score Initial Depression Screen Score: 0 SCORE Physical Exam Vitals & Measurements HR: 64(Peripheral) BP: 120/82 SpO2: 100% HT: 61 in HT: 154 cm WT: 57.2 kg WT: 126.104 lb BMI: 24.12 right lower rib pain radiating into back right lower abdominal quad: no edema, tenderness with palpation Assessment/Plan 1. Abdominal pain (R10.9: Unspecified abdominal pain) CT abd fu 1-2 weeks Ordered: CT Abdomen/Pelvis w/ Contrast 2. Broken ribs (S22.49XA: Multiple fractures of ribs, unspecified side, initial encounter for closed fracture) KT tape as needed lidocaine patches as needed medrol as needed Ordered: methylPREDNISolone, = 1 packet(s), Oral, As Directed, as directed on package labeling, X 6 day(s), # 21 tab(s), Refills(s) 0, Pharmacy: [facility], 154, cm, 01/19/25 13:51:00 EST, Height/Length Dosing, 57.2, kg, 01/19/25 13:51:00 EST, Weight Dosing CT Abdomen/Pelvis w/ Contrast 3. Muscle spasm, (M62.838: Other muscle spasm)Muscle spasm cyclobenz prn Ordered: cyclobenzaprine, 5 mg = 1 tab(s), Oral, TID, # 30 tab(s), Refills(s) 1, Pharmacy: [facility] 1985, 154, cm, 01/19/25 13:51:00 EST, Height/Length Dosing, 57.2, kg, 01/19/25 13:51:00 EST, Weight Dosing lidocaine topical, 1 patch(es), Topical, Daily, 30 patch(es), Refill(s) 3, apply 12 hours on and 12 hours off daily, [facility], 154, cm, 01/19/25 13:51:00 EST, Height/Length Dosing, 57.2, kg, 01/19/25 13:51:00 EST, Weight Dosing methylPREDNISolone, = 1 packet(s), Oral, As Directed, as directed on package labeling, X 6 day(s), # 21 tab(s), Refills(s) 0, Pharmacy: [facility], 154, cm, 01/19/25 13:51:00 EST, Height/Length Dosing, 57.2, kg, 01/19/25 13:51:00 EST, Weight Dosing CT Abdomen/Pelvis w/ Contrast Follow-up No qualifying data available Problem List/Past Medical History Ongoing Abdominal pain Allergies Atypical migraine Benign essential hypertension Broken ribs Bulging of cervical intervertebral disc Cervical radiculitis Chronic sinusitis with recurrent bronchitis Family history of colon cancer Fatigue Hand numbness Marie's thyroiditis Hernia, ventral Hx of colonic polyp Hyperlipidemia, mild Hyperplastic polyp of descending colon Hypothyroidism Impetigo Left shoulder pain Mild CAD Mild recurrent major depression Muscle spasm Nasal septal ulcer Occipital neuralgia Osteoporosis Otitis [...] Ultrasonography guided biopsy of right breast. Medications Martell Thyroid 30 mg Tab, 30 mg= 1 tab(s), Oral, Daily, 3 refills aspirin 81 mg Chew Tab, Chewed, Daily cyclobenzaprine 5 mg Tab, 5 mg= 1 tab(s), Oral, TID, 1 refills Elderberry Gummies with Vitamin C and Zinc, 1 tablet, Chewed, Daily Garlic, See Instructions H-HTP 100 mg, See Instructions iodine lidocaine Top 5% film Patch, 1 patch(es), Topical, Daily, 3 refills Lidoderm 5% Patch, 1 patch(es), Topical, Daily magnesi (more content not included)... Normal [facility] Comment on above: Result Comment: Elec tronically Signed By: FABIOLA AVILES, ZHOU\.br\Date and Time Signed: 01/19/25 14:42 EST Provider Letteron 01-11-2025 Provider Letter Provider Letter January 11, 2025 To Whom It May Concern, Please excuse above patient from work. Date of Illness: From: 01/06/2025 To: 02/03/2025 May Return to Work On: 02/04/2025 Restrictions: N/A Comments: Please excuse patient from work from 01/06/2025-02/03/2025 due to medical condition. If you have any questions please call the office at [phone]. Sincerely, Meme Carrington Normal [facility] CT Chest w/o Contraston 02-0 CT Chest w/o Contrast Exam Date/Time: 01/06/2025 08:07 EST Reason for Exam: CHEST TRAUMA, MOD-SEVERE;Trauma Report IMPRESSION: ACUTE RIGHT 8TH, 10TH, AND 11TH RIB FRACTURES. PROBABLE MILD DEPENDENT ATELECTASIS ON THE RIGHT.. EXAM: CT Chest w/o Contrast DATE: 01/06/2025 7:46 AM CLINICAL HISTORY: Trauma, CHEST TRAUMA, MOD-SEVERE. COMPARISON: CT abdomen and pelvis 08/07/2018. TECHNIQUE: Spiral imaging was obtained of the chest without contrast. All CT scans at this facility use dose modulation, iterative reconstruction, and/or weight based dosing when appropriate to reduce radiation dose to as low as reasonably achievable. Unless otherwise stated, incidental findings identified in this report do not require routine follow-up imaging. FINDINGS: Lungs and pleura: Mild dependent groundglass opacity right lung most consistent with dependent atelectasis. No focal consolidation, significant pleural effusion, or pneumothorax. Mediastinum and lymph nodes: No pathologically enlarged mediastinal, hilar, or axillary lymph nodes. Heart: Not enlarged. Coronary artery calcifications are present. No significant pericardial effusion. Thoracic aorta: Normal in caliber with mild calcified atherosclerotic plaquing. Pulmonary arteries: Normal in caliber. Thyroid: Unremarkable. Esophagus: Unremarkable. Musculoskeletal: Minimally displaced acute posteromedial right 10th and 11th rib fractures and nondisplaced posterolateral right eighth rib fracture. No segmentation. Probable chronic healed fracture deformity of the right third through ninth anterior ribs. Upper abdomen: Noncontributory. Report Ordering Provider: Forrest Franks FINAL REPORT Dictated: 01/06/2025 9:09 am Daljit Colunga MD Signed (Electronic Signature): 01/06/2025 9:09 am Signed by: Daljit Colunga MD Transcribed by: EL Technologist: TIMBO [facility] CT Head or Brain w/o Contras ton 01-06-2025 CT Head or Brain w/o Contrast Exam Date/Time: 01/06/2025 08:06 EST Reason for Exam: HEAD TRAUMA, MOD-SEVERE;Other (please specify) Report IMPRESSION: NO ACUTE INTRACRANIAL PROCESS IDENTIFIED. EXAM: CT Head or Brain w/o Contrast DATE: 01/06/2025 7:46 AM CLINICAL HISTORY: HEAD TRAUMA, MOD-SEVERE. COMPARISON: Head CT 12/04/2020 and head MRI 01/22/2024. TECHNIQUE: Routine. All CT scans at this facility use dose modulation, iterative reconstruction, and/or weight based dosing when appropriate to reduce radiation dose to as low as reasonably achievable. FINDINGS: There is no intracranial hemorrhage, mass effect, midline shift, extra-axial collection, evidence of hydrocephalus, skull fracture, or a recent ischemic infarct identified. Mild age-related volume loss and chronic white matter changes are again noted. The mastoid air cells and visualized paranasal sinuses are essentially clear. 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 COMPARISON: Cervical spine MRI 01/21/2024. TECHNIQUE: Spiral unenhanced imaging was obtained of the cervical spine, with routine reconstructions performed. All CT scans at this facility use dose modulation, iterative reconstruction, and/or weight based dosing when appropriate to reduce radiation dose to as low as reasonably achievable. FINDINGS: The spine is visualized from the craniovertebral junction through the T2-T3 level. There is no acute fracture, dislocation, or acute paraspinal soft tissue abnormalities identified. A mild chronic compression fracture of the inferior endplate of T3 and mild degenerative changes are present. Ordering Provider: Forrest Franks FINAL REPORT Dictated: 01/06/2025 8:38 am Daljit Colunga MD Signed (Electronic Signature): 01/06/2025 8:38 am Signed by: Daljit Colunga MD Transcribed by: EL Technologist: TIMBO [facility]dz [facility] ED Clinical Summaryon 2024 ED Clinical Summary ED Clinical Summary [address] [address] ED Clinical Summary Person Information Name: KERMIT ROSEN [facility] Age: 75 Years : 1950 Sex: Female Language: Japanese PCP: ZHOU FONTANEZ Marital Status: Visit Id: Visit Reason: Rib/trunk pain-swelling; Back pain; Shoulder pain-swelling; Closed head injury without LOC; FELL - HIT HEAD Speciality: Acuity: 2 Enc Type: Emergency Med Service: Emergency Arrival: 01/06/2025 07:07:53 Discharge: 01/06/2025 13:05:56 LOS: 000 05:58 Checkin: 01/06/2025 07:07:53 Checkout: 01/06/2025 13:05:56 Dispo Type: Home (Routine DC) EVENTS: Event Name Event Status Request Date/Time Start Date/Time Complete Date/Time Arrive Complete 01/06/2025 07:07:53 01/06/2025 07:07:53 01/06/2025 07:07:53 Document Home Meds Request 01/06/2025 07:07:53 Triage Complete 01/06/2025 07:07:53 01/06/2025 07:16:47 01/06/2025 07:16:47 Bed Assign Complete 01/06/2025 07:10:22 01/06/2025 07:10:22 01/06/2025 07:10:22 Dr Exam Complete 01/06/2025 07:10:22 01/06/2025 07:12:15 01/06/2025 07:12:15 RN Exam Complete 01/06/2025 07:10:22 01/06/2025 07:38:33 01/06/2025 07:38:33 Registration Complete 01/06/2025 07:12:15 01/06/2025 07:25:06 01/06/2025 07:25:06 Reg Complete Request 01/06/2025 07:25:06 Reg Bed Request Complete 01/06/2025 07:25:06 01/06/2025 07:25:06 01/06/2025 07:25:06 Fall Risk Request 01/06/2025 07:38:33 Trauma II Request 01/06/2025 07:41:58 CT Complete 01/06/2025 07:42:17 01/06/2025 07:46:08 01/06/2025 08:07:22 X-Ray Complete 01/06/2025 07:42:28 01/06/2025 08:01:23 01/06/2025 08:11:14 Meds Admin Complete 01/06/2025 07:47:40 01/06/2025 08:15:00 Wet Read Request 01/06/2025 08:11:14 Discharge Complete 01/06/2025 11:43:08 01/06/2025 13:06:00 01/06/2025 13:06:00 Meds Admin Complete 01/06/2025 11:47:04 01/06/2025 12:01:12 Transfer Complete 01/06/2025 13:06:01 01/06/2025 13:06:01 01/06/2025 13:06:01 ADDRESS: [address] [id number] PHYS DOC NOTES: MEDICAL INFORMATION: Prescriptions Given: New Medications [facility], [address] [place], [place] [id number], [phone] lidocaine topical (Lidoderm 5% Patch) 1 Patches Topical every day. apply 12 hours on and 12 hours off daily. Refills: 0. naproxen (naproxen 500 mg Tab) 1 Tablets By Mouth 2 times a day as needed for pain. Refills: 0. oxycodone (oxyCODONE 5 mg Cap) 1 Capsules By Mouth every 6 hours as needed Pain 8-10 for 3 Days. Refills: 0. Medications to Continue with No Changes Other Medications ascorbic acid (Vitamin C 500 mg oral tablet, chewable) 1 Tablets Chewed every day. aspirin (aspirin 81 mg Chew Tab) Chewed every day. garlic (Garlic) 1 tab daily OTC. iodine magnesium amino acids chelate menaquinone (Vitamin K2) metoprolol (metoprolol 50 mg ER Tab) 1 Tablets By Mouth every day. [facility]) please dispense an adult mdi spacer chamber. Refills: 1. montelukast (Singulair 10 mg Tab) 1 Tablets By Mouth once a day (in the evening). Refills: 11. multivitamin with minerals (Elderberry Gummies with Vitamin C and Zinc) 1 tablet Chewed every day. nitroglycerin (nitroglycerin 0.4 mg sublingual Tab) 1 Tablets Sublingual every 5 minutes as needed for chest pain. Refills: 1. Non-Formulary Medication (H-HTP 100 mg) 5-HTP 100mg (Neurotransmitter Support). For Depression. Non-Formulary Medication (NAC Detox Regulators) By Mouth every day. Selenium 500 mcg, Molybdenum 50 mcg, and N-Acetylcysteine 600 mg. Non-Formulary Medication (Nitric Oxide Foundation) 2 Tablets By Mouth every day. Vitamin C 290 mg, Thiamin 90mg, B12 200 mcg, Magnesium 75 mg, Potassium 189 mg, 500mg (postassium nitrate, beet root extract and fermented beet root powder). For Circulatory Support. Non-Formulary Medication (Serrapeptase 40,000 SPU) By Mouth every day. Calcium 27 mg and Serrapeptase Enzyme 40,000 SPU. support healthy sinuses and breakdown unwanted proteins. sertraline (sertraline 50 mg Tab) 1 Tablets By Mouth every day. thyroid desiccated (Martell Thyroid 30 mg Tab) 1 Tablets By Mouth every day for 90 Days. no Generic substitutions please -. Refills: 3. valsartan (valsartan 160 mg Tab) 90 EA, TAKE 1 TABLET BY MOUTH ONCE DAILY. zinc acetate (zinc acetate 50 mg oral capsule) 1 Capsules By Mouth every day. on an empty stomach 1 hour before or 2 hours after eating. PATIENT EDUCATION INFORMATION: Instructions: Pain Medicine Instructions; Fall Prevention in the Home, Adult; Rib Fracture; Incentive Spirometer Record; How to Use an Incentive Spirometer Follow up: With: Address: When: Iggy Bowser In 3 days 01/09/2025 Comments: Follow-up in trauma clinic With: Address: When: SY WICK In 3 days 01/09/2025 Comments: Call the office of your primary care doctor to arrange for follow-up within the above-stated timeframe. Follow-up with your primary care doctor about this ED visit. You should review your labs, imaging, (more content not included)... Normal [facility] ED Note-Physicianon 01-06-20 ED Note-Physician ED Note-Physician Basic Information Time Seen: Forrest Franks DO 01/06/2025 07:12 Chief Complaint Pt slipped and fell backwards this AM on ice. Pt c/o upper back, shoulder, and bilateral rib pain. denies CP/SOB. Denies abd pain. no loc. no thinners. no neck pain. History of Present Illness 75-year-old female to the emergency department with chief complaint of accidental fall. Patient reports that she was walking out of her house this morning but 1 foot on the porch and slipped on the ice. She reports that she fell backwards. She did hit her head on the ground. She reports some pain in her right elbow, right sided ribs. She denies any neck or back pain. She denies any abdominal pain. She is not on any blood thinners. She is otherwise been at her baseline health. Review of Systems A 10 point review of systems is negative except as noted above. Medical and Surgical History: Reviewed and noted Social history: Lives at home Tobacco: Denies Physical Exam Vitals & Measurements T: 36.5 ???C(Oral) HR: 68(Monitored) RR: 15 BP: 198/87 SpO2: 99% HT: 154 cm WT: 57.2 kg BMI: 24.12 Primary Survey Airway Intact Lung sounds clear and equal bilaterally Pulses full and equal to femoral, radial, and dorsalis pedis bilaterally Heart regular rate and rhythm Skin warm, dry, pink GCS 15 Movement and sensation intact to all extremities Patient Fully Exposed. Right sided posterior lateral rib tenderness. Right elbow abrasion. Secondary Survey General: GCS 15; Alert HEENT: Head atraumatic; Facial bones stable; Eyes normal inspection, Pupils round, 4-2mm blt; No evidence of oropharyngeal trauma; No blood in the nares or septal hematoma; Tympanic Membranes intact, no hemotympanum or drainage Neck: Normal inspection; no midline cervical tenderness; No tracheal deviation; No JVD Resp: Normal breath sounds, no wheeze or crackles; mild right-sided rib tenderness. No crepitus, or subcutaneous emphysema; No visible evidence of chest wall trauma; Chest rise symmetric; No respiratory distress Heart: Heart rate and rhythm regular; Carotid, radial, femoral, dorsalis pedis pulses +2 and equal bilaterally; No Murmurs Abdomen: Soft; Non-tender No ecchymosis or visible wounds to abdominal wall; No distention, guarding, rigidity, or rebound; Pelvis stable, no pain on compression MSK: Abrasion about the right elbow. Some mild discomfort with range of motion of the right elbow. Otherwise all major joints with normal ROM. No deformities. No bony tenderness. No tenderness or step-offs to palpation of thoracic or lumbar spine; No ecchymosis or wounds to upper or lower back Neuro: Alert and oriented; Sensation intact and symmetric bilaterally; muscle strengths symmetric bilaterally in the upper and lower extremities. Skin: Color normal; No rash; Warm; Dry Medical Decision Making 75-year-old female to the emergency department chief complaint of accidental fall. Vital stable, the patient is afebrile. She has right-sided rib tenderness, abrasion of the right elbow. No other traumatic injuries identified. Given her advanced age CT imaging of the head and cervical spine are ordered as she cannot be ruled out by clinical decision rules alone. X-ray imaging of the elbow. Will obtain imaging of the chest as well to evaluate for rib fractures. Morphine and Zofran ordered for symptom control. Patient agrees with this plan. CT head: Negative CT cervical spine: Negative X-ray elbow: No acute finding CT chest: 3 rib fractures on the right, minimally displaced Appropriate incentive spirometer. Patient has strong preference for discharge home. She is able to ambulate without any difficulty. Her vitals are stable. Trauma consult obtained. Agrees with plan for home. Pain control medications. Follow-up in trauma clinic. Incentive for spirometer given. Return precautions were discussed. All questions were answered. The patient was discharged home. Assessment/Plan Abrasion of elbow (S50.319A: Abrasion of unspecified elbow, initial encounter) Accidental fall (W19.XXXA: Unspecified fall, initial encounter) Pain in rib (R07.81: Pleurodynia) Rib fractures (S22.49XA: Multiple fractures of ribs, unspecified side, initial encounter for closed fracture) Orders: acetaminophen-oxycodo ne, 1 tab(s), Tab, Oral, Once, Stop date 01/06/25 11:46:00 EST, STAT, Start date 01/06/25 11:46:00 EST lidocaine topical, 1 patch(es), Topical, Daily, 7 EA, Refill(s) 0, apply 12 hours on and 12 hours off daily, [facility], 154, cm, 01/06/25 7:16:00 EST, Height/Length Dosing, 57.2, kg, 01/06/25 7:16:00 EST, Weight Dosing morphine, 2 mg = 1 mL, Injection, IV Push, Once, Stop date 01/06/25 7:47:00 EST, STAT, Start date 01/06/25 7:47:00 EST, 01/06/25 7:47:00 EST naproxen, 500 mg = 1 tab(s), Oral, BID, PRN for pain, # 20 tab(s), Refills(s) 0, Pharmacy: [facility], 154, cm, 01/06/25 7:16:00 EST, Height/Length Dosing, 57.2, kg, 01/06/25 7:16:00 EST, Weight Dosing ondansetron, 4 mg (more content not included)... Normal [facility] Comment on above: Result Comment: Elec tronically Signed By: Forrest Franks DO\.br\Date and Time Signed: 01/06/25 16:09 EST ED Patient Summaryon 025 ED Patient Summary ED Patient Summary [place] [id number] Patient Discharge Instructions Person Information Name: KERMIT ROSEN Age: 75 Years Arrival Date: 01/06/2025 07:07:53 Discharge Diagnosis: Abrasion of elbow; Accidental fall; Pain in rib Primary Care Physician: ZHOU FONTANEZ Provider Information Primary Provider: Forrest Franks DO Advanced Lubrication Equipment Servicer:None The exam and treatment you received in the Emergency Department were for an urgent problem and are not intended as complete care. It is important that you follow up with a doctor, nurse practitioner, or physician???s marketing assistant manager for ongoing care. If your symptoms become worse or you do not improve as expected and you are unable to reach your usual health care provider, you should return to the Emergency Department. We are available 24 hours a day. KERMIT ROSEN has been given the following list of patient education materials, prescriptions and follow-up instructions: Follow-up Instructions: With: Address: When: Iggy Bowser In 3 days 01/09/2025 Comments: Follow-up in trauma clinic With: Address: When: SY WICK In 3 days 01/09/2025 Comments: Call the office of your primary care doctor to arrange for follow-up within the above-stated timeframe. Follow-up with your primary care doctor about this ED visit. You should review your labs, imaging, and diagnoses from this ED visit with your primary care physician. There are occasionally non-emergent findings that require additional follow-up after your ED visit. If you were prescribed medications you should discuss possible side-effects and drug interactions with your pharmacist. Call 911 or go to the nearest Emergency Department if you develop any new or worsening symptoms. In the event that this physician does not participate in your insurance network, please consult with your insurance company to find a nearby participating provider. Patient Education Materials: Pain Medicine Instructions; Fall Prevention in the Home, Adult; Rib Fracture; Incentive Spirometer Record; How to Use an Incentive Spirometer A MESSAGE TO ALL PATIENTS REGARDING OPIOIDS PRESCRIPTION OPIOIDS: WHAT YOU NEED TO KNOW Prescription opioids can be used to help relieve [id number]-[id number] pain and are often prescribed following a surgery or injury, or for certain health conditions. These medications can be an important part of the treatment but also come with serious risks. It is important to work with your healthcare provider to make sure you are getting the safest, most effective care. WHAT ARE THE RISKS AND SIDE EFFECTS OF OPIOID USE? Prescription opioids carry serious risks of addiction and overdose, especially with prolonged use. An opioid overdose, often marked by slowed breathing, can cause sudden . The use of prescription opioids can have a number of side effects as well, even when taken as directed: ??? Tolerance???meaning you might need to take more of the medication for the same pain relief ??? Physical dependence???meaning you have symptoms of withdrawal when a medication is stopped ??? Increased sensitivity to pain ??? Constipation ??? Nausea, vomiting, and dry mouth ??? Sleepiness and dizziness ??? Confusion ??? Depression ??? Low levels of testosterone that can result in lower sex drive, energy, and strength ??? Itching and sweating RISKS ARE GREATER WITH: ??? History of drug misuse, substance use disorder, or overdose ??? Mental health conditions (such as depression or anxiety) ??? Sleep apnea ??? Older age (65 years and older) ??? Avoid alcohol while taking prescription opioids. Also, unless specifically advised by your health care provider, medications to avoid include: ??? Benzodiazepines (such as Xanax or Valium) ??? Muscle relaxants (such as Soma or Flexeril) ??? Hypnotics (such as Ambien or Lunesta) ??? Other prescription opioids KNOW YOUR OPTIONS Talk to your health care provider about ways to manage your pain that don???t involve prescription opioids. Some of these options may actually work better and have fewer risks and side effects. Options may include: ??? Pain relievers such as acetaminophen, ibuprofen, and naproxen ??? Some medication that are also used for depression or seizures ??? Physical therapy and exercise ??? Cognitive behavioral therapy, a psychological, goal-directed approach, in which patients learn how to modify physical, behavioral, and emotional triggers of pain and stress. IF YOU ARE PRESCRIBED OPIOIDS FOR PAIN: ??? Never take opioids in greater amounts or more often than prescribed. ??? Follow up with your primary health care provider. o Work together to create a plan on how to manage your pain. o Talk about ways to help manage your pain that don???t involve prescription opioids. (more content not included)... [facility] XR Elbow 3+ Views Righton XR Elbow 3+ Views Right Exam Date/Time: 01/06/2025 08:11 EST Reason for Exam: Pain, Traumatic Report IMPRESSION: NO DISPLACED FRACTURE OR SIGNIFICANT POSTTRAUMATIC COMPLICATION IDENTIFIED. EXAM: XR Elbow 3+ Views Right DATE: 01/06/2025 8:01 AM CLINICAL HISTORY: Pain, Traumatic. COMPARISON: None available. TECHNIQUE: AP, lateral, oblique, and olecranon radiographs of the right elbow were obtained. FINDINGS: There is no fracture, sizable joint effusion, significant degenerative changes, dislocation, worrisome bone destruction, radiodense foreign bodies, or other posttraumatic complication identified. Ordering Provider: Forrest Franks FINAL REPORT Dictated: 01/06/2025 1:05 pm Keanu RAY, Daljit Mendez Signed (Electronic Signature): 01/06/2025 1:05 pm Signed by: Daljit Colunga MD Transcribed by: EL Technologist: JOVANI [facility] Ambulatory Visit Summaryon 0 12-29-2024 Ambulatory Visit Summary Ambulatory Visit Summary KERMIT ROSEN :1950 Visit Date:12/29/2024 Ambulatory Visit Instructions Your Diagnosis Postmenopause atrophic vaginitis Non-smoker BMI 23.0-23.9, adult Fatigue Allergies, Allergies Hypothyroidism Chest pain Your Care Team Attending Physician - ZHOU FONTANEZ Primary Care Physician - ZHOU FONTANEZ This Is Your Medications List montelukast (Singulair 10 mg Tab) nitroglycerin (nitroglycerin 0.4 mg sublingual Tab) Contact prescribing physician if questions or concerns Misc Prescription (spacer) Non-Formulary Medication (H-HTP 100 mg) Non-Formulary Medication (NAC Detox Regulators) Non-Formulary Medication (Nitric Oxide Foundation) Non-Formulary Medication (Serrapeptase 40,000 SPU) ascorbic acid (Vitamin C 500 mg oral tablet, chewable) aspirin (aspirin 81 mg Chew Tab) garlic (Garlic) iodine magnesium amino acids chelate menaquinone (Vitamin K2) metoprolol (metoprolol 50 mg ER Tab) multivitamin with minerals (Elderberry Gummies with Vitamin C and Zinc) sertraline (sertraline 50 mg Tab) thyroid desiccated (Martell Thyroid 30 mg Tab) valsartan (valsartan 160 mg Tab) zinc acetate (zinc acetate 50 mg oral capsule) Procedures Performed Biopsy of breast (02/02/2021), Lumpectomy of right breast (02/02/2021), Dilation and curettage, Tonsillectomy, Tubal ligation, Ultrasonography guided biopsy of right breast. Discharge Vitals Heart Rate (Peripheral) 58 Blood Pressure 140/84 Height 154 cm Height 61 in Weight 56.8 kg Weight 125.222 lb BMI 23.95 What to do next Scheduled Follow-Up Appointments Friday 8:00 AM EDT Where: [facility] Surgical Services Friday 2:30 PM EDT Where: [facility] [address], [place] [address]- You Need to Complete the Following CBC w/ Auto Diff, Blood, Routine collect, 12/29/24, Order for future visit, Lab Collect, Non-smoker BMI 23.0-23.9, adult Postmenopause atrophic vaginitis Fatigue, Print Label By Order Location Comprehensive Metabolic Panel, Blood, Routine collect, 12/29/24, Order for future visit, Lab Collect, Non-smoker BMI 23.0-23.9, adult Postmenopause atrophic vaginitis Fatigue, Print Label By Order Location DHEA, Blood, Routine collect, 12/29/24, Order for future visit, Lab Collect, Non-smoker BMI 23.0-23.9, adult Postmenopause atrophic vaginitis Fatigue, Print Label By Order Location Estrogens Total, Blood, Routine collect, 12/29/24, Order for future visit, Lab Collect, Non-smoker BMI 23.0-23.9, adult Postmenopause atrophic vaginitis Fatigue, Print Label By Order Location Lipid Panel, Blood, Routine collect, 12/29/24, Order for future visit, Lab Collect, Non-smoker BMI 23.0-23.9, adult Postmenopause atrophic vaginitis Fatigue, Print Label By Order Location Progesterone Level, Blood, Routine collect, 12/29/24, Order for future visit, Lab Collect, Non-smoker BMI 23.0-23.9, adult Postmenopause atrophic vaginitis Fatigue, Print Label By Order Location Testosterone Level Total, Blood, Routine collect, 12/29/24, Order for future visit, Lab Collect, Non-smoker BMI 23.0-23.9, adult Postmenopause atrophic vaginitis Fatigue, Print Label By Order Location TSH With T4fr Reflex, Blood, Routine collect, 12/29/24, Order for future visit, Lab Collect, Non-smoker BMI 23.0-23.9, adult Postmenopause atrophic vaginitis Fatigue, Print Label By Order Location Vitamin D 25 Hydroxy, Blood, Routine collect, 12/29/24, Order for future visit, Lab Collect, Non-smoker BMI 23.0-23.9, adult Postmenopause atrophic vaginitis Fatigue, Print Label By Order Location Medications What How Much When Why Instructions New montelukast (Singulair 10 mg Tab) 1 Tablets By Mouth Once a day (in the evening) Allergies Refills: 11 Pickup at [facility] New nitroglycerin (nitroglycerin 0.4 mg sublingual Tab) 1 Tablets Sublingual Every 5 minutes as needed for for chest pain Chest pain Refills: [address] [facility] [address] Unchanged ascorbic acid (Vitamin C 500 mg oral tablet, chewable) 1 Tablets Chewed Every day Contact prescribing physician if questions or concerns Unchanged aspirin (aspirin 81 mg Chew Tab) Chewed Every day Contact prescribing physician if [...] concerns Unchanged Misc Prescription (spacer) See instructions Bronc (more content not included)... [facility] Family Medicine Office/Clini c Noteon 12-29-2024 Family Medicine Office/Clinic Note Family Medicine Office/Clinic Note Chief Complaint Establish care HPI Staff Establish Care: History: Any previous diagnosis: See problem list History of seeing any specialist: cardiology, dermatology, gynocology, podiatry When was your last doctors visit: Oct 15 Last provider: Esvin [facility] UTD: Colonoscopy: scheduled for one in May Flu: denies Mammogram: recently done in [place] Pelvic/Pap: 2023 Labs: AMW: 05/26/24 Acute: Current issues/complaints: Pt wants to discuss respiratory issues still has a lingering cough. Also wants to discuss pathology report and opinion on having a total hysterectomy History of Present Illness Kermit is a 74 year old female who presents to establish care. She was seeing Esvin who is no longer practicing here. She sees Dr Avery, cardiology for HTN and a history of CP. She is seeing Dr Marley because she was having vaginal bleeding. They are debating doing hysterectomy. She has vaginal atrophy - I told her to get O-postive vaginal support - a supplement. Additionally, she will talk with Ayaka about this and I gave her an article about this topic. 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 Kermit reports she has had a sough that started in the fall and she has been coughing on and off ever since and she is experiencing sinus drainage. I am going to start Singulair to see if this doesnt help with her allergies/cough. Otherwise, she is dong well and does not need anything else from me. I will see her in a 6-12 months and as needed. I will get some baseline labs on her today - she wants her hormones checked. Staff HPI reviewed and accurate. Review of Systems PHQ Score Initial Depression Screen Score: 0 SCORE Physical Exam Vitals & Measurements HR: 58(Peripheral) BP: 140/84 SpO2: 97% HT: 61 in HT: 154 cm WT: 56.8 kg WT: 125.222 lb BMI: 23.95 General: alert, no acute distress ENMT: TM's clear, oral mucosa moist, no pharyngeal erythema or exudate Cardiovascular: regular rate and rhythm, normal peripheral perfusion Respiratory: Lungs CTA, respirations non labored Extremities: no deformity, no trauma Neurological: oriented x 4, LOC appropriate for age, CN II-XII intact, motor strength equal & normal bilaterally, sensation equal & normal bilaterally, speech normal Assessment/Plan 1. Postmenopause atrophic vaginitis (N95.2: Postmenopausal atrophic vaginitis) labs ordered start o-positive supplement Ordered: CBC w/ Auto Diff Comprehensive Metabolic Panel DHEA Estrogens Total Lipid Panel Progesterone Level Testosterone Level Total TSH With T4fr Reflex Vitamin D 25 Hydroxy 2. Non-smoker (Z78.9: Other specified health status) stable Ordered: CBC w/ Auto Diff Comprehensive Metabolic Panel DHEA Estrogens Total Lipid Panel Progesterone Level Testosterone Level Total TSH With T4fr Reflex Vitamin D 25 Hydroxy 3. BMI 23.0-23.9, adult (Z68.23: Body mass index [BMI] 23.0-23.9, adult) stable Ordered: Body Mass Index (BMI) documented 3008F CBC w/ Auto Diff Comprehensive Metabolic Panel Current tobacco non-user 1036F Depression Screening Negative 3352F DHEA Estrogens Total Falls plan of care documented 0518F Influenza immunization status assessed 1030F Lipid Panel Most recent diastolic blood pressure 80-89 mm Hg 3079F Most recent systolic blood pressure >= 140 mm Hg 3077F Progesterone Level Testosterone Level Total TSH With T4fr Reflex Vitamin D 25 Hydroxy 4. Fatigue (R53.83: Other fatigue) labs Ordered: CBC w/ Auto Diff Comprehensive Metabolic Panel DHEA Estrogens Total Lipid Panel Progesterone Level Testosterone Level Total TSH With T4fr Reflex Vitamin D 25 Hydroxy 5. Allergies, (T78.40XA: Allergy, unspecified, initial encounter)Allergies start singulair Ordered: montelukast, 10 mg = 1 tab(s), Oral, qPM, # 30 tab(s), Refills(s) 11, Pharmacy: [facility], 154, cm, 12/29/24 11:45:00 EST, Height/Length Dosing, 56.8, kg, 12/29/24 11:45:00 EST, Weight Dosing 6. Hypothyroidism (E03.9: Hypothyroidism, unspecified) labs Chest pain (R07.9: Chest pain, unspecified) Ordered: nitroglycerin, 0.4 mg = 1 tab(s), SubLingual, q5min, PRN for chest pain, # 10 tab(s), Refills(s) 1, Pharmacy: [facility] 1985, 154, cm, 12/29/24 11:45:00 EST, Height/Length Dosing, 56.8, kg, 12/29/24 11:45:00 EST, Weight Dosing Follow-up No qualifying data available Problem List/Past Medical History Ongoing Allergies Atypical migraine Benign essential hypertension Bulging of cervical intervertebral disc Cervical radiculitis Chronic sinusitis with recurrent bronchitis Family history of colon cancer Fatigue Hand numbness Marie's thyroiditis Hernia, ventral Hx of colonic polyp Hyperlipidemia, mild Hyperplastic polyp of descending colon Hypothyroidism Impetigo Left (more content not included)... [facility] Comment on above: Result Comment: Elec tronically Signed By: ZHOU FONTANEZ\.reg\Date and Time Signed: 12/29/24 12:33 EST Ambulatory Visit Summaryon 0 12-14-2024 Ambulatory Visit Summary Ambulatory Visit Summary KERMIT ROSEN :1950 Visit Date:12/14/2024 Ambulatory Visit Instructions Your Diagnosis Viral URI with cough Your Care Team Attending Physician - Bradley ATKINSON, Severino M. Primary Care Physician - Vilma John This Is Your Medications List methylPREDNISolone (Medrol Dosepack 4 mg Tab) Contact prescribing physician if questions or concerns Misc Prescription (spacer) Non-Formulary Medication (H-HTP 100 mg) Non-Formulary Medication (NAC Detox Regulators) Non-Formulary Medication (Nitric Oxide Foundation) Non-Formulary Medication (Serrapeptase 40,000 SPU) albuterol (Ventolin HFA 90 mcg/inh Aerosol-Adpt) ascorbic acid (Vitamin C 500 mg oral tablet, chewable) fluconazole (Diflucan 150 mg Tab) garlic (Garlic) iodine ivermectin magnesium amino acids chelate menaquinone (Vitamin K2) metoprolol (metoprolol 50 mg ER Tab) multivitamin with minerals (Elderberry Gummies with Vitamin C and Zinc) mupirocin topical (mupirocin Top 2% Oint) sertraline (sertraline 50 mg Tab) thyroid desiccated (Martell Thyroid 30 mg Tab) valsartan (valsartan 160 mg Tab) zinc acetate (zinc acetate 50 mg oral capsule) Procedures Performed Biopsy of breast (02/02/2021), Lumpectomy of right breast (02/02/2021), Dilation and curettage, Tonsillectomy, Tubal ligation, Ultrasonography guided biopsy of right breast. Discharge Vitals Temperature (Oral) 36.9 ???C Heart Rate (Peripheral) 84 Respiratory Rate 18 Blood Pressure 130/88 Height 154 cm Height 61 in Weight 56 kg Weight 123.459 lb BMI 23.61 What to do next Scheduled Follow-Up Appointments Friday 11:00 AM EST With: ZHOU FONTANEZ Where: [facility] [place] [address] [place] [address]- Friday 8:00 AM EDT With: Where: [facility] Services Friday 2:30 PM EDT With: Where: [facility] [address], [place] [address]- You Need to Schedule the Following Appointments Follow Up with Vilma John, FAM, MED When: Where: [address] [address]- Medications What How Much When Why Instructions New methylPREDNISolone (Medrol Dosepack 4 mg Tab) 1 Packets By Mouth As Directed Viral URI with cough Duration: 6 Days as directed on package labeling Pickup at [facility] 1985 Unchanged albuterol (Ventolin HFA 90 mcg/ inh Aerosol-Adpt) 2 Puffs Inhalation 4 times a day as needed for for wheezing Viral bronchitis Contact prescribing physician if questions or concerns Unchanged ascorbic acid (Vitamin C 500 mg oral tablet, chewable) 1 Tablets Chewed Every day Contact prescribing physician if questions or concerns Unchanged fluconazole (Diflucan 150 mg Tab) 1 Tablets By Mouth Once Yeast infection of the vagina Contact prescribing physician if questions or concerns [...] prescribing physician if questions or concerns Unchanged mupirocin topical (mupirocin Top 2% Oint) 1 Application Topical 2 times a day Diabetic Impetigo Contact prescribing physician if questions or concerns [...] Every day Calcium 27 mg and Serrapeptase (more content not included)... Normal [facility] Ambulatory Visit Summary Ambulatory Visit Summary KERMIT ROSEN :1950 Visit Date:12/14/2024 Ambulatory Visit Instructions Your Diagnosis Viral URI with cough Your Care Team Attending Physician - Bradley ATKINSON, Severino Chisholm Primary Care Physician - Esvin AVILES, Vilma Rivera This Is Your Medications List methylPREDNISolone (Medrol Dosepack 4 mg Tab) Contact prescribing physician if questions or concerns Misc Prescription (spacer) Non-Formulary Medication (H-HTP 100 mg) Non-Formulary Medication (NAC Detox Regulators) Non-Formulary Medication (Nitric Oxide Foundation) Non-Formulary Medication (Serrapeptase 40,000 SPU) albuterol (Ventolin HFA 90 mcg/inh Aerosol-Adpt) ascorbic acid (Vitamin C 500 mg oral tablet, chewable) fluconazole (Diflucan 150 mg Tab) garlic (Garlic) iodine ivermectin magnesium amino acids chelate menaquinone (Vitamin K2) metoprolol (metoprolol 50 mg ER Tab) multivitamin with minerals (Elderberry Gummies with Vitamin C and Zinc) mupirocin topical (mupirocin Top 2% Oint) sertraline (sertraline 50 mg Tab) thyroid desiccated (Martell Thyroid 30 mg Tab) valsartan (valsartan 160 mg Tab) zinc acetate (zinc acetate 50 mg oral capsule) Procedures Performed Biopsy of breast (02/02/2021), Lumpectomy of right breast (02/02/2021), Dilation and curettage, Tonsillectomy, Tubal ligation, Ultrasonography guided biopsy of right breast. Discharge Vitals Temperature (Oral) 36.9 ???C Heart Rate (Peripheral) 84 Respiratory Rate 18 Blood Pressure 130/88 Height 154 cm Height 61 in Weight 56 kg Weight 123.459 lb BMI 23.61 What to do next Scheduled Follow-Up Appointments Friday 11:00 AM EST With: CIZHOU CENTENO Where: [facility] [place] [address] [place] [address]- Friday 8:00 AM EDT With: Where: [facility] Services Friday 2:30 PM EDT With: Where: [facility] [address], [place] [address]- Medications What How Much When Why Instructions New methylPREDNISolone (Medrol Dosepack 4 mg Tab) 1 Packets By Mouth As Directed Viral URI with cough Duration: 6 Days as directed on package labeling Pickup at [facility] 1985 Unchanged albuterol (Ventolin HFA 90 mcg/ inh Aerosol-Adpt) 2 Puffs Inhalation 4 times a day as needed for for wheezing Viral bronchitis Contact prescribing physician if questions or concerns Unchanged ascorbic acid (Vitamin C 500 mg oral tablet, chewable) 1 Tablets Chewed Every day Contact prescribing physician if questions or concerns Unchanged fluconazole (Diflucan 150 mg Tab) 1 Tablets By Mouth Once Yeast infection of the vagina Contact prescribing physician if questions or concerns [...] prescribing physician if questions or concerns Unchanged mupirocin topical (mupirocin Top 2% Oint) 1 Application Topical 2 times a day Diabetic Impetigo Contact prescribing physician if questions or concerns [...] prescribing physician if questions or concerns Unchanged sertraline (sertraline 50 mg Tab) 1 (more content not included)... [facility] Family Medicine Office/Clini c Noteon 12-14-2024 Family Medicine Office/Clinic Note Family Medicine Office/Clinic Note Chief Complaint cough, sinus congestion HPI Staff 74 year old female presents with cough, sore throat, sinus congestion onset 3 days ago History of Present Illness I have reviewed and verified the staff HPI to be accurate for this encounter. Portions of this record have been created with voice recognition software. Occasional wrong-word or ???[id number]??? substitutions may have occurred due to the inherent limitations of voice recognition software. 74 yo female with history of hypertension, hyperlipidemia, hypothyroidism presents today with cc of cough, sore throat, sinus congestion x 3 days onset. 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 She denies history of asthma states history of pneumonia states she had it in May and then again sometime last year she could not recall. States that she started with little of a scratchy throat followed by runny stuffy nose and sinus pressure then cough and other cold-like symptoms. She denies any fever chills or bodyaches. Denies weakness. States she did go to work today but states she had the digital business analyst take her back to her car because she states it was too cold for her to be working. States loss of voice when she states she cannot talk to the kids or be certain if needed due to loss of voice. She denies any belly pain nausea vomiting or loose stool. She denies any chest pain shortness of breath or difficulty breathing with cough. States cough is dry nonproductive. She has no other concerns at this time. Review of Systems PHQ Score Initial Depression Screen Score: 0 SCORE ROS negative unless otherwise stated in HPI. Physical Exam Vitals & Measurements T: 36.9 ???C(Oral) HR: 84(Peripheral) RR: 18 BP: 130/88 SpO2: 96% HT: 61 in HT: 154 cm WT: 56 kg WT: 123.459 lb BMI: 23.61 General: Very pleasant thin elderly female, no acute distress sitting upright in the exam table Eyes: Bilateral conjunctiva within normal limits no injection Ears: Bilateral TMs are within normal limits no erythema or bulging. Bilateral external auditory canals are within normal limits no erythema or edema Nose: mild nasal mucosa inflammation and edema no active drainage deformity or lesion Mouth: Moist mucous membranes. Uvula is midline. No acute tonsillar erythema edema or exudate. No signs of peritonsillar abscess. No trismus or drooling. Neck: no adenopathy Lungs: Lung sounds are clear bilaterally. No wheezing rhonchi or crackles on exam Cardio: S1, S2, regular rhythm. No murmurs gallops or rubs. Abdomen: not assessed Musculoskeletal: not assessed Extremity: not assessed Neurologic: not assessed Skin: not assessed Mental Status: Alert and oriented x3. Normal mood and affect Assessment/Plan I spoke with patient in regards to treatment for viral upper respiratory infection. Discussed in regards to cough suppressant which offered Tessalon Perlvik however patient states that those are worthless. She states she has Coricidin at home which I discussed is safe with her history of hypertension. She may take medicine as instructed on the bottle. I will send a Medrol Dosepak to see if this helps in regards to loss of voice. Otherwise discussed with patient she may have cough or cold-like symptoms and open 7 to 14 days in duration typically the worst of those symptoms are in the first 3 to 5 days. She declined rapid COVID-19 and influenza testing in office today she states that previous to time she has been tested she has been negative. Patient understands to return if she were to develop any worsening or concerning symptoms such as fever, weakness or any other worsening or concerning symptoms. 1. Viral URI with cough (J06.9: Acute upper respiratory infection, unspecified) Discussed exam and hx are consistent with viral illness. Advised of typical duration. Discussed antibiotics unfortunately do not treat viral illnesses, it will take time to run course- usually 7-14 days. Fluids/rest encouraged, PRN tylenol/ibuprofen for any pain. May use coricidin, and medrol dose dionicio for symptomatic tx. Follow up with PCP if not improving over next 7-10 days or significantly worsening symptoms. Patient verbalized understanding of tx plan. Ordered: methylPREDNISolone, = 1 packet(s), Oral, As Directed, as directed on package labeling, X 6 day(s), # 21 tab(s), Refills(s) 0, Pharmacy: [facility], 154, cm, 12/14/24 13:12:00 EST, Height/Length Dosing, 56, kg, 12/14/24 13:12:00 EST, Weight Dosing Follow-up With When Contact Information Esvin AVILES, ROSA MARIA Hilton, MED [address], [address] [address]- Additional Instructions: Patient Education Upper Respiratory Infection, Adult Problem List/Past Medical History Ongoing Atypical migraine Benign essential hypertension Bulging of cervical intervertebral disc Ce (more content not included)... [facility] Comment on above: Result Comment: Elec tronically Signed By: Bradley ATKINSON, Severino Chisholm\.br\Date and Time Signed: 12/14/24 13:35 EST Patient Letter FTon 2024 Patient [place] [facility] [place] [facility] [place] [address] [facility] [place] [address] [phone] December 14, 2024 KERMIT ROSEN [address] [place] [address] : 1950 Please excuse KERMIT ROSEN from work . Date and/or Time of Absence: From: 12/14/24 To: 12/17/24 May return to work on: 12/17/24 Restrictions: None Comments: Please excuse due to an acute illness. Provider Signature: Severino Huerta PA-C Physician Pump Stitcher [facility] Care [address] [place] [address] Andreina Raza [facility] General Surgery Office/Clini c Noteon 11-12-2024 General Surgery Office/Clinic Note General Surgery Office/Clinic [...] the descending colon during colonoscopy performed by digestive [facility] in 2019 is referred back to us for surveillance colonoscopy. Patient does have a family history of colon cancer through her brother and her son was recently diagnosed with a colon mass which required resection for bleeding. The surgeries performed in [place]. 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 Hyperplastic polyp of descending colon (K63.5: Polyp of colon) See above Ordered: E&M of New Patient Moderate 45-59 Min 51809 Hospital-based Procedure Pre-Surgery Testing per Anesthesia Portions of this record may have been created with voice recognition artificial intelligence software, specifically [employer], [employer] and or [employer]. Substitutions may have occurred due to the inherent limitations of voice recognition and artificial intelligence software. Follow-up No qualifying data available Problem List/Past Medical History Ongoing Atypical migraine Benign essential hypertension Bulging of cervical intervertebral disc Cervical radiculitis Chronic sinusitis with recurrent bronchitis Family history of colon cancer Fatigue Hand numbness Marie's thyroiditis Hernia, ventral Hx of colonic polyp [...] Ultrasonography guided biopsy of right breast. Medications Martell Thyroid 30 mg Tab, 30 mg= 1 [...] Household substa (more content not included)... Normal [facility] Comment on above: Result Comment: Elec tronically Signed By: Marlo RAY, Singh Patinobr\Date and Time Signed: 11/12/24 11:07 EST ALL CBC WITH AUTO DIFFon BASOPHILS ABSOLUTE AUTO 0 N [facility] Basophils/100 WBC (Bld) 0.6 % 0.2 - 2.0 % [facility] Eosinophils/100 WBC (Bld) 1.7 % 0.9 - 7.0 % [facility] Erythrocyte distribution width (RBC) [Ratio] 12.9 % 11.0 - 15.0 % [facility] Hematocrit (Bld) [Volume fraction] 40.6 % 36.0 - 48.0 % [facility] Hemoglobin (Bld) [Mass/Vol] 13.5 g/dL 12.0 - 16.0 g/dL [facility] IMMATURE GRANULOCYTES ABS AUTO 0.01 [facility] Immature granulocytes/100 WBC (Bld) 0.3 % 0.0 - 0.5 % [facility] Interpretation and review of laboratory results Abnormal [facility] LYMPHOCYTES ABSOLUTE AUTO 1.2 [facility] Lymphocytes/100 WBC (Bld) 35.5 % 20.5 - 60.0 % [facility] MCH (RBC) [Entitic mass] 30.8 pg 26.7 - 34.0 pg [facility] MCHC (RBC) [Mass/Vol] 33.3 g/dL 29.9 - 35.2 g/dL [facility] MCV (RBC) [Entitic vol] 92.7 fL 81.0 - 99.0 fL [facility] MONOCYTES ABSOLUTE AUTO 0.4 N [facility] Monocytes/100 WBC (Bld) 11.6 % 1.7 - 12.0 % [facility] NEUTROPHILS ABSOLUTE AUTO 1.7 [facility] Neutrophils/100 WBC (Bld) 50.3 % 43.0 - 75.0 % [facility] Platelet mean volume (Bld) [Entitic vol] 10.7 fL 9.5 - 13.5 fL [facility] EO # 0.1 [facility] TB PLT 176 [facility] RBC 4.38 [facility] WBC 3.5 Low [facility] Zay 11-05-2024 L - -------- Specimen: [id number] Received: 11/05/24 Status: KARLO Mosley Num: [id number] Spec Type: Surgical Subm Dr: Ryley Marinelli Tissues: A Endometrium - Curettings (ENDOMETRIAL CURETTINGS) Procedures: Tamara TAM/Megan Richardson -------- Age/ Patient Sex Location Account Attending Physician -------- Kermit Rosen 74/F LABELL [id number] Ryley Marinelli -------- SPEC NUM: [id number] RECD: 11/05/24 STATUS: ANDREWNéstor MOSLEY NUM: [id number] LAURA: 11/05/[address]: Ryley Marinelli ENTERED: 11/05/24 [facility] DR: Lore,Antonio SPEC TYPE: Surgical DEPT: LANCE CRAWFORD ENTERED BY: [id number] RECV BY: [id number] ORDERED: HE/2, Gross/Micro L4 ORDERED: HE/2, Gross/Micro [...] submitted in a single cassette. (1, ns, [id number]) MAURI -------- Specimen: [id number] Received: 11/05/24 Status: KARLO Justus Num: [id number] Spec Type: Surgical Subm Dr: Ryley Marinelli Tissues: A Endometrium - Curettings (ENDOMETRIAL CURETTINGS) Procedures: HE/2, Gross/Micro L4 -------- Patient: Kermit Rosen Shaw [id number] (Continued) -------- Specimen: [id number] Received: 11/05/24 (Continued) Signed (signature on file) Anne Marie Cuenca MD 11/08/24 1349 -------- Specimen: [id number] Received: 11/05/24 Status: KARLO Mosley Num: [id number] Spec Type: Surgical Subm Dr: Ryley Marinelli Tissues: A Endometrium - Curettings (ENDOMETRIAL CURETTINGS) Procedures: CHANDRA/Tamara Stark/Megan L4 -------- Patient: Kermit Rosen [id number] (Continued) -------- Specimen: [id number] Received: 11/05/24 (Continued) Microscopic Description Microscopic examinations are performed supporting the above interpretation CPT Codes 06669 -------- -------- Specimen: [id number] Received: 11/05/24 Status: KARLO Mosley Num: [id number] Spec Type: Surgical Subm Dr: Ryley Marinelli Tissues: A Endometrium - Curettings (ENDOMETRIAL CURETTINGS) Procedures: CHANDRA/Tamara Stark/Megan L4 -------- Patient: Kermit Rosen [id number] (Continued) -------- Signed (signature on file) Amador-Sage Cuenca MD 11/08/24 1349 Normal [facility] ALL CBC WITH AUTO DIFFon BASOPHILS ABSOLUTE AUTO 0 N [facility] Basophils/100 WBC (Bld) 0.5 % 0.2 - 2.0 % [facility] Eosinophils/100 WBC (Bld) 0.7 % Low 0.9 - 7.0 % [facility] Erythrocyte distribution width (RBC) [Ratio] 12.9 % 11.0 - 15.0 % [facility] Hematocrit (Bld) [Volume fraction] 38.9 % 36.0 - 48.0 % [facility] Hemoglobin (Bld) [Mass/Vol] 13.1 g/dL 12.0 - 16.0 g/dL [facility] IMMATURE GRANULOCYTES ABS AUTO 0.01 [facility] Immature granulocytes/100 WBC (Bld) 0.2 % 0.0 - 0.5 % [facility] Interpretation and review of laboratory results Abnormal [facility] LYMPHOCYTES ABSOLUTE AUTO 1.7 [facility] Lymphocytes/100 WBC (Bld) 30.4 % 20.5 - 60.0 % [facility] MCH (RBC) [Entitic mass] 30.5 pg 26.7 - 34.0 pg [facility] MCHC (RBC) [Mass/Vol] 33.7 g/dL 29.9 - 35.2 g/dL [facility] MCV (RBC) [Entitic vol] 90.5 fL 81.0 - 99.0 fL [facility] MONOCYTES ABSOLUTE AUTO 0.5 N [facility] Monocytes/100 WBC (Bld) 8.7 % 1.7 - 12.0 % [facility] NEUTROPHILS ABSOLUTE AUTO 3.4 [facility] Neutrophils/100 WBC (Bld) 59.5 % 43.0 - 75.0 % [facility] Platelet mean volume (Bld) [Entitic vol] 10.6 fL 9.5 - 13.5 fL [facility] EO # 0 [facility] PLT 249 [facility] RBC 4.3 [facility] WBC 5.7 [facility] Ambulatory Visit Summaryon 1 12-15-2023 Ambulatory Visit Summary Ambulatory Visit Summary KERMIT ROSEN :1950 Visit Date:10/15/2024 Ambulatory Visit Instructions Your Diagnosis Cough Fatigue Weak Pneumonia involving right lung Chronic sinusitis with recurrent bronchitis Marie's thyroiditis Bronchitis, not specified as acute or chronic Family history of colonic polyps Hypothyroidism Screening for colon cancer Viral bronchitis Yeast infection of the vagina Your Care Team Attending Physician - Vilma John Primary Care Physician - iVlma John This Is Your Medications List albuterol (Ventolin HFA 90 mcg/inh Aerosol-Adpt) amoxicillin-clavulana te (Augmentin 875 mg-125 mg Tab) azithromycin (Zithromax Z-Dionicio 250 mg oral tablet) benzonatate (benzonatate 100 mg Cap) fluconazole (Diflucan 150 mg Tab) predniSONE (predniSONE 10 mg Tab) thyroid desiccated (Martell Thyroid 30 mg Tab) Contact prescribing physician [...] 1:40 PM EST With: Vilma John Where: [facility] [address], [place] [address]- Friday 2:30 PM EDT With: Where: [facility] [address], [facility] [place] [address]- You Need to Schedule the Following Appointments Follow Up with Vilma John, [facility], [facility] When: In 2 weeks Comments: lung follow up Where: [address], [facility] A [facility] [address] [place] [address]- Medications What How Much When Why Instructions New amoxicillin-clavulana te (Augmentin 875 mg-125 mg Tab) 1 Tablets [...] [facility] 1985 Unchanged thyroid desiccated (Martell Thyroid 30 mg Tab) 1 Tablets By Mouth Every day Marie's thyroiditis Hypothyroidism Duration: 90 Days no Generic substitutions please - Pickup at [facility] 1985 Unchanged ascorbic acid (Vitamin C [...] BMI 23.0 (more content not included)... Normal [facility] Family Medicine Office/Clini c Noteon 10-15-2024 [...] office today Ordered: Influenza Type A&B POC 20836 Rapid COVID POC 53712 2. Fatigue (R53.83: Other fatigue) Patient did have a fever. Encouraged [id number] medication electrolyte fluid replacement and fever control with Tylenol Motrin at home Ordered: Influenza Type A&B POC 91005 Rapid COVID POC 55890 3. Weak (R53.1: Weakness) Ordered: Influenza Type A&B POC 91566 Rapid COVID POC 95341 4. Pneumonia involving right lung (J18.9: Pneumonia, [...] kg, 10/15/24 10:15:00 EST, Weight Dosing 6. 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 Normal [facility] Comment on above: Result Comment: Elec tronically Signed By: Esvin AVILES, Vilma Rivera\.br\Date and Time Signed: 10/15/24 11:08 EST Provider Letteron 10-15-2024 Provider Letter Provider Letter October 15, 2024 MIKEYDARVIN BETY [address] [place] [address] : 1950 To Whom It May Concern, Please excuse above patient from work. Date of Illness: From: 2023 To: 2023 May Return to Work On: 2023 if fever free for 24hrs and symptoms manageable. Comments: Please the office if there are any questions. Thank You. Sincerely, TRACI [facility] [address] [place] [address], [place] [address] Normal [facility] ALL BASIC METABOLIC PANELon 09-10-2024 Anion gap [Moles/Vol] 12.7 mmol/L NO [facility] Calcium [Mass/Vol] 9.2 mg/dL 8.5 - 10. 1 mg/dL [facility] Chloride [Moles/Vol] 103 mmol/L 98 - 10 7 mmol/L [facility] CO2 [Moles/Vol] 25.0 mmol/L 21.0 - 32.0 mmol/L [facility] Creatinine [Mass/Vol] 0.87 mg/dL 0.55 - 1.02 mg/dL [facility] GFR/1.73 sq M.predicted CKD-EPI (S/P/Bld) [Vol rate/Area] >60 >=60 mL/min/1.73m 2 [facility] Glucose [Mass/Vol] 141 mg/dL High 74 - 106 mg/dL [facility] Interpretation and review of laboratory results Abnormal [facility] Potassium [Moles/Vol] 3.7 mmol/L 3.5 - 5.1 mmol/L [facility] Sodium [Moles/Vol] 137 mmol/L 136 - 145 mmol/L [facility] TBH EGFR-NON AF POLISH >60 >=60 mL/min/1.73m 2 [facility] Urea nitrogen [Mass/Vol] 23.0 mg/dL High 7.0 - 18.0 mg/dL [facility] Urea nitrogen/Creatinine [Mass ratio] 26.4 mg/mg [facility] Healthcare [facility] Ambulatory Visit Summaryon 0 07-09-2024 Ambulatory [...] (Vitamin C 500 mg oral tablet, chewable) brompheniramine/dextr omethorphan/PSE (Bromfed DM oral syrup) garlic (Garlic) iodine ivermectin magnesium amino acids chelate menaquinone (Vitamin K2) metoprolol (metoprolol 50 mg ER Tab) multivitamin with minerals (Elderberry Gummies with Vitamin C and Zinc) thyroid desiccated (Martell Thyroid 30 mg Tab) valsartan (valsartan 160 [...] 10:00 AM EDT With: Vilma John Where: [facility] [address] [facility], [facility] [place] [address]- Friday 2:30 PM EDT With: Where: [facility] [address] [facility], [facility] [place] [address]- Medications What How Much When Why Instructions New mupirocin topical (mupirocin Top 2% Oint) 1 Application Topical 2 times a day Diabetic Impetigo Pickup at [facility] 1985 Unchanged albuterol (Ventolin HFA 90 [...] breakdown unwanted (more content not included)... Normal [facility] Family Medicine Office/Clini c Noteon 07-09-2024 [...] is correct. -Additional information provided if needed. [place] Hot, dry cough, sore throat, yellow crap [...] slowly improving Ordered: Influenza Type A&B POC 46522 Rapid COVID POC 71191 2. 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 Substitutions may have occurred due to the [...] sinusitis with recurrent bronchitis Fatigue Hand numbness Marie's thyroiditis Hernia, ventral Hx of colonic polyp [...] right breast (more content not included)... Normal [facility] Comment on above: Result Comment: Elec tronically Signed By: Vilma John\.reg\Date and Time Signed: 07/09/24 10:37 EDT YOSELIN w/Reflex if POSon 2023 Nuclear Ab Ql (S) Positive Abnormal Negative [facility] Comment on above: Result Comment: Perf ormed at: [facility] [address] [id number] PhD Ramila Ackerman Performed By: #### 1 [id number] #### [facility] [address] [place] [address] CH50on 05-20-2024 Complement total hemolytic CH50 Qn >60 Invalid Interpretation Code >41 [facility] Comment on above: Result Comment: Age [...] determine out of range values. Performed at: [address] [id number] PhD Ramila Ackerman Performed By: #### 1 [id number] #### [facility] [address] [place] [address] IgA, Quant.on 05-20-2024 IgA [Mass/Vol] 252 mg/dL Invalid Interpretation Code 64-422 [facility] Comment on above: Result Comment: Perf ormed at: [address] [id number] PhD Ramila Ackerman Performed By: #### 1 [id number] #### [facility] [address] [place] [address] IgE, Quanton 05-20-2024 IgE Qn 30 International_Unit/mL Invalid Interpretation Code 6-495 [facility] Comment on above: Result Comment: Perf ormed at: [address] [id number] MD Zack David Performed By: #### 1 [id number] #### [facility] [address] [place] [address] IgG, Quant.on 05-20-2024 IgG [Mass/Vol] 1137 mg/dL Invalid Interpretation Code 454-9459 [facility] Comment on above: Result Comment: Perf ormed at: [address] [id number] PhD Ramila Ackerman Performed By: #### 1 [id number] #### [facility] [address] [place] [address] IgM, Quanton 05-20-2024 IgM [Mass/Vol] 102 mg/dL Invalid Interpretation Code 26-217 [facility] Comment on above: Result Comment: Perf ormed at: [address] [place], [place] [id number] PhD Ramila Ackerman Performed By: #### 1 [id number] #### [facility] [address] [place] [address] Vitamin D 25 Hydroxyon 05-14 25-hydroxyvitamin D3 [Mass/Vol] 46.2 ng/mL Normal 30.0-100.0 [facility] Comment on above: Performed By: #### 5 [id number] #### [facility] [address] [place] [address] BMPon 05-13-2024 Anion gap [Moles/Vol] 12 mmol/L Normal 6-16 [facility] Comment on above: Performed By: #### 2 [id number] #### [facility] [address] [place] [address] Calcium [Mass/Vol] 9.8 mg/dL Normal 8.9-11.1 [facility] Comment on above: Performed By: #### 2 148781 #### [facility] [address] [place] [address] Chloride [Moles/Vol] 104 mmol/L Normal 101-111 [facility] Comment on above: Performed By: #### 2 574651 #### [facility] [address] [place] [address] CO2 [Moles/Vol] 25 mmol/L Normal 21-31 [facility] Comment on above: Performed By: #### 2 279002 #### [facility] [address] [place] [address] Creatinine [Mass/Vol] 0.9 mg/dL Normal 0.5-1.3 [facility] Comment on above: Performed By: #### 2 649420 #### [facility] [address] [place] [address] Glucose [Mass/Vol] 86 mg/dL Normal 55-199 [facility] Comment on above: Performed By: #### 2 [id number] #### [facility] [address] [place] [address] Potassium [Moles/Vol] 4.2 mmol/L Normal 3.5-5.3 [facility] Comment on above: Performed By: #### 2 374368 #### [facility] [address] [place] [address] Sodium [Moles/Vol] 137 mmol/L Normal 135-145 [facility] Comment on above: Performed By: #### 2 138699 #### [facility] [address] [place] [address] Urea nitrogen [Mass/Vol] 20 mg/dL Normal 5-21 [facility] Comment on above: Performed By: #### 2 165702 #### [facility] [address] [place] [address] Urea nitrogen/Creatinine [Mass ratio] 22 No Units High 10-20 [facility] Comment on above: Performed By: #### 2 677872 #### [facility] [address] [place] [address] CBC w/ Auto Diffon 4 Basophils/100 WBC (Bld) 0.4 % Normal 0.0-2.0 F [facility] Comment on above: Performed By: #### 2 706803 #### [facility] [address] [place] [address] Basophils/Leukocytes Auto (Bld) [Pure # fraction] 0.0 E9/L Normal 0.0-0.2 [facility] Comment on above: Performed By: #### 2 055997 #### [facility] [address] [place] [address] Eosinophils (Bld) [#/Vol] 0.0 E9/L Normal 0.0-0.5 [facility] Comment on above: Performed By: #### 2 556734 #### [facility] [address] [place] [address] Eosinophils/100 WBC (Bld) 0.7 % Normal 0.0-8.0 [facility] Comment on above: Performed By: #### 2 [id number] #### [facility] [address] [place] [address] Erythrocyte distribution width (RBC) [Ratio] 12.7 % Normal 10.9-14.2 [facility] Comment on above: Performed By: #### 2 [id number] #### [facility] [address] [place] [address] Hematocrit (Bld) [Volume fraction] 41.2 % Normal 34.0-46.0 [facility] Comment on above: Performed By: #### 2 993141 #### [facility] [address] [place] [address] Hemoglobin (Bld) [Mass/Vol] 13.9 g/dL Normal 12.0-16.0 [facility] Comment on above: Performed By: #### 2 409126 #### [facility] [address] [place] [address] Lymphocytes (Bld) [#/Vol] 1.6 E9/L Normal 1.0-4.0 [facility] Comment on above: Performed By: #### 2 268209 #### [facility] [address] [place] [address] Lymphocytes/100 WBC (Bld) 22.8 % Normal 14.0-50.0 [facility] Comment on above: Performed By: #### 2 010165 #### [facility] [address] [place] [address] MCH (RBC) [Entitic mass] 30.7 pg Normal 27.0-34.0 [facility] Comment on above: Performed By: #### 2 [id number] #### [facility] [address] [place] [address] MCHC (RBC) [Mass/Vol] 33.8 g/dL Normal 31.4-36.0 [facility] Comment on above: Performed By: #### 2 [id number] #### [facility] [address] [place] [address] MCV (RBC) [Entitic vol] 90.8 fL Normal 80.0-100.0 F [facility] Comment on above: Performed By: #### 2 996443 #### [facility] [address] [place] [address] Monocytes (Bld) [#/Vol] 0.4 E9/L Normal 0.2-1.0 F [facility] Comment on above: Performed By: #### 2 650363 #### [facility] [address] [place] [address] Neutrophils (Bld) [#/Vol] 5.0 E9/L Normal 2.0-7.5 [facility] Comment on above: Performed By: #### 2 [id number] #### [facility] [address] [place] [address] Neutrophils/100 WBC (Bld) 70.3 % Normal 36.0-75.0 [facility] Comment on above: Performed By: #### 2 894002 #### [facility] [address] [place] [address] Platelet mean volume (Bld) [Entitic vol] 8.6 fL Normal 6.4-10.8 [facility] Comment on above: Performed By: #### 2 230891 #### [facility] [address] [place] [address] Platelets (Bld) [#/Vol] 299.0 E9/L Normal 150.0-500.0 [facility] Comment on above: Performed By: #### 2 304853 #### [facility] [address] [place] [address] RBC (Bld) [#/Vol] 4.5 E12/L Normal 4.3-5.9 [facility] Comment on above: Performed By: #### 2 [id number] #### [facility] [address] [place] [address] WBC corrected for nucl RBC Auto (Bld) [#/Vol] 7.1 E9/L Normal 4.0-11.0 [facility] Comment on above: Performed By: #### 2 827383 #### [facility] [address] [place] [address] CHEMISTRYOrdered By: SYSTEM SYSTEM on 05-13-2024 Anion gap [Moles/Vol] 12 mmol/L Normal 6 - 16 mEq/L R emisol Chem Calcium [Mass/Vol] 9.8 mg/dL Normal 8.9 - 11. 1 mg/dL [facility] Chloride [Moles/Vol] 104 mmol/L Normal 101 - 1 11 mmol/L [facility] CO2 [Moles/Vol] 25 mmol/L Normal 21 - 31 mmol/L [facility] Creatinine [Mass/Vol] 0.9 mg/dL Normal 0.5 - 1.3 mg/dL [facility] eGFR 67 mL/min/1.73 m2 Normal >=59mL/min /1 .73 m2 [facility] Glucose [Mass/Vol] 86 mg/dL Normal 55 - 199 mg/dL [facility] Potassium [Moles/Vol] 4.2 mmol/L Normal 3.5 - 5.3 mmol/L [facility] Sodium [Moles/Vol] 137 mmol/L Normal 135 - 145 mmol/L [facility] TSH Qn 2.00 m[IU]/L Normal 0.34 - 5.60 mcIU/mL [facility] Urea nitrogen [Mass/Vol] 20 mg/dL Normal 5 - 21 mg/dL [facility] Urea nitrogen/Creatinine [Mass ratio] 22 mg/mg High 10 - 20 [facility] HEMATOLOGYOrdered By: SYSTEM SYSTEM on 05-13-2024 Basophils/100 [...] Heme Platelets (Bld) [#/Vol] 299.0 E9/L Normal 150. 0 - 500.0 E9/L Remisol Heme RBC (Bld) [#/Vol] 4.5 E12/L Normal 4.3 - 5.9 E12/L Rem[facility] Heme WBC corrected for nucl RBC Auto (Bld) [#/Vol] 7.1 E9/L Normal 4.0 - 11.0 E9/L Remisol Heme TSH With T4fr Reflexon 05-13 TSH Qn 2.00 m[IU]/L Normal 0.34-5.60 [facility] Comment on above: Performed By: #### 1 [id number] #### [facility] [address] [place] [address] eGFRon 05-13-2024 eGFR 67 mL/min/1.73 m2 Normal >=59 [facility] Comment on above: Order Comment: Order added by Discern Expert. Performed By: #### 1 [id number] #### [facility] [address] [place] [address] CHEMISTRYOrdered By: SYSTEM SYSTEM on 01-21-2024 Creatinine [Mass/Vol] 0.7 mg/dL Normal 0.5 - 1.3 mg/dL [facility] eGFR 91 mL/min/1.73 m2 Normal >=59mL/min /1 .73 m2 [facility] Creatinine (Bld) [Mass/Vol]O rdered By: Ryley Marinelli on 11-04-2023 Creatinine [Mass/Vol] 0.8 mg/dL 0.6-1.3 [facility] Comment on above: ER/ESD physician is notified/shown all ISTAT results.Critical values may be confirmed by laboratory testing ifdeemed necessary by ER attending doctor. No Panel InformationOrdered By: Ryley Marinelli on 11-04-2023 Bedside Estimated GFR (eGFR) > 60.0 [facility] CHEMISTRYOrdered By: SYSTEM SYSTEM on 10-18-2023 Albumin [Mass/Vol] 3.9 g/dL Normal 3.3 - 5.0 gm/dL [facility] Albumin/Globulin [Mass ratio] 1.2 {ratio} Normal 1.1 - 2.2 [facility] ALP [Catalytic activity/Vol] 82 [iU]/d Normal 21 - 98 Int._Unit/L [facility] ALT No additional P-5'-P [Catalytic activity/Vol] 17 [iU]/d Normal 6 - 46 Int._Unit/L [facility] Anion gap [Moles/Vol] 10 mmol/L Normal 6 - 16 mEq/L F [facility] AST [Catalytic activity/Vol] 24 [iU]/d Normal 5 - 43 Int._Unit/L [facility] Bilirubin [Mass/Vol] 0.7 mg/dL Normal 0.0 - 1 .1 mg/dL [facility] Calcium [Mass/Vol] 9.4 mg/dL Normal 8.9 - 11. 1 mg/dL [facility] Chloride [Moles/Vol] 108 mmol/L Normal 101 - 1 11 mmol/L [facility] Cholesterol [Mass/Vol] 216 mg/dL High [...] (S/P/Bld) [Vol rate/Area] 78 mL/min/1.73 m2 Normal >=59mL/min/1 .73 m2 [facility] [place] S Comment on above: Interpretive Data: C hronic kidney disease could be indicated at eGFR's of less than 60 mL/min/1.73m2. Kidney failure is indicated at less than 15 mL/min/1.73m2. Globulin (S) [Mass/Vol] 3.4 g/dL Normal 1.4 - 4.0 gm/dL [facility] Glucose [Mass/Vol] 101 mg/dL Normal 55 - 199 mg/dL [facility] Comment on above: Interpretive Data: I f this glucose result represents a fasting glucose, interpretation should refer to the following reference range: 55-99 mg/dL Potassium [Moles/Vol] 4.3 mmol/L Normal 3.5 - 5.3 mmol/L [facility] Protein [Mass/Vol] 7.3 g/dL Normal 6.0 - 7.8 gm/dL [facility] Sodium [Moles/Vol] 140 mmol/L Normal 135 - 145 mmol/L [facility] Triglyceride [Mass/Vol] 83 mg/dL Normal <=149mg/dL [facility] Urea nitrogen [Mass/Vol] 22 mg/dL High 5 - 21 mg/dL [facility] Urea nitrogen/Creatinine [Mass ratio] 28 mg/mg High 10 - 20 [facility] HEMATOLOGYOrdered By: SYSTEM SYSTEM on 10-18-2023 Basophils/100 WBC (Bld) 0.6 % Normal 0.0 - 2.0 % [facility] Basophils/Leukocytes Auto (Bld) [Pure # fraction] 0.0 E9/L Normal 0.0 - 0.2 E9/L [facility] Eosinophils/100 WBC (Bld) 1.3 % Normal 0.0 - 8.0 % [facility] Eosinophils/Leukocytes Auto (Bld) [Pure # fraction] 0.0 E9/L Normal 0.0 - 0.5 E9/L [facility] Lymphocytes/100 WBC (Bld) 45.5 % Normal 14.0 - 50.0 % [facility] Lymphocytes/Leukocytes Auto (Bld) [Pure # fraction] 1.6 E9/L Normal 1.0 - 4.0 E9/L [facility] Monocytes/100 WBC (Bld) 7.9 % Normal 4.0 - 14.0 % [facility] Monocytes/Leukocytes Auto (Bld) [Pure # fraction] 0.3 E9/L Normal 0.2 - 1.0 E9/L [facility] Neutrophils/100 WBC (Bld) 44.7 % Normal 36.0 - 75.0 % [facility] Neutrophils/Leukocytes Auto (Bld) [Pure # fraction] 1.6 E9/L Low 2.0 - 7.5 E9/L [facility] HEMATOLOGYOrdered By: Opal Castro on 10-18-2023 Erythrocyte distribution width (RBC) [Ratio] 13.1 % Normal 10.9 - 14.2 % [facility] Hematocrit (Bld) [Volume fraction] 43.4 % Normal 34.0 - 46.0 % [facility] Hemoglobin (Bld) [Mass/Vol] 14.7 g/dL Normal 12.0 - 16.0 gm/dL [facility] MCH (RBC) [Entitic mass] 30.5 pg Normal 27.0 - 34.0 pg [facility] MCHC (RBC) [Mass/Vol] 33.8 g/dL Normal 31.4 - 36.0 gm/dL [facility] MCV (RBC) [Entitic vol] 90.2 fL Normal 80.0 - 100.0 fL [facility] Platelet mean volume (Bld) [Entitic vol] 9.8 fL Normal 6.4 - 10.8 fL [facility] Platelets (Bld) [#/Vol] 222.0 E9/L Normal 150. 0 - 500.0 E9/L [facility] RBC (Bld) [#/Vol] 4.8 E12/L Normal 4.3 - 5.9 E12/L [facility] WBC corrected for nucl RBC Auto (Bld) [#/Vol] 3.6 E9/L Low 4.0 - 11.0 E9/L [facility] Office Visit (Cardiology)on 07-15-2023 Follow-up visit Diagnoses/Problems [...] a smoker Tobacco Use Screening; Status:Complete; Done: [id number] Patient Instructions Please bring all medicines, vitamins, [...] Apart from hypertension physical examination was normal. Assessment/recommenda tions 1?mild coronary atherosclerosis with 40% mid anterior [...] MG Oral TabletTAKE 1 TABLET DAILY NEEDED. Martell Thyroid 30 MG Oral TabletTAKE 1 TABLET [...] Barr; 10/08/2021 (more content not included)... Normal [facility] Tobacco Screening.on 023 Adult depression screening assessment No [facility] [employer] 250 DO Work Phone: Fall risk assessment a) No falls within the last year [facility] [employer] 250 DO Work Phone: Tobacco use status CPHS b) No [facility] [employer] 250 DO Work Phone: Alanine aminotransferase [En zymatic activity/volume] in Serum or PlasmaOrdered By: Jay Jay Pisano on 07-14-2023 ALT [Catalytic activity/Vol] 13 U/L 7-52 [facility] Aspartate aminotransferase [ Enzymatic activity/volume] in Serum or PlasmaOrdered By: Jay Jay Pisano on 07-14-2023 AST [Catalytic activity/Vol] 19 U/L 13-39 [facility] Basophils Auto (Bld) [#/Vol] Ordered By: Jay Jay Pisano on 07-14-2023 Basophils (Bld) [#/Vol] 0.0 10*3/uL 0.0-0.2 [facility] Basophils/100 WBC Auto (Bld) Ordered By: Jay Jay Pisano on 07-14-2023 Basophils/100 WBC (Bld) 0.9 % . F [facility] Calcium [Mass/volume] in Ser um or PlasmaOrdered By: Jay Jay Pisano on 07-14-2023 Calcium [Mass/Vol] 9.4 mg/dL 8.6-10.3 [facility] Carbon dioxide, total [Moles /volume] in Serum or PlasmaOrdered By: Jay Jay Pisano on 07-14-2023 CO2 [Moles/Vol] 28.8 mmol/L 21.0-31.0 [facility] Chloride [Moles/volume] in S rina or PlasmaOrdered By: Jay Jay Pisano on 07-14-2023 Chloride [Moles/Vol] 108 mmol/L 98-107 [facility] Cholesterol [Mass/volume] in Serum or PlasmaOrdered By: Jay Jay Pisano on 07-14-2023 Cholesterol [Mass/Vol] 220 mg/dL 140-200 [facility] Comment on above: Chol less than 200 m g/dl low riskChol 201-239 mg/dl borderline riskChol 240 mg/dl and greater high risk Cholesterol in LDL Calc [Mas s/Vol]Ordered By: Jay Jay Pisano on 07-14-2023 Cholesterol in LDL [Mass/Vol] 135 mg/dL 0-100 [facility] Comment on above: LDL ATP III CLASSIFI CATIONLDL less than 100 mg/dL OptimalLDL 100-129 mg/dL Near or above optimalLDL 130-159 mg/dL Borderline highLDL 160-189 mg/dL HighLDL greater than 189 mg/dL Very high Cholesterol in VLDL Calc [Ma ss/Vol]Ordered By: Jay Jay Pisano on 07-14-2023 Cholesterol in VLDL [Mass/Vol] 30 mg/dL [facility] Creatinine [Mass/volume] in Serum or PlasmaOrdered By: Jay Jay Pisano on 07-14-2023 Creatinine [Mass/Vol] 0.73 mg/dL 0.60-1.20 [facility] Eosinophils Auto (Bld) [#/Vo l]Ordered By: Jay Jay Pisano on 07-14-2023 Eosinophils (Bld) [#/Vol] 0.1 10*3/uL 0.0-0.45 [facility] Eosinophils/100 WBC Auto (Bl d)Ordered By: Jay Jay Pisano on 07-14-2023 Eosinophils/100 WBC (Bld) 2.0 % . [facility] Erythrocyte distribution wid th Auto (RBC) [Ratio]Ordered By: Jay Jay Pisano on 07-14-2023 Erythrocyte distribution width (RBC) [Ratio] 13.0 % 11.9-15.3 [facility] Glucose [Mass/volume] in Ser um or PlasmaOrdered By: Jay Jay Pisano on 07-14-2023 Glucose [Mass/Vol] 85 mg/dL 70-100 [facility] Comment on above: ADA recommended refe rence rangeRandom Glucose Reference Range is dependent on time and content of last meal. Glucose of more than 200 mg/dL in a nonstressed, ambulatory subject supports the diagnosis of Diabetes Mellitus. Hematocrit Auto (Bld) [Volum e fraction]Ordered By: Jay Jay Pisano on 07-14-2023 Hematocrit (Bld) [Volume fraction] 40.5 % 34.0-46.4 [facility] Hemoglobin [Mass/volume] in BloodOrdered By: Jay Jay Pisano on 07-14-2023 Hemoglobin (Bld) [Mass/Vol] 13.6 g/dL 11.8-15.4 [facility] Laboratory - Chemistry and C hemistry - challengeon 07-14-2023 Cholesterol [Mass/Vol] 220\S\220 above hig h threshold 140-200 [facility] [employer] 250 DO Work Phone: Comment on above: Chol less than 200 m g/dl low risk Chol 201-239 mg/dl borderline risk Chol 240 mg/dl and greater high risk Cholesterol in LDL [Mass/Vol] 135\S\135 above high threshold 0-100 [facility] [employer] [place] 250 DO Work Phone: Comment on above: [...] RBC Auto (Bld) [#/Vol] 4.3 10*3/uL 3.8-11.6 [facility] Lymphocytes Auto (Bld) [#/Vo l]Ordered By: Jay Jay Pisano on 07-14-2023 Lymphocytes (Bld) [#/Vol] 1.5 10*3/uL 1.00-4.8 [facility] Lymphocytes/100 WBC Auto (Bl d)Ordered By: Jay Jay Pisano on 07-14-2023 Lymphocytes/100 WBC (Bld) 34.3 % . [facility] MCH Auto (RBC) [Entitic mass ]Ordered By: Jay Jay Pisano on 07-14-2023 MCH (RBC) [Entitic mass] 30.5 pg 24.7-34.3 [facility] MCHC Auto (RBC) [Mass/Vol]Or dered By: Jay Jay Pisano on 07-14-2023 MCHC (RBC) [Mass/Vol] 33.6 g/dL 32.0-35.0 [facility] MCV Auto (RBC) [Entitic vol] Ordered By: Jay Jay Pisano on 07-14-2023 MCV (RBC) [Entitic vol] 90.8 fL 80-100 F [facility] Monocytes Auto (Bld) [#/Vol] Ordered By: Jay Jay Pisano on 07-14-2023 Monocytes (Bld) [#/Vol] 0.3 10*3/uL 0.0-0.8 [facility] Monocytes/100 WBC Auto (Bld) Ordered By: Jay Jay Pisano on 07-14-2023 Monocytes/100 WBC (Bld) 7.2 % . F [facility] Neutrophils Auto (Bld) [#/Vo l]Ordered By: Jay Jay Pisano on 07-14-2023 Neutrophils (Bld) [#/Vol] 2.4 10*3/uL 1.8-7.7 [facility] Neutrophils/100 WBC Auto (Bl d)Ordered By: Jay Jay Pisano on 07-14-2023 Neutrophils/100 WBC (Bld) 55.6 % . [facility] No Panel InformationOrdered By: Jay Jay Pisano on 07-14-2023 Estimated GFR (CKD-EPI) > 60.0 mL/Min [facility] Creatinine Clearance (Chem N/A [facility] No Panel Informationon 07-14 55.6\S\55.6 Normal . [facility] [place] 250 DO Work Phone: 9.3\S\9.3 Normal 6.3-10.7 [facility] [place] [employer] DO Work Phone: 189\S\189 Normal 150-450 [facility] [place] [employer] DO Work Phone: 13.0\S\13.0 Normal 11.9-15.3 [facility] [place] [employer] DO Work Phone: 33.6\S\33.6 Normal 32.0-35.0 [facility] [place] [employer] DO Work Phone: 30.5\S\30.5 Normal 24.7-34.3 [facility] [place] [employer] DO Work Phone: 2.4\S\2.4 Normal 1.8-7.7 [facility] [place] [employer] DO Work Phone: 0.1\S\0.1 Normal 0.0-0.45 [facility] [place] [employer] DO Work Phone: 0.9\S\0.9 Normal . [facility] [place] [employer] DO Work Phone: 2.0\S\2.0 Normal . [facility] [place] [facility] DO Work Phone: 7.2\S\7.2 Normal . [facility] [place] [facility] DO Work Phone: 34.3\S\34.3 Normal . [facility] [place] [facility] DO Work Phone: 0.0\S\0.0 Normal 0.0-0.2 [facility] [place] [address] DO Work Phone: Comment on above: PERFORMED BY:[facility] [place], [place] [id number] MEDICAL DIRECTORBLAKE SMART M.D. 0.3\S\0.3 Normal 0.0-0.8 [facility] [place] [address] DO Work Phone: 1.5\S\1.5 Normal 1.00-4.8 [facility] [place] [facility] DO Work Phone: 90.8\S\90.8 Normal 80-100 [facility] [place] [address] DO Work Phone: 40.5\S\40.5 Normal 34.0-46.4 [facility] [place] [address] DO Work Phone: 13.6\S\13.6 Normal 11.8-15.4 [facility] [place] [address] DO Work Phone: 4.46\S\4.46 Normal 3.60-5.00 [facility] [place] [facility] DO Work Phone: 4.3\S\4.3 Normal 3.8-11.6 [facility] [place] [facility] DO Work Phone: > 60.0 Normal [facility] [place] [facility] DO Work Phone: 8.8\S\8.8 Normal 6.0-15.0 [facility] [place] [facility] DO Work Phone: 9.4\S\9.4 Normal 8.6-10.3 [facility] [employer] 250 DO Work Phone: [phone] 28.8\S\28.8 Normal 21.0-31.0 [facility] [employer] 250 DO Work Phone: [phone] 108\S\108 above high threshold 98-107 [facility] [employer] 250 DO Work Phone: [phone] 4.6\S\4.6 Normal 3.5-5.1 [facility] [employer] 250 DO Work Phone: [phone] 141\S\141 Normal 136-145 [facility] [employer] 250 DO Work Phone: 0.73\S\0.73 Normal 0.60-1.20 [facility] [employer] 250 DO Work Phone: 16\S\16 Normal 7-25 [facility] [employer] 250 DO Work Phone: 85\S\85 Normal 70-100 [facility] [employer] 250 DO Work Phone: Comment on above: Random Glucose Refer ence Range is dependent on time and content of last meal. Glucose of more than 200 mg/dL in a nonstressed, ambulatory subject supports the diagnosis of Diabetes Mellitus. ADA recommended reference range 19\S\19 Normal 13-39 [facility] [employer] 250 DO Work Phone: 13\S\13 Normal 7-52 [facility] [employer] 250 DO Work Phone: [phone] 4.1\S\4.1 Normal <5.0 [facility] [employer] 250 DO Work Phone: Comment on above: PERFORMED BY:[place] [id number] [address] [place] [place] [id number] MEDICAL DIRECTORBLAKE SMART M.D. 30\S\30 Normal [facility] [employer] 250 DO Work Phone: 153\S\153 above high threshold 0-149 -[facility] [place] [address] DO Work Phone: Comment on above: TRIG ATP III CLASSIF ICATION TRIG less than 150 mg/dL Normal TRIG 150-199 mg/dL Borderline high TRIG 200-500 mg/dL High TRIG greater than 500 mg/dL Very high Standard traceable to the Center for Disease Conrtrol and Prevention (CDC) test method. 54\S\54 Normal 23-92 -[facility] [employer] [place] 250 DO Work Phone: Comment on above: HDL CHOL ATP-III CLA SSIFICATION Cardiovascular Risk HDL > or equal to 60 mg/dL LOW HDL < 40 mg/dL HIGH Nucleated erythrocytes [Pres ence] in Blood by Automated countOrdered By: Jay Jay Pisano on 07-14-2023 Nucleated RBC Auto Ql (Bld) 0.1 /100{WBC} 0-0.5 [facility] Platelet mean volume Auto (B ld) [Entitic vol]Ordered By: Jay Jay Pisano on 07-14-2023 Platelet mean volume (Bld) [Entitic vol] 9.3 fL 6.3-10.7 [facility] Platelets Auto (Bld) [#/Vol] Ordered By: Jay Jay Pisano on 07-14-2023 Platelets (Bld) [#/Vol] 189 10*3/uL 150-450 [facility] Potassium [Moles/volume] in Serum or PlasmaOrdered By: Jay Jay Pisano on 07-14-2023 Potassium [Moles/Vol] 4.6 mmol/L 3.5-5.1 [facility] RBC Auto (Bld) [#/Vol]Ordere d By: Jay Jay Pisano on 07-14-2023 RBC (Bld) [#/Vol] 4.46 10*6/uL 3.60-5.00 [facility] Serum or plasma anion gap de terminationOrdered By: Jay Jay Pisnao on 07-14-2023 Anion gap [Moles/Vol] 8.8 mmol/L 6.0-15.0 [facility] Serum or plasma high density lipoprotein (HDL) cholesterol measurementOrdered By: Jay Jay Pisano on 07-14-2023 Cholesterol in HDL [Mass/Vol] 54 mg/dL 23-92 [facility] Comment on above: HDL CHOL ATP-III CLA SSIFICATION Cardiovascular RiskHDL > or equal to 60 mg/dL LOWHDL < 40 mg/dL HIGH Serum or plasma total choles terol/high density lipoprotein (HDL) cholesterol mass ratOrdered By: Jay Jay Pisano on 07-14-2023 Cholesterol.total/Kathy sterol in HDL [Mass ratio] 4.1 {ratio} <5.0 [facility] Sodium [Moles/volume] in Ser um or PlasmaOrdered By: Jay Jay Pisano on 07-14-2023 Sodium [Moles/Vol] 141 mmol/L 136-145 [facility] Triglyceride [Mass/volume] i n Serum or PlasmaOrdered By: Jay Jay Pisano on 07-14-2023 Triglyceride [Mass/Vol] 153 mg/dL 0-149 [facility] Comment on above: TRIG ATP III CLASSIF ICATIONTRIG less than 150 mg/dL NormalTRIG 150-199 mg/dL Borderline highTRIG 200-500 mg/dL High TRIG greater than 500 mg/dL Very highStandard traceable to the Center for Disease Conrtrol and Prevention (CDC) test method. Urea nitrogen [Mass/volume] in Serum or PlasmaOrdered By: Jay Jay Pisano on 07-14-2023 Urea nitrogen [Mass/Vol] 16 mg/dL 7-25 [facility] WBC Auto (Bld) [#/Vol]Ordere d By: Jay Jay Pisano on 07-14-2023 WBC (Bld) [#/Vol] 4.3 10*3/uL 3.8-11.6 [facility] PAP ACOG PANEL 2: 30 to 65on 04-10-2023 . . Normal [facility] Comment on above: Performed By: #### [id number] #### [facility] [address] [address] [address] Mal Cuenca Age Gdln ACOG Testing Comment Normal [facility] Comment on above: Result Comment: <21 or >65 or no age provided Performed By: #### [id number] #### [facility] [address] [address] [address] Mal Cuenca DIAGNOSIS: Comment Normal [facility] Comment on above: Result Comment: UNSA TISFACTORY FOR EVALUATION. Performed By: #### [id number] #### [facility] [address] [address] [address] Mal Cuenca Methodology: Comment Normal [facility] Comment on above: Result Comment: This liquid based ThinPrep(R) pap test was screened with the use of an image guided system. Performed By: #### [id number] #### [facility] [address] [place] [address] Dr. Mal Cuenca Note: Comment Normal [facility] Comment on above: Result Comment: The Pap smear is a screening test designed to aid in the detection of premalignant and malignant conditions of the uterine cervix. It is not a diagnostic procedure and should not be used as the sole means of detecting cervical cancer. Both false-positive and false-negative reports do occur. . Performed By: #### [id number] #### [facility] [address] [place] [address] Dr. Mal Cuenca Performed by: Comment Normal [facility] Comment on above: Result Comment: Odalis Cook, Motor Mechanic (ASCP) Performed By: #### [id number] #### [facility] [address] [place] [address] Dr. Mal Cuenca QC reviewed by: Comment Normal [facility] Comment on above: Result Comment: Marcelo Webb, Supervisory Motor Mechanic (ASCP) Performed By: #### [id number] #### [facility] [address] [place] [address] Dr. Mal Cuenca Recommendation: Comment Normal [facility] Comment on above: Result Comment: Sugg est follow up as clinically appropriate. Performed By: #### [id number] #### [facility] [address] [place] [address] Dr. Mal Cuenca Specimen adequacy: Comment Normal [facility] Comment on above: Result Comment: Spec imen processed and examined, but unsatisfactory for evaluation of epithelial abnormality because of excessive lubricant. Performed By: #### [id number] #### [facility] [address] [place] [address] Dr. Mal Cuenca US PELVIS AND TRANSVAGon [...] by: IDALIA GUEVARA Date: 2023-03-05 14:11 Normal [facility] CHEMISTRYOrdered By: SYSTEM SYSTEM on 2023 25-hydroxyvitamin D3 [Mass/Vol] 45.7 ng/mL Normal 30.0 - 100.0 ng/mL [facility] [place]isol US BREAST ANDREW LIMITEDon US BREAST ANDREW LIMITED Patient: KERMIT ROSEN Exam Date: 12/06/2022 : 1950 Gender:F Ordering : DR DANNY SANTILLAN . Admission #: [id number] Family : Order #: [id number] CLICK HERE TO VIEW EXAM RADIOLOGY REPORT [...] Guevara M.D. on 12/06/2022 at 14:43 Normal [facility] CHEMISTRYOrdered By: SYSTEM SYSTEM on 09-12-2022 25-hydroxyvitamin D3 [Mass/Vol] 29.5 ng/mL Low 30.0 - 100.0 ng/mL [facility] CHEMISTRYOrdered By: Wm beaulieu on 09-12-2022 Cobalamin (Vitamin B12) [Mass/Vol] pg/mL Normal 50 - 1500 pg/mL [facility] CHEMISTRYOrdered By: SYSTEM SYSTEM on 09-07-2022 TSH Qn 2.20 m[IU]/L Normal 0.34 - 5.60 mcIU/mL [facility] CHEMISTRYOrdered By: SYSTEM SYSTEM on 07-12-2022 ALT No additional P-5'-P [Catalytic activity/Vol] 17 [iU]/d Normal 6 - 46 Int._Unit/L [facility] Anion gap [Moles/Vol] 9 mmol/L Normal 6 - 16 mEq/L [facility] AST [Catalytic activity/Vol] 21 [iU]/d Normal 5 - 43 Int._Unit/L [facility] Calcium [Mass/Vol] 9.5 mg/dL Normal 8.9 - 11. 1 mg/dL [facility] Chloride [Moles/Vol] 103 mmol/L Normal 101 - 1 11 mmol/L [facility] Cholesterol in HDL [Mass/Vol] 55 mg/dL Invalid Interpretation Code [facility] Cholesterol in LDL [Mass/Vol] 129 mg/dL Normal <=129mg/dL [facility] Cholesterol in VLDL [Mass/Vol] 31 mg/dL Normal 7 - 40 mg/dL [facility] Creatinine [Mass/Vol] 0.8 mg/dL Normal 0.5 - 1.3 mg/dL [facility] GFR/1.73 sq M.predicted among blacks MDRD (S/P/Bld) [Vol rate/Area] mL/min/1.73 m2 Normal >=59mL/min/1 .73 m2 [facility] [place] S GFR/1.73 sq M.predicted among non-blacks MDRD (S/P/Bld) [Vol rate/Area] mL/min/1.73 m2 Normal >=59mL/min/1 .73 m2 [facility] [place] Chem S Glucose [Mass/Vol] 101 mg/dL Normal 55 - 199 mg/dL [facility] Potassium [Moles/Vol] 4.1 mmol/L Normal 3.5 - 5.3 mmol/L [facility] Sodium [Moles/Vol] 138 mmol/L Normal 135 - 145 mmol/L [facility] Triglyceride [Mass/Vol] 157 mg/dL High <=149mg/dL [facility] Urea nitrogen [Mass/Vol] 19 mg/dL Normal 5 - 21 mg/dL [facility] Urea nitrogen/Creatinine [Mass ratio] 24 mg/mg High 10 - 20 [facility] HEMATOLOGYOrdered By: Opal Catsro on 07-12-2022 Hemoglobin (Bld) [Mass/Vol] 14.3 g/dL Normal 12.0 - 16.0 gm/dL [facility] MCH (RBC) [Entitic mass] 31.4 pg Normal 27.0 - 34.0 pg [facility] MCHC (RBC) [Mass/Vol] 34.8 g/dL Normal 31.4 - 36.0 gm/dL [facility] MCV (RBC) [Entitic vol] 90.3 fL Normal 80.0 - 100.0 fL [facility] Platelets (Bld) [#/Vol] 207.0 E9/L Normal 150. 0 - 500.0 E9/L [facility] RBC (Bld) [#/Vol] 4.6 E12/L Normal 4.3 - 5.9 E12/L [facility] WBC corrected for nucl RBC Auto (Bld) [#/Vol] 3.7 E9/L Low 4.0 - 11.0 E9/L [facility] Laboratory - Chemistry and C hemistry - challengeon 07-12-2022 Cholesterol [Mass/Vol] 129 mg/dL Normal <=129 -[facility] k 600 DO Work Phone: Cholesterol in LDL [Mass/Vol] 31 mg/dL Normal 7-40 [facility] DO Work Phone: [phone] Laboratory - Chemistry and C hemistry - [...] 8.9 fL Normal 6.4 - 10.8 fL [facility] [place] [facility] No Panel Informationon 07-12 207.0 {E9/L} Normal 150.0-500.0 [facility] 600 DO Work Phone: [phone] 90.3 fL Normal 80.0-100.0 [facility] 600 DO Work Phone: [phone] 34.8 {gm/dL} Normal 31.4-36.0 [facility] 600 DO Work Phone: 31.4 pg Normal 27.0-34.0 [facility] [employer] 600 DO Work Phone: 14.3 {gm/dL} Normal 12.0-16.0 [facility] 600 DO Work Phone: 4.6 {E12/L} Normal 4.3-5.9 [facility] 600 DO Work Phone: 3.7 {E9/L} below low threshold 4.0-11.0 [facility] k 600 DO Work Phone: 9 {mEq/L} Normal 6-16 [facility] [employer] 600 DO Work Phone: 103 mmol/L Normal 101-111 [facility] DO Work Phone: 4.1 mmol/L Normal 3.5-5.3 [facility] DO Work Phone: 138 mmol/L Normal 135-145 [facility] DO Work Phone: 9.5 mg/dL Normal 8.9-11.1 [facility] DO Work Phone: 24 {No_Units} above high threshold 10-20 [facility] DO Work Phone: 0.8 mg/dL Normal 0.5-1.3 [facility] Work Phone: 19 mg/dL Normal 5-21 [facility] DO Work Phone: 101 mg/dL Normal 55-199 [facility] DO Work Phone: [phone] Comment on above: If this glucose resu lt represents a fasting glucose, interpretation should refer to the following reference range: 55-99 mg/dL >60 Normal >=59 [facility] Work Phone: [phone] Comment on above: eGFR is race adjuste d. AA=. Chronic kidney disea se could be indicated at eGFR's of less than 60 mL/min/1.73m2. Kidney failure is indicated at less than 15 mL/min/1.73m2. 17 {Int._Unit/L} Normal 6-46 [facility] Work Phone: 21 {Int._Unit/L} Normal 5-43 [facility] DO Work Phone: 157 mg/dL above high threshold <=149 [facility] DO Work Phone: [phone] 55 mg/dL [facility] k 600 DO Work Phone: Comment on above: HDL > or equal to 60 mg/dL: Low cardiovascular riskHDL < 40 mg/dL : High cardiovascular risk PAP ACOG PANEL 2: 30 to 65on 04-23-2022 . . Normal [facility] Comment on above: Performed By: #### [id number] #### [facility] [address] [place] [address] Dr. Mal Cuenca Age Gdln ACOG Testing Comment Normal [facility] Comment on above: Result Comment: <21 or >65 or no age provided Performed By: #### [id number] #### [facility] [address] [place] [address] Dr. Mal Cuenca DIAGNOSIS: Comment [facility] Comment on above: Result Comment: NEGA TIVE FOR INTRAEPITHELIAL LESION OR MALIGNANCY. Performed By: #### [id number] #### [facility] [address] [place] [address] Dr. Mal Cuenca Methodology: Comment [facility] Comment on above: Result Comment: This liquid based ThinPrep(R) pap test was screened with the use of an image guided system. Performed By: #### [id number] #### [facility] [address] [place] [address] Dr. Mal Cuenca Note: Comment [facility] Comment on above: Result Comment: The Pap smear is a screening test designed to aid in the detection of premalignant and malignant conditions of the uterine cervix. It is not a diagnostic procedure and should not be used as the sole means of detecting cervical cancer. Both false-positive and false-negative reports do occur. . Performed By: #### [id number] #### [facility] [address] [place] [address] Dr. Mal Cuenca Performed by: Comment Normal [facility] Comment on above: Result Comment: Nora Canales, Motor Mechanic (ASCP) Performed By: #### [id number] #### [facility] [address] [place] [address] Dr. Mal Cuenca Specimen adequacy: Comment Normal [facility] Comment on above: Result Comment: Sati sfactory for evaluation. Endocervical and/or squamous metaplastic cells (endocervical component) are present. Performed By: #### [id number] #### [facility] [address] [address] [address] Mal Cuecna Falls Risk Screeningon 10-11 Fall risk assessment b) One or more fall s in the last year -[facility] 250 DO Work Phone: Tobacco use status CPHS b) No M P-[facility] 250 DO Work Phone: XR HAND GENERAL 3V PA/LAT/OB L BILATon 04-09-2021 [facility] CREATININEon 11-08-2019 Creatinine [Mass/Vol] 0.78 mg/dL Normal 0.50 - 1.05 [facility] Comment on above: Performed By: #### C REAT #### [address] [address] Creatinine [Mass/Vol] mg/dL Normal >60 [facility] Comment on above: Performed By: #### C REAT #### [address] [address] Result Comment: CALC ULATIONS OF ESTIMATED GFR ARE PERFORMED USING THE MDRD STUDY EQUATION FOR THE IDMS-TRACEABLE CREATININE METHODS. CLIN CHEM 2007;53:[id number] ELECTROLYTE PANELon 11-08-20 19 Anion gap [Moles/Vol] 13 mmol/L Normal 10 - 20 [facility] Comment on above: Performed By: #### E LECT #### [address] [address] Chloride [Moles/Vol] 106 mmol/L Normal 98 - 107 [facility] Comment on above: Performed By: #### E LECT #### [address] [address] HCO3 (Bld) [Moles/Vol] 26 mmol/L Normal 21 - 32 [facility] Comment on above: Performed By: #### E LECT #### [address] [address] Potassium [Moles/Vol] 4.0 mmol/L Normal 3.5 - 5.3 [facility] Comment on above: Performed By: #### E LECT #### [address] [address] Sodium [Moles/Vol] 141 mmol/L Normal 136 - 145 [facility] Comment on above: Performed By: #### E LECT #### [address] [address] UREA NITROGENon 11-08-2019 Urea nitrogen [Mass/Vol] 20 mg/dL Normal 6 - 23 [facility] Comment on above: Performed By: #### U KUSUM #### [address] [address] OVER READ - NCon 09-08-2017 OVER READ - NC DATE OF EXAM: Sep 08 2017 11:01AMCLINICAL HISTORY/ Name: KERMIT ROSENSTBAOY:OVER READ - [place]; 09/08/2017 11:01 amINDICATION:score. Shortness of breath with exertion. Hypertension and hypercholesterolemia. Family history of heart disease. Screening.COMPARISON: None. XIMENA CLINICIAN:CRIS GIORDANO:Hilary borjas unenhanced axial images were obtained through the mid chest for calcium score evaluation. Calcium score portion will be interpreted separately. Images are submitted for over-read.FINDINGS:No lymphadenopathy is seen. No pericardial effusion. Included [...] nodule.This interpretation, provided by the radiologists of [facility], excludes evaluation of the cardiovascular system, which iscovered in a separate report issued by the ordering cardiologists. The radiologists of [facility] have no responsibilityfor evaluating the structures of the cardiovascular system.*Follow-up recommendations according to the Fleischner Society Criteria (H MacMahon, Guidelines for management of small pulmonary nodules detected on CT scans: A statement from the [facility], Radiology 237: [phone].):<=4 mm:Low Risk Patient (Minimal or no smoking [...] 24 months, or PET and/or biopsy.. Normal [facility] Vital Signs Date Time Vital Sign Value Performing Clinician Levi chavez 08-18-2025 11:51-0400 Body mass index (BMI) [Ratio] 22.82 kg/m2 Taniya CORTEZ Work Phone: [facility] 08-18-2025 11:51-0400 Body weight 54.77 kg Taniya CORTEZ Work Phone: [facility] 08-18-2025 11:51-0400 Diastolic blood pressure 72 mm[Hg] Taniya CORTEZ Work Phone: [facility] 08-18-2025 11:51-0400 Systolic blood pressure 142 mm[Hg] Taniya CORTEZ Work Phone: [facility] 07-21-2025 14:10-0400 Body height 154.9 cm Norma BOURNE Work Phone: [facility] 07-21-2025 14:10-0400 Body mass index (BMI) [Ratio] 22.86 kg/m2 Norma Dolce DPM FACFAS Work Phone: [facility] 07-21-2025 14:10-0400 Body weight 54.88 kg Norma Dolce DPM FACFAS Work Phone: [facility] 07-21-2025 14:10-0400 Diastolic blood pressure 75 mm[Hg] Norma Dolce DPM FACFAS Work Phone: [facility] 07-21-2025 14:10-0400 Systolic blood pressure 128 mm[Hg] Norma Dolce DPM FACFAS Work Phone: [facility] 06-30-2025 14:09-0400 Body height 154.9 cm Bravo Itzkowitz DO Work Phone: [facility] 06-30-2025 14:09-0400 Body mass index (BMI) [Ratio] 22.67 kg/m2 Bravo Itzkowitz DO Work Phone: [facility] 06-30-2025 14:090400 Body weight 54.43 kg Bravo Itzkowitz DO Work Phone: [facility] 06-23-2025 13:10-0400 Body temperature 98.7 [degF] Ryley Isis DO Work Phone: [facility] 06-23-2025 13:10-0400 Diastolic blood pressure 68 mm[Hg] Ryley Isis DO Work Phone: [facility] 06-23-2025 13:10-0400 Heart rate 61 /min Ryley Isis DO Work Phone: [facility] 06-23-2025 13:10-0400 Respiratory rate 20 /min Ryley Isis DO Work Phone: [facility] 06-23-2025 13:10-0400 SaO2% (BldA) [Mass fraction] 99 % Ryley Isis DO Work Phone: [facility] 06-23-2025 13:10-0400 Systolic blood pressure 152 mm[Hg] Ryley Isis DO Work Phone: [facility] 01-19-2025 13:46-0500 Blood Pressure Location SY FUENTESSHIVAMDAYA [facility] 01-19-2025 13:46-0500 Diastolic blood pressure 82 mm[Hg] SY WICK [facility] 01-19-2025 13:46-0500 Heart rate 64 /min SYLUDIVINA WICK [facility] 01-19-2025 13:46-0500 SaO2% (BldA) [Mass fraction] 100 % SY WICK [facility] 01-19-2025 13:46-0500 Systolic blood pressure 120 mm[Hg] SYIda WICK [facility] 01-06-2025 12:58-0500 Diastolic blood pressure 63 mm[Hg] Forrest Franks [facility] 01-06-2025 12:58-0500 Heart rate 61 /min Forrest Franks [facility] 01-06-2025 12:58-0500 Mean blood pressure 88 mm[Hg] Forrest Franks [facility] 01-06-2025 12:58-0500 Respiratory rate 16 /min Forrest Franks [facility] 01-06-2025 12:58-0500 SaO2% (BldA) [Mass fraction] 96 % Forrest Franks [facility] 02-06-2025 12:58-0500 Systolic blood pressure 137 mm[Hg] Forrest Golden [facility] 01-06-2025 11:18-0500 Diastolic blood pressure 70 mm[Hg] Forrest Golden [facility] 01-06-2025 11:18-0500 Heart rate 68 /min Forrest Golden [facility] 01-06-2025 11:18-0500 Mean blood pressure 100 mm[Hg] Forrest Golden [facility] 01-06-2025 11:18-0500 Respiratory rate 16 /min Forrest Golden [facility] 01-06-2025 11:18-0500 SaO2% (BldA) [Mass fraction] 96 % Forrest Franks [facility] 01-06-2025 11:18-0500 Systolic blood pressure 160 mm[Hg] Forrest Golden [facility] 01-06-2025 10:00-0500 Body temperature 98.96 [degF] Forrest Golden [facility] 01-06-2025 09:30-0500 Body temperature 97.7 [degF] Forrest Golden [facility] 01-06-2025 09:30-0500 Diastolic blood pressure 71 mm[Hg] Forrest Golden [facility] 01-06-2025 09:30-0500 Heart rate 65 /min Forrest Golden [facility] 01-06-2025 09:30-0500 Mean blood pressure 98 mm[Hg] Forrest Golden [facility] 01-06-2025 09:30-0500 Respiratory rate 13 /min Forrest Golden [facility] 01-06-2025 09:30-0500 SaO2% (BldA) [Mass fraction] 97 % Forrest Franks [facility] 01-06-2025 09:30-0500 Systolic blood pressure 152 mm[Hg] Forrest Franks [facility] 01-06-2025 07:25-0500 Body temperature 97.7 [degF] Forrest Franks [facility] 01-06-2025 07:10-0500 Heart rate 71 /min Forrest Franks [facility] 01-06-2025 07:10-0500 Respiratory rate 16 /min Forrest Golden [facility] 12-29-2024 11:38-0500 Blood Pressure Location SY WICK [facility] 12-29-2024 11:38-0500 Diastolic blood pressure 84 mm[Hg] SY WICK [facility] 12-29-2024 11:38-0500 Heart rate 58 /min SY WICK [facility] 12-29-2024 11:38-0500 SaO2% (BldA) [Mass fraction] 97 % SY WICK [facility] 12-29-2024 11:38-0500 Systolic blood pressure 140 mm[Hg] SY WICK [facility] 12-14-2024 13:09-0500 Blood Pressure Location Severino Huerta [facility] 12-14-2024 13:09-0500 Body temperature 98.42 [degF] Severino Huerta [facility] 12-14-2024 13:09-0500 Diastolic blood pressure 88 mm[Hg] Severino Huerta [facility] 12-14-2024 13:09-0500 Heart rate 84 /min Severino Huerta [facility] 12-14-2024 13:09-0500 Respiratory rate 18 /min Severino Huerta [facility] 12-14-2024 13:09-0500 SaO2% (BldA) [Mass fraction] 96 % Severino Huerta [facility] 12-14-2024 13:09-0500 Systolic blood pressure 130 mm[Hg] Severino Huerta [facility] 11-18-2024 17:10-0500 Body height 154.9 cm Norma Dolce DPM FACFAS Work Phone: [facility] 11-18-2024 17:10-0500 Body mass index (BMI) [Ratio] 23.62 kg/m2 Norma Dolce DPM FACFAS Work Phone: [facility] 11-18-2024 17:10-0500 Body weight 56.7 kg Norma Dolce DPM FACFAS Work Phone: [facility] 11-18-2024 17:10-0500 Diastolic blood pressure 77 mm[Hg] Norma Dolce DPM FACFAS Work Phone: [facility] 11-18-2024 17:10-0500 Heart rate 72 /min Norma Dolce DPM FACFAS Work Phone: [facility] 11-18-2024 17:10-0500 Systolic blood pressure 126 mm[Hg] Norma Dolce DPM FACFAS Work Phone: [facility] 11-17-2024 10:36-0500 Body mass index (BMI) [Ratio] 23.62 kg/m2 Taniya Ordonezsharifa CORTEZ Work Phone: [facility] 11-17-2024 10:36-0500 Body weight 56.7 kg Taniya Kebede PA Work Phone: [facility] 11-17-2024 10:36-0500 Diastolic blood pressure 78 mm[Hg] Taniya Ordonezey PA Work Phone: [facility] 11-17-2024 10:36-0500 Systolic blood pressure 124 mm[Hg] Taniya Kebede PA Work Phone: [facility] 11-12-2024 10:47-0500 Diastolic blood pressure 82 mm[Hg] Singh Sellers [facility] 11-12-2024 10:47-0500 Heart rate 59 /min Singh Sellers [facility] 11-12-2024 10:47-0500 Systolic blood pressure 181 mm[Hg] Singh Sellers [facility] 10-15-2024 10:04-0500 Blood Pressure Location Vilma Mcallister [facility] 10-15-2024 10:04-0500 Body temperature 100.4 [degF] Vilma Mcallister [facility] 10-15-2024 10:04-0500 Diastolic blood pressure 62 mm[Hg] Vilma Mcallister [facility] 10-15-2024 10:04-0500 Heart rate 83 /min Vilma Mcallister [facility] 10-15-2024 10:04-0500 Respiratory rate 16 /min Vilma Mcallister [facility] 10-15-2024 10:04-0500 SaO2% (BldA) [Mass fraction] 93 % Vilma Mcallister [facility] 10-15-2024 10:04-0500 Systolic blood pressure 118 mm[Hg] Vilma Mcallister [facility] 10-11-2024 13:32-0500 Body height 154.9 cm Jay Jay Pisano MD Work Phone: [facility] 10-11-2024 13:32-0500 Body mass index (BMI) [Ratio] 23.13 kg/m2 Jay Jay Pisano MD Work Phone: [facility] 10-11-2024 13:32-0500 Body weight 55.52 kg Jay Jay Pisano MD Work Phone: [facility] 10-11-2024 13:32-0500 Diastolic blood pressure 68 mm[Hg] Jay Jay Pisano MD Work Phone: [facility] 10-11-2024 13:32-0500 Heart rate 76 /min Jay Jay Pisano MD Work Phone: [facility] 10-11-2024 13:32-0500 Systolic blood pressure 116 mm[Hg] Jay Jay Pisano MD Work Phone: [facility] 08-25-2024 11:06-0400 Body mass index (BMI) [Ratio] 23.24 kg/m2 Ryley Isis DO Work Phone: [facility] 08-25-2024 11:06-0400 Body weight 55.79 kg Ryley Isis DO Work Phone: [facility] 08-25-2024 11:06-0400 Diastolic blood pressure 78 mm[Hg] Ryley Isis DO Work Phone: [facility] 08-25-2024 11:06-0400 Systolic blood pressure 124 mm[Hg] Ryley Isis DO Work Phone: [facility] 07-09-2024 09:38-0400 Blood Pressure Location Vilma Mcallister [facility] 07-09-2024 09:38-0400 Body temperature 97.52 [degF] Vilma Mcallister [facility] 07-09-2024 09:38-0400 Diastolic blood pressure 84 mm[Hg] Vilma Mcallister [facility] 07-09-2024 09:38-0400 Heart rate 65 /min Vilma Mcallister [facility] 07-09-2024 09:38-0400 Respiratory rate 20 /min Vilma Mcallister [facility] 07-09-2024 09:38-0400 SaO2% (BldA) [Mass fraction] 100 % Vilma Mcallister [facility] 07-09-2024 09:38-0400 Systolic blood pressure 132 mm[Hg] Vilma Mcallister [facility] 05-26-2024 11:55-0400 Blood Pressure Location Vilam Mcallister [facility] 05-26-2024 11:55-0400 Body temperature 98.06 [degF] Vilma Mcallister [facility] 05-26-2024 11:55-0400 Diastolic blood pressure 64 mm[Hg] Vilma Mcallister [facility] 05-26-2024 11:55-0400 Heart rate 62 /min Vilma Mcallister [facility] 05-26-2024 11:55-0400 Respiratory rate 18 /min Vilma Mcallister [facility] 05-26-2024 11:55-0400 SaO2% (BldA) [Mass fraction] 96 % Vilma Mcallister [facility] 05-26-2024 11:55-0400 Systolic blood pressure 132 mm[Hg] Vilma Mcallister [facility] 05-26-2024 11:07-0400 Blood Pressure Location Vilma Mcallister [facility] 05-26-2024 11:07-0400 Diastolic blood pressure 64 mm[Hg] Vilma Mcallister [facility] 05-26-2024 11:07-0400 Heart rate 62 /min Vilma Mcallister [facility] 05-26-2024 11:07-0400 Respiratory rate 16 /min Vilma Mcallister [facility] 05-26-2024 11:07-0400 SaO2% (BldA) [Mass fraction] 96 % Vilma Mcallister [facility] 05-26-2024 11:07-0400 Systolic blood pressure 132 mm[Hg] Vilma Mcallister [facility] 05-12-2024 14:51-0400 Blood Pressure Location Vilma Mcallister [facility] 05-12-2024 14:51-0400 Body temperature 98.06 [degF] Vilma Mcallister [facility] 05-12-2024 14:51-0400 Diastolic blood pressure 78 mm[Hg] Vilma Mcallister [facility] 05-12-2024 14:51-0400 Heart rate 65 /min Vilma Mcallister [facility] 05-12-2024 14:51-0400 Respiratory rate 18 /min Vilma Mcallister [facility] 05-12-2024 14:51-0400 SaO2% (BldA) [Mass fraction] 98 % Vilma Mcallister [facility] 05-12-2024 14:51-0400 Systolic blood pressure 130 mm[Hg] Vilma Mcallister [facility] 05-06-2024 15:09-0400 Blood Pressure Location SY WICK [facility] 05-06-2024 15:09-0400 Body temperature 98.24 [degF] SY WICK [facility] 05-06-2024 15:09-0400 Diastolic blood pressure 72 mm[Hg] SY WICK [facility] 05-06-2024 15:09-0400 Heart rate 83 /min SY WICK [facility] 05-06-2024 15:09-0400 SaO2% (BldA) [Mass fraction] 95 % SY WICK [facility] 05-06-2024 15:09-0400 Systolic blood pressure 126 mm[Hg] SY WICK [facility] 04-14-2024 10:30-0400 Diastolic blood pressure 80 mm[Hg] Vilma Mcallister [facility] 04-14-2024 10:30-0400 Mean blood pressure 93 mm[Hg] Vilma Mcallister [facility] 04-14-2024 10:30-0400 Systolic blood pressure 120 mm[Hg] Vilma Mcallister [facility] 04-14-2024 09:37-0400 Blood Pressure Location Vilma Mcallister [facility] 04-14-2024 09:37-0400 Body temperature 97.7 [degF] Vlima Mcallister [facility] 04-14-2024 09:37-0400 Diastolic blood pressure 68 mm[Hg] Vilma Mcallister [facility] 04-14-2024 09:37-0400 Heart rate 60 /min Vilma Mcallister [facility] 04-14-2024 09:37-0400 Respiratory rate 18 /min Vilma Mcallister [facility] 04-14-2024 09:37-0400 SaO2% (BldA) [Mass fraction] 97 % Vilma Mcallister [facility] 04-14-2024 09:37-0400 Systolic blood pressure 140 mm[Hg] Vilma Mcallister [facility] 02-06-2024 10:39-0500 Blood Pressure Location Vilma Mcallister [facility] 02-06-2024 10:39-0500 Body temperature 97.52 [degF] Vilma Mcallister [facility] 02-06-2024 10:39-0500 Diastolic blood pressure 70 mm[Hg] Vilma Mcallister [facility] 02-06-2024 10:39-0500 Heart rate 67 /min Vilma Mcallister [facility] 02-06-2024 10:39-0500 Respiratory rate 18 /min Vilma Mcallister [facility] 02-06-2024 10:39-0500 SaO2% (BldA) [Mass fraction] 98 % Vilma Mcallister [facility] 02-06-2024 10:39-0500 Systolic blood pressure 130 mm[Hg] Vilma Mcallister [facility] 01-15-2024 17:18-0500 Blood Pressure Location Vilma Mcallister [facility] 01-15-2024 17:18-0500 Body temperature 97.88 [degF] Vilma Mcallister [facility] 01-15-2024 17:18-0500 Diastolic blood pressure 80 mm[Hg] Vilma Mcallister [facility] 01-15-2024 17:18-0500 Heart rate 63 /min Vilma Mcallister [facility] 01-15-2024 17:18-0500 SaO2% (BldA) [Mass fraction] 961 % Vilma Mcallister [facility] 01-15-2024 17:18-0500 Systolic blood pressure 138 mm[Hg] Vilma Mcallister [facility] 10-30-2023 09:38-0500 Blood Pressure Location Vilma Mcallister [facility] 10-30-2023 09:38-0500 Diastolic blood pressure 84 mm[Hg] Vilma Mcallister [facility] 10-30-2023 09:38-0500 Heart rate 64 /min Vilma Mcallister [facility] 10-30-2023 09:38-0500 Respiratory rate 18 /min Vilma Mcallister [facility] 10-30-2023 09:38-0500 SaO2% (BldA) [Mass fraction] 98 % Vilma Mcallister [facility] 10-30-2023 09:38-0500 Systolic blood pressure 136 mm[Hg] Vilma Mcallister [facility] 09-26-2023 09:36-0400 Blood Pressure Location Vilma Mcallister [facility] 09-26-2023 09:36-0400 Diastolic blood pressure 86 mm[Hg] Vilma Mcallister [facility] 09-26-2023 09:36-0400 Heart rate 65 /min Vilma Mcallister [facility] 09-26-2023 09:36-0400 SaO2% (BldA) [Mass fraction] 98 % Vilma Mcallister [facility] 09-26-2023 09:36-0400 Systolic blood pressure 120 mm[Hg] Vilma Mcallister [facility] 08-19-2023 11:40-0400 Diastolic blood pressure 78 mm[Hg] Camryn De La Rosa [facility] 08-19-2023 11:40-0400 Mean blood pressure 96 mm[Hg] Camryn De La Rosa [facility] 08-19-2023 11:40-0400 Systolic blood pressure 132 mm[Hg] Camryn De La Rosa [facility] 08-19-2023 10:58-0400 Blood Pressure Location Camryn De La Rosa [facility] 08-19-2023 10:58-0400 Body temperature 97.88 [degF] Camryn De La Rosa [facility] 08-19-2023 10:58-0400 Diastolic blood pressure 88 mm[Hg] Camryn Kwokler [facility] 08-19-2023 10:58-0400 Heart rate 71 /min Camryn De La Rosa [facility] 08-19-2023 10:58-0400 SaO2% (BldA) [Mass fraction] 95 % Camryn De La Rosa [facility] 08-19-2023 10:58-0400 Systolic blood pressure 160 mm[Hg] Camryn De La Rosa [facility] 07-15-2023 11:07-0400 Diastolic blood pressure 80 mm[Hg] Camryn Kwokler Work Phone: [facility] [employer] 250 DO Work Phone: 07-15-2023 11:07-0400 Systolic blood pressure 170 mm[Hg] Camryn G Missler Work Phone: [facility] [employer] 250 DO Work Phone: 07-15-2023 10:54-0400 Body height 154.94 cm Camryn Marin Missler Work Phone: [facility] [facility] [place] 250 DO Work Phone: 07-15-2023 10:54-0400 Body mass index (BMI) [Ratio] 24.22 kg/m2 Camryn Marin Missler Work Phone: [facility] 250 DO Work Phone: 07-15-2023 10:54-0400 Body surface area Derived from formula 1.56 m2 Camryn Marin Missler Work Phone: [facility] 250 DO Work Phone: 07-15-2023 10:54-0400 Body weight 58.15 kg Camryn Marin Missler Work Phone: [facility] 250 DO Work Phone: 07-15-2023 10:54-0400 Diastolic blood pressure 80 mm[Hg] Camryn Marin Missler Work Phone: [facility] 250 DO Work Phone: 07-15-2023 10:54-0400 Heart rate 60 /min Camryn Marin Missler Work Phone: [facility] 250 DO Work Phone: 07-15-2023 10:54-0400 Systolic blood pressure 162 mm[Hg] Camryn Marin Missler Work Phone: [facility] 250 DO Work Phone: 12-17-2022 11:52-0500 Blood Pressure Location Malinda Perdueonk [facility] 12-17-2022 11:52-0500 Body temperature 96.98 [degF] Malinda Klonk [facility] 12-17-2022 11:52-0500 Diastolic blood pressure 76 mm[Hg] Malinda Klonk [facility] 12-17-2022 11:52-0500 Heart rate 66 /min Malinda Klonk [facility] 12-17-2022 11:52-0500 SaO2% (BldA) [Mass fraction] 94 % Malinda Klonk [facility] 12-17-2022 11:52-0500 Systolic blood pressure 140 mm[Hg] Malinda Klonk [facility] 09-24-2022 11:59-0400 Blood Pressure Location Malinda Klonk [facility] 09-24-2022 11:59-0400 Body temperature 98.78 [degF] Malinda Klonk [facility] 09-24-2022 11:59-0400 Diastolic blood pressure 82 mm[Hg] Malinda Klonk [facility] 09-24-2022 11:59-0400 Heart rate 63 /min Malinda Klonk [facility] 09-24-2022 11:59-0400 SaO2% (BldA) [Mass fraction] 94 % Malinda Klonk [facility] 09-24-2022 11:59-0400 Systolic blood pressure 142 mm[Hg] Malinda Klonk [facility] 09-12-2022 10:36-0400 Diastolic blood pressure 78 mm[Hg] Malinda Klonk [facility] 09-12-2022 10:36-0400 Mean blood pressure 98 mm[Hg] Malinda Klonk [facility] 09-12-2022 10:36-0400 Systolic blood pressure 138 mm[Hg] Malinda Klonk [facility] 09-12-2022 10:29-0400 Blood Pressure Location Malinda Rubio [facility] 09-12-2022 10:29-0400 Body temperature 99.32 [degF] Malinda Josephk [facility] 09-12-2022 10:29-0400 Diastolic blood pressure 80 mm[Hg] Malinda Rubio [facility] 09-12-2022 10:29-0400 Heart rate 73 /min Malinda Rubio [facility] 09-12-2022 10:29-0400 SaO2% (BldA) [Mass fraction] 95 % Malinda Rubio [facility] 09-12-2022 10:29-0400 Systolic blood pressure 142 mm[Hg] Malinda Rubio [facility] 10-11-2021 12:20-0500 Diastolic blood pressure 80 mm[Hg] Cristin Roblero Work Phone: [facility] [place] 250 DO Work Phone: 10-11-2021 12:20-0500 Systolic blood pressure 138 mm[Hg] Cristin Roblero Work Phone: [facility] 250 DO Work Phone: 10-11-2021 11:52-0500 Body height 154.94 cm Cristin Roblero Work Phone: [facility] 250 DO Work Phone: 10-11-2021 11:52-0500 Body mass index (BMI) [Ratio] 23.43 kg/m2 Cristin Roblero Work Phone: [facility] 250 DO Work Phone: 10-11-2021 11:52-0500 Body surface area Derived from formula 1.54 m2 Cristin Roblero Work Phone: [facility] 250 DO Work Phone: 10-11-2021 11:52-0500 Body weight 56.25 kg Cristin Roblero Work Phone: [facility] 250 DO Work Phone: 10-11-2021 11:52-0500 Diastolic blood pressure 86 mm[Hg] Cristin Roblero Work Phone: [facility] 250 DO Work Phone: 10-11-2021 11:52-0500 Heart rate 60 /min Cristin Roblero Work Phone: [facility] 250 DO Work Phone: 10-11-2021 11:52-0500 Systolic blood pressure 152 mm[Hg] Cristin Roblero Work Phone: [facility] 250 DO Work Phone: Encounters Encounter Date Encounter Type Care Provider Facility Start: 10-31-2026 ambulatory STATION COOK-C SY WICK Facility:[facility] Start: 10-31-2025 ambulatory STATION COOK-C SY WICK Facility:[facility] Start: 08-18-2025 End: 08-18-2025 Bamboo flowsheet Taniya CORTEZ Work Phone: [facility] Start: 08-18-2025 End: 08-18-2025 Bamboo flowsheet Taniya CORTEZ Work Phone: [facility] Start: 08-18-2025 End: 08-18-2025 Patient encounter procedure Taniya CORTEZ Work Phone: [facility] Start: 08-18-2025 End: 08-18-2025 Periodic preventive med est patient 65yrs& older Taniya Kebede PA Work Phone: [facility] Comment on above: Well woman exam with routine gynecological exam; Postmenopausal state; Complex ovarian cyst Start: 07-21-2025 End: 07-21-2025 Bamboo flowsheet Norma R Dolce DPM FACFAS Work Phone: [facility] Start: 07-21-2025 End: 07-21-2025 Bamboo flowsheet Norma R Dolce DPM FACFAS Work Phone: [facility] Start: 07-21-2025 End: 07-21-2025 Office outpatient visit 15 minutes Norma R Dolce DPM FACFAS Work Phone: [facility] Comment on above: Neoplasm of uncertai n behavior of skin (Primary Dx); Plantar verruca; Pain in right foot; Pain in left foot Start: 07-21-2025 End: 07-21-2025 ambulatory NORMA R DOLCE Not Available Start: 06-30-2025 End: 06-30-2025 ambulatory BRAVO Ying DASILVA Not Available Start: 06-30-2025 End: 06-30-2025 Office outpatient visit 25 minutes Bravo Dasilva DO Work Phone: [facility] Comment on above: Personal history of malignant neoplasm of breast (Primary Dx); Abnormal mammogram Start: 06-23-2025 End: 06-23-2025 Admission to same day surgery center Bravo Dasilva DO -[facility] Start: 06-23-2025 End: 06-23-2025 ambulatory NON STAFF [facility] Work Phone: Start: 06-16-2025 End: 06-16-2025 Patient encounter procedure Bravo Dasilva DO [facility] Work Phone: Start: 06-16-2025 End: 06-16-2025 ambulatory NON STAFF [facility] Work Phone: Start: 06-14-2025 End: 06-14-2025 Patient encounter procedure Ryley Marinelli [facility] Work Phone: Start: 06-14-2025 End: 06-14-2025 ambulatory NON STAFF [facility] Work Phone: Start: 05-25-2025 ambulatory Vilma Philippe ity:Eddie HAAS Start: 05-25-2025 ambulatory Singh SPENCER Facility: [place] Start: 05-25-2025 End: 05-25-2025 ambulatory STATION COOK-C SY WICK Facility:[facility] Start: 05-25-2025 End: 05-25-2025 Patient encounter procedure SY WICK [facility] Start: 05-24-2025 End: 05-24-2025 Telephone encounter I Crescencio Tapia MD Work Phone: Colorectal Surgery Comment on above: Referral Request; ES D Start: 05-16-2025 End: 05-16-2025 ambulatory Singh Sellers [place] Start: 05-16-2025 End: 05-16-2025 Patient encounter procedure Singh Sellers [facility] Start: 05-10-2025 End: 05-10-2025 ambulatory SY WICK Facility[place] Start: 05-10-2025 End: 05-10-2025 Patient encounter procedure SY WICK [facility] Start: 05-03-2025 End: 05-03-2025 ambulatory SY WICK Facility:[facility] Start: 05-03-2025 End: 05-03-2025 Patient encounter procedure SY WICK [facility] Start: 03-22-2025 End: 03-22-2025 ambulatory SY WICK Facility:[facility] Start: 02-16-2025 End: 02-17-2025 ambulatory SY WICK [place] [place] Start: 02-16-2025 End: 02-17-2025 Patient encounter procedure SY WICK [facility] Start: 02-03-2025 End: 02-03-2025 ambulatory STATION COOK-C SY WICK Facility:[facility] Start: 02-02-2025 End: 02-02-2025 ambulatory STATION COOK-C SY WICK [place] [place] Start: 02-02-2025 End: 02-02-2025 Patient encounter procedure SY WICK [facility] Start: 01-28-2025 End: 01-28-2025 ambulatory SY WICK [place] [place] Start: 01-28-2025 End: 01-28-2025 Patient encounter procedure SY WICK [facility] Start: 01-19-2025 End: 01-19-2025 ambulatory STATION COOK-C SY WICK Facility:[facility] Start: 01-19-2025 End: 01-19-2025 Patient encounter procedure SY WICK [facility] Start: 01-12-2025 End: 01-12-2025 ambulatory HUMAN SERVICES INSTRUCTOR WISAM LOWERY Facility:[facility] Start: 01-11-2025 ambulatory STATION COOK-C SY WICK Facility:[facility] Start: 01-06-2025 End: 01-06-2025 Emergency department patient visit Forrest Franks [facility] Start: 12-29-2024 End: 12-29-2024 ambulatory STATION COOK-C SY WICK Facility:[facility] Start: 12-29-2024 End: 12-29-2024 Patient encounter procedure SY WICK [facility] [place] Start: 12-14-2024 End: 12-14-2024 ambulatory Severino Huerta Facility:[facility] [place] Start: 12-14-2024 End: 12-14-2024 Patient encounter procedure Severino Huerta [facility] Start: 11-18-2024 End: 11-18-2024 Office outpatient visit [...] curettage) Start: 11-17-2024 End: 11-17-2024 ambulatory TANIYA KEBEDE Not Available Start: 11-12-2024 End: 11-12-2024 ambulatory Vilma Mcallister Facility:[facility] Start: 11-12-2024 End: 11-12-2024 Patient encounter procedure Singh Sellers [facility] General Surgery [place] Start: 11-05-2024 End: 11-05-2024 Clinisync Result Encounter Ryley Isis DO Work Phone: [facility] Unsolicited Start: 11-05-2024 End: 11-05-2024 Clinisync Result Encounter Ryley Isis DO Work Phone: [facility] Unsolicited Start: 11-05-2024 End: 11-05-2024 ambulatory Ryley Wallo Facility:[facility] Start: 11-03-2024 ambulatory Vilma Mcallister [facility] ity:[facility] Start: 10-29-2024 End: 10-29-2024 Clinisync Result Encounter Ryley Isis DO Work Phone: [facility] Unsolicited Start: 10-29-2024 End: 10-29-2024 Clinisync Result Encounter Ryley Isis DO Work Phone: [facility] Unsolicited Start: 10-15-2024 End: 10-15-2024 ambulatory Vilma Mcallister Facility:[facility] Start: 10-15-2024 End: 10-15-2024 Patient encounter procedure Vilma Mcallister [facility] Start: 10-11-2024 End: 10-11-2024 Office outpatient visit 25 minutes Jay Jay Pisano MD Work Phone: [facility] Comment on above: Coronary artery dise ase, non-occlusive; Dyslipidemia; Essential hypertension; Mitral valve insufficiency, unspecified etiology; Hypothyroidism, unspecified type; BMI 23.0-23.9, adult; Never smoked tobacco Start: 10-11-2024 End: 10-11-2024 ambulatory JAY JAY [facility] Start: 10-06-2024 End: 10-06-2024 ambulatory Vilma Mcallister Facility:[facility] Start: 10-06-2024 End: 10-06-2024 Patient encounter procedure Vilma Mcallister [facility] Start: 09-10-2024 End: 09-10-2024 Clinisync Result Encounter Ryley Isis DO Work Phone: [facility] External Department Unsolicited Start: 09-10-2024 End: 09-10-2024 [...] examination done Ryley Isis DO Work Phone: [facility] Healthcare Start: 08-25-2024 End: 08-25-2024 ambulatory RYLEY ISIS Not Available Start: 07-09-2024 End: 07-09-2024 ambulatory Vilma Mcallister Facility:[facility] Start: 07-09-2024 End: 07-09-2024 Patient encounter procedure Vilma Mcallister [facility] Start: 05-26-2024 End: 05-26-2024 Patient encounter procedure Vilma Mcallister [facility] Start: 05-26-2024 End: 05-26-2024 Well adult monitoring check done Vilma Mcallister [facility] Start: 05-26-2024 End: 05-26-2024 Patient encounter procedure Vilma Mcallister [facility] Start: 05-13-2024 End: 05-13-2024 ambulatory Vilma Mcallister [place] [place] Start: 05-13-2024 End: 05-13-2024 Patient encounter procedure Vilma Mcallister [facility] Start: 05-12-2024 End: 05-12-2024 Patient encounter procedure Vilma Mcallister [facility] Start: 05-06-2024 End: 05-06-2024 Patient encounter procedure SY WICK [facility] [place] Start: 04-14-2024 End: 04-14-2024 Patient encounter procedure Vilma Mcallister [facility] Start: 03-10-2024 End: 03-10-2024 Patient encounter procedure Vilma Mcallister [facility] Start: 02-06-2024 End: 02-06-2024 Patient encounter procedure Vilma Mcallister [facility] Start: 01-22-2024 End: 01-22-2024 Patient encounter procedure Vilma Mcallister [facility] Start: 01-21-2024 End: 01-21-2024 Patient encounter procedure Vilma Mcallister [facility] Start: 01-15-2024 End: 01-15-2024 Patient encounter procedure Vilma Mcallister [facility] Start: 11-04-2023 End: 11-04-2023 ambulatory INSTANT PRINTER OPERATOR-C Camryn Murry Rj Work Phone: [facility] Work Phone: Start: 11-04-2023 End: 11-04-2023 Patient encounter procedure INSTANT PRINTER OPERATOR-C Camrynrachel De La Rosa Work Phone: [facility] [place] Work Phone: Start: 10-30-2023 End: 10-30-2023 Patient encounter procedure Vilma Mcallister [facility] Start: 10-18-2023 End: 10-18-2023 Patient encounter procedure Vilma Mcallister [facility] Start: 09-26-2023 End: 09-26-2023 Patient encounter procedure Vilma Mcallister [facility] Start: 09-26-2023 End: 09-26-2023 Well adult monitoring check done Vilma Mcallister [facility] Start: 08-19-2023 End: 08-19-2023 Patient encounter procedure Camryn De La Rosa [facility] Start: 08-19-2023 End: 08-19-2023 Well adult monitoring check done Camryn De La Rosa [facility] Start: 07-16-2023 Chart Update Camrynrachel marcial Work Phone: [facility] 250 DO Work Phone: Start: 07-15-2023 ambulatory Ms. Camryn De La Rosa Facility: Start: 07-15-2023 Office outpatient vi sit 25 minutes Camryn De La Rosa Work Phone: [facility] 250 DO Work Phone: Start: 07-14-2023 End: 07-14-2023 ambulatory INSTANT PRINTER OPERATOR-C Camryn De La Rosa Work Phone: [facility] Work Phone: Start: 07-14-2023 End: 07-14-2023 Patient encounter procedure INSTANT PRINTER OPERATOR-C Camryn De La Rosa Work Phone: [facility] [place] Work Phone: Start: 04-01-2023 End: 04-01-[address] DANNY SANTILLAN . Facility:[facility] Start: 03-05-2023 End: 03-06-[address] DANNY SANTILLAN . Facility:[facility] Start: 02-12-2023 Rx Renewal Cristin Roblero Work Phone: [facility] 250 DO Work Phone: Start: 01-28-2023 End: 01-28-2023 Patient encounter procedure Cory Sarah TRES [facility] General Surgery [place] Start: 01-21-2023 End: 01-21-2023 Patient encounter procedure Cory JOSHUA [facility] Start: 2023 End: 2023 Patient encounter procedure Malinda Rubio [facility] Start: 12-17-2022 End: 12-17-2022 Patient encounter procedure Malinda Rubio [facility] Start: 12-06-2022 End: 12-07-[address] DANNY SANTILLAN . Facility: Start: 09-24-2022 End: 09-24-2022 Patient encounter procedure Malinda Rubio [facility] Start: 09-17-2022 End: 09-17-2022 Off-Site Malinda Rubio [facility] Start: 09-12-2022 End: 09-12-2022 Patient encounter procedure Malinda Rubio [facility] Start: 09-07-2022 End: 09-07-2022 Patient encounter procedure Malinda Rubio [facility] Start: 07-12-2022 Chart Update Cristin Roblero Work Phone: [facility] 600 DO Work Phone: Start: 07-12-2022 End: 07-12-2022 Patient encounter procedure Jay Jay Pisano [facility] Start: 04-15-2022 End: 04-15-[address] DANNY SANTILLAN . Facility: Start: 10-11-2021 Office outpatient vi sit 25 minutes Cristin Roblero Work Phone: [facility] [address] [place] Work Phone: Start: 10-11-2021 Patient encounter procedure Cristin Roblero Work Phone: [facility] 250 DO Work Phone: Start: 04-09-2021 End: 04-09-2021 Subsequent hospital visit by physician Xr [facility] Comment on above: Bilateral hand pain [M79.641, M79.642] Start: 09-08-2017 Ambulatory CRIS VALENZUELA Facility:1 637 Procedures Date Procedure Procedure Detail Performing Clinician Start: 06-23-2025 Ultrasonography guid ed biopsy of right breast Ryley Isis DO Work Phone: Start: 06-14-2025 Mammography of right breast Ryley Isis DO Work Phone: Start: 06-14-2025 Ultrasonography of r ight breast Ryley Isis DO Work Phone: Start: 05-16-2025 Colonoscopy Singh [place] Start: 11-05-2024 ALL CBC WITH AUTO DIFF Ryley Isis DO Work Phone: Start: 10-29-2024 ALL CBC WITH AUTO DIFF Ryley Isis DO Work Phone: Start: 09-10-2024 ALL BASIC METABOLIC PANEL Ryley Isis DO Work Phone: Start: 11-04-2023 MRI of bilateral garrison asts with contrast ANIKA Kwokaggie Work Phone: Start: 04-09-2021 Radex hand minimum 3 views Socorro Rooney MD Work Phone: Start: 02-02-2021 Biopsy of breast Jay Jay Pisano Comment on above: sentinel node Start: 02-02-2021 Lumpectomy of right breast Jay Jay Pisano Start: 01-12-2021 Ultrasonography guid ed biopsy of right breast Jay Jay Pisano Start: 12-01-2014 Total colonoscopy Cristin Roblero Work Phone: Biopsy of breast Cristin Coon on Work Phone: Cardiac catheterization Cristin Roblero Work Phone: Comment on above: 2018 40% LAD; Dilation and curettage Margarito Marin Rj Work Phone: Dilation and curettage Margarito coats Rj H/O: surgery S/P D&C (status post dilation and curettage) Taniya CORTEZ Work Phone: Ligation of fallopian tube Katherine Roblero Work Phone: Ligation of fallopian tube H kaia Pisano Lumpectomy of breast Cristin Roblero Work Phone: Comment on above: left; Tonsillectomy Cristin Roblero Work Phone: Tonsillectomy Jay Jay Pisano Ultrasonography guid ed biopsy of right breast Cory CARRIONMiguel Plan of Treatment Date Care Activity Detail Author Start: 08-21-2026 End: 08-21-2026 Patient encounter procedure 08/21/2026 1:00 PM EDT Procedure Visit JODIE JAIN [address] [place] [id number] Taniya Kebede PA [address] [place] [address] JOIDE JAIN Start: 10-11-2025 End: 10-11-2025 Patient encounter procedure 10/11/2025 10:30 AM EST Office Visit [facility] [address] [place] [phone] Jay Jay Pisano MD [address] [place] [address] [facility] Start: 08-18-2025 End: 08-18-2026 DXA Skeletal system Views for bone density DEXA bone density Imaging Routine Postmenopausal state Expected: 08/18/2025 (Approximate), Expires: 08/18/2026 [facility] Work Phone: Comment on above: Expected: 08/18/2025 (Approximate), Expires: 08/18/2026 Start: 08-04-2025 End: 08-04-2025 Patient encounter procedure 08/04/2025 3:10 PM EDT Office Visit [facility] [address] [place] [phone] Norma Vargas R, DPM FACFAS [address] [place] [address] [facility] Start: 08-01-2025 Influenza vaccination Influenz a Vaccine (Season Ended) [facility] Start: 07-21-2025 End: 07-21-2025 Patient encounter procedure 07/21/2025 2:00 PM EDT Office Visit [facility] [address] [place] [phone] Norma Vargas R, DPM FACFAS [address] [place] [address] Arrived [facility] Comment on above: Arrived Start: 06-23-2025 Mammography of right breast MM post biopsy RT w/CAD [facility] Start: 06-23-2025 MG Breast - right Single view [facility] Start: 05-23-2025 End: 05-23-2025 Patient encounter procedure 05/23/2025 1:00 PM EDT Office Visit [facility] [address] [place] [phone] Ryley Marinelli DO [address] [place] [address] [facility] Start: 05-19-2025 End: 05-19-2025 Patient encounter procedure 05/19/2025 4:30 PM EDT Office Visit [facility] [address] [place] [phone] Norma Vargas, DPM FACFAS [address] [facility] [place] [address] [facility] Start: 01-18-2025 End: 01-18-2025 Patient encounter procedure 01/18/2025 10:15 AM EST Office Visit [facility] [address] [place] [phone] Rajinder Christina, DO [address] [place] [address] [facility] Start: 2025 RSV Vaccine (1 - 1-d ose 75+ series) RSV Vaccine (1 - 1-dose 75+ series) [facility] Start: 12-01-2024 Advance Directive Discussion Advance Directive Discussion [facility] Start: 11-19-2024 End: 11-19-2024 Patient encounter procedure 11/19/2024 10:30 AM EST Office Visit [facility] [address] [place] [phone] Zahler, Rajinder D, DO [address] [place] [address] [facility] Start: 11-18-2024 End: 11-18-2024 Patient encounter procedure [facility] Comment on above: Arrived Start: 11-17-2024 End: 11-17-2024 Patient encounter procedure [facility] Comment on above: Arrived Start: 09-17-2024 End: 09-17-2024 Patient encounter procedure 09/17/2024 9:30 AM EDT Procedure Visit [facility] Ryley Marinelli, DO [address] [place], [facility] Start: 08-25-2024 End: 08-25-2024 Patient encounter procedure 08/25/2024 11:00 AM EDT Consult [facility] [address] [place] [address] Ryley Marinelli, DO [address] [place], [facility] Arrived [facility] Comment on above: Arrived Start: 08-01-2024 COVID-19 Vaccine ( season) COVID-19 Vaccine ( season) [facility] Start: 08-01-2024 Influenza vaccination Influenza Vacc ine (#1) [facility] Start: 07-14-2024 FUV, Provider: Jay Jay Pisano, Status: Pen, Time: 11:00 AM FUV, Provider: Jay Jay Pisano, Status: Pen, Time: 11:00 AM [facility] 250 DO Work Phone: Start: 08-01-2023 Influenza vaccination INFLUENZA (#1) [facility] Start: 07-29-2023 NURSEVST, Provider: JANETT ALLAN COMMERCIAL MAKEUP ARTIST [id number], Status: Pen, Time: 11:00 AM NURSEVST, Provider: JANETT ALLAN COMMERCIAL MAKEUP ARTIST 1,[id number], Status: Pen, Time: 11:00 AM [facility] 250 DO Work Phone: Start: 07-15-2023 FUV, Provider: Jay Jay Pisano, Status: Pen, Time: 10:30 AM FUV, Provider: Jay Jay Pisano, Status: Pen, Time: 10:30 AM [facility] 250 DO Work Phone: Start: 12-01-2022 ADVANCE DIRECTIVE DISCUSSION ADVANCE DIRECTIVE DISCUSSION [facility] Start: 12-01-2022 DEPRESSION ASSESSMENT DEPRESSION ASS ESSMENT [facility] Start: 07-16-2022 FUV, Provider: Jay Jay Pisano, Status: Pen, Time: 11:00 AM FUV, Provider: Jay Jay Pisano, Status: Pen, Time: 11:00 AM [facility] 250 DO Work Phone: Start: 05-22-2020 DTaP/Tdap/Td Vaccine s (2 - Td or Tdap) DTaP/Tdap/Td Vaccines (2 - Td or Tdap) [facility] Start: 05-22-2020 Urine microalbumin profile DTaP,Tdap,Td Vaccine (2 - Td or Tdap) [facility] Start: 2015 BONE DENSITY BONE DENSITY [facility] Start: 2015 PNEUMOCOCCAL: 65+ (1 - PCV) PNEUMOCOCCAL: 65+ (1 - PCV) [facility] Start: 2015 Screening for osteoporosis Bone Density Screening [facility] Start: 2010 RSV High Risk: (Elde rly (60+) or Population) (1 - Risk 60-74 years 1-dose series) RSV High Risk: (Elderly (60+) or Population) (1 - Risk 60-74 years 1-dose series) [facility] Start: 2000 SHINGRIX VACCINE (1 of 2) SHINGRIX VACCINE (1 of 2) [facility] Start: 2000 Zoster Vaccines (1 o f 2) Zoster Vaccines (1 of 2) [facility] Start: 1995 COLOGUARD (FIT-DNA) COLOGUARD (FIT-D NA) [facility] Start: 1995 Colonoscopy COLONOSCOPY [facility] Start: 1995 COLORECTAL CANCER SCREENING COLORECTAL CANCER SCREENING [facility] Start: [address] COLONOGRAPHY [facility] Start: 1995 DIABET[facility]EN [facility] Start: 1995 Diabetes Screening Diabetes Screenin g [facility] Start: 1995 FECAL OCCULT BLOOD FECAL OCCULT BLOO D [facility] Start: 1995 Lipid panel Lipid Screening [facility] Start: 1995 LIPID SCREEN LIPID SCREEN [facility] Start: 1995 Screening for malign ant neoplasm of colon [facility] Start: 1995 SIGMOIDOSCOPY SIGMOIDOSCOPY [facility] Start: 1990 Mammography MAMMOGRAM [facility] Start: 1990 Screening for malign ant neoplasm of breast Mammogram [facility] Start: 1969 Urine microalbumin profile DTAP,TDAP,TD (1 - Tdap) [facility] Start: 1968 Anxiety Screening Anxiety Screening [facility] Start: 1968 Depression Screening Depression Scre ening [facility] Start: 1968 HEPATITIS C SCREENING HEPATITIS C [facility] Start: 1968 Hepatitis C screening Hepatitis C [facility] Start: 1950 COVID-19 VACCINE (#1) COVID-19 VACCI NE (#1) [facility] Start: 1950 Lipid panel Lipid Panel [facility] Start: 1950 Medicare Annual Wellness Visit Medicare Annual Wellness Visit (AWV) [facility] Start: 1950 Screening for malign ant neoplasm of colon [facility] Start: 1950 Screening for osteoporosis Bone Density Scan [facility] Start: 1950 Thyroid stimulating hormone measurement TSH Level [facility] THIN PREP TIS PAP AN D HR HPV DNA THIN PREP TIS PAP AND HR HPV DNA Pathology and Cytology Routine Well woman exam with routine gynecological exam Ordered: 08/18/2025 [facility] Comment on above: Ordered: 08/18/2025 Immunizations Immunization Date Immunization Notes Care Provider Steven scanlon 01-31-2020 pneumococcal conjuga te vaccine, 13 valent Cristin Roblero Work Phone: [facility] 250 DO Work Phone: 09-25-2019 pneumococcal conjuga te vaccine, 13 valent Goyal Pisano [facility] 09-20-2019 pneumococcal conjuga te vaccine, 13 valent Cristin Roblero Work Phone: [facility] 600 DO Work Phone: 12-01-2018 pneumococcal polysaccharide vaccine, 23 valent Cristin Roblero Work Phone: [facility] 08-31-2015 influenza virus vaccine, unspecified formulation Cristin Roblero Work Phone: [facility] 600 DO Work Phone: 04-02-2013 influenza virus vaccine, unspecified formulation Goyal Pisano [facility] 05-22-2010 tetanus toxoid, reduced diphtheria toxoid, and acellular pertussis vaccine, adsorbed Goyal Pisano [facility] NEGATED: Highlighted row has not occurred!12-29-2024 influenza virus vaccine, unspecified formulation SY WICK [facility] [place] NEGATED: Highlighted row has not occurred!12-14-2024 influenza virus vaccine, unspecified formulation Severino Huerta [facility] NEGATED: Highlighted row has not occurred!09-26-2023 influenza virus vaccine, unspecified formulation Vilma Mcallister [facility] NEGATED: Highlighted row has not occurred!08-19-2023 influenza virus vaccine, unspecified formulation Camryn De La Rosa [facility] NEGATED: Highlighted row has not occurred!09-12-2022 influenza virus vaccine, unspecified formulation Malinda Perdueonk [facility] NEGATED: Highlighted row has not occurred!02-07-2020 influenza virus vaccine, live, attenuated, for intranasal use Goyal Pisano [facility] Payers Date Payer Category Payer Self-pay [id number] 2022 Medicare (Managed Care) 1.2. [id number] 2022 Unknown 2021 Unknown [id number] 2017 Private Health Insurance [id number] .[id number] 2014 Medicare [id number]. 1.13.159.2 .[id number] 1959 Unknown [id number] 1950 Unknown [id number] 2.16.840.1.848100.3.579.2 .593 1950 Unknown [id number] 2.16.840.1.098986.3.579.2 .593 1950 Unknown [id number] 2.16.840.1.844596.3.579.2 .593 1950 Unknown [id number] 2.16.840.1.863270.3.579.2 .593 1950 Unknown [id number] 2.16.840.1.934999.3.579.2 .356 1950 Unknown [id number] 2.16.840.1.331926.3.579.2 .1244 1950 Unknown [id number] 2.16.840.1.313757.3.579.2 .727 1950 Unknown [id number] 2.16.840.1.812806.3.579.2 .727 1950 Unknown [id number] 2.16.840.1.445702.3.579.2 1950 Unknown [id number] 2.16.840.1.542847.3.579.2 1950 Unknown [id number] 2.16.840.1.015880.3.579.2 1950 Unknown [id number] 2.16.840.1.670630.3.579.2 1950 Unknown [id number] 2.16.840.1.783513.3.579. 1950 Unknown [id number] 2.16.840.1.508021.3.579. 1950 Unknown [id number] 2.16.840.1.994365.3.579. 1950 Unknown [id number] 2.16.840.1.543225.3.579.2 1950 Unknown [id number] 2.16.840.1.469103.3.579. 1950 Unknown [id number] 2.16.840.1.801068.3.579.2 1950 Unknown [id number] 2.16.840.1.005505.3.579.2 1950 Unknown [id number] 2.16.840.1.995847.3.579.2 1950 Unknown [id number] 2.16.840.1.288104.3.579.2 1950 Unknown [id number] 2.16.840.1.517902.3.579.2 1950 Unknown [id number] 2.16.840.1.002479.3.579.2 1950 Unknown [id number] 2.16.840.1.379514.3.579.2 .727 1950 Unknown [id number] 2.16.840.1.180628.3.579.2 .7 1950 Unknown [id number] 2.16.840.1.133501.3.579.2 .727 1950 Unknown [id number] 2.16.840.1.903872.3.579.2 .7 1950 Unknown [id number] 2.16.840.1.822028.3.579.2 .727 1950 Unknown [id number] 2.16.840.1.968407.3.579.2 .1950 Unknown [id number] 2.16.840.1.586398.3.579.2 .7 1950 Unknown [id number] 2.16.840.1.647832.3.579.2 .1950 Unknown [id number] 2.16.840.1.341362.3.579.2 .7 1950 Unknown [id number] 2.16.840.1.481776.3.579.2 .9 1950 Unknown [id number] 2.16.840.1.591698.3.579.2 .9 1950 Unknown [id number] 2.16.840.1.462275.3.579.2 .1258 1950 Unknown [id number] 2.16.840.1.707632.3.579.2 .1259 1950 Unknown [id number] 2.16.840.1.452948.3.579.2 .1259 Medicare Medicare [id number] Private Health Insurance [employer] [id number] Unknown [employer] [id number] Unknown [id number] 2.16.840.1.400210.3.579.2 .531 Unknown [id number] 2.16.840.1.456346.3.579.2 .531 Unknown [id number] 2.16.840.1.114402.3.579.2 .531 Unknown [id number] 2.16.840.1.737627.3.579.2 .531 Social History Date Type Detail Facility Start: 04-09-2021 End: 06-10-2023 Caffeine use Caffeine use -[facility] 250 DO Work Phone: Comment on above: 2 cups of coffee abdirahman ly; occasional; 1 cup of coffee beto y; Start: 01-25-2022 End: 06-05-2023 Tobacco smoking status Never smoked tobacco (finding) [facility] Tobacco smoking status Never [facility] Start: 04-09-2021 End: 06-10-2023 Sex Assigned At Female [facility] Start: 04-09-2021 End: 10-11-2024 Tobacco use and exposure Smokeless tobacco non-user [facility] Start: 1950 Sex Assigned At Not on file C [facility] Start: 03-10-2021 End: 10-11-2024 Exposure to SARS-CoV-2 (event) Not sure [facility] Start: 1950 Sex Assigned At Female [facility] Start: 08-25-2024 End: 07-21-2025 Alcoholic beverage intake Current drinker of alcohol (finding) [facility] Start: 06-05-2023 Alcohol Comment Alcohol: 1 or 2 drinks, 2 to 4 times a month; Caffeine: 1-2 cups/day [facility] Start: 10-11-2024 Alcoholic beverage intake Ex-drinker (finding) [facility] Work Phone: Sexual Orientation [facility] Start: 03-14-2010 Sex Female (finding) [facility] Work Phone: Functional Status Date Assessment Result Facility 01-19-2025 Functional Status N/A [facility] 01-06-2025 Functional Status N/A [facility] 12-29-2024 Functional Status N/A [facility] 12-14-2024 Functional Status Yes [facility] 10-15-2024 Functional Status N/A [facility] 07-09-2024 Functional Status N/A [facility] 05-26-2024 Functional Status N/A [facility] 05-12-2024 Functional Status N/A [facility] 05-06-2024 Functional Status N/A [facility] 04-14-2024 Functional Status N/A [facility] 12-17-2022 Functional Status N/A [facility] 09-24-2022 Functional Status N/A [facility] 09-17-2022 Functional Status Telehealth Patient [facility] 09-12-2022 Functional Status N/A [facility] Clinical Notes 08-02-2021 to 08-18-2025 DIEGO Leon - 08/18/2025 11:30 AM Karime Vargas DPM FACFAS - 07/21/2025 2:00 PM EDTFedin Dasilva DO - 06/30/2025 2:00 PM EDT Note Date & Type Note Facility 08-18-2025 History of Present illness Narrative Reason for Appointment: Patient ID: Kermit Rosen is a 75 y.o. female who presents for Well Women Visit Patient presents today for Annual Exam. MEDICATIONS Current Outpatient Medications Medication Instructions albuterol HFA 90 mcg/act inhaler Martell Thyroid 30 MG tablet Every 24 hours [...] BMI 23.0-23.9, adult Breast cancer in female (HCC) Breast cancer screening Dizziness and giddiness Dry [...] BMI 23.0-23.9, adult Breast cancer in female (HCC) Breast cancer screening Chronic GERD Dizziness and [...] Date BREAST BIOPSY Right BREAST LUMPECTOMY Right [place] Node DILATION AND CURETTAGE OF UTERUS 06/30/2023 [...] nursing note reviewed. Exam conducted with a photocopy operator present. Vitals: Estimated body mass index is 22.82 kg/m as calculated from the following: Height [...] them. Patient can also view results via [employer]. I reinforced importance of condom use for [...] and avoiding tobacco and excessive alcohol. Discussed purpose of DEXA in assessing fracture risk and monitoring [...] help with her vaginal dryness and bleeding. We explained using a hormone cream is not advised. Follow Up: Patient is to return to our office in one year for annual exam unless needed otherwise. Documented by DIEGO Leon on behalf of: DIEGO Leon documented in this encounter [facility] 07-21-2025 History of Present illness Narrative Images from the original note were not included. Patient: Kermit Rosen : 1950 PCP: Reggie Martinez MD SUBJECTIVE This is a 75 y.o. female that presents today with a chief complaint of a painful lesion plantar aspect of the foot. They state the lesion has been slow growing and has multipled. The area is painful and causes marked limitation in ambulation secondary to the pain. They have attempted grjj-ogm-zpwabsc anti-inflammatory medications as well as vsof-mhh-bjulbnv wart treatment to no avail. Allergies: Allergies [...] BMI 23.0-23.9, adult Breast cancer in female (HCC) Breast cancer screening Chronic GERD Dizziness and [...] 90 mcg/act inhaler, , Disp: , Rfl: Martell Thyroid 30 MG tablet, 1 (one) time each day at the same time, Disp: , Rfl: aspirin 81 MG EC tablet, 1 (one) time each day at the same time, Disp: , Rfl: coenzyme Q-10 100 MG capsule, Take 100 mg by mouth in the morning., Disp: , Rfl: Elderberry 500 MG capsule, , Disp: , Rfl: metoprolol succinate XL (Toprol-XL) 50 MG 24 hr tablet, Take 50 mg by mouth in the morning., Disp: , Rfl: nitroglycerin (Nitrostat) 0.4 MG SL tablet, Place 0.4 mg under the tongue, Disp: , Rfl: Oxytocin-Sodium Chloride 15-0.9 UT/250ML-% solution, Infuse into a venous catheter, Disp: , Rfl: progesterone (Endometrin) 100 MG vaginal insert, Insert 100 mg into the vagina in the morning and 100 mg before bedtime., Disp: , Rfl: sertraline (Zoloft) 50 MG tablet, Take 50 mg by mouth Daily, Disp: , Rfl: valsartan (Diovan) 160 MG tablet, 1 (one) time each day at the same time, Disp: , Rfl: Review of systems: Constitutional: [...] lesion. The lesions are multiple and sporadic. B/l plantar forefoot VASC: DP /PT were palpable bilateral. Capillary refill time < 3 seconds Digits 1-5 bilateral NEURO: Johnston Ramon 5.07 monofilament was intact B/L. Vibratory [...] dressing. REANNA Syed documented in this encounter [facility] 06-30-2025 History of Present illness Narrative Kermit Rosen 1950 Kermit Rosen is a 75 y.o. female presents with chief complaint of Right breast bx results (Breast clinic patient) HPI: SAQIB Ballard was initially seen in the breast clinic for abnormal imaging results. She had a biopsy of the right breast and presents for the results. She has a history of right breast cancer and [place] a [place] with [place] [facility] [place] She refused post-op chemo & XRT, as well as hormonal treatment. She had a new lesion in 2022 which was biopsied and found to be benign. Last years imaging again showed a change in the previously biopsied are and it was recommended that she undergo another biopsy which was recently completed. SUBJECTIVE: MEDICATIONS: ALLERGIES Current Outpatient Medications Medication Instructions albuterol HFA 90 mcg/act inhaler Martell Thyroid 30 MG tablet Every 24 hours [...] sertraline (ZOLOFT) 50 mg, Oral, Daily thyroid (Martell Thyroid) 30 MG tablet valsartan (Diovan) 160 MG tablet Every 24 hours Allergies Allergen Reactions Citalopram Other Reaction(s): Muscle [...] Reaction(s): BP rises, Intolerance raised blood pressure PAST MEDICAL HISTORY: SOCIAL HISTORY SURGICAL HISTORY: Past Medical History: Diagnosis Date Abnormal uterine bleeding (AUB) Anxiety BMI 23.0-23.9, adult Breast cancer in female (HCC) Breast cancer screening Chronic GERD Dizziness and [...] Social History Tobacco Use Smoking status: Never Substance Use Topics Alcohol use: Yes Comment: Alcohol: 1 or 2 drinks, 2 to 4 times a month; Caffeine: 1-2 cups/day Drug use: Never Past Surgical History: Procedure Laterality Date BREAST BIOPSY Right BREAST LUMPECTOMY Right [place] Node DILATION AND CURETTAGE OF UTERUS 06/30/2023 DILATION AND CURETTAGE OF UTERUS 11/05/2024 hysteroscopy w/myosure HYSTEROSCOPY 06/30/2023 w/myosure, dx lap with dayami LASER LAPAROSCOPY 06/30/2023 TUBAL LIGATION FAMILY HISTORY Family History Problem Relation Name Age of Onset Cancer Mother Brain Aneurysm Father Colon cancer Brother Diabetes Sibling Hypertension Sibling Hyperlipidemia Sibling Heart disease Sibling Stroke Sibling Cancer Sibling REVIEW OF SYMPTOMS: Review of Systems Constitutional: Negative for diaphoresis and unexpected weight change. HENT: Negative for hearing loss, tinnitus and voice change. Respiratory: Negative for shortness of breath. Cardiovascular: Negative for chest pain and palpitations. Musculoskeletal: Negative for arthralgias. Neurological: Positive for headaches. Negative for dizziness and seizures. Psychiatric/Behavioral: Depression All other systems reviewed and are negative. Hematological: Negative for adenopathy. Does not bruise/bleed easily. OBJECTIVE: Visit Vitals OB Status Postmenopausal Smoking Status Never Physical Exam Vitals reviewed. HENT: Head: Normocephalic. Eyes: Pupils: Pupils are equal, round, and reactive to light. Cardiovascular: Rate and Rhythm: Normal rate and regular rhythm. Pulmonary: Effort: Pulmonary effort is normal. Abdominal: General: Bowel sounds are normal. Palpations: Abdomen is soft. Musculoskeletal: General: Normal range of motion. Skin: General: Skin is warm. Neurological: General: No focal deficit present. Mental Status: She is alert. ASSESSMENT AND PLAN: Assessment/Plan Diagnoses and all orders for this visit: Personal history of malignant neoplasm of breast Abnormal mammogram Kermit presents for the results of the right breast biopsy, the path indicated benign breast and fibroadipose tissue, however the radiologist feels that is discordant with the imaging and suggests surgical excisional biopsy or resection of the area. I discussed this with Kermit and she states she is a natura;list and herbal medication cured her cancer the first time. I explained that we need to do an excisional biopsy to make sure she doesn't have a recurrence. She will talk to her family and let me know if she wants to schedule the biopsy or not. I will wait to hear from her before scheduling surgery. documented in this encounter [facility] 06-23-2025 Radiology Diagnostic study note [facility] [place] [address] [place], [place] [id number] Ultrasound Report Signed Patient: Kermit Rosen MR#: [id number] : 1950 Acct:[id number] Age/Sex: 75 / F ADM Date: 5 Loc: [facility] Room: Type: [facility] Attending Dr: Bravo Dasilva DO Ordering Provider: Bravo Dasilva DO Date of Service: 06/23/25 US/US biopsy RT 1st lesion guid: N63.11 Copies to: Bravo Dasilva DO~ ULTRASOUND GUIDED VACUUM-ASSISTED HOLOGIC ATEC SYSTEM CORE BIOPSIES OF THE RIGHTBREAST: CLINICAL DATA: Mass right breast PROCEDURE: The risks, benefits and alternatives to an ultrasound guided vacuum-assisted Hologic ATEC system core biopsy procedure were discussed with the patient and written informed consent was obtained. Ultrasonographic survey of the 10:00 position of the right breast was performed by applied technologist . Additional scanning of the right axilla demonstrates no suspicious lymph nodes. The patient's overlying skin was anesthetized with 1% lidocaine. The deeper softtissues up to and around the mass were anesthetized with lidocaine mixed with epinephrine. Following this, multiple core biopsies of the right breast mass were performed using a 12-gauge [employer]ivity vacuum-assisted core biopsy needle under ultrasound guidance. [...] migration. US/US biopsy RT 1st lesion guid IMPRESSION: STATUS POST ULTRASOUND GUIDED VACUUM-ASSISTED CORE BIOPSIES OF THE RIGHT BREAST. RESULT CODE: NL Impression dictated by: Edgar Arellano Jr., D.OJuanita 06/23/2025 1:55 PM Dictation Location: [facility] Tech: Mansi Loredo Transcribed By: WHITNEY 06/23/25 [id number] Dictated By: Edgar Arellano Jr, DO 06/23/25 1319 Signed By: 06/23/25 [id number] [facility] 06-16-2025 Evaluation note Diagnosis Onset Date Resolution Breast mass, right acute May 312024 12:13pm [facility] Work Phone: 1(896) 155-217507-17-2025 Evaluation note* Diagnosis Onset Date Resolution Status Admit Date Breast mass, right acute May 312024 12:13pm Breast mass, right acute June 012024 12:34pm [facility] Work Phone: 1(858) 400-503807-15-2025 [facility] [place] [address] [place], [place] [id number] Ultrasound Report Signed Patient: Kermit Rosen MR#: [id number] : 1950 Acct:[id number] Age/Sex: 75 / F ADM Date: 5 Loc: [place] Room: Type: [facility] Attending Dr: Ryley Marinelli DO Ordering Provider: Ryley Marinelli Date of Service: 06/14/25 MM/MM diagnostic mammo RT w/CAD: R92.8 ([id number]) US/US breast RT limited: R92.8 Copies to: Ryley Marinelli~ RIGHT Diagnostic Full Field digital mammogram with 3-D imaging. Full field digital CC and MLO imaging performed. CAD utilized. COMPARISON: 11/25/2024 HISTORY: Annual screening BREAST COMPOSITION: Scattered fibroglandular densities of the breast parenchyma identified BREAST CALCIFICATIONS: Benign calcifications present. VASCULAR CALCIFICATIONS: None ARCHITECTURAL DISTORTION: None BREAST NODULE: A lobular spiculated nodule of the right breast redemonstrated. Adjacent biopsy clipredemonstrated. AXILLARY LYMPH NODES: Normal POSTSURGICAL CHANGES: Right lumpectomy changes with axillary lymph node clips redemonstrated. Targeted right breast ultrasound performed. Comparison 07/12/2024 there is identification of a lobular taller than wide hypoechoic shadowing lesion measuring 4 x 6 x 6 mm. The lesion is at the 10:00 position 6 cm from the nipple. Adjacent clip confirmed with mammogram. Structure anterior to to the ar ea is rounded measuring 3 x 3 x [...] Location: [facility] Tech: Meme Cardoza; Carmen Wilson Transcribed By: WHITNEY 06/14/25 1623 Dictated By: Jerardo Munoz DO 06/14/25 1615 Signed By: 06/14/25 1623 [facility]06-24-2025 Telephone encounter Note* Telephone Encounter - Augustine Chung - 05/24/2025 11:23 AM EDT Kermit quezada referred to Dr. Tapia for ESD procedure. Records received and scanned to chart.Colored pics will be sent to [email or web address]. Spoke with Ms. Rosen and explained the process. She was transferred to registration to update her insurance. [facility]06-24-2025 Miscellaneous Notes* Telephone Encounter - Augustine Chung - 05/24/2025 11:23 AM EDT Kermit quezada referred to Dr. Tapia for ESD procedure. Records received and scanned to chart.Colored pics will be sent to [email or web address]. Spoke with Ms. Rosen and explained the process. She was transferred to registration to update her insurance. [facility] Evaluation + Plan note Extracted from: Title:Preoperative H&P: Author:Singh Sellers MD Date:05/16/25 Impression and Plan Plan: proceed with scheduled procedure Extracted from: Title:ANES Post-operative Note - General Author: Juan David Anand Jr., DO Date:05/16/25 Plan Transfer/Discharge: Transfer/Discharge Discharge when meets criteria ( From PACU to Ambulatory Surgery Unit, and To home ). Extracted from: Title:ANES Pre-operative Note - Endo Author:Fernanda waller Jr. Juan David LAY Date:05/16/25 Plan [place] [employer]hesi[employer] (ASA) physical status classification: Class III. Anesthetic Preoperative Plan: Anesthesia General, and -TIVA. Future Appointments Appointment Date:05/25/2025 03:30:00 PM Scheduled Provider: [place] [place] [facility] Appointment Type:FM Medicare Wellness [facility] 06-16-2025 NoteHistory and Physical Patient: KERMIT ROSEN Age: 75 years Sex: Female : 1950 Associated Diagnoses: None Author: Singh Sellers MD Preoperative Information Diagnosis/Chief Compliant Chief Complaint as above HPI: 75-year-old female here today for screening colonoscopy Review of Systems All systems reviewed, negative except for what mentioned above Histories Past Medical History: Active Hypothyroidism ([id number]) Postmenopause atrophic vaginitis ([id number]) Hernia, ventral ([id number]) Anxiety ([id number]) Resolved ([id number]): Onset on 03/04/1977 at 27 years. Resolved on 11/25/1977 at 27 years. ([id number]): Onset on 04/27/1974 at 24 years. Resolved on 02/01/1975 at 25 years. ([id number]): Onset on 07/13/1969 at 19 years. Resolved on 04/19/1970 at 20 years. Hypokalemia ([id number]): Resolved. B12 deficiency ([id number]): Resolved. Breast cancer of upper-inner quadrant of right female breast ([id number]): Resolved. 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 Bronchitis ([id number]): Resolved. Vaginal bleeding problems ([id number]): Resolved. Pneumonia ([id number]): Resolved. Family History: Brother: () Age at unknown. Acute myocardial infarction Alcoholism Cancer - unknown origin Diabetes mellitus type 2 Sister Stroke Diabetes mellitus type 2 Brother: () Age at unknown. Acute myocardial infarction Alcoholism Colon cancer stage 4 Brother: () Age at unknown. Acute myocardial infarction Brother Acute myocardial infarction Hyperlipidemia Hypertension Brother Hyperlipidemia Hypertension Father: () Cause of : brain aneurysm Age at unknown. Brain aneurysm Mother: () Cause of : cancer Age at unknown. Cancer - unknown origin Procedure history: Colonoscopy ([id number]) on 05/16/2025 at 75 Years. Lumpectomy of right breast ([id number]) on 02/02/2021 at 71 Years. Biopsy of breast ([id number]) on 02/02/2021 at 71 Years. Comments: 02/02/2021 16:37 MARTY John RN, [place] sentinel node Ultrasonography guided biopsy of right breast ([id number]) on 01/12/2021 at 71 Years. Tonsillectomy ([id number]). Tubal ligation ([id number]). Ultrasonography guided biopsy of right breast ([id number]). Dilation and curettage ([id number]). Social History Social & Psychosocial Habits Alcohol 05/03/2025 Risk Assessment: Low Risk 05/03/2025 Type: Liquor, Wine Frequency: 1-2 times per week Use: Current Comment: Patient states she drinks one glass of wine or liquor weekly. - 05/26/2024 12:45 - Marycarmen Mills LPN Exercise Comment: stretching exercises and walks - 07/06/2019 11:27 - Taniya Wu MA 05/03/2025 Risk Assessment: Does not exercise Substance Abuse 05/03/2025 Risk Assessment: Denies Substance Abuse 05/03/2025 Concerns about substance abuse in household: No Tobacco 05/03/2025 Risk Assessment: Denies Tobacco Use 05/03/2025 Tobacco Use: Never (less than 100 in l Smokeless tobacco use: Never Concerns about tobacco use in household: No . Physical Examination Vital Signs (last 24 hrs) Last Charted Temp Temporal 36.4 DegC (MAY 16 08:31) Heart Rate Monitored 70 bpm (MAY 16 08:56) Resp Rate 18 br/min (MAY 16 08:56) SBP 133 mmHg (MAY 16 08:56) DBP 75 mmHg (MAY 16 08:56) Weight 54.4 kg (MAY 16 07:18) BMI 22.94 (MAY 16 07:18) GEN: In NAD Abd: Soft, NTND Impression and Plan Plan: proceed with [facility] procedure[facility]Comment on above:Result Comment: Electronically Signed By: Marlo RAY, Singh Patinobr\Date and Time Signed: 05/16/25 11:42 [id number] Hospital Discharge instructions Patient Education 05/16/2025 08:43:23 Hemorrhoids, Ogep-oz-Ycxg Hemorrhoids Hemorrhoids are swollen veins that may form: In the butt (rectum). These are called internal hemorrhoids. Around the opening of the butt (anus). These are called external hemorrhoids. Most hemorrhoids do not cause very bad problems. They often get better with changes to your lifestyle and what you eat. What are the causes? Having trouble pooping (constipation) or watery poop (diarrhea). Pushing too hard when you poop. . Being very overweight (obese). Sitting for too long. Riding a bike for a long time. Heavy lifting or other things that take a lot of effort. Anal sex. What are the signs or symptoms? Pain. Itching or soreness in the butt. Bleeding from the butt. Leaking poop. Swelling. One or more lumps around the opening of your butt. How is this treated? In most cases, hemorrhoids can be treated at home. You may be told to: Change what you eat. Make changes to your lifestyle. If these treatments do not help, you may need to have a procedure done. Your doctor may need to: Place rubber bands at the bottom of the hemorrhoids to make them fall off. Put medicine into the hemorrhoids to shrink them. Shine a type of light on the hemorrhoids to cause them to fall off. Do surgery to get rid of the hemorrhoids. Follow these instructions at home: Medicines Take jest-giz-ykaqctf and prescription medicines only as told by your doctor. Use creams with medicine in them or medicines that you put in your butt as told by your doctor. Eating and drinking Eat foods that have a lot of fiber in them. These include whole grains, beans, nuts, fruits, and vegetables. Ask your doctor about taking products that have fiber added to them (fibersupplements). Take in less fat. You can do this by: ?Eating low-fat dairy products. ?Eating less red meat. ?Staying away from processed foods. Drink enough fluid to keep your pee (urine) pale yellow. Managing pain and swelling Take a warm-water bath (sitz bath) for 20 minutes to ease pain. Do this 3 4 times a day. You may dothis in a bathtub. You may also use a portable sitz bath that fits over the toilet. If told, put ice on the painful area. It may help to use ice between your warm baths. ?Put ice in a plastic bag. ?Place a towel between your skin and the bag. ?Leave the ice on for 20 minutes, 2 3 times a day. If your skin turns bright red, take off the ice right away to prevent skin damage. The risk of damage is higher if you cannot feel pain, heat, or cold. General instructions Exercise. Ask your doctor how much and what kind of exercise is best for you. Go to the bathroom when you need to poop. Do not wait. Try not to push too hard when you poop. Keep your butt dry and clean. Use wet toilet paper or moist towelettes after you poop. Do not sit on the toilet for a long time. Contact a doctor if: You have pain and swelling that do not get better with treatment. You have trouble pooping. You cannot poop. You have pain or swelling outside the area of the hemorrhoids. Get help right away if: You have bleeding from the butt that will not stop. This information is not intended to replace advice given to you by your health care provider. Make sure you discuss any questions you have with your health care provider. Document Revised: 07/30/2023 Document Reviewed: 07/30/2023 [employer] Patient Education 2023 [employer]. 05/16/2025 08:43:09 Diverticulosis MAGR (CUSTOM) Diverticulosis Many people have small pouches in their colon called diverticulum. The diverticulum bulge outward through weak spots in the colon. You could have one or more of these pouches in the colon. The condition of having these pouches in the colon is called diverticulosis or diverticular disease. Diverticulosis is usually diagnosed by tests to evaluate something else. For example, you may have had a colonoscopy to screen for colon cancer when the diverticulosis was found. Most people with diverticulosis do not have any discomfort or problems. If symptoms develop, they may include mild cramps, bloating, and constipation. A complication of this condition is called diverticulitis. This is when the diverticulum become inflamed and infected. How to treat diverticulosis: Increasing the amount of fiber in the diet may reduce symptoms of diverticulosis and prevent complications such as diverticulitis (infected diverticuli). Fiber keeps stool soft and lowers pressure inside the colon so that bowel contents can move througheasily. You should eat 20 to 35 grams of fiber each day. The table below shows the amount of fiber in some foods that you can easily add to your diet. Adding fiber slowly may decrease the bloating and fullness sometimes felt with an immediate high fiber diet. The doctor may also recommend taking a fiber product such as Citrucel or Metamucil once a day. In the past people with diverticulosis were to avoid nuts, corn, and seeds. This has not been foundto be true. If you find that certain foods create cramping or bloating, avoid that food. Foods high in fiber include: Fresh fruits, fresh vegetables, legumes (beans), whole wheat bread, bran muffins or cereal, and nuts. See the table below for examples of high fiber foods. Remember, your goal is 20- 35 grams per day. Amount of fiber in different foods Food Serving Grams of fiber Fruits Apple (with skin) 1 medium apple 4.4 Banana 1 medium banana 3.1 Oranges 1 orange 3.1 Prunes 1 cup, pitted 12.4 Juices Apple, unsweetened, w/added ascorbic acid 1 cup 0.5 Grapefruit, white, canned, sweetened 1 cup 0.2 Grape, unsweetened, w/added ascorbic acid 1 cup 0.5 [place] 1 cup 0.7 Vegetables Cooked Green beans 1 cup 4.0 Carrots 1/2 cup sliced 2.3 Peas 1 cup 8.8 Potato (baked, with skin) 1 medium potato 3.8 Raw [place] (with peel) 1 cucumber 1.5 Lettuce 1 cup shredded 0.5 Tomato 1 medium tomato 1.5 Spinach 1 cup 0.7 Legumes Baked beans, canned, no salt added 1 cup 13.9 Kidney beans, canned 1 cup 13.6 [place] beans, canned 1 cup 11.6 Lentils, boiled 1 cup 15.6 Breads, pastas, flours Bran muffins 1 medium muffin 5.2 Oatmeal, cooked 1 cup 4.0 White bread 1 slice 0.6 Whole-wheat bread 1 slice 1.9 Pasta and rice, cooked Macaroni 1 cup 2.5 Rice, brown 1 cup 3.5 Rice, white 1 cup 0.6 Spaghetti (regular) 1 cup 2.5 Nuts Almonds 1/2 cup 8.7 Peanuts 1/2 cup 7.9 Chart from [facility] 2013. SEEK IMMEDIATE MEDICAL CARE IF: You develop abdominal (belly) pain. An oral temperature above _ 101 F__develops. Repeated vomiting occurs. Blood is being passed in stools (bright red or black tarry stools). You develop any bowel problems or changes which you have not had before. Extra Information: To learn how much fiber and other nutrients are in different foods, visit the [place] Department of Agriculture (USDA) National Nutrient Database at: http://www.nal.usda.gov/fnic/foodcomp/search/ Created using data from the USDA National Nutrient Database for Standard Reference. Available at http://www.nal.usda.gov/fnic/foodcomp/search/. Information adapted from: [facility] Patient Information [address] [employer] [facility]. [facility] 2012 [email or web address].Boxxet/contents/hoqmxxxwmafy-zfvoyll-ubdbou-the-basics 05/16/2025 08:43:06 Colon Polyps Colon Polyps Colon polyps are tissue growths inside the colon, which is part of the large intestine. They are one of the types of polyps that can grow in the body. A polyp may be a round bump or a mushroom-shapedgrowth. You could have one polyp or more than one. Most colon polyps are noncancerous (benign). However, some colon polyps can become cancerous over time. Finding and removing the polyps early can help prevent this. What are the causes? The exact cause of colon polyps is not known. What increases the risk? The following factors may make you more likely to develop this condition: Having a family history of colorectal cancer or colon polyps. Being older than 45 years of age. Being younger than 45 years of age and having a significant family history of colorectal cancer or colon polyps or a genetic condition that puts you at higher risk of getting colon polyps. Having inflammatory bowel disease, such as ulcerative colitis or Crohn's disease. Having certain conditions passed from parent to child (hereditary conditions), such as: ?Familial adenomatous polyposis (FAP). ?Toney syndrome. ?Turcot syndrome. ?Peutz Jeghers syndrome. ?MUTYH-associated polyposis (MAP). Being overweight. Certain lifestyle factors. These include smoking cigarettes, drinking too much alcohol, not gettingenough exercise, and eating a diet that is high in fat and red meat and low in fiber. Having had childhood cancer that was treated with radiation of the abdomen. What are the signs or symptoms? Many times, there are no symptoms. If you have symptoms, they may include: Blood coming from the rectum during a bowel movement. Blood in the stool (feces). The blood may be bright red or very dark in color. Pain in the abdomen. A change in bowel habits, such as constipation or diarrhea. How is this diagnosed? This condition is diagnosed with a colonoscopy. This is a procedure in which a lighted, flexible scope is inserted into the opening between the buttocks (anus) and then passed into the colon to examine the area. Polyps are sometimes found when a colonoscopy is done as part of routine cancer screening tests. How is this treated? This condition is treated by removing any polyps that are found. Most polyps can be removed during a colonoscopy. Those polyps will then be tested for cancer. Additional treatment may be needed depending on the results of testing. Follow these instructions at home: Eating and drinking Eat foods that are high in fiber, such as fruits, vegetables, and whole grains. Eat foods that are high in calcium and vitamin D, such as milk, cheese, yogurt, eggs, liver, fish, and broccoli. Limit foods that are high in fat, such as fried foods and desserts. Limit the amount of red meat, precooked or cured meat, or other processed meat that you eat, such as hot dogs, sausages, torres, or meat loaves. Limit sugary drinks. Lifestyle Maintain a healthy weight, or lose weight if recommended by your health care provider. Exercise every day or as told by your health care provider. Do not use any products that contain nicotine or tobacco, such as cigarettes, e- cigarettes, and chewing tobacco. If you need help quitting, ask your health care provider. Do not drink alcohol if: ?Your health [...] hard liquor (44 mL). General instructions Take fmfz-bxo-zlgmhwu and prescription medicines only as told by your health care provider. Keep all follow-up visits. This is important. This includes having regularly scheduled colonoscopies. Talk to your health care provider about when you need a colonoscopy. Contact a health care provider if: You have new or worsening bleeding during a bowel movement. You have new or increased blood in your stool. You have a change in bowel habits. You lose weight for no known reason. Summary Colon polyps are tissue growths inside the colon, which is part of the large intestine. They are one type of polyp that can grow in the body. Most colon polyps are noncancerous (benign), but some can become cancerous over time. This condition is diagnosed with a colonoscopy. This condition is treated by removing any polyps that are found. Most polyps can be removed during a colonoscopy. This information is not intended to replace advice given to you by your health care provider. Make sure you discuss any questions you have with your health care provider. Document Revised: 03/07/2021 Document Reviewed: 03/07/2021 [employer] Patient Education 2023 [employer]. 05/16/2025 08:43:05 Colonoscopy, Care After Surgery Salam (CUSTOM) Colonoscopy Care After Surgery Please read the instructions outlined below and refer to this sheet in the next few weeks. These discharge instructions provide you with general information on caring for yourself after you leave thespital. Your doctor may also give you specific instructions. While your treatment has been planned according to the most current medical practices available, unavoidable complications occasionally occur. If you have any problems or questions after discharge, please call your doctor. ACTIVITY You may resume your regular activity, but move at a slower pace for the next 24 hours. Take frequent rest periods for the next 24 hours. Walking will help get rid of the air and reduce the bloated feeling in your abdomen (belly). No driving for 24 hours (because of the anesthesia (medicine) used during the test). You may shower. Do not sign any important legal documents or operate any machinery for 24 hours (because of the anesthesia used during the test). NUTRITION Drink plenty of fluids. You may resume your normal diet as instructed by your doctor. Begin with a light meal and progress to your normal diet. Heavy or fried foods are harder to digestand may make you feel nauseated (sick to your stomach). Avoid alcoholic beverages for 24 hours or as instructed. MEDICATIONS You may resume your normal medications unless your doctor tells you otherwise. WHAT YOU CAN EXPECT TODAY Some feelings of bloating in the abdomen. Passage of more gas than usual. Spotting of blood in your stool or on the toilet paper. FOLLOW-UP Your doctor will discuss the results of your test with you. SEEK IMMEDIATE MEDICAL ATTENTION IF: There is more than a spotting of blood in your stool. There is abdominal distention (your abdomen is swollen). There is vomiting. You have a temperature over 101.5 F. There is abdominal pain or discomfort that is severe or gets worse throughout the day. Follow Up Care 11/12/2024 11:27:23 With:Marlo RAY, TY Mccallum Address: [address] [place] [phone] When:1 to 2 weeks only if needed Comments:Call for any problems. [facility] 06-16-2025 NoteProgress Note-Physician Patient: KERMIT ROSEN Age: 75 years Sex: Female : 1950 Associated Diagnoses: None Author: Juan David Anand Jr., DO Postoperative Information Postoperative disposition: Postoperative disposition: Home. Optimetrix number: Optimetrix number [id number]. Anesthetic utilized: General. Physical Examination Vital Signs 05/16/2025 8:56 EDT Heart Rate Monitored 70 bpm Respiratory Rate Monitored 18 br/min Systolic Blood Pressure 133 mmHg Diastolic Blood Pressure 75 mmHg Mean Arterial Pressure, Cuff 94 mmHg SpO2 90 % 05/16/2025 8:40 EDT Heart Rate Monitored 61 bpm 05/16/2025 8:40 EDT Respiratory Rate Monitored 15 br/min 05/16/2025 8:40 EDT SpO2 97 % 05/16/2025 8:40 EDT Systolic Blood Pressure 103 mmHg Diastolic Blood Pressure 59 mmHg Mean Arterial Pressure, Cuff 74 mmHg 05/16/2025 8:31 EDT SpO2 96 % 05/16/2025 8:31 EDT Systolic Blood Pressure 82 mmHg LOW Diastolic Blood Pressure 54 mmHg LOW 05/16/2025 8:31 EDT Temperature Temporal Artery 36.4 DegC Heart Rate Monitored 64 bpm Respiratory Rate Monitored 13 br/min Mean Arterial Pressure, Cuff 63 mmHg Pain Assessment: Controlled. General: Awake, Alert, Appropriate. Respiratory: Adequate air exchange, Non-labored. Cardiovascular: Stable, Normal peripheral perfusion. Neurological: Neurologic exam at baseline. No changes.. Assessment Anesthetic outcome No anesthetic complications noted. No nausea/vomiting. Review / Management Condition: Stable. Plan Transfer/Discharge: Transfer/Discharge Discharge when meets criteria ( From PACU to Ambulatory Surgery Unit, and To home ).[facility]:Result Comment: Electronically Signed By: Juan David Anand Jr., DO\.reg\Date and Time Signed: 05/16/25 09:18 [id number] NotePatient Education - Text Diverticulosis Many people have small pouches in their colon called diverticulum. The diverticulum bulge outward through weak spots in the colon. You could have one or more of these pouches in the colon. The condition of having these pouches in the colon is called diverticulosis or diverticular disease. Diverticulosis is usually diagnosed by tests to evaluate something else. For example, you may have had a colonoscopy to screen for colon cancer when the diverticulosis was found. Most people with diverticulosis do not have any discomfort or problems. If symptoms develop, they may include mild cramps, bloating, and constipation. A complication of this condition is called diverticulitis. This is when the diverticulum become inflamed and infected. How to treat diverticulosis: Increasing the amount of fiber in the diet may reduce symptoms of diverticulosis and prevent complications such as diverticulitis (infected diverticuli). Fiber keeps stool soft and lowers pressure inside the colon so that bowel contents can move througheasily. You should eat 20 to 35 grams of fiber each day. The table below shows the amount of fiber in some foods that you can easily add to your diet. Adding fiber slowly may decrease the bloating and fullness sometimes felt with an immediate high fiber diet. The doctor may also recommend taking a fiber product such as Citrucel or Metamucil once a day. In the past people with diverticulosis were to avoid nuts, corn, and seeds. This has not been foundto be true. If you find that certain foods create cramping or bloating, avoid that food. Foods high in fiber include: Fresh fruits, fresh vegetables, legumes (beans), whole wheat bread, bran muffins or cereal, and nuts. See the table below for examples of high fiber foods. Remember, your goal is 20- 35 grams per day. Amount of fiber in different foods Food Serving Grams of fiber Fruits Apple (with skin) 1 medium apple 4.4 Banana 1 medium banana 3.1 Oranges 1 orange 3.1 Prunes 1 cup, pitted 12.4 Juices Apple, unsweetened, w/added ascorbic acid 1 cup 0.5 Grapefruit, white, canned, sweetened 1 cup 0.2 Grape, unsweetened, w/added ascorbic acid 1 cup 0.5 [place] 1 cup 0.7 Vegetables Cooked Green beans 1 cup 4.0 Carrots 1/2 cup sliced 2.3 Peas 1 cup 8.8 Potato (baked, with skin) 1 medium potato 3.8 Raw [place] (with peel) 1 cucumber 1.5 Lettuce 1 cup shredded 0.5 Tomato 1 medium tomato 1.5 Spinach 1 cup 0.7 Legumes Baked beans, canned, no salt added 1 cup 13.9 Kidney beans, canned 1 cup 13.6 [place] beans, canned 1 cup 11.6 Lentils, boiled 1 cup 15.6 Breads, pastas, flours Bran muffins 1 medium muffin 5.2 Oatmeal, cooked 1 cup 4.0 White bread 1 slice 0.6 Whole-wheat bread 1 slice 1.9 Pasta and rice, cooked Macaroni 1 cup 2.5 Rice, brown 1 cup 3.5 Rice, white 1 cup 0.6 Spaghetti (regular) 1 cup 2.5 Nuts Almonds 1/2 cup 8.7 Peanuts 1/2 cup 7.9 Chart from [facility] 2013. SEEK IMMEDIATE MEDICAL CARE IF: You develop abdominal (belly) pain. An oral temperature above _ 101??? F__develops. Repeated vomiting occurs. Blood is being passed in stools (bright red or black tarry stools). You develop any bowel problems or changes which you have not had before. Extra Information: To learn how much fiber and other nutrients are in different foods, visit the [place] Department of Agriculture (USDA) National Nutrient Database at: http://www.[employer].usda.gov/fnic/foodcomp/search/ Created using data from the USDA National Nutrient Database for Standard Reference. Available at http://www.[employer].ShopRunner.gov/fnic/foodcomp/search/. Information adapted from: [facility] [place] Patient Information ???2009 [employer]. [facility] 2013 http://www.Boxxet/contents/kjljohthytbk-egrmhfc-pvdrwh-the-basics Colonoscopy Care After Surgery Please read the instructions outlined below and refer to this sheet in the next few weeks. These discharge instructions provide you with general information on caring for [facility] Your doctor may also give you specific instructions. While your treatment has been planned according to the most current medical practices available, unavoidable complications occasionally occur. If you have any problems or questions after discharge, please call your doctor. ACTIVITY You may resume your regular activity, but move at a slower pace for the next 24 hours. Take frequent rest periods for the next 24 hours. Walking will help get rid of the air and reduce the bloated feeling in your abdomen (belly). No driving for 24 hours (because of the anesthesia (medicine) used during the test). You may shower. Do not sign any important legal documents or operate any machinery for 24 hours (because of the anesthesia used during the test). NUTRITION Drink plenty of fluids. You may resume your normal diet as instructed by your doctor. Beg (more content not included)...[facility] Note Progress Note-Physician Patient: KERMIT ROSEN Age: 75 years Sex: Female : 1950 Associated Diagnoses: None Author: Juan David Anand Jr., DO Preoperative Information Anesthesia history: Patient history: No prior anesthetic problems. Informed consent: Signed by patient. Re-evaluation prior to induction: Initial evaluation reviewed: No significant change. Review of Systems Respiratory: Negative except as documented in history of present illness. Cardiovascular: Negative except as documented in history of present illness. Health Status Allergies: Allergic Reactions (Selected) Moderate Citalopram Hydrobromide- Unknown. Propranolol- Hives. Mild Diclofenac sodium- Bp rises. Severity Not Documented CeleXA- Unknown. Doxycycline- Yeast infection. HydroCHLOROthiazide- Electrolyte disturbance. Lisinopril- Unknown. Voltaren Topical- Hypertension., Allergies (8) Active Severity Reaction propranolol Moderate hives Citalopram Hydrobromide Moderate Unknown diclofenac sodium Mild BP rises hydroCHLOROthiazide Electrolyte disturbance doxycycline Yeast infection lisinopril Unknown CeleXA Unknown Voltaren Topical Hypertension Current medications: (Selected) Inpatient Medications Ordered Sodium Chloride 0.9% IV Francisca 1000 mL 1,000 mL: 1,000 mL, IV, 20 mL/hr, Routine, Start date 05/16/25 6:38:00 EDT, 50 hour(s), Total volume (mL): 1,000, 55.5 kg, 1.54, m2 Prescriptions Prescribed Martell Thyroid 30 mg Tab: 30 mg = 1 tab(s), Oral, Daily, no Generic substitutions please -, X 90 day(s), # 90 tab(s), Refills(s) 3, Pharmacy: [facility], 154, cm, 10/15/24 10:15:00 EST, Height/Length Dosing, 55.6, kg, 10/15/24 10:15:00 EST, Weight Dosing cyclobenzaprine 5 mg Tab: 5 mg = 1 tab(s), Oral, TID, # 30 tab(s), Refills(s) 1, Pharmacy: [facility], 154, cm, 01/19/25 13:51:00 EST, Height/Length Dosing, 57.2, kg, 01/19/25 13:51:00 EST, Weight Dosing hydrOXYzine hydrochloride 25 mg Tab: 25 mg = 1 tab(s), Oral, QID, # 30 tab(s), Refills(s) 1, Pharmacy: [facility], 154, cm, 05/03/25 13:19:00 EDT, Height/Length Dosing, 55.5, kg, 05/03/25 13:19:00 EDT, Weight Dosing triamcinolone Top 0.1% Crm 15 gram: 1 christiano, Topical, TID, 30 gram, Refill(s) 0, [facility], 154, cm, 05/03/25 13:19:00 EDT, Height/Length Dosing, 55.5, kg, 05/03/25 13:19:00 EDT, Weight Dosing Documented Medications Documented Elderberry Gummies with Vitamin C and Zinc: 1 tablet, Chewed, Daily, Refill(s) 0, Prophylaxis Garlic: See Instructions, 1 tab daily OTC NAC Detox Regulators: NAC Detox Regulators, Oral, Daily, Selenium 500 mcg, Molybdenum 50 mcg, and N-Acetylcysteine 600 mg Nitric Oxide Foundation: Nitric Oxide Foundation, 2 tab(s), Oral, Daily, Vitamin C 290 mg, Thiamin 90mg, B12 200 mcg, Magnesium 75 mg, Potassium 189 mg, 500mg (postassium nitrate, beet root extract and fermented beet root powder). For Circulatory Support Vitamin C 500 mg oral tablet, chewable: 500 mg = 1 tab(s), Chewed, Daily, Refills(s) 0, Prophylaxis Vitamin K2: 100 mcg, Oral, Daily, Refill(s) 0, Prophylaxis aspirin 81 mg Chew Tab: mg tab(s), Chewed, Daily, Refills(s) 0, Prophylaxis iodine: Oral, Daily, Refills(s) 0, Prophylaxis magnesium amino acids chelate: Oral, Daily, Refills(s) 0, Prophylaxis metoprolol 50 mg ER Tab: 50 mg = 1 tab(s), Oral, Daily, # 30 tab(s), Refills(s) 0, High blood pressure sertraline 50 mg Tab: 50 mg = 1 tab(s), Oral, Daily, # 90 tab(s), Refills(s) 3, Anxiety valsartan 160 mg Tab: 160 mg = 1 tab(s), Oral, Daily, Refills(s) 0, High blood pressure zinc acetate 50 mg oral capsule: 50 mg = 1 cap(s), Oral, Daily, on an empty stomach 1 hour before or 2 hours after eating, Prophylaxis, Home Medications (17) Active Martell Thyroid 30 mg Tab 30 mg = 1 tab(s), Oral, Daily aspirin 81 mg Chew Tab , Chewed, Daily cyclobenzaprine 5 mg Tab 5 mg = 1 tab(s), Oral, TID Elderberry Gummies with Vitamin C and Zinc 1 tablet, Chewed, Daily Garlic See Instructions hydrOXYzine hydrochloride 25 mg Tab 25 mg = 1 tab(s), Oral, QID iodine , Oral, Daily magnesium amino acids chelate , Oral, Daily metoprolol 50 mg ER Tab 50 mg = 1 tab(s), Oral, Daily NAC Detox Regulators , Oral, Daily Nitric Oxide Foundation 2 tab(s), Oral, Daily sertraline 50 mg Tab 50 mg = 1 tab(s), Oral, Daily triamcinolone Top 0.1% Crm 15 gram 1 christiano, Topical, TID valsartan 160 mg Tab 160 mg = 1 tab(s), Oral, Daily Vitamin C 500 mg oral tablet, chewable 500 mg = 1 tab(s), Chewed, Daily Vitamin K2 100 mcg, Oral, Daily zinc acetate 50 mg oral capsule 50 mg = 1 cap(s), Oral, Daily , Medications (1) Active Scheduled: (0) Continuous: (1) Sodium Chloride 0.9% 1,000 mL 1,000 mL, IV, 20 mL/hr PRN: (0) Problem list: All Problems Abdominal pain / SNOMED CT 61915781 / Confirmed Allergies / SNOMED CT 1512433942 / Confirmed Anxiety / SNOMED CT 43663232 / Confirmed Atypical migraine / SNOMED CT 36824420 (more content not included)...[facility]:Result Comment: Electronically Signed By: Juan David Anand Jr., DO.reg\Date and Time Signed: 05/16/25 07:20 [id number] Evaluation + Plan noteExtracted from: Title:ED Note Author:Forrest Franks DO Date: Abrasion of elbow (S50.319A: Abrasion of unspecified elbow, initial encounter) Accidental fall (W19.XXXA: Unspecified fall, initial encounter) Pain in rib (R07.81: Pleurodynia) Rib fractures (S22.49XA: Multiple fractures of ribs, unspecified side, initial encounter for closed fracture) Orders: acetaminophen-oxycodone, 1 tab(s), Tab, Oral, Once, Stop date 01/06/25 11:46:00 EST, STAT, Start date 01/06/25 11:46:00 EST lidocaine topical, 1 patch(es), Topical, Daily, 7 EA, Refill(s) 0, apply 12 hours on and 12 hours off daily, [facility], cm, 01/06/25 7:16:00 EST, Height/Length Dosing, 57.2, kg, 01/06/25 7:16:00 EST, Weight Dosing morphine, 2 mg = 1 mL, Injection, IV Push, Once, Stop date 01/06/25 7:47:00 EST, STAT, Start date 01/06/25 7:47:00 EST, 01/06/25 7:47:00 EST naproxen, 500 mg = 1 tab(s), Oral, BID, PRN for pain, # 20 tab(s), Refills(s) 0, [facility], cm, 01/06/25 7:16:00 EST, Height/Length Dosing, 57.2, kg, 01/06/25 7:16:00 EST, Weight Dosing ondansetron, 4 mg = 2 mL, Injection, IV Push, Once, Stop date 01/06/25 7:47:00 EST, STAT, Start date 01/06/25 7:47:00 EST, 01/06/25 7:47:00 EST oxycodone, 5 mg = 1 cap(s), Oral, q6hr, PRN Pain 8-10, X 3 day(s), # 12 cap(s), Refills(s) 0, [facility], cm, 01/06/25 7:16:00 EST, Height/Length Dosing, 57.2, kg, 01/06/25 7:16:00 EST, Weight Dosing CT Chest w/o Contrast CT Head or Brain w/o Contrast CT Spine Cervical w/o Contrast XR Elbow 3+ Views Right Future Appointments Appointment Date:05/16/2025 08:00:00 AM Scheduled Provider: Location:[facility] Appointment Type:Surgery FT Appointment Date:05/25/2025 02:30:00 PM Scheduled Provider: [place] [place] [place] [facility] Appointment Type:FM Medicare Wellness Subsequent Future Scheduled Tests Laboratory* DHEA 12/29/24 * Estrogens Total 12/29/24 * TSH With T4fr Reflex 12/29/24 * Vitamin D 25 Hydroxy 12/29/24 * CBC w/ Auto Diff 12/29/24 * Comprehensive Metabolic Panel 12/29/24 * Lipid Panel 12/29/24 * Progesterone Level 12/29/24 * Testosterone Level Total 12/29/24 [facility] 02-06-2025 Hospital Discharge instructions Patient Education 01/06/2025 11:46:34 Pain Medicine Instructions Pain Medicine Instructions You may need pain medicine after an injury or illness. There are many types of pain medicine. Two common types of pain medicine are: Non-opioid pain medicines. These include: ?Ffwi-krk-ulvnvqm (OTC) medicines such as acetaminophen or non-steroidal anti- inflammatory medicines (NSAIDS). ?Prescription medicines such as gabapentin or pregabalin. Opioid prescription pain medicines. These include: ?Hydrocodone. ?Oxycodone. ?Tramadol. Pain medicine may be prescribed to relieve most or all of your pain. It may not be possible to makeall of your pain go away, but you should be comfortable enough to move, breathe, and do normal activities. How can pain medicines affect me? Pain medicines can cause side effects such as: Nausea. Vomiting. Abdominal pain. Opioid pain medicines can cause additional side effects, such as: Constipation. Drowsiness. Confusion. Difficulty breathing (respiratory depression). Dependence and addiction (opioid use disorder). Using opioid pain medicines for longer than 3 days increases your risk of these side effects. Taking opioid pain medicine for a long period of time can affect your ability to do daily tasks. Italso puts you at risk for: Motor vehicle accidents. Depression. Suicide. Heart attack. If they are not taken correctly, non-opioid and opioid medicines may also put you at risk for: Liver problems. Kidney problems. Overdose. This is taking too much of the medicine. It can sometimes lead to . What actions can I take to lower my risk of problems? Know your pain treatment plan To manage your pain successfully, you and your health care provider need to understand each other and work together. To do this: Discuss the goals of your treatment, including how much pain you might expect to have and how you will manage the pain. Ask your health care provider to refer you to one or more specialists who can help you manage pain in other ways. Some other ways of managing pain include physical therapy, exercise, massage, or biofeedback. Review the risks and benefits of taking pain medicines for your condition. Be honest about the amount of medicines you take, and about any drugs or alcohol you use. Get pain medicine prescriptions from only one health care provider. Keep all follow-up visits. This is important. Take your medicine as directed Take your pain medicine exactly as told by your health care provider. Take it only when you need it. ?If your pain gets less severe, you may take less than your prescribed dose if your health care provider approves. ?If you are not having pain, do nottake pain medicine unless your health care provider tells you totake it. ?If your pain medicine contains acetaminophen, do not take any other acetaminophen while taking this medicine. Acetaminophen is found in many xcyt-rxw-xwwveis and prescription medicines. An overdose of acetaminophen can result in severe liver damage. If your pain is severe, do nottry to treat it yourself by taking more pills than instructed on yourprescription. Contact your health care provider for help. Write down the times when you take your pain medicine. It is easy to become confused while on pain medicine. Writing the time can help you avoid overdose. Take other gqtz-eke-fqobgxu or prescription medicines only as told by your health care provider. Restrict your activity as directed While you are taking prescription pain medicine, and for 8 hours after your last dose, follow theseinstructions: Do not drive. Do not use machinery or power tools. Do not sign legal documents. Do not drink alcohol. Do not take sleeping pills. Do not supervise children by yourself. Do not do activities that require climbing or being in high places. Do not go to a [place], river, ocean, spa, or swimming pool unless an adult is nearby who can monitor and help you. Keep pets and people safe Keep pain medicine in a locked cabinet, or in a secure area where children and pets cannot reach it. Never share your prescription pain medicine with anyone. Do not save any leftover pills. If you have leftover medicine, you can: ?Bring the medicine to a prescription take-back program. This is usually offered by the county or law enforcement. ?Bring it to a pharmacy that has a drug disposal container. ?Throw it out in the trash. Check the label or package insert of your medicine to see whether this is safe to do. If it is safe to throw it out, remove the medicine from the container and mix it withmaterial that makes it unusable, such as pet waste, before putting it in the trash. ?Flush it down the toilet only if this is safe to do. To find out, check the label or package insert of your medicine. Information is also available at the [place]. Food and Drug Administration website: fda.gov. Treat or prevent constipation Taking pain medicines increases your risk for constipation. To prevent or treat this problem: Drink enough water to keep your urine pale yellow. Take xome-sqo-uuxhicb or prescription medicines. You may need to take stool softeners. Eat foods that are high in fiber, such as beans, whole grains, and fresh fruits and vegetables. Limit foods that are high in fat and processed sugars, such as fried or sweet foods. Contact a health care provider if: Your medicine is not relieving your pain. You have a rash. You have nausea and vomiting. You feel depressed. Get help right away if: You have difficulty breathing. Your breathing is slower or more shallow than normal. You feel confused. You are too sleepy or you have difficulty staying awake. Your skin or lips turn pale or bluish in color. Your tongue swells. You have thoughts of harming yourself or harming others. These symptoms may represent a serious problem that is an emergency. Do not wait to see if the symptoms will go away. Get medical help right away. Call your local emergency services (220 in the [place] Do not drive yourself to the hospital. If you ever feel like you may hurt yourself or others, or have thoughts about taking your own life,get help right away. Go to your nearest emergency department or: Call your local emergency services (731 in the [place] Call the National Poison Control Center ( in the [place] Call a suicide crisis helpline, such as the National Suicide Prevention Lifeline at or 092 in the [place] This is open 24 hours a day in the [place] Text the Crisis Text Line at 823251 (in the [place] Summary It is important to follow instructions from your health care provider when you are taking prescription pain medicines. Pain medicine can help reduce pain but may also cause side effects. Make sure you understand the risks and benefits of taking pain medicine for your condition. Take steps to lower your risk of problems by taking medicine exactly as told, restricting activity,keeping others safe, preventing constipation, and having a pain treatment plan. This information is not intended to replace advice given to you by your health care provider. Make sure you discuss any questions you have with your health care provider. Document Revised: 06/12/2022 Document Reviewed: 03/27/2022 [employer] Patient Education 2023 [employer]. 01/06/2025 11:46:34 Fall Prevention in the Home, Adult Fall Prevention in the Home, Adult Falls can cause injuries and affect people of all ages. There are many simple things that you can do to make your home safe and to help prevent falls. If you need it, ask for help making these changes. What actions can I take to prevent falls? General information Use good lighting in all rooms. Make sure to: ?Replace any light bulbs that burn out. ?Turn on lights if it is dark and use night-lights. Keep items that you use often in yabl-xt-vxuoo places. Lower the shelves around your home if needed. Move furniture so that there are clear paths around it. Do not keep throw rugs or other things on the floor that can make you trip. If any of your floors are uneven, fix them. Add color or contrast paint or tape to clearly umm and help you see: ?Grab bars or handrails. ?First and last steps of staircases. ?Where the edge of each step is. If you use a ladder or stepladder: ?Make sure that it is fully opened. Do not climb a closed ladder. ?Make sure the sides of the ladder are locked in place. ?Have someone hold the ladder while you use it. Know where your pets are as you move through your home. What can I do in the bathroom? Keep the floor dry. Clean up any water that is on the floor right away. Remove soap buildup in the bathtub or shower. Buildup makes bathtubs and showers slippery. Use non-skid mats or decals on the floor of the bathtub or shower. Attach bath mats securely with double-sided, non-slip rug tape. If you need to sit down while you are in the shower, use a non-slip stool. Install grab bars by the toilet and in the bathtub and shower. Do not use towel bars as grab bars. What can I do in the bedroom? Make sure that you have a light by your bed that is easy to reach. Do not use any sheets or blankets on your bed that hang to the floor. Have a firm bench or chair with side arms that you can use for support when you get dressed. What can I do in the kitchen? Clean up any spills right away. If you need to reach something above you, use a sturdy step stool that has a grab bar. Keep electrical cables out of the way. Do not use floor lithuanian or wax that makes floors slippery. What can I do with my stairs? Do not leave anything on the stairs. Make sure that you have a light switch at the top and the bottom of the stairs. Have them installedif you do not have them. Make sure that there are handrails on both sides of the stairs. Fix handrails that are broken or loose. Make sure that handrails are as long as the staircases. Install non-slip stair treads on all stairs in your home if they do not have carpet. Avoid having throw rugs at the top or bottom of stairs, or secure the rugs with carpet tape to prevent them from moving. Choose a carpet design that does not hide the edge of steps on the stairs. Make sure that carpet isfirmly attached to the stairs. Fix any carpet that is loose or worn. What can I do on the outside of my home? Use bright outdoor lighting. Repair the edges of walkways and driveways and fix any cracks. Clear paths of anything that can make you trip, such as tools or rocks. Add color or contrast paint or tape to clearly umm and help you see high doorway thresholds. Trim any bushes or trees on the main path into your home. Check that handrails are securely fastened and in good repair. Both sides of all steps should have handrails. Install guardrails along the edges of any raised decks or porches. Have leaves, snow, and ice cleared regularly. Use sand, salt, or ice melt on walkways during wintermonths if you live where there is ice and snow. In the garage, clean up any spills right away, including grease or oil spills. What other actions can I take? Review your medicines with your health care provider. Some medicines can make you confused or feel dizzy. This can increase your chance of falling. Wear closed-toe shoes that fit well and support your feet. Wear shoes that have rubber soles and low heels. Use a cane, walker, scooter, or crutches that help you move around if needed. Talk with your provider about other ways that you can decrease your risk of falls. This may includeseeing a physical therapist to learn to do exercises to improve movement and strength. Where to find more information Centers for Disease Control and Prevention, FRANCES: cdc.gov National [place] on Aging: ran.nih.gov National [place] on Aging: ran.nih.gov Contact a health care provider if: You are afraid of falling at home. You feel weak, drowsy, or dizzy at home. You fall at home. Get help right away if you: Lose consciousness or have trouble moving after a fall. Have a fall that causes a head injury. These symptoms may be an emergency. Get help right away. Call 911. Do not wait to see if the symptoms will go away. Do not drive yourself to the hospital. This information is not intended to replace advice given to you by your health care provider. Make sure you discuss any questions you have with your health care provider. Document Revised: 07/21/2023 Document Reviewed: 07/21/2023 [employer] Patient Education 2023 [employer]. 01/06/2025 11:46:34 Rib Fracture Rib Fracture A rib fracture is a break or crack in one of the bones of the ribs. The ribs are long, curved bonesthat wrap around your chest and attach to your spine and your breastbone. The ribs protect your heart, lungs, and other organs in the chest. A broken or cracked rib is often painful but is not usually serious. Most rib fractures heal on their own over time. However, rib fractures can be more serious if multiple ribs are broken or if broken ribs move out of place and push against other structures or organs. What are the causes? This condition is caused by: Repetitive movements with high force, such as pitching a baseball or having very bad coughing spells. A direct hit the chest, such as a sports injury, a car crash, or a fall. Cancer that has spread to the bones, which can weaken bones and cause them to break. What are the signs or symptoms? Symptoms of this condition include: Pain when you breathe in or cough. Pain when someone presses on the injured area. Feeling short of breath. How is this diagnosed? This condition is diagnosed with a physical exam and medical history. You may also have imaging tests, such as: Chest X-ray. CT scan. MRI. Bone scan. Chest ultrasound. How is this treated? Treatment for this condition depends on the severity of the fracture. Most rib fractures usually heal on their own in 1 3 months. Healing may take longer if you have a cough or if you do activities that make the injury worse. While you heal, you may be given medicines to control the pain. You will also be taught deep breathing exercises. Severe injuries may require hospitalization or surgery. Follow these instructions at home: Managing pain, stiffness, and swelling If directed, put ice on the injured area. To do this: ?Put ice in a plastic bag. ?Place a towel between your skin and the bag. ?Leave the ice on for 20 minutes, 2 3 times a day. ?Remove the ice if your skin turns bright red. This is very important. If you cannot feel pain, heat, or cold, you have a greater risk of damage to the area. Take psfc-kwx-avqmbfo and prescription medicines only as told by your health care provider. Activity Avoid doing activities or movements that cause pain. Be careful during activities and avoid bumpingthe injured rib. Slowly increase your activity as told by your health care provider. General instructions Do deep breathing exercises as told by your health care provider. This helps prevent pneumonia, which is a common complication of a broken rib. Your health care provider may instruct you to: ?Take deep breaths several times a day. ?Try to cough several times a day, holding a pillow against the injured area. ?Use a device called incentive spirometer to practice deep breathing several times a day. Drink enough fluid to keep your urine pale yellow. Do not wear a rib belt or binder. These restrict breathing, which can lead to pneumonia. Keep all follow-up visits. This is important. Contact a health care provider if: You have a fever. Get help right away if: You have difficulty breathing or you are short of breath. You develop a cough that does not stop, or you cough up thick or bloody sputum. You have nausea, vomiting, or pain in your abdomen. Your pain gets worse and medicine does not help. These symptoms may represent a serious problem that is an emergency. Do not wait to see if the symptoms will go away. Get medical help right away. Call your local emergency services (911 in the [place] Do not drive yourself to the hospital. Summary A rib fracture is a break or crack in one of the bones of the ribs. A broken or cracked rib is often painful but is not usually serious. Most rib fractures heal on their own over time. Treatment for this condition depends on the severity of the fracture. Avoid doing any activities or movements that cause pain. This information is not intended to replace advice given to you by your health care provider. Make sure you discuss any questions you have with your health care provider. Document Revised: 03/09/2021 Document Reviewed: 03/09/2021 [employer] Patient Education 2023 [employer] 01/06/2025 11:46:34 Incentive Spirometer Record Incentive Spirometer Record Use your incentive spirometer as told by your health care provider. Your health care provider or respiratory therapist will help you set a goal. Breathe in slowly and as deeply as you can through your mouth. This will cause the piston or the ball to rise toward the top of the chamber. Try to reach the goal marker set on the spirometer. Use this form to write down your progress. Use additional notebook paper, if needed. Bring this form with you to your follow-up visits. My incentive spirometer goal is to reach . Date Time Amount reached Date Time Amount reached Date Time Amount reached Date Time Amount reached Date Time Amount reached Date Time Amount reached Date Time Amount reached Date Time Amount reached Date Time Amount reached Date Time Amount reached Date Time Amount reached Date Time Amount reached Date Time Amount reached Date Time Amount reached Date Time Amount reached Date Time Amount reached Date Time Amount reached Date Time Amount reached Date Time Amount reached Date Time Amount reached Date Time Amount reached Date Time Amount reached Date Time Amount reached Date Time Amount reached Date Time Amount reached Date Time Amount reached This information is not intended to replace advice given to you by your health care provider. Make sure you discuss any questions you have with your health care provider. Document Revised: 02/05/2021 Document Reviewed: 02/05/2021 Re Patient Education 2023 Re [employer] 01/06/2025 11:46:34 How to Use an Incentive Spirometer How to Use an Incentive Spirometer An incentive spirometer is a tool that measures how well you are filling your lungs with each breath. Learning to take long, deep breaths using this tool can help you keep your lungs clear and active. This may help to reverse or lessen your chance of developing breathing (pulmonary) problems, especially infection. You may be asked to use a spirometer: After a surgery. If you have a lung problem or a history of smoking. After a long period of time when you have been unable to move or be active. If the spirometer includes an indicator to show the highest number that you have reached, your health care provider or respiratory therapist will help you set a goal. Keep a log of your progress as told by your health care provider. What are the risks? Breathing too quickly may cause dizziness or cause you to pass out. Take your time so you do not get dizzy or light-headed. If you are in pain, you may need to take pain medicine before doing incentive spirometry. It is harder to take a deep breath if you are having pain. How to use your incentive spirometer 1.Sit up on the edge of your bed or on a chair. 2.Hold the incentive spirometer so that it is in an upright position. 3.Before you use the spirometer, breathe out normally. 4.Place the mouthpiece in your mouth. Make sure your lips are closed tightly around it. 5.Breathe in slowly and as deeply as you can through your mouth, causing the piston or the ball to rise toward the top of the chamber. 6.Hold your breath for 3 5 seconds, or for as long as possible. If the spirometer includes a career coach indicator, use this to guide you in breathing. Slow down your breathing if the indicator goes above the marked areas. 7.Remove the mouthpiece from your mouth and breathe out normally. The piston or ball will return tothe bottom of the chamber. 8.Rest for a few seconds, then repeat the steps 10 or more times. Take your time and take a few normal breaths between deep breaths so that you do not get dizzy or light-headed. Do this every 1 2 hours when you are awake. 9.If the spirometer includes a goal marker to show the highest number you have reached (best effort), use this as a goal to work toward during each repetition. 10.After each set of 10 deep breaths, cough a few times. This will help to make sure that your lungs are clear. If you have an incision on your chest or abdomen from surgery, place a pillow or a rolled-up towel firmly against the incision when you cough. This can help to reduce pain while taking deep breaths and coughing. General tips When you are able to get out of bed: ?Walk around often. ?Continue to take deep breaths and cough in order to clear your lungs. Keep using the incentive spirometer until your health care provider says it is okay to stop using it. If you have been in the hospital, you may be told to keep using the spirometer at home. Contact a health care provider if: You are having difficulty using the spirometer. You have trouble using the spirometer as often as instructed. Your pain medicine is not giving enough relief for you to use the spirometer as told. You have a fever. Get help right away if: You develop shortness of breath. You develop a cough with bloody mucus from the lungs. You have fluid or blood coming from an incision site after you cough. Summary An incentive spirometer is a tool that can help you learn to take long, deep breaths to keep your lungs clear and active. You may be asked to use a spirometer after a surgery, if you have a lung problem or a history of smoking, or if you have been inactive for a long period of time. Use your incentive spirometer as instructed every 1 2 hours while you are awake. If you have an incision on your chest or abdomen, place a pillow or a rolled-up towel firmly against your incision when you cough. This will help to reduce pain. Get help right away if you have shortness of breath, you cough up bloody mucus, or blood comes fromyour incision when you cough. This information is not intended to replace advice given to you by your health care provider. Make sure you discuss any questions you have with your health care provider. Document Revised: 02/05/2021 Document Reviewed: 02/05/2021 [employer] Patient Education 2023 [employer]. Follow Up Care 01/06/2025 07:09:16 With:Iggy Bowser Address:Unknown When:01/09/2025 11:43:25 Comments:Follow-up in trauma clinic With:SY WICK Address:Unknown When:01/09/2025 11:43:15 Comments:Call the office of your primary care doctor to arrange for follow-up within the above-stated timeframe. Follow-up with your primary care doctor about this ED visit. You should review your labs, imaging, and diagnoses from this ED visit with your primary care physician. There are occasionally non-emergent findings that require additional follow-up after your ED visit. If you were prescribed medications you should discuss possible side-effects and drug interactions with your pharmacist. Call 911 or go to the nearest Emergency Department if you develop any new or worsening symptoms. [facility] 02-06-2025 NoteED Patient Education Note Caregiving Pain Medicine Instructions You may need pain medicine after an injury or illness. There are many types of pain medicine. Two common types of pain medicine are: ??? Non-opioid pain medicines. These include: ? Enzd-sgp-oyhdytz (OTC) medicines such as acetaminophen or non-steroidal anti- inflammatory medicines (NSAIDS). ? Prescription medicines such as gabapentin or pregabalin. ??? Opioid prescription pain medicines. These include: ? Hydrocodone. ? Oxycodone. ? Tramadol. Pain medicine may be prescribed to relieve most or all of your pain. It may not be possible to makeall of your pain go away, but you should be comfortable enough to move, breathe, and do normal activities. How can pain medicines affect me? Pain medicines can cause side effects such as: ??? Nausea. ??? Vomiting. ??? Abdominal pain. Opioid pain medicines can cause additional side effects, such as: ??? Constipation. ??? Drowsiness. ??? Confusion. ??? Difficulty breathing (respiratory depression). ??? Dependence and addiction (opioid use disorder). Using opioid pain medicines for longer than 3 days increases your risk of these side effects. Taking opioid pain medicine for a long period of time can affect your ability to do daily tasks. Italso puts you at risk for: ??? Motor vehicle accidents. ??? Depression. ??? Suicide. ??? Heart attack. If they are not taken correctly, non-opioid and opioid medicines may also put you at risk for: ??? Liver problems. ??? Kidney problems. ??? Overdose. This is taking too much of the medicine. It can sometimes lead to . What actions can I take to lower my risk of problems? Know your pain treatment plan To manage your pain successfully, you and your health care provider need to understand each other and work together. To do this: ??? Discuss the goals of your treatment, including how much pain you might expect to have and how you will manage the pain. ??? Ask your health care provider to refer you to one or more specialists who can help you manage pain in other ways. Some other ways of managing pain include physical therapy, exercise, massage, or biofeedback. ??? Review the risks and benefits of taking pain medicines for your condition. ??? Be honest about the amount of medicines you take, and about any drugs or alcohol you use. ??? Get pain medicine prescriptions from only one health care provider. ??? Keep all follow-up visits. This is important. Take your medicine as directed ??? Take your pain medicine exactly as told by your health care provider. Take it only when you need it. ? If your pain gets less severe, you may take less than your prescribed dose if your health care provider approves. ? If you are not having pain, do nottake pain medicine unless your health care provider tells you to take it. ? If your pain medicine contains acetaminophen, do not take any other acetaminophen while taking this medicine. Acetaminophen is found in many mekd-sdg-wjcxeed and prescription medicines. An overdoseof acetaminophen can result in severe liver damage. ??? If your pain is severe, do nottry to treat it yourself by taking more pills than instructed on your prescription. Contact your health care provider for help. ??? Write down the times when you take your pain medicine. It is easy to become confused while on pain medicine. Writing the time can help you avoid overdose. ??? Take other fyaj-nup-watddjs or prescription medicines only as told by your health care provider. Restrict your activity as directed While you are taking prescription pain medicine, and for 8 hours after your last dose, follow theseinstructions: ??? Do not drive. ??? Do not use machinery or power tools. ??? Do not sign legal documents. ??? Do not drink alcohol. ??? Do not take sleeping pills. ??? Do not supervise children by yourself. ??? Do not do activities that require climbing or being in high places. ??? Do not go to a [place], river, ocean, spa, or swimming pool unless an adult is nearby who can monitor and help you. Keep pets and people safe ??? Keep pain medicine in a locked cabinet, or in a secure area where children and pets cannot reach it. ??? Never share your prescription pain medicine with anyone. ??? Do not save any leftover pills. If you have leftover medicine, you can: ? Bring the medicine to a prescription take-back program. This is usually offered by the [facility] or law enforcement. ? Bring it to a pharmacy that has a drug disposal container. ? Throw it out in the trash. Check the label or package insert of your medicine to see whether thisis safe to do. If it is safe to throw it out, remove the medicine from the container and mix it with material that makes it unusable, such as pet waste, before putting it in the trash. ? Flush it down the toilet only if this is safe to do. To find out, (more content not included)...[facility]02-06-2025 NoteConsultation Note TRAUMA CONSULT / H&P Patient Name: KERMIT ROSEN Admission Date: 01/06/2025 07:07:53 Chief Complaint: Referring Physician: Patient seen and examined on 01/06/2025 10:27:15 BASIC INJURY INFORMATION: Level of activation: Category 2 Trauma Mode of transport: EMS Mechanism of injury: Fall from standing Complicating features: Not applicable Protective measures: Not applicable HISTORY OF PRESENT INJURY: KERMIT ROSEN is a 75 Years-old Female with a PMHx of Hypokalemia Anxiety B12 deficiency Breast cancer of upper-inner quadrant of right female breast 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 Patient was transported to [facility] ED s/p mechanical fall from standing on 01/06/2025 07:07:53. Pt states she fell on the ice around 0500 this morning. She did hit her head, but denies LOC. She complains of pain in the back only. She is not on anticoagulation. After falling, she called a friendto take her to the ED. She denies any SOB at this time. PRIMARY SURVEY: Airway: Intact Breathing: Normal Breath Sounds: Breath sounds equal bilaterally. Circulation: Pulses: Normal Skin: Warm, Dry Normal skin color, texture, and turgor. No rashes or lesions. Disability: Pupils: PEERL GCS: Best Eyes: 4 Best Verbal: 5 Best Motor: 6 Total: 15 SECONDARY SURVEY: Vital Signs (last 24 hrs) Last Charted Temp Oral 36.5 DegC (JAN 06 09:30) Heart Rate Monitored 65 bpm (JAN 06:30) Resp Rate 13 br/min (JAN 06:30) SBP H 152 mmHg (JAN 06:30) DBP 71 mmHg (JAN 06 09:30) Weight 57.2 kg (JAN 06 07:10) BMI 24.12 (JAN 06 07:10) Neurologic: Alert and oriented, appropriate, moves all extremities. Strength symmetrical, no sensory deficits. HEENT: Head: No lacerations, bony step-offs, or abrasions; midface stable to palpation. Eyes: PERRLA, conjunctiva/corneas without lesions., EOM intact. Ears: No hemotympanum, no ulises-auricular ecchymosis, no drainage. Nose: Septum midline, no crepitus with motion. No bloody drainage. Throat: Oral cavity without trauma. No malocclusion Neck: No midline tenderness. No step off or deformities. No lacerations/wounds. C-collar in place Pulmonary: External exam: No crepitus or pain with palpation; no abrasions or contusions. Lung exam: Breath sounds clear, symmetrical; no wheezes, rales or consolidation. Cardiovascular: Pulses: Bilateral radial, femoral, DP and PT pulses are normal Abdomen: Appearance: Non-distended, no scars, lacerations, contusions. Palpation: No tenderness. Noperitonitis. Rectal: Deferred Pelvis/Perineum: Pelvis is stable to palpation. Normal appearing genitalia No blood noted at urethra meatus Musculoskeletal: Back/Spine: Mild tenderness to the paraspinal region in the lower chest Extremities: No gross upper or lower extremity deformities. 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 Bronchitis Vaginal bleeding problems Pneumonia PAST SURGICAL HISTORY: Lumpectomy of right breast, Right: 02/02/21 Biopsy of breast, Right: 02/02/21 Ultrasonography guided biopsy of right breast: 01/12/21 Tonsillectomy Tubal ligation Ultrasonography guided biopsy of right breast Dilation and curettage PRE-ADMISSION MEDICATIONS: ascorbic acid: 500 mg = 1 tab(s), Chewed, Daily aspirin: mg = tab(s), Chewed, Daily garlic: See Instructions, 1 tab daily OTC iodine magnesium amino acids chelate menaquinone metoprolol: 50 mg = 1 tab(s), Oral, Daily Misc Prescription (spacer): See Instructions, please dispense an adult mdi spacer chamber montelukast: 10 mg = 1 tab(s), Oral, qPM multivitamin with minerals: 1 tablet, Chewed, Daily nitroglycerin: 0.4 mg = 1 tab(s), SubLingual, q5min, PRN (for chest pain) Non-Formulary Medication (NAC Detox Regulators): Oral, Daily, Selenium 500 mcg, Molybdenum 50 mcg, and N-Acetylcysteine 600 mg Non-Formulary Medication (Serrapeptase 40,000 SPU): Oral, Daily, Calcium 27 mg and Serrapeptase Enzyme 40,000 SPU. support healthy sinuses and breakdown unwanted proteins Non-Formulary Medication (Nitric Oxide Foundation): 2 tab(s), Oral, Daily, Vitamin C 290 mg, Thiamin 90mg, B12 200 mcg, Magnesium 75 mg, Potassium 189 mg, 500mg (postassium nitrate, beet root extractand fermented beet root powder). For Circulatory Support Non-Formulary Medication (H-HTP 100 mg): See Instructions, 5-HTP 100mg (Neurotransmitter Support). For Depression sertraline: 50 mg = 1 tab(s), Oral, Daily thyroid desiccated: 30 mg = 1 tab(s), Oral, Daily, no G (more content not included)...[facility]Result Comment: Electronically Signed By: Niels RAY, Iggy Dillon.br\Date and Time Signed: 01/06/2510:32 [id number] Hospital Discharge instructions Patient Education 12/14/2024 13:34:57 Upper Respiratory Infection, Adult Upper Respiratory Infection, Adult An upper respiratory infection (URI) is a common viral infection of the nose, throat, and upper airpassages that lead to the lungs. The most [...] medicines to help relieve symptoms, such as: Curf-kxl-jhxaudo cold medicines. Cough suppressants. Coughing is a [...] and other clear broths. General instructions Take grgo-apn-tqknybj and prescription medicines only as told by your health care provider. These include cold medicines, fever reducers, and cough suppressants. Do not use any products that contain nicotine or tobacco. These products include cigarettes, chewing tobacco, and vaping devices, such as e-cigarettes. If you need help quitting, ask your health careprovider. Stay away from secondhand smoke. Stay up [...] and water are not available, use hand opera singer. Avoid touching your mouth, face, eyes, or [...] provider. Document Revised: 06/19/2022 Document Reviewed: 06/19/2022 [employer] Patient Education 2023 [employer]. Follow Up Care 12/14/2024 11:53:44 With:Vilma John FAM, [facility] Address: Rosalina Eisenberg, [facility] [address] [address]- When: Unknown [facility] 01-14-2025 NotePatient Education Infectious Disease Upper Respiratory Infection, Adult An upper respiratory infection (URI) is a common viral infection of the nose, throat, and upper airpassages that lead to the lungs. The most common type of URI is the common cold. URIs usually get better on their own, without medical treatment. What are the causes? A URI is caused by a virus. You may catch a virus by: ??? Breathing in droplets from an infected person's cough or sneeze. ??? Touching something that has been exposed to the virus (is contaminated) and then touching your mouth, nose, or eyes. What increases the risk? You are more likely to get a URI if: ??? You are very young or very old. ??? You have close contact with others, such as at work, school, or a health care facility. ??? You smoke. ??? You have long-term (chronic) heart or lung disease. ??? You have a weakened disease-fighting system (immune system). ??? You have nasal allergies or asthma. ??? You are experiencing a lot of stress. ??? You have poor nutrition. What are the signs or symptoms? A URI usually involves some of the following symptoms: ??? Runny or stuffy (congested) nose. ??? Cough. ??? Sneezing. ??? Sore throat. ??? Headache. ??? Fatigue. ??? Fever. ??? Loss of appetite. ??? Pain in your forehead, behind your eyes, and over your cheekbones (sinus pain). ??? Muscle aches. ??? Redness or irritation of the eyes. ??? Pressure in the ears or face. How [...] medicines to help relieve symptoms, such as: ??? Sprv-pkv-nkixndj cold medicines. ??? Cough suppressants. Coughing is a type of defense against infection that helps to clear the respiratory system, so take these medicines only as recommended by your health care provider. ??? Fever-reducing medicines. Follow these instructions at home: Activity ??? Rest as needed. ??? If you have a fever, stay home from work or school until your fever is gone or until your health care provider says your URI cannot spread to other people (is no longer contagious). Your health care provider may have you wear a face mask to prevent your infection from spreading. Relieving symptoms ??? Gargle with a mixture of salt and water 3?4 times a day or as needed. To make salt water, completely dissolve ??1 tsp (3?6 g) of salt in 1 cup (237 mL) of warm water. ??? Use a cool-mist humidifier to add moisture to the air. This can help you breathe more easily. Eating and drinking ??? Drink enough fluid to keep your urine pale yellow. ??? Eat soups and other clear broths. General instructions ??? Take qchc-qil-rbrfasl and prescription medicines only as told by your health care provider. These include cold medicines, fever reducers, and cough suppressants. ??? Do not use any products that contain nicotine or tobacco. These products include cigarettes, chewing tobacco, and vaping devices, such as e-cigarettes. If you need help quitting, ask your health care provider. ??? Stay away from secondhand smoke. ??? Stay up to date on all immunizations, including the yearly (annual) flu vaccine. ??? Keep all follow-up visits. This is important. How to prevent the spread of infection to others URIs can be contagious. To prevent the infection from spreading: ??? Wash your hands with soap and water for at least 20 seconds. If soap and water are not available, use hand opera singer. ??? Avoid touching your mouth, face, eyes, or nose. ??? Cough or sneeze into a tissue or your sleeve or elbow instead of into your hand or into the air. Contact a health care provider if: ??? You are getting worse instead of better. ??? You have a fever or chills. ??? Your mucus is brown or red. ??? You have yellow or brown discharge coming from your nose. ??? You have pain in your face, especially when you bend forward. ??? You have swollen neck glands. ??? You have pain while swallowing. ??? You have white areas in the back of your throat. Get help right away if: ??? You have shortness of breath that gets worse. ??? You have severe or persistent: ? Headache. ? Ear pain. ? Sinus pain. ? Chest pain. ??? You have chronic lung disease along with any of the following: ? Making high-pitched whistling sounds when you breathe, most often when you breathe out (wheezing). ? Prolonged cough (more than 14 days). ? Coughing up blood. ? A change in your usual mucus. ??? You have a stiff neck. ? (more content not included)...[facility]12-19-2024 History of Present illness Narrative* Norma Vargas DPM FACFAS - 11/18/2024 5:10 PM EST Images from the original note were not [...] secondary to the pain. They have attempted vrzx-htk-mzfeonn anti- inflammatory medications as well as uvdd-gmh-jgvisft wart treatment to no avail. Allergies: Allergies [...] 90 mcg/act inhaler, , Disp: , Rfl: Martell Thyroid 30 MG tablet, 1 (one) time [...] by mouth Daily, Disp: , Rfl: thyroid (Martell Thyroid) 30 MG tablet, , Disp: , [...] < 3 seconds Digits 1-5 bilateral NEURO: Johnston Ramon 5.07 monofilament was intact B/L. Vibratory [...] the level of pinpoint bleeding. I applied anapplication of 60 percent salicylic acid to the lesions. Covered with an occlusive dressing. REANNA Syed documented in this encounterGolden Valley Memorial [id number] History of Present illness Narrative* DIEGO Leon - 11/17/2024 10:20 AM EST Reason for Appointment: Patient ID: Kermit Rosen is a 74 y.o. female who presents for Post-op Visit (Pt present today for post operative visit. Pt had a D&C on 11/05/2024.) Patient presents today for 1 Week Post Op Follow Up appointment. MEDICATIONS Current Outpatient Medications Medication Instructions albuterol HFA 90 mcg/act inhaler Martell Thyroid 30 MG tablet Every 24 hours [...] sertraline (ZOLOFT) 50 mg, Oral, Daily thyroid (Martell Thyroid) 30 MG tablet valsartan (Diovan) 160 [...] sites 04/09/2021 Postmenopausal osteoporosis of multiple sites (CMS/HCC) 04/09/2021 Postmenopausal bleeding 06/04/2023 Personal history of breast cancer 06/04/2023 Pain of breast 06/04/2023 Osteoporosis (CMS/HCC) 06/04/2023 Occipital neuralgia 06/04/2023 Numbness and tingling of foot 04/09/2021 Numbness and tingling in both hands 04/09/2021 Moderate episode of recurrent major depressive disorder ([facility]/HCC) 06/04/2023 Mild CAD ([facility]) 06/04/2023 Hypothyroid ([facility]) 06/04/2023 Hypokalemia 06/04/2023 Hormone imbalance 06/04/2023 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) 06/04/2023 Hair loss 06/04/2023 Fibrocystic changes of right breast 06/04/2023 Fall 06/04/2023 DCIS (ductal carcinoma in situ) 06/04/2023 Dry mouth 04/09/2021 Dry eye syndrome of both eyes 04/09/2021 Chronic sinusitis 06/04/2023 Chronic GERD 06/04/2023 Cervicalgia 04/09/2021 Breast lump in upper outer quadrant 06/04/2023 Breast cancer of upper-inner quadrant of right female breast ([facility]) 06/04/2023 BMI 24.0-24.9, adult 06/04/2023 Bilateral hand pain 04/09/2021 Benign essential hypertension ([facility]) 06/04/2023 Atrophy of vagina 06/04/2023 B12 deficiency [...] BMI 23.0-23.9, adult Breast cancer in female ([facility]) Breast cancer screening Dizziness and giddiness Dry eyes Encounter for gynecological examination (general) (routine) without abnormal findings History of lumpectomy of right breast Hypertension ([facility]) Iron deficiency anemia OC (onychocryptosis) OM (onychomycosis) Pain in breast Plantar verruca Post menopausal syndrome Rectocele Vaginal atrophy Ventral hernia HISTORY PAST MEDICAL HISTORY SOCIAL HISTORY Past Medical History: Diagnosis Date Abnormal uterine bleeding (AUB) Anxiety BMI 23.0-23.9, adult Breast cancer in female ([facility]) Breast cancer screening Chronic GERD Dizziness and [...] Date BREAST BIOPSY Right BREAST LUMPECTOMY Right [place] Node DILATION AND CURETTAGE OF UTERUS 06/30/2023 [...] having a D&C Hysteroscopy performed at [facility] with Dr. Marinelli. Pathology results was reviewed with the patient in great detail and all restrictions have been lifted. Follow Up: Patient is to return to the office for annual exam unless needed otherwise. Documented by Jeri Diego MA on behalf of: DIEGO Leon documented in this encounterGolden Valley Memorial [id number] Hospital Discharge instructions Patient Education 10/15/2024 11:08:31 [...] cough may last longer. Allergies, asthma, and exposureto smoke may make the condition worse. What [...] water to the air to help you breathebetter. Taking a medicine that thins mucus and clears congestion (expectorant). Taking a medicine that prevents or stops coughing (cough suppressant). It is not common to take an antibiotic medicine for this condition. Follow these instructions at home: Take okxq-lgp-qbbzgpu and prescription medicines only as told by [...] you need help quitting, ask your health careprovider. Get plenty of rest. Return to your [...] and water are not available, use hand opera singer. Avoid contact with people who have cold [...] airways (bronchi) that come off the windpipe (trachea)in the lungs. The swelling causes the airways to get smaller and make more mucus than normal. Drinking more fluids can help thin your mucus so it is easier to cough up. Take reom-wrn-ezmdgso and prescription medicines only as told by your health care provider. Do not use any products that contain nicotine or tobacco. These products include cigarettes, chewing tobacco, and vaping devices, such as e-cigarettes. If you need help quitting, ask your health careprovider. Contact a health care provider if your symptoms do not improve after 2 weeks. This information is not intended to replace advice given to you by your health care provider. Make sure you discuss any questions you have with your health care provider. Document Revised: 02/27/2023 Document Reviewed: 03/20/2022 [employer] Patient Education 2023 [employer]. 10/15/2024 11:08:26 Postnasal Drip Postnasal Drip Postnasal drip is the feeling of mucus going down the back of your throat. Mucus is a slimy substance that moistens and cleans your nose and throat, as well as the air pockets in face bones near yourforehead and cheeks (sinuses). Small amounts of mucus pass from your nose and sinuses down the backof your throat all the time. This is [...] the nasal passages moist. General instructions Take waju-orv-brzqkon and prescription medicines only as told by [...] provider. Document Revised: 10/17/2022 Document Reviewed: 10/17/2022 [employer] Patient Education 2023 [employer]. 10/15/2024 11:08:23 Aspiration Pneumonia, Adult Aspiration Pneumonia, [...] of breath. It may also involve high-pitched whistlingsounds when you breathe, most often when you [...] be given oxygen, or you may need breathingsupport from a machine (ventilator). Thoracentesis. This is a procedure to remove fluid that has built up in the space between the linings of the chest wall and the lungs. Changes in diet. If you get this condition often, you may need to have a feeding tube placed. This can help give youthe nutrients you need. Follow these instructions at home: Medicines Take nhfc-ogl-vmdtvgu and prescription medicines as told by your health care provider. Finish your antibiotics even if you start to feel better. Take cough medicine only if you are losing sleep. Cough medicine can stop your body from being ableto remove mucus from your lungs. General instructions [...] you need help quitting, ask your health careprovider. Return to your normal activities as told [...] provider. Document Revised: 04/30/2023 Document Reviewed: 04/30/2023 [employer] Patient Education 2023 [employer]. Follow Up Care 10/12/2024 16:59:27 With:Vilma John [facility], [facility] Address: [facility] [address], [address] [place] [phone]- When:Within 2 Week(s) Comments:lung follow up [facility] 11-15-2024 NotePatient Education ENT Postnasal Drip Postnasal drip is the feeling of mucus going down the back of your throat. Mucus is a slimy substance that moistens and cleans your nose and throat, as well as the air pockets in face bones near yourforehead and cheeks (sinuses). Small amounts of mucus pass from your nose and sinuses down the backof your throat all the time. This is [...] nasal passages moist. General instructions ??? Take zpog-pbp-wfpceug and prescription medicines only as told by [...] provider. Document Revised: 10/17/2022 Document Reviewed: 10/17/2022 [employer] Patient Education ? 2023 [employer]. Neurology Aspiration Pneumonia, Adult Aspiration pneumonia is [...] into your lungs. This can cause an infectioneven if the material does not originally have [...] may also be silent. (more content not included)...[facility]11-11-2024 History of Present illness Narrative* Jay Jay Pisano MD - 10/11/2024 1:30 PM EST Cj Rosen is a 74 y.o. female Chief Complaint Annual Exam HPI Patient is in the office for follow-up for the problems noted below along with a need for cardiac clearance prior to D&C surgery scheduled in few weeks at [facility]. Her blood pressure isunder excellent control. She denies any palpitations or chest pain. She is not taking statin as I have previously recommended since she says she does not believe in this line of treatment. I tried tomake my case for her to take the medicine based on the scientific data rehab but she insists on nottaking it. She understand there is a risk interaction. She is taking the aspirin well. Examination was unremarkable today. Assessment/recommendations 1-mild coronary atherosclerosis with 40% mid anterior descending artery lesion, patient is asymptomatic and remains on aspirin, patient refused to go on statin. She does not do cardiac testing in preparation for the upcoming surgery scheduled at [place] for D&C. She is acceptable risk and [...] 1 tablet by mouth once daily, Disp: 90tablet, Rfl: 3 nitroglycerin (Nitrostat) 0.4 mg SL tablet, Place 1 tablet (0.4 mg) under the tongue every 5 minutes if needed for chest pain., Disp: , Rfl: sertraline (Zoloft) 50 mg tablet, Take 1 tablet (50 mg) by mouth once daily., Disp: , Rfl: thyroid, pork, (Martell Thyroid) 30 mg tablet, Take 1 tablet [...] my direction and personally dictated by me. Ihave reviewed the chart and agree that the record accurately reflects my personal performance of the history, physical exam, discussion and plan. documented [facility]Ch[facility] Work Phone: 1(837) 861-620211-11-2024 Instructions* Patient Instructions* Pennie Lan RN - 10/11/2024 1:30 PM [...] procedure with Dr Marinelli documented in this encounterCh[facility] Work Phone: 1(276) 238-532209-25-2024 History of Present illness Narrative* Sravani De Santiago - 08/25/2024 11:00 AM EDT Reason for Appointment: Patient ID: Kermit Rosen is a 74 y.o. female who presents for Pre-op Visit Patient presents today for Pre Op appointment. Patient is scheduled to undergo Fractional D&C Hysteroscopy, possible Myosure on 09/17/[address] Marinelli at [facility]. MEDICATIONS Current Outpatient Medications Medication Instructions albuterol HFA 90 mcg/act inhaler Martell Thyroid 30 MG tablet Every 24 hours [...] sertraline (ZOLOFT) 50 mg, Oral, Daily thyroid (Martell Thyroid) 30 MG tablet valsartan (Diovan) 160 [...] sites 04/09/2021 Postmenopausal osteoporosis of multiple sites ([facility]) 04/09/2021 Postmenopausal bleeding 06/04/2023 Personal history of breast cancer 06/04/2023 Pain of breast 06/04/2023 Osteoporosis ([facility]) 06/04/2023 Occipital neuralgia 06/04/2023 Numbness and tingling of foot 04/09/2021 Numbness and tingling in both hands 04/09/2021 Moderate episode of recurrent major depressive disorder (HCC) ([facility]) 06/04/2023 Mild CAD ([facility]) 06/04/2023 Hypothyroid ([facility]) 06/04/2023 Hypokalemia 06/04/2023 Hormone imbalance 06/04/2023 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 Hair loss 06/04/2023 Fibrocystic changes of right breast 06/04/2023 Fall 06/04/2023 DCIS (ductal carcinoma in situ) 06/04/2023 Dry mouth 04/09/2021 Dry eye syndrome of both eyes 04/09/2021 Chronic sinusitis 06/04/2023 Chronic GERD 06/04/2023 Cervicalgia 04/09/2021 Breast lump in upper outer quadrant 06/04/2023 Breast cancer of upper-inner quadrant of right female breast ([facility]) 06/04/2023 BMI 24.0-24.9, adult 06/04/2023 Bilateral hand pain 04/09/2021 Benign essential hypertension ([facility]) 06/04/2023 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 Patient will undergo Fractional D&C Hysteroscopy, possible Myosure on 09/17/2024.Surgical consents were signed, mmc was reviewed, and patient is to proceed to [facility] OR. Follow Up: Patient is to follow up between 1-2 weeks post operative to assess proper healing and recovery fromprocedure. Documented by Eli Gaitan LPN on behalf of: Ryley Marinelli DO documented in this encounterGolden Valley Memorial [id number] Hospital Discharge instructions Patient Education 05/26/2024 15:45:21 [...] total calories a day. This is g ofsaturated fat per day. Limit the amount of cholesterol in your diet to less than mg a day. Eat g of fiber a day. What are tips for following this plan? General guidelines If you are overweight, work with your health care provider to lose weight safely. Losing just 5 10%of your body weight can improve your overall [...] canola oil, flaxseeds, walnuts, almonds, and seeds. ?[place]-3 fats. These are found in foods such as salmon, mackerel, sardines, tuna, flaxseed oil, andground flaxseeds. Choose grain products that have whole [...] oatmeal, bulgur, barley, quinoa, or brown rice. [place] or whole wheat flour tortillas. Meats and other proteins Ground beef (85% or leaner), grass-fed beef, or beef trimmed of fat. Skinless chicken or turkey. Ground chicken or turkey. Pork trimmed of fat. All fish and seafood. Egg whites. Dried beans, peas, orlentils. Unsalted nuts or seeds. Unsalted canned beans. Natural nut butters without added sugar andoil. Dairy Low-fat or nonfat dairy products, such as skim or 1% milk, 2% or reduced-fat cheeses, low-fat and fat-free ricotta or cottage cheese, or plain low-fat and nonfat yogurt. Fats and oils Tub margarine without trans fats. Light or reduced-fat mayonnaise and salad dressings. Avocado. Cana, canola, sesame, or safflower oils. The items [...] meat. Dairy Whole or 2% milk, cream, ggcs-tpe-dwdw, and cream cheese. Whole milk cheeses. Whole-fat or sweetened yogurt. Full-fat cheeses. Nondairy creamers and whipped toppings. Processed cheese, cheese spreads, and cheese curds. Fats and oils Butter, stick margarine, lard, shortening, ghee, or torres fat. Coconut, palm kernel, and palm oils. Beverages Alcohol. Sugar-sweetened drinks such as sodas, lemonade, and fruit drinks. Sweets and desserts [place] syrup, sugars, honey, and molasses. Candy. Jam [...] follow a diet that limits fat and cholesterol.Doing this may help lower your risk for heart disease and other conditions. Choose healthy fats, such as monounsaturated and polyunsaturated fats, and foods high in omega-3 fatty acids. Eat fiber-rich foods, such as whole grains, beans, peas, fruits, and vegetables. Limit or avoid alcohol, fried foods, and foods high in saturated fats, partially hydrogenated oils,and sugar. This information is not intended to replace advice given to you by your health care provider. Make sure you discuss any questions you have with your health care provider. Document Revised: 03/29/2022 Document Reviewed: 03/29/2022 [employer] Patient Education 2022 [employer]. 05/26/2024 15:45:13 Hypertension, Adult, Jnqa-hs-Idsb Hypertension, Adult Hypertension is another name for high blood pressure. High blood pressure forces your heart to workharder to pump blood. This can cause problems [...] at each meal with low-fat (lean) proteins. Low- fat proteins include fish, chicken without skin, eggs, [...] doctor. Keep all follow-up visits. Medicines Take icfx-adg-roccjqf and prescription medicines only as told by your doctor. Follow directions carefully. Do not skip doses of blood pressure medicine. The medicine does not work as well if you skip doses.Skipping doses also puts you at risk for [...] provider. Document Revised: 09/05/2022 Document Reviewed: 09/05/2022 [employer] Patient Education 2022 [employer]. 05/26/2024 15:45:09 DASH Eating Plan DASH Eating [...] methods such as baking, boiling, grilling, roasting, andbroiling instead. Cook with heart-healthy oils, such as [...] steamed, roasted, or grilled). Low-sodium or reduced-sodium tomatoand vegetable juice. Low-sodium or reduced-sodium tomato sauce and tomato paste. Low-sodium or reduced-sodium canned vegetables. Grains Whole-grain or whole-wheat bread. Whole-grain or whole-wheat pasta. Brown rice. Oatmeal. Quinoa. Bulgur. Whole-grain and low-sodium cereals. Dian bread. Low- fat, low-sodium crackers. Whole-wheat flour tortillas. Meats and [...] milk. Reduced-fat, low-fat, or fat-free cheeses. Nonfat, low-sodiumricotta or cottage cheese. Low-fat or nonfat yogurt. [...] Dairy Whole or 2% milk, cream, and ndnf-pgy-zcxy. Whole or full-fat cream cheese. Whole-fat or [...] more information National Heart, Lung, and Blood [place]: www.nhlbi.nih.gov [place] Heart Association: www.heart.org Academy of Nutrition and [...] provider. Document Revised: 10/20/2020 Document Reviewed: 10/20/2020 [employer] Patient Education 2022 [employer]. 05/26/2024 15:45:06 Major Depressive Disorder, Adult Major [...] and with everyday activities, such as work, school,and activities that are usually pleasant. MDD may be mild, moderate, or severe. It may be single-episode MDD, which happens once, or recurrent MDD, which may occur multiple times. What are the causes? The exact cause of this condition is not known. MDD is most likely caused by a combination of things, which may include: Your personality traits. Bagnell or conditioned behaviors or thoughts or feelings [...] medicines help to balance the brain chemicals thataffect your emotions. Lifestyle changes. You may be [...] your health care provider. General instructions Take xkxo-dky-jtpanoq and prescription medicines only as told by your health care provider. Eat a healthy diet and get plenty of sleep. Consider joining a support group. Your health care provider may be able to recommend one. Keep all follow-up visits as told by your health care provider. This is important. Where to find more information National [place] on Mental Illness: www.julia.org [place] National [place] of Mental Health: www.nimh.nih.gov Contact a health care provider if: Your symptoms get worse. You develop new symptoms. Get help right away if: You self-harm. You have serious thoughts about hurting yourself or others. You hallucinate. If you ever feel like you may hurt yourself or others, or have thoughts about taking your own life,get help right away. Go to your nearest emergency department or: Call your local emergency services (838 in the [place] Call a suicide crisis helpline, such as the National Suicide Prevention Lifeline at or 553 in the [place] This is open 24 hours a day in the [place] Text the Crisis Text Line at 454522 (in the [place] Summary Major depressive disorder [...] You may need more than one type oftreatment. Get help right away if you have serious thoughts about hurting yourself or others. This information is not intended to replace advice given to you by your health care provider. Make sure you discuss any questions you have with your health care provider. Document Revised: 06/12/2022 Document Reviewed: 10/28/2020 [employer] Patient Education 2022 [employer]. [facility] 06-26-2024 Hospital Discharge instructions Patient Education 05/26/2024 13:32:09 [...] condition in which a person's bones become softerthan normal. In adults, this condition is called [...] skin to direct sunlight for at least 15minutes every day. If you have dark skin, [...] such as almond, soy, or oat milks. ?[place] juice. ?Margarine. When choosing foods, check the [...] including vitamins, herbs, eye drops, creams, and sxxg-ojn-svzhinx medicines. Take omuo-dmg-pbmdlzt and prescription medicines only as told by your health care provider. Take supplements only as told by your health care provider. To increase absorption of your supplement, take it with a meal or snack. Summary Vitamin D plays a soto role in the health of bones and teeth, reduces inflammation, and improves thebody's defense system (immune system). A vitamin D [...] provider. Document Revised: 08/23/2022 Document Reviewed: 08/23/2022 [employer] Patient Education 2022 [employer]. 05/26/2024 13:32:06 Dyslipidemia Dyslipidemia Dyslipidemia is an imbalance of waxy, fat-like substances (lipids) in the blood. The body needs lipids in small amounts. Dyslipidemia often involves a high level of cholesterol or triglycerides, which are types of lipids. Common forms of dyslipidemia include: High levels of LDL cholesterol. LDL is the type of cholesterol that causes fatty deposits (plaques)to build up in the blood vessels that [...] or if you are a woman who hasgone through menopause. Other risk factors include: Having [...] target range for your lipid levels based onthis information. Treatment for dyslipidemia starts with lifestyle [...] you need help quitting, ask your health careprovider. Take rlzy-pin-dtnxfll and prescription medicines only as told by [...] provider. Document Revised: 01/21/2022 Document Reviewed: 01/21/2022 [employer] Patient Education 2022 [employer]. 05/26/2024 13:32:04 Hypertension, Adult Hypertension, Adult High [...] are some conditions that result in high bloodpressure. What increases the risk? Certain factors may make you more likely to develop high blood pressure. Some of these risk factorsare under your control, including: Smoking. Not getting [...] on the floor. The cuff of the bloodpressure monitor will be placed directly against the [...] in sodium, added sugar, and fat. An exampleof this eating plan is called the DASH [...] you need help quitting, ask your health careprovider. Monitor your blood pressure at home as told by your health care provider. Keep all follow-up visits. This is important. Medicines Take xssm-fwb-bpkqjqm and prescription medicines only as told by your health care provider. Follow directions carefully. Blood pressure medicines must be taken as prescribed. Do not skip doses of blood pressure medicine. Doing this puts you at risk for problems and can makethe medicine less effective. Ask your health care [...] provider. Document Revised: 09/24/2022 Document Reviewed: 09/24/2022 [employer] Patient Education 2022 [employer]. 05/26/2024 13:32:03 Heart Disease Prevention Heart Disease Prevention Heart disease is the leading cause of in the world. Coronary artery disease is the most common cause of heart disease. This condition results when cholesterol and other substances (plaque) build up inside the franco of the blood vessels that supply your heart muscle (arteries). This buildup inarteries is called atherosclerosis. You can take actions [...] much sodium is safe for you. Most peopleshould have less than 2,300 mg each day. [...] of hard liquor (44 mL). Medicines Take dbzs-bnm-vgdunpa and prescription medicines only as told by [...] should be no higher than 120, and thelower number (diastolic) no higher than 80. Treatment [...] Centers for Disease Control and Prevention: www.cdc.gov/heartdisease [place] Heart Association: www.heart.org Summary Heart disease is [...] provider. Document Revised: 07/17/2022 Document Reviewed: 07/17/2022 [employer] Patient Education 2022 [employer]. 05/26/2024 13:31:57 Hypothyroidism Hypothyroidism Hypothyroidism is when the thyroid gland does not make enough of certain hormones. This is called an underactive thyroid. The thyroid gland is a small gland located in the lower front part of the neck, just in front of the windpipe (trachea). This gland makes hormones that help control how the bodyuses food for energy (metabolism) as well as how the heart and brain function. These hormones also play a role in keeping your bones strong. When the thyroid is underactive, it produces too little ofthe hormones thyroxine (T4) and triiodothyronine (T3). What are the causes? This condition may be caused by: Marie's disease. This is a disease in which [...] away. Follow these instructions at home: Take nzau-yyk-zhfhmdm and prescription medicines only as told by [...] triiodothyronine (T3). The most common cause is Marie's disease, a disease in which the body's disease-fighting system(immune system) attacks the thyroid gland. The condition can also be caused by viral infections, medicine, , or past radiation treatment to the head or neck. Symptoms may include weight gain, dry skin, constipation, feeling as though you do not have energy,and not being able to tolerate cold. This condition is treated with medicine to replace the thyroid hormones that your body does not make. This information is not intended to replace advice given to you by your health care provider. Make sure you discuss any questions you have with your health care provider. Document Revised: 11/19/2022 Document Reviewed: 11/19/2022 [employer] Patient Education 2022 [employer]. 05/26/2024 13:18:44 Dyslipidemia Dyslipidemia Dyslipidemia is an imbalance of waxy, fat-like substances (lipids) in the blood. The body needs lipids in small amounts. Dyslipidemia often involves a high level of cholesterol or triglycerides, which are types of lipids. Common forms of dyslipidemia include: High levels of LDL cholesterol. LDL is the type of cholesterol that causes fatty deposits (plaques)to build up in the blood vessels that [...] or if you are a woman who hasgone through menopause. Other risk factors include: Having [...] target range for your lipid levels based onthis information. Treatment for dyslipidemia starts with lifestyle [...] you need help quitting, ask your health careprovider. Take ywlz-ogq-peyafiz and prescription medicines only as told by [...] provider. Document Revised: 01/21/2022 Document Reviewed: 01/21/2022 [employer] Patient Education 2022 [employer]. 05/26/2024 13:18:40 Heart Disease Prevention Heart Disease Prevention Heart disease is the leading cause of in the world. Coronary artery disease is the most common cause of heart disease. This condition results when cholesterol and other substances (plaque) build up inside the franco of the blood vessels that supply your heart muscle (arteries). This buildup inarteries is called atherosclerosis. You can take actions [...] much sodium is safe for you. Most peopleshould have less than 2,300 mg each day. [...] of hard liquor (44 mL). Medicines Take wdxw-gvp-ynhgfyb and prescription medicines only as told by [...] should be no higher than 120, and thelower number (diastolic) no higher than 80. Treatment [...] Centers for Disease Control and Prevention: www.cdc.gov/heartdisease [place] [employer] Association: www.heart.org Summary Heart disease is [...] provider. Document Revised: 07/17/2022 Document Reviewed: 07/17/2022 [employer] Patient Education 2022 [employer]. 05/26/2024 13:18:39 DASH Eating Plan DASH Eating [...] methods such as baking, boiling, grilling, roasting, andbroiling instead. Cook with heart-healthy oils, such as [...] steamed, roasted, or grilled). Low-sodium or reduced-sodium tomatoand vegetable juice. Low-sodium or reduced-sodium tomato sauce and tomato paste. Low-sodium or reduced-sodium canned vegetables. Grains Whole-grain or whole-wheat bread. Whole-grain or whole-wheat pasta. Brown rice. Oatmeal. Quinoa. Bulgur. Whole-grain and low-sodium cereals. Dian bread. Low- fat, low-sodium crackers. Whole-wheat flour tortillas. Meats and [...] milk. Reduced-fat, low-fat, or fat-free cheeses. Nonfat, low-sodiumricotta or cottage cheese. Low-fat or nonfat yogurt. [...] Dairy Whole or 2% milk, cream, and kgnv-usq-fsmj. Whole or full-fat cream cheese. Whole-fat or sweetened yogurt. Full-fat cheese. Nondairy creamers. Whipped toppings. Processed cheese and cheese spreads. Fats and oils Butter. Stick margarine. Lard. Shortening. Ghee. Torres fat. Tropical oils, such as coconut, palm kernel, or palm oil. Seasonings and condiments Onion salt, garlic salt, seasoned salt, table salt, and sea salt. [facility] sauce. Tartar sauce. Barbecue sauce. Teriyaki sauce. [...] more information National Heart, Lung, and Blood [place]: www.nhlbi.nih.gov [place] [employer]: www.heart.org Academy of Nutrition and [...] provider. Document Revised: 10/20/2020 Document Reviewed: 10/20/2020 [employer] Patient Education 2022 [employer]. 05/26/2024 13:18:36 Genital Yeast Infection, Male Genital [...] may be prescribed by your health care provideror they may be available over the counter. Self-care at home. For men who are not circumcised, circumcision may be recommended to control infections that return and are difficult to treat. Follow these instructions at home: Medicines Take or apply mdro-mks-nfvjtvz and prescription medicines only as told by your health care provider. Take your antifungal medicine as told by your health care provider. Do not stop taking the medicineeven if you start to feel better. Self-care [...] sexual contact, but it can develop without sexualcontact. For instance, you may be more likely [...] provider. Document Revised: 11/13/2022 Document Reviewed: 11/13/2022 [employer] Patient Education 2022 [employer]. 05/26/2024 13:18:33 Hypothyroidism Hypothyroidism Hypothyroidism is when the thyroid gland does not make enough of certain hormones. This is called an underactive thyroid. The thyroid gland is a small gland located in the lower front part of the neck, just in front of the windpipe (trachea). This gland makes hormones that help control how the bodyuses food for energy (metabolism) as well as how the heart and brain function. These hormones also play a role in keeping your bones strong. When the thyroid is underactive, it produces too little ofthe hormones thyroxine (T4) and triiodothyronine (T3). What are the causes? This condition may be caused by: Marie's disease. This is a disease in which [...] away. Follow these instructions at home: Take fuwk-eio-izddjqu and prescription medicines only as told by [...] triiodothyronine (T3). The most common cause is Marie's disease, a disease in which the body's disease-fighting system(immune system) attacks the thyroid gland. The condition can also be caused by viral infections, medicine, , or past radiation treatment to the head or neck. Symptoms may include weight gain, dry skin, constipation, feeling as though you do not have energy,and not being able to tolerate cold. This condition is treated with medicine to replace the thyroid hormones that your body does not make. This information is not intended to replace advice given to you by your health care provider. Make sure you discuss any questions you have with your health care provider. Document Revised: 11/19/2022 Document Reviewed: 11/19/2022 [employer] Patient Education 2022 [employer]. Follow Up Care 10/30/2023 10:46:14 With:Vilma John [facility], [facility] Address: [address], [address] [facility] [address] [place] [address]- Business (1) When:Within 3 Month(s) Comments:3 mo f/u for htn, hypothyroidism, depression [facility] 06-12-2024 Hospital Discharge instructions Patient Education 05/12/2024 15:56:51 [...] cough may last longer. Allergies, asthma, and exposureto smoke may make the condition worse. What [...] water to the air to help you breathebetter. Taking a medicine that thins mucus and clears congestion (expectorant). Taking a medicine that prevents or stops coughing (cough suppressant). It is not common to take an antibiotic medicine for this condition. Follow these instructions at home: Take gvmt-qjh-ihcbqyl and prescription medicines only as told by [...] you need help quitting, ask your health careprovider. Get plenty of rest. Return to your [...] and water are not available, use hand opera singer. Avoid contact with people who have cold [...] airways (bronchi) that come off the windpipe (trachea)in the lungs. The swelling causes the airways to get smaller and make more mucus than normal. Drinking more fluids can help thin your mucus so it is easier to cough up. Take zdvf-yfk-eboglhu and prescription medicines only as told by your health care provider. Do not use any products that contain nicotine or tobacco. These products include cigarettes, chewing tobacco, and vaping devices, such as e-cigarettes. If you need help quitting, ask your health careprovider. Contact a health care provider if your symptoms do not improve after 2 weeks. This information is not intended to replace advice given to you by your health care provider. Make sure you discuss any questions you have with your health care provider. Document Revised: 02/27/2023 Document Reviewed: 03/20/2022 [employer] Patient Education 2022 [employer]. 05/12/2024 15:56:49 Otitis Media With Effusion, Adult Otitis Media With Effusion, Adult Otitis media with effusion (OME) is inflammation and fluid (effusion) in the middle ear without having an ear infection. The middle ear is the space behind the eardrum. The middle ear is connected tothe back of the throat by a narrow [...] signs and symptoms of the condition. Your providerwill also do a physical exam to check [...] few weeks. Home care treatment may include: Eyyv-fgg-edbqupu pain relievers. A warm, moist cloth placed over the ear. Severe cases may require a procedure to insert tubes in the ears (tympanostomy tubes) to drain the fluid. Follow these instructions at home: Take bzzo-djg-vityswb and prescription medicines only as told by [...] and recurrent acute ear infections (acute otitis media),which may require treatment. This information is not intended to replace advice given to you by your health care provider. Make sure you discuss any questions you have with your health care provider. Document Revised: 03/14/2022 Document Reviewed: 03/14/2022 [employer] Patient Education 2022 [employer]. 05/12/2024 15:56:46 Varicose Veins Varicose Veins Varicose [...] symptoms may get worse when you sit orstand for long periods of time. How is [...] way your varicose veins look, you may chooseto have a procedure to close the varicose [...] Follow these instructions at home: Medicines Take eymf-wfa-ndwhvwr and prescription medicines only as told by [...] you need help quitting, ask your health careprovider. Wear compression stockings as told by your [...] provider. Document Revised: 05/01/2022 Document Reviewed: 05/01/2022 [employer] Patient Education 2022 [employer]. 05/12/2024 15:56:37 Fatigue Fatigue If you have fatigue, you feel tired all the time and have a lack of energy or a lack of motivation.Fatigue may make it difficult to start or [...] Follow these instructions at home: Medicines Take huqm-tgg-ztuhxjb and prescription medicines only as told by [...] yourself or others, or have thoughts about takingyour own life. Go to your nearest emergency room or: Call 911. Call the National Suicide Prevention Lifeline at or 695. This is open 24 hours a day. Text the Crisis Text Line at 461683. Summary If you have fatigue, you feel [...] provider. Document Revised: 09/09/2022 Document Reviewed: 09/09/2022 [employer] Patient Education 2022 [employer]. 05/12/2024 15:56:35 Community-Acquired Pneumonia, Adult Community-Acquired Pneumonia, [...] caused by a virus, such as the commoncold and the flu (influenza). It can also be caused by bacteria or fungi. While the common cold andinfluenza can pass from person to person (are [...] or a physical exam. You may also havetests, including: Imaging, such as a chest X-ray [...] help you breathe if you cannot breathe wellon your own or maintain a safe level of blood oxygen. Thoracentesis. This procedure removes any buildup of pleural fluid to help with breathing. Follow these instructions at home: Medicines Take ajle-apw-vjxrvyw and prescription medicines only as told by [...] you need help quitting, ask your health careprovider. Eat a healthy diet. This includes plenty [...] and water are not available, use hand opera singer. Contact a health care provider if: You [...] been in the hospital. It can be causedby bacteria, viruses, or fungi. This condition may be treated with antibiotics or antiviral medicines. Severe pneumonia may require a hospital stay and treatment to help with breathing. This information is not intended to replace advice given to you by your health care provider. Make sure you discuss any questions you have with your health care provider. Document Revised: 01/15/2023 Document Reviewed: 01/15/2023 [employer] Patient Education 2022 [employer]. Follow Up Care 05/05/2024 10:40:01 With:Vilma John [facility], [facility] Address: [address], [address] [facility] [address] [place] [address]- When:Within 2 Week(s) Comments:ear check , labs reviewed [facility] 05-15-2024 Hospital Discharge instructions Patient Education 04/14/2024 10:30:43 Upper Respiratory Infection, Adult Upper Respiratory Infection, Adult An upper respiratory infection (URI) is a common viral infection of the nose, throat, and upper airpassages that lead to the lungs. The most [...] medicines to help relieve symptoms, such as: Xoky-xjz-iwfrrzw cold medicines. Cough suppressants. Coughing is a [...] and other clear broths. General instructions Take kjuq-fws-pixnodz and prescription medicines only as told by your health care provider. These include cold medicines, fever reducers, and cough suppressants. Do not use any products that contain nicotine or tobacco. These products include cigarettes, chewing tobacco, and vaping devices, such as e-cigarettes. If you need help quitting, ask your health careprovider. Stay away from secondhand smoke. Stay up [...] and water are not available, use hand opera singer. Avoid touching your mouth, face, eyes, or [...] provider. Document Revised: 06/19/2022 Document Reviewed: 06/19/2022 [employer] Patient Education 2022 [employer]. 04/14/2024 10:30:41 Acute Bronchitis, Adult Acute Bronchitis, [...] cough may last longer. Allergies, asthma, and exposureto smoke may make the condition worse. What [...] water to the air to help you breathebetter. Taking a medicine that thins mucus and clears congestion (expectorant). Taking a medicine that prevents or stops coughing (cough suppressant). It is not common to take an antibiotic medicine for this condition. Follow these instructions at home: Take qvkf-pcx-ffbqtsz and prescription medicines only as told by [...] you need help quitting, ask your health careprovider. Get plenty of rest. Return to your [...] and water are not available, use hand opera singer. Avoid contact with people who have cold [...] airways (bronchi) that come off the windpipe (trachea)in the lungs. The swelling causes the airways to get smaller and make more mucus than normal. Drinking more fluids can help thin your mucus so it is easier to cough up. Take hzer-fmq-ccflwnv and prescription medicines only as told by your health care provider. Do not use any products that contain nicotine or tobacco. These products include cigarettes, chewing tobacco, and vaping devices, such as e-cigarettes. If you need help quitting, ask your health careprovider. Contact a health care provider if your symptoms do not improve after 2 weeks. This information is not intended to replace advice given to you by your health care provider. Make sure you discuss any questions you have with your health care provider. Document Revised: 02/27/2023 Document Reviewed: 03/20/2022 [employer] Patient Education 2022 [employer]. 04/14/2024 10:30:39 Cancer Screening for Women Cancer [...] along with a Pap test. This testchecks forabnormalities in the lowest part of the uterus [...] a flexible tube with a small camera isinserted into the rectum. CT colonography. This test uses X-rays and a contrast dye to check the colon for polyps. If a polypis found, you may need to have a [...] stool. For this test, you will need tocollect stool samples at home. Stool DNA test. [...] if anything looks unusual. Women with a qhrowe-tthp-ybyspb risk for skin cancer may want to see a provisioning specialist (mechanical service technician) for an annual body check. What are the benefits of screening? Cancer screening is done to look for cancer in the very early stages, before it spreads and becomesharder to treat and before you would start to notice symptoms. Finding cancer early improves the chances of successful treatment. It may save your life. Where to find more information [place] [employer]: www.cancer.org Centers for Disease Control and Prevention: www.cdc.gov National Cancer [place]: www.cancer.gov U.S. Department of Health and Human [...] provider. Document Revised: 04/15/2022 Document Reviewed: 10/13/2020 [employer] Patient Education 2022 [employer]. Follow Up Care 04/12/2024 08:09:12 With:Vilma John FAM, [facility] Address: [address] [place] [address] [place] [id number]- When:Within 1 Week(s) [facility] 03-08-2024 Hospital Discharge instructions Patient Education 02/06/2024 11:57:16 [...] ice if it does not help with thepain. Squeeze a soft ball or a foam pad as much as possible. This helps to keep the shoulder from swelling. It also helps to strengthen the arm. General instructions Take vmhi-cur-dheteer and prescription medicines only as told by [...] provider. Document Revised: 08/02/2022 Document Reviewed: 08/02/2022 [employer] Patient Education 2022 [employer]. 02/06/2024 11:57:02 Degenerative Disk Disease Degenerative Disk [...] Follow these instructions at home: Medicines Take mnbh-dpf-rldjaom and prescription medicines only as told by your health care provider. Ask your health care provider if the medicine prescribed to you: ?Requires you to avoid driving or using machinery. ?Can cause constipation. You may need to take these actions to prevent or treat constipation: ?Drink enough fluid to keep your urine pale yellow. ?Take inxk-zsj-axqloqc or prescription medicines. ?Eat foods that are [...] told by your health care provider. Heat canreduce the stiffness of your muscles. Use the [...] contain nicotine or tobacco, such as cigarettes, e- cigarettes, and chewing tobacco. If you need help [...] lower back are most often affected. Take mghp-iha-degbgfh and prescription medicines only as told by your health care provider. This information is not intended to replace advice given to you by your health care provider. Make sure you discuss any questions you have with your health care provider. Document Revised: 03/01/2021 Document Reviewed: 03/01/2021 [employer] Patient Education 2022 [employer]. 02/06/2024 11:56:38 Major Depressive Disorder, Adult Major [...] and with everyday activities, such as work, school,and activities that are usually pleasant. MDD may be mild, moderate, or severe. It may be single-episode MDD, which happens once, or recurrent MDD, which may occur multiple times. What are the causes? The exact cause of this condition is not known. MDD is most likely caused by a combination of things, which may include: Your personality traits. Bagnell or conditioned behaviors or thoughts or feelings [...] medicines help to balance the brain chemicals thataffect your emotions. Lifestyle changes. You may be [...] your health care provider. General instructions Take boqp-iwx-czydpuc and prescription medicines only as told by your health care provider. Eat a healthy diet and get plenty of sleep. Consider joining a support group. Your health care provider may be able to recommend one. Keep all follow-up visits as told by your health care provider. This is important. Where to find more information [place] on Mental Illness: www.julia.org [place] National [place] of Mental Health: www.nimh.nih.gov Contact a health care provider if: Your symptoms get worse. You develop new symptoms. Get help right away if: You self-harm. You have serious thoughts about hurting yourself or others. You hallucinate. If you ever feel like you may hurt yourself or others, or have thoughts about taking your own life,get help right away. Go to your nearest emergency department or: Call your local emergency services (706 in the [place] Call a suicide crisis helpline, such as the National Suicide Prevention Lifeline at or 537 in the [place] This is open 24 hours a day in the [place] Text the Crisis Text Line at 781389 (in the [place] Summary Major depressive disorder [...] You may need more than one type oftreatment. Get help right away if you have serious thoughts about hurting yourself or others. This information is not intended to replace advice given to you by your health care provider. Make sure you discuss any questions you have with your health care provider. Document Revised: 06/12/2022 Document Reviewed: 10/28/2020 [employer] Patient Education 2022 [employer]. 02/06/2024 11:56:36 Hypothyroidism Hypothyroidism Hypothyroidism is when the thyroid gland does not make enough of certain hormones. This is called an underactive thyroid. The thyroid gland is a small gland located in the lower front part of the neck, just in front of the windpipe (trachea). This gland makes hormones that help control how the bodyuses food for energy (metabolism) as well as how the heart and brain function. These hormones also play a role in keeping your bones strong. When the thyroid is underactive, it produces too little ofthe hormones thyroxine (T4) and triiodothyronine (T3). What are the causes? This condition may be caused by: Marie's disease. This is a disease in which [...] away. Follow these instructions at home: Take hhrl-wti-xphriwh and prescription medicines only as told by [...] triiodothyronine (T3). The most common cause is Marie's disease, a disease in which the body's disease-fighting system(immune system) attacks the thyroid gland. The condition can also be caused by viral infections, medicine, , or past radiation treatment to the head or neck. Symptoms may include weight gain, dry skin, constipation, feeling as though you do not have energy,and not being able to tolerate cold. This condition is treated with medicine to replace the thyroid hormones that your body does not make. This information is not intended to replace advice given to you by your health care provider. Make sure you discuss any questions you have with your health care provider. Document Revised: 11/19/2022 Document Reviewed: 11/19/2022 [employer] Patient Education 2022 [employer]. [facility] 02-15-2024 Hospital Discharge instructions Patient Education 01/15/2024 18:54:24 [...] and with everyday activities, such as work, school,and activities that are usually pleasant. MDD may be mild, moderate, or severe. It may be single-episode MDD, which happens once, or recurrent MDD, which may occur multiple times. What are the causes? The exact cause of this condition is not known. MDD is most likely caused by a combination of things, which may include: Your personality traits. Bagnell or conditioned behaviors or thoughts or feelings [...] medicines help to balance the brain chemicals thataffect your emotions. Lifestyle changes. You may be [...] your health care provider. General instructions Take iozv-jpe-yqfkxcv and prescription medicines only as told by your health care provider. Eat a healthy diet and get plenty of sleep. Consider joining a support group. Your health care provider may be able to recommend one. Keep all follow-up visits as told by your health care provider. This is important. Where to find more information [place] on Mental Illness: www.julia.org [place] National [place] of Mental Health: www.nimh.nih.gov Contact a health care provider if: Your symptoms get worse. You develop new symptoms. Get help right away if: You self-harm. You have serious thoughts about hurting yourself or others. You hallucinate. If you ever feel like you may hurt yourself or others, or have thoughts about taking your own life,get help right away. Go to your nearest emergency department or: Call your local emergency services (426 in the [place] Call a suicide crisis helpline, such as the National Suicide Prevention Lifeline at or 118 in the [place] This is open 24 hours a day in the [place] Text the Crisis Text Line at 148659 (in the [place] Summary Major depressive disorder [...] You may need more than one type oftreatment. Get help right away if you have serious thoughts about hurting yourself or others. This information is not intended to replace advice given to you by your health care provider. Make sure you discuss any questions you have with your health care provider. Document Revised: 06/12/2022 Document Reviewed: 10/28/2020 [employer] Patient Education 2022 [employer]. 01/15/2024 18:54:21 Cough, Adult Cough, Adult Coughing [...] Follow these instructions at home: Medicines Take xixj-rmg-dafdwsh and prescription medicines only as told by [...] of a condition that needs treatment. Take gipt-odq-xfkbowv and prescription medicines only as told by your health care provider. Always cover your mouth when you cough. Contact a health care provider if you have new symptoms or a cough that does not get better after 23 weeks or gets worse. This information is not intended to replace advice given to you by your health care provider. Make sure you discuss any questions you have with your health care provider. Document Revised: 12/06/2019 Document Reviewed: 12/06/2019 [employer] Patient Education 2022 [employer]. 01/15/2024 18:54:18 Vitamin B12 Deficiency Vitamin B12 [...] added to them (are fortified), such as imavf-dq-gop breakfast cereals. Check the label on the [...] you eat and drink, getting vitamin B12 injections,or taking vitamin B12 supplements. This information is not intended to replace advice given to you by your health care provider. Make sure you discuss any questions you have with your health care provider. Document Revised: 07/12/2022 Document Reviewed: 07/12/2022 [employer] Patient Education 2022 [employer]. 01/15/2024 18:54:15 Paresthesia Paresthesia Paresthesia is an abnormal burning or prickling sensation. It is usually felt in the hands, arms, legs, or feet. However, it may occur in any part of the body. Usually, paresthesia is not painful. Itmay feel like: Tingling or numbness. Buzzing. Itching. [...] hard liquor (44 mL). General instructions Take onxh-zjf-ewwoumw and prescription medicines only as told by your health care provider. Do not use any products that contain nicotine or tobacco. These products include cigarettes, chewing tobacco, and vaping devices, such as e-cigarettes. If you need help quitting, ask your health careprovider. If you have diabetes, work closely with [...] provider. Document Revised: 07/29/2022 Document Reviewed: 07/29/2022 [employer] Patient Education 2022 [employer]. 01/15/2024 18:54:13 Cervical Radiculopathy Cervical Radiculopathy Cervical [...] your health care provider. Managing pain Take slon-jrp-xcyubsw and prescription medicines only as told by [...] not have a cervical collar, ask your healthcare provider if it is safe to drive while your neck heals. Ask your health care provider if the medicine prescribed to you requires you to avoid driving or using machinery. Do not use any products that contain nicotine or tobacco. These products include cigarettes, chewing tobacco, and vaping devices, such as e-cigarettes. If you need help quitting, ask your health careprovider. Keep all follow-up visits. This is important. [...] provider. Document Revised: 05/23/2022 Document Reviewed: 05/23/2022 [employer] Patient Education 2022 [employer]. 01/15/2024 18:54:09 Migraine Headache Migraine Headache A [...] contain nitrates, glutamate, aspartame, or tyramine. Aged cheeses,chocolate, or caffeine may also be triggers. Doing [...] Follow these instructions at home: Medicines Take jefe-gax-tkmbafl and prescription medicines only as told by your health care provider. Ask your health care provider if the medicine prescribed to you: ?Requires you to avoid driving or using heavy machinery. ?Can cause constipation. You may need to take these actions to prevent or treat constipation: ?Drink enough fluid to keep your urine pale yellow. ?Take opgm-efz-mctremv or prescription medicines. ?Eat foods that are high in fiber, such as beans, whole grains, and fresh fruits and vegetables. ?Limit foods that are high in fat and processed sugars, such as fried or sweet foods. Lifestyle Do not drink alcohol. Do not use any products that contain nicotine or tobacco, such as cigarettes, e- cigarettes, and chewing tobacco. If you need help [...] provider. Document Revised: 03/10/2020 Document Reviewed: 12/30/2019 [employer] Patient Education 2022 [employer]. Follow Up Care 01/12/2024 07:56:41 With:Vilma John FAM, MED Address: [address] [place] [address] When:Within 1 Month(s) Comments:f/u labs, results from MRI, neurochanges and migraines, persistent cough [facility] 11-30-2023 Hospital Discharge instructions Patient Education 10/30/2023 11:25:52 Postmenopausal Bleeding Postmenopausal Bleeding Postmenopausal bleeding is any bleeding that a woman has after she has entered menopause. Menopauseis the end of a woman's fertile years. After menopause, a woman no longer ovulates and does not have menstrual periods. Therefore, she should no longer have bleeding from her vagina. Postmenopausal bleeding may have various causes, including: Menopausal hormone therapy (MHT). Endometrial atrophy. After menopause, low estrogen hormone levels cause the membrane that lines theuterus (endometrium) to become thin. You may have [...] to be a typical menstrual period, should bechecked by your health care provider. Treatment will [...] told by your health care provider. Take zsrm-xja-blmjgaj and prescription medicines only as told by [...] to be a typical menstrual period, should bechecked by your health care provider. Be sure to pay attention to any changes in your symptoms and keep all follow-up visits. This information is not intended to replace advice given to you by your health care provider. Make sure you discuss any questions you have with your health care provider. Document Revised: 05/03/2021 Document Reviewed: 05/03/2021 [employer] Patient Education 2022 [employer] 10/30/2023 11:25:43 Preventing Vitamin D Deficiency Preventing [...] condition in which a person's bones become softerthan normal. In adults, this condition is called [...] skin to direct sunlight for at least 15minutes every day. If you have dark skin, [...] such as almond, soy, or oat milks. ?[place] juice. ?Margarine. When choosing foods, check the [...] including vitamins, herbs, eye drops, creams, and hevz-tsp-yywmrkw medicines. Take axcp-yzd-gpzcioe and prescription medicines only as told by your health care provider. Take supplements only as told by your health care provider. To increase absorption of your supplement, take it with a meal or snack. Summary Vitamin D plays a soto role in the health of bones and teeth, reduces inflammation, and improves thebody's defense system (immune system). A vitamin D [...] provider. Document Revised: 08/23/2022 Document Reviewed: 08/23/2022 [employer] Patient Education 2022 [employer]. 10/30/2023 11:25:38 DASH Eating Plan DASH Eating [...] methods such as baking, boiling, grilling, roasting, andbroiling instead. Cook with heart-healthy oils, such as [...] steamed, roasted, or grilled). Low-sodium or reduced-sodium tomatoand vegetable juice. Low-sodium or reduced-sodium tomato sauce and tomato paste. Low-sodium or reduced-sodium canned vegetables. Grains Whole-grain or whole-wheat bread. Whole-grain or whole-wheat pasta. Brown rice. Oatmeal. Quinoa. Bulgur. Whole-grain and low-sodium cereals. Dian bread. Low- fat, low-sodium crackers. Whole-wheat flour tortillas. Meats and [...] milk. Reduced-fat, low-fat, or fat-free cheeses. Nonfat, low-sodiumricotta or cottage cheese. Low-fat or nonfat yogurt. [...] Dairy Whole or 2% milk, cream, and takk-kca-mcvi. Whole or full-fat cream cheese. Whole-fat or [...] more information National Heart, Lung, and Blood [place]: www.nhlbi.nih.gov [place] Heart Association: www.heart.org Academy of Nutrition and [...] provider. Document Revised: 10/20/2020 Document Reviewed: 10/20/2020 [employer] Patient Education 2022 [employer]. 10/30/2023 11:25:37 Major Depressive Disorder, Adult Major [...] and with everyday activities, such as work, school,and activities that are usually pleasant. MDD may be mild, moderate, or severe. It may be single-episode MDD, which happens once, or recurrent MDD, which may occur multiple times. What are the causes? The exact cause of this condition is not known. MDD is most likely caused by a combination of things, which may include: Your personality traits. Bagnell or conditioned behaviors or thoughts or feelings [...] medicines help to balance the brain chemicals thataffect your emotions. Lifestyle changes. You may be [...] your health care provider. General instructions Take pnak-lfa-hkjdfgo and prescription medicines only as told by your health care provider. Eat a healthy diet and get plenty of sleep. Consider joining a support group. Your health care provider may be able to recommend one. Keep all follow-up visits as told by your health care provider. This is important. Where to find more information National [place] on Mental Illness: www.julia.org [place] National [place] of Mental Health: www.nimh.nih.gov Contact a health care provider if: Your symptoms get worse. You develop new symptoms. Get help right away if: You self-harm. You have serious thoughts about hurting yourself or others. You hallucinate. If you ever feel like you may hurt yourself or others, or have thoughts about taking your own life,get help right away. Go to your nearest emergency department or: Call your local emergency services (121 in the [place] Call a suicide crisis helpline, such as the National Suicide Prevention Lifeline at or 494 in the [place] This is open 24 hours a day in the [place] Text the Crisis Text Line at 786543 (in the [place] Summary Major depressive disorder [...] You may need more than one type oftreatment. Get help right away if you have serious thoughts about hurting yourself or others. This information is not intended to replace advice given to you by your health care provider. Make sure you discuss any questions you have with your health care provider. Document Revised: 06/12/2022 Document Reviewed: 10/28/2020 [employer] Patient Education 2022 [employer]. Follow Up Care 09/26/2023 10:41:21 With:Vilma John [facility], [facility] Address: [address], [address] [place] [id number]- Business (1) When:02/04/2024 Comments:for f/u [facility] 10-27-2023 Hospital Discharge instructions Patient Education 09/26/2023 10:39:56 [...] and with everyday activities, such as work, school,and activities that are usually pleasant. MDD may be mild, moderate, or severe. It may be single-episode MDD, which happens once, or recurrent MDD, which may occur multiple times. What are the causes? The exact cause of this condition is not known. MDD is most likely caused by a combination of things, which may include: Your personality traits. Bagnell or conditioned behaviors or thoughts or feelings [...] medicines help to balance the brain chemicals thataffect your emotions. Lifestyle changes. You may be [...] your health care provider. General instructions Take plgx-aid-xdtterx and prescription medicines only as told by your health care provider. Eat a healthy diet and get plenty of sleep. Consider joining a support group. Your health care provider may be able to recommend one. Keep all follow-up visits as told by your health care provider. This is important. Where to find more information National [place] on Mental Illness: www.julia.org [place] National [place] of Mental Health: www.nimh.nih.gov Contact a health care provider if: Your symptoms get worse. You develop new symptoms. Get help right away if: You self-harm. You have serious thoughts about hurting yourself or others. You hallucinate. If you ever feel like you may hurt yourself or others, or have thoughts about taking your own life,get help right away. Go to your nearest emergency department or: Call your local emergency services (126 in the [place] Call a suicide crisis helpline, such as the National Suicide Prevention Lifeline at or 773 in the [place] This is open 24 hours a day in the [place] Text the Crisis Text Line at 607893 (in the [place] Summary Major depressive disorder [...] You may need more than one type oftreatment. Get help right away if you have serious thoughts about hurting yourself or others. This information is not intended to replace advice given to you by your health care provider. Make sure you discuss any questions you have with your health care provider. Document Revised: 06/12/2022 Document Reviewed: 10/28/2020 [employer] Patient Education 2022 [employer]. 09/26/2023 10:39:53 Insomnia Insomnia Insomnia is a [...] occurs at least three times a week forlonger than 3 months. What are the causes? [...] go back to bed. General instructions Take skao-ppa-etqkaac and prescription medicines only as told by [...] yourself or others, or have thoughts about takingyour own life. Go to your nearest emergency room or: Call 911. Call the National Suicide Prevention Lifeline at or 105. This is open 24 hours a day. Text the Crisis Text Line at 965600. Summary Insomnia is a sleep disorder that [...] provider. Document Revised: 10/28/2022 Document Reviewed: 10/28/2022 [employer] Patient Education 2022 [employer]. 09/26/2023 10:39:44 Heart Disease Prevention Heart Disease Prevention Heart disease is the leading cause of in the world. Coronary artery disease is the most common cause of heart disease. This condition results when cholesterol and other substances (plaque) build up inside the franoc of the blood vessels that supply your heart muscle (arteries). This buildup inarteries is called atherosclerosis. You can take actions [...] much sodium is safe for you. Most peopleshould have less than 2,300 mg each day. [...] of hard liquor (44 mL). Medicines Take xaka-dgu-uizujle and prescription medicines only as told by [...] should be no higher than 120, and thelower number (diastolic) no higher than 80. Treatment [...] Centers for Disease Control and Prevention: www.cdc.gov/heartdisease [place] Heart Association: www.heart.org Summary Heart disease is [...] provider. Document Revised: 07/17/2022 Document Reviewed: 07/17/2022 [employer] Patient Education 2022 [employer]. 09/26/2023 10:39:43 Form - Blood Pressure Record Sheet Blood Pressure Record Sheet To take your blood pressure, you will need a blood pressure machine. You may be prescribed one, or you can buy a blood pressure machine (blood pressure monitor) at your clinic, drug store, or online.When choosing one, look for these features: An [...] check. This makes sure the results are correct.Wait 1 2 minutes between measurements. Write down [...] methods such as baking, boiling, grilling, roasting, andbroiling instead. Cook with heart-healthy oils, such as [...] steamed, roasted, or grilled). Low-sodium or reduced-sodium tomatoand vegetable juice. Low-sodium or reduced-sodium tomato sauce and tomato paste. Low-sodium or reduced-sodium canned vegetables. Grains Whole-grain or whole-wheat bread. Whole-grain or whole-wheat pasta. Brown rice. Oatmeal. Quinoa. Bulgur. Whole-grain and low-sodium cereals. Dian bread. Low- fat, low-sodium crackers. Whole-wheat flour tortillas. Meats and [...] milk. Reduced-fat, low-fat, or fat-free cheeses. Nonfat, low-sodiumricotta or cottage cheese. Low-fat or nonfat yogurt. [...] Dairy Whole or 2% milk, cream, and kcec-xhg-ghlz. Whole or full-fat cream cheese. Whole-fat or [...] more information National Heart, Lung, and Blood [place]: www.nhlbi.nih.gov [place] Heart Association: www.heart.org Academy of Nutrition and [...] provider. Document Revised: 10/20/2020 Document Reviewed: 10/20/2020 [employer] Patient Education 2022 [employer]. 09/26/2023 10:39:41 Acute Bronchitis, Adult Acute Bronchitis, [...] cough may last longer. Allergies, asthma, and exposureto smoke may make the condition worse. What [...] water to the air to help you breathebetter. Taking a medicine that thins mucus and clears congestion (expectorant). Taking a medicine that prevents or stops coughing (cough suppressant). It is notcommon to take an antibiotic medicine for this condition. Follow these instructions at home: Take lvoa-dks-ivccmcp and prescription medicines only as told by [...] you need help quitting, ask your health careprovider. Get plenty of rest. Return to your [...] and water are not available, use hand opera singer. Avoid contact with people who have cold [...] airways (bronchi) that come off the windpipe (trachea)in the lungs. The swelling causes the airways to get smaller and make more mucus than normal. Drinking more fluids can help thin your mucus so it is easier to cough up. Take akzy-zsl-jclayhd and prescription medicines only as told by your health care provider. Do not use any products that contain nicotine or tobacco. These products include cigarettes, chewing tobacco, and vaping devices, such as e-cigarettes. If you need help quitting, ask your health careprovider. Contact a health care provider if your symptoms do not improve after 2 weeks. This information is not intended to replace advice given to you by your health care provider. Make sure you discuss any questions you have with your health care provider. Document Revised: 03/20/2022 Document Reviewed: 03/20/2022 [employer] Patient Education 2022 [employer]. Follow Up Care 09/19/2023 09:43:18 With:Esvin AVILES, ROSA MARIA Hilton, MED Address: [facility] [address], [facility] [address] [address]- When:Within 1 Month(s) Comments:Discussed labs, annual wellness [facility] 07-30-2023 Hospital Discharge instructions Patient Education 06/29/2023 16:49:31 [...] are some conditions that result in high bloodpressure. What increases the risk? Certain factors may make you more likely to develop high blood pressure. Some of these risk factorsare under your control, including: Smoking. Not getting [...] on the floor. The cuff of the bloodpressure monitor will be placed directly against the [...] in sodium, added sugar, and fat. An exampleof this eating plan is called the DASH [...] you need help quitting, ask your health careprovider. Monitor your blood pressure at home as told by your health care provider. Keep all follow-up visits. This is important. Medicines Take amnp-ucc-tdivxzj and prescription medicines only as told by your health care provider. Follow directions carefully. Blood pressure medicines must be taken as prescribed. Do not skip doses of blood pressure medicine. Doing this puts you at risk for problems and can makethe medicine less effective. Ask your health care [...] provider. Document Revised: 09/24/2022 Document Reviewed: 09/24/2022 [employer] Patient Education 2022 [employer]. 06/29/2023 16:49:29 Health Maintenance, Female Health Maintenance, [...] high risk for HIV. Your health care providermay recommend a prescription medicine to help prevent HIV infection. If you choose to take medicineto prevent HIV, you should first get tested [...] minerals and strength with aging. This can resultin bone fractures. If you are 65 years [...] you need help quitting, ask your health careprovider. Do not use street drugs. Do not [...] provider. Document Revised: 04/08/2022 Document Reviewed: 04/08/2022 [employer] Patient Education 2022 [employer]. 06/29/2023 16:49:28 Health Maintenance After Age 65 [...] have a fall. Your health care provider mayrecommend: Regular vision checks. Poor vision and conditions such as cataracts can make you more likely to have a fall. If you wear glasses, make sure to get your prescription updated if your vision changes. Medicine review. Work with your health care provider to regularly review all of the medicines you are taking, including sqak-pex-aixyeqh medicines. Ask your health care provider about any side effects that may make you more likely to have a fall. Tell your health care provider if any medicines thatyou take make you feel dizzy or sleepy. Strength and balance checks. Your health care provider may recommend certain tests to check your strength and balance while standing, walking, or changing positions. Foot health exam. Foot pain and numbness, as well as not wearing proper footwear, can make you morelikely to have a fall. Screenings, including: ?Osteoporosis [...] your balance and may make you more likelyto have a fall. Follow these instructions at [...] you need help quitting, ask your health careprovider. Activity Follow a regular exercise program to [...] feel dizzy, tiredness (fatigue), or off-balance. Take whuo-btx-rxsobjc and prescription medicines only as told by your health care provider. These include supplements. Eat a healthy diet and maintain a healthy weight. A healthy diet includes low- fat dairy products, low-fat (lean) meats, and fiber from whole grains, beans, and lots of fruits and vegetables. Stay current with your vaccines. Schedule regular health, dental, and eye exams. Summary Having a healthy lifestyle and getting preventive care can help to protect your health and wellnessafter age 65. Screening and testing are the best way to find a health problem early and help you avoid having a fall. Early diagnosis and treatment give you the best chance for managing medical conditions that aremore common for people who are older than age 65. Falls are a major cause of broken bones and head injuries in people who are older than age 65. Takeprecautions to prevent a fall at home. Work [...] provider. Document Revised: 04/08/2022 Document Reviewed: 04/08/2022 [employer] Patient Education 2022 [employer]. Follow Up Care 05/20/2023 09:31:12 With:Camryn Alves Address: [facility] [place] [address]- When:Within 1 Month(s) Comments:f/u LINA, med recheck: hydroxyzine. recheck BP With:Camryn Alves Address: [facility] [employer], [place] [address]- When:Within 6 Month(s) Comments:[facility] 01-17-2023 Evaluation + Plan note Future Scheduled Tests Laboratory* Vitamin D 25 Hydroxy 12/17/22 [facility] [place] 09-02-2021 Evaluation + Plan note Future Scheduled Tests Radiology* [facility] Appointment Date:09/12/2022 10:20:00 AM Scheduled Provider:Malinda Rubio NP Location:[facility] Appointment Type:FM Open Diagnostic Tests Pending * T3 Free 09/07/22 * Estradiol Level 09/07/22 * Estrogens Total 09/07/22 * Testosterone F&T 09/07/22 * Progesterone Level 09/07/22 * DHEA 09/07/22 * DHEAS [facility] Appointment Date:01/28/2023 10:20:00 AM Scheduled Provider:Cory JOSHUA MD Location:[facility] App[facility]ment Type[facility] Appointment Date:09/22/2023 11:00:00 AM Scheduled Provider:Camryn Alves Location:[facility] Appointment Type:FM Open Future Scheduled Tests Laboratory* TSH With T4fr Reflex 08/19/23 * Vitamin D 25 Hydroxy 08/19/23 * CBC w/ Auto Diff 08/19/23 * Comprehensive Metabolic Panel 08/19/23 * Lipid Panel 08/19/23 Radiology* XR Chest 2 Views 08/19/23 [facility] Evaluation + Plan note Future Appointments Appointment Date:10/29/2023 10:00:00 AM Scheduled Provider:Vilma John Location:[facility] Appointment Type:FM Open Future Scheduled Tests Laboratory* DHEA 09/26/23 * Estrogens Total 09/26/23 * TSH With T4fr Reflex 08/19/23 * Vitamin D 25 Hydroxy 08/19/23 * CBC w/ Auto Diff 08/19/23 * CBC w/ Auto Diff 09/26/23 * Comprehensive Metabolic Panel 08/19/23 * Comprehensive Metabolic Panel 09/26/23 * Lipid Panel 08/19/23 * Lipid Panel 09/26/23 * Progesterone Level 09/26/23 * Testosterone Level Total 09/26/23 [facility] Evaluation + Plan note Future Appointments Appointment Date:10/29/2023 10:00:00 AM Scheduled Provider:Vilma John Location:[facility] Appointment Type:FM Open Diagnostic Tests Pending * Progesterone Level 10/18/23 * Estrogens Total 10/18/23 * Testosterone Level Total 10/18/23 * DHEA 10/18/23 Future Scheduled Tests Laboratory* TSH With T4fr Reflex 08/19/23 * Vitamin D 25 Hydroxy 08/19/23 * CBC w/ Auto Diff 08/19/23 * Comprehensive Metabolic Panel 08/19/23 * Lipid [facility] Appointment Date:05/26/2024 11:20:00 AM Scheduled Provider:Vilma John Location:[facility] Appointment Type: Open Appointment Date:05/26/2024 01:00:00 PM Scheduled Provider: Location:[facility] Appointment Type:FM Medicare Wellness Subsequent Future Scheduled Tests Laboratory* TSH With T4fr Reflex 10/30/23 * TSH With T4fr Reflex 08/19/23 * Vitamin D 25 Hydroxy 10/30/23 * Vitamin D 25 Hydroxy 08/19/23 * CBC w/ Auto Diff 08/19/23 * Comprehensive Metabolic Panel 08/19/23 * Lipid Panel 08/19/23 [facility] Primary Care Evaluation + Plan note Future Appointments Appointment Date:05/26/2024 11:20:00 AM Scheduled Provider:Vilma John Location:[facility] Appointment Type: Open Appointment Date:05/26/2024 01:00:00 PM Scheduled Provider: Location:[facility] Appointment Type:FM Medicare Wellness Subsequent Future Scheduled Tests Laboratory* Sedimentation Rate Automated 01/15/24 * TSH With T4fr Reflex 10/30/23 * TSH With T4fr Reflex 08/19/23 * Vitamin D 25 Hydroxy 10/30/23 * Vitamin D 25 Hydroxy 08/19/23 * CBC w/ Auto Diff 08/19/23 * C-Reactive Protein 01/15/24 * Free T4 01/15/24 * Vitamin B12 Level 01/15/24 Radiology* MRA Neck w/o Contrast 01/15/24 * MRI Brain w/ + w/o Contrast 01/15/24 * MRI Spine Cervical w/o Contrast 01/15/24 [facility] Primary Care evaluation + Plan note Future Appointments Appointment Date:01/22/2024 06:00:00 PM Scheduled [facility]: [facility] () Appointment Date:05/26/2024 11:20:00 AM Scheduled Provider:Vilma John Location:[facility] Appointment Type: Open Appointment Date:05/26/2024 01:00:00 PM Scheduled Provider: Location:[facility] Appointment Type:FM Medicare Wellness Subsequent Future Scheduled Tests Laboratory* Sedimentation Rate Automated 01/15/24 * TSH With T4fr Reflex 10/30/23 * TSH With T4fr Reflex 08/19/23 * Vitamin D 25 Hydroxy 10/30/23 * Vitamin D 25 Hydroxy 08/19/23 * CBC w/ Auto Diff 08/19/23 * C-Reactive Protein 01/15/24 * Free T4 01/15/24 * Vitamin B12 Level 01/15/24 Radiology* MRI Brain w/ + w/o Contrast [facility]22[facility] Appointment Date:05/26/2024 11:20:00 AM Scheduled Provider:Vilma John Location:[facility] Appointment Type: Open Appointment Date:05/26/2024 01:00:00 PM Scheduled Provider: Location:[facility] Appointment Type:FM Medicare Wellness Subsequent Future Scheduled Tests Laboratory* Sedimentation Rate Automated 01/15/24 * TSH With T4fr Reflex 10/30/23 * TSH With T4fr Reflex 08/19/23 * Vitamin D 25 Hydroxy 10/30/23 * Vitamin D 25 Hydroxy 08/19/23 * CBC w/ Auto Diff 08/19/23 * C-Reactive Protein 01/15/24 * Free T4 01/15/24 * Vitamin B12 Level 01/15/24 [facility]ments Appointment Date:05/26/2024 11:20:00 AM Scheduled Provider:Vilma John Location:[facility] Appointment Type: Open Appointment Date:05/26/2024 01:00:00 PM Scheduled Provider: Location:[facility] Appointment Type:FM Medicare Wellness Subsequent Future Scheduled Tests Laboratory* TSH With T4fr Reflex 10/30/23 * TSH With T4fr Reflex 08/19/23 * Vitamin D 25 Hydroxy 10/30/23 * Vitamin D 25 Hydroxy 08/19/23 * CBC w/ Auto Diff 08/19/23 [facility] Primary Care Evaluation + Plan note Future Appointments Appointment Date:05/12/2024 02:40:00 PM Scheduled Provider:Vilma John Location:[facility] Appointment Type: Open Appointment Date:05/26/2024 11:20:00 AM Scheduled Provider:Vilma John Location:[facility] Appointment Type: Open Appointment Date:05/26/2024 01:00:00 PM Scheduled Provider: Location:[facility] Appointment Type:FM Medicare Wellness Subsequent Future Scheduled Tests Laboratory* TSH With T4fr Reflex 10/30/23 * TSH With T4fr Reflex 08/19/23 * Vitamin D 25 Hydroxy 10/30/23 * Vitamin D 25 Hydroxy 08/19/23 * CBC w/ Auto Diff 08/19/23 [facility] Family Medicine [place] Evaluation + Plan note Future Appointments Appointment Date:05/26/2024 11:20:00 AM Scheduled Provider:Vilma John Location:[facility] Appointment Type: Open Appointment Date:05/26/2024 01:00:00 PM Scheduled Provider: Location:[facility] Appointment Type:FM Medicare Wellness Subsequent Future Scheduled Tests Laboratory* IgE, Quant 05/12/24 * Complement Total (CH50) 05/12/24 * YOSELIN w/Reflex if POS 05/12/24 * IgA, Quant. 05/12/24 * IgG, Quant. 05/12/24 * IgM, Quant 05/12/24 * TSH With T4fr Reflex 08/19/23 * TSH With T4fr Reflex 05/12/24 * Vitamin D 25 Hydroxy 08/19/23 * Vitamin D 25 Hydroxy 05/12/24 * Basic Metabolic Panel 05/12/24 * CBC w/ Auto Diff 08/19/23 * CBC w/ Auto Diff 05/12/24 [facility] Primary Care Evaluation + Plan note Future Appointments Appointment Date:05/26/2024 11:20:00 AM Scheduled Provider:Vilma John Location:[facility] Appointment Type: Open Appointment Date:05/26/2024 01:00:00 PM Scheduled Provider: Location:[facility] Appointment Type:FM Medicare Wellness Subsequent Diagnostic Tests Pending * Vitamin D 25 Hydroxy 05/13/24 * IgA, Quant. 05/13/24 * IgG, Quant. 05/13/24 * IgM, Quant 05/13/24 * IgE, Quant 05/13/24 * YOSELIN w/Reflex if POS 05/13/24 * Complement Total (CH50) 05/13/24 Future Scheduled Tests Laboratory* TSH With T4fr Reflex 08/19/23 * Vitamin D 25 Hydroxy 08/19/23 * CBC w/ Auto Diff 08/19/23 [facility]ments Appointment Date:08/25/2024 10:00:00 AM Scheduled Provider[facility] Type:FM Open Appointment Date:05/25/2025 02:30:00 PM Scheduled Provider: Location:[facility] Appointment Type: Medicare Wellness Subsequent Future Scheduled Tests Laboratory* TSH With T4fr Reflex 08/19/23 * Vitamin D 25 Hydroxy 08/19/23 * CBC w/ Auto Diff 08/19/23 [facility] Primary Care Evaluation + Plan note Future Appointments Appointment Date:05/25/2025 02:30:00 PM Scheduled Provider: [place] [place] Appointment Type:FM Medicare Wellness Subsequent [facility] Primary Care Evaluation + Plan note Future Appointments Appointment Date:11/03/2024 01:40:00 PM Scheduled Provider:Vilma John [facility] Appointment Type:FM Open Appointment Date:05/25/2025 02:30:00 PM Scheduled Provider: [place] [place] [facility] Appointment Type:FM Medicare Wellness Subsequent [facility] Primary Care Evaluation + Plan note Future Appointments Appointment Date:05/16/2025 08:00:00 AM Scheduled Provider: Location:[facility] Appointment Type:Surgery FT Appointment Date:05/25/2025 02:30:00 PM Scheduled Provider: [place] [place] [facility] Appointment Type:FM Medicare Wellness Subsequent [facility] General Surgery [place] Evaluation + Plan note Future Appointments Appointment Date:12/29/2024 11:00:00 AM Scheduled Provider:ZHOU FONTANEZ Location:[facility] Appointment Type:FM Open Appointment Date:05/16/2025 08:00:00 AM Scheduled Provider: Location:[facility] Appointment Type:Surgery FT Appointment Date:05/25/2025 02:30:00 PM Scheduled Provider: Location:[facility] Appointment Type:FM Medicare Wellness Subsequent [facility] Care Evaluation + Plan note Future Appointments Appointment Date:05/16/2025 08:00:00 AM Scheduled Provider: Location:[facility] Appointment Type:Surgery FT Appointment Date:05/25/2025 02:30:00 PM Scheduled Provider: Location:[facility] Appointment Type: Medicare Wellness Subsequent Future Scheduled Tests Laboratory* DHEA 12/29/24 * Estrogens Total 12/29/24 * TSH With T4fr Reflex 12/29/24 * Vitamin D 25 Hydroxy 12/29/24 * CBC w/ Auto Diff 12/29/24 * Comprehensive Metabolic Panel 12/29/24 * Lipid Panel 12/29/24 * Progesterone Level 12/29/24 * Testosterone Level Total 12/29/24 [facility] Evaluation + Plan note Future Appointments Appointment Date:05/16/2025 08:00:00 AM Scheduled Provider: Location:[facility] Appointment Type:Surgery FT Appointment Date:05/25/2025 02:30:00 PM Scheduled Provider: Location:[facility] Appointment Type: Medicare Wellness Subsequent Future Scheduled Tests Laboratory* DHEA 12/29/24 * Estrogens Total 12/29/24 * TSH With T4fr Reflex 12/29/24 * Vitamin D 25 Hydroxy 12/29/24 * CBC w/ Auto Diff 12/29/24 * Comprehensive Metabolic Panel 12/29/24 * Lipid Panel 12/29/24 * Progesterone Level 12/29/24 * Testosterone Level Total 12/29/24 Radiology* CT Abdomen/Pelvis w/ Contrast 01/19/25 [facility] Evaluation + Plan note Future Appointments Appointment Date:02/02/2025 12:00:00 PM Scheduled Provider: [facility] Type:CT Abdomen/Pelvis Combo (FT) Appointment Date:05/16/2025 08:00:00 AM Scheduled Provider: Location:[facility] Appointment Type:Surgery FT Appointment Date:05/25/2025 02:30:00 PM Scheduled Provider: [place] [place] [facility] Appointment Type:FM Medicare Wellness Subsequent Diagnostic Tests Pending * Estrogens Total 01/28/25 * Testosterone Level Total 01/28/25 * DHEA 01/28/25 Future Scheduled Tests Radiology* CT Abdomen/Pelvis w/ Contrast 02/02/25 [facility] evaluation + Plan note Future Appointments Appointment Date:02/03/2025 12:40:00 PM Scheduled Provider:ZHOU FONTANEZ Location:[facility] Appointment Type:FM Open Appointment Date:05/16/2025 08:00:00 AM Scheduled Provider: Location:[facility] Appointment Type:Surgery FT Appointment Date:05/25/2025 02:30:00 PM Scheduled Provider: [place] [place] [facility] Appointment Type:FM Medicare Wellness Subsequent [facility] evaluation + Plan note Future Appointments Appointment Date:05/16/2025 08:00:00 AM Scheduled Provider: Location:[facility] Appointment Type:Surgery FT Appointment Date:05/25/2025 02:30:00 PM Scheduled Provider: [place] [place] [facility] Appointment Type:FM Medicare Wellness Subsequent [facility] evaluation + Plan note Future Appointments Appointment Date:05/16/2025 08:00:00 AM Scheduled Provider: Location:[facility] Appointment Type:Surgery FT Appointment Date:05/25/2025 03:30:00 PM Scheduled Provider: [place] [place] [facility] Appointment Type:FM Medicare Wellness Subsequent Diagnostic Tests Pending * T3 Free 05/10/25 [facility] evaluation + Plan note Future Appointments Appointment Date:05/16/2025 08:00:00 AM Scheduled Provider: Location:[facility] Appointment Type:Surgery Appointment Date:05/25/2025 03:30:00 PM Scheduled Provider: [place] [place] Appointment Type:FM Medicare Wellness Subsequent Future Scheduled Tests Laboratory* T4 Total 05/03/25 * TSH With T4fr Reflex 05/03/25 * CBC w/ Auto Diff 05/03/25 * Comprehensive Metabolic Panel 05/03/25 * T3 Free 05/03/25 * T3 Uptake 05/03/25 * Free T4 05/03/25 Radiology* US Thyroid 05/03/25 [facility] Evaluation + Plan note Future Appointments Appointment Date:10/31/2025 02:30:00 PM Scheduled Provider: Location:[facility] Appointment Type:FM Medicare Wellness Subsequent Appointment Date:10/31/2026 03:40:00 PM Scheduled Provider:ZHOU FONTANEZ Location:[facility] Appointment Type:[facility] Evaluation note* Diagnosis Bilateral hand pain Pain in limb [facility] noteNo assessment information availableBl[facility] Work Phone: Evaluation note* Diagnosis Coronary artery disease, non-occlusive Coronary atherosclerosis of unspecified type of vessel, [place] or graft Dyslipidemia Other and unspecified hyperlipidemia Essential hypertension Unspecified essential hypertension Mitral valve insufficiency, unspecified etiology Hypothyroidism, unspecified type BMI 23.0-23.9, adult Never smoked tobacco documented in this encounter [facility] Work Phone: Evaluation note* Diagnosis Postoperative visit S/P D&C (status post dilation and curettage) Other postprocedural status documented in this encounter [facility]* Diagnosis Pre-op examination Thickened endometrium Nonspecific (abnormal) findings on radiological and other examination of genitourinary organs Endometrial mass documented in this encounter [facility]* Diagnosis 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 Plantar verruca Pain in right foot Pain in soft tissues of limb Pain in left foot Pain in soft tissues of limb documented in this encounter [facility] HealthcareEvaluation [facility]* Diagnosis Personal history of malignant neoplasm of breast- Primary Abnormal mammogram Abnormal mammogram, unspecified documented in this encounter [facility] HealthcareEvaluation note* Diagnosis 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 Plantar verruca Pain in right foot Pain in soft tissues of limb Pain in left foot Pain in soft tissues of limb documented in this encounter [facility] HealthcareEvaluation note* Diagnosis Well woman exam with routine gynecological exam Routine gynecological examination Postmenopausal state Asymptomatic postmenopausal status (age-related) (natural) Complex ovarian cyst [facility] Narrative No data available for this section [facility] No data available for this section [facility] No data available for this section [facility] HospitalReason for referral (narrative)No reason for referral information availableBl[facility] Work Phone: Summary Purpose Family History Unknown Family Member [...] Recorded Date/ Time Advance Directives Yes July 06, 2 018 4:29pm Advance Directive Response Recorded Date/ Time Advance Directives Yes July 06, 2 018 3:29pm Chief Complaint KERMIT ROSEN is being [...] i10 i25.10 i34 .0 Chief Complaint Z85.3 Chief Complaint Admit Date R92.8 June 14, 2025 2:39 pm Chief Complaint Admit Date R92.8 June 14, 2025 2:39 pm Abnormal Mammogram June 16, 2025 12:1 3pm Reason for Visit Admit Date Breast mass, right June 16, 2025 12:1 3pm Chief Complaint Admit Date R92.8 June 14, 2025 2:39 pm Abnormal Mammogram June 16, 2025 12:1 3pm N63.11 June 23, 2025 12:3 4pm Reason for Visit Admit Date Breast mass, right June 16, 2025 12:1 3pm Breast mass, right June 23, 2025 12:3 4pm Additional Source Comments INFORMATION SOURCE (unrecogn ized section and content) DATE CREATED AUTHOR 05/26/2018 [facility] DATE CREATED AUTHOR AUTHOR'S ORGANIZ ATION 11/11/2019 [facility] DATE CREATED AUTHOR AUTHOR'S ORGANIZ ATION 04/11/2023 [facility] DATE CREATED AUTHOR AUTHOR'S ORGANIZ ATION 07/16/2023 [facility] DATE CREATED AUTHOR AUTHOR'S ORGANIZ ATION 07/16/2023 [facility] DATE CREATED AUTHOR AUTHOR'S ORGANIZ ATION 05/15/2024 [facility] DATE CREATED AUTHOR AUTHOR'S ORGANIZ ATION 05/16/2024 [facility] DATE CREATED AUTHOR AUTHOR'S ORGANIZ ATION 05/21/2024 [facility] DATE CREATED AUTHOR AUTHOR'S ORGANIZ ATION 01/30/2025 [facility] DATE CREATED AUTHOR AUTHOR'S ORGANIZ ATION 02/06/2025 [facility] DATE CREATED AUTHOR AUTHOR'S ORGANIZ ATION 03/15/2025 [facility] DATE CREATED AUTHOR AUTHOR'S ORGANIZ ATION 05/13/2025 [facility] DATE CREATED AUTHOR AUTHOR'S ORGANIZ ATION 05/21/2025 [facility] DATE CREATED AUTHOR AUTHOR'S ORGANIZ ATION 05/25/2025 [facility] DATE CREATED AUTHOR AUTHOR'S ORGANIZ ATION 05/27/2025 [facility] DATE CREATED AUTHOR AUTHOR'S ORGANIZ ATION 06/30/2025 [facility] DATE CREATED AUTHOR AUTHOR'S ORGANIZ ATION 06/30/2025 [facility] DATE CREATED AUTHOR AUTHOR'S ORGANIZ ATION 07/01/2025 [facility] DATE CREATED AUTHOR AUTHOR'S ORGANIZ ATION 07/02/2025 [facility] DATE CREATED AUTHOR AUTHOR'S ORGANIZ ATION 07/23/2025 [facility] EPIC Care Team (unrecognized sect ion and content) Transportation Agent Relationship Specialty Start Date End Date Cristin Roblero HUMAN SERVICES INSTRUCTOR [address] [place] [address] PCP - General Family Medicine 11/20/20 Team Status: Active Member Role Status Dates Camryn De La Rosa , INSTANT PRINTER OPERATOR-C Primary Care Provider Act franc Team Status: Inactive Member Role Status Dates Camryn De La Rosa INSTANT PRINTER OPERATOR-C Primary Care Provider Act franc Jay Jay Pisano MD Attending Provider Active Team Status: Inactive Member Role Status Dates Ryley Marinleli Attending Provider Active Camryn De La Rosa , INSTANT PRINTER OPERATOR-C Primary Care Provider Act franc Transportation Agent Relationship Specialty Start Date End Date Vilma Mcallister NP [address] [place] [address] Referring Physician Family Medicine 11/13/23 Transportation Agent Relationship Specialty Start Date End Date Vilma Mcallister NP [address] [place] [address] Referring Physician Family Medicine 11/13/23 Transportation Agent Relationship Specialty Start Date End Date Vilma Mcallister NP [address] [place] [address] Referring Physician Family Medicine 11/13/23 Transportation Agent Relationship Specialty Start Date End Date Vilma Mcallister NP [address], [place] [address] Referring Physician Family Medicine 11/13/23 Transportation Agent Relationship Specialty Start Date End Date Vilma Mcallister NP [address], [place] [address] Referring Physician Family Medicine 11/13/23 Transportation Agent Relationship Specialty Start Date End Date Reggie Martinez MD [address] [facility] [place] [address] PCP - General Family Medicine 11/18/24 Vilma Mcallister NP [address], [facility] [place] [address] Referring Physician Family Medicine 11/13/23 Transportation Agent Relationship Specialty Start Date End Date Reggie Martinez MD [address] [facility] [place] [address] PCP - General Family Medicine 11/18/24 Vilma Mcallister NP [address], [facility] [place] [address] Referring Physician Family Medicine 11/13/23 Transportation Agent Relationship Specialty Start Date End Date Cristin Roblero CNP [address] [place] [address] PCP - General Family Medicine 11/20/20 Team Status: Active Member Role Status Dates NON STAFF Primary Care Provider Active Team Status: Inactive Member Role Status Dates Ryley Marinelli DO Attending Provider Active Start : June 14, 2025 End: June 14, 2025 NON STAFF Primary Care Provider Active Start: June 14, 2025 End: June 14, 2025 Team Status: Inactive Member Role Status Dates NON STAFF Primary Care Provider Active Start: June 16, 2025 End: June 16, 2025 Bravo Dasilva DO Attending Provider Active Start: June 16, 2025 End: June 16, 2025 Team Status: Inactive Member Role Status Dates NON STAFF Primary Care Provider Active Start: June 23, 2025 End: June 23, 2025 Bravo Dasilva DO Attending Provider Active Start: June 23, 2025 End: June 23, 2025 Transportation Agent Relationship Specialty Start Date End Date Reggie Martinez MD [address] [facility] [place] [address] PCP - General Family Medicine 11/18/24 Vilma Mcallister NP [address], [facility] [place] [address] Referring Physician Family Medicine 11/13/23 Transportation Agent Relationship Specialty Start Date End Date Reggie Martinez MD [address] [facility] [place] [address] PCP - General Family Medicine 11/18/24 Vilma Mcallister NP [address], [facility] [place] [address] Referring Physician Family Medicine 11/13/23 Transportation Agent Relationship Specialty Start Date End Date Reggie Martinez MD [address] [facility] [place] [address] PCP - General Family Medicine 11/18/24 Vilma Mcallister NP [address], [facility] [place] [address] Referring Physician Family Medicine 11/13/23 Transportation Agent Relationship Specialty Start Date End Date Reggie Martinez MD [address] [facility] [place] [address] PCP - General Family Medicine 11/18/24 Vilma Mcallister NP [address], [facility] [place] [address] Referring Physician Family Medicine 11/13/23 Transportation Agent Relationship Specialty Start Date End Date Reggie Martinez MD [address] [place] [address] PCP - General Family Medicine 11/18/24 Vilma Mcallister NP [address] [place] [address] Referring Physician Family Medicine 11/13/23 Source Comments (unrecognize d section and content) In the event this informatio n is protected by the Federal Confidentiality of Alcohol and Drug Abuse Patient Records regulations: The Federal rules restrict any use of the information to criminally investigate or prosecute any alcohol or drug abuse patient.[facility] the event this information is protected by the Federal Confidentiality of Alcohol and Drug Abuse Patient Records regulations: The Federal rules restrict any use of the information to criminally investigate or prosecute any alcohol or drug abuse patient.[facility] Goals (unrecognized section and content) Goals may be documented in a n alternate section Reason for Visit (unrecogniz ed section and content) Reason Comments Annual Exam Reason Comments Post-op Visit Pt present today for post operative visit. Pt had a D&C on 11/05/2024. Reason Comments Pre-op Visit Reason Comments Plantar Warts F/U lesions Reason Comments Referral Request ESD Reason Comments Right breast bx results Breast clinic pa tient Reason Comments Foot Callouses B/L callus on feet Reason Comments Well Women Visit FOR RECORDS PERTAINING TO PATIENTS WHO ARE [...] BE BASED ON THE PRIMARY CLINICAL RECORDS. [facility] [employer] [facility]. provides no warranty or guarantee of the accuracy or completeness of information in this document.
[2025-08-25 15:09] LABS: Age Gdln ACOG Testing Note (.); Pap IG (Image Guided) Note (.)
== END 2025-08-18 19:34 | disposition home or self-care (01) ==
LOC: LAB 19:33
PROVIDERS: Visit Provider Physician Assistant
DX: Z01.419 Encounter for gynecological examination (general) (routine) without abnormal findings (principal)
CPT/HCPCS: 88175